=== PATIENT | female | born 2005 | race Caucasian/White ===

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

== ENCOUNTER 2024-01-14 06:03 | Day surgery (SDC) | payer BC, SELFPAY ==
[2023-12-31 10:36] VITALS: BP 114/74; PULSE 99; TEMP 36.5; O2SAT 100; BMI 36.7
[2024-01-14] VITALS (23 sets, daily range): BP systolic 98–146; BP diastolic 48–107; PULSE 90–158; TEMP 36.4–36.6; O2SAT 92–100; BMI 36.8
--- OUTSIDE RECORDS SUMMARY | 2024-01-14 06:06 | XMS_ITS | CCD ---
Author Organization [facility] Care Team Providers Care Lost Charge Card Clerk Name Role Phone Damian Jas Hewitt Primary Care Provider MANA AGUILAR Referring Unavailable JAS SALGADO Primary Care Unavailable MANA AGUILAR Referring Unavailable DAMIAN JAS Hewitt Primary Care Unavailable Schwmabler, Aime Unavailable Gerald Barboza Unavailable Power Ny Attending Unavailable KEVIN STOKES Primary Care Unavailable Power Ny Admitting Unavailable ELIJAH Rodriguez Admitting Unavailable ELIJAH Rodriguez Attending Unavailable KEVIN STOKES Primary Care Unavailable Denver Aime E Primary Care Unavailable ELIJAH Rodriguez Admitting Unavailable ELIJAH Rodriguez Attending Unavailable KATHLEEN LUNDBERG Admitting Unavailable DIVYA, KEVIN A Primary Care Unavailable KATHLEEN LUNDBERG Attending Unavailable Africa Del Cid L Admitting Unavailable Africa Del Cid L Attending Unavailable KEVIN STOKES A Primary Care Unavailable KATHLEEN LUNDBERG Admitting Unavailable KATHLEEN LUNDBERG Attending Unavailable KEVIN STOKES A Primary Care Unavailable KEVIN STOKES A Primary Care Unavailable Spasic PA, Levy Admitting Unavailabl e Spasic PA, Levy Attending Unavailabl e KEVIN STOKES A Primary Care Unavailable Spasic PA, Levy Admitting Unavailabl e Spasic PA, Levy Attending Unavailabl e DO Kevin Stokes Primary Care Provider [phone] DO Braxton Toussaint Attending Provider Braxton Toussaint Attending Unavailable Braxton Toussaint Admitting Unavailable Braniesheroni, Kevin Primary Care Unavailable Schwerer DO, Aime E Primary Care Provider [phone] [facility] [employer] INST[employer], [facility] Primary Care Provider Catarina [employer]ST[employer], [facility] Primary Care Provider CATARINA, ANITA Primary Care Unavailable YESI PIZANO Attending Unavail able CATARINA, ANITA Primary Care Unavailable PRENDES, LATASHA L Referring Unavailable SCHWERER, AIME E Primary Care Unavailable PRENDES, LATASHA L Attending Unavailable JAS SALGADO Primary Care Unavailable PRENDES, LATASHA L Attending Unavailable CATARINA, ANITA Primary Care Unavailable PRENDES, LATASHA L Referring Unavailable CATARINA, ANITA Primary Care Unavailable PRENDES, LATASHA L Referring Unavailable CATARINA, ANITA Primary Care Unavailable PRENDES, LATASHA L Attending Unavailable SCHWERER, AIME E Primary Care Unavailable PRENDES, LATASHA L Admitting Unavailable CATARINA, ANITA L Attending Unavailable ASIF STOKESEW A Referring Unavailable CATARINA, ANITA L Primary Care Unavailable ALVERTO TOUSSAINT Attending Unavailable CATARINA, ANITA L Referring Unavailable CATARINA, ANITA L Primary Care Unavailable CATARINA, ANITA L Attending Unavailable CATARINA, ANITA L Referring Unavailable CATARINA, ANITA L Primary Care Unavailable CATARINA, ANITA L Referring Unavailable CATARINA, ANITA L Primary Care Unavailable ADOLFO JAIN Attending Unavailable ADOLFO JAIN Attending Unavailable ADOLFO JAIN Attending Unavailable Allergies Allergy Classification Reported Allergen(s) Allergy Type Date of Onset Reaction(s) Facility (1 source) No Known Medication Allergies; Translations: [No Known Medication Allergies] Propensity to adverse reactions to drug (disorder) [facility] Repository Medications Current Medications Medication Drug Class(es) Dates Sig (Normalized) Sig (Original) 0.25 MG, 0.5 MG Dose 3 ML semaglutide 0.68 MG/ML Pen Injector [Ozempic] (3 sources) Start: 01-15-2023 inject 0.25 mg by subcutaneous injection every week, then inject 0.5 mg by subcutaneous injection every week Ozempic (0.25 or 0.5 MG/DOSE) 2 MG/3ML as directed Subcutaneous weekly for 30 days 0.25mg x weekly x 4 weeks then 0.5mg weekly Jan, Active cephalexin 500 mg oral capsule (1 source) Cephalosporin Antibacterial Start: 01-30-2023 take 1 capsule by mouth every twelve hours Cephalexin 500 MG 1 capsule Orally every 12 hrs for 10 days Jan, Active hydrOXYzine pamoate 25 mg oral capsule (9 sources) Antihistamine Start: 02-05-2023 take 1 capsule by mouth every twenty-four hours Vistaril 25 MG 1 capsule at bedtime as needed Orally Once a day Jan, Active Comment on above: Take 25 mg by mouth once daily. naproxen 500 mg oral tablet (1 source) Nonsteroidal Anti-inflammatory Drug Start: 12-08-2017 take 1 tablet by mouth twice daily Naproxen (Naprosyn) 500 mg tablet Active 500 MG PO Twice daily December 08, 2017 12:00am omeprazole 40 mg delayed release oral capsule (8 sources) Proton Pump Inhibitor Start: 04-02-2023 take 1 capsule by mouth once daily Omeprazole 40 MG 1 capsule 30 minutes before morning meal Orally Once a day for 30 days Mar, Active Comment on above: Take 40 mg by mouth once daily. ondansetron 4 mg disintegrating oral tablet (10 sources) Serotonin-3 Receptor Antagonist Start: 04-02-2023 take 1 tablet by mouth three times daily as needed for nausea Ondansetron 4 MG 1 tablet on the tongue and allow to dissolve Orally TID PRN nausea for 5 days Mar, Active Start: 12-08-2017 Ondansetron (Z ofran Odt) 4 mg Tablet,Disintegrating Active 4 MG PO 2-3 TIMES PER DAY December 08, 2017 12:00am Start: 12-08-2017 End: 12-13-2017 take 1 tablet by mouth every eight hours Ondansetron Hcl (Zofran) 4 mg tablet Discontinued 4 MG PO Q8H 15 December 08, 2017 12:00am December 13, 2017 12:01am Comment on above: Take 4 mg by mouth e very 8 hours as needed for nausea/vomiting. sertraline 50 mg oral tablet (8 sources) Serotonin Reuptake Inhibitor Start: take 1 tablet by mouth every twenty-four hours Zoloft 50 MG 1 tablet Orally Once a day for 90 days Mar, Active Start: 04-02-2023 take 0.5 tablet by m outh once daily, then take 1 tablet by mouth once daily Zoloft 50 MG as directed Orally Once a day for 30 days 0.5 tablets PO daily x 1 week then 1 full tablet daily. Mar, Active Comment on above: Take 50 mg by mouth once daily. Completed/Discontinued Medications Medication Drug Class(es) Dates Sig (Normalized) Sig (Original) Ethinyl Estradiol / norgestimate (10 sources) Progestin, Estrogen Start: 06-02-2018 End: 08-25-2023 Norgestimate-Ethin yl Estradiol 0.18/0.215/0.25 mg-35 mcg (28) tab Start: 06-02-2018 Norgestimate-E thinyl Estradiol 0.18/0.215/0.25 mg-35 mcg (28) tab levothyroxine sodium 0.15 mg oral tablet (3 sources) l-Thyroxine Start: 09-04-2023 End: 11-03-2023 take 1 tablet by mouth once daily in the morning levothyroxine (SYNTHROID) 150 mcg tablet Take 1 tablet by mouth daily at 6 am. 30 tablet 0 09/04/2023 10/04/2023 Discontinued nitrofurantoin, macrocrystals 25 mg / nitrofurantoin, monohydrate 75 mg oral capsule (1 source) Nitrofuran Antibacterial Start: 09-09-2023 End: 09-14-2023 take 1 capsule by mouth twice daily nitrofurantoin monohydrate and macrocrystal (MACROBID) 100 mg capsule Take 1 capsule by mouth two times a day for 5 days. 10 capsule 0 09/09/2023 09/14/2023 oxyCODONE hydrochloride 5 mg oral tablet (1 source) Opioid Agonist Start: 09-04-2023 End: 09-09-2023 take 1 tablet by mouth every six hours as needed oxyCODONE IR (ROXICODONE) 5 mg immediate release tablet Indications: Post-op pain Take 1 tablet by mouth every 6 hours as needed for up to 5 days. 15 tablet 0 09/04/2023 09/09/2023 Problems Active Problems Problem Classification Problem Date Documented Date Episodic/Chronic Acute and chronic tonsillitis (13 sources) Hypertrophy of tonsils; Translations: [Hypertrophy of tonsils] Onset: 05-13-2017 06-23-2018 Chronic Anxiety disorders (8 sources) Generalized anxiety disorder; Translations: [Generalized anxiety disorder] Onset: 08-25-2023 Chronic Complications of surgical procedures or medical care (2 sources) Postprocedural hypothyroidism; Translations: [Postprocedural hypothyroidism] Onset: 10-28-2023 Chronic Esophageal disorders (12 sources) Gastroesophageal reflux disease; Translations: [Gastro-esophageal reflux disease without esophagitis] Onset: 08-25-2023 Chronic Fever of unknown origin (1 source) Fever Onset: 09-28-2023 Episodic Menstrual disorders (5 sources) Irregular periods; Translations: [Irregular menstruation, unspecified] Chronic Mood disorders (11 sources) Mild major depression; Translations: [Major depressive disorder, single episode, mild] Onset: 08-25-2023 Chronic Mycoses (1 source) Tinea pedis; Translations: [Tinea pedis] Onset: 10-28-2023 Episodic Other endocrine disorders (1 source) Polycystic ovary syndrome; Translations: [Polycystic ovarian syndrome] 08-18-2023 Chronic Other endocrine disorders (1 source) Polycystic ovarian syndrome; Translations: [PCOS (polycystic ovarian syndrome)] Onset: 08-18-2023 Chronic Other female genital disorders (5 sources) Female genital organ symptoms; Translations: [Unspecified condition associated with female genital organs and menstrual cycle] Episodic Other lower respiratory disease (1 source) Cough Onset: 09-28-2023 Episodic Other nervous system disorders (1 source) Other acute postprocedural pain; Translations: [Post-op pain] Onset: 09-03-2023 Episodic Other nutritional; endocrine; and metabolic disorders (15 sources) Obese; Translations: [Obesity, unspecified] Onset: 04-15-2022 Chronic Other nutritional; endocrine; and metabolic disorders (2 sources) Obesity, unspecified; Translations: [Obesity, pediatric, BMI greater than or equal 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] Onset: 04-15-2022 Chronic Other nutritional; endocrine; and metabolic disorders (5 sources) Body mass index 40+ - severely obese; Translations: [Body mass index (BMI) 40.0-44.9, adult] Chronic Other nutritional; endocrine; and metabolic disorders (2 sources) Body mass index (BMI) 40.0-44.9, adult Chronic Other nutritional; endocrine; and metabolic disorders (1 source) Other obesity due to excess calories; Translations: [Other obesity due to excess calories] Onset: 08-25-2023 Chronic Other nutritional; endocrine; and metabolic disorders (1 source) Body mass index (BMI) 38.0-38.9, adult; Translations: [Body mass index (BMI) 38.0-38.9, adult] Onset: 08-25-2023 Chronic Other nutritional; endocrine; and metabolic disorders (1 source) Personal history of other endocrine, nutritional and metabolic disease; Translations: [History of thyroid nodule] Onset: 04-15-2022 Episodic Other nutritional; endocrine; and metabolic disorders (1 source) Abnormal weight gain Episodic Other skin disorders (1 source) Localized swelling, mass and lump, neck Episodic Other upper respiratory disease (1 source) Pain in throat Onset: 09-28-2023 Episodic Other upper respiratory disease (1 source) Nasal congestion Onset: 09-28-2023 Episodic Other upper respiratory infections (1 source) Acute frontal sinusitis, unspecified; Translations: [Acute frontal sinusitis, unspecified] Onset: 09-28-2023 Episodic Residual codes; unclassified (2 sources) High risk heterosexual behavior; Translations: [High risk heterosexual behavior] Onset: 10-28-2023 Episodic Residual codes; unclassified (1 source) Other general symptoms and signs; Translations: [Other general symptoms and signs] Onset: 09-28-2023 Episodic Thyroid disorders (20 sources) Thyroid nodule; Translations: [Nontoxic single thyroid nodule] Onset: 06-23-2018 06-23-2018 Chronic Unclassified (1 source) Annual Exam Onset: 10-28-2023 Unclassified (1 source) Acute candidiasis of vulva and vagina; Translations: [Acute candidiasis of vulva and vagina] Onset: 09-28-2023 Unclassified (1 source) Generalized Body Aches Onset: 09-28-2023 Unclassified (1 source) New Patient Onset: 08-25-2023 Past or Other Problems Problem Classification Problem Date Documented Da te Episodic/Chronic Other nervous system disorders (13 sources) History of otitis media; Translations: [Personal history of other diseases of the nervous system and sense organs] Onset: 05-13-2017 06-23-2018 Episodic Other nutritional; endocrine; and metabolic disorders (17 sources) H/O: thyroid disorder; Translations: [Personal history of other endocrine, nutritional and metabolic disease] Onset: 04-15-2022 Episodic Other nutritional; endocrine; and metabolic disorders (2 sources) Body mass index (BMI) pediatric, greater than or equal 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; Translations: [Obesity, pediatric, BMI greater than or equal 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] Onset: 04-15-2022 Episodic Other screening for suspected conditions (not mental disorders or infectious disease) (18 sources) Thyroid function tests abnormal; Translations: [Other specified abnormal findings of blood chemistry] Onset: 04-15-2022 Episodic Otitis media and related conditions (13 sources) Dysfunction of bilateral eustachian tubes; Translations: [Other specified disorders of Eustachian tube, bilateral] Onset: 05-13-2017 06-23-2018 Episodic Residual codes; unclassified (13 sources) FH: Thyroid disorder; Translations: [Family history of other endocrine, nutritional and metabolic diseases] Onset: 06-23-2018 06-23-2018 Episodic Results Test Name Value Interpretation Reference Range Facility CHLAMYDIA/GC PCR, Uon 2023 CHLAMYDIA/GC PCR, U SPECIMEN SOURCE CLEAN CATCH MIDSTREAM URINE CHLAMYDIA DNA(PCR) Negative (qualifier value) Chlamydia trachomatis not detected by nucleic acid amplification. This does not exclude the possibility of infection because results are dependent on adequate specimen collection. GONORRHOEAE DNA(PCR) Negative (qualifier value) Neisseria gonorrhoeae not detected by nucleic acid amplification. This does not exclude the possibility of infection because results are dependent on adequate specimen collection. Normal [facility] Comment on above: Performed By: #### C #### [facility] ([id number]) [address], [address] [place] [address] COMPREHENSIVE METABOLIC PANE [place] 10-28-2023 Albumin [Mass/Vol] 4.4 g/dL Normal 3.2-5.3 [facility] Comment on above: Performed By: #### [place], 59921-6, TSHR, 3024-7 #### [facility] ([id number]) [address], [address] [place] [address] ALP [Catalytic activity/Vol] 64 U/L Normal 39-130 [facility] Comment on above: Performed By: #### C VINCENT, 71154-9, TSHR, 4-7 #### [facility] ([id number]) [address], [address] [place] [address] ALT [Catalytic activity/Vol] 18 U/L Normal 0-31 [facility] Comment on above: Performed By: #### C VINCENT, 51748-9, TSHR, 3023-7 #### [facility] ([id number]) [address], [address] [place] [address] Anion gap [Moles/Vol] 10 mmol/L Normal 5-15 [facility] Comment on above: Performed By: #### C VINCENT, 88264-2, TSHR, 3023-7 #### [facility] ([id number]) [address], [address] [place] [address] AST [Catalytic activity/Vol] 16 U/L Normal 0-41 [facility] Comment on above: Performed By: #### C VINCENT, 86049-4, TSHR, 7 #### [facility] ([id number]) [address], [address] [place] [address] Bilirubin [Mass/Vol] 0.4 mg/dL Normal 0.3-1.2 [facility] Comment on above: Performed By: #### C VINCENT, 19331-5, TSHR, 7 #### [facility] ([id number]) [address], [address] [place] [address] Calcium [Mass/Vol] 9.8 mg/dL Normal 8.5-10.5 [facility] Comment on above: Performed By: #### C VINCENT, 20149-8, TSHR, 3023-7 #### [facility] ([id number]) [address], [address] [place] [address] Chloride [Moles/Vol] 102 mmol/L Normal 98-109 [facility] Comment on above: Performed By: #### C VINCENT, 45630-7, TSHR, 7 #### [facility] ([id number]) [address], [address] [place] [address] CO2 [Moles/Vol] 25 mmol/L Normal 22-32 [facility] Comment on above: Performed By: #### C VINCENT, 06526-2, TSHR, 7 #### [facility] ([id number]) [address], [address] [place] [address] Creatinine [Mass/Vol] 0.65 mg/dL Normal 0.40-1.00 [facility] Comment on above: Result Comment: METH OD TRACEABLE TO IDMS STANDARD Performed By: #### C VINCENT, 69318-8, TSHR, 7 #### [facility] ([id number]) [address], [address] [place] [address] eGFR (CKD-EPI) NON-RACE DEPENDENT >90 Normal >59 [facility] Comment on above: Result Comment: Reported eGFR is based on the CKD-EPI 2020 equation that does not use a race coefficient. Performed By: #### C VINCENT, 57363-6, TSHR, 7 #### [facility] ([id number]) [address], [address] [place] [address] Glucose [Mass/Vol] 80 mg/dL Normal 65-99 [facility] Comment on above: Performed By: #### C VINCENT, 72598-3, TSHR, 7 #### [facility] ([id number]) [address] [place] [address] Potassium [Moles/Vol] 4.1 mmol/L Normal 3.5-5.0 [facility] Comment on above: Performed By: #### C VINCENT, 77183-9, TSHR, 7 #### [facility] ([id number]) [address], [address] [place] [address] Protein [Mass/Vol] 7.3 g/dL Normal 6.0-8.0 [facility] Comment on above: Performed By: #### C MP, 62320-6, TSHR, 3024-7 #### [facility] ([id number]) [address], [address] [place] [address] Sodium [Moles/Vol] 137 mmol/L Normal 134-146 [facility] Comment on above: Performed By: #### C VINCENT, 16882-1, TSHR, 3024-7 #### [facility] ([id number]) [address] [facility] [address] [place] [address] Urea nitrogen [Mass/Vol] 12 mg/dL Normal 5-23 [facility] Comment on above: Performed By: #### C VINCENT, 51911-1, TSHR, 3024-7 #### [facility] ([id number]) [address], [address] [place] [address] FREE T4on 10-28-2023 Free T4 [Mass/Vol] 0.73 ng/dL Normal 0.61-1.60 [facility] Comment on above: Performed By: #### C VINCENT, 23824-9, TSHR, 3024-7 #### [facility] ([id number]) [address] [place] [address] Lipid 1996 panelon Cholesterol [Mass/Vol] 157 mg/dL Normal 150-200 [facility] Comment on above: Performed By: #### C VINCENT, 19370-0, TSHR, 3024-7 #### [facility] ([id number]) [address] [address] [place] [address] Cholesterol in HDL [Mass/Vol] 56 mg/dL Normal >39 [facility] Comment on above: Result Comment: HDL <40 mg/dL - High Risk HDL > or = 40mg/dL- Desirable HDL >60 mg/dL - Negative Risk Performed By: #### Joseline KAUR, 71831-2, TSHR, 3024-7 #### [facility] ([id number]) [address] [facility] [address] [place] [address] Cholesterol in LDL [Mass/Vol] 85 mg/dL Normal <130 [facility] Comment on above: Result Comment: LDL <100 mg/dL - Desirable LDL >160 mg/dL - High Risk Performed By: #### Joseline KAUR, 87249-6, TSHR, 3024-7 #### [facility] ([id number]) [address] [address] [place] [address] Cholesterol in VLDL [Mass/Vol] 16 mg/dL Normal 0-30 [facility] Comment on above: Performed By: #### Joseline KAUR, 69806-7, TSHR, 3024-7 #### [facility] ([id number]) [address] [address] [place] [address] CHOLESTEROL:HDL 2.8 Normal 1.0-5.0 [facility] Comment on above: Performed By: #### Joseline KAUR, 00804-5, TSHR, 3024-7 #### [facility] ([id number]) [address] [address] [place] [address] Triglyceride [Mass/Vol] 80 mg/dL Normal 27-150 [facility] Comment on above: Performed By: #### Joseline KAUR, 40421-7, TSHR, 3024-7 #### [facility] ([id number]) [address] [place] [address] TRICHOMONAS PCRon 10-28-2023 TRICHOMONAS PCR SPECIMEN SOURCE CLEAN CATCH MIDSTREAM URINE TRICHOMONAS PCR Not detected (qualifier value) Trichomonas vaginalis not detected NOTE Assay methodology is nucleic acid amplification by real-time PCR for detection of Trichomonas vaginalis DNA performed on [employer] Instrument System. Normal [facility] Comment on above: Performed By: #### T RKPCR #### [facility] ([id number]) [address], [address] [place] [address] TSH WITH REFLEXon 10-28-2023 TSH 22.23 uIU/mL High 0.49-4.67 [facility] Comment on above: Performed By: #### C MP, 66621-2, TSHR, 3024-7 #### [facility] ([id number]) [address], [address] [place] [address] CNOVon 09-09-2023 CNOV Office Visit (OTMNCA ) SHEYLA LEA ([id number]) 3 F Date Time Provider Department 09/09/23 4:00 PM LATASHA BOBO OTMNCA During your visit today, we recorded the following information about you: Georgia Lazcano OCCA 09/09/2023 4:08 PM Signed Tobacco Use: Never Was smoking cessation packet given? N/A - Patient is a non-smoker or quit >1 year ago. Was a referral initiated?N/A Patient is a non-smoker Latasha Bobo MD 10/15/2023 12:28 AM Signed [facility] Note CC: Post op of total thyroidectomy performed on 09/03/23 HPI: Patient is a 18 year old female with thyroid nodules with pain and tenderness along the neck. She underwent total thyroidectomy 09/02. She has been recovering relatively well though she does still have some pain along the incision. Voice has been raspy. No dysphagia. Pathology: FINAL DIAGNOSIS A. Pretracheal lymph node, excision: - Fibroadipose tissue with one benign lymph node. B. 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 Current Outpatient Medications Medication Sig Dispense Refill levothyroxine (SYNTHROID) 150 mcg tablet Take 1 tablet by mouth daily at 6 am. 30 tablet 0 omeprazole (PRILOSEC) 40 mg capsule Take 40 mg by mouth once daily. ondansetron (ZOFRAN) 4 mg tablet Take 4 mg by mouth every 8 hours as needed for nausea/vomiting. hydrOXYzine pamoate (VISTARIL) 25 mg capsule Take 25 mg by mouth once daily. sertraline (ZOLOFT) 50 mg tablet Take 50 mg by mouth once daily. nitrofurantoin monohydrate and macrocrystal (MACROBID) 100 mg capsule Take 1 capsule by mouth two times a day for 5 days. 10 capsule 0 oxyCODONE IR (ROXICODONE) 5 mg immediate release tablet Take 1 tablet by mouth every 6 hours as needed for up to 5 days. (Patient not taking: Reported on 09/09/2023) 15 tablet 0 No current facility-administered medications for this visit. EXAM: Constitutional - General Appearance: well developed, well nourished, without obvious deformities Communication: speaks with a normal voice without hoarseness Head AND Face - Overall: no obvious scars, lesions or masses Facial strength: normal and equal bilaterally Oral Cavity and oropharynx: mucosa, hard and soft palates, tongue, tonsil area, posterior pharyngeal wall, lips and gums are without lesions Neck: appears symmetric, and on palpation is without masses or lymphadenopathy. Well-healing midline neck scar with ongoing erythema Neuro: CN III - CN XII grossly intact Procedure: Flexible Laryngoscopy Pre-procedure diagnosis: S/p total thyroidectomy Post-procedure diagnosis: same Indications: Evaluation of the larynx and immediate subglottis - unable to be visualized by mirror examination Anesthesia: Lidocaine and Phenylephrine Procedure: Topical anesthesia and vasoconstriction was applied with spray to both sides of the nose. After waiting an appropriate period of time for anesthesia/vasoconstriction to become effective, a flexible laryngoscope was passed through the left nasal passage. Findings: The nasal cavity and nasopharynx were normal. No masses or lesions were visualized at the base of tongue, vallecula, epiglottis, aryepiglottic folds, pyriform sinuses, and lateral pharyngeal dumont. True vocal cord movement was intact bilaterally. The patient's airway was widely patent with no evidence of obstruction. Patient tolerated the procedure well, and there were no complications. The procedure was performed by me. I was present for the entirety of the endoscopy/procedure and discussed the results with the patient. Latasha Bobo MD ASSESSMENT: Sheyla Lea is a 18 year old female with a history of Hellen's thyroiditis now s/p total thyroidectomy. Final pathology benign. PLAN AND RECOMMENDATIONS: Follow-up in 3 months Discussed scar care. Vocal cords fully mobile on scope Synthroid management per endocrinology Brenda Mendoza for the service of Latasha Bobo MD Otolaryngology Staff Attestation Details as per Dr. Mendoza's note which I have reviewed and edited. I performed a history and physical examination of the patient and discussed the patient's management with the resident. I agree with the documented findings and treatment plan. Latasha Bobo MD Allergies As of Date: 09/09/2023 (No Known Allergies) Date Reviewed: 09/09/2023 Reviewed by: Georgia Lazcano OCCA - Fully Assessed Reason for Visit: Follow Up [171] Cmt: Post op Primary Visit Diagnosis:Hypothyroidism (acquired) [E03.9] Order(s):[] nitrofurantoin monohydrate and macrocrystal (MACROBID) 100 mg capsuleTake 1 capsule by mouth two times a day for 5 days.Disp: 10 capsuleRfl: 0 THYROID STIMULATING HORMONE [SQTSH] Order #: [id number] FUTURE PTH INTACT [SQPTHI] Order #: [id number] FU (more content not included)... Normal [facility] Basic metabolic 2000 panelon 09-04-2023 Anion gap [Moles/Vol] 12 mmol/L Normal 9-18 [facility] Comment on above: Order Comment: Speci men Type: BLOOD SPECIMENOrdering Facility: [facility] Address: [address] [place] [address] [place], [place] [address] Performed By: #### 2 777-1, 80672-4, ####[facility] LABCLIA [id number] [address] [address] [place] Calcium [Mass/Vol] 8.7 mg/dL Normal 8.5-10.2 [facility] Comment on above: Order Comment: Speci men Type: BLOOD SPECIMENOrdering Facility: [facility] Address: [address] [place], [place] [id number] Performed By: #### 2 777-1, , ####[facility] LABCLIA [id number] [address] [address] [place] Chloride [Moles/Vol] 106 mmol/L High 97-105 [facility] Comment on above: Order Comment: Speci men Type: BLOOD SPECIMENOrdering Facility: [facility] Address: [address] [place] [address] Performed By: #### 2 777-1, , ####[facility] LABIA [id number] [place] [id number] [place] CO2 [Moles/Vol] 21 mmol/L Low 22-30 [facility] Comment on above: Order Comment: Speci men Type: BLOOD SPECIMENOrdering Facility: [facility] Address: [address] [place] [address] Performed By: #### 2 777-1, , ####[facility] LABIA [id number] [address] [address] [place] Creatinine [Mass/Vol] 0.59 mg/dL Normal 0.58-0.96 [facility] Comment on above: Order Comment: Speci men Type: BLOOD SPECIMENOrdering Facility: [facility] Address: [address] [place], [place] [address] Performed By: #### 2 777-1, 68046-9, ####[facility] LABCLIA [id number] [place] [address] [place] Creatinine and Glomerular filtration rate.predicted panel (S/P/Bld) 133 mL/min/1.73m??? Normal >=60 [facility] Comment on above: Order Comment: Harriet abernathy Type: BLOOD SPECIMENOrdering Facility: [facility] Address: [address] [place] [address] Result Comment: Akila mated Glomerular Filtration Rate (eGFR) is calculated using the 2020 CKD-EPI creatinine equation. This equation utilizes serum creatinine, sex, and age as parameters. The creatinine assay has traceable calibration to isotope dilution-mass spectrometry. Refer to KDIGO guidelines for clinical interpretation. In patients with unstable renal function, e.g. those with acute kidney injury, the eGFR may not accurately reflect actual GFR. Performed By: #### 2 777-1, 47592-1, ####[facility] LABCLIA [id number] [place] [address] [place] Glucose [Mass/Vol] 85 mg/dL Normal 74-99 [facility] Comment on above: Order Comment: Harriet abernathy Type: BLOOD SPECIMENOrdering Facility: [facility] Address: [address] [place] [address] Result Comment: The [place] [employer] (ADA) provides guidance for cutoff values for fasting glucose and random glucose. The ADA defines fasting as no caloric intake for at least 8 hours. Fasting plasma glucose results between 100 to 125 mg/dL indicate increased risk for diabetes (prediabetes). Fasting plasma glucose results greater than or equal to 126 mg/dL meet the criteria for diagnosis of diabetes. In the absence of unequivocal hyperglycemia, results should be confirmed by repeat testing. In a patient with classic symptoms of hyperglycemia or hyperglycemic crisis, random plasma glucose results greater than or equal to 200 mg/dL meet the criteria for diagnosis of diabetes. Reference: Standards of Medical Care in Diabetes 2016, [place] [employer]. Diabetes Care. 2016.39(Suppl 1). Performed By: #### 2 777-1, 25391-7, ####[facility] LABCLIA [id number] [place] [address] [place] Potassium [Moles/Vol] 3.9 mmol/L Normal 3.7-5.1 [facility] Comment on above: Order Comment: Speci men Type: BLOOD SPECIMENOrdering Facility: [facility] Address: [address] [place] [address] Performed By: #### 2 777-1, 34383-6, ####[facility] LABIA [id number] [place] [address] [place] Sodium [Moles/Vol] 139 mmol/L Normal 136-144 [facility] Comment on above: Order Comment: Speci men Type: BLOOD SPECIMENOrdering Facility: [facility] Address: [address] [place] [address] Performed By: #### 2 777-1, 04727-7, ####[facility] LABIA [id number] [place] [address] [place] Urea nitrogen [Mass/Vol] 6 mg/dL Low 7-21 [facility] Comment on above: Order Comment: Speci men Type: BLOOD SPECIMENOrdering Facility: [facility] Address: [address] [place] [address] Performed By: #### 2 777-1, 88825-8, 07211-2 ####[facility] LABIA [id number] [place] [address] [place] CBC panel Auto (Bld)on 09-03 Erythrocyte distribution width (RBC) [Ratio] 14.4 % Normal 11.5-15.0 [facility] Comment on above: Order Comment: Speci men Type: BLOOD SPECIMENOrdering Facility: [facility] Address: [address] [place] [address] Performed By: #### 5 8410-2 ####[facility] LABIA [id number] [address] [place] Hematocrit (Bld) [Volume fraction] 38.9 % Normal 36.0-46.0 [facility] Comment on above: Order Comment: Speci men Type: BLOOD SPECIMENOrdering Facility: [facility] Address: [address] [place] [address] Performed By: #### 5 8410-2 ####[facility] LABCLIA [id number] [place] [address] [place] Hemoglobin (Bld) [Mass/Vol] 12.4 g/dL Normal 11.5-15.5 [facility] Comment on above: Order Comment: Speci men Type: BLOOD SPECIMENOrdering Facility: [facility] Address: [address] [place] [address] Performed By: #### 5 8410-2 ####[facility] LABCLIA [id number] [place] [address] [place] MCH (RBC) [Entitic mass] 25.6 pg Low 26.0-34.0 [facility] Comment on above: Order Comment: Speci men Type: BLOOD SPECIMENOrdering Facility: [facility] Address: [address] [place] [address] Performed By: #### 5 8410-2 ####[facility] LABIA [id number] [place] [address] [place] MCHC (RBC) [Mass/Vol] 31.9 g/dL Normal 30.5-36.0 [facility] Comment on above: Order Comment: Speci men Type: BLOOD SPECIMENOrdering Facility: [facility] Address: [address] [place] [address] Performed By: #### 5 8410-2 ####[facility] LABCLIA [id number] [place] [address] [place] MCV (RBC) [Entitic vol] 80.2 fL Normal 80.0-100.0 [facility] Comment on above: Order Comment: Speci men Type: BLOOD SPECIMENOrdering Facility: [facility] Address: [address] [place] [address] Performed By: #### 5 8410-2 ####[facility] LABIA [id number] [place] [address] [place] Nucleated RBC (Bld) [#/Vol] 10*3/uL Normal <0.01 [facility] Comment on above: Order Comment: Speci men Type: BLOOD SPECIMENOrdering Facility: [facility] Address: [address] [place] [address] Performed By: #### 5 8410-2 ####[facility] LABIA [id number] [place] [address] [place] Platelet mean volume (Bld) [Entitic vol] 11.2 fL Normal 9.0-12.7 [facility] Comment on above: Order Comment: Speci men Type: BLOOD SPECIMENOrdering Facility: [facility] Address: [address] [place] [address] Performed By: #### 5 8410-2 ####[facility] LABIA [id number] [place] [address] [place] Platelets (Bld) [#/Vol] 241 10*3/uL Normal 150-400 [facility] Comment on above: Order Comment: Speci men Type: BLOOD SPECIMENOrdering Facility: [facility] Address: [address] [place] [address] Performed By: #### 5 8410-2 ####[facility] LABIA [id number] [place] [address] [place] RBC (Bld) [#/Vol] 4.85 10*6/uL Normal 3.90-5.20 [facility] Comment on above: Order Comment: Speci men Type: BLOOD SPECIMENOrdering Facility: [facility] Address: [address] [place] [address] Performed By: #### 5 8410-2 ####[facility] LABCLIA [id number] [address] [address] [place] WBC (Bld) [#/Vol] 6.31 10*3/uL Normal 3.70-11.00 [facility] Comment on above: Order Comment: Speci men Type: BLOOD SPECIMENOrdering Facility: [facility] Address: [address] [place] [address] Performed By: #### 5 8410-2 ####[facility] LABIA [id number] [address] [address] [place] Magnesium SerPl-ncon 09-03 Magnesium [Mass/Vol] 2.1 mg/dL Normal 1.7-2.3 [facility] Comment on above: Order Comment: Speci men Type: BLOOD SPECIMENOrdering Facility: [facility] Address: [address] [place] [address] Performed By: #### 2 777-1, 34317-6, ####[facility] [id number] [place] [id number] [place] Phosphate SerPl-mCncon 09-03 Phosphate [Mass/Vol] 3.3 mg/dL Normal 2.7-4.8 [facility] Comment on above: Order Comment: Speci men Type: BLOOD SPECIMENOrdering Facility: [facility] Address: [address] [place] [address] Performed By: #### 2 777-1, 18681-1, ####[facility] LABIA [id number] [place] [id number] [place] ANES POSTPROC EVALon 024 ANES POSTPROC EVAL HNO ID: [id number] Author: ITZEL ANTONY MD Service: ? Author Type: Physician Type: Anesthesia Postprocedure Evaluation Filed: 09/03/2023 12:57 Note Text: POST ANESTHESIA EVALUATION NOTE : 2005 Procedure Summary Date: 09/03/23 Room / Location: [address] [facility] Anesthesia Start: 721 Anesthesia Stop: 1223 Procedure: THYROIDECTOMY TOTAL (Bilateral: Thyroid) Diagnosis: Thyroiditis (Thyroiditis [E06.9]) Surgeons: Latasha Bobo MD Responsible Provider: Itzel Antony MD Anesthesia Type: general ASA Status: 3 Anesthesia Type: general Airway Type: ETT Last Vitals Vitals Value Taken Time BP 121/75 09/03/23 1245 Temp 36 09/03/23 1257 Pulse 91 09/03/23 1256 Resp 2 09/03/23 1224 SpO2 98 % 09/03/23 1256 Vitals shown include unfiled device data. Post Anesthesia Patient Status Patient Evaluation: PACU. PACU/ICU Patient Condition: stable. Anticipated Disposition: inpatient floor planned admission. Neurological Status: aware and responsive. Pulmonary Status: breathing comfortably on supplemental oxygen Airway Control: returned to baseline unsupported. Cardiovascular Status: stable. Pain Management: clinically adequate Postoperative Hydration: acceptable. Intraoperative Events: no significant anesthesia events Post Operative Nausea/Vomiting Status: no significant post operative nausea or vomiting Recommendation: continue current plan of care. Anesthesia Observations No Documentation SIGNATURE: Itzel Antony MD PATIENT NAME: Sheyla Lea DATE: September 03, 2023 TIME: 12:57 PM CSN: [id number] Normal [facility] ANES PRE-OPon 09-03-2023 ANES PRE-OP HNO ID: [id number] Author: ITZEL ANTONY MD Service: ? Author Type: Physician Type: Anesthesia Preprocedure Evaluation Filed: 09/03/2023 07:25 Note Text: ANESTHESIOLOGY DAY OF SURGERY NOTE : 2005 Procedure Information Anesthesia Start Date/Time: 09/03/23721 Procedure: THYROIDECTOMY TOTAL (Bilateral: Thyroid) Location: [address] [facility] Surgeons: Latasha Bobo MD Estimated body mass index is 38.55 kg/m? as calculated from the following: Height as of 08/25/23: 160 cm (5' 3 ). Weight as of 08/25/23: 98.7 kg (217 lb 9.5 oz). Most recent hematocrit and potassium results: Hematocrit 41.4 08/25/2023 Potassium 4.0 08/25/2023 Relevant Problems GI (+) GERD (gastroesophageal reflux disease) NEURO-PSYCH (+) History of otitis media (+) History of thyroid nodule Other (+) Tonsillar hypertrophy I - PHYSICAL EVALUATION AIRWAY Patient intubated: No. Tracheostomy tube not present Mallampati: I. TM distance: >3 FB. Neck ROM: full ROM without neurological symptoms. Mouth opening: adequate. Short neck: no. Thick neck: no DENTAL Dental findings: teeth intact. II - ANESTHESIA PLAN ASA Score: 3 Anesthetic Plan: general Airway type: ETT NPO Status: adequate Beta Katelyn Monitoring Plan Monitoring plan: standard ASA. Post Procedure Analgesic Plan Postoperative analgesic plan: multimodal analgesia and per surgical service. Informed Consent Anesthetic risks, benefits, alternatives, personnel and consent discussed: yes. Patient / Responsible Alliance Party agrees to proceed: yes Patient / Surrogate agrees to blood products: Yes Potential Anesthesia issues that may suggest increased risk of complications or contraindication to planned procedure: potential difficult IV access. Vitals Value Taken Time BP 95/50 09/03/23 0552 Pulse 80 09/03/23 0552 Resp 18 09/03/23 05 Temp 36.7 ?C (98.1 ?F) 09/03/23 0552 SpO2 98 % 09/03/23 0552 Facility-Administered Medications as of 09/03/2023 Medication Dose Route Frequency - lidocaine (PF) 10 mg/mL (1 %) 1-2 mg injection (XYLOCAINE) 0.1-0.2 mL INTRADERMAL PRN Or - lidocaine 1% 0.25 mL subcutaneous j-tip syringe (XYLOCAINE) 0.25 mL SUBCUTANEOUS PRN - lactated ringers iv infusion 5-30 mL/hr INTRAVENOUS CONTINUOUS - NaCl 0.9% iv flush bag 20 mL INTRAVENOUS PRN - ceFAZolin iv piggyback 2 g in D5W (iso-osmotic) 100 mL (ANCEF) 2 g INTRAVENOUS Pre-Op Once - [COMPLETED] acetaminophen 1,000 mg tab(s) (TYLENOL) 1,000 mg ORAL Pre-Op Once - midazolam (PF) 2 mg injection (VERSED) 2 mg INTRAVENOUS Pre-Op Once Outpatient Medications as of 09/03/2023 Medication Sig - omeprazole (PRILOSEC) 40 mg capsule Take 40 mg by mouth once daily. - hydrOXYzine pamoate (VISTARIL) 25 mg capsule Take 25 mg by mouth once daily. - sertraline (ZOLOFT) 50 mg tablet Take 50 mg by mouth once daily. - ondansetron (ZOFRAN) 4 mg tablet Take 4 mg by mouth every 8 hours as needed for nausea/vomiting. I have interviewed and examined the patient. I have reviewed the medical record and/or the pre-anesthesia evaluation, pertinent labs, and test results. This contains updated information obtained within 48 hours of Surgery/Procedure. SIGNATURE: Itzel Antony MD PATIENT NAME: Sheyla Lea DATE: September 03, 2023 TIME: 7:25 AM CSN: [id number] [facility] BRIEF OP NOTon 09-03-2023 BRIEF OP NOT HNO ID: [id number] Author: JANINE SOLANO MD Service: Otolaryngology Author Type: Resident Type: Brief Op Note Filed: 09/03/2023 12:12 Note Text: BRIEF OP NOTE LOG ID: [id number] Surgery/Procedure Date: 09/03/2023 Incision/Procedure Start Time: 7:53 AM Incision Close/Procedure End Time: 12:06 PM Surgeon(s)/Proceduralist(s) and Logging Shovel Operator(s): Surgeon(s) and Role: * Latasha Bobo MD - Primary * Janine Solano MD - Resident - Assisting Procedure(s): THYROIDECTOMY TOTAL Anesthesia: General Findings: Identification and preservation of bilateral recurrent laryngeal nerves - good stimulation with EMG at end of the case Identification and preservation of bilateral superior parathyroid glands Estimated Blood Loss: 25 mls Specimens: ID Type Source Tests Collected by Time Destination A : Pre tracheal node Tissue Trachea, Biopsy SURGICAL PATHOLOGY Latasha Bobo MD 09/03/2023 8:16 AM B : stitch williamson left superior pole Tissue Thyroid, Total, Thyroidectomy SURGICAL PATHOLOGY Latasha Bobo MD 09/03/2023 11:21 AM Implants: * No implants in log * Complications: None Pre-Op/Pre-Procedure Diagnosis: Pre-Op Diagnosis Codes: * Thyroiditis [E06.9] Post-Op/Post-Procedure Diagnosis: same SIGNATURE: Janien Solano MD PATIENT NAME: Sheyla Lea DATE: September 03, 2023 TIME: 12:12 PM PAGER/CONTACT #: [phone] Normal [facility] Calcium.ionized [Moles/Vol]o n 09-03-2023 Calcium.ionized (Bld) [Mass/Vol] 1.28 mmol/L Normal 1.08-1.30 [facility] Comment on above: Order Comment: Speci men Type: BLOOD SPECIMENOrdering Facility: [facility] Address: [address] [place] [address] Performed By: #### 1 995-0 ####[facility] [id number] [address] [facility] Calcium.ionized adjusted to pH 7.4 (Bld) [Moles/Vol] 1.22 mmol/L Normal 1.08-1.30 [facility] Comment on above: Order Comment: Speci men Type: BLOOD SPECIMENOrdering Facility: [facility] Address: [address] [place] [address] Performed By: #### 1 995-0 ####[facility] [id number] [address] [place] NURSING PROGon 09-03-2023 NURSING PROG HNO ID: [id number] Author: BRENNEN HOPKINS RN Service: Nursing Author Type: Registered Nurse Type: Nursing Progress Note Filed: 09/03/2023 14:25 Note Text: Admission/Transfer Note PATIENT NAME: Sheyla Lea Patient Location: Main - Periop OR/Main - Periop OR Room: Main - Periop OR (E020-08) Patient admitted from PACU via bed in stable condition. Actions taken: Patient oriented to room, call light function, prescribed activities, Patient rights, and Quiet at night. This note was completed by: Brennen Alcala [facility] OPERATIVE NOon 09-03-2023 OPERATIVE NO HNO ID: [id number] Author: LATASHA BOBO MD Service: Otolaryngology Author Type: Physician Type: Operative Report Filed: 09/08/2023 23:04 Note Text: [facility] [place] [phone] or (110) [facility] C O N F I D E N T I A L I N F O R M A T I O N -------- [facility] DOCUMENT OPERATIVE REPORT Otolaryngology Head and Neck Surgery Name: Sheyla Lea [facility] #: [id number] Date: 09/03/2023 Date of : 2005 Pre Operative Diagnoses: Hellen's thyroiditis Post Operative Diagnoses: Same Incision/Procedure Start Time: 7:53 AM Incision Close/Procedure End Time: 12:06 PM Surgeon(s) and Role: * Latasha Bobo MD - Primary * Janine Solano MD - Resident - Assisting Procedure(s): 1) Total thyroidectomy Anesthesia: General Operative Indications: Sheyla Lae is an 18 year old female who presented with a painful and tender thyroid, without nodules on ultrasound, and labs indicative of Hellen's thyroiditis. The decision was to bring the patient to the OR for the above procedure. All risks, benefits, and alternatives to the above procedure were discussed with the patient and informed consent obtained. Operative Findings: 1) The thyroid was removed en bloc 2) Bilateral recurrent laryngeal nerves wree identified and preserved. They stimulated well at the end of the case 3) The left superior and right superior and inferior parathyroids were identified and preserved in situ Procedure Details: The patient was brought to the operating room from the preoperative area. A preoperative huddle was performed and the patient was identified by the name and date of . The procedure to be performed was confirmed with all the personnel involved. The patient was then placed under general anesthesia by the Anesthesia team. She was intubated using a NIMS endotracheal tube. Nerve monitoring was confirmed to be functioning at the beginning of the case and used throughout the case. The incision was marked then injected with lidocaine with epi after application of an alcohol swab. The patient was prepped and draped in the usual sterile fashion. A preoperative time-out was then performed. A 15 blade was used to make an incision at the site of the previously marked crease down to the level of the platysma. The platysma was divided with sharp dissection carried down to the fascia overlying the strap musculature with protection of the anterior jugular veins. Subplatysmal flaps were raised superiorly to just below the hyoid and inferiorly to the clavicle. These were held back with [place] retractors. The midline raphae was was bisected so the strap musculature could be at midline. We began the dissection on the right side. The sternohyoid and sternothyroid musculature was identified and retracted laterally to visualize thyroid lobe. The musculature was carefully dissected off of the thyroid lobe. Dissection was undertaken using a combination of blunt dissection, harmonic scalpel and clips to try and mobilize the thyroid lobe, first superiorly and then inferiorly. The superior then inferior pole vessels were carefully taken down. Bipolar cauterization was used as necessary for meticulous hemostasis. The superior and inferior parathyroid gland was visualized during this dissection and carefully dissected off of the thyroid gland with preservation of the vascular supply. The thyroid lobe was retracted medially. Dissection on the perithyroid sheath was undertaken with ultimate identification of the recurrent laryngeal nerve. With meticulous dissection taking extra care to avoid any injury to the recurrent laryngeal nerve, the thyroid lobe was then then dissected free from surrounding tissue superiorly and inferiorly and ultimately off of the ligament of [place] and trachea. Attention was then turned to the left thyroid lobe. Following along the perithyroid sheath, the sternohyoid and sternothyroid musculature were from the thyroid and retracted laterally to visualize thyroid lobe. Dissection was undertaken using a combination of blunt dissection, harmonic scalpel and clips to try and mobilize the left thyroid lobe, first superiorly and then inferiorly. The superior then inferior pole vessels were carefully taken down. The superior parathyroid gland was visualized during this dissection and carefully dissected off of the thyroid gland with preservation of the vascular supply. The thyroid lobe was retracted medially. Dissection on the perithyroid sheath was undertaken with ultimate identification of the recurrent laryngeal nerve. With meticulous dissection taking extra care to avoid any injury to the recurrent laryngeal nerve, the thyroid lobe was then dissected free from surrounding tissue melton (more content not included)... Normal [facility] PTH-Intact SerPl-Stephenncon 04- Parathyrin.intact [Mass/Vol] 42 pg/mL Normal 15-65 [facility] Comment on above: Order Comment: Speci men Type: BLOOD SPECIMENOrdering Facility: [facility] Address: [address] [place] [address] Performed By: #### 2 731-8 ####[facility] [facility] LABIA [id number] [address] STATES OF [facility] SURGICAL PATHOLOGYon 024 CASE REPORT Normal [facility] Comment on above: Order Comment: Speci men Type: TISSUE SPECIMENOrdering Facility: [facility] Address: [address] [place] [address] Result Comment: Surg [facility] Pathology Report Case: [id number] Authorizing Provider: Latasha Bobo MD Collected: 09/03/2023 08:16 AM Ordering Location: Admitting Received: 09/03/2023 08:19 AM Pathologist: Javier Nick DMD Intraop: Joel Jeronimo MD Specimens: A) - Trachea, Biopsy, Pre tracheal node B) - Thyroid, Total, Thyroidectomy, stitch williamson left superior pole Performed By: #### S ####[facility] LABCLIA [id number] [place] [address] [place] CLINICAL HISTORY [facility] Comment on above: Order Comment: Speci men Type: TISSUE SPECIMENOrdering Facility: [facility] Address: [address] [place] [address] Result Comment: Pre- op diagnosis: Thyroiditis [E06.9] Performed By: #### S ####[facility] LABCLIA [id number] [address] [place] FINAL DIAGNOSIS Normal [facility] Comment on above: Order Comment: Speci men Type: TISSUE SPECIMENOrdering Facility: [facility] Address: [address] [place] [address] Result Comment: A. P retracheal lymph node, excision: - Fibroadipose tissue with one benign lymph node. B. 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 Performed By: #### S ####[facility] LABCLIA [id number] [place] [address] [place] FINAL PERFORMING LAB Normal [facility] Comment on above: Order Comment: Speci men Type: TISSUE SPECIMENOrdering Facility: [facility] Address: [address] [place] [address] Result Comment: Diag nostic interpretation performed at [facility], [address] [place] [address] CLIA# [id number] [employer]proof[employer] Machine Adjuster: Remy Erickson M.D. Performed By: #### S ####[facility] LABCLIA [id number] [address] [place] GROSS DESCRIPTION Normal [facility] Comment on above: Order Comment: Speci men Type: TISSUE SPECIMENOrdering Facility: [facility] Address: [address] [place] [address] Result Comment: Ijeoma samaniego, Biopsy Received fresh for frozen section designated pretracheal node is a pink-buckley lymph node that measures 0.4 x 0.4 x 0.3 cm. The specimen is entirely submitted for intraoperative consultation. WE September 03, 2023 8:26 AM Gross examination performed at [facility], [address] [place] [address] B. Thyroid, Total, Thyroidectomy Labeled: Thyroid, total, thyroidectomy Received: In formalin Specimen type: Total thyroidectomy Oriented: Yes; stitch williamson left superior pole Weight: 25.0 g Size: 5.8 x 5.0 x 2.8 cm Right lobe: 5 x 2.5 x 2 cm Left lobe 4.9 x 2.7 x 2.5 cm Isthmus: 2.5 x 1.4 x 0.9 cm Ink code: Black- external surface of right lobe Blue- external surface of left lobe Island- external surface of isthmus Sectioning: The right and left lobes are serially section from superior to inferior. The isthmus is serially section from right to left. Number of discrete nodules: 0 Background thyroid parenchyma: Buckley-brown to brown in color, with lobulated configuration. Attached skeletal muscle: Not identified Attached lymph nodes: Not identified Attached parathyroid: Not identified Gross photograph: No Cassette code: B1: Right lobe, apparel trimmings sales representative section B2: Left lobe, apparel trimmings sales representative section B3: Isthmus, apparel trimmings sales representative section Gross examination performed at [facility], [address] [place] [address] CLIA# [id number] LETTY 09/06/23 1:33 PM Performed By: #### S ####[facility] LABIA [id number] [place] [address] [place] INTRAOPERATIVE DIAGNOSIS Normal [facility] Comment on above: Order Comment: Speci men Type: TISSUE SPECIMENOrdering Facility: [facility] Address: [address] [place] [address] Result Comment: Ijeoma samaniego, Biopsy FSA 1: Mostly fibroadipose tissue with rare lymphoid aggregate () September 03, 2023 8:35 AM Intraoperative diagnosis performed at [place] [address] Performed By: #### S ####[facility] LABIA [id number] [place] [address] [place] CNCOon 08-27-2023 CNCO Letter Text Normal [facility] B-HCG SerPl-aCncon HCG.beta subunit Qn m[IU]/mL Normal <5.0 [facility] Comment on above: Order Comment: Speci men Type: BLOOD SPECIMENOrdering Facility: [facility] Address: [address] [place] [address] Result Comment: Nega tive Performed By: #### 2 1198-7 ####[facility] LABCLIA [id number] [address] [address] [place] Basic metabolic 2000 panelon 08-25-2023 Anion gap [Moles/Vol] 10 mmol/L Normal 9-18 [facility] Comment on above: Order Comment: Speci men Type: BLOOD SPECIMENOrdering Facility: [facility] Address: [address] [place] [address] Performed By: #### 1 5067-2, 2243-4, DHEAS, 47111-4 ####[facility] LABIA [id number] [place] [address] [place] Calcium [Mass/Vol] 9.8 mg/dL Normal 8.5-10.2 [facility] Comment on above: Order Comment: Speci men Type: BLOOD SPECIMENOrdering Facility: [facility] Address: [address] [place] [address] Performed By: #### 1 5067-2, 2243-4, DHEAS, 90054-7 ####[facility] LABIA [id number] [place] [address] [place] Chloride [Moles/Vol] 106 mmol/L High 97-105 [facility] Comment on above: Order Comment: Speci men Type: BLOOD SPECIMENOrdering Facility: [facility] Address: [address] [place] [address] Performed By: #### 1 5067-2, 2243-4, DHEAS, 79929-5 ####[facility] LABCLIA [id number] [place] [id number] [place] CO2 [Moles/Vol] 24 mmol/L Normal 22-30 [facility] Comment on above: Order Comment: Speci men Type: BLOOD SPECIMENOrdering Facility: [facility] Address: [address] [place] [address] Performed By: #### 1 5067-2, 2243-4, DHEAS, 59979-9 ####[facility] LABIA [id number] [place] [id number] [place] Creatinine [Mass/Vol] 0.67 mg/dL Normal 0.58-0.96 [facility] Comment on above: Order Comment: Harriet abernathy Type: BLOOD SPECIMENOrdering Facility: [facility] Address: [address] [place] [address] Performed By: #### 1 5067-2, 2242-4, DHEACourt, 66213-9 ####[facility] [id number] [place] [address] [place] Creatinine and Glomerular filtration rate.predicted panel (S/P/Bld) 129 mL/min/1.73m??? Normal >=60 [facility] Comment on above: Order Comment: Harriet abernathy Type: BLOOD SPECIMENOrdering Facility: [facility] Address: [address] [place] [address] Result Comment: Akila mated Glomerular Filtration Rate (eGFR) is calculated using the 2020 CKD-EPI creatinine equation. This equation utilizes serum creatinine, sex, and age as parameters. The creatinine assay has traceable calibration to isotope dilution-mass spectrometry. Refer to KDIGO guidelines for clinical interpretation. In patients with unstable renal function, e.g. those with acute kidney injury, the eGFR may not accurately reflect actual GFR. Performed By: #### 1 5067-2, 2242-4, EDIN, 77843-1 ####[facility] LABIA [id number] [place] [id number] [place] Glucose [Mass/Vol] 90 mg/dL Normal 74-99 [facility] Comment on above: Order Comment: Harriet josemanuel Type: BLOOD SPECIMENOrdering Facility: [facility] Address: [address] [place] [address] Result Comment: The [place] Diabetes Association (ADA) provides guidance for cutoff values for fasting glucose and random glucose. The ADA defines fasting as no caloric intake for at least 8 hours. Fasting plasma glucose results between 100 to 125 mg/dL indicate increased risk for diabetes (prediabetes). Fasting plasma glucose results greater than or equal to 126 mg/dL meet the criteria for diagnosis of diabetes. In the absence of unequivocal hyperglycemia, results should be confirmed by repeat testing. In a patient with classic symptoms of hyperglycemia or hyperglycemic crisis, random plasma glucose results greater than or equal to 200 mg/dL meet the criteria for diagnosis of diabetes. Reference: Standards of Medical Care in Diabetes 2016, [place] [employer] Association. Diabetes Care. 2016.39(Suppl 1). Performed By: #### 1 5067-2, 3-4, DHEAS, 79095-9 ####[facility] LABCLIA [id number] [place] [address] [place] Potassium [Moles/Vol] 4.0 mmol/L Normal 3.7-5.1 [facility] Comment on above: Order Comment: Speci men Type: BLOOD SPECIMENOrdering Facility: [facility] Address: [address] [place] [address] Performed By: #### 1 5067-2, 2242-4, DHEAS, 35926-3 ####[facility] LABCLIA [id number] [place] [address] [place] Sodium [Moles/Vol] 140 mmol/L Normal 136-144 [facility] Comment on above: Order Comment: Speci men Type: BLOOD SPECIMENOrdering Facility: [facility] Address: [address] [place] [address] Performed By: #### 1 5067-2, 2242-4, DHEAS, 75802-5 ####[facility] LABCLIA [id number] [place] [address] [place] Urea nitrogen [Mass/Vol] 10 mg/dL Normal 7-21 [facility] Comment on above: Order Comment: Speci men Type: BLOOD SPECIMENOrdering Facility: [facility] Address: [address] [place] [address] Performed By: #### 1 5067-2, 3-4, DHEAS, 21384-4 ####[facility] LABCLIA [id number] [place] [address] [place] CBC panel Auto (Bld)on 08-24 Erythrocyte distribution width (RBC) [Ratio] 14.3 % Normal 11.5-15.0 [facility] Comment on above: Order Comment: Speci men Type: BLOOD SPECIMENOrdering Facility: [facility] Address: [address] [place] [address] Performed By: #### 5 8410-2 ####[facility] [id number] [place] [address] [place] Hematocrit (Bld) [Volume fraction] 41.4 % Normal 36.0-46.0 [facility] Comment on above: Order Comment: Speci men Type: BLOOD SPECIMENOrdering Facility: [facility] Address: [address] [place] [address] Performed By: #### 5 8410-2 ####[facility] [id number] [address] [place] Hemoglobin (Bld) [Mass/Vol] 13.1 g/dL Normal 11.5-15.5 [facility] Comment on above: Order Comment: Speci men Type: BLOOD SPECIMENOrdering Facility: [facility] Address: [address] [place] [address] Performed By: #### 5 8410-2 ####[facility] LABIA [id number] [place] [address] [place] MCH (RBC) [Entitic mass] 25.3 pg Low 26.0-34.0 [facility] Comment on above: Order Comment: Speci men Type: BLOOD SPECIMENOrdering Facility: [facility] Address: [address] [place] [address] Performed By: #### 5 8410-2 ####[facility] [id number] [place] [address] [place] MCHC (RBC) [Mass/Vol] 31.6 g/dL Normal 30.5-36.0 [facility] Comment on above: Order Comment: Speci men Type: BLOOD SPECIMENOrdering Facility: [facility] Address: [address] [place] [address] Performed By: #### 5 8410-2 ####[facility] LABIA [id number] [place] [address] [place] MCV (RBC) [Entitic vol] 80.1 fL Normal 80.0-100.0 [facility] Comment on above: Order Comment: Speci men Type: BLOOD SPECIMENOrdering Facility: [facility] Address: [address] [place] [address] Performed By: #### 5 8410-2 ####[facility] LABIA [id number] [place] [address] [place] Nucleated RBC (Bld) [#/Vol] 10*3/uL Normal <0.01 [facility] Comment on above: Order Comment: Speci men Type: BLOOD SPECIMENOrdering Facility: [facility] Address: [address] [place] [address] Performed By: #### 5 8410-2 ####[facility] LABIA [id number] [place] [address] [place] Platelet mean volume (Bld) [Entitic vol] 11.6 fL Normal 9.0-12.7 [facility] Comment on above: Order Comment: Speci men Type: BLOOD SPECIMENOrdering Facility: [facility] Address: [address] [place] [address] Performed By: #### 5 8410-2 ####[facility] LABIA [id number] [place] [address] [place] Platelets (Bld) [#/Vol] 256 10*3/uL Normal 150-400 [facility] Comment on above: Order Comment: Speci men Type: BLOOD SPECIMENOrdering Facility: [facility] Address: [address] [place] [address] Performed By: #### 5 8410-2 ####[facility] LABIA [id number] [place] [id number] [place] RBC (Bld) [#/Vol] 5.17 10*6/uL Normal 3.90-5.20 [facility] Comment on above: Order Comment: Speci men Type: BLOOD SPECIMENOrdering Facility: [facility] Address: [address] [place] [address] Performed By: #### 5 8410-2 ####[facility] LABIA [id number] [place] [address] [place] WBC (Bld) [#/Vol] 3.93 10*3/uL Normal 3.70-11.00 [facility] Comment on above: Order Comment: Speci men Type: BLOOD SPECIMENOrdering Facility: [facility] Address: [address] [place] [address] Performed By: #### 5 8410-2 ####[facility] LABIA [id number] [place] [address] [place] DHEA-S BLDon 08-25-2023 DHEA-S [Mass/Vol] 365.3 ug/dL 65.1 - 368 .0 ug/dL [facility] DHEA-S [Mass/Vol] 365.3 ug/dL Normal 65.1-368.0 [facility] Comment on above: Order Comment: Speci men Type: BLOOD SPECIMENOrdering Facility: [facility] Address: [address] [place] [address] Result Comment: Refe rence ranges are age and gender specific. For additional information, reference range tables can be found in the laboratory test directory. The normal values are based on the following source: Dehydroepiandrosterone sulfate (DHEA S) [package insert V 17.0 Syrian]. [facility], [place], [place]: December 2012. Performed By: #### 1 5067-2, 2243-4, DHEAS, 73003-8 ####[facility] LABCLIA [id number] [place] [address] [place] ECG COMPLETEon 08-25-2023 ECG COMPLETE Ventricular Rate : 7 0 BPM Atrial Rate : 70 BPM P-R Interval : 136 ms QRS Duration : 70 ms Q-T Interval : 404 ms QTC Calculation(Bazett) : 436 ms Calculated R [place] : 76 degrees Calculated T [place] : 56 degrees NORMAL SINUS RHYTHM NORMAL ECG Confirmed by MIRNA MICHAEL MD ([id number]) on 08/31/2023 8:27:21 PM NAME : SHEYLA LEA PID : [id number] : 2005 Gender : Female Race : ORD : [id number] Procedure Date : Aug 25 2023 08:09:41 Edit Date : Aug 31 2023 20:27:23 Diagnosis: NORMAL SINUS RHYTHM NORMAL ECG Confirmed by MIRNA MICHAEL MD ([id number]) on 08/31/2023 8:27:21 PM Test Reason : Location : 119 : A17 Overread By : MIRNA MICHAEL MD Edited By : MIRNA MICHAEL MD Referred By : LATASHA BOBO Acquired by : DARRIAN CONTRERAS Normal [facility] ESTRADIOL-17B BLDon 08-25-19 E2 [Mass/Vol] 39 pg/mL [facility] Estradiol SerPl-mCncon 08-24 E2 [Mass/Vol] 39 pg/mL Normal [facility] Comment on above: Order Comment: Speci men Type: BLOOD SPECIMENOrdering Facility: [facility] Address: [address] [place] [address] [place] [address] Result Comment: This test is not suitable for patients receiving treatment with the drug Fulvestrant (Faslodex). The drug causes an interference leading to falsely elevated estradiol results. Menstrual cycle Estradiol reference ranges: Follicular : < 234 pg/mL Ovulation : 41 to 398 pg/mL Luteal : < 342 pg/mL Estradiol reference ranges vary by gestational period: First trimester : 154 to 3243 pg/mL Second trimester : 1561 to 59244 pg/mL Third trimester : 8285 to >44677 pg/mL Post-menopausal Estradiol reference range: < 41 pg/mL Reference: 1. Estradiol - E2 (Estradiol III) [package insert V 3.0 Syrian]. [facility], [place], [place], October 2015. Performed By: #### 1 5067-2, 2243-4, DHEAS, 24919-5 ####[facility] LABCLIA [id number] [place] [address] [place] FSH BLDon 08-25-2023 Follitropin Qn 6.2 m[IU]/mL See comment mIU/mL [facility] FSH SerPl-aCncon 08-25-2023 Follitropin Qn 6.2 m[IU]/mL Normal See comment [facility] Comment on above: Order Comment: Speci men Type: BLOOD SPECIMENOrdering Facility: [facility] Address: [address] [place] [address] Result Comment: Refe rence range: Follicular: 3.5-12.5 mIU/mL Ovulation: 4.7-21.5 mIU/mL Luteal: 1.7-7.7 mIU/mL Postmenopausal: 25.8-134.8 mIU/mL Performed By: #### 1 5067-2, 2243-4, DHEAS, 76249-9 ####[facility] LABCLIA [id number] [address] [place] HCG QUANTITATIVEon 4 HCG.beta subunit Qn <5.0 mIU/mL [facility] HISTORY PHYSICALon 4 HISTORY PHYSICAL HNO ID: [id number] Author: JOHN HUMPHREY PA-C Service: ? Author Type: Physician Logging Shovel Operator Type: H&P Filed: 08/26/2023 10:08 Note Text: HISTORY AND PHYSICAL EXAMINATION SERVICE DATE: 08/25/2023 SERVICE TIME: 10:08 AM PRIMARY CARE PHYSICIAN: ANITA ELMORE NP Assessment Patient has the following medical conditions which may affect emmie-operative course: GERD (gastroesophageal reflux disease) Currently controlled with dietary and lifestyle modifications. 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 Payne Activity Status Index: METS: Climb a flight of stairs or walk up a hill (5.50 METs) Do heavy work around the house, such as scrubbing floors, lifting or moving heavy furniture (8.00 METs) DASI Score: 13.5 (Goes to the gym 5 times per week- lifts weights, walks on treadmill. ) Patient denies any chest pain or undue shortness of breath with the above physical activity. Clinical Frailty Scale: 1. Very fit STOP-Bang Score: BMI greater than 35 kg/m2 STOP-Bang Score: 1 ANESTHESIA FINDINGS: Intubation History: No history of difficult intubation Significant Anesthesia Considerations: none Airway History: No history of difficult airway I - PHYSICAL EVALUATION AIRWAY Patient intubated: No. Tracheostomy tube not present Mallampati: III. TM distance: >3 FB. Neck ROM: full ROM without neurological symptoms. Mouth opening: adequate. Short neck: no. Thick neck: no Lip Bite Test: I DENTAL Dental findings: teeth intact. II - ANESTHESIA PLAN Anesthetic plan additional comments: *PACC/TCI - anesthesia choice. Beta Katelyn Monitoring Plan Post Procedure Analgesic Plan Prepared for Surgery: optimally prepared for surgery, pending [see comment]. Labs and EKG CONSULTS: Patient does not require consults for optimization at this time Planned Anesthetic: anesthesia choice The Following Tests/Procedures Have Been Initiated: Labs and EKG per surgical service. REASON FOR VISIT: Sheyla Lea is a 18 year old female who is scheduled for Procedure(s): THYROIDECTOMY TOTAL (Bilateral) at the request of Latasha Harden MD for consultation. My final recommendation will be communicated back to the requesting physician by way of shared medical record or letter. Subjective The patient has the following: ACTIVE PROBLEM LIST Thyroid Nodule Family History of Thyroid Disease Dysfunction of Both Eustachian Tubes History of Otitis Media S/P Tonsillectomy Tonsillar Hypertrophy Abnormal Thyroid Blood Test History of Thyroid Nodule Obesity, Pediatric, Bmi Greater Than Or Equal to 95th Percentile for Age Gerd (Gastroesophageal Reflux Disease) COVID-19 Immunization Status Overdue - Covid-19 Vaccine () Overdue since 01/15/2023 11/11/2020 Imm Admin: COVID-19 original vaccine, age 12+ yr, monovalent (PFIZER-BIONTECH - PURPLE TOP) 10/21/2020 Imm Admin: COVID-19 original vaccine, age 12+ yr, monovalent (PFIZER-BIONTECH - PURPLE TOP) CHIEF COMPLAINT: Pre-op evaluation HPI: Patient is a 18 year old year old female who is scheduled for above case on 09/03/2023. Patient has a painful thyroid and antithyroid antibodies are elevated. Denies any fevers, chills, nausea, vomiting, SOB or chest pain. REVIEW OF SYSTEMS: General: Negative for: weight loss >10% of BW in last 6 months, malaise and fever. Neurological: Negative for: delirium, dementia, headaches, seizures, TIA and strokes. Respiratory: Negative for: asthma, COPD, current cough, dyspnea, home oxygen, pneumonia within 6 weeks, tobacco use and obstructive sleep apnea. Cardiovascular: Negative for: angina, arrhythmia, CAD, chest pain, CHF, DVT/PE, hypertension, recent MS, murmur/valvular heart disease and PVD. GI: Positive for: GERD Negative for: abdominal pain, hepatitis, inflammatory bowel disease, liver disease and ETOH >2 drinks/day. : Negative for: on dialysis, dysuria, hematuria, nephrolithiasis and renal failure. Endocrine: See HPI. Negative for: diabetes mellitus, hyperthyroidism, hypothyroidism and steroid for chronic problem. Hematology: Negative for: anemia, thrombocytopenia and chronic anti-coagulation/platelet meds. Oncology: No history of CA metastasis, chemo within 30 days, or radiotherapy within 90 days. No history of oncological symptoms or problems. Psych: Positive for: depression. Musculoskeletal: Negative for joint pain or swelling, back pain or muscle pain. Skin: Negative for lesions, rash and itching. PAST MEDICAL HISTORY Diagnosis Date GERD (gastroesophageal reflux disease) 08/25/2023 PAST SURGICAL HISTORY Procedure Laterality Date PAST SURGICAL HISTORY OF ear tubes TONSILLECTOMY HX FAMILY HISTORY Problem Relation Age of Onset Obesity Father Hypertension Father Obesity Mother Thyroid Mother Hypertension Maternal Grandfather other (ALS) Maternal Gra (more content not included)... Normal [facility] HYDROXYPROGESTERONE-17on 17-HYDROXYPROGEST ERONE QUANTITATIVE BY HPLC-MS/MS, SERUM OR PLASMA 29.23 ng/dL Normal <=206.00 [facility] Comment on above: Order Comment: Speci men Type: BLOOD SPECIMENOrdering Facility: [facility] Address: [address] [place] [address] Result Comment: INTERPRETIVE INFORMATION for 17-Hydroxyprogesterone in females: Follicular 15 to 70 ng/dL Luteal 35 to 290 ng/dL REFERENCE INTERVAL: 17-Hydroxyprogesterone Qnt, HPLC-MS/MS Access complete set of age- and/or gender-specific reference intervals for this test in the [facility] Test Directory ([employer]). This test was developed and its performance characteristics determined by [employer]. It has not been cleared or approved by the US Food and Drug Administration. This test was performed in a CLIA certified laboratory and is intended for clinical purposes. Performed By: [facility] [address] [place] [address] [employer] Machine Adjuster: Jaden Fonseca MD, PhD CLIA Number: [id number] Performed By: #### H PROG ####[facility] LABORATORIESCLIA [id number] [place] [address] LH SerPl-aCncon 08-25-2023 Lutropin Qn 8.8 m[IU]/mL Normal See comment [facility] Comment on above: Order Comment: Speci men Type: BLOOD SPECIMENOrdering Facility: [facility] Address: [address] [place] [address] Result Comment: Refe rence range: Follicular: 2.4-12.6 mIU/mL Midcycle: 14.0-95.6 mIU/mL Luteal: 1.0-11.4 mIU/mL Post Caspar: 7.7-58.5 mIU/mL Performed By: #### 2 842-3, 86401-4 ####[facility] LABCLIA [id number] [address] OF [facility] LUTEINIZING HORMONEon 2023 Lutropin Qn 8.8 m[IU]/mL See comment mIU/mL [facility] PROLACTIN BLDon 08-25-2023 Prolactin [Mass/Vol] 8.6 ng/mL 4.5 - 26.8 ng/mL [facility] Prolactin SerPl-mCncon 08-24 Prolactin [Mass/Vol] 8.6 ng/mL Normal 4.5-26.8 [facility] Comment on above: Order Comment: Speci men Type: BLOOD SPECIMENOrdering Facility: [facility] Address: [facility] [place] [address] Result Comment: Prol actin test is performed using the [employer] Electrochemiluminescence Immunoassay method. Results obtained with different methods or kits cannot be used interchangeably. Performed By: #### 2 842-3, 82469-3 ####[facility] LABCLIA [id number] [facility] [facility] [place] [address] [place] TESTOSTERONE, FREE AND TOTAL on 08-25-2023 TESTOSTERONE, FREE, S 1.45 ng/dL High <0.13-1.08 [facility] Comment on above: Order Comment: Speci men Type: BLOOD SPECIMENOrdering Facility: [facility] Address: [address] [place], [place] [address] [address] Result Comment: ADDITIONAL INFORMATION This test was developed and its performance characteristics determined by [facility] in a manner consistent with CLIA requirements. This test has not been cleared or approved by the U.S. Food and Drug Administration. Performed By: #### T FTEST ####[facility] LABCLIA [id number] [place] [address] TESTOSTERONE, TOTAL, S 56 ng/dL Normal 8-60 [facility] Comment on above: Order Comment: Speci men Type: BLOOD SPECIMENOrdering Facility: [facility] Address: [facility] [place] [address] Result Comment: ADDITIONAL INFORMATION Testing performed by Liquid Chromatography-Tandem Mass Spectrometry (LC-MS/MS). This test was developed and its performance characteristics determined by [facility] in a manner consistent with CLIA requirements. This test has not been cleared or approved by the U.S. Food and Drug Administration. Test Performed by: [place] [id number] Historiographer: Yan Echols M.D. Ph.D.; CLIA# [id number] Performed By: #### T FTEST ####[facility] LABCLIA [id number] [place] [address] Alexsander 07-13-2023 CNPRosy Telephone (HNQ) SHEYLA LEA ([id number]) 3 F Date Time Provider Department 07/13/23 LATASHA BOBO HNQ During your visit today, we recorded the following information about you: Henrietta Mccormick 07/13/2023 3:13 PM Signed Pt calling for lab results. Please call Latasha Bobo MD 08/02/2023 4:12 PM Signed Spoke with patient her antithyroid antibodies are quite high (TPO). Her TSH is normal at this point. She had a grandmother with Hellen's thyroiditis who had pain in her neck similar to the patient's pain and underwent surgery and her pain resolved. The patient is interested in total thyroidectomy to see if this will help her neck pain. It is chronic and every day. I discussed with her that this is not standard treatment for Hellen's although in some patients with pain related to her thyroiditis it can be helpful. There are risks and it may not be the most straightforward thyroidectomy. She would like to consider it. She will see her sales facilitator which is a new sales facilitator in August and then if still interested in pursuing thyroidectomy will reach out to me. In the meantime we can hold a surgical date. Latasha Bobo MD Allergies As of Date: 07/13/2023 (No Known Allergies) Date Reviewed: 04/23/2023 Reviewed by: Ayesha Maddox, MALINDA - Fully Assessed Reason for Visit: Results [95] Primary Visit Diagnosis:Thyroiditis [E06.9] Order(s):SURGICAL REQUEST - ELECTIVE (12/2019) [5226189] Order #: [id number]: 1 CBC [CBC] Order #: [id number] FUTURE BASIC METABOLIC PNL [SQBMP] Order #: [id number] FUTURE ECG COMPLETE [ECG01] Order #: [id number] FUTURE Prescriptions as of 08/02/2023 - omeprazole (PRILOSEC) 40 mg capsule Take 40 mg by mouth once daily. - ondansetron (ZOFRAN) 4 mg tablet Take 4 mg by mouth every 8 hours as needed for nausea/vomiting. - hydrOXYzine pamoate (VISTARIL) 25 mg capsule Take 25 mg by mouth once daily. - sertraline (ZOLOFT) 50 mg tablet Take 50 mg by mouth once daily. - Norgestimate-Ethinyl Estradiol 0.18/0.215/0.25 mg-35 mcg (28) tab Problem List As Of Date 07/13/2023 Noted Resolved Thyroid nodule [E04.1] 06/23/2018 Family history of thyroid disease [Z83.49] 06/23/2018 Dysfunction of both eustachian tubes [H69.93] 05/13/2017 History of otitis media [Z86.69] 05/13/2017 S/P tonsillectomy [Z90.89] 07/12/2017 Tonsillar hypertrophy [J35.1] 05/13/2017 Abnormal thyroid blood test [R79.89] 04/15/2022 History of thyroid nodule [Z86.39] 04/15/2022 Obesity, pediatric, BMI greater than or equal t*04/15/2022 Encounter Status:Closed by LATASHA BOBO on 08/02/23 Normal [facility] T4 Free SerPl-hedyon 024 Free T4 [Mass/Vol] 1.2 ng/dL Normal 0.9-1.7 [facility] Comment on above: Order Comment: Speci men Type: BLOOD SPECIMENOrdering Facility: [facility] Address: [address] [place] [address] [place] [address] Performed By: #### 3 016-3, 3024-7 ####[facility] LABCLIA [id number] [facility] [place] [address] [place] THYROGLOBULIN ABon 4 Thyroglobulin Ab Qn 91.0 [IU]/mL High <4.0 [facility] Comment on above: Order Comment: Harriet abernathy Type: BLOOD SPECIMENOrdering Facility: [facility] Address: [address] [place] [address] Result Comment: The Thyroglobulin Antibody test was performed using the Red E[employer]ible [employer] DXI paramagnetic particle chemiluminescent immunoassay method. Results obtained with different assay methods or kits cannot be used interchangeably. Performed By: #### T EVARISTO ####[facility] LABCLIA [id number] [place] [address] [place] THYROID PEROXIDASE ANTIBODY BLOODon 07-09-2023 TPO Ab Qn 249.5 [IU]/mL High <5.6 [facility] Comment on above: Order Comment: Harriet abernathy Type: BLOOD SPECIMENOrdering Facility: [facility] Address: [address] [place] [address] Result Comment: Thyr oid Peroxidase Antibody test is used as an aid in diagnosis of autoimmune thyroid disease. Clinical correlation is required. Performed By: #### M ICRO ####[facility] LABCLIA [id number] [place] [address] [place] TSH SerPl-aCncon 07-09-2023 TSH Qn 2.600 m[IU]/L Normal 0.510-4.300 [facility] Comment on above: Order Comment: Harriet abernathy Type: BLOOD SPECIMENOrdering Facility: [facility] Address: [address] [place] [address] Result Comment: If t he patient is , TSH reference range varies by gestational period: First Trimester (weeks 9-12): 0.180-2.990 mIU/L Second Trimester: 0.110-3.980 mIU/L Third Trimester: 0.480-4.710 mIU/L Jose Fisher et al. A Practical Approach for the Verifications and Determination of Site- and Trimester-Specific Reference Intervals for Thyroid Function tests in . Thyroid, 2019:29:3:412-420. Loc E, et al. 2017 Guidelines of the [place] Thyroid Association for the Diagnosis and Management of Thyroid Disease during and the . Thyroid, 2017:27:3:315-389. Reference ranges were not locally established for this patient's age group. The normal values are based on the following source: Jayla W, Tim Elam. Reference Ranges for Adults and Children: Pre-analytical Considerations. [facility] Performed By: #### 3 016-3, 3024-7 ####[facility] LABCLIA [id number] [address] OF [facility] CNOVon 04-23-2023 CNOV Office Visit (OTOLMN ) SHEYLA LEA ([id number]) 3 F Date Time Provider Department 04/23/23 4:30 PM LATASHA BOBO OTOLMN During your visit today, we recorded the following information about you: Ayesha Maddox RN 04/23/2023 4:28 PM Signed Tobacco Use: Never Was smoking cessation packet given? N/A - Patient is a non-smoker or quit >1 year ago. Was a referral initiated?N/A Patient is a non-smoker Latasha Bobo MD 05/17/2023 1:09 AM Signed [facility]ko [facility]NS follow-up CC: thyroid nodules HPI: Sheyla Lea is a 16 year old female presenting with thyroid nodule Follow-up thyroid nodules. She feels like her neck is painful and tender in the thyroid area. She has not had recent thyroid function tests. Current Outpatient Medications Medication Sig Dispense Refill - omeprazole (PRILOSEC) 40 mg capsule Take 40 mg by mouth once daily. - ondansetron (ZOFRAN) 4 mg tablet Take 4 mg by mouth every 8 hours as needed for nausea/vomiting. - hydrOXYzine pamoate (VISTARIL) 25 mg capsule Take 25 mg by mouth once daily. - sertraline (ZOLOFT) 50 mg tablet Take 50 mg by mouth once daily. - Norgestimate-Ethinyl Estradiol 0.18/0.215/0.25 mg-35 mcg (28) tab (Patient not taking: Reported on 04/23/2023) 1 No current facility-administered medications for this visit. ALLERGIES No Known Allergies FAMILY HISTORY Problem Relation Age of Onset - Obesity Mother - Thyroid Mother - Obesity Father - Hypertension Father - Obesity Maternal Grandmother wt was >300lbs prior to bariatric surgery - Thyroid Cancer Maternal Grandmother - Hypertension Maternal Grandfather - other (ALS) Maternal Grandfather - other (hyperthyroid) Paternal Grandmother Social History Tobacco Use - Smoking status: Never Passive exposure: Yes - Smokeless tobacco: Never - Tobacco comments: mom AND dad both smoke in house Substance Use Topics - Alcohol use: No - Drug use: No PHYSICAL EXAM: Vitals - None obtained during today's visit Constitutional - General Appearance: well developed, well nourished, without obvious deformities Communication: speaks with a normal voice without hoarseness Head AND Face - Overall: no obvious scars, lesions or masses Parotid and submandibular glands: no masses or tenderness Facial strength: normal and equal bilaterally Ear, Nose, Mouth AND Throat - Ears: both left and right external auditory canals and TMs are normal, no external deformities Nasal exam: mucosa is pink, septum is midline, visible turbinates are normal on anterior rhinoscopy Mastication: teeth appear intact Oral Cavity and oropharynx: mucosa, hard and soft palates, tongue, tonsil area, posterior pharyngeal wall, lips and gums are without lesions Neck: appears symmetric, and on palpation is without masses or lymphadenopathy Thyroid: slight thyromegaly that is tender throughout. No asymmetry or thyroid nodules on palpation Cranial Nerves: II: Pupillary reflexes normal III, IV, : EOM normal V: 1,2,3: normal sensation VII: Normal strength in all divisions IX, X: Normal voice, palatal elevation and sensation XI: Shoulder strength normal XII: Tongue mobility normal Neck Ultrasound: 05/17/2023 Ultrasound Machine: ModusP Transducer: Linear 11 MHz Regions examined: Thyroid Sagittal and transverse views were obtained. Color and power Doppler were applied when indicated. Left Thyroid Lobe: lobe measures 1.88 X1.53 X 3.71 cm Right Thyroid Lobe: lobe measures 1.85 X 1.60 X 3.76 cm Isthmus - 1.58 X 0.43 cm The thyroid bilaterally is fairly homogeneous without honeycomb appearance, there are no concerning nodules based on my ultrasound today. Procedure performed by Latasha Bobo MD ASSESSMENT: Sheyla Lea is a 16 year old female following up for thyroid nodules. I do not see any concerning thyroid nodules on ultrasound today however she pain and tenderness in the area of the thyroid. Her grandmother who is with her today had hellen's thyroiditis and had pain in her thyroid and therefore had thyroidectomy, patient is concerned about that - we will repeat thyroid function tests PLAN: - TFT's ordered - TSH, free t4, and thyroid antibodies TPO Medical Decision Making: Problems: Low: Stable chronic illness Data: Unique test(s) ordered: 3+ Medical Decision Making Level: 3 - Low Latasha Bobo MD Allergies As of Date: 04/23/2023 (No Known Allergies) Date Reviewed: 04/23/2023 Reviewed by: Ayesha Maddox RN - Fully Assessed Reason for Visit: Follow Up [171] Primary Visit Diagnosis:Thyroid nodule [E04.1] Order(s):US THYROID/PARATHYROID (POC) HNI USE ONLY? [[id number]] Order #: [id number]. #:[id number]: 1 TSH BLD [SQTSH] Order #: [id number] FUTURE T4 FREE/FREE THYROX [SQFT4] Order #: [id number] FUTURE THYROID PEROXIDASE ANTIBODY BLOOD [SQMICRO] Order #: [id number] (more content not included)... Normal [facility] Coding Summaryon 02-05-2023 Coding Summary [facility] 64 NdjqzowiCSm4oYh+PGhlYWQ+PE1 BMTOlJ58ijURtrV4eU1KLQUxJNq hdFSPPHGzXVuNwnzTlKU2ghEFlJ XJu IC8+DI0vZLTyEyyfkORzz2S0aFA 5L66kwz1vSViumTM8IMWuEuXwiv iqj6nwwHr3CJofDlupUdEg RHXziT04GAJ1vS59Rz50tGDdgXT gc7zekHr3SmVrCCAzFAN3cDuvGU tbb8AuFBZkP54ecVFgl0W8 LNNfvBrzoMCnCsVvwRM3rW8fBCz nbzbsb3fptygaTrs8wt63mNXsx3 P9bTU2D1MpyxY4BWOxvYLq ChcdcHHHeE8gomtnb3tqsyhwKqM eSRGcXCv1EKj6UUFnyKlxBfHeMU 72JAA7WQMvjmUeS7DjINFg mPxbGhT7j0G0Fr1BU0EMLgowZ8T NTUFSWTwvdGQ+AK93pt93X7MsXw qcQwa6QZWlVVM4yVJ4sI4n ITJjFAqnh8L9cXC5T8CcgcYkej5 xt0adNAOhMNgsO57lmOVky3F2SY VfoNI3OAWpkAxaDuLipZ66 Oyc+WVBifJygn1BbCpfsk9bze4e bdTh4LjmtCOCklgGqnTzdVGW1q6 QeVx5rDDCjbOB9cHZ3hQ6i MzQtQgA0PGqoT583MqCauEOlHhs dH85uZ0AtsFR+WZLcYqf1TUOoeI hiWU1wI8FjZHUyxkhagXTh hMrhZB4xWBYieqjaHUFlvJ9uLXQ wW2j6WsCnEpY0XJvrF9VsMBKsqm boDs09qV6tKbZgOdP4CEvi B1NrnzN2BAIekBSjGEueNPL5W70 kc2O4HYSrVTTqVUO3gMU5bW0ksS lnbjogbGVmdDsgdmVydGlj AJkaZCnoX096KWFzuAsgCtWjUGi uZyBEYXRlOiAgMDkvMjIvMjAyMz wvdGQ+XIWhPGI4cAswVZQj vRWmGHjbUp7imGvaaHisZL6bZOA ytdegSFCgiS0mYPXltQGuiUcqAE 8uPUMiocxjb062HxCnXNX9 EMRohSZqA9UzrT9pGzCuDVCjCJN cL5SibESgFHgsQ269WWgaIzJ1SS JrdyZnT0EsITSumHtdIsK0 k7H0Tq8Ud6PodwavY8UzkMLfOuE uSyszJLs3I3UdZubyyAF+PC90YW GqHN01FAc5TOP7gJcnJWtl EAZzA2ZutW9uAvTdETZdNKZqDwe +PHRhYmxlIHdpZHRoPScxMDAlJy RlgAzfEA5wSx3nPWAgTTIo kHwdsAAuRnRqy6sfWSUeBNgoRQ2 daBrgH6NkiGD6FGCbw8h6Ly78Q3 9dR3NnpJS+NRYuuTR0dXK3 hN5wThRzYjK7LSboT176DbMgvAC oBhqnx7xwn2fntMw1GgH1SCRhcj QvcGyfTNS4w6EaQd86B95l IHdpZHRoPSIxNSUiIHZhbGlnbj0 kuR8xLq5+SCRiqOH1aXH5eA5kPt QyPrG8HEujQ813AqIcmMMp Wypms0cdf6adpCf7JuIxFBPukoE iuBzkLYO8q8QlZw58T2VkaDebs6 HjVqz8zm34xIUla5X5rEX6 H3FoAAJaffxpgDZvwIhcFF0dOEM zcywnAPIfvH6sPGOqI3s5TeGaAe E4BAakR9QziuI2TIWdjGHa EVOllKAGdT5bwwyvd0chcdwsLlO hISHbLUn2MDl5BRObsIomLhCdFN K9FxT5WLC0jILtmI9ntTds egareT1uMrq+SRD0uICzhMCFWK4 lOjwvdGQ+QVVfJIK3oBfzAQhfDC ZgcJ8kOJBrX4t9BcNeKjB3 GGqhW0QcgkA6GMWurMKnEOZibZI UyF5ndihfn8lqlbhzBpPzQPXnKN a3HAu7NRWomHojRyUbTDU3 GpG5DLL0hVXsiM4lxUscpdnpgO3 wOyc+FunouKmmXYD4XYq8Q3RpJf b7PVXikPeoDH0vbBPgQNbx Yr1raQjwhSbjFN3vMOIearspy90 3MlUub9xhOGLrfSZgPWpyHHV1Z8 8ks6F2DZBgSHLhLPZ3tGW9 rK3ixBiioengyRLcwTlzvvHjoJa pQIbtHCivU506NAJqdXfhOlJgJW b3K6SgTdk8UVMcvPbaSC0q jZPrKWuiCg6veSlnxWyuWT5tBXT olhqhq330XyUve1lyPJFebSBeXS ucJMX2V79ld7K2MAXqVECs YEL3qHU0mE3kxGuewqmgvBDfjKu pcxMuzHwbGDghUMexB362BDGqzP rzZvOjxXm8N6DtSqv6TPCz bRinBC5qoGJyUIfkGq2gfAxdjCw tHN0zBOGqzkbqa809EwRsl0icSK GhuYYqJXevUZL9T11pr4W0 PNQrWIFxRII0kWD2gR9auPkmfrt gbGVmdDsgdmVydGljYWwtYWxpZ2 46IHRvcDsnPlBhdGllbnQg GEvbRPk8K8XtEkclnWM+DZ09MAR jTP04rFOcpFOkc8wagRc2TcRnRN ZeIDV6gDtaWEmco4OgPOJa S37ywNYpo7L5UDAgjNmgaWHkQiC ciUT5fF5yKLvldjnno6dfdqtmVf bvf9jbsi43iX58D86aVJea YEXcRDYnDHQmXHWasCrbrn8srI4 wIi8+YHNwoNL9cOD2oU1hEQBqBu Z3HKfjU763CoTsxXQrVysb f3scw3kxnJi1XaG3WZGxmmQasCo tCMN3h4ZzFq94E17iSEohCKNnTE SzIEVqQNXrlJlhqv5ylQ3p Ii8+CXKocKH5dLU4yH7dVnKpFdR 7XVrcD695HcWofYRnKkmmX12aK7 JvdXA+PTFkXdp2OOAbiHiw NC9tiMIlYHdmZt8mUJV4XfCmGjG wKPtfI0NvMKPjpmqqquyhfHN8CU HgBLPvzC35Uj6xnZowNDBg iPAJlH6fsrfuy9iegqihWrLiWSK oPJr1VWv2NHIdkOjmDoYzVPH1Ie Z5IAI2hQBbuC3utFgtxowa yJ2aA0NqVHJxefnoOl72jW9cCuJ wHnL8VCyxDyo+AU4KMOQQHHHuFV sPBg6JQWoIIQCPBGhHTM8Z ZkmTJC85AD78mJDdz5S7aHC6M4H lNPLykknjyiswjHR9FRJvFOXdpK 68kVJsBAvoFi4uw2M2v925 HPKxZCZplG78Vx9bsVpbHFAucXC JwF9qzsnua6kfhgugWdGdLLJvTA o7JMp9XYBmyZioRvKfKFU5 OfE0CMU9zMYdvB5qfThykpxqzB8 wOyc+MDIvMDkvMjAwNTwvdGQ+PH YoNIS8bTxvKDxoRRHhwW7t QSLvR2q9QgOaMeZ3QIxxA0YmBLJ oefkqSz07vJ0wEvWkAgO5PEojP0 UqhiS4NBBinFPfDUqpSON7 F49te7X4ZFRrPSVmICH7pVY0rM6 hbGlnbjogbGVmdDsgdmVydGljYW lhNDllD022LGEyfLyoVoU0 BZgpLLLxBF60JE78mQGvl7U1wRW 1Z1MdFDYcmhtuwmsdwTJ5YYLkGG LbxM68zTAfUBbfXn2ky0P4 j511AMOyEVKyjK04Qo0zpQdvFZL iqSTUlI5pgstkh4pmtljpXqVjFI WcHUx6RZg3ZSFnvSqwOaZb FPY0ZgS8TEZ4qJQukR4qrOkqpew igF9fPqf+IaKQAVfZYL32BT98gX Gya1L6wTD7J5FlIJRvyosl xhslfSO5ZVFfWCJjeS67gPMhDHa mZl7sn7C0z586VROeTEDzzX84Po 5noEivWDWqjHHJtG0kjnmn w6jnzxmcEjGzVVTjWZj0BXj2MMZ zoIznWdFjREP9ZhT9WQW6pCDouG 6ydLtvhcitzF7tCxn+T1A8 A2GvXjpjkWI+CV88RSKiRW72xPA vvGNun3zleKq5CiTnCQCiWYY9tU zvOHeky8DaXXLhX29akPYq d3I6MKYlaHzjcFCqPhYudDU1xW3 xPHggqfhli2awnpuvAyjmi5newb 54qT93K00vQGaeUAEbBDCr HJRmJQRyjXjvpl5nqB0tDs3+PGN dtRC3uZG8tK8yCqBjRjI0SPgkU8 48BwHqbQXeYhcna1kyq5xz wDz9NkZkWNLlmyKviBysFUG6u2Y uKr34K43yLThfCZNgVNBuDEAfLG EziHsref3yzG2qKq0+PC9j d0nkjh35uW85zAW+ZGVvNFY4iNg rSGhnNXDfrL9vOOarYkS3TYTrUq MvzJ59aDPrHBclTq5xdJre qYmiWJ9lXWPpjgoqy139JnJpb3t oHQSgsQIhNXigBRA1K23ry0I5DY IjGRSeRPC7cHG5tV4hjGpn bjogbGVmdDsgdmVydGljYWwtYWx oZ919NCCfnNmcDhVngYAxU4sdhi EVKE2uApxvuOW+PHRkIHN0 wOzxMVgiFSEtbW8eOGPyF9j8SqI tGaD7QUpfX3VokhO4WXYzdBGhTJ SbjYOQdZ0baewcu0yxtewn EhJoVMOmFGl5YGy3NMXvuCndEwH lNTF3AiK3IYE7xXTgaS6fqWqdxh gccE0zQlg+RklOOjwvdGQ+ IOWcZNK8vBgqHEksAWEmnY3lJPX fW9v1CpFyDqA8XJoeF0HqjuI7NS VsoRAuOINuuPEQaT6oobea f5sjkugaVxZrKDIzFXz7XSi9QHO ghOwsYfYgYHS5XjF7STU8rJZbgF 5xjVdvxksuvF9cXke+TVJO OjwvdGQ+QRGcVDM7qJlzETidACV naZ6yOUIkV9m4DoOeSqV1ZLbwC2 OpfsV0AZUswTQpMQNhfZNL kY1vxmxvq9bixcpkYhGnCWIjCPb 9FQm7ENVcpVtmTcMkJNO0BtU5WB Q7eOPygM3iuJxvlepwnM3s Oyc+YSJ7PTV6ZX27DP30D6IyAvr vdGFibGU+PHRhYmxlIHdpZHRoPS hmFUDyQjStgDekNA6vGs8q ZGV (more content not included)... Normal [facility] ED Clinical Summaryon 2022 ED Clinical Summary [facility] ? Urgent Care [address] [place], [place] [id number] Clinical Summary PERSON INFORMATION Name: SHEYLA LEA Age: 17 Years Sex: FEMALE : 2005 MRN: Acct#: Visit Reason: General medical; HEADACHE, RUNNY NOSE Arrival: 01/27/2023 17:33:58 Discharge: 01/27/2023 19:00:00 LOS: 000 01:27 Check In: 01/27/2023 17:33:58 Checkout: 01/27/2023 19:00:00 Address: [address] [place] [address] PCP: Aime Goff DO PROVIDER INFORMATION Provider Role Assigned Unassigned Zara Fleming [employer]CH[employer]ECT Nurse 01/27/2023 17:38:07 Chetna Rodriguez PA-C ED PA 01/27/2023 17:40:22 VITALS INFORMATION Vital Sign Triage Latest Temperature Tympanic Temperature Temporal Artery Pulse Rate O2 Sat 96 % 96 % Respiratory Rate Blood Pressure / / MEDICAL INFORMATION Medications Given: Allergy Information: No Known Medication Allergies PHYSICIAN DOCUMENTATION DISCHARGE INFORMATION: Discharge Disposition: Home Discharge Location: Home PATIENT EDUCATION INFORMATION Instructions: Viral Respiratory Infection Follow-Up: With: Address: When: Aime Goff DO [address] [place], [place] [id number] DIAGNOSIS: 1:Viral upper respiratory illness Patient Understands: Comment: [facility] ED Note-Nursingon 01-27-2023 ED Note-Nursing covid back at time o f discharge. aware of results [facility] ED Patient Summaryon 023 ED Patient Summary [facility] ? Urgent Care [address] [place], [place] [id number] PATIENT DISCHARGE INSTRUCTIONS Patient Information Name: SHEYLA LEA Age: 17 Years Date of : 2005 Reason For Visit: General medical; HEADACHE, RUNNY NOSE Arrival Time: 01/27/2023 17:33:58 Primary Care Physician: Aime Goff DO Attending Physician: Chetna Rodriguez PA-C Comment: Patient Education With: Address: When: Aime Goff DO [address] [place], [place] [id number] Viral Respiratory Infection A respiratory infection is an illness that affects part of the respiratory system, such as the lungs, nose, or throat. A respiratory infection that is caused by a virus is called a viral respiratory infection. Common types of viral respiratory infections include: ? A cold. ? The flu (influenza). ? A respiratory syncytial virus (RSV) infection. What are the causes? This condition is caused by a virus. The virus may spread through contact with droplets or direct contact with infected people or their mucus or secretions. The virus may spread from person to person (is contagious). What are the signs or symptoms? Symptoms of this condition include: ? A stuffy or runny nose. ? A sore throat or cough. ? Shortness of breath or difficulty breathing. ? Yellow or green mucus (sputum). Other symptoms may include: ? A fever. ? Sweating or chills. ? Fatigue. ? Achy muscles. ? A headache. How is this diagnosed? This condition may be diagnosed based on: ? Your symptoms. ? A physical exam. ? Testing of secretions from the nose or throat. ? Chest X-ray. How is this treated? This condition may be treated with medicines, such as: ? Antiviral medicine. This may shorten the length of time a person has symptoms. ? Expectorants. These make it easier to cough up mucus. ? Decongestant nasal sprays. ? Acetaminophen or NSAIDs, such as ibuprofen, to relieve fever and pain. Antibiotic medicines are not prescribed for viral infections.This is because antibiotics are designed to kill bacteria. They do not kill viruses. Follow these instructions at home: Managing pain and congestion ? Take [id number]-[id number] and prescription medicines only as told by your health care provider. ? If you have a sore throat, gargle with a mixture of salt and water 3?4 times a day or as needed. To make salt water, completely dissolve ??1 tsp (3?6 g) of salt in 1 cup (237 mL) of warm water. ? Use nose drops made from salt water to ease congestion and soften raw skin around your nose. ? Take 2 tsp (10 mL) of honey at bedtime to lessen coughing at night. ? Do not give honey to children who are younger than 1 year. ? Drink enough fluid to keep your urine pale yellow. This helps prevent dehydration and helps loosen up mucus. General instructions ? Rest as much as possible. ? Do not drink alcohol. ? Do not use any products that contain nicotine or tobacco. These products include cigarettes, chewing tobacco, and vaping devices, such as e-cigarettes. If you need help quitting, ask your health care provider. ? Keep all follow-up visits. This is important. How is this prevented? ? Get an annual flu shot. You may get the flu shot in late summer, fall, or winter. Ask your health care provider when you should get your flu shot. ? Avoid spreading your infection to other people. If you are sick: ? Wash your hands with soap and water often, especially after you cough or sneeze. Wash for at least 20 seconds. If soap and water are not available, use alcohol-based hand housing property manager. ? Cover your mouth when you cough. Cover your nose and mouth when you sneeze. ? Do not share cups or eating utensils. ? Clean commonly used objects often. Clean commonly touched surfaces. ? Stay home from work or school as told by your health care provider. ? Avoid contact with people who are sick during cold and flu season. This is generally fall and winter. Contact a health care provider if: ? Your symptoms last for 10 days or longer. ? Your symptoms get worse over time. ? You have severe sinus pain in your face or forehead. ? The glands in your jaw or neck become very swollen. ? You have shortness of breath. Get help right away if you: ? Feel pain or pressure in your chest. ? Have trouble breathing. ? Faint or feel like you will faint. ? Have severe and persistent vomiting. ? Feel confused or disoriented. These symptoms may represent a serious problem that is an emergency. Do not wait to see if the symptoms will go away. Get medical help right away. Call your local emergency services (911 in the [place] Do not drive yourself to the hospital. Summary ? A respiratory infection is an illness that affects part of the respiratory system, suc (more content not included)... [facility] Coding Summaryon 01-20-2023 Coding Summary HTMLBase 64 AqtquwvaQHz1vFa+PGhlYWQ+PE1 ZWHOzV49ztQOddF7kA6VKECtROq owRYEEWFmLYhDlaiUxYF9ecZTdC XJu IC8+LT2zZKUdEtkacXGzt8F2xPD 8N29ctg8nASlzvQI9GWYwNiOkvj vlr3mrsDd5IDfcFobkIjJj AKYcwD39NHI2oZ78Xa92bUSwtIO la8mgvEq0NsLdTUCdZPB4xRkbZZ qlh0IaJFDhT79kdJXdq6R7 WJEqoGzlnDQlRsZgxEU4sG6nYTs brmgwg0jvzjjoDkn4fi67xSDkj7 B8wFJ9V4ZjymX1JPAdoEHq HgqbaGHFmJ0qgafwp0oncfqtUoD qGPWvJWi2YAj7PEMazCcqYaLeEB 37VAC6VDNvafFxY3ElPNCf uNmrRuK2y6H4Sr6QW9SKRfvaB6F NTUFSWTwvdGQ+SC45bq69N8MdIg yrKuo0FGDtQXF0wMQ0xV0j ISKxCXhhl2O5bML9U3WcqxRegi1 gm8omVTBkADdlK56ydIKer5Y9NZ EqoIN7NLBrjUlhYkQutO10 Oyc+EOSyjXsio2LjHbiuu2oks3s ekZs7MaquKHOvtyIodYsgXTO1v1 NbYj1sCXQbuYN5oRR6rR7z VwGaCqY6NTysO907McFigJLmKms aH53hO2XykUY+FKTxUgl0YRFgjH ssLL4iH5UkNBVvanwufYOj tAddUE5xRGVcmiivCKJmeC4rCQQ hH4c4KvUxIjW9IJunM2JwKXFhnb puBs32kF6fSoKvBdS5KKxa L5XqaxW0ERFqyYUcOEqlNXS2Z65 ef2N4IKEhRWHrVNY8nCG2rY4zrA lnbjogbGVmdDsgdmVydGlj WSeuBYjfR546EMIxlIpjWaHsZXo uZyBEYXRlOiAgMDkvMDYvMjAyMz wvdGQ+UMDuQRD1bWaiJMTw qUXnYRxhOe5zoBazlMocOE1jDAQ olgucHWNzhG8uIPZojZUqjUenJI 4rQTLvppcih448FhGiODY3 KRYqmRGwS8QnaZ6lAiRlJZIkQYV yU3KkbAYiXLjiL234LBzcEpI2NR DgneRzR4QrLWNfbCydCxS4 t3H9Ea3Zq4NjndmfO0BuzDQsWjN rHaiyHMx0U4HgNdrqoTY+PC90YW KpAZ04KCo6EWX4eBbkEZnf VGHyL4OsgC5rYsLePZZtCFJkDra +PHRhYmxlIHdpZHRoPScxMDAlJy SwkBdtFY7yKa3jFCQxNOBz wJgcwDFsByJuo4jrRNPkAHoyCV1 ruWbfM7GnnIG5CKKnb7z0Qv53Y5 4oY0CuwZV+GYHdxJT8oSK0 kF6ySrIzKeH8PFahD035VxHpoTU pJwshl9ame4onrRq3MqK1GXZxsg CbzAjhDII9q5ZvXz06O67r IHdpZHRoPSIxNSUiIHZhbGlnbj0 isC3dJs5+RDQpmSO9zOF6hE2oVk CwWqC3ESplJ593ArOwrBEj Arvkj9xhx9kipKv0MuFnCLGvdrD gxGjgCPL3k9BcJj48Z8MufJeaa1 IbWjy8wz02dMSmn8J1kNR6 Y5GbLPYfwkyioFQhjMgrHQ7jYLQ zcylpHQNuwU9rOPKgD6o9NmXmFy V6GMflD6SwbfJ9QADfdMVn IIKksSDArF8lzykli8nnlnmqJcJ eTIOdJGe6BNb5GYVojCfkOmUvJC E9BmK5OXQ6xODznR6qsIfk ivatdR0rKlq+JWO0fNZvnIFGRA3 lOjwvdGQ+PZUlOBE9rUabJUlmLA CeqQ4tPSRjC2g9ViUrLtE1 WIspW3WwgkU1DGMztCZfFSDnbJQ CzL1zwkcdg9amfpuqMcVjPCPpVT e2TCt7UYWxaDhvVhKiEDX6 WwJ3QBC7fNBziX8xjCztvxsvkA1 wOyc+MjuokTcfBAL9TQs2L1DcXe l8DAKnaGylLW0xvQBmLCmo Dw0vnOpuqUruOL9wTNTinpfhn44 5QeWdo2jgZJEbeWUkOOumDHX5G0 0gk1G0UPBiIGJwWAP5kJX8 dD8arEcppibxdFCydMdcvrAwlHc pUAbiOMkyD557VFStnNipKoWgIZ p0P1OpYue3NLAgnJyaOV4j iDMvUXjsPb9qqZhkcEoqVL4xRZH cnkmdb624JzEaa0eoOCHsbEAwNN vjFTO9J31ue2H6SPOzSOGv GCY5lFZ6cZ6yvHsvhidouSKheMc zlpEezCmhBBipHFgaP364FITcbG zvYxCfoMm9J3VqSnf1KFVi vVajLT0uxXVsQHqjTq7jxDyrwUd sPW1kCMStjcofy159FyAdu8ipLT VizRJfPKbcENV8Y78ix3U4 UPByMYHsWPZ3cYJ6dE5syWgagnc gbGVmdDsgdmVydGljYWwtYWxpZ2 46IHRvcDsnPlBhdGllbnQg RSvnHCj5N8IdYulmqRW+NJ68NXJ vYE61qUUfyTIei2tyvBf9AmAcOH XcDFZ8bHbsSRnmt8EuUPQq K17eeCIfu6V8LITmaSbwbYJpQeS vhKP7oV9vEHpbengqi1ofndqqBe rva8dwoe39bV18T29lAIqr YTUqMJGgUWImDMDmyFacpa8pvK7 wIi8+TWRzpQK7xYP9wC5kJXKuRi X2RHayJ958OePmpOTyQliz q7abd2qytUd6MxL9FAHlooRriVd pUEW1u4OeXq22J24wTEgiUIGwVK FkAEIdDHDdaVmttp8xsF7i Ii8+ILZdzZH2cMQ9vM8rGnJaPlM 6ZVsiW674ScEtxAUwTnspZ21bM9 JvdXA+ISCgIar6UVWpnZhp PR1qaMNrHXyeFc5pIGO7JvGuPsW yRZjiN5XwSXUujvcchebrnEO2GR QaHXErsN46Li7dvWltTKUx uHSKtX7zalwta5xuumxoAjMtUCW wQBc1QXf6CUTriZuxDuFyYYK9Ep W9WKZ0fDOnvJ7hhJumfyys aJ4xB4JeGQObpfvfTv82vS1dYrU dTcD9XJzhQpv+PQ1NBBBHBOYzAN aGOm0UCYkLGFGPXCyLFE7W NotXNR56WG12fHBzl6M0oDI7I0F tUWVzdfvikmhfqGQ3TEKvHUAuuS 95jDPbQUphOt0gx4B1v852 TTRrTYEfbT27Lk7whZyaEVAshGR CfP6pazqjq3vvzmpcSaPfZRAlPN y7HRh7YUHopTxsTbWcGWS7 NrR5PEC0sPIjrX4btNkmgapymJ0 wOyc+MDIvMDkvMjAwNTwvdGQ+PH GfEVP0aPbnLEvlMOHpsF7d MDLnK6z0FqUcQaS3FMafH3WiALU keekeIi51mV8cWlFkPaP5HZceE4 ElroY0GLRoiNRxFVerYYZ0 Y92nl9V9RSQgIPFsTJP0wGE7qF2 hbGlnbjogbGVmdDsgdmVydGljYW fsZRhpW346UIIbuMxnXfF0 EYlaSQFqNN42SM43qHPuz0G1yEW 9K9HyHOYkvhseubrdjIK8MUBmTT FcaC76pXYkMKwxSh1hv0K4 m482RRCiFXLytO86Rx8xvKktFBH lzSZDwD2axrvsh0xihrfqTxWeXE UcOBw6XSn5OFBamWxyHuVk LSY4DqK5QUM0vGWgoJ2lnZbffgj joD2kEhq+AwPXGPiILV48ME84jH Ykx7T7qPZ8D4UpVDTcxwss azqcuXQ2WHPgNKKydA58nVYcHJb sDk9hv7L0l217SCXpXXIngB81Nz 2thIzhJLRvuDCPqQ0rzcwv n9mxhtcxTaAlVFQdYBg2MOt5UAP gwBiuCcGsMCP0KgW3HMB0gIXxfF 9rrAlmvvrnfI0vMte+RW1l tubodwM9AE94WR65X2XbIndhhZW ibGU+PHRhYmxlIHdpZHRoPScxMD YaExTtaDkoHC4mAz9kVZZb QYNodPisoEInTdJjg2tdWQFpJTk sXG4hoUnwQ6OowVX8WHZil0l2Ez 02D13sN3HneTP+PGNvbCB3 eDL0oA1vRkZdCcC5RIqfM744ZpP heRIdDkvhf4keu9gvkLb1PtIeHH RopkPzjBexRSZ6n7FvKw38 U00tEQvvYSUkWAOkWRJbTAZanDd lxc1byX3cDw3+ZATqcTZ3yGZ1yU 7mFnYqBvJ5YVmfB538UqOc eRMeGzhgG43iS7OafNB+PHRyPjx 5UCQimDvcVC9teXBaBShtEr7mAJ B4TqTaEqMdBJlpH0KmOQPb xxffrxrjeVM1PDBwMRFufX28Tg3 agSfeQi5eZHZpNCI6XIGigNLyX0 IzdW2wQyXhAAEtYXBwU2Yr zMQpTAtcG622WZulMrC7RKNdjzY sM0SzIXTxiDzaUmK4f0V5Sv2AcU djvLWjJE2sLrKjLOo1X0Em Jaz8WIZdtTweHG0moTThLUscKd4 ifOltgYpfUI7wFHMdvrspc442Ac Fen3hsFLHlnCWjCZyeBJH5 G67yp1N4SJTiNEBbCYH3mPA7zO9 hbGlnbjogbGVmdDsgdmVydGljYW ubAItcX239FENkjLigKsAD Bww2K7ExFky6ZKDplOxhXY1tpAZ jWJooJn0uaAsrtOehZC0zRQGmmm gpd354VqLcj9htDJImlDEs PYoqXAL9F90zx3H3OJSnDZCyWKU 3fTE9dZ2cdHzgkgcraJNllNvtxv SwqNmqYLwgTYodR575ABRu bXjxSf1LCrl8V5GmCwb6TIOtoCg tOX2lvJMkXFigYa4xfAhyuVwiOD 8pPUNeydcjw721PwJvv5cy XAOlvYCgUWtjEMH4A69tt7I3VIH dQKUxNWK8oFQ6yY7udKmnmjawyC VmdDsgdmVydGljYWwtYWxp S828HTBufJluVyJidBLfRyszxDJ +TF71wk53X1ZqWwbeHkv8VEWnIT G3uIT7iM5qVRInRMxnx3K2 [facility] (more content not included)... Normal [facility] C Urineon 01-08-2023 C Urine Urine Culture ordere d as a result of parameters set on specific urine dip and urine microsopic results. Mixed skin, or urogenital mar. Clinically insignificant Normal [facility] Comment on above: Performed By: #### 5 [id number], [id number], [id number], [id number] ####[facility] (DEFAULT)[address] [place] [address] 08852 .Auto Diff 1on 01-06-2023 Auto Nolan % 9 % Normal 12 [facility] Comment on above: Performed By: #### 1 6124427, 1601200, 0591024843, 4511580961, 2976845416, [id number] ####[facility] (DEFAULT)[address] [place] [address] 25321 Baso Abs# 0.1 x10 Normal 0.0-0.2 [facility] Comment on above: Performed By: #### 1 9279072, 4167833, 4992060044, 1906695367, 8280525669, [id number] ####[facility] (DEFAULT)[address] [place] [address] 27445 Basophils/100 WBC (Bld) 1.0 % Normal 0.2-2.0 [facility] Comment on above: Performed By: #### 1 2331862, 6723895, 0075838821, 4467733903, 8873249884, 7102771298 ####[facility] (DEFAULT)[address] [place] [address] 13924 Eos Abs# 0.1 x10 Normal 0.0-0.4 [facility] Comment on above: Performed By: #### 1 0486991, 6189583, 7132963279, 0466514387, 6450332363, 0684144331 ####[facility] (DEFAULT)[address] [place] [address] 33231 Eosinophils/100 WBC (Bld) 2.6 % Normal 0.9-4.0 [facility] Comment on above: Performed By: #### 1 6264548, 9246654, 9113256537, 7594274039, 4169402777, 5165119733 ####[facility] (DEFAULT)[address] [place] [address] Lymph Abs# 2.5 x10 Normal 1.3-2.9 [facility] Comment on above: Performed By: #### 1 1676350, 6619374, 5306620796, 2346840784, 6663412001, 2638370289 ####[facility] (DEFAULT)[address] [place] [address] Lymphocytes/100 WBC (Bld) 44 % Normal 14-48 [facility] Comment on above: Performed By: #### 1 2587656, 3190311, 0757037613, 2307698481, 5728828684, 5845658186 ####[facility] (DEFAULT)[address] [place] [address] Nolan Abs# 0.5 x10 Normal 0.0-0.8 [facility] Comment on above: Performed By: #### 1 8647651, 0788705, 2680880397, 7013508828, 2104841885, 5438447861 ####[facility] (DEFAULT)[address] [place] [address] 59985 Neut Abs# 2.5 x10 Normal 1.5-9.2 [facility] Comment on above: Performed By: #### 1 5354443, 9907913, 1349630193, 1244281116, 3938322153, 5336962099 ####[facility] (DEFAULT)[address] [place] [address] 63686 Neutrophils/100 WBC (Bld) 44 % Normal 44-88 [facility] Comment on above: Performed By: #### 1 7254988, 4301690, 3545322185, 7933579340, 6104694678, 9575979224 ####[facility] (DEFAULT)[address] [place] [address] CBC w/ Auto Diffon 08-23-202 3 Erythrocyte distribution width (RBC) [Ratio] 15.2 % High 11.5-15.0 [facility] Comment on above: Performed By: #### 1 3585640, 5870744, 8025218434, 0195347378, 3759859994, 3081677822 ####[facility] (DEFAULT)[address] [place] [address] Hematocrit (Bld) [Volume fraction] 39.4 % Normal 33.7-40.4 [facility] Comment on above: Performed By: #### 1 6308540, 7891776, 7880096620, 8143889907, 5519617232, 6314711453 ####[facility] (DEFAULT)[address] [place] [address] Hemoglobin (Bld) [Mass/Vol] 13.0 g/dL Normal 11.3-15.9 [facility] Comment on above: Performed By: #### 1 1378220, 7355041, 7250014024, 4952859354, 2698182311, 0772103711 ####[facility] (DEFAULT)[address] [place] [address] Man Diff? Auto Invalid Interpretation Code [facility] Comment on above: Performed By: #### 1 9571904, 7322763, 2482769862, 9095206776, 6610907489, 9271244766 ####[facility] (DEFAULT)[address] [place] [address] 62545 MCH (RBC) [Entitic mass] 26 pg Normal 24-34 [facility] Comment on above: Performed By: #### 1 3215290, 8912960, 4845951061, 7003590919, 3657265429, 6465046255 ####[facility] (DEFAULT)[address] [place] [address] 57333 MCHC (RBC) [Mass/Vol] 33 g/dL Normal 26-37 [facility] Comment on above: Performed By: #### 1 6934521, 8856752, 0920084509, 1618461202, 6092423402, 4297593572 ####[facility] (DEFAULT)[address] [place] [address] 79030 MCV (RBC) [Entitic vol] 78 fL Low 81-100 [facility] Comment on above: Performed By: #### 1 0440897, 3741911, 7502579255, 2807519197, 3936072835, 9620114012 ####[facility] (DEFAULT)[address] [place] [address] Platelet 267 x10 Normal 138-427 [facility] Comment on above: Performed By: #### 1 2426552, 6009178, 7822281759, 9071003347, 1728426004, 9471179430 ####[facility] (DEFAULT)[address] [place] [address] 90521 Platelet mean volume (Bld) [Entitic vol] 9.1 fL Normal 6.3-10.2 [facility] Comment on above: Performed By: #### 1 7534897, 4819101, 3866680991, 0736994697, 9077855039, 9219714681 ####[facility] (DEFAULT)[address] [place] [address] RBC 5.05 x10 Normal 3.70-5.30 [facility] Comment on above: Performed By: #### 1 4290411, 1237088, 9234389807, 9008189731, 2927273975, 2388306156 ####[facility] (DEFAULT)[address] [place] [address] WBC 5.7 x10 Normal 3.5-10.5 [facility] Comment on above: Performed By: #### 1 5617437, 2902688, 8895552190, 0623148340, 6294581748, 8674889768 ####[facility] (DEFAULT)[address] [place] [address] 47442 CMP Standardon 01-06-2023 eGFR Non AA >60 Invalid Interpretation Code [facility] Comment on above: Performed By: #### 1 3695319, 4162022, 1688772553, 5851815578, 3835132564, 3514403491 ####[facility] (DEFAULT)[address] [place] [address] eGFR AA >60 Invalid Interpretation Code [facility] Comment on above: Performed By: #### 1 6933503, 3508906, 2722924363, 4030777499, 5789439204, 0124782861 ####[facility] (DEFAULT)[address] [place] [address] 42996 Albumin [Mass/Vol] 4.5 g/dL Normal 3.5-5.0 [facility] Comment on above: Performed By: #### 1 3046152, 2277624, 6950833884, 2425968774, 3514758929, 0510939188 ####[facility] (DEFAULT)[address] [place] [address] Albumin/Globulin [Mass ratio] 1.3 {ratio} Low 1.4-2.6 [facility] Comment on above: Performed By: #### 1 3518635, 2305731, 4082797357, 3363666460, 5474561889, 1566641650 ####[facility] (DEFAULT)[address] [place] [address] 52971 Alk Phos 66 IU/L Normal 32-91 [facility] Comment on above: Performed By: #### 1 9836784, 2026159, 1431725203, 1575323647, 0732855870, 3592798907 ####[facility] (DEFAULT)[address] [place] [address] 45350 ALT [Catalytic activity/Vol] 21.0 U/L Normal 8.0-29.0 [facility] Comment on above: Performed By: #### 1 4735045, 6062853, 0544257058, 4337208772, 2830794307, 6637619027 ####[facility] (DEFAULT)[address] [place] [address] 71986 Anion gap [Moles/Vol] 9.5 mmol/L Normal 5.0-19.0 [facility] Comment on above: Performed By: #### 1 3301701, 8810422, 1012564135, 4020820224, 7956152384, 4976875263 ####[facility] (DEFAULT)[address] [place] [address] 01750 AST [Catalytic activity/Vol] 20 U/L Normal 14-37 [facility] Comment on above: Performed By: #### 1 7717769, 0865452, 1947529025, 9822325849, 6754244052, 0938812401 ####[facility] (DEFAULT)[address] [place] [address] 70516 Bili Total 0.4 mg/dL Normal 0.0-2.0 [facility] Comment on above: Performed By: #### 1 6562973, 7919119, 5046060966, 6447875014, 6374269377, 3399338424 ####[facility] (DEFAULT)[address] [place] [address] 31269 Calcium [Mass/Vol] 9.0 mg/dL Normal 8.9-10.3 [facility] Comment on above: Performed By: #### 1 4133750, 0291699, 3068717685, 9523085572, 8938497019, 3093680993 ####[facility] (DEFAULT)[address] [place] [address] 02608 Chloride [Moles/Vol] 106 mmol/L Normal 101-111 [facility] Comment on above: Performed By: #### 1 3733557, 5677991, 3826101125, 5807639586, 6109389314, 9534188743 ####[facility] (DEFAULT)[address] [place] [address] 75550 CO2 [Moles/Vol] 23 mmol/L Normal 21-32 [facility] Comment on above: Performed By: #### 1 9034498, 5157503, 1397526904, 9148740283, 0182995638, 5607899927 ####[facility] (DEFAULT)[address] [place] [address] 59789 Creatinine [Mass/Vol] 0.73 mg/dL Normal 0.30-1.00 [facility] Comment on above: Performed By: #### 1 3924799, 5204423, 4601753822, 0429816443, 2843446022, 5511172966 ####[facility] (DEFAULT)[address] [place] [address] 36436 Globulin (S) [Mass/Vol] 3.3 g/dL Normal 1.5-4.3 [facility] Comment on above: Performed By: #### 1 3525571, 1195264, 8182380147, 0407041954, 9239593302, 1775537580 ####[facility] (DEFAULT)[address] [place] [address] 23246 Glucose [Mass/Vol] 95.0 mg/dL Normal 56.0-144.0 [facility] Comment on above: Performed By: #### 1 5141112, 9418122, 1826833904, 9292010378, 8778209512, 6824740623 ####[facility] (DEFAULT)[address] [place] [address] 53178 Osmolality 269 mOsm/L Invalid Interpretation Code [facility] Comment on above: Performed By: #### 1 9052475, 0265062, 5382390636, 5221557545, 5791369155, 0789338602 ####[facility] (DEFAULT)[address] [place] [address] 71875 Potassium [Moles/Vol] 3.5 mmol/L Low 3.6-5.1 [facility] Comment on above: Performed By: #### 1 4870149, 9887473, 0646226508, 6365781619, 3101140224, 0846246842 ####[facility] (DEFAULT)[address] [place] [address] 30802 Protein [Mass/Vol] 7.8 g/dL Normal 6.1-8.0 [facility] Comment on above: Performed By: #### 1 9856200, 7537557, 3973120093, 5471417403, 8633658522, 4390008346 ####[facility] (DEFAULT)[address] [place] [address] 97749 Sodium [Moles/Vol] 135.0 mmol/L Low 136.0-144.0 [facility] Comment on above: Performed By: #### 1 4683676, 7931642, 3848291142, 1259179827, 3320922320, 7212908258 ####[facility] (DEFAULT)[address] [place] [address] 14300 Urea nitrogen [Mass/Vol] 10 mg/dL Normal 8-26 [facility] Comment on above: Performed By: #### 1 6647070, 5143584, 2052247579, 1416770388, 3003131478, 2422423924 ####[facility] (DEFAULT)[address] [place] [address] Urea nitrogen/Creatini ne [Mass ratio] 13.6 mg/mg Normal 4.6-16.2 [facility] Comment on above: Performed By: #### 1 2245517, 8391158, 0380131934, 0964135246, 4021594047, 4959941269 ####[facility] (DEFAULT)[address] [place] [address] 84120 ED Clinical Summaryon 2022 ED Clinical Summary [facility] Emergency Department [address] [place], [place] [id number] ED Clinical Summary PERSON INFORMATION Name: SHEYLA LEA Age: 17 Years Sex: FEMALE : 2005 MRN: Acct#: Visit Reason: Abdominal pain; ABD PAIN Arrival: 01/06/2023 19:25:17 Discharge: 01/06/2023 20:52:00 LOS: 000 01:27 Check In: 01/06/2023 19:25:17 Checkout:01/06/2023 20:52:00 Address: [address] [place] [address] PCP: KEVIN STOKES PROVIDER INFORMATION Provider Role Assigned Unassigned Rock RN, Maritza Cramer ED Nurse 01/06/2023 19:33:46 [place] Del Cid-C ED PA 01/06/2023 19:41:56 VITALS INFORMATION Vital Sign Triage Latest Temperature Tympanic Temperature Temporal Artery Pulse Rate 89 bpm 89 bpm O2 Sat 100 % 100 % Respiratory Rate 16 br/min 16 br/min Blood Pressure /76 mmHg /76 mmHg MEDICAL INFORMATION Medications Given: Allergy Information: No Known Medication Allergies PHYSICIAN DOCUMENTATION DISCHARGE INFORMATION: Discharge Disposition: Home Discharge Location: Home PATIENT EDUCATION INFORMATION Instructions: Constipation, Adult, Efkm-do-Dxhk; Abdominal Pain, Adult, Nbdj-eq-Imbq; Abdominal Bloating Follow-Up: With: Address: When: KEVIN STOKES [address] [place] [address] Within 3 to 5 days DIAGNOSIS: 1:Generalized abdominal pain; 2:Constipation Patient Understands: Yes - Patient/family/caregiver verbalizes understanding of instructions given Comment: Normal [facility] ED Patient Summaryon 023 ED Patient Summary [facility] - Emergency Department [address] [place] [address] PATIENT DISCHARGE INSTRUCTIONS Patient Information Name: SHEYLA LEA Age: 17 Years Date of : 2005 Reason For Visit: Abdominal pain; ABD PAIN Arrival Time: 01/06/2023 19:25:17 Primary Care Physician: KEVIN STOKES Attending Physician: Ean Solorzano MD Comment: Visit Diagnosis: Diagnoses This Visit Abdominal pain ([id number]) Constipation (K59.00) Generalized abdominal pain (R10.84) The Pharmacy at [facility] is open Wednesday through Wednesday from 9A to 6P and Wednesday and Wednesday from 9A to 5P Prescription Information: If you have been given a prescription for narcotics, seek immediate medical attention if you have any difficulty breathing or any sudden status changes such as confusion and sleepiness. If you or anyone you know is experiencing suicidal thoughts, mental health, alcohol and/or drug addiction problems; contact the [facility] 07/12 Crisis Hotline -Text 2HAKK nn 132134. If you received any narcotics, sedation, or any other medication that causes drowsiness for the next 24 hours, unless otherwise directed: ? Do not drive a car. ? Do not operate machinery such as power tools, lawn mowers, drills, sewing machines, or stoves ? Avoid alcoholic beverages and drugs for allergies, nerves, or sleep ? Do not make important personal or business decisions or sign any legal documents With: Address: When: KEVIN STOKES [address] [place] [address] Within 3 to 5 days Medication Information: The exam and treatment you received today in the [facility] Emergency Department were for an urgent problem and are not intended as complete care. It is important for you to follow up with a doctor, nurse practitioner, or physician?s anesthesia assistant for ongoing care. If your symptoms become worse or you do not improve as expected and you are unable to reach your usual health care provider, you should return to the Emergency Department, we are available 24 hours a day. For those patients who have received Radiology results, the interpretation of your X-ray as given to you by our Emergency Department physician is only a preliminary report. The Radiologist will review your films and if there is a change in the diagnosis you will be notified by phone. Please make sure you have provided a working phone number so we can reach you if necessary. In the event that you had a lab culture while you were a patient in the Emergency Department, you will be notified by phone if there is a need to change your antibiotic. Please make sure you have provided a working phone number so we can reach you if necessary. [facility] Emergency Department has provided you with a complete list of medications post discharge. Please inform your [employer]ator [employer]/provider of your visit and for further instruction on these medications. Any specific questions regarding your chronic medications and dosages should be discussed with your primary care physician(s) and/or pharmacist. Visit Information Allergies: Substance Reaction Symptoms Type Comments No Known Medication Allergies Drug Vital Signs: Vitals and Measurements this Visit (last charted value for your 01/06/2023 visit) Vital Signs This Visit Temperature Temporal: 36.3 DegC Peripheral Pulse Rate: 89 bpm Respiratory Rate: 16 br/min Systolic Blood Pressure: 138 mmHg Diastolic Blood Pressure: 76 mmHg SpO2: 100 % Oxygen Therapy: Room air Measurements This Visit Height/Length Dosin.020 cm Height/Length Estimated: 160.020 cm Weight Dosin.180 kg Weight Estimated: 86.180 kg Problems List: Problem Onset Comments No Problems found Patient Education Constipation, Adult Constipation is when a person has trouble pooping (having a bowel movement). When you have this condition, you may poop fewer than 3 times a week. Your poop (stool) may also be dry, hard, or bigger than normal. Follow these instructions at home: Eating and drinking ? Eat foods that have a lot of fiber, such as: ? Fresh fruits and vegetables. ? Whole grains. ? Beans. ? Eat less of foods that are low in fiber and high in fat and sugar, such as: ? Czech fries. ? Hamburgers. ? Cookies. ? Candy. ? Soda. ? Drink enough fluid to keep your pee (urine) pale yellow. General instructions ? Exercise regularly or as told by your doctor. Try to do 150 minutes of exercise each week. ? Go to the restroom when you feel like you need to poop. Do not hold it in. ? Take yahs-zvv-sgazcvt and prescription medicines only as told by your doctor. These include any fiber supplements. ? When you poop: ? Do deep breathing while relaxing your lower belly (abdomen). ? Relax your pelvic floor. The pe (more content not included)... [facility] Extra Greenon 01-06-2023 Tube Collected Yes Invalid Interpretation Code [facility] Comment on above: Performed By: #### 1 [id number], [id number] ####[facility] (DEFAULT)[address] [place] [id number] Test Urine 1on U Preg Negative [facility] Comment on above: Performed By: #### 5 [id number] ####[facility] (DEFAULT)[address] [place] [id number] U Preg Internal Control Pass [facility] Comment on above: Performed By: #### 5 [id number] ####[facility] (DEFAULT)[address] [place] [address] UA Dscyf9al 01-06-2023 UA Bacteria Trace [facility] Comment on above: Order Comment: Urina lysis Microscopic order added on by [employer] Expert Rules system. Performed By: #### 5 [id number], [id number], [id number], [id number] ####[facility] (DEFAULT)[address] [place] [address] UA RBC 3-5 [facility] Comment on above: Order Comment: Urina lysis Microscopic order added on by [employer] Rules system. Performed By: #### 5 [id number], [id number], [id number], [id number] ####[facility] (DEFAULT)[address] [place] [address] UA Squam Epi Few [facility] Comment on above: Order Comment: Urina lysis Microscopic order added on by [employer] Rules system. Performed By: #### 5 [id number], [id number], [id number], [id number] ####[facility] (DEFAULT)[address] [place] [address] UA WBC 15-20 [facility] Comment on above: Order Comment: Urina lysis Microscopic order added on by [employer] Expert Rules system. Performed By: #### 5 [id number], [id number], [id number], [id number] ####[facility] (DEFAULT)[address] [place] [address] UA w Culture if Ind Standard on 01-06-2023 Breakpoint UA [facility] Comment on above: Performed By: #### 5 [id number], [id number], [id number], [id number] ####[facility] (DEFAULT)[address] [place] [address] Color (U) Yellow [facility] Comment on above: Performed By: #### 5 [id number], [id number], [id number], [id number] ####[facility] (DEFAULT)[address] [place] [address] Culture? Indicated Invalid Interpretation Code [facility] Comment on above: Result Comment: Resu lt created by rule GL_MAGR_ADD_UA_CULT Performed By: #### 5 [id number], [id number], [id number], [id number] ####[facility] (DEFAULT)[address] [place] [address] Glucose (U) [Mass/Vol] Negative [facility] Comment on above: Performed By: #### 5 [id number], [id number], [id number], [id number] ####[facility] (DEFAULT)[address] [place] [address]1352 Ketones Ql (U) Negative Normal [facility] Comment on above: Performed By: #### 5 [id number], [id number], [id number], [id number] ####[facility] (DEFAULT)[address] [place] [address] Micro? Indicated Invalid Interpretation Code [facility] Comment on above: Result Comment: Resu lt created by rule GL_MAGR_ADD_UA_MICRO Result created by rule GL_MAGR_ADD_UA_MICRO Performed By: #### 5 [id number], [id number], [id number], [id number] ####[facility] (DEFAULT)[address] [place] [address] UA Bilirubin Negative Normal [facility] Comment on above: Performed By: #### 5 [id number], [id number], [id number], [id number] ####[facility] (DEFAULT)[address] [place] [address] UA Blood Negative Normal NEGATIVE [facility] Comment on above: Performed By: #### 5 [id number], [id number], [id number], [id number] ####[facility] (DEFAULT)[address] [place] [address] 94363 UA Clarity CLEAR Normal CLEAR [facility] Comment on above: Performed By: #### 5 [id number], [id number], [id number], [id number] ####[facility] (DEFAULT)[address] [place] [address] 21968 UA Leuk Est SMALL Abnormal NEGATIVE [facility] Comment on above: Performed By: #### 5 [id number], [id number], [id number], [id number] ####[facility] (DEFAULT)[address] [place] [address] 11518 UA Nitrite Negative Normal NEGATIVE [facility] Comment on above: Performed By: #### 5 [id number], [id number], [id number], [id number] ####[facility] (DEFAULT)[address] [place] [address] 83337 UA pH 7.5 Normal 5-8 [facility] Comment on above: Performed By: #### 5 [id number], [id number], [id number], [id number] ####[facility] (DEFAULT)[address] [place] [address] 12300 UA Protein Negative Normal NEGATIVE [facility] Comment on above: Performed By: #### 5 [id number], [id number], [id number], [id number] ####[facility] (DEFAULT)[address] [place] [address] UA Spec Grav 1.010 Normal 1.001-1.035 [facility] Comment on above: Performed By: #### 5 [id number], [id number], [id number], [id number] ####[facility] (DEFAULT)[address] [place] [address] UA Urobilinogen 0.2 mg/dL Normal 0.2-1.0 [facility] Comment on above: Performed By: #### 5 [id number], [id number], [id number], [id number] ####[facility] (DEFAULT)[address] [place] [address] Urine Source Clean Catch [facility] Comment on above: Performed By: #### 5 [id number], [id number], [id number], [id number] ####[facility] (DEFAULT)[address] [place] [address] 95574 XR Abdomen 2 Viewson 023 XR Abdomen 2 Views Examination: KUB History: Lower abdominal pain Comparison: None Technique: 3 views of the abdomen are submitted Findings: Upright view shows no free air. Bowel gas seen both large small bowel. Bowel gas seen to the level of the distal colon. The bowel gas pattern is nonspecific nonobstructive. There is stool scattered throughout the large bowel. IMPRESSION: NO FREE AIR. NONSPECIFIC BOWEL GAS PATTERN Final Signed (Electronic Signature): Jordi Maciel MD 01/06/23 9:29 pm Technologist: ELFE[employer] [facility] Coding Summaryon 12-21-2022 Coding Summary HTMLBase 64 CsinopkgITg3zIv+PGhlYWQ+PE1 ACNSnC74hlALqjH7iM1WRTGwZRp jxOQCRJCzORbUiieSmNY4kqBWcF XJu IC8+AC0vTATlFkfwcFCrj4R0eJZ 0M81zsg4aVDdbzLE9LZAfIpGxqr zvw4ompXg2VHmzEjnmRpRg BHEwtO79KTT1uB62Yw93xTUngQW vg7rlaSk4DqPyFAShOGP4uIqnZR zem4IfTQSvF56bqDIps4W8 BBXkrXyfgYFzTrMfoFX9vV1iCZx ftelmf7iahefrPln4vk81sCHvx3 F4qSR2M6TvlbH8RPYvaUAg TdtokWURlO1fushrt9urrlkhJrQ vHPQzEOw6ROg0PNIygRdjTtVxSG 78EYM1AOGigrCaU1YeFAZc cIjlJoI1x7S5Jq0TR0JTAuccO1V NTUFSWTwvdGQ+WU57xr33Z4QjHb pxGod9CJTjDBV9xTA0hP3w NEMxDKrnd0F7sWF4I2YixaHzuz8 zx9adPPGqMPmyQ69utITjb2X9UJ HyjZD1WRPbeLgzAcAgyV26 Oyc+FENeiYqki8RyCusdd1lae1r iwId1FeoeEQTupuVvbVrbRCF4i3 OqEt2dKONmzKN7uOQ2vI5a MsBbHqB0LLtaD879GtZbxKOtGgt qW47wP6TroCG+SLWrMjl1OUAhjT yuET2fG8DkBCYvgpawgSIc iHshMP3hZALkkcnaAHLskB6fTHE uK7g4AiCoJyO1OHtfD4IkAVIphv skOw17tO7hTpEoYxH2FYrz W7JxbnL5LKGrlDFrLHzyQKY5U99 hf3T1CRScCBKbXBB4vUU7rA1qlL lnbjogbGVmdDsgdmVydGlj BEytMAbbP058ZUNjxOosQuFqLNe uZyBEYXRlOiAgMDgvMDcvMjAyMz wvdGQ+IOGxUOC8xExxJZDd wRJaLRfeQl1gfLtarSxyAX7cYNC eghmdLGIxcF0yOUFwkFPzhLhrUA 7gMENhtnjry147ZlDkEAW6 REJkfCNyI9CraC3pCiPgMWFnAPW nQ1UxxKIhYVlmZ005FLyzNjK6PU SncxDrF9RnFEPxiHqzUjI2 e9R7Vl0Nm8JyskncW9JlrXMhUdC fAfsgSYp8V9MqUxndcHA+PC90YW TnOL57AAp0HOF5sHgzKSgn AWLfE8VzfB5zElUfOHIjMNDcSwd +PHRhYmxlIHdpZHRoPScxMDAlJy KxzWevAZ5yZh6fNEBpXXWy jIhtwLIgGfMby2xzBIYdSDzwUW2 mbBshP8WhdRO2IIZmw6o1Io34A8 9pI7PrbAS+SJNtxOF8kHV4 aP4yUaIhRkL3IRzzW700KeQabYX wRjuji3iej7bjtWc2WcA3KHForq VccQdcOAH7z6UaAw04S48w IHdpZHRoPSIxNSUiIHZhbGlnbj0 jcE6eXk1+IHJxeDO6wDG4rQ9bGg FlMiY2UMpfL196QmVmnKDj Zldxq6rkz5kvsDt3QgRaJFVxxoF lbNmxENY9w0HkQs93H7PbjUdiq5 AhLuu8nk01mTUrb0V2uFO6 J1SlQTWlgymgiGOfqDjcWE0wJZQ omhrcIHEdgH6cQOTbF5g3FlVoPp S8CDrzM5YucfY5VZRjpSFo JWOtpGCArF8jencwz6lpnshvBiM aTRShVTy7HFb2MQCbbVcjXkRnJA H7BgU5YMW7pCBvjB3wdFtx tskucK7uLyk+UVT0sIWslZARXG2 lOjwvdGQ+URYjONA9oEjiQZrfFK RkbL8wIRBsA8d1XcMoPoL9 HQjgA7OjqvR9UHHpgFUhCQAodEY HoJ2cqbftv3xakxhhWjGhSNAnCA q2QCe4TOYkuVlgNmYuZMR3 UpY2ONO1lBUyqO5noOwnkdrspD1 wOyc+DvnroGutRMY2JPz0N2EmXa c3XKAsbOjyAD9rtOXpIJyp Tn4tfSyfdGgsIR1nPYAojedwt55 2JmCut7jpWDYdaDHmSAzvLAB4R7 0kh4T3OBXbTZBaJMP3cSM4 jO9ijZozhylgnADpwHmqqcNxmUr zCHxtMJjeW394XATkwDlaQiUyMD r7L0QxHxk8CZEsaIgjHY2c dCKmTAjbMd9jcChvqVprZM4uUUU dyeqdj160HpQvm7bqASRdwPWjZQ vwANA6B34fv6X3THJvKKGw CVT7eAT8jF3vdWzpucytfBLhqBu tncVnoXqiYRmyYNdkJ253VADrvW luRqAqzIo7Y5PiJcs5ERJr bItcMJ9pyIUyFLqpKe4gbKpdnPe bVB3aNAIszfyde818ZmKrh8vwHV GeoONgRWvcKIQ4C14xd0P7 TPLiLZHuKWR6gDG5oE6hgKlmqrx gbGVmdDsgdmVydGljYWwtYWxpZ2 46IHRvcDsnPlBhdGllbnQg CYxpPFw6B0VqGcdtkXD+IP43GFG tST50pEFqhSQms3tzeCw6QnWcGI QhYTG8kFfsYVefr0PeCNSa P43oaKAaq8H7ROAobEihnBVxHjW ccHR4iA0dZRazdwahe2sikiwkHo dkb5qbjj97qM23B71uXSpq WSFrOBIjCSFaMITmkTictd4ceO9 wIi8+LSLjpJY5sGL2hH0lAFYmCi J7YGdzJ921DoIdhTKbCjax u8exl8ujtWn5FwZ6YFUumnFhnTu xAOD5b7GvXv50D20lUXdxANUcIX TjCTJoHOSiaRkakc3wqC7w Ii8+VIXtlPR8cJK3kE3dGuPzOdK 1YAamI463FpBtzQDiVrieW41bZ2 JvdXA+DGQuNwr9MHIwjUzf MA8vbYJgSBvaHr3wDOQ5JtKhHqY yGMytS3EuYAItyfqqgzuuySI6VJ DgEXYaoW65Eu8hyKpzSTDn hOHUrM5snliwf8evwaqrRdImJMU jLHp9JXx6HWEgaGcyHzLsVXA6Bm P4LWU6oFZjsG7eiYajoqhg tU1uG6CnPLYbfozaKm42tU7uUdE lFnF0BDexWpl+FN2HQQNFNNOiFB qMKl9CCHhEQHUPWPjNWM6B TmuSJU96VA64vOBeg3V8zJU6W8W cGIPnsujyunosiCT2CVLsUVUrgW 63tDQgEKcqOc6tg3B0q924 YHKuEOPcwG03Sm8lpRjuWKFzeST YkJ5tvdtdf5ugqkwvKkDeZGBuHE v9TSi9BIAhxCouSiBbRUV2 NkK5CFQ7vXMdhS0cyXltsbbgnY9 wOyc+MDIvMDkvMjAwNTwvdGQ+PH NjOBA7uZtbQLatBEGqwC2p YRLsA1b4TbIjQgX2WKjeB7TnBSZ cxyubVb90tH6kGqLfFbK8PTywT1 AwkhP1URFgcVDtVYctOCD9 Q91sz5V6OWZcSLAlUDU9oMO4lG7 hbGlnbjogbGVmdDsgdmVydGljYW qwHRidW563RLJvdJbaDnV6 YWlmHAKxFE59FM83bDEae1J8hTM 6I5BrNRIalbgnlreywIS1DNTeRN HvcD02nHGyLAgqId9oo0T1 x453JGGaCFZcvQ09Av6tfAenPVX dxUPXhJ3agmvdb6lacfycLpSyZD LsGOy0COa2MXPgbWzzBmSo VQL8LdH4VYG0cXQqbL0mrVmuemn pjW4lMuu+HhPODHgVGC12UZ64rU Duh9Q6iYP1A7SiLRVcduyx pnrrcOZ7GGPhLDDsnX04xYOkTGv pIm0gv7F6a632GROjFMJkiM16Kf 1ftNsxFQTgdWNKuS2zspms r4qivknrFlTjJUZoBNj3VVn2DQE rjKbgPpKtDIO0MjC9BCV6kJHcmK 8tbBijljjllP5vEcs+T1A8 B4LbAvpsdMP+WI98XVQfNN62jVK kqULtc8gjdUe4ImUaUUUeMQO1jI dzZAxzz3IdDTBfD56cqBCm k6P6YSGlhRibpFPhLmUhkCM6xH4 iDYqskqwus8ubqzcjLpetb6zwem 38iM69W40qYZrvHKLrRIEm CTTmUAGfbZmjrm5gaW4jGa3+PGN osKC9pCH7qM9bLxYvVgZ9PWiyE2 69LcNmrBLuGcscg0bix3jt bQx8QuBeCCIouhKrkBsfYCU1r3G iTe54W45kEVkfNFFqCJQsQNIsQI EylYuqak7zuT7pBp2+PC9j x8dtsq79hZ73rMM+IDPyQJG0xXz oGGaxTOPheA8dCBliZbL7NMLiVo YtoX34sUUmHPrzAx0fnSqt pJobYU9yUJCbanadf306PtVqq6r hIVUluLJpLLjlKWV6S08xo9L1SU LiRBXqUWR8ePC9yT8bzOke bjogbGVmdDsgdmVydGljYWwtYWx gI073OGPzuZkySgXcdEZjA5gkwe HUNC7aQsxtxQL+PHRkIHN0 tQgtOFwdZSGgdH8wMWXpC5c9PhY pTqH7YXriP5OjuyQ8IQTmpPWfKY HdnNQSrB1jbzbvj8jbgxqd LbQcAVZqILl6SBk2QNHlgCabVaN tKDY5NxG6WFC7wBNspA8yeLpuwt zivE5pXtv+RklOOjwvdGQ+ BZQmAGZ5wFtkLJbpJXLpkU6vUXJ qU9b9HcBuBkT1DLorR8PorxF4TK ZkuLAxAUWlpWOJvR7pejua z2pkvpqjVpGkEZAbIVk6JHu1TWE ntEkuPaYpPIY5OrK5LIG8hMFklR 1rdQxdchtzgW4kWbq+TVJO OjwvdGQ+HETaBYI0dIvgCMohQRO xiS3hJWRdR8l2CqZcCnQ8CQheW4 WvxmU6UOHrhEMzNXIchTEF wK6wbxass1zzapjwDpAsOSQsPEh 4BYd6DGXjbMjdOfCcMNO8TsR0BL Z8uXVpoK3yzDtpobbezL5a Oyc+TVN9MHJ5HK61CA85N1McNmr vdGFibGU+PHRhYmxlIHdpZHRoPS azPCGfNhXluPtaDJ5gDk5g ZGV (more content not included)... [facility] ED Clinical Summaryon 2022 ED Clinical Summary [facility] ? Urgent Care [address] [place] [address] Clinical Summary PERSON INFORMATION Name: SHEYLA LEA Age: 17 Years Sex: FEMALE : 2005 MRN: Acct#: Visit Reason: UC - Ear Pain; RT EAR PAIN Arrival: 12/14/2022 18:12:52 Discharge: 12/14/2022 18:47:00 LOS: 000 00:35 Check In: 12/14/2022 18:12:52 Checkout: 12/14/2022 18:47:00 Address: [address] [place] [address] PCP: KEVIN STOKES PROVIDER INFORMATION Provider Role Assigned Unassigned Chetna Rodriguez PA-C ED PA 12/14/2022 18:15:41 Hadley RN, Flores ED Nurse 12/14/2022 18:23:06 VITALS INFORMATION Vital Sign Triage Latest Temperature Tympanic Temperature Temporal Artery Pulse Rate O2 Sat 98 % 98 % Respiratory Rate Blood Pressure /76 mmHg /76 mmHg MEDICAL INFORMATION Medications Given: Allergy Information: No Known Medication Allergies PHYSICIAN DOCUMENTATION DISCHARGE INFORMATION: Discharge Disposition: Home Discharge Location: Home PATIENT EDUCATION INFORMATION Instructions: Otitis Media With Effusion, Adult; Antibiotic Medicine, Adult Follow-Up: With: Address: When: KEVIN STOKES [address] [place] [address] DIAGNOSIS: 1:Right otitis media with effusion; 2:Left otitis media Patient Understands: Yes - Patient/family/caregiver verbalizes understanding of instructions given Comment: [facility] ED Patient Summaryon 023 ED Patient Summary [facility] ? Urgent Care [address] [place] [address] PATIENT DISCHARGE INSTRUCTIONS Patient Information Name: SHEYLA LEA Age: 17 Years Date of : 2005 Reason For Visit: UC - Ear Pain; RT EAR PAIN Arrival Time: 12/14/2022 18:12:52 Primary Care Physician: KEVIN STOKES Attending Physician: Chetna Rodriguez PA-C Comment: Patient Education With: Address: When: KEVIN STOKES [address] [place] [address] Otitis Media With Effusion, Adult Otitis media with effusion (OME) is inflammation and fluid (effusion) in the middle ear without having an ear infection. The middle ear is the space behind the eardrum. The middle ear is connected to the back of the throat by a narrow tube (eustachian tube). Normally the eustachian tube drains fluid out of the middle ear. A swollen eustachian tube can become blocked and cause fluid to collect in the middle ear. OME often goes away without treatment. Sometimes OME can lead to hearing problems and recurrent acute ear infections (acute otitis media). These conditions may require treatment. What are the causes? OME is caused by a blocked eustachian tube. This can result from: ? Allergies. ? Upper respiratory infections. ? Enlarged adenoids. The adenoids are areas of soft tissue located high in the back of the throat, behind the nose and the roof of the mouth. They are part of the body's natural defense system (immune system). ? Rapid changes in pressure, like when an airplane is descending or during scuba diving. In some cases, the cause of this condition is not known. What are the signs or symptoms? Common symptoms of this condition include: ? A feeling of fullness in your ear. ? Decreased hearing in the affected ear. ? Fluid draining into the ear canal. ? Pain in the ear. In some cases, there are no symptoms. How is this diagnosed? A health care provider can diagnose OME based on signs and symptoms of the condition. Your provider will also do a physical exam to check for fluid behind the eardrum. During the exam, your health care provider will use an instrument called an otoscope to look in your ear. Your health care provider may do other tests, such as: ? A hearing test. ? A tympanogram. This is a test that shows how well the eardrum moves in response to air pressure in the ear canal. It provides a graph for your health care provider to review. ? A pneumatic otoscopy. This is a test to check how your eardrum moves in response to changes in pressure. It is done by squeezing a small amount of air into the ear. How is this treated? Treatment for OME depends on the cause of the condition and the severity of symptoms. The first step is often waiting to see if the fluid drains on its own in a few weeks. Home care treatment may include: ? Ovyn-dhy-phprtsv pain relievers. ? A warm, moist cloth placed over the ear. Severe cases may require a procedure to insert tubes in the ears (tympanostomy tubes) to drain the fluid. Follow these instructions at home: ? Take hrfc-fmr-byyqygj and prescription medicines only as told by your health care provider. ? Keep all follow-up visits. Contact a health care provider if: ? You have pain that gets worse. ? Hearing in your affected ear gets worse. ? You have fluid draining from your ear canal. ? You have dizziness. ? You develop a fever. Get help right away if: ? You develop a severe headache. ? You completely lose hearing in the affected ear. ? You have bleeding from your ear canal. ? You have sudden and severe pain in your ear. These symptoms may represent a serious problem that is an emergency. Do not wait to see if the symptoms will go away. Get medical help right away. Call your local emergency services (911 in the [place] Do not drive yourself to the hospital. Summary ? Otitis media with effusion (OME) is inflammation and fluid (effusion) in the middle ear without having an ear infection. ? A swollen eustachian tube can become blocked and cause fluid to collect in the middle ear. ? Treatment for OME depends on the cause of the condition and the severity of symptoms. ? Many times, treatment is not needed because the fluid drains on its own in a few weeks. ? Sometimes OME can lead to hearing problems and recurrent acute ear infections (acute otitis media), which may require treatment. This information is not intended to replace advice given to you by your health care provider. Make sure you discuss any questions you have with your health care provider. Document Revised: 08/28/2021 Document Reviewed: 08/28/2021 [employer] Patient Education ? 2022 [employer] Antibiotic Medicine, Adult Antibiotic medicines are used to treat infections caused by bacteria, (more content not included)... [facility] 11-13-2022 CNPN Telephone (ENDOMN) SHEYLA LEA ([id number]) 3 F Date Time Provider Department 11/13/22 DAVINA ENRIQUEZ ENDOMN During your visit today, we recorded the following information about you: Allergies As of Date: 11/13/2022 (No Known Allergies) Date Reviewed: 05/28/2022 Reviewed by: Carmela Pleitez Ma - Fully Assessed Reason for Visit: Appointment [186] Cmt: LM that appt was rescheduled Prescriptions as of 11/13/2022 - Norgestimate-Ethinyl Estradiol 0.18/0.215/0.25 mg-35 mcg (28) tab Problem List As Of Date 11/13/2022 Noted Resolved Thyroid nodule [E04.1] 06/23/2018 Family history of thyroid disease [Z83.49] 06/23/2018 Dysfunction of both eustachian tubes [H69.93] 05/13/2017 History of otitis media [Z86.69] 05/13/2017 S/P tonsillectomy [Z90.89] 07/12/2017 Tonsillar hypertrophy [J35.1] 05/13/2017 Abnormal thyroid blood test [R79.89] 04/15/2022 History of thyroid nodule [Z86.39] 04/15/2022 Obesity, pediatric, BMI greater than or equal t*04/15/2022 Encounter Status:Closed by BRAXTON LAMB on 11/13/22 [facility] Coding Summaryon 10-30-2022 Coding Summary HTMLBase 64 BdouzvkqDXp4pIp+PGhlYWQ+PE1 BRZHyU29duVVazG2rT6SQBXbGUx cvKOPYTRuCVeTuiyVzPD2enFPwO XJu IC8+YT9uHLHdZatsvCKie8N1hTN 8M48gpm2sYDlqoIV7XNCoPmCbci hau1gwbOg1EZgtDslfDiEb CSMwfM78TUW0wM10Ag87oAYqeTN kx8hswDe6WiQpSHEpOIR2yEheNQ nzh3CbYYXfN17maFUxm5C3 MGOypVjfdVYzDcJlyUH2zR7mRGr bkyvxh3curijvGwu4bo40hKXoc1 H1bEZ6G6GbfwC5LFBqmLBd NqdutYAWbC7ziyder0zjzibrSvA lBNZnLGh5NLk0EDIgwYzuPfYvFD 70CNN7OHVslbSzL1GmRWIj kAbmYyI6y8R2Yj8EH6BJGqdjS4Y NTUFSWTwvdGQ+NV53mc88H3NiFi nsGes5QNLwQPX0mVD0sA4c NAGbMOoyg8M2rAJ3X5YhpjTuag2 yt3rhXHCvTRreX54ybTAsn3N4XA EehEC9EOKcmAiuRoAoaY58 Oyc+TOIjuAwnp2FeLlpwt3huj4e awDe4MkciWKUrizBccAreUCW1f8 IwNv3uLOOvbEN8nFE4nJ8c OdQaTvH5FUbbE562ZqZadEPuOja aF14gL2UqhIP+FCAyEzt1TVQffM gdZT8uG8KgKXAgapezqHHn wGppRF5eSDDkgmtgPPNkrO0oWVR oZ9u6GoKfAdX0OXkmE4HdXHVlkm piZu75nZ2fAuVxJpM4QSks W4OlbmO0DVNodAWjUKcsRBF0T14 ur6O4SLLgJWIpMGM5cTW1qE1opE lnbjogbGVmdDsgdmVydGlj TBywHSrdV472SFAzeVexByUbYTx uZyBEYXRlOiAgMDYvMTYvMjAyMz wvdGQ+NATqAJW1xGzyNSOz rJTpXZdmOw2htDqmqMxoJV6yRUA plecdHDSddM6xBZVmlAIbrZymJK 7qGCOtbawtv628ZxQsJYQ6 GZPtaBWdK8WogA5vOhWbZGBqSTF xQ6HakEGxSAjgL689LMsiGbC5GQ LtwwHlU4FdAEJqiYzrAuW6 x4J8Jf0Ca6QjqgmdM2OunQBgZoC eWqqtRBy7A4TnGyfuvNY+PC90YW XsNG22RFf8PUC4vRmjMNls MGXqG7NiyZ3gBwEbJKDjZGNwVlj +PHRhYmxlIHdpZHRoPScxMDAlJy YchCrpWL5qYa4tGTQqPXWn uAwykKHxJdVsl4qfYVIcYBjsOM1 tqYcvN6QvnPT1KCAzg2v1Yh52R1 0rQ9QvmKE+IISkcJL3nPG4 oR8nRhLtSgF9FKbdD835LeIceEO hFyqvu9nvs6kfdUx1WrT1RWWqfe WbhEjwYPJ3m4AsTx50W32c IHdpZHRoPSIxNSUiIHZhbGlnbj0 ynR9yDo5+YHVfpSK3aNX7yU9vMr VnDpS7RHhkR882UrPwhSVd Xevkc7him2nstJm8TtZgGACjroM dwEykDAL9y8PaFo38S8SfeObgs0 LjLqy5nr10vHCez9M2cZH7 G3SxQBClbhqoxVQitEnrYA9mSZT weunzAMEogZ3cYMExR4r4YkXiEg X3WIlfF0YkkwI8NIYfkQMo YOGvaAKWuR1jhwqea0rrohzsEoB xNFMkCNu0CZv2YHKbbAzaJiPyNI W7UlM7OVZ5gEPuyF7ffNuj grecuE9zVhp+ZFC4jHHkgMYPHJ4 lOjwvdGQ+PNFpFHS0xUogYRlnCY DndS1dIQDhL6q1NiVqFjB4 EJsiP0RoonN5BSRifDNhTWThkQS AqF4niqwdi8abgbvaKzZvUBBpKX p6MXw2QOOioMgmLsKtAJX4 UfZ7SBO5tLAodT3mvSadzdfddQ9 wOyc+SgkpoWulUEV5CUh6Q8IwCb r7SCXupYtsMW6odNIrZUcu Mp2zqWbctIscYE5eMGSxeklxp19 7OwNpo9klKSTfmSUyBJvsGVI4U7 8dd9J8LEHiEUEjFXE4tXJ9 xP6ykQbifogtwBTjcWfbhyNteCl vNNbdGSocB684RSVzlPsuAeZyYG e6K4TaWrr3COZduSzgOJ3e mLXaRNxvZp5pvBcvdEdxNJ9xSAY ppiyyg421GcSwn5qpWCSamMRkFS xkEDU7K27qy4K7FETcWIWj SBA8cUK9rA8goZjtltfwfQCfjBw kglLbcZnvKWgdCJxzK145GVKxxO xyEwQigNc5Y3ArJqx0VTSt xPtuIL6tuMCrQJqjNm1vrCxzyYy yVT9nCLFkuwbee873PbCnz9fiJO HbsSCjSOuoPMG5O59kf2J3 RPTmUXPyQCY1wTF4pX8vzRgsxqt gbGVmdDsgdmVydGljYWwtYWxpZ2 46IHRvcDsnPlBhdGllbnQg EDkpBTx0N8PnNftnpBY+SX60BII tRS23nBIyaLMvr6sakKq8SgHcLG KyMIB2zLdjPWtav1KeXSRv L53piGPaw8J8NGZzfOiteDQvStW jsTU9mI9vQBgizcdpx9xdqvytLv odm2ihjl05gH82P49qAWfh YLGdOSVjRZTaFQYyaKrsaj3wzJ5 wIi8+GXFrgFD9fRW1yU2eVPMnVj X2RXqqS348NyFjxXEvHkap z6euc3ydaCo5JmX5ICNlbxVcoRw zIPZ4w5JlGg38W11eNIbgAWHxUY VsATFuPBPqyPzydg4ljE0z Ii8+RRTpqNS9aJP7jZ2zElQhYoO 3SJgoB239ByNfnRLzIggeI29lD7 JvdXA+WJRyKqo6OUGgnAzn JF7ncXTyNJpiRz4gMSN9WtNcWtV hINkoD8YaKCYfeibzkbbebIU0BF RuFUSuqO86Kr8ftSehKRMu nPKBnZ9qiamfh7sruphmKhNyOYO mHIn2RSg2UOLknDgeKdMsSUC5Rd K6VGA7bTFyrN2xlHxibdai jF0bS5QkGHEfvfmiWh05qP3uReO fBrX8HProTrd+UZ7DAQDZXVLnXU eZQj3KQIjYREYLLNkNNT3R LtzMVI02SK43wYMgu4T5nVX5H6L fOTHbkauruxniuOD1PFOgUVGqtO 55cXTnNSkoRq7jp4E4i903 VXXwGIMdkT77Gd6rvGenNWGlhBC FeZ6hjhaen4pnnogbNeJoKBRqPN f5NMr4GKOzwXdeKzEoXIL3 KsI9PJH8wCUujA3kkNbqglyxnY2 wOyc+MDIvMDkvMjAwNTwvdGQ+PH ZrLRH0bBqcWNdnQBUchK5y AOTsU7d6ZsTbCoF3CVumW6RjQTD xzsqdBz90dD8uVxHkJwR9AYznO8 AkpqR0GDAjzRErZSvhZPU4 A19uo2K5AQQvSAWqYDM1nTV6dC2 hbGlnbjogbGVmdDsgdmVydGljYW drUXiyV464CVTkwNinUxJ6 HEsdZRZhJO98OF84vIRcw8W0nPT 2S5EaRWLgxxyoytbxnOP0KFEtTC QiyG83cUFeYBmwSn9py0T9 e343UZIzKNSgkU58Bj0nrJaaVBR pqUFWkS5tjhhim1qwabnkUyGpKD RkGHi0RHv0IEZedXmgTqBd TCC9LnY2ODY3dTGjpU1ntAxmqyw naK4cXhz+EhZGIYnZIC71RJ94fB Fbq6W3rBR2I8GqMARhxizp vnjdbFV3APWsFSTnpF32wICeLOp hCn9fd5T3f269VYTgQZQghV53Vv 7ytHurMSCefQEHdD5hlque f5xesinpQbRmKGIvALj6FDf6HTI uvDdjLbHeNVL0SlY7WMD3gEDszS 4elQkvyxaefA0kMic+T1A8 E1EaWdwtwBZ+QB55SUKrDT44pCQ fgCPpk9gquKn4SiRmEPRoBLO5bO rfYWdbv7OhNFXcF27rlBCj u5V6TCDzlMpvbSCpGaQeoTH2nW5 fLXccvmtzs8dsmvmnMwbty8ouwg 33pC13T95tQGruRYOcGEJq VCStHNIsrXirny4osQ7rOa9+PGN hxAE5lAW9fV0rKeJsIgM3XAruW9 04ZkTueZPxVhugz5guw1ai kDo1UyWaYUCctoYeoEnlVEN7l6L wRg45Q59xETteENVxPRQlVLQgJW GwyFcjth6prN3rQe6+PC9j k1qayy91vH85gBU+OTPjENS2vJr gPClhWNBatB1aTJscVlY1XZXeYd NjkV22dRItQNnmFn8jvSgr vDmzOI7yAYDccrzcw142WfWiv9a tRDTjiBBdWScsLIF2Q33ea7C8EB YjPXTyKJE0hCM9mO0kkOgq bjogbGVmdDsgdmVydGljYWwtYWx jM166SNAdjIlkBlXnfTKrL3hmqj RXLC6fBfzodJQ+PHRkIHN0 uFldCZkjAESrqZ4vKCHoX6j7BeH eLyB0UZmqF3IitqK4GJBwnSCxFU ThgNYFdB1unmwzh9dqgxyj ByIhYUNeFSq1VKi5FTWcdHedLqW hNCL0LpX1XPL3zPDwoO0hgNtpej tzwY4sCnd+RklOOjwvdGQ+ NZQyVLX5hRdhEEniWVErtR8qULG rO7r3DyXiAmU3UJsaI1ZkduI8BC AuuUOkDONgzMTElW7txsku l2cbuldnGiIfVQNcJCs7ASt0JXG otBhrEiZhTTR5VsT8MOK1dFYurX 4zbFyqmydzbF3wQar+TVJO OjwvdGQ+BUTtQIR1zYzeZJqnCCH kpF3hBAVsG4k8WeLkZeU3FEgnJ3 YeuoE5HPPgoPFwMSBvfZST dS3oyfcvs1skuzoqFwRkDVKlDYz 5RTy4UFQdaYocRuHnNHM9EeV7KI S2zFXtoD1hmPmfounowC0o Oyc+YSO8GSR9YV88EC51X3FcJtr vdGFibGU+PHRhYmxlIHdpZHRoPS gbYYPxGrFycXiaWN4kVs0f ZGV (more content not included)... Normal [facility] ED Clinical Summaryon 2022 ED Clinical Summary [facility] ? [facility] [address] [id number] Clinical Summary PERSON INFORMATION Name: SHEYLA LEA Age: 17 Years Sex: FEMALE : 2005 MRN: Acct#: Visit Reason: Eye problem; UC - Eye Redness; LT EYE PROBLEM Arrival: 10/27/2022 17:44:34 Discharge: 10/27/2022 18:25:00 LOS: 000 00:41 Check In: 10/27/2022 17:44:34 Checkout: 10/27/2022 18:25:00 Address: [address] [place] [address] PCP: KEVIN STOKES PROVIDER INFORMATION Provider Role Assigned Unassigned [employer] PA 10/27/2022 17:45:56 Ellen Mac [employer] Nurse 10/27/2022 17:46:07 VITALS INFORMATION Vital Sign Triage Latest Temperature Tympanic Temperature Temporal Artery Pulse Rate O2 Sat 99 % 99 % Respiratory Rate Blood Pressure /72 mmHg /72 mmHg MEDICAL INFORMATION Medications Given: Allergy Information: No Known Medication Allergies PHYSICIAN DOCUMENTATION DISCHARGE INFORMATION: Discharge Disposition: Home Discharge Location: Home PATIENT EDUCATION INFORMATION Instructions: Corneal Abrasion Follow-Up: With: Address: When: KEVIN STOKES [address] [place], [place] [id number] Business (1) Within 3 to 5 days Comments: You have been diagnosed with left eye medial aspect corneal abrasion. This is a small scratch on your conjunctiva. Your eye was irrigated, examined under Barry lamp, inspected for foreign bodies. No foreign body was found today. Begin vigamox eyedrops as directed 3 times a day for 7 days, complete all. Do not rub eyes. Please follow up with your accounts receivable specialist or Dr. Mcclendon's office rafael, please call for an appointment today. Wash hands prior to putting in eyedrops. If any significant blurred vision, worse in anyway return for additional medical care. DIAGNOSIS: Injury of conjunctiva and corneal abrasion without foreign body, left eye, initial encounter Patient Understands: Yes - Patient/family/caregiver verbalizes understanding of instructions given Comment: Normal [facility] ED Patient Summaryon 023 ED Patient Summary [facility] ? Urgent Care [address] [place] [address] PATIENT DISCHARGE INSTRUCTIONS Patient Information Name: SHEYLA LEA Age: 17 Years Date of : 2005 Reason For Visit: Eye problem; UC - Eye Redness; LT EYE PROBLEM Arrival Time: 10/27/2022 17:44:34 Primary Care Physician: KEVIN STOKES Attending Physician: Power Ny Comment: Patient Education With: Address: When: KEVIN STOKES [address] [place] [address] [phone] Business (1) Within 3 to 5 days Comments: You have been diagnosed with left eye medial aspect corneal abrasion. This is a small scratch on your conjunctiva. Your eye was irrigated, examined under Barry lamp, inspected for foreign bodies. No foreign body was found today. Begin vigamox eyedrops as directed 3 times a day for 7 days, complete all. Do not rub eyes. Please follow up with your accounts receivable specialist or Dr. Mcclendon's office rafael, please call for an appointment today. Wash hands prior to putting in eyedrops. If any significant blurred vision, worse in anyway return for additional medical care. Corneal Abrasion A corneal abrasion is a scratch or injury to the clear covering over the front of the eye (cornea). Your cornea forms a clear dome that protects your eye and helps to focus your vision. Your cornea is made up of many layers, but the surface layer is one of the most sensitive tissues in your body. A corneal abrasion can be very painful. If a corneal abrasion is not treated, it can become infected and cause an ulcer. This can lead to scarring. A scarred cornea can affect your vision. Sometimes abrasions come back in the same area, even after the original injury has healed. What are the causes? This condition may be caused by: ? A director learning the eye. ? A gritty or irritating substance (foreign body) in the eye. ? Excessive eye rubbing. ? Very dry eyes. ? Certain eye infections. ? Contact lenses that fit poorly or are worn for a long period of time. You can also injure your cornea when putting contact lenses in your eye or taking them out. ? Eye surgery. ? Certain cornea problems may increase the chance of a corneal abrasion. Sometimes, the cause is not known. What are the signs or symptoms? Symptoms of this condition include: ? Eye pain. The pain may get worse when you open and close your eye or when you move your eye. ? A feeling of something stuck in your eye. ? Tearing, redness, and sensitivity to light. ? Having trouble keeping your eye open, or not being able to keep it open. ? Blurred vision. ? Headache. How is this diagnosed? You may work with a health care provider who specializes in diseases and conditions of the eye (aerodynamics teacher). This condition may be diagnosed based on your medical history, symptoms, and an eye exam. Before the eye exam, numbing drops may be put into your eye. You may also have dye put in your eye with a dropper or a small paper strip. The dye makes the abrasion easy to see when your aerodynamics teacher examines your eye with a light. Your aerodynamics teacher may look at your eye through an eye scope (slit lamp). How is this treated? Treatment may vary depending on the cause of your condition, and it may include: ? Washing out your eye. ? Removing any foreign bodies that are in your eye. ? Using antibiotic drops or ointment to treat or prevent an infection. ? Using a dilating drop to decrease inflammation and pain. ? Using steroid drops or ointment to treat redness, irritation, or inflammation. ? Applying a cold, wet cloth (cold compress) or ice pack to ease the pain. ? Taking pain medicine by mouth (orally). In some cases, an eye patch or bandage soft contact lens might also be used. An eye patch should not be used if the corneal abrasion was related to contact lens wear as it can increase the chance of infection in these eyes. Follow these instructions at home: Medicines ? Use eye drops or ointments as told by your health care provider. ? If you were prescribed antibiotic drops or ointment, use them as told by your health care provider. Do not stop using the antibiotic even if you start to feel better. ? Take seql-tum-wncnixx and prescription medicines only as told by your health care provider. ? Ask your health care provider if the medicine prescribed to you: ? Requires you to avoid driving or using heavy machinery. ? Can cause constipation. You may need to take these actions to prevent or treat constipation: ? Drink enough fluid to keep your urine pale yellow. ? Take aume-wcd-vvoeozo or prescription medicines. ? Eat foods that are high in fiber, such as beans, whole grains, and fresh fruits and vegetables. ? Limit foods that are high in fat and processed sugars, such as fried or sweet foods. Eye patch use ? If you have an eye patch, wear i (more content not included)... [facility] Urgent Care Note- Provideron 10-27-2022 Urgent Care Note- Provider Patient: SHEYLA LEA Age: 17 years Sex: FEMALE : 2005 Associated Diagnoses: Injury of conjunctiva and corneal abrasion without foreign body, left eye, initial encounter Author: Power Ny Basic Information Time seen: Date & time 10/27/2022 17:54:00. History source: Patient. Arrival mode: Walking. Additional information: Chief Complaint from Nursing Triage Note : Chief Complaint 10/27/2022 17:56 EDT Chief Complaint Around 1pm today started having left eye irritation and swelling. Swelling has gone down but is having burning and redness to left eye. Pt denies known scratch or foreign body. . Sheyla is a pleasant, 17 y/o patient who states suddenly around 1 PM while she was laying on the couch at her mom's house she had burning and irritation to the left eye medial aspect. She does not recall injury or foreign body. Patient states it hurts every time she blinks. She has had clear tearing. She does not wear contacts. She checked the inside her eye and has not noticed any sort of foreign body. Denies blurred vision, headache, purulence. No h/o corneal abrasion. Review of Systems Constitutional symptoms: No fever, no chills. Eye symptoms: Vision unchanged, pain, discharge, no diplopia, no blurred vision, no blindness. ENMT symptoms: No ear pain, Respiratory symptoms: No shortness of breath, no cough. Neurologic symptoms: No headache, no dizziness. Health Status Allergies: Allergic Reactions (Selected) No Known Medication Allergies. Medications: (Selected) Prescriptions Prescribed Vigamox 0.5% ophthalmic solution: 1 drop(s), OPTH, TID, for 7 day(s), 3 mL, 0 Refill(s) Documented Medications Documented Nexplanon 68 mg subcutaneous implant: 68 mg = 1 EA, SubQ. Past Medical/ Family/ Social History Medical history: No active or resolved past medical history items have been selected or recorded.. Surgical history: Myringotomy ([id number]). History of tonsillectomy ([id number]).. Family history: No family history items have been selected or recorded.. Social history: Social & Psychosocial Habits Alcohol 07/31/2022 Alcohol Use: Never Employment/School 01/19/2022 Status: Student Substance Abuse 07/31/2022 Substance use: Never Tobacco 10/27/2022 Smoking tobacco use: Never tobacco user Electronic Cigarette/Vaping 10/27/2022 Electronic Cigarette Use: Never . Problem list: No qualifying data available . Physical Examination Vital Signs Vital Signs 10/27/2022 17:56 EDT Temperature Oral 37 DegC Peripheral Pulse Rate 107 bpm HI Respiratory Rate 16 br/min Systolic Blood Pressure 110 mmHg Diastolic Blood Pressure 72 mmHg SpO2 99 % Oxygen Therapy Room air BP Method Manual . General: Alert, no acute distress, Not ill-appearing, Skin: Warm, dry, No rash on face or tip of nose. Head: Normocephalic, atraumatic. Neck: Supple, trachea midline. Eye: Pupils are equal, round and reactive to light, extraocular movements are intact, Method of inspection: Viewed with fluorescein, eyelid eversion done, Tetracaine applied, Eyelids: Left, upper and lower, erythema, clear watery drainage, mild, clear tearing, pain with blinking is present. Prefers to keep eye shut, Eyelids everted and there is no visible foreign bodies, no hordeolum. Gentle pressure over bilateral globes does not cause pain or pressure. , no chalazion, no ectropion, no entropion, not edematous, not with foreign body present, Conjunctiva: Left, with conjunctivitis, erythematous, not with subconjunctival hemorrhage, Cornea: Litmus staining with Wood's Lamp Inspection of eye is abnormal. Medial aspect 2 small corneal abrasions overlying conjunctiva, not cloudy, Red reflex: Present. Ears, nose, mouth and throat: Tympanic membrane: no erythema, no dullness, Sinus: no tenderness, Nose: no congestion, Mouth: Normal, Mucous membranes moist, well-hydrated., Mucous membranes moist, well-hydrated., Throat: Gag reflex present, no erythema, not with exudate, no swelling, no uvula shift. Cardiovascular: Regular rate and rhythm, No murmur. Respiratory: Lungs are clear to auscultation, respirations are non-labored, breath sounds are equal, No wheezing, rales, rhonchi, no retractions, nonlabored. Gastrointestinal: Soft, Nontender. Neurological: Alert and oriented to person, place, time, and situation, No focal neurological deficit observed, CN II-XII intact, normal speech observed. Lymphatics: Exam: not anterior cervical, not posterior cervical, not swollen. Psychiatric: Cooperative, appropriate mood & affect. Medical Decision Making 18:16: Tetracaine 2 gtts.. pain resolved. No FB Rationale: Patient presents with sudden onset of burning, clear tearing, pain with blinking. On Barry lamp exam using fluorescein patient is found to have 2 small corneal abrasions left eye and medial aspect overlying the conjunctiva. She was started on Vigamox. Symptoms improved significantly when she given 2 (more content not included)... Normal [facility] Urgent Care [facility] 023 Urgent Care Record [facility] ? Urgent Care [address] [place], [place] [id number] PATIENT DISCHARGE INSTRUCTIONS Patient Information Name: SHEYLA LEA Age: 17 Years Date of : 2005 Reason For Visit: Eye problem; UC - Eye Redness; LT EYE PROBLEM Arrival Time: 10/27/2022 17:44:34 Primary Care Physician: KEVIN STOKES Attending Physician: Power Ny Comment: Visit Diagnosis: Diagnoses This Visit Eye problem ([id number]) Injury of conjunctiva and corneal abrasion without foreign body, left eye, initial encounter (S05.02XA) UC - Eye Redness ([id number]) If you received any narcotics, sedation, or any other medication that causes drowsiness for the next 24 hours, unless otherwise directed: ? Do not drive a car. ? Do not operate machinery such as power tools, lawn mowers, drills, sewing machines, or stoves ? Avoid alcoholic beverages and drugs for allergies, nerves, or sleep ? Do not make important personal or business decisions or sign any legal documents With: Address: When: KEVIN STOKES [address] [place] [address] Business (1) Within 3 to 5 days Comments: You have been diagnosed with left eye medial aspect corneal abrasion. This is a small scratch on your conjunctiva. Your eye was irrigated, examined under Barry lamp, inspected for foreign bodies. No foreign body was found today. Begin vigamox eyedrops as directed 3 times a day for 7 days, complete all. Do not rub eyes. Please follow up with your accounts receivable specialist or Dr. Mcclendon's office rafael, please call for an appointment today. Wash hands prior to putting in eyedrops. If any significant blurred vision, worse in anyway return for additional medical care. Medication Information: The exam and treatment you received today in the [facility] were for an urgent problem and are not intended as complete care. It is important for you to follow up with a doctor, nurse practitioner, or physician?s anesthesia assistant for ongoing care. If your symptoms become worse or you do not improve as expected and you are unable to reach your usual health care provider, you should return to the Emergency Department, we are available 24 hours a day. For those patients who have received Radiology results, the interpretation of your X-ray as given to you by our Urgent Care physician is only a preliminary report. The Radiologist will review your films and if there is a change in the diagnosis you will be notified by phone. Please make sure you have provided a working phone number so we can reach you if necessary. In the event that you had a lab culture while you were a patient in the Urgent Care, you will be notified by phone if there is a need to change your antibiotic. Please make sure you have provided a working phone number so we can reach you if necessary. [facility] has provided you with a complete list of medications post discharge. Please inform your impregnator carbon products/provider of your visit and for further instruction on these medications. Any specific questions regarding your chronic medications and dosages should be discussed with your primary care physician(s) and/or pharmacist. New Medications [id number], [address], [place] [id number], [phone] moxifloxacin ophthalmic (Vigamox 0.5% ophthalmic solution) 1 Drops Ophthalmic 3 times a day for 7 Days. Refills: 0. Additional medications on your home medication list not specifically addressed. Please contact the ordering physician if you have questions about these medications. etonogestrel (Nexplanon 68 mg subcutaneous implant) 1 Each Subcutaneous. Visit Information Allergies: Substance Reaction Symptoms Type Comments No Known Medication Allergies Drug Vital Signs: Vitals and Measurements this Visit (last charted value for your 10/27/2022 visit) Vital Signs This Visit Temperature Oral: 37 DegC Peripheral Pulse Rate: 107 bpm Respiratory Rate: 16 br/min Systolic Blood Pressure: 110 mmHg Diastolic Blood Pressure: 72 mmHg SpO2: 99 % Oxygen Therapy: Room air Blood Pressure Method: Manual Measurements This Visit Height/Length Measured: 160.02 cm Weight Measured: 81.65 kg Body Mass Index: 31.89 kg/m2 BSA Measured: 1.91 m2 Body Mass Index Percentile: 96.12 Height/Length Percentile: 31.28 Weight Percentile: 95.19 Problems List: Problem Onset Comments No Problems found Patient Education Corneal Abrasion A corneal abrasion is a scratch or injury to the clear covering over the front of the eye (cornea). Your cornea forms a clear dome that protects your eye and helps to focus your vision. Your cornea is made up of many layers, but the surface layer is one of the most sensitive tissues in your body. A corneal abrasion can be very painful. If a c (more content not included)... Normal [facility] Coding Summaryon 08-06-2022 Coding Summary HTMLBase 64 AlrexvxbISp7vDz+PGhlYWQ+PE1 WCBAcU56jbOVygI9CN3cJSF8PJL NQFTTDFF9UYL8vyKY1MPtuW6Fsd iAv BjvyvWXoHV99CPm5AFR1cLflOYf maB3gzFAcC5c5FkWcCD53hK74KU xiQAZxXoH3YlSbcuzpoUJq X6duVnCpfSUwXxg+PHRhYmxlIHd lVAHeIWumFZKxNkOscQfaBN2vNc 9yZGVyLWNvbGxhcHNlOiBj k6irGFIfJSsfFR5twTwpH0YqbRM 3LARng7t9Xr21vRS+FVAkEQT8hW kwKCigp838OyXnx2wxILG1 nIJiCGpeOEC6W22yn8B7WYHbKTE nNYM5uNA3zU0jxVqqlhhcH9ShkR AjHaZ1TFJ1dAJplM0miChv rhanyN4wCdq+S38UVT4FWEQJPI1 OKal7P8SuVjhaaGN+BQ24TUBjGA 45hOJsmUVwp1gtgNo4XpPc GIQwMFX2fXmzQEobs0BoSHRaE02 tjQCjk3B1FTRajBccxWSpDtAfqL A5uY3sEIyrdzhpr2ikxmst Qpcej6mpfb27yE64K16xFXsvZKV pEQK8MCLcUVYwcIqhby2mzT9kBr 8+ISlqr6ovq9rgfZl0RiUa JVFbctMqtMzjNCJ3m8RaVn94K0K jnXvxc9QoAqa9vi65jWAdw2C1uO P4IWdhLQEelE7oFKctDxH9 DHTeGjTdsU25lTGaYTyzUb1ruFp lxFteNT7fYKUwnnmxQRYppP2lDE NhxUBdoLsdRN5aPARkdlky s650IkQaOTN9OGUheZTlS0GxnM5 pIfDjJTVzUIXtK4NhvHXjACgbW0 01JPtjTbJ4JEPkgvDtZ8Tw DOOwaMisKbM9o0F7Kp0Jf9Jjfxf hDKB3GMiqEKRdTeJzNtJqCvI0L1 WjAix8CFJhdWwfAP1sC9Uw PWTaigqsfmatpSG9AWYhHIYgbQ1 1ySVzSIycHa3vs2A5w823CTKaJF JolH24Bu3orPmrRAXxbJYD jF8wvlcfq0ijmagiBwHmBHFeTJf 0DBw7ETKenKinBsJgZNG3FoU0IH X3fDIlkN4ueJsugoxmtD2l Oyc+M80auZ3rGYS0GYE8jhgzWEF rpcOkAI35TJ35E4LdGeubmSGcxJ U+ATGwwtQunYfdJQ5nIwEu q0qot9PcXVzxC6YoDFWuHByaWao 0NSPdAZR7wVU6xE6nAPItUZowe1 D9uLD5E4VtgrKuxg1jb0ij KQHmHZndS72guMHgn0J9ZVOdySJ 1HXRhwIpvRnTdsK54Tet+PGNvbG obk9AjDflnd5dgo5woaUw8 DhQdWKXvpeHvwKsiONS1b8SdXl6 9H51iZZtbBPLrFXEeWXAeMGLknR rvpk2luE2bGx0+PGNvbCB3 pTG2bP4zFRVnHuU6IJvgQ514JaB dhXDdWhycx2hsp3crcDt0OtLsTN WjdpGhwIwmSMW6m2JcUp81 H43cPXbuWEPnIJVhCJDxXNEyeQl jwi2fqI8zZp7+AP5ot6hjmk10fB 48dHI+XQWfBRZ4vQwxJPef ANIruT5cSCrgGiA2YGKfLxIjbK2 8oBYiLMquIh9htGjszLyxTD1hNJ Kedrcpl516EqWzz9ceYGYx zZKwDWvjUFG1M00wu1N2NYYdMBD hMFK5uBE5nT5vjWoqptlyzMZmaH vroaKzfJyfJXmwKNfrC750 IHRvcDsnPlBhdGllbnQgTmFtZTo 5R0GiGtl7AFItuDzcII6yyYHxUA vhFz1gqBjbqYiiXM2jPDEi abnxm040LtGim9lsQINzyMSfXMh sTOI8S36ll0C9ASJzZXHhWXF8bJ R3bC6zjDmkfxkxkEVriMsi rkUzwLqkJWzaCVenF285SXKsvZx kXyLwfkLhFKFfcAR8DY82XX07gS Ncb0A7fYN6C7ArPJMcietk tnkgbSL9LARrXTPxvA46Ej1laJv qOa9lLFYjDGA2AQQhdTJeO1AgjK 0tAcHsLLFyEOFrM6LybVRj LRucT279FLthIxK0KOEnbzOuN9Q uSCBycCuhUyT4n3U1Yb4QD2H0UR 53ZW94jTAyl9Y8iJA6E5Qa BEFylcabjdokhMU4FTZdSUDxkC3 0Rc3ukGxwOj9gOFYtTEX1MQWvhO OqE2BhnO2zIvVwHUTwSFBg T0QtsLBfBZmdE661MVgzZqU5UGX jewLrO6KoNEYuzOqjEiN9x7B0Ks 4RYId1IW03TU05yFUjj7T5 mTG1E2AvERLreldklqusgVV6XOF lSEVarK36Xy8vbQafMp8bZUXdXZ S3KYKssGHtB5WnuZ0lAtRn OEOmKWXwH0MhwRAgMUzyL082EBf bOpV9ZVKtnpCrH2HiKFXjiSnwFp Q0u5X5Dj9ZRCLmED70CAE2 sPN1YI76DX37L6SkDkfkdDLzdDE +PHRhYmxlIHdpZHRoPScxMDAlJy RxeXvyTV7qUj9xTHFdKFIe gIrkgRAiPsUpw1qgXJMjQJbwRI0 utOrnM7CiuUF1ZWXvr1g8Jm34G0 9gU4PjtMN+CVUujNM6wTA0 pU5tPzPnQrD9OTpkL060GaPfrET sUidyq9sjv4thdVw3WgA6ADWeck VlwCmiMZI8r9EtXv31S45g IHdpZHRoPSIxNSUiIHZhbGlnbj0 rtY4zHl5+JADpdOV3xKL1dH5lIw QgVuM5KTweS352FsZxlBLk Hyuex3jiw1aylGn0PoHrXJGtsaS adXhfIEK3z6HbOj09D6ZnyTdae2 SnZvv9gk32vOSks1A8rSC4 A8ReMVCpfvolqHQicSxuTQ2aNFK ylrtnHCBpuC3lKLNbM4u7VbCwEz H6EAinL9DpxhA3GQFfjWJy KVbzABY0H61wv9J4OMYaQODiTYH 7iHW4cA4xcEqxtkyxbMMohVwelt SfwWkmKXovMVppI889QHNh uKltDJZjsE8pMLYhrAFaqVawYB4 wACWwrzbrFpaMApSNM1GHHBJYLW 4WQGTTI7ETAZbFMWCQTGOL RTwvdGQ+TLQmFCU1eRlcKUhiFSK bhW3jXONkR7i3YhNvAwL6XVgoB3 BjHBGlfxytYi64kT6lSgKx YiV6LTutN3QsxwO9ZBArzFZkWKm wKSZ6O39qk9E9TPAwAQSjAYR4jS Q9jQ3llRlkbdfxbPPblBdv alUjqKxaQMddZGveB446VREjoJi sUdVoBaM1DaZuMQV2V4CvTes0VY ZavBvrYL6arKKpKZejVp7z aEpriWsuQB8mTUVquvehXFFqqW2 sMWWltUDtlBjtGV4tWYMpljtba7 40QbOtOOX2PQWlhHStM7Dn mF7aVxXuXRSuOWGpF8UfjJGkZBl wY347XWhdBlM1MHZwkbHoG0GfHI ZecWrgUjS6v0O2Yb5bYXFR ZWFyczwvdGQ+DZJpRVR2rCxlYDb aRWYndM9fSOFuL4s3CeNoOqH7XQ rhC5EgYJKdnqutJu79bF9w ZlNnJsO9ZMjvB2IpsqM8DVPxlWV rMJpaTAW4R36zd6C5WOGnGWBcYN T0hEH7eN8ysKojkrohdWTa yDlmczUxkXjvMUsjCZeqJ320YXP vcDsnPkZFTUFMRTwvdGQ+PHRkIH U6iSkiAZmlRIYnmT9cMSZc B9n8RsExUrO0BHtlG2JuWDCcoma rWq22lI8tJsPfQnD9TWwwU7Xgvj Q4TEWhrXPmUAkhVBM3G57i d4P1ZPXpRFHsSKW1vSV2uU9vvBe nbjogbGVmdDsgdmVydGljYWwtYW blA804CVSgsCyrCn0SRL50 AH18E8CwFzkvhZDjaFT+PHRhYmx lIHdpZHRoPScxMDAlJyBzdHlsZT 1tAi9qEXEsVGRhqSwnrSZk OlBal7ihPRUuVEeeFK8mlCvzD7N pqIK7BUMfl8v8Rw36W94wY4NdeJ A+UYCzvXF4qWL8mM9rCcAn JxC7OTiwU451QjFkjKDnXcaxb1w oh1otfOb9PuTnWMZgtyPgrUubJB L0y1RvWe88F31uYUihYJBs QZAnCUCwPDXmuYrrho2niZ3vFg8 +BTHfvPT3nBD1mI8yZnIrItZ9KP qhW518TmTimPWzOmvlM78e O3FrdMZ+MVItQkx9NCLkvQoqYZ8 mrVDiEGdiGh5bMYI2OiBdBfMsGL llX3JoESBvqvlncsubkWO0 MJMyGECfcV79Pd9utNooHy0hPPG aHGU2BSKefMNvG3MckM2aBkFeXR PwMGHnQ2JctRRrVGojX958 LQjkOuT0EITftmNgW4FpUYGubOg eXsV6x7U8Gi2CzVdziNFxKE0nVl XwVLc0K7CrGes4VEBhzMlr IH0pyAIoEKhjXj6gqNkatYawFI3 cRKHearioc435KuUbx8cbBSFbuN LsNFzwYQR5U59yz6I8WQJk KXKgULQ0pGE7cA6fdGsgpvpaaJO esBrwoyUwtCcfQBveZMowT646RP GchVrgNqJKGpu8B9XdOim8 FHWjmMjtDO4zmBTxFOwjSp9fsEh lnCnfUX7dCETpenybs870HjCga7 wqQJFdrBMmLQjeCEF7Q34p v5B6WORdTYJpZZP3zCA8vF7auVq nbjogbGVmdDsgdmVydGljYWwtYW xjB745MQOgmVkhBd3ITtj0 U1SzNgn5ABBhfZrdVP3qsVSqDNu oSb9osDjtlFedEE6jFAEbdwfbb5 22GfYka8jqAVZylFWdLDwx FOH4G90fv0M0OETpGBFgEWV9xIJ 2mI7ixYilixnkcOPfkDnnlpCcaZ luEXbqBCiaF782HBZtuHyv PlBheWVyOjwvdGQ+UY79ik52X2Y bShsjRzx5FNNjATK3eUI1bD8iEL LvEOwif2V0uYZ9S6QakgDl ci1 (more content not included)... [facility] Coding Summary HTMLBase 64 HibulqojTSk6sBb+PGhlYWQ+PE1 COVWbM11ouBDyzI7MF7mAAH7YNY LUYFPBTD4DZO8qgDB2VOfbL4Mrj iAv TqysnOMvGF13QJi7ANL9bPchUTn thZ3hwWNrA8e2DeYsBI53wT50EM fsOFZiBxH4ZeJshzgiuDAd O9mpFyGflQXuLqf+PHRhYmxlIHd kDJDtMXztRCWtIdWtaFukUJ7jGi 9yZGVyLWNvbGxhcHNlOiBj j2jrTCKsWRphHX3cjWecK1SqyEJ 5DQQdc2e1Ns83mVY+PANlIZZ8iK esYNrut006CkHne8bkNTK0 aDOrCJdoIOB3X52di4M5FRUsZVN aKZI3gYW9lS2vsMinkrceS0JkoY XoQeE9WIA7rCZyaR7omCdo csrvsV3eRsb+C14ENR1LJKFQMV9 FSwh0J5PhGnjufXQ+OH97PZRmLA 68eBBebVVag9wyeFr0PcQp ISHrTNU9zMjeYPvij9CsSONxA03 rjODbx1S7TOHeeDhppOKxTrLurS H5tS7rAHgrhylpj6tlchqv Vszww1puem07nZ33C01uSQtrYHB rQHE7PUKyGLSafWefsy4qmD8gBp 8+AOaeg6lkd2nalTr1AeVz MJWpahQqhKmeRPB5x3QbTr16J2S smJwca8XpGrl2tl42pVSrl7O9sV R7GYubHXRsrI8iHDlpHlO7 KOCgZxSrjU84qXKxRUwaUg7kxQt omNlbVB0gXMAcbzoqEMQpeF3hLN CgaSOyoUeoNC7nQNTupcmy q087RcBcJWA0ZVSdoUZfR9WubF9 hEbDsNHWeDINiJ6YlpWJxEOutN3 61HQocInP4TFTtkrVkM1Is PVDfcRnkWbM4n8S6De6Rl2Enerl dRXH1XHbpOWEuJtCaZyHmWmW5Z3 IcKrl5FUMynLhhKV4jA2Rg UBRdhuxamawnmOD0ZAGgSTOyjM5 5sPVsCDlqMs7uz4T6l367BHGwDI KhpX64Qw9hwAxsQNDmlPIM bP9ytpopl0frvfvqFmQgOXXnUSp 9VCq6ZRZhwSqoJfLzUMW8SfP9AB U2vOArsW1fxQjiajatdO1s Oyc+W49xsA0gAHG5DXX6xepeUAU curQuVC82ON77O0XaVsxhsMJgnV U+MXJjvkLxcVxgJD0lFgKf u5eaz2RjRNooK5PfQADjOVsnGdl 9SDEsNGL0wSP3jH4vMEKvQVjvq1 I3vPI4F5GqvoDake3vg4lz LOTiWHnvV61jtZNma7P3EWHvgBE 4GURccBviOvFdaK23Rso+PGNvbG qrm7ThFvgou0kkn7gxdDd0 GvUeNDYsgoNplTlaKGS7k4SqMf4 8T92xFDzaSPMqIGUhCSPbOMIbqT matd2qzW0dYr0+PGNvbCB3 vVQ5zF9bRVNjFsM8XSwdG394QuL bkEAvVcedm9sbf5otgQy9YoYtTX QfpgGlbRseHAT1j8SqEa21 N99nQGnkPLXfDGGuKYImSFRtqOo faf6xqC4bXz7+GY4tj5wwum71bQ 48dHI+YZVtYBS3fHuvCYqp LWPbsG3ePBnoMbR3DKQaDhAjqN3 3fPFvUIvmWp0twEgiqDlnCR4bMB Pxutxzj895EqKmm1ioJWKj uFOnQCwbBUR3W79ly0Q7TLTxJUO bHYS7iSR4oA7keZkvhqnloTQhqH axqrJodWcpLMchPSflK454 IHRvcDsnPlBhdGllbnQgTmFtZTo 0O9KcSxt8CIBmmGdgIS3hoNTbAH yfOx4doEscuAglJU7oBNZw kvpir271AqIqd9jbOZRzrHAqCFs cKDR0E10ni8A1ANIlUFPiCRU3bC N0eA3qaMjuehwkvADhqSpe qgWbqHwvVKbxFMtpJ439AZIzzKw hSaQkfzBqNUUtvFY2YI46NU70iK Pfi1L8tRK3G0QrCHJujucz nqdlxHO8NNWqXMCtdC02Fk1gcEb dSd7aFKAgZKJ0GDXodFXoG9RjaU 3tQtHuSCFpKLPmU1PvpGXp TCogM849ACxuUcJ4MYUkwjSiN9S oAJMhsAwkAcX7i1P0Gr2VL0G4CQ 52GA68bXQiv8H3sBI2E2Ym COJlinjbizucyXI3CCLzZFAzgY2 3Qd8itLjnVq7tOSXsVHW2RBGheE YqT5WnbX7jRyVcRPUkRCJr M5ToxIJtCVdgY307TRbzSwV2NTV xvrIvP4CeTGZnqKghXhE4d5W4Ev 4CTKq4HU48PB95cRLzf1Z2 cIZ5G4LdCBLjonzncwmkiHU7JIH iPMAptO70Po0hbJtwRm6kKXBiBK C6MYTqlSBkR8XihD9jLuKc JFUqMEZdD7FaqCSwLVunK224IKl pPeZ7RZZpfxIsC0ZhWVFyuLjwOw I9m3U3Lh2KCQLtBQ90QTT8 nHQ9SO32LH41E4OaCxfoyRGwwMF +PHRhYmxlIHdpZHRoPScxMDAlJy KdbOflJY3uTj2mZZLyJTJt eWwdcGQtIzUiw0wmSUDyOEfmAA0 ciNwyO3WtgLQ2JZGco1f1Ul65Q8 2zS8KhcWN+YUHavOP2xSN5 bX9lFhNgYoN6ADmbP400QrYukHX hAtmrw8ohw8tyaKp3TeS5QYRxdm NidMuaQLK4f4WcFm72H25i IHdpZHRoPSIxNSUiIHZhbGlnbj0 ttW1rUu5+AFNdpQF5zPF5tU8fBo QsNuC9WSwvL039WaEbaDKn Ddmvx4nji6kjvGf5MyFjXQTnwzM yhKroSHE5z9QvCg47G3WkyMztv0 GoPmk0hi96fFFot6Y9vNX9 E9EeORUgsizoeNRtcPioEL4fIMI jpdgnUOZftV8fOIWmK1g0NxQsNf C8MGbxH4YzdsB0GKTdbULd YBxxCGD5L27gi0K1DYBcCQQxAYG 2sDM6aM6beOpdvwthzGBpzYqbuo EimVnzPUdgEStqA217USGo iCwgTIDmkE8mMXXpdOZjeVutMB6 vFIZzekhkPiyJVkUYH2AYCODXQW 8PUZZLU8RVVXqWPANRGMGX RTwvdGQ+FYQyWTO4qOjpYGvkNRI goD3bVZUsA4o1WxWbFtZ2KBlrD9 PyGMCizsccEb93tY5jXnNv KkW9ZUhtB1AclmL5YHNwaOXnDWm dPHA7J16gq8C4UAAjGJNfGOA6lO Y9rL9maGlovstuaUHmhJev bjKinCbwKMczWQweN916PKZquMq wPiFuGtG3EaThNCR3M4ZxCmh2SR KkxQuiUP3guMBpQNscVx9g oZpvhIwhEZ7yPZVdrohaFWNwlV7 sJXDieZBhwBorRO2fNMPpdrvnf1 48EvWyUBC5NTRykJLlK3Wn xQ9hVtKfPKDyTQDbE8LjxIUxYVr bK129RGkoNfC8DPRdvbUnH9VyRJ HajOboTdQ3r3P7Oe0sBTEX ZWFyczwvdGQ+STJnLVZ4lMcaJZd uQAMkmY4sNQHdA3d7YdXqWkZ0KE emT0LzJLPvwabuJd30qJ8f ImVoZjF5BPulK2SlvpU9ALLosGM pBAxjWJP0P49ek8M3LTVeHNHfKY A0kIE0zE6yvOodjvfyhWWv yLmvbgMoiPhcAQfqCOdzW353VON vcDsnPkZFTUFMRTwvdGQ+PHRkIH F9oUbpIQngRKJorR1zZZSp X5y2GyOtDhF8VJwfY4JoGMBimjo kXw32tE3dNuHyAmW6ZPnpD4Bdtc O8TUExoFZeBPkiXFY3X44r p3J2NSIxTWTgGFA4wDA3wR9atPv nbjogbGVmdDsgdmVydGljYWwtYW xtF321ALTufStmReKlXVWd ZK1uxWbhjIJ+ZD45el49I7GlSvs sNsp4GGWvZQB9iYU1dS7aBNGaVV syv6Z6vVR4Y4GxexStjh9s i3crCXKuBAjqN12imVXyb9M4MRQ inUS9NZRqgLtqDpRcoS28Ksm+PG VbhRvzr1ZqWknlf1csi2gq mTi0CaCiAQBflsXjkYouNPW5q7N xFu26E01jGMshQKOjBZHhTSLqUX QfiDcwlo9cyV1uCl4+PGNv uLM3qDT2gE5oVtBaEtW3YEybS70 9EdSupSYeKqhue2dkw0ageNq9Am YrSVHsgtXpbBswKWD7r1Os Pq60O4HivEeyu2VvWtm4rr37dMF jm4Z0qEX3O0EnQUTaeqhyvNDraQ vzWC7tHOWfnkecFHFflY9n QPOyF8a3AcBtPiH5JCgaW2JguwF 4TZVizXLcZERqkMLFzS3swyqeb5 kdvkjuPaLyTNWyZHw3OOf4 BRBuvHnoZfIjMTE5AyS2AHJ6rPO koQ3vfNztykpndM1vKbj+UGh5c2 uqfIOlRC4ajXQ4MO21QY56 qRXsh6S6aYN6R8SuFVEacaipfvi llCV3IAUrVTKkkK83Rr5meGwtKw 0qLKNsPGA4JQDgpXReK8Fy mZ4qGaBuRUYxXJLqK2YarLWhAOz vS195XCdnOkZ7XIGdvxKlB8JxSG QwcIqsAyV1o0U2Tj6SAR39 XK29OY45aSDsl3U4rYP5C7PxFNG rjlhwswqepHD1MHNnRHZqmV28Wt 3arXoaRq6mBSBpSMT9DSAj oVDxU8HnnH2iWvPdNAXdBTLrZ2Z srOIxDVysY312NFgjQeE5IURhxb ZcU8MfXXHfcLexQlS8d6U2 Ij8VPk91LS97BT09rHZnl6U5nFD 2C4XdZDZwotkqxxzbqKL6GJQlPO AfeG73Iz7lvTtnPc6rCPZx VWJ7IRWxnKBoZ7PakP3gDzKgBCQ vUXZkZ5HbtPGtJTahZ535INcaRq R1RZIgjvTtJ1GnPXNiqWvp HyT2a3S8Tf4KNUdyvwx5D4ArIln vdHI+XL72BIYaHA93oZXleNHag6 icnOa4XiNmXHIwDRF6kOux PSd (more content not included)... [facility] Coding Summary HTMLBase 64 VnzeehugDMw0hQb+PGhlYWQ+PE1 QTHKlC04imLEanS6QX6mUZE5UJY PUNFLZZG7YAG3qlDC1GVkmL5Cxy iAv GicziIAcVU18SYx1DTP0kGhfVAb zzL1aeKIbQ6k0ErOhIE91wR91FK ojBYMxIkS7BwIslrnreQAn G2riOkKlgZReLtz+PHRhYmxlIHd jBLOcWNhwVZWjStNfnXgyBU9wZb 9yZGVyLWNvbGxhcHNlOiBj o9ujDGZoDSlzTP8rkRieA6InlSV 4TMSjz8i3Fu08mQU+ILFbRJX9cI llKZsqn839QsXuz9xgBLW4 iRJmAWozHJK6Q78yv4W3YGFlAYU tIJH4rAI1sX2sqYqlzwxvD5FtvS RaByJ8IVD9lRAfhD9ltZtq dyoqfH6pFjo+O46CWX4XBPQQQT9 ARmd0Y5LuDeqzgTT+MC97OBDwAJ 44tMOjfOGlc8tofGw1HtYi VJUvYDM8jWmyUXadp9WjGQGhB81 axWRfg9A9YNLrcGymrZAuMsZzhR A5xS6eBWausbeuc6elrydr Ysnfy5khuv82uF77L74ePUpsZGR sZZS9UYAzUZPihXrqiv3yfP9tJv 8+AHfce3pjd7npuDb3CkAf MCZkgfOxnKlrTJY6o3ZaMi10X7D pgJwzp9WgTxg0xt80tCQss1S1wT U5IBjkVDUhmR7lRGbdGdG8 QWShDeTelE33kFMcLJwmRk1miYb ewOsgLG1wHFEdhdldLRAfbH6lPF MvtNQseGdtRD2nWSVkfkio i253JeAoAED4IKNpsQGpK2DteZ9 yNuJlMQYfCAFmU2AfeKXoNTawM4 82ORmjSaA6ZLFooqGsU0Bh JBQonEpiZcM4c5K3Op0Jl7Wdevb kWTV4JOvgOSOvJuBqJaCoCgI3B5 AnXcc9UYHfbTtlSU4dM8Qx YHOfvrxjawhwnAC1SNZkYFIkwQ3 3zQYuJAdgRl9ab5E6i416GJFjHH EejS10Ac5skLnxCADzqXZK nB4aidhhs1ehavstTsUkZBPsGZn 7CRm3OAAveAitBrJlEJU2QtY3TU B3zORaoS8yyGskahncpB2j Oyc+G63lxZ0dFLH5WMG1xsvtSHF glhQgVH81KJ81C7AlXyalsECuhK U+QKYqwsOmbTomIJ6pLvQd r0arh4KbKSswR9KvHLMnMKbmEbe 0SBIcHTU9dBP3pT1pLCUtYPukh4 M1oYF1I5QjqvMnby1nc5bi EFIxSGzlW69sxLXxw8Q9RDTpwMZ 3JXLpmMtxEsDxsR91Vhv+PGNvbG vei5SqPqfkb3orx4jbwRs9 YhTuMBZsnqLnxYmxMGA5q5VyPh9 5Y54oBRzmUVIqYXSmYFMqCFGolM vwpt4okZ3pFl3+PGNvbCB3 oSJ6mS4lGSHoEvA3TWigW068DoT biHOpXltiw6pby0ulqXl6XlDbXU DgztUvkEntOIK6h8ZzZf40 W80jSJlfAOFzMFFpFZUxYFTqjFv rwu2esO2pTt4+NC5fy5zrsf31zC 48dHI+EPUdAQF9uZakVMhv QOXcyD5bMPahWxV1WYLxBgUkqL1 3iWZkOTpuHp7mtFygwPrmHU8vKH Rrwzimh738WiMrz2ebXMGc fJQlJRdzLDQ5R06rp9N0DOVzPVF sBDA0gQE1bC9wpAygynxotMZtiL bbsoHqzGxeQOwoRWmsJ080 IHRvcDsnPlBhdGllbnQgTmFtZTo 4H4PzQkp0DZXngGspHJ4grDCqPN sbEn7quXlniYbsBK1zDGYi guxio470RnXjr4teCRZtdTYbCUa qTBA7L10at7A0WEMpSIXeJYX1cS W1xY2rwOeuvlpxeZWcbRst saVieWyaDTjrENexW803CVFodMz oSkLkbiEzSKEfqDN9BA18BD66oG Duj1M2nAN2L8GiHOPmztjg awwliJL7TVCkXTAkjT44Zb8lmKr rTu4vZOJjTUO5RWPltMCoX4EfoH 8oFjXoTVQcIIWlH5YviCUo OCtdF695PVrjYeB3KCQnjmQiT5R aQMAsfJomOiO1x3U4Ib9HL2J7DS 31CT53iBHwf1H4lPW4C7Be ZQOxbjbvlmnduAX4NFPcAXBqdE5 6Mf7mjLuqLj9xNSUzDBF4LZVtnP ZdE1PohQ2jZvSrFPRpZBZb J9FdwRYiYAspI445WYikBzY8FYT ffrGjW1AxOGFctGkmTbA4t8C7Ek 2EFBe6DJ72AX49gLQae5K2 dZO2L4JtPTUsqcqkrtusjFC0AEF yCHOpjA25Tx4cwZpoIw0rHQZeYU R5FJZktSUgL9QxeO0oAhWu LQCjMIEaE9WcfZVpTAuzK634DKa cBeV7FGUuvnWaL2ZpNGHghDvhLl G3f8H6Py7FYNNmET09EQZ8 uSX4RT65ZN23O9YuJdtmfTNwtAB +PHRhYmxlIHdpZHRoPScxMDAlJy AjvVjbDF2iPh3iMMWfNLTn fObxzEMvZbXet5vjQVTpVWpgOW6 qoGhyQ9GxoWB6LTUoi1i1Av85Z4 0gK2NwyCH+FBQleYZ9cME0 zS4uLxSaNnE1JQmlA633BwHjiRH mHzifo7dau9nwgEu5YmF2BHBvmi XliSisXRS7p5EdZe20U37k IHdpZHRoPSIxNSUiIHZhbGlnbj0 ppY4yZk7+TFIgzKE9iMF3hN2xVz KyAjT1BTgiC103PiGhwPRi Ctygx8sih1bkzOx9YiTwFMUsslQ mvRsaSSS6g8CzUk64U7EriTcmz8 MjDde7kp16xXPwd2X3sLP6 M2PhQONbgobugELmkUvtCR9qIHL zfizlBNLngQ6yQMBwO9y7MlGjHv Y9VVnlP7JkvrG6YNBapAEn MIwtRVB5Z97xp6P5UZAfPVGcZKA 7rVE1iK3dpUhcostyoCIicBhfvz KzjTdeTVswJPqhT142QUKo rZkhZUTorP0gEUEufKNugOvqGZ8 mWELinlmoUwzWGhWNK2CPEKMBCQ 2OYXIGW2CQEWwUDUYQSJMF RTwvdGQ+LGCsPUV8mQsmSZniIUO aqD7iTPXpY1h2TqTnUuM6GZhxC3 KjAJJsycxaDd76jO0iCjYe LdB3EVajV8BotqO8ADWzyLKjCVa tDFR7P47mk1T7JHInWKOxATH5nT E9jF1kjDupoeagaXAezPcn ulMzjRhvRTopMFzgJ528ERDobHl dFpMdXlB8WgKwZRA7W1FfAmq6HM TpcLwxBG9dkFWoWXpmLn0g iHeivNmpSL5gDGBmmoxdJIQemE2 lPQDhmBHgnGovFA2mBPCfgvgge0 83OyXqERG6EJJgiRMbJ1Qt qN6uCcNeLXDyVIVjQ2MprZKhMHp pO094QJwxXhC6QQZiazXkC8LdCI GrhCdnRlE8i8K0Nx2eBVVW ZWFyczwvdGQ+HFGkGAY5nPgzCPi gWZWdgR4nBAUsV5k9WhVoHaG6JT yoH4MfIMKupznvDt52lJ0z XaUdWoI7FNzrR0VtbqA5AEOdrJN bGXioJKJ6T07xk0V8SBIdPFOmZH N6dCJ9nD8wxQrgnvnbvXOr lIydeqBluFkmPObkYRlhQ800XFP vcDsnPkZFTUFMRTwvdGQ+PHRkIH P9dXfjQGigXGDwfV0yZJEs S3n8InTgJfY7WRwjM5LtMQHzaaz oCx49hV4cBuBqNqY3IXvaN6Xyic F2ECEguBAnIHadGHH4B04z j5V4VFPiOXMjRYQ5oXM2gG6qwGt nbjogbGVmdDsgdmVydGljYWwtYW jxG429JQBnhFqpBiEfNWTk NO0qpYmopNB+BW91bn92P9AeGta pIdl8TEGbHBG9sYO4rQ8nFSEiGC oap8Z2cXR0B8ZdflBjpz0m h5rnZASwDLzfH76fkPJjx3R7NKN xrHK9OIGhpShgSlYstM99Faz+PG IniGkqu8VaFlvid6zsi5ld qEs8IoBkJBMjooVnqZciDOE6n7W zAa94V12vGOewVJCaOEQwIFMmEV WfkHpfnm8nnH1lIu5+PGNv sCL3jVQ5xS4mSjLoGvM3TFflQ56 0WhMafCAcZubpg2doe8rlfJn0Ve JwCZYbocOcyGnqAIJ5h2Ud Uz64T8TjaZzkd8BhNxu9ro56oIT ix0C9eOM6X9SbOMQnfxdgxUGkjY rlSQ7bFPIkzysuUIAatI2w FBLtK2u5YtHbSyW8UYezA8OvdsK 2ZOEonQHkKQXeiPFAaN9zghdbh9 vcziyqVwKfNGCfXNb0UJj2 TJBjpOwzPlOmAXV8GgL2JXE7fBK esF3hvZowhzbdkR9rNvl+UGh5c2 hrgAPmYI2piHW1WB32DH45 vHDrx7M3xZG4S4XrNBGnxxansll xfZX0UZNaNFTabR41Ey9blDvxAa 0jONOaTJW9AQByoKAzB7To cB7sAdJdPSRsKTTnM2FmdGEmIWf pO019KOquHdE8VTQamdObB4DyBZ WctLsfZjH7b3G3Gv7FKD30 YQ76EQ25qRRxy4G0tTM0P9GkXEK dpajtewxtyVX3ULOzSDOhqR45Pc 5voIjsBt8dFXPlMOL2EBTj eYJpK2KwiP1iOcZjVHYoLURnE9P zrVUoJRlaA441CHdnNkM1FBXwhu SkH0CmWKEtxQmtCkA9w5A8 Ay0KKx24ZX50QP65eUHcu8H9dTS 8E6ZfZFCtrteyomfxsEF1JPPgQI BlbC96Yz3rfUmoVy0bMMMq KEN2YYYmuEUcG7ArfX9jYjEdVVJ iQFEgG7GgnDYtSExjP056GCqsJf X9DLDsdgRfE0JyVBAezRgv MgG2d4E7Pp0ZCTfhtpl8L5QbGha vdHI+PM96NBSbNA65uSRkxJTrf5 szcBq7MaCwMJFiNOL4gRtp PSd (more content not included)... [facility] Consent [facility] 08-03-2022 Consent Forms [id number] [facility] .Auto Diff 1on 07-31-2022 Auto Nolan % 8 % Normal 05-28 [facility] Comment on above: Performed By: #### 1 [id number], [id number], [id number], 8824092, 2962791, 4032625758, [id number] ####[facility] (DEFAULT)[address] [place] [address] 73269 Baso Abs# 0.0 x10 Normal 0.0-0.2 [facility] Comment on above: Performed By: #### 1 4885409, [id number], 4315261333, 6400211, 9210288, 9307716996, [id number] ####[facility] (DEFAULT)[address] [place] [address] 96671 Basophils/100 WBC (Bld) 1.0 % Normal 0.2-2.0 [facility] Comment on above: Performed By: #### 1 5359974, 8416438379, 2589032976, 4268094, 5905757, 3918704664, [id number] ####[facility] (DEFAULT)[address] [place] [address] 77039 Eos Abs# 0.1 x10 Normal 0.0-0.4 [facility] Comment on above: Performed By: #### 1 2650974, 8498514414, 0933747743, 5921326, 1089861, [id number], ####[facility] (DEFAULT)[address] [place] [address] 44294 Eosinophils/100 WBC (Bld) 2.2 % Normal 0.9-4.0 [facility] Comment on above: Performed By: #### 1 7541213, 6652686426, 8085184518, 8471052, 2959962, 4375814159, ####[facility] (DEFAULT)[address] [place] [address] 51741 Lymph Abs# 1.5 x10 Normal 1.3-2.9 [facility] Comment on above: Performed By: #### 1 9149680, 6545801226, 1313177636, 1176118, 8146707, 4363668459, 4353144605 ####[facility] (DEFAULT)[address] [place] [address] 40821 Lymphocytes/100 WBC (Bld) 35 % Normal 14-48 [facility] Comment on above: Performed By: #### 1 7086011, 5017032014, 3393325657, 2256171, 7874172, 0452138615, ####[facility] (DEFAULT)[address] [place] [address] 26617 Nolan Abs# 0.4 x10 Normal 0.0-0.8 [facility] Comment on above: Performed By: #### 1 9916480, 9210126694, 2027595867, 5691124, 9958737, 6842846908, 0698757215 ####[facility] (DEFAULT)[address] [place] [address] Neut Abs# 2.3 x10 Normal 1.5-9.2 [facility] Comment on above: Performed By: #### 1 0694864, 0321885286, 8531425459, 7276857, 1260225, 8363989031, 2857863276 ####[facility] (DEFAULT)[address] [place] [address] Neutrophils/100 WBC (Bld) 54 % Normal 44-88 [facility] Comment on above: Performed By: #### 1 9510097, 8376147276, 4071602906, 0588304, 0842290, 0213239939, 7232269241 ####[facility] (DEFAULT)[address] [place] [address] CBC w/ Auto Diffon Erythrocyte distribution width (RBC) [Ratio] 14.7 % Normal 11.5-15.0 [facility] Comment on above: Performed By: #### 1 6351754, 6162598727, 9332297235, 6696033, 0592901, 3858824749, [id number] ####[facility] (DEFAULT)[address] [place] [address] Hematocrit (Bld) [Volume fraction] 39.8 % Normal 33.7-40.4 [facility] Comment on above: Performed By: #### 1 8614375, 3675717871, 4671296518, 8430816, 2632487, 6574506909, 4709299191 ####[facility] (DEFAULT)[address] [place] [address] Hemoglobin (Bld) [Mass/Vol] 12.9 g/dL Normal 11.3-15.9 [facility] Comment on above: Performed By: #### 1 2033683, 2605546237, 7422321060, 7221862, 9671552, 1870741692, 4572828100 ####[facility] (DEFAULT)[address] [place] [address] Man Diff? Auto Invalid Interpretation Code [facility] Comment on above: Performed By: #### 1 [id number], 9700908524, 0792239537, 5705158, 4554526, 3023569641, ####[facility] (DEFAULT)[address] [place] [address] 65553 MCH (RBC) [Entitic mass] 25 pg Normal 24-34 [facility] Comment on above: Performed By: #### 1 2576272, 2180870586, 5712663389, 4946788, 1752334, 9081558549, ####[facility] (DEFAULT)[address] [place] [address] 76557 MCHC (RBC) [Mass/Vol] 32 g/dL Normal 26-37 [facility] Comment on above: Performed By: #### 1 9661542, 2485406076, 5932246366, 2251224, 9137757, 3186050548, ####[facility] (DEFAULT)[address] [place] [address] 92432 MCV (RBC) [Entitic vol] 77 fL Low 81-100 [facility] Comment on above: Performed By: #### 1 7411394, 5813987113, 5520377822, 3028793, 9314806, 6080972799, ####[facility] (DEFAULT)[address] [place] [address] 31989 Platelet 254 x10 Normal 138-427 [facility] Comment on above: Performed By: #### 1 3636528, 5081348608, 8796360511, 3646963, 0202945, 3965590905, ####[facility] (DEFAULT)[address] [place] [address] 47382 Platelet mean volume (Bld) [Entitic vol] 8.8 fL Normal 6.3-10.2 [facility] Comment on above: Performed By: #### 1 0665143, 8068522329, 6626431568, 8419319, 4064839, 8270474712, 5299082182 ####[facility] (DEFAULT)[address] [place] [address] 30186 RBC 5.14 x10 Normal 3.70-5.30 [facility] Comment on above: Performed By: #### 1 4794304, 4797941597, 9863904686, 6563014, 8641223, 3872457481, 4031473522 ####[facility] (DEFAULT)[address] [place] [address] 45014 WBC 4.4 x10 Normal 3.5-10.5 [facility] Comment on above: Performed By: #### 1 6971391, 1464667544, 7310228441, 8840470, 2092087, 4688651250, 7113869198 ####[facility] (DEFAULT)[address] [place] [address] 08112 CMP Standardon 07-31-2022 eGFR Non AA >60 Invalid Interpretation Code [facility] Comment on above: Performed By: #### 1 4585977, 2716703040, 9071812416, 4585682, 8565788, 5511549010, 8864354335 ####[facility] (DEFAULT)[address] [place] [address] 90893 eGFR AA >60 Invalid Interpretation Code [facility] Comment on above: Performed By: #### 1 1934989, 5702181406, 0957386068, 9031836, 4607213, 7391377691, 2850204446 ####[facility] (DEFAULT)[address] [place] [address] 78836 Albumin [Mass/Vol] 4.5 g/dL Normal 3.5-5.0 [facility] Comment on above: Performed By: #### 1 8720840, 8105726839, 0633633050, 7366895, 8647058, 1083686672, 9437558520 ####[facility] (DEFAULT)[address] [place] [address] 51217 Alk Phos 70 IU/L Normal 32-91 [facility] Comment on above: Performed By: #### 1 8877784, 7347396751, 1325147006, 3967231, 6100667, 5373816844, 3830483972 ####[facility] (DEFAULT)[address] [place] [address] 28646 ALT [Catalytic activity/Vol] 20.0 U/L Normal 8.0-29.0 [facility] Comment on above: Performed By: #### 1 5034287, 9540397349, 0059145937, 3233124, 2425483, 6099490607, ####[facility] (DEFAULT)[address] [place] [address] 16334 AST [Catalytic activity/Vol] 19 U/L Normal 14-37 [facility] Comment on above: Performed By: #### 1 0597805, 3906743500, 6301384168, 0783130, 5044951, 3783043352, ####[facility] (DEFAULT)[address] [place] [address] 83884 Bili Total 0.7 mg/dL Normal 0.0-2.0 [facility] Comment on above: Performed By: #### 1 7837833, 7093082508, 4443285271, 3781321, 7729855, 5328150357, ####[facility] (DEFAULT)[address] [place] [address] 89428 Calcium [Mass/Vol] 9.1 mg/dL Normal 8.9-10.3 [facility] Comment on above: Performed By: #### 1 3202900, 6943306154, 5956365204, 7574367, 0002861, 4158362898, ####[facility] (DEFAULT)[address] [place] [address] 07742 Chloride [Moles/Vol] 105 mmol/L Normal 101-111 [facility] Comment on above: Performed By: #### 1 7174319, 1129671757, 6467999418, 8840779, 0329186, 6687447620, 6007759084 ####[facility] (DEFAULT)[address] [place] [address] 52427 CO2 [Moles/Vol] 23 mmol/L Normal 21-32 [facility] Comment on above: Performed By: #### 1 1918413, 1102256928, 5298273046, 3137748, 9822945, 3419699995, ####[facility] (DEFAULT)[address] [place] [address] 94183 Creatinine [Mass/Vol] 0.64 mg/dL Normal 0.30-1.00 [facility] Comment on above: Performed By: #### 1 7126658, 1699085520, 0164182176, 4491450, 9382115, 0037569660, 1870841693 ####[facility] (DEFAULT)[address] [place] [address] 67855 Glucose [Mass/Vol] 92.0 mg/dL Normal 56.0-144.0 [facility] Comment on above: Performed By: #### 1 2037022, 8513796379, 6027575228, 5919196, 0252964, 7032251628, ####[facility] (DEFAULT)[address] [place] [address] 64401 Potassium [Moles/Vol] 3.5 mmol/L Low 3.6-5.1 [facility] Comment on above: Performed By: #### 1 6465594, 8460057253, 4099281096, 3406670, 9234128, , ####[facility] (DEFAULT)[address] [place] [address] 48743 Protein [Mass/Vol] 8.0 g/dL Normal 6.1-8.0 [facility] Comment on above: Performed By: #### 1 6774697, 9753895395, 5327180553, 3133665, 2653534, 2459071401, ####[facility] (DEFAULT)[address] [place] [address] 45412 Sodium [Moles/Vol] 133.0 mmol/L Low 136.0-144.0 [facility] Comment on above: Performed By: #### 1 1360482, 6151204245, 6395762179, 6485414, 0543919, 5948465087, ####[facility] (DEFAULT)[address] [place] [address] 68567 Urea nitrogen [Mass/Vol] 10 mg/dL Normal 8-26 [facility] Comment on above: Performed By: #### 1 1495093, 4921706927, 9430752399, 7815735, 9762821, 1072886303, ####[facility] (DEFAULT)[address] [place] [address] 93870 Albumin/Globulin [Mass ratio] 1.2 {ratio} Low 1.4-2.6 [facility] Comment on above: Performed By: #### 1 0634057, 9884751624, 6139178295, 7967688, 2468128, 3996915793, ####[facility] (DEFAULT)[address] [place] [address]6577 Anion gap [Moles/Vol] 8.5 mmol/L Normal 5.0-19.0 [facility] Comment on above: Performed By: #### 1 [id number], [id number], [id number], [id number], [id number], [id number], ####[facility] (DEFAULT)[address] [place] [address] Globulin (S) [Mass/Vol] 3.5 g/dL Normal 1.5-4.3 [facility] Comment on above: Performed By: #### 1 [id number], [id number], [id number], [id number], [id number], , ####[facility] (DEFAULT)[address] [place] [address]393 Osmolality 265 mOsm/L Invalid Interpretation Code [facility] Comment on above: Performed By: #### 1 [id number], [id number], [id number], [id number], [id number], [id number], ####[facility] (DEFAULT)[address] [place] [address] 50762 Urea nitrogen/Creatini ne [Mass ratio] 15.6 mg/mg Normal 4.6-16.2 [facility] Comment on above: Performed By: #### 1 [id number], [id number], [id number], [id number], [id number], [id number], ####[facility] (DEFAULT)[address] [place] [address] 62018 CRPon 07-31-2022 CRP 0.6 mg/dL High <=0.5 [facility] Comment on above: Performed By: #### 1 [id number], [id number], [id number], [id number], [id number], [id number], [id number] ####[facility] (DEFAULT)[address] [place] [address] CT Abdomen/Pelvis w/ Contras ton 07-31-2022 CT Abdomen/Pelvis w/ Contrast EXAMINATION: CT Abdomen/Pelvis w/ Contrast, 07/31/2022 12:12 PM EDT HISTORY: RLQ abdominal pain COMPARISON: None TECHNIQUE: CT scan of the abdomen and pelvis was performed with IV contrast. CT dose reduction technique was used, including Automated Exposure Control. FINDINGS: Abdomen: Visualized lower lung cortez appear grossly unremarkable. Views of the liver and spleen fail to demonstrate evidence of focal mass in either organ. Gallbladder, pancreas and adrenal glands appear grossly unremarkable. Stomach appears grossly unremarkable. Bowel loops appear grossly unremarkable. Visualized vascular structures are grossly intact. No evidence of adenopathy in the retroperitoneum. No obvious renal mass or obstructive uropathy. Pelvis: Bladder appears grossly unremarkable. Uterus appears grossly unremarkable. There are follicles in both ovaries. Perirectal fat planes are grossly intact. Bowel loops appear grossly unremarkable. Visualized vascular structures are grossly intact. No evidence of adenopathy. The appendix is visualized and appears unremarkable. Bony structures are grossly intact with slight convexity of the lumbar spine to the left. IMPRESSION: CT abdomen and CT pelvis studies demonstrate the appendix to be unremarkable. No obvious acute process identified. Final Dictated by: Azar Sellers MD Dictated DT/TM: 07/31/22 12:23 Signed (Electronic Signature): Azar Sellers MD 07/31/22 12:29 p Technologist: Natalia JI [facility] Comment on above: Order Comment: IV on ly ED Clinical Summaryon 2022 ED Clinical Summary [facility] - Emergency Department [address] [place] [id number] ED Clinical Summary PERSON INFORMATION Name: SHEYLA LEA Age: 17 Years Sex: FEMALE : 2005 MRN: Acct#: Visit Reason: Abdominal pain; ABD PAIN Arrival: 07/31/2022 11:11:49 Discharge: 07/31/2022 13:07:00 LOS: 000 01:56 Check In: 07/31/2022 11:11:49 Checkout:07/31/2022 13:07:00 Address: [address] [place] [address] PCP: KEVIN STOKES PROVIDER INFORMATION Provider Role Assigned Unassigned KATHLEEN LUNDBERG ED PA 07/31/2022 11:14:51 Gila Solis [employer] Nurse 07/31/2022 11:22:38 VITALS INFORMATION Vital Sign Triage Latest Temperature Tympanic Temperature Temporal Artery Pulse Rate 89 bpm 89 bpm O2 Sat 98 % 98 % Respiratory Rate 16 br/min 16 br/min Blood Pressure /78 mmHg /78 mmHg MEDICAL INFORMATION Medications Given: Medication Dose Route Sodium Chloride 0.9% intravenous solution 1,000 mL 1000 mL Initial Volume 500 mL/hr IV Left Antecubital Fossa iohexol (Omnipaque 350.) 350 mg IV Push Allergy Information: No Known Medication Allergies PHYSICIAN DOCUMENTATION Patient: SHEYLA LEA Age: 17 years Sex: FEMALE : 2005 Associated Diagnoses: Abdominal pain; Elevated blood pressure reading Author: KATHLEEN LUNDBERG Basic Information Time seen: Date & time 07/31/2022 11:15:00. History source: Patient. Arrival mode: Private vehicle, walking. History of Present Illness Patient is an 17-year-old female presenting to emergency department with complaint of lower abdominal pain more so on the right side intermittently over the last week. She states she experiences this mostly at nighttime when she is ready to go to bed, states this does cause her to vomit a few times over the last week. She denies food making a difference with pain and states this has been constant every night sometimes in the morning. She states she is having pain in the right lower quadrant of her abdomen at this time. She denies any fevers, chest pains, shortness of breath, denies any issues with bowels or bladder, states she does have Nexplanon and no chance of . Patient denies taking any other medications or having any other medical issues. Denies anyone else at home being sick. Review of Systems Constitutional symptoms: No fever, Skin symptoms: No rash, Eye symptoms: Vision unchanged. ENMT symptoms: No sore throat, no nasal congestion. Respiratory symptoms: No shortness of breath, no cough. Cardiovascular symptoms: No chest pain, no tachycardia. Gastrointestinal symptoms: Abdominal pain, moderate, right lower quadrant, acute, sharp, achy, cramping, vomiting. Genitourinary symptoms: No dysuria, Musculoskeletal symptoms: No back pain, Neurologic symptoms: No headache, no dizziness. Health Status Allergies: Allergic Reactions (Selected) No Known Medication Allergies. Medications: (Selected) Documented Medications Documented Nexplanon 68 mg subcutaneous implant: 68 mg = 1 EA, SubQ. Past Medical/ Family/ Social History Family history: No family history items have been selected or recorded.. Social history: Social & Psychosocial Habits Alcohol 07/08/2022 Alcohol Use: Never Employment/School 01/19/2022 Status: Student Substance Abuse 07/08/2022 Substance use: Never Tobacco 07/08/2022 Smoking tobacco use: Never tobacco user Electronic Cigarette/Vaping 07/08/2022 Electronic Cigarette Use: Never . Physical Examination CONST: -Well-developed well-nourished. -Acute distress: No -Vitals: reviewed. SKIN: -Gross abnormalities: No EYES: -EOM intact, NATHAN: -Sclera conjunctiva: Unremarkable. ENT: - pharynx pink and moist. NECK: -Supple ([id number]): non-tender. CARD: -Rate and rhythm: Regular -Edema: No -Calf pain: No RESP: -Respiratory effort and chest excursion with respirations: Normal -Breath sounds equal bilaterally: Clear -Wheezes: No -Rales: No BACK: -Signs of pain with movement: No ABD: -Distended: No -Bruits: No -Bowel sounds: Normal. -Deep palpation: Increased discomfort palpation right lower quadrant, positive rebound tenderness, positive Rovsing sign EXT: Gross appearance and use of all four extremities: Unremarkable NEURO: -Patient: alert -Gross CN or Focal Neuro deficits: No -Oriented to: person, place and time. -Appearance and judgment: appropriate. Medical Decision Making 17-year-old female presenting to emergency department with complaint of pain right lower quadrant abdomen over the last week getting worse, mainly at nighttime causing vomiting. Patient is having pain at this time. Patient had pain with palpation of lower abdomen greater in the right lower quadrant. Recommended blood work, urinalysis, CT scan of abdomen pelvis, patient was in agreement. Patient's blood work shows sodium of 133 with potassium of 3.5, CRP is very mildly elevated at 0.6, (more content not included)... Normal [facility] ED Note - Physicianon 2022 ED Note - Physician Patient: SHEYLA LEA Age: 17 years Sex: FEMALE : 2005 Associated Diagnoses: Abdominal pain; Elevated blood pressure reading Author: KATHLEEN LUNDBERG Basic Information Time seen: Date & time 07/31/2022 11:15:00. History source: Patient. Arrival mode: Private vehicle, walking. History of Present Illness Patient is an 17-year-old female presenting to emergency department with complaint of lower abdominal pain more so on the right side intermittently over the last week. She states she experiences this mostly at nighttime when she is ready to go to bed, states this does cause her to vomit a few times over the last week. She denies food making a difference with pain and states this has been constant every night sometimes in the morning. She states she is having pain in the right lower quadrant of her abdomen at this time. She denies any fevers, chest pains, shortness of breath, denies any issues with bowels or bladder, states she does have Nexplanon and no chance of . Patient denies taking any other medications or having any other medical issues. Denies anyone else at home being sick. Review of Systems Constitutional symptoms: No fever, Skin symptoms: No rash, Eye symptoms: Vision unchanged. ENMT symptoms: No sore throat, no nasal congestion. Respiratory symptoms: No shortness of breath, no cough. Cardiovascular symptoms: No chest pain, no tachycardia. Gastrointestinal symptoms: Abdominal pain, moderate, right lower quadrant, acute, sharp, achy, cramping, vomiting. Genitourinary symptoms: No dysuria, Musculoskeletal symptoms: No back pain, Neurologic symptoms: No headache, no dizziness. Health Status Allergies: Allergic Reactions (Selected) No Known Medication Allergies. Medications: (Selected) Documented Medications Documented Nexplanon 68 mg subcutaneous implant: 68 mg = 1 EA, SubQ. Past Medical/ Family/ Social History Family history: No family history items have been selected or recorded.. Social history: Social & Psychosocial Habits Alcohol 07/08/2022 Alcohol Use: Never Employment/School 01/19/2022 Status: Student Substance Abuse 07/08/2022 Substance use: Never Tobacco 07/08/2022 Smoking tobacco use: Never tobacco user Electronic Cigarette/Vaping 07/08/2022 Electronic Cigarette Use: Never . Physical Examination CONST: -Well-developed well-nourished. -Acute distress: No -Vitals: reviewed. SKIN: -Gross abnormalities: No EYES: -EOM intact, NATHAN: -Sclera conjunctiva: Unremarkable. ENT: - pharynx pink and moist. NECK: -Supple ([id number]-rh-[id number]): non-tender. CARD: -Rate and rhythm: Regular -Edema: No -Calf pain: No RESP: -Respiratory effort and chest excursion with respirations: Normal -Breath sounds equal bilaterally: Clear -Wheezes: No -Rales: No BACK: -Signs of pain with movement: No ABD: -Distended: No -Bruits: No -Bowel sounds: Normal. -Deep palpation: Increased discomfort palpation right lower quadrant, positive rebound tenderness, positive Rovsing sign EXT: Gross appearance and use of all four extremities: Unremarkable NEURO: -Patient: alert -Gross CN or Focal Neuro deficits: No -Oriented to: person, place and time. -Appearance and judgment: appropriate. Medical Decision Making 17-year-old female presenting to emergency department with complaint of pain right lower quadrant abdomen over the last week getting worse, mainly at nighttime causing vomiting. Patient is having pain at this time. Patient had pain with palpation of lower abdomen greater in the right lower quadrant. Recommended blood work, urinalysis, CT scan of abdomen pelvis, patient was in agreement. Patient's blood work shows sodium of 133 with potassium of 3.5, CRP is very mildly elevated at 0.6, normal white blood cell count hemoglobin and platelets. Urinalysis shows no acute infection, negative . CT scan of the abdomen pelvis demonstrates the appendix to be unremarkable, no obvious acute process identified in the abdomen pelvis as interpreted by radiologist. Discussed this with the patient. I did offer an ultrasound of the pelvis, she declined indicated she would follow-up closely did not think an ultrasound is necessary at this time. I recommended returning for any worsening issues or having any worsening problems such as increasing pains, tractable vomiting, fevers or any other problems. Patient indicated she understood was in agreement. Patient stable will be discharged Results review: Lab results : Lab Flowsheet 07/31/2022 11:42 EDT Sodium Level 133.0 mmol/L LOW Potassium Level 3.5 mmol/L LOW Chloride Level 105 mmol/L CO2 23 mmol/L Anion Gap 8.5 mmol/L Glucose Level 92.0 mg/dL BUN 10 mg/dL Creatinine Level 0.64 mg/dL BUN/Creat Ratio 15.6 eGFR AA >60 mL/min/1.73m2 NA eGFR Non AA >60 mL/min/1.73m2 NA Calcium Level 9.1 mg/dL Bili Total 0.7 mg/dL Alk Phos 70 IU/L AST/SGOT 19 IU/L ALT/SGPT 20.0 IU/L (more content not included)... Normal [facility] ED Patient Summaryon 023 ED Patient Summary [facility] - Emergency Department [address] [place] [address] PATIENT DISCHARGE INSTRUCTIONS Patient Information Name: SHEYLA LEA Age: 17 Years Date of : 2005 Reason For Visit: Abdominal pain; ABD PAIN Arrival Time: 07/31/2022 11:11:49 Primary Care Physician: KEVIN STOKES Attending Physician: Ean Solorzano MD Comment: Visit Diagnosis: Diagnoses This Visit Abdominal pain ([id number]) Abdominal pain (R10.9) Elevated blood pressure reading (R03.0) The Pharmacy at [facility] is open Wednesday through Wednesday from 9A to 6P and Wednesday and Wednesday from 9A to 5P Prescription Information: If you have been given a prescription for narcotics, seek immediate medical attention if you have any difficulty breathing or any sudden status changes such as confusion and sleepiness. If you or anyone you know is experiencing suicidal thoughts, mental health, alcohol and/or drug addiction problems; contact the [facility] Of [facility] 07/12 Crisis Hotline -Text 3GMWW or 951925. If you received any narcotics, sedation, or any other medication that causes drowsiness for the next 24 hours, unless otherwise directed: ? Do not drive a car. ? Do not operate machinery such as power tools, lawn mowers, drills, sewing machines, or stoves ? Avoid alcoholic beverages and drugs for allergies, nerves, or sleep ? Do not make important personal or business decisions or sign any legal documents With: Address: When: KEVIN STOKES [address] [place], [place] [id number] Business (1) Within 2 to 4 days Comments: Follow-up primary care provider next few days for reevaluation. Continue with bland diet over the next few days. Return for any worsening issues such as crushing chest pains, shortness of breath, increasing abdominal pains or any other problems. You were seen in the emergency department for abdominal pain. Diagnostic workup in the ER did not reveal any specific explanation for your abdominal pain. No acute emergency identified. Contact your family doctor or PCP within the next one to 2 days for reevaluation. Return to ER for any concerns especially worsening pain, fever, vomiting or weakness. Medication Information: The exam and treatment you received today in the [facility] Emergency Department were for an urgent problem and are not intended as complete care. It is important for you to follow up with a doctor, nurse practitioner, or physician?s anesthesia assistant for ongoing care. If your symptoms become worse or you do not improve as expected and you are unable to reach your usual health care provider, you should return to the Emergency Department, we are available 24 hours a day. For those patients who have received Radiology results, the interpretation of your X-ray as given to you by our Emergency Department physician is only a preliminary report. The Radiologist will review your films and if there is a change in the diagnosis you will be notified by phone. Please make sure you have provided a working phone number so we can reach you if necessary. In the event that you had a lab culture while you were a patient in the Emergency Department, you will be notified by phone if there is a need to change your antibiotic. Please make sure you have provided a working phone number so we can reach you if necessary. [facility] Emergency Department has provided you with a complete list of medications post discharge. Please inform your impregnator carbon products/provider of your visit and for further instruction on these medications. Any specific questions regarding your chronic medications and dosages should be discussed with your primary care physician(s) and/or pharmacist. Additional medications on your home medication list not specifically addressed. Please contact the ordering physician if you have questions about these medications. etonogestrel (Nexplanon 68 mg subcutaneous implant) 1 Each Subcutaneous. Visit Information Allergies: Substance Reaction Symptoms Type Comments No Known Medication Allergies Drug Vital Signs: Vitals and Measurements this Visit (last charted value for your 07/31/2022 visit) Vital Signs This Visit Temperature Temporal: 36.6 DegC Peripheral Pulse Rate: 89 bpm Respiratory Rate: 16 br/min Systolic Blood Pressure: 139 mmHg Diastolic Blood Pressure: 78 mmHg SpO2: 98 % Oxygen Therapy: Room air Measurements This Visit Height/Length Dosin.480 cm Height/Length Estimated: 157.480 cm Weight Dosin.110 kg Weight Estimated: 77.110 kg Problems List: Problem Onset Comments No Problems found Patient Education Hypertension, Adult High blood pressure (hypertension) is when the force of blood pumping through the arteries is too strong. The arteries are the blood vessels that carry blood from the heart throughout (more content not included)... Normal [facility] Extra Greenon 07-31-2022 Tube Collected Yes Invalid Interpretation Code [facility] Comment on above: Performed By: #### 1 [id number], [id number], [id number], [id number] ####[facility] (DEFAULT)[address] [place] [address] 149[address] Extra Redon 07-31-2022 Tube Collected Yes Invalid Interpretation Code [facility] Comment on above: Performed By: #### 1 [id number], [id number], [id number], [id number] ####[facility] (DEFAULT)[address] [place] [address] 18549 Lactic Acidon 07-31-2022 Lactic Acid 6.5 mg/dL Normal 4.5-19.8 [facility] Comment on above: Performed By: #### 2 [id number] ####[facility] (DEFAULT)[address] [place] [address] 43146 Test Urine 1on U Preg Negative [facility] Comment on above: Performed By: #### 1 [id number], [id number], [id number] #### [facility] (DEFAULT) [address] [place] [address] 61008 U Preg Internal Control Pass [facility] Comment on above: Performed By: #### 1 [id number], [id number], [id number] #### [facility] (DEFAULT) [address] [place] [address] 93498 UA Exssl0bl 07-31-2022 UA Bacteria None [facility] Comment on above: Order Comment: Urina lysis Microscopic order added on by [employer] Expert Rules system. Performed By: #### 1 [id number], [id number], [id number] #### [facility] (DEFAULT) [address] [place] [address] 56981 UA RBC 0-2 [facility] Comment on above: Order Comment: Urina lysis Microscopic order added on by [employer] Expert Rules system. Performed By: #### 1 [id number], [id number], [id number] #### [facility] (DEFAULT) [address] [place] [address] 69918 UA Squam Epi Rare [facility] Comment on above: Order Comment: Urina lysis Microscopic order added on by [employer] Expert Rules system. Performed By: #### 1 [id number], [id number], [id number] #### [facility] (DEFAULT) [address] [place] [address] 74125 UA WBC None Seen [facility] Comment on above: Order Comment: Urina lysis Microscopic order added on by [employer] Expert Rules system. Performed By: #### 1 [id number], [id number], [id number] #### [facility] (DEFAULT) [address] [place] [address] 87745 UA w Culture if Ind Standard on 07-31-2022 Breakpoint UA [facility] Comment on above: Performed By: #### 1 [id number], [id number], [id number] #### [facility] (DEFAULT) [address] [place] [address] 99401 Color (U) Yellow Normal [facility] Comment on above: Performed By: #### 1 [id number], [id number], [id number] #### [facility] (DEFAULT) [address] [place] [address] 22569 Culture? No Normal [facility] Comment on above: Result Comment: Resu lt created by rule GL_MAGR_ADD_UA_CULT Result created by rule GL_MAGR_ADD_UA_CULT1 Performed By: #### 1 [id number], [id number], [id number] #### [facility] (DEFAULT) [address] [place] [address] 70566 Glucose (U) [Mass/Vol] Negative [facility] Comment on above: Performed By: #### 1 [id number], [id number], [id number] #### [facility] (DEFAULT) [address] [place] [address] 08441 Ketones Ql (U) Negative [facility] Comment on above: Performed By: #### 1 [id number], [id number], [id number] #### [facility] (DEFAULT) [address] [place] [address] 51126 Micro? Indicated Invalid Interpretation Code [facility] Comment on above: Result Comment: Resu lt created by rule GL_MAGR_ADD_UA_MICRO Performed By: #### 1 [id number], [id number], [id number] #### [facility] (DEFAULT) [address] [place] [address] 54107 UA Bilirubin Negative Normal [facility] Comment on above: Performed By: #### 1 [id number], [id number], [id number] #### [facility] (DEFAULT) [address] [place] [address] 92690 UA Blood SMALL Abnormal NEGATIVE [facility] Comment on above: Performed By: #### 1 [id number], [id number], [id number] #### [facility] (DEFAULT) [address] [place] [address] 55211 UA Clarity CLEAR Normal CLEAR [facility] Comment on above: Performed By: #### 1 [id number], [id number], [id number] #### [facility] (DEFAULT) [address] [place] [address] 87216 UA Leuk Est Negative Normal NEGATIVE [facility] Comment on above: Performed By: #### 1 [id number], [id number], [id number] #### [facility] (DEFAULT) [address] [place] [address] 86506 UA Nitrite Negative Normal NEGATIVE [facility] Comment on above: Performed By: #### 1 [id number], [id number], [id number] #### [facility] (DEFAULT) [address] [place] [address] UA pH 7.0 Normal 5-8 [facility] Comment on above: Performed By: #### 1 [id number], [id number], [id number] #### [facility] (DEFAULT) [address] [place] [address] 85604 UA Protein Negative Normal NEGATIVE [facility] Comment on above: Performed By: #### 1 [id number], [id number], [id number] #### [facility] (DEFAULT) [address] [place] [address] UA Spec Grav 1.010 Normal 1.001-1.035 [facility] Comment on above: Performed By: #### 1 [id number], [id number], [id number] #### [facility] (DEFAULT) [address] [place] [address] 83947 UA Urobilinogen 0.2 mg/dL Normal 0.2-1.0 [facility] Comment on above: Performed By: #### 1 [id number], [id number], [id number] #### [facility] (DEFAULT) [address] [place] [address] Urine Source Clean Catch Normal [facility] Comment on above: Performed By: #### 1 [id number], [id number], [id number] #### [facility] (DEFAULT) [address] [place] [address] Coding Summaryon 07-11-2022 Coding Summary HTMLBase 64 OtqusostVAu3uYm+PGhlYWQ+PE1 VLVMuW94epRGtzQ1RT0lSYU2LGK ZGNQMLKG1MWN9oxLL8KQbrU9Uwk iAv CyowoVIsKY08ZXg6GWN2qDxaFZr veB3arWEdK9b3LbDqFS40eH39OX hzAUQoDqQ8YxYfoqgimCHo K2gnJoWaeMVyGsh+PHRhYmxlIHd fJIBqTTssEJNzIkUvyJboIU9lCs 9yZGVyLWNvbGxhcHNlOiBj v9kbPLNzOVwcSS7yxIuqK0RqpJN 6QQMtt1o7Su56kNA+THHiDEF7kA jkQLtko234PzYil5xkAEO3 xEYuGRsnXEG4I84su9O7YPOdCHD tTZF6bVW2zN6caTzoumjpS7BexT XoOtD3ENA5eBWvcR4rdLeg pagafI2mMyz+H72PHE9SAZIFQS7 VRma2V0LsYoihuUV+EG38EWHpIJ 77bAPpzIXck1jxbKn8HyVq NHXnYMT6iFgcZCqbi9ElXAKwI28 hkKRha3K0TNGxdGbqjISuKcUpuH X7tT7eGFxopcvli2hyngwj Xdqkb8xask10qJ08A27qQWltMJA jPCD5XLWzFROzvXvvin3fwF1eJv 8+DVwhl8jpv7zmqMk0TzHq IDVdveRcqVqwZTJ5s7FfGr24P9P rfXnij2TvQpt9vy19rJQkk6U0dD V6QWsbEZOwrB2qOVpyLmD3 NCFtAwTnlI16eGQrRFcdUs5keMz ikAdrNJ6yJLZipzjxIROhjC1bTJ SowBBmwZevMU6pQGVorjtp g650JdCxRYA3ZXQrbBJfE6ElkB2 wArVpWBZnPGXuI6EyxAZzSCldK0 84YOglBbF6FRUgcbNhT5Sk WIDopMriGbD2f6N6Km6Xp7Cpjkm iDKK7LEszFFFmCvU4VoMwVtU6A5 OcLiw8ZBAwlXruKH8yC9Uq REBhwqmzuwjnsAN0XEJcUJDevS2 9dQOkOKhdCr1re8B2j674QZEzPP WhiR26Yu6cgSkkQSOtpNUL cP9wxwxlx4qyhsdvLsKdCTIuDCc 7HWz1MNKccPonHuZpDSP3XkE0RF G4gOPcnO4mbCnjepktjE9p Oyc+O17bqW6gKDB4IFK9feymGMR zrlWcAE37TZ16X7SfIzyhiKFigZ U+MTLyleMopTxkAS5aSgYk w5hjz2AdCBthI0BwLEBxSWpkSfi 9RPTfIIF4vVA9iA7lXIAeHGqvc2 C4uAO7F2RqtySygd3ee5fe YGMyEZacQ54ciDYdt4O8MINxbBH 7QOKwuUjsLaYafP45Sxj+PGNvbG zig2QpXcvef7erv0gjjCw2 ItSsAZEywgYkgQxmMCZ7w4UzSd3 7E73jICexQEZsUEFxDZQnKWQybU ghzs3lbZ0cTw6+PGNvbCB3 jAT7dS9iMBDyWtZ0FFabT715ZxI zeTIiCzuxp1hfy6wifFh5YoLgFU FbeuAnxYmqFBA1a9KgNi67 A52bUHpyUDWbFMOfWLEdKENvaSh dui0plK8fFd2+MA3as9ugnu48dY 48dHI+EULtZHT7pJynLDiy DWDppK4fYCbqKxN8KGPtGnCniO4 5oKPkZPcqUo9eyMarxKytTY4lIN Fqsqrdn326DmOpj8lqIMRt uVGaLOwkSJF9A84sq1N5MHAcKRO lBRM2tHK2wW8wpYrrczzkmWYhyH hdnhAjsFayCEpiDQznZ612 IHRvcDsnPlBhdGllbnQgTmFtZTo 2C5WnSbv6REEfvLpmDT9aaUIsSI utId8xdNisuTncGG7yNRXz vqkvv089BoAzb6asNWZzhFKxBFe oMTK9R60ko8L1JCIkSIOfFGG3pR O9yJ0zkXbncjueeUSuzSay qpRlfOfaJHnrFUogA243TEBxlJg uLfJjzeCuBJWdeQW9YR83YC27qL Bbb9F8oKN6K1RqKOIdfklq oxfpgXT0XPAhCALqmM91Hg6yfLr xDo8iYILdQAW0ZHFehTSmL9WhkN 5wZnDkFQFdOFQaA5MzsZBh SUzkR195DXkaMbW9VUVpsbQnO0K pLWAnpYwkQhZ5q7K1Zy8EY4B6GZ 36DD21kIZhk4G2fTF7C9Bi VXQrfouqimbszUD4ROSuGOXkhD7 4Wv1mtXoaDo9cVRHeMKI7MREpjF IlN2McbW7nDvGpBJLnSOXr Z5RdmDQjXZckJ303CUoeEfZ4FMK vlcAyS4XmXBYttGauNbQ4x8U7Ou 5ZPQl3RI21QJ86xZCeh9W9 gZM7P5CrJJFamjmidlkdiAG7IEJ aPPGmlT94Li1oiOvjFn5iZTKeYH J3OIHkdIOcU6AjuK7yHoBr BVZhUEIgE3AxcJFbZOwdJ857MEx kSvD2HWQuveIcP3ZbULWdhIwyRp O1d9G2Iw0ZSTOyDF18BKN0 dDF2MX17KY87I6IoFzpqpHBovMA +PHRhYmxlIHdpZHRoPScxMDAlJy FcfFdnBU8dWd4yFMQoJFHz qEvhmEZbJoXim2urZNXhDOxsIL4 hgDljN2FzcIQ0VDApi5v0Mu76N8 7uR6SnmGP+VDBmoFQ8uVB0 oD9jFpEsNuB5ORoeO971ChMyfRL rKhmgv2mro7jfhOo2PcP7MDMwhu JihQcbXVN8r6HvLt23V05t IHdpZHRoPSIxNSUiIHZhbGlnbj0 hgA2tSp8+ZUNpkKA7wKU4mB7oGl BpNmK6AXanL144ZxBzzQGc Fqwar2abw9hcmGj8XpSpBAQthyK hwClwYNT9p7GlHh83C2PmcMcyo5 IoCzd3sv07rUZty5I6zHI1 P2GrIQMbntxglOZcaAkrUR8qWYX towlaVONtuB4uTPGxR4q9LlYzAr D1UHimW2ZnsaE5JVKvzBTm XUjaOUM2W87xz2N6KFHaLGQkSXV 7qEA6nP1slDisbndioSVgmHeewv PqxDjsOHqaYYlwP447WASx qOjfSJFuxF5cDBZgkZDqwOpxPX5 pOLPqgsuxKuqFZpICV3RVDDBMKO 1SZQAUP6IKIMnXHDMSAIHT RTwvdGQ+NBGaHQH3xStaJCzsDDX cfB4uTVNhA2l6GwIpPzS7CRznY4 NcZJJchtqeJp54xJ9fYuEj LyX0SGjwI5SnghE3UMEbvQPyQIr xIPS4K42cm6R3RAJbBXEnEDH1nH O8iQ2lfUvjuffeaXPmnYgo epZymUmaXAmhIOhaC662TTKldCk iUgZeVzW2JhCcRJQ1A3MqQgk4JO PlnUsdRA6tkVBlSQnhUm1r hPxzqIqpDI7cOZAzzjanVDEbfX0 gFGJqlXYcfPnkFZ6mWFYboitma6 11KwGrMMI2RIWlqHIhM7Yx nR7fWfCnBIQmJTYpI5MynAAvDTf pF719LOikSuI3LOXjamXtR2VuMS UgsGnsLxG0b3F1Tj5rMJIS ZWFyczwvdGQ+NNLzFHP8sFowHZy iXJPfsI6nLPHbK2u4AqSyFgH0KN tvR3OvZCSaadwgBq61rJ2c SoKgWdZ6REuyP8UsnrL6YFBstHB sBPcjCSB4I31fb0H5KLIdLSPzWJ T8nBK9yR9owUoebnhazBKl iMnpdpHihJkfSPrjBQzyQ728RDA vcDsnPkZFTUFMRTwvdGQ+PHRkIH I0bXkrGYaxRAXvzD7hIJLt L3g2RrLdGqM0WNivT7QzLPQmnqw rKn60zN5oQdSwIyA2ZBalF0Hksh W6VURtvFGbTArdBYH1O54m q4E8UMRoMQPrALD4oOJ4fH5wjKr nbjogbGVmdDsgdmVydGljYWwtYW osI743ERAopFjsZx2ORI60 UB49H5UkBnvsdNIsnAC+PHRhYmx lIHdpZHRoPScxMDAlJyBzdHlsZT 2iZp7bWHTeBKYqeIvrlNSq NfYhk5knCRYuSUugHK6tuExkT6V jfEV9YZAdq8r6Ou01B82sL1IbdR A+VTRutQL6mWA5mI2yFsQl BbB8LIdyQ528PvLazPNbEemeu4i tc7ueeCx7WvAaYJCstgKfnVnrSN Y2w9BqHf91F80zYYuvVKYs CQWbRUYcXUEdjZhqoz6slS3iWe4 +LJUkaCN5eRT2fO4zOdGkPxE7UP kiX100KpXshGTsGlvaT67g Z2EugPW+HQHgTmy0HKQzfGzbZA3 ruLDhQJjiTx1wMCO4RtHiNmZqJE vzM3XdEFIitzywuumdgDB0 RSOpUJQrvE05Yq5thZjzCy6cWBB uLSJ4QBTmmSOgE7KoyP8kOvKuFU DkFQBwA5PqfORiMHkbN100 ETzfPkF1LAPckiTpY7SdTDQweAz gCxX9p8W8Ij5HgFqnbAOkVY8hYc JpYMa4H7EaVfv0DTAdfSel WM1wwTNaQWijQj4mbOlnhXddZF0 uZDJziuicw273PmIyo4rxECIiqX TnUWoaXEW6H44du8H4XBUj OITiYSN3tXU9tA1jqWyjotkipTQ boUyommGinHvcLYsuZTttT437PO MbiFvaWjVHTpk7M8KmByv7 ZSWduWavTM2inUJgJRmySo4xqDs jdUpyJJ8wZLLqynuav013RpBlp8 zyWALsnAWuVJbyPED4M53s u5F8XHChOZShUSK7wEN7hL4ywEt nbjogbGVmdDsgdmVydGljYWwtYW ivX341WCQzkUduUk5RIpd5 B3ZfZbm5NMOeiEwkSQ1dtEOyPMx kGv1wtElckRxbRU1cFNVdacksq4 61SkLts5anAPYmqUBmKLqp WTE0D01cg7V3RCRcUKKoUNB3iYQ 7qN0pnVvvqlrmrCFivJdesjIfbQ npBXmnUWsoV216MMLnjHfl PlBheWVyOjwvdGQ+ZY09xr11B6U iScbiHtk4JIUmXLG7cKC4bI1xWN GaMHaxi9L8wGZ7A4FcfiEp ci1 (more content not included)... [facility] ED Clinical Summaryon 2022 ED Clinical Summary [facility] ? Urgent Care [address] [place] [address] Clinical Summary PERSON INFORMATION Name: SHEYLA LEA Age: 17 Years Sex: FEMALE : 2005 MRN: Acct#: Visit Reason: Ear pain; BI LAT EAR PAIN, FEVER Arrival: 07/08/2022 10:52:39 Discharge: 07/08/2022 11:26:00 LOS: 000 00:34 Check In: 07/08/2022 10:52:39 Checkout: 07/08/2022 11:26:00 Address: [address] [place], [place] [id number] PCP: KEVIN STOKES PROVIDER INFORMATION Provider Role Assigned Unassigned Arvind Doherty PA-C ED PA 07/08/2022 10:58:02 Levy Bee ED PA 07/08/2022 10:58:39 07/08/2022 10:58:42 Zara Fleming [employer] Nurse 07/08/2022 11:09:15 VITALS INFORMATION Vital Sign Triage Latest Temperature Tympanic Temperature Temporal Artery Pulse Rate O2 Sat 99 % 99 % Respiratory Rate Blood Pressure /60 mmHg /60 mmHg MEDICAL INFORMATION Medications Given: Allergy Information: No Known Medication Allergies PHYSICIAN DOCUMENTATION DISCHARGE INFORMATION: Discharge Disposition: Home Discharge Location: Home PATIENT EDUCATION INFORMATION Instructions: Otitis Media, Adult, Qkuo-un-Kraf Follow-Up: With: Address: When: KEVIN STOKES [address] [place] [address] [phone] Business (1) Within 5 to 7 days DIAGNOSIS: Bilateral otitis media Patient Understands: Yes - Patient/family/caregiver verbalizes understanding of instructions given Comment: [facility] ED Patient Summaryon 023 ED Patient Summary [facility] ? Urgent [facility] [address] [place], [place] [id number] PATIENT DISCHARGE INSTRUCTIONS Patient Information Name: SHEYLA LEA Age: 17 Years Date of : 2005 Reason For Visit: Ear pain; BI LAT EAR PAIN, FEVER Arrival Time: 07/08/2022 10:52:39 Primary Care Physician: [facility] Attending Physician: Levy Bee Comment: Patient Education With: Address: When: [facility] [place] [address] Business (1) Within 5 to 7 days Otitis Media, Adult Otitis media is a condition in which the middle ear is red and swollen (inflamed) and full of fluid. The middle ear is the part of the ear that contains bones for hearing as well as air that helps send sounds to the brain. The condition usually goes away on its own. What are the causes? This condition is caused by a blockage in the eustachian tube. This tube connects the middle ear to the back of the nose. It normally allows air into the middle ear. The blockage is caused by fluid or swelling. Problems that can cause blockage include: ? A cold or infection that affects the nose, mouth, or throat. ? Allergies. ? An irritant, such as tobacco smoke. ? Adenoids that have become large. The adenoids are soft tissue located in the back of the throat, behind the nose and the roof of the mouth. ? Growth or swelling in the upper part of the throat, just behind the nose (nasopharynx). ? Damage to the ear caused by a change in pressure. This is called barotrauma. What increases the risk? You are more likely to develop this condition if you: ? Smoke or are exposed to tobacco smoke. ? Have an opening in the roof of your mouth (cleft palate). ? Have acid reflux. ? Have problems in your body's defense system (immune system). What are the signs or symptoms? Symptoms of this condition include: ? Ear pain. ? Fever. ? Problems with hearing. ? Being tired. ? Fluid leaking from the ear. ? Ringing in the ear. How is this treated? This condition can go away on its own within 3?5 days. But if the condition is caused by germs (bacteria) and does not go away on its own, or if it keeps coming back, your doctor may: ? Give you antibiotic medicines. ? Give you medicines for pain. Follow these instructions at home: ? Take ejhm-sjy-rlcauoz and prescription medicines only as told by your doctor. ? If you were prescribed an antibiotic medicine, take it as told by your doctor. Do not stop taking it even if you start to feel better. ? Keep all follow-up visits. Contact a doctor if: ? You have bleeding from your nose. ? There is a lump on your neck. ? You are not feeling better in 5 days. ? You feel worse instead of better. Get help right away if: ? You have pain that is not helped with medicine. ? You have swelling, redness, or pain around your ear. ? You get a stiff neck. ? You cannot move part of your face (paralysis). ? You notice that the bone behind your ear hurts when you touch it. ? You get a very bad headache. Summary ? Otitis media means that the middle ear is red, swollen, and full of fluid. ? This condition usually goes away on its own. ? If the problem does not go away, treatment may be needed. You may be given medicines to treat the infection or to treat your pain. ? If you were prescribed an antibiotic medicine, take it as told by your doctor. Do not stop taking it even if you start to feel better. ? Keep all follow-up visits. This information is not intended to replace advice given to you by your health care provider. Make sure you discuss any questions you have with your health care provider. Document Revised: 08/11/2021 Document Reviewed: 08/11/2021 [employer] Patient Education ? 2021 [employer] Medication Information: The exam and treatment you received today in the [facility] Emergency Department were for an urgent problem and are not intended as complete care. It is important for you to follow up with a doctor, nurse practitioner, or physician?s anesthesia assistant for ongoing care. If your symptoms become worse or you do not improve as expected and you are unable to reach your usual health care provider, you should return to the Emergency Department, we are available 24 hours a day. For those patients who have received Radiology results, the interpretation of your X-ray as given to you by our Emergency Department physician is only a preliminary report. The Radiologist will review your films and if there is a change in the diagnosis you will be notified by phone. Please make sure you have provided a working phone number so we can reach you if necessary. In the event that you had a lab culture while you were a patient in the Emergency Department, you will be notified by phone if there is a need to change your antibiotic. Please make sure you have provided (more content not included)... Normal [facility] Urgent Care Note- Provideron 07-08-2022 Urgent Care Note- Provider Patient: SHEYLA LEA Age: 17 years Sex: FEMALE : 2005 Associated Diagnoses: Bilateral otitis media Author: Arvind Doherty PA-C Basic Information Additional information: Chief Complaint from Nursing Triage Note : Chief Complaint 07/08/2022 11:04 EST Chief Complaint bilateral ear pain 2 days. fever yesterday. no drainage pain 10/24 . History of Present Illness This is an 17 year old here today with concerns of bilateral ear pain worsening x 2 days. No fevers, chills or malaise. No headache, neck pain or stiffness. Both ears hurt, there is nasal congestion but no sore throat. No chest pains or SOB. No cough. No skin rashes or lesions. There are no other associated symptoms. Nothing makes the symptoms better or worse. Symptoms are described as gradual onset, moderate in nature and persisting. She states she has a history of PE tubes and ear infections, but none in the past couple of years. This reminds her of that, however. Health Status Allergies: Allergic Reactions (Selected) No Known Medication Allergies. Medications: (Selected) Documented Medications Documented Nexplanon 68 mg subcutaneous implant: 68 mg = 1 EA, SubQ. Past Medical/ Family/ Social History Medical history: No active or resolved past medical history items have been selected or recorded.. Surgical history: Myringotomy ([id number]). History of tonsillectomy ([id number]).. Family history: No family history items have been selected or recorded.. Social history: Social & Psychosocial Habits Alcohol 07/08/2022 Alcohol Use: Never Employment/School 01/19/2022 Status: Student Substance Abuse 07/08/2022 Substance use: Never Tobacco 07/08/2022 Smoking tobacco use: Never tobacco user Electronic Cigarette/Vaping 07/08/2022 Electronic Cigarette Use: Never . Problem list: No qualifying data available . Physical Examination Vital Signs Vital Signs 07/08/2022 11:04 EST Temperature Tympanic 36.5 DegC LOW Peripheral Pulse Rate 77 bpm Respiratory Rate 16 br/min Systolic Blood Pressure 104 mmHg Diastolic Blood Pressure 60 mmHg SpO2 99 % Oxygen Therapy Room air BP Method Manual . Measurements 07/08/2022 11:04 EST Height 160.02 cm Weight 95.44 kg Body Mass Index Measured 37.27 kg/m2 BSA Measured 2.06 m2 . GENERAL: Awake, alert and oriented to person, place and situation. Well nourished, well developed, non toxic, NAD. EYES: Pupils equal, round and react to light. EOMI. ENMT: Ears: TM's with erythema and effusion bilaterally, bulging, external canals with normal inspection bilaterally. Nose: clear rhinorrhea. Erythematous turbinates. Mouth: oral mucosa is pink and still moist. Throat: normal inspection. NECK: Normal range of motion, no meningismus, trachea is midline. No anterior or posterior lymphadenopathy. CARDIOVASCULAR: Regular rate and rhythm. +S1 +S2. No murmurs or rubs. RESPIRATORY: Clear to auscultation bilaterally without rales, rhonchi or wheeze. SKIN: Normal inspection, no visualized rash. Medical Decision Making Rx Augmentin for bilateral OM. Tylenol/Motrin as needed, OTC sinus pill as needed. Push fluids. School/work note provided. Return with new, or worsening symptoms, or symptoms failing to improve as expected and the patient voiced their understanding. Questions answered. Follow-up with their family doctor as directed, return here sooner as needed. Impression and Plan Diagnosis Bilateral otitis media (NGH59-PH H66.93, Discharge, Medical) Plan Condition: Stable. Disposition: Discharged: Time 07/08/2022 11:20:00, to home. Prescriptions: Launch prescriptions Pharmacy: amoxicillin-clavulanate 875 mg-125 mg oral tablet (Prescribe): 1 tab(s), PO, q12hr, for 10 day(s), 20 tab(s), 0 Refill(s). Patient was given the following educational materials: Otitis Media, Adult, Adan-uv-Zqkx, Otitis Media, Adult, Bqvr-lk-Eohp. Follow up with: KEVIN STOKES Within 5 to 7 days. Counseled: Patient, Regarding diagnosis, Regarding treatment plan, Regarding prescription, Patient indicated understanding of instructions. Orders: Launch Orders Miscellaneous Request: Excuse from Work/School (Order): 07/08/2022 11:21 EST, No work or school today.. [Electronically Signed on: 07/08/2022 11:28 EST] Arvind Doherty PA-C [Verified on: 07/08/2022 11:28 EST] Arvind Doherty PA-C [facility] [place] 023 Urgent Care Record [facility] ? Urgent Care [address] [place] [address] PATIENT DISCHARGE INSTRUCTIONS Patient Information Name: SHEYLA LEA Age: 17 Years Date of : 2005 Reason For Visit: Ear pain; BI LAT EAR PAIN, FEVER Arrival Time: 07/08/2022 10:52:39 Primary Care Physician: KEVIN STOKES Attending Physician: Levy Bee Comment: Visit Diagnosis: Diagnoses This Visit Bilateral otitis media (H66.93) Ear pain ([id number]) If you received any narcotics, sedation, or any other medication that causes drowsiness for the next 24 hours, unless otherwise directed: ? Do not drive a car. ? Do not operate machinery such as power tools, lawn mowers, drills, sewing machines, or stoves ? Avoid alcoholic beverages and drugs for allergies, nerves, or sleep ? Do not make important personal or business decisions or sign any legal documents With: Address: When: KEVIN STOKES [address] [place] [address] Business (1) Within 5 to 7 days Medication Information: The exam and treatment you received today in the [facility] Urgent Care were for an urgent problem and are not intended as complete care. It is important for you to follow up with a doctor, nurse practitioner, or physician?s anesthesia assistant for ongoing care. If your symptoms become worse or you do not improve as expected and you are unable to reach your usual health care provider, you should return to the Emergency Department, we are available 24 hours a day. For those patients who have received Radiology results, the interpretation of your X-ray as given to you by our Urgent Care physician is only a preliminary report. The Radiologist will review your films and if there is a change in the diagnosis you will be notified by phone. Please make sure you have provided a working phone number so we can reach you if necessary. In the event that you had a lab culture while you were a patient in the Urgent Care, you will be notified by phone if there is a need to change your antibiotic. Please make sure you have provided a working phone number so we can reach you if necessary. [facility] has provided you with a complete list of medications post discharge. Please inform your impregnator carbon products/provider of your visit and for further instruction on these medications. Any specific questions regarding your chronic medications and dosages should be discussed with your primary care physician(s) and/or pharmacist. New Medications [id number], [address], [place] [id number], [phone] amoxicillin-clavulanate (amoxicillin-clavulanate 875 mg-125 mg oral tablet) 1 tab(s) Oral Every 12 hours scheduled time for 10 Days. Refills: 0. Additional medications on your home medication list not specifically addressed. Please contact the ordering physician if you have questions about these medications. etonogestrel (Nexplanon 68 mg subcutaneous implant) 1 Each Subcutaneous. Visit Information Allergies: Substance Reaction Symptoms Type Comments No Known Medication Allergies Drug Vital Signs: Vitals and Measurements this Visit (last charted value for your 07/08/2022 visit) Vital Signs This Visit Temperature Tympanic: 36.5 DegC Peripheral Pulse Rate: 77 bpm Respiratory Rate: 16 br/min Systolic Blood Pressure: 104 mmHg Diastolic Blood Pressure: 60 mmHg SpO2: 99 % Oxygen Therapy: Room air Blood Pressure Method: Manual Measurements This Visit Height/Length Measured: 160.02 cm Weight Measured: 95.44 kg Body Mass Index: 37.27 kg/m2 BSA Measured: 2.06 m2 Problems List: Problem Onset Comments No Problems found Patient Education Otitis Media, Adult Otitis media is a condition in which the middle ear is red and swollen (inflamed) and full of fluid. The middle ear is the part of the ear that contains bones for hearing as well as air that helps send sounds to the brain. The condition usually goes away on its own. What are the causes? This condition is caused by a blockage in the eustachian tube. This tube connects the middle ear to the back of the nose. It normally allows air into the middle ear. The blockage is caused by fluid or swelling. Problems that can cause blockage include: ? A cold or infection that affects the nose, mouth, or throat. ? Allergies. ? An irritant, such as tobacco smoke. ? Adenoids that have become large. The adenoids are soft tissue located in the back of the throat, behind the nose and the roof of the mouth. ? Growth or swelling in the upper part of the throat, just behind the nose (nasopharynx). ? Damage to the ear caused by a change in pressure. This is called barotrauma. What increases the risk? You are more likely to develop this condition if you: ? Smoke or are exposed to tobacco smoke. ? Have an opening in the (more content not included)... Normal [facility] US NECK (POC) HNI USE ONLYon 05-28-2022 [facility] US THYROID/PARATHYROIDon US THYROID/PARATHYRO ID * * *Final Report* * * DATE OF EXAM: Apr 19 2022 8:15AM [facility] 1048 - US THYROID/PARATHYROID / PROCEDURE REASON: multiple diagnoses * * * * Physician Interpretation * * * * EXAMINATION: THYROID ULTRASOUND HISTORY: Abnormal thyroid blood tests. History of thyroid nodule. TECHNIQUE: Sonography and Doppler imaging of the thyroid was performed. Images were obtained and stored in a permanent archive. COMPARISON: None. RESULT: RIGHT LOBE: 6 x 1.9 x 1.7 cm; heterogeneous echogenicity, expected vascular flow LEFT LOBE: 5.2 x 2.1 x 1.6 cm; heterogeneous echogenicity, expected vascular flow ISTHMUS: 0.5 cm Nodules: The most suspicious thyroid nodules (up to 4) are detailed below: NODULE 1 Location: Left mid Size: 0.8 x 0.7 x 0.4 cm Characteristics: Composition: Solid or almost completely solid, 2 points Echogenicity: Hypoechoic, 2 points Shape: Ydbhj-yqoj-ujgs, 0 points Margin: Lobulated or irregular, 2 points Echogenic foci (Add points for all that apply): Punctate echogenic foci, 3 points Internal vascularity: absent Interval growth: No prior available for comparison Total points / TI-RADS Category: TI-RADS 5 ACR Recommendation: TI-RADS 5 Nodule, follow up imaging is advised annualy for 5 years. IMPRESSION: THYROID NODULES PRESENT. ACR TI-RADS LEVEL AND RECOMMENDATIONS DETAILED IN BODY OF REPORT. ENLARGED AND MILDLY HETEROGENEOUS THYROID GLAND, WHICH MAY REPRESENT UNDERLYING DIFFUSE THYROID DISEASE. Product Marketing Specialist: NIKO Transcribe Date/Time: Apr 19 2022 8:34A Dictated by : UMU WHITAKER MD This examination was interpreted and the report reviewed and electronically signed by: UMU WHITAKER MD on Apr 19 2022 8:40AM EST [id number] Normal [facility] Cholesterol in LDL Direct as say [Mass/Vol]on 04-15-2022 Cholesterol in LDL [Mass/Vol] 95 mg/dL Normal <110 [facility] Comment on above: Order Comment: Speci men Type: BLOOD SPECIMEN Ordering Facility: [facility] Address: [address] [place] [id number] Result Comment: <110 mg/dL, Acceptable 110-129 mg/dL, Borderline high >129 mg/dL, High Performed By: #### H DL1, 66851-8, 3016-3 #### [facility] CLIA [id number] [facility] [place] [address] [place] Cholesterol in LDL [Mass/Vol] 95 mg/dL <110 mg/dL [facility] HDL CHOLESTEROL BLDon 2021 Cholesterol in HDL [Mass/Vol] 42 mg/dL Low >45 [facility] Comment on above: Order Comment: Harriet abernathy Type: BLOOD SPECIMEN Ordering Facility: [facility] Address: [address] [place] [address] Result Comment: >45 mg/dL, Acceptable 40-45 mg/dL, Borderline <40 mg/dL, Low Reference: 1. Expert Panel on Integrated Guidelines for Cardiovascular Health and Risk Reduction in Children and Adolescents: National Heart, Lung and Blood [place]. Pediatrics. 2011: 128(Suppl 5):Z305-686. Performed By: #### H DL1, 49939-5, 3016-3 #### [facility] CLIA [id number] [facility]. [address] [place] Cholesterol in HDL [Mass/Vol] 42 mg/dL Low >45 mg/dL [facility] HbA1c (Bld)on 04-15-2022 Average glucose Estimated from glycated hemoglobin (d) [Mass/Vol] 94 mg/dL [facility] HbA1c (d) [Mass fraction] 4.9 % 4.3 - 5.6 % [facility] Average glucose Estimated from glycated hemoglobin (d) [Mass/Vol] 94 mg/dL Normal [facility] Comment on above: Order Comment: Harriet abernathy Type: BLOOD SPECIMEN Ordering Facility: [facility] Address: [address] [place] [address] Result Comment: eAG: (Estimated average glucose) is a calculated value from HgbA1c and is apparel trimmings sales representative of the average blood glucose level in the last 2-3 month period. Performed By: #### 5 5454-3 #### [facility] CLIA [id number] [address] [facility] [id number], [place] [id number] [place] [address] OF [facility] HbA1c (Bld) [Mass fraction] 4.9 % Normal 4.3-5.6 [facility] Comment on above: Order Comment: Harriet abernathy Type: BLOOD SPECIMEN Ordering Facility: [facility] Address: [address] [place] [address] Result Comment: Amer ican Diabetes Association guidelines indicate that patients with HgbA1c in the range 5.7-6.4% are at increased risk for development of diabetes, and intervention by lifestyle modification may be beneficial. HgbA1c greater or equal to 6.5% is considered diagnostic of diabetes. Performed By: #### 5 5454-3 #### [facility] CLIA [id number] [address] [place] [address] [place] T4 FREE/FREE THYROXon 2021 Free T4 [Mass/Vol] 1.1 ng/dL 0.8 - 1.5 ng/dL [facility] T4 Free SerPl-mCncon 022 Free T4 [Mass/Vol] 1.1 ng/dL Normal 0.8-1.5 [facility] Comment on above: Order Comment: Harriet abernathy Type: BLOOD SPECIMEN Ordering Facility: [facility] Address: [address] [place] [address] Performed By: #### 3 024-7 #### [facility] CLIA [id number] [facility] [address] [place] TSH BLDon 04-15-2022 TSH Qn 1.950 m[IU]/L 0.510 - 4.300 mIU/L [facility] TSH SerPl-aCncon 04-15-2022 TSH Qn 1.950 m[IU]/L Normal 0.510-4.300 [facility] Comment on above: Order Comment: Harriet abernathy Type: BLOOD SPECIMEN Ordering Facility: [facility] Address: [address] [place] [address] Result Comment: If t he patient is , TSH reference range varies by gestational period: First Trimester (weeks 9-12): 0.180-2.990 mIU/L Second Trimester: 0.110-3.980 mIU/L Third Trimester: 0.480-4.710 mIU/L Jose Fisher et al. A Practical Approach for the Verifications and Determination of Site- and Trimester-Specific Reference Intervals for Thyroid Function tests in . Thyroid, 2019:29:3:412-420. Loc E, et al. 2017 Guidelines of the [place] Thyroid Association for the Diagnosis and Management of Thyroid Disease during and the . Thyroid, 2017:27:3:315-389. Reference ranges were not locally established for this patient's age group. The normal values are based on the following source: Tim Ontiveros V. Reference Ranges for Adults and Children: Pre-analytical Considerations. [facility] Performed By: #### H DL1, 64552-3, 3016-3 #### [facility] CLIA [id number] [address] [facility]. [address] OF [facility] Coding Summaryon 02-24-2022 Coding Summary [employer] 64 SsrifrmzHOh0yWb+PGhlYWQ+PE1 DWCLgD90yzDRwmZ3RT0yCFU8HTC WLJWBVAG8LBZ6ofSI5YBjuG0Fsr iAv ZdlbjDNlXJ64LWg9TBN1oQxvFAx jxG3jaGZxZ2g0VaAgTQ38uF66TQ gnBPWpLmS2AmEwelkdoPCo L0prSrFwmJXdUta+PHRhYmxlIHd fSCYpAXcgSQVmPrWtpIqzJL4kGa 9yZGVyLWNvbGxhcHNlOiBj e3amIWAqLDdgUN2dqRakU3YlzPN 4MLEcp3e7Em00aUO+FYQeWAY0rP qpNRvse540DwXao3veSAA6 dXHhDGbmJGU2M23fl1B8MYZyIXJ mNUF2sIT8qO7giNuswzbkX3KgeX AyWiD8AST6wNFxfQ4dwKss fyhqkC0eTck+C83JKC8AOWKHXB0 HBxd0G2PdGdtiaCQ+RT48FPPyTQ 09mEQqjARsw9rbiIl9SiFu IELhMPC0gLabJMdkt7IkYIMjQ41 ysPHgv0Q4JXSyoLdcfRPuMeIuiG X3jP8qOFaerttxq8nadswk Towhn9zbjp33gD04D91jRAvtLRV dCYJ7IWZhANVrqVsjfl3dtT7mDx 8+VAxml0han5dmgBs0RcRo IEVroxUilWfjFDE4b8HfMq33D5Z fsHult5TrEkc5th23kFQvb5W9kV F5ZFejJKLdrR4uOLqrBgY9 AZDmBhYuzS14eVLqKLjzIj3tzXd zsYmmPE8nUJBvolnrOBIbyP0zIO CggQOevYevCP3cOOJueryl b390GvHjGKJ4SOKyzFMfI2SdfF0 oXgOlOPWbUZRkO4IjlCOrIVpmI6 14VCnhRlV5YNXynjTcV2Jg QACrgGxrXtO0z8F3Kc7Nw6Vdurd mONA0HDsfSWQgTyHnFlDtDhK3M1 LkMqq0YWWsnLlnYV9xL4Cl PIWoourbmrpjsZI6GYQuWAKdhK4 0aAGyIBztYu0yr1N6c757QWVuDB XamX05Gs7jcOuqFTKouMRU uK5vyrwtm3krfleeDyMxPEKnLDc 7UGj3RHMxkZijVuFxNEP1SrK6WA C4fSZpdK2zcXcqzzhgxM9v Oyc+V29gwS7lGMM8EUJ4jsidYWK xdcEvLU16DX13R4GaJvhxhHPqlR U+ILRwreHiaNwhMA8hTsBa b1vck3QsLJckE7RfPYLwVAqyQta 4EHHlMSM2wZT3dF2pNWIrHLqyn3 Y2tLN1E1XdqbMsmp4jv3ip JYQpXYlkX01mlTEib2H4MXOhnID 2FOLnuQxjAeAyiP32Jds+PGNvbG zgw1IdObmqx9wjj3ihzRm0 ApVtVUSsofSniJxiTFG1t2OhAg7 2B94vPPwcYOFnNHDcGPGkMMTheM arhb9ebV0vNo8+PGNvbCB3 uQR6bL3aJCEmTgJ0QCzrQ724IuT gdYXiHycdp2ewy1ullJf7StMhEI TnblRorGolGEI4z5PiDv61 U21xNEqvXTYjACEvXKJhMVArjNv fmo2wvQ1sMc7+GH1yg6zsbv46tS 48dHI+LMBhITJ3xVxvKOsf CZScuM6tVMfxHmZ2YZBtZvDzhT0 2tPBcZGtaPk9qzIkpbArkJQ4mKQ Cghhyfq430BiQvz6teQTHw iEEvSOgpQBJ7N39sl9P6XBNaSFB uBZK4oUW8iV8taZladxfueRRvrQ plluZsfVjoLOtdVNezG637 IHRvcDsnPlBhdGllbnQgTmFtZTo 8Z6UfLoy6BSXlrDeoMX1gwXCxIB xxEf9trYwusShdVA6sATJe loqei841WuRar7pxWRDrlHXzJXw xVUM2V64om1T0LSOsXUNuUSX9uP D5xO1fhHaiihxfqHCfyLyd fbCvyEjaYHnyXIioP429FLKppLm iQvUyvnJrLMOkuQT9NF84NT88bE Agq9E9fUO1R5KzGMEqycoz euwtiXY2BASuHPLodP48Lx0utMj gJt7sFRVsJXP2TYHxgEQlD2BtqN 7nRfUvCEPqNTRgR2JqeUFn JEgyL907TBdiQiM5LVImwwHuE7D gGLAczTwyGoD9u6V7Po1FV9V6AE 98IS41tTNzt2K4iJZ4N1Qy DZIaajruyliwmMP5HAJcKAYxgW3 1Gj8imSvhGa4hVPAjDMT5VKXwjU TmD7PzfG0fEeOlCUBaNCAe Q3MlwJXsGLsyV224MEzmKmB5JVV vtsNwW8UfLUSnyFizCpB8h4N4Aq 0JDLj6NE29EJ36jJJbd3X9 dLZ3G4DaUEGbluexqvgrdQN7LDA lJMIpwO05Lf0gjZspJw0tHJZvUO I5RLPfpVSxU2NjgD3rVcGw SLPmKJBzQ8DtyWIzKYssI915JKx tQkM9SRZoqtKvF4IjGRHrhHmdFt G8s7G8Zw3GESOgMW68MVF9 cYW8MY07HP14Q1DpPezjlMMwdRF +PHRhYmxlIHdpZHRoPScxMDAlJy YlxGyoNQ7rYj0mLTEfDQAp eCnyjKGeAnLss5xsASXaXXnsCL4 ggUcvJ0RfsRN2GWFku7r3Ol42T2 7wD3MuiXH+UBGsyHI0eUF5 fB1yFiArXvY2NUnjX556MgIydDV cRkgac3ghf9cysPr3YqY1FMWvkc WbzDbmDUC2u3OqAx49I80s IHdpZHRoPSIxNSUiIHZhbGlnbj0 euA9zYr8+NWDhsCQ3pAE5zZ7qCu WpNhM2AUlwJ025IaDokTDb Ydina9ufq8orkXz5TmEvYBZggnI thXipHCO5w1XvUs50N9UcvVdmi5 ZcQqq0ni72gTQui9O2rAS5 O3WoCMPtjeyucHPmwNdkLX5qXGD xtbwvDPKraC3lPIJlV9x0RoCoTr V0WZieV7VmqaG6CYHphGVa OLnlNNF0D77ae6H3ZOWeOJCvPGI 8eRF1gP6imEvubceuiCEetFjssg OiiTfbZCufEDftP845WBLr sMabLGOgaW6vMRRutWQvvUgiPA5 rIKXdtqsbAybCNqYUK7JDQSSFGY 4NQYJDO3ZCFMsXLCITNDSR RTwvdGQ+HBPaVGJ2lPhqNMjcEME riA7rHHAlY2y9UiQvCpD4IZwtQ9 QcJGHrbhihLf12lX6zKjDi VqZ8TMxrX0VpopS8LZDwhLZsGMf vTIC1O80xf6Y7GNHfDRLhEAZ1mH G8xK2wcTrpdkjrcDFscSqn gkZxcNpbNLmuIOgdN018YOYeyDs qLiHiKjT1HwQhSNW3B3VtQne7DH FtyIllOW4kaZEpAVltAq8u yYxfuTywAL8nXABfodfxMTImvN4 gIWMckZOagAtiKS6fKWYnnthtx3 15UhSiKPA4JUPbhXFxF6Mr aJ5mYaTmVPKgJCIuA5XmuCIvCWm fO552CVapWjR7HAAfxjSkL3SqVA AyjUogPpY5x7A2Ft4aIfYW ZWFyczwvdGQ+WHTnKYD1lNfnQQj gJNGibS7iMNRtT5r0GkAyKlS5GA nmN2JoIRUoswijNg64yF7k TrEfGuB1VPbnE1OdnnW8MLUudSH bSNkpBRP6F52fb7T8KFKwQQMvTY F9jXI0lJ7euPfkyvvkgIKb hFzwwsEdePgaWAxoUQunA954WAQ vcDsnPkZFTUFMRTwvdGQ+PHRkIH O7lNujZMhgBZGyoP6dEONk N4p0JiXsChF6HQywK0AkFTVgmce jGa87sG1zGzBsMjN4YCklB7Hkip S9TULviQReHIgxECB9M48l m4M5XXMhXMMoQRK4gSI6iZ1nnWy nbjogbGVmdDsgdmVydGljYWwtYW gcA307DOWbxVpnHs0KIO07 XG29I0EkNavwhPDtnYC+PHRhYmx lIHdpZHRoPScxMDAlJyBzdHlsZT 1lCi7iPSGmHEQmwUjcvYCt KdVho4kiHZLpJGybBS1acRwtR6M xgMN6AGRek8o9Xw60N19vG9LgbX A+SCNkcBE1mRF0hR4gXwNk UvA8OThzL319AzGetASrOyuhc7s cp2yzpCj6NyJpRGMdtfEloFtnDE J3e0FhYq52Q80lEDxfTTYg CVYfTNIjAGLfoEjguc7jnP0hKg3 +VIOkqDV7jQS1jT8eYrCpNiQ4XL wsG676XyGzsYQgWbqmP98i F9MzuGO+GVZpSed3FXVxePmaYC1 etFNhLLxaRs3pTZC2CbGfToRcHR yuP2BqHNCujxqdatqkqUT4 LCMhXXEsaL87Df8qmOlqVa4iHHS rUDL1FYDfkVKzQ4YsgD4aGtJlKK QzGJDvK5HrtMLmSWmbU066 KSosGgS0GKKkykYoZ7UmBVDynWk vNbQ3o2R7Fb6UlMujsVZeQG2sPm EsUVo9S0SfWjb1JYNriLtd EA2bjCUwIBouYq7hiHmgwFvtLA1 rDDHdltuid338KrUvw0flGQNicC HqFQkhFJC9B19hy7Q1MTJb FYCgHEJ6wYY7iJ1opZvhyoloeFS ngUbwelSixBljEFuqXKmlC740YO WmmKgdMpZBVcr2A0StRhf3 KUPdzRqrGK2vqFMkJFojCv6oeXp mqZoaZT3vAKJphbmri662OgImq0 gwQCFqsUBiIXtkQZE3M29d s6V5TBJoRKJgKHR0aUA9pJ1oxTm nbjogbGVmdDsgdmVydGljYWwtYW opC011GCXtfGxqDo8YHvx0 P6XjCks2EYNsgDueUI8deYJmVVj aYl9ysXxrxMrzCI9gYRLnzmvvo3 44WjCli5dnNNGxyKXaYYjg KFU4U85ig1A9LYEeGNTkHTH0mVM 3lU8amUdyzzcrhHFlcGdxjeNdrO pfCXbsGIxlB086HUBmuItp PlBheWVyOjwvdGQ+YX51uw93Q6R rVgnaUcn3MYGqUZT2uPZ4gX1yOX CwBHkcb4F8cTO1Q7HnmzJm ci1 (more content not included)... Normal [facility] ED Clinical Summaryon 2021 ED Clinical Summary [facility] ? Urgent Care [address] [place] [address] Clinical Summary PERSON INFORMATION Name: SHEYLA LEA Age: 16 Years Sex: FEMALE : 2005 MRN: Acct#: Visit Reason: UC - Ankle/Foot/Toe Pain or Swelling; UC - Foot/Toe Injury; RT FOOT PAIN Arrival: 02/19/2022 19:02:05 Discharge: 02/19/2022 20:18:00 LOS: 000 01:16 Check In: 02/19/2022 19:02:05 Checkout: 02/19/2022 20:18:00 Address: [address] [place] [address] PCP: KEVIN STOKES PROVIDER INFORMATION Provider Role Assigned Unassigned Ellen Mac [employer] ARCHITECT Nurse 02/19/2022 19:06:02 Levy Bee ED PA 02/19/2022 19:16:21 VITALS INFORMATION Vital Sign Triage Latest Temperature Tympanic Temperature Temporal Artery Pulse Rate O2 Sat 98 % 98 % Respiratory Rate Blood Pressure /66 mmHg /66 mmHg MEDICAL INFORMATION Medications Given: Allergy Information: No Known Medication Allergies PHYSICIAN DOCUMENTATION DISCHARGE INFORMATION: Discharge Disposition: Home Discharge Location: Home PATIENT EDUCATION INFORMATION Instructions: Foot Pain; Ankle Pain Follow-Up: With: Address: When: KEVIN STOKES [address] [place] [address] [phone] Business (1) Comments: Radiologist interpretation of the x-rays negative for fracture or dislocation No weightbearing for the next 2 days, can then slowly begin to introduce weightbearing as tolerated. Wear the Evon wrap while active, remove when sleeping, napping or showering Loosen or remove the evon wrap with any numbness or tingling, or blue discoloration If the pain continues recommended to follow-up with your central melt specialist or can follow-up with our local central melt specialist Dr. Ramírez's office is located at [address] [place] [address] Continue on the acronym R.I.C.E. Rest, Ice Compression, Elevation this will help with pain Can ice for 15-20 minutes every 3 hours Can take 600mg of motrin/ibuprofen every 6-8 hours DIAGNOSIS: Ankle pain; Foot pain Patient Understands: Yes - Patient/family/caregiver verbalizes understanding of instructions given Comment: Normal [facility] ED Patient Summaryon 022 ED Patient Summary [facility] ? Urgent Care [address] [place], [place] [id number] PATIENT DISCHARGE INSTRUCTIONS Patient Information Name: SHEYLA LEA Age: 16 Years Date of : 2005 Reason For Visit: UC - Ankle/Foot/Toe Pain or Swelling; UC - Foot/Toe Injury; RT FOOT PAIN Arrival Time: 02/19/2022 19:02:05 Primary Care Physician: KEVIN STOKES Attending Physician: Levy Bee Comment: Patient Education With: Address: When: KEVIN STOKES [address] [place] [address] [phone] Business (1) Comments: Radiologist interpretation of the x-rays negative for fracture or dislocation No weightbearing for the next 2 days, can then slowly begin to introduce weightbearing as tolerated. Wear the Evon wrap while active, remove when sleeping, napping or showering Loosen or remove the evon wrap with any numbness or tingling, or blue discoloration If the pain continues recommended to follow-up with your central melt specialist or can follow-up with our local central melt specialist Dr. Ramírez's office is located at [address] [place] [address] Continue on the acronym R.I.C.E. Rest, Ice Compression, Elevation this will help with pain Can ice for 15-20 minutes every 3 hours Can take 600mg of motrin/ibuprofen every 6-8 hours Foot Pain Many things can cause foot pain. Some common causes are: ? An injury. ? A sprain. ? Arthritis. ? Blisters. ? Bunions. Follow these instructions at home: Managing pain, stiffness, and swelling If directed, put ice on the painful area: ? Put ice in a plastic bag. ? Place a towel between your skin and the bag. ? Leave the ice on for 20 minutes, 2?3 times a day. Activity ? Do not stand or walk for long periods. ? Return to your normal activities as told by your health care provider. Ask your health care provider what activities are safe for you. ? Do stretches to relieve foot pain and stiffness as told by your health care provider. ? Do not lift anything that is heavier than 10 lb (4.5 kg), or the limit that you are told, until your health care provider says that it is safe. Lifting a lot of weight can put added pressure on your feet. Lifestyle ? Wear comfortable, supportive shoes that fit you well. Do not wear high heels. ? Keep your feet clean and dry. General instructions ? Take [id number]-gpocliz and prescription medicines only as told by your health care provider. ? Rub your foot gently. ? Pay attention to any changes in your symptoms. ? Keep all follow-up visits as told by your health care provider. This is important. Contact a health care provider if: ? Your pain does not get better after a few days of self-care. ? Your pain gets worse. ? You cannot stand on your foot. Get help right away if: ? Your foot is numb or tingling. ? Your foot or toes are swollen. ? Your foot or toes turn white or blue. ? You have warmth and redness along your foot. Summary ? Common causes of foot pain are injury, sprain, arthritis, blisters, or bunions. ? Ice, medicines, and comfortable shoes may help foot pain. ? Contact your health care provider if your pain does not get better after a few days of self-care. This information is not intended to replace advice given to you by your health care provider. Make sure you discuss any questions you have with your health care provider. Document Revised: 08/06/2021 Document Reviewed: 08/06/2021 [employer] Patient Education ? 2021 [employer] Ankle Pain The ankle joint holds your body weight and allows you to move around. Ankle pain can occur on either side or the back of one ankle or both ankles. Ankle pain may be sharp and burning or dull and aching. There may be tenderness, stiffness, redness, or warmth around the ankle. Many things can cause ankle pain, including an injury to the area and overuse of the ankle. Follow these instructions at home: Activity ? Rest your ankle as told by your health care provider. Avoid any activities that cause ankle pain. ? Do not use the injured limb to support your body weight until your health care provider says that you can. Use crutches as told by your health care provider. ? Do exercises as told by your health care provider. ? Ask your health care provider when it is safe to drive if you have a brace on your ankle. If you have a brace: ? Wear the brace as told by your health care provider. Remove it only as told by your health care provider. ? Loosen the brace if your toes tingle, become numb, or turn cold and blue. ? Keep the brace clean. ? If the brace is not waterproof: ? Do not let it get wet. ? Cover it with a watertight covering when you take a bath or shower. If you were given an elastic bandage: ? Remove it when you take a bath or a shower. ? Try not to move your an (more content not included)... [facility] Urgent Care Note- Provideron 02-19-2022 Urgent Care Note- Provider Patient: SHEYLA LEA Age: 16 years Sex: FEMALE : 2005 Associated Diagnoses: Ankle pain; Foot pain Author: Levy Bee Basic Information Time seen: Date & time 02/19/2022 19:06:00. History source: Patient. History limitation: None. History of Present Illness Patient is a 16-year-old female complaint of right foot and ankle pain. States he jumped during [employer] today and landed awkwardly on her foot and ankle. Pain since then. No other complaints or concerns. Patient with no known medication allergies. Review of Systems Constitutional symptoms: Negative except as documented in HPI. Musculoskeletal symptoms: Negative except as documented in HPI. Additional review of systems information: All other systems reviewed and otherwise negative. Health Status Allergies: Allergic Reactions (Selected) No Known Medication Allergies. Medications: (Selected) Documented Medications Documented Nexplanon 68 mg subcutaneous implant: 68 mg = 1 EA, SubQ. Past Medical/ Family/ Social History Medical history: No active or resolved past medical history items have been selected or recorded.. Surgical history: Myringotomy ([id number]). History of tonsillectomy ([id number]).. Family history: No family history items have been selected or recorded.. Social history: Social & Psychosocial Habits Alcohol 01/19/2022 Alcohol Use: Never Employment/School 01/19/2022 Status: Student Substance Abuse 01/19/2022 Substance use: Never Tobacco 02/18/2021 Smoking tobacco use: Never (less than 100 in l 01/19/2022 Smoking tobacco use: Never tobacco user Electronic Cigarette/Vaping 01/19/2022 Electronic Cigarette Use: Never . Problem list: No qualifying data available . Physical Examination Vital Signs Vital Signs 02/19/2022 19:13 EDT Temperature Temporal 37 DegC Peripheral Pulse Rate 80 bpm Respiratory Rate 16 br/min Systolic Blood Pressure 100 mmHg Diastolic Blood Pressure 66 mmHg SpO2 98 % Oxygen Therapy Room air . Measurements 02/19/2022 19:13 EDT Height 160.02 cm Weight 86.18 kg Body Mass Index 33.66 kg/m2 . General: Alert, no acute distress. Skin: Warm, dry. Head: Normocephalic, atraumatic. Eye: Normal conjunctiva. Cardiovascular: Regular rate and rhythm. Respiratory: Lungs are clear to auscultation, respirations are non-labored, breath sounds are equal, Symmetrical chest wall expansion. Musculoskeletal: Normal ROM, normal strength, Tenderness to palpation of the midfoot and left lateral malleolus. Psychiatric: Cooperative, appropriate mood & affect. Medical Decision Making Differential Diagnosis: Ankle sprain, ankle fracture, foot sprain, foot fracture. Radiology results: X-ray (ST) X-Ray: ? XR Ankle Complete Right ? 02/19/22 19:53:48 X-RAY OF THE right ankle HISTORY: fall today COMPARISON: There are no previous studies available for comparison. TECHNIQUE: 3 views of the right ankle. FINDINGS: BONE DENSITY: Normal. JOINTS: No acute abnormality. FRACTURE: No acute fracture. DISLOCATION: None. SOFT TISSUES: No radiopaque foreign body. IMPRESSION: No acute osseous or joint abnormality. ? Signed By: Tavo Bynum MD ? XR Foot Complete Right ? 02/19/22 20:01:06 X-RAY OF THE right foot HISTORY: fall today COMPARISON: There are no previous studies available for comparison. TECHNIQUE: 3 views of the right foot. FINDINGS: BONE DENSITY: Normal. JOINTS: No acute abnormality. FRACTURE: No acute fracture. DISLOCATION: None. SOFT TISSUES: No radiopaque foreign body. IMPRESSION: No acute osseous or joint abnormality. ? Signed By: Tavo Bynum MD . Radiologist interpretation no acute osseous or joint abnormality. Discussed treatment options with patient and mom will proceed with Evon wrap and crutches. School note provided for tomorrow per mom's request. MSPS intact, capillary refill less than 2 seconds, full flexion and full extension intact pre and post Evon wrap. Impression and Plan Diagnosis Ankle pain ([id number] M25.579, Discharge, Medical) Foot pain ([id number] M79.673, Discharge, Medical) Plan Patient was given the following educational materials: Ankle Pain, Foot Pain, Foot Pain, Ankle Pain, Foot Pain, Ankle Pain. Follow up with: KEVIN LANTIGUA Radiologist interpretation of the x-rays negative for fracture or dislocation If the pain continues recommended to follow-up with your central melt specialist or can follow-up with our local central melt specialist Dr. Ramírez's office is located at [address] [place] [address] [address] [phone] There is no obvious fracture or deformity on review the x-ray today. Official radiological interpretation will be available in the next 24-36 hours you will be notified of any discrepancy in the interpretation. No weightbearing for the next 2 days, can then slowly b (more content not included)... Normal [facility] [place] 022 Urgent Care Record [facility] ? Urgent Care [address] [place], [place] [id number] PATIENT DISCHARGE INSTRUCTIONS Patient Information Name: SHEYLA LEA Age: 16 Years Date of : 2005 Reason For Visit: UC - Ankle/Foot/Toe Pain or Swelling; UC - Foot/Toe Injury; RT FOOT PAIN Arrival Time: 02/19/2022 19:02:05 Primary Care Physician: KEVIN STOKES Attending Physician: Levy Bee Comment: Visit Diagnosis: Diagnoses This Visit Ankle pain (M25.579) Foot pain (M79.673) UC - Ankle/Foot/Toe Pain or Swelling ([id number]) UC - Foot/Toe Injury ([id number]) If you received any narcotics, sedation, or any other medication that causes drowsiness for the next 24 hours, unless otherwise directed: ? Do not drive a car. ? Do not operate machinery such as power tools, lawn mowers, drills, sewing machines, or stoves ? Avoid alcoholic beverages and drugs for allergies, nerves, or sleep ? Do not make important personal or business decisions or sign any legal documents With: Address: When: KEVIN STOKES [address] [place] [address] Business (1) Comments: Radiologist interpretation of the x-rays negative for fracture or dislocation No weightbearing for the next 2 days, can then slowly begin to introduce weightbearing as tolerated. Wear the Evon wrap while active, remove when sleeping, napping or showering Loosen or remove the evon wrap with any numbness or tingling, or blue discoloration If the pain continues recommended to follow-up with your central melt specialist or can follow-up with our local central melt specialist Dr. Ramírez's office is located at [address] [place] [address] Continue on the acronym R.I.C.E. Rest, Ice Compression, Elevation this will help with pain Can ice for 15-20 minutes every 3 hours Can take 600mg of motrin/ibuprofen every 6-8 hours Medication Information: The exam and treatment you received today in the [facility] were for an urgent problem and are not intended as complete care. It is important for you to follow up with a doctor, nurse practitioner, or physician?s anesthesia assistant for ongoing care. If your symptoms become worse or you do not improve as expected and you are unable to reach your usual health care provider, you should return to the Emergency Department, we are available 24 hours a day. For those patients who have received Radiology results, the interpretation of your X-ray as given to you by our Urgent Care physician is only a preliminary report. The Radiologist will review your films and if there is a change in the diagnosis you will be notified by phone. Please make sure you have provided a working phone number so we can reach you if necessary. In the event that you had a lab culture while you were a patient in the Urgent Care, you will be notified by phone if there is a need to change your antibiotic. Please make sure you have provided a working phone number so we can reach you if necessary. [facility] has provided you with a complete list of medications post discharge. Please inform your impregnator carbon products/provider of your visit and for further instruction on these medications. Any specific questions regarding your chronic medications and dosages should be discussed with your primary care physician(s) and/or pharmacist. Additional medications on your home medication list not specifically addressed. Please contact the ordering physician if you have questions about these medications. etonogestrel (Nexplanon 68 mg subcutaneous implant) 1 Each Subcutaneous. Visit Information Allergies: Substance Reaction Symptoms Type Comments No Known Medication Allergies Drug Vital Signs: Vitals and Measurements this Visit (last charted value for your 02/19/2022 visit) Vital Signs This Visit Temperature Temporal: 37 DegC Peripheral Pulse Rate: 80 bpm Respiratory Rate: 16 br/min Systolic Blood Pressure: 100 mmHg Diastolic Blood Pressure: 66 mmHg SpO2: 98 % Oxygen Therapy: Room air Measurements This Visit Height/Length Measured: 160.02 cm Weight Measured: 86.18 kg Body Mass Index: 33.66 kg/m2 Problems List: Problem Onset Comments No Problems found Patient Education Foot Pain Many things can cause foot pain. Some common causes are: ? An injury. ? A sprain. ? Arthritis. ? Blisters. ? Bunions. Follow these instructions at home: Managing pain, stiffness, and swelling If directed, put ice on the painful area: ? Put ice in a plastic bag. ? Place a towel between your skin and the bag. ? Leave the ice on for 20 minutes, 2?3 times a day. Activity ? Do not stand or walk for long periods. ? Return to your normal activities as told by your health care provider. Ask your health care provider what activities are safe fo (more content not included)... [facility] XR Ankle Complete Righton XR Ankle Complete Right X-RAY OF THE right ankle HISTORY: fall today COMPARISON: There are no previous studies available for comparison. TECHNIQUE: 3 views of the right ankle. FINDINGS: BONE DENSITY: Normal. JOINTS: No acute abnormality. FRACTURE: No acute fracture. DISLOCATION: None. SOFT TISSUES: No radiopaque foreign body. IMPRESSION: No acute osseous or joint abnormality. Final Dictated by: Tavo Bynum MD Dictated DT/TM: 02/19/22 7:52 Signed (Electronic Signature): Tavo Bynum MD 02/19/22 7:53 pm Technologist: REG[facility] XR Foot Complete Righton XR Foot Complete Right X-RAY OF THE right foot HISTORY: fall today COMPARISON: There are no previous studies available for comparison. TECHNIQUE: 3 views of the right foot. FINDINGS: BONE DENSITY: Normal. JOINTS: No acute abnormality. FRACTURE: No acute fracture. DISLOCATION: None. SOFT TISSUES: No radiopaque foreign body. IMPRESSION: No acute osseous or joint abnormality. Final Dictated by: Tavo Bynum MD Dictated DT/TM: 02/19/22 7:59 Signed (Electronic Signature): Tavo Bynum MD 02/19/22 8:01 pm Technologist: [facility] Vital Signs Date Time Vital Sign Value Performing Clinician Facility 08-25-2023 07:09-0400 Body height 160 cm Pacc 3 Work Phone: [facility] 08-25-2023 07:09-0400 Body temperature 97.59 [degF] Pacc 3 Work Phone: [facility] 08-25-2023 07:09-0400 Body weight 98.7 kg Pacc 3 Work Phone: [facility] 08-25-2023 07:09-0400 Diastolic blood pressure 63 mm[Hg] Pacc 3 Work Phone: [facility] 08-25-2023 07:09-0400 Heart rate 66 /min Pacc 3 Work Phone: [facility] 08-25-2023 07:09-0400 SaO2% (BldA) [Mass fraction] 100 % Pacc 3 Work Phone: [facility] 08-25-2023 07:09-0400 Systolic blood pressure 116 mm[Hg] Pacc 3 Work Phone: [facility] 04-02-2023 07:15-0500 Body height 160.02 cm [facility] Other [facility] Other 04-02-2023 07:15-0500 Body mass index (BMI) [Ratio] 40.07 kg/m2 [facility] Other [facility] Other 04-02-2023 07:15-0500 Body temperature 99.1 [degF] Aime Schwerer Other [facility] Other 04-02-2023 07:15-0500 Body weight 102.6 kg [facility] Other [facility] Other 04-02-2023 07:15-0500 Diastolic blood pressure 78 mm[Hg] Aime Schwerer Other [facility] Other 04-02-2023 07:15-0500 SaO2% (BldA) [Mass fraction] 99 % Aime Schwerer Other [facility] Other 04-02-2023 07:15-0500 Systolic blood pressure 128 mm[Hg] Aime Schwerer Other [facility] Other 01-15-2023 10:45-0400 Body height 158.75 cm Aime Schwerer Other [facility] Other 01-15-2023 10:45-0400 Body mass index (BMI) [Ratio] 40.33 kg/m2 Aime Schwerer Other [facility] Other 01-15-2023 10:45-0400 Body weight 101.65 kg Aime Schwerer Other [facility] Other 01-15-2023 10:45-0400 Diastolic blood pressure 78 mm[Hg] Aime Schwerer Other [facility] Other 01-15-2023 10:45-0400 Respiratory rate 18 /min Aime Schwerer Other [facility] Other 01-15-2023 10:45-0400 SaO2% (BldA) [Mass fraction] 100 % Aime Schwerer Other [facility] Other 01-15-2023 10:45-0400 Systolic blood pressure 138 mm[Hg] Aime Goff Other [facility] [employer] Other 05-28-2022 08:32-0500 Body height 167.6 cm Latasha Bobo MD Work Phone: [facility] 05-28-2022 08:32-0500 Body mass index (BMI) [Percentile] Per age and sex 97.14 % Latasha Bobo MD Work Phone: [facility] 05-28-2022 08:32-0500 Body weight 93.44 kg Latasha Bobo MD Work Phone: [facility] 04-15-2022 14:01-0500 Body height 160 cm Mana Abiodunsuto BOX LIDDER.MAINTENANCE MACHINIST Work Phone: [facility] 04-15-2022 14:01-0500 Body mass index (BMI) [Percentile] Per age and sex 98.09 % Mana Kameronvissuto [employer].MAINTENANCE MACHINIST Work Phone: [facility] 04-15-2022 14:01-0500 Body weight 91.63 kg Mana Bonvissuto BOX LIDDER.MAINTENANCE MACHINIST Work Phone: [facility] 04-15-2022 14:01-0500 Diastolic blood pressure 74 mm[Hg] Mana Bonvissuto BOX LIDDER.MAINTENANCE MACHINIST Work Phone: [facility] 04-15-2022 14:01-0500 Heart rate 77 /min Mana Bonvissuto BOX LIDDER.MAINTENANCE MACHINIST Work Phone: [facility] 04-15-2022 14:01-0500 Systolic blood pressure 124 mm[Hg] Mana Bonvissuto BOX LIDDER.MAINTENANCE MACHINIST Work Phone: [facility] Encounters Encounter Date Encounter Type Care Provider Facility Start: 12-20-2023 End: 12-20-2023 ambulatory ADOLFO CRISTOBAL Not Available Start: 11-24-2023 End: 11-24-2023 ambulatory ADOLFO CRISTOBAL Not Available Start: 10-28-2023 End: 10-28-2023 ambulatory [facility] Start: 10-28-2023 Encounter for genera l adult medical examination without abnormal findings [facility] Start: 10-28-2023 End: 10-28-2023 ambulatory [facility] Start: 10-27-2023 End: 10-27-2023 ambulatory ADOLFO JAIN Not Available Start: 10-04-2023 Refill Yesideclan Zepeda MD Work Phone: Endocrinology Comment on above: Refill Request Start: 09-28-2023 End: 09-28-2023 ambulatory ALVERTO SWAIN [facility] Start: 09-09-2023 End: 09-10-2023 ambulatory LATASHA BOBO Facility:[facility] Start: 09-09-2023 End: 09-10-2023 Patient encounter procedure Latasha Bobo MD Work Phone: Otolarynogology Comment on above: Hypothyroidism (acqu ired) (Primary Dx) Start: 09-03-2023 End: 09-04-2023 ambulatory LATASHA BOBO Facility:[facility] Start: 09-02-2023 Admission to [facility] Latasha Bobo MD Work Phone: Otolaryngology Comment on above: surgery time Start: 09-02-2023 ambulatory Latasha lanza MD Work Phone: [facility] Start: 08-25-2023 End: 08-25-2023 ambulatory [facility] Start: 08-25-2023 Encounter for genera l adult medical examination without abnormal findings [facility] Start: 08-25-2023 End: 08-26-2023 ambulatory LATASHA BOBO Facility:[facility] Start: 08-25-2023 End: 08-26-[address] [facility] Facility:[facility] Start: 08-25-2023 Encounter for other preprocedural examination [facility] Start: 08-25-2023 End: 08-25-2023 Admission to establishment [facility] Work Phone: [facility] Start: 08-25-2023 End: 08-25-2023 ambulatory [facility] Work Phone: Pre Anesthesia Comment on above: Pre-op evaluation (P rimary Dx); Gastroesophageal reflux disease, unspecified whether esophagitis present; Obesity, pediatric, BMI greater than or equal 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 Start: 08-25-2023 End: 08-25-2023 Preprocedural examination done Pac Main 3 Work Phone: [facility] Work Phone: Start: 08-18-2023 End: 08-18-2023 ambulatory Yesi Zepeda MD Work Phone: Endocrinology Comment on above: PCOS (polycystic ova perla syndrome) (Primary Dx); Thyroid nodule Start: 08-18-2023 End: 08-18-2023 Telemedicine consultation with patient Yesi Zepeda MD Work Phone: [facility] Start: 07-13-2023 Telephone encounter Latasha Bobo MD Work Phone: [facility] Comment on above: Results Start: 07-09-2023 End: 07-09-2023 ambulatory LATASHA BOBO Facility:[facility] Start: 05-20-2023 End: 05-20-2023 ambulatory Aime Longr Other [facility] Other Start: 05-20-2023 Encounter by german Goff [facility] Start: 04-23-2023 End: 04-24-2023 ambulatory LATASHA BOBO Facility:[facility] Start: 04-02-2023 End: 04-02-2023 ambulatory Aime Schwerer Other [facility] Start: 04-02-2023 Office outpatient vi sit 25 minutes Aime Schwerer [facility] Family Medicine Nadine Start: 02-22-2023 Telephone encounter Aime Goff [facility] Start: 02-22-2023 End: 02-22-2023 ambulatory DO Kevin Stokes Work Phone: [facility] Start: 02-22-2023 End: 02-22-2023 Patient encounter procedure DO Kevin Stokes Work Phone: [facility]Flu Vaccine Start: 01-30-2023 End: 01-30-2023 ambulatory Gerald Barboza Other [facility] Other Start: 01-30-2023 Telephone encounter Gerald Barboza [facility] Urgent Care [facility] Start: 01-27-2023 End: 01-27-2023 ambulatory Aime Goff Facility:[facility] Start: 01-15-2023 End: 01-15-2023 ambulatory Aime Goff Other [facility] Start: 01-15-2023 Office outpatient ne w 45 minutes Aime Goff [facility] Start: 01-06-2023 End: 01-06-2023 Emergency department patient visit Africa Del Cid Facility:[facility] Start: 12-14-2022 End: 12-14-2022 ambulatory PA Chetna Rodriguez Facility:[facility] Start: 11-13-2022 Telephone encounter Davina Enriquez MD Work Phone: Endocrinology Comment on above: Appointment (LM that appt was rescheduled) Start: 10-27-2022 End: 10-27-2022 ambulatory Power Hernandez PAC Facility:[facility] Start: 07-31-2022 End: 07-31-2022 Emergency department patient visit KATHLEEN NAVA Facility:[facility] Start: 07-31-2022 End: 08-01-2022 ambulatory KATHLEEN NAVA Facility:[facility] Start: 07-08-2022 End: 07-08-[facility]22 [facility] Start: 05-28-2022 End: 05-28-2022 Patient encounter procedure Latasha Bobo MD Work Phone: Otolarynogology Comment on above: Thyroid nodule (Prim rodriguez Dx); Abnormal thyroid blood test; History of thyroid nodule Start: 04-24-2022 Telephone encounter Mana Kameron ángelmarjan BOX L[employer]DER.MAINTENANCE MACHINIST Work Phone: Peds Endocrinology Comment on above: Patient Update Start: 04-21-2022 Telephone encounter Mana Joneslinhto BOX LIDDER.MAINTENANCE MACHINIST Work Phone: Peds Endocrinology Comment on above: Results Start: 04-19-2022 ambulatory MANA JEFF [facility] Start: 04-19-2022 End: 04-19-2022 Subsequent hospital visit by physician [facility] Work Phone: [facility] Radiology Ultrasound Comment on above: Abnormal thyroid blo od test [R79.89] Start: 04-16-2022 Telephone encounter Mana Jonesmarjan BOX LIDDER.MAINTENANCE MACHINIST Work Phone: Peds Endocrinology Comment on above: Results Start: 04-15-2022 End: 04-16-2022 ambulatory MANA KAMERONÁNGELMARJAN Facility:[facility] Start: 04-15-2022 End: 04-15-2022 Patient encounter procedure Mana Lorenzoalvin B[employer] L[employer].MAINTENANCE MACHINIST Work Phone: Pediatrics Comment on above: Abnormal thyroid blo od test (Primary Dx); History of thyroid nodule; Obesity, pediatric, BMI greater than or equal 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 Start: 02-19-2022 End: 02-19-2022 ambulatory [facility] Facility:[facility] Procedures Date Procedure Procedure Detail Performing Clinician Start: 05-28-2022 US NECK (POC) HNI USE ONLY Salinas Tam MD Work Phone: Start: 04-19-2022 Us soft tissue head & neck real time imge docm Mana Aguilar APRN.MAINTENANCE MACHINIST Work Phone: Start: 07-12-2017 History of tonsillectomy S/P tonsill ectomy Mana Jeff ROA Work Phone: Plan of Treatment Date Care Activity Detail Author Start: 11-24-2025 Urine microalbumin profile DTaP,Tdap,Td Vaccine (7 - Td or Tdap) [facility] Start: 10-09-2023 End: 01-08-2024 Thyrotropin [Units/volume] in Serum or Plasma THYROID STIMULATING HORMONE Lab Routine Hypothyroidism (acquired) Expected: 10/09/2023, Expires: 01/08/2024 [facility] Work Phone: Comment on above: Expected: 10/09/2023 , Expires: 01/08/2024 Start: 09-09-2023 End: 12-09-2023 Calcium [Mass/volume] in Serum or Plasma CALCIUM, TOTAL Lab Routine Hypothyroidism (acquired) Expected: 09/09/2023, Expires: 12/09/2023 [facility] Comment on above: Expected: 09/09/2023 , Expires: 12/09/2023 Start: 09-09-2023 End: 12-09-2023 Parathyrin.intact [Mass/volume] in Serum or Plasma PTH INTACT Lab Routine Hypothyroidism (acquired) Expected: 09/09/2023, Expires: 12/09/2023 [facility] Comment on above: Expected: 09/09/2023 , Expires: 12/09/2023 Start: 08-18-2023 End: 11-17-2023 17-Hydroxyprogesterone [Mass/volume] in Serum or Plasma HYDROXYPROGESTERONE-17 Lab Routine PCOS (polycystic ovarian syndrome) Expected: 08/18/2023, Expires: 11/17/2023 [facility] Work Phone: Comment on above: Expected: 08/18/2023 , Expires: 11/17/2023 Start: 08-18-2023 End: 11-17-2023 TESTOSTERONE, FREE AND TOTAL TESTOSTERONE, FREE AND TOTAL Lab Routine PCOS (polycystic ovarian syndrome) Expected: 08/18/2023, Expires: 11/17/2023 [facility] Work Phone: Comment on above: Expected: 08/18/2023 , Expires: 11/17/2023 Start: 08-02-2023 End: 11-01-2023 Basic metabolic 2000 panel - Serum or Plasma BASIC METABOLIC PNL Lab Routine Thyroiditis Expected: 08/02/2023, Expires: 11/01/2023 [facility] Work Phone: Comment on above: Expected: 08/02/2023 , Expires: 11/01/2023 Start: 08-02-2023 End: 11-01-2023 CBC panel - Blood by Automated count CBC Lab Routine Thyroiditis Expected: 08/02/2023, Expires: 11/01/2023 [facility] Work Phone: Comment on above: Expected: 08/02/2023 , Expires: 11/01/2023 Start: 05-17-2023 Behavioral Health Screening Behavioral Health Screening [facility] Start: 05-17-2023 Depression Assessment Depression Ass essment [facility] Start: 01-15-2023 Covid-19 Vaccine (2022- season) Covid-19 Vaccine ( season) [facility] Start: 01-15-2023 Influenza vaccination [facility] Start: 2022 CHLAMYDIA SCREENING (18-24) CHLAMYDIA SCREENING (18-24) [facility] Start: 2022 GC (GONORRHEA) SCREENING (18-24) GC (GONORRHEA) SCREENING (18-24) [facility] Start: 2022 HEPATITIS C SCREENING HEPATITIS C [facility] Start: 2022 Hepatitis C screening Hepatitis C [facility] Start: 2022 HIV SCREENING HIV SCREENING [facility] Start: 2022 HIV screening HIV Screening [facility] Start: 2022 Screening for Chlamy cindy trachomatis Chlamydia Screening (18-) [facility] Start: 05-17-2022 DEPRESSION ASSESSMENT DEPRESSION ASS ESSMENT [facility] Start: 01-15-2022 Influenza vaccination INFLUENZA (#1) [facility] Start: 01-06-2021 COVID-19 VACCINE (3 - Booster for Pfizer series) COVID-19 VACCINE (3 - Booster for Pfizer series) [facility] Start: 2020 Meningococcal B Vaccine: Consider Based On Risk (1 of 2 - Patient Seeks Protection) Meningococcal B Vaccine: Consider Based On Risk (1 of 2 - Patient Seeks Protection) [facility] Start: 2020 MENINGOCOCCAL CONJUG ATE (1 - 2-dose series) MENINGOCOCCAL CONJUGATE (1 - 2-dose series) [facility] Start: 2019 CHLAMYDIA SCREENING (<18) CHLAMYDIA SCREENING (<18) [facility] Start: 2019 GC (GONORRHEA) SCREENING (<18) GC (GONORRHEA) SCREENING (<18) [facility] Start: 2018 PEDS TO ADULT TRANSITION ANNUAL ASSESSMENT PEDS TO ADULT TRANSITION ANNUAL ASSESSMENT [facility] Start: 2016 Adult depression screening assessment DEPRESSION SCREENING [facility] Start: 2016 PEDS TO ADULT TRANSITION INITIAL DISCUSSION PEDS TO ADULT TRANSITION INITIAL DISCUSSION [facility] Start: 2015 HPV VACCINE (1 - 2-d ose series) HPV VACCINE (1 - 2-dose series) [facility] Start: 2014 MENINGOCOCCAL B: Consider based on risk (1 of 2 - Risk Bexsero 2-dose series) MENINGOCOCCAL B: Consider based on risk (1 of 2 - Risk Bexsero 2-dose series) [facility] Start: 2013 HPV VACCINE (1 - 2-d ose series) HPV VACCINE (1 - 2-dose series) [facility] Start: 2011 Urine microalbumin profile DTAP,TDAP,TD (1 - Tdap) [facility] Start: 2005 MMR (1 of 2 - Standa rd series) MMR (1 of 2 - Standard series) [facility] Start: 2005 VARICELLA (1 of 2 - 2-dose childhood series) VARICELLA (1 of 2 - 2-dose childhood series) [facility] Start: 2004 POLIO (1 of 3 - 4-do se series) POLIO (1 of 3 - 4-dose series) [facility] Start: 2004 HEPATITIS B (1 of 3 - 3-dose series) HEPATITIS B (1 of 3 - 3-dose series) [facility] 17-Hydroxyprogestero ne [Mass/volume] in Serum or Plasma HYDROXYPROGESTERONE-17 Lab Routine PCOS (polycystic ovarian syndrome) 08/25/2023 8:23 AM EDT [facility] Work Phone: End: 08-01-2024 ECG COMPLETE ECG COMPLETE ECG Routine Thyroiditis 1 Occurrences starting 08/02/2023 until 08/01/2024 [facility] Work Phone: Comment on above: 1 Occurrences starti ng 08/02/2023 until 08/01/2024 TESTOSTERONE, FREE A ND TOTAL TESTOSTERONE, FREE AND TOTAL Lab Routine PCOS (polycystic ovarian syndrome) 08/25/2023 8:23 AM EDT [facility] Work Phone: End: 05-15-2023 Us soft tissue head & neck real time imge docm US THYROID/PARATHYROID Radiology Routine Abnormal thyroid blood test History of thyroid nodule 1 Occurrences starting 04/15/2022 until 05/15/2023 [facility] Work Phone: Comment on above: 1 Occurrences starti ng 04/15/2022 until 05/15/2023 [facility] N Immunizations Immunization Date Immunization Notes Care Provider Karolina emery 03-14-2020 influenza, injectabl e, quadrivalent, contains preservative Aime Schwerer Other [facility] 03-14-2020 influenza virus vaccine, unspecified formulation [facility] Work Phone: [facility] 11-25-2015 human papilloma viru s vaccine, quadrivalent Aime Schwerer Other [facility] Other 11-25-2015 meningococcal polysaccharide (groups A, C, Y and W-135) diphtheria toxoid conjugate vaccine (MCV4P) Aime Schwerer Other [facility] Other Payers Date Payer Category Payer Self-pay [id number] 2017 Unknown [id number] 2017 Unknown [id number] 2014 Unknown [id number] 2004 Unknown [id number] 2.16.8 [id number] 2004 Unknown [id number] 2.16.8 [id number] 2004 Unknown [id number] 2.16.8 [id number] 2004 Unknown [id number] 2.16.8 [id number] 2004 Unknown [id number] 2.16.8 [id number] 2004 Unknown [id number] 2.16.8 [id number] 2004 Unknown [id number] 2.16.8 40.1.445412.3.579.2.8 2004 Unknown [id number] 2.16.8 40.1.574064.3.579.2.1286 2004 Unknown [id number] 2.16.8 40.1.351953.3.579.2.6 2004 Unknown [id number] 2.16.8 40.1.842135.3.579.2.1286 2004 Unknown [id number] 2.16.8 40.1.585606.3.579.2.1286 2004 Unknown [id number] 2.16.84 [id number] 2004 Unknown [id number] 2.16.84 0.1.840037.3.579.2.1259 2004 Unknown [id number] 2.16.84 [id number] 1978 Unknown [id number] 2.16.84 [id number] Unknown [employer] [id number] Unknown [id number] 2.16.8 [id number] Social History Date Type Detail Facility Start: 04-15-2022 Tobacco smoking status NHIS Never smoked tobacco [facility] History of tobacco use Passive smoker [facility] Start: 04-15-2022 Tobacco use and exposure Smokeless tobacco non-user [facility] Start: 04-15-2022 End: 09-09-2023 Alcohol intake Current non-drinker of alcohol (finding) [facility] Start: 04-15-2022 Tobacco Comment mom & dad both smoke in house [facility] Start: 2004 Sex Assigned At Not on file [facility] Start: 04-05-2022 End: 04-19-2022 Exposure to SARS-CoV-2 (event) Not sure [facility] Start: 04-15-2022 End: 01-07-2023 Sex Assigned At [facility] Start: 2004 Sex Assigned At Female F [facility] Start: 04-15-2022 End: 01-07-2023 History of Social function [facility] National Score (1-100), lower number is lower risk Not on file [facility] Clinical Notes 06-17-2017 to 10-04-2023 Telephone Encounter - Lenin Cavazos - 10/04/2023 1:26 PM EDTTelephone Encounter - Lenin Cavazos - 10/04/2023 1:26 PM Latasha Manuel MD - 09/09/2023 4:43 PM EDTPatient Instructions Note Date & Type Note Facility 10-04-2023 Telephone encounter Note Requester: Patient Patients last Endocrinology visit occurred 08/18/23. Follow-up evaluation has been established Upcoming Endocrinology Appointments - Next 365 Days No appointments to display . Requested Prescriptions Pending Prescriptions Disp Refills levothyroxine (SYNTHROID) 150 mcg tablet 30 tablet 0 Sig: Take 1 tablet by mouth daily at 6 am. If patient is due for an appointment please route to provider for refill consideration and also to the endo scheduling pool. PSS NOTE: Patient needs scheduled appointment No Patient is completely out of medication. [facility] 10-04-2023 Miscellaneous Notes Requester: Patient Patients last Endocrinology visit occurred 08/18/23. Follow-up evaluation has been established Upcoming Endocrinology Appointments - Next 365 Days No appointments to display . Requested Prescriptions Pending Prescriptions Disp Refills levothyroxine (SYNTHROID) 150 mcg tablet 30 tablet 0 Sig: Take 1 tablet by mouth daily at 6 am. If patient is due for an appointment please route to provider for refill consideration and also to the endo scheduling pool. PSS NOTE: Patient needs scheduled appointment No Patient is completely out of medication. documented in this encounter [facility] 09-09-2023 Note HNO ID: [id number] Author: LATASHA BOBO MD Service: ? Author Type: Physician Type: Progress Notes Filed: 10/15/2023 00:28 Note Text: [facility] Note CC: Post op of total thyroidectomy performed on 09/03/23 HPI: Patient is a 18 year old female with thyroid nodules with pain and tenderness along the neck. She underwent total thyroidectomy 09/02. She has been recovering relatively well though she does still have some pain along the incision. Voice has been raspy. No dysphagia. Pathology: FINAL DIAGNOSIS A. Pretracheal lymph node, excision: - Fibroadipose tissue with one benign lymph node. B. 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 Current Outpatient Medications Medication Sig Dispense Refill levothyroxine (SYNTHROID) 150 mcg tablet Take 1 tablet by mouth daily at 6 am. 30 tablet 0 omeprazole (PRILOSEC) 40 mg capsule Take 40 mg by mouth once daily. ondansetron (ZOFRAN) 4 mg tablet Take 4 mg by mouth every 8 hours as needed for nausea/vomiting. hydrOXYzine pamoate (VISTARIL) 25 mg capsule Take 25 mg by mouth once daily. sertraline (ZOLOFT) 50 mg tablet Take 50 mg by mouth once daily. nitrofurantoin monohydrate and macrocrystal (MACROBID) 100 mg capsule Take 1 capsule by mouth two times a day for 5 days. 10 capsule 0 oxyCODONE IR (ROXICODONE) 5 mg immediate release tablet Take 1 tablet by mouth every 6 hours as needed for up to 5 days. (Patient not taking: Reported on 09/09/2023) 15 tablet 0 No current facility-administered medications for this visit. EXAM: Constitutional - General Appearance: well developed, well nourished, without obvious deformities Communication: speaks with a normal voice without hoarseness Head AND Face - Overall: no obvious scars, lesions or masses Facial strength: normal and equal bilaterally Oral Cavity and oropharynx: mucosa, hard and soft palates, tongue, tonsil area, posterior pharyngeal wall, lips and gums are without lesions Neck: appears symmetric, and on palpation is without masses or lymphadenopathy. Well-healing midline neck scar with ongoing erythema Neuro: CN III - CN XII grossly intact Procedure: Flexible Laryngoscopy Pre-procedure diagnosis: S/p total thyroidectomy Post-procedure diagnosis: same Indications: Evaluation of the larynx and immediate subglottis - unable to be visualized by mirror examination Anesthesia: Lidocaine and Phenylephrine Procedure: Topical anesthesia and vasoconstriction was applied with spray to both sides of the nose. After waiting an appropriate period of time for anesthesia/vasoconstriction to become effective, a flexible laryngoscope was passed through the left nasal passage. Findings: The nasal cavity and nasopharynx were normal. No masses or lesions were visualized at the base of tongue, vallecula, epiglottis, aryepiglottic folds, pyriform sinuses, and lateral pharyngeal dumont. True vocal cord movement was intact bilaterally. The patient's airway was widely patent with no evidence of obstruction. Patient tolerated the procedure well, and there were no complications. The procedure was performed by me. I was present for the entirety of the endoscopy/procedure and discussed the results with the patient. Latasha Bobo MD ASSESSMENT: Sheyla Lea is a 18 year old female with a history of Hellen's thyroiditis now s/p total thyroidectomy. Final pathology benign. PLAN AND RECOMMENDATIONS: Follow-up in 3 months Discussed scar care. Vocal cords fully mobile on scope Synthroid management per endocrinology Brenda Mendoza for the service of Latasha Bobo MD Otolaryngology Staff Attestation Details as per Dr. Mendoza's note which I have reviewed and edited. I performed a history and physical examination of the patient and discussed the patient's management with the resident. I agree with the documented findings and treatment plan. Latasha Bobo MD [facility] 09-09-2023 History of Presen t illness Narrative [facility] Note CC: Post op of total thyroidectomy performed on 09/03/23 HPI: Patient is a 18 year old female with thyroid nodules with pain and tenderness along the neck. She underwent total thyroidectomy 09/02. She has been recovering relatively well though she does still have some pain along the incision. Voice has been raspy. No dysphagia. Pathology: FINAL DIAGNOSIS A. Pretracheal lymph node, excision: - Fibroadipose tissue with one benign lymph node. B. 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 Current Outpatient Medications Medication Sig Dispense Refill levothyroxine (SYNTHROID) 150 mcg tablet Take 1 tablet by mouth daily at 6 am. 30 tablet 0 omeprazole (PRILOSEC) 40 mg capsule Take 40 mg by mouth once daily. ondansetron (ZOFRAN) 4 mg tablet Take 4 mg by mouth every 8 hours as needed for nausea/vomiting. hydrOXYzine pamoate (VISTARIL) 25 mg capsule Take 25 mg by mouth once daily. sertraline (ZOLOFT) 50 mg tablet Take 50 mg by mouth once daily. nitrofurantoin monohydrate and macrocrystal (MACROBID) 100 mg capsule Take 1 capsule by mouth two times a day for 5 days. 10 capsule 0 oxyCODONE IR (ROXICODONE) 5 mg immediate release tablet Take 1 tablet by mouth every 6 hours as needed for up to 5 days. (Patient not taking: Reported on 09/09/2023) 15 tablet 0 No current facility-administered medications for this visit. EXAM: Constitutional - General Appearance: well developed, well nourished, without obvious deformities Communication: speaks with a normal voice without hoarseness Head & Face - Overall: no obvious scars, lesions or masses Facial strength: normal and equal bilaterally Oral Cavity and oropharynx: mucosa, hard and soft palates, tongue, tonsil area, posterior pharyngeal wall, lips and gums are without lesions Neck: appears symmetric, and on palpation is without masses or lymphadenopathy. Well-healing midline neck scar with ongoing erythema Neuro: CN III - CN XII grossly intact Procedure: Flexible Laryngoscopy Pre-procedure diagnosis: S/p total thyroidectomy Post-procedure diagnosis: same Indications: Evaluation of the larynx and immediate subglottis - unable to be visualized by mirror examination Anesthesia: Lidocaine and Phenylephrine Procedure: Topical anesthesia and vasoconstriction was applied with spray to both sides of the nose. After waiting an appropriate period of time for anesthesia/vasoconstriction to become effective, a flexible laryngoscope was passed through the left nasal passage. Findings: The nasal cavity and nasopharynx were normal. No masses or lesions were visualized at the base of tongue, vallecula, epiglottis, aryepiglottic folds, pyriform sinuses, and lateral pharyngeal dumont. True vocal cord movement was intact bilaterally. The patient's airway was widely patent with no evidence of obstruction. Patient tolerated the procedure well, and there were no complications. The procedure was performed by me. I was present for the entirety of the endoscopy/procedure and discussed the results with the patient. Latasha Bobo MD ASSESSMENT: Sheyla Lea is a 18 year old female with a history of Hellen's thyroiditis now s/p total thyroidectomy. Final pathology benign. PLAN AND RECOMMENDATIONS: Follow-up in 3 months Discussed scar care. Vocal cords fully mobile on scope Synthroid management per endocrinology Brenda Mendoza for the service of Latasha Bobo MD Otolaryngology Staff Attestation Details as per Dr. Mendoza's note which I have reviewed and edited. I performed a history and physical examination of the patient and discussed the patient's management with the resident. I agree with the documented findings and treatment plan. Latasha Bobo MD documented in this encounter [facility] 09-09-2023 Nurse Note Tobacco Use: Never Was smoking cessation packet given? N/A - Patient is a non-smoker or quit >1 year ago. Was a referral initiated?N/A Patient is a non-smoker [facility] 09-09-2023 Nurse Note Tobacco Use: Never Was smoking cessation packet given? N/A - Patient is a non-smoker or quit >1 year ago. Was a referral initiated?N/A Patient is a non-smoker documented in this encounter [facility] 09-04-2023 Note HNO ID: [id number] Author: PEG RICKETTS MD Service: Otolaryngology Author Type: Resident Type: Progress Notes Filed: 09/04/2023 08:34 Note Text: [facility] OTOL[facility]Y - HEAD AND NECK SURGERY PROGRESS NOTE PAGE [id number] AFTER 1700 AND ON WEEKENDS Patient Name: Sheyla Lea Age: [age] year old Sex: female Date: September 04, 2023 Admission Date: 09/03/2023 Hospital Day: 0 ASSESSMENT/PLAN: Sheyla Lea is a 18 year old female who has been followed for total thyroidectomy - DC drain - DC home Peg Ricketts MD PGY-2 Otolaryngology/Head and Neck Surgery [phone] Service Pager [phone] - please page after 5pm and on weekends SUBJECTIVE: No acute events overnight. Pain well-controlled with current regimen. Breathing well on RA. Tolerating diet. No hoarseness OBJECTIVE: Vitals: 09/03/23 1733 09/03/23 2056 09/04/23 0047 09/04/23 0550 BP: 127/70 109/66 111/70 117/67 Pulse: 69 68 68 84 Resp: 16 16 14 16 Temp: 36.6 ?C (97.8 ?F) 36.8 ?C (98.3 ?F) 36.1 ?C (97 ?F) 36.8 ?C (98.3 ?F) TempSrc: Oral Oral Temporal Oral SpO2: 98% 98% 99% 100% Ins AND Outs: Date 09/03/23699 - 09/04/23 0659 09/04/23699 - 09/05/23 0659 Shift 7286-8762 5239-5673 1542-8041 24 Hour Total 3902-1930 8719-5362 3913-5403 24 Hour Total INTAKE PO 200 200 PO 200 200 IV 1999 423 1122 3545 OR Crystalloid intake (mL) 1000 1000 Volume (mL) (ceFAZolin iv piggyback 2 g in D5W (iso-osmotic) 100 mL (ANCEF)) 100 100 Volume (mL) (lactated ringers iv infusion) 1000 1000 Volume (mL) (NaCl 0.9% iv infusion) 423 1022 1445 Shift Total 1999 623 1122 3745 OUTPUT Urine 650 727 5602 1650 Void (ml) 360 018 7627 1650 Tubes 17.5 10 27.5 Drain/Tube Output (Drain/Tube 09/03/23 1124 [facility] Midline Anterior Neck) 17.5 10 27.5 # of BMs Number of BMs 0 x 0 x Shift Total 300 267.5 1110 1677.5 Weight (kg) Physical Examination: General: No acute distress Neuro: following commands, appropriate Cardiopulm: Well perfused, breathing non-labored, no hoarseness Face: Full and symmetric facial motion, no weakness Neck: soft, incisions c/d/i, no signs of hematoma, seroma, Drain SS holding suction LABS: Blood: Recent Labs 09/04/23 0610 WBC 6.31 HB 12.4 HCT 38.9 PLT 241 MCV 80.2 MCH 25.6* MCHC 31.9 RDWCV 14.4 MPV 11.2 Recent Labs 09/04/23 0610 NA 139 K 3.9 CHLOR 106* CO2 21* BUN 6* CREAT 0.59 GLUC 85 CA 8.7 MG 2.1 P 3.3 No results for input(s): PCGLUCOSE in the last 72 hours. No results for input(s): CK , CKMB , MB , TROPT in the last 72 hours. No results for input(s): PTSEC , INR , APTT in the last 72 hours. No results for input(s): TBILI , CBILI , AST , ALT , ALKPHOS , TPROT , ALB , AMYLASE , LIPASE in the last 72 hours. No results for input(s): PH , PCO2 , PO2 , HCO3 , BE , LACT in the last 72 hours. Medications: Current Facility-Administered Medications Medication Dose Route Frequency benzocaine-menthol 1 Lozenge (CHLORASEPTIC) 1 Lozenge MUCOUS MEMBRANE (TOPICAL MOUTH AND THROAT) q 2 H PRN NaCl 0.9% iv infusion 0-100 mL/hr INTRAVENOUS CONTINUOUS pantoprazole 20 mg oral liquid (PROTONIX) 20 mg ORAL/FEEDING TUBE DAILY polyethylene glycol 3350 17 g packet 17 g ORAL/FEEDING TUBE DAILY PRN ondansetron (PF) 4 mg injection (ZOFRAN) 4 mg INTRAVENOUS q 6 H PRN heparin 5,000 Units injection 5,000 Units SUBCUTANEOUS q 12 H acetaminophen 1,000 mg tab(s) (TYLENOL) 1,000 mg ORAL/FEEDING TUBE q 6 H Followed by [START ON 09/10/2023] acetaminophen 500 mg tab(s) (TYLENOL) 500 mg ORAL/FEEDING TUBE q 6 H oxyCODONE IR 5 mg tab(s) (ROXICODONE) 5 mg ORAL q 6 H PRN ceFAZolin iv piggyback 2 g in D5W (iso-osmotic) 100 mL (ANCEF) 2 g INTRAVENOUS q 8 HR bacitracin 500 unit/gram topical ointment TOPICAL BID [START ON 09/10/2023] white petrolatum 41 % topical ointment (AQUAPHOR) TOPICAL BID sertraline 100 mg tab(s) (ZOLOFT) 100 mg ORAL DAILY levothyroxine 150 mcg (SYNTHROID) 150 mcg ORAL DAILY (6 AM) Active Problems: * No active hospital problems. * Active Problems: * No active hospital problems. * thyroid POA: Yes [facility] 09-03-2023 Note HNO ID: [id number] Author: PATRICIA ARAGON APRN.CARAMEL COLORING OPERATOR Service: ? Author Type: Nurse Weighbridge Operator Type: Anesthesia Procedure Notes Filed: 09/03/2023 07:56 Note Text: ANESTHESIOLOGY PROCEDURE NOTE Airway General Information Procedure Start Time/Medication Administration: 09/03/2023 7:31 AM Procedure End Time: 09/03/2023 7:32 AM Patient location during procedure: OR Timeout Performed Pre-procedure: timeout performed Consent Obtained: Yes Patient identity confirmed: arm band and patient Staffing CARAMEL COLORING OPERATOR: Patricia Aragon APRN.CARAMEL COLORING OPERATOR Indications and Patient Condition Indications for airway management: anesthesia and airway protection Preoxygenated: yes anesthesia circuit Method: asleep Cricoid Pressure: No Manual In-Line Stabilization: No Difficult Mask: No Final Airway Details Final airway type: endotracheal airway Final Endotracheal Airway: NIM tube Cuffed: yes Successful intubation technique: video laryngoscopy Devices used: minicabit Endotracheal tube insertion site: oral ETT size (mm): 7.0 Measured from: lips Measurement (cm): 22 Placement verified by: capnometry Cormack-Lehane Classification: grade I - full view of glottis Number of attempts at approach: 1 Failed airway: no Unrecognized esophageal intubation: no Airway not difficult SIGNATURE: Patricia Aragon APRN.CARAMEL COLORING OPERATOR PATIENT NAME: Sheyla Lea DATE: September 03, 2023 TIME: 7:55 AM CSN: [id number] [facility] 08-25-2023 Miscellaneous Notes Addended by: JOHN HUMPHREY on: 08/25/2023 02:01 PM Modules accepted: Orders documented in this encounter [facility] 08-25-2023 Instructions John Humphrey PA-C - 08/25/2023 7:49 AM EDT PATIENT PREOPERATIVE INSTRUCTIONS No ref. provider found has scheduled you for your procedure at this surgery center: [facility] Scheduling Office: [phone] --[address] [place] [address]. Please read below carefully for your personalized instructions. Dietary Restrictions: - No solid food after midnight. - You may have 12 ounces of clear liquids (water, clear juices such as apple juice or gatorade, carbonated beverages, clear tea, black coffee, jello) until 2 hours before scheduled arrival at facility. Medications: Unless instructed differently below, stay on all of your medications until your surgery. If you start any new medications after today's visit, please contact your surgeon. No outpatient medications have been marked as taking for the 08/25/23 encounter (PAT) with , [facility]. If you start any new medications after today's visit, please contact the surgeon's office. Blood Thinning Medications: - Stop NSAIDS (Ibuprofen, Advil, Aleve, Motrin, Celebrex, Mobic, etc.) 7 days before surgery, as directed by your surgeon. - Stop Aspirin 7 days before surgery, as directed by your surgeon. - Stop Vitamin E, ALL multi-vitamins, herbals and dietary supplements 7 days before surgery. - You may take Tylenol (Acetaminophen) or any of your pain medications that do not contain aspirin or NSAIDS as needed. Important Reminders: - Candy, mints, and tobacco products are NOT permitted the morning of surgery. - Hearing aids, dentures and glasses may be worn the morning of surgery. - NO jewelry, body piercings, makeup, hairpins or contacts are to be worn the day of surgery. If you develop symptoms such as a fever, cold, or flu, or have other changes to your health within TWO DAYS of scheduled surgery or the morning of surgery, please contact the surgery center above. Personal Belongings: -Please have photo ID and insurance cards. -If you do not have a copy of advance directives on file with us, please bring a copy with you on the day of surgery. - Leave ALL valuables and money at home or with family members. For Outpatient Procedures: - YOU MUST HAVE A RESPONSIBLE INSPECTOR HAIRSPRING TRUING TAKE YOU HOME. A ENTRY LEVEL MARKETING ASSISTANT OR COMPUTER SYSTEMS DESIGN ANALYST CANNOT BE MADE A RESPONSIBLE INSPECTOR HAIRSPRING TRUING. - We recommend that a responsible person stays with you overnight to take care of you. - You cannot stay in a hotel alone after outpatient surgery. You will not be permitted to have your surgery, if you do not have someone to take care of you. Arrival Time for Surgery: - To obtain your arrival time for surgery, call your physician's office the day before your surgery. - If your surgery is scheduled for Wednesday, call the Wednesday before. Your surgeon s space scheduler will tell you what time to call the office. - If you have not reached the departmental space scheduler by 5 P.M., call [phone] after 5 P.M. the day before your surgery. Please be aware that emergency situations arise, which may delay or change your surgical time. If this happens, we will notify you as soon as possible and regret any inconvenience. If you already have an Advance Directive, please fax a copy to [phone] or email to for it to be added to your chart. If you do not have an Advance Directive, you can find the appropriate form and more information at [email or web address]. We recommend that you complete the Advance Directive form found on the website and bring it with you the day of your surgery. It can be witnessed and scanned into your chart that day. John Humphrey PA-C documented in this encounter [facility] 08-25-2023 History and physical note HISTORY AND PHYSICAL EXAMINATION SERVICE DATE: 08/25/2023 SERVICE TIME: 7:58 AM PRIMARY CARE PHYSICIAN: ANITA ELMORE NP Assessment Patient has the following medical conditions which may affect emmie-operative course: GERD (gastroesophageal reflux disease) Currently controlled with dietary and lifestyle modifications. Obesity, pediatric, BMI greater than or equal 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 Body mass index is 38.55 kg/m . Payne Activity Status Index: METS: Climb a flight of stairs or walk up a hill (5.50 METs) Do heavy work around the house, such as scrubbing floors, lifting or moving heavy furniture (8.00 METs) DASI Score: 13.5 (Goes to the gym 5 times per week- lifts weights, walks on treadmill. ) Patient denies any chest pain or undue shortness of breath with the above physical activity. Clinical Frailty Scale: 1. Very fit STOP-Bang Score: BMI greater than 35 kg/m^2 STOP-Bang Score: 1 ANESTHESIA FINDINGS: Intubation History: No history of difficult intubation Significant Anesthesia Considerations: none Airway History: No history of difficult airway I - PHYSICAL EVALUATION AIRWAY Patient intubated: No. Tracheostomy tube not present Mallampati: III. TM distance: >3 FB. Neck ROM: full ROM without neurological symptoms. Mouth opening: adequate. Short neck: no. Thick neck: no Lip Bite Test: I DENTAL Dental findings: teeth intact. II - ANESTHESIA PLAN Anesthetic plan additional comments: *PACC/TCI - anesthesia choice. Beta Katelyn Monitoring Plan Post Procedure Analgesic Plan Prepared for Surgery: optimally prepared for surgery, pending [see comment]. Labs and EKG CONSULTS: Patient does not require consults for optimization at this time Planned Anesthetic: anesthesia choice The Following Tests/Procedures Have Been Initiated: Labs and EKG per surgical service. REASON FOR VISIT: Sheyla Lea is a 18 year old female who is scheduled for Procedure(s): THYROIDECTOMY TOTAL (Bilateral) at the request of Latasha Harden MD for consultation. My final recommendation will be communicated back to the requesting physician by way of shared medical record or letter. Subjective The patient has the following: ACTIVE PROBLEM LIST Thyroid Nodule Family History of Thyroid Disease Dysfunction of Both Eustachian Tubes History of Otitis Media S/P Tonsillectomy Tonsillar Hypertrophy Abnormal Thyroid Blood Test History of Thyroid Nodule Obesity, Pediatric, Bmi Greater Than Or Equal to 95th Percentile for Age Gerd (Gastroesophageal Reflux Disease) COVID-19 Immunization Status Overdue - Covid-19 Vaccine ( season) Overdue since 01/15/2023 11/11/2020 Imm Admin: COVID-19 original vaccine, age 12+ yr, monovalent (PFIZER-BIONTECH - PURPLE TOP) 10/21/2020 Imm Admin: COVID-19 original vaccine, age 12+ yr, monovalent (PFIZER-BIONTECH - PURPLE TOP) CHIEF COMPLAINT: Pre-op evaluation HPI: Patient is a 18 year old year old female who is scheduled for above case on 09/03/2023. Patient has a painful thyroid and antithyroid antibodies are elevated. Denies any fevers, chills, nausea, vomiting, SOB or chest pain. REVIEW OF SYSTEMS: General: Negative for: weight loss >10% of BW in last 6 months, malaise and fever. Neurological: Negative for: delirium, dementia, headaches, seizures, TIA and strokes. Respiratory: Negative for: asthma, COPD, current cough, dyspnea, home oxygen, pneumonia within 6 weeks, tobacco use and obstructive sleep apnea. Cardiovascular: Negative for: angina, arrhythmia, CAD, chest pain, CHF, DVT/PE, hypertension, recent MS, murmur/valvular heart disease and PVD. GI: Positive for: GERD Negative for: abdominal pain, hepatitis, inflammatory bowel disease, liver disease and ETOH >2 drinks/day. : Negative for: on dialysis, dysuria, hematuria, nephrolithiasis and renal failure. Endocrine: See HPI. Negative for: diabetes mellitus, hyperthyroidism, hypothyroidism and steroid for chronic problem. Hematology: Negative for: anemia, thrombocytopenia and chronic anti-coagulation/platelet meds. Oncology: No history of CA metastasis, chemo within 30 days, or radiotherapy within 90 days. No history of oncological symptoms or problems. Psych: Positive for: depression. Musculoskeletal: Negative for joint pain or swelling, back pain or muscle pain. Skin: Negative for lesions, rash and itching. PAST MEDICAL HISTORY Diagnosis Date GERD (gastroesophageal reflux disease) 08/25/2023 PAST SURGICAL HISTORY Procedure Laterality Date PAST SURGICAL HISTORY OF ear tubes TONSILLECTOMY HX FAMILY HISTORY Problem Relation Age of Onset Obesity Father Hypertension Father Obesity Mother Thyroid Mother Hypertension Maternal Grandfather other (ALS) Maternal Grandfather Obesity Maternal Grandmother wt was >300lbs prior to bariatric surgery Thyroid Cancer Maternal Grandmother other (hyperthyroid) Paternal Grandmother Anesthesia Problems No Family History Social History Tobacco Use Smoking status: Never Passive exposure: Yes Smokeless tobacco: Never Tobacco comments: mom & dad both smoke in house Substance Use Topics Alcohol use: No Drug use: No Prior to Admission medications as of 08/25/23 0744 Medication Sig Last Dose Taking omeprazole (PRILOSEC) 40 mg capsule Take 40 mg by mouth once daily. Patient not taking: Reported on 08/25/2023 Not Taking ondansetron (ZOFRAN) 4 mg tablet Take 4 mg by mouth every 8 hours as needed for nausea/vomiting. Patient not taking: Reported on 08/25/2023 Not Taking hydrOXYzine pamoate (VISTARIL) 25 mg capsule Take 25 mg by mouth once daily. Patient not taking: Reported on 08/25/2023 Not Taking sertraline (ZOLOFT) 50 mg tablet Take 50 mg by mouth once daily. Patient not taking: Reported on 08/25/2023 Not Taking Norgestimate-Ethinyl Estradiol 0.18/0.215/0.25 mg-35 mcg (28) tab Not Taking No medication comments found. ALLERGIES No Known Allergies Objective PHYSICAL EXAM: General: alert and oriented and obese. Pertinent negatives noted - not distressed. Skin: normal color, no rash or lesions. HEENT: pupils equal round. Pertinent negatives noted - no carotid bruit. Cardiovascular: regular rate and rhythm, normal S1 and S2, no rub, murmurs, or gallop. Respiratory: normal breath sounds, no wheezes or crackles. Abdomen: Non-distended.. Extremities: no deformity, no edema or tenderness, no joint swelling or clubbing. Neurological: normal cognition and motor skills. PAIN ASSESSMENT: VITALS: BP 116/63 Pulse 66 Temp (Src) 97.6 (Temporal) Ht 5' 3 (1.60m) Wt 217 lb 9.5 oz (98.7kg) SpO2 100% LMP 08/02/2023 BMI 38.55 kg/(m^2). Diagnostic tests reviewed for today's visit: Lab Value Units Date High Low HB No results within date range. HCT No results within date range. WBC No results within date range. PLT No results within date range. NA No results within date range. K No results within date range. GLUC No results within date range. BUN No results within date range. CREAT No results within date range. PTSEC No results within date range. INR No results within date range. APTT No results within date range. ALT No results within date range. AST No results within date range. TBILI No results within date range. TSH 2.600 mIU/L 07/09/2023 4.300 0.510 Lab Value Units Date High Low HCGQT No results within date range. UHCG No results within date range. HCG, BODY* No results within date range. Lab Value Units Date High Low ABORHD No results within date range. ABSCREEN No results within date range. Hemoglobin A1C (%) Date Value 04/15/2022 4.9 No results found for this or any previous visit (from the past 8760 hour(s)). No results found for this or any previous visit (from the past 12259 hour(s)). Instructions Given to Patient: Instructions located in the after visit summary. Patient given verbal and written preop instructions and voices comprehension and compliance. SIGNATURE: John Humphrey PA-C PATIENT NAME: Sheyla Lea DATE: August 25, 2023 TIME: 7:58 AM PAGER/CONTACT #: documented in this encounter [facility] 08-18-2023 Note HNO ID: [id number] Author: GRETEL STEVENS MD Service: ? Author Type: Fellow Type: Progress Notes Filed: 08/25/2023 13:30 Note Text: [facility] Consultation requested by self For an opinion regarding prethyroidectomy evaluation PCOS. My final recommendations will be communicated back to the requesting physician by way of shared Medical record or letter to requesting physician via US mail. Reason for visit: Nodules/mass 2018, HPI Sheyla Lea is a 18 year old female who is presenting today August 18, 2023 for a new consultation regarding thyroid nodule who is she is undergoing thyroidectomy September 02. She has a past medical history of a little bit of depression anxiety she used to be on Zoloft but not anymore. Her grandmother had thyroid cancer know which type but she is very anxious to get her thyroid removed because it is causing a lot of her pain is already scheduled and she is ready to do it. . 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 Review of Systems Thyroid Pain: yes, discomfort, sore throat, 2 year ago, jessica See loss, skin is dry, She has menstrual irregularities Hirsutism Acne She does not want to have kids Signs of increased testosterone: Hirsutism: yes, she shaves Deepening of voice: yes, a little bit Acne: yes, worsening Male pattern baldness: no Menstrual irregularities: yes, not really a male pattern hair loss yes Infertility: no Possible RAUL: no Recommendations: - HbA1c, TSH - RAUL testing as per primary - If signs of hyperandrogenism, check DHEA-S, total testosterone at 8 AM. - Check 17-hydroxyprogesterone at 8 AM to rule out nonclassic congenital adrenal hyperplasia - If oligomenorrhea, check TSH, hCG, prolactin, FSH, LH, estradiol - Consider pelvic US by BRONC BUSTER - Weight loss recommendations: Advised about lifestyle changes such as weight loss and exercise. Goal weight loss of 5-10%. Mass Effect: difficulty swallowing Energy: decrease Moods: fair Sleep: Normal sleep pattern Temp. Intolerance: Cold Intolerance Cardiac: CV: No CP or palpitations Gyne: Irregular Menses Resp: No cough or SOB GI: consitpation Weight: increased, 2018 goes to the gym 5 days a week Eyes: No eye protrusion or dryness Diaphoresis: Not significant Skin: No skin dryness M/S: No new joint pain Neuro:No new muscle weakness Social History: Social History Tobacco Use Smoking status: Never Passive exposure: Yes Smokeless tobacco: Never Tobacco comments: mom AND dad both smoke in house Substance Use Topics Alcohol use: No Drug use: No Family Hx: Thyroid disease MGM thyroid cancer, No past medical history on file. FAMILY HISTORY Problem Relation Age of Onset Obesity Mother Thyroid Mother Obesity Father Hypertension Father Obesity Maternal Grandmother wt was >300lbs prior to bariatric surgery Thyroid Cancer Maternal Grandmother Hypertension Maternal Grandfather other (ALS) Maternal Grandfather other (hyperthyroid) Paternal Grandmother No past surgical history on file. X-rays with contrast dyes within last 3 months? no H/o exposure to childhood radiation or EBRT? no Physical Exam Patient looks mildly overweight comfortable breathing normally no anxiety Previous laboratory results: TSH Date Value 07/09/2023 2.600 mIU/L 04/15/2022 1.950 mIU/L 06/23/2018 2.470 uU/mL Free T4 (ng/dL) Date Value 07/09/2023 1.2 04/15/2022 1.1 06/23/2018 1.1 Thyroglobulin Ab (IU/mL) Date Value 06/23/2018 897.0 Latest Reference Range AND Units 06/23/18 13:52 04/15/22 14:37 07/09/23 13:37 Thyroglobulin Ab, Serum <4.0 IU/mL 91.0 (H) Hemoglobin A1C 4.3 - 5.6 % 4.9 Estimated Average Glucose mg/dL 94 Free T4 0.9 - 1.7 ng/dL 1.1 1.1 1.2 TSH 0.510 - 4.300 mIU/L 2.470 1.950 2.600 TSI <150 % Normal 38 THYROID PEROXIDASE ANTIBODY <5.6 IU/mL 195.3 (H) 249.5 (H) Thyroglobulin Ab <14.4 IU/mL 897.0 (H) ( Neck Ultrasound: 05/17/2023 Ultrasound Machine: ModusP Transducer: Linear 11 MHz Regions examined: Thyroid Sagittal and transverse views were obtained. Color and power Doppler were applied when indicated. Left Thyroid Lobe: lobe measures 1.88 X1.53 X 3.71 cm Right Thyroid Lobe: lobe measures 1.85 X 1.60 X 3.76 cm Isthmus - 1.58 X 0.43 cm The thyroid bilaterally is fairly homogeneous without honeycomb appearance, there are no concerning nodules based on my ultrasound today. Procedure performed by Latasha Bobo MD * * *Final Report* * * DATE OF EXAM: Apr 19 2022 8:15AM U [id number] - US THYROID/PARATHYROID / PROCEDURE REASON: multiple diagnoses * * * * Physician Inter (more content not included)... [facility] 08-18-2023 History of Presen t illness Narrative Images from the original note were not included. [facility] Consultation requested by self For an opinion regarding prethyroidectomy evaluation PCOS. My final recommendations will be communicated back to the requesting physician by way of shared Medical record or letter to requesting physician via US mail. Reason for visit: Nodules/mass 2018, HPI Sheyla Lea is a 18 year old female who is presenting today August 18, 2023 for a new consultation regarding thyroid nodule who is she is undergoing thyroidectomy September 02. She has a past medical history of a little bit of depression anxiety she used to be on Zoloft but not anymore. Her grandmother had thyroid cancer know which type but she is very anxious to get her thyroid removed because it is causing a lot of her pain is already scheduled and she is ready to do it. . 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 Review of Systems Thyroid Pain: yes, discomfort, sore throat, 2 year ago, jessica See loss, skin is dry, She has menstrual irregularities Hirsutism Acne She does not want to have kids Signs of increased testosterone: Hirsutism: yes, she shaves Deepening of voice: yes, a little bit Acne: yes, worsening Male pattern baldness: no Menstrual irregularities: yes, not really a male pattern hair loss yes Infertility: no Possible RAUL: no Recommendations: - HbA1c, TSH - RAUL testing as per primary - If signs of hyperandrogenism, check DHEA-S, total testosterone at 8 AM. - Check 17-hydroxyprogesterone at 8 AM to rule out nonclassic congenital adrenal hyperplasia - If oligomenorrhea, check TSH, hCG, prolactin, FSH, LH, estradiol - Consider pelvic US by BRONC BUSTER - Weight loss recommendations: Advised about lifestyle changes such as weight loss and exercise. Goal weight loss of 5-10%. Mass Effect: difficulty swallowing Energy: decrease Moods: fair Sleep: Normal sleep pattern Temp. Intolerance: Cold Intolerance Cardiac: CV: No CP or palpitations Gyne: Irregular Menses Resp: No cough or SOB GI: consitpation Weight: increased, 2018 goes to the gym 5 days a week Eyes: No eye protrusion or dryness Diaphoresis: Not significant Skin: No skin dryness M/S: No new joint pain Neuro:No new muscle weakness Social History: Social History Tobacco Use Smoking status: Never Passive exposure: Yes Smokeless tobacco: Never Tobacco comments: mom & dad both smoke in house Substance Use Topics Alcohol use: No Drug use: No Family Hx: Thyroid disease MGM thyroid cancer, No past medical history on file. FAMILY HISTORY Problem Relation Age of Onset Obesity Mother Thyroid Mother Obesity Father Hypertension Father Obesity Maternal Grandmother wt was >300lbs prior to bariatric surgery Thyroid Cancer Maternal Grandmother Hypertension Maternal Grandfather other (ALS) Maternal Grandfather other (hyperthyroid) Paternal Grandmother No past surgical history on file. X-rays with contrast dyes within last 3 months? no H/o exposure to childhood radiation or EBRT? no Physical Exam Patient looks mildly overweight comfortable breathing normally no anxiety Previous laboratory results: TSH Date Value 07/09/2023 2.600 mIU/L 04/15/2022 1.950 mIU/L 06/23/2018 2.470 uU/mL Free T4 (ng/dL) Date Value 07/09/2023 1.2 04/15/2022 1.1 06/23/2018 1.1 Thyroglobulin Ab (IU/mL) Date Value 06/23/2018 897.0 Latest Reference Range & Units 06/23/18 13:52 04/15/22 14:37 07/09/23 13:37 Thyroglobulin Ab, Serum <4.0 IU/mL 91.0 (H) Hemoglobin A1C 4.3 - 5.6 % 4.9 Estimated Average Glucose mg/dL 94 Free T4 0.9 - 1.7 ng/dL 1.1 1.1 1.2 TSH 0.510 - 4.300 mIU/L 2.470 1.950 2.600 TSI <150 % Normal 38 THYROID PEROXIDASE ANTIBODY <5.6 IU/mL 195.3 (H) 249.5 (H) Thyroglobulin Ab <14.4 IU/mL 897.0 (H) ( Neck Ultrasound: 05/17/2023 Ultrasound Machine: ModusP Transducer: Linear 11 MHz Regions examined: Thyroid Sagittal and transverse views were obtained. Color and power Doppler were applied when indicated. Left Thyroid Lobe: lobe measures 1.88 X1.53 X 3.71 cm Right Thyroid Lobe: lobe measures 1.85 X 1.60 X 3.76 cm Isthmus - 1.58 X 0.43 cm The thyroid bilaterally is fairly homogeneous without honeycomb appearance, there are no concerning nodules based on my ultrasound today. Procedure performed by Latasha Bobo MD * * *Final Report* * * DATE OF EXAM: Apr 19 2022 8:15AM [facility] [id number] - US THYROID/PARATHYROID / PROCEDURE REASON: multiple diagnoses * * * * Physician Interpretation * * * * EXAMINATION: THYROID ULTRASOUND HISTORY: Abnormal thyroid blood tests. History of thyroid nodule. TECHNIQUE: Sonography and Doppler imaging of the thyroid was performed. Images were obtained and stored in a permanent archive. COMPARISON: None. RESULT: RIGHT LOBE: 6 x 1.9 x 1.7 cm; heterogeneous echogenicity, expected vascular flow LEFT LOBE: 5.2 x 2.1 x 1.6 cm; heterogeneous echogenicity, expected vascular flow ISTHMUS: 0.5 cm Nodules: The most suspicious thyroid nodules (up to 4) are detailed below: NODULE 1 Location: Left mid Size: 0.8 x 0.7 x 0.4 cm Characteristics: Composition: Solid or almost completely solid, 2 points Echogenicity: Hypoechoic, 2 points Shape: Lqhtz-ojjk-lxan, 0 points Margin: Lobulated or irregular, 2 points Echogenic foci (Add points for all that apply): Punctate echogenic foci, 3 points Internal vascularity: absent Interval growth: No prior available for comparison Total points / TI-RADS Category: TI-RADS 5 ACR Recommendation: TI-RADS 5 Nodule, follow up imaging is advised annualy for 5 years. IMPRESSION: Sheyla Lea is a 17 year old female following up for thyroid nodules.that she describes with severe pain and tenderness in the area of the thyroid. Her grandmother\ thyroid cance. She is scheduled for thyroidectomy on November 02 we will see her afterwards regarding levothyroxine PCOS Patient has menstrual irregularities she has asked me if she has to shave her hairs, I am also every 2 months or when they come his like to weeks. Will check hormonal panel and get back to her Diagnoses and all orders for this visit: PCOS (polycystic ovarian syndrome) - LUTEINIZING HORMONE; Future - FSH BLD; Future - ESTRADIOL-17B BLD; Future - PROLACTIN BLD; Future - HYDROXYPROGESTERONE-17; Future - TESTOSTERONE, FREE AND TOTAL; Future - DHEA-S BLD; Future - HCG QUANTITATIVE; Future This note was created using [employer] dictation software. You may find errors that were missed during proofreading. They are purely unintentional and if there are any concerns regarding this dictation, please do not hesitate to contact the dictating provider for clarification. Discussed with Attending Staff, Dr. Cerda Addendum to follow. Yesi Pizano MD Clinical Fellow Endocrinology and Metabolism [place] Attending Note I evaluated the patient and personally participated in the mayer components. I agree with Dr. Ruffin's findings and plan with the following revisions and/or additions: 18 y/o F here for evaluation of thyroid disease. She has a grandmother with thyroid cancer. She met with ENT and is planned for thyroidectomy. No suspicious thyroid nodules are seen on US and we discussed that thyroidectomy is not used prophylactically to prevent thyroid cancer in her case. She does feel her thyroid is bothersome, pressure and pain and for this reason she wants to pursue thyroidectomy. We discussed after thyroidectomy, she will require lifelong levothyroxine. Also having some symptoms of hyperandrogenism, will check androgens. Gretel Stevens MD documented in this encounter [facility] 08-02-2023 Miscellaneous Notes Spoke with patient her antithyroid antibodies are quite high (TPO). Her TSH is normal at this point. She had a grandmother with Hellen's thyroiditis who had pain in her neck similar to the patient's pain and underwent surgery and her pain resolved. The patient is interested in total thyroidectomy to see if this will help her neck pain. It is chronic and every day. I discussed with her that this is not standard treatment for Hellen's although in some patients with pain related to her thyroiditis it can be helpful. There are risks and it may not be the most straightforward thyroidectomy. She would like to consider it. She will see her sales facilitator which is a new sales facilitator in August and then if still interested in pursuing thyroidectomy will reach out to me. In the meantime we can hold a surgical date. Latasha Bobo MD Pt calling for lab results. Please call documented in this encounter [facility] 05-20-2023 Evaluation note Encounter Date Diagnosis Assessment Notes May, Moderate major depression (ICD-10 - F32.1) May, Chronic GERD (ICD-10 - K21.9) [facility] Other 12-08-2023 NoteHNO ID: [id number] Author: Latasha Bobo MD Service: ? Author Type: Physician Type: Progress Notes Filed: 05/17/2023 1:09 AM Note Text: [facility] follow-up CC: thyroid nodules HPI: Sheyla Lea is a 16 year old female presenting with thyroid nodule Follow-up thyroid nodules. She feels like her neck is painful and tender in the thyroid area. She has not had recent thyroid function tests. Current Outpatient Medications Medication Sig Dispense Refill - omeprazole (PRILOSEC) 40 mg capsule Take 40 mg by mouth once daily. - ondansetron (ZOFRAN) 4 mg tablet Take 4 mg by mouth every 8 hours as needed for nausea/vomiting. - hydrOXYzine pamoate (VISTARIL) 25 mg capsule Take 25 mg by mouth once daily. - sertraline (ZOLOFT) 50 mg tablet Take 50 mg by mouth once daily. - Norgestimate-Ethinyl Estradiol 0.18/0.215/0.25 mg-35 mcg (28) tab (Patient not taking: Reported on 04/23/2023) 1 No current facility-administered medications for this visit. ALLERGIES No Known Allergies FAMILY HISTORY Problem Relation Age of Onset - Obesity Mother - Thyroid Mother - Obesity Father - Hypertension Father - Obesity Maternal Grandmother wt was >300lbs prior to bariatric surgery - Thyroid Cancer Maternal Grandmother - Hypertension Maternal Grandfather - other (ALS) Maternal Grandfather - other (hyperthyroid) Paternal Grandmother Social History Tobacco Use - Smoking status: Never Passive exposure: Yes - Smokeless tobacco: Never - Tobacco comments: mom AND dad both smoke in house Substance Use Topics - Alcohol use: No - Drug use: No PHYSICAL EXAM: Vitals - None obtained during today's visit Constitutional - General Appearance: well developed, well nourished, without obvious deformities Communication: speaks with a normal voice without hoarseness Head AND Face - Overall: no obvious scars, lesions or masses Parotid and submandibular glands: no masses or tenderness Facial strength: normal and equal bilaterally Ear, Nose, Mouth AND Throat - Ears: both left and right external auditory canals and TMs are normal, no external deformities Nasal exam: mucosa is pink, septum is midline, visible turbinates are normal on anterior rhinoscopy Mastication: teeth appear intact Oral Cavity and oropharynx: mucosa, hard and soft palates, tongue, tonsil area, posterior pharyngeal wall, lips and gums are without lesions Neck: appears symmetric, and on palpation is without masses or lymphadenopathy Thyroid: slight thyromegaly that is tender throughout. No asymmetry or thyroid nodules on palpation Cranial Nerves: II: Pupillary reflexes normal III, IV, : EOM normal V: 1,2,3: normal sensation VII: Normal strength in all divisions IX, X: Normal voice, palatal elevation and sensation XI: Shoulder strength normal XII: Tongue mobility normal Neck Ultrasound: 05/17/2023 Ultrasound Machine: ModusP Transducer: Linear 11 MHz Regions examined: Thyroid Sagittal and transverse views were obtained. Color and power Doppler were applied when indicated. Left Thyroid Lobe: lobe measures 1.88 X1.53 X 3.71 cm Right Thyroid Lobe: lobe measures 1.85 X 1.60 X 3.76 cm Isthmus - 1.58 X 0.43 cm The thyroid bilaterally is fairly homogeneous without honeycomb appearance, there are no concerning nodules based on my ultrasound today. Procedure performed by Latasha Bobo MD ASSESSMENT: Sheyla Lea is a 16 year old female following up for thyroid nodules. I do not see any concerning thyroid nodules on ultrasound today however she pain and tenderness in the area of the thyroid. Her grandmother who is with her today had hellen's thyroiditis and had pain in her thyroid and therefore had thyroidectomy, patient is concerned about that - we will repeat thyroid function tests PLAN: - TFT's ordered - TSH, free t4, and thyroid antibodies TPO Medical Decision Making: Problems: Low: Stable chronic illness Data: Unique test(s) ordered: 3+ Medical Decision Making Level: 3 - Low Latasha Bobo, [facility]11-17-2023 Evaluation note* Encounter Date Diagnosis Assessment Notes Treatment Notes Treatment Clinical Notes Mar, Moderate major depression (ICD-10 - F32.1) will add zoloft-she will continue with conuseing, i did warn of nausea and SI. Mar, BMI 40.0-44.9, adult (ICD-10 - Z68.41) Mar, Generalized anxiety disorder (ICD-10 - F41.1) will continue with vistaril and start zoloft. Mar, Chronic GERD (ICD-10 - K21.9) lots of nausea at night- i do think that is related to GERD, will start omeprazole and follow up in 4 weeks-she voices understanding. Mar, Neck fullness (ICD-10 - R22.1) fullness on right side of neck on my exam, she feels lump on left side of neck. will get US. [facility] Other 09-13-2023 NotePatient Education Materials Follows:Disease Viral Respiratory Infection A respiratory infection is an illness that affects part of the respiratory system, such as the lungs, nose, or throat. A respiratory infection that is caused by a virus is called a viral respiratory infection. Common types of viral respiratory infections include: ? A cold. ? The flu (influenza). ? A respiratory syncytial virus (RSV) infection. What are the causes? This condition is caused by a virus. The virus may spread through contact with droplets or direct contact with infected people or their mucus or secretions. The virus may spread from person to person(is contagious). What are the signs or symptoms? Symptoms of this condition include: ? A stuffy or runny nose. ? A sore throat or cough. ? Shortness of breath or difficulty breathing. ? Yellow or green mucus (sputum). Other symptoms may include: ? A fever. ? Sweating or chills. ? Fatigue. ? Achy muscles. ? A headache. How is this diagnosed? This condition may be diagnosed based on: ? Your symptoms. ? A physical exam. ? Testing of secretions from the nose or throat. ? Chest X-ray. How is this treated? This condition may be treated with medicines, such as: ? Antiviral medicine. This may shorten the length of time a person has symptoms. ? Expectorants. These make it easier to cough up mucus. ? Decongestant nasal sprays. ? Acetaminophen or NSAIDs, such as ibuprofen, to relieve fever and pain. Antibiotic medicines are not prescribed for viral infections.This is because antibiotics are designed to kill bacteria. They do not kill viruses. Follow these instructions at home: Managing pain and congestion ? Take naln-yxs-auathaz and prescription medicines only as told by your health care provider. ? If you have a sore throat, gargle with a mixture of salt and water 3?4 times a day or as needed. To make salt water, completely dissolve ??1 tsp (3?6 g) of salt in 1 cup (237 mL) of warm water. ? Use nose drops made from salt water to ease congestion and soften raw skin around your nose. ? Take 2 tsp (10 mL) of honey at bedtime to lessen coughing at night. ? Do not give honey to children who are younger than 1 year. ? Drink enough fluid to keep your urine pale yellow. This helps prevent dehydration and helps loosen up mucus. General instructions ? Rest as much as possible. ? Do not drink alcohol. ? Do not use any products that contain nicotine or tobacco. These products include cigarettes, chewing tobacco, and vaping devices, such as e-cigarettes. If you need help quitting, ask your health care provider. ? Keep all follow-up visits. This is important. How is this prevented? ? Get an annual flu shot. You may get the flu shot in late summer, fall, or winter. Ask your healthcare provider when you should get your flu shot. ? Avoid spreading your infection to other people. If you are sick: ? Wash your hands with soap and water often, especially after you cough or sneeze. Wash for at least 20 seconds. If soap and water are not available, use alcohol-based hand housing property manager. ? Cover your mouth when you cough. Cover your nose and mouth when you sneeze. ? Do not share cups or eating utensils. ? Clean commonly used objects often. Clean commonly touched surfaces. ? Stay home from work or school as told by your health care provider. ? Avoid contact with people who are sick during cold and flu season. This is generally fall and winter. Contact a health care provider if: ? Your symptoms last for 10 days or longer. ? Your symptoms get worse over time. ? You have severe sinus pain in your face or forehead. ? The glands in your jaw or neck become very swollen. ? You have shortness of breath. Get help right away if you: ? Feel pain or pressure in your chest. ? Have trouble breathing. ? Faint or feel like you will faint. ? Have severe and persistent vomiting. ? Feel confused or disoriented. These symptoms may represent a serious problem that is an emergency. Do not wait to see if the symptoms will go away. Get medical help right away. Call your local emergency services (911 in the [place] Do not drive yourself to the hospital. Summary ? A respiratory infection is an illness that affects part of the respiratory system, such as the lungs, nose, or throat. A respiratory infection that is caused by a virus is called a viral respiratory infection. ? Common types of viral respiratory infections include a cold, influenza, and respiratory syncytialvirus (RSV) infection. ? Symptoms of this condition include a stuffy or runny nose, cough, fatigue, achy muscles, sore throat, and fevers or chills. ? Antibiotic medicines are not prescribed for viral infections. This is because antibiotics are designed to kill bacteria. They are not effective against viruses. This informati (more content not included)...[id number] Evaluation note* Encounter Date Diagnosis Assessment Notes Treatment Notes Treatment Clinical Notes Jan, BMI 40.0-44.9, adult (ICD-10 - Z68.41) she reports she continues to gain weight, strong hx of obesity in family. we will try for ozempic. she agrees. we did discuss weight management did not feel she would have the time right now due to work. 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 Living on her own with her boyfriend. Stressed about money. Looking to buy a house. Feels she has a lot going on. She feels she holds emotions in, does not have a close support system. Needs someone to talk to instaed of holding in emotions. she is agreeable to counseling. denies SI. Jan, Mild major depression (ICD-10 - F32.0) see above Jan, Weight gain (ICD-10 - R63.5) see above [facility] Other 08-23-2023 NoteEducation Materials Gastroenterology Constipation, Adult Constipation is when a person has trouble pooping (having a bowel movement). When you have this condition, you may poop fewer than 3 times a week. Your poop (stool) may also be dry, hard, or bigger than normal. Follow these instructions at home: Eating and drinking ? Eat foods that have a lot of fiber, such as: ? Fresh fruits and vegetables. ? Whole grains. ? Beans. ? Eat less of foods that are low in fiber and high in fat and sugar, such as: ? Czech fries. ? Hamburgers. ? Cookies. ? Candy. ? Soda. ? Drink enough fluid to keep your pee (urine) pale yellow. General instructions ? Exercise regularly or as told by your doctor. Try to do 150 minutes of exercise each week. ? Go to the restroom when you feel like you need to poop. Do not hold it in. ? Take mqke-dyj-ghmesyn and prescription medicines only as told by your doctor. These include any fiber supplements. ? When you poop: ? Do deep breathing while relaxing your lower belly (abdomen). ? Relax your pelvic floor. The pelvic floor is a group of muscles that support the rectum, bladder,and intestines (as well as the uterus in women). ? Watch your condition for any changes. Tell your doctor if you notice any. ? Keep all follow-up visits as told by your doctor. This is important. Contact a doctor if: ? You have pain that gets worse. ? You have a fever. ? You have not pooped for 4 days. ? You vomit. ? You are not hungry. ? You lose weight. ? You are bleeding from the opening of the butt (anus). ? You have thin, pencil-like poop. Get help right away if: ? You have a fever, and your symptoms suddenly get worse. ? You leak poop or have blood in your poop. ? Your belly feels hard or bigger than normal (bloated). ? You have very bad belly pain. ? You feel dizzy or you faint. Summary ? Constipation is when a person poops fewer than 3 times a week, has trouble pooping, or has poop that is dry, hard, or bigger than normal. ? Eat foods that have a lot of fiber. ? Drink enough fluid to keep your pee (urine) pale yellow. ? Take eldq-dln-efwpaer and prescription medicines only as told by your doctor. These include any fiber supplements. This information is not intended to replace advice given to you by your health care provider. Make sure you discuss any questions you have with your health care provider. Document Revised: 03/20/2020 Document Reviewed: 03/20/2020 [employer] Patient Education ? 2022 [employer] Abdominal Pain, Adult Many things can cause belly (abdominal) pain. Most times, belly pain is not dangerous. Many cases of belly pain can be watched and treated at home. Sometimes, though, belly pain is serious. Your doctor will try to find the cause of your belly pain. Follow these instructions at home: Medicines ? Take mpof-qsf-fsnjeol and prescription medicines only as told by your doctor. ? Do not take medicines that help you poop (laxatives) unless told by your doctor. General instructions ? Watch your belly pain for any changes. ? Drink enough fluid to keep your pee (urine) pale yellow. ? Keep all follow-up visits as told by your doctor. This is important. Contact a doctor if: ? Your belly pain changes or gets worse. ? You are not hungry, or you lose weight without trying. ? You are having trouble pooping (constipated) or have watery poop (diarrhea) for more than 2?3 days. ? You have pain when you pee or poop. ? Your belly pain wakes you up at night. ? Your pain gets worse with meals, after eating, or with certain foods. ? You are vomiting and cannot keep anything down. ? You have a fever. ? You have blood in your pee. Get help right away if: ? Your pain does not go away as soon as your doctor says it should. ? You cannot stop vomiting. ? Your pain is only in areas of your belly, such as the right side or the left lower part of the belly. ? You have bloody or black poop, or poop that looks like tar. ? You have very bad pain, cramping, or bloating in your belly. ? You have signs of not having enough fluid or water in your body (dehydration), such as: ? Dark pee, very little pee, or no pee. ? Cracked lips. ? Dry mouth. ? Sunken eyes. ? Sleepiness. ? Weakness. ? You have trouble breathing or chest pain. Summary ? Many cases of belly pain can be watched and treated at home. ? Watch your belly pain for any changes. ? Take otfy-evt-eejhcob and prescription medicines only as told by your doctor. ? Contact a doctor if your belly pain changes or gets worse. ? Get help right away if you have very bad pain, cramping, or bloating in your belly. This information is not intended to replace advice given to you by your health care provider. Make sure you discuss any questions you have with your health care provider. Document Revised: 09/11/2019 Document Reviewed: 09/11/19 (more content not included)...[facility] [id number] NotePatient Education Materials Follows: Antibiotic Medicine, Adult Antibiotic medicines are used to treat infections caused by bacteria, such as strep throat and urinary tract infection (UTI). Antibiotic medicines will not work for colds, the flu (influenza), or other illnesses caused by viruses. These medicines work by killing the bacteria that are making you sick. Antibiotics can also have serious side effects. It is important that you take antibiotic medicines safely and only when needed. When do I need to take antibiotics? You may need antibiotics for: ? UTI. ? Strep throat. ? Bacterial sinusitis. ? Meningitis. This infection affects the spinal cord and brain. ? Serious lung infection. You may start antibiotics while your health care provider waits for your results from any tests forpossible infection. Tests may include a culture of your throat, urine, blood, or mucus. Your healthcare provider may change or stop your antibiotic depending on your test results. When are antibiotics not needed? You do not need antibiotics for most common illnesses. These illnesses may be caused by a virus, not by bacteria. You do not need antibiotics for: ? The common cold. ? Influenza. ? Sore throat. ? Discolored mucus. ? Bronchitis. Antibiotics are not always needed for all infections caused by bacteria. Many of these infections clear up without antibiotic treatment. Do not ask for or take antibiotics when they are not necessary. How long should I take my antibiotic? You must take the entire prescription. Continue to take your antibiotic for as long as told by yourhealth care provider. Do not stop taking it even if you start to feel better. If you stop taking ittoo soon: ? You may start to feel sick again. ? Your infection may become harder to treat. Each course of antibiotics needs a different amount of time to work. Some antibiotic courses last only a few days. Some last about a week to 10 days. In some cases, you may need to take antibiotics for a few weeks to completely treat your infection. What if I miss a dose? Try not to miss any doses of medicine. If you miss a dose, call your health care provider or pharmacist for advice. Sometimes it is okay to take the missed dose as soon as possible. Do not take double or extra doses. What are the risks of taking antibiotics? Antibiotics can cause: ? Allergic reactions. ? Nausea. ? Yeast infections. ? Liver problems. Antibiotics can also cause an infection called Clostridioides difficile (C. difficile or C. diff), which causes severe diarrhea. This infection happens when the antibiotics kill the healthy bacteria in your intestines. This allows C. diff to grow. C. diff needs to be treated right away. Let your health care provider know if: ? You develop diarrhea while taking an antibiotic. ? You develop diarrhea after you stop taking an antibiotic. C. diff infection can start weeks afterstopping the antibiotic. Taking an antibiotic also puts you at risk for getting sick in the future with bacteria that do notrespond to medicine (antibiotic-resistant infection). Antibiotics can cause bacteria to change so that if the antibiotic is taken again, the medicine cannot kill the bacteria. These infections can bemore serious and, in some cases, life-threatening. Do antibiotics affect control? control pills may not work while you are on antibiotics. If you are taking control pills, continue taking them as usual and use a second form of control, such as a condom, to avoid unwanted . Continue using the second form of control until your health care provider says you can stop. What else should I know about taking antibiotics? It is important for you to take antibiotics exactly as told. Make sure to: ? Take the correct amount of medicine at the same time each day. ? Ask your health care provider: ? How long to wait between doses. ? If your antibiotic should be taken with food. ? If there are any foods, drinks, or medicines that you should avoid while taking your antibiotics. ? If there are any side effects you should be aware of. ? Use only the antibiotics prescribed for you by your health care provider. Do not use antibiotics prescribed for someone else. ? Drink a large glass of water when taking your antibiotics. Drink enough fluid to keep your urine pale yellow. ? Ask your pharmacist for a syringe, cup, or spoon that properly measures your antibiotics. ? Throw away any leftover medicine. Follow these instructions at home: ? Take idjk-qac-effnfbs and prescription medicines as told by your health care provider. ? Return to your normal activities as told by your health care provider. Ask your health care provider what activities are safe for you. ? Keep all follow-up visits as told by your health care provider. This is important. Contact a health care provider if: ? (more content not included)...[facility] [id number] NotePatient Education Materials Follows: Corneal Abrasion A corneal abrasion is a scratch or injury to the clear covering over the front of the eye (cornea).Your cornea forms a clear dome that protects your eye and helps to focus your vision. Your cornea is made up of many layers, but the surface layer is one of the most sensitive tissues in your body. Acorneal abrasion can be very painful. If a corneal abrasion is not treated, it can become infected and cause an ulcer. This can lead to scarring. A scarred cornea can affect your vision. Sometimes abrasions come back in the same area, even after the original injury has healed. What are the causes? This condition may be caused by: ? A director learning the eye. ? A gritty or irritating substance (foreign body) in the eye. ? Excessive eye rubbing. ? Very dry eyes. ? Certain eye infections. ? Contact lenses that fit poorly or are worn for a long period of time. You can also injure your cornea when putting contact lenses in your eye or taking them out. ? Eye surgery. ? Certain cornea problems may increase the chance of a corneal abrasion. Sometimes, the cause is not known. What are the signs or symptoms? Symptoms of this condition include: ? Eye pain. The pain may get worse when you open and close your eye or when you move your eye. ? A feeling of something stuck in your eye. ? Tearing, redness, and sensitivity to light. ? Having trouble keeping your eye open, or not being able to keep it open. ? Blurred vision. ? Headache. How is this diagnosed? You may work with a health care provider who specializes in diseases and conditions of the eye (aerodynamics teacher). This condition may be diagnosed based on your medical history, symptoms, and an eye exam. Before the eye exam, numbing drops may be put into your eye. You may also have dye put in your eye with a dropper or a small paper strip. The dye makes the abrasion easy to see when your aerodynamics teacher examines your eye with a light. Your aerodynamics teacher may look at your eye through an eye scope (slit lamp). How is this treated? Treatment may vary depending on the cause of your condition, and it may include: ? Washing out your eye. ? Removing any foreign bodies that are in your eye. ? Using antibiotic drops or ointment to treat or prevent an infection. ? Using a dilating drop to decrease inflammation and pain. ? Using steroid drops or ointment to treat redness, irritation, or inflammation. ? Applying a cold, wet cloth (cold compress) or ice pack to ease the pain. ? Taking pain medicine by mouth (orally). In some cases, an eye patch or bandage soft contact lens might also be used. An eye patch should not be used if the corneal abrasion was related to contact lens wear as it can increase the chance of infection in these eyes. Follow these instructions at home: Medicines ? Use eye drops or ointments as told by your health care provider. ? If you were prescribed antibiotic drops or ointment, use them as told by your health care provider. Do not stop using the antibiotic even if you start to feel better. ? Take pjrn-hhy-tubkavq and prescription medicines only as told by your health care provider. ? Ask your health care provider if the medicine prescribed to you: ? Requires you to avoid driving or using heavy machinery. ? Can cause constipation. You may need to take these actions to prevent or treat constipation: ? Drink enough fluid to keep your urine pale yellow. ? Take xnxk-dxb-rudqbew or prescription medicines. ? Eat foods that are high in fiber, such as beans, whole grains, and fresh fruits and vegetables. ? Limit foods that are high in fat and processed sugars, such as fried or sweet foods. Eye patch use ? If you have an eye patch, wear it as told by your health care provider. ? Do not drive or use machinery while wearing an eye patch. Your ability to senior oracle database developer distances will beimpaired. ? Follow instructions from your health care provider about when to remove the patch. General instructions ? Ask your health care provider whether you can use a cold compress on your eye to relieve pain. ? Do not rub or touch your eye. Do not wash out your eye. ? Do not wear contact lenses until your health care provider says that this is okay. ? Avoid bright light and eye strain. ? Keep all follow-up visits as told by your health care provider. This is important for preventing infection and vision loss. Contact a health care provider if: ? You continue to have eye pain and other symptoms for more than 2 days. ? You have new symptoms, such as worse redness, tearing, or discharge. ? You have discharge that makes your eyelids stick together in the morning. ? Your eye patch becomes so loose that you can blink your eye. ? Symptoms return after the original abrasion has healed. Get help right away if: ? You have severe eye pain that does not get better with medicine. ? You have vision loss (more content not included)...[facility] [id number] NoteEducation Materials Cardiovascular Hypertension, Adult High blood pressure (hypertension) is when the force of blood pumping through the arteries is too strong. The arteries are the blood vessels that carry blood from the heart throughout the body. Hypertension forces the heart to work harder to pump blood and may cause arteries to become narrow or stiff. Untreated or uncontrolled hypertension can cause a heart attack, heart failure, a stroke, kidneydisease, and other problems. A blood pressure reading consists of a higher number over a lower number. Ideally, your blood pressure should be below 120/80. The first ( top ) number is called the systolic pressure. It is a measure of the pressure in your arteries as your heart beats. The second ( bottom ) number is called the diastolic pressure. It is a measure of the pressure in your arteries as the heart relaxes. What are the causes? The exact cause of this condition is not known. There are some conditions that result in or are related to high blood pressure. What increases the risk? Some risk factors for high blood pressure are under your control. The following factors may make you more likely to develop this condition: ? Smoking. ? Having type 2 diabetes mellitus, high cholesterol, or both. ? Not getting enough exercise or physical activity. ? Being overweight. ? Having too much fat, sugar, calories, or salt (sodium) in your diet. ? Drinking too much alcohol. Some risk factors for high blood pressure may be difficult or impossible to change. Some of these factors include: ? Having chronic kidney disease. ? Having a family history of high blood pressure. ? Age. Risk increases with age. ? Race. You may be at higher risk if you are . ? Gender. Men are at higher risk than women before age 45. After age 65, women are at higher risk than men. ? Having obstructive sleep apnea. ? Stress. What are the signs or symptoms? High blood pressure may not cause symptoms. Very high blood pressure (hypertensive crisis) may cause: ? Headache. ? Anxiety. ? Shortness of breath. ? Nosebleed. ? Nausea and vomiting. ? Vision changes. ? Severe chest pain. ? Seizures. How is this diagnosed? This condition is diagnosed by measuring your blood pressure while you are seated, with your arm resting on a flat surface, your legs uncrossed, and your feet flat on the floor. The cuff of the bloodpressure monitor will be placed directly against the skin of your upper arm at the level of your heart. It should be measured at least twice using the same arm. Certain conditions can cause a difference in blood pressure between your right and left arms. Certain factors can cause blood pressure readings to be lower or higher than normal for a short period of time: ? When your blood pressure is higher when you are in a health care provider's office than when you are at home, this is called white coat hypertension. Most people with this condition do not need medicines. ? When your blood pressure is higher at home than when you are in a health care provider's office, this is called masked hypertension. Most people with this condition may need medicines to control blood pressure. If you have a high blood pressure reading during one visit or you have normal blood pressure with other risk factors, you may be asked to: ? Return on a different day to have your blood pressure checked again. ? Monitor your blood pressure at home for 1 week or longer. If you are diagnosed with hypertension, you may have other blood or imaging tests to help your health care provider understand your overall risk for other conditions. How is this treated? This condition is treated by making healthy lifestyle changes, such as eating healthy foods, exercising more, and reducing your alcohol intake. Your health care provider may prescribe medicine if lifestyle changes are not enough to get your blood pressure under control, and if: ? Your systolic blood pressure is above 130. ? Your diastolic blood pressure is above 80. Your personal target blood pressure may vary depending on your medical conditions, your age, and other factors. Follow these instructions at home: Eating and drinking ? Eat a diet that is high in fiber and potassium, and low in sodium, added sugar, and fat. An example eating plan is called the DASH (Dietary Approaches to Stop Hypertension) diet. To eat this way: ? Eat plenty of fresh fruits and vegetables. Try to fill one half of your plate at each meal with fruits and vegetables. ? Eat whole grains, such as whole-wheat pasta, brown rice, or whole-grain bread. Fill about one fourth of your plate with whole grains. ? Eat or drink low-fat dairy products, such as skim milk or low-fat yogurt. ? Avoid fatty cuts of meat, processed or cured meats, and poultry with skin. Fill about one fourth of your plate with lean proteins, such as fish, chicken without skin, beans, e (more content not included)...[facility] [id number] NotePatient Education Materials Follows: Otitis Media, Adult Otitis media is a condition in which the middle ear is red and swollen (inflamed) and full of fluid. The middle ear is the part of the ear that contains bones for hearing as well as air that helps send sounds to the brain. The condition usually goes away on its own. What are the causes? This condition is caused by a blockage in the eustachian tube. This tube connects the middle ear tothe back of the nose. It normally allows air into the middle ear. The blockage is caused by fluid or swelling. Problems that can cause blockage include: ? A cold or infection that affects the nose, mouth, or throat. ? Allergies. ? An irritant, such as tobacco smoke. ? Adenoids that have become large. The adenoids are soft tissue located in the back of the throat, behind the nose and the roof of the mouth. ? Growth or swelling in the upper part of the throat, just behind the nose (nasopharynx). ? Damage to the ear caused by a change in pressure. This is called barotrauma. What increases the risk? You are more likely to develop this condition if you: ? Smoke or are exposed to tobacco smoke. ? Have an opening in the roof of your mouth (cleft palate). ? Have acid reflux. ? Have problems in your body's defense system (immune system). What are the signs or symptoms? Symptoms of this condition include: ? Ear pain. ? Fever. ? Problems with hearing. ? Being tired. ? Fluid leaking from the ear. ? Ringing in the ear. How is this treated? This condition can go away on its own within 3?5 days. But if the condition is caused by germs (bacteria) and does not go away on its own, or if it keeps coming back, your doctor may: ? Give you antibiotic medicines. ? Give you medicines for pain. Follow these instructions at home: ? Take xbln-ypl-lfnfluh and prescription medicines only as told by your doctor. ? If you were prescribed an antibiotic medicine, take it as told by your doctor. Do not stop takingit even if you start to feel better. ? Keep all follow-up visits. Contact a doctor if: ? You have bleeding from your nose. ? There is a lump on your neck. ? You are not feeling better in 5 days. ? You feel worse instead of better. Get help right away if: ? You have pain that is not helped with medicine. ? You have swelling, redness, or pain around your ear. ? You get a stiff neck. ? You cannot move part of your face (paralysis). ? You notice that the bone behind your ear hurts when you touch it. ? You get a very bad headache. Summary ? Otitis media means that the middle ear is red, swollen, and full of fluid. ? This condition usually goes away on its own. ? If the problem does not go away, treatment may be needed. You may be given medicines to treat theinfection or to treat your pain. ? If you were prescribed an antibiotic medicine, take it as told by your doctor. Do not stop takingit even if you start to feel better. ? Keep all follow-up visits. This information is not intended to replace advice given to you by your health care provider. Make sure you discuss any questions you have with your health care provider. Document Revised: 08/11/2021 Document Reviewed: 08/11/2021 [employer] Patient Education ? 2021 [employer].[facility] Health [id number] Nurse Note* Carmela Pleitez Ma - 05/28/2022 8:31 AM EST Tobacco Use: Never Was smoking cessation packet given? N/A - Patient is a non-smoker or quit >1 year ago. Was a referral initiated?N/A Patient is a non-smoker documented in [facility] History of Present illness Narrative* Latasha Bobo MD - 05/28/2022 8:24 AM EST [place] [facility] This consult was requested by Mana Aguilar APR* for an opinion regarding thyroid nodule. My final recommendations will be communicated to the requesting provider by way of shared EMR or lettervia the [place] mail. HPI: Sheyla Lea is a 16 year old female presenting with thyroid nodule Per endocrinology note, she has had positive thyroid antibodies since 06/2018, and endorses symptomssuggesting hypothyroidism, including low energy, constipation, weight gain, but most recent TSH levels within normal limits. Associated symptoms include 70-80 lb gain in 2 years and occasional globus sensation. No changes in voice, no dysphagia, odynophagia, fevers, shortness of breath. Family history is significant for maternal grandmother with papillary thyroid cancer with Hurthle cell, paternal grandmother with Graves Disease. She is accompanied by her maternal grandmother during today's visit. Past Medical History: None Past Surgical History: Tonsils and adenoids Current Outpatient Medications Medication Sig Dispense Refill Norgestimate-Ethinyl Estradiol 0.18/0.215/0.25 mg-35 mcg (28) tab 1 No current facility-administered medications for this visit. ALLERGIES No Known Allergies FAMILY HISTORY Problem Relation Age of Onset Obesity Mother Thyroid Mother Obesity Father Hypertension Father Obesity Maternal Grandmother wt was >300lbs prior to bariatric surgery Thyroid Cancer Maternal Grandmother Hypertension Maternal Grandfather other (ALS) Maternal Grandfather other (hyperthyroid) Paternal Grandmother Social History Tobacco Use Smoking status: Never Passive exposure: Yes Smokeless tobacco: Never Tobacco comments: mom & dad both smoke in house Substance Use Topics Alcohol use: No Drug use: No Review of Systems: Eyes - Denies failing vision, double vision Ears - Denies drainage, hearing loss, dizziness, ringing Nose - Denies nosebleeds, drainage, sinus symptoms, nasal obstruction Throat - endorses sensation in throat Lungs - Endorses cough, shortness of breath Heart - Denies chest pain, palpitations Gastrointestinal - Denies stomach pain, nausea, vomiting , diarrhea, bleeding Genitourinary - Denies burning, bleeding, pain or problems passing urine Neurological - Denies convulsions, seizures, memory loss, headaches Endocrine - See HPI REVIEW OF RADIOLOGICAL FILMS AND RECORDS: 04/19/22 US Thyroid/Parathyroid RIGHT LOBE: 6 x 1.9 x 1.7 cm; heterogeneous echogenicity, expected vascular flow LEFT LOBE: 5.2 x 2.1 x 1.6 cm; heterogeneous echogenicity, expected vascular flow ISTHMUS: 0.5 cm NODULE 1 Location: Left mid Size: 0.8 x 0.7 x 0.4 cm Characteristics: Composition: Solid or almost completely solid, 2 points Echogenicity: Hypoechoic, 2 points Shape: Bniio-lzcx-xzjj, 0 points Margin: Lobulated or irregular, 2 points Echogenic foci (Add points for all that apply): Punctate echogenic foci, 3 points Internal vascularity: absent Interval growth: No prior available for comparison Total points / TI-RADS Category: TI-RADS 5 US from 2018 R thyroid lobe - 5.2 x 1.4 x 1.7 cm L thyroid lobe - 4.6 x 1.6 x 1.7 cm LABS: 04/15/22 T4 - 1.1 04/15/22 TSH - 1.950 06/23/18 thyroglobulin - 897 06/23/18 thyroid peroxidase antibody - 195.3 PHYSICAL EXAM: Vitals - None obtained during today's visit Constitutional - General Appearance: well developed, well nourished, without obvious deformities Communication: speaks with a normal voice without hoarseness Head & Face - Overall: no obvious scars, lesions or masses Parotid and submandibular glands: no masses or tenderness Facial strength: normal and equal bilaterally Ear, Nose, Mouth & Throat - Ears: both left and right external auditory canals and TMs are normal, no external deformities Nasal exam: mucosa is pink, septum is midline, visible turbinates are normal on anterior rhinoscopy Mastication: teeth appear intact Oral Cavity and oropharynx: mucosa, hard and soft palates, tongue, tonsil area, posterior pharyngeal wall, lips and gums are without lesions Neck: appears symmetric, and on palpation is without masses or lymphadenopathy Thyroid: slight thyromegaly. No asymmetry or thyroid nodules on palpation Cranial Nerves: II: Pupillary reflexes normal III, IV, : EOM normal V: 1,2,3: normal sensation VII: Normal strength in all divisions IX, X: Normal voice, palatal elevation and sensation XI: Shoulder strength normal XII: Tongue mobility normal Larynx: using the mirror for indirect laryngoscopy, the epiglottic, false cords, true cords, and pyriform sinuses are without lesions and the true vocal cords move normally ASSESSMENT: Sheyla Lea is a 16 year old female with no significant PMH presenting for concern of left thyroid nodule found on recent US. She does endorse globus sensation but I do not have any concern for compressive symptoms due to her thyroid. I performed an US today, and I do not appreciate any calcifications or concerning blood flow in the nodule. The nodule is also quite small. I do not believe there is any indication for FNA biopsy at this time. Images have been saved. However, I would like her to continue monitoring of the nodules. I discussed with her and her grandmother my recommendation to follow up with imaging in 6 months. This does not need to be done by my office. They are planning totransition her to adult endocrinology in the coming months. PLAN: - Follow up in 6 months with repeat thyroid US. Salinas Tam MD for the service of Latasha Bobo MD Otolaryngology Staff Attestation Details as per Dr. Tam's note which I have reviewed and edited. I performed a history and physical examination of the patient and discussed the patient's management with the resident. I agree with the documented findings and treatment plan. The patient is a 16-year-old female who has a family history of thyroid cancer in her maternal grandmother and Graves' disease in her paternal grandmother she has no personal history of radiation andshe has symptoms which could be suggestive of hypothyroidism including constipation weight gain andlow energy. She sometimes feels something in the area of the thyroid but no true compressive symptoms and no voice changes. Clinical examination shows a well-appearing well-developed female in no acute distress her voice isclear and strong her ear nose and throat examination is benign. Her neck examination reveals slightly enlarged thyroid with out distinctly palpable masses there isno palpable lymphadenopathy Neck Ultrasound: 06/02/2022 Ultrasound Machine: ModusP Transducer: Linear 11 MHz Regions examined: Thyroid and cervical lymph nodes Sagittal and transverse views were obtained. Color and power Doppler were applied when indicated. Left Thyroid Lobe: not enlarged - measurements recorded on images. There Is a thyroid nodule that is hypoechoic without calcifications, no increased vascularity, it is in the mid deep lobe and measures 0.6 X 0.51 X 0.84 cm Right Thyroid Lobe: is not enlarged - measurments recorded on images. There are no significant nodules. Isthmus - there is a lobulated nodule or two adjacent nodules that are hypoechioc without calcifications, measuring 0.93 X 0.29 X 0.65 and by 0.59 (seems to be two nodules adjacent to each other). Left neck: benign node in level 3 ovoid, hypoechoic with normal fatty hilum. 0.78 X 0.47 X 1.60 very benign appearing Right neck: without concerning nodes. Procedure performed by Latasha Bobo MD A/P: This is a 16-year-old female with a family history of thyroid cancer who has hypothyroidism symptoms but euthyroid on most recent blood testing. She is going to set up visit with a new sales facilitator now that she is nearly an adult for further evaluation of her fatigue symptoms. She has 2 thyroid nodules 1 in the isthmus and one in the left thyroid lobe however I do not think they are suspicious enough or of the size that I would recommend fine-needle aspiration biopsy recommended follow-up ultrasound in 6 months. Will see me back at that time. Medical Decision Making: Problems: Moderate: New problem with uncertain prognosis Data: Unique test result(s) reviewed: 1 Risk: Low: Low risk from testing/treatment Medical Decision Making Level: 3 - Low Latasha Bobo MD documented in [facility]12-[facility]22 Miscellaneous Notes* Telephone Encounter - Mana Aguilar APRN.CNP - 04/24/2022 11:27 AM EST Called mother to discuss follow up. Received voicemail with identification as Mana Veun. I left a voicemail stating that patient should follow up with adult ENT Dr. Latasha Bobo. Advised that if patient's mother has not heard from office to schedule by the middle of next week, she should call to set up the appointment. I left the scheduling line number for her to call if needed: [phone]. After discussion with Dr. Chaparro, the plan of care is for Sheyla to follow up with adult ENT first. She should be scheduled with Dr. Latasha Bobo. Consult to adult ENT placed with instructions to schedule with Dr. Latasha Bobo. Will send message to scheduling. No active mychart to send message to patient. documented in this encounter[facility]12-[facility]-2022 Miscellaneous Notes* Telephone Encounter - Mana Aguilar APRN.CNP - 04/21/2022 1:16 PM EST Called and spoke to mother of Sheyla about thyroid ultrasound results. Discussed that the nodules inthyroid have grown, which warrants further work up and evaluation to rule out any malignancy. I discussed with mother that Sheyla should follow up with Dr. Chaparro in the [facility] for further evaluation. Discussed that there is no medication needed currently. I discussed with mother that I will be reaching out to scheduling who should be reaching out to her soon with appointment time. All questions answered. Mother indicated understanding and is agreeable to plan of care. I am sending note to Dr. Chaparro and schedulers to reach out to patient to schedule. Mana Aguilar APRN.CNP documented [facility] Miscellaneous Notes* Telephone Encounter - Mana Aguilar APRN.CNP - 04/16/2022 1:40 PM EST Called patient's mother and discussed lab results and plan of care. Discussed that with normal TFTs, she does not need treatment right now. Advised to follow up every 6 months to have thyroid levels drawn. Advised to get thyroid ultrasound to evaluate thyroid nodule. Discussed normal LDL and low HDL, and continuing to encourage active, healthy lifestyle. All questions answered. Mother verbalized understanding and is agreeable to plan of care. Mana Aguilar APRN.CNP documented in this encounter[facility]11-30-2022 Instructions* Patient Instructions* Mana Aguilar APRN.CNP - 04/15/2022 2:17 PM EST Please get labs Please schedule for ultrasound Follow up with nutrition for dietary guidance documented in this encounter[facility]11[facility]22 History of Present illness Narrative* Mana Aguilar APRN.CNP - 04/15/2022 2:01 PM EST Images from the original note were not included. [facility] Division of Pediatrics CLINIC NOTE Pediatric and Adolescent Endocrinology CC: Sheyla is a 16 year old 9 month old followed for thyroid nodule and positive thyroid antibodies. Here with grandmother. No past medical history on file. No past surgical history on file. FAMILY HISTORY Problem Relation Age of Onset Obesity Mother Thyroid Mother Obesity Father Hypertension Father Obesity Maternal Grandmother wt was >300lbs prior to bariatric surgery Thyroid Cancer Maternal Grandmother Hypertension Maternal Grandfather other (ALS) Maternal Grandfather other (hyperthyroid) Paternal Grandmother HPI: Per previous note: Initial presentation was when she saw account support specialist Dr Pleitez for pelvic pain who noticed thyromegaly so ordered US and TFTs. US showed small nodule ([id number]) with benign features and gland was non enlarged. TSH was initially checked in Apr 2018 and found to be notrmal at 2.25uU/mL; her fT4 was normal at 1.1ng/dL. Seen in June of 2018, found to have positive thyroid antibodies but normal TFTs. Has not been seen since. Since last visit, feels that she has low energy, constipation, feels that hair is falling out, especially in shower. Has had some weight gain. Denies dry skin. Denies restlessness, weight loss, sweating, heart palpitations, neck swelling. Menarche at age 10yr. LMP two weeks ago. No family hx of pcos. OCP - has nexplanon currently. Poly symptoms - none Thyroid Fam Hx: mat GM had thyroid Ca and is now hypothyroid s/p treatment Autoimmune Fam Hx: Pat GM with Graves.There is no other family hx of autoimmune disorders such as DM1, lupus, rheumatoid arthritis, vitiligo, or celiac Exercise - does cheer for exercise. Eats fruits and vegetables. Eats fast food about once or twice a week. Occasional sugary drinks. Current Outpatient Medications Medication Sig Dispense Refill Norgestimate-Ethinyl Estradiol 0.18/0.215/0.25 mg-35 mcg (28) tab 1 No current facility-administered medications for this visit. LABS Component Latest Ref Rng & Units 06/23/2018 Thyroglobulin Ab <14.4 IU/mL 897.0 (H) Microsomal Antibody <5.6 IU/mL 195.3 (H) TSI <150 % Normal 38 TSH 0.510 - 4.300 uU/mL 2.470 Free T4 0.8 - 2.1 ng/dL 1.1 Scanned into [facility] from 06/08/2018: FSH 7, LH 3.3 Testosterone 0.44ng/mL TSH 2.25, fT4 1.1 Imaging REVIEW OF SYSTEMS GENERAL: Fatigue, No weight loss, malaise or fevers HEENT: Negative for frequent or significant headaches, No changes in hearing or vision, no nose bleeds or other nasal problems NECK: Negative for lumps, goiter, pain and significant neck swelling RESPIRATORY: Negative for cough, SOB CARDIOVASCULAR: Negative for chest pain, heart palpitations GI:Constipation, No nausea, vomiting, or diarrhea SKIN: Hair loss, Negative for lesions, rash, and itching PSYCH: Negative for sleep disturbance, mood disorder and recent psychosocial stressors. ENDOCRINE: Negative for cold or heat intolerance, polyuria, polydipsia and goiter NEURO: No history of headaches, syncope, or tremors All other reviewed and negative other than HPI. No pediatric history on file. PHYSICAL EXAMINATION: BP 124/74 Pulse 77 Ht 5' 3 (1.60m) Wt 202 lb (91.6kg) LMP 06/09/2018 BMI 35.79 kg/(m^2). Height: 32 %ile (Z= -0.47) based on CDC (Girls, 2-20 Years) Qeexuqx-dqs-xbz data based on Stature recorded on 04/15/2022. Weight: 98 %ile (Z= 2.01) based on CDC (Girls, 2-20 Years) kbgemq-ecx-swq data using vitals from 04/15/2022. BMI: 90% (Z=2.07) Body surface area is 2.02 meters squared. General appearance: Obese, well appearing, alert, in no acute distress, and well-hydrated, well nourished Skin: Skin color, texture, turgor normal, no suspicious rashes or lesions Head: normal Eyes: Anicteric sclera. Pupils are equally round and reactive to light. Extraocular movements are intact. Neck: Supple, no adenopathy; thyroid symmetric, normal size, no bruits Lungs: clear to auscultation no wheezing or rhonchi Heart: RRR without murmur, gallop, or rubs. No ectopy Breast: Not examined due to obvious sex characteristics. Abdomen: Normal abdominal exam, Abdomen soft, non-tender. Bowel sounds normal. No masses, organomegaly : Not examined due to obvious secondary sex characteristics. Neuro: Negative. DISCUSSION And Plan : Sheyla is 16 yr 9 month old with a hx of positive thyroid antibodies, thyroid nodule and obesity. ASSESSMENT/PLAN: 1. Abnormal thyroid blood test - ICD9: 790.6, ICD10: R79.89 (primary diagnosis) - TSH BLD - T4 FREE/FREE THYROX - US THYROID/PARATHYROID -Discussed with patient and grandmother that no tx needed unless TFTs abnormal. Will require routine screening to evaluate thyroid. Patient and grandmother indicated understanding. 2. History of thyroid nodule - ICD9: V12.29, ICD10: Z86.39 - TSH BLD - T4 FREE/FREE THYROX - US THYROID/PARATHYROID -Reordering ultrasound to assess. If abnormal, will have them follow up with Dr. Chaparro. 3. Obesity, pediatric, BMI greater than or equal 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 - ICD9: 278.00, V85.54,ICD10: E66.9, Z68.54 Weight increasing - CONSULT TO PED NUTRITION - HGB A1C - HDL CHOLESTEROL BLD - LDL CHOLESTEROL DIR -Discussed healthy lifestyle, made plan to walk every day for 30 minutes. Denies poly symptoms. Encouraged computer consultant visit. I spent a total of 40 minutes on the date of the service which included preparing to see the patient, cxkq-fr-uram patient care, completing clinical documentation, obtaining and/or reviewing separately obtained history, performing a medically appropriate examination, counseling and educating the pat ient/family/caregiver, and ordering medications, tests, or procedures. Follow up in 6 months. Mana Aguilar APRN-JOSE LUIS cc: [place] [address] [facility] [address] Parent of Sheyla Lea [address] [place] [id number] documented in this encounterNorwalk [facility] Hospital10-06-2022 NotePatient Education Materials Follows: Foot Pain Many things can cause foot pain. Some common causes are: ? An injury. ? A sprain. ? Arthritis. ? Blisters. ? Bunions. Follow these instructions at home: Managing pain, stiffness, and swelling If directed, put ice on the painful area: ? Put ice in a plastic bag. ? Place a towel between your skin and the bag. ? Leave the ice on for 20 minutes, 2?3 times a day. Activity ? Do not stand or walk for long periods. ? Return to your normal activities as told by your health care provider. Ask your health care provider what activities are safe for you. ? Do stretches to relieve foot pain and stiffness as told by your health care provider. ? Do not lift anything that is heavier than 10 lb (4.5 kg), or the limit that you are told, until your health care provider says that it is safe. Lifting a lot of weight can put added pressure on your feet. Lifestyle ? Wear comfortable, supportive shoes that fit you well. Do not wear high heels. ? Keep your feet clean and dry. General instructions ? Take lnth-tgp-zigcvgl and prescription medicines only as told by your health care provider. ? Rub your foot gently. ? Pay attention to any changes in your symptoms. ? Keep all follow-up visits as told by your health care provider. This is important. Contact a health care provider if: ? Your pain does not get better after a few days of self-care. ? Your pain gets worse. ? You cannot stand on your foot. Get help right away if: ? Your foot is numb or tingling. ? Your foot or toes are swollen. ? Your foot or toes turn white or blue. ? You have warmth and redness along your foot. Summary ? Common causes of foot pain are injury, sprain, arthritis, blisters, or bunions. ? Ice, medicines, and comfortable shoes may help foot pain. ? Contact your health care provider if your pain does not get better after a few days of self-care. This information is not intended to replace advice given to you by your health care provider. Make sure you discuss any questions you have with your health care provider. Document Revised: 08/06/2021 Document Reviewed: 08/06/2021 [employer] Patient Education ? 2021 [employer] Ankle Pain The ankle joint holds your body weight and allows you to move around. Ankle pain can occur on either side or the back of one ankle or both ankles. Ankle pain may be sharp and burning or dull and aching. There may be tenderness, stiffness, redness, or warmth around the ankle. Many things can cause ankle pain, including an injury to the area and overuse of the ankle. Follow these instructions at home: Activity ? Rest your ankle as told by your health care provider. Avoid any activities that cause ankle pain. ? Do not use the injured limb to support your body weight until your health care provider says thatyou can. Use crutches as told by your health care provider. ? Do exercises as told by your health care provider. ? Ask your health care provider when it is safe to drive if you have a brace on your ankle. If you have a brace: ? Wear the brace as told by your health care provider. Remove it only as told by your health care provider. ? Loosen the brace if your toes tingle, become numb, or turn cold and blue. ? Keep the brace clean. ? If the brace is not waterproof: ? Do not let it get wet. ? Cover it with a watertight covering when you take a bath or shower. If you were given an elastic bandage: ? Remove it when you take a bath or a shower. ? Try not to move your ankle very much, but wiggle your toes from time to time. This helps to prevent swelling. ? Adjust the bandage to make it more comfortable if it feels too tight. ? Loosen the bandage if you have numbness or tingling in your foot or if your foot turns cold and blue. Managing pain, stiffness, and swelling ? If directed, put ice on the painful area. ? If you have a removable brace or elastic bandage, remove it as told by your health care provider. ? Put ice in a plastic bag. ? Place a towel between your skin and the bag. ? Leave the ice on for 20 minutes, 2?3 times a day. ? Move your toes often to avoid stiffness and to lessen swelling. ? Raise (elevate) your ankle above the level of your heart while you are sitting or lying down. General instructions ? Record information about your pain. Writing down the following may be helpful for you and your health care provider: ? How often you have ankle pain. ? Where the pain is located. ? What the pain feels like. ? If treatment involves wearing a prescribed shoe or insole, make sure you wear it correctly and for as long as told by your health care provider. ? Take hykj-emw-uqttptl and prescription medicines only as told by your health care provider. ? Keep all follow-up visits as told by your health care provider. This is important. (more content not included)...[id number] History general Narrative - Reported* Type Description Date Medical History Hx of ear infections Medical History ingrown toenail Surgical History tubes in bilateral ears 2011 Surgical History tonsillectomy and adenoidectomy 06/2017 Surgical History tubes in bilateral ears 06/2017 [employer] Other Evaluation note* Diagnosis Abnormal thyroid blood test- Primary Nonspecific abnormal results of thyroid function study History of thyroid nodule Personal history of other endocrine, metabolic, and immunity disorders Obesity, pediatric, BMI greater than or equal 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 documented in this encounter [facility] note* Diagnosis Abnormal thyroid blood test- Primary Nonspecific abnormal results of thyroid function study History of thyroid nodule Personal history of other endocrine, metabolic, and immunity disorders documented in this encounter [facility] note* Diagnosis Thyroid nodule- Primary Nontoxic uninodular goiter Abnormal thyroid blood test Nonspecific abnormal results of thyroid function study History of thyroid nodule Personal history of other endocrine, metabolic, and immunity disorders documented in this encounter [facility] noteNo InformationNort [employer] Other Evaluation noteNo assessment information [facility] Work Phone: Evaluation note* Diagnosis Abnormal thyroid blood test Nonspecific abnormal results of thyroid function study History of thyroid nodule Personal history of other endocrine, metabolic, and immunity disorders documented in this encounter [facility] note* Diagnosis Thyroiditis- Primary Thyroiditis, unspecified documented in this encounter [facility] note* Diagnosis Pre-op evaluation- Primary Preoperative examination, unspecified Gastroesophageal reflux disease, unspecified whether esophagitis present Obesity, pediatric, BMI greater than or equal 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 Thyroiditis Thyroiditis, unspecified documented in this encounter [facility] note* Diagnosis PCOS (polycystic ovarian syndrome)- Primary Polycystic ovaries Thyroid nodule Nontoxic uninodular goiter Thyroiditis Thyroiditis, unspecified [facility] Diagnosis Hypothyroidism (acquired)- Primary Unspecified hypothyroidism documented in this encounter [facility] for referral (narrative)* Diagnostic Procedure Only (Routine) - Authorized Specialty Diagnoses / Procedures Referred By Rodger matute Referred To Contact US IMAGING Diagnoses Abnormal thyroid blood test History of thyroid nodule Procedures US THYROID/PARATHYROID US SOFT TISSUE HEAD & NECK REAL TIME IMGE DOCM Mana Aguilar APRN.CNP [address] [id number] Us Imaging Referral ID Status Reason Start Date Expiration Date Visits Requested Visits Authorized [id number] Authorized Auto-Generat ed Referral 2 05/15/2023 1 1 * Consult, Test, Treat (Routine) - Authorized Specialty Diagnoses / Procedures Referred By Rodger matute Referred To Contact Pediatric Nutrition Diagnoses Obesity, pediatric, BMI greater than or equal 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 Procedures CONSULT TO PED NUTRITION OFFICE/OUTPATIENT [facility] 60-74 MINUTES Mana Aguilar APRN.CNP [address] [phone] Referral ID Status Reason Start Date Expiration Date Visits Requested Visits Authorized [id number] Authorized PCP Requested Referral 2 04/15/2023 1 1 [facility] for referral (narrative)* Reason counseling - john if able, if not [facility] anxiety/depression/stress Diagnosis 1 Mild major depressio n (F32.0) Diagnosis 2 Generalized anxiety disorder (F41.1) Referral Organization [facility] Family Edyta Mccoy Referring Provider First Name Aime Referring Provider Last Name [place] Referring Provider Specialty Family [facility] Referred Organization Unknown Facility Referred Provider Specialty Other Medica l Care Referral Priority Routine [place] Other Reason for referral (narrative)* Diagnostic Procedure Only (Routine) - Closed Specialty Diagnoses / Procedures Referred By Rodger matute Referred To Contact US IMAGING Diagnoses Abnormal thyroid blood test History of thyroid nodule Procedures US THYROID/PARATHYROID US SOFT TISSUE HEAD & NECK REAL TIME IMGE DOCMana Adams APRN.MAINTENANCE MACHINIST [address] [phone] Us Imaging [facility]95 Referral ID Status Reason Start Date Expiration Date V isits Requested Visits Authorized [id number] Closed Auto-Generate d Referral 04/15/2022 05/15/2023 1 1 [facility] for referral (narrative)* Outpatient Procedure (Routine) - Pending Review Specialty Diagnoses / Procedures Referred By Rodger matute Referred To Contact [facility] [place] [facility] Diagnoses Thyroiditis Procedures ECG COMPLETE ECG ROUTINE ECG W/LEAST 12 LDS W/I&R Latasha Bobo MD [address] [place] [address] [id number] [place] [address] Referral ID Status Reason Start Date Expiration Date Visits Requested Visits Authorized [id number] Pending Review Auto-Generat ed Referral 08/02/2023 08/01/2024 1 1 [facility] for visit Narrative* Diagnostic Procedure Only (Routine) - Closed Specialty Diagnoses / Procedures Referred By Rodger matute Referred To Contact US IMAGING Diagnoses Abnormal thyroid blood test History of thyroid nodule Procedures US THYROID/PARATHYROID US SOFT TISSUE HEAD & NECK REAL TIME IMGE DOCMana Adams APRN.MAINTENANCE MACHINIST [address] [phone] Us Imaging [facility] Referral ID Status Reason Start Date Expiration Date V isits Requested Visits Authorized [id number] Closed Auto-Generate d Referral 04/15/2022 05/15/2023 1 1 [facility] Summary Purpose Family History No Family History Records FoundNo Family History Records FoundNo Family History Records FoundNo Family History Records FoundNo Family History Records FoundNo Family History Records FoundNo Family History Records Found Advance Directives No Advanced Directives Records Found Advance Directive Response Recorded Date/ Time Advance Directives No December 08 12:51pm Reason for Referral Specialty Diagnoses / Procedures Referred By Rodger matute Referred To Contact Ent - Otolaryngology Diagnoses Abnormal thyroid blood test History of thyroid nodule Procedures CONSULT TO ENT OFFICE/OUTPATIENT [facility] HIGH MDM 60-74 MINUTES Mana Aguilar APRN.[place] [id number] [phone] Referral ID Status Reason Start Date Expiration Date Visits Requested Visits Authorized [id number] Authorized PCP Requested Referral 04/24/2022 04/24/2023 1 1 Chief Complaint and Reason for Visit Chief Complaint flu vaccine Additional Source Comments Source Comments (unrecognize d section and content) In the event this informatio n is protected by the Federal Confidentiality of Alcohol and Drug Abuse Patient Records regulations: The Federal rules restrict any use of the information to criminally investigate or prosecute any alcohol or drug abuse patient.[facility] Hospital[facility] the event this information is protected by the Federal Confidentiality of Alcohol and Drug Abuse Patient Records regulations: The Federal rules restrict any use of the information to criminally investigate or prosecute any alcohol or drug abuse patient.[facility] HospitalIn the event this information is protected by the Federal Confidentiality of Alcohol and Drug Abuse Patient Records regulations: The Federal rules restrict any use of the information to criminally investigate or prosecute any alcohol or drug abuse patient.[facility] HospitalIn the event this information is protected by the Federal Confidentiality of Alcohol and Drug Abuse Patient Records regulations: The Federal rules restrict any use of the information to criminally investigate or prosecute any alcohol or drug abuse patient.[facility] HospitalIn the event this information is protected by the Federal Confidentiality of Alcohol and Drug Abuse Patient Records regulations: The Federal rules restrict any use of the information to criminally investigate or prosecute any alcohol or drug abuse patient.[facility] HospitalIn the event this information is protected by the Federal Confidentiality of Alcohol and Drug Abuse Patient Records regulations: The Federal rules restrict any use of the information to criminally investigate or prosecute any alcohol or drug abuse patient.[facility] HospitalIn the event this information is protected by the Federal Confidentiality of Alcohol and Drug Abuse Patient Records regulations: The Federal rules restrict any use of the information to criminally investigate or prosecute any alcohol or drug abuse patient.[facility] HospitalIn the event this information is protected by the Federal Confidentiality of Alcohol and Drug Abuse Patient Records regulations: The Federal rules restrict any use of the information to criminally investigate or prosecute any alcohol or drug abuse patient.[facility] HospitalIn the event this information is protected by the Federal Confidentiality of Alcohol and Drug Abuse Patient Records regulations: The Federal rules restrict any use of the information to criminally investigate or prosecute any alcohol or drug abuse patient.[facility] HospitalIn the event this information is protected by the Federal Confidentiality of Alcohol and Drug Abuse Patient Records regulations: The Federal rules restrict any use of the information to criminally investigate or prosecute any alcohol or drug abuse patient.[facility] HospitalIn the event this information is protected by the Federal Confidentiality of Alcohol and Drug Abuse Patient Records regulations: The Federal rules restrict any use of the information to criminally investigate or prosecute any alcohol or drug abuse patient.[facility] HospitalIn the event this information is protected by the Federal Confidentiality of Alcohol and Drug Abuse Patient Records regulations: The Federal rules restrict any use of the information to criminally investigate or prosecute any alcohol or drug abuse patient.[facility] HospitalIn the event this information is protected by the Federal Confidentiality of Alcohol and Drug Abuse Patient Records regulations: The Federal rules restrict any use of the information to criminally investigate or prosecute any alcohol or drug abuse patient.[facility] Reason for Visit (unrecogniz ed section and content) Reason Comments Thyroid Problem Reason Comments Results Reason Comments Patient Update Reason Comments New Patient Nodule in thyroid Specialty Diagnoses / Procedures Referred By Contact Referred To Contact Ent - [facility]ol[facility]ology / [facility] Diagnoses Abnormal thyroid blood test History of thyroid nodule Procedures CONSULT TO ENT OFFICE/OUTPATIENT NEW HIGH MDM 60-74 MINUTES Mana Aguilar APRN.MAINTENANCE MACHINIST [address] [place] [address] [facility] [address] [place] [address] Referral ID Status Reason Start Date Expiration Date V isits Requested Visits Authorized [id number] Closed PCP Requested Referral 04/24/2022 04/24/2023 1 1 Reason Comments Appointment LM that appt was res cheduled Reason Comments Results Reason Comments Pre-Op Visit Reason Comments Thyroid Problem Reason Onset Date Comments Refill Request 10/04/2023 Reason Comments Follow Up Post op Care Teams (unrecognized sec tion and content) Lost Charge Card Clerk Relationship Specialty Start Date End Date Jas Salgado [address] [place] [address] [place] [address] PCP - General Family Medicine 04/20/13 Lost Charge Card Clerk Relationship Specialty Start Date End Date Jas Salgado [address] [place] [address] [place] [address] PCP - General Family Medicine 04/20/13 Lost Charge Card Clerk Relationship Specialty Start Date End Date Jas Salgado [address] [place] [address] [place] [address] PCP - General Family Medicine 04/20/13 Lost Charge Card Clerk Relationship Specialty Start Date End Date Jas Salgado [address] [address] [place] [address] PCP - General Family Medicine 04/20/13 Lost Charge Card Clerk Relationship Specialty Start Date End Date Jas Salgado [address] [address] [place] [address] PCP - General Family Medicine 04/20/13 Lost Charge Card Clerk Relationship Specialty Start Date End Date Jas Salgado [address] [place] [address] [place] [address] PCP - General Family Medicine 04/20/13 Team Status: Active Member Role Status Dates Kevin Stokes , DO Primary Care Provider Active Team Status: Inactive Member Role Status Dates Kevin Stokes , DO Primary Care Provider Active Braxton Toussaint , DO [facility] Attending Provider Active Lost Charge Card Clerk Relationship Specialty Start Date End Date Jas Salgado [address] [place] [id number] PCP - General Family Medicine 04/20/13 Lost Charge Card Clerk Relationship Specialty Start Date End Date Aime Goff DO [address] [place] [address] PCP - General Family Medicine 07/09/23 Lost Charge Card Clerk Relationship Specialty Start Date End Date Anita Elmore NP [address] [place] [address] PCP - General Family Medicine 08/17/23 Lost Charge Card Clerk Relationship Specialty Start Date End Date Anita Elmore NP [address] [place] [address] PCP - General Family Medicine 08/17/23 Lost Charge Card Clerk Relationship Specialty Start Date End Date Anita Elmore NP [address] [place] [address] PCP - General Family Medicine 08/17/23 Lost Charge Card Clerk Relationship Specialty Start Date End Date Anita Elmore NP [address] [place] [address] PCP - General Family Medicine 08/17/23 Lost Charge Card Clerk Relationship Specialty Start Date End Date Anita Elmore NP [address] [place] [address] PCP - General Family Medicine 08/17/23 INFORMATION SOURCE (unrecogn ized section and content) DATE CREATED AUTHOR 04/19/2022 [facility] DATE CREATED AUTHOR AUTHOR'S ORGANIZ ATION 02/07/2023 [facility] DATE CREATED AUTHOR AUTHOR'S ORGANIZ ATION 03/13/2023 [facility] DATE CREATED AUTHOR AUTHOR'S ORGANIZ ATION 10/15/2023 [facility] DATE CREATED AUTHOR AUTHOR'S ORGANIZ ATION 10/30/2023 [facility] DATE CREATED AUTHOR AUTHOR'S ORGANIZ ATION 10/30/2023 [facility] DATE CREATED AUTHOR AUTHOR'S ORGANIZ ATION 12/22/2023 [facility] EPIC Goals (unrecognized section and content) Goals may be documented in a n alternate section FOR RECORDS PERTAINING TO PATIENTS WHO ARE OR HAVE BEEN ENROLLED IN A CHEMICAL DEPENDENCY/SUBSTANCEABUSE PROGRAM, SOME INFORMATION MAY BE OMITTED. This clinical summary was aggregated from multiple sources. Caution should be exercised in using it in the provision of clinical care. This summary normalizes information from multiple sources, and as a consequence, information in this document may materially change the coding, format and clinical context of patient data. In addition, data may be omitted in some cases. CLINICAL DECISIONS SHOULD BE BASED ON THE PRIMARY CLINICAL RECORDS. [employer] provides no warranty or guarantee of the accuracy or completeness of information in this document.
[2024-01-14 06:10] LABS: Basophils Percent Auto 0.8 % (0.2-2.0); Eosinophils Absolute Auto 0.1 10^3/uL (0.0-0.7); Eosinophils Percent Auto 1.7 % (0.9-7.0); Hematocrit 40.6 % (36.0-48.0); Hemoglobin 13.6 g/dL (12.0-16.0); Immature Granulocytes Abs Auto 0.01 10^3/uL (0.00-0.03); Immature Granulocytes Pct Auto 0.2 % (0.0-0.5); Lymphocytes Absolute Auto 1.9 10^3/uL (1.2-3.8); Mean Corpuscular HGB Conc 33.5 g/dL (29.9-35.2); Mean Corpuscular Hemoglobin 27.5 pg (26.7-34.0); Mean Platelet Volume 10.4 fL (9.5-13.5); Monocytes Absolute Auto 0.5 10^3/uL (0.3-0.8); Monocytes Percent Auto 10.4 % (1.7-12.0); Neutrophils Absolute Auto 2.3 10^3/uL (1.4-6.5); Neutrophils Percent Auto 47.9 % (43.0-75.0); Platelet Count 223 10^3/uL (150-450); Red Blood Count 4.95 10^6/uL (4.20-5.40); Red Cell Distribution Width 13.2 % (11.0-15.0); White Blood Count 4.8 10^3/uL (4.0-11.0)
[2024-01-14 06:30] LABS: HCG Quantitative <1 mIU/mL
[2024-01-14] MEDS: LACTATED RINGER'S SOLUTION 1,000 ML 50 ML IV ×2 (06:53→09:31)
--- NOTE | 2024-01-14 08:32 | P.ON_ITS ---
Brief Operative Note Date of procedure: 01/14/24 Pre-op diagnosis general: pelvic pain Post-op diagnosis: same as pre-op Anesthesia: BURTON Surgeon: Gerardo Meredith Track Broom Operator: Junie Dubois Estimated blood loss (mL): 5 Pathology: other (pelvic fluid) Condition: stable Disposition: PACU Urinary Catheter Management Urinary Catheter Management Urethral: Cath placed during this visit: no
[2024-01-14] MEDS: HYDROMORPHONE HCL 0.5 MG/0.5 ML SYRINGE IV ×2 (09:06→09:11)
[2024-01-14] MEDS: HALOPERIDOL LACTATE 5 MG/ML VIAL IV (09:27)
--- NOTE | 2024-01-14 09:51 | PC.NURSE ---
0927- Very very tearful and anxious. Reassurance given. Dr. Reynolds aware. New order received and patient medicated with Haldol as ordered. Patient placed on O2 at 2l/min via nc.
[2024-01-14] MEDS: HYDROCODONE/ACET 5-325 MG TABLET 1 TAB PO (10:20)
--- NOTE | 2024-01-14 11:22 | PC.NURSE ---
(1100) Patient still c/o anxiety but refuses anything for anxiety at present time. Patient encouraged to rest. Patient back to bed. Family member at bedside.
--- NOTE | 2024-01-14 11:42 | PC.NURSE ---
1139- Patient requesting to get her Zoloft that she takes daily while here. Dr. Mason called and new order received.
[2024-01-14] MEDS: SERTRALINE HCL 100 MG TABLET PO (11:46)
--- NOTE | 2024-01-14 11:49 | PC.NURSE ---
1146- Medicated with Zoloft as ordered.
== END 2024-01-14 12:03 | disposition home or self-care (01) ==
PROVIDERS: PCP Nurse Practitioner Family; Visit Provider Obstetrics & Gynecology
PROC: (CPT 840; principal; 2024-01-14 07:30)
DX: R10.2 Pelvic and perineal pain (principal); N94.10 Unspecified dyspareunia; E28.2 Polycystic ovarian syndrome; K21.9 Gastro-esophageal reflux disease without esophagitis; E89.0 Postprocedural hypothyroidism
CPT/HCPCS: 49320; 36415; 84702; 85025; 99999; J1100; J1170; J1630; J1885; J2405; J2704; J3010

== ENCOUNTER 2024-02-02 14:15 | Emergency (ER) | payer BC, SELFPAY ==
[2024-02-02 14:22] VITALS: BP 137/82; PULSE 109; TEMP 36.6; O2SAT 98; BMI 35.6
--- NOTE | 2024-02-02 14:40 | CT_ITS ---
The [address] [address] Patient Name: SACHA HA MRN: [id number] date: 2005 Sex: F Assigned Patient Location: Current Patient Location: Accession/Order Number: [id number] Exam Date: 02/02/2024 14:52 Report Date: 02/02/2024 17:43 At the request of: SANDRITA MANTILLA Procedure: CT soft tissue neck wo con CT NECK WITHOUT CONTRAST, 02/02/2024 HISTORY: Difficulty swallowing. Recent intubation for surgery. COMPARISON: None. TECHNIQUE: Noncontrast axial CT images obtained through the neck. Reconstructions obtained in the sagittal and coronal planes. Dose reduction techniques were achieved by using automated exposure control and/or adjustment of mA and/or kV according to patient size and/or use of iterative reconstruction technique. FINDINGS: The visualized intracranial contents are unremarkable. Paranasal sinuses clear. Middle ear cavities and mastoid air cells are clear. Skull base is intact. Orbital contents normal. Fitting Room Attendant spaces are normal. Parotid glands normal. Submandibular glands normal. The tongue and floor of the mouth are normal. Nasopharynx, oropharynx and retropharyngeal space are unremarkable. Epiglottis normal. Vocal cords are symmetric. There is no laryngeal edema. No laryngeal mass. There are postoperative changes from prior thyroidectomy. The visualized portion of the trachea and esophagus are unremarkable. There is no lymphadenopathy. No masses. Lung apices clear. Osseous structures unremarkable. No degenerative changes in the cervical spine. CT/CT soft tissue neck wo con IMPRESSION: 1. Surgical clips are noted from thyroidectomy. 2. No acute findings in the neck. No neck mass or lymphadenopathy. 3. No abnormality involving the airway to the extent visualized. Electronically authenticated by: EMMA GARCIA Date: 02/02/2024 17:43
--- NOTE | 2024-02-02 14:44 | PC.NURSE ---
this patient states my pills are caught in my throat onset 5 days ago. this patient able to speak full sentences, no visible drooling also this patient drink and eat with any problems. this patient shows no visible signs of distress
--- NOTE | 2024-02-02 14:49 | PC.NURSE ---
this patient informed of plan of care: CT neck, this patient voices no concerns or question at this time
--- NOTE | 2024-02-02 15:00 | PC.NURSE ---
this patient is back from ct dept, and patient updated that now we are waiting on ct results to come back. at this time this patient voices no concerns, or needs and this patient shows no signs of distress
--- NOTE | 2024-02-02 15:02 | ED.GENADUL1 ---
HPI HPI - General Adult General Chief complaint: Neck Pain/Injury Stated complaint: HARD TIME SWALLOWING Time Seen by Provider: 02/02/24 14:20 Source: patient Mode of arrival: walk-in Limitations: no limitations History of Present Illness HPI narrative: Patient presents to ED complaining of feeling like her pills are getting stuck in her throat. She said since Wednesday she has had difficulty swallowing her pills. She said she takes about 10 pills a day and usually takes them and a whole handful. She said recently they feel like they have been getting stuck. She said she then tried to take them 1 at a time but they still feel like they are getting stuck. She is able to eat and drink past it but she said she feels like it is still stuck. She was intubated on January 13 for an exploratory lap surgery. She did not have any throat pain or neck pain or difficulty swallowing after that procedure, I just started this past Wednesday. No fevers, no pain, she just reports there is so feels like there is pills stuck in her throat. Related Data Home Medications ?Medication ?Instructions ?Recorded ?Confirmed clindamycin 1 %-benzoyl peroxide 5 1 applic topical DAILY 12/31/23 01/14/24 % topical gel hydroxyzine HCl 10 mg tablet 10 mg PO Q8H PRN anxiety 12/31/23 01/14/24 levothyroxine 200 mcg tablet 200 mcg PO DAILY 12/31/23 01/14/24 metformin 500 mg tablet 500 mg PO DAILY 12/31/23 01/14/24 minocycline 50 mg capsule 50 mg PO Q12H 12/31/23 01/14/24 omeprazole 40 mg capsule,delayed 40 mg PO DAILY PRN heartburn 12/31/23 01/14/24 release ondansetron 4 mg disintegrating 4 mg translingual Q12H PRN nausea 12/31/23 01/14/24 tablet and vomiting phentermine 37.5 mg tablet 37.5 mg PO DAILY 12/31/23 01/14/24 sertraline 100 mg tablet 100 mg PO DAILY 12/31/23 12/31/23 Previous Rx's ?Medication ?Instructions ?Recorded hydrocodone 5 mg-acetaminophen 325 1 tab PO Q4H PRN pain 4 days #16 01/14/24 mg tablet tabs ibuprofen 800 mg tablet 800 mg PO Q8H PRN pain 14 days #40 01/14/24 tabs Allergies Allergy/AdvReac Type Severity Reaction Status Date / Time No Known Drug Allergies Allergy Verified 01/14/24 06:27 Opioid HPI Opioid Management Most Recent Opioid Data: Last Pain Scale 4 01/14/24 12:03 Review of Systems ROS Status of ROS 10 or more systems reviewed and unremarkable except as noted in history and below PFSH PFSH Medical History (Updated 02/02/24 @ 15:39 by Vicki Willson DO) Depression ?F32.A - Depression, unspecified (ICD-10) Panic attacks ?F41.0 - Panic disorder [episodic paroxysmal anxiety] (ICD-10) Anxiety ?F41.9 - Anxiety disorder, unspecified (ICD-10) Insomnia ?G47.00 - Insomnia, unspecified (ICD-10) COVID-19 ?U07.1 - COVID-19 (ICD-10) Dyspareunia Pelvic pain ?R10.2 - Pelvic and perineal pain (ICD-10) Nausea ?R11.0 - Nausea (ICD-10) GERD (gastroesophageal reflux disease) ?K21.9 - Gastro-esophageal reflux disease without esophagitis (ICD-10) Thyroid nodule ?E04.1 - Nontoxic single thyroid nodule (ICD-10) PCOS (polycystic ovarian syndrome) ?E28.2 - Polycystic ovarian syndrome (ICD-10) Surgical History (Updated 12/31/23 @ 10:24 by Mana Ulloa NP) History of myringotomy ?Z98.890 - Other specified postprocedural states (ICD-10) History of tonsillectomy and adenoidectomy ?Z90.89 - Acquired absence of other organs (ICD-10) History of thyroidectomy (09/03/23) ?E89.0 - Postprocedural hypothyroidism (ICD-10) Family History (Updated 12/31/23 @ 10:24 by Mana Ulloa NP) Other Family history of breast cancer Family history of heart disease Family history of hypertension Family history of seizures Social History (Updated 01/14/24 @ 06:28 by Katie Horton) Within the past year, how often did you have a drink containing alcohol: never Score interpretation: A score less than 3 is consistent with normal alcohol consumption. 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 Respiratory: Lungs CTA, respirations non labored. Extremities: no deformity, no trauma. Neurological: oriented x 4, LOC appropriate for age. Posterior pharynx is not erythematous, no swelling no foreign body seen. No stridor no wheezing Constitutional Vital Signs, click to edit/add: Last Vital Signs Temp 97.8 F 02/02/24 14:22 Pulse 109 H 02/02/24 14:22 Resp 17 02/02/24 14:22 BP 137/82 02/02/24 14:22 Pulse Ox 98 02/02/24 14:22 Course Vital Signs Vital signs: Vital Signs Temperature 97.8 F 02/02/24 14:22 Pulse Rate 109 H 02/02/24 14:22 Respiratory Rate 17 02/02/24 14:22 Blood Pressure 137/82 02/02/24 14:22 Pulse Oximetry 98 02/02/24 14:22 Temperature 97.8 F 02/02/24 14:22 Pulse Rate 109 H 02/02/24 14:22 Respiratory Rate 17 02/02/24 14:22 Blood Pressure 137/82 02/02/24 14:22 Pulse Oximetry 98 02/02/24 14:22 Medical Decision Making MDM Narrative Medical decision making narrative: CarePatient's CT is negative for any obstructive foreign body abscess inflammation or any other concerning finding. Possible irritation from the previously lodged pill that is since dissolved or gone all the way down. Patient instructed to continue eating and drinking as tolerated. Follow-up with family doctor or GI for scope if symptoms do not improve. She is comfortable with care plan for home Differential Diagnosis Differential Diagnosis: Esophageal foreign body, inflammation in the esophagus, GERD, Esophageal st Imaging Data Chest x-ray: Radiologist's impression: ITS Impressions Soft Tissue Neck CT 02/02/24 14:40 IMPRESSION: 1. Surgical clips are noted from thyroidectomy. 2. No acute findings in the neck. No neck mass or lymphadenopathy. 3. No abnormality involving the airway to the extent visualized. Electronically authenticated by: EMMA GARCIA Date: 02/02/2024 15:29 Discharge Plan Discharge Chief Complaint: Neck Pain/Injury Clinical Impression: Foreign body sensation in throat Patient Disposition: Home, Self-Care Time of Disposition Decision: 15:39 Condition: Good Mode of Transportation: Private Vehicle Prescriptions / Home Meds: No Action metformin 500 mg tablet 500 mg PO DAILY phentermine 37.5 mg tablet 37.5 mg PO DAILY minocycline 50 mg capsule 50 mg PO Q12H hydroxyzine HCl 10 mg tablet 10 mg PO Q8H PRN (Reason: anxiety) sertraline 100 mg tablet 100 mg PO DAILY omeprazole 40 mg capsule,delayed release(DR/EC) 40 mg PO DAILY PRN (Reason: heartburn) ondansetron 4 mg tablet,disintegrating 4 mg translingual Q12H PRN (Reason: nausea and vomiting) clindamycin-benzoyl peroxide 1-5 % gel 1 applic TOPICAL DAILY levothyroxine 200 mcg tablet 200 mcg PO DAILY ibuprofen 800 mg tablet 800 mg PO Q8H PRN (Reason: pain) 14 Days Qty: 40 0RF hydrocodone-acetaminophen 5-325 mg tablet 1 tab PO Q4H PRN (Reason: pain) 4 Days Qty: 16 0RF Print Language: Portuguese Instructions: Esophageal Foreign Body (ED) Referrals: MAXWELL ELMORE [Primary Care Provider] - 1 week RAKESH BIANCHI [Physician] - 1 week
[2024-02-02 16:04] VITALS: BP 109/68; PULSE 83; TEMP 36.7; O2SAT 98
== END 2024-02-02 15:57 | disposition home or self-care (01) ==
PROVIDERS: Emergency Provider Emergency Medicine; PCP Nurse Practitioner Family
DX: R09.A2 Foreign body sensation, throat (principal)
CPT/HCPCS: 70490; 99284

== ENCOUNTER 2024-03-14 12:43 | Outpatient (RCR) | payer BC, SELFPAY ==
[2024-03-14 13:22] LABS: HCG Quantitative <1 mIU/mL
[2024-03-15 16:52] LABS: HCG Quantitative <1 mIU/mL
== END 2024-03-16 12:09 | disposition home or self-care (01) ==
LOC: LAB 12:43
PROVIDERS: PCP Nurse Practitioner Family; Visit Provider Obstetrics & Gynecology
DX: N92.6 Irregular menstruation, unspecified (principal)
CPT/HCPCS: 36415; 84702

== ENCOUNTER 2024-03-17 12:12 | Outpatient (RCR) | payer BC, SELFPAY ==
[2024-03-17 12:58] LABS: HCG Quantitative <1 mIU/mL
[2024-03-20 13:29] LABS: HCG Quantitative <1 mIU/mL
== END 2024-05-16 23:59 | disposition home or self-care (01) ==
LOC: LAB 12:12
PROVIDERS: PCP Nurse Practitioner Family; Visit Provider Obstetrics & Gynecology
DX: N92.6 Irregular menstruation, unspecified (principal)
CPT/HCPCS: 36415; 84702

== ENCOUNTER 2024-07-04 07:41 | Outpatient (OUT) | payer BC, SELFPAY ==
[2024-07-04 08:09] LABS: Basophils Absolute Auto 0.1 10^3/uL (0.0-0.1); Eosinophils Absolute Auto 0.2 10^3/uL (0.0-0.7); Eosinophils Percent Auto 2.9 % (0.9-7.0); Hematocrit 41.2 % (36.0-48.0); Hemoglobin 13.8 g/dL (12.0-16.0); Immature Granulocytes Abs Auto 0.01 10^3/uL (0.00-0.03); Immature Granulocytes Pct Auto 0.2 % (0.0-0.5); Lymphocytes Absolute Auto 1.9 10^3/uL (1.2-3.8); Lymphocytes Percent Auto 36.2 % (20.5-60.0); Mean Corpuscular HGB Conc 33.5 g/dL (29.9-35.2); Mean Corpuscular Hemoglobin 27.9 pg (26.7-34.0); Mean Corpuscular Volume 83.4 fL (81.0-99.0); Mean Platelet Volume 10.5 fL (9.5-13.5); Monocytes Absolute Auto 0.4 10^3/uL (0.3-0.8); Monocytes Percent Auto 8.3 % (1.7-12.0); Neutrophils Absolute Auto 2.7 10^3/uL (1.4-6.5); Neutrophils Percent Auto 51.4 % (43.0-75.0); Platelet Count 261 10^3/uL (150-450); Red Blood Count 4.94 10^6/uL (4.20-5.40); Red Cell Distribution Width 12.6 % (11.0-15.0); White Blood Count 5.2 10^3/uL (4.0-11.0)
[2024-07-04 08:25] LABS: Estimated Average Glucose 111 mg/dL; Glycohemoglobin A1C 5.5 % (4.5-6.2)
[2024-07-04 08:41] LABS: Alanine Aminotransferase 22 U/L (14-59); Albumin Globulin Ratio 1.1; Albumin Level 3.8 g/dL (3.4-5.0); Alkaline Phosphatase 69 U/L (46-116); Anion Gap 12.7; Aspartate Amino Transferase 17 U/L (15-37); BUN Creatinine Ratio 12.7; Bilirubin Total 0.5 mg/dL (0.2-1.0); Calcium 9.2 mg/dL (8.5-10.1); Carbon Dioxide 25.3 mmol/L (21.0-32.0); Chloride 105 mmol/L (98-107); Estimated GFR (African America >60 (>=60 mL/min/1.73m^2); Estimated GFR (Non-African Ame >60 (>=60 mL/min/1.73m^2); Free T3 3.75 pg/mL (2.18-3.98); Globulin 3.5 g/dL; Glucose 92 mg/dL (74-106); Sodium 139 mmol/L (136-145); Thyroid Stimulating Hormone 1.491 uIU/mL (0.358-3.740); Total Protein 7.3 g/dL (6.4-8.2)
== END 2024-07-04 07:42 | disposition home or self-care (01) ==
LOC: LAB 07:41
PROVIDERS: PCP Family Medicine; Visit Provider Family Medicine
DX: Z00.00 Encounter for general adult medical examination without abnormal findings (principal); E28.2 Polycystic ovarian syndrome; E03.9 Hypothyroidism, unspecified; Z79.899 Other long term (current) drug therapy
CPT/HCPCS: 36415; 80053; 83036; 84436; 84443; 84481; 85025

== ENCOUNTER 2024-11-13 15:05 | Outpatient (OUT) | payer BC, SELFPAY ==
[2024-11-13 17:48] LABS: Thyroid Stimulating Hormone 12.103 uIU/mL (0.358-3.740)
[2024-11-13 17:55] LABS: HCG Quantitative 481 mIU/mL
== END 2024-11-13 15:06 | disposition home or self-care (01) ==
LOC: LAB 15:08
PROVIDERS: PCP Family Medicine; Visit Provider Obstetrics & Gynecology
DX: Z98.890 Other specified postprocedural states (principal); Z90.89 Acquired absence of other organs; Z32.01 Encounter for pregnancy test, result positive
CPT/HCPCS: 36415; 84443; 84702

== ENCOUNTER 2024-11-15 12:19 | Emergency (ER) | payer BC, SELFPAY ==
--- OUTSIDE RECORDS SUMMARY | 2024-07-05 07:15 | XMS_ITS ---
Author Organization The [facility] in [place] Address [address] [place] [address] Care Team Providers Care Home Care Companion Name Role Phone Blair Dai Primary Care Provider Allergies No Known Allergies REASON FOR VISIT stomach issues- has had troubles with diarrhea and constipation whole life- has had hemorrhoids- has had blood when wiping- stomach cramping/ nausea/ cant sleep, Athletes foot, right worse than left-has had creams, bought new socks- seems to be better then flares- blisters Medications Medication SIG (Take, Route, Frequency, Duration) Notes Start Date End Date Status Famotidine 40 MG 1 tablet Orally Once a day for 30 day(s) 07/05/2024 Active Hyoscyamine Sulfate 0.125 MG 1-2 tabs SL SL every 4 hrs PRN abd pain 07/05/2024 Active Venlafaxine HCl ER 37.5 MG Oral for 90 Days Active Pantoprazole Sodium 20 MG TAKE 1 TABLET (20 MG TOTAL) BY MOUTH IN THE MORNING Oral for 90 Days Active Ondansetron 4 MG Oral for 6 Days Active metFORMIN HCl 500 MG 1 tablet with a cristina l Oral BID for 90 days Active Levothyroxine Sodium 175 MCG 1 tablet in the morning on an empty stomach Oral Once a day for 30 days Active Clindamycin Phos-Benzoyl Perox 1-5 % 1 application External BID for 30 days PRN Active buPROPion HCl ER (SR) 150 MG TAKE 1 TABLET BY MOUTH EVERY DAY Oral for 90 Days Active Fluocinonide 0.05 % 1 application 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 07/05/2024 Active Social History Tobacco Use: Social History Observation Description Date Details (start date - stop date) Never Smoker NA - NA Tobacco Control (Standard) Question Answer Notes Tobacco use: Nonsmoker Problems Problem Type SNOMED Code ICD Code Onset Dates Problem Status W/U Status Risk Notes Problem Irritable bowel (K58.9) Active confirmed Problem Gastroesophageal reflux disease (694609751) GERD without esophagitis (K21.9) Active confirmed Vital Signs Weight 216.0 lbs 07/05/2024 Height 63 in 07/05/2024 Blood pressure systolic 112 mm Hg 07/05/19 25 Blood pressure diastolic 82 mm Hg 025 BMI 38.26 kg/m2 07/05/2024 BMI Percentile 97.98 % 07/05/2024 Encounters Encounter Location Date Provider Diagnosis [facility] [address] [place] [address] 07/05/2024 Blair Hoarya Irritable bowel K58. 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 07/05/2024 Progress Notes * Sheyla LEADOB: 5 (19 yo F)Acc No.[id number]:07/05/2024 Progress Note Patient: Sheyla JO Provider: Kenya Dai ([facility])MD :2005 A ge:19 Y S ex:Female Date:07/05/2024 Address:[address] [place], [place] [id number] Check In:11:17 AM ESTCheck O ut:11:47 AM EST Subjective: * Chief Complaints: * S tomach issues- has had troubles with diarrhea and constipation whole life- has had hemorrhoids- has had blood when wiping- stomach cramping/ nausea/ cant sleepAthletes foot, right worse than left- has had creams, bought new socks- seems to be better then flares- blisters * HPI: D epression Screening: PHQ-2 (2015 Edition) L ittle interest or pleasure in doing things??Not at all F eeling down, depressed, or hopeless? N ot at all T otal Score 0 Hemorrhoeds acting up - diarrhea - acing up - sound lke irritabel bowel had seen GI in the past - not tried levsin in the past. * ROS: E ENT: hearing changes d enies. v isual changes d enies.?non-healing mouth sores d enies. s wollen glands or neck lumps d enies. h oarseness d enies. s ore throat d enies. d ifficulty swallowing d enies. n ose bleeds d enies. n torrey congestion d enies. e ar ache d enies. e ar discharge?denies. r inging in ears d enies. l ight sensitivity d enies. e ye pain d enies. b lurring d enies. e ye irritation d enies. d ouble vision d enies.?vision loss d enies. G eneral/Constitutional: Sweats: D enies. F atigue d enies. S leep problems d enies. A norexia d enies. M alaise d enies. W eight loss d enies.?Fatigue or Weakness d enies. F ever or Chills d enies. C ardiovascular: Shortness of Breath w/lying flat d enies. L ightheadedness/dizziness d enies. C hest tightness/ heavy pressure d enies. S welling of legs, ankles, or feet d enies. W aking up with shortness of breath d enies. C hest pain denies. P alpitations d enies. W eight gain d enies. R espiratory: Chronic or frequent cough d enies. C oughing up blood?denies. D ifficulty breathing d enies. P roductive cough d enies. S noring?denies. S hortness of breath that awakens from sleep (PND) d enies. C hest pain d enies. S putum production d enies. W heezing d enies. M usculoskeletal: Joint pain d enies. J oint Fluid d enies. B ack pain d enies. K nee pain d enies. N rhonda pain d enies. J oint Stiffness d enies. M uscle cramps d enies. W eakness of muscles d enies. A rthritis d enies. M uscle aches d enies. P ain in shoulder(s) d enies. S wollen joints d enies. * Active Problem List K21.9 Acid reflux Modified On:04/07/2024/U Status:confirmed E28.2 PCOS (polycystic ova perla syndrome) Modified On:04/07/2024/U Status:confirmed Z00.00 Well adult Modified On:04/07/2024/U Status:confirmed E03.9 Hypothyroid Modified On:04/07/2024/U Status:confirmed K58.9 Irritable bowel Modified On:07/05/2024/U Status:confirmed K21.9 GERD without esophag itis Modified On:07/05/2024/U Status:confirmed * Medical History: * Surgical History: T hyroidectomy 09/07diagnostic lap 01/07EGD 02/07Tonsillectomy * Hospitalization/Major Diagno stic Procedure: D enies Past Hospitalization * Family History: F ather: alive. M other: alive. B rother(s): alive, seizure disorder. S ister(s): alive. 6 brother(s) , 3 sister(s) - healthy. . * Social History: T obacco Use: T obacco Control (Standard) T obacco use: N onsmoker * Medications: T akingbuPROPion HCl ER (SR) 150 MG Tablet Extended Release 12 Hour TAKE 1 TABLET BY MOUTH EVERY DAY Oral Clindamycin Phos-Benzoyl Perox 1-5 % Gel 1 application External BID , Notes to Pharmacist: PRNLevothyroxine Sodium 175 MCG Tablet 1 tablet in the morning on an empty stomach Oral Once a day metFORMIN HCl 500 MG Tablet 1 tablet with a meal Oral BID Ondansetron 4 MG Tablet Disintegrating Oral Pantoprazole Sodium 20 MG Tablet Delayed Release TAKE 1 TABLET (20 MG TOTAL) BY MOUTH IN THE MORNING Oral Venlafaxine HCl ER 37.5 MG Capsule Extended Release 24 Hour Oral Taking buPROPion HCl ER (SR) 150 MG Tablet Extended Release 12 Hour TAKE 1 TABLET BY MOUTH EVERY DAY Oral Taking Clindamycin Phos-Benzoyl Perox 1-5 % Gel 1 application External BID , Notes to Pharmacist: PRNTaking Levothyroxine Sodium 175 MCG Tablet 1 tablet in the morning on an empty stomach Oral Once a day Taking metFORMIN HCl 500 MG Tablet 1 tablet with a meal Oral BID Taking Ondansetron 4 MG Tablet Disintegrating Oral Taking Pantoprazole Sodium 20 MG Tablet Delayed Release TAKE 1 TABLET (20 MG TOTAL) BY MOUTH IN THE MORNING Oral Taking Venlafaxine HCl ER 37.5 MG Capsule Extended Release 24 Hour Oral DiscontinuedMinocycline HCl 50 MG Capsule 1 capsule Oral BID Phentermine HCl 37.5 MG Tablet TAKE 1 TABLET BY MOUTH EVERY DAY IN THE MORNING.TAKE BEFORE MEALS Oral Medication List reviewed and reconciled with the patientDiscontinued Minocycline HCl 50 MG Capsule 1 capsule Oral BID Discontinued Phentermine HCl 37.5 MG Tablet TAKE 1 TABLET BY MOUTH EVERY DAY IN THE MORNING.TAKE BEFORE MEALS Oral Medication List reviewed and reconciled with the patient * Allergies: N .K.D.A.no[Allergies Verified] Objective: * Vitals: W t:216.0lbs, Ht: 63 in, BP:112/82mm Hg, BMI:38.26Index, Ht-cm: 160.02 cm, Wt-k.98 kg, Wt %: 98.47 %, BMI %: 97.98 %, Ht %: 30.43 %. * Examination: P hysical Exam: GENERAL: w ell developed, well nourished, in no acute distress. HEAD: n ormocephalic/atraumatic. EYES: p upils equal, round and reactive to light, conjunctivae and sclerae normal. EARS: n o deformity or lesion of external ear, canals and TM appear normal bilaterally, TM's intact, not inflamed with normal light reflex, hearing grossly normal to conversational speech. NOSE: n o deformity, discharge, inflammation, or lesions.? MOUTH: m ucous membranes moist, normal oropharynx and posterior pharynx without lesions or exudates, tongue normal, dentition normal. NECK: n rhonda supple, no masses or palpable cervical nodes, trachea midline, thyroid without nodules, masses, tenderness, or enlargement. CHEST: n o chest wall deformity, no chest wall tenderness.? LUNGS: n ormal respiratory effort and clear to auscultation, no wheezes, rales, or rhonchi, good air exchange. CARDIO: r egular rate and rhythm, normal S1 and S2, nor murmur, rub, or gallop. PULSES: n ormal capillary refill. ABDOMEN: s oft, non-distended, non-tender, no masses. MUSCULOSKELETAL: n o deformity or scoliosis noted, normal range of motion, joints normal, no erythema, edema, effusion, or ecchymosis. EXTREMITY: n o clubbing, cyanosis, edema, or deformity with normal ROM in both upper and lower bilateral extremities. NEUROLOGIC: g rossly normal. SKIN: n o rashes, ulcerations, or suspicious lesions. LYMPH NODES: n o cervical adenopathy, nodes normal. MENTAL STATUS: a lert and oriented x3, normal mood and affect. Assessment: * Assessment: 1. I rritable bowel - K58.9 (Primary) 2 . G ERD without esophagitis - K21.9? Plan: * Treatment: * Procedure Codes: * Preventive Medicine: Screenings/Counseling: B UT ACTION PLAN Above Normal BMI Follow-up D ietary management education, guidance, and counseling * * Sign off status: Completed Visit Status: C HK (Check Out) true * Provider: Kenya Dai ([facility])MD Date: 0 07/05/2024 Generated for Printi ng/Favaleria/eTransmitting on: 0 11/15/2024 12:39 PM EDT History and Physical Notes * HPI (History of Present Illness) Category Sub-Category Detail Notes Category Not es Depression Screening PHQ-2 (2015 Edition) Little interest or pleasure in doing things?: Not at all Hemorrhoeds acting up - diarrhea - acing up - sound lke irritabel bowel had seen GI in the past - not tried levsin in the past Feeling down, depressed, or hopeless?: N ot at all Total Score: 0 Examination Category Sub-Category Detail Notes Category Not es Physical Exam GENERAL: well developed, well nourished, in no acute distress HEAD: normocephalic/atraum atic EYES: pupils equal, round and reactive to light, conjunctivae and sclerae normal EARS: no deformity or lesi on of external ear, canals and TM appear normal bilaterally, TM's intact, not inflamed with normal light reflex, hearing grossly normal to conversational speech NOSE: no deformity, discha rge, inflammation, or lesions MOUTH: mucous membranes jeramy st, normal oropharynx and posterior pharynx without lesions or exudates, tongue normal, dentition normal NECK: neck supple, no mass es or palpable cervical nodes, trachea midline, thyroid without nodules, masses, tenderness, or enlargement CHEST: no chest wall deform ity, no chest wall tenderness LUNGS: normal respiratory e ffort and clear to auscultation, no wheezes, rales, or rhonchi, good air exchange CARDIO: regular rate and rhy thm, normal S1 and S2, nor murmur, rub, or gallop PULSES: normal capillary ref ill ABDOMEN: soft, non-distended, non-tender, no masses RECTAL: MUSCULOSKELETAL: no deformity or scol iosis noted, normal range of motion, joints normal, no erythema, edema, effusion, or ecchymosis EXTREMITY: no clubbing, cyanosi s, edema, or deformity with normal ROM in both upper and lower bilateral extremities NEUROLOGIC: grossly normal SKIN: no rashes, ulceratio ns, or suspicious lesions LYMPH NODES: no cervical adenopat hy, nodes normal MENTAL STATUS: alert and oriented x 3, normal mood and affect
--- OUTSIDE RECORDS SUMMARY | 2024-10-10 08:09 | XMS_ITS ---
Author Organization The [facility] in [place] Address [address] [place] [address] Care Team Providers Care Route Cdl Driver Name Role Phone Blair Dai Primary Care Provider REASON FOR VISIT doctors note Encounters Encounter Location Date Provider Diagnosis [facility] [address] [place] [address] 10/10/2024 Blair Dai Plan Of Treatment No Information Progress Notes * JAYLONSheyla DOCKERYDOB: 5 (19 yo F)Acc No.[id number]:10/10/2024 Patient: Sheyla JO :2005 A ge:19 Y S ex:Female Address:[address] [place] [address], [address] * true * Date: Generated for Printi ng/Fasisg/eTransmitting on: 0 11/15/2024 12:39 PM EDT
--- OUTSIDE RECORDS SUMMARY | 2024-11-13 17:12 | XMS_ITS ---
Author Organization The [facility] in [place] Address [address] [place] [address] Care Team Providers Care Product Manager E Commerce Name Role Phone Blair Dai Primary Care Provider REASON FOR VISIT thyroid meds Encounters Encounter Location Date Provider Diagnosis [facility] [address] [place] [address] 11/13/2024 Blair Dai Plan Of Treatment No Information Progress Notes * ROLDANPEGGYSANDRASheyla DOCKERYDOB: 5 (19 yo F)Acc No.[id number]:11/13/2024 Patient: Sheyla JO :2005 A ge:19 Y S ex:Female Address:[address] [place] [address], [address] * true * Date: Generated for Printi ng/Faxing/eTransmitting on: 0 11/15/2024 12:39 PM EDT
[2024-11-15 12:23] VITALS: BP 180/80; PULSE 129; TEMP 36.6; O2SAT 100; BMI 39.0
--- NOTE | 2024-11-15 12:31 | US_ITS ---
The [address] [address] Patient Name: SACHA HA MRN: [id number] date: 2005 Sex: F Assigned Patient Location: ED.MAIN Current Patient Location: ED.MAIN Accession/Order Number: [id number] Exam Date: 11/15/2024 13:29 Report Date: 11/15/2024 13:31 At the request of: CHELSEY LIEBERMAN NP Procedure: US OB transvaginal OB ultrasound. Reason for exam:Left lower quadrant pain and cramping Comparison:None Technique: Transvaginal imaging of the uterus and ovaries were obtained. Findings: A presumed gestational sac is seen within the endometrial canal without pole and yolk sac noted. This measures 3.6 mm by MSD which is too small for dating. No free fluid is seen. Both ovaries appear unremarkable. US/US OB transvaginal Impression: A presumed gestational sac is seen within the endometrial canal without pole and yolk sac noted. No evidence of ectopic is seen such as adnexal mass or complex free fluid. Correlation with beta hCG trend and repeat ultrasound is suggested to confirm viability. Impression dictated by: Nathen Chavez Jr., D.O. 11/15/2024 1:31 PM Dictation Location: [place] [address] Electronically authenticated by: [id number] Y Date: 11/15/2024 13:31
--- NOTE | 2024-11-15 12:33 | ED.GENADUL1 ---
HPI HPI - General Adult General Chief complaint: OB/Uterine Contractions Stated complaint: 6-7 WEEKS CRAMPING Time Seen by Provider: 11/15/24 12:21 Source: patient Mode of arrival: walk-in Limitations: no limitations History of Present Illness HPI narrative: The patient is a 19-year-old female who presents to the emergency department today for evaluation concerns for abdominal cramping. She endorses that she is approximately 6 weeks with LMP 10/04/24 () states since yesterday she has had cramping mostly to the left suprapubic region. She denies any vaginal discharge or spotting/bleeding. No nausea or vomiting. She has any urinary symptoms or back/flank pain. Related Data Home Medications ?Medication ?Instructions ?Recorded ?Confirmed clindamycin 1 %-benzoyl peroxide 5 1 applic topical DAILY 12/31/23 01/14/24 % topical gel hydroxyzine HCl 10 mg tablet 10 mg PO Q8H PRN anxiety 12/31/23 01/14/24 levothyroxine 200 mcg tablet 200 mcg PO DAILY 12/31/23 01/14/24 metformin 500 mg tablet 500 mg PO DAILY 12/31/23 01/14/24 minocycline 50 mg capsule 50 mg PO Q12H 12/31/23 01/14/24 omeprazole 40 mg capsule,delayed 40 mg PO DAILY PRN heartburn 12/31/23 01/14/24 release ondansetron 4 mg disintegrating 4 mg translingual Q12H PRN nausea 12/31/23 01/14/24 tablet and vomiting phentermine 37.5 mg tablet 37.5 mg PO DAILY 12/31/23 01/14/24 sertraline 100 mg tablet 100 mg PO DAILY 12/31/23 12/31/23 Previous Rx's ?Medication ?Instructions ?Recorded hydrocodone 5 mg-acetaminophen 325 1 tab PO Q4H PRN pain 4 days #16 01/14/24 mg tablet tabs ibuprofen 800 mg tablet 800 mg PO Q8H PRN pain 14 days #40 01/14/24 tabs Allergies Allergy/AdvReac Type Severity Reaction Status Date / Time No Known Drug Allergies Allergy Verified 01/14/24 06:27 Opioid HPI Opioid Management Most Recent Opioid Data: Last Pain Scale 0 02/02/24, 14:22 Review of Systems ROS Status of ROS 10 or more systems reviewed and unremarkable except as noted in history and below [facility] Medical History (Updated 11/15/24 @ 14:13 by Anibal King NP) Depression ?F32.A - Depression, unspecified (ICD-10) Panic attacks ?F41.0 - Panic disorder [episodic paroxysmal anxiety] (ICD-10) Anxiety ?F41.9 - Anxiety disorder, unspecified (ICD-10) Insomnia ?G47.00 - Insomnia, unspecified (ICD-10) COVID-19 ?U07.1 - COVID-19 (ICD-10) Dyspareunia Pelvic pain ?R10.2 - Pelvic and perineal pain (ICD-10) Nausea ?R11.0 - Nausea (ICD-10) GERD (gastroesophageal reflux disease) ?K21.9 - Gastro-esophageal reflux disease without esophagitis (ICD-10) Thyroid nodule ?E04.1 - Nontoxic single thyroid nodule (ICD-10) PCOS (polycystic ovarian syndrome) ?E28.2 - Polycystic ovarian syndrome (ICD-10) Surgical History (Updated 12/31/23 @ 10:24 by Mana Ulloa NP) History of myringotomy ?Z98.890 - Other specified postprocedural states (ICD-10) History of tonsillectomy and adenoidectomy ?Z90.89 - Acquired absence of other organs (ICD-10) History of thyroidectomy (09/03/23) ?E89.0 - Postprocedural hypothyroidism (ICD-10) Family History (Updated 12/31/23 @ 10:24 by Mana Ulloa NP) Other Family history of breast cancer Family history of heart disease Family history of hypertension Family history of seizures Social History (Updated 01/14/24 @ 06:28 by Katie Horton) Within the past year, how often did you have a drink containing alcohol: never Score interpretation: A score less than 3 is consistent with normal alcohol consumption. 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 Highest level of school completed/degree received: high school graduate Little interest or pleasure in doing things: not at all Feeling down, depressed, or hopeless: not at all Exam Narrative Exam Narrative: Constituational: Awake/ alert, no apparent distress, well hydrated, +obese HENMT: normocephalic, external ears normal, moist oral mucous membranes and oropharynx normal Eyes: EOMI and conjunctivae normal Neck: ROM intact Chest: inspection of chest normal Respiratory: Normal respiratory effort, clear to auscultation bilaterally Cardio: regular rate and regular rhythm GI: + Discomfort with palpation over L suprapubic region, abdomen is otherwise soft, nontender, normal bowel sounds : Deferred per patient request Back: nontender MSK: ROM intact, +NVI Skin: no rashes or petechiae Neuro: no focal deficits Psych: mental status grossly normal Constitutional Vital Signs, click to edit/add: Last Vital Signs Temp 97.9 F 11/15/24 12:23 Pulse 129 H 11/15/24 12:23 Resp 20 11/15/24 12:23 BP 180/80 H 11/15/24 12:23 Pulse Ox 100 11/15/24 12:23 O2 Del Method Room Air 11/15/24 12:23 Course Vital Signs Vital signs: Vital Signs Temperature 97.9 F 11/15/24 12:23 Pulse Rate 129 H 11/15/24 12:23 Respiratory Rate 11/15/24 12:23 Blood Pressure 180/80 H 11/15/24 12:23 Pulse Oximetry 100 11/15/24 12:23 Oxygen Delivery Method Room Air 11/15/24 12:23 Temperature 97.9 F 11/15/24 12:23 Pulse Rate 129 H 11/15/24 12:23 Respiratory Rate 11/15/24 12:23 Blood Pressure 180/80 H 11/15/24 12:23 Pulse Oximetry 100 11/15/24 12:23 Oxygen Delivery Method Room Air 11/15/24 12:23 Medical Decision Making [facility] Narrative Medical decision making narrative: The patient is a well-appearing 19-year-old female who presented to the emergency department today for evaluation concerns for abdominal cramping in early . Initial examination vital signs overall stable. No abdominal findings on exam. Labs stable and showed no significant leukocytosis, anemia, thrombocytopenia. Electrolytes including renal and hepatic function stable. UTI. Wet prep is negative. Chlamydia and gonorrhea screening is pending. Patient declined any prophylactic STD/STI treatment at this time. HCG Quant 990 and is up trended from 11/13 of 481. OB ultrasound does show gestational sac in endometrial canal. No evidence of ectopic. Discussed this with the patient including recommendations for supportive care for cramping in . Rotations for vaginal rest and close follow-up with her DIVING [facility]ER for reevaluation. Patient given strict return to ER precautions. Is an understanding of this and is agreeable with the plan to be discharged home. Medical Records Medical records reviewed: Yes I reviewed the patient's medical records Lab Data Lab results reviewed: Yes I reviewed the patient's lab results Labs: Lab Results 11/15/24 11/15/24 Range/Units 12:45 13:33 WBC 5.4 (4.0-11.0) 10^3/uL RBC 4.70 (4.20-5.40) 10^6/uL Hgb 13.6 (12.0-16.0) g/dL Hct 39.5 (36.0-48.0) % MCV 84.0 (81.0-99.0) fL MCH 28.9 (26.7-34.0) pg MCHC 34.4 (29.9-35.2) g/dL RDW 13.2 (11.0-15.0) % Plt Count 264 (150-450) 10^3/uL MPV 10.9 (9.5-13.5) fL Neut % (Auto) 56.3 (43.0-75.0) % Lymph % (Auto) 31.6 (20.5-60.0) % [place] % (Auto) 9.3 (1.7-12.0) % Eos % (Auto) 1.9 (0.9-7.0) % Baso % (Auto) 0.7 (0.2-2.0) % Neut # (Auto) 3.0 (1.4-6.5) 10^3/uL Lymph # (Auto) 1.7 (1.2-3.8) 10^3/uL [place] # (Auto) 0.5 (0.3-0.8) 10^3/uL Eos # (Auto) 0.1 (0.0-0.7) 10^3/uL Baso # (Auto) 0.0 (0.0-0.1) 10^3/uL Abs Immat Gran (auto) 0.01 (0.00-0.03) 10^3/uL Imm/Tot Granulo (auto) 0.2 (0.0-0.5) % Sodium 138 (136-145) mmol/L Potassium 3.7 (3.5-5.1) mmol/L Chloride 105 (98-107) mmol/L Carbon Dioxide 24.1 (21.0-32.0) mmol/L Anion Gap 12.6 BUN 10.0 (7.0-18.0) mg/dL Creatinine 0.70 (0.55-1.02) mg/dL Est GFR ( Amer) >60 (>=60 mL/min/1.73m^2) Est GFR (Non-Af Amer) >60 (>=60 mL/min/1.73m^2) BUN/Creatinine Ratio 14.3 Glucose 110 H (74-106) mg/dL Calcium 9.1 (8.5-10.1) mg/dL Total Bilirubin 0.3 (0.2-1.0) mg/dL AST 15 (15-37) U/L ALT 26 (14-59) U/L Alkaline Phosphatase 58 (46-116) U/L Total Protein 7.1 (6.4-8.2) g/dL Albumin 3.8 (3.4-5.0) g/dL Globulin 3.3 g/dL Albumin/Globulin Ratio 1.2 HCG, Quant 990 mIU/mL Urine Color Lt. yellow (YELLOW) Urine Clarity Clear (CLEAR) Urine pH 6.0 (5.0-9.0) Ur Specific [place] <=1.005 A (1.005-1.025) Urine Protein Negative (NEG/TRACE) mg/dL Urine Glucose (UA) Negative (NEGATIVE) mg/dL Urine Ketones Negative (NEGATIVE) mg/dL Urine Occult Blood Negative (NEGATIVE) Urine Nitrite Negative (NEGATIVE) Urine Bilirubin Negative (NEGATIVE) Urine Urobilinogen 0.2 (0.2-1.0) EU/dL Ur Leukocyte Esterase Trace A (NEGATIVE) Urine RBC 0-2 (0-2) #/HPF Urine WBC 2-5 A (NONE SEEN) #/HPF Ur Squamous Epith Cells Few A (NONE/RARE) #/LPF Urine Crystals None seen (None Seen) #/HPF Urine Bacteria Trace A (NONE SEEN) #/HPF Urine Casts None seen (NONE SEEN) #/LPF Urine Mucus None seen (NONE SEEN) Ur Culture Indicated? No Imaging Data OB US < 14wk: Attestation: I have reviewed the pertinent imaging results. Radiologist's impression: ITS Impressions Transvaginal US 11/15/24 12:31 Impression: A presumed gestational sac is seen within the endometrial canal without pole and yolk sac noted. No evidence of ectopic is seen such as adnexal mass or complex free fluid. Correlation with beta hCG trend and repeat ultrasound is suggested to confirm viability. Impression dictated by: Nathen Chavez Jr., D.O. 11/15/2024 1:31 PM [facility]ation [facility] Electron[facility] authenticated by: [id number] Y Date: 11/15/2024 13:31 Discharge Plan Discharge Chief Complaint: OB/Uterine Contractions Clinical Impression: First trimester Patient Disposition: Home, Self-Care Prescriptions / Home Meds: No Action metformin 500 mg tablet 500 mg PO DAILY phentermine 37.5 mg tablet 37.5 mg PO DAILY minocycline 50 mg capsule 50 mg PO Q12H hydroxyzine HCl 10 mg tablet 10 mg PO Q8H PRN (Reason: anxiety) sertraline 100 mg tablet 100 mg PO DAILY omeprazole 40 mg capsule,delayed release(DR/EC) 40 mg PO DAILY PRN (Reason: heartburn) ondansetron 4 mg tablet,disintegrating 4 mg translingual Q12H PRN (Reason: nausea and vomiting) clindamycin-benzoyl peroxide 1-5 % gel 1 applic TOPICAL DAILY levothyroxine 200 mcg tablet 200 mcg PO DAILY ibuprofen 800 mg tablet 800 mg PO Q8H PRN (Reason: pain) 14 Days Qty: 40 0RF hydrocodone-acetaminophen 5-325 mg tablet 1 tab PO Q4H PRN (Reason: pain) 4 Days Qty: 16 0RF Print Language: Turkmen Instructions: (ED) Additional Instructions: Take Tylenol as needed for any pain. Follow-up with your [facility] for reevaluation as discussed. Referrals: Hector Dai MD [Primary Care Provider, Family Practice] - 1 week
--- OUTSIDE RECORDS SUMMARY | 2024-11-15 12:39 | XMS_ITS | Encounter Summary ---
Author Organization [facility] Address [address] [place] [address] Care Team Providers Care Drum Sander Name Role Phone Hector Dai MD Primary Care Provider [phone] Encounter Details Date Type Department Care Team (Late st Contact Info) Description 11/14/2024 Telephone [facility] OB [address] [place] [phone] Gerardo Meredith, DO [address] [place], [place] [id number] Social History Tobacco Use Types Packs/Day Years Used Date Smoking Tobacco: Never Smokeless Tobacco: Never Alcohol Use Standard Drinks/Week Comments Never 0 (1 standard drink = 0.6 oz pur e alcohol) Comments No Sex and Gender Information Value Date Recorded Sex Assigned at Not on file Legal Sex Female 10:12 PM EDT Gender Identity Female 01/05/2023 12:00 PM EDT Sexual Orientation Not on file documented as of this encounter Miscellaneous Notes * Telephone Encounter - Roopa Vitale LPN - 11/14/2024 10:21 AM EDT Patient called the office and she states that she did have labs completed yesterday and that she did speak with her PCP who wanted her to call office and advise us these were back and how to proceed.Patient was advised would let review and return call to her. Patient call was returned and she was advised Dr wants to Increase her Synthroid 50 mcg and that a script would be sent in for her. And to repeat TSH in 4 weeks orders sent to [facility]. documented in this encounter Plan of Treatment Upcoming Encounters Date Type Department Care Team (Late st Contact Info) Description 12/07/2024 2:00 PM EDT Ancillary Procedure [facility] [address] [place] [phone] 12/07/2024 2:30 PM EDT Initial [facility] [address] [place] [phone] Scheduled Orders Name Type Priority Associated Diagnoses Orde r Schedule TSH Lab Routine H/O thyroidectomy Expected: 11/14/2024 (Approximate), Expi res: 11/14/2025 documented as of this encounter Visit Diagnoses Diagnosis H/O thyroidectomy documented in this encounter Care Teams Drum Sander Relationship Specialty Start Date End Date Hector Dai MD PCP - General Family Medicine 04/07/24 documented as of this encounter
--- OUTSIDE RECORDS SUMMARY | 2024-11-15 12:39 | XMS_ITS | Encounter Summary ---
Author Organization [employer] tem Address [id number] [address] [place] [address] Care Team Providers Care Helminthology Teacher Name Role Phone Hector Dai MD Primary Care Provider [phone] Encounter Details Date Type Department Care Team (Late st Contact Info) Description 12/06/2023 [facility]phone [facility] [address] [place] [address] Angel, Barbara, EMPLOYEE RELATIONS SPECIALIST Social History Tobacco Use Types Packs/Day Years Used Date Smoking Tobacco: Never Smokeless Tobacco: Never Alcohol Use Standard Drinks/Week Comments No 0 (1 standard drink = 0.6 oz pur e alcohol) Overall Financial Resource Strain (CARDIA) Answe r Date Recorded How hard is it for you to pa y for the very basics like food, housing, medical care, and heating? Not hard at all 08/25/2023 PHQ-2 Answer Date Recorded Total Score 0 11/23/2023 PRAPARE - Transportation Answer Date Re corded In the past 12 months, has l ack of transportation kept you from medical appointments or from getting medications? No 08/15 In the past 12 months, has l ack of transportation kept you from meetings, work, or from getting things needed for daily living? No 08/25/2023 Housing Instability Answer Date Recorde d Are you worried or concerned that in the next two months you may not have stable housing that you own, rent or stay in as a part of a household? No 08/25/2023 Childcare Answer Date Recorded Childcare Unknown 10/20/2018 Employment Answer Date Recorded Employment Unknown 10/20/2018 Hunger Screening Answer Date Recorded Within the past 12 months we worried whether our food would run out before we got money to buy more. Never True 11/23/2023 Within the past 12 months th e food we bought just didn't last and we didn't have money to get more. Never True 11/23/2023 Purpose - Life Answer Date Recorded Purpose and direction in life Unknown Comments No Sex and Gender Information Value Date Recorded Sex Assigned at Not on file Legal Sex Female 2:44 PM EST Gender Identity Not on file Sexual Orientation Not on file documented as of this encounter Miscellaneous Notes * Telephone Encounter - Barbara Ortiz CMA - 12/06/2023 10:02 AM EDT Pt called upset her dog got out of its cage and ate her levothyroxine she stated she got her thyroid out and needs to take it she wanted to know if you can reorder it or how that works ? * Telephone Encounter - ANDREW Ibrahim - 12/06/2023 10:02 AM EDT [facility] documented in this encounter Plan of Treatment Not on file documented as of this encounter Visit Diagnoses Not on filedocumented in this encounter Additional Health Concerns Assessment Noted Time PHQ-9 Depression Total Score: 0 11/23/19 24 4:08 PM EDT documented as of this encounter Care Teams Helminthology Teacher Relationship Specialty Start Date End Date Hector Dai MD [address] [place] [address] PCP - General Family Medicine 10/12/24 documented as of this encounter
--- OUTSIDE RECORDS SUMMARY | 2024-11-15 12:39 | XMS_ITS | Encounter Summary ---
Author Organization [facility] Address [id number] [address] [place] [address] Care Team Providers Care Hotel Housekeeper Name Role Phone Hector Dai MD Primary Care Provider [phone] Encounter Details Date Type Department Care Team (Late st Contact Info) Description 11/02/2023 Orders Only [facility] Internal Medicine - Family Medicine [address] [place] [address] External, Scanning Provider Social History Tobacco Use Types Packs/Day Years [...] PHQ-2 Answer Date Recorded Total Score 0 10/28/2023 PRAPARE - Transportation Answer Date Re corded [...] got money to buy more. Never True 10/28/2023 Within the past 12 months th e food we bought just didn't last and we didn't have money to get more. Never True 10/28/2023 Purpose - Life Answer Date Recorded Purpose and direction in life Unknown Comments No Sex and Gender Information Value Date Recorded Sex Assigned at Not on file Legal Sex Female 2:44 PM EST Gender Identity Not on file Sexual Orientation Not on file documented as of this encounter Plan of Treatment Not on file documented as of this encounter Procedures Procedure Name Priority Date/Time Associated Diagnosis Comments US PELVIC WITH TRANSVAGINAL Routine 10/29/2023 1:52 PM EDT documented in this encounter Results * Ultrasound pelvic with transvaginal (10/29/2023 1:52 PM EDT) Anatomical Region Laterality Modality Body, Pelvis Ultrasound us Scanning Provider External IMG US ORDERABLES Fin al Result documented in this encounter Visit Diagnoses Not on filedocumented in this encounter Additional Health Concerns Assessment Noted Time PHQ-9 Depression Total Score: 0 10/28/19 24 4:28 PM EDT documented as of this encounter Care Teams Hotel Housekeeper Relationship Specialty Start Date End Date Hector Dai MD [address] [place] [address] PCP - General Family Medicine 10/12/24 documented as of this encounter
--- OUTSIDE RECORDS SUMMARY | 2024-11-15 12:39 | XMS_ITS | Encounter Summary ---
Author Organization [facility] Address [address] [place] [address] Care Team Providers Care Obstetrical Tech Name Role Phone Hector Dai MD Primary Care Provider [phone] Encounter Details Date Type Department Care Team (Late st Contact Info) Description 01/19/2024 Abstract [facility] OB [address] [place] [address] Gerardo Meredith, [address] [place], [id number] Social History Tobacco Use Types Packs/Day Years [...] as of this encounter Plan of Treatment Upcoming Encounters Date Type Department Care Team (Late st Contact Info) Description 12/07/2024 2:00 PM EDT Ancillary Procedure [facility] [place] [facility] [place] [address] 12/07/2024 2:30 PM EDT Initial [facility] OB [facility] [place] [address] documented as of this encounter Visit Diagnoses Not on filedocumented in this encounter Care Teams Obstetrical Tech Relationship Specialty Start Date End Date Hector Dai MD PCP - General Family Medicine 04/07/24 documented as of this encounter
--- OUTSIDE RECORDS SUMMARY | 2024-11-15 12:39 | XMS_ITS | Encounter Summary ---
Author Organization [facility] Address [id number] [address] [place] [address] Care Team Providers Care Electrical Software Engineer Name Role Phone Hcetor Dai MD Primary Care Provider [phone] Encounter Details Date Type Department Care Team (Late st Contact Info) Description 02/03/2024 [facility] Only [facility] - Family Medicine [address] [place] [phone] Ref Prov, [place] [address] Social History Tobacco Use Types Packs/Day Years [...] Procedure Name Priority Date/Time Associated Diagnosis Comments CT NECK SOFT TISSUE WO CONT Routine 02/02/2024 10:18 AM EDT documented in this encounter Results * CT neck soft tissue without contrast (02/02/2024 10:18 AM EDT) Anatomical Region Laterality Modality Neuro, Neck, Neuro Covera N/A Comput ed Tomography us Not In System Ref Prov IMG CT ORDERABLES Final R esult documented in this encounter Visit Diagnoses Not on filedocumented in this encounter Additional Health Concerns Assessment Noted Time PHQ-9 Depression Total Score: 0 11/23/19 24 4:08 PM EDT documented as of this encounter Care Teams Electrical Software Engineer Relationship Specialty Start Date End Date Hector Dai MD [address] [place] [address] PCP - General Family Medicine 10/12/24 documented as of this encounter
--- OUTSIDE RECORDS SUMMARY | 2024-11-15 12:39 | XMS_ITS | Encounter Summary ---
Author Organization [facility] Address [address] [place] [address] Care Team Providers Care Stockholder Name Role Phone Hector Dai MD Primary Care Provider [phone] Encounter Details Date Type Department Care Team (Late st Contact Info) Description 01/14/[address] [facility] [address] [place] [address] Gerardo Meredith, [address] [place], [facility] Social History Tobacco Use Types Packs/Day Years [...] 12/07/2024 2:00 PM EDT Ancillary Procedure [facility] OB [facility] [place] [address] 12/07/2024 2:30 PM EDT Initial [facility] [place] [address] documented as of this encounter Visit Diagnoses Not on filedocumented in this encounter Care Teams Stockholder Relationship Specialty Start Date End Date Hector Dai MD PCP - General Family Medicine 04/07/24 documented as of this encounter
--- OUTSIDE RECORDS SUMMARY | 2024-11-15 12:39 | XMS_ITS | Encounter Summary ---
Author Organization [employer] Address [id number] [address] [place] [address] Care Team Providers Care Probation Manager Name Role Phone Hector Dai MD Primary Care Provider [phone] Reason for Visit * Reason Comments Med Refill Encounter Details Date Type Department Care Team (Late st Contact Info) Description 12/13/2023 Refill [facility] Internal Medicine - Family Medicine [address] [facility] [address] [address] Anita Sherwood, BLOCK OPERATOR-[employer]TER [address] [place] [address] Social History Tobacco Use Types Packs/Day Years [...] documented as of this encounter Care Teams Probation Manager Relationship Specialty Start Date End Date Hector Dai MD [address] [place] [address] PCP - General Family Medicine 10/12/24 documented as of this encounter
--- OUTSIDE RECORDS SUMMARY | 2024-11-15 12:39 | XMS_ITS | Encounter Summary ---
Author Organization [facility] Address [address] [place] [address] Care Team Providers Care Film Inspector Name Role Phone Hector Dai MD Primary Care Provider [phone] Encounter Details Date Type Department Care Team (Late st Contact Info) Description 11/13/2024 Telephone [facility] OB [address] [place] [phone] Gerardo Meredith, DO [address] [place], [place] [phone] Social History Tobacco Use Types Packs/Day Years [...] Telephone Encounter - Roopa Vitale LPN - 11/13/2024 10:42 AM EDT Patient called office and left a voicemail that she did have a positive test on Wednesday and wanting to know if she can have some labs for Thyroid as she had Thyroidectomy last year and has not had labs drawn. Patient advised lab slips would be sent to [facility] for her to have completed. PVU documented in this encounter Plan of Treatment Upcoming Encounters Date Type Department Care Team (Late st Contact Info) Description 12/07/2024 2:00 PM EDT Ancillary Procedure [facility] [address] [place] [address] 12/07/2024 2:30 PM EDT Initial [facility] [address] [place] [address] Scheduled Orders Name Type Priority Associated Diagnoses Orde r Schedule hCG, quantitative, Lab Routine Positive urine test ([facility]) Expected: 11/13/2024 (Approximate), Expires: 11/13/2025 TSH Lab Routine H/O thyroidectomy Expected: 11/13/2024 (Approximate), Expires: 11/13/2025 documented as of this encounter Visit Diagnoses Diagnosis Positive urine test ([facility]) H/O thyroidectomy documented in this encounter Care Teams Film Inspector Relationship Specialty Start Date End Date Hector Dai MD PCP - General Family Medicine 04/07/24 documented as of this encounter
--- OUTSIDE RECORDS SUMMARY | 2024-11-15 12:39 | XMS_ITS | Encounter Summary ---
Author Organization [facility] Address [address] [place] [address] Care Team Providers Care Search Specialist Name Role Phone Hector Dai MD Primary Care Provider [phone] Encounter Details Date Type Department Care Team (Late st Contact Info) Description 11/01/2023 Clinisync Result Encounter [facility] External Department Unsolicited Adolfo Meredith, DO [address] [place], [place] [id number] Social History Tobacco Use Types Packs/Day Years Used Date Smoking Tobacco: Never Smokeless Tobacco: Never Alcohol Use Standard Drinks/Week Comments Never 0 (1 standard drink = 0.6 oz pur e alcohol) Comments Unknown Sex and Gender Information Value Date Recorded Sex Assigned at Not on file Legal Sex Female 10:12 PM EDT Gender Identity Female 01/05/2023 12:00 PM EDT Sexual Orientation Not on file documented as of this encounter Plan of Treatment Upcoming Encounters Date Type Department Care Team (Late st Contact Info) Description 12/07/2024 2:00 PM EDT Ancillary Procedure [facility] [address] [place] [address] 12/07/2024 2:30 PM EDT Initial [facility] [address] [place] [address] documented as of this encounter Procedures Procedure Name Priority Date/Time Associated Diagnosis Comments US PELVIS W/ TRANSVAGINAL 11/01/2023 6:49 AM EDT documented in this encounter Results * US PELVIS W/ TRANSVAGINAL (11/01/2023 6:49 AM EDT) Anatomical Region Laterality Modality Other 11/01/2023 6:49 AM EDT Narrative 11/01/2023 6:52 [place] [address] Ultrasound Report Signed Patient: SACHA LEA MR#: [id number] : 2005 Acct:[id number] Age/Sex: 18 / F ADM Date: 10/29/23 Loc: US Attending Dr: Adolfo Meredith D.O. Ordering Physician: Adolfo Meredith D.O. Date of Service: 10/29/23 Procedure(s): US pelvis w/ transvaginal Accession Number(s): [id number] cc: Adolfo Meredith D.O.; [place] [address] Patient Name: SACHA LEA MRN: [id number] date: 2005 Sex: F Assigned Patient Location: US Current Patient Location: Accession/Order Number: [id number] Exam Date: 10/29/2023 09:03 Report Date: 11/01/2023 06:49 At the request of: ADOLFO MEREDITH Procedure: US pelvis w/ transvaginal EXAMINATION: US pelvis w/ transvaginal HISTORY: Pelvic Pain In Female N92.6 COMPARISON: No relevant comparison available. TECHNIQUE: Transabdominal and/or transvaginal sonographic examination was performed as indicated by examination type. FINDINGS: UTERUS: Normal size and appearance. Uterus size: 7.1 x 3.7 x 2.8 cm ENDOMETRIUM: Normal homogeneous appearance. Endometrial thickness: 9 mm RIGHT OVARY: Contains several follicles. Duplex Doppler demonstrates normal waveform and flow; resistive index 0.7. Ovary size: 3.2 x 2.5 x 2.1 cm LEFT OVARY: Contains several follicles. Duplex Doppler demonstrates normal waveform and flow; resistive index 0.6. Ovary size: 3.3 x 2.9 x 2.3 cm CUL-DE-SAC: Unremarkable. No significant free fluid. BLADDER: Unremarkable. OTHER: None. US/US pelvis w/ transvaginal IMPRESSION: 1. Both ovaries contain multiple follicles. Unremarkable uterus. 2. No overtly suspicious findings to account for patient's symptoms. Electronically authenticated by: GIOVANNI POSADAS Date: 11/01/2023 06:49 Dictated By: Giovanni Posadas M.D. Signed By: 11/01/2352 DD/ TD/TT: Emergency Nurse: Procedure Note Radiology, Radiologist, MD - 11/01/2023 [place] [address] Ultrasound Report Signed Patient: SACHA LEA IMMR#: [id number] : 2005Acct:[id number] Age/Sex: 18 / FADM Date: 10/29/23 Loc: US Attending Dr: Adolfo Meredith D.O. Ordering Physician: Adolfo Meredith D.O. Date of Service: 10/29/23 Procedure(s): US pelvis w/ transvaginal Accession Number(s): [id number] cc: Adolfo Meredith D.O.; MAXWELL ELMORE [place] [id number] Patient Name: SACHA LEA MRN: [id number] date: 2005 Sex: F Assigned Patient Location: US Current Patient Location: Accession/Order Number: [id number] Exam Date: 10/29/2023 09:03 Report Date: 11/01/2023 06:49 At the request of: ADOLFO MEREDITH Procedure: US pelvis w/ transvaginal EXAMINATION: US pelvis w/ transvaginal HISTORY: Pelvic Pain In Female N92.6 COMPARISON: No relevant comparison available. TECHNIQUE: Transabdominal and/or transvaginal sonographic examination was performed as indicated by examination type. FINDINGS: UTERUS: Normal size and appearance. Uterus size: 7.1 x 3.7 x 2.8 cm ENDOMETRIUM: Normal homogeneous appearance. Endometrial thickness: 9 mm RIGHT OVARY: Contains several follicles. Duplex Doppler demonstratesnormal waveform and flow; resistive index 0.7. Ovary size: 3.2 x 2.5 x 2.1 cm LEFT OVARY: Contains several follicles. Duplex Doppler demonstrates normal waveform and flow; resistive index 0.6. Ovary size: 3.3 x 2.9 x 2.3 cm CUL-DE-SAC: Unremarkable. No significant free fluid. BLADDER: Unremarkable. OTHER: None. US/US pelvis w/ transvaginal IMPRESSION: 1. Both ovaries contain multiple follicles. Unremarkable uterus. 2. No overtly suspicious findings to account for patient's symptoms. Electronically authenticated by: GIOVANNI POSADAS Date: 11/01/2023 06:49 Dictated By: Giovanni Posadas M.D. Signed By:11/01/23 0652 DD/ 0649 TD/TT: Emergency Nurse: us [facility] DO [facility] Final Result documented in this encounter Visit Diagnoses Not on filedocumented in this encounter Care Teams Search Specialist Relationship Specialty Start Date End Date Hector Dai MD PCP - General Family Medicine 04/07/24 documented as of this encounter
--- OUTSIDE RECORDS SUMMARY | 2024-11-15 12:39 | XMS_ITS | Encounter Summary ---
Author Organization [facility] Address [address] [place] [address] Care Team Providers Care Presales Engineer Name Role Phone Hector Dai MD Primary Care Provider [phone] Encounter Details Date Type Department Care Team (Late st Contact Info) Description 11/24/2023 Abstract [facility] OB [address] [place] [address] Gerardo Meredith, [address] [place], [facility] Social History Tobacco Use Types Packs/Day [...] 12/07/2024 2:00 PM EDT Ancillary Procedure [facility] OB [facility] [place] [address] 12/07/2024 2:30 PM EDT Initial [facility] OB [facility] [place] [address] documented as of this encounter Visit Diagnoses Not on filedocumented in this encounter Care Teams Presales Engineer Relationship Specialty Start Date End Date Hetcor Dai MD PCP - General Family Medicine 04/07/24 documented as of this encounter
--- OUTSIDE RECORDS SUMMARY | 2024-11-15 12:39 | XMS_ITS | Clinical Summary ---
Author Organization [facility] Address [address] [place] [address] Care Team Providers Care Manager Science Name Role Phone Hector Dai MD Primary Care Provider [phone] Allergies No known active allergies Medications ondansetron ODT (Zofran-ODT) 4 MG disintegrating tablet Take 4 mg by mouth every 12 (twelve) hours if needed for nausea Active minocycline 50 MG capsuleIndications :Acne, unspecified acne type TAKE 1 CAPSULE BY MOUTH IN THE MORNING and ONE CAPSULE BY MOUTH BEFORE bedtime 60 capsule 3 12/13/19 24 Active venlafaxine XR (Effexor XR) 37.5 MG 24 hr capsuleIndications :Anxiety, generalized TAKE 1 CAPSULE BY MOUTH DAILY DO NOT CRUSH OR CHEW. 90 capsule 2 02/17/20 24 Active pantoprazole (ProtoNix) 40 MG EC tablet Take 40 mg by mouth in the morning. Take before meals. Do not crush, chew, or split.. Active metFORMIN (Glucophage) 500 MG tabletIndications: Hormone imbalance,Irregula r periods,Weight gain Take 2 tablets (1,000 mg) by mouth in the morning. Take with meals. 60 tablet 11 03/07/20 24 025 Active buPROPion SR (Wellbutrin SR) 150 MG 12 hr tabletIndications: Mood disorder,Anxious mood Take 1 tablet (150 mg) by mouth Daily Take 1 tablet daily 180 tablet 1 03/08/20 24 025 Active phentermine (Adipex-P) 37.5 MG tabletIndications: Encounter for weight management Take 1 tablet (37.5 mg) by mouth in the morning. Take before meals. 30 tablet 04/10/20 Active Additional Information Patient not taking.Reported on 05/09/2024 levothyroxine (Synthroid, Levoxyl) 175 MCG tabletIndications: Postoperative hypothyroidism Take 1 tablet (175 mcg) by mouth in the morning. Take before meals. 90 tablet 1 05/09/20 Active liothyronine (Cytomel) 5 MCG tabletIndications: Postoperative hypothyroidism Take 1 tablet (5 mcg) by mouth Daily 90 tablet 1 05/09/20 Active levothyroxine (Synthroid) 50 MCG tabletIndications: H/O thyroidectomy Take 1 tablet (50 mcg) by mouth in the morning. Take before meals. 30 tablet 11/15/19 026 Active Encounters Date Type Department Care Team Description 11/14/2024 Telephone [facility] [address] [place] [address] Gerardo Meredith DO 11/13/2024 Clinisync Result Encounter [facility] External Department Unsolicited Gerardo Meredith DO 11/13/2024 Telephone [facility] [address] [place] [address] Gerardo Meredith DO from Last 3 Months Family History Medical History Relation Name Comments Seizure disorder Brother 1 Breast cancer Maternal Grandmother indra whiting Thyroid disease Maternal Grandmother indra whiting Breast cancer Paternal Grandmother Alesha Lea Relation Name Status Comments Brother 1 Alive Brother 2 Alive Brother 3 Alive Brother 4 Alive Brother 5 Alive Brother 6 Alive Father Alive Maternal Grandmother indra whiting Mother Alive Paternal Grandmother Alesha Lea Sister 1 Alive Sister 2 Alive Sister 3 Alive Social History Tobacco Use Types Packs/Day Years Used Date Smoking Tobacco: Never Smokeless Tobacco: Never Tobacco Cessation:Counseling Given: Not Answered Alcohol Use Standard Drinks/Week Comments Never 0 (1 standard drink = 0.6 oz pur e alcohol) Comments No Sex and Gender Information Value Date Recorded Sex Assigned at Not on file Legal Sex Female 10:12 PM EDT Gender Identity Female 01/05/2023 12:00 PM EDT Sexual Orientation Not on file Last Filed Vital Signs Vital Sign Reading Time Taken Comments Blood Pressure 116/70 05/09/2024 9:23 AM EST Pulse 84 05/09/2024 9:23 AM EST Temperature - - Respiratory Rate 18 05/09/2024 9:23 AM EST Oxygen Saturation - - Inhaled Oxygen Concentration - - Weight 96.2 kg (212 lb) 05/09/2024 9:23 AM EST Height 160 cm (5' 3 ) 05/09/2024 9:23 AM EST Body Mass Index 37.55 05/09/2024 9:23 AM EST Plan of Treatment Upcoming Encounters Date Type Department Care Team (Late st Contact Info) Description 12/07/2024 2:00 PM EDT Ancillary Procedure [facility] [address] [place] [address] 12/07/2024 2:30 PM EDT Initial [facility] [address] [facility] [place] [address] Health Maintenance Due Date Last Done Comments Influenza Vaccine (#1) 2025 4, 02/22/2023, 03/14/2020, Additional history exists Procedures Procedure Name Priority Date/Time Associated Diagnosis Comments TBH PREG QUANT HCG Routine 11/13/2024 4: 33 PM EDT ALL THYROID STIM HORMONE Routine 11/13/2024 4:33 PM EDT from Last 3 Months Results * TBH PREG QUANT HCG (11/13/2024 4:33 PM EDT) HCG QUANTITATIVE 481 mIU/mL TBH Comment: 5-50 0.2-1 WEEK 50-500 1-2 WEEKS 100-5,000 2-3 WEEKS 500-10,000 3-4 WEEKS 1,000-50,000 4-5 WEEKS 10,000-100,000 5-6 WEEKS 15,000-200,000 6-8 WEEKS 10,000-100,000 2-3 MONTHS 11/13/2024 4:33 PM EDT 11/13/2024 4:33 PM EDT Narrative [facility] - 11/13/2024 5:55 PM EDT Gerardo Viri DO [facility] Final Result [facility] * (ABNORMAL) ALL THYROID STIM HORMONE (11/13/2024 4:33 PM EDT) THYROID STIMULATING HORMONE 12.103(H) 0.358 - 3.740 uIU/mL TB[facility] 11/13/2024 4:33 PM EDT 11/13/2024 4:33 PM EDT Narrative [facility] - 11/13/2024 5:55 PM EDT Gerardo Viri DO [facility] Final Result [facility] from Last 3 Months Insurance BS BCBS Care Teams Manager Science Relationship Specialty Start Date End Date Hector Dai MD PCP - General Family Medicine 04/07/24
--- OUTSIDE RECORDS SUMMARY | 2024-11-15 12:39 | XMS_ITS | Encounter Summary ---
Author Organization [facility] Address [address] [place] [address] Care Team Providers Care Algebra Tutor Name Role Phone Hector Dai MD Primary Care Provider [phone] Encounter Details Date Type Department Care Team (Late st Contact Info) Description 12/31/2023 Clinisync Result Encounter [facility] External Department Unsolicited Adolfo Meredith, DO [address] [facility] [address] [place], [place] [id number] Social History Tobacco Use Types Packs/Day Years [...] Procedure [facility] [address] [place] [address] 12/07/2024 2:30 PM EDT Initial [facility] [address] [place] [address] documented as of this encounter Procedures Procedure Name Priority Date/Time Associated Diagnosis Comments ECG 12-LEAD 12/31/2023 10:35 AM EDT documented in this encounter Results * ECG 12-LEAD (12/31/2023 10:35 AM EDT) Anatomical Region Laterality Modality Other 12/31/2023 10:3 5 AM EDT Narrative 12/31/2023 6:35 [place] [address] Electrocardiograph Report Signed Patient: SACHA LEA IM MR#: [id number] : 2005 Acct:[id number] Age/Sex: 18 / F ADM Date: 12/31/23 Loc: PST Attending Dr: Adolfo Meredith D.O. Ordering Physician: Adolfo Meredith D.O. 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 Signed By: 12/31/23 1835 DD/ 1035 TD/TT: Senior Designer/Art Director: Procedure Note Radiology, Radiologist, MD - 12/31/2023 [facility] [place] [id number] Electrocardiograph Report Signed Patient: SACHA LEA IMMR#: [id number] : 2005Acct:[id number] Age/Sex: 18 / FADM Date: 12/31/23 Loc: PST Attending Dr: Adolfo Viri D.O. Ordering Physician: Adolfo Meredith D.O. 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 Signed By:12/31/23 1835 DD/ 1035 TD/TT: Senior Designer/Art Director: us Adolfo Meredith DO [facility] Final Result documented in this encounter Visit Diagnoses Not on filedocumented in this encounter Care Teams Algebra Tutor Relationship Specialty Start Date End Date Hector Dai MD PCP - General Family Medicine 04/07/24 documented as of this encounter
--- OUTSIDE RECORDS SUMMARY | 2024-11-15 12:39 | XMS_ITS | Encounter Summary ---
Author Organization [facility] Address [id number] [address] [place] [address] Care Team Providers Care Hog Man Name Role Phone Hector Dai MD Primary Care Provider [phone] Encounter Details Date Type Department Care Team (Late st Contact Info) Description 11/29/2023 Orders Only [facility] Internal Medicine - Family Medicine [address] [place] [address] Susy Lee CMA Postoperative hypothyroidism Social History Tobacco Use Types Packs/Day Years [...] Procedure Name Priority Date/Time Associated Diagnosis Comments TSH Routine 11/26/2023 Postoperative hypothyroidism documented in this encounter Results * TSH (11/26/2023) External Tsh 0.643 SUNQUEST 11/26/2023 Anita Sherwood WHISKEY PROOF READER-HISTORIAN RESEARCH ASSISTANT LAB BLOOD ORDERABLES Fin al Result SUNQUEST documented in this encounter Visit Diagnoses Diagnosis Postoperative hypothyroidism Postsurgical hypothyroidism documented in this encounter Additional Health Concerns Assessment Noted Time PHQ-9 Depression Total Score: 0 11/23/19 24 4:08 PM EDT documented as of this encounter Care Teams Hog Man Relationship Specialty Start Date End Date Hector Dai MD [address] [place] [address] PCP - General Family Medicine 10/12/24 documented as of this encounter
--- OUTSIDE RECORDS SUMMARY | 2024-11-15 12:39 | XMS_ITS | Encounter Summary ---
Author Organization [facility] Address [address] [place] [address] Care Team Providers Care Director Of Sports Performance Name Role Phone ShireenShayla morgantrish Haddad DO Primary Care Provider [phone] Anita Sherwood NP Primary Care Provider [phone] Source Comments In the event this information is protected by the Federal Confidentiality of Alcohol and Drug AbusePatient Records regulations: The Federal rules restrict any use of the information to criminally investigate or prosecute any alcohol or drug abuse patient.[facility] Encounter Details Date Type Department Care Team (Late st Contact Info) Description 08/12/2023 Patient [facility] [place] [address] Martina Bettencourt RPh At your next appointment, choose [facility] Social History Tobacco Use Types Packs/Day Years Used Date Smoking Tobacco: Never Passive Smoke Exposure: Yes Smokeless Tobacco: Never Comments:mom & dad both smok e in house Alcohol Use Standard Drinks/Week Comments No 0 (1 standard drink = 0.6 oz pur e alcohol) Area Deprivation Index Answer Date Ronnie rded National Score (1-100), lower number is lower ri sk 91 01/07/2023 State Score (1-10), lower number is lower risk 9 01/07/2023 Data from: https://www.neighborhoodatlas.medicine.[facility].edu/. Last address used for calculation [address] 01/07/2023 Comments No Sex and Gender Information Value Date Recorded Sex Assigned at Not on file Legal Sex Female 3:42 PM EDT Gender Identity Not on file Sexual Orientation Not on file documented as of this encounter Plan of Treatment Not on file documented as of this encounter Visit Diagnoses Not on filedocumented in this encounter Care Teams Director Of Sports Performance Relationship Specialty Start Date End Date Geeta Goff DO [address] [place] [address] PCP - General Family Medicine 07/09/23 08/16/23 Anita Sherwood NP [address] [place] [address] PCP - General Family Medicine 08/17/23 documented as of this encounter
--- OUTSIDE RECORDS SUMMARY | 2024-11-15 12:39 | XMS_ITS | Encounter Summary ---
Author Organization [facility] Address [address] [place] [address] Care Team Providers Care Whip Sawyer Name Role Phone Hector Dai MD Primary Care Provider [phone] Encounter Details Date Type Department Care Team (Late st Contact Info) Description 01/03/2024 Abstract [facility] OB [address] [place] [address] Gerardo Meredith, [address] [place], [facility] Social History Tobacco Use Types Packs/Day Years [...] 12/07/2024 2:00 PM EDT Ancillary Procedure [facility] OB [facility] [place] [address] 12/07/2024 2:30 PM EDT Initial [facility] [place] [address] documented as of this encounter Visit Diagnoses Not on filedocumented in this encounter Care Teams Whip Sawyer Relationship Specialty Start Date End Date Hector Dai MD PCP - General Family Medicine 04/07/24 documented as of this encounter
--- OUTSIDE RECORDS SUMMARY | 2024-11-15 12:39 | XMS_ITS | Encounter Summary ---
Author Organization [facility] Address [address] [place] [address] Care Team Providers Care Food Safety Manager Name Role Phone Hector Dai MD Primary Care Provider [phone] Encounter Details Date Type Department Care Team (Late st Contact Info) Description 01/14/2024 Abstract [facility] OB [address] [place] [address] Gerardo Meredith, [address] [place], [facility]11 Social History Tobacco Use Types Packs/Day Years [...] 12/07/2024 2:00 PM EDT Ancillary Procedure [facility] OB [facility] [place] [address] 12/07/2024 2:30 PM EDT Initial [facility] OB [facility] [place] [address] documented as of this encounter Visit Diagnoses Not on filedocumented in this encounter Care Teams Food Safety Manager Relationship Specialty Start Date End Date Hector Dai MD PCP - General Family Medicine 04/07/24 documented as of this encounter
--- OUTSIDE RECORDS SUMMARY | 2024-11-15 12:39 | XMS_ITS | Encounter Summary ---
Author Organization [facility] Address [address] [place] [address] Care Team Providers Care Pattern Hand Name Role Phone Hector Dai MD Primary Care Provider [phone] Encounter Details Date Type Department Care Team (Late st Contact Info) Description 11/13/2024 Clinisync Result Encounter [facility] External Department Unsolicited Gerardo Meredith, DO [address] [facility] [address] [place], [place] [id number] Social History Tobacco Use Types Packs/Day Years [...] Procedure [facility] [address] [place] [address] 12/07/2024 2:30 PM EDT Initial [facility] [address] [place] [address] documented as of this encounter Procedures Procedure Name Priority Date/Time Associated Diagnosis Comments TBH PREG QUANT HCG Routine 11/13/2024 4: 33 PM EDT ALL THYROID STIM HORMONE Routine 11/13/2024 4:33 PM EDT documented in this encounter Results * TBH PREG QUANT HCG (11/13/2024 4:33 PM EDT) HCG QUANTITATIVE 481 mIU/mL [facility] Comment: 5-50 0.2-1 WEEK 50-500 1-2 WEEKS 100-5,000 2-3 WEEKS 500-10,000 3-4 WEEKS 1,000-50,000 4-5 WEEKS 10,000-100,000 5-6 WEEKS 15,000-200,000 6-8 WEEKS 10,000-100,000 2-3 MONTHS 11/13/2024 4:33 PM EDT 11/13/2024 4:33 PM EDT Narrative [facility] - 11/13/2024 5:55 PM EDT us Gerardo Viri DO [facility] Final Result [facility] TB * (ABNORMAL) ALL THYROID STIM HORMONE (11/13/2024 4:33 PM EDT) THYROID STIMULATING HORMONE 12.103(H) 0.358 - 3.740 uIU/mL TB[facility] 11/13/2024 4:33 PM EDT 11/13/2024 4:33 PM EDT Narrative [facility] - 11/13/2024 5:55 PM EDT [employer] Viri DO [facility] Final Result [facility] TB documented in this encounter Visit Diagnoses Not on filedocumented in this encounter Care Teams Pattern Hand Relationship Specialty Start Date End Date Hector Dai MD PCP - General Family Medicine 04/07/24 documented as of this encounter
--- OUTSIDE RECORDS SUMMARY | 2024-11-15 12:39 | XMS_ITS | Encounter Summary ---
Author Organization [employer] Address [id number] [address] [place] [address] Care Team Providers Care Replanter Name Role Phone Hector Dai MD Primary Care Provider [phone] Encounter Details Date Type Department Care Team (Late st Contact Info) Description [facility] [address] [place] [address] Angel, Barbara, LAB REP Social History Tobacco Use Types Packs/Day Years [...] Telephone Encounter - Barbara Ortiz CMA - 02/02/2024 1:58 PM EDT Pt called stated she still feels like she still has a pill in her throat since 5am , stated she's ate bread and other things and drank and it still feels like its in there , I did get her an appointment for tomorrow , but if it dont go away she could always go to urgent care or ER * Telephone Encounter - ANDREW Ibrahim - 02/02/2024 1:58 PM EDT Looks like she went to ER - I have CT scan in chart documented in this encounter Plan of Treatment Not on file documented as of this encounter Visit Diagnoses Not on filedocumented in this encounter Additional Health Concerns Assessment Noted Time PHQ-9 Depression Total Score: 0 11/23/19 24 4:08 PM EDT documented as of this encounter Care Teams Replanter Relationship Specialty Start Date End Date Hector Dai MD [address] [place] [address] PCP - General Family Medicine 10/12/24 documented as of this encounter
--- OUTSIDE RECORDS SUMMARY | 2024-11-15 12:39 | XMS_ITS | Patient Health Record ---
Author Organization [facility] in [place] Address [address] [place] [address] Care Team Providers Care Field Automobile Adjuster Name Role Phone Blair Dai Primary Care Provider [phone] Allergies No Known Allergies Results Component Value Reference Range Notes PREG QUANT HCG Reviewed date:11/13/2024 09:12:54 PM Interpretation: Performing Lab: Notes/Report: [facility] , HCG Quantitative 481 100-5,000 2-3 WEEKS 5-50 0.2-1 WEEK 10,000-100,000 2-3 MONTHS 10,000-100,000 5-6 WEEKS 500-10,000 3-4 WEEKS 15,000-200,000 6-8 WEEKS 50-500 1-2 WEEKS 1,000-50,000 4-5 WEEKS Performing Lab: see note ML - [facility] LB TSH Reviewed date:11/13/2024 09:12:54 PM Interpretation: Performing Lab: Notes/Report: [facility] , Thyroid Stimulating Hormone 12.103 0.358-3.740 u IU/mL Performing Lab: see note ML - [facility] LB CBC AUTO DIFF Reviewed date:07/04/2024 08:39:44 PM Interpretation: Performing Lab: Notes/Report: [facility] , White Blood Count 5.2 4.0-11.0 10 3/uL Red Blood Count 4.94 4.20-5.40 10 6/uL Hemoglobin 13.8 12.0-16.0 g/dL Hematocrit 41.2 36.0-48.0 % Mean Corpuscular Volume 83.4 81.0-99.0 fL Mean Corpuscular Hemoglobin 27.9 26.7-34.0 pg Mean Corpuscular HGB Conc 33.5 29.9-35.2 g/dL Red Cell Distribution Width 12.6 11.0-15.0 % Platelet Count 261 150-450 10 3/uL Mean Platelet Volume 10.5 9.5-13.5 fL Neutrophils Percent Auto 51.4 43.0-75.0 % Lymphocytes Percent Auto 36.2 20.5-60.0 % Monocytes Percent Auto 8.3 1.7-12.0 % Eosinophils Percent Auto 2.9 0.9-7.0 % Basophils Percent Auto 1.0 0.2-2.0 % Immature Granulocytes Pct Auto 0.2 0.0-0.5 % Neutrophils Absolute Auto 2.7 1.4-6.5 10 3/uL Lymphocytes Absolute Auto 1.9 1.2-3.8 10 3/uL Monocytes Absolute Auto 0.4 0.3-0.8 10 3/uL Eosinophils Absolute Auto 0.2 0.0-0.7 10 3/uL Basophils Absolute Auto 0.1 0.0-0.1 10 3/uL Immature Granulocytes Abs Auto 0.01 0.00-0.03 10 3/uL Performing Lab: see note ML - [facility] LB PROF 14(COMP METB) Reviewed date:07/04/2024 08:39:44 PM Interpretation: Performing Lab: Notes/Report: [facility] , Sodium 139 136-145 mmol/L Potassium 4.0 3.5-5.1 mmol/L Chloride 105 98-107 mmol/L Carbon Dioxide 25.3 21.0-32.0 mmol/L Anion Gap 12.7 Glucose 92 74-106 mg/dL Blood Urea Nitrogen 10.0 7.0-18.0 mg/dL Creatinine 0.79 0.55-1.02 mg/dL Estimated GFR ( Magda >60 >=60 mL/mi n/1.73m 2 Estimated GFR (Non- Kanchan >60 >=60 mL/mi n/1.73m 2 BUN Creatinine Ratio 12.7 Calcium 9.2 8.5-10.1 mg/dL Bilirubin Total 0.5 0.2-1.0 mg/dL Aspartate Amino Transferase 17 15-37 U/L Alanine Aminotransferase 22 14-59 U/L Alkaline Phosphatase 69 46-116 U/L Total Protein 7.3 6.4-8.2 g/dL Albumin Level 3.8 3.4-5.0 g/dL Globulin 3.5 Albumin Globulin Ratio 1.1 Performing Lab: see note ML - [facility] LB TSH Reviewed date:07/04/2024 08:39:44 PM Interpretation: Performing Lab: Notes/Report: [facility] , Thyroid Stimulating Hormone 1.491 0.358-3.740 u IU/mL Performing Lab: see note ML - [facility] LB T4 Reviewed date:07/04/2024 08:39:44 PM Interpretation: Performing Lab: Notes/Report: [facility] , T4 Thyroxine 9.40 4.80-13.90 ug/dL Performing Lab: see note ML - [facility] GLYCOHEMOGLOBIN A1C Reviewed date:07/04/2024 08:39:44 PM Interpretation: Performing Lab: Notes/Report: [facility] , Glycohemoglobin A1C 5.5 4.5-6.2 % ADA THERAPEUTIC TARGET < 7.0 > 7.0 ADA RECOMMENDED LIMIT 4.0 - 6.0 ACTION SUGGESTED Estimated Average Glucose 111 Performing Lab: see note ML - [facility] FREE T3 Reviewed date:07/04/2024 08:39:44 PM Interpretation: Performing Lab: Notes/Report: [facility] , Free T3 3.75 2.18-3.98 pg/mL Performing Lab: see note ML - [facility] LB Reason For Referral Reason hypothyriod Diagnosis 1 Well adult (Z00.00) Diagnosis 2 Hypothyroid (E03.9) Referral Organization [facility] Referring Provider First Name Blair Referring Provider Last Name Lucianoarya Referring Provider Speciality [facility] anatoliy Referred Provider Loretta Winkler Referred Provider Specialty Endocrinolog y Referral Priority Routine Medications Medication SIG (Take, Route, Frequency, Duration) Notes Start Date End Date Status buPROPion HCl ER (SR) 150 MG TAKE 1 TABLET BY MOUTH EVERY DAY Oral for 90 Days Active Famotidine 40 MG 1 tablet Orally Once [...] l Oral BID for 90 days Active Fluocinonide 0.05 % 1 application Quality Control Clerk ally Twice a day 07/05/2024 Active Levothyroxine Sodium 175 MCG 1 tablet in the morning on an empty stomach Oral Once a day for 30 days Active Clindamycin Phos-Benzoyl Perox 1-5 % 1 application External BID for 30 days PRN Active Social History Tobacco Use: Social History Observation Description Date Details (start date - stop date) Never Smoker NA - NA Tobacco Control (Standard) Question Answer Notes Tobacco use: Nonsmoker AUDIT-C (Standard) Question Answer Notes Did you have a drink containing alcohol in the p ast year? No Points 0 Interpretation Negative Problems Problem Type SNOMED Code ICD Code Onset Dates Problem Status W/U Status Risk Notes Problem Hypothyroid (65219252) Hypothyroid (E03.9) Active confirmed Problem Acid reflux (226060455) Acid reflux (K21.9) Active confirmed Problem Gastroesophageal reflux disease (661500657) GERD without esophagitis (K21.9) Active confirmed Problem Well adult (762810960) Well adult (Z00.00) Active confirmed Problem Polycystic ovary syndrome (disorder) (928046565) PCOS (polycystic ovarian syndrome) (E28.2) Active confirmed Problem Irritable bowel (84275855) Irritable bowel (K58.9) Active confirmed Vital Signs Blood pressure diastolic 82 mm Hg 07/05/2024 BMI Percentile 97.98 % 07/05/2024 Height 63 in 07/05/2024 Blood pressure systolic 112 mm Hg 07/05/2024 Weight 216.0 lbs 07/05/2024 BMI 38.26 kg/m2 07/05/2024 Encounters Encounter Location Date Provider [facility] [address] [place] [address] 04/17/2024 [facility] [address] [place] [address] 05/22/2024 [facility] [address] [place] [address] 06/26/2024 Blair Dai [facility] [address] [place] [address] 10/10/2024 Blair Dai [facility] [address] [place] [address] 04/07/2024 Blair Wolfarya Well adult Z00.00 an d Hypothyroid E03.9 [facility] [address] [place] [address] 07/05/2024 Blair Dai Irritable bowel K58. 9 and GERD without esophagitis K21.9 [facility] [address] [place] [address] 05/22/2024 Blair Dai PCOS (polycystic ovarian syndrome) E28.2 ; Hypothyroid E03.9 ; Well adult Z00.00 and Encounter for long-term (current) use of other medications Z79.[address] [address] 07/04/2024 Blair Dai [address] [address] 11/13/2024 Blair Wolfarya Assessments Encounter Date Diagnosis (ICD Code) Assessment Notes Treatment Notes Treatment Clinical Notes Section Notes 04/07/2024 Well adult (ICD-10 - Z00.00) 04/07/2024 Hypothyroid (ICD-10 - E03.9) 07/05/2024 Irritable bowel (ICD-10 - K58.9) 07/05/2024 GERD without esophagitis (ICD-10 - K21.9) 05/22/2024 PCOS (polycystic ovarian syndrome) (ICD-10 - E28.2) 05/22/2024 Hypothyroid (ICD-10 - E03.9) 05/22/2024 Well adult (ICD-10 - Z00.00) 05/22/2024 Encounter for long-term (current) use of other medications (ICD-10 - Z79.899) Plan Of Treatment Pending Test Test Name Order Date CMP - Comprehensive Metabolic Panel 10/2024 CBC W/AUTO DIFF 05/22/2024 GLYCOHEMOGLOBIN A1C 05/22/2024 THYROID PANEL (T4/TSH/FREE T3) 5 Insurance Providers Payer Name Payer Address Payer Phone Subscriber Number Group Number Insured Name Patient Relationship to Insured Coverage Start Date Coverage End Date [employer] [address] [place] [address] [id number] SAMUELKR[address] Child - Insured has Financial Responsibility [employer] [address] [place] [address] [id number] Sheyla Lea Self - patient is the insured Medical (General) History Medical History History ICD Code PCOS (polycystic ovarian syndrome) E28.2 Acid reflux K21.9 Surgical History Surgery Date(Month/Year) Tonsillectomy EGD 02/07 diagnostic lap 01/07 Thyroidectomy 09/07
--- OUTSIDE RECORDS SUMMARY | 2024-11-15 12:40 | XMS_ITS | Encounter Summary ---
Author Organization [facility] Address [id number] [address] [place] [address] Care Team Providers Care Clinical Informatics Director Name Role Phone Hector Dai MD Primary Care Provider [phone] Encounter Details Date Type Department Care Team (Late st Contact Info) Description 02/21[facility]24 [facility] [address] [place] [address] Asad Sam CMA Social History Tobacco Use Types Packs/Day Years [...] encounter Miscellaneous Notes * Telephone Encounter - Asad Sam CMA - 02/21/2024 10:41 AM EDT ----- Message from Anita Sherwood APRN-JOSE LUIS sent at 02/21/2024 9:10 AM EDT ----- Please call pt as there are med changes - to make sure she got the message below. documented in this encounter Plan of Treatment Not on file documented as of this encounter Visit Diagnoses Not on filedocumented in this encounter Additional Health Concerns Assessment Noted Time PHQ-9 Depression Total Score: 0 11/23/19 24 4:08 PM EDT documented as of this encounter Care Teams Clinical Informatics Director Relationship Specialty Start Date End Date Hector Dai MD [address] [place] [address] PCP - General Family Medicine 10/12/24 documented as of this encounter
--- OUTSIDE RECORDS SUMMARY | 2024-11-15 12:40 | XMS_ITS | Clinical Summary ---
Author Organization [facility] Address [id number] [address] [place] [address] Care Team Providers Care Health And Fitness Professor Name Role Phone Hector Dai MD Primary Care Provider [phone] Allergies No known active allergies Medications venlafaxine XR (EFFEXOR XR) 37.5 mg 24 hr capsule Take 1 capsule (37.5 mg total) by mouth in the morning. 01/25/20 24 025 Active ondansetron ODT (ZOFRAN ODT) 4 mg disintegrating tablet DISSOLVE 1 TABLET (4 MG TOTAL) ON TONGUE EVERY 8 HOURS NEEDED FOR NAUSEA AND VOMITING 20 tablet 1 02/18/20 24 Active pantoprazole (PROTONIX) 20 mg EC tablet TAKE 1 TABLET (20 MG TOTAL) BY MOUTH IN THE MORNING 90 tablet 1 03/02/20 24 Active metFORMIN (GLUCOPHAGE) 500 mg tablet Take 2 tablets (1,000 mg total) by mouth in the morning. 03/07/20 24 025 Active buPROPion SR (WELLBUTRIN SR) 150 mg 12 hr tablet Take 1 tablet (150 mg total) by mouth in the morning. 03/08/20 24 Active levothyroxine (SYNTHROID, LEVOTHROID) 175 MCG tablet TAKE 1 TABLET BY MOUTH IN THE MORNING 90 tablet 1 05/01/20 24 Active clindamycin-benzoy l peroxide (BENZACLIN) gel APPLY TO AFFECTED AREA TOPICALLY IN THE MORNING AND AT BEDTIME 25 g 1 05/02/20 24 Active clobetasoL (TEMOVATE) 0.05 % cream Apply 1 Application topically in the morning and 1 Application before bedtime. 30 g 10/13/19 25 Active CEPHalexin (KEFLEX) 500 mg capsule Take 1 capsule (500 mg total) by mouth in the morning and 1 capsule (500 mg total) before bedtime. Do all this for 10 days. 20 capsule 10/13/19 25 025 Active Problems Problem Noted Date Diagnosed Date Constipation 02/18/2024 Dyspepsia 02/18/2024 Gastroparesis 02/18/2024 Hemorrhoids 02/18/2024 Ingrown toenail 02/18/2024 Irregular bleeding 02/18/2024 Nausea 02/18/2024 Symptom associated with female genital organs Unintended weight loss 02/18/2024 Vomiting 02/18/2024 Pharyngoesophageal dysphagia 02/04/2024 Delayed gastric emptying 02/04/2024 Retained food in stomach 02/04/2024 PCOS (polycystic ovarian syndrome) 12/31/2023 Postoperative hypothyroidism 10/28/2023 Generalized anxiety disorder 08/25/2023 GERD (gastroesophageal reflux disease) Overview (08/25/2023): Last Assessment & Plan: Currently controlled with dietary and lifestyle modifications. Moderate major depression 08/25/2023 Abnormal thyroid blood test 04/15/2022 Thyroid nodule 06/23/2018 Thrush 07/12/2017 S/P tonsillectomy 07/12/2017 Epistaxis 07/12/2017 Tonsillar hypertrophy 05/13/2017 History of otitis media 05/13/2017 Dysfunction of both eustachian tubes 05/13/2017 Nasal obstruction 05/13/2017 Encounters Date Type Department Care Team Description 10/12/2024 12:27 PM EDT - 10/12/2024 1:35 PM EDT Emergency [facility] - Emergency [address] [place] [id number] Allergic contact dermatitis, unspecified trigger (Primary Dx) Discharge Disposition: Home 10/12/2024 Travel from Last 3 Months Immunizations Immunization Administration Dates Next Due Covid-19, Mrna, Lnp-s, Pf,teresa-sucrose,30 Mcg/0.3ml Seasonal 03/31/2024 DTaP 06/20/2007, 7,06/23/2005,12/30 DTaP / IPV 09/09/2009 HPV Quadrivalent 11/25/2015 HPV9 12/26/2021 Hep A, 2 Dose 12/26/2021 Hep B / HIB 06/23/2005,2004 Hep B, Adolescent or Pediatric 2004 Hib (PRP-T) 09/13/2006 IPV 09/13/2006,06/23/2005,2004 Influenza (IM) Preservative Free 02/18/2024 Influenza, Im Trivalent Preservative 06/23/2005 Influenza, Injectable, Quadrivalent 03/14/2020 Influenza, Injectable, quadr ivalent (PF) 02/22/2023 MMR 09/09/2009 MMRV 09/13/2006 Meningococcal Conjugate 12/26/2021 Meningococcal MCV4P 11/25/2015 PPD Test 12/26/2021,12/19/2021 Pneumococcal Conjugate 09/13/2006,06/23/2005, Tdap 11/25/2015 Varicella 09/09/2009 Family History Medical History Relation Name Comments No Known Problems Father No Known Problems Mother Relation Name Status Comments Father Alive Mother Alive Social History Tobacco Use Types Packs/Day Years Used Date Smoking Tobacco: Never Smokeless Tobacco: Never Tobacco Cessation:Counseling Given: Not Answered Alcohol Use Standard Drinks/Week Comments No 0 (1 standard drink = 0.6 oz pur e alcohol) Overall Financial Resource Strain (CARDIA) Answe r Date Recorded How hard is it for you to pa y for the very basics like food, housing, medical care, and heating? Not hard at all 08/25/2023 PHQ-2 Answer Date Recorded Total Score 0 03/31/2024 PRAPARE - Transportation Answer Date Re corded [...] got money to buy more. Never True 10/12/2024 Within the past 12 months th e food we bought just didn't last and we didn't have money to get more. Never True 10/12/2024 Purpose - Life Answer Date Recorded Purpose and direction in life Unknown Comments No Sex and Gender Information Value Date Recorded Sex Assigned at Not on file Legal Sex Female 2:44 PM EST Gender Identity Not on file Sexual Orientation Not on file Last Filed Vital Signs Vital Sign Reading Time Taken Comments Blood Pressure 129/98 10/12/2024 12:32 PM EDT Pulse 103 10/12/2024 12:32 PM EDT Temperature 36.9 C (98.4 F) 10/12/2024 12:32 PM EDT Respiratory Rate 20 10/12/2024 12:32 PM EDT Oxygen Saturation 100% 10/12/2024 12:32 PM EDT Inhaled Oxygen Concentration - - Weight 99.8 kg (220 lb) 10/12/2024 12:32 PM EDT Height 160 cm (5' 3 ) 10/12/2024 12:32 PM EDT Body Mass Index 38.97 10/12/2024 12:32 PM EDT Plan of Treatment Health Maintenance Due Date Last Done Comments Adult BMI Follow Up Plan 2022 Chlamydia Screening 10/27/2024 10/28/2023 Influenza Vaccine 01/15/2025 02/18/2024, , 03/14/2020, Additional history exists Depression Screening 03/31/2025 03/31/2024 Adult BMI Screening 10/12/2025 10/12/2024 Tobacco Screening 10/12/2025 10/12/2024 DTaP,Tdap and Td Vaccines (7 - Td or Tdap) 11/24/2025 11/25/2015, 09/09/2009, 06/20/2007, Additional history exists COVID-19 Vaccine Completed 03/31/2024, , 10/21/2020 Medical Devices Not on file Insurance ANTHEM ANTHEM ANTHEM Care Teams Health And Fitness Professor Relationship Specialty Start Date End Date Hector Dai MD [address] [place] [address] PCP - General Family Medicine 10/12/24
--- OUTSIDE RECORDS SUMMARY | 2024-11-15 12:40 | XMS_ITS | Encounter Summary ---
Author Organization [facility] Address [facility] [place] [address] Care Team Providers Care Radiology Tech Name Role Phone Anita Sherwood SUMA Primary Care Provider [phone] Source Comments In the event this information is protected by the Federal Confidentiality of Alcohol and Drug AbusePatient Records regulations: The Federal rules restrict any use of the information to criminally investigate or prosecute any alcohol or drug abuse patient.[facility] Encounter Details Date Type Department Care Team (Late st Contact Info) Description 09/10/2023 Patient Msg Head and Neck [place] [address] [place] [id number] Provider, Rito CHRIS Social History Tobacco Use Types Packs/Day Years [...] is lower risk 9 01/07/2023 Data from: https://www.neighborhoodatlas.[facility]/. Last address used for calculation [address] 01/07/2023 Comments No Sex and Gender Information Value Date Recorded Sex Assigned at Not on file Legal Sex Female 3:42 PM EDT Gender Identity Not on file Sexual Orientation Not on file documented as of this encounter Functional Status * Are you deaf or do you have serious difficulty hearing? Answer Date of Assessment Author No 09/04/2023 9:00 AM EDT Audelia Avila RN * Are you blind or do you have serious difficulty seeing, even when wearing glasses? Answer Date of Assessment Author No 09/04/2023 9:00 AM EDT Audelia Avila RN * Do you have serious difficulty walking or climbing stairs? Answer Date of Assessment Author No 09/04/2023 9:00 AM SHARAT Audelia Avila RN * Do you have difficulty dressing or bathing? Answer Date of Assessment Author No 09/04/2023 9:00 AM EDT Audelia Avila RN * Because of a physical, mental, or emotional condition, do you have difficulty doing errands alone such as visiting a doctor's office or shopping? Answer Date of Assessment Author No 09/04/2023 9:00 AM Audelia Valdivia RN documented as of this encounter Mental Status * Because of a physical, mental, or emotional condition, do you have serious difficulty concentrating, remembering, or making decisions? Answer Entry Date Author No 09/04/2023 9:00 AM Audelia Valdivia RN documented in this encounter Plan of Treatment Not on file documented as of this encounter Visit Diagnoses Not on filedocumented in this encounter Care Teams Radiology Tech Relationship Specialty Start Date End Date Anita Sherwood NP [address] [place] [address] PCP - General Family Medicine 08/17/23 documented as of this encounter
--- OUTSIDE RECORDS SUMMARY | 2024-11-15 12:40 | XMS_ITS | Encounter Summary ---
Author Organization [facility] Address [id number] [address] [place] [address] Care Team Providers Care Talent Acquisition Partner Name Role Phone Hector Dai MD Primary Care Provider [phone] Encounter Details Date Type Department Care Team (Late st Contact Info) Description 03/21/2024 [facility] - Family [facility] [address] [place] [address] Angel, Barbara, DESIZING MACHINE BACK TENDER Social History Tobacco Use Types Packs/Day Years [...] Telephone Encounter - Barbara Ortiz CMA - 03/21/2024 11:00 AM EST Pt called wanted to know if you can send orders to [facility] or can we draw her thyroid here ? Bc she hasneeds a refill of her levothryroxine * Telephone Encounter - ANDREW Ibrahim - 03/21/2024 11:00 AM EST She can have them drawn here for her appt on the * Telephone Encounter - Barbara Ortiz CMA - 03/21/2024 11:00 AM EST Called pt read note she said ok thank you documented in this encounter Plan of Treatment Not on file documented as of this encounter Visit Diagnoses Not on filedocumented in this encounter Additional Health Concerns Assessment Noted Time PHQ-9 Depression Total Score: 0 11/23/19 24 4:08 PM EDT documented as of this encounter Care Teams Talent Acquisition Partner Relationship Specialty Start Date End Date Hector Dai MD [address] [place] [address] PCP - General Family Medicine 10/12/24 documented as of this encounter
--- OUTSIDE RECORDS SUMMARY | 2024-11-15 12:40 | XMS_ITS | Clinical Summary ---
Author Organization [facility] Address [address] [place] [address] Care Team Providers Care Sap Crm Developer Name Role Phone Anita Sherwood NP Primary Care Provider Allergies No known active allergies Medications omeprazole (PRILOSEC) 40 mg capsule Take 40 mg by mouth once daily. Active ondansetron (ZOFRAN) 4 mg tablet Take 4 mg by mouth every 8 hours as needed for nausea/vomi ting. Active hydrOXYzine pamoate (VISTARIL) 25 mg capsule Take 25 mg by mouth once daily. Active sertraline (ZOLOFT) 50 mg tablet Take 50 mg by mouth once daily. Active levothyroxine (SYNTHROID) 150 mcg tablet Take 1 tablet by mouth daily at 6 am. 30 tablet 10/04/2023 Active Active Problems Problem Noted Date Diagnosed Date Hypothyroidism (acquired) 10/15/2023 GERD (gastroesophageal reflux disease) Assessment & Plan (08/25/2023 7:58 AM EDT): Currently controlled with dietary and lifestyle modifications. 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 Thyroid nodule 06/23/2018 Family history of thyroid disease 06/23/2018 S/P tonsillectomy 07/12/2017 Dysfunction of both eustachian tubes 05/13/2017 History of otitis media 05/13/2017 Tonsillar hypertrophy 05/13/2017 Family History Medical History Relation Comments Hypertension Father Obesity Father ALS Maternal Grandfather Hypertension Maternal Grandfather Obesity Maternal Grandmother wt was >300 lbs prior to bariatric surgery Thyroid Cancer Maternal Grandmother Obesity Mother Thyroid Mother hyperthyroid Paternal Grandmother Anesthesia Problems No Family History Relation Status Comments Father Maternal Grandfather Maternal Grandmother Mother Paternal Grandmother Social History Tobacco Use Types Packs/Day Years Used Date Smoking Tobacco: Never Passive Smoke Exposure: Yes Smokeless Tobacco: Never Tobacco Cessation:Counseling Given: Not Answered Comments:mom & dad both smoke in house Alcohol Use Standard Drinks/Week Comments No 0 (1 standard drink = 0.6 oz pur e alcohol) Area Deprivation Index Answer Date Ronnie rded National Score (1-100), lower number is lower ri sk 93 05/12/2024 State Score (1-10), lower number is lower risk 9 05/12/2024 Data from: https://www.neighborhoodatlas.medicine.[facility].edu/. Last address used for calculation [address] 05/12/2024 Comments No Sex and Gender Information Value Date Recorded Sex Assigned at Not on file Legal Sex Female 3:42 PM EDT Gender Identity Not on file Sexual Orientation Not on file Last Filed Vital Signs Vital Sign Reading Time Taken Comments Blood Pressure 117/67 09/04/2023 5:50 AM EDT Pulse 84 09/04/2023 5:50 AM EDT Temperature 36.8 C (98.3 F) 09/04/2023 5:50 AM EDT Respiratory Rate 16 09/04/2023 5:50 AM EDT Oxygen Saturation 100% 09/04/2023 5:50 AM EDT Inhaled Oxygen Concentration - - Weight 98.7 kg (217 lb 9.5 oz) 08/25/2023 7:09 A M EDT Height 160 cm (5' 3 ) 08/25/2023 7:09 AM EDT Body Mass Index 38.55 08/25/2023 7:09 AM EDT Plan of Treatment Health Maintenance Due Date Last Done Comments Peds To Adult Transition Ini tial Discussion 2016 Peds To Adult Transition Telma ual Assessment 2018 Meningococcal B Vaccine (1 o f 2 - Standard) 2020 Annual PCP Team Chronic Dise ase Visit 2022 Anxiety Screening 2022 Chlamydia Screening (18-24) 2022 Depression Screening 2022 GC (Gonorrhea) Screening (18-24) 2022 HIV Screening 2022 Hepatitis C Screening 2022 Covid-19 Vaccine (3 - 2023-2 5 season) 2024 11/11/2020, 10/21/2020 Influenza Vaccine (Season Ended) 2025 02/22/2023, 03/14/2020, 06/23/2005 DTaP,Tdap,Td Vaccine (7 - Td or Tdap) 11/24/2025 11/25/2015, 09/09/2009, 06/20/2007, Additional history exists Hepatitis B Vaccine Completed 06/23/2005, 2004, 2004 HPV Vaccine Completed 12/26/2021, 11/25/2015 Insurance BLUE CARD PPO OOS BLUE ACCESS PPO BLUE CARD PPO OOS BLUE ACCESS PPO Care Teams Sap Crm Developer Relationship Specialty Start Date End Date Anita Sherwood NP [address] [place] [address] PCP - General Family Medicine 08/17/23
--- OUTSIDE RECORDS SUMMARY | 2024-11-15 12:40 | XMS_ITS | Encounter Summary ---
Author Organization [employer] Address [id number] [address] [place] [address] Care Team Providers Care Personal Health Coach Name Role Phone Hector Dai MD Primary Care Provider [phone] Encounter Details Date Type Department Care Team (Late st Contact Info) Description 03/03/2024 Orders Only [facility] Internal Medicine - Family Medicine [address] [place] [phone] Anita Sherwood, DEBURRING TECHNICIAN-FLOOR TRADER [address] [place] [address] Social History Tobacco Use Types Packs/Day Years [...] documented as of this encounter Care Teams Personal Health Coach Relationship Specialty Start Date End Date Hector Dai MD [address] [place] [address] PCP - General Family Medicine 10/12/24 documented as of this encounter
--- OUTSIDE RECORDS SUMMARY | 2024-11-15 12:40 | XMS_ITS | Encounter Summary ---
Author Organization [facility] Address [address] [place] [address] Care Team Providers Care Head Counselor Name Role Phone Anita Sherwood SUMA Primary Care Provider Source Comments In the event this information is protected by the Federal Confidentiality of Alcohol and Drug AbusePatient Records regulations: The Federal rules restrict any use of the information to criminally investigate or prosecute any alcohol or drug abuse patient.[facility] Encounter Details Date Type Department Care Team (Late st Contact Info) Description 08/31/2023 Patient Msg Endocrinology [address] [place] [address] Yesi Pizano MD [address] [place] [address] Results Social History Tobacco Use Types Packs/Day Years [...] is lower risk 9 01/07/2023 Data from: https://www.neighborhoodatlas.medicine.[facility].edu/. Last address used for calculation [address] 01/07/2023 Comments No Sex and Gender Information Value Date Recorded Sex Assigned at Not on file Legal Sex Female 3:42 PM EDT Gender Identity Not on file Sexual Orientation Not on file documented as of this encounter Plan of Treatment Not on file documented as of this encounter Visit Diagnoses Not on filedocumented in this encounter Care Teams Head Counselor Relationship Specialty Start Date End Date Anita Sherwood NP [address] [place] [address] PCP - General Family Medicine 08/17/23 documented as of this encounter
--- OUTSIDE RECORDS SUMMARY | 2024-11-15 12:40 | XMS_ITS | Encounter Summary ---
Author Organization [employer] Address [id number] [address] [place] [address] Care Team Providers Care Travertine Installer Name Role Phone Hector Dai MD Primary Care Provider [phone] Encounter Details Date Type Department Care Team (Late st Contact Info) Description 02/04/2024 [facility] [address] [place] [address] Susy Lee CMA Social History Tobacco Use Types Packs/Day [...] encounter Miscellaneous Notes * Telephone Encounter - Susy Lee CMA - 02/04/2024 9:23 AM EDT This patient is scheduled today at 2:30pm for her EGD for Dysphagia * Telephone Encounter - Rene Pittman DO - 02/04/2024 9:23 AM EDT Message noted. documented in this encounter Plan of Treatment Not on file documented as of this encounter Visit Diagnoses Not on filedocumented in this encounter Additional Health Concerns Assessment Noted Time PHQ-9 Depression Total Score: 0 11/23/19 24 4:08 PM EDT documented as of this encounter Care Teams Travertine Installer Relationship Specialty Start Date End Date Hector Dai MD [address] [place] [address] PCP - General Family Medicine 10/12/24 documented as of this encounter
--- OUTSIDE RECORDS SUMMARY | 2024-11-15 12:40 | XMS_ITS | Encounter Summary ---
Author Organization [facility] Address [address] [place] [address] Care Team Providers Care Waste Reclaimer Name Role Phone Anita Sherwood SUMA Primary Care Provider Source Comments In the event this information is protected by the Federal Confidentiality of Alcohol and Drug AbusePatient Records regulations: The Federal rules restrict any use of the information to criminally investigate or prosecute any alcohol or drug abuse patient.[facility] Encounter Details Date Type Department Care Team (Late st Contact Info) Description 09/01/2023 Patient Msg Endocrinology [address] [place] [address] Yesi Pizano MD [address] [place] [address] Testosterone Social History Tobacco Use Types Packs/Day Years [...] is lower risk 9 01/07/2023 Data from: https://www.neighborhoodatlas.medicine.[facility].edu/. Last address used for calculation [address] [...] on filedocumented in this encounter Care Teams Waste Reclaimer Relationship Specialty Start Date End Date Anita Sherwood NP [address] [place] [address] PCP - General Family Medicine 08/17/23 documented as of this encounter
--- OUTSIDE RECORDS SUMMARY | 2024-11-15 12:40 | XMS_ITS | Encounter Summary ---
Author Organization [facility] Address [facility] [place] [address] Care Team Providers Care Substation Wireman Name Role Phone Anita Sherwood SUMA Primary Care Provider [phone] Source Comments In the event this information is protected by the Federal Confidentiality of Alcohol and Drug AbusePatient Records regulations: The Federal rules restrict any use of the information to criminally investigate or prosecute any alcohol or drug abuse patient.[facility] Encounter Details Date Type Department Care Team (Late st Contact Info) Description 09/10/2023 Patient Msg [facility] [place] [address] [place] [address] Provider, Rito CHRIS Social History Tobacco Use [...] is lower risk 9 01/07/2023 Data from: https://www.neighborhoodatlas.[facility]/. Last address used for calculation [...] on filedocumented in this encounter Care Teams Substation Wireman Relationship Specialty Start Date End Date Anita Sherwood NP [address] [place] [address] PCP - General Family Medicine 08/17/23 documented as of this encounter
[2024-11-15 12:51] LABS: Glucose Urine UA NEGATIVE (NEGATIVE)
[2024-11-15 12:58] LABS: Cast Seen? NONE SEEN #/LPF (NONE SEEN); Crystals Seen? None Seen #/HPF (None Seen); Urine Culture Indicated NO
[2024-11-15 13:40] LABS: Hematocrit 39.5 % (36.0-48.0); Hemoglobin 13.6 g/dL (12.0-16.0); Immature Granulocytes Abs Auto 0.01 10^3/uL (0.00-0.03); Immature Granulocytes Pct Auto 0.2 % (0.0-0.5); Lymphocytes Absolute Auto 1.7 10^3/uL (1.2-3.8); Mean Corpuscular HGB Conc 34.4 g/dL (29.9-35.2); Mean Corpuscular Hemoglobin 28.9 pg (26.7-34.0); Mean Corpuscular Volume 84.0 fL (81.0-99.0); Platelet Count 264 10^3/uL (150-450); Red Blood Count 4.70 10^6/uL (4.20-5.40); White Blood Count 5.4 10^3/uL (4.0-11.0)
[2024-11-15 14:03] LABS: Alanine Aminotransferase 26 U/L (14-59); Albumin Globulin Ratio 1.2; Albumin Level 3.8 g/dL (3.4-5.0); Alkaline Phosphatase 58 U/L (46-116); Anion Gap 12.6; Aspartate Amino Transferase 15 U/L (15-37); Blood Urea Nitrogen 10.0 mg/dL (7.0-18.0); Calcium 9.1 mg/dL (8.5-10.1); Carbon Dioxide 24.1 mmol/L (21.0-32.0); Chloride 105 mmol/L (98-107); Estimated GFR (African America >60 (>=60 mL/min/1.73m^2); Estimated GFR (Non-African Ame >60 (>=60 mL/min/1.73m^2); Globulin 3.3 g/dL; Glucose 110 mg/dL (74-106); Potassium 3.7 mmol/L (3.5-5.1); Sodium 138 mmol/L (136-145); Total Protein 7.1 g/dL (6.4-8.2)
[2024-11-15 14:25] VITALS: BP 107/70; PULSE 88; TEMP 36.4; O2SAT 99
[2024-11-17 06:11] LABS: Neisseria gonorrhoeae, NAA Negative (Negative)
== END 2024-11-15 14:27 | disposition home or self-care (01) ==
PROVIDERS: Nurse Practitioner; Emergency Provider Emergency Medicine; PCP Family Medicine
DX: O26.891 Other specified pregnancy related conditions, first trimester (principal); R10.9 Unspecified abdominal pain; Z3A.01 Less than 8 weeks gestation of pregnancy
CPT/HCPCS: 36415; 76817; 80053; 81001; 84702; 85025; 87210; 87491; 87591; 99285

== ENCOUNTER 2024-11-18 10:22 | Outpatient (RCR) | payer BC, SELFPAY | END 2024-12-14 17:04 | disposition home or self-care (01) | LOC: LAB 10:22 | PROVIDERS: PCP Family Medicine; Visit Provider Obstetrics & Gynecology | DX: Z51.81 Encounter for therapeutic drug level monitoring (principal); Z32.01 Encounter for pregnancy test, result positive | CPT/HCPCS: 36415; 84702 ==

== ENCOUNTER 2024-12-16 10:26 | Outpatient (OUT) | payer BC, OTHER, SELFPAY ==
--- OUTSIDE RECORDS SUMMARY | 2024-11-13 17:12 | XMS_ITS ---
Author Organization The [facility] in [place] Address [address] [place] [address] Care Team Providers Care Data Center Architect Name Role Phone Blair Dai Primary Care Provider REASON FOR VISIT thyroid meds Encounters Encounter Location Date Provider Diagnosis [facility] [address] [place] [address] 11/13/2024 Blair Dai Plan Of Treatment No Information Progress Notes * ROLDANSheyla DOWELLDOB: 5 (19 yo F)Acc No.[id number]:11/13/2024 Patient: Sheyla JO :2005 A ge:19 Y S ex:Female Address:[address] [place] [address], [address] * true * Date: Generated for Sudhakari ng/Fasisg/eTransmitting on: 0 12/16/2024 10:31 AM EDT
--- OUTSIDE RECORDS SUMMARY | 2024-11-15 15:10 | XMS_ITS ---
Author Organization The [facility] [place] Address [address] [place] [address] Care Team Providers Care Ore Washer Name Role Phone LucianoBlair koenig Primary Care Provider [phone] Results Component Value Reference Range Notes PREG QUANT HCG Reviewed date:11/18/2024 07:53:13 PM Interpretation: Performing Lab: Notes/Report: [facility] , HCG Quantitative 4630 5-50 0.2-1 WEEK 50-500 1-2 WEEKS 100-5,000 2-3 WEEKS 500-10,000 3-4 WEEKS 1,000-50,000 4-5 WEEKS 10,000-100,000 5-6 WEEKS 15,000-200,000 6-8 WEEKS 10,000-100,000 2-3 MONTHS Performing Lab: see note ML - [facility] REASON FOR VISIT check on ER Encounters Encounter Location Date Provider Diagnosis [facility] [address] [place] [address] 11/15/2024 Blair Dai Positive test Z32.01 Assessments Encounter Date Diagnosis (ICD Code) Assessment Notes Treatment Notes Treatment Clinical Notes Section Notes 11/15/2024 Positive test (ICD-10 - Z32.01) Plan Of Treatment No Information Progress Notes * VENU SheylaDOB: 5 (19 yo F)Acc No.[id number]:11/15/2024 Patient: Tosin HUNG Sheyla :2005 A ge:19 Y S ex:Female Address:[address] [place] [address], [place] [address] Subjective: * Chief Complaints: * c heck on ER * Medical History: * Surgical History: * Hospitalization/Major Diagno stic Procedure: * Medications: Objective: * Vitals: * Physical Examination: Assessment: * Assessment: 1. P ositive test - Z32.01 (Primary) Plan: * Treatment: * Procedure Codes: * true * Date: Generated for Joshua wang/Jolene/Nuhasmitting on: 0 12/16/2024 10:31 AM EDT
--- OUTSIDE RECORDS SUMMARY | 2024-11-20 03:18 | XMS_ITS ---
Author Organization The [facility] [place] Address [address] [place] [address] Care Team Providers Care Rn Field Case Manager Name Role Phone Blair Dai Primary Care Provider REASON FOR VISIT work excuse Encounters Encounter Location Date Provider Diagnosis [facility] [address] [place] [address] 11/20/2024 Blair Dai Plan Of Treatment No Information Progress Notes * ROLDANPEGGYSANDRASheyal DOCKERYDOB: 5 (19 yo F)Acc No.[id number]:11/20/2024 Patient: Sheyla JO :2005 A ge:19 Y S ex:Female Address:[address] [place] [address], [address] * true * Date: Generated for Printi ng/Fasisg/eTransmitting on: 0 12/16/2024 10:31 AM EDT
--- OUTSIDE RECORDS SUMMARY | 2024-12-07 14:30 | XMS_ITS | Encounter Summary ---
Author Organization [facility] Address [address] [place] [address] Care Team Providers Care Sludge Filtration Attendant Name Role Phone Hector Dai MD Primary Care Provider [phone] Reason for Visit * Reason Comments Amenorrhea Encounter Details Date Type Department Care Team (Late st Contact Info) Description 12/07/2024 2:30 PM EDT Initial [facility] [address] [place] [address] [place] [address] [place]: [id number] Social History Tobacco Use Types [...] dipstick manually resulted , unspecified gestational age ([facility]) - Type and screen; Future - ABO/Rh; Future - CBC and differential - Hemoglobin A1c - RPR - Rubella antibody, IgG - Hepatitis B surface antigen - Hepatitis C antibody - HIV-1 and HIV-2 antibodies - Rapid drug screen, urine; Future Encounter for supervision of normal first in first trimester ([facility]) - Rapid drug screen, urine; Future [...] or undercooked meat, and stay away from [facility]. Patient has also been advised to [...] Routine [facility] [address] [place] [phone] Gerardo Meredith DO [address] [place] [address] Scheduled Orders Name Type Priority Associated Diagnoses Orde r Schedule Type and screen Lab Routine Missed menses , unspecified gestational age ([facility]) Expected: 12/07/2024 (Approximate), Expires: 12/07/2025 ABO/Rh Lab Routine Missed menses , unspecified gestational age ([facility]) Expected: 12/07/2024 (Approximate), Expires: 12/07/2025 CBC and differential Lab Routine Missed menses , unspecified gestational age ([facility]) Ordered: 12/07/2024 Hemoglobin A1c Lab Routine Missed menses , unspecified gestational age ([facility]) Ordered: 12/07/2024 RPR Lab Routine Missed menses , unspecified gestational age ([facility]) Ordered: 12/07/2024 Rubella antibody, IgG Lab Routine Missed menses , unspecified gestational age ([facility]) Ordered: 12/07/2024 Hepatitis B surface antigen Lab Routine Missed menses , unspecified gestational age ([facility]) Ordered: 12/07/2024 Hepatitis C antibody Lab Routine Missed menses , unspecified gestational age ([facility]) Ordered: 12/07/2024 HIV-1 and HIV-2 antibodies Lab Routine Missed menses , unspecified gestational age ([facility]) Ordered: 12/07/2024 Urine culture Microbiology Routine Missed menses Ordered: 12/07/2024 Rapid drug screen, urine Lab Routine , unspecified gestational age ([facility]) Encounter for supervision of normal first in first trimester ([facility]) Expected: 12/07/2024 (Approximate), Expires: 12/07/2025 documented [...] Diagnosis Missed menses , unspecified gestational age ([facility]) Encounter for supervision of normal first in first trimester ([facility]) documented in this encounter Care Teams Sludge Filtration Attendant Relationship Specialty Start Date End Date Hector Dai MD [address] [place] [address] PCP - General Family Medicine 04/07/24 documented as of this encounter
--- OUTSIDE RECORDS SUMMARY | 2024-12-16 10:31 | XMS_ITS | Encounter Summary ---
Author Organization [facility] Address [id number] [address] [place] [address] Care Team Providers Care Insulator Technician Name Role Phone Hector Dai MD Primary Care Provider [phone] Encounter Details Date Type Department Care Team (Late st Contact Info) Description 11/29/2023 Orders Only [facility] Internal Medicine - Family Medicine [address] [place] [address] Susy Lee CMA Postoperative hypothyroidism [...] External Tsh 0.643 SUNQUEST 11/26/2023 Anita Sherwood AIR CARRIER MAINTENANCE INSPECTOR-SOLDER SPRAYER LAB BLOOD ORDERABLES Fin al Result SUNQUEST documented in this encounter Visit Diagnoses Diagnosis Postoperative hypothyroidism Postsurgical hypothyroidism documented in this encounter Additional Health Concerns Assessment Noted Time PHQ-9 Depression Total Score: 0 11/23/19 24 4:08 PM EDT documented as of this encounter Care Teams Insulator Technician Relationship Specialty Start Date End Date Hector Dai MD [address] [place] [address] PCP - General Family Medicine 10/12/24 documented as of this encounter
--- OUTSIDE RECORDS SUMMARY | 2024-12-16 10:31 | XMS_ITS | Encounter Summary ---
Author Organization [employer] [facility] Address [id number] [address] [place] [address] Care Team Providers Care Safety Net Maker Name Role Phone Hector Dai MD Primary Care Provider [phone] Encounter Details Date Type Department Care Team (Late st Contact Info) Description 12/06/2023 [facility]phone [facility] - Family Medicine [address] [place] [address] Angel, Barbara, MARBLE INSTALLER SUPERVISOR Social History Tobacco Use Types Packs/Day Years [...] documented as of this encounter Care Teams Safety Net Maker Relationship Specialty Start Date End Date Hector Dai MD [address] [place] [address] PCP - General Family Medicine 10/12/24 documented as of this encounter
--- OUTSIDE RECORDS SUMMARY | 2024-12-16 10:31 | XMS_ITS | Encounter Summary ---
Author Organization [facility] Address [address] [place] [address] Care Team Providers Care Watch Manufacturing Supervisor Name Role Phone Hector Dai MD Primary Care Provider [phone] Encounter Details Date Type Department Care Team (Late st Contact Info) Description 01/14/2024 Abstract [facility] [place] [phone] Gerardo Meredith DO [address], [place] [address] Social History Tobacco Use Types Packs/Day Years [...] Info) Description 01/02/2025 11:10 AM EDT Routine EUGEN[facility] MAY[facility] [place] [phone] Gerardo Meredith, DO [address] [place], [place] [address] documented as of this encounter Visit Diagnoses Not on filedocumented in this encounter Care Teams Watch Manufacturing Supervisor Relationship Specialty Start Date End Date Hector Dai MD [address] [place] [address] PCP - General Family Medicine 04/07/24 documented as of this encounter
--- OUTSIDE RECORDS SUMMARY | 2024-12-16 10:31 | XMS_ITS | Encounter Summary ---
Author Organization [facility] Address [address] [place] [address] Care Team Providers Care Physical Science Professor Name Role Phone Hector Dai MD Primary Care Provider [phone] Encounter Details Date Type Department Care Team (Late st Contact Info) Description 01/19/2024 Abstract [facility] [place] [phone] Gerardo Meredith DO [address], [place] [address] Social History Tobacco Use Types Packs/Day Years [...] 01/02/2025 11:10 AM EDT Routine EUGENIA MAY[facility] [place] [phone] Gerardo Meredith, DO [address], [place] [phone] documented as of this encounter Visit Diagnoses Not on filedocumented in this encounter Care Teams Physical Science Professor Relationship Specialty Start Date End Date Hector Dai MD [address] [place] [address] PCP - General Family Medicine 04/07/24 documented as of this encounter
--- OUTSIDE RECORDS SUMMARY | 2024-12-16 10:31 | XMS_ITS | Encounter Summary ---
Author Organization [facility] Address [id number] [address] [place] [address] Care Team Providers Care Wheel Alignment Technician Name Role Phone Hector Dai MD Primary Care Provider [phone] Encounter Details Date Type Department Care Team (Late st Contact Info) Description 11/02/2023 Orders Only [facility] Internal Medicine - Family Medicine [address] [place] [address] External, Scanning Provider Social History [...] documented as of this encounter Care Teams Wheel Alignment Technician Relationship Specialty Start Date End Date Hector Dai MD [address] [place] [address] PCP - General Family Medicine 10/12/24 documented as of this encounter
--- OUTSIDE RECORDS SUMMARY | 2024-12-16 10:31 | XMS_ITS | Encounter Summary ---
Author Organization [facility] Address [address] [place] [address] Care Team Providers Care Marine Surveyor Name Role Phone Hector Dai MD Primary Care Provider [phone] Encounter Details Date Type Department Care Team (Late st Contact Info) Description 12/31/2023 Clinisync Result Encounter [facility] External Department Unsolicited Adolfo Meredith DO [address] [place] [address] Social History Tobacco Use Types Packs/Day Years [...] 01/02/2025 11:10 AM EDT Routine [facility] [address] [place] [phone] Adolfo Meredith DO [address] [place] [address] documented as of this encounter Procedures Procedure Name Priority Date/Time Associated Diagnosis Comments ECG 12-LEAD 12/31/2023 10:35 AM EDT documented in this encounter Results * ECG 12-LEAD (12/31/2023 10:35 AM EDT) Anatomical Region Laterality Modality Other 12/31/2023 10:3 5 AM EDT Narrative 12/31/2023 6:35 [place] [address] Electrocardiograph Report Signed Patient: SACHA LEA IM MR#: [id number] : 2005 Acct:[id number] Age/Sex: 18 / F ADM Date: 12/31/23 Loc: PST Attending Dr: Adolfo Meredith D.O. Ordering Physician: Adolfo Meredith D.O. 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 Signed By: 12/31/23 1835 DD/ 1035 TD/TT: Hardware Engineering Manager: Procedure Note Radiology, Radiologist, MD - 12/31/2023 [facility] [place] [id number] Electrocardiograph Report Signed Patient: SACHA LEA IMMR#: [id number] : 2005Acct:[id number] Age/Sex: 18 / FADM Date: 12/31/23 Loc: PST Attending Dr: Adolfo Meredith D.O. Ordering Physician: Adolfo Meredith D.O. 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 Signed By:12/31/23 1835 DD/ 1035 TD/TT: Hardware Engineering Manager: us Adolfo Meredith DO [facility] Final Result documented in this encounter Visit Diagnoses Not on filedocumented in this encounter Care Teams Marine Surveyor Relationship Specialty Start Date End Date Hector Dai MD [address] [place] [address] PCP - General Family Medicine 04/07/24 documented as of this encounter
--- OUTSIDE RECORDS SUMMARY | 2024-12-16 10:31 | XMS_ITS | Encounter Summary ---
Author Organization [facility] Address [address] [place] [address] Care Team Providers Care Town Marshal Name Role Phone Hector Dai MD Primary Care Provider [phone] Encounter Details Date Type Department Care Team (Late st Contact Info) Description 01/03/2024 Abstract [facility] [place] [phone] Gerardo Meredith DO [address], [place] [address] Social History Tobacco Use Types Packs/Day Years [...] 01/02/2025 11:10 AM EDT Routine EUGENIA MAY[facility] [place] [address] Gerardo Meredith, DO [address], [place] [id number] documented as of this encounter Visit Diagnoses Not on filedocumented in this encounter Care Teams Town Marshal Relationship Specialty Start Date End Date Hector Dai MD [address] [place] [address] PCP - General Family Medicine 04/07/24 documented as of this encounter
--- OUTSIDE RECORDS SUMMARY | 2024-12-16 10:31 | XMS_ITS | Encounter Summary ---
Author Organization [facility] Address [address] [place] [address] Care Team Providers Care Credit Intern Name Role Phone Hector Dai MD Primary Care Provider [phone] Encounter Details Date Type Department Care Team (Late st Contact Info) Description 11/01/2023 Clinisync Result Encounter [facility] External Department Unsolicited Adolfo Meredith DO [address] [place] [address] Social History Tobacco Use Types Packs/Day Years [...] 01/02/2025 11:10 AM EDT Routine [facility] [address] [place] [phone] Adolfo Meredith DO [address] [place] [address] documented as of this encounter Procedures Procedure Name Priority Date/Time Associated Diagnosis Comments US PELVIS W/ TRANSVAGINAL 11/01/2023 6:49 AM EDT documented in this encounter Results * US PELVIS W/ TRANSVAGINAL (11/01/2023 6:49 AM EDT) Anatomical Region Laterality Modality Other 11/01/2023 6:49 AM EDT Narrative 11/01/2023 6:52 [place] [address] Ultrasound Report Signed Patient: SHEYLA LEA MR#: [id number] : 2005 Acct:[id number] Age/Sex: 18 / F ADM Date: 10/29/23 Loc: US Attending Dr: Adolfo Meredith D.O. Ordering Physician: Adolfo Meredith D.O. Date of Service: 10/29/23 Procedure(s): US pelvis w/ transvaginal Accession Number(s): [id number] cc: Adolfo Meredith D.O.; MAXWELL ELMORE [place] [id number] Patient Name: SHEYLA LEA MRN: [id number] date: 2005 Sex: F Assigned Patient Location: Current Patient Location: Accession/Order Number: [id number] Exam Date: 10/29/2023 09:03 Report Date: 11/01/2023 [...] Posadas M.D. Signed By: 11/01/2352 DD/ TD/TT: Bed Laster: Procedure Note Radiology, Radiologist, MD - 11/01/2023 [place] [address] Ultrasound Report Signed Patient: SHEYLA LEA IMMR#: [id number] : 2005Acct:[id number] Age/Sex: 18 / FADM Date: 10/29/23 Loc: US Attending Dr: Adolfo Meredith D.O. Ordering Physician: Adolfo Meredith D.O. Date of Service: 10/29/23 Procedure(s): US pelvis w/ transvaginal Accession Number(s): [id number] cc: Adolfo Meredith D.O.; MAXWELL ELMORE [place] [id number] Patient Name: SHEYLA LEA MRN: [id number] date: 2005 Sex: F Assigned Patient Location: US Current Patient Location: Accession/Order Number: [id number] Exam Date: 10/29/2023 09:03 Report Date: 11/01/2023 [...] M.D. Signed By:11/01/23 0652 DD/ 0649 TD/TT: Bed Laster: us [facility] Final Result documented in this encounter Visit Diagnoses Not on filedocumented in this encounter Care Teams Credit Intern Relationship Specialty Start Date End Date Hector Dai MD [address] [place] [address] PCP - General Family Medicine 04/07/24 documented as of this encounter
--- OUTSIDE RECORDS SUMMARY | 2024-12-16 10:31 | XMS_ITS | Patient Health Record ---
Author Organization [facility] in [place] Address [address] [place] [address] Care Team Providers Care Extrusion Die Coordinator Name Role Phone Blair Dai Primary Care Provider Allergies No Known Allergies Results Component Value Reference Range Notes PREG QUANT HCG Reviewed date:11/18/2024 07:53:13 PM Interpretation: Performing Lab: Notes/Report: [facility] , HCG Quantitative 4630 10,000-100,000 5-6 WEEKS 100-5,000 2-3 WEEKS 500-10,000 3-4 WEEKS 5-50 0.2-1 WEEK 15,000-200,000 6-8 WEEKS 1,000-50,000 4-5 WEEKS 10,000-100,000 2-3 MONTHS 50-500 1-2 WEEKS Performing Lab: see note ML - [facility] LB CBC AUTO DIFF Reviewed date:11/15/2024 07:10:23 PM Interpretation: Performing Lab: Notes/Report: [facility] , White Blood Count 5.4 4.0-11.0 10 3/uL Red Blood Count 4.70 4.20-5.40 10 6/uL Hemoglobin 13.6 12.0-16.0 g/dL Hematocrit 39.5 36.0-48.0 % Mean Corpuscular Volume 84.0 81.0-99.0 fL Mean Corpuscular Hemoglobin 28.9 26.7-34.0 pg Mean Corpuscular HGB Conc 34.4 29.9-35.2 g/dL Red Cell Distribution Width 13.2 11.0-15.0 % Platelet Count 264 150-450 10 3/uL Mean Platelet Volume 10.9 9.5-13.5 fL Neutrophils Percent Auto 56.3 43.0-75.0 % Lymphocytes Percent Auto 31.6 20.5-60.0 % Monocytes Percent Auto 9.3 1.7-12.0 % Eosinophils Percent Auto 1.9 0.9-7.0 % Basophils Percent Auto 0.7 0.2-2.0 % Immature Granulocytes Pct Auto 0.2 0.0-0.5 % Neutrophils Absolute Auto 3.0 1.4-6.5 10 3/uL Lymphocytes Absolute Auto 1.7 1.2-3.8 10 3/uL Monocytes Absolute Auto 0.5 0.3-0.8 10 3/uL Eosinophils Absolute Auto 0.1 0.0-0.7 10 3/uL Basophils Absolute Auto 0.0 0.0-0.1 10 3/uL Immature Granulocytes Abs Auto 0.01 0.00-0.03 10 3/uL Performing Lab: see note ML - [facility] LB PREG QUANT HCG Reviewed date:11/15/2024 07:10:23 PM Interpretation: Performing Lab: Notes/Report: [facility] , HCG Quantitative 990 500-10,000 3-4 WEEKS 50-500 1-2 WEEKS 1,000-50,000 4-5 WEEKS 10,000-100,000 5-6 WEEKS 5-50 0.2-1 WEEK 15,000-200,000 6-8 WEEKS 10,000-100,000 2-3 MONTHS 100-5,000 2-3 WEEKS Performing Lab: see note ML - [facility] LB PROF 14(COMP METB) Reviewed date:11/15/2024 07:10:23 PM Interpretation: Performing Lab: Notes/Report: [facility] , Sodium 138 136-145 mmol/L Potassium 3.7 3.5-5.1 mmol/L Chloride 105 98-107 mmol/L Carbon Dioxide 24.1 21.0-32.0 mmol/L Anion Gap 12.6 Glucose 110 74-106 mg/dL Blood Urea Nitrogen 10.0 7.0-18.0 mg/dL Creatinine 0.70 0.55-1.02 mg/dL Estimated GFR ( Magda >60 >=60 mL/min/1.73m 2 Estimated GFR (Non- Kanchan >60 >=60 mL/min/1.73m 2 BUN Creatinine Ratio 14.3 Calcium 9.1 8.5-10.1 mg/dL Bilirubin Total 0.3 0.2-1.0 mg/dL Aspartate Amino Transferase 15 15-37 U/L Alanine Aminotransferase 26 14-59 U/L Alkaline Phosphatase 58 46-116 U/L Total Protein 7.1 6.4-8.2 g/dL Albumin Level 3.8 3.4-5.0 g/dL Globulin 3.3 Albumin Globulin Ratio 1.2 Performing Lab: see note ML - [facility] LB UA (CLEAN or CATCH) PROFESSIONAL NURSING TUTOR or M ICRO IF IND. Reviewed date:11/15/2024 07:10:23 PM Interpretation: Performing Lab: Notes/Report: [facility] , Color Urine LT. YELLOW YELLOW Clarity Urine CLEAR CLEAR Specific [place] Urine <=1.005 1.005-1.025 pH Urine 6.0 5.0-9.0 Protein Urine NEGATIVE NEG/TRACE mg/dL Glucose Urine UA NEGATIVE NEGATIVE mg/dL Bilirubin Urine NEGATIVE NEGATIVE Ketones Urine NEGATIVE NEGATIVE mg/dL Blood Urine NEGATIVE NEGATIVE Nitrite Urine NEGATIVE NEGATIVE Urobilinogen Urine 0.2 0.2-1.0 EU/dL Leukocyte Esterase Urine TRACE NEGATIVE Urine Microscopic Indicated YES Performing Lab: see note - [facility] LB URINE MICROSCOPIC ONLY Reviewed date:11/15/2024 07:10:23 PM Interpretation: Performing Lab: Notes/Report: [facility] , WBC Urine 2-5 NONE SEEN #/HPF RBC Urine 0-2 0-2 #/HPF Bacteria Urine TRACE NONE SEEN #/HPF Mucus Urine NONE SEEN NONE SEEN Squamous Epithelial Cell Urine FEW NONE/RARE #/LPF Crystals Seen? None Seen None Seen #/HPF Cast Seen? NONE SEEN NONE SEEN #/LPF Urine Culture Indicated NO Performing Lab: see note - [facility] LB WET PREP Reviewed date:11/15/2024 07:10:23 PM Interpretation: Performing Lab: Notes/Report: [facility] , Wet Prep Tric BV Catrina See Below For Report WP.BACT Bacteria^Bacteria Wet Prep Tric BV [place]rina Wet Prep Tric BV Catrina MO Moderate^Moderate WP.BACT Bacteria^Bacteria Wet Prep Tric BV [place] Wet Prep Tric BV [place]rina WP.CLUE Clue Ce lls^Clue Cells WP.BACT Bacteria^Bacteria Wet Prep Tric BV [place] Wet Prep Tric BV Catrina N None Seen^None Seen WP.BACT Bacteria^Bacteria Wet Prep Tric BV [place] Wet Prep Tric BV Catrina WP.ALLIE Fungal Elements^Fungal Elements WP.BACT Bacteria^Bacteria Wet Prep Tric BV [place] Wet Prep Tric BV Catrina N None Seen^None Seen WP.BACT Bacteria^Bacteria Wet Prep Tric BV [place] Wet Prep Tric BV Catrina WP.RBC RBC^RBC WP.BACT Bacteria^Bacteria Wet Prep Tric BV [place] Wet Prep Tric BV Catrina R Rare^Rare WP.BACT Bacteria^Bacteria Wet Prep Tric BV [place] Wet Prep Tric BV Catrina WP.TRICH Trichomonas^Trichomonas WP.BACT Bacteria^Bacteria Wet Prep Tric BV [place]rina Wet Prep Tric BV Catrina N None Seen^None Seen WP.BACT Bacteria^Bacteria Wet Prep Tric BV [place]rina Wet Prep Tric BV Catrina WP.WBC WBC^WBC WP.BACT Bacteria^Bacteria Wet Prep Tric BV [place]rina Wet Prep Tric BV Catrina F Few^Few WP.BACT Bacteria^Bacteria Wet Prep Tric BV Catrina Performing Lab: see note ML - [facility] US OB transvaginal Reviewed date:11/15/2024 07:10:23 PM Interpretation: Performing Lab: Notes/Report: Source Facility: [place] [address] Ultrasound Report Signed Patient: SHEYLA LEA MR#: [id number] : 2005 Acct:[id number] Age/Sex: 19 / F ADM Date: 11/15/24 Loc: ER Attending Dr: Ordering Physician: Chelsey King Date of Service: 11/15/24 Procedure(s): OB transvaginal Accession Number(s): [id number] cc: Chelsey King; Hector Dai M.D. [place] [address] Patient Name: SHEYLA LEA MRN: [id number] date: 2005 Sex: F Assigned Patient Location: ED.MAIN Current Patient Location: ED.MAIN Accession/Order Number: [id number] Exam Date: 11/15/2024 13:29 Report Date: 11/15/2024 13:31 At the request of: CHELSEY KING NP Procedure: US OB transvaginal OB ultrasound. Reason for exam:Left lower quadrant pain and cramping Comparison:None Technique: Transvaginal imaging of the uterus and ovaries were obtained. Findings: A presumed gestational sac is seen within the endometrial canal without pole and yolk sac noted. This measures 3.6 mm by MSD which is too small for dating. No free fluid is seen. Both ovaries appear unremarkable. US/US OB transvaginal Impression: A presumed gestational sac is seen within the endometrial canal without pole and yolk sac noted. No evidence of ectopic is seen such as adnexal mass or complex free fluid. Correlation with beta hCG trend and repeat ultrasound is suggested to confirm viability. Impression dictated by: Nathen Chavez Jr., D.O. 11/15/2024 1:31 PM Dictation Location: [place] [address] Electronically authenticated by: [id number] Y Date: 11/15/2024 13:31 Dictated By: Nathen Chavez M.D. Signed By: 11/15/24 1334 DD/ 1331 TD/TT: [employer] Associate: [place] [address] Ultrasound Report Signed Patient: JULIEN LEA MR#: [id number] : 2005 Acct:[id number] Age/Sex: 19 / F ADM Date: 11/15/24 Loc: ER Attending Dr: Ordering Physician: Chelsey King Date of Service: 11/15/24 Procedure(s): US OB transvaginal Accession Number(s): [id number] cc: Chelsey King; Hector Dai M.D. [address] [address] Patient Name: SHEYLA LEA MRN: [id number] date: 2005 Sex: F Assigned Patient Location: ED.MAIN Current Patient Location: ED.MAIN Accession/Order Numb er: [id number] Exam Date: 11/15/2024 13:29 Report Date: 11/15/2024 13:31 At the request of: CHELSEY KING NP Procedure: US OB transvaginal OB ultrasound. Reason for exam:Left lower quadrant pain and cramping Comparison:None Technique: Transvagi nal imaging of the uterus and ovaries were obtained. Findings: A presumed gestation al sac is seen within the endometrial canal without pole and yolk sac noted. This measures 3.6 mm by MSD which is too small for dating. No free flui d is seen. Both ovaries appear unremarkable. US/US OB transvaginal Impression: A presumed gestation al sac is seen within the endometrial canal without pole and yolk sac noted. No evidence of ectopic is seen such as adnexal mass or comp clarice free fluid. Correlation with beta hCG trend and repeat ultrasound is suggested to confirm viability. Impression dictated by: Nathen Chavez Jr., D.O. 11/15/2024 1:31 PM Dictation Location: [place] [address] Electronically authenticated by: [id number] Y Date: 11/15/2024 13:31 Dictated By: Nathen Chavez M.D. Signed By: 11/15/24 1334 DD/ 1331 TD/TT: Stockroom Associate: TSH Reviewed date:11/13/2024 09:12:54 PM Interpretation: Performing Lab: Notes/Report: [facility] , Thyroid Stimulating Hormone 12.103 0.358-3.740 uIU/mL Performing Lab: see note ML - [facility] LB PREG QUANT HCG Reviewed date:11/13/2024 09:12:54 PM Interpretation: Performing Lab: Notes/Report: [facility] , HCG Quantitative 481 5-50 0.2-1 WEEK 100-5,000 2-3 WEEKS 10,000-100,000 2-3 MONTHS 10,000-100,000 5-6 WEEKS 500-10,000 3-4 WEEKS 15,000-200,000 6-8 WEEKS 50-500 1-2 WEEKS 1,000-50,000 4-5 WEEKS Performing Lab: see note ML - [facility] LB TSH Reviewed date:07/04/2024 08:39:44 PM Interpretation: Performing Lab: Notes/Report: [facility] , Thyroid Stimulating Hormone 1.491 0.358-3.740 uIU/mL Performing Lab: see note ML - [facility] LB T4 Reviewed date:07/04/2024 08:39:44 PM Interpretation: Performing Lab: Notes/Report: [facility] , T4 Thyroxine 9.40 4.80-13.90 ug/dL Performing Lab: see note - [facility] LB GLYCOHEMOGLOBIN A1C Reviewed date:07/04/2024 08:39:44 PM Interpretation: Performing Lab: Notes/Report: [facility] , Glycohemoglobin A1C 5.5 4.5-6.2 % ADA THERAPEUTIC TARGET < 7.0 > 7.0 ADA RECOMMENDED LIMIT 4.0 - 6.0 ACTION SUGGESTED Estimated Average Glucose 111 Performing Lab: see note - [facility] FREE T3 Reviewed date:07/04/2024 08:39:44 PM Interpretation: Performing Lab: Notes/Report: [facility] , Free T3 3.75 2.18-3.98 pg/mL Performing Lab: see note - [facility] Chlamydia/GC Amplification Reviewed date:11/17/2024 04:29:05 PM Interpretation: Performing Lab: Notes/Report: vaginal [facility] , Chlamydia trachomatis, SWAPNA Negative Negative Neisseria gonorrhoeae, SWAPNA Negative Negative [address] Chente Garcia, MILY [id number] Performed at: =[facility] Last Marker: Margret Patel MD, Phone: [phone] Performing Lab: see note - [facility] LB PROF 14(COMP METB) Reviewed date:07/04/2024 08:39:44 PM Interpretation: Performing Lab: Notes/Report: [facility] , Sodium 139 136-145 mmol/L Potassium 4.0 3.5-5.1 mmol/L Chloride 105 98-107 mmol/L Carbon Dioxide 25.3 21.0-32.0 mmol/L Anion Gap 12.7 Glucose 92 74-106 mg/dL Blood Urea Nitrogen 10.0 7.0-18.0 mg/dL Creatinine 0.79 0.55-1.02 mg/dL Estimated GFR ( Magda >60 >=60 mL/min/1.73m 2 Estimated GFR (Non- Kanchan >60 >=60 mL/min/1.73m 2 BUN Creatinine Ratio 12.7 Calcium 9.2 8.5-10.1 mg/dL Bilirubin Total 0.5 0.2-1.0 mg/dL Aspartate Amino Transferase 17 15-37 U/L Alanine Aminotransferase 22 14-59 U/L Alkaline Phosphatase 69 46-116 U/L Total Protein 7.3 6.4-8.2 g/dL Albumin Level 3.8 3.4-5.0 g/dL Globulin 3.5 Albumin Globulin Ratio 1.1 Performing Lab: see note ML - [facility] LB CBC AUTO DIFF Reviewed date:07/04/2024 08:39:44 PM Interpretation: Performing Lab: Notes/Report: [facility] , White Blood Count 5.2 4.0-11.0 [...] 0.00-0.03 10 3/uL Performing Lab: see note - [facility] LB Reason For Referral Reason hypothyriod Diagnosis 1 Well adult (Z00.00) Diagnosis 2 Hypothyroid (E03.9) Referral Organization [facility] Medicine Referring Provider First Name Blair Referring Provider Last Name Suhas Referring Provider Speciality [facility] anatoliy Referred Provider Loretta Winkler Referred [...] days Active Fluocinonide 0.05 % 1 application Logging Worker ally Twice a day 07/05/2024 Active Levothyroxine [...] Status W/U Status Risk Notes Problem Hypothyroid (18402972) Hypothyroid (E03.9) Active confirmed Problem Acid reflux (861922829) Acid reflux (K21.9) Active confirmed Problem Gastroesophageal reflux disease (983731469) GERD without esophagitis (K21.9) Active confirmed Problem Well adult (904582305) Well adult (Z00.00) Active confirmed Problem Polycystic ovary syndrome (disorder) (342996326) PCOS (polycystic ovarian syndrome) (E28.2) Active confirmed Problem Irritable bowel (84247710) Irritable bowel (K58.9) Active confirmed Vital Signs Blood pressure diastolic 82 mm Hg 07/05/2024 BMI Percentile 97.98 % 07/05/2024 Height 63 in 07/05/2024 Blood pressure systolic 112 mm Hg 07/05/2024 Weight 216.0 lbs 07/05/2024 BMI 38.26 kg/m2 07/05/2024 Encounters Encounter Location Date Provider Diagnosis [address] [address] 04/17/2024 [facility] [address] [place] [address] 05/22/[address] [address] 06/26/[address] [address] 10/10/[address] [address] 11/20/2024 [facility] [address] [place] [address] 04/07/2024 Blair Dai Well adult Z00.00 an d Hypothyroid E03.[address] [address] 07/05/2024 Blair Dai Irritable bowel K58. 9 and GERD without esophagitis K21.[address] [address] 05/22/2024 Blair Dai PCOS (polycystic ovarian syndrome) E28.2 ; Hypothyroid E03.9 ; Well adult Z00.00 and Encounter for long-term (current) use of other medications Z79.[address] [address] 07/04/2024 Blair [facility] [address] [place] [address] 11/13/[address] [address] 11/15/2024 Blair Dai Positive t est Z32.01 Assessments Encounter Date Diagnosis (ICD Code) Assessment Notes Treatment Notes Treatment Clinical Notes Section Notes 04/07/2024 Well adult (ICD-10 - Z00.00) 04/07/2024 Hypothyroid (ICD-10 - E03.9) 07/05/2024 Irritable bowel (ICD-10 - K58.9) 07/05/2024 GERD without esophagitis (ICD-10 - K21.9) 05/22/2024 PCOS (polycystic ovarian syndrome) (ICD-10 - E28.2) 05/22/2024 Hypothyroid (ICD-10 - E03.9) 11/15/2024 Positive test (ICD-10 - Z32.01) 05/22/2024 Well adult (ICD-10 - Z00.00) 05/22/2024 [...] Coverage End Date [employer] [address] [place] [address] [id number] SAMUEL Child - Insured has Financial Responsibility [employer] [address] [place] [address] [id number] Sheyla Lea Self - patient is the insured Medical (General) History Medical History History ICD Code PCOS (polycystic ovarian syndrome) E28.2 Acid reflux K21.9 Surgical History Surgery Date(Month/Year) Tonsillectomy EGD 02/07 diagnostic lap 01/07 Thyroidectomy 09/07
--- OUTSIDE RECORDS SUMMARY | 2024-12-16 10:31 | XMS_ITS | Encounter Summary ---
Author Organization [employer] tem Address [id number] [address] [place] [address] Care Team Providers Care Boilers Inspector Name Role Phone Hector Dai MD Primary Care Provider [phone] Encounter Details Date Type Department Care Team (Late st Contact Info) Description [facility] [address] [place] [address] Angel, Barbara, FERMENTER [place] Social History Tobacco Use Types Packs/Day Years [...] documented as of this encounter Care Teams Boilers Inspector Relationship Specialty Start Date End Date Hector Dai MD [address] [place] [address] PCP - General Family Medicine 10/12/24 documented as of this encounter
--- OUTSIDE RECORDS SUMMARY | 2024-12-16 10:31 | XMS_ITS | Encounter Summary ---
Author Organization [employer] Address [id number] [address] [place] [address] Care Team Providers Care Wire Saw Operator Name Role Phone Hector Dai MD Primary Care Provider [phone] Reason for Visit * Reason Comments Med Refill Encounter Details Date Type Department Care Team (Late st Contact Info) Description 12/13/2023 Refill [facility] Internal Medicine - Family Medicine [address] [facility] [place] [place] [address] Anita Sherwood, COOLER MAN-MACHINIST HELPER [address] [place] [address] Social History Tobacco Use Types Packs/Day Years [...] documented as of this encounter Care Teams Wire Saw Operator Relationship Specialty Start Date End Date Hector Dai MD [address] [place] [address] PCP - General Family Medicine 10/12/24 documented as of this encounter
--- OUTSIDE RECORDS SUMMARY | 2024-12-16 10:31 | XMS_ITS | Encounter Summary ---
Author Organization [facility] Address [address] [place] [address] Care Team Providers Care Head Of Human Resources Name Role Phone Hector Dai MD Primary Care Provider [phone] Encounter Details Date Type Department Care Team (Late st Contact Info) Description 11/24/2023 Abstract [facility] [address] Gerardo Meredith DO [address], [place] [address] Social History Tobacco Use Types Packs/Day Years [...] 01/02/2025 11:10 AM EDT Routine [facility] [address] Gerardo Meredith, DO [address], [place] [phone] documented as of this encounter Visit Diagnoses Not on filedocumented in this encounter Care Teams Head Of Human Resources Relationship Specialty Start Date End Date Hector Dai MD [address] [place] [address] PCP - General Family Medicine 04/07/24 documented as of this encounter
--- OUTSIDE RECORDS SUMMARY | 2024-12-16 10:31 | XMS_ITS | Encounter Summary ---
Author Organization [facility] Address [address] [place] [address] Care Team Providers Care Scuba Diver Name Role Phone Hector Dai MD Primary Care Provider [phone] Encounter Details Date Type Department Care Team (Late st Contact Info) Description 01/14/2024 Abstract [facility] [place] [phone] Gerardo Meredith DO [address], [place] [address] Social History Tobacco Use Types Packs/Day Years [...] 01/02/2025 11:10 AM EDT Routine [facility] [place] [address] Gerardo Meredith, DO [address], [place] [id number] documented as of this encounter Visit Diagnoses Not on filedocumented in this encounter Care Teams Scuba Diver Relationship Specialty Start Date End Date Hector Dai MD [address] [place] [address] PCP - General Family Medicine 04/07/24 documented as of this encounter
--- OUTSIDE RECORDS SUMMARY | 2024-12-16 10:31 | XMS_ITS | Encounter Summary ---
Author Organization [facility] Address [address] [place] [address] Care Team Providers Care Journeyman Electrician Pv Installer Name Role Phone ShireenShayla morgantrish Haddad DO Primary Care Provider [phone] Anita Sherwood NP Primary Care Provider [phone] Source Comments In the event this information is protected by the Federal Confidentiality of Alcohol and Drug AbusePatient Records regulations: The Federal rules restrict any use of the information to criminally investigate or prosecute any alcohol or drug abuse patient.[facility] Encounter Details Date Type Department Care Team (Late st Contact Info) Description 08/12/2023 Patient [facility] [place] [address] Martina Bettencourt RPh At your next appointment, choose [facility] Social History Tobacco Use Types Packs/Day [...] is lower risk 9 01/07/2023 Data from: https://www.neighborhoodatlas.medicine.[facility].edu/. Last address used for calculation [address] [...] on filedocumented in this encounter Care Teams Journeyman Electrician Pv Installer Relationship Specialty Start Date End Date Geeta Goff DO [address] [place] [address] PCP - General Family Medicine 07/09/23 08/16/23 Anita Sherwood NP [address] [place] [address] PCP - General Family Medicine 08/17/23 documented as of this encounter
--- OUTSIDE RECORDS SUMMARY | 2024-12-16 10:32 | XMS_ITS | Encounter Summary ---
Author Organization [facility] Address [address] [place] [address] Care Team Providers Care Phlebotomist Medical Lab Assistant Name Role Phone Anita Sherwood SUMA Primary Care Provider [phone] Source Comments In the event this information is protected by the Federal Confidentiality of Alcohol and Drug AbusePatient Records regulations: The Federal rules restrict any use of the information to criminally investigate or prosecute any alcohol or drug abuse patient.[facility] Encounter Details Date Type Department Care Team (Late st Contact Info) Description 08/31/2023 Patient Msg Endocrinology [address] [place] [address] Yesi Pizano MD Results Social History Tobacco Use Types Packs/Day [...] risk 9 01/07/2023 Data from: https://www.neighborhoodatlas.medicine.[facility].edu/. Last address used for calculation [...] on filedocumented in this encounter Care Teams Phlebotomist Medical Lab Assistant Relationship Specialty Start Date End Date Anita Sherwood NP [address] [place] [address] PCP - General Family Medicine 08/17/23 documented as of this encounter
--- OUTSIDE RECORDS SUMMARY | 2024-12-16 10:32 | XMS_ITS | Clinical Summary ---
Author Organization [employer] tem Address [facility] [address] [place] [address] Care Team Providers Care Marketing Representative Name Role Phone Hector Dai MD Primary Care Provider [phone] Allergies No known active allergies Medications venlafaxine [...] before bedtime. 30 g 10/13/19 25 Active Active Problems Problem Noted Date Diagnosed [...] anxiety disorder 08/25/2023 GERD (gastroesophageal reflux disease) 4 Overview (08/25/2023): Last Assessment & Plan: Currently [...] EDT - 10/12/2024 1:35 PM EDT Emergency [facility] - Emergency [address] [place] [address] Allergic contact dermatitis, unspecified trigger (Primary Dx) [...] file Insurance ANTHEM ANTHEM ANTHEM Care Teams Marketing Representative Relationship Specialty Start Date End Date Hector Dai MD [address] [place] [address] PCP - General Family Medicine 10/12/24
--- OUTSIDE RECORDS SUMMARY | 2024-12-16 10:32 | XMS_ITS | Encounter Summary ---
Author Organization [facility] Address [address] [facility] [place] [address] Care Team Providers Care Cook Helper Vegetable Name Role Phone Hector Dai MD Primary Care Provider [phone] Encounter Details Date Type Department Care Team (Latest Contact Info) Description 12/06/2024 Travel Social History Tobacco Use Types Packs/Day Years [...] AM EDT Routine [facility] [address] [place] [address] Gerardo Meredith DO [address] [facility] [place] [address] documented as of this encounter Visit Diagnoses Not on filedocumented in this encounter Care Teams Cook Helper Vegetable Relationship Specialty Start Date End Date Hector Dai MD [address] [facility] [address] PCP - General Family Medicine 04/07/24 documented as of this encounter
--- OUTSIDE RECORDS SUMMARY | 2024-12-16 10:32 | XMS_ITS | Clinical Summary ---
Author Organization [facility] Address [address] [place] [address] Care Team Providers Care Single Stroke Preformer Name Role Phone Anita Sherwood NP Primary [...] is lower risk 9 05/12/2024 Data from: https://www.neighborhoodatlas.medicine.[facility].edu/. Last address used for calculation [address] 05/12/2024 Comments No Sex and Gender [...] HIV Screening 2022 Hepatitis C Screening 2022 Influenza Vaccine (#1) 2025 , 03/14/2020, 06/23/2005 DTaP,Tdap,Td Vaccine (7 - Td or Tdap) 11/24/2025 11/25/2015, 09/09/2009, 06/20/2007, Additional history exists Hepatitis B Vaccine Completed 06/23/2005, 2004, 2004 HPV Vaccine Completed 12/26/2021, 11/25/2015 Insurance BLUE CARD PPO OOS Member Subscriber Plan / Payer (Ef fective 2017-Present) Name:SACHA LEA I Relation to Subscriber:Child Name:MIRNA SAMUEL Date of :1975 (Home) Address: [address] [place] [address] Payer ID:[id number] (NAIC) Type:PPO Address: [facility] [id number] [place] [id number] BLUE ACCESS PPO BLUE CARD PPO OOS BLUE ACCESS PPO Care Teams Single Stroke Preformer Relationship Specialty Start Date End Date Anita Sherwood NP [address] [place] [address] PCP - General Family Medicine 08/17/23
--- OUTSIDE RECORDS SUMMARY | 2024-12-16 10:32 | XMS_ITS | Encounter Summary ---
Author Organization [facility] Address [facility] [place] [address] Care Team Providers Care Consumer Marketing Analyst Name Role Phone Anita Sherwood SUMA Primary Care Provider [phone] Source Comments In the event this information is protected by the Federal Confidentiality of Alcohol and Drug AbusePatient Records regulations: The Federal rules restrict any use of the information to criminally investigate or prosecute any alcohol or drug abuse patient.[facility] Encounter Details Date Type Department Care Team (Late st Contact Info) Description 09/10/2023 Patient Msg Head and Neck [place] [address] [place] [address] Provider, Rito CHRIS Social History Tobacco Use [...] is lower risk 9 01/07/2023 Data from: https://www.neighborhoodatlas.[facility]/. Last address used for calculation [address] [...] on filedocumented in this encounter Care Teams Consumer Marketing Analyst Relationship Specialty Start Date End Date Anita Sherwood NP [address] [place] [address] PCP - General Family Medicine 08/17/23 documented as of this encounter
--- OUTSIDE RECORDS SUMMARY | 2024-12-16 10:32 | XMS_ITS | Encounter Summary ---
Author Organization [facility] Address [facility] [place] [address] Care Team Providers Care Veneer Patcher Name Role Phone Anita Sherwood SUMA Primary Care Provider [phone] Source Comments In the event this information is protected by the Federal Confidentiality of Alcohol and Drug AbusePatient Records regulations: The Federal rules restrict any use of the information to criminally investigate or prosecute any alcohol or drug abuse patient.[facility] Encounter Details Date Type Department Care Team (Late st Contact Info) Description 09/10/2023 Patient Msg Head and Neck [place] [address] [place] [address] Provider, Rito CHRIS Social History Tobacco Use [...] is lower risk 9 01/07/2023 Data from: https://www.neighborhoodatlas.[facility]/. Last address used for calculation [address] [...] on filedocumented in this encounter Care Teams Veneer Patcher Relationship Specialty Start Date End Date Anita Sherwood NP [address] [place] [address] PCP - General Family Medicine 08/17/23 documented as of this encounter
--- OUTSIDE RECORDS SUMMARY | 2024-12-16 10:32 | XMS_ITS | Encounter Summary ---
Author Organization [facility] Address [address] [place] [address] Care Team Providers Care Body Straightener Name Role Phone Anita Sherwood SUMA Primary Care Provider Source Comments In the event this information is protected by the Federal Confidentiality of Alcohol and Drug AbusePatient Records regulations: The Federal rules restrict any use of the information to criminally investigate or prosecute any alcohol or drug abuse patient.[facility] Encounter Details Date Type Department Care Team (Late st Contact Info) Description 09/01/2023 Patient Msg Endocrinology [address] [place] [address] Yesi Pizano MD Testosterone Social History Tobacco Use Types Packs/Day [...] is lower risk 9 01/07/2023 Data from: https://www.neighborhoodatlas.medicine.[facility].edu/. Last address used for calculation [address] [...] on filedocumented in this encounter Care Teams Body Straightener Relationship Specialty Start Date End Date Anita Sherwood NP [address] [place] [address] PCP - General Family Medicine 08/17/23 documented as of this encounter
--- OUTSIDE RECORDS SUMMARY | 2024-12-16 10:32 | XMS_ITS | Encounter Summary ---
Author Organization [facility] [employer] Address [id number] [place] [address] Care Team Providers Care Video Producer Name Role Phone Hector Dai MD Primary Care Provider [phone] Encounter Details Date Type Department Care Team (Late st Contact Info) Description 03/03/2024 Orders Only [facility] Internal Medicine - Family Medicine [address] [place] [id number] Anita Sherwood, TREASURER-MEAL ROOM HAND [address] [place] [address] Social History Tobacco Use Types Packs/Day Years [...] documented as of this encounter Care Teams Video Producer Relationship Specialty Start Date End Date Hector Dai MD [address] [place] [address] PCP - General Family Medicine 10/12/24 documented as of this encounter
--- OUTSIDE RECORDS SUMMARY | 2024-12-16 10:32 | XMS_ITS | Clinical Summary ---
Author Organization [facility] Address [address] [place] [address] Care Team Providers Care Cnc Mechanic Name Role Phone Hector Dai MD Primary Care Provider [phone] Allergies No known active allergies Medications pantoprazole (ProtoNix) 40 MG EC tablet Take 40 mg by mouth in the morning. Take before meals. Do not crush, chew, or split.. Active buPROPion SR (Wellbutrin SR) 150 MG 12 hr tabletIndications :Mood disorder,Anxious mood Take 1 tablet (150 mg) by mouth Daily Take 1 tablet daily 180 tablet 1 03/08/20 24 025 Active levothyroxine (Synthroid, Levoxyl) 175 MCG tabletIndications :Postoperative hypothyroidism Take 1 tablet (175 mcg) by mouth in the morning. Take before meals. 90 tablet 1 05/09/20 24 Active levothyroxine (Synthroid) 50 MCG tabletIndications :H/O thyroidectomy Take 1 tablet (50 mcg) by mouth in the morning. Take before meals. 30 tablet 11/15/19 25 026 Active promethazine (Phenergan) 12.5 MG tabletIndications :Nausea Take 1 tablet (12.5 mg) by mouth every 4 (four) hours 180 tablet 11/25/19 25 025 Active busPIRone (Buspar) 5 MG tablet Take by mouth in the morning and before bedtime. Unsure of dose . Active liothyronine (Cytomel) 5 MCG tabletIndications :Postoperative hypothyroidism TAKE 1 TABLET BY MOUTH DAILY. 90 tablet 1 12/15/19 25 Active ondansetron ODT (Zofran-ODT) 4 MG disintegrating tablet Take 4 mg by mouth every 12 (twelve) hours if needed for nausea 025 Discontinued minocycline 50 MG capsuleIndication s:Acne, unspecified acne type TAKE 1 CAPSULE BY MOUTH IN THE MORNING and ONE CAPSULE BY MOUTH BEFORE bedtime 60 capsule 3 12/13/19 24 025 Discontinued(Ot her) venlafaxine XR (Effexor XR) 37.5 MG 24 hr capsuleIndication s:Anxiety, generalized TAKE 1 CAPSULE BY MOUTH DAILY DO NOT CRUSH OR CHEW. 90 capsule 2 02/17/20 24 025 Discontinued(Ot her) metFORMIN (Glucophage) 500 MG tabletIndications :Hormone imbalance,Irregul ar periods,Weight gain Take 2 tablets (1,000 mg) by mouth in the morning. Take with meals. 60 tablet 11 03/07/20 24 025 Discontinued(Ot her) phentermine (Adipex-P) 37.5 MG tabletIndications :Encounter for weight management Take 1 tablet (37.5 mg) by mouth in the morning. Take before meals. 30 tablet 04/10/20 24 025 Discontinued(Ot her) liothyronine (Cytomel) 5 MCG tabletIndications :Postoperative hypothyroidism Take 1 tablet (5 mcg) by mouth Daily 90 tablet 1 05/09/20 24 025 Discontinued(Ot her) Encounters Date Type Department Care Team Description 12/14/2024 Refill [facility] [address] [place] [address] Loretta Winkler MD Postoperative hypothyroidism 12/07/2024 2:30 PM EDT Initial [facility] [address] [place] [address] [place]: 7w5d 12/06/2024 Travel 11/30/2024 2:30 PM EDT Ancillary Procedure [facility] [address] [place] [address] with abdominal cramping of lower quadrant, antepartum ([facility]) 11/24/2024 Telephone [facility] [address] [place] [phone] Karolyn Fulton MA 11/24/2024 Travel 11/22/2024 1:30 PM EDT Office Visit [facility] [address] [place] [address] Nichelle Sanchez PA Nausea (Primary Dx); Cramping affecting , antepartum ([facility]); Missed menses; with abdominal cramping of lower quadrant, antepartum ([facility]) 11/22/2024 Bamboo flowsheet [facility] [address] [place] [address] Nichelle Sanchez PA 11/18/2024 Clinisync Result Encounter [facility] External Department Unsolicited Gerardo Meredith, 11/16/2024 Travel 11/15/2024 Telephone [facility] [address] [place] [address] Gerardo Meredith, 11/14/2024 Telephone [facility] [address] [place] [address] Gerardo Meredith, 11/13/2024 Clinisync Result Encounter [facility] Unsolicited Gerardo Meredith, 11/13/2024 Telephone [facility] [address] [place] [address] Gerardo Meredith DO from Last 3 Months Family History Medical History Relation Name Comments Seizure disorder Brother 1 Breast cancer Maternal Grandmother indra whiting Thyroid disease Maternal Grandmother indra whiting Breast cancer Paternal Grandmother Alesha Hofacker Relation Name Status Comments Brother 1 Alive Brother 2 Alive Brother 3 Alive Brother 4 Alive Brother 5 Alive Brother 6 Alive Father Alive Maternal Grandmother indra whiting Mother Alive Paternal Grandmother Alesha Hofacker Sister 1 Alive Sister 2 Alive Sister [...] Sign Reading Time Taken Comments Blood Pressure 128/80 11/22/2024 1:45 PM EDT Pulse 84 05/09/2024 9:23 AM EST Temperature - - Respiratory Rate 18 05/09/2024 9:23 AM EST Oxygen Saturation - - Inhaled Oxygen Concentration - - Weight 106 kg (232 lb 12.8 oz) 12/07/2024 3:22 P M EDT Height 160 cm (5' 3 ) 05/09/2024 9:23 AM EST Body Mass Index 41.24 05/09/2024 9:23 AM EST Plan of Treatment Upcoming Encounters Date Type Department Care Team (Late st Contact Info) Description 01/02/2025 11:10 AM EDT Routine [facility] [address] [place] [address] Gerardo Meredith, [address] [facility] [place], [place] [id number] Health Maintenance Due Date Last Done Comments Influenza Vaccine (#1) 2025 4, 02/22/2023, 03/14/2020, Additional history exists Goals Goal Patient Goal Type Associated Problems Recent Progress Patient-Stated? Author Reminders Care Plan OB Reminders No Open Scheduling, Background Procedures Procedure Name Priority Date/Time Associated Diagnosis Comments POCT URINALYSIS DIPSTICK Routine 12/07/2024 3:26 PM EDT Missed menses POCT , URINE Routine 12/07/2024 3:26 PM EDT Missed menses US OB TRANSVAGINAL Routine 11/30/2024 3: 17 PM EDT with abdominal cramping of lower quadrant, antepartum ([facility]) POCT URINALYSIS DIPSTICK Routine 11/22/2024 1:52 PM EDT Cramping affecting , antepartum ([facility]) POCT , URINE Routine 11/22/2024 1:52 PM EDT Cramping affecting , antepartum ([facility]) [facility] PREG QUANT HCG Routine 11/18/2024 10 :28 AM EDT [facility] PREG QUANT HCG Routine 11/13/2024 4: 33 PM EDT ALL THYROID STIM HORMONE Routine 11/13/2024 4:33 PM EDT from Last 3 Months Results * (ABNORMAL) POCT , urine manually resulted (12/07/2024 3:26 PM EDT) Only the most recent of2 resultswithin the time period is included. Preg Test, Ur Positive Negative Urine 12/07/2024 3:26 PM EDT Gerardo Meredith DO POINT OF CARE TEST ENTER/EDIT OR DERABLES Final Result * POCT urinalysis dipstick manually resulted (12/07/2024 3:26 PM EDT) Only the most recent of2 resultswithin the time period is included. Color, UA Yellow Clarity, UA Clear Glucose, UA Negative Negative - 2000(110) ++++ mg/dL Bilirubin, UA Negative Negative - 4(70) +++ mg/dL Ketones, UA Negative Negative - 160(16) ++++ mg/dL Spec Grav, UA 1.025 1 - 1.03 Blood, UA Negative Negative - 50 Joshua/mcL pH, UA 6.5 5 - 9 Protein, UA Negative Negative - 1999(20) ++++ mg/dL Urobilinogen, UA 1.0 0.2 - 12 mg/dL Leukocytes, UA Negative Negative - 500+++ Diego/mcL Nitrite, UA Negative Negative - Positive Urine 12/07/2024 3:26 PM EDT us Gerardo Viri DO POINT OF CARE TEST ENTER/EDIT OR DERABLES Final Result * US OB transvaginal (11/30/2024 3:17 PM EDT) Anatomical Region Laterality Modality Body Ultrasound 12/05/2024 9:47 AM EDT Impressions 12/05/2024 10:03 AM EDT Findings consistent with a live intrauterine gestation, current sonographic age of 6 weeks and 5 days resulting in an estimated date of delivery of July 21, 2025. TRANSCRIBED BY: ELECTRONICALLY SIGNED BY: Nathen Brown MD Narrative 12/05/2024 10:03 AM EDT FINDINGS: A single intrauterine gestational sac is present. No subchorionic hemorrhage. A single pole is present. Normal heart rate at 144 beats per minute. Yolk sac also is seen. Current sonographic age is 6 weeks and 5 days based on the crown-rump length measurement of 8 mm Based on this age, current estimated date of delivery is July 21, 2025. No pelvic fluid or adnexal mass present. Cervical length is 3.8cm. Procedure Note Nathen Brown MD - 12/05/2024 FINDINGS: A single intrauterine gestational sac is present. No subchorionichemorrhage. A single pole is present. Normal heart rate at144 beats per minute. Yolk sac also is seen. Current sonographic age is6 weeks and 5 days based on the crown-rump length measurement of 8 mmBased on this age, current estimated date of delivery is July 21, 2025.No pelvic fluid or adnexal mass present. Cervical length is 3.8cm. IMPRESSION: Findings consistent with a live intrauterine gestation, currentsonographic age of 6 weeks and 5 days resulting in an estimated date ofdelivery of July 21, 2025. TRANSCRIBED BY: ELECTRONICALLY SIGNED BY: Nathen Brown MD us Marcia Naranjo FILM TOUCH UP INSPECTOR IMG OB US PROCEDURES Final Re sult * [facility] PREG QUANT HCG (11/18/2024 10:28 AM EDT) Only the most recent of2 resultswithin the time period is included. HCG QUANTITATIVE 4,630 mIU/mL [facility] Comment: 5-50 0.2-1 WEEK 50-500 1-2 WEEKS 100-5,000 2-3 WEEKS 500-10,000 3-4 WEEKS 1,000-50,000 4-5 WEEKS 10,000-100,000 5-6 WEEKS 15,000-200,000 6-8 WEEKS 10,000-100,000 2-3 MONTHS 11/18/2024 10:2 8 AM EDT 11/18/2024 10:28 AM EDT Narrative [facility] - 11/18/2024 11:15 AM EDT us Gerardo Viri DO CLINIS[facility] Final Result [facility] * (ABNORMAL) ALL THYROID STIM HORMONE (11/13/2024 4:33 PM EDT) THYROID STIMULATING HORMONE 12.103(H) 0.358 - 3.740 uIU/mL [facility] 11/13/2024 4:33 PM EDT 11/13/2024 4:33 PM EDT Narrative [facility] - 11/13/2024 5:55 PM EDT Gerardo Viri DO CL[facility] Final Result CLIN[facility]NC [facility] from Last 3 Months Additional Health Concerns Active Problems Noted Date Diagnosed Date OB Reminders 12/11/2024 Insurance [place]ICAID [place] Care Teams Cnc Mechanic Relationship Specialty Start Date End Date Hector Dai MD [address] [place] [address] PCP - General Family Medicine 04/07/24
--- OUTSIDE RECORDS SUMMARY | 2024-12-16 10:32 | XMS_ITS | Encounter Summary ---
Author Organization [employer] Address [facility] [id number] [address] [place] [address] Care Team Providers Care Communications Programmer Name Role Phone Hector Dai MD Primary Care Provider [phone] Encounter Details Date Type Department Care Team (Late st Contact Info) Description [facility] [address] [place] [address] Angel, Barbara, MIGRATORY WORKER Social History Tobacco Use Types Packs/Day Years [...] know if you can send orders to [facility] or can we draw her thyroid here [...] documented as of this encounter Care Teams Communications Programmer Relationship Specialty Start Date End Date Hector Dai MD [address] [place] [address] PCP - General Family Medicine 10/12/24 documented as of this encounter
--- OUTSIDE RECORDS SUMMARY | 2024-12-16 10:32 | XMS_ITS | Encounter Summary ---
Author Organization [employer] Address [facility] [id number] [address] [place] [address] Care Team Providers Care Stadium Attendant Name Role Phone Hector Dai MD Primary Care Provider [phone] Encounter Details Date Type Department Care Team (Late st Contact Info) Description 02/21[facility] [address] [place] [address] Asad Sam CMA Social History [...] documented as of this encounter Care Teams Stadium Attendant Relationship Specialty Start Date End Date Hector Dai MD [address] [place] [address] PCP - General Family Medicine 10/12/24 documented as of this encounter
--- OUTSIDE RECORDS SUMMARY | 2024-12-16 10:32 | XMS_ITS | Encounter Summary ---
Author Organization [facility] Address [address] [place] [address] Care Team Providers Care Senior Electrical Engineer Name Role Phone Hector Dai MD Primary Care Provider [phone] Reason for Visit * Reason Comments Med Refill Encounter Details Date Type Department Care Team (Late st Contact Info) Description 12/14/2024 Refill [facility] [address] [place] [address] Loretta Winkler MD [address] [place] [address] Postoperative hypothyroidism Social History Tobacco Use Types [...] encounter Miscellaneous Notes * Telephone Encounter - Karrie Brandon LPN - 12/14/2024 8:24 AM EDT MEDICATION SENT TO PHARMACY. documented in this encounter Plan of Treatment Upcoming Encounters Date Type Department Care Team (Late st Contact Info) Description 01/02/2025 11:10 AM EDT Routine [facility] [address] [place] [address] Gerardo Meredith DO [address] [facility] [place] [address] documented as of this encounter Goals Goal Patient Goal Type Associated Problems Recent Progress Patient-Stated? Author Reminders Care Plan OB Reminders No Open Scheduling, Background documented as of this encounter Visit Diagnoses Diagnosis Postoperative hypothyroidism Postsurgical hypothyroidism documented in this encounter Additional Health Concerns Active Problems Noted Date Diagnosed Date OB Reminders 12/11/2024 documented as of this encounter Care Teams Senior Electrical Engineer Relationship Specialty Start Date End Date Hector Dai MD [address] [facility] [place] [place] [address] PCP - General Family Medicine 04/07/24 documented as of this encounter
--- OUTSIDE RECORDS SUMMARY | 2024-12-16 10:32 | XMS_ITS | Encounter Summary ---
Author Organization [employer] Address [id number] [address] [place] [address] Care Team Providers Care Weather Strip Mechanic Name Role Phone Hector Dai MD Primary Care Provider [phone] Encounter Details Date Type Department Care Team (Late st Contact Info) Description 02/04/[facility] [address] [place] [address] Susy Lee CMA Social History [...] documented as of this encounter Care Teams Weather Strip Mechanic Relationship Specialty Start Date End Date Hector Dai MD [address] [place] [address] PCP - General Family Medicine 10/12/24 documented as of this encounter
--- OUTSIDE RECORDS SUMMARY | 2024-12-16 10:33 | XMS_ITS | CCD ---
Author Organization [facility] Care Team Providers Care Moisture Machine Tender Name Role Phone Damian Jas Hewitt Primary Care Provider MANA AGUILAR Referring Unavailable JAS SALGADO Primary Care Unavailable MANA AGUILAR Referring Unavailable DAMIAN JAS Hewitt Primary Care Unavailable Aime Goff Unavailable Gerald Barboza Unavailable Angelique PACPower Attending Unavailable KEVIN STOKES Primary Care Unavailable Power Ny Admitting Unavailable ELIJAH Rodriguez Admitting Unavailable ELIJAH Rodriguez Attending Unavailable KEVIN STOKES Primary Care Unavailable Aime Goff E Primary Care Unavailable ELIJAH Rodriguez Admitting Unavailable ELIJAH Rodriguez Attending Unavailable KATHLEEN LUNDBERG Admitting Unavailable DIVYA, KEVIN A Primary Care Unavailable KATHLEEN LUNDBERG Attending Unavailable Africa Del Cid Admitting Unavailable Africa Del Cid Attending Unavailable KEVIN STOEKS A Primary Care Unavailable KATHLEEN LUNDBERG Admitting Unavailable KATHLEEN LUNDBERG Attending Unavailable KEVIN STOKES A Primary Care Unavailable KEVIN STOKES A Primary Care Unavailable Spasic PA, Levy Admitting Unavailabl e Spasic PA, Levy Attending Unavailabl e KEVIN STOKES A Primary Care Unavailable Spasic PA, Levy Admitting Unavailabl e Spasic PA, Levy Attending Unavailabl e DO Kevin Stokes Primary Care Provider [phone] DO Braxton Toussaint Attending Provider [phone] Schwerer DO, Aime E Primary Care Provider Catarina BILINGUAL CASE MANAGER, [facility] Primary Care Provider [phone] Catarina BILINGUAL CASE MANAGER, [facility] Primary Care Provider CATARINA, ANITA Primary Care [...] Care Unavailable PRENDES, LATASHA L Admitting Unavailable Viri, Gerardo Admitting Unavailable Viri, Gerardo Attending Unavailable Catarina, Anita Primary Care Unavailable Ly Brooke L Admitting Unavailable Ly, Brooke L Attending Unavailable Unavailable Primary Care Provider Unavailabl e CATARINA, ANITA L Attending Unavailable KEVIN STOKES Referring Unavailable CATARINA, ANITA L Primary Care Unavailable LIMA TOUSSAINT Attending Unavailable CATARINA, ANITA L Referring Unavailable CATARINA, ANITA L Primary Care Unavailable CATARINA, ANITA L Attending Unavailable CATARINA, ANITA L Referring Unavailable CATARINA, ANITA L Primary Care Unavailable ALPHONSO GARCIA Attending Unavailable CATARINA, ANITA L Referring Unavailable [...] Unavailable CATARINA, ANITA L Primary Care Unavailable Regino Santoro MD Primary Care Provider [phone] Catarina CANDY DECORATOR-ORGANISATION AND METHODS ANALYST, Anita L Primary Care Provider NIKI HOLLIS Admitting Unavailable NIKI HOLLIS Attending Unavailable ANITA ELMORE Primary Care Unavailable NIKI HOLLIS Attending Unavailable NIKI HOLLIS Referring Unavailable ANITA ELMORE Primary Care Unavailable REGINO SANTORO Primary Care Unavailable Regino Santoro MD Primary Care Provider [phone] Regino Santoro MD Primary Care Provider [phone] NICHELLE SANCHEZ Attending Unavailable GERARDO MEREDITH Attending Unavailable GERARDO MEREDITH Attending Unavailable NICHELLE SANCHEZ Attending Unavailable GERARDO MEREDITH Attending Unavailable GERARDO MEREDITH Attending Unavailable LORETTA WINKLER Attending Unavailable REGINO SANTORO Referring Unavailable Allergies Allergy Classification Reported Allergen(s) Allergy Type Date of Onset Reaction(s) Facility (1 source) No Known Medication Allergies; Translations: [No Known Medication Allergies] Propensity to adverse reactions to drug (disorder) [facility] Repository Medications Current Medications Medication Drug Class(es) [...] 4 weeks then 0.5mg weekly Jan, Active amoxicillin 875 mg / clavulanate 125 mg oral tablet (1 source) Penicillin-class Antibacterial Start: 09-28-2023 End: 10-05-2023 take 1 tablet by mouth once in the morning amoxicillin-pot clavulanate (AUGMENTIN) 875-125 mg per tablet Indications: Acute non-recurrent frontal sinusitis Take 1 tablet by mouth in the morning and 1 tablet before bedtime. Do all this for 7 days. 14 tablet 09/28/2023 10/05/2023 Active benzoyl peroxide 0.05 mg/mg / clindamycin 0.01 mg/mg topical gel (20 sources) Lincosamide Antibacterial Start: 12-29-2023 End: 02-18-2024 clindamycin-benzoy l peroxide (BENZACLIN) gel APPLY TO AFFECTED AREA TOPICALLY IN THE MORNING AND AT BEDTIME 25 g 1 02/18/2024 Active Start: 08-25-2023 End: 12-27-2023 clindamycin-benzoyl peroxide (BENZACLIN) gel Apply 1 Application topically in the morning and 1 Application before bedtime. 25 g 1 11/25/2023 12/27/2023 Discontinued (Reorder) 12 hr buPROPion hydrochloride 150 mg extended release oral tablet (19 sources) Aminoketone Start: 03-08-2024 End: 03-08-2025 take 1 tablet by mouth once daily, then take 1 tablet by mouth once daily buPROPion SR (Wellbutrin SR) 150 MG 12 hr tablet Indications: Mood disorder , Anxious mood Take 1 tablet (150 mg) by mouth Daily Take 1 tablet daily 180 tablet 1 03/08/2024 03/08/2025 Active Start: 03-08-2024 take 1 tablet by hieu th every twelve hours in the morning buPROPion SR (WELLBUTRIN SR) 150 mg 12 hr tablet Take 1 tablet (150 mg total) by mouth in the morning. 03/08/2024 Active busPIRone hydrochloride 5 mg oral tablet (1 source) take 1 tablet by mouth at bedtime busPIRone (Buspar) 5 MG tablet Take by mouth in the morning and before bedtime. Unsure of dose . Active cephalexin 500 mg oral capsule (1 source) Cephalosporin Antibacterial Start: 01-31-20 take 1 capsule by mouth every twelve hours Cephalexin 500 MG 1 capsule Orally every 12 hrs for 10 days Jan, Active clindamycin 20 mg/ml vaginal cream (1 source) Lincosamide Antibacterial Start: 03-13-20 End: 03-16-20 clindamycin (CLEOCIN) 2 % vaginal cream Insert 1 applicator into the vagina nightly for 3 days. 40 g 03/13/2024 03/16/2024 Active ethinyl estradiol 0.035 mg / norgestimate 0.25 mg oral tablet (20 sources) Progestin, Estrogen Start: 11-24-19 End: 01-25-20 take 1 tablet by mouth once daily norgestimate-ethinyl estradiol (Sprintec 28) 0.25-35 MG-MCG tablet Indications: Encounter for repeat prescription of oral contraceptives Take 1 tablet by mouth Daily 28 tablet 12 01/25/2024 01/24/2025 Active Start: 11-24-2023 End: 02-18-2024 take 1 tablet by mouth once in the morning norgestimate-ethinyl estradioL (ORTHO TRI-CYCLEN,TRINESSA) 0.18/0.215/0.25 mg-35 mcg (28) per tablet Take 1 tablet by mouth in the morning. 11/24/2023 02/18/2024 Discontinued (Therapy completed) Start: 11-24-2023 End: 01-24-2025 take 1 tablet by mouth once in the morning norgestimate-ethinyl estradioL (ORTHO TRI-CYCLEN,TRINESSA) 0.18/0.215/0.25 mg-35 mcg (28) per tablet Take 1 tablet by mouth in the morning. 11/24/2023 01/24/2025 Active Start: 06-02-2018 End: 08-25-2023 Norgestimate-Ethinyl Estradi ol 0.18/0.215/0.25 mg-35 mcg (28) tab Start: 06-02-2018 Norgestimate-E thinyl Estradiol 0.18/0.215/0.25 mg-35 mcg (28) tab levothyroxine sodium 0.05 mg oral tablet (20 sources) l-Thyroxine Start: 11-14-2024 End: 11-14-2025 take 1 tablet by mouth once before mealtime levothyroxine (Synthroid) 50 MCG tablet Indications: H/O thyroidectomy Take 1 tablet (50 mcg) by mouth in the morning. Take before meals. 30 tablet 11 11/14/2024 11/14/2025 Active Start: 05-09-2024 take 1 tablet by hieu th before mealtime levothyroxine (Synthroid, Levoxyl) 175 MCG tablet Indications: Postoperative hypothyroidism Take 1 tablet (175 mcg) by mouth in the morning. Take before meals. 90 tablet 1 05/09/2024 Active Start: 05-01-2024 take 1 tablet by hieu th in the morning levothyroxine (SYNTHROID, LEVOTHROID) 175 MCG tablet TAKE 1 TABLET BY MOUTH IN THE MORNING 90 tablet 1 05/01/2024 Active Start: 04-03-2024 End: 05-01-2024 take 1 tablet by mouth before mealtime levothyroxine (Synthroid, Levoxyl) 175 MCG tablet Take 175 mcg by mouth in the morning. Take before meals. 04/03/2024 Active Start: 02-21-2024 End: 04-03-2024 take 1 tablet by mouth in the morning levothyroxine (SYNTHROID, LEVOTHROID) 150 MCG tablet TAKE 1 TABLET (150 MCG) BY MOUTH IN THE MORNING 30 tablet 03/20/2024 04/03/2024 Discontinued (Therapy completed) Start: 10-29-2023 End: 02-21-2024 take 1 tablet by mouth in the morning levothyroxine (SYNTHROID) 200 MCG tablet Take 1 tablet (200 mcg total) by mouth in the morning. 90 tablet 1 12/07/2023 Active Start: 10-04-2023 End: 04-10-2024 levothyroxine (Synthroid, Le voxyl) 150 MCG tablet Take 200 mcg by mouth in the morning. Take before meals. 10/04/2023 04/10/2024 Discontinued Start: 09-04-2023 End: 11-03-2023 levothyroxine (SYNTHROID, LEVOTHROID) 150 MCG tablet Take 1 tablet (150 mcg total) by mouth. 09/04/2023 10/29/2023 Discontinued (Therapy completed) naproxen 500 mg oral tablet (1 source) Nonsteroidal Anti-inflammatory Drug Start: 12-08-2017 take 1 tablet by mouth twice daily Naproxen (Naprosyn) 500 mg tablet Active 500 MG PO Twice daily December 08, 2017 12:00am ondansetron 4 mg disintegrating oral tablet (20 sources) Serotonin-3 Receptor Antagonist Start: 12-29-2023 End: 02-18-2024 ondansetron ODT (ZOFRAN ODT) 4 mg disintegrating tablet DISSOLVE 1 TABLET (4 MG TOTAL) ON TONGUE EVERY 8 HOURS NEEDED FOR NAUSEA AND VOMITING 20 tablet 1 02/18/2024 Active Start: 08-25-2023 End: 12-27-2023 take 1 tablet by mouth every eight hours as needed for nausea and vomiting ondansetron ODT (ZOFRAN ODT) 4 mg disintegrating tablet Dissolve 1 tablet (4 mg total) on tongue every 8 (eight) hours as needed for nausea or vomiting. 20 tablet 1 11/25/2023 12/27/2023 Discontinued (Reorder) Start: 04-02-2023 take 1 tablet by hieu th three times daily as needed for nausea [...] tablet Discontinued 4 MG PO Q8H 15 5 December 08, 2017 12:00am December 13, 2017 12:01am End: 11-22-2024 ondansetron ODT (Zofran-ODT) 4 MG disintegrating tablet Take 4 mg by mouth every 12 (twelve) hours if needed for nausea 11/22/2024 Discontinued Comment on above: Take 4 mg by mouth e very 8 hours as needed for nausea/vomiting. pantoprazole 20 mg delayed release oral tablet (20 sources) Proton Pump Inhibitor Start: 02-03-20 End: 03-02-20 24 take 1 tablet by mouth in the morning pantoprazole (PROTONIX) 20 mg EC tablet TAKE 1 TABLET (20 MG TOTAL) BY MOUTH IN THE MORNING 90 tablet 1 03/02/2024 Active take 1 tablet by mouth before me altime pantoprazole (ProtoNix) 40 MG EC tablet Take 40 mg by mouth in the morning. Take before meals. Do not crush, chew, or split.. Active predniSONE 20 mg oral tablet (1 source) Start: 09-28-2023 End: 10-05-2023 take 1 tablet by mouth in the morning predniSONE (DELTASONE) 20 mg tablet Indications: Acute non-recurrent frontal sinusitis Take 1 tablet (20 mg total) by mouth in the morning for 7 days. 7 tablet 09/28/2023 10/05/2023 Active promethazine hydrochloride 12.5 mg oral tablet (1 source) Phenothiazine Start: 11-24-2024 End: 02-22-2025 take 1 tablet by mouth every four hours for nausea and nausea promethazine (Phenergan) 12.5 MG tablet Indications: Nausea Take 1 tablet (12.5 mg) by mouth every 4 (four) hours 180 tablet 1 11/24/2024 02/22/2025 Active sertraline 100 mg oral tablet (20 sources) Serotonin Reuptake Inhibitor Start: 08-25-2023 End: 03-07-2024 take 1 tablet by mouth in the morning sertraline (ZOLOFT) 100 mg tablet Take 1 tablet (100 mg total) by mouth in the morning. 90 tablet 1 11/25/2023 Active Start: 04-02-2023 End: 08-25-2023 take 1 tablet by mouth every twenty-four [...] Drug Class(es) Dates Sig (Normalized) Sig (Original) betamethasone 0.5 mg/ml / clotrimazole 10 mg/ml topical cream (3 sources) Azole Antifungal, Corticosteroid Start: 10-28-2023 End: 11-23-2023 clotrimazole-betame thasone (LOTRISONE) cream Apply 1 Application topically in the morning and 1 Application before bedtime. Apply to affected area 2 times daily. 45 g 1 10/28/2023 11/23/2023 Discontinued (Therapy completed) cyclobenzaprine (1 source) Muscle Relaxant End: 08-25-2023 take 25 mg by mouth once daily as needed for sleep cyclobenzaprine HCl (FLEXERIL ORAL) Take 25 mg by mouth nightly as needed (sleep). 08/25/2023 Discontinued (Contact Move - Error) fluconazole 150 mg oral tablet (1 source) Azole Antifungal Start: 09-28-2023 End: 09-28-2023 take 1 tablet by mouth once fluconazole (DIFLUCAN) 150 mg tablet Indications: Yeast vaginitis Take 1 tablet (150 mg total) by mouth once for 1 dose. 1 tablet 09/28/2023 09/28/2023 hydrocortisone acetate 10 mg/ml / pramoxine hydrochloride 10 mg/ml rectal foam (7 sources) Corticosteroid Start: 02-18-2024 End: 03-31-2024 hydrocortisone-pram oxine (PROCTOFOAM-HS) rectal foam Insert 1 applicator into the rectum in the morning and 1 applicator before bedtime. 10 g 02/18/2024 03/31/2024 Discontinued (Patient Stopped On Own) hydrOXYzine hydrochloride 10 mg oral tablet (20 sources) Antihistamine Start: 08-25-2023 End: 03-07-2024 take 1 tablet by mouth once daily as needed hydrOXYzine (ATARAX) 10 mg tablet TAKE 1 TABLET BY MOUTH NIGHTLY NEEDED FOR ITCHING. 30 tablet 01/28/2024 02/04/2024 Discontinued (Stop Taking at Discharge) Start: 02-05-2023 take 1 capsule by [facility] every twenty-four hours Vistaril 25 MG 1 capsule at bedtime as needed Orally Once a day Jan, Active Comment on above: Take 25 mg by mouth once daily. levothyroxine (SYNTHROID, LEVOTHROID) 25 mcg/mL suspension (3 sources) Start: End: take 8 mL by mouth in the morning levothyroxine (SYNTHROID, LEVOTHROID) 25 mcg/mL suspension Take 8 mL (200 mcg total) by mouth in the morning for 30 days. 240 mL 02/04/2024 02/18/2024 Discontinued (Therapy completed) Start: 02-04-2024 End: 03-05-2024 take 8 mL by mouth in the morning levothyroxine (SYNTHROID, LEVOTHROID) 25 mcg/mL suspension Take 8 mL (200 mcg total) by mouth in the morning for 30 days. 240 mL 02/04/2024 03/05/2024 Active liothyronine sodium 0.005 mg oral tablet (6 sources) l-Triiodothyronine Start: 05-09-2024 End: 12-07-2024 take 1 tablet by mouth once daily liothyronine (Cytomel) 5 MCG tablet Indications: Postoperative hypothyroidism Take 1 tablet (5 mcg) by mouth Daily 90 tablet 1 05/09/2024 12/07/2024 Discontinued (Other) medroxyPROGESTERone acetate 10 mg oral tablet (13 sources) Progestin Start: 10-27-2023 End: 10-26-2024 take 1 tablet by mouth in the morning medroxyPROGESTERone (PROVERA) 10 mg tablet Take 1 tablet (10 mg total) by mouth in the morning. 10/27/2023 02/03/2024 Discontinued (Therapy completed) metFORMIN hydrochloride 500 mg oral tablet (20 sources) Biguanide Start: 03-07-2024 End: 03-07-2025 take 2 tablets by mouth at mealtime metFORMIN (Glucophage) 500 MG tablet Indications: Hormone imbalance , Irregular periods , Weight gain Take 2 tablets (1,000 mg) by mouth in the morning. Take with meals. 60 tablet 11 03/07/2024 12/07/2024 Discontinued (Other) Start: 10-27-2023 End: 12-26-2024 take 1 tablet by mouth at mealtime metFORMIN (Glucophage) 500 MG tablet Indications: Hormone imbalance , Irregular periods , Weight gain Take 1 tablet (500 mg) by mouth in the morning. Take with meals. 30 tablet 11 12/27/2023 03/07/2024 Discontinued minocycline 50 mg oral capsule (20 sources) Tetracycline-class Drug Start: 12-13-2023 End: 12-07-2024 take 1 capsule by mouth in the morning minocycline 50 MG capsule Indications: Acne, unspecified acne type TAKE 1 CAPSULE BY MOUTH IN THE MORNING and ONE CAPSULE BY MOUTH BEFORE bedtime 60 capsule 3 12/13/2023 12/07/2024 Discontinued (Other) Start: 10-27-2023 End: 12-26-2023 take 1 tablet by mouth in the morning, then take 1 tablet by mouth at bedtime minocycline (DYNACIN) 50 MG tablet Take 1 tablet (50 mg total) by mouth in the morning and 1 tablet (50 mg total) before bedtime. 10/27/2023 12/26/2023 Active mupirocin 0.02 mg/mg topical ointment (1 source) RNA Synthetase Inhibitor Antibacterial Start: 07-12-2017 End: 08-25-2023 mupirocin (BACTROBAN) 2 % ointment Indications: Epistaxis Apply intranasally bilat BID 15 g 07/12/2017 08/25/2023 Discontinued (Therapy completed) nitrofurantoin, macrocrystals 25 mg / nitrofurantoin, monohydrate 75 mg oral capsule (1 source) Nitrofuran Antibacterial Start: 09-09-2023 End: 09-14-2023 take 1 capsule by mouth twice daily nitrofurantoin monohydrate and macrocrystal (MACROBID) 100 mg capsule Take 1 capsule by mouth two times a day for 5 days. 10 capsule 0 09/09/2023 09/14/2023 nystatin [id number] unt/ml oral suspension (1 source) Polyene Antifungal Start: 07-12-2017 End: 08-25-2023 take 5 mL by mouth four times daily nystatin (MYCOSTATIN) 100,000 unit/mL suspension Indications: Thrush Take 5 mL (500,000 Units total) by mouth 4 (four) times a day. 200 mL 07/12/2017 08/25/2023 Discontinued (Therapy completed) omeprazole 40 mg delayed release oral capsule (20 sources) Proton Pump Inhibitor Start: 01-26-2024 End: 02-03-2024 take 1 capsule by mouth once daily as needed for gastroesophageal reflux disease omeprazole (PriLOSEC) 40 mg capsule TAKE 1 CAPSULE BY MOUTH EVERY DAY NEEDED FOR HEARTBURN 90 capsule 1 01/26/2024 02/03/2024 Discontinued (Therapy completed) Start: 04-02-2023 End: 03-07-2024 take 1 capsule by mouth once daily as needed for gastroesophageal reflux disease omeprazole (PriLOSEC) 40 mg capsule Take 1 capsule (40 mg total) by mouth daily as needed (heartburn). 30 capsule 1 12/29/2023 01/26/2024 Discontinued Comment on above: Take 40 mg by mouth once daily. oxyCODONE hydrochloride 5 mg oral tablet (1 source) Opioid Agonist Start: End: take 1 tablet by mouth every six hours as needed oxyCODONE IR (ROXICODONE) 5 mg immediate release tablet Indications: Post-op pain Take 1 tablet by mouth every 6 hours as needed for up to 5 days. 15 tablet 0 09/04/2023 09/09/2023 phentermine hydrochloride 37.5 mg oral tablet (20 sources) Sympathomimetic Amine Anorectic Start: End: take 1 tablet by mouth before mealtime phentermine (Adipex-P) 37.5 MG tablet Indications: Encounter for weight management Take 1 tablet (37.5 mg) by mouth in the morning. Take before meals. 30 tablet 04/10/2024 12/07/2024 Discontinued (Other) terbinafine hydrochloride 10 mg/ml topical cream (12 sources) Allylamine Antifungal Start: End: terbinafine (LamISIL AT) 1 % cream Apply 1 Application topically in the morning and 1 Application before bedtime. 30 g 1 11/23/2023 02/04/2024 Discontinued (Stop Taking at Discharge) 24 hr venlafaxine 37.5 mg extended release oral capsule (20 sources) Serotonin and Norepinephrine Reuptake Inhibitor Start: End: take 1 capsule by mouth once daily venlafaxine XR (Effexor XR) 37.5 MG 24 hr capsule Indications: Anxiety, generalized TAKE 1 CAPSULE BY MOUTH DAILY DO NOT CRUSH OR CHEW. 90 capsule 2 02/17/2024 12/07/2024 Discontinued (Other) Start: 01-25-2024 End: 01-24-2025 take 1 capsule by mouth every twenty-four hours in the morning venlafaxine XR (EFFEXOR XR) 37.5 mg 24 hr capsule Take 1 capsule (37.5 mg total) by mouth in the morning. 01/25/2024 01/24/2025 Active Problems Active Problems Problem Classification Problem Date Documented Da te Episodic/Chronic Acute and chronic tonsillitis (20 sources) Hypertrophy of tonsils; Translations: [Hypertrophy of tonsils] Onset: 7 06-23-2018 Chronic Allergic reactions (2 sources) Allergic contact dermatitis; Translations: [Allergic contact dermatitis, unspecified cause] Onset: 5 02-08-2024 Episodic Anxiety disorders (20 sources) Generalized anxiety disorder; Translations: [Generalized anxiety disorder] Onset: Chronic Complications of surgical procedures or medical care (20 sources) Postprocedural hypothyroidism; Translations: [Postoperative hypothyroidism] Onset: 4 10-29-2023 Chronic Contraceptive and procreative management (4 sources) Patient encounter status; Translations: [Persons encountering health services in other specified circumstances] 04-10-2024 Episodic Esophageal disorders (20 sources) Gastroesophageal reflux disease; Translations: [Gastro-esophageal reflux disease without esophagitis] Onset: 4 Chronic Menstrual disorders (20 sources) Irregular periods; Translations: [Irregular menstruation, unspecified] Onset: 4 03-07-2024 Chronic Mood disorders (20 sources) Mild major depression; Translations: [Major depressive disorder, single episode, mild] Onset: 4 Chronic Nausea and vomiting (20 sources) Nausea; Translations: [Nausea] Onset: 4 02-18-2024 Episodic Other complications of (2 sources) Uterine contractions problem; Translations: [Other specified related conditions, unspecified trimester] 11-22-2024 Episodic Other disorders of stomach and duodenum (1 source) Gastroparesis; Translations: [Gastroparesis] Onset: 4 Episodic Other endocrine disorders (14 sources) Polycystic ovary syndrome; Translations: [Polycystic ovarian syndrome] Onset: 4 08-18-2023 Chronic Other endocrine disorders (1 source) Polycystic ovarian syndrome; Translations: [PCOS (polycystic ovarian syndrome)] Onset: 4 Chronic Other endocrine disorders (2 sources) Disorder of endocrine system; Translations: [Endocrine disorder, unspecified] 03-07-2024 Episodic Other gastrointestinal disorders (1 source) Chronic idiopathic constipation; Translations: [Chronic idiopathic constipation] 02-08-2024 Chronic Other gastrointestinal disorders (1 source) Other dysphagia; Translations: [Other dysphagia] Onset: 4 Episodic Other nervous system disorders (1 source) Other acute postprocedural pain; Translations: [Post-op pain] Onset: 4 Episodic Other nutritional; endocrine; and metabolic disorders (15 sources) Obese; Translations: [Obesity, unspecified] Onset: 2 Chronic Other nutritional; endocrine; and metabolic disorders (2 sources) Obesity, unspecified; Translations: [Obesity, pediatric, BMI greater than or equal 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] Onset: 2 Chronic Other nutritional; endocrine; and metabolic disorders (5 sources) Body mass index 40+ - severely obese; Translations: [Body mass index (BMI) 40.0-44.9, adult] Chronic Other nutritional; endocrine; and metabolic disorders (2 sources) Body mass index (BMI) 40.0-44.9, adult Chronic Other nutritional; endocrine; and metabolic disorders (1 source) Other obesity due to excess calories; Translations: [Other obesity due to excess calories] Onset: 4 Chronic Other nutritional; endocrine; and metabolic disorders (1 source) Body mass index (BMI) 38.0-38.9, adult; Translations: [Body mass index (BMI) 38.0-38.9, adult] Onset: 4 Chronic Other nutritional; endocrine; and metabolic disorders (1 source) Obesity caused by energy imbalance; Translations: [Other obesity due to excess calories] 08-25-2023 Chronic Other nutritional; endocrine; and metabolic disorders (1 source) Personal history of other endocrine, nutritional and metabolic disease; Translations: [History of thyroid nodule] Onset: 2 Episodic Other nutritional; endocrine; and metabolic disorders (1 source) Abnormal weight gain Episodic Other nutritional; endocrine; and metabolic disorders (4 sources) Weight increased; Translations: [Abnormal weight gain] 03-07-2024 Episodic Other and delivery including normal (2 sources) ; Translations: [Encounter for supervision of normal , unspecified, unspecified trimester] 12-07-2024 Episodic Other skin disorders (1 source) Localized swelling, mass and lump, neck Episodic Thyroid disorders (20 sources) Thyroid nodule; Translations: [Nontoxic single thyroid nodule] Onset: 9 06-23-2018 Chronic Unclassified (1 source) athletes foot spread to hands. skin cracking Onset: 4 Unclassified (1 source) Annual Exam Onset: 4 Unclassified (1 source) Acute candidiasis of vulva and vagina; Translations: [Acute candidiasis of vulva and vagina] Onset: 4 Unclassified (1 source) Generalized Body Aches Onset: 4 Unclassified (1 source) New Patient Onset: 4 Unclassified (1 source) Insect Bite Onset: 5 Past or Other Problems Problem Classification Problem Date Documented Date Episodic/Chronic Abdominal pain (10 sources) Indigestion; Translations: [Epigastric pain] Onset: 4 02-18-2024 Episodic Fever of unknown origin (1 source) Fever Onset: Episodic Headache; including migraine (1 source) Acute headache; Translations: [Acute nonintractable headache, unspecified headache type] 04-04-2024 Episodic Hemorrhoids (12 sources) Unspecified hemorrhoids; Translations: [Hemorrhoids] Onset: 4 02-18-2024 Episodic Immunizations and screening for infectious disease (3 sources) Encounter for immunization; Translations: [Influenza vaccination given] Onset: 4 02-18-2024 Episodic Mood disorders (20 sources) Mood disorders Onset: 4 Resolved: 4 09-28-2023 Mycoses (20 sources) Tinea pedis; Translations: [Candidiasis of vagina] Onset: 8 09-28-2023 Episodic Other aftercare (2 sources) Postoperative visit; Translations: [Encounter for other specified surgical aftercare] 01-25-2024 Episodic Other disorders of stomach and duodenum (2 sources) Functional dyspepsia; Translations: [Functional dyspepsia] Onset: 4 Episodic Other disorders of stomach and duodenum (13 sources) Delayed gastric emptying; Translations: [Functional dyspepsia] Onset: 4 02-04-2024 Episodic Other disorders of stomach and duodenum (12 sources) Disorder of function of stomach; Translations: [Other diseases of stomach and duodenum] Onset: 4 02-04-2024 Episodic Other disorders of stomach and duodenum (10 sources) Gastroparesis syndrome; Translations: [Gastroparesis] Onset: 4 02-18-2024 Episodic Other disorders of stomach and duodenum (1 source) Other diseases of stomach and duodenum; Translations: [Other diseases of stomach and duodenum] Onset: 4 Episodic Other female genital disorders (15 sources) Female genital organ symptoms; Translations: [Unspecified condition associated with female genital organs and menstrual cycle] Onset: 4 02-18-2024 Episodic Other gastrointestinal disorders (13 sources) Dysphagia; Translations: [Dysphagia, pharyngoesophageal phase] Onset: 4 02-04-2024 Episodic Other gastrointestinal disorders (10 sources) Constipation; Translations: [Constipation, unspecified] Onset: 4 02-18-2024 Episodic Other gastrointestinal disorders (2 sources) Esophageal dysphagia; Translations: [Other dysphagia] 02-03-2024 Episodic Other gastrointestinal disorders (1 source) Dysphagia, pharyngoesophageal phase; Translations: [Dysphagia, pharyngoesophageal phase] Onset: 4 Episodic Other lower respiratory disease (1 source) Cough Onset: 4 Episodic Other nervous system disorders (20 sources) History of otitis media; Translations: [Personal history of other diseases of the nervous system and sense organs] Onset: 7 06-23-2018 Episodic Other nutritional; endocrine; and metabolic disorders (17 sources) H/O: thyroid disorder; Translations: [Personal history of other endocrine, nutritional and metabolic disease] Onset: 2 Episodic Other nutritional; endocrine; and metabolic disorders (2 sources) Body mass index (BMI) pediatric, greater than or equal 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; Translations: [Obesity, pediatric, BMI greater than or equal 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] Onset: 2 Episodic Other nutritional; endocrine; and metabolic disorders (10 sources) Unintentional weight loss; Translations: [Abnormal weight loss] Onset: 4 02-18-2024 Episodic Other screening for suspected conditions (not mental disorders or infectious disease) (20 sources) Thyroid function tests abnormal; Translations: [Other specified abnormal findings of blood chemistry] Onset: 2 Episodic Other skin disorders (1 source) Cystic acne; Translations: [Acne vulgaris] 08-25-2023 Episodic Other skin disorders (10 sources) Ingrowing toenail; Translations: [Ingrowing nail] Onset: 4 02-18-2024 Episodic Other upper respiratory disease (1 source) Pain in throat Onset: 4 Episodic Other upper respiratory disease (1 source) Nasal congestion Onset: 4 Episodic Other upper respiratory disease (20 sources) Nasal obstruction; Translations: [Other specified disorders of nose and nasal sinuses] Onset: 7 05-13-2017 Episodic Other upper respiratory disease (20 sources) Bleeding from nose; Translations: [Epistaxis] Onset: 8 07-12-2017 Episodic Other upper respiratory infections (2 sources) Acute frontal sinusitis, unspecified; Translations: [Acute frontal sinusitis] Onset: 4 09-28-2023 Episodic Otitis media and related conditions (20 sources) Dysfunction of bilateral eustachian tubes; Translations: [Other specified disorders of Eustachian tube, bilateral] Onset: 7 06-23-2018 Episodic Residual codes; unclassified (13 sources) FH: Thyroid disorder; Translations: [Family history of other endocrine, nutritional and metabolic diseases] Onset: 9 06-23-2018 Episodic Residual codes; unclassified (2 sources) High risk heterosexual behavior; Translations: [High risk heterosexual behavior] Onset: 4 Episodic Residual codes; unclassified (1 source) Other general symptoms and signs; Translations: [Other general symptoms and signs] Onset: 4 Episodic Residual codes; unclassified (2 sources) History of laparoscopy; Translations: [Other specified postprocedural states] 01-25-2024 Episodic Residual codes; unclassified (1 source) Viral syndrome; Translations: [Other general symptoms and signs] 09-28-2023 Episodic Residual codes; unclassified (1 source) High risk heterosexual behavior; Translations: [High risk heterosexual behavior] 10-28-2023 Episodic Results Test Name Value Interpretation Reference Range Facility HCG ( test) Ql (U)o n 12-07-2024 Interpretation and review of laboratory results Abnormal [facility] Preg Test, Ur Positive Negative [facility] Urinalysis macro (dipstick) panel (U)on 12-07-2024 Bilirubin, UA Negative Negative - 4(70) +++ mg/dL [facility] Blood, UA Negative Negative - 50 Joshua/mcL [facility] Clarity, UA Clear [facility] Color, UA Yellow [facility] Glucose, UA Negative Negative - 2000(110) ++++ mg/dL [facility] Interpretation and review of laboratory results Normal [facility] Ketones, UA Negative Negative - 160(16) ++++ mg/dL [facility] Leukocytes, UA Negative Negative - 500+++ Diego/mcL [facility] Nitrite, UA Negative Negative - Positive [facility] pH, UA 6.5 5 - 9 [facility] Protein, UA Negative Negative - 1999(20) ++++ mg/dL [facility] Spec Grav, UA 1.025 1 - 1.03 [facility] Urobilinogen, UA 1.0 0.2 - 12 mg/dL [facility] OB TRANSVAGINALon 11-30- 025 US OB TRANSVAGINAL FINDINGS: A single intrauterine gestational sac is [...] BY: ELECTRONICALLY SIGNED BY: Nathen Brown MD Normal Not Available Comment on above: Order Comment: US OB TRANSVAGINAL Patient's last menstrual period was 10/02/2024. HCG ( test) Ql (U)o n 11-22-2024 Interpretation and review of laboratory results Abnormal [facility] Preg Test, Ur Positive Negative [facility] Urinalysis macro (dipstick) panel (U)on 11-22-2024 Bilirubin, UA Negative Negative - 4(70) +++ mg/dL [facility] Blood, UA Negative Negative - 50 Joshua/mcL [facility] Clarity, UA Clear [facility] Color, UA Yellow [facility] Glucose, UA Negative Negative - 1999(110) ++++ mg/dL [facility] Interpretation and review of laboratory results Normal [facility] Ketones, UA Negative Negative - 160(16) ++++ mg/dL [facility] Leukocytes, UA Negative Negative - 500+++ Diego/mcL [facility] Nitrite, UA Negative Negative - Positive [facility] pH, UA 6 5 - 9 [facility] Protein, UA Negative Negative - 1999(20) ++++ mg/dL [facility] Spec Grav, UA 1.01 1 - 1.03 [facility] Urobilinogen, UA 1.0 0.2 - 12 mg/dL [facility] PREG QUANT HCGon 025 HCG QUANTITATIVE 4630 mIU/mL [facility] Comment on above: 5-50 0.2-1 WEEK 50-500 1-2 WEEKS 100-5,000 2-3 WEEKS 500-10,000 3-4 WEEKS 1,000-50,000 4-5 WEEKS 10,000-100,000 5-6 WEEKS 15,000-200,000 6-8 WEEKS 10,000-100,000 2-3 MONTHS [facility] ALL THYROID STIM HORMONEon 0 11-13-2024 Interpretation and review of laboratory results Abnormal [facility] TSH Qn 12.103 m[IU]/L High [facility] No Panel Informationon 11-13 [facility] HCGon 025 HCG QUANTITATIVE 481 mIU/mL [facility] Comment on above: 5-50 0.2-1 WEEK 50-500 1-2 WEEKS 100-5,000 2-3 WEEKS 500-10,000 3-4 WEEKS 1,000-50,000 4-5 WEEKS 10,000-100,000 5-6 WEEKS 15,000-200,000 6-8 WEEKS 10,000-100,000 2-3 MONTHS FREE T4on 03-31-2024 Free T4 [Mass/Vol] 0.93 ng/dL Normal 0.61-1.60 [facility] Comment on above: Performed By: #### 3 024-7 #### [facility] ([id number]) [address], [address] [place] [address] TSHon 03-31-2024 TSH Qn 11.47 m[IU]/L High [facility] TSH Qnon 03-31-2024 Interpretation and review of laboratory results Abnormal [facility] TSH 11.47 uIU/mL High 0.49-4.67 [facility] Comment on above: Performed By: #### 3 016-3 #### [facility] ([id number]) [address], [address] [place] [address] [facility] PREG QUANT HCGon 024 HCG QUANTITATIVE <1 mIU/mL [facility] Comment on above: 5-50 0.2-1 WEEK 50-500 1-2 WEEKS 100-5,000 2-3 WEEKS 500-10,000 3-4 WEEKS 1,000-50,000 4-5 WEEKS 10,000-100,000 5-6 WEEKS 15,000-200,000 6-8 WEEKS 10,000-100,000 2-3 MONTHS [facility] PREG QUANT HCGon 024 HCG QUANTITATIVE <1 mIU/mL [facility] Comment on above: 5-50 0.2-1 WEEK 50-500 1-2 WEEKS 100-5,000 2-3 WEEKS 500-10,000 3-4 WEEKS 1,000-50,000 4-5 WEEKS 10,000-100,000 5-6 WEEKS 15,000-200,000 6-8 WEEKS 10,000-100,000 2-3 MONTHS [facility] PREG QUANT HCGon 024 HCG QUANTITATIVE <1 mIU/mL [facility] Comment on above: 5-50 0.2-1 WEEK 50-500 1-2 WEEKS 100-5,000 2-3 WEEKS 500-10,000 3-4 WEEKS 1,000-50,000 4-5 WEEKS 10,000-100,000 5-6 WEEKS 15,000-200,000 6-8 WEEKS 10,000-100,000 2-3 MONTHS [facility] PREG QUANT HCGon 024 HCG QUANTITATIVE <1 mIU/mL [facility] Comment on above: 5-50 0.2-1 WEEK 50-500 1-2 WEEKS 100-5,000 2-3 WEEKS 500-10,000 3-4 WEEKS 1,000-50,000 4-5 WEEKS 10,000-100,000 5-6 WEEKS 15,000-200,000 6-8 WEEKS 10,000-100,000 2-3 MONTHS [facility] HCG,Urineon 03-03-2024 Beta HCG ( test) Ql (U) Negative Normal [facility] Comment on above: Result Comment: PERF ORMED BY: [place] [address] PATHOLOGIST [employer] MAIK BARNES M.D. Performed By: #### U HCG #### [address] NM gastric emptying studyon 03-03-2024 NM gastric emptying study [facility] [place] [address] [place] [address] Nuclear Medicine Report Signed Patient: Sheyla Lea I MR#: [id number] : 2005 Acct:[id number] Age/Sex: 18 / F ADM Date: 03/03/24 Loc: [place] Room: Type: [facility] Attending Dr: Brooke Conde DO Copies to: DO Salinas Giron II, MD Ordering Provider: Brooke Conde DO Date of Service: 03/03/24 NM/NM gastric emptying study: K31.84 - Gastroparesis NM gastric emptying study 03/03/2024 6:41 AM SIGNS AND SYMPTOMS: Gastroparesis PROTOCOL: Scintigraphic images of the abdomen were obtained after oral radiotracer administration. Images were obtained for 240 minutes. COMPARISON: None. RADIOPHARMACEUTICAL: 1.0 mCi of oral technetium 99m sulfur colloid mixed with egg FINDINGS: Radiotracer material is noted within the gastric lumen. There is no evidence of gastroesophageal reflux. There is emptying into the small bowel throughout the study. At 30 minutes of 95% of radiotracer material is retained within the gastric lumen. At 60 minutes 82% of radiotracer material is retained within the gastric lumen. At 120 minutes 36% of radiotracer material is retained within the gastric lumen. At 180 minutes 16% of radiotracer material is retained within the gastric lumen. At 240 minutes 5% of radiotracer material is retained within the gastric lumen. NM/NM gastric emptying study IMPRESSION: Normal gastric emptying study. Impression dictated by: Salinas Adams M.D.03/03/2024 1:04 PM Dictation Location: [place] [address] Transcribed By: [facility] 03/03/24 1304 Dictated By: Salinas Adams II, MD 03/03/24 1302 Signed By: 03/03/24 1304 Normal [facility] FREE T4on 02-18-2024 Free T4 [Mass/Vol] 1.48 ng/dL Normal 0.61-1.60 [facility] Comment on above: Performed By: #### 3 016-3, 3024-7 #### [facility] ([id number]) [address] [place] [address], [address] [place] [address] Free T4 [Mass/Vol]on 024 [facility] T4, freeon 02-18-2024 Free T4 [Mass/Vol] 1.48 ng/dL 0.61 - 1.60 ng/dL [facility] TSHon 02-18-2024 TSH Qn 0.01 m[IU]/L Low [facility] TSH Qnon 02-18-2024 Interpretation and review of laboratory results Abnormal [facility] TSH 0.01 uIU/mL Low 0.49-4.67 [facility] Comment on above: Performed By: #### 3 016-3, 3024-7 #### [facility] ([id number]) [address] [place] [address], [address] [place] [address] HCG ( test) Ql (U)o n 02-04-2024 Beta HCG ( test) Ql (U) Negative Normal NEG [facility] Comment on above: Performed By: #### 2 106-3 #### [facility] ([id number]) [address] [place] [address], [place] [address] Surgical Pathologyon 024 Surgical Pathology Normal [facility] Comment on above: Result Comment: [facility] [address] [place] [id number] Surgical Pathology Consultation Patient Name:SHEYLA LEA I.:2005 (Age: 18)Gender:FTaken:4Reported:9/24/2024Physician(s):Niki Hollis MD ([phone])Copy To: Rec. #:[id number]: #[id number] Final Pathologic Diagnosis 1. Duodenum, biopsy: Duodenal mucosa with no significant diagnostic abnormality. No evidence of celiac disease. 2. Stomach, antrum, biopsy: Gastric mucosa with mild reactive changes. No histological evidence of H. pylori infection on routine stain. 3. Distal esophagus, biopsy: Mildly reactive junctional mucosa without intestinal metaplasia. Report Electronically Signed Out rg/4Rkhai Cates MD Interpretation performed at [facility], [address] [place] [address], License number: [id number]. Clinical History Dysphagia. Gross Description 1. Received in formalin labeled, HOFACKER, duodenum are 8 pale-buckley delicate soft tissue fragments, 0.1-0.4 cm in greatest dimension. The specimens are submitted in single cassette. (1, ns, [id number], m8) TB 2. Received in formalin labeled, HOFACKER, antrum are 4 pale-buckley delicate soft tissue fragments, 0.1-0.3 cm in greatest dimension. The specimens are filtered and submitted a single cassette. (1, ns, [id number], m8) TB 3. Received in formalin labeled, HOFACKER, distal esophagus are 3 buckley delicate soft tissue fragments, 0.2-0.5 cm in greatest dimension. The specimens are filtered and submitted (1, ns, [id number], m8) TB tgb/4AO Specimen(s) Received 1: Duodenum biopsy 2: Antrum biopsy 3: Distal esophageal biopsy Fee Codes(s): 1; 86751 2; 67548 3; 00058 ALL CBC WITH AUTO DIFFon BASOPHILS ABSOLUTE AUTO 0.0 [facility] Basophils/100 WBC (Bld) 0.8 % 0.2 - 2.0 % [facility] Eosinophils/100 WBC (Bld) 1.7 % 0.9 - 7.0 % [facility] Erythrocyte distribution width (RBC) [Ratio] 13.2 % 11.0 - 15.0 % [facility] Hematocrit (Bld) [Volume fraction] 40.6 % 36.0 - 48.0 % [facility] Hemoglobin (Bld) [Mass/Vol] 13.6 g/dL 12.0 - 16.0 g/dL [facility] IMMATURE GRANULOCYTES ABS AUTO 0.01 [facility] Immature granulocytes/100 WBC (Bld) 0.2 % 0.0 - 0.5 % [facility] LYMPHOCYTES ABSOLUTE AUTO 1.9 [facility] Lymphocytes/100 WBC (Bld) 39.0 % 20.5 - 60.0 % [facility] MCH (RBC) [Entitic mass] 27.5 pg 26.7 - 34.0 pg [facility] MCHC (RBC) [Mass/Vol] 33.5 g/dL 29.9 - 35.2 g/dL [facility] MCV (RBC) [Entitic vol] 82.0 fL 81.0 - 99.0 fL [facility] MONOCYTES ABSOLUTE AUTO 0.5 [facility] Monocytes/100 WBC (Bld) 10.4 % 1.7 - 12.0 % [facility] NEUTROPHILS ABSOLUTE AUTO 2.3 [facility] Neutrophils/100 WBC (Bld) 47.9 % 43.0 - 75.0 % [facility] Platelet mean volume (Bld) [Entitic vol] 10.4 fL 9.5 - 13.5 fL [facility] TBH EO # 0.1 [facility]H PLT 223 [facility] RBC 4.95 [facility] WBC 4.8 [facility] Jose 01-14-2024 L Specimen: Re ceived: 01/18/24 Status: [facility] Rechristina Num: [id number] Spec Type: Cytology Subm Dr: Gerardo Meredith Tissues: A ASCITES (PELVIC FLUID) Procedures: HE/2, Gross/Micro L4, Cyto Prepstain, PAPSTN Age/ Patient Sex Location Account Attending Physician Sheyla Lea I 18/F LABELL [id number] Gerardo Meredith SPEC NUM: RECD: 01/18/24 STATUS: JORDYNJulius REChristina NUM: [id number] JAREK: 01/14/[address]: Gerardo Meredith ENTERED: 01/18/[address]: Anoop,Lab SPEC TYPE: Cytology DEPT: [facility] ENTERED BY: [id number] RECV BY: [id number] ORDERED: HE/2, Gross/Micro L4, Cyto Prepstain, PAPSTN ORDERED: HE/2, Gross/Micro L4, Cyto Prepstain, PAPSTN Pathological Diagnosis Pelvic fluid cytology: Negative for malignant cells. Gross Description Received fresh is 10 ml yellow clear unfixed fluid for cytology said to have been obtained as pelvic fluid. ThinPrep and cell block preparations are prepared for microscopic examination. (NM/de) CPT Codes 53789 Specimen: [id number] Received: 01/18/24 Status: VERO He Num: [id number] Spec Type: Cytology Subm Dr: Gerardo Meredith Tissues: A ASCITES (PELVIC FLUID) Procedures: HE/2, Gross/Micro L4, Cyto Prepstain, PAPSTN Patient: LucianocorrineSheyla I [id number] (Continued) Signed (signature on file) Cleo Beckford MD 01/19/24 1433 Normal [facility] Chlamydia/GC by PCR urineon 10-29-2023 Chlamydia sp DNA SWAPNA+probe Ql (Unsp spec) Negative Negative^Neg ative [facility] Comment on above: Chlamydia trachomatis not detected by nucleic acid amplification. This does not exclude the possibility of infection because results are dependent on adequate specimen collection. N. gonorrhoeae DNA SWAPNA+probe Ql (Unsp spec) Negative Negative^Neg ative [facility] Comment on above: Neisseria gonorrhoeae not detected by nucleic acid amplification. This does not exclude the possibility of infection because results are dependent on adequate specimen collection. Specimen source Nom (Unsp spec) CLEAN CATCH MIDSTREAM URINE [facility] Comprehensive metabolic pane jose 10-29-2023 Albumin [Mass/Vol] 4.4 g/dL 3.2 - 5.3 g/dL [facility] ALP [Catalytic activity/Vol] 64 U/L 39 - 130 U/L [facility] ALT No additional P-5'-P [Catalytic activity/Vol] 18 U/L 0 - 31 U/L [facility] Anion gap [Moles/Vol] 10 mmol/L 5 - 15 mmol/L [facility] AST [Catalytic activity/Vol] 16 U/L 0 - 41 U/L [facility] Bilirubin [Mass/Vol] 0.4 mg/dL 0.3 - 1.2 mg/dL [facility] Calcium [Mass/Vol] 9.8 mg/dL 8.5 - 10.5 mg/dL [facility] Chloride [Moles/Vol] 102 mmol/L 98 - 109 mmol/L [facility] CO2 [Moles/Vol] 25 mmol/L 22 - 32 mmol/L [facility] Creatinine [Mass/Vol] 0.65 mg/dL 0.40 - 1.00 mg/dL [facility] Comment on above: METHOD TRACEABLE TO [facility] STANDARD eGFR (CKD-EPI)non-race dependent - PINF [facility] Comment on above: Reported eGFR is based on the CKD-EPI 2020 equation that does not use a race coefficient. Glucose [Mass/Vol] 80 mg/dL 65 - 99 mg/dL [facility] Potassium [Moles/Vol] 4.1 mmol/L 3.5 - 5.0 mmol/L [facility] Protein [Mass/Vol] 7.3 g/dL 6.0 - 8.0 g/dL [facility] Sodium [Moles/Vol] 137 mmol/L 134 - 146 mmol/L [facility] Urea nitrogen [Mass/Vol] 12 mg/dL 5 - 23 mg/dL [facility] Free T4 [Mass/Vol]on [facility] Lipid 1996 panelon 4 Cholesterol [Mass/Vol] 157 mg/dL 150 - 200 mg/dL [facility] Cholesterol in HDL [Mass/Vol] 56 mg/dL 39 - PINF mg/dL [facility] Comment on above: HDL <40 mg/dL - High Risk HDL > or = 40mg/dL- Desirable HDL >60 mg/dL - Negative Risk Cholesterol in LDL [Mass/Vol] 85 mg/dL NINF - 130 mg/dL [facility] Comment on above: LDL <100 mg/dL - Desirable LDL >160 mg/dL - High Risk Cholesterol in VLDL [Mass/Vol] 16 mg/dL 0 - 30 mg/dL [facility] Cholesterol.total /Cholesterol in HDL [Mass ratio] 2.8 {ratio} 1.0 - 5.0 [facility] Triglyceride [Mass/Vol] 80 mg/dL 27 - 150 mg/dL [facility] No Panel Informationon 10-28 [facility] T4, freeon 10-29-2023 Free T4 [Mass/Vol] 0.73 ng/dL 0.61 - 1.60 ng/dL [facility] TSH with Reflexon 10-29-2023 Interpretation and review of laboratory results Abnormal [facility] TSH Qn 22.23 m[IU]/L High [facility] Trichomonas by PCRon 024 Specimen source Nom (Body fld) CLEAN CATCH MIDSTREAM URINE [facility] T. vaginalis rRNA Probe Ql (Genital specimen) Not detected Not Detected^Not Detected [facility] Comment on above: Trichomonas vaginali s not detected NOTE Assay methodology is nucleic acid amplification by real-time PCR for detection of Trichomonas vaginalis DNA performed on [employer] System. [facility] CHLAMYDIA/GC PCR, Uon 2023 CHLAMYDIA/GC PCR, U [...] are dependent on adequate specimen collection. Normal [facility] Comment on above: Performed By: #### C #### [facility] ([id number]) [address], [address] [place] [address] COMPREHENSIVE METABOLIC PANE [facility] 10-28-2023 Albumin [Mass/Vol] 4.4 g/dL Normal 3.2-5.3 [facility] Comment on above: Performed By: #### [place], 12099-3, TSHR, 3024-7 #### [facility] ([id number]) [address], [address] [place] [address] ALP [Catalytic activity/Vol] 64 U/L Normal 39-130 [facility] Comment on above: Performed By: #### C VINCENT, 90929-0, TSHR, 7 #### [facility] ([id number]) [address], [address] [place] [address] ALT [Catalytic activity/Vol] 18 U/L Normal 0-31 [facility] Comment on above: Performed By: #### C VINCENT, 67768-2, TSHR, 3023-7 #### [facility] ([id number]) [address], [address] [place] [address] Anion gap [Moles/Vol] 10 mmol/L Normal 5-15 [facility] Comment on above: Performed By: #### C VINCENT, 21379-5, TSHR, 7 #### [facility] ([id number]) [address], [address] [place] [address] AST [Catalytic activity/Vol] 16 U/L Normal 0-41 [facility] Comment on above: Performed By: #### C VINCENT, 14039-5, TSHR, 7 #### [facility] ([id number]) [address], [address] [place] [address] Bilirubin [Mass/Vol] 0.4 mg/dL Normal 0.3-1.2 [facility] Comment on above: Performed By: #### C VINCENT, 33779-2, TSHR, 7 #### [facility] ([id number]) [address], [address] [place] [address] Calcium [Mass/Vol] 9.8 mg/dL Normal 8.5-10.5 [facility] Comment on above: Performed By: #### C VINCENT, 37797-6, TSHR, 7 #### [facility] ([id number]) [address], [address] [place] [address] Chloride [Moles/Vol] 102 mmol/L Normal 98-109 [facility] Comment on above: Performed By: #### C VINCENT, 48881-6, TSHR, 7 #### [facility] ([id number]) [address] [address] CO2 [Moles/Vol] 25 mmol/L Normal 22-32 [facility] [facility] Comment on above: Performed By: #### C VINCENT, 02513-4, TSHR, 7 #### [facility] ([id number]) [address] [address] Creatinine [Mass/Vol] 0.65 mg/dL Normal 0.40-1.00 [facility] Comment on above: Result Comment: METH OD TRACEABLE TO IDMS STANDARD Performed By: #### C VINCENT, 60030-4, TSHR, 7 #### [facility] ([id number]) [address] [address] eGFR (CKD-EPI) NON-RACE DEPENDENT >90 Normal >59 [facility] Comment on above: Result Comment: Reported eGFR is based on the CKD-EPI 2020 equation that does not use a race coefficient. Performed By: #### C VINCENT, 48222-1, TSHR, 7 #### [facility] ([id number]) [address] [address] Glucose [Mass/Vol] 80 mg/dL Normal 65-99 [facility] Comment on above: Performed By: #### C VINCENT, 07895-1, TSHR, 7 #### [facility] ([id number]) [address] [address] Potassium [Moles/Vol] 4.1 mmol/L Normal 3.5-5.0 [facility] Comment on above: Performed By: #### C VINCENT, 85883-2, TSHR, 7 #### [facility] ([id number]) [address] [place] [address] Protein [Mass/Vol] 7.3 g/dL Normal 6.0-8.0 [facility] Comment on above: Performed By: #### C VINCENT, 73891-9, TSHR, 3023-7 #### [facility] ([id number]) [address], [facility] [address] [place] [address] Sodium [Moles/Vol] 137 mmol/L Normal 134-146 [facility] Comment on above: Performed By: #### C VINCENT, 34235-7, TSHR, 3023-7 #### [facility] ([id number]) [address] [address] [place] [address] Urea nitrogen [Mass/Vol] 12 mg/dL Normal 5-23 [facility] Comment on above: Performed By: #### C VINCENT, 17731-5, TSHR, 3023-7 #### [facility] ([id number]) [address] [address] FREE T4on 10-28-2023 Free T4 [Mass/Vol] 0.73 ng/dL Normal 0.61-1.60 [facility] Comment on above: Performed By: #### C VINCENT, 78721-6, TSHR, 3023-7 #### [facility] ([id number]) [address] [address] Lipid 1996 panelon Cholesterol [Mass/Vol] 157 mg/dL Normal 150-200 [facility] Comment on above: Performed By: #### C VINCENT, 36922-3, TSHR, 3024-7 #### [facility] ([id number]) [address] [address] Cholesterol in HDL [Mass/Vol] 56 mg/dL Normal >39 [facility] Comment on above: Result Comment: HDL <40 mg/dL - High Risk HDL > or = 40mg/dL- Desirable HDL >60 mg/dL - Negative Risk Performed By: #### C VINCENT, 46658-9, TSHR, 3024-7 #### [facility] ([id number]) [address], [address] [place] [address] Cholesterol in LDL [Mass/Vol] 85 mg/dL Normal <130 [facility] Comment on above: Result Comment: LDL <100 mg/dL - Desirable LDL >160 mg/dL - High Risk Performed By: #### Joseline KAUR, 93870-7, TSHR, 3024-7 #### [facility] ([id number]) [address], [address] [place] [address] Cholesterol in VLDL [Mass/Vol] 16 mg/dL Normal 0-30 [facility] Comment on above: Performed By: #### Joseline KAUR, 77592-9, TSHR, 3024-7 #### [facility] ([id number]) [address], [address] [place] [address] CHOLESTEROL:HDL 2.8 Normal 1.0-5.0 [facility] Comment on above: Performed By: #### Joseline KAUR, 24211-4, TSHR, 3024-7 #### [facility] ([id number]) [address], [address] [place] [address] Triglyceride [Mass/Vol] 80 mg/dL Normal 27-150 [facility] Comment on above: Performed By: #### Joseline KAUR, 29390-9, TSHR, 3024-7 #### [facility] ([id number]) [address], [address] [place] [address] TRICHOMONAS PCRon 10-28-2023 TRICHOMONAS PCR SPECIMEN SOURCE CLEAN CATCH MIDSTREAM URINE TRICHOMONAS PCR Not detected (qualifier value) Trichomonas vaginalis not detected NOTE Assay methodology is nucleic acid amplification by real-time PCR for detection of Trichomonas vaginalis DNA performed on [employer] Gene[employer]pert Instrument System. Normal [facility] Comment on above: Performed By: #### T RKPCR #### [facility] ([id number]) [address], [address] [place] [address] TSH WITH REFLEXon 10-28-2023 TSH 22.23 uIU/mL High 0.49-4.67 [facility] Comment on above: Performed By: #### C MP, 56785-5, TSHR, 3024-7 #### [facility] ([id number]) [address], [address] [place] [address] POCT Influenza A/Influenza B /SARS-COV-2 Veritoron 09-28-2023 External Poct Influenza A Antigen Negative [facility] External Poct Influenza B Antigen Negative [facility] SARS-CoV-2 (COVID-19) Ag IA.rapid Ql (Resp) Negative [facility] CNOVon 09-09-2023 CNOV Office Visit (OTMNCA ) SHEYLA LEA ([id number]) 3 F Date Time Provider Department 09/09/23 [...] Latasha Bobo MD 10/15/2023 12:28 AM Signed [facility] Note CC: Post op of [...] 0 THYROID STIMULATING HORMONE [SQTSH] Order #: [id number] FUTURE PTH INTACT [SQPTHI] Order #: [id number] FU (more content not included)... Normal [facility] Basic metabolic 2000 panelon 09-04-2023 Anion gap [Moles/Vol] 12 mmol/L Normal 9-18 [facility] Comment on above: Order Comment: Speci men Type: BLOOD SPECIMENOrdering Facility: [facility] Address: [address] [place] [address] Performed By: #### 2 777-1, 20219-6, ####[facility] [id number] [place] [address] [place] Calcium [Mass/Vol] 8.7 mg/dL Normal 8.5-10.2 [facility] Comment on above: Order Comment: Speci men Type: BLOOD SPECIMENOrdering Facility: [facility] Address: [address] [place] [address] Performed By: #### 2 777-1, 34373-1, ####[facility] [id number] [place] [address] [place] Chloride [Moles/Vol] 106 mmol/L High 97-105 [facility] Comment on above: Order Comment: Speci men Type: BLOOD SPECIMENOrdering Facility: [facility] Address: [address] [place] [address] Performed By: #### 2 777-1, , ####[facility] [id number] [place] [address] [place] CO2 [Moles/Vol] 21 mmol/L Low 22-30 [facility] Comment on above: Order Comment: Speci men Type: BLOOD SPECIMENOrdering Facility: [facility] Address: [address] [place] [address] Performed By: #### 2 777-1, 58204-8, ####[facility]IA [id number] [address] [address] [place] Creatinine [Mass/Vol] 0.59 mg/dL Normal 0.58-0.96 [facility] Comment on above: Order Comment: Harriet abernathy Type: BLOOD SPECIMENOrdering Facility: [facility] Address: [address] [place] [address] Performed By: #### 2 777-1, 00750-4, ####[facility]IA [id number] [place] [address] [place] Creatinine and Glomerular filtration rate.predicted panel (S/P/Bld) 133 mL/min/1.73m??? Normal >=60 [facility] Comment on above: Order Comment: Harriet abernathy Type: BLOOD SPECIMENOrdering Facility: [facility] Address: [address] [place] [address] Result Comment: Akila mated Glomerular Filtration Rate [...] actual GFR. Performed By: #### 2 777-1, 01497-0, ####[facility]IA [id number] [place] [address] [place] Glucose [Mass/Vol] 85 mg/dL Normal 74-99 [facility] Comment on above: Order Comment: Harriet abernathy Type: BLOOD SPECIMENOrdering Facility: [facility] Address: [address] [place] [address] Result Comment: The [place] [employer] Association (ADA) provides guidance for cutoff [...] Standards of Medical Care in Diabetes 2016, [place] [employer]. Diabetes Care. 2016.39(Suppl 1). Performed By: #### 2 777-1, 81136-3, ####[facility] [id number] [address] [address] [place] Potassium [Moles/Vol] 3.9 mmol/L Normal 3.7-5.1 [facility] Comment on above: Order Comment: Speci men Type: BLOOD SPECIMENOrdering Facility: [facility] Address: [address] [place] [address] Performed By: #### 2 777-1, , ####[facility] LABCLIA [id number] [place] [address] [place] Sodium [Moles/Vol] 139 mmol/L Normal 136-144 [facility] Comment on above: Order Comment: Speci men Type: BLOOD SPECIMENOrdering Facility: [facility] Address: [address] [place] [address] Performed By: #### 2 777-1, , ####[facility] [id number] [address] [address] [place] Urea nitrogen [Mass/Vol] 6 mg/dL Low 7-21 [facility] Comment on above: Order Comment: Speci men Type: BLOOD SPECIMENOrdering Facility: [facility] Address: [address] [place] [address] Performed By: #### 2 777-1, 23825-3, ####[facility] [id number] [address] [address] [place] CBC panel Auto (Bld)on 09-03 Erythrocyte distribution width (RBC) [Ratio] 14.4 % Normal 11.5-15.0 [facility] Comment on above: Order Comment: Speci men Type: BLOOD SPECIMENOrdering Facility: [facility] Address: [address] [place] [address] Performed By: #### 5 8410-2 ####[facility] LABCLIA [id number] [place] [address] [place] Hematocrit (Bld) [Volume fraction] 38.9 % Normal 36.0-46.0 [facility] Comment on above: Order Comment: Speci men Type: BLOOD SPECIMENOrdering Facility: [facility] Address: [address] [place] [address] Performed By: #### 5 8410-2 ####[facility] LAB[facility]IA [id number] [place] [address] [place] Hemoglobin (Bld) [Mass/Vol] 12.4 g/dL Normal 11.5-15.5 [facility] Comment on above: Order Comment: Speci men Type: BLOOD SPECIMENOrdering Facility: [facility] Address: [address] [place] [address] Performed By: #### 5 8410-2 ####[facility]CLIA [id number] [place] [address] [place] MCH (RBC) [Entitic mass] 25.6 pg Low 26.0-34.0 [facility] Comment on above: Order Comment: Speci men Type: BLOOD SPECIMENOrdering Facility: [facility] Address: [address] [place] [address] Performed By: #### 5 8410-2 ####[facility]IA [id number] [place] [address] [place] MCHC (RBC) [Mass/Vol] 31.9 g/dL Normal 30.5-36.0 [facility] Comment on above: Order Comment: Speci men Type: BLOOD SPECIMENOrdering Facility: [facility] Address: [address] [place] [address] Performed By: #### 5 8410-2 ####[facility]CLIA [id number] [place] [address] [place] MCV (RBC) [Entitic vol] 80.2 fL Normal 80.0-100.0 [facility] Comment on above: Order Comment: Speci men Type: BLOOD SPECIMENOrdering Facility: [facility] Address: [address] [place] [address] Performed By: #### 5 8410-2 ####[facility] [id number] [place] [address] [place] Nucleated RBC (Bld) [#/Vol] 10*3/uL Normal <0.01 [facility] Comment on above: Order Comment: Speci men Type: BLOOD SPECIMENOrdering Facility: [facility] Address: [address] [place] [address] Performed By: #### 5 8410-2 ####[facility] [id number] [place] [address] [place] Platelet mean volume (Bld) [Entitic vol] 11.2 fL Normal 9.0-12.7 [facility] Comment on above: Order Comment: Speci men Type: BLOOD SPECIMENOrdering Facility: [facility] Address: [address] [place] [address] Performed By: #### 5 8410-2 ####[facility]IA [id number] [place] [address] [place] Platelets (Bld) [#/Vol] 241 10*3/uL Normal 150-400 [facility] Comment on above: Order Comment: Speci men Type: BLOOD SPECIMENOrdering Facility: [facility] Address: [address] [place] [address] Performed By: #### 5 8410-2 ####[facility]IA [id number] [place] [address] [place] RBC (Bld) [#/Vol] 4.85 10*6/uL Normal 3.90-5.20 [facility] Comment on above: Order Comment: Speci men Type: BLOOD SPECIMENOrdering Facility: [facility] Address: [address] [place] [address] Performed By: #### 5 8410-2 ####[facility]IA [id number] [place] [address] [place] WBC (Bld) [#/Vol] 6.31 10*3/uL Normal 3.70-11.00 [facility] Comment on above: Order Comment: Speci men Type: BLOOD SPECIMENOrdering Facility: [facility] Address: [address] [place] [address] Performed By: #### 5 8410-2 ####[facility]IA [id number] [place] [address] [place] Magnesium SerPl-mCncon 09-03 Magnesium [Mass/Vol] 2.1 mg/dL Normal 1.7-2.3 [facility] Comment on above: Order Comment: Speci men Type: BLOOD SPECIMENOrdering Facility: [facility] Address: [address] [place] [address] Performed By: #### 2 777-1, 04016-6, ####[facility]IA [id number] [place] [address] [place] Phosphate SerPl-mCncon 09-03 Phosphate [Mass/Vol] 3.3 mg/dL Normal 2.7-4.8 [facility] Comment on above: Order Comment: Speci men Type: BLOOD SPECIMENOrdering Facility: [facility] Address: [address] [place] [address] Performed By: #### 2 777-1, 50397-4, ####[facility] LABCLIA [id number] [place] [address] [place] ANES POSTPROC EVALon 024 ANES POSTPROC EVAL HNO ID: [id number] Author: ITZEL ANTONY MD Service: ? Author Type: Physician Type: Anesthesia Postprocedure Evaluation Filed: 09/03/2023 12:57 Note Text: POST ANESTHESIA EVALUATION NOTE : 2005 Procedure Summary Date: 09/03/23 Room / Location: [address] [facility] Anesthesia Start: 721 Anesthesia [...] September 03, 2023 TIME: 12:57 PM CSN: [id number] Normal [facility] ANES PRE-OPon 09-03-2023 ANES PRE-OP HNO ID: [id number] Author: ITZEL ANTONY MD Service: ? Author Type: Physician Type: Anesthesia Preprocedure Evaluation Filed: 09/03/2023 07:25 Note Text: ANESTHESIOLOGY DAY OF SURGERY NOTE : 2005 Procedure Information Anesthesia Start Date/Time: 09/03/23 0722 Procedure: THYROIDECTOMY TOTAL (Bilateral: Thyroid) Location: [address] [facility] Surgeons: Latasha Bobo MD Estimated body mass [...] and consent discussed: yes. Patient / Responsible [employer] Party agrees to proceed: yes Patient / Surrogate agrees to blood products: Yes Potential Anesthesia issues that may suggest increased risk of complications or contraindication to planned procedure: potential difficult IV access. Vitals Value Taken Time BP 95/50 09/03/23 0552 Pulse 80 09/03/23 0552 Resp 18 09/03/23 0552 Temp 36.7 ?C (98.1 ?F) 09/03/23 0552 [...] September 03, 2023 TIME: 7:25 AM CSN: [id number] Normal [facility] BRIEF OP NOTon 09-03-2023 BRIEF OP NOT HNO ID: [id number] Author: JANINE SOLANO MD Service: Otolaryngology Author Type: Resident Type: Brief Op Note Filed: 09/03/2023 12:12 Note Text: BRIEF OP NOTE LOG ID: [id number] Surgery/Procedure Date: 09/03/2023 Incision/Procedure Start Time: 7:53 AM Incision Close/Procedure End Time: 12:06 PM Surgeon(s)/Proceduralist(s) and Sane Rn(s): Surgeon(s) and Role: * Latasha oBbo MD - Primary * Janine Solano MD [...] * Thyroiditis [E06.9] Post-Op/Post-Procedure Diagnosis: same SIGNATURE: Janine Solano MD PATIENT NAME: Sheyla Lea DATE: September 03, 2023 TIME: 12:12 PM PAGER/CONTACT #: [phone] Normal [facility] Calcium.ionized [Moles/Vol]o n 09-03-2023 Calcium.ionized (Bld) [Mass/Vol] 1.28 mmol/L Normal 1.08-1.30 [facility] Comment on above: Order Comment: Speci men Type: BLOOD SPECIMENOrdering Facility: [facility] Address: [address] [place] [address] Performed By: #### 1 995-0 ####[facility] [id number] [address] [place] Calcium.ionized adjusted to pH 7.4 (Bld) [Moles/Vol] 1.22 mmol/L Normal 1.08-1.30 [facility] Comment on above: Order Comment: Speci men Type: BLOOD SPECIMENOrdering Facility: [facility] Address: [address] [place] [address] Performed By: #### 1 995-0 ####[facility] [id number] [place] [address] [place] NURSING PROGon 09-03-2023 NURSING PROG HNO ID: [id number] Author: BRENNEN HOPKINS, MALINDA Service: Nursing Author Type: Registered Nurse Type: Nursing Progress Note Filed: 09/03/2023 14:25 Note Text: Admission/Transfer Note PATIENT NAME: Sheyla Lae Patient Location: Main - Periop OR/Main - Periop OR Room: Main - Periop OR (E020-08) Patient admitted from PACU via bed in stable condition. Actions taken: Patient oriented to room, call light function, prescribed activities, Patient rights, and Quiet at night. This note was completed by: Brennen Alcala [facility] OPERATIVE NOon 09-03-2023 OPERATIVE NO HNO ID: [id number] Author: LATASHA BOBO MD Service: Otolaryngology Author Type: Physician Type: Operative Report Filed: 09/08/2023 23:04 Note Text: [facility] [place] [id number] or ([phone]) [facility] C O N F I D E N T I A L I N F O R M A T I O N -------- [facility] DOCUMENT OPERATIVE REPORT Otolaryngology Head and Neck Surgery Name: Sheyla Lea [facility] #: [id number] Date: 09/03/2023 Date of : 2005 Pre Operative Diagnoses: Hellen's thyroiditis Post Operative Diagnoses: Same Incision/Procedure Start Time: 7:53 AM Incision Close/Procedure End Time: 12:06 PM Surgeon(s) and Role: * Latasha Bobo MD - Primary * Janine Solano MD - Resident - Assisting Procedure(s): 1) Total thyroidectomy Anesthesia: General Operative Indications: Sheyla Lea is an 18 year old female who [...] the clavicle. These were held back with [place] retractors. The midline raphae was was bisected [...] tissue melton (more content not included)... Normal [facility] PTH-Intact SerPl-ncon - Parathyrin.intact [Mass/Vol] 42 pg/mL Normal 15-65 [facility] Comment on above: Order Comment: Speci men Type: BLOOD SPECIMENOrdering Facility: [facility] Address: [address] [place] [address] Performed By: #### 2 731-8 ####[facility] [id number] [address] [place] SURGICAL PATHOLOGYon 024 CASE REPORT Normal [facility] Comment on above: Order Comment: Speci men Type: TISSUE SPECIMENOrdering Facility: [facility] Address: [address] [place] [address] Result Comment: Surg [facility] Pathology Report Case: [id number] Authorizing Provider: Latasha Bobo MD Collected: 09/03/2023 08:16 AM Ordering Location: Admitting Received: 09/03/2023 08:19 AM Pathologist: Javier Nick DMD Intraop: Joel Jeronimo MD Specimens: A) - Trachea, Biopsy, Pre tracheal node B) - Thyroid, Total, Thyroidectomy, stitch williamson left superior pole Performed By: #### S ####[facility] LABIA [id number] [place] [address] [place] CLINICAL HISTORY Normal [facility] Comment on above: Order Comment: Speci men Type: TISSUE SPECIMENOrdering Facility: [facility] Address: [address] [place] [address] Result Comment: Pre- op diagnosis: Thyroiditis [E06.9] Performed By: #### S ####[facility] LABCLIA [id number] [address] OF [facility] FINAL DIAGNOSIS Normal [facility] Comment on above: Order Comment: Speci men Type: TISSUE SPECIMENOrdering Facility: [facility] Address: [address] [place] [address] Result Comment: A. P retracheal lymph node, excision: - Fibroadipose tissue with one benign lymph node. B. 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 Performed By: #### S ####[facility] LAB[facility]IA [id number] [address] OF [facility] FINAL PERFORMING LAB Normal [facility] Comment on above: Order Comment: Speci men Type: TISSUE SPECIMENOrdering Facility: [facility] Address: [address] [place] [address] Result Comment: Diag nostic interpretation performed at [facility], [address] [place] [address] CLIA# [id number] Emergency Department Coordinator: Remy Erickson M.D. Performed By: #### S ####[facility] LABIA [id number] [address] [place] GROSS DESCRIPTION Normal [facility] Comment on above: Order Comment: Speci men Type: TISSUE SPECIMENOrdering Facility: [facility] Address: [address] [place] [address] Result Comment: Ijeoma samaniego, Biopsy Received fresh for frozen section designated pretracheal node is a pink-buckley lymph node that measures 0.4 x 0.4 x 0.3 cm. The specimen is entirely submitted for intraoperative consultation. WE September 03, 2023 8:26 AM Gross examination performed at [facility], [address] [place] [address] B. Thyroid, Total, Thyroidectomy Labeled: Thyroid, total, [...] lobe Blue- external surface of left lobe Glacier- external surface of isthmus Sectioning: The right [...] photograph: No Cassette code: B1: Right lobe, warehouse representative section B2: Left lobe, warehouse representative section B3: Isthmus, warehouse representative section Gross examination performed at [facility], [address] [place] [address] CLIA# [id number] 09/06/23 1:33 PM Performed By: #### S ####[facility] [id number] [place] [address] [place] INTRAOPERATIVE DIAGNOSIS Normal [facility] Comment on above: Order Comment: Speci men Type: TISSUE SPECIMENOrdering Facility: [facility] Address: [address] [place] [address] Result Comment: Ijeoma samaniego, Biopsy FSA 1: Mostly fibroadipose tissue with rare lymphoid aggregate () September 03, 2023 8:35 AM Intraoperative diagnosis performed at [facility], [address] [place] [address] Performed By: #### S ####[facility] LABIA [id number] [place] [address] [place] CNCOon 08-27-2023 CNCO Letter Text Normal [facility] B-HCG SerPl-aCncon HCG.beta subunit Qn m[IU]/mL Normal <5.0 [facility] Comment on above: Order Comment: Speci men Type: BLOOD SPECIMENOrdering Facility: [facility] Address: [address] [place] [address] Result Comment: Sav alicia Performed By: #### 2 1198-7 ####[facility] LABCLIA [id number] [place] [address] [place] Basic metabolic 2000 panelon 08-25-2023 Anion gap [Moles/Vol] 10 mmol/L Normal 9-18 [facility] Comment on above: Order Comment: Speci men Type: BLOOD SPECIMENOrdering Facility: [facility] Address: [address] [place] [address] Performed By: #### 1 5067-2, 3-4, DHEAS, 39071-2 ####[facility] LABCLIA [id number] [place] [address] [place] Calcium [Mass/Vol] 9.8 mg/dL Normal 8.5-10.2 [facility] Comment on above: Order Comment: Speci men Type: BLOOD SPECIMENOrdering Facility: [facility] Address: [address] [place] [address] Performed By: #### 1 5067-2, 3-4, DHEAS, 74025-8 ####[facility] LABCLIA [id number] [place] [address] [place] Chloride [Moles/Vol] 106 mmol/L High 97-105 [facility] Comment on above: Order Comment: Speci men Type: BLOOD SPECIMENOrdering Facility: [facility] Address: [address] [place] [address] Performed By: #### 1 5067-2, 2243-4, DHEAS, 97872-0 ####[facility] LABCLIA [id number] [place] [id number] [place] CO2 [Moles/Vol] 24 mmol/L Normal 22-30 [facility] Comment on above: Order Comment: Speci men Type: BLOOD SPECIMENOrdering Facility: [facility] Address: [address] [place] [address] Performed By: #### 1 5067-2, 3-4, DHEAS, 68096-6 ####[facility] LABCLIA [id number] [place] [address] [place] Creatinine [Mass/Vol] 0.67 mg/dL Normal 0.58-0.96 [facility] Comment on above: Order Comment: Speci men Type: BLOOD SPECIMENOrdering Facility: [facility] Address: [address] [place] [address] Performed By: #### 1 5067-2, 2242-4, DHEAS, 30800-2 ####[facility] LABIA [id number] [place] [address] [place] Creatinine and Glomerular filtration rate.predicted panel (S/P/Bld) 129 mL/min/1.73m??? Normal >=60 [facility] Comment on above: Order Comment: Speci men Type: BLOOD SPECIMENOrdering Facility: [facility] Address: [address] [place] [address] Result Comment: Akila mated Glomerular Filtration Rate [...] GFR. Performed By: #### 1 5067-2, 2242-4, DHEAS, 78006-9 ####[facility] LABIA [id number] [place] [address] [place] Glucose [Mass/Vol] 90 mg/dL Normal 74-99 [facility] Comment on above: Order Comment: Speci men Type: BLOOD SPECIMENOrdering Facility: [facility] Address: [address] [place] [address] Result Comment: The [place] Diabetes Association (ADA) provides guidance for cutoff [...] Standards of Medical Care in Diabetes 2016, [place] Diabetes Association. Diabetes Care. 2016.39(Suppl 1). Performed By: #### 1 5067-2, 2242-4, DHEAS, 27763-4 ####[facility] LABCLIA [id number] [place] [address] [place] Potassium [Moles/Vol] 4.0 mmol/L Normal 3.7-5.1 [facility] Comment on above: Order Comment: Speci men Type: BLOOD SPECIMENOrdering Facility: [facility] Address: [address] [place] [address] Performed By: #### 1 5067-2, 2242-08, DHEAS, 19494-0 ####[facility] LABIA [id number] [place] [address] [place] Sodium [Moles/Vol] 140 mmol/L Normal 136-144 [facility] Comment on above: Order Comment: Speci men Type: BLOOD SPECIMENOrdering Facility: [facility] Address: [address] [place] [address] Performed By: #### 1 5067-2, 2242-4, DHEAS, 48351-5 ####[facility] LABCLIA [id number] [place] [address] [place] Urea nitrogen [Mass/Vol] 10 mg/dL Normal 7-21 [facility] Comment on above: Order Comment: Speci men Type: BLOOD SPECIMENOrdering Facility: [facility] Address: [address] [place] [address] Performed By: #### 1 5067-2, 2243-4, DHEAS, 67422-9 ####[facility] LABCLIA [id number] [place] [address] [place] CBC panel Auto (Bld)on 08-24 Erythrocyte distribution width (RBC) [Ratio] 14.3 % Normal 11.5-15.0 [facility] Comment on above: Order Comment: Speci men Type: BLOOD SPECIMENOrdering Facility: [facility] Address: [address] [place] [address] Performed By: #### 5 8410-2 ####[facility] LABIA [id number] [place] [address] [place] Hematocrit (Bld) [Volume fraction] 41.4 % Normal 36.0-46.0 [facility] Comment on above: Order Comment: Speci men Type: BLOOD SPECIMENOrdering Facility: [facility] Address: [address] [place] [address] Performed By: #### 5 8410-2 ####[facility] LABIA [id number] [place] [address] [place] Hemoglobin (Bld) [Mass/Vol] 13.1 g/dL Normal 11.5-15.5 [facility] Comment on above: Order Comment: Speci men Type: BLOOD SPECIMENOrdering Facility: [facility] Address: [address] [place] [address] Performed By: #### 5 8410-2 ####[facility] LABIA [id number] [place] [address] [place] MCH (RBC) [Entitic mass] 25.3 pg Low 26.0-34.0 [facility] Comment on above: Order Comment: Speci men Type: BLOOD SPECIMENOrdering Facility: [facility] Address: [address] [place] [address] Performed By: #### 5 8410-2 ####[facility] LABCLIA [id number] [place] [address] [place] MCHC (RBC) [Mass/Vol] 31.6 g/dL Normal 30.5-36.0 [facility] Comment on above: Order Comment: Speci men Type: BLOOD SPECIMENOrdering Facility: [facility] Address: [address] [place] [address] Performed By: #### 5 8410-2 ####[facility] LABIA [id number] [place] [address] [place] MCV (RBC) [Entitic vol] 80.1 fL Normal 80.0-100.0 [facility] Comment on above: Order Comment: Speci men Type: BLOOD SPECIMENOrdering Facility: [facility] Address: [address] [place] [address] Performed By: #### 5 8410-2 ####[facility] [id number] [place] [address] [place] Nucleated RBC (Bld) [#/Vol] 10*3/uL Normal <0.01 [facility] Comment on above: Order Comment: Speci men Type: BLOOD SPECIMENOrdering Facility: [facility] Address: [address] [place] [address] Performed By: #### 5 8410-2 ####[facility] LABIA [id number] [place] [address] [place] Platelet mean volume (Bld) [Entitic vol] 11.6 fL Normal 9.0-12.7 [facility] Comment on above: Order Comment: Speci men Type: BLOOD SPECIMENOrdering Facility: [facility] Address: [address] [place] [address] Performed By: #### 5 8410-2 ####[facility] LABIA [id number] [place] [address] [place] Platelets (Bld) [#/Vol] 256 10*3/uL Normal 150-400 [facility] Comment on above: Order Comment: Speci men Type: BLOOD SPECIMENOrdering Facility: [facility] Address: [address] [place] [address] Performed By: #### 5 8410-2 ####[facility] LABIA [id number] [place] [address] [place] RBC (Bld) [#/Vol] 5.17 10*6/uL Normal 3.90-5.20 [facility] Comment on above: Order Comment: Speci men Type: BLOOD SPECIMENOrdering Facility: [facility] Address: [address] [place] [address] Performed By: #### 5 8410-2 ####[facility] LABIA [id number] [place] [address] [place] WBC (Bld) [#/Vol] 3.93 10*3/uL Normal 3.70-11.00 [facility] Comment on above: Order Comment: Speci men Type: BLOOD SPECIMENOrdering Facility: [facility] Address: [address] [place] [address] Performed By: #### 5 8410-2 ####[facility] LABIA [id number] [place] [address] [place] DHEA-S Bill 08-25-2023 DHEA-S [Mass/Vol] 365.3 ug/dL 65.1 - 368 .0 ug/dL [facility] DHEA-S [Mass/Vol] 365.3 ug/dL Normal 65.1-368.0 [facility] Comment on above: Order Comment: Speci men Type: BLOOD SPECIMENOrdering Facility: [facility] Address: [address] [place] [address] Result Comment: Refe rence ranges are age and gender specific. For additional information, reference range tables can be found in the laboratory test directory. The normal values are based on the following source: Dehydroepiandrosterone sulfate (DHEA S) [package insert V 17.0 [place] Citizen]. [facility], [place], [place]: December 2012. Performed By: #### 1 5067-2, 2243-4, DHEAS, 01612-2 ####[facility] LABCLIA [id number] [facility] [id number] [place] [address] [place] ECG COMPLETEon 08-25-2023 ECG COMPLETE Ventricular Rate : 7 0 BPM Atrial Rate : 70 BPM P-R Interval : 136 ms QRS Duration : 70 ms Q-T Interval : 404 ms QTC Calculation(Bazett) : 436 ms Calculated R Weott : 76 degrees Calculated T Weott : 56 degrees NORMAL SINUS RHYTHM NORMAL ECG Confirmed by MIRNA MICHAEL MD ([id number]) on 08/31/2023 8:27:21 PM NAME : SHEYLA LEA PID : [id number] : 2005 Gender : Female Race : ORD : [id number] Procedure Date : Aug 25 2023 08:09:41 Edit Date : Aug 31 2023 20:27:23 Diagnosis: NORMAL SINUS RHYTHM NORMAL ECG Confirmed by MIRNA MICHAEL MD ([id number]) on 08/31/2023 8:27:21 PM Test Reason : Location : 119 : A17 Overread By : MIRNA MICHAEL MD Edited By : MIRNA MICHAEL MD Referred By : LATASHA BOBO Acquired by : DARRIAN CONTRERAS Normal [facility] ESTRADIOL-17B BLDon 08-25-19 E2 [Mass/Vol] 39 pg/mL [facility] Estradiol SerPl-mCncon 08-24 E2 [Mass/Vol] 39 pg/mL Normal [facility] Comment on above: Order Comment: Speci men Type: BLOOD SPECIMENOrdering Facility: [facility] Address: [address] [place] [address] Result Comment: This test is not suitable [...] 3243 pg/mL Second trimester : 1561 to 21882 pg/mL Third trimester : 8285 to >85775 pg/mL Post-menopausal Estradiol reference range: < 41 pg/mL Reference: 1. Estradiol - E2 (Estradiol III) [package insert V 3.0 [place] Citizen]. [facility], [place], [place], October 2015. Performed By: #### 1 5067-2, 2243-4, DHEAS, 42978-0 ####[facility] LABCLIA [id number] [address] [place] FSH BLDon 08-25-2023 Follitropin Qn 6.2 m[IU]/mL See comment mIU/mL [facility] FSH SerPl-aCncon 08-25-2023 Follitropin Qn 6.2 m[IU]/mL Normal See comment [facility] Comment on above: Order Comment: Speci men Type: BLOOD SPECIMENOrdering Facility: [facility] Address: [address] [place] [address] Result Comment: Refe rence range: Follicular: 3.5-12.5 mIU/mL Ovulation: 4.7-21.5 mIU/mL Luteal: 1.7-7.7 mIU/mL Postmenopausal: 25.8-134.8 mIU/mL Performed By: #### 1 5067-2, 2243-4, DHEAS, 32302-4 ####[facility] LABCLIA [id number] [address] [place] HCG QUANTITATIVEon HCG.beta subunit Qn <5.0 mIU/mL [facility] HISTORY PHYSICALon HISTORY PHYSICAL HNO ID: [id number] Author: JOHN HMUPHREY PA-C Service: ? Author Type: Physician Sane Rn Type: H&P Filed: 08/26/2023 10:08 Note Text: [...] CAD, chest pain, CHF, DVT/PE, hypertension, recent [place], murmur/valvular heart disease and PVD. GI: Positive [...] Maternal Gra (more content not included)... Normal [facility] HYDROXYPROGESTERONE-17on 17-HYDROXYPROGEST ERONE QUANTITATIVE BY HPLC-MS/MS, SERUM OR PLASMA 29.23 ng/dL Normal <=206.00 [facility] Comment on above: Order Comment: Speci men Type: BLOOD SPECIMENOrdering Facility: [facility] Address: [address] [place] [address] Result Comment: INTERPRETIVE INFORMATION for 17-Hydroxyprogesterone in females: Follicular 15 to 70 ng/dL Luteal 35 to 290 ng/dL REFERENCE INTERVAL: 17-Hydroxyprogesterone Qnt, HPLC-MS/MS Access complete set of age- and/or gender-specific reference intervals for this test in the [facility] Test Directory (CaseReader). This test was developed and its performance characteristics determined by [employer]. It has not been cleared or approved by the US Food and Drug Administration. This test was performed in a CLIA certified laboratory and is intended for clinical purposes. Performed By: [facility] [address] [place] [address] Emergency Department Coordinator: Jaden Fonseca MD, PhD CLIA Number: [id number] Performed By: #### H PROG ####[facility] LABORATORIESCLIA [id number] [place] [address] LH SerPl-aCncon 08-25-2023 Lutropin Qn 8.8 m[IU]/mL Normal See comment [facility] Comment on above: Order Comment: Speci men Type: BLOOD SPECIMENOrdering Facility: [facility] Address: [address] [place] [address] Result Comment: Refe rence range: Follicular: 2.4-12.6 mIU/mL Midcycle: 14.0-95.6 mIU/mL Luteal: 1.0-11.4 mIU/mL [place]: 7.7-58.5 mIU/mL Performed By: #### 2 842-3, 25719-4 ####[facility] LABCLIA [id number] [facility] [id number] [place] [address] [place] LUTEINIZING HORMONEon 2023 Lutropin Qn 8.8 m[IU]/mL See comment mIU/mL [facility] PROLACTIN BLDon 08-25-2023 Prolactin [Mass/Vol] 8.6 ng/mL 4.5 - 26.8 ng/mL [facility] Prolactin SerPl-mCncon 08-24 Prolactin [Mass/Vol] 8.6 ng/mL Normal 4.5-26.8 [facility] Comment on above: Order Comment: Speci men Type: BLOOD SPECIMENOrdering Facility: [facility] Address: [address] [address] Result Comment: Prol actin test is performed using the [facility] Electrochemiluminescence Immunoassay method. Results obtained with different methods or kits cannot be used interchangeably. Performed By: #### 2 842-3, 16135-3 ####[facility] LABCLIA [id number] [facility] [id number] OF [facility] TESTOSTERONE, FREE AND TOTAL on 08-25-2023 TESTOSTERONE, FREE, S 1.45 ng/dL High <0.13-1.08 [facility] Comment on above: Order Comment: Speci men Type: BLOOD SPECIMENOrdering Facility: [facility] Address: [address] [place] [address] Result Comment: ADDITIONAL INFORMATION This test was developed and its performance characteristics determined by [facility] in a manner consistent with CLIA requirements. This test has not been cleared or approved by the U.S. Food and Drug Administration. Performed By: #### T FTEST ####[facility] LABCLIA [id number] [place] [address] TESTOSTERONE, TOTAL, S 56 ng/dL Normal 8-60 [facility] Comment on above: Order Comment: Speci men Type: BLOOD SPECIMENOrdering Facility: [facility] Address: [address] [place] [address] Result Comment: ADDITIONAL INFORMATION Testing performed by Liquid Chromatography-Tandem Mass Spectrometry (LC-MS/MS). This test was developed and its performance characteristics determined by [facility] in a manner consistent with CLIA requirements. This test has not been cleared or approved by the U.S. Food and Drug Administration. Test Performed by: [facility] [address] [place] [address] Shape Hand: Yan Echols M.D. Ph.D.; CLIA# [id number] Performed By: #### T FTEST ####[facility] REFER[facility] LABCLIA [id number] [place] [address] Alexsander 07-13-2023 CNPN Telephone (HNQ) JAYLONSHEYLA DOCKERY ([id number]) 3 F Date Time Provider Department 07/13/23 LATASHA BOBO HNQ During your visit today, we recorded the following information about you: MccormickHenrietta 07/13/2023 3:13 PM Signed Pt calling for [...] to consider it. She will see her sr account executive which is a new sr account executive in August and then if still interested in pursuing thyroidectomy will reach out to me. In the meantime we can hold a surgical date. Latasha Bobo MD Allergies As of Date: 07/13/2023 (No Known Allergies) Date Reviewed: 04/23/2023 Reviewed by: Ayesha Maddox RN - Fully Assessed Reason for Visit: Results [95] Primary Visit Diagnosis:Thyroiditis [E06.9] Order(s):SURGICAL REQUEST - ELECTIVE (12/2019) [0620684] Order #: [id number]: 1 CBC [SQCBC] Order #: [id number] FUTURE BASIC METABOLIC PNL [SQBMP] Order #: [id number] FUTURE ECG COMPLETE [ECG01] Order #: [id number] FUTURE Prescriptions as of 08/02/2023 - omeprazole [...] Status:Closed by LATASHA BOBO on 08/02/23 Normal [facility] T4 Free SerPl-Se[place]our 024 Free T4 [Mass/Vol] 1.2 ng/dL Normal 0.9-1.7 [facility] Comment on above: Order Comment: Speci men Type: BLOOD SPECIMENOrdering Facility: [facility] Address: [address] [place] [address] [place] [address] Performed By: #### 3 016-3, 3024-7 ####[facility] LABCLIA [id number] [place] [address] [place] THYROGLOBULIN ABon Thyroglobulin Ab Qn 91.0 [IU]/mL High <4.0 [facility] Comment on above: Order Comment: Specsiomara abernathy Type: BLOOD SPECIMENOrdering Facility: [facility] Address: [address] [place] [address] Result Comment: The Thyroglobulin Antibody test was performed using the [employer] DXI paramagnetic particle chemiluminescent immunoassay method. Results obtained with different assay methods or kits cannot be used interchangeably. Performed By: #### T EVARISTO ####[facility] LABCLIA [id number] [address] [place] THYROID PEROXIDASE ANTIBODY BLOODon 07-09-2023 TPO Ab Qn 249.5 [IU]/mL High <5.6 [facility] Comment on above: Order Comment: Harriet abernathy Type: BLOOD SPECIMENOrdering Facility: [facility] Address: [address] [place] [address] Result Comment: Thyr oid Peroxidase Antibody test is used as an aid in diagnosis of autoimmune thyroid disease. Clinical correlation is required. Performed By: #### M ICRO ####[facility] LABCLIA [id number] [place] [address] [place] TSH SerPl-aCncon 07-09-2023 TSH Qn 2.600 m[IU]/L Normal 0.510-4.300 [facility] Comment on above: Order Comment: Harriet abernathy Type: BLOOD SPECIMENOrdering Facility: [facility] Address: [address] [place] [address] Result Comment: If t he patient is , TSH reference range varies by gestational period: First Trimester (weeks 9-12): 0.180-2.990 mIU/L Second Trimester: 0.110-3.980 mIU/L Third Trimester: 0.480-4.710 mIU/L Jose Fisher et al. A Practical Approach for the Verifications and Determination of Site- and Trimester-Specific Reference Intervals for Thyroid Function tests in . Thyroid, 2019:29:3:412-420. Loc E, et al. 2017 Guidelines of the [place] Thyroid Association for the Diagnosis and Management of Thyroid Disease during and the . Thyroid, 2017:27:3:315-389. Reference ranges were not locally established for this patient's age group. The normal values are based on the following source: Jayla W, Tim V. Reference Ranges for Adults and Children: Pre-analytical Considerations. [facility] Performed By: #### 3 016-3, 3024-7 ####[facility] LABCLIA [id number] [address] OF [facility] CNOVon 04-23-2023 CNOV Office Visit (OTOLMN ) SHEYLA LEA ([id number]) 3 F Date Time Provider Department 04/23/23 [...] mobility normal Neck Ultrasound: 05/17/2023 Ultrasound Machine: [employer] Transducer: Linear 11 MHz Regions examined: Thyroid [...] [E04.1] Order(s):US THYROID/PARATHYROID (POC) HNI USE ONLY? [3226484] Order #: [id number]. #:[id number]: 1 TSH BLD [SQTSH] Order #: [id number] FUTURE T4 FREE/FREE THYROX [SQFT4] Order #: [id number] FUTURE THYROID PEROXIDASE ANTIBODY BLOOD [SQMICRO] Order #: [id number] (more content not included)... Normal [facility] Coding Summaryon 02-05-2023 Coding Summary HTMLBase 64 DhgsjjufSYt9eVc+PGhlYWQ+PE1 NNDJvA78wfRVfhJ0uR6OKOGnBWc mrLAUHEJjFJbGbzzUhVF0fbOWeI XJu IC8+KW9uDWLiUbinnFJgd8H4vDY 1Q96fyk3pPJfmpCR3IKMqZmJnyn zok9uztIp1OIuoCehvKaLg JFBvsH55XFB7aI96Ga73pOUfnCF kn9fmxSn8EhWxENEjSDV6jMnaFK qsw6LtXTAkG34muUCei6S6 LZXcqAnofCAuNvNecZU7hV0uBPh pqcuqb1cgogwuYfl7qn53sQYpw7 S5jYD5M2RstcE7HTSfaVCt IrtlaYUQrP3ttjutv1schwnlFkE nRBQjXRv9JYj9RZOgbQchNqPiRW 89NLX4FZTistHbH4IzTUVj gTuqKgA6o1H3Lg6ZT8YLBczoF9N NTUFSWTwvdGQ+ZH03rs52X7OeRc sfExd1FKBvPEN1xFF9wM0q WNVlKDzqq4S5xJS7B2JehvWogc4 gu5piDPNxCNqvN52ssRBaw6M2FC MufVG0MDYtcKzmCjEylC22 Oyc+IVOrcBbyn0AsYexiu4mck4h dnRu7DearZFIpxuIivMifMVJ8l6 RzWd5vYWJesAF8hIF7xU4b AwNjTvF8CYdwH586NnUmiIRgUzy cR90cT2MpxKC+TDLyNwh7SWMubA yzGL6vK3DsUOCqxjjgxDFa kXrpFK8uVYStyrwcNAPxuF8tSRI gK5t5FhQeTiT1AAglZ9GrKQHyju ayZj74wL1cKgKlLsB1OMlr M2KvbiR3QOOamFZxMPtwHXZ7G42 ip6H6KBZoTYHgCFT6oBZ9bL4pcJ lnbjogbGVmdDsgdmVydGlj NYimNZpfL342ICLoaZwcYbHpKFl uZyBEYXRlOiAgMDkvMjIvMjAyMz wvdGQ+ZMPsHWC2kCekNNUz aHYdYXdsYb9hzViscRoxPU5oQYB cfgfjOVYnlS2xOWYydPQocTdkQD 3oUYGtondwp557DwLwOIA1 FKGwzDZeA6AvxL7lBgXqFUZfQZF pL1LlzWTpJTccY321SOiwKoD5PU NhlnHiD9FiCWJlqJzoDyW4 r7V1Xy5Te2UjvwxsQ6ZwdSFxDzM nDovmLMg0O1ZeEkkfaUA+PC90YW GjFX50IEt0MHB3oPzwHFoa PLTkZ9OqlB5sJgJjZBHuJCSfRla +PHRhYmxlIHdpZHRoPScxMDAlJy IfsJodSC0yUd5dSBFfORXa oZmpdYWtYcIhv2gfINEbAXexII5 kiPdqF0AeaHY3LWBah4u9Kd74B2 3mI5ChfWL+ZUCojMD1gZR8 sO8hQaVnSmE2CJgnY863JiYlfSA dWiugy3snn1rwmNu9FnN2MONyks PvwRgsOCA8s5FyYr24L57y IHdpZHRoPSIxNSUiIHZhbGlnbj0 ycC1tXu9+ZLAiaYY8yEB2hP1rEk DkVdY4GSojW932IoTffGIq Iwnsv5vhx7mayZn5CtJkFYCndkG iqQjsBNO8q2FdEa04C1NgxErvp6 XtEml2nr30dTIjg7D7qID5 I0ViRGEmdnycdWZkqNngRZ2uHLX bilevXQOvdO7oXCAnQ2d5UhOsRq S8ATqxY9LqteY6ZLIikIUa SITovIDRmL7gkwxhz7ttxuqwWuX nCMIqFRz0HHg7HSTznXhiHnHoMS P8VhR9UZC6iAMmrN7cdBtq rbsogZ3kVcc+HYF0ePEtqUKMIF4 lOjwvdGQ+TZClROB5dHarWJsgJF AigX4jZOGsB2k1CyMiQwK0 VRzsY2AppyQ2MKYlzTFhKWCutBX TcQ5twmnuu1ppcfglNoSuKUHrPS s3MZs7PXHmrOivIsBkFMW6 LiZ9XWX8qOVpmY5hcYrmynhfaK0 wOyc+DqazdCfuXYD2NTb2D8DzOp j3VLOlmCelGR7ljLHsGQax Ql9xjDvpnSdpCN6bYYLnniwtz28 5DwVum3hgPWFalGBkLQwyORU8G2 0xb7I6XDDjBRIhIBY7bUM6 fA1wgXolzkstwMOwvPmlthMqaEm cXYgzSBouC431MCAzqPzoWgIuAE t4H2SsFmj2NEUesQgfRS0h tCFqEQzpWn7sjYcipZatGF4aTIL tcfatr536WkVyk6ysFWIacUTqWG psRVQ4X74rz3C3FKIgVZIx VOC6tZS8gL2jbZhmvwdhnZJahRt ysbCikMglURwhMJwvW834QQYjfX duCgOkzJy0U0OiNlc8BDCy fLgwZJ9ifDJoZVnfNc5exFcdjEq nIJ1uOURpcoowg933RxLst6rjEP HhkOGtLMqeUND2I90uh0E1 LMPeYSXgKTG2aJO2yA6kdQzhlru gbGVmdDsgdmVydGljYWwtYWxpZ2 46IHRvcDsnPlBhdGllbnQg PLeoCMo4N0ZjNvuraYN+QF03ALS cSY26gZFzuERfj2pzmEk0XeZjJS ZpNNT1zJbgYTuzj4XcTWEm X93ggICsv4H0ERLnjKgnnJUdVxZ izZG4qL9mTBmhxzrsg4hffhztEl qaa9vatk46hG94A92oYXby UAUwQYGzRQQsOSUouOulvl3bgF9 wIi8+OEJodKW2kJM5kS2xKLPpDd X1GQqkC619WfUkwBVrMdgx p0mva5hzzFq0ZfL2SUDepyXjuNq nXMM3z7JrKn50I84hSAfeQCUvGK TdFGPbVSYchTfnvn7loR1r Ii8+LONeeDQ9jHC9rZ5lLyQoVcI 5RKqmM088QpQxoERzEnbzA53gS5 JvdXA+AXErSjv7IKBhdEcm FJ4vbTMwQUyfUj7iWBS2NnQyVhY jNUbtO8KkQSLxekopapdedTA9LO ZtUXTtcD27Eb7zcGutACEu sRJHdH0rkfslj5zgxjihFfYfWQQ nMEp8IHx4XSAizMecMaBkPEA3Ss L8SQA6mQJgrO8ggFwykgkw vW6pF5JfUSOraaudHm33gM8tQhQ eLlT0VExqOgs+AN1OUCOEXCErLV tMEv1POHnLKZBQRTkYQL2R HvxLJY68KR88nMSer7S5kWO9B0B dRDSgwekvjyijeVF0VDBgQUHnpB 81oQMiYHzvVd3xp9M8v071 FXJuLKWkhM61Ey3anWipDSZamBE UyG7wejrjg6ovhojrEpAyKQShJE h1AUu1YSNaiVpjOfJoDPM3 SoX2YJU1iPWqaH8ghUwdoyfzcM6 wOyc+MDIvMDkvMjAwNTwvdGQ+PH MqIJS2jUhgLVirQBKvsH2s BKLgI3g7MfJuVqQ0ODzxB8ErRWK uegruIl60zC7rAdKtCoL4NSzbI5 RiyvR5OPTfmNRkQIpqLJZ7 V57vm8E2NLRcJGZuSOC7nPR5hL5 hbGlnbjogbGVmdDsgdmVydGljYW gpUIycT491ODRygSpeHeK9 ZIkzPGBjBA01OK98dAQci3D1hWY 9D5SbEXDaibdkctmrwQP1VKMkNC CpbY69wLKkVVwvKb7rk9V7 u465SFBnGTKcqD71Dm4jyIxjBOC wbQCVuY8tznsjy7mwhdyrHwSnZD DlALm8LRl9PFQxzGhpYnNn JRQ5JtA1YNT3iMIcpY4anMwjxqn amB4wFuw+SqHRPZlRJR49SS56kP Rqr8Q0tZN4X7WoTIXhzjsy jxpsjAU2CUEeSNOiwA79jWOyLBc rYm4yz6W3y191BURaCSOwoG58Ox 3lyYxxJPCmjIQFhV3tpvsf s7ectapyChZiVGJeLVx3DMk1YOL kyLxjIsRxLDC8RzZ4GFS5fLPvdJ 7nzRnsqxbrbS5pWfz+T1A8 D9QtHevcuAS+WX30FSKlEC50bOE pqWAqz3encNc8VyWfOWQoLWX4dF lxWNosp8DsBWXvR72kmEGj l5T5DTGgtQpzoWKpHkOksKT6aN7 hGVkzzsnjb1jeuryjGmlat8chbk 76fB80P43eZFowRCKrHPMp NJWuVWKsxOykjm3iaD3mAv5+PGN bwIX8xXZ0zR8jUfVnGvH5JKxwZ5 46FcImuWQxHatxv9bau1cm aHm3SzDwGSJrbwUnqFtmBPM5a8E hXg18Z22zDBexZAOmNKDjUPFhOU UskWswau5dgM3nQb8+PC9j l3fvin59bF46uSV+MUVeUXZ1fJv xFBlrBYAytP8fOFoaVfW7XGWiKc BrrG17iZGsYHinYl3loXwf eRanDU1kFKMwhhcgl485ImVzl1d xPDIoqIEjWOzpGBN0V77im0A0SY OvPKTsHQZ4gOE5kY6joQke bjogbGVmdDsgdmVydGljYWwtYWx gT829XAQurKsgKhWclKSkQ2shre CGKN8bDnzuzUB+PHRkIHN0 rBthODfeYQVpuD0rAKRfY0l2AnD sQxJ4MHtcX1EoqvP7FJVjkFIlEC HqsPKPoS0xuscst0mfrljn ZoKjOUFkBLx5HDj8ZTYkqUbiYiO cQID8NtC8QRY4hFGgrX5evIcclq ssyS6nJav+RklOOjwvdGQ+ PSBvHEH6qAzpIIgvRAPxgL4jFJV vV3w0FaUhVnP8KHctC4QmesL4TH OlzAFrTAEpeSZMuM8dspwl v1dcbbruKcEnATExTBs9TZk1LXL sgZbyUmNlDIJ7EaQ7HQR5mGRhtU 3kyGojboexaV3iLay+TVJO OjwvdGQ+QWBmVBT5jBvuCJyjJSL ngP9cYCGmX7v3JwIhXmR2JGwvS3 UlltS2JYBdfVGzKVSoxMWK jL9czbbfk2rqzhohWgZdQKWoVPr 8NCn3ZWRojCarZgVaRCY8WfT3QT G7uZUlzF1kmWbhneoqmX5m Oyc+ZLB1XIX8PO91DE16W1JjByy vdGFibGU+PHRhYmxlIHdpZHRoPS roLSLcTuNrzOgxYF9ePf6i ZGV (more content not included)... Normal [facility] ED Clinical Summaryon 2022 ED Clinical Summary [facility] ? Urgent Care [address] [place] [address] Clinical Summary PERSON INFORMATION Name: SHEYLA LEA Age: 17 Years Sex: FEMALE : 2005 MRN: Acct#: Visit Reason: General medical; HEADACHE, RUNNY NOSE Arrival: 01/27/2023 17:33:58 Discharge: 01/27/2023 19:00:00 LOS: 000 01:27 Check In: 01/27/2023 17:33:58 Checkout: 01/27/2023 19:00:00 Address: [address] [place], [place] [id number] PCP: Aime Goff DO PROVIDER INFORMATION Provider Role Assigned Unassigned Zara Fleming [employer]IVE [employer]ER Nurse 01/27/2023 17:38:07 Chetna Rodriguez PA-C ED [...] Follow-Up: With: Address: When: Aime Goff DO [address] [place], [place] [id number] DIAGNOSIS: 1:Viral upper respiratory illness Patient Understands: Comment: [facility] ED Note-Nursingon 01-27-2023 ED Note-Nursing covid back at time o f discharge. aware of results [facility] ED Patient Summaryon 023 ED Patient Summary [facility] ? Urgent Care [address] [place] [address] PATIENT DISCHARGE INSTRUCTIONS Patient Information Name: SHEYLA LEA Age: 17 Years Date of : 2005 Reason For Visit: General medical; HEADACHE, RUNNY NOSE Arrival Time: 01/27/2023 17:33:58 Primary Care Physician: Aime Goff DO Attending Physician: Chetna Rodriguez PA-C Comment: Patient Education With: Address: When: Aime Goff DO [address] [place] [address] Viral Respiratory Infection A respiratory infection is [...] home: Managing pain and congestion ? Take bbni-egw-chguayp and prescription medicines only as told by [...] water are not available, use alcohol-based hand installation coordinator. ? Cover your mouth when you cough. [...] respiratory system, suc (more content not included)... [facility] Coding Summaryon 01-20-2023 Coding Summary HTMLBase 64 PwcxvqkjUWu7nSj+PGhlYWQ+PE1 RAZExE10bxTJfaZ8nU1ADJBwVWl cyJRQCXMoIYkTsasCsAX1crVHgZ XJu IC8+YY0mBEIsEzqfoJWah1F0bIW 3N64suq7uIEonsHI0OBAmIpWlmd gte1ngtVm7WVdxXmqeIkOg HTUwzY19FRC6xE56Uk60uCCaeSM va2kyvTz1KyOoAYGnEPZ1nAlyEI yfy4XgAVYuG58idTMeq0S7 WVZqnYtyvTCjKaPddUI7fU7vZFp uqtqwg9vqbohdFug3xv58pZRfm6 X6qFF2S8JktmI8ANSttVRy VkcplSRQsN0khlovx2ztrkkxYtU eJUHyNOb6YWz4YCOooNwaVqVmES 72LUW2YOFssoGaR2KhHUQt fWviQbK1m8J6Xh6PP3OBRadqG6V NTUFSWTwvdGQ+OI92zz78H4BlZa tuFpo5WMHvGSL1lZO6sQ5s FNWgMVwrl0Q5uDJ6T8WtamGbqe4 bm2tjTHToBIjuD29yvQXtx5Q0GN ZmvWE0NSFswClwPnDwvZ61 Oyc+QOWejSgup1VaDualx0vrx5x xiUe4MaowLHZhiwLkaSlxBJO5y0 LnTt8bMQZbaBD4tDC5cV8b PwXbSwS1XQroO374VqOqhATkOqh fU59eY1HxcEF+ZZEqJvi0JNSxzC aaQY0gF9LxULRyxkawcNJm mBkoXM4kAXZrfxjwKKAhaM7vPVD jC6e3LuAnTwN4ZUmlW7WuZUVhvi erOl62qU8dWgOtMrK4KMec M5TrciW9VUNgdAPoDZtbQXI8X50 vr0G4AYFaJQEpKSF0kDH6vG5wpD lnbjogbGVmdDsgdmVydGlj AFanCClyK333WEQlsHskCsLrCJo uZyBEYXRlOiAgMDkvMDYvMjAyMz wvdGQ+PEItXMG4pMdfDSCg lWBiBAxeTe8foFejaJqlJN1fPLI ttacdGZXjtR6uDORidONpvQyvHB 0sIKFtzzuhn462BlDnWUL6 UBQpoATiU3ZcaD5pRgQmOUCbZMV tB9UviUTfXBnyI893KYhmWuQ3FI VcofHzR2WeXGEkaBbgIxO1 v9X2Kp8Kd6CtrdjfU3PykASwYaU yGdjzJPr6Q8UzSsbsdRU+PC90YW EeDU92VEq8ZDQ9wDdlMXjw MHGiH5JelM2sKqKfXGViNFCjDnr +PHRhYmxlIHdpZHRoPScxMDAlJy DloPstVR9uQe3hDZOaWCAf qJueeYJbPrOtn9crELKfFNjyPI4 oaRbsL1CzgQW3IRMyq5r0Ox82I4 5eC1IxdVM+BFCwdKV9zAX0 yL0yWgPlXjD2QBfvY906ClVnuTA yWwsvj7poa9vnmQh4ZiL8QCGyph LccLjvMGE3x3HjKa72E90i IHdpZHRoPSIxNSUiIHZhbGlnbj0 oaZ3eUl5+LEPvoUU5fMM3aF9zMa XaDmH1JWqsM302VbBlrYUt Zyisk3cak2fbwNc7XaLzRJPrrnI lzSocERP2u7LpKr08C1BpuEqqo0 ReIho3ex12yAPgo0D0cSS7 E3YtPQMgnynvtHQisTzvIE8zFJQ cssldHCPyzT2yVTZoO7k8YbJuCl K2SJpeF5BpgcY4COCfsNNl NCTsgQSGhF6fflpwu1svogtaNpR gVPOtCRx4BXq1ZIMbcCpcOiAuZM T0AzV9ZGR9mZCmeL6nlLhr delolV4qNcm+TFJ1xMCyaHQPFU1 lOjwvdGQ+TARcWAT2gZvmSTqnXP TdoP3fFXPvF4o1VsZyNlT9 PTbfM7OcjdY6FMFykCCrMXKlhIL WiH7nvcuyz6gxkqyhMtQfAOAdTM g3PTk7HVGnvSecBcOpLHM9 WrZ2LVJ1wBQbbT3zbKazfdzzbG3 wOyc+LxzubUnlDFR3ESq6H3KeUv d8SNWglUylBI8qgTDsJFlb Ln9euDlfwOpuFM2mYUXfswqng37 6LsCrm5beQNEbmGUgPMypENC7W4 2bs0N8SKVpZQVvUWS4eTC2 vM1uuGckgvskjNCobDnsgvRqeZm rEShbJAtbU946ZWFcgJzuRaEaHX s7C1PfQna2RBLatHfaIT1b lRJvHVuxQe5ftXwbmYzgEE5vLBI kvrada637TiUtf7umCQFlbZOiLD ieYYL3E74cr1K4IBAcWPQd EAT4cCU8fG7zpTbsjouwvGSpgGv iraPheQahZDjwJTltQ988HTHurJ wwNcQymZr4L2HlLwy4TFKr oWnnHS8kxLZlYAhyOq3fcNxldCd mKO3uIWCfoptwh113VfEpd3xtTO AiiOUqPKqzLLK2A05ij7E8 EDSsTBQaFSR7gBQ9kG5aeCiqbqz gbGVmdDsgdmVydGljYWwtYWxpZ2 46IHRvcDsnPlBhdGllbnQg JMlkPDj1C6QdGmtlhFA+YY25SCV dNG75pYTxuRIrc0sxhEv6IjEyHJ XeDUR0yNeyMFwjx7EkSANg Y56ahKBqm3F0XZUbuEbzwQPyEmO mcUQ2tM2hIQymelbyb8igdhtfQs unz5tfbq03tL92M13fOQen RHRjTMCgKDHlORWdwWvyzo3qwF3 wIi8+YDHkzYH9iGF0nI3gMEJpIq S3TDkwG293TnJmyUQpMuqb x8ium3nlmOi2RdT9XPKhqdRieEk hSWZ2l3EuGg96S92kYMhbORWnNI LsMXKtWTVahMneyk0qbR5p Ii8+YKZbgHI5xAO2gE9uBuGtRoL 9IUnsL436JfNkcBDeCvemE31lL8 JvdXA+ZXYhJiy5BHTqnDag KJ7etTDdRFstOk9dGAA9AbFhJrR jOVmbV2QlRLUzkcugoizwwOX9MX BkITVtdT48Vn2tuOjtCQOg aUCBzD1lrunyq2jgrqlqGlXqSZP rXBo2CQb1PWOttDjkIrIfADZ9Lp R8GVT3bCIhvC2jzEayxlux bG4jO0ZvMJOughtoTd52fQ1rYbI nOaM3YZzwAzy+HV4HSCXXUTQbRG oLYz0GQNiDDBDRLUqESN0K BiyLHE60NW52sVWmp9W3pIH5X7L xOTQqqxwnfwveaNY9PAGoISDonR 83vWCjODejCc3dl7S5b816 JJUmUYZulY84Vt8cyNzgHMKdmFT CvL5uqffpw9gwervoBbKqVPZzUT a1FNg7QNIifFisByTtCYZ2 GpH4ZZL0hBThsS6qtYnkzvzsaO0 wOyc+MDIvMDkvMjAwNTwvdGQ+PH GgBHC3hVnuLToeMOVzsA3f IUOvU7t7EiCdQzG9QLtaW2JyRYY huiweUc34uP5qYjNwRmA7PBtrJ2 TqtgR3HPQhoDGcUAuhJZC1 P21aa5V4FBNzQCNmHZB6rFO7zM5 hbGlnbjogbGVmdDsgdmVydGljYW xdCDyoL590TBJeyRzjLcK8 UWuhAMIdOW13VE92hOExy4C9wLE 6X0BvNEQvpljcqwkaqIB3UYKqPW XzxN14tTFsOHepYy5ub9V2 s319OJIaXBSutB19Kk2oaIdxEAB hpMISfD6uxtcxj0tjgjfsIcDtIK YbYIw5HHu9RMMgxKmmVaLs HLO3PqS4VNM5nJAoaJ2tfFigxwk qjH0sMmv+OkMSJUrYNP75AL33iV Gwk7Q8dNU3G3UhTXStktgi reqjpGQ6QJBxFFMnqX84hCIzRMu cJg3yz8C9n945PYOxQNPaqA48Lm 5ruHbiCRCdcINCxN8srrap d3lqptgaFsXxWXKaZZv9KTf5KAH xbKeeKcTdGVU8GvL3TMF2oBWqiL 1hlRlvozlurM1yRpr+RW1l kyiizjN1QE80PX75Y0PhCshjvOG ibGU+PHRhYmxlIHdpZHRoPScxMD UsBgLheKwlKS6rSa1tNMOf RPYmnNpcrAXhHtEhx0djEJOuTIg tCY6ozWtvJ2ThtOM1RGLub5q2Pl 01K26iS9PscPI+PGNvbCB3 aMI2eG3qTpZfZeE9KCpkR714UhI mdDJqYiqyz6eay1jrzWe5EvRhRF LehhPdsYncYHD2m5RaRi65 Z26iYFnpBTNdBXSyNOAeHCNzmDb rps2fkD5sDx8+FQXpdCB4sXH9fR 0eAeUfEfO7XSjtY251FoDz fCNrOzuyA29xB3HipRU+PHRyPjx 9SBVzzGhuBF3hdYVaWPmrNk5kPN G3GdTpPhQeNMxkE6JgIDZo wbtuchrntWR0LBTpDTNzkV40Xh7 izQwkOg4hCNAgJWI6LGXdoFGuX8 AinV4mBjQhRCPsKYMnT0Us rIKjVOhaF754SKhpMnN4PASgyqF pD1WhGDOloYrrJrU5h2S3Sc3ZeY knoWBnOD2nFtPiVZq6K5Rr Qii5OEMrbNcoIA0bhSRnYOnrMb1 pyOebyTxuBM2mOEBhuwtra210Xl Vey2qjWNYckLDkNSfxDCQ8 Y86iq5B3FEWnRFZqOYC6nPF3kL8 hbGlnbjogbGVmdDsgdmVydGljYW zlIRutZ830TELjqSnbIbOV Ksh0A1EtWdk2JYNsbZijPF9rmFJ bHAtqFs7ydMnvxLurUJ6cVLZita eha030EsKhv3cvDXNwoQTc LOlxJLP8N10yv4K2KMTyPTJuLGQ 7zJA3gN9skIosqmfmjNSxlFpdeo MxhMnsJShaDDoqS542MEUw oOpgMw9RYvh9C4MhLce6NLCvtHs ePM0hjMJuSCcyAr2htZgjeBucBQ 8tAHRsaidsr533ZgZkx1ib OAXxtEWyOUmoNSR6B26gx3B9OML oYPNmDBF0gFK9iV8ggBvpvbwhtY VmdDsgdmVydGljYWwtYWxp J908PUVkcSdwEvAofYHfHexxiEO +OB87xo46W9CjUznaOpt1BXMbVK H8nAX6mR2jODIaBMsbk5M2 [facility] (more content not included)... Normal [facility] C Urineon 01-08-2023 C Urine Urine Culture ordere d as a result of parameters set on specific urine dip and urine microsopic results. Mixed skin, or urogenital mar. Clinically insignificant Normal [facility] Comment on above: Performed By: #### 5 [id number], [id number], [id number], [id number] ####[facility] (DEFAULT)[address] [place] [address] .Auto Diff 1on 01-06-2023 Auto [place] % 9 % Normal 12 [facility] Comment on above: Performed By: #### 1 [id number], 9990839, [id number], [id number], [id number], [id number] ####[facility] (DEFAULT)[address] [place] [address] Baso Abs# 0.1 x10 Normal 0.0-0.2 [facility] Comment on above: Performed By: #### 1 6552392, 7621158, 2365623761, 1416340330, 8581833415, [id number] ####[facility] (DEFAULT)[address] [place] [address]186 Basophils/100 WBC (Bld) 1.0 % Normal 0.2-2.0 [facility] Comment on above: Performed By: #### 1 9412902, 4894373, 0138465619, 6943546441, [id number], [id number] ####[facility] (DEFAULT)[address] [place] [address] 32894 Eos Abs# 0.1 x10 Normal 0.0-0.4 [facility] Comment on above: Performed By: #### 1 7685697, 6148787, 2535447786, 3080448341, 9566576562, [id number] ####[facility] (DEFAULT)[address] [place] [address] 70756 Eosinophils/100 WBC (Bld) 2.6 % Normal 0.9-4.0 [facility] Comment on above: Performed By: #### 1 9827355, 1698995, 6712936345, 7906419527, 2967903529, [id number] ####[facility] (DEFAULT)[address] [place] [address] 20465 Lymph Abs# 2.5 x10 Normal 1.3-2.9 [facility] Comment on above: Performed By: #### 1 6661624, 2495767, 2954286956, 9439777841, 8424121537, [id number] ####[facility] (DEFAULT)[address] [place] [address] 84349 Lymphocytes/100 WBC (Bld) 44 % Normal 14-48 [facility] Comment on above: Performed By: #### 1 6845019, 7645057, 4580908659, 0829142180, 2048882884, [id number] ####[facility] (DEFAULT)[address] [place] [address]49 [place] Abs# 0.5 x10 Normal 0.0-0.8 [facility] Comment on above: Performed By: #### 1 7438623, 5165187, 3183550513, 4726009875, 8446072404, [id number] ####[facility] (DEFAULT)[address] [place] [address] 20808 Neut Abs# 2.5 x10 Normal 1.5-9.2 [facility] Comment on above: Performed By: #### 1 3595993, 1511388, 5162000233, 1979618603, 4656932235, [id number] ####[facility] (DEFAULT)[address] [place] [address] 99725 Neutrophils/100 WBC (Bld) 44 % Normal 44-88 [facility] Comment on above: Performed By: #### 1 8101622, 0523339, 4852370660, 3649099179, 7494423185, 6337507770 ####[facility] (DEFAULT)[address] [place], [place] [address] CBC w/ Auto Diffon 3 Erythrocyte distribution width (RBC) [Ratio] 15.2 % High 11.5-15.0 [facility] Comment on above: Performed By: #### 1 5017293, 0249421, 7862981099, 3608580647, 8137215517, 0732608612 ####[facility] (DEFAULT)[address] [place] [address] 49285 Hematocrit (Bld) [Volume fraction] 39.4 % Normal 33.7-40.4 [facility] Comment on above: Performed By: #### 1 3269344, 0982892, 3956595755, 1000940198, 3516871072, 8972062413 ####[facility] (DEFAULT)[address] [place] [address] Hemoglobin (Bld) [Mass/Vol] 13.0 g/dL Normal 11.3-15.9 [facility] Comment on above: Performed By: #### 1 2491819, 5784664, 3660837268, 0061308583, 9740148742, 8274993968 ####[facility] (DEFAULT)[address] [place] [address] 49173 Man Diff? Auto Invalid Interpretation Code [facility] Comment on above: Performed By: #### 1 6493995, 4266998, 2433849955, 5112058778, 1091109822, 5475621665 ####[facility] (DEFAULT)[address] [place] [address] 42530 MCH (RBC) [Entitic mass] 26 pg Normal 24-34 [facility] Comment on above: Performed By: #### 1 7575401, 3500269, 9592502126, 4069844777, 6742804057, 7303262942 ####[facility] (DEFAULT)[address] [place] [address] 15011 MCHC (RBC) [Mass/Vol] 33 g/dL Normal 26-37 [facility] Comment on above: Performed By: #### 1 5273671, 9819165, 1589977463, 6914366487, 1137768490, 1058729115 ####[facility] (DEFAULT)[address] [place] [address] 48505 MCV (RBC) [Entitic vol] 78 fL Low 81-100 [facility] Comment on above: Performed By: #### 1 2257638, 5451677, 1531409654, 5885149734, 1220574698, 6761138025 ####[facility] (DEFAULT)[address] [place] [address] 05262 Platelet 267 x10 Normal 138-427 [facility] Comment on above: Performed By: #### 1 3784338, 1923753, 4598279463, 3384654884, 3672895419, 3711722267 ####[facility] (DEFAULT)[address] [place] [address] 79248 Platelet mean volume (Bld) [Entitic vol] 9.1 fL Normal 6.3-10.2 [facility] Comment on above: Performed By: #### 1 5756347, 6222614, 0240121121, 8468649032, 9501258979, 0864151005 ####[facility] (DEFAULT)[address] [place] [address] 08682 RBC 5.05 x10 Normal 3.70-5.30 [facility] Comment on above: Performed By: #### 1 2261172, 5573910, 4776289334, 5859426947, 5890326930, 0212387782 ####[facility] (DEFAULT)[address] [place] [address] 04671 WBC 5.7 x10 Normal 3.5-10.5 [facility] Comment on above: Performed By: #### 1 2214205, 1249266, 2551841303, 0461984419, 9763466153, 0782879083 ####[facility] (DEFAULT)[address] [place] [address] 80167 CMP Standardon 01-06-2023 eGFR Non AA >60 Invalid Interpretation Code [facility] Comment on above: Performed By: #### 1 6378524, 5754805, 4661260274, 8262088125, 3452470553, 9979803490 ####[facility] (DEFAULT)[address] [place] [address] 20719 eGFR AA >60 Invalid Interpretation Code [facility] Comment on above: Performed By: #### 1 2303105, 2649435, 8485968747, 1263086696, 7172207037, 2575074149 ####[facility] (DEFAULT)[address] [place] [address] 18479 Albumin [Mass/Vol] 4.5 g/dL Normal 3.5-5.0 [facility] Comment on above: Performed By: #### 1 3384333, 2826842, 9072915953, 2275092010, 9765748765, 6684764442 ####[facility] (DEFAULT)[address] [place] [address] 73891 Albumin/Globulin [Mass ratio] 1.3 {ratio} Low 1.4-2.6 [facility] Comment on above: Performed By: #### 1 7314770, 9844642, 0153009934, 8396126385, 4997638410, 1893968594 ####[facility] (DEFAULT)[address] [place] [address] 35593 Alk Phos 66 IU/L Normal 32-91 [facility] Comment on above: Performed By: #### 1 0856023, 2552030, 5035006887, 2396119193, 2941902720, 7074232041 ####[facility] (DEFAULT)[address] [place] [address] 16426 ALT [Catalytic activity/Vol] 21.0 U/L Normal 8.0-29.0 [facility] Comment on above: Performed By: #### 1 7500170, 3911741, 1718442738, 9727335101, 5456525418, 9571884318 ####[facility] (DEFAULT)[address] [place] [address] 98130 Anion gap [Moles/Vol] 9.5 mmol/L Normal 5.0-19.0 [facility] Comment on above: Performed By: #### 1 2405244, 7281782, 9382726894, 0915167458, 5423736305, 4200378069 ####[facility] (DEFAULT)[address] [place] [address] 08767 AST [Catalytic activity/Vol] 20 U/L Normal 14-37 [facility] Comment on above: Performed By: #### 1 8831660, 4765126, 9778307611, 2447766424, 0812464764, 3398299234 ####[facility] (DEFAULT)[address] [place] [address] 80649 Bili Total 0.4 mg/dL Normal 0.0-2.0 [facility] Comment on above: Performed By: #### 1 8959873, 7534087, [id number], [id number], [id number], [id number] ####[facility] (DEFAULT)[address] [place] [address] 97889 Calcium [Mass/Vol] 9.0 mg/dL Normal 8.9-10.3 [facility] Comment on above: Performed By: #### 1 [id number], 6275716, [id number], [id number], [id number], [id number] ####[facility] (DEFAULT)[address] [place] [address] 14140 Chloride [Moles/Vol] 106 mmol/L Normal 101-111 [facility] Comment on above: Performed By: #### 1 [id number], 3596480, [id number], [id number], [id number], [id number] ####[facility] (DEFAULT)[address] [place] [address] 44013 CO2 [Moles/Vol] 23 mmol/L Normal 21-32 [facility] Comment on above: Performed By: #### 1 [id number], 0996067, [id number], [id number], [id number], [id number] ####[facility] (DEFAULT)[address] [place] [address] 38667 Creatinine [Mass/Vol] 0.73 mg/dL Normal 0.30-1.00 [facility] Comment on above: Performed By: #### 1 [id number], 5510922, [id number], [id number], [id number], [id number] ####[facility] (DEFAULT)[address] [place] [address] 85602 Globulin (S) [Mass/Vol] 3.3 g/dL Normal 1.5-4.3 [facility] Comment on above: Performed By: #### 1 [id number], 0067506, [id number], [id number], [id number], [id number] ####[facility] (DEFAULT)[address] [place] [address] 87848 Glucose [Mass/Vol] 95.0 mg/dL Normal 56.0-144.0 [facility] Comment on above: Performed By: #### 1 [id number], 2416094, [id number], [id number], [id number], [id number] ####[facility] (DEFAULT)[address] [place] [address] 02916 Osmolality 269 mOsm/L Invalid Interpretation Code [facility] Comment on above: Performed By: #### 1 [id number], 6976645, [id number], [id number], [id number], [id number] ####[facility] (DEFAULT)[address] [place] [address] 92802 Potassium [Moles/Vol] 3.5 mmol/L Low 3.6-5.1 [facility] Comment on above: Performed By: #### 1 [id number], 1999972, [id number], [id number], [id number], [id number] ####[facility] (DEFAULT)[address] [place] [address] 95591 Protein [Mass/Vol] 7.8 g/dL Normal 6.1-8.0 [facility] Comment on above: Performed By: #### 1 [id number], 9509751, [id number], 5706566856, [id number], [id number] ####[facility] (DEFAULT)[address] [place] [address] 77618 Sodium [Moles/Vol] 135.0 mmol/L Low 136.0-144.0 [facility] Comment on above: Performed By: #### 1 8690767, 0763944, 6939210829, [id number], [id number], [id number] ####[facility] (DEFAULT)[address] [place] [address] 49319 Urea nitrogen [Mass/Vol] 10 mg/dL Normal 01-09 [facility] Comment on above: Performed By: #### 1 4048934, 5182301, [id number], 3578092260, 7990976926, [id number] ####[facility] (DEFAULT)[address] [place] [address] 24313 Urea nitrogen/Creatini ne [Mass ratio] 13.6 mg/mg Normal 4.6-16.2 [facility] Comment on above: Performed By: #### 1 5452971, 4427037, [id number], [id number], [id number], [id number] ####[facility] (DEFAULT)[address] [place] [address] 31161 ED Clinical Summaryon 2022 ED Clinical Summary [facility] - Emergency Department [address] [place], [place] [id number] ED Clinical Summary PERSON INFORMATION Name: SHEYLA LEA Age: 17 Years Sex: FEMALE : 2005 MRN: Acct#: Visit Reason: Abdominal pain; ABD PAIN Arrival: 01/06/2023 19:25:17 Discharge: 01/06/2023 20:52:00 LOS: 000 01:27 Check In: 01/06/2023 19:25:17 Checkout:01/06/2023 20:52:00 Address: [address] [place] [address] PCP: KEVIN STOKES PROVIDER INFORMATION Provider Role Assigned Unassigned Rock PETTY, Maritza Cramer ED Nurse 01/06/2023 19:33:46 [place] [...] Home PATIENT EDUCATION INFORMATION Instructions: Constipation, Adult, Zudf-[id number]-Khvm; Abdominal Pain, Adult, Vryi-iq-Vfht; Abdominal Bloating Follow-Up: With: Address: When: KEVIN STOKES [address] [place], [place] [id number] Within 3 to 5 days DIAGNOSIS: 1:Generalized abdominal pain; 2:Constipation Patient Understands: Yes - Patient/family/caregiver verbalizes understanding of instructions given Comment: Normal [facility] ED Patient Summaryon 023 ED Patient Summary [facility] - Emergency Department [address] [place] [id number] PATIENT DISCHARGE INSTRUCTIONS Patient Information Name: SHEYLA LEA Age: 17 Years Date of : 2005 Reason For Visit: Abdominal pain; ABD PAIN Arrival Time: 01/06/2023 19:25:17 Primary Care Physician: KEVIN STOKES Attending Physician: Ean Solorzano MD Comment: Visit Diagnosis: Diagnoses This Visit Abdominal pain ([id number]) Constipation (K59.00) Generalized abdominal pain (R10.84) The Pharmacy at [facility] is open Wednesday through Wednesday from 9A [...] alcohol and/or drug addiction problems; contact the [facility] 07/12 Crisis Hotline -Text 9MCCL ia [phone]. If you received any narcotics, sedation, or [...] legal documents With: Address: When: KEVIN STOKES [address] [place] [id number] Within 3 to 5 days Medication Information: The exam and treatment you received today in the [facility] Emergency Department were for an urgent problem and are not intended as complete care. It is important for you to follow up with a doctor, nurse practitioner, or physician?s assistant professor of art for ongoing care. If your symptoms become [...] so we can reach you if necessary. [facility] Emergency Department has provided you with a complete list of medications post discharge. Please inform your kiln tester/provider of your visit and for further instruction [...] in fat and sugar, such as: ? Italian fries. ? Hamburgers. ? Cookies. ? Candy. ? Soda. ? Drink enough fluid to keep your pee (urine) pale yellow. General instructions ? Exercise regularly or as told by your doctor. Try to do 150 minutes of exercise each week. ? Go to the restroom when you feel like you need to poop. Do not hold it in. ? Take dwww-qao-syuhtom and prescription medicines only as told by your doctor. These include any fiber supplements. ? When you poop: ? Do deep breathing while relaxing your lower belly (abdomen). ? Relax your pelvic floor. The pe (more content not included)... Normal [facility] Extra Greenon 01-06-2023 Tube Collected Yes Invalid Interpretation Code [facility] Comment on above: Performed By: #### 1 [id number], [id number], [id number], [id number], [id number], [id number] ####[facility] (DEFAULT)[address] [place] [address] 39481 Test Urine U Preg Negative [facility] Comment on above: Performed By: #### 5 [id number], [id number], [id number], [id number] ####[facility] (DEFAULT)[address] [place] [address] 46810 U Preg Internal Control Pass [facility] Comment on above: Performed By: #### 5 [id number], [id number], [id number], [id number] ####[facility] (DEFAULT)[address] [place] [address] 96173 UA Ahrsc8jq 01-06-2023 UA Bacteria Trace [facility] Comment on above: Order Comment: Urina lysis Microscopic order added on by Discern Expert Rules system. Performed By: #### 5 [id number], [id number], [id number], [id number] ####[facility] (DEFAULT)[address] [place] [address] UA RBC 3-5 [facility] Comment on above: Order Comment: Urina lysis Microscopic order added on by [employer] Expert Rules system. Performed By: #### 5 [id number], [id number], [id number], [id number] ####[facility] (DEFAULT)[address] [place] [address] UA Squam Epi Few [facility] Comment on above: Order Comment: Urina lysis Microscopic order added on by Dis[employer] Expert Rules system. Performed By: #### 5 [id number], [id number], [id number], [id number] ####[facility] (DEFAULT)[address] [place] [address] UA WBC 15-20 [facility] Comment on above: Order Comment: Urina lysis Microscopic order added on by [employer] Expert Rules system. Performed By: #### 5 [id number], [id number], [id number], [id number] ####[facility] (DEFAULT)[address] [place] [address] UA w Culture if Ind Standard on 01-06-2023 Breakpoint UA [facility] Comment on above: Performed By: #### 5 [id number], [id number], [id number], [id number] ####[facility] (DEFAULT)[address] [place] [address] Color (U) Yellow [facility] Comment on above: Performed By: #### 5 [id number], [id number], [id number], [id number] ####[facility] (DEFAULT)[address] [place] [address] Culture? Indicated Invalid Interpretation Code [facility] Comment on above: Result Comment: Resu lt created by rule GL_MAGR_ADD_UA_CULT Performed By: #### 5 [id number], [id number], [id number], [id number] ####[facility] (DEFAULT)[address] [place] [address] 44833 Glucose (U) [Mass/Vol] Negative Normal [facility] Comment on above: Performed By: #### 5 [id number], [id number], [id number], [id number] ####[facility] (DEFAULT)[address] [place] [address] 81443 Ketones Ql (U) Negative Normal [facility] Comment on above: Performed By: #### 5 [id number], [id number], [id number], [id number] ####[facility] (DEFAULT)[address] [place] [address] Micro? Indicated Invalid Interpretation Code [facility] Comment on above: Result Comment: Resu lt created by rule GL_MAGR_ADD_UA_MICRO Result created by rule GL_MAGR_ADD_UA_MICRO Performed By: #### 5 [id number], [id number], [id number], [id number] ####[facility] (DEFAULT)[address] [place] [address] 10131 UA Bilirubin Negative Normal [facility] Comment on above: Performed By: #### 5 [id number], [id number], [id number], [id number] ####[facility] (DEFAULT)[address] [place] [address] 76444 UA Blood Negative Normal NEGATIVE [facility] Comment on above: Performed By: #### 5 [id number], [id number], [id number], [id number] ####[facility] (DEFAULT)[address] [place] [address] 36565 UA Clarity CLEAR Normal CLEAR [facility] Comment on above: Performed By: #### 5 [id number], [id number], [id number], [id number] ####[facility] (DEFAULT)[address] [place] [address] 57680 UA Leuk Est SMALL Abnormal NEGATIVE [facility] Comment on above: Performed By: #### 5 [id number], [id number], [id number], [id number] ####[facility] (DEFAULT)[address] [place] [address] 92039 UA Nitrite Negative Normal NEGATIVE [facility] Comment on above: Performed By: #### 5 [id number], [id number], [id number], [id number] ####[facility] (DEFAULT)[address] [place] [address] UA pH 7.5 Normal 5-8 [facility] Comment on above: Performed By: #### 5 [id number], [id number], [id number], [id number] ####[facility] (DEFAULT)[address] [place] [address] UA Protein Negative Normal NEGATIVE [facility] Comment on above: Performed By: #### 5 [id number], [id number], [id number], [id number] ####[facility] (DEFAULT)[address] [place] [address] UA Spec Grav 1.010 Normal 1.001-1.035 [facility] Comment on above: Performed By: #### 5 [id number], [id number], [id number], [id number] ####[facility] (DEFAULT)[address] [place] [address] UA Urobilinogen 0.2 mg/dL Normal 0.2-1.0 [facility] Comment on above: Performed By: #### 5 [id number], [id number], [id number], [id number] ####[facility] (DEFAULT)[address] [place] [address] Urine Source Clean Catch Normal [facility] Comment on above: Performed By: #### 5 [id number], [id number], [id number], [id number] ####[facility] (DEFAULT)[address] [place] [address] 13725 XR Abdomen 2 Viewson 023 XR Abdomen [...] Jordi Maciel MD 01/06/23 9:29 pm Technologist: [facility] Coding Summaryon 12-21-2022 Coding Summary HTMLBase 64 PfwmeewgNGu0wBo+PGhlYWQ+PE1 WARQxK98sbACvtS7yY9UWVSmWYc kcLKVUGDkJVtVpwkFrJV4ujVXiC XJu IC8+DL7uHZKuJkhbzUUtw8M8dCZ 6X43sxc8vAQbomPH2TFXdPwSsec cuo0lbeBs0HKsdFcoeRaTo IYFiwW06SAV8mH20Sk94rEVcwOM rb1ohbLn3RxWrHQMvLZB3lEtrBN hbm7TyABCyS21kdUOwb5A8 GNOmcVvtnRNoGsNeiEX3cE7sOIg garnbi4saekzdTcc2oh91nBDwa5 H0xWL2W1OkgsF8VTSmvIFg ShdrbWSXfU1aquyzn8zmfoudObH vGDVrMCn0JGz2UCGzcRqxMfKaFQ 53YKR0YKRypxZpV3SmWJHg zBkzQtP2y3D1Mn7JJ6NRCsvfX2G NTUFSWTwvdGQ+EY25ch89S6PyCn yyDyl1SGRlGBS1wMF3xT8a GEMaRInsd1Q9nHN4O4XvecSxaz2 dl8ivJMHdOBsfT95mzPHlz2J5GI BbhMT3PGUwzAagHzXhbQ51 Oyc+RZYcdWvay2TkXieal4kau0s nrMo6MtmzUDNfhfFftHpeBCV1x3 ZjIw7yNRQvwLR7vPA3aS6s DnKxCyU5AAskU716JlSyuYPhXwe yF39oP3RhuEO+COYtCbi5XQYpkI dtWG2bG1ZxQHKthqkqyIEf nQrrVI5vVRXvhnqfFFCidC6lVJO hX7t3XvBlGuJ7ORsqX3HnHKPihv upGv54rQ7nByCuVyQ1RJkt Z2AhkuN1CEPqwJNgIHrsZMC0K22 qe1K4NQUfXEIiRBM0kFV5vS9bmC lnbjogbGVmdDsgdmVydGlj KRjpIVmzQ259CFQslUyqKqZsRNm uZyBEYXRlOiAgMDgvMDcvMjAyMz wvdGQ+ARLiJIV2sBeiNGRm cONoYHmdQj9etCsiiRknRZ5gFIL nczhpREFxtH2pLYMtsVCwiHwtRA 7zVUOnepgqi611PdReQRP2 INIraVShR7RoiQ2zNhWvVVYtYIU hV8RdfAXwBQgsV396MAhnVmE5LW ApzyBdI0KqKKUknElnAqH6 m7U3Uf4Aj9PsxnnaC6ExsNCpFaS aPcykYRh6F3JgZmhomUS+PC90YW YvQE37CIq3ZPB5sPbuDYyz BWOlX5ZiwC3tFxHnLMRxKFBeLre +PHRhYmxlIHdpZHRoPScxMDAlJy TnzGgdEF4fEn9iQFOcHDQl yCohzWJvLlIug7aaRLRiOHozZK1 ryNsmQ6DhdQY6HAEtd7n0Ff75A7 2bW8BceRL+EWNdjLB5wXG5 oO5gRiXeEoS5COjtK945WcOhrMY tNoxcr0gdx6welLg2YwA1UHRsxp CbtNwyRSW9x9ZaUv48H23f IHdpZHRoPSIxNSUiIHZhbGlnbj0 ziS9cBm6+BCPxkSG6lUE0lE9rVh UmZuH8NLzzR930UoGeqPSo Mhxvx2rvm5pjlUy7HbXcYGAxfmU lgHwlDGY5o2EqKr40Y5DuaPsfy3 OwDli7zn75dWCez9A7yIF4 O9YaNZCtzgccnXIzdCrnCE1tDFJ pfyfbIQWuzK3vVRUuH6u7VsCoFw F2NKdzP9QssgH4SMJklFEz UGQzqGNAgW8vmrjmu1thxqfuIfE bHQBtZNu3ZZg0OQPufFpzYbGhHO X1HyP3ZBK0iHJheZ4feYad uhgnnD2yKla+IIY8vRQpyJKNPT6 lOjwvdGQ+AAPrWRH8aIchJDrgDJ HjuS9bSNIkE9f6WsTxMeB0 UNnxF1UgdzD1VZUywTXiHNUnfGE JlT7jhxmls0zqollgGmZvSVQoIR q4FBp1GJYrfKpeWrCbXWD3 NbS8YNJ2rOQyaR2faRlhqxwqlR6 wOyc+FyzgoNjpTPK0PJf7K5XdFi f0DYKmuEviLY3tzGSyPGoq Gz7rhAolsToqFC7eBSFiogpjc56 3BaLrw5fgRGEhmYIpTVlgGDK9C4 4wp3G3AKUfUSShMZW7hZB2 bM9taGikgvnytOUkkDgfhiChoZz xDDzaKYypE247AGLxoNilTiKiJE p2D1OlGbx2MPIweUikRP0f kJKvBMcaXv4ewOrknUbmTO0zQFT doxwfs604JlYqz3wrWAPhlGCrQS eaCVH5V81sm0G2IICjMAUs OSH1rMJ2iX5ddFpqhjfdyDYevRu tifOacWvnQZseNNukH649SRNpuG imFwLewFq6R7RwTxu4KNGx vRabOB7peUUdKSdkWu3hiYairEp wGF6sAIQslfahf144ZpNmr5ptCA XucLYaNZwxCEU9Q25nn8J8 LPAaZTTbHMZ9vOB7oN5oaSqwtsf gbGVmdDsgdmVydGljYWwtYWxpZ2 46IHRvcDsnPlBhdGllbnQg YZqgNSh0R1DmOjeioTT+DU65RJT pHA32qTEyuYUiq6kseGp9MaUvDN GuYJQ0oQkeOShbc7QyPSWv W10tiABjx0N9PCKfbFrdrRAqRlD nrQF1nE5cUAlnixbgz0uycgobUa sra8fytq34oO11E75lDGgc YMSoQTVnNLLfYQXqwWkqxb0vgX2 wIi8+FTMspVQ6iQA2gG8xIMZcIb B4DLyqK386VuJfwNPcSkeg n1klj6hyvEi0KlK1YGBgsqXfbXd vIUT7b1GvQh40Y00kBHpzUYJiOX WuVETpMEXnrUsjej0itP9e Ii8+PKUssVN9qRS2rZ2bZpQzAhJ 8EJivY098UbEwmWWjGtnzG06cG9 JvdXA+KIPxGha4NKFfqMaw ZY5wdAPqGAzgCq4bRXA5CaZjLqV yIHhzI3GlAAAovhazdkpqeFA1AG NlIFGneY15Ia7ecPpfFKQw cUTVpF4xbdhxn0wxqnohWbBqNXM xRKx7KBx3FGVbuKyqAwAzIYQ7Yg Z9LMM8aJEzwI8jqPkkilbu iZ1tW4JmYEUmgewrYo48sI9wKgM jNxH5WGyuTng+WJ8JACQCRVNfCO tROa6QOKpWXJSPZGlOZP8T PwbTWX00AO53zCVmi1Z7kTX3R9I kYYVlnnsrbrmqjND4PPMtXQZrsQ 38nZOlTTvvDn9kz0Y5w779 KWZhQUEogO08Tk8trTioKYPrpOC XaO3vrgisa6sstpnxQmCfDBLxWK l5UQn5MVVhrOxmOeKuQEY9 GsF0AQJ0iVNbbE4egOnvfbuvdY8 wOyc+MDIvMDkvMjAwNTwvdGQ+PH WuCMQ2lZpbUEpqMIRumZ2w GFOfX2f2JqMrKvM7AFqeT9HaNJE cdeutYc96mB6pIzLfIpK7NZlpS8 JsmrI2AAWijSInAMzyIJU2 N20lu3H0ETNcNPByCRE6lYL1wY8 hbGlnbjogbGVmdDsgdmVydGljYW dcKMfaS105AMFajHafTcX8 GSkcERQlVL82CU10wLAiz4X7eJE 9L9LeFMTdbacbbcnchLZ2NHQvZI PglR43kXOsRDflLl8td4L3 t744KGKdAMZouK25Ng0flBtdXNP jdEGQlL8xqewcy0dwdibeCpZvMK UcFRm3GRx2KXLenApyHlXu FJE2QzX0MEZ6qYSpnY1tkOqakic biQ4kVel+LzEGMFyODT61QI97sZ Hww6V3aYA4X6TtSYTfwlkk cngssOH4AWSeAVVnuL62qOYfULo lSx9yx3K0b776FOMoUCKjlG36Dv 9eiKpxFQGzfUJIrM9kjpwa j7iagqftHoTuYCVoOCf5BQy0ZMO utPfeTqDcICR6LjX5UID1yCXtnA 3uuZcuddcdmJ0uZwq+T1A8 S8EqFcnodTV+OI57SWSrCK59qCF vdJSlf0qjyWh9IpMdCMPuETT6kM gyCHzwo1YwRLIvT59rmNNb e6X6FGMftHixmLHvBmTjeXS0kB7 cLBmebjmvs6iyyjfjXlwxp8obuc 69aL62I59hNSgtVLScULKq JQSlFTWftEemtj1axI0eFb6+PGN izLX2tAP0iO4yRuIfUvC8NWrfS4 17TxHliUUlKlyex8tbf9mh xRu4LnPhXUPuzaJpiEgxNEU1l4E sHn73U79cNKfwHJGsBQOkOPIrFK SurIehko5tmS8wNd5+PC9j s8nxys76hS26lHF+XSMzGTP1gAb kLHabGQUjsW8tFNfmXoS6ITOxWp JloW93cSAwDKcdUy6tpSdu iHkhYF5tGLQprrvnm544IiUol7q eTLFlqPDfFUlbIGZ4K76pa0Y6YM OxJKRyCXR4zOW0gL6yoAwt bjogbGVmdDsgdmVydGljYWwtYWx vB125YRJkwXptLwOlyWSsZ4dydz XYIR0nOcoswLA+PHRkIHN0 iUbcYUinAPAesW5bQFPfU3b3DvO kOrR1RNisJ5AfmhL4RMJkoBXiHT KjiXJYzI3vgrqul1vnivqc GcZvGRWsASy2ZJs2LMHpaGeeFoF wZBX7WrL2TCD6tATfrI0btZtaqj yzsY9pHqi+RklOOjwvdGQ+ BAWrPEA7bBjtPTovNEPaeO8xOEV cF6n5TmXbEfI0QEebF2EffhC7KC ZovEDvCAQdbJNDmZ7qvwjs r9ngmcnaVyZwAWKuKLk4KLk1KJI dxGscFxFeJKS7BuR5VUI6gPIfjV 9ubUsizcfveB1pYda+TVJO OjwvdGQ+BCOpJGI9rTxwFAgsRCU prY0wAMVnU2e3LoPkPsJ8SReaS6 LmygR7HFPviOAnIJGnzAKN rD5llkmrs7kfdpruTxVzRCHlSLp 2ZGm5WWFaxPpcGqUwOOP7XwC7VK Y9lJWitI5hfUkwlqhxtB0f Oyc+TIJ3WDW1XI56AR22X9ZjJdn vdGFibGU+PHRhYmxlIHdpZHRoPS efBLOuWdHhkJdoSM2yEv2u ZGV (more content not included)... [facility] ED Clinical Summaryon 2022 ED Clinical Summary [facility] ? Urgent Care [address] [place], [place] [id number] Clinical Summary PERSON INFORMATION Name: SHEYLA LEA Age: 17 Years Sex: FEMALE : 2005 MRN: Acct#: Visit Reason: UC - Ear Pain; RT EAR PAIN Arrival: 12/14/2022 18:12:52 Discharge: 12/14/2022 18:47:00 LOS: 000 00:35 Check In: 12/14/2022 18:12:52 Checkout: 12/14/2022 18:47:00 Address: [address] [place], [place] [address] PCP: KEVIN STOKES PROVIDER INFORMATION Provider Role [...] Adult Follow-Up: With: Address: When: KEVIN STOKES [address] [place] [address] DIAGNOSIS: 1:Right otitis media with effusion; 2:Left otitis media Patient Understands: Yes - Patient/family/caregiver verbalizes understanding of instructions given Comment: [facility] ED Patient Summaryon 023 ED Patient Summary [facility] ? Urgent Care [address] [place], [place] [id number] PATIENT DISCHARGE INSTRUCTIONS Patient Information Name: SHEYLA LEA Age: 17 Years Date of : 2005 Reason For Visit: UC - Ear Pain; RT EAR PAIN Arrival Time: 12/14/2022 18:12:52 Primary Care Physician: KEVIN STOKES Attending Physician: Chetna Rodriguez PA-C Comment: Patient Education With: Address: When: KEVIN STOKES [facility] [place] [address] Otitis Media With Effusion, Adult Otitis media [...] weeks. Home care treatment may include: ? Olgp-hoy-pkghpif pain relievers. ? A warm, moist cloth placed over the ear. Severe cases may require a procedure to insert tubes in the ears (tympanostomy tubes) to drain the fluid. Follow these instructions at home: ? Take ddls-esv-avflwoc and prescription medicines only as told by [...] provider. Document Revised: 08/28/2021 Document Reviewed: 08/28/2021 [employer] Patient Education ? 2022 [employer]. Antibiotic Medicine, Adult Antibiotic medicines are used to treat infections caused by bacteria, (more content not included)... [facility] 11-13-2022 CNPN Telephone (ENDOMN) SHEYLA LEA ([id number]) 3 F Date Time Provider Department 11/13/22 DAVINA ENRIQUEZMN During your visit today, we recorded the [...] Encounter Status:Closed by BRAXTON LAMB on 11/13/22 [facility] Coding Summaryon 10-30-2022 Coding Summary HTMLBase 64 TtmntycnTGn5nNo+PGhlYWQ+PE1 BQFWpZ75feOAdfL5dG1CFUJhNLc ryIZAWUXxCSxSytlMtOX9ssKBvY XJu IC8+GR1xKXRfGkxvcUPmv2C0mTY 3K74xnh2zYZlzbZS5JKDwWwCwrf unp9klpPr2MDqxYieiSeLu SACcqD48NDD8zZ95Mv37zMPqsAP fr4codFw4AzZmKVCeTQF9iWcxBF qaf4XlTQBvS23erUIec5F2 EYCfnPejiKJfXjNsqWN3rZ5xCNz tfrpee1mylxdmSff1mx16dHIof0 T1lUD5A3DfvjY6KUZjyNDn DzxbwPANsD8sdssku9ddtohwJlJ oGUFoQUw7SNf9BODupEfnJeHtUP 07VGB5EFUjfjHsU8MeCSAn rBirIiH1j8V0Yb4LK9WENtyhO3L NTUFSWTwvdGQ+HS01ze64Z2MoFz jfRri9GCRzVWN2aSE9dF3f VZGkDRmpb1W1zQD2Z0JkaiUgrl9 yt8rwZIYqWGxkX12avIGnj7G1TM ZlcSI4IXOxtKwmInFyfW16 Oyc+RXNhqQijv1OaGcmlr0gif1m lyWl3VovlOVTrmlMfeRmiACC6y9 PtLn1jBGIlmHL1bNH8bQ1d SgApJdW6HQxlD350FhQqzPAnJyt nE94gA2GqaRT+FNFpTcz0EBErhT idPW0fR8XlDETiwozexAKn fBtiXN2fJLCytbtbKWHmpY2fAKV vB9g8XfWwEiM9LUqfR5UjLDJxuv pbAn27jT9zXpBcGqH4TQpm P7RtdoR5TEVxeOIyEMakOOJ0J80 ka7F3DVGhCXAcYXR7mUK3jE6naQ lnbjogbGVmdDsgdmVydGlj GTmjCLimJ429CFHpnOpwDgPjEZs uZyBEYXRlOiAgMDYvMTYvMjAyMz wvdGQ+CKYtTGV6qSejFZZs mOJcDWvyTp4vaKatyHqoOV6eDHD rlqevLLImtA7aTDWtgTIfsQcoWN 0lPEVsjlkub103SfRtTQZ0 JMRzfTHnC7JzlU4aMkDqZJEoDBU sQ8HtcCHbHOgaL613RMmtEgF1RC MbimQeE7MzFEHanXnfHyJ0 a1I1Tb8Vr1XlpxqoQ8RfeERuMrZ tRbmeHLo4U2OaXmtdyBX+PC90YW UbDH03YJv1QJW6hHslJJva ODNdU5SpbV8gYlHxPRXyPSOwOky +PHRhYmxlIHdpZHRoPScxMDAlJy IkkApgTT4xCr0xZQGcMAHm qQxrsWWmWlWbm8taKARuZVcpFT0 ccYirR7BjwGC8GNHga7n3Jt30Q5 4dX4JemCQ+MRKkrYC1jRT1 dT4qAgVeVjX9TBxbD945ItKtzCS fJycgx5dqs4gcuYa7LfW1WKBien SbpCkiKGU1a9CgDt92Y53f IHdpZHRoPSIxNSUiIHZhbGlnbj0 ntF1lFt7+NCWqxUI7fOZ0fY0zVj RdUqA2YHowP946LgIvyWWm Ncsub2fat6kvqBq7OdDlQDOytkU swCtrOAC4h2XsPs59I7UnwIbfg5 EwJrq5yv02jREae2B2fAV7 P0JbSSOvbpphvQUjvSlsMR6gPLC niamcTHBwtU3fFEJwY0g3WwQaZv C6NPxdJ6BwbfB9FIRuuGSq WVZikXTHjK7lnatwv5wsaobmCwF vXGQdQBh8SAf1AASnyTzbCjCpPR H3BsM7ZDQ0pNWefU7edEvf ugzunJ2pQwg+FQV3bMHpkKIEZG9 lOjwvdGQ+KRBiQQF5gAheWZtsZL NslK3hCWApV1x2VuXpVzY6 TMviI2GipyT1ZFAqxTAgLRIowTW MoZ5ekrzbg9zloszsVtHiZUUrMU n8ZAt8ISEdsDsiKyZsEUP7 CkK7LIN7bJUmnO0fkXrggiikvT0 wOyc+UaonaDsnRMK1WCb9M3ZrPw k3ISMlbGcaRL9jhGTvWCud Ys1ebZvdcFcbZK9fZJFynhwzu87 7UwRbw1azJPTxhPAsDAqmLMR8B5 5ot2S5LNOwQKQdEUP8sOI7 aR3yzVpwzmmqcNAfgXbrptBseTn hKDyxPLxcU249CQWuhKrhNvNhNL c7B4QuKld6YAAwuLtgRS3l sEPjAKiqBm7jdWutoPeoJR4jZYU wdkysj995SsXwf8hjGLEwcQNtIQ gzIPY1X30jl2H1FJLpEUQs WXH0iKL3gJ1xzDohsmacaDSaaNz albUyoXjyZVesOZryE753AEFehB kfHzZwtHo7J1FpDkp6OVBe hCyuHU5vvRIcKVeiQe4drTvdiOi rKW7yGGAfkuylx373ZbJcp3suYZ KuiEMmLDmpQIZ5D18hh5X5 KPQwTUHjVPE4vOD4bG8puIetqsv gbGVmdDsgdmVydGljYWwtYWxpZ2 46IHRvcDsnPlBhdGllbnQg OYvnCMv5X1UwYairxXA+AS17TKL uZT09iGAwyYXeq4diiTh8GfKbZZ AbTBP5bVrwJUxsx6KfLREi W99ecMNgx0O5QGJgdBrpnNLnDwG jnKN3sI9dDGwxfqodp8fhqhdvGh mbr4yqax38bR03P48qWZvy ARVxTBEiQGIqDTTmpKegoe9oiZ8 wIi8+MDFoxBH0dDW7wB2rRAWuXw G6HCkpQ587ScTcqWHdDazs a4isu4onwNh3DmE5ZSUfutCjdHx wYEN2n1DbGb03X34cHPtjXHUzVP YyIBUgZXErhRnjjn1apL6h Ii8+WJBeiJK3eGV2oV1xNjHtSmV 2ZZyiU518UbKwrGBcMlegH83uW0 JvdXA+ARPaNtv3IURweJnb BU3cwFIhMBavCg2jUSV8GpKmAmG tZVocH5TaDZApmdyveqjdoUV1NK VqQKHuiG98Sc5gnSkgHLUg nCOZoJ9mwwnlp4xqesltSuNmKSC cCKa3KTx2MIOmpGuqTqClGXH3Lj B7JZD6iFAbkR9ovWhglrkb yG2lJ9IrRKVeenywKi51kP1yEaJ uUtF7OMutWdf+HT5ZEPKFEWMiAT sFSx9QSQlAUWLKLNmKHF3M WvoOCL43WH61oFLxf5X3eIV6Y1W hRKUggttxoemgmVK5WVApFLHvqR 15jRFxDYgvOe6zx4I8d738 XHLfFAHyoF64Tu1juWpoMRAyyCN EjH1mzfxvf4ryvqgiOaNpUBQwXQ s6PGt5BXLbqMufVnOiWFZ8 FgN7IJZ1dGIdoX4onJlrflzdmO5 wOyc+MDIvMDkvMjAwNTwvdGQ+PH AqDON9qVsqQKcdIPYoiO2d WEJxD7f6NaWxSrO2FZunK5DbFDN uabobEx70xA0yMaBxFaU2ARnaU1 AbbdW7UXXgmUCoLFnuXCB7 C32cj9W1RBXnQUXyLUF7gLH8hK1 hbGlnbjogbGVmdDsgdmVydGljYW glLIbbD353SCRozRjxTkM2 KZkzEMLsLQ85VD81jDHkx4Z9qJU 5J7QlVQCacvhgwadknTQ6UDUgVR XliR49uDDkLUonMl6bb9E9 c185NLZbERAlaI08Jw8upMglXQF ogKKUeZ8ftkbgk7yzrbvzYbYgKQ GeOLi5WJj2DNEapUqaFaIm RFT7TiZ5OMS5tSPupP3ozWltmgs krP9hYod+FdDTMWiGMX84SA08eC Cgr1E7hDD6C7ZeBHDuegve zohfiJH6ONEyZWPyjY71rNQgOHp cBv5ps9L5r673MNBxFLXtpE46Db 8waCswJAIhxUXXmI2nayka j8ltnzfhMhBxFVGnZOs9CPr1RDI ulBhsUyZdKEF0IqE8UGF2dEDugQ 6rtRymlqpgfS3dSjw+T1A8 W4GlLojqyCQ+RN62NIOdIJ24aSG orXKwl3fshMt0JhMeZLZuEQX1oR eeLRcmm1JcARUnC67yqDTd x0P8YFZmcGfvpEGpMbWkeTK9wU3 mLAhsigzhy1rbdcukIlmbn4mlrr 32pF85J79kTEedYUKoPJBu RXTbKMAbePsfbo9tsL6tUu6+PGN uxMM1tJY0vO6iQrTxYhD3EMawQ3 78TlLspRSoGlgkw6bll1yt uGu6QrPrLNBbutNzyCgdIYG4n8N mXb90C94fTLrjKHJqAJGdFXZyGC QmdYtsmn6aqX7hUj9+PC9j k6mkfe83kR06aYN+OHOzQLE1oNb wVJpsMYJllY2mGLevMdR6JLIbZp KwhR67ySZxRKtmJn6wmPpl pYreYS3zFMWwyvfzq952AdFue1u xKNIqiRNgXHctYQH2M18fi8S1KO LtQUHaANC4iDI1sU8nqEyy bjogbGVmdDsgdmVydGljYWwtYWx jQ496XCQfyRwiIgRonUIoB6ikeu DAPC5jJvbenMY+PHRkIHN0 hKsaHLkoXCIzbX8sDNFiS6k7KvT bPlT0TWgcP5MwoqN3LUYkaNFiTZ DhoKHUrG9hohiki3fcixnm AxWmSRZpIJt1OFs6LDOdrRlrWeZ sIVT0FtL7XUW0pNImwP5ppAcpyb jibM9uXyg+RklOOjwvdGQ+ UFOuQNL5oUfeNJbyFKMqmT3kRSW gB9a9MiUwSlF4TAlsX7GtvvZ1FP CxjCZpSOGfcBJQbG0axhey g3mhxdwsXvTaFROmRQn8FGf5WOE etUvxFhPoRTU8BlS6OTY2dULltP 7peUkxkewzqK6oQvi+TVJO OjwvdGQ+TRXzKJH0tDfhRIewHUO ncI1hYXOiA5s3YxWsUoK6GGmrM8 QaohS2LEXdgDCpOGWusSKN rW6wvanyz8atxfkwAvYyVZOlKXg 9LTf8MGMjsAxjLiBnPPB8SnN4TA C7hTWxyZ6jdHetnbwgjP2q Oyc+MHT2UPC6IW89RM96M9LoHpz vdGFibGU+PHRhYmxlIHdpZHRoPS ndMXTiMcVlxXkdHT1zSe0v ZGV (more content not included)... Normal [facility] ED Clinical Summaryon 2022 ED Clinical Summary [facility] ? Urgent Care [address] [place] [id number] Clinical Summary PERSON INFORMATION Name: SHEYLA LEA Age: 17 Years Sex: FEMALE : 2005 MRN: Acct#: Visit Reason: Eye problem; UC - Eye Redness; LT EYE PROBLEM Arrival: 10/27/2022 17:44:34 Discharge: 10/27/2022 18:25:00 LOS: 000 00:41 Check In: 10/27/2022 17:44:34 Checkout: 10/27/2022 18:25:00 Address: [address] [place] [address] PCP: KEVIN STOKES PROVIDER INFORMATION Provider Role Assigned Unassigned Power Ny ED PA 10/27/2022 17:45:56 Ellen Mac [employer]ER Nurse 10/27/2022 17:46:07 VITALS INFORMATION Vital Sign Triage Latest Temperature Tympanic Temperature Temporal Artery Pulse Rate O2 Sat 99 % 99 % Respiratory Rate Blood Pressure /72 mmHg /72 mmHg MEDICAL INFORMATION Medications Given: Allergy Information: No Known Medication Allergies PHYSICIAN DOCUMENTATION DISCHARGE INFORMATION: Discharge Disposition: Home Discharge Location: Home PATIENT EDUCATION INFORMATION Instructions: Corneal Abrasion Follow-Up: With: Address: When: KEVIN STOKES [address] [phone] Business (1) Within 3 to 5 days [...] rub eyes. Please follow up with your seeing eye dog trainer or Dr. Mcclendon's office rafael, please call for an appointment today. Wash hands prior to putting in eyedrops. If any significant blurred vision, worse in anyway return for additional medical care. DIAGNOSIS: Injury of conjunctiva and corneal abrasion without foreign body, left eye, initial encounter Patient Understands: Yes - Patient/family/caregiver verbalizes understanding of instructions given Comment: Normal [facility] ED Patient Summaryon 023 ED Patient Summary [facility] ? Urgent Care [address] [place] [address] [id number] PATIENT DISCHARGE INSTRUCTIONS Patient Information Name: SHEYLA LEA Age: 17 Years Date of : 2005 [facility]: [id number] Reason For Visit: Eye problem; UC - Eye Redness; LT EYE PROBLEM Arrival Time: 10/27/2022 17:44:34 Primary Care Physician: KEVIN STOKES Attending Physician: Power Ny Comment: Patient Education With: Address: When: KEVIN STOKES [address] [place] [address] [phone] Business (1) Within 3 to 5 days [...] rub eyes. Please follow up with your seeing eye dog trainer or Dr. Mcclendon's office rafael, please call [...] condition may be caused by: ? A associate engineer the eye. ? A gritty or irritating [...] in diseases and conditions of the eye (rehabilitation medicine physician). This condition may be diagnosed based on your medical history, symptoms, and an eye exam. Before the eye exam, numbing drops may be put into your eye. You may also have dye put in your eye with a dropper or a small paper strip. The dye makes the abrasion easy to see when your rehabilitation medicine physician examines your eye with a light. Your rehabilitation medicine physician may look at your eye through an [...] you start to feel better. ? Take pcdf-ena-evkuuec and prescription medicines only as told by your health care provider. ? Ask your health care provider if the medicine prescribed to you: ? Requires you to avoid driving or using heavy machinery. ? Can cause constipation. You may need to take these actions to prevent or treat constipation: ? Drink enough fluid to keep your urine pale yellow. ? Take [id number] or prescription medicines. ? Eat foods that are high in fiber, such as beans, whole grains, and fresh fruits and vegetables. ? Limit foods that are high in fat and processed sugars, such as fried or sweet foods. Eye patch use ? If you have an eye patch, wear i (more content not included)... [facility] Urgent Care Note- Provideron 10-27-2022 Urgent Care [...] been selected or recorded.. Surgical history: Myringotomy ([id number]). History of tonsillectomy ([id number]).. Family history: No family history items have [...] given 2 (more content not included)... Normal [facility] Urgent Care [place] 023 Urgent Care Record [facility] ? Urgent Care [address] [place], [place] [id number] PATIENT DISCHARGE INSTRUCTIONS Patient Information Name: SHEYLA LEA Age: 17 Years Date of : 2005 [facility]: [id number] Reason For Visit: Eye problem; UC - Eye Redness; LT EYE PROBLEM Arrival Time: 10/27/2022 17:44:34 Primary Care Physician: KEVIN STOKES Attending Physician: Power Ny Comment: Visit Diagnosis: Diagnoses This Visit Eye problem ([id number]) Injury of conjunctiva and corneal abrasion without foreign body, left eye, initial encounter (S05.02XA) UC - Eye Redness ([id number]) If you received any narcotics, sedation, or [...] legal documents With: Address: When: KEVIN STOKES [address] [place] [address] [phone] Business (1) Within 3 to 5 days [...] rub eyes. Please follow up with your seeing eye dog trainer or Dr. Mcclendon's office rafael, please call for an appointment today. Wash hands prior to putting in eyedrops. If any significant blurred vision, worse in anyway return for additional medical care. Medication Information: The exam and treatment you received today in the [facility] were for an urgent problem and are not intended as complete care. It is important for you to follow up with a doctor, nurse practitioner, or physician?s assistant professor of art for ongoing care. If your symptoms become [...] so we can reach you if necessary. [facility] has provided you with a complete list of medications post discharge. Please inform your kiln tester/provider of your visit and for further instruction on these medications. Any specific questions regarding your chronic medications and dosages should be discussed with your primary care physician(s) and/or pharmacist. [facility], [address], [place] [id number], [phone] moxifloxacin ophthalmic (Vigamox 0.5% ophthalmic solution) 1 [...] a c (more content not included)... Normal [facility] Coding Summaryon 08-06-2022 Coding Summary HTMLBase 64 SezhkgrmQHt0sPg+PGhlYWQ+PE1 YMJHqV69deQRebK1CQ9sFIO5ZXR VRZIICJT0UCC4rzZV9PAkiR2Tru iAv QevpcZSzHL78WLs0LVS4yDpvLHe wkU1yzVVhZ4w6UvDyAV68bG53QM vnAWDcWwI3DrEgbmjdmAWi Q4mlRpIsvCLkCxd+PHRhYmxlIHd uVMThOMtoLODqEwTkwAhsLJ6mCn 9yZGVyLWNvbGxhcHNlOiBj h4dtGZHySWzfVT0feYdrZ6BngKS 8HTYhq9v1Mg56uMG+JGIeZPE6hC ugSRoam381YpQdc3ugBPW0 hZEfYKgpFAF2M54vr9V4YSWcZHC yJYQ4sBA8rZ8pdHewkibsR5GidX BbJtT9SNC9vEVunN8lqKmx qikgqT8cHfo+L26TAD4QICKVIJ3 ONef0W5PtJofbqMH+AB71RVAxIQ 63uGBzpHXkd3kfxKw5FyBv FLVzNBC7mZysRIjzp5ZoYEReS28 tkWZgx7E9MZVgqUwlwGQnGpVqmT W3pK7jREvhlyncr5eznsoo Yvhkw4mtzr11wP71V89rHSaaYDN tAKK8QSXmBKRqkMasjv7sdD5wJi 8+CBggx0dly2qhnYc7CzDn UEVfaiKfdGqyCAN4r6EyNx98O1J ntMpod9ZiVug1cx40dZQgj6J7kP U2VOonLVLnaZ1uPMlfNsU8 KPRcKoEenT28sCJnTJbxXn0zdOt puXmfZG1bVDUxbgdxSDBxhS4yQD CszMAkhIgqRA6mPCFymgem z314KpVjBLR9IYBjwYPqO6ArcC0 eItIdXBGyQOZmQ3UokUJyAQssM8 60PRotUxI0GTUentQfB1Em CASdhQymEoN9w9X6Xy3Bw4Jllbl lPDU5IBurUZTeUtYrGnZsNoB1L5 GiWvv0DRNabAzcRW4rV7Vg PHVexxovjpvagWF7LVQmTDHtkP8 3nIOoSAtyVq4fz3Y6p722AFViYX TyfT16Af6ydTgoDEVbuORE iO6jgjshw9munapiNoJgGUEaGJv 1TVw2UHLwqZpoLlKqSZQ6PiJ9LZ I6sYIdtT2tfAhllyyxnJ2o Oyc+O33fvD7aDWK7WRO8dmkhTEB cxaXlIN18TO32E3QqQgmdySUvuZ U+NKTlibKmsCxaJT3dTgBy k9msa6ZeKDkgS8ZmKGNoYUbyOoy 9ZHKiOWU2pDW3nZ3gWXJaQEuvx3 O8xWM0F8MpqaQxdz2ni7kd FJDdCGcmL92snBVnl1L7NIVbrUE 3RTYehOcrQmMayL02Hgj+PGNvbG bey4TcSdzdm2iuj9yfhXo4 PhEgOBFwrvVqmRxqXVV8s1HiRq5 6R70fUIefTMWgQFSoCRFgUYOrhV ikjv5idQ3iJx2+PGNvbCB3 tRM1bB0fXWReBrB1YGfvV131AnZ bmZNuCjywn6mvy6zcaSs1KjFoRN SjgxVxrVkeTJB4l3WkRt68 B68kNFkmZQKmVAPsLCLkQGPyuCk dmt5feN7aQn1+UL1eq2pqbx25oX 48dHI+FPQdTFG5yZuhAHau KGBckA8mNSqfZfK2TABiUrRnvQ4 7nPElXYajZb5enMgdhVbiXP3oRF Gjrwoxq095VqWfl1kePGGo qIPuKCavHBB3X18vs7B3ZUSzLNY wLQD1nGR4lR6kpNujkfhznEMzvW lghmEkjPmvHIsiVYllA106 IHRvcDsnPlBhdGllbnQgTmFtZTo 1I2MkYtg4TRYwrEwzKI1qaSBsLK ypRh7fuFtxzRruDM4xTCEe xdqvu924GrByy4hdHLPtnYSrIGy xGUU8E72px3E7DGXyGNAuHRW5kQ J9sB5rfKpbxbxpqCOlxGuc gsXngHcdPNhqQEukF809YIUksSk lUjYtvxYeQZVjtUQ0LT23MQ59cI Rch1J4lLV6A1EqYQNgwvzp fuhgaLV9NOXyWGKbyY36Qt1akAx bId7fTIZaICT4BEXszODnU4MctD 5rMbFkQCWjZUAoK0WkqUBp FGbqG874VUnyNpA7JPXpkaRdG5F aAWYzcMkbHvQ5b4L1Kj4GZ4A0AX 25AW46tHHpi8J0pAB6H3Zy NYVelqdpolfrpUH8PPDfSMHzfZ8 9Qj6yiNkgEq0yHABzNZI9STTrpN FvZ6GqwP1yMtVvAKOkLSRp Y7PpvXKsFAjrA358XKjsYuU1EJR bitXrF8ShVYCqkObePqY8c1J4Tx 6MGEq7KB69JC93uCFpr8P8 xRW2T2AcDYRlzqdtptubcTG8RGT eZRUhvO85Cl5bbZgyIa4wEZOyLJ P2KTPewAVhD6NjyE1hTqEr NUNcFXFfH5OouBGgZPcmR416QWk xYiD3UALzifSpD1AyVYVqeTaqHy R3y5U6Hn6EQILcQR30VYN7 kPN8ZE15RV97E1OsTpccjXDtqMS +PHRhYmxlIHdpZHRoPScxMDAlJy OrvYaxNM8xDx7aHXDrEBCk jVwseUClMzFeu0hdIRUnOMzkIA3 sgAtcP1WejWQ2EWTkr7w9Rx89Z3 5rB0XgkHP+EFXulLY6lCW8 zE7kGrXvDbD5XLlkO856LwEnpDG eCqgbs3hww0wkhGd1EhX6PRUtda QhpGymOCK1y2OePg97D69u IHdpZHRoPSIxNSUiIHZhbGlnbj0 akZ0lRz6+DSVttCI4lVT4dG6oZj GuIcO5ZYmzW508QaXnfQRh Ynmbr8kke7egfMp5LiZiDBCxdzW yuEbbNWS2x7CmRm98J5OqbNdao9 ZvMcq3tu90kOSyq4P2dDJ4 P6KyRHIixezywVJzgAjmST0uHIO xwahtZNApkX4lUJMqG4e7GzLcCk M1TImeS0RuwcG0TUSulMDr RSlzPJQ6Q92wp0N2FJPtNRMfURK 8jDK5xC8gcRxnczncfJPmqSacss KgrTckDBfnVCueS262ZSZm oDxlZXKdbV1vFTBjxWIwbFsfTT9 uPIHrlhxuEogLZcYNC2XHAIZEOD 0FKUCMZ6IVBXsIBZYYYDJY RTwvdGQ+SBQhUVW6uXmfVZgmJYF ewU6qLTZbF5h1GsYmTgF4MIqbD8 TsGTSasdgsLz19zH0vCnZm VbP6IXaaB0NbpcD8LPCiyMOvCNh fRAD4W83at5J1WDMwZNHgQTN3lL K7xP6qlVkndhkoqRTgrEiy qpLvdSprAWlwJOxlW261TTHnmFc zWhBdEsM5TaEmZWJ4T6HmEkr8TV PqmRbkUI4ggNYrSRhvNl9v nHsxyJfcKX7zSQXgzfogEKYbsM4 qLCVlmFVgsIcuRN4rFUDgcomwk9 76ZlRsGWW5VCFunVFzX0Ro zA7ePpSoOHVgEBQfE7RamNOcICs sE082QSlsCnR1PYIfiyYhG5VlMI ElsRuzBdB2y9B7Of3kKDUT ZWFyczwvdGQ+SRFnUYJ6bZqeHXc oYOXzdZ3sNDTnN3u1CsPpSfR7UP rlV1ThBCStcvyaUj56kS1y FeGgCaY8DShhS1LwspD9CJVwyZC lTCdyPVG1F69zr9V3ZPFjHLOzDV F4qQF7cW0sfBxgkenqfJEv qTdhnaMnuCgdTNqnPTgoG354PXX vcDsnPkZFTUFMRTwvdGQ+PHRkIH I4wYpoMFxoIWDyeU3nYJMc P9n5WmDtQjX5ZMzvZ6QaSXJyita iMb33iW0tRaBjFsT6CJwaU4Yupz F9AVArvKRbWYebSXH3M08d z0W5JJTeASVlVTZ6dWH9lX2cvNd nbjogbGVmdDsgdmVydGljYWwtYW llF063YBLqlVrzWk1ZSZ03 SS23Y9GyDmautSCfiQB+PHRhYmx lIHdpZHRoPScxMDAlJyBzdHlsZT 7mCr0vVPRnJIFigUhvwFBn PnNsq6iiJVIeCFuzXJ8oaJhiP2U etDU4FATyl7g0Lk28Z50rV4JhvL A+NQJkcGB1xJS1bM0lTaKm TbL7IXegW625OeMdqFYrDupbb5o kw8xqzQm6YwSqPJXbzuCudBaiDK A0p9ZtKd57R52sNHhtBJYv GBQzGAFbCGTdqXasfy6npV4fHc1 +MEAyiSQ7zKB1gK6aHsViKpZ0CT mtQ195MkWpsKFkDabwD22j B7YqdTS+NRRgPsd9XCWnkAfyAG8 oxSUnZOxzMw8yTCY1VdKqKrDwDN yzO6XvNLPxfcugtcpyiTA7 MLQuDDXhgT82Di9nlYctXg8vVJJ oNIM5AQTenDNxT7NtuV5hTpAbIT VbQIHnG8XwjOMrDXhsC789 PAfaYbH0ZQNdwfNsE5QrPVBdjFq bFaI4f9Z2Na9XaAzcoELgOC0sDl DfICy3A9CfKeh0LQAfaJqu OA3ugCAvZArdRq5mjUvljYekKX7 bXKMuqjeoi832WfAsm9xtGRBsiZ PjPCeySLT3A53pe1Y3ROCf VANfWEF0jOF7nJ4qnNesxtskjCT qmIkfqdFokGjxPLbePFdpM803PB NtwOfgVlOPWsh9E9DhCxl1 YRZyeMzrDO9hpUTjDQcqMm6jtLx ksJlqYQ2cQDOzmxafn115NoBfv9 hiZARneJFcUOhoRRZ5O21e z1T3TAEmMRHpJYJ7oTR5fJ1ijQh nbjogbGVmdDsgdmVydGljYWwtYW lxT635OOOygJhdWv6CTqr2 H4VeZzr3VCQziFleQP0qiGUzILx gFx0shKnctAugUZ9oMVYdphsnl3 74QaRgk9vpSDTloHCcWVhk MRO3B53il6E4IWZxAFEmPPR5eFU 5uP1blUkinxnmuELwsJgbocZegZ zeXUxbSJiaR203XONwvAjp PlBheWVyOjwvdGQ+FB96fa96Y9A iVfjqPus8WXDuOFT3kOS9vQ1hUZ GbWCmbx2V7sEZ2A8GektRi ci1 (more content not included)... [facility] Coding Summary HTMLBase 64 VtmqmiotYQc4bVe+PGhlYWQ+PE1 DTGEfL57yhXUemD1ZN8nDZQ3ZFB EUREPORZ1IFD1cjLX4PGbfA8Ery iAv ZbwptWCyQF61KVl8VNL5pYfvTIb caN8taNJmE7j3InSmUU59sM02XV itEEElPmO9CaXyzgortOSx B0pwSpUawJCgRis+PHRhYmxlIHd sLALbBJurSFSaMxFfoYymEK5pOf 9yZGVyLWNvbGxhcHNlOiBj f0smSFEzLAogFJ7qrWfsA2RlfCF 6FDGbr0c7Sk35eRH+WKPfAQY6mO ugPCuwo772TrLuo5dyQJG5 tVQdUQbjGDZ6F95gy0H9QQRdIXQ pJKK5lKT6vK3atMmgnmtbS6JhnD VyYoX8PWX3mKSmbG5klNqs gkjkzD2rNey+L52VLM4EWUCMNM9 GJgi7T8NrZpxuyHP+DK40TKShSB 71sJVylNBir8ejyTv4NkTa FFIiTLW3dWylLZizk4UjROTtS35 seIPtq3B8ZTAbgMbllNScJpRunS S6zQ3iJHitlhyek3hcmpix Ddfcr1fntp25lV35O13uNZlhBFF wJLH9EDSyYWVykFduin3pqT9vFq 8+FXifh2duv2itsDn5PjXk ZDYmfyLtlWpiVCY9m0AxQh22L4C biXepv5QhXfy6mg83tNBbf9W1uJ X9CUtiKDEmcM8qBVmjVyH3 ZDBpWtAllP97aCDtUDcwVc0hpKp nnNsyTY7hIROwhzcsXEKbqB8vCG TzyQNjsRibPW6lOCTugdru d841JcPaPGH1ICMlaTTkL3HvkT3 nWfXpJTVcARXmU8IvoWPaUAssQ4 83TZghJeM4EAVmzgErD1Ep DQWzbSnuFrU8k7R6Hj7Pf5Ixiex aDOU4CTlkKAPyDtTsOwTkOoY7V9 IeCbd4XETryEpsGJ2wH5Nf HFHltotfrwfqlWZ1AGAlIYMdhP6 2dCOhYJxbRn0en9E3p276INKpMR MctS27Lm3emPanQDNpbKSU pL7wmihrx2gtwisgYaOzFMVcIBf 7BWl8CRCmkZtlFuKfVXV8DeF0WO O7aBYdgA4cpIodsvwckT1g Oyc+S12dfA5zQGZ4AET5akrbUQK ihjUbPM24SP85X8DgGdfbfJQnrI U+PHHjlkIhxXysGV3iBpPd c1dzb4UdBTscN8CpZLNqLTawFwv 2ITLwUGH2bDK4gB2rHGKqYOnpt7 Q8dHF1S5IelhMelq3cl7vi GEGkHVngN41hwUHpd8S2VQPrmVF 0PUNykPgpEdQrfK83Umt+PGNvbG qrm9WvQfgzx7ouc8vntTd0 LcXaFVDyesCnsVssXWO6x3EnJe6 5H63yDVdqKHFkETPsTFCmOXNexJ tgmp4ggO0iYv4+PGNvbCB3 cCR8tD8oRUMwBoK9EJalI055EwZ nkWIaGsfhs3can3gkiTn7GhWjHY AvpdQedFbqTXA7g6RyWd61 N00sAPmrUEPhIUDkZWEcEAFwvDh tuj3ccL4gAq5+KS7ax8dere57oT 48dHI+NRCgIMY5aIlwSKfs YQBaeW7mQKarPfL5RSTcXqIftR1 3uSVcPTgeNo6ukYclyArwOB2uRR Ezhufpx646SnSyi9zlGIJf pXTnBMyuAZA1X81yx1W0MEEkCCU kFWR2qEY1yN4wgLzqxwibcUNnrQ aeqdOcjExhLZovDUifY630 IHRvcDsnPlBhdGllbnQgTmFtZTo 7U3NpCsw9ZWFjiOqfTW9dgCKpMO awMd0lgKumxFiqAP4vWKMc fqlea380CqNpc1jyFXObuSDyIPa wDBO7E36qu9L9GKPaYRQiKUV2fL T7nN4czGnqbqmbnZPjiXyx gbQzsEnyXGunRQfpD372IAEauLv yIzAnsvInHBHauGB8HK49CW26yK Kvt1Z4rGS7I3JyJXVggkia gxfegSP9ROGaLFKbeF09Un4fdLk dMn8eHWRiSWD5FVAurYMvV1MhqO 0jXkOeVSMiMAEfS6JijRQi PYjpT049FUdxVsL2MBLcbuRlR4E gEHYahVogJwQ7x3X8Dm6BY3T6ET 76XY39hMDxm7X7uKA5C5Yq IMQxyrqmpvwrcLM3BAAyFVGctB4 8Qx3flDrcLz7aFVXsKLR2RYTirM RpS0CsrP4zQeJvWBBjOSTz T5PqjHFzBAhgU135RKaaAiC6GAN kjwNnU2FjFLMqbKtgSsN9l2W5Ot 0FQJj2MO54ZM98eSGgd8A9 dTA4I0HwAXTaupipcrrxnZR0CMA gECUrkD86Ay2jvFlkFr9pXSGuBI L9JBLeuOKkP8JulJ7hQvOt BIJjGNJhU9OfjCCeLNlbG193WDa lCxO9LXHkpxGgR1ZrKDOkfMamJf K3p1J1Qb8LHJDhLK76WOK1 qXU7PZ37PY10P2PlMlwzeZLneRT +PHRhYmxlIHdpZHRoPScxMDAlJy AvlInqZE8lNf3mEKVuHAUl kHxikSRsIlBlz8yjZCJoRKocPA5 alHhhZ5TydLJ0FTDbs3q1Mu44I8 5xQ9TrtMB+KWZzmGI0dOU8 mF2dVmMdGuL1ZCppO515UdPckHB rZnejp4aye8lkcYh9GiM4XJFzhv XjkRocYQB5a1FrSi76T68a IHdpZHRoPSIxNSUiIHZhbGlnbj0 wiT2iWy6+PQVgiAB4cFR2nF1yWy XbQtR5TNocX347ViCoxRQg Xwwzj4maq3pkcFi1VqSxYLYdugW qfFwzUZZ1k3VcFy11W3EnzFaym7 PcSbz8wj87gMXzh2K0iAS1 G7UgJBEaxkxecIWhaWjsIL8wEYQ guczpNCSfvQ3hEIVoI2u5UnCqGq A9YEzgO3XzitR3PIPlvBCk YIftPTY9R14ae0U7JOArCWMoJLC 9qAQ1kZ1ldJrjpgpqeGBlnBisrh OohPwpUMbwGFjkX537SJOk mMcgJUIlqO9hNSHfxKXeyObcMM6 kNEPtsgubSrnMSfJVD8QNMVEMYI 4YSFNDL5PXQAdVYELIEAJA RTwvdGQ+ZUEuLKI5vXjpZUsvZDI mnS9dYEWjI6e0TlAgKwP1LBgqD5 ZlOOJzhromFv77sI4wPtIq UkE9ZIekU5BdghF3IRNfwVGnYAw bDAI8D14ac5H4GBJoADTnHWA3qL F8vA7kvMkvetpeuHLtpCnb cfXjzRtbBCykJJrzR244WVLknQp iKbAkDkT0XiEwPJV9A5DzFzo6XM CfyAjrQI2ejRHhQFbxAk7v nRsqkGyyKT7jEZHqytbbVMJobK5 lADOryPQxvEmkKY7aWOAvvdijq2 90TsEmTHN7GPVwyXYoX7Ef lD7tNwOfAVWvWULdJ8RrbYGnCGb vP709MUpjDfS6AOPsbzRoV2UnGT PqvQulCaC4y3R3Ni4pOQCT ZWFyczwvdGQ+XETjQKT8aRuxSIa mKQDbnE9kLONaC1e9XjChFdO5KK xrJ3UcHYIackkdEf60cK7t SdFfRiD1PZaqO8TgumC3AXCryWT aFFkhMCH3T79nu0A0FGLxFWViJL U4dZY6iB3hjMfzmbngjDRb yXvivhGygJplIQmuGJhbZ219PLM vcDsnPkZFTUFMRTwvdGQ+PHRkIH C7wHfgBQvsMBGxrV3bZLZu O1w4EhZqRuF8CRrlU3KzFFLavue jTr46nP4sBfWzHlC8ZNupG4Oowb E2SXQduPZcWZyiUYI3G65e p5Q4LMVpUSEmDPC4hBF7zW6zxBl nbjogbGVmdDsgdmVydGljYWwtYW vsE588MUVeyUanTiGhSQAk CB9bmGjigYX+QI02zd66B6EmIez kAae6ZLYtMVF0uIY3zM7zIMOiFI vkw0Q8xRE4P2IvczZfak8p c6bzRIMxMMsjT13hpQKdn5N3CJZ wlOS3PIRwnSqoCdZwwE13Zem+PG EhlRxev9MaFotrj5jwv0am mSr3IvEbVOXrryNkzTuxWMA6g2P xEu33Z65xACogUEAhRTGlNSKkXH CzfLcvzo3wtF6cNv2+PGNv jOM3vWR8mE5kIzEzYdQ7JUosO03 9GxIzcUMwUrwaq3ivg7srmSk8Gn FkKPGmnsIwmQfoNEY2j6Tg Mr97F3SjiFihp5IdNzz2ts20aAC gm2H9oQV9U3UbICZmvcuhdBTfwT tfVI0xNORcciicQATsaR3y AVTkN1h5RaUqThJ0OFnfB7UdlqM 1MFLmsXNaTSMnmTFXaC3kzaylw6 knbeskJbJlSWJjQWw3EHt7 MOAnhXvtNiUkPMP3MoX4PDQ9fQY wsA1bxIqcjsnvcZ2pPfd+UGh5c2 ybsKYvTW4evJX2BE35QU38 iXJbk8K9mFK1R4AgBWTowmxtjrp jpJE6RTHqEOYqzI81Fa0dwLjgPd 0hCVAlUTF6XXXhsONdQ3Wo hJ1dTmPdROQxFBAvV5IicKJdNGa vN976ZWkpLwK6BRFzpdSgP2XvMR VpxYddZiQ9x8E8Oc8DOJ09 SZ40KT25zVWqf7A4xOS7H2BmAXY ltbwpjaehzRS2IFUvHDZsqO27Mt 6zlOitMy3dTLOiLAM3GAWr lIXyO7LunA6fKoUtTJBsKKLiW8T wcVKjGUyeO781KScsBnS2HZSpji HfL8AcXHYscEgtIrK0k4X1 No1JEb84VF78LT55fYVnp8B6eQP 6D0GzTDTtulczobopfAG3WNUaAX ItlA66Le7pgTdmXm6dKHUy QEM1OEXozBSxT9HgnY9xIiNhTKQ zPQMcP9LirMGfFEsfN687WJleEp W0QKTrejWtJ3RwYLPyuWmo ZoG1h3X9Ny4WXRkltzd0N2ChZwu vdHI+VI96MAVxIF07sGKgcIYlq2 yhhGa6KfRtZUCtYYJ7gHmf PSd (more content not included)... [facility] Coding Summary HTMLBase 64 GxvrhmcuMQv6dBn+PGhlYWQ+PE1 PGOVzC74byAEpkL2UY2rUFO5EJR WYXPVGJW2BXH5pbJX5WCyxU1Fda iAv AoflcDAeAF74HGn0TVC8cPbiEXa uhR3lzXTyD9h4IzVaLF06iY82XT lzWGCfYqC2ZoNkomjbcQBw S7znPhWfkIWyTic+PHRhYmxlIHd iBUZqSObkROOzLjHjnIelOU0lJr 9yZGVyLWNvbGxhcHNlOiBj g2arBMBxCNfkGT0rpEyqW5RpgOG 3NLZsw1b1Ca63mOJ+PQBpYBO9wA mwBZppb373FcLuy0avXYN9 zRYuYIpbCRI7Q27jd0P8AZVaCPT uSPQ2hAM8wM9fwEczqyuuO8ElmM WsNyW5QRX8hBKrfT2ejCga ilahcJ4dLkv+T34CUS8QGFIVSI1 XJso9N5ItMfmooMQ+CP76AWDuAV 00zFIejHGfm9bsqFl1DxHe BQLlDJL6bCamHEtyn1SoNTTsM11 guXFpy4Y0DFJxdNdtcGGyGcQmbO G2rJ2bMUnzzckdn4bfuzjf Qmqqq0mzyj94gV94W36uONllGGE vMQH7SFKcLGPsnPoagq1yvW1yLy 8+TFwms0lox9ikgVp3TfWv JZJhubEnbObkPGD6f2WhVy82E8A ztTrch6AjOom5hp65xOCst0J4uJ O9ABvtSZHkxN1vLJooRxK5 PJWlZkHryS19kGIrWDkbWd1jrFh itJluGK4dSUJxppznDCFcoR6xWP NsaJDxyCgbIB6cHMQpxdlz b439NjBpJYM0VSWzmBFoU9LcyE2 mFlCkEJRuOWUeR0CrbRBvJOdiF6 25MGxhVzP4EJZloiSkN5Nk JWKhhTknTpY5y8U8Hq8Ua4Ufijt lHOM0ZRsvTUVoSbNeAqVcTkM9R5 CpIha0LHVtaWyzND3xV3Ya ZGJplnczgcmtmHD1QARzYULvmB6 5yIWnGGaqNv3rb0C2q274MPZoUP DwgA12Is6jkRjeJYJezMYR yO1rroadi8hbhduqLjUhGMXzHQi 6RZm4QICijVupUeIaGWO0CzO5IK V6wYMypZ0gaPkibjaubY8t Oyc+H63xqH6bRXE5TLI3znyrISM pxsMeRQ69BE13E1GtDeuhvNDgqO U+OCHcfoUvzFjhDG0kQsIy o2wis1HiLWdbE6JrDINnIFbeYoj 2APRyHEB9wSF3uO7iUCRfLKoat4 Z2pDP1M6BawuPhhl6ud4gc MBCdJCnfI37ejUOuq6Y2HQUqqYP 2UNCssWrrGlQvlY22Gww+PGNvbG brp7GlBwwtf7mgl8lkiQg4 SmLrEMHproZdgBbkDEY4w5JlVc7 6R02tKIokTUVdUPVlMQPrQFVwvI gfzc0xvV4gJt1+PGNvbCB3 qSM5pV3qUQPyUdZ8OPrnO780EiI ghBZdVsrlc9kfq3pxnRt4OuDuEK QelwAjlGxuZMM4i1UrXk46 J95bEYrbYKFuHXHjVPFcXDHdfMf rqt8atZ4fLx9+TY7br6hpwd44tT 48dHI+ZDBhWMK3rPpvJPsy JJWevG1rFKguAeY1JJMwAmFheI3 0rSGqUAezRf3ihVicyGdhEP5qEN Holmayc600EhKmx7zxPHFx cGHjSQztQAG1G33mv6M9FZDhTSI qIIO4vSF1mR7vyVnpwqevsVApfY unsgUtnPfdOKwvTXypK251 IHRvcDsnPlBhdGllbnQgTmFtZTo 3I6GoIcm2HGDxeQhzUL9srHTuFQ zvKy4moWauiBqiUI6vEPSf elkoh172UsGaw0ocXDHenPYgJHn iRNJ8D18ul4N2VGBiXLOwKPB3jO O1vI9bbDlxydtueIXzgFcx idOspSyqERnxGFicU698OXCciMs eOwLoyvLsFXSocVG9LE05NU63uV Mnb0Q9wBV2H6PjXPCofciz mkiaaWW3GBGkSFFbpP12Ap8dgMj mMh1dQLDqBHV6FAXfmLNoI1XqcC 3wPcImDHRmHRWpE9AmlUHt ECavS709FWgvWiJ6RIBlguByX2T kXGJhbHkwSsL8q4F8Xc8PK6T0PP 03QO87aVZpr2J2aQP6F6Rz EHZdjphecjnaaWC2XHUjKTBdiC9 3Aw3ebEhfBn3aHYMmRDZ4GPWmoD VfR3LewN7vLmIjKZEwMSVt P9YxkAClWDtyV480QFqiXjU8SRR mflCcZ7PfSMZtoLsdWsT1f4F0In 8EPTa4LF21MH45dHAym2G4 eHQ2B1NlPJDaodsupdvecOH1CXK uJCZkmM48Lb2bnNowPj9cVEFjJS R2HACnvWUmG1IhwZ0bWkPi CFZpEDAlZ2BhjYSiTCywO520ILa aOlU1YVMtqwVkT9EqLQVmpFhoEo Z2b7G0Dy2ZAHEpFJ24TYP7 mNR5ZL94OH99C0GqOkrayLYnaAW +PHRhYmxlIHdpZHRoPScxMDAlJy GebYgkKB2tXf3tWUClQERf lEednNZjRvVnx9tgEXNqUKpmLH4 xnTxfI6RsqNN8JFUki3u8Qx46Q9 8iW5GgjKO+AEYnmRS7mEV2 mL8cHgJzNyO8PInbK744SyNlqVM qQvxsj5nxz7ekfOt4ThZ2XUUgzm RrmFjwILO1w6YeMh14A00a IHdpZHRoPSIxNSUiIHZhbGlnbj0 bvV6oVt6+GHDfaEU8xYX5qR1cLp PaEiG1GEdmL783KgLvjTAy Wylzf8lkr9rziRf5MmVqKSWjjxM cpObtVFN4n6BuYx22G0YcoIgpm5 BnOgj8uo08vOGqn1J9hMH1 J5AiSNCdivrhzIEoaFzyJN8xDHR uimuxOXDueI2kYAXhD7o0JmUfVz B0YMvjU0WgmyZ1MJJppFFs GJxePET8H12pd2Z0ROPjRARvUQB 6yKN1yX1tiJdufcnpeDDivNnhbc QzxLwnGTvcTIlyF228WIHz xIufQTYbvT2mMKYijOVcaSusUY2 oQJOheyxkKhvVWlHKB4LXUGAXZY 6NWZTRW1KDROcEZOFSCHXA RTwvdGQ+OJRoHZK6aMsvBCfeRKY esA0oMHXcH9p7GrHjKbK7PXvkS4 SjERJewxufHc83nS3tYxNf LyX0KZpoJ4MflzJ0YOJkpBQwPSg dQDR6E49bi2U6OMFfQSAiPUV7pV P7uR7diUfcxbcoxPChhEzn tvGsdImjLOwpZNxtQ559MVAiyHg lYmBtLiI3AeVjVIH3G1BzYdr1UO AynQudZV8hhAJlSBbzIh6k lOzlqZlgDV0eZMTsjemnBTIzzI6 aKHTcfHYxcBznVK9qFQSpsoluw6 05TgLpOZU8NDJqsZMiT2Hm eY6fJuMvHFWeGAMjK0JoyOVoTHf vT762COshVyV8DZNctcRjU5RdVQ GcfTizLeM4w5H8Yc0dBVWZ ZWFyczwvdGQ+ZKQzFON3fGnjKHx uTQClsH8dEFVmU4b1EiDvNyM8VZ dzZ1InIYDqqefpHx29vV8i ZfOaOyU3LVsmC9GelkL5ECEpgIT kYOhdFVG4B83hc9Z5AARbTMElPR B0vSP2bR1erTksuzbcrDSb wGwmcsMvkAwiQHlhCEnwH124GKP vcDsnPkZFTUFMRTwvdGQ+PHRkIH N9tAkjXWefMCRuiA3rDVZq K1r8LnFfBlO2DPejC4JiNYJbjdt xSl78lD9aLoMcSdV1TUtuA3Kyjd W9RGEqcWFfBHcfVWX4X66t d6C8PGEoKUVaXHM6yHI4aU6lzPq nbjogbGVmdDsgdmVydGljYWwtYW igU806SLFhbAwfRoDyITIu AU8ocEisnDO+XB46ir42K9AfOdt tFcd8JOLjWYK6wIW8yJ8tYXWqWU gfr0C5pMG2F8KlccBvjv1r o7dqTBZgXQjsU26toEZfo5N2ELZ reQO9KYRuyErbUvAgdO84Nmu+PG VlqAsjk0QsPnthy6edv4mt cHl9ZoNcRGLbexOibRylGRX8b1R aZc83U14lABjuHEFnKTTuJZCdXE HnxLgedq6vtY6fOj3+PGNv zCU9zQC9cL9kOwRwArA0HGmkS27 8ZxJjxYEeCpkaq5kdb8epnGl3Lv XuYEUynmJpoCgiQLQ5r0Bh Rq34Q3KtpAoot5JrQtl8da93hOC gj2O0jTP1U4RaYLVabprxqZCccO knEP4pVUQoxnjyLBOzhL9q LQZoN4x2DsQlDsW5VKuiM4SyghL 5DUAngDKjSKEhiWAYbX1wktpfr5 bqscdfDjNdVNHrNJh5JNi3 JCPfgVhnBcNtKED5WdF6WWU0lUU vhV4vtTokwkrwyB9uPba+UGh5c2 mrfOTfQC8xcJM2NG56LY75 gUJjm0Z3wVR1W9JqUXAnpotsfok huXT4LVQdNKXknG91Oo9zpBywEf 2oLSUyVJA4EORoeNZmD3Kb iX4iQqCqABSfFZXyD6SdlVXuAGx xP513EMhbXyW9BSVfbiUkQ3CqFC WwmRhmXtP2z0Z3Nk5VMM16 HQ33OU40mJUvn3B3yDD4V7EtSLH xruouvpakmFF2NXNlKCHjuJ54Nj 2vcUjdRe9pBTKrXYJ9IPSy kJHaQ2MytY0iQcQtPAGqBJIzD0V bsFWtHCpxW794EZqtSaN6SZWlic ToV4KeTCYufNcyWdU8l4R7 Qj4UUk56OS37GS26gQAjr6L9eQU 8G4AaBBOiprxgbmrunUY1IKStBC SedQ05Hb8ypRxjFm0gIJJp WMZ2USXxoGFaD7JduA2cNoVqNWG qYOZoS9BitIVjDPckJ881GMjvKg U4RFDqdbQfN1NaUBBpvNug UfP9h0O2Kx3UBWatdfi4O7OqCbt vdHI+LY89EZGpNP51zORwuNIdx9 daqGc4OwEkLCTgZAX6yPrv PSd (more content not included)... [facility] Consent Formson 08-03-2022 Consent Forms [id number]#[id number] [facility] .Auto Diff 1on 07-31-2022 Auto [place] % 8 % Normal 05-28 [facility] Comment on above: Performed By: #### 1 [id number], [id number], [id number], 3423487, 0507549, [id number], [id number] ####[facility] (DEFAULT)[address] [place] [address] Baso Abs# 0.0 x10 Normal 0.0-0.2 [facility] Comment on above: Performed By: #### 1 [id number], 8862391087, 7861081157, 0213740, 4604473, [id number], ####[facility] (DEFAULT)[address] [place] [address] 8[address]18 Basophils/100 WBC (Bld) 1.0 % Normal 0.2-2.0 [facility] Comment on above: Performed By: #### 1 3755205, 8235695298, 7785247018, 7319200, 7124253, [id number], ####[facility] (DEFAULT)[address] [place] [address] 82168 Eos Abs# 0.1 x10 Normal 0.0-0.4 [facility] Comment on above: Performed By: #### 1 8770478, 2217524022, 5756886589, 5385236, 5628591, 5350683102, ####[facility] (DEFAULT)[address] [place] [address] 51147 Eosinophils/100 WBC (Bld) 2.2 % Normal 0.9-4.0 [facility] Comment on above: Performed By: #### 1 2107968, 7587805542, 9542761280, 6063033, 1835285, 9730355789, ####[facility] (DEFAULT)[address] [place] [address]77 Lymph Abs# 1.5 x10 Normal 1.3-2.9 [facility] Comment on above: Performed By: #### 1 3468155, 4048511854, 7266643176, 2169943, 4113064, 1362192497, ####[facility] (DEFAULT)[address] [place] [address] 49769 Lymphocytes/100 WBC (Bld) 35 % Normal 14-48 [facility] Comment on above: Performed By: #### 1 3808996, 1316478865, 4283744797, 2789847, 8330752, [id number], ####[facility] (DEFAULT)[address] [place] [address] [place] Abs# 0.4 x10 Normal 0.0-0.8 [facility] Comment on above: Performed By: #### 1 7282935, 3271307798, 9139516981, 2543521, 8922546, 2744542080, 5090964528 ####[facility] (DEFAULT)[address] [place] [address] Neut Abs# 2.3 x10 Normal 1.5-9.2 [facility] Comment on above: Performed By: #### 1 8618827, 6526483275, 3397758947, 9652173, 5606825, 6176908227, 7711255379 ####[facility] (DEFAULT)[address] [place] [address] Neutrophils/100 WBC (Bld) 54 % Normal 44-88 [facility] Comment on above: Performed By: #### 1 8054493, 5708431175, 6416696821, 8943074, 0276872, , [id number] ####[facility] (DEFAULT)[address] [place] [address] CBC w/ Auto Diffon 3 Erythrocyte distribution width (RBC) [Ratio] 14.7 % Normal 11.5-15.0 [facility] Comment on above: Performed By: #### 1 6839314, 4001621987, 9170883130, 4581365, 5967332, 8516551928, 6297821681 ####[facility] (DEFAULT)[address] [place] [address] Hematocrit (Bld) [Volume fraction] 39.8 % Normal 33.7-40.4 [facility] Comment on above: Performed By: #### 1 0585401, 3949143711, 7124224221, 0187381, 6102833, 5968304300, 0596113246 ####[facility] (DEFAULT)[address] [place] [address] Hemoglobin (Bld) [Mass/Vol] 12.9 g/dL Normal 11.3-15.9 [facility] Comment on above: Performed By: #### 1 2442611, 7936142201, 6172889616, 6033709, 2022520, 2354237465, ####[facility] (DEFAULT)[address] [place] [address] Man Diff? Auto Invalid Interpretation Code [facility] Comment on above: Performed By: #### 1 1493045, 8010382199, 6077734709, 7340255, 5488285, 1877544847, ####[facility] (DEFAULT)[address] [place] [address] 26615 MCH (RBC) [Entitic mass] 25 pg Normal 24-34 [facility] Comment on above: Performed By: #### 1 1893705, 3766523603, 2704234431, 7786668, 8445086, 3465368574, ####[facility] (DEFAULT)[address] [place] [address] 77430 MCHC (RBC) [Mass/Vol] 32 g/dL Normal 26-37 [facility] Comment on above: Performed By: #### 1 3831816, 6734501079, 6885997176, 4671429, 7315307, 3534130473, ####[facility] (DEFAULT)[address] [place] [address] 78423 MCV (RBC) [Entitic vol] 77 fL Low 81-100 [facility] Comment on above: Performed By: #### 1 4281864, 6648825592, 4935137401, 5717582, 0323824, 6965469402, ####[facility] (DEFAULT)[address] [place] [address] 49526 Platelet 254 x10 Normal 138-427 [facility] Comment on above: Performed By: #### 1 3692589, 7799454135, 9783650698, 5626261, 3456857, 2999761458, 4919661564 ####[facility] (DEFAULT)[address] [place] [address] 70488 Platelet mean volume (Bld) [Entitic vol] 8.8 fL Normal 6.3-10.2 [facility] Comment on above: Performed By: #### 1 7913559, 5678270679, 4520234276, 0867737, 7902632, 6741069026, 8995491673 ####[facility] (DEFAULT)[address] [place] [address] RBC 5.14 x10 Normal 3.70-5.30 [facility] Comment on above: Performed By: #### 1 8571184, 2119051262, 3728489443, 2085344, 5689943, 8066112059, 5917030722 ####[facility] (DEFAULT)[address] [place] [address] WBC 4.4 x10 Normal 3.5-10.5 [facility] Comment on above: Performed By: #### 1 2444630, 3158645273, 9530049734, 0821862, 0159310, 3167896072, 3002748287 ####[facility] (DEFAULT)[address] [place] [address] CMP Standardon 07-31-2022 eGFR Non AA >60 Invalid Interpretation Code [facility] Comment on above: Performed By: #### 1 4904480, 0229463684, 1485075534, 0353642, 3945095, 8189767889, 9483304397 ####[facility] (DEFAULT)[address] [place] [address] eGFR AA >60 Invalid Interpretation Code [facility] Comment on above: Performed By: #### 1 8404423, 2366720795, 9453473285, 6343531, 6323096, 6722785525, 8376435213 ####[facility] (DEFAULT)[address] [place] [address] 83365 Albumin [Mass/Vol] 4.5 g/dL Normal 3.5-5.0 [facility] Comment on above: Performed By: #### 1 2374347, 8372895024, 1452481248, 1184437, 4171061, 9935046609, 6234389108 ####[facility] (DEFAULT)[address] [place] [address] Alk Phos 70 IU/L Normal 32-91 [facility] Comment on above: Performed By: #### 1 6074433, 8376111998, 9609624511, 5412865, 3990025, 8564459385, ####[facility] (DEFAULT)[address] [place] [address] 21964 ALT [Catalytic activity/Vol] 20.0 U/L Normal 8.0-29.0 [facility] Comment on above: Performed By: #### 1 3716001, 8164901359, 4036723323, 7119940, 8994418, 1574763326, ####[facility] (DEFAULT)[address] [place] [address] 81889 AST [Catalytic activity/Vol] 19 U/L Normal 14-37 [facility] Comment on above: Performed By: #### 1 2915646, 2596724824, 6029381721, 0029045, 8665034, 0728302735, ####[facility] (DEFAULT)[address] [place] [address] 58858 Bili Total 0.7 mg/dL Normal 0.0-2.0 [facility] Comment on above: Performed By: #### 1 4661126, 3622959326, 2971046061, 8511204, 9813246, 2647499003, ####[facility] (DEFAULT)[address] [place] [address] 26287 Calcium [Mass/Vol] 9.1 mg/dL Normal 8.9-10.3 [facility] Comment on above: Performed By: #### 1 8923416, 0303075587, 2044947483, 1323974, 1699856, 6353389705, ####[facility] (DEFAULT)[address] [place] [address] 99653 Chloride [Moles/Vol] 105 mmol/L Normal 101-111 [facility] Comment on above: Performed By: #### 1 6148922, 9503988883, 3849990503, 4827762, 2151642, 1555290685, 3272648657 ####[facility] (DEFAULT)[address] [place] [address] CO2 [Moles/Vol] 23 mmol/L Normal 21-32 [facility] Comment on above: Performed By: #### 1 [id number], [id number], [id number], 5433652, 7376393, [id number], ####[facility] (DEFAULT)[address] [place] [address]78 Creatinine [Mass/Vol] 0.64 mg/dL Normal 0.30-1.00 [facility] Comment on above: Performed By: #### 1 [id number], [id number], [id number], 1654370, 7912229, [id number], ####[facility] (DEFAULT)[address] [place] [address] 25340 Glucose [Mass/Vol] 92.0 mg/dL Normal 56.0-144.0 [facility] Comment on above: Performed By: #### 1 [id number], [id number], [id number], 9185617, 4910661, , ####[facility] (DEFAULT)[address] [place] [address] 98528 Potassium [Moles/Vol] 3.5 mmol/L Low 3.6-5.1 [facility] Comment on above: Performed By: #### 1 [id number], [id number], [id number], 7324049, 0484448, [id number], ####[facility] (DEFAULT)[address] [place] [address] 15550 Protein [Mass/Vol] 8.0 g/dL Normal 6.1-8.0 [facility] Comment on above: Performed By: #### 1 [id number], [id number], [id number], 9393207, 0258391, [id number], ####[facility] (DEFAULT)[address] [place] [address] 33732 Sodium [Moles/Vol] 133.0 mmol/L Low 136.0-144.0 [facility] Comment on above: Performed By: #### 1 [id number], [id number], [id number], 8464586, 1151294, , ####[facility] (DEFAULT)[address] [place] [address] 20044 Urea nitrogen [Mass/Vol] 10 mg/dL Normal 8-26 [facility] Comment on above: Performed By: #### 1 [id number], [id number], [id number], 8272574, 4140190, [id number], ####[facility] (DEFAULT)[address] [place] [address] 73337 Albumin/Globulin [Mass ratio] 1.2 {ratio} Low 1.4-2.6 [facility] Comment on above: Performed By: #### 1 [id number], [id number], [id number], 4818026, 4948008, , ####[facility] (DEFAULT)[address] [place] [address] 04429 Anion gap [Moles/Vol] 8.5 mmol/L Normal 5.0-19.0 [facility] Comment on above: Performed By: #### 1 [id number], [id number], 8224966151, 5781583, 4405825, [id number], ####[facility] (DEFAULT)[address] [place] [address] 53082 Globulin (S) [Mass/Vol] 3.5 g/dL Normal 1.5-4.3 [facility] Comment on above: Performed By: #### 1 3842631, [id number], [id number], 1808941, 7623449, , ####[facility] (DEFAULT)[address] [place] [address] 92537 Osmolality 265 mOsm/L Invalid Interpretation Code [facility] Comment on above: Performed By: #### 1 [id number], [id number], [id number], 8674241, 6243718, [id number], ####[facility] (DEFAULT)[address] [place] [address] 55166 Urea nitrogen/Creatini ne [Mass ratio] 15.6 mg/mg Normal 4.6-16.2 [facility] Comment on above: Performed By: #### 1 [id number], [id number], 8747648891, 4850767, 9050551, 9909474541, [id number] ####[facility] (DEFAULT)[address] [place] [address] CRPon 07-31-2022 CRP 0.6 mg/dL High <=0.5 [facility] Comment on above: Performed By: #### 1 3702392, [id number], 4956914333, 9150314, 7704641, 1277163589, [id number] ####[facility] (DEFAULT)[address] [place] [address] CT Abdomen/Pelvis w/ Contras ton 07-31-2022 CT [...] MD 07/31/22 12:29 p Technologist: Natalia JI [facility] Comment on above: Order Comment: IV on ly ED Clinical Summaryon 2022 ED Clinical Summary [facility] Emergency Department [address] [id number] ED Clinical Summary PERSON INFORMATION Name: SHEYLA LEA Age: 17 Years Sex: FEMALE : 2005 MRN: Acct#: Visit Reason: Abdominal pain; ABD PAIN Arrival: 07/31/2022 11:11:49 Discharge: 07/31/2022 13:07:00 LOS: 000 01:56 Check In: 07/31/2022 11:11:49 Checkout:07/31/2022 13:07:00 Address: [address] [place] [address] PCP: KEVIN STOKES PROVIDER INFORMATION Provider Role Assigned Unassigned KATHLEEN LUNDBERG ED PA 07/31/2022 11:14:51 Gila Solis [employer] Nurse 07/31/2022 11:22:38 VITALS INFORMATION Vital Sign [...] - pharynx pink and moist. NECK: -Supple (nvxo-or-jpxwm): non-tender. CARD: -Rate and rhythm: Regular -Edema: [...] at 0.6, (more content not included)... Normal [facility] ED Note - Physicianon 2022 ED Note [...] - pharynx pink and moist. NECK: -Supple (ivpt-rj-zyvee): non-tender. CARD: -Rate and rhythm: Regular -Edema: [...] 20.0 IU/L (more content not included)... Normal [facility] ED Patient Summaryon 023 ED Patient Summary [facility] - Emergency Department [address] [place] [address] PATIENT DISCHARGE INSTRUCTIONS Patient Information Name: SHEYLA LEA Age: 17 Years Date of : 2005 Reason For Visit: Abdominal pain; ABD PAIN Arrival Time: 07/31/2022 11:11:49 Primary Care Physician: KEVIN STOKES Attending Physician: Ean Solorzano MD Comment: Visit Diagnosis: Diagnoses This Visit Abdominal pain ([id number]) Abdominal pain (R10.9) Elevated blood pressure reading (R03.0) The Pharmacy at [facility] is open Wednesday through Wednesday from 9A [...] alcohol and/or drug addiction problems; contact the [facility] 07/12 Crisis Hotline -Text 3CFXG to [phone]. If you received any narcotics, sedation, or [...] legal documents With: Address: When: KEVIN STOKES [address] [place], [place] [address] Business (1) Within 2 to 4 days [...] and treatment you received today in the [facility] Emergency Department were for an urgent problem and are not intended as complete care. It is important for you to follow up with a doctor, nurse practitioner, or physician?s assistant professor of art for ongoing care. If your symptoms become [...] so we can reach you if necessary. [facility] Emergency Department has provided you with a complete list of medications post discharge. Please inform your kiln tester/provider of your visit and for further instruction [...] heart throughout (more content not included)... Normal [facility] Extra [facility] 07-31-2022 Tube Collected Yes Invalid Interpretation Code [facility] Comment on above: Performed By: #### 1 [id number], [id number], 3552372960, 2114898, 9215645, [id number], [id number] ####[facility] (DEFAULT)[address] [place] [address]472 Extra [facility] 07-31-2022 Tube Collected Yes Invalid Interpretation Code [facility] Comment on above: Performed By: #### 1 [id number], [id number], [id number], 7523450, 6917577, [id number], [id number] ####[facility] (DEFAULT)[address] [place] [address] 77241 Lactic Acidon 07-31-2022 Lactic Acid 6.5 mg/dL Normal 4.5-19.8 [facility] Comment on above: Performed By: #### 2 [id number] ####[facility] (DEFAULT)[address] [place] [address] 32627 Test Urine 1on U Preg Negative [facility] Comment on above: Performed By: #### 1 [id number], [id number], [id number] #### [facility] (DEFAULT) [address] [place] [address] 74808 U Preg Internal Control Pass [facility] Comment on above: Performed By: #### 1 [id number], 99071273, [id number] #### [facility] (DEFAULT) [address] [place] [address] 23912 UA Zstna3dh 07-31-2022 UA Bacteria None [facility] Comment on above: Order Comment: Urina lysis Microscopic order added on by [employer] Expert Rules system. Performed By: #### 1 [id number], [id number], [id number] #### [facility] (DEFAULT) [address] [place] [address] 11853 UA RBC 0-2 [facility] Comment on above: Order Comment: Urina lysis Microscopic order added on by [employer] Expert Rules system. Performed By: #### 1 [id number], [id number], [id number] #### [facility] (DEFAULT) [address] [place] [address] 56520 UA Squam Epi Rare [facility] Comment on above: Order Comment: Urina lysis Microscopic order added on by [employer] system. Performed By: #### 1 [id number], [id number], [id number] #### [facility] (DEFAULT) [address] [place] [address] 47891 UA WBC None Seen [facility] Comment on above: Order Comment: Urina lysis Microscopic order added on by [employer] Rules system. Performed By: #### 1 [id number], [id number], [id number] #### [facility] (DEFAULT) [address] [place] [address] 65855 UA w Culture if Ind Standard on 07-31-2022 Breakpoint UA [facility] Comment on above: Performed By: #### 1 [id number], [id number], [id number] #### [facility] (DEFAULT) [address] [place] [address] Color (U) Yellow Normal [facility] Comment on above: Performed By: #### 1 [id number], 54969634, [id number] #### [facility] (DEFAULT) [address] [place] [address] Culture? No Normal [facility] Comment on above: Result Comment: Resu lt created by rule GL_MAGR_ADD_UA_CULT Result created by rule GL_MAGR_ADD_UA_CULT1 Performed By: #### 1 [id number], [id number], [id number] #### [facility] (DEFAULT) [address] [place] [address] 04672 Glucose (U) [Mass/Vol] Negative [facility] Comment on above: Performed By: #### 1 [id number], [id number], [id number] #### [facility] (DEFAULT) [address] [place] [address] 62974 Ketones Ql (U) Negative [facility] Comment on above: Performed By: #### 1 [id number], 40352581, [id number] #### [facility] (DEFAULT) [address] [place] [address] 82047 Micro? Indicated Invalid Interpretation Code [facility] Comment on above: Result Comment: Resu lt created by rule GL_MAGR_ADD_UA_MICRO Performed By: #### 1 [id number], [id number], [id number] #### [facility] (DEFAULT) [address] [place] [address] 35750 UA Bilirubin Negative [facility] Comment on above: Performed By: #### 1 [id number], [id number], [id number] #### [facility] (DEFAULT) [address] [place] [address] 88805 UA Blood SMALL Abnormal NEGATIVE [facility] Comment on above: Performed By: #### 1 [id number], [id number], [id number] #### [facility] (DEFAULT) [address] [place] [address] 78691 UA Clarity CLEAR Normal CLEAR [facility] Comment on above: Performed By: #### 1 [id number], 34458014, [id number] #### [facility] (DEFAULT) [address] [place] [address] 46014 UA Leuk Est Negative Normal NEGATIVE [facility] Comment on above: Performed By: #### 1 [id number], 88706106, [id number] #### [facility] (DEFAULT) [address] [place] [address] 37813 UA Nitrite Negative Normal NEGATIVE [facility] Comment on above: Performed By: #### 1 [id number], [id number], [id number] #### [facility] (DEFAULT) [address] [place] [address] 46649 UA pH 7.0 Normal 5-8 [facility] Comment on above: Performed By: #### 1 [id number], 97767184, [id number] #### [facility] (DEFAULT) [address] [place] [address] 18398 UA Protein Negative Normal NEGATIVE [facility] Comment on above: Performed By: #### 1 [id number], [id number], [id number] #### [facility] (DEFAULT) [address] [place] [address] 08214 UA Spec Grav 1.010 Normal 1.001-1.035 [facility] Comment on above: Performed By: #### 1 [id number], [id number], [id number] #### [facility] (DEFAULT) [address] [place] [address] 22007 UA Urobilinogen 0.2 mg/dL Normal 0.2-1.0 [facility] Comment on above: Performed By: #### 1 [id number], 03878995, [id number] #### [facility] (DEFAULT) [address] [place] [address] Urine Source Clean Catch Normal [facility] Comment on above: Performed By: #### 1 [id number], [id number], [id number] #### [facility] (DEFAULT) [address] [place] [address] 12365 Coding Summaryon 07-11-2022 Coding Summary [employer]Base 64 PmwovabeGWx3vOx+PGhlYWQ+PE1 JEVKcJ22hjZDlpC0YQ2uODO0YRN HYQZBKME2CQN6aeLG4SRgyR5Zoo iAv GreksCRtJS48NDg1RSK1yRspEFs frW2nbHJaX9j9EvJgVN38jL54BZ grWLMyCgD2HiFlgprfjWTi B1vxStCqmSYrMkt+PHRhYmxlIHd nNKVeYIteROXcZePhzHaeZS7wPz 9yZGVyLWNvbGxhcHNlOiBj m0eiZYNcCQzcHJ6huHjwX3UdsWL 6FCQfj0k6Qu44bDY+JCLuVDD9lF ebAGhpx980GsInp6nlLTK9 cKTxWOinZFQ2O04rl4W1JALrAHP aCOQ3zYE7eZ5boLhbyurkR2ZkxU XdRzK8FTC5qSWczL2xiZfp lqmuhY9dZsf+G78NLE6QXXJQQW9 ACsg6Z8EcCqfryNF+HB77AFZjRA 26fZRvzULrz7qvnSd4NbFb VHHtZUI2hRwqWIjhr4KqCXUeE87 pkHZir1T8JJTzqVmymDOgVfLjnK R8aL4xOResjstzz4gkaibi Vmgdo0ehpg10oG29Z43vIBazRQW xFRL9DXAvKWJykHmpky7ntT8qQn 8+JEryj4wti0mmrCs3SoDw UNDvmmPwoHvwQYY1n1YrJo18B6A xbNfip1YqZzf4ct31fCQok4B4uF I0NFpfDZLukC0qJXvbMaU0 VOYcMaBuxC21lKJfPSyhOr3uqAl hdMsmCA4pGBKqioddNHCsyL5yDA RumGYmbVurPW9aFOVcfcla i334OdSfZNU6CVQupTEeU8ZyeC4 lMwFoPFCuVPRkK4JglUOsBYivU8 02QXdcSpI4RXFtpkMdK3Yy SMMdmKgyVdE4m1W5Sp4Ww0Vyhux gSAD7QGspJZTlWdP9OqJuFfV4T9 GgQyd8ZAVrqIucWI0mT0Rt KAIgshisyqbjbCB7OTXaSREylM3 7iWOyHGyqXa2km2M1g542DYBaGX TecM34Oo3haWcjPBUfkHYX jW0estxpb0lejbzeZfXkHLWfZKk 0PPk5ZUHjbBidTgMdLST6OuH4IY L0cSZlmJ3ggTrptayayU7k Oyc+M90vyC0xOML2LIZ0bgztATP dsnJeEZ26ES40X3JuYzygzDUaxV U+IOTefcZccTgmPQ2oTuNu t7hrr6IjEXjwR7RmBLDiQTcmMvt 9NBDyZRY4mXF5kT4mKXCqXZcfq3 K8hQR8N6IkarZhrz2wo5kj LAWeQIncT93xkJDdt2N5HZZhvSQ 3GHNjvNnsRiSxiS28Arz+PGNvbG dzf2ZmKhwnm3rcw4pkpCr2 SgDtMRMkjnPidNctPMV9f2VfGm7 3I44lCRttOPLjXVYtNHBvWEJnbS ekzg1yrB5wUc8+PGNvbCB3 sGG3wD5fQLIoTfL3BYqvO216HbN ckTOnFqkcv1bgk3tfbJt2EoPwWS IfzeRjdCxhHSN7i1YzTa09 X63gRXwyFQLkABByFVXpHPTdmSd rre7mgA3hEr1+XI4lu3tlkn32pT 48dHI+SHIuJET7uDyzKOkw ACShbC7rMKqqYqL7PUTmMsEbsZ9 5nHPkTMuvXv4nlOiouEbiEN8nGP Fcmckkg667RvDkv1avFJNb wRFrWLxuTTP5I27rx6O3XPVxDVY wSNY7uEM4xA9tsXprtwgseJNcyW wpatWfwBdpZUrhJWtqV411 IHRvcDsnPlBhdGllbnQgTmFtZTo 0V8NmSmi2PSAnuFfkLU8vjQOsGF xdZi4fmHrgrBecYC6yMWRr boqoh578OtDml9riHHOmjDIrWJi fMNF1S35sw4F1IPJnMKJhBMC2gY H7zO0zvOkbcgxpaTJmoUly yjSgyBioIMnzUPvrR059RGKxoNw cCfRmdwLnQRHkqEL3HS98EI38vX Zxf6V8xJI1O1AlOWYmxycb kjdaiWO1KDOnSHPuqH13Lq7jyWi qKt9zCNJgXYI8IROmwBNeT8UtfV 3kPoPiPDBtWRNpD5ZsnWRs ZBuzS808YMndXaK7LNHfnmVgJ1K hXZFlrMfgIqA0h0K9Eu9PK6B2ON 44PY37fVQcy6R7lRE9K2Sl GWDfzhqdzjpuzXT9YYJaSXNeeL9 3Sv0ztFvuLa8kYVMlKTM5PARvxC HwJ4ToxK9mDkTtBSVdZPHr S2FpmYZmALugW283EVyhXiX7UXX ahfPbV9UlOZRrfFypEkE7k8Q7Hj 8KZTw5AQ39PD08mZCzs2C4 dRR6X4XvSIRleqoubumnlJO1TDT aGGIjvU38Hg9poHwuYw8zAHGaRK I7YQNnhVGyU5RkdQ8vDaNl SRWwIFAxV7TbhAToFQabQ857ZJd fLpD8YBDmztYwE9OeNQWwnSmmKj V3b4T5Vj1OFJVpGY67HVQ8 qET4LS19SY24E8MtXghrjHSzmHJ +PHRhYmxlIHdpZHRoPScxMDAlJy OjlYhyAI0eWc1sDFOjGRZn qLetdJTxPrOth5vcSDMuMOpcME4 zkLxhE0QcwMN4NHSus0s4Bg89B3 9vK8CkaXA+MHHyyOW4aIL5 lD9yNiNzTcB0VJqbQ190RsAjhSK vMbizd4nch3dcrXw9SqC7POQfpd PmhQexILX3c4WaOu42P40t IHdpZHRoPSIxNSUiIHZhbGlnbj0 vtH1tVf7+LWZjaOQ4wCQ8yD1qFm YqSvZ7UYdeB342DgGemUBf Kmobw4ngf9jpsTa3RxLzQIIkxxE olJinHOU2e9BzKf99B8LoeFmgv9 AtXqr8sf34xFKbe2W5nGB2 C5YmYKIeglwltILcsPrwOW7iVTD abrtiEKStqZ0bQNWsS1e7AcWbIr L9AHlkV2LcshK5VRRxmOQs BVtoMYL8U23hw6D1QFUbZLWtLWH 7dKW7zU0knQfnsvigtSJrwUrpue JcxGxmGUwlLQhoY413GEMi hLsiTLPeeA2cSQEldVEklUqmCL7 qBGMksllnKbvLIzSVZ2HEHZJPTD 1SMAZGP2SUBNhYXFWFOSFW RTwvdGQ+OTOcTBQ7vVwbVRbgUEC fpG8cEYDvL0i4JkRhXcE4ENlwM6 KwEGServoqFi43zH0jJaIu UkB6MDxhY8VwikD4BNRisPRmFTz xGHT5E65eh9K9HDHoYQDzHXA9oP G5bT4aeKvsrqplgKPhkUci fyKheUweKIifWFelS724UGMyiKc jNfEwGdC4SnOhBZY1P1CkEoo6QT GbfTwzMU0fnGVcERjgRo4z sNhhxLlrXD7jXIXprwrvXVCxmU4 iWLOhkUZzsVkzIO3xTCWlofchk0 58UfGzVDK6MMAnzPWxK5Su xM3hNwFiREMcAEYjA0SjaEIbXUa kD623VLtmTvX8GRIeyqMdD6TjDP GjuKglUbZ5t7M6Dd9kMMMP ZWFyczwvdGQ+HXRvNOR5aPaxYNx xLQZukI0oPSGlQ3f6CwGhDxB6PA zdE5ElFPQzccihMp87wY5d XhSpYpS9QTknV5HpagR1VENfeQF aFYlbPDC7Z77cu5R2YXVqYVUiWR H1vVQ2cW0wuHuyyamuoGMj dQdlhuFduBnyFRxzRZwxY957BSQ vcDsnPkZFTUFMRTwvdGQ+PHRkIH C9dEzhUGrdLLOsiR4hTWNa E9z9XpZbAuI2BRdbI2OiDOLxssm gAu34lR3rUtFlEdO2UZfgV9Epcp S2BUQlxFRuYDmjVAY2Z76r k1C1VXFxCPWsQMM3kYZ3wC9itMy nbjogbGVmdDsgdmVydGljYWwtYW hlE838PSHzsNfsTo7DFK73 SV66M7VyIhcqiKVooGT+PHRhYmx lIHdpZHRoPScxMDAlJyBzdHlsZT 9bMi0hDFTnFBYsaAskpSVe JaKpd2dwRDJcUEmcSU2hnCrxO4R jdDC1YSIsm5j0Dr36Y23tN3DouW A+FMBcaIP7xPA9kH3iPyFc OgC5PApdZ571VbEzlRZdQzjyb7h cc2vlbWe1IvYeKVCknmDxzHraPB R6u9YqQw90N01uQXhpKCUh DYOgFOMlBKOeuKmqzl7fzB4eNa7 +DKSiwRI1lRI1tG4fAjAbIhI1YH oyT580HuRwgFAxMburD80j P1WvxIN+JQFzQxc8RHTqsWkcCA7 bqSFtSMosSw9eRAR8GyFnYtAwAI zeU1WnGVYfhlidavgggCC3 AIGuMUCrbJ52Ky7lxTayHh6cZAA jNQB2AVPcuPAjG4ErtR7nQhSjQC SpVVMcP5GfjYSoNIwdM923 EAmwZtQ0OKWnbmMkN1RpQDZzaCf lGvF1f5I5Ac3JoOnxiEJdON4fOg FyQDl4X9JdMij4LIYgdKms HS8drVUiIJurUg1ttWbyiKpaKP3 dBZXarkkig762FmWgg9jjBKPlqC PbISkgJOL3P33rd7Q5HEHr ZDOsSSR3yJW6vV4hvWitenlwoEQ xaIqtmbNrzJhfHLgwJRjfF456JV GupGbaNnGPXiu2Z0ZzUxv8 CCSjnKsaFB7hhUOnCBhjFc8lpRl zyNfuJH2wVULiwmimt115NfHmt7 tlUTLzaVGoTXdzYQR0B68r f2O4USEdOEJuILM4zOT9dJ9kdTq nbjogbGVmdDsgdmVydGljYWwtYW goE373FUKwqUehYi5XImp0 X8ZtLuf6ABKrcLhwWA1ezKYoPYd qIx5xyBgtmFdeWD2wNAVsidkgm7 37AsFih4arNKKvkMFaJCtu PLW8I89mb5T2SPJcDFUtLWH0yMZ 7yF1odOcyizukkVKlfNmnwnKrzU miWTsbKQryD464VMVxbVnj PlBheWVyOjwvdGQ+PM72sk67B6M tVsuaMqv7PNPpQBZ5iSK5yH8cXR SfCLudf4I2aUZ9I1QbesAn ci1 (more content not included)... Normal [facility] ED Clinical Summaryon 2022 ED Clinical Summary [facility] ? Urgent Care [address] [place] [address] Clinical Summary PERSON INFORMATION Name: SHEYLA LEA Age: 17 Years Sex: FEMALE : 2005 MRN: Acct#: Visit Reason: Ear pain; BI LAT EAR PAIN, FEVER Arrival: 07/08/2022 10:52:39 Discharge: 07/08/2022 11:26:00 LOS: 000 00:34 Check In: 07/08/2022 10:52:39 Checkout: 07/08/2022 11:26:00 Address: [address] [place], [place] [address] PCP: KEVIN STOKES PROVIDER INFORMATION Provider Role Assigned Unassigned Arvind Doherty PA-C ED PA 07/08/2022 10:58:02 Levy Bee ED PA 07/08/2022 10:58:39 07/08/2022 10:58:42 Zara Fleming [employer] Nurse 07/08/2022 11:09:15 VITALS INFORMATION Vital Sign Triage Latest Temperature Tympanic Temperature Temporal Artery Pulse Rate O2 Sat 99 % 99 % Respiratory Rate Blood Pressure /60 mmHg /60 mmHg MEDICAL INFORMATION Medications Given: Allergy Information: No Known Medication Allergies PHYSICIAN DOCUMENTATION DISCHARGE INFORMATION: Discharge Disposition: Home Discharge Location: Home PATIENT EDUCATION INFORMATION Instructions: Otitis Media, Adult, [id number] Follow-Up: With: Address: When: KEVIN STOKES [address] [place] [address] Business (1) Within 5 to 7 days DIAGNOSIS: Bilateral otitis media Patient Understands: Yes - Patient/family/caregiver verbalizes understanding of instructions given Comment: Normal [facility] ED Patient Summaryon 023 ED Patient Summary [facility] ? Urgent Care [address] [place], [place] [id number] PATIENT DISCHARGE INSTRUCTIONS Patient Information Name: SHEYLA LEA Age: 17 Years Date of : 2005 Reason For Visit: Ear pain; BI LAT EAR PAIN, FEVER Arrival Time: 07/08/2022 10:52:39 Primary Care Physician: KEVIN STOKES Attending Physician: Levy Bee Comment: Patient Education With: Address: When: KEVIN STOKES [address] [place] [address] Business (1) Within 5 to 7 days [...] Follow these instructions at home: ? Take hjpj-oln-fdkyuke and prescription medicines only as told by [...] provider. Document Revised: 08/11/2021 Document Reviewed: 08/11/2021 Elsevier Patient Education ? 2021 [employer] Medication Information: The exam and treatment you received today in the [facility] Emergency Department were for an urgent problem and are not intended as complete care. It is important for you to follow up with a doctor, nurse practitioner, or physician?s assistant professor of art for ongoing care. If your symptoms become [...] have provided (more content not included)... Normal [facility] Urgent Care Note- Provideron 07-08-2022 Urgent Care Note- Provider Patient: SHEYLA LEA Age: 17 years Sex: FEMALE : 2005 Associated Diagnoses: Bilateral otitis media Author: Arvind Doherty PA-C Basic Information Additional information: Chief Complaint from Nursing Triage Note : Chief Complaint 07/08/2022 11:04 EST Chief Complaint bilateral ear pain 2 days. fever yesterday. no drainage pain 10 . History of Present Illness This is [...] been selected or recorded.. Surgical history: Myringotomy ([id number]). History of tonsillectomy ([id number]).. Family history: No family history items have [...] Impression and Plan Diagnosis Bilateral otitis media ([id number] H66.93, Discharge, Medical) Plan Condition: Stable. Disposition: Discharged: Time 07/08/2022 11:20:00, to home. Prescriptions: Launch prescriptions Pharmacy: amoxicillin-clavulanate 875 mg-125 mg oral tablet (Prescribe): 1 tab(s), PO, q12hr, for 10 day(s), 20 tab(s), 0 Refill(s). Patient was given the following educational materials: Otitis Media, Adult, [id number]-cp-[id number], Otitis Media, Adult, Wlbs-hv-Fzdr. Follow up with: KEVIN STOKES Within 5 to 7 days. Counseled: Patient, Regarding diagnosis, Regarding treatment plan, Regarding prescription, Patient indicated understanding of instructions. Orders: Launch Orders Miscellaneous Request: Excuse from Work/School (Order): 07/08/2022 11:21 EST, No work or school today.. [Electronically Signed on: 07/08/2022 11:28 EST] Arvind Doherty PA-C [Verified on: 07/08/2022 11:28 EST] Arvind Doherty PA-C [facility] [address] Urgent Care Record [facility] ? Urgent Care [address] [place] [address] PATIENT DISCHARGE INSTRUCTIONS Patient Information Name: SHEYLA LEA Age: 17 Years Date of : 2005 Reason For Visit: Ear pain; BI LAT EAR PAIN, FEVER Arrival Time: 07/08/2022 10:52:39 Primary Care Physician: KEVIN STOKES Attending Physician: Levy Bee Comment: Visit Diagnosis: Diagnoses This Visit Bilateral otitis media (H66.93) Ear pain ([id number]) If you received any narcotics, sedation, or [...] legal documents With: Address: When: KEVIN STOKES [facility] [place] [address] Business (1) Within 5 to 7 days Medication Information: The exam and treatment you received today in the [facility] Urgent Care were for an urgent problem and are not intended as complete care. It is important for you to follow up with a doctor, nurse practitioner, or physician?s assistant professor of art for ongoing care. If your symptoms become [...] so we can reach you if necessary. [facility] has provided you with a complete list of medications post discharge. Please inform your kiln tester/provider of your visit and for further instruction on these medications. Any specific questions regarding your chronic medications and dosages should be discussed with your primary care physician(s) and/or pharmacist. New Medications [id number], [address], [place] [id number], [phone] amoxicillin-clavulanate (amoxicillin-clavulanate 875 mg-125 mg oral tablet) [...] in the (more content not included)... Normal [facility] US NECK (POC) HNI USE ONLYon 05-28-2022 [facility] THYROID/PARATHYROIDon THYROID/PARATHYRO ID * * *Final Report* * * DATE OF EXAM: Apr 19 2022 8:15AM [facility] 1048 - US THYROID/PARATHYROID / PROCEDURE REASON: [...] 2 points Echogenicity: Hypoechoic, 2 points Shape: [id number]-glko-gmri, 0 points Margin: Lobulated or irregular, 2 [...] WHICH MAY REPRESENT UNDERLYING DIFFUSE THYROID DISEASE. Carpet Layer: NIKO Transcribe Date/Time: Apr 19 2022 8:34A Dictated by : UMU WHITAKER MD This examination was interpreted and the report reviewed and electronically signed by: UMU WHITAKER MD on Apr 19 2022 8:40AM EST [id number] Normal [facility] Cholesterol in LDL Direct as say [Mass/Vol]on 04-15-2022 Cholesterol in LDL [Mass/Vol] 95 mg/dL Normal <110 [facility] Comment on above: Order Comment: Speci men Type: BLOOD SPECIMEN Ordering Facility: [facility] Address: [address] [place] [id number] Result Comment: <110 mg/dL, Acceptable 110-129 mg/dL, Borderline high >129 mg/dL, High Performed By: #### H DL1, 79261-5, 6-3 #### [facility] CLIA [id number] [place] [address] [place] Cholesterol in LDL [Mass/Vol] 95 mg/dL <110 mg/dL [facility] HDL CHOLESTEROL BLDon 2021 Cholesterol in HDL [Mass/Vol] 42 mg/dL Low >45 [facility] Comment on above: Order Comment: Harriet abernathy Type: BLOOD SPECIMEN Ordering Facility: [facility] Address: [address] [address] Result Comment: >45 mg/dL, Acceptable 40-45 mg/dL, Borderline <40 mg/dL, Low Reference: 1. Expert Panel on Integrated Guidelines for Cardiovascular Health and Risk Reduction in Children and Adolescents: National Heart, Lung and Blood [place]. Pediatrics. 2011: 128(Suppl 5):B486-886. Performed By: #### H DL1, 26438-3, 3015-3 #### [facility] CLIA [id number] [place] [address] [place] Cholesterol in HDL [Mass/Vol] 42 mg/dL Low >45 mg/dL [facility] HbA1c (Bld)on 04-15-2022 Average glucose Estimated from glycated hemoglobin (Bld) [Mass/Vol] 94 mg/dL [facility] HbA1c (Bld) [Mass fraction] 4.9 % 4.3 - 5.6 % [facility] Average glucose Estimated from glycated hemoglobin (Bld) [Mass/Vol] 94 mg/dL Normal [facility] Comment on above: Order Comment: Harriet abernathy Type: BLOOD SPECIMEN Ordering Facility: [facility] Address: [address] [address] Result Comment: eAG: (Estimated average glucose) is a calculated value from HgbA1c and is warehouse representative of the average blood glucose level in the last 2-3 month period. Performed By: #### 5 5454-3 #### [facility] CLIA [id number] [address] [facility] DES[id number] [place] HbA1c (Bld) [Mass fraction] 4.9 % Normal 4.3-5.6 [facility] Comment on above: Order Comment: Harriet abernathy Type: BLOOD SPECIMEN Ordering Facility: [facility] Address: [address] [address] Result Comment: Amer ican Diabetes Association guidelines indicate that patients with HgbA1c in the range 5.7-6.4% are at increased risk for development of diabetes, and intervention by lifestyle modification may be beneficial. HgbA1c greater or equal to 6.5% is considered diagnostic of diabetes. Performed By: #### 5 5454-3 #### [facility] CLIA [id number] [address] [place] [address] [place] T4 FREE/FREE THYROXon 2021 Free T4 [Mass/Vol] 1.1 ng/dL 0.8 - 1.5 ng/dL [facility] T4 Free SerPl-mCncon 022 Free T4 [Mass/Vol] 1.1 ng/dL Normal 0.8-1.5 [facility] Comment on above: Order Comment: Harriet abernathy Type: BLOOD SPECIMEN Ordering Facility: [facility] Address: [address] [address] Performed By: #### 3 024-7 #### [facility] CLIA [id number] [address] [place] [address] [place] TSH BLDon 04-15-2022 TSH Qn 1.950 m[IU]/L 0.510 - 4.300 mIU/L [facility] TSH SerPl-aCncon 04-15-2022 TSH Qn 1.950 m[IU]/L Normal 0.510-4.300 [facility] Comment on above: Order Comment: Harriet abernathy Type: BLOOD SPECIMEN Ordering Facility: [facility] Address: [address] [address] Result Comment: If t he patient is , TSH reference range varies by gestational period: First Trimester (weeks 9-12): 0.180-2.990 mIU/L Second Trimester: 0.110-3.980 mIU/L Third Trimester: 0.480-4.710 mIU/L Jose Fisher et al. A Practical Approach for the Verifications and Determination of Site- and Trimester-Specific Reference Intervals for Thyroid Function tests in . Thyroid, 2019:29:3:412-420. Loc Haddad, et al. 2017 Guidelines of the [place] Thyroid Association for the Diagnosis and Management of Thyroid Disease during and the . Thyroid, 2017:27:3:315-389. Reference ranges were not locally established for this patient's age group. The normal values are based on the following source: Jayla W, Tim Elam. Reference Ranges for Adults and Children: Pre-analytical Considerations. [facility] Performed By: #### H DL1, 56583-1, 3016-3 #### [facility] CLIA [id number] [place], [place] [id number] [place] [address] [place] Coding Summaryon 02-24-2022 Coding Summary HTMLBase 64 QfvyvslxAWr4tHr+PGhlYWQ+PE1 RGIMyC52ijZRniV2JU7wHLZ4CLQ BATILYAT8BWJ9zpKR3REfrM4Vvt iAv YcomuDQqXT62SCt5QME7dXfpKKi ntU9whHAaO5k8MdHeZT39iZ27MP teHSFuBjL5PbTwhkdlvAYy F7jrHoQmfIQrBzm+PHRhYmxlIHd jEAOhDYldTASsSjRugJvkRG5fXo 9yZGVyLWNvbGxhcHNlOiBj v6qcTVFyVOsfMW8yrMrbV9KnlTE 3LLUze2y0Ce81gJR+BPGzBJG3fI pcXBvud541JqVsr3dtKKT5 xIUeAEjdKGN3J26qm7K5NHShBMC nQBA7pFF8gA0dzDimemkuZ2LxtF SxHqA6YQG7mFXdkZ2xdLuz zgyepN1bHra+R34CFR5LJBWYPI7 RNsh0F8XaEwsttRX+SW37LMLiBD 51aDXsmJXlc2xixWb9WuRw MNVeQBE8mLsaOZzsf2BgSBYyO73 ivURsn4M3MEZibGaqdBUrOlHvyX S9fU3qOMoivmvva7lefxmt Xuykt8xjum78wG67G49nETtlRNL nVIL7ROXiMHLuoYvjms8dbO9cMb 8+IAyjb4eeb5lgpKi2AkGp PUImuvPnwYkcDZO5l3SjLm94Q1P ofVpux3WgTew8cn73lQKae1N1mL K4JLppMCNphF6mHEdvDnU1 THPiIlIipU87vIGiKWabTt4biFd tsUuyVT5kSAMyzveqSYOleY9uYD SorQIuzDvnYJ2mVZAibqdc s410KiDiVBY6ZJIrlMEaN9FyaL8 pLoGqMJUnOUImX9WfeMEeCSqpE3 09VOvtKzZ7IPYkkmQzT4Fu HNHhhJfbAtV9d1H8Bt0Im8Ocgji xMBZ3LJksRVDkYuSoOpIwFeZ9M1 QdLku5GPGzvMdsPO4mI2Sa MNYtkajfgnbnbKF1WWHhPHAxxT6 5oPTyQHsqLg1cw7R9j727XJKqSA TvyK63Em5ykTmqMDMlmUXY nQ9vmgooj6tqyjvcXxDqZDKyMNg 6FJh9MWVynTcwTnTjHGP4HvJ8BQ H9gLPvtG0kzDyzvxzmgV5k Oyc+D01gcF6rBNX9AGV8oelqAOI tpfDtIW57WS42N1HaMmdbhDBukS U+QOObpfYqqSaaDY8nSeGd f9zjn1CxAZaaS6DvAPKwCVvrTnf 4WGGwDXY7pYC6lO3zUFXsFOybt4 P5gHA8S0DplcKbdb2qb4yb FNHfYQdzV67lrYMcf4G0WTSfhIY 7KLCkuNseDoRebM95Fxe+PGNvbG egy1LtTbbzg6sng0vgjZe2 ZyTgGOVafsEdeJhxGRI2u9BlJr0 0X66nQMfcNTGeRKUeATMaULQoxR cvhu1rpV2uOb9+PGNvbCB3 vOZ5vT5lDAOdTeY3BNnfW901KrL bxKAhMmcaq8uvi4irfEa8XfRoAM XfmnWuaEdlGAG8z8MlWv63 K11jFUgmIVYiRHUzSPDvYPLexHu alp1xdT4mCe5+SB1cc6ufpv39gN 48dHI+SUGmYYR6cPtfZTgf MHAwgQ4qNDzkJoY5LVYbJyLfhI5 2oDSuOPwlWf2dqVdnvYoaDX3eFS Ocpcupq374ZaYix9ymEKRr lBDnOTzzJFH7D22gw3A9PCLfFDB kMFH5xCF4dX3smMqgafwhbYWgtS dvasUdoApnVFbsIOgzA242 IHRvcDsnPlBhdGllbnQgTmFtZTo 7J5OtWpr5WRWsiSmrFW4csZYrVP qxDk4qsJpfzKizKM8dDZCc sfkor644UuIgf0ndYNVkfAAbEDw uQUC4R28gr8Y5KQUrJABnMJC0uB U7qJ6tfZuyvahoxRWydOll agMomHiiWNbgMIsbL775XIBjsFx lFdByhzPmQDRfhYB3GY88TP82dG Fml1X6zAS2Y2ZeUHRvuetm cccujFV8HKZdWJXutH05Qn7fuCe jFe7eARQxBNM4CIAxtQOdW6KxcM 6sNmImCCYhQNOnK5HesMKb DRoyN024OIbxShL9ZUOicrOyJ9J dRUZofUgrWjE7p2N7Tg6QB5P9CK 38WW07lRZow2S5zZY8F0Mj LBNjvwxfleymqEF4NWOlXDIlmG4 4Kd4zbKdsBi5mAPNeVAB6TMLxxW MdJ4FyaG6zZqOlBLNoTJDg K8BdgHVfATjeW159NSqnKkX8AVM nctOeG3OzTBUtbQftAsC8b6S3Cx 3NOMy1PJ38SH98bSMar2W8 jQL8H3UhOVCnzmupzrxcjZG4LGZ tLHMnoR71Ul9eqCdfXh2kSFQuVC E5ZVYobVPvT7TmtF6nZbUz WAIgCPQrM4LxxLVuWDuoK971DVj dQdG3WYHvyyBaI2KoOEXnbGitAr Y4y4J3Ao8QULReAQ79TBN0 tHA9BF21TG17N1QuVeiscXBbmFG +PHRhYmxlIHdpZHRoPScxMDAlJy OevEcnZZ9dLo3jPZEwIVIv bBxpnEUiBxYtw1bwCDXkOSqsVG0 hpWomX7SvuJA0TGMuk5u9Fi52W1 4dJ8UitMX+PSOmwQJ2aQJ4 vD4pYlWvGeT1RMybB049DfNnzDW bUlyfk0oug9dzuLb3OoV4VNMrre VijCzgGRV8n2WjQf29N31g IHdpZHRoPSIxNSUiIHZhbGlnbj0 abI3oKn0+TWBctLF6oOQ8pG0iUf ZlSaZ2NKqmQ730WzMmdLQq Feqlw1ybv3fkbTl8EwIzUVQnlcD jqLaaWMN0e2MkQl94Y0DmjDznt6 JjDml0bz85gQLdu5O5fCE7 H1UwXSLyvjlnqOGfuNlpTD1aGJQ dffgaLBPdyA3iASWhL1o1RnXwYn I6GLkcU4UxerV3LNNcyERe QMsdCCB2X75yz1K1XRVwQTEnJLE 1vVG2iU9qzSmdvtbkfLSjkWhsoj TumJvnHRukWZgmB437KYIr sEuhSEXlyR7jUVMafJWnsQngPA0 iTCRcdrevScdPVgWBN1HXLSWIXA 2YDIWNU5HDRVuOASHIONME RTwvdGQ+FBRpPGN7bCacSOcdXXN trK9vAIRsN0t8KsLhGjK3FKxsZ7 KmHOLxtdimXy50pW3xGmTo XzS4BJywC1MmglI4RHAxdWZqZWo gFTN1H41jt0V5QRHqNMRqVFV9jN I4yN8kmEyxvgvbqAWyyOoa yiXfcIigVOagSUirM620HXBuuQt tOdRlEmX0EaGmWRV9B8KeGjq2JX BwdHwkAT7wfEQuEChhDw8e sSrkvEvdVZ0iCOCalcuwQBChnX8 vUXUlwPTeyRheIW8hLQHuvuuhu2 78MbDiVFJ1ZFGubSPhM2Gu tE3eIwTmSRZyBLGsV9WhqLAoRWb wU053DGsqKyM4MSAhfqFhH8ZuWU MiuWmvDzY0t7N6Pz9hKdYJ ZWFyczwvdGQ+KSHsBNZ8rAeeHDm tCTOxhP6gTDAuS0r6KsGoJkZ5EA pvD0KgNSIglzorWw38xP6u IlWjPxE9XZnkA3XzjlM0ATWvoXE nYCkrBWN3K94oh6C6XJGeYPDwFY E5hKS5bX5pnTmudacbyBHm iClrwfVneMfmTJhzFEckW000OFV vcDsnPkZFTUFMRTwvdGQ+PHRkIH H4eDgbIGyeVHEawN9fYJDv C9a9PqEqCdP3EOugJ2OvHRGyewz wIj71sV9aUtLfXnQ6TMynW4Qnsm S5ZCOxpKThAGqvCXN5M71f y2B6PVOyBJXnFLN4xPB2cT8wvOf nbjogbGVmdDsgdmVydGljYWwtYW xvJ704WYRhvSeoHl6BJB59 HV51N0NaKzmjbKGoxYE+PHRhYmx lIHdpZHRoPScxMDAlJyBzdHlsZT 8lHd7oNCAvIEZciQcncTGg ZlDig5msFUKwGRbfHU3bgGxpQ5M qxWO4NIFbr2k1Re43K43aQ9FtjY A+CSSiiEK4uWM2pX6lLzIq VrD0QHdzP544KiHftKVlAdlvx9u nk9jwvPi1ZcGkAAXlmgNbuKyoPN B9x4CvKn09H88mTQmeMZVy PPLgGNHzSPTddJnffr8qnC2fKg8 +BBFlbYB2gHX7rH0oPiRlBoP0AX hpS345MqStvFWmFoosZ00d E8XsoJZ+QWFgHxd6OFDjhAmaIB9 ktPOpOYkkGn9jINK5RpGvRcFuHJ pmQ0GnJDNdnvwtphatxBM4 GZKfSONkrB85Fo4xcCjrYn6oWNZ sRRW9JUGssDXnG3CdiD0yAxFtPT SwQUNpR7ZnzFReRDsdP899 OZqpXvA2GAUkigWgU6QzJACxcFh tLrP1b9X6Re9NpLmnsTBkRX4xLm EfMLo6B7VsPvd9BPAltSnb XN1efKXyVQsfSz5raBdahYvhAZ5 sCERilizfc352BfShc2sxUFAtsY ZfCHqhDWY5P44tb3T1EGFa ZDPnUCZ9oTE1fB6yaTtpqigqiWH enQyhsjJlzUxuBIsmQChbK097OJ VblTobZpPOJlr1W4QoYiz6 UUNdaNbaDJ6tnNHzYGwdQh2jlZn ngZexMY5lSZJaxoreg222YlFqu0 fxDUBeeZLfEEcjNXK1B43s g1A9ELHyNANcYRH7kCM8aL7lsYq nbjogbGVmdDsgdmVydGljYWwtYW iaV670QKMxcKecFd9OCrg4 R9VuHso3QIAofDseRY8dtTZqMDg cLx1nkSzvePypAY3zPYPnzkryk3 93FiIxb0jgVZUkwULsTLgi RPB3K61gf6B3SYOyNVWcHKV0rUG 3iK8saZjaowssjZOxbXyyaoDpkW tnEFlbXAdfE720PIZmlEoc PlBheWVyOjwvdGQ+EK06fj80C2P oJcdoPui9IKGrWDF4hNN4cU9oEY FnNHlgn3Z1tSP0M4ZimkMs ci1 (more content not included)... Normal [facility] ED Clinical Summaryon 2021 ED Clinical Summary [facility] ? Urgent Care [address] [place] [address] Clinical Summary PERSON INFORMATION Name: SHEYLA LEA Age: 16 Years Sex: FEMALE : 2005 MRN: Acct#: Visit Reason: UC - Ankle/Foot/Toe Pain or Swelling; UC - Foot/Toe Injury; RT FOOT PAIN Arrival: 02/19/2022 19:02:05 Discharge: 02/19/2022 20:18:00 LOS: 000 01:16 Check In: 02/19/2022 19:02:05 Checkout: 02/19/2022 20:18:00 Address: [address] [place], [place] [id number] PCP: KEVIN STOKES PROVIDER INFORMATION Provider Role Assigned Unassigned Ellen Mac OLIVE PACKER Nurse 02/19/2022 19:06:02 Levy Bee ED PA [...] Pain Follow-Up: With: Address: When: KEVIN STOKES [address] [place], [place] [id number] Business (1) Comments: Radiologist interpretation of the [...] pain continues recommended to follow-up with your orthopedic nurse or can follow-up with our local orthopedic nurse Dr. Ramírez's office is located at [address] [place] [address] Continue on the acronym R.I.C.E. Rest, Ice Compression, Elevation this will help with pain Can ice for 15-20 minutes every 3 hours Can take 600mg of motrin/ibuprofen every 6-8 hours DIAGNOSIS: Ankle pain; Foot pain Patient Understands: Yes - Patient/family/caregiver verbalizes understanding of instructions given Comment: Normal [facility] ED Patient Summaryon 022 ED Patient Summary [facility] ? Urgent Care [address] [place] [id number] PATIENT DISCHARGE INSTRUCTIONS Patient Information Name: SHEYLA LEA Age: 16 Years Date of : 2005 Reason For Visit: UC - Ankle/Foot/Toe Pain or Swelling; UC - Foot/Toe Injury; RT FOOT PAIN Arrival Time: 02/19/2022 19:02:05 Primary Care Physician: KEVIN STOKES Attending Physician: Levy Bee Comment: Patient Education With: Address: When: KEVIN NILAYSiomara [address] [place] [address] [facility] (1) Comments: Radiologist interpretation of the x-rays negative for fracture or dislocation No weightbearing for the next 2 days, can then slowly begin to introduce weightbearing as tolerated. Wear the Evon wrap while active, remove when sleeping, napping or showering Loosen or remove the evon wrap with any numbness or tingling, or blue discoloration If the pain continues recommended to follow-up with your orthopedic nurse or can follow-up with our local orthopedic nurse Dr. Ramírez's office is located at [address] [place] [address] Continue on the acronym R.I.C.E. Rest, Ice [...] clean and dry. General instructions ? Take ynhz-xqa-mdumyye and prescription medicines only as told by [...] provider. Document Revised: 08/06/2021 Document Reviewed: 08/06/2021 [employer] Patient Education ? 2021 [employer] Ankle Pain The ankle joint holds [...] your an (more content not included)... Normal [facility] Urgent Care Note- Provideron 02-19-2022 Urgent Care Note- Provider Patient: SHEYLA LEA Age: 16 years Sex: FEMALE : 2005 Associated Diagnoses: Ankle pain; Foot pain Author: Levy Bee Basic Information Time seen: Date & time 02/19/2022 19:06:00. History source: Patient. History limitation: None. History of Present Illness Patient is a 16-year-old female complaint of right foot and ankle pain. States he jumped during sikh today and landed awkwardly on her foot [...] been selected or recorded.. Surgical history: Myringotomy ([id number]). History of tonsillectomy ([id number]).. Family history: No family history items have [...] wrap. Impression and Plan Diagnosis Ankle pain ([id number] M25.579, Discharge, Medical) Foot pain (QXG79-AN M79.673, Discharge, Medical) Plan Patient was given the following educational materials: Ankle Pain, Foot Pain, Foot Pain, Ankle Pain, Foot Pain, Ankle Pain. Follow up with: KEVIN STOKES, KEVIN STOKES Radiologist interpretation of the x-rays negative for fracture or dislocation If the pain continues recommended to follow-up with your orthopedic nurse or can follow-up with our local orthopedic nurse Dr. Ramírez's office is located at [address] [place] [address] There is no obvious fracture or deformity on review the x-ray today. Official radiological interpretation will be available in the next 24-36 hours you will be notified of any discrepancy in the interpretation. No weightbearing for the next 2 days, can then slowly b (more content not included)... Normal [facility]gent Care [place] 022 Urgent Care Record [facility] ? Urgent Care [address] [place], [place] [id number] PATIENT DISCHARGE INSTRUCTIONS Patient Information Name: SHEYLA LEA Age: 16 Years Date of : 2005 Reason For Visit: UC - Ankle/Foot/Toe Pain or Swelling; UC - Foot/Toe Injury; RT FOOT PAIN Arrival Time: 02/19/2022 19:02:05 Primary Care Physician: KEVIN STOKES Attending Physician: Levy Bee Comment: Visit Diagnosis: Diagnoses This Visit Ankle pain (M25.579) Foot pain (M79.673) UC - Ankle/Foot/Toe Pain or Swelling ([id number]) UC - Foot/Toe Injury ([id number]) If you received any narcotics, sedation, or [...] documents With: Address: When: KEVIN STOKES [address] [id number] Business (1) Comments: Radiologist interpretation of the [...] pain continues recommended to follow-up with your orthopedic nurse or can follow-up with our local orthopedic nurse Dr. Ramírez's office is located at [address] [place] [address] Continue on the acronym R.I.C.E. Rest, Ice Compression, Elevation this will help with pain Can ice for 15-20 minutes every 3 hours Can take 600mg of motrin/ibuprofen every 6-8 hours Medication Information: The exam and treatment you received today in the [facility] were for an urgent problem and are not intended as complete care. It is important for you to follow up with a doctor, nurse practitioner, or physician?s assistant professor of art for ongoing care. If your symptoms become [...] so we can reach you if necessary. [facility] has provided you with a complete list of medications post discharge. Please inform your kiln tester/provider of your visit and for further instruction [...] are safe fo (more content not included)... [facility] XR Ankle Complete Righton XR Ankle Complete [...] DT/TM: 02/19/22 7:52 Signed (Electronic Signature): Tavo yBnum MD 02/19/22 7:53 pm Technologist: REGAN [facility] XR Foot Complete Righton XR Foot Complete [...] Tavo Bynum MD 02/19/22 8:01 pm Technologist: [facility] Vital Signs Date Time Vital Sign Value Performing Clinician Facility 12-07-2024 15:22-0400 Body mass index (BMI) [Ratio] 41.24 kg/m2 [facility] 12-07-2024 15:040 Body weight 105.6 kg [facility] 11-22-2024 13:45-0400 Body mass index (BMI) [Ratio] 40.23 kg/m2 Nichelle NAVA Work Phone: [facility] 11-22-2024 13:45-0400 Body weight 103.02 kg Nichelle NAVA Work Phone: [facility] 11-22-2024 13:45-0400 Diastolic blood pressure 80 mm[Hg] Nichelle Sanchez PA Work Phone: [facility] 11-22-2024 13:45-0400 Systolic blood pressure 128 mm[Hg] Nichelle Sanchez PA Work Phone: [facility] 04-10-2024 09:35-0500 Body mass index (BMI) [Ratio] 36.99 kg/m2 Gerardo Viri DO Work Phone: [facility] 04-10-2024 09:35-0500 Body weight 94.71 kg Gerardo Viri DO Work Phone: [facility] 04-10-2024 09:35-0500 Diastolic blood pressure 74 mm[Hg] Gerardo Viri DO Work Phone: [facility] 04-10-2024 09:35-0500 Systolic blood pressure 120 mm[Hg] Gerardo Viri DO Work Phone: [facility] 03-31-2024 08:44-0500 Body height 160 cm Anita Elmore APRN-ORGANISATION AND METHODS ANALYST Work Phone: [facility] 03-31-2024 08:44-0500 Body mass index (BMI) [Ratio] 36.6 kg/m2 Anita Elmore CANDY DECORATOR-ORGANISATION AND METHODS ANALYST Work Phone: [facility] 03-31-2024 08:44-0500 Body temperature 97.59 [degF] Anita Elmore CANDY DECORATOR-ORGANISATION AND METHODS ANALYST Work Phone: [facility] 03-31-2024 08:44-0500 Body weight 93.71 kg Anita Elmore CANDY DECORATOR-ORGANISATION AND METHODS ANALYST Work Phone: [facility] 03-31-2024 08:44-0500 Diastolic blood pressure 70 mm[Hg] Anita Elmore CANDY DECORATOR-ORGANISATION AND METHODS ANALYST Work Phone: [facility] 03-31-2024 08:44-0500 Heart rate 90 /min Anita Elmore APRN-ORGANISATION AND METHODS ANALYST Work Phone: [facility] 03-31-2024 08:44-0500 Respiratory rate 18 /min Anita Elmore APRN-ORGANISATION AND METHODS ANALYST Work Phone: [facility] 03-31-2024 08:44-0500 SaO2% (BldA) [Mass fraction] 100 % Anita Elmore APRN-ORGANISATION AND METHODS ANALYST Work Phone: [facility] 03-31-2024 08:44-0500 Systolic blood pressure 116 mm[Hg] Anita Elmore CANDY DECORATOR-ORGANISATION AND METHODS ANALYST Work Phone: [facility] 03-07-2024 14:44-0400 Body height 160 cm Gerardo Viri DO Work Phone: [facility] 03-07-2024 14:44-0400 Body mass index (BMI) [Ratio] 36.67 kg/m2 Gerardo Viri DO Work Phone: [facility] 03-07-2024 14:44-0400 Body weight 93.89 kg Gerardo Viri [place] Work Phone: [facility] 03-07-2024 14:44-0400 Diastolic blood pressure 82 mm[Hg] Gerardo Viri DO Work Phone: [facility] 03-07-2024 14:44-0400 Systolic blood pressure 138 mm[Hg] Gerardo Viri DO Work Phone: [facility] 02-18-2024 11:58-0400 Body height 160 cm Anitalarry Elmore CANDY DECORATOR-ORGANISATION AND METHODS ANALYST Work Phone: [facility] 02-18-2024 11:58-0400 Body mass index (BMI) [Ratio] 35.78 kg/m2 Anita Catarina CANDY DECORATOR-ORGANISATION AND METHODS ANALYST Work Phone: [facility] 02-18-2024 11:58-0400 Body temperature 98.1 [degF] Anita Catarina CANDY DECORATOR-ORGANISATION AND METHODS ANALYST Work Phone: [facility] 02-18-2024 11:58-0400 Body weight 91.63 kg Anita Catarina CANDY DECORATOR-ORGANISATION AND METHODS ANALYST Work Phone: [facility] 02-18-2024 11:58-0400 Diastolic blood pressure 60 mm[Hg] Anita Catarina CANDY DECORATOR-ORGANISATION AND METHODS ANALYST Work Phone: [facility] 02-18-2024 11:58-0400 Heart rate 79 /min Anita Catarina CANDY DECORATOR-ORGANISATION AND METHODS ANALYST Work Phone: [facility] 02-18-2024 11:58-0400 Respiratory rate 18 /min Anita Catarina CANDY DECORATOR-ORGANISATION AND METHODS ANALYST Work Phone: [facility] 02-18-2024 11:58-0400 SaO2% (BldA) [Mass fraction] 99 % Anita Catarina CANDY DECORATOR-ORGANISATION AND METHODS ANALYST Work Phone: [facility] 02-18-2024 11:58-0400 Systolic blood pressure 100 mm[Hg] Anita Catarina CANDY DECORATOR-ORGANISATION AND METHODS ANALYST Work Phone: [facility] 02-03-2024 13:24-0400 Body height 160 cm Anita Elmore CANDY DECORATOR-ORGANISATION AND METHODS ANALYST Work Phone: [facility] 02-03-2024 13:24-0400 Body mass index (BMI) [Ratio] 35.76 kg/m2 Anita Elmore CANDY DECORATOR-ORGANISATION AND METHODS ANALYST Work Phone: [facility] 02-03-2024 13:24-0400 Body temperature 98.8 [degF] Anita Elmore CANDY DECORATOR-ORGANISATION AND METHODS ANALYST Work Phone: [facility] 02-03-2024 13:24-0400 Body weight 91.58 kg Anita Elmore CANDY DECORATOR-ORGANISATION AND METHODS ANALYST Work Phone: [facility] 02-03-2024 13:24-0400 Diastolic blood pressure 70 mm[Hg] Anita Elmore CANDY DECORATOR-ORGANISATION AND METHODS ANALYST Work Phone: [facility] 02-03-2024 13:24-0400 Heart rate 85 /min Anita Elmore CANDY DECORATOR-ORGANISATION AND METHODS ANALYST Work Phone: [facility] 02-03-2024 13:24-0400 Respiratory rate 18 /min Anita Elmore CANDY DECORATOR-ORGANISATION AND METHODS ANALYST Work Phone: [facility] 02-03-2024 13:24-0400 SaO2% (BldA) [Mass fraction] 99 % Anita Elmore CANDY DECORATOR-ORGANISATION AND METHODS ANALYST Work Phone: [facility] 02-03-2024 13:24-0400 Systolic blood pressure 100 mm[Hg] Anita Elmore CANDY DECORATOR-ORGANISATION AND METHODS ANALYST Work Phone: [facility] 01-25-2024 14:23-0400 Body mass index (BMI) [Ratio] 36.14 kg/m2 Gerardo Viri DO Work Phone: [facility] 01-25-2024 14:23-0400 Body weight 92.53 kg Gerardo Viri DO Work Phone: [facility] 01-25-2024 14:23-0400 Diastolic blood pressure 78 mm[Hg] Gerardo Viri DO Work Phone: [facility] 01-25-2024 14:23-0400 Systolic blood pressure 126 mm[Hg] Gerardo Viri DO Work Phone: [facility] 11-23-2023 16:09-0400 Body height 160 cm Alphonso Furlong DO Work Phone: [facility] 11-23-2023 16:09-0400 Body mass index (BMI) [Ratio] 38.85 kg/m2 Alphonso Furlong DO Work Phone: [facility] 11-23-2023 16:090400 Body temperature 98.2 [degF] Alphonso Furlong DO Work Phone: [facility] 11-23-2023 16:09-0400 Body weight 99.47 kg Alphonso Furlong DO Work Phone: [facility] 11-23-2023 16:09-0400 Diastolic blood pressure 60 mm[Hg] Alphonso Furlong DO Work Phone: [facility] 11-23-2023 16:09-0400 Heart rate 82 /min Alphonso Furlong DO Work Phone: [facility] 11-23-2023 16:09-0400 Respiratory rate 20 /min Alphonso Furlong DO Work Phone: [facility] 11-23-2023 16:09-0400 SaO2% (BldA) [Mass fraction] 98 % Alphonso Furlong DO Work Phone: [facility] 11-23-2023 16:09-0400 Systolic blood pressure 114 mm[Hg] Alphonso Furlong DO Work Phone: [facility] 10-28-2023 16:31-0400 Body height 160 cm Anita Elmore APRN-ORGANISATION AND METHODS ANALYST Work Phone: [facility] 10-28-2023 16:31-0400 Body mass index (BMI) [Ratio] 39.13 kg/m2 Anita Elmore APRN-ORGANISATION AND METHODS ANALYST Work Phone: [facility] 10-28-2023 16:31-0400 Body temperature 98.71 [degF] Anita Elmore APRN-ORGANISATION AND METHODS ANALYST Work Phone: [facility] 10-28-2023 16:31-0400 Body weight 100.2 kg Anita Elmore APRN-ORGANISATION AND METHODS ANALYST Work Phone: [facility] 10-28-2023 16:31-0400 Diastolic blood pressure 60 mm[Hg] Anita Elmore APRN-ORGANISATION AND METHODS ANALYST Work Phone: [facility] 10-28-2023 16:31-0400 Heart rate 71 /min Anita Elmore APRN-ORGANISATION AND METHODS ANALYST Work Phone: [facility] 10-28-2023 16:31-0400 Respiratory rate 18 /min Anita Elmore APRN-ORGANISATION AND METHODS ANALYST Work Phone: [facility] 10-28-2023 16:31-0400 SaO2% (BldA) [Mass fraction] 98 % Anita Elmore APRN-ORGANISATION AND METHODS ANALYST Work Phone: [facility] 10-28-2023 16:31-0400 Systolic blood pressure 94 mm[Hg] Anita Elmore APRN-ORGANISATION AND METHODS ANALYST Work Phone: [facility] 09-28-2023 11:36-0400 Body height 160 cm Lima Toussaint CANDY DECORATOR-LIFT TEAM TECHNICIAN Work Phone: [facility] 09-28-2023 11:36-0400 Body mass index (BMI) [Ratio] 38.12 kg/m2 Lima Toussaint CANDY DECORATOR-LIFT TEAM TECHNICIAN Work Phone: [facility] 09-28-2023 11:36-0400 Body temperature 98.6 [degF] Lima Toussaint APRN-LIFT TEAM TECHNICIAN Work Phone: [facility] 09-28-2023 11:36-0400 Body weight 97.61 kg Lima Toussaint APRN-LIFT TEAM TECHNICIAN Work Phone: [facility] 09-28-2023 11:36-0400 Diastolic blood pressure 60 mm[Hg] Lima Toussaint APRN-LIFT TEAM TECHNICIAN Work Phone: [facility] 09-28-2023 11:36-0400 Heart rate 86 /min Lima Toussaint APRN-LIFT TEAM TECHNICIAN Work Phone: [facility] 09-28-2023 11:36-0400 SaO2% (BldA) [Mass fraction] 98 % Lima Toussaint APRN-LIFT TEAM TECHNICIAN Work Phone: [facility] 09-28-2023 11:36-0400 Systolic blood pressure 110 mm[Hg] Lima Toussaint APRN-LIFT TEAM TECHNICIAN Work Phone: [facility] 08-25-2023 13:04-0400 Body height 160 cm Anita Catarina CANDY DECORATOR-ORGANISATION AND METHODS ANALYST Work Phone: [facility] 08-25-2023 13:04-0400 Body mass index (BMI) [Ratio] 38.48 kg/m2 Anita Elmore CANDY DECORATOR-ORGANISATION AND METHODS ANALYST Work Phone: [facility] 08-25-2023 13:04-0400 Body temperature 98.29 [degF] Anitalarry Elmore CANDY DECORATOR-ORGANISATION AND METHODS ANALYST Work Phone: [facility] 08-25-2023 13:04-0400 Body weight 98.52 kg Anita Catarina CANDY DECORATOR-ORGANISATION AND METHODS ANALYST Work Phone: [facility] 08-25-2023 13:04-0400 Diastolic blood pressure 62 mm[Hg] Anita Catarina CANDY DECORATOR-ORGANISATION AND METHODS ANALYST Work Phone: [facility] 08-25-2023 13:04-0400 Heart rate 92 /min Anita Catarina CANDY DECORATOR-ORGANISATION AND METHODS ANALYST Work Phone: [facility] 08-25-2023 13:04-0400 SaO2% (BldA) [Mass fraction] 97 % Anita Elmore CANDY DECORATOR-ORGANISATION AND METHODS ANALYST Work Phone: [facility] 08-25-2023 13:04-0400 Systolic blood pressure 110 mm[Hg] Anita Elmore CANDY DECORATOR-ORGANISATION AND METHODS ANALYST Work Phone: [facility] 08-25-2023 07:09-0400 Body height 160 cm Pacc 3 Work Phone: [facility] 08-25-2023 07:09-0400 Body temperature 97.59 [degF] Pacc 3 Work Phone: [facility] 08-25-2023 07:09-0400 Body weight 98.7 kg Pacc 3 Work Phone: [facility] 08-25-2023 07:09-0400 Diastolic blood pressure 63 mm[Hg] Pacc 3 Work Phone: [facility] 08-25-2023 07:09-0400 Heart rate 66 /min Pacc 3 Work Phone: [facility] 08-25-2023 07:09-0400 SaO2% (BldA) [Mass fraction] 100 % Pacc 3 Work Phone: [facility] 08-25-2023 07:09-0400 Systolic blood pressure 116 mm[Hg] Pacc 3 Work Phone: [facility] 04-02-2023 07:15-0500 Body height 160.02 cm Aime Goff Other [employer] Other 04-02-2023 07:15-0500 Body mass index (BMI) [Ratio] 40.07 kg/m2 [email or web address] Other [employer] Other 04-02-2023 07:15-0500 Body temperature 99.1 [degF] AimeBigBadtori Other [employer] Other 04-02-2023 07:15-0500 Body weight 102.6 kg Aime Schwerer Other [employer] Other 04-02-2023 07:15-0500 Diastolic blood pressure 78 mm[Hg] Aime Schwerer Other [employer] Other 04-02-2023 07:15-0500 SaO2% (BldA) [Mass fraction] 99 % Aime Schwerer Other [employer] Other 04-02-2023 07:15-0500 Systolic blood pressure 128 mm[Hg] Aime Schwerer Other [employer] Other 01-15-2023 10:45-0400 Body height 158.75 cm Aime Schwerer Other [employer] Other 01-15-2023 10:45-0400 Body mass index (BMI) [Ratio] 40.33 kg/m2 Aime Schwerer Other [employer] Other 01-15-2023 10:45-0400 Body weight 101.65 kg Aime Schwerer Other [employer] Other 01-15-2023 10:45-0400 Diastolic blood pressure 78 mm[Hg] Aime Schwerer Other [employer] Other 01-15-2023 10:45-0400 Respiratory rate 18 /min Aime Schwerer Other [employer] Other 01-15-2023 10:45-0400 SaO2% (BldA) [Mass fraction] 100 % Aime Goff Other [facility] Other 01-15-2023 10:45-0400 Systolic blood pressure 138 mm[Hg] Aime Goff Other [facility] Other 05-28-2022 08:32-0500 Body height 167.6 cm Latasha Bobo MD Work Phone: [facility] 05-28-2022 08:32-0500 Body mass index (BMI) [Percentile] Per age and sex 97.14 % Latasha Bobo MD Work Phone: [facility] 05-28-2022 08:32-0500 Body weight 93.44 kg Latasha Bobo MD Work Phone: [facility] 04-15-2022 14:01-0500 Body height 160 cm Mana Aguilar APRN.ORGANISATION AND METHODS ANALYST Work Phone: [facility] 04-15-2022 14:01-0500 Body mass index (BMI) [Percentile] Per age and sex 98.09 % Mana Aguilar APRN.ORGANISATION AND METHODS ANALYST Work Phone: [facility] 04-15-2022 14:01-0500 Body weight 91.63 kg Mana Abiodunsuto CANDY DECORATOR.ORGANISATION AND METHODS ANALYST Work Phone: [facility] 04-15-2022 14:01-0500 Diastolic blood pressure 74 mm[Hg] Mana Bjvissuto CANDY DECORATOR.ORGANISATION AND METHODS ANALYST Work Phone: [facility] 04-15-2022 14:01-0500 Heart rate 77 /min Mana Abiodunsuto [place].ORGANISATION AND METHODS ANALYST Work Phone: [facility] 04-15-2022 14:01-0500 Systolic blood pressure 124 mm[Hg] Mana Bonvissuto CANDY DECORATOR.ORGANISATION AND METHODS ANALYST Work Phone: [facility] Encounters Encounter Date Encounter Type Care Provider Facility Start: 12-07-2024 End: 12-07-2024 Office outpatient visit 5 minutes Viri Nurse [facility] Comment on above: GA: [id number] Start: 12-07-2024 End: 12-07-2024 ambulatory NICHELLE SANCHEZ Not Available Start: 11-30-2024 End: 11-30-2024 ambulatory NICHELLE SANCHEZ Not Available Start: 11-22-2024 End: 11-22-2024 Bamboo flowsheet Nichelle Sanchez PA Work Phone: [facility] Start: 11-22-2024 End: 11-22-2024 Bamboo flowsheet Nichelle NAVA Work Phone: [facility] Start: 11-22-2024 End: 11-22-2024 ambulatory NICHELLE SANCHEZ Not Available Start: 11-22-2024 End: 11-22-2024 Office outpatient visit 15 minutes Nichelle NAVA Work Phone: [facility] Comment on above: Nausea (Primary Dx); Cramping affecting , antepartum (HHS-HCC); Missed menses Start: 11-18-2024 End: 11-18-2024 Clinisync Result Encounter Gerardo Viri DO Work Phone: [facility] Unsolicited Start: 11-18-2024 End: 11-18-2024 Clinisync Result Encounter Gerardo Viri DO Work Phone: [facility] Unsolicited Start: 11-13-2024 End: 11-13-2024 Clinisync Result Encounter Gerardo Viri DO Work Phone: [facility] Unsolicited Start: 11-13-2024 End: 11-13-2024 Clinisync Result Encounter Gerardo Viri DO Work Phone: [facility] Unsolicited Start: 10-12-2024 End: 10-12-2024 Emergency department patient visit REGINO [facility] Start: 05-09-2024 End: 05-09-2024 Bamboo flowsheet Loretta Winkler MD Work Phone: [facility] Start: 05-09-2024 End: 05-09-2024 Bamboo flowsheet Loretta Winkler MD Work Phone: [facility] Start: 05-09-2024 End: 05-09-2024 ambulatory LORETTA WINKLER Not Available Start: 04-26-2024 End: 05-01-2024 Refill Anita Natalia Elmore CANDY DECORATOR-ORGANISATION AND METHODS ANALYST Work Phone: [facility] Start: 04-10-2024 End: 04-10-2024 Bamboo flowsheet Gerardo Viri DO Work Phone: [facility] Start: 04-10-2024 End: 04-10-2024 Bamboo flowsheet Gerardo Viri DO Work Phone: [facility] Start: 04-10-2024 End: 04-10-2024 ambulatory GERARDO VIRI Not Available Start: 04-10-2024 End: 04-10-2024 Office outpatient visit 15 minutes Gerardo Viri DO Work Phone: [facility] Comment on above: Encounter for weight management Start: 04-03-2024 End: 04-03-2024 Orders Only Anita L Catarina CANDY DECORATOR-ORGANISATION AND METHODS ANALYST Work Phone: [facility] Comment on above: Postoperative hypoth yroidism (Primary Dx) Start: 03-31-2024 End: 03-31-2024 ambulatory [facility] Start: 03-31-2024 End: 03-31-2024 Office outpatient visit 15 minutes Anita L Catarina CANDY DECORATOR-ORGANISATION AND METHODS ANALYST Work Phone: [facility] Comment on above: Postoperative hypoth yroidism (Primary Dx); Acute nonintractable headache, unspecified headache type; Gastroesophageal reflux disease, unspecified whether esophagitis present; Immunization due Start: 03-31-2024 End: 03-31-2024 ambulatory [facility] Start: 03-20-2024 End: 03-20-2024 Clinisync Result Encounter Gerardo Viri DO Work Phone: [facility] Unsolicited Start: 03-20-2024 End: 03-20-2024 Clinisync Result Encounter Gerardo Viri DO Work Phone: [facility] Unsolicited Start: 03-18-2024 End: 03-20-2024 Refill Anitalarry Elmoer CANDY DECORATOR-ORGANISATION AND METHODS ANALYST Work Phone: [facility] Start: 03-17-2024 End: 03-17-2024 Clinisync Result Encounter Gerardo Viri DO Work Phone: [facility] Unsolicited Start: 03-17-2024 End: 03-17-2024 Clinisync Result Encounter Gerardo Viri DO Work Phone: [facility] Unsolicited Start: 03-15-2024 End: 03-15-2024 Clinisync Result Encounter Gerardo Viri DO Work Phone: [facility] Unsolicited Start: 03-15-2024 End: 03-15-2024 Clinisync Result Encounter Gerardo Viri DO Work Phone: [facility] Unsolicited Start: 03-14-2024 End: 03-14-2024 Clinisync Result Encounter Gerardo Viri DO Work Phone: [facility] Unsolicited Start: 03-14-2024 End: 03-14-2024 Clinisync Result Encounter Gerardo Viri DO Work Phone: [facility] Unsolicited Start: 03-13-2024 End: 03-13-2024 Orders Only Anita Natalia Elmore CANDY DECORATOR-ORGANISATION AND METHODS ANALYST Work Phone: [facility] Start: 03-07-2024 End: 03-07-2024 Bamboo flowsheet Gerardo Viri DO Work Phone: [facility] Start: 03-07-2024 End: 03-07-2024 Bamboo flowsheet Gerardo Burto DO Work Phone: [facility] Start: 03-07-2024 End: 03-07-2024 Office outpatient visit 15 minutes Gerardo Burto DO Work Phone: [facility] Comment on above: Mood disorder (CMS/H CC); Anxious mood; Hormone imbalance; Irregular periods; Weight gain Start: 03-07-2024 End: 03-07-2024 ambulatory GERARDO BURTO Not Available Start: 03-03-2024 End: 03-03-2024 ambulatory [facility] Facility:[facility] Start: 03-01-2024 End: 03-02-2024 Refill Anita L Catarina CANDY DECORATOR-ORGANISATION AND METHODS ANALYST Work Phone: [facility] Start: 02-23-2024 End: 02-23-2024 Telephone encounter Asad Sam CMA [facility] Start: 02-21-2024 End: 02-21-2024 Orders Only Anita L Catarina CANDY DECORATOR-ORGANISATION AND METHODS ANALYST Work Phone: [facility] Comment on above: Postoperative hypoth yroidism (Primary Dx) Start: 02-18-2024 End: 02-18-2024 [facility] Start: 02-18-2024 End: 02-18-2024 Office outpatient visit 15 minutes Anita L Catarina CANDY DECORATOR-ORGANISATION AND METHODS ANALYST Work Phone: [facility] Comment on above: Gastroesophageal ref lux disease, unspecified whether esophagitis present (Primary Dx); Postoperative hypothyroidism; Acute hemorrhoid; Delayed gastric emptying; Influenza vaccination administered at current visit Start: 02-18-2024 End: 02-18-2024 ambulatory [facility] Start: 02-17-2024 End: 02-18-2024 Refill Anita L Catarina CANDY DECORATOR-ORGANISATION AND METHODS ANALYST Work Phone: [facility] Start: 02-10-2024 End: 02-10-2024 Orders Only Anita Natalia Elmore CANDY DECORATOR-ORGANISATION AND METHODS ANALYST Work Phone: [facility] Comment on above: Esophageal dysphagia (Primary Dx); Gastroesophageal reflux disease without esophagitis Start: 02-04-2024 End: 02-04-2024 Orders Only Anitalarry Elmore CANDY DECORATOR-ORGANISATION AND METHODS ANALYST Work Phone: [facility] Start: 02-04-2024 End: 02-05-2024 Evaluation and management of inpatient [facility] Start: 02-03-2024 End: 02-03-2024 ambulatory NICHELLE SANCHEZ Not Available Start: 02-03-2024 End: 02-03-2024 Online digital e/m svc est pt <7 d 5-10 minutes Nichelle NAVA Work Phone: [facility] Comment on above: Weight gain (Primary Dx) Start: 02-03-2024 End: 02-03-2024 Bamboo flowsheet Nichelle NAVA Work Phone: [facility] Start: 02-03-2024 End: 02-03-2024 Bamboo flowsheet Nichelle NAVA Work Phone: [facility] Start: 02-03-2024 End: 02-03-2024 Office outpatient visit 25 minutes Anita Elmore CANDY DECORATOR-ORGANISATION AND METHODS ANALYST Work Phone: [facility] Comment on above: Gastroesophageal ref lux disease, unspecified whether esophagitis present (Primary Dx); Esophageal dysphagia; Allergic contact dermatitis, unspecified trigger; Chronic idiopathic constipation Start: 02-03-2024 End: 02-03-2024 ambulatory [facility] Start: 01-28-2024 End: 01-28-2024 Refill Anitalarry Elmore CANDY DECORATOR-ORGANISATION AND METHODS ANALYST Work Phone: [facility] Start: 01-26-2024 End: 01-26-2024 Telephone encounter Roxana Han CMA [facility] Start: 01-25-2024 End: 01-25-2024 Postop follow up visit related to original px Gerardo Viri DO Work Phone: [facility] Comment on above: Anxiety, generalized (CMS/HCC) (Primary Dx); Postoperative visit; S/P laparoscopy; Encounter for repeat prescription of oral contraceptives Start: 01-25-2024 End: 01-25-2024 ambulatory GERARDO VIRI Not Available Start: 01-25-2024 End: 01-25-2024 Bamboo flowsheet Gerardo Viri DO Work Phone: [facility] Start: 01-25-2024 End: 01-25-2024 Bamboo flowsheet Gerardo Viri DO Work Phone: [facility] Start: 01-23-2024 End: 01-26-2024 Refill Anita L Catarina CANDY DECORATOR-ORGANISATION AND METHODS ANALYST Work Phone: [facility] Start: 01-14-2024 End: 01-14-2024 Clinisync Result Encounter Gerardo Viri DO Work Phone: [facility] Unsolicited Start: 01-14-2024 End: 01-14-2024 Clinisync Result Encounter Gerardo Viri DO Work Phone: [facility] Unsolicited Start: 01-14-2024 End: 01-14-2024 ambulatory Gerardo Viri Facility:[facility] Start: 12-27-2023 End: 12-29-2023 Refill Anita L Catarina CANDY DECORATOR-ORGANISATION AND METHODS ANALYST Work Phone: [facility] Start: 12-20-2023 End: 12-20-2023 ambulatory GERARDO VIRI Not Available Start: 12-07-2023 End: 12-07-2023 Orders Only Anita L Catarina CANDY DECORATOR-ORGANISATION AND METHODS ANALYST Work Phone: [facility] Start: 12-06-2023 End: 12-06-2023 Orders Only Anita L Catarina CANDY DECORATOR-ORGANISATION AND METHODS ANALYST Work Phone: [facility] Start: 11-25-2023 End: 11-25-2023 Refill Anita Elmore CANDY DECORATOR-ORGANISATION AND METHODS ANALYST Work Phone: [facility] Start: 11-23-2023 End: 11-23-2023 Office outpatient visit 15 minutes Alphonso Pylefelipe Work Phone: [facility] Comment on above: Tinea pedis of both feet (Primary Dx) Start: 11-23-2023 End: 11-23-2023 ambulatory [facility] Start: 10-29-2023 End: 10-29-2023 Orders Only Anita Elmore CANDY DECORATOR-ORGANISATION AND METHODS ANALYST Work Phone: [facility] Comment on above: Postoperative hypoth yroidism (Primary Dx) Start: 10-28-2023 End: 10-28-2023 ambulatory [facility] Start: 10-28-2023 Encounter for crystal l adult medical examination without abnormal findings [facility] Start: 10-28-2023 End: 10-28-2023 Patient encounter status Anita Elmore CANDY DECORATOR-ORGANISATION AND METHODS ANALYST Work Phone: [facility] Work Phone: Start: 10-28-2023 End: 10-28-2023 Periodic preventive med est patient 18-39 yrs Anita Elmore CANDY DECORATOR-ORGANISATION AND METHODS ANALYST Work Phone: [facility] Comment on above: Wellness examination (Primary Dx); Tinea pedis of right foot; Postoperative hypothyroidism; Generalized anxiety disorder; High risk heterosexual behavior Start: 10-28-2023 End: 10-28-2023 ambulatory [facility] Start: 10-04-2023 Refill Yesi Zepeda MD Work Phone: Endocrinology Comment on above: Refill Request Start: 09-28-2023 End: 09-28-2023 Office outpatient visit 15 minutes Lima Toussaint CANDY DECORATOR-LIFT TEAM TECHNICIAN Work Phone: [facility] Comment on above: Flu-like symptoms (P rimary Dx); Acute non-recurrent frontal sinusitis; Yeast vaginitis Start: 09-28-2023 End: 09-28-2023 ambulatory LIMA TOUSSAINT [facility] Start: 09-09-2023 End: 09-10-2023 ambulatory LATASHA BOBO Facility:[facility] Start: 09-09-2023 End: 09-10-2023 Patient encounter procedure Latasha Bobo MD Work Phone: Otolarynogology Comment on above: Hypothyroidism (acqu ired) (Primary Dx) Start: 09-03-2023 End: 09-04-2023 ambulatory LATASHA BOBO Facility:[facility] Start: 09-02-2023 Admission to [facility] Latasha Bobo MD Work Phone: Otolaryngology Comment on above: surgery time Start: 09-02-2023 ambulatory Latasha lanza MD Work Phone: [facility] Start: 08-25-2023 End: 08-25-2023 Office outpatient new 45 minutes Anita Elmore CANDY DECORATOR-ORGANISATION AND METHODS ANALYST Work Phone: [facility] Comment on above: Encounter for medica l examination to establish care (Primary Dx); Class 2 obesity due to excess calories without serious comorbidity with body mass index (BMI) of 38.0 to 38.9 in adult; Generalized anxiety disorder; Moderate major depression (CMS-HCC); Gastroesophageal reflux disease, unspecified whether esophagitis present; Cystic acne; Thyroid nodule Start: 08-25-2023 End: 08-25-2023 Patient encounter status Anita Elmore CANDY DECORATOR-ORGANISATION AND METHODS ANALYST Work Phone: [facility] [employer] Work Phone: Start: 08-25-2023 End: 08-25-2023 ambulatory [facility] Natalia CATARINA [facility] Start: 08-25-2023 Encounter for genera l adult medical examination without abnormal findings ANITA L [facility] Start: 08-25-2023 End: 08-26-2023 ambulatory LATASHA BOBO Facility:[facility] Start: 08-25-2023 End: 08-26-2023 ambulatory ANITA CATARINA Facility:[facility] Start: 08-25-2023 Encounter for other [facility]procedural examination [facility] Start: 08-25-2023 End: 08-25-2023 [facility] P[facility] Main 3 Work Phone: [facility] Start: 08-25-2023 End: 08-25-2023 ambulatory Pacc Main 3 Work Phone: Pre Anesthesia Comment on above: Pre-op evaluation (P rimary Dx); Gastroesophageal reflux disease, unspecified whether esophagitis present; Obesity, pediatric, BMI greater than or equal 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 Start: 08-25-2023 End: 08-25-2023 Preprocedural examination done Pac Main 3 Work Phone: [facility] Work Phone: Start: 08-18-2023 End: 08-18-2023 ambulatory Yesi Zepeda MD Work Phone: Endocrinology Comment on above: PCOS (polycystic ova perla syndrome) (Primary Dx); Thyroid nodule Start: 08-18-2023 End: 08-18-2023 Telemedicine consultation with patient Yesi Zepeda MD Work Phone: [facility] Start: 07-13-2023 Telephone encounter Latasha Bobo MD Work Phone: [facility] [place] Comment on above: Results Start: 07-09-2023 End: 07-09-2023 ambulatory LATASHA BOBO Facility:[facility] Start: 05-20-2023 End: 05-20-2023 ambulatory Aime Goff Other [employer] Other Start: 05-20-2023 Encounter by german Goff [facility] Start: 04-23-2023 End: 04-24-2023 ambulatory LATASHA BOBO Facility:[facility] Start: 04-02-2023 End: 04-02-2023 ambulatory Aime Longr Other [employer] Other Start: 04-02-2023 Office outpatient vi sit 25 minutes Aime Shireenerer [facility] Start: 02-22-2023 Telephone encounter Aimedaphne Iyererer [facility] Start: 02-22-2023 End: 02-22-2023 ambulatory DO Kevin Stokes Work Phone: [employer] Other Start: 02-22-2023 End: 02-22-2023 Patient encounter procedure DO Kevin Stokes Work Phone: [facility] Start: 01-30-2023 End: 01-30-2023 ambulatory Gerald Barboza Other [employer] Other Start: 01-30-2023 Telephone encounter Gerald Barboza [facility] Start: 01-27-2023 End: 01-27-2023 ambulatory Aime Goff Facility:[facility] Start: 01-15-2023 End: 01-15-2023 ambulatory Aime Goff Other [employer] Other Start: 01-15-2023 Office outpatient ne w 45 minutes Aimedaphne Iyererer [facility] Start: 01-06-2023 End: 01-06-2023 Emergency department patient visit Africa Del Cid Facility:[facility] Start: 12-14-2022 End: 12-14-2022 ambulatory PA Chetna Rodriguez Facility:[facility] Start: 11-13-2022 Telephone encounter Davina Enriquez MD Work Phone: Endocrinology Comment on above: Appointment (LM that appt was rescheduled) Start: 10-27-2022 End: 10-27-2022 ambulatory Power MOYA Facility:[facility] Start: 07-31-2022 End: 07-31-2022 Emergency department patient visit KATHLEEN NAVA Facility:[facility] Start: 07-31-2022 End: 08-01-2022 ambulatory KATHLEEN NAVA Facility:[facility] Start: 07-08-2022 End: 07-08-2022 ambulatory KEVIN STOKES Facility:[facility] Start: 05-28-2022 End: 05-28-2022 Patient encounter procedure Latasha Bobo MD Work Phone: Otolarynogology Comment on above: Thyroid nodule (Prim rodriguez Dx); Abnormal thyroid blood test; History of thyroid nodule Start: 04-24-2022 Telephone encounter Mana Rincon APRN.ORGANISATION AND METHODS ANALYST Work Phone: Peds Endocrinology Comment on above: Patient Update Start: 04-21-2022 Telephone encounter Mana Rincon APRN.ORGANISATION AND METHODS ANALYST Work Phone: Peds Endocrinology Comment on above: Results Start: 04-19-2022 ambulatory MANA AGUILAR Facil ity:[facility] Start: 04-19-2022 End: 04-19-2022 Subsequent hospital visit by physician Linda [facility] Work Phone: [facility] Radiology Ultrasound Comment on above: Abnormal thyroid blo od test [R79.89] Start: 04-16-2022 Telephone encounter Mana Rincon APRN.ORGANISATION AND METHODS ANALYST Work Phone: Peds Endocrinology Comment on above: Results Start: 04-15-2022 End: 04-16-2022 ambulatory MANA AGUILAR Facility:[facility] Start: 04-15-2022 End: 04-15-2022 Patient encounter procedure Mana Aguilar APRN.ORGANISATION AND METHODS ANALYST Work Phone: Pediatrics Comment on above: Abnormal thyroid blo od test (Primary Dx); History of thyroid nodule; Obesity, pediatric, BMI greater than or equal 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 Start: 02-19-2022 End: 02-19-2022 ambulatory KEVIN STOKES Facility:[facility] Procedures Date Procedure Procedure Detail Performing Clinician Start: 12-07-2024 Urnls dip stick/tabl et rgnt non-auto w/o micrscp Gerardo Viri DO Work Phone: Start: 11-22-2024 Urnls dip stick/tabl et rgnt non-auto w/o micrscp Nichelle NAVA Work Phone: Start: 11-18-2024 [facility] PREG QUANT HCG Core y Viri DO Work Phone: Start: 11-13-2024 ALL THYROID STIM HORMONE Gerardo Viri DO Work Phone: Start: 11-13-2024 [facility] PREG QUANT HCG Core y Viri DO Work Phone: Start: 03-31-2024 Adult depression scr eening assessment Anita Elmore CANDY DECORATOR-ORGANISATION AND METHODS ANALYST Work Phone: Start: 03-20-2024 [facility] PREG QUANT HCG Core y Viri DO Work Phone: Start: 03-17-2024 [facility] PREG QUANT HCG Core y Viri DO Work Phone: Start: 03-15-2024 [facility] PREG QUANT HCG Core y Viri DO Work Phone: Start: 03-14-2024 [facility] PREG QUANT HCG Core y Viri DO Work Phone: Start: 01-14-2024 ALL CBC WITH AUTO DIFF Gerardo Viri DO Work Phone: Start: 11-23-2023 Adult depression scr eening assessment Alphonso Garcia DO Work Phone: Start: 10-28-2023 Adult depression scr eening assessment Anita Elmore CANDY DECORATOR-ORGANISATION AND METHODS ANALYST Work Phone: Start: 09-28-2023 POCT INFLUENZA A/INF LUENZA B/SARS-COV-2 VERITOR Lima Toussaint CANDY DECORATOR-LIFT TEAM TECHNICIAN Work Phone: Start: 09-28-2023 Adult depression scr eening assessment Lima Toussaint CANDY DECORATOR-LIFT TEAM TECHNICIAN Work Phone: Start: 08-25-2023 Adult depression scr eening assessment Anita Elmore CANDY DECORATOR-ORGANISATION AND METHODS ANALYST Work Phone: Start: 05-28-2022 US NECK (POC) HNI USE ONLY Salinas Tam MD Work Phone: Start: 04-19-2022 Us soft tissue head & neck real time imge docm Mana Aguilar CANDY DECORATOR.ORGANISATION AND METHODS ANALYST Work Phone: Start: 07-12-2017 History of tonsillectomy S/P tonsill ectomy Mana Aguilar CANDY DECORATOR.ORGANISATION AND METHODS ANALYST Work Phone: Plan of Treatment Date Care Activity Detail Author Start: 11-24-2025 DTaP,Tdap and Td Vaccines (7 - Td or Tdap) DTaP,Tdap and Td Vaccines (7 - Td or Tdap) [facility] Start: 11-24-2025 Urine microalbumin profile DTaP,Tdap,Td Vaccine (7 - T d or Tdap) [facility] Start: 03-31-2025 Adult BMI Screening Adult BMI Screening [facility] Start: 03-31-2025 Depression Screening Depression Screening [facility] Start: 02-17-2025 Adult BMI Screening Adult BMI Screening [facility] Start: 02-17-2025 Tobacco Screening Tobacco Screening [facility] Start: 02-03-2025 Adult BMI Screening Adult BMI Screening [facility] Start: 02-03-2025 Tobacco Screening Tobacco Screening [facility] Start: 02-02-2025 Adult BMI Screening Adult BMI Screening [facility] Start: 02-02-2025 Tobacco Screening Tobacco Screening [facility] Start: 01-15-2025 Influenza vaccination Influenza Vaccine (#1) [facility] Start: 01-02-2025 End: 01-02-2025 Patient encounter procedure 01/02/2025 11:10 AM EDT Routine [facility] [address] [place] [address] Gerardo Meredith, DO [address] [place] [address] [facility] Start: 12-07-2024 End: 12-07-2024 ambulatory 12/07/2024 2:30 PM EDT Initial [facility] [address] [place] [id number] [facility] Start: 12-07-2024 End: 12-07-2025 ABO/Rh ABO/Rh Lab Routine Missed menses , unspecified gestational age ([facility]) Expected: 12/07/2024 (Approximate), Expires: 12/07/2025 [facility] Comment on above: Expected: 12/07/2024 (Approximate), Expi res: 12/07/2025 Start: 12-07-2024 End: 12-07-2025 Blood type and Indirect antibody screen panel - Blood Type and screen Lab Routine Missed menses , unspecified gestational age [facility] Expected: 12/07/2024 (Approximate), Expires: 12/07/2025 [facility] Work Phone: Comment on above: Expected: 12/07/2024 (Approximate), Expi res: 12/07/2025 Start: 12-07-2024 End: 12-07-2025 Drugs of abuse panel - Urine by Screen method Rapid drug screen, urine Lab Routine , unspecified gestational age ([facility]) Encounter for supervision of normal first in first trimester ([facility]) Expected: 12/07/2024 (Approximate), Expires: 12/07/2025 [facility] Comment on above: Expected: 12/07/2024 (Approximate), Expi res: 12/07/2025 Start: 12-07-2024 End: 12-07-2024 Professional / ancillary services management 12/07/2024 2:00 PM EDT Ancillary Procedure [facility] [address] [place] [id number] [facility] Start: 11-30-2024 End: 11-30-2024 Professional / ancillary services management 11/30/2024 2:30 PM EDT Ancillary Procedure [facility] [address] [place] [address] [facility] Start: 11-22-2024 Adult BMI Screening Adult BMI Screening [facility] Start: 11-22-2024 Depression Screening Depression Screening [facility] Start: 11-22-2024 Tobacco Screening Tobacco Screening [facility] Start: 11-22-2024 End: 02-22-2025 US Pelvis transvaginal US OB transvaginal Imaging Routine Missed menses Expected: 11/22/2024, Expires: 02/22/2025 [facility] Work Phone: Comment on above: Expected: 11/22/2024, Expires: Start: 11-22-2024 End: 11-22-2024 Patient encounter procedure 11/22/2024 1:30 PM EDT Off ice Visit [facility] [address] [place] [address] Nichelle Sanchez PA [address] [place] [address] [facility] Start: 11-02-2024 End: 11-02-2024 Patient encounter procedure 11/02/2024 3:40 PM EDT Off ice Visit [facility] [address] [place] [address] Anita Elmore, CANDY DECORATOR-ORGANISATION AND METHODS ANALYST [address] [place] [address] [facility] Start: 10-27-2024 Adult BMI Screening Adult BMI Screening [facility] Start: 10-27-2024 Depression Screening Depression Screening [facility] Start: 10-27-2024 Screening for Chlamydia trachomatis Chlamydia Screening [facility] Start: 10-27-2024 Tobacco Screening Tobacco Screening [facility] Start: 09-27-2024 Adult BMI Screening Adult BMI Screening [facility] Start: 09-27-2024 Depression Screening Depression Screening [facility] Start: 09-27-2024 Tobacco Screening Tobacco Screening [facility] Start: 08-24-2024 Adult BMI Screening Adult BMI Screening [facility] Start: 08-24-2024 Depression Screening Depression Screening [facility] Start: 06-01-2024 End: 06-01-2024 Patient encounter procedure 06/01/2024 8:40 AM EST Off ice Visit [facility] [address] [place] [address] Anita Elmore, CANDY DECORATOR-ORGANISATION AND METHODS ANALYST [address] [place] [address] [facility] Start: 05-09-2024 End: 05-09-2024 Patient encounter procedure 05/09/2024 9:20 AM EST Off ice Visit [facility] [address] [place] [address] Loretta Winkler MD [address] [place] [address] [facility] Comment on above: Arrived Start: 05-08-2024 End: 05-08-2024 Patient encounter procedure 05/08/2024 8:30 AM EST Off ice Visit [facility] [address] [id number] Nichelle Sanchez PA [address] [place] [address] [facility] OB Start: 05-03-2024 End: 04-03-2025 Thyrotropin [Units/volume] in Serum or Plasma TSH Lab Routine Postoperative hypothyroidism Expected: 05/03/2024 (Approximate), Expires: 04/03/2025 [facility] Work Phone: Comment on above: Expected: 05/03/2024 (Approximate), Expi res: 04/03/2025 Start: 05-03-2024 End: 04-03-2025 Thyroxine (T4) free [Mass/volume] in Serum or Plasma T4, free Lab Routine Postoperative hypothyroidism Expected: 05/03/2024 (Approximate), Expires: 04/03/2025 [facility] Comment on above: Expected: 05/03/2024 (Approximate), Expi res: 04/03/2025 Start: 04-10-2024 End: 04-10-2024 Patient encounter procedure 04/10/2024 9:10 AM EST Off ice Visit [facility] [address] [place] [address] Gerardo Meredith DO [address] [place] [address] [facility] Start: 03-31-2024 End: 03-31-2024 Patient encounter procedure 03/31/2024 8:40 AM EST [facility] [address] [place] [address] Anita Elmore, CANDY DECORATOR-ORGANISATION AND METHODS ANALYST [address] [place] [address] [facility] Start: 03-23-2024 End: 02-20-2025 Thyrotropin [Units/volume] in Serum or Plasma TSH Lab Routine Postoperative hypothyroidism Expected: 03/23/2024 (Approximate), Expires: 02/20/2025 [employer] Work Phone: Comment on above: Expected: 03/23/2024 (Approximate), Expi res: 02/20/2025 Start: 03-23-2024 End: 02-20-2025 Thyroxine (T4) free [Mass/volume] in Serum or Plasma T4, free Lab Routine Postoperative hypothyroidism Expected: 03/23/2024 (Approximate), Expires: 02/20/2025 [facility] Comment on above: Expected: 03/23/2024 (Approximate), Expi res: 02/20/2025 Start: 03-07-2024 End: 03-07-2024 Patient encounter procedure [facility] Comment on above: Arrived Start: 02-18-2024 End: 02-18-2024 Patient encounter procedure 02/18/2024 11:45 AM EDT Office Visit [facility] [address] [place] [address] Anita Elmore, CANDY DECORATOR-ORGANISATION AND METHODS ANALYST [address] [place] [address] [facility] Start: 02-15-2024 End: 02-15-2024 Patient encounter procedure 02/15/2024 2:30 PM EDT Off ice Visit [facility] General Surgery [address] [place] [phone] Aramis Trejo MD [address] [place] [phone] [facility] General Surgery Start: 02-04-2024 End: 02-04-2024 Esophagogastroduodenoscopy transoral diagnostic ESOPHAGOGASTRODUODENOSCOPY DIAGNOSTIC dysphagia 02/04/2024 2:30 PM EDT [facility] Start: 01-25-2024 End: 01-25-2024 Patient encounter procedure [facility] Comment on above: Arrived Start: 01-16-2024 COVID-19 Vaccine ( season) COVID-19 Vaccine ( season) [facility] Start: 01-16-2024 COVID-19 Vaccine ( season) COVID-19 Vaccine ( season) [facility] Start: 01-16-2024 Influenza vaccination [facility] Start: 01-14-2024 End: 01-14-2024 Patient encounter procedure 01/14/2024 7:30 AM EDT Procedure Visit [facility] Gerardo Meredith, [address] [place] [address] [facility] Start: 10-29-2023 End: 11-28-2023 Thyrotropin [Units/volume] in Serum or Plasma TSH Lab Routine Postoperative hypothyroidism Expected: 10/29/2023 (Approximate), Expires: 11/28/2023 [facility] Work Phone: Comment on above: Expected: 10/29/2023 (Approximate), Expi res: 11/28/2023 Start: 10-28-2023 End: 10-28-2023 Patient encounter procedure 10/28/2023 4:20 PM EDT Off ice Visit [facility] [address] [place] [address] Anita Elmore, CANDY DECORATOR-ORGANISATION AND METHODS ANALYST [address] [place] [address] [facility] Start: 10-09-2023 End: 01-08-2024 Thyrotropin [Units/volume] in Serum or Plasma THYROID STIMULATING HORMONE Lab Routine Hypothyroidism (acquired) Expected: 10/09/2023, Expires: 01/08/2024 [facility] Work Phone: Comment on above: Expected: 10/09/2023, Expires: Start: 09-09-2023 End: 12-09-2023 Calcium [Mass/volume] in Serum or Plasma CALCIUM, TOTAL Lab Routine Hypothyroidism (acquired) Expected: 09/09/2023, Expires: 12/09/2023 [facility] Comment on above: Expected: 09/09/2023, Expires: Start: 09-09-2023 End: 12-09-2023 Parathyrin.intact [Mass/volume] in Serum or Plasma PTH INTACT Lab Routine Hypothyroidism (acquired) Expected: 09/09/2023, Expires: 12/09/2023 [facility] Comment on above: Expected: 09/09/2023, Expires: Start: 08-18-2023 End: 11-17-2023 17-Hydroxyprogesterone [Mass/volume] in Serum or Plasma HYDROXYPROGESTERONE-17 Lab Routine PCOS (polycystic ovarian syndrome) Expected: 08/18/2023, Expires: 11/17/2023 [facility] Work Phone: Comment on above: Expected: 08/18/2023, Expires: Start: 08-18-2023 End: 11-17-2023 TESTOSTERONE, FREE AND TOTAL TESTOSTERONE, FREE AND TO CLINT Lab Routine PCOS (polycystic ovarian syndrome) Expected: 08/18/2023, Expires: 11/17/2023 [facility] Work Phone: Comment on above: Expected: 08/18/2023, Expires: Start: 08-02-2023 End: 11-01-2023 Basic metabolic 2000 panel - Serum or Plasma BASIC METABOLIC PNL Lab Routine Thyroiditis Expected: 08/02/2023, Expires: 11/01/2023 [facility] Work Phone: Comment on above: Expected: 08/02/2023, Expires: 4 Start: 08-02-2023 End: 11-01-2023 CBC panel - Blood by Automated count CBC Lab Routine Thyroiditis Expected: 08/02/2023, Expires: 11/01/2023 [facility] Work Phone: Comment on above: Expected: 08/02/2023, Expires: Start: 05-17-2023 Behavioral Health Screening Behavioral Health Screening [facility] Start: 05-17-2023 Depression Assessment Depression Assessment [facility] Start: 01-15-2023 Covid-19 Vaccine ( season) Covid-19 Vaccine ( season) [facility] Start: 01-15-2023 Influenza vaccination [facility] Start: 2022 Adult BMI Follow Up Plan Adult BMI Follow Up Plan [facility] Start: 2022 CHLAMYDIA SCREENING (18-24) CHLAMYDIA SCREENING (18-24) [facility] Start: 2022 GC (GONORRHEA) SCREENING (18-24) GC (GONORRHEA) SCREENING (18-24) [facility] Start: 2022 HEPATITIS C SCREENING HEPATITIS C SCREENING [facility] Start: 2022 Hepatitis C screening Hepatitis C Screening [facility] Start: 2022 HIV SCREENING HIV SCREENING [facility] Start: 2022 HIV screening HIV Screening [facility] Start: 2022 Screening for Chlamydia trachomatis Chlamydia Screening (18-24) [facility] Start: 05-17-2022 DEPRESSION ASSESSMENT DEPRESSION ASSESSMENT [facility] Start: 01-15-2022 Influenza vaccination INFLUENZA (#1) [facility] Start: 01-06-2021 COVID-19 VACCINE (3 - Booster for Pfizer series) COVID-19 VACCINE (3 - Booster for Pfizer series) [facility] Start: 2020 Meningococcal B Vaccine: Consider Based On Risk (1 of 2 - Patient Seeks Protection) Meningococcal B Vaccine: Consider Based On Risk (1 of 2 - Patient Seeks Protection) [facility] Start: 2020 MENINGOCOCCAL CONJUGATE (1 - 2-dose series) MENINGOCOCCAL CONJUGATE (1 - 2-dose series) [facility] Start: 2019 CHLAMYDIA SCREENING (<18) CHLAMYDIA SCREENING (<18) [facility] Start: 2019 GC (GONORRHEA) SCREENING (<18) GC (GONORRHEA) SCREENING (<18) [facility] Start: 2018 PEDS TO ADULT TRANSITION ANNUAL ASSESSMENT PEDS TO ADULT TRANSITION ANNUAL ASSESSMENT [facility] Start: 2016 Adult depression screening assessment DEPRESSION SCREENING [facility] Start: 2016 PEDS TO ADULT TRANSITION INITIAL DISCUSSION PEDS TO ADULT TRANSITION INITIAL DISCUSSION [facility] Start: 2016 Tobacco Screening Tobacco Screening [facility] Start: 2015 HPV VACCINE (1 - 2-dose series) HPV VACCINE (1 - 2-dose series) [facility] Start: 2014 MENINGOCOCCAL B: Consider based on risk (1 of 2 - Risk Bexsero 2-dose series) MENINGOCOCCAL B: Consider based on risk (1 of 2 - Risk Bexsero 2-dose series) [facility] Start: 2013 HPV VACCINE (1 - 2-dose series) HPV VACCINE (1 - 2-dose series) [facility] Start: 2011 Urine microalbumin profile DTAP,TDAP,TD (1 - Tdap) [facility] Start: 2005 MMR (1 of 2 - Standard series) MMR (1 of 2 - Standard series) [facility] Start: 2005 VARICELLA (1 of 2 - 2-dose childhood series) VARICELLA (1 of 2 - 2-dose childhood series) [facility] Start: 2004 POLIO (1 of 3 - 4-dose series) POLIO (1 of 3 - 4-dose series) [facility] Start: 2004 HEPATITIS B (1 of 3 - 3-dose series) HEPATITIS B (1 of 3 - 3-dose series) [facility] 17-Hydroxyprogestero ne [Mass/volume] in Serum or Plasma HYDROXYPROGESTERONE-17 Lab Routine PCOS (polycystic ovarian syndrome) 08/25/2023 8:23 AM EDT [facility] Work Phone: Bacteria identified in Urine by Culture Urine culture Microbiology Routine Missed menses Ordered: 12/07/2024 [facility] Comment on above: Ordered: 12/07/2024 CBC W Auto Different ial panel - Blood CBC and differential Lab Routine Missed menses , unspecified gestational age ([facility]) Ordered: 12/07/2024 [facility] [employer] Comment on above: Ordered: 12/07/2024 End: 08-01-2024 ECG COMPLETE ECG COMPLETE ECG Routine Thyroiditis 1 Occurrences starting 08/02/2023 until 08/01/2024 [facility] Work Phone: Comment on above: 1 Occurrences starting 08/02/2023 until 08/01/2024 Hemoglobin A1c/Hemoglobin.total in Blood Hemoglobin A1c Lab Routine Missed menses , unspecified gestational age ([facility]) Ordered: 12/07/2024 [facility] [employer] Comment on above: Ordered: 12/07/2024 Hepatitis B virus melton rface Ag [Presence] in Serum or Plasma by Immunoassay Hepatitis B surface antigen Lab Routine Missed menses , unspecified gestational age ([facility]) Ordered: 12/07/2024 [facility] Comment on above: Ordered: 12/07/2024 Hepatitis C virus Ab [Presence] in Serum or Plasma by Immunoassay Hepatitis C antibody Lab Routine Missed menses , unspecified gestational age ([facility]) Ordered: 12/07/2024 [facility] Comment on above: Ordered: 12/07/2024 HIV-1/HIV-2 antigen/ antibody combination immunoassay HIV-1 and HIV-2 antibodies Lab Routine Missed menses , unspecified gestational age ([facility]) Ordered: 12/07/2024 [facility] Comment on above: Ordered: 12/07/2024 Reagin Ab [Presence] in Serum by RPR RPR Lab Routine Missed menses , unspecified gestational age ([facility]) Ordered: 12/07/2024 [facility] Comment on above: Ordered: 12/07/2024 Rubella antibody, IgG Rubella an tibody, IgG Lab Routine Missed menses , unspecified gestational age ([facility]) Ordered: 12/07/2024 [facility] Comment on above: Ordered: 12/07/2024 TESTOSTERONE, FREE AND TOTAL CAMRON TOSTERONE, FREE AND TOTAL Lab Routine PCOS (polycystic ovarian syndrome) 08/25/2023 8:23 AM EDT [facility] Work Phone: End: 11-28-2023 Thyroxine (T4) free [Mass/volume] in Serum or Plasma T4, free Lab Routine Postoperative hypothyroidism 1 Occurrences starting 10/29/2023 until 11/28/2023 [facility] Comment on above: 1 Occurrences starting 10/29/2023 until 11/28/2023 End: 03-31-2025 Thyroxine (T4) free [Mass/volume] in Serum or Plasma T4, free Lab Routine Postoperative hypothyroidism 1 Occurrences starting 03/31/2024 until 03/31/2025 [facility] Work [facility]: Comment on above: 1 Occurrences starting 03/31/2024 until 03/31/2025 End: 05-15-2023 Us soft tissue head & neck real time imge docm US THYROID/PARATHYROID Radiology Routine Abnormal thyroid blood test History of thyroid nodule 1 Occurrences starting 04/15/2022 until 05/15/2023 [facility] Work Phone: Comment on above: 1 Occurrences starting 04/15/2022 until 05/15/2023 [facility] N Immunizations Immunization Date Immunization Notes Care Provider [facility] 03-31-2024 Covid-19, Mrna, Lnp- s, Pf,teresa-sucrose,30 Mcg/0.3ml Fall23 Anita Elmore [facility] Work Phone: [facility] 03-31-2024 Immunization, In Clinic,; Translations: [Drug or medicament (substance)] Anita Catarina [facility] Work Phone: [facility] 02-18-2024 influenza, seasonal, injectable, preservative free [facility] Work Phone: [facility] 02-18-2024 Immunization, In Clinic,; Translations: [Drug or medicament (substance)] [facility] Work Phone: [facility] 02-18-2024 influenza virus vacc ine, unspecified formulation Gerardo Viri Work Phone: [facility] 02-22-2023 influenza, injectabl e, quadrivalent, preservative free [facility] Work Phone: [facility] 02-22-2023 influenza virus vacc ine, unspecified formulation Anita Catarina [facility] Work Phone: [facility] 12-26-2021 hepatitis A vaccine, pediatric/adolescent dosage, 2 dose schedule [facility] Work Phone: [facility] 12-26-2021 Human Papillomavirus 9-valent vaccine [facility] Work Phone: [facility] 12-26-2021 meningococcal oligosaccharide (groups A, C, Y and W-135) diphtheria toxoid conjugate vaccine (MCV4O) [facility] Work Phone: [facility] 12-26-2021 tuberculin skin test ; purified protein derivative solution, intradermal [facility] Work Phone: [facility] 12-19-2021 tuberculin skin test ; purified protein derivative solution, intradermal Anita Elmore [facility] Work Phone: [facility] 03-14-2020 influenza, injectabl e, quadrivalent, contains preservative Aime Schwerer Other [employer] Other 03-14-2020 influenza virus vacc ine, unspecified formulation [facility] Work Phone: [facility] 11-25-2015 tetanus toxoid, redu racheal diphtheria toxoid, and acellular pertussis vaccine, adsorbed Anita Elmore [facility] Work Phone: [facility] 11-25-2015 human papilloma viru s vaccine, quadrivalent Aime Schwerer Other [employer] Other 11-25-2015 meningococcal polysaccharide (groups A, C, Y and W-135) diphtheria toxoid conjugate vaccine (MCV4P) Aime Schwerer Other [employer] Other 09-09-2009 Diphtheria, tetanus toxoids and acellular pertussis vaccine, and poliovirus vaccine, inactivated Anita Elmore [facility] Work Phone: [facility] 09-09-2009 measles, mumps and rubella virus vaccine Anita Elmore [facility] Work Phone: [facility] 09-09-2009 varicella virus vaccine Liliana na Catarina [employer] Work Phone: [facility] 06-20-2007 diphtheria, tetanus toxoids and acellular pertussis vaccine Anita Elmore [facility] Work Phone: [facility] 09-13-2006 diphtheria, tetanus toxoids and acellular pertussis vaccine Anita Elmore [facility] Work Phone: [facility] 09-13-2006 haemophilus influenz ae type b vaccine, PRP-T conjugate Anita Elmore [facility] Work Phone: [facility] 09-13-2006 measles, mumps, rube lla, and varicella virus vaccine Anita Elmore [facility] Work Phone: [facility] 09-13-2006 pneumococcal conjuga te vaccine, 7 valent Anita Elmore [facility] Work Phone: [facility] 09-13-2006 poliovirus vaccine, inactivated Anita Elmore [facility] Work Phone: [facility] 06-23-2005 diphtheria, tetanus toxoids and acellular pertussis vaccine Anita Elmore [facility] Work Phone: [facility] 06-23-2005 haemophilus influenz ae type b conjugate and Hepatitis B vaccine Anitalarry Elmore [facility] Work Phone: [facility] 06-23-2005 influenza, seasonal, injectable Anita Elmore [facility] Work Phone: [facility] 06-23-2005 pneumococcal conjuga te vaccine, 7 valent Anita Elmore [facility] Work Phone: [facility] 06-23-2005 poliovirus vaccine, inactivated Anita Elmore [facility] Work Phone: [facility] 2004 diphtheria, tetanus toxoids and acellular pertussis vaccine Anita Elmore [facility] Work Phone: [facility] 2004 haemophilus influenz ae type b conjugate and Hepatitis B vaccine [facility] 2004 pneumococcal conjuga te vaccine, 7 valent Anita Elmore [facility] Work Phone: [facility] 2004 poliovirus vaccine, inactivated Anita Elmore [facility] Work Phone: [facility] 2004 hepatitis B vaccine, pediatric or pediatric/adolescent dosage Anita Elmore [employer] Work Phone: [facility] Payers Date Payer Category Payer Medicaid [id number] 2024 Medicaid [id number] 2024 Self-pay [id number] 2017 Blue Cross Blue Shield 1.2.8 [id number] 2017 Blue Cross Blue Shie ld Managed Care - Other ANTHEM [id number] 2017 Unknown [id number] 2014 Blue Cross Blue Shie ld Managed Care - PPO ANTHEM Member Subscriber Plan / Payer (Effective 2014-Present) Name: Sheyla Lea I Relation to Subscriber: Child Name: NATASHA SAMUELA Date of : 1979 Address: [address] [place] [address] Payer ID: [id number] (NAIC) Type: Not on file Address: [address] [place] [id number] 2014 Unknown [id number] [id number]. [id number] 2014 Unknown [id number] 2004 Unknown [id number] 2.16.840.1.993110.3.579.2. 2004 Unknown [id number] 2.16.840.1.587362.3.579.2. 2004 Unknown [id number] 2.16.840.1.595621.3.579.2. 2004 Unknown [id number] 2.16.840.1.080291.3.579.2. 2004 Unknown [id number] 2.16.840.1.695168.3.579.2. 2004 Unknown [id number] 2.16.840.1.320338.3.579.2. 2004 Unknown [id number] 2.16.840.1.738773.3.579.2. 2004 Unknown [id number] 2.16.840.1.150395.3.579.2. 1285 2004 Unknown [id number] 2.16.840.1.433625.3.579.2. 1285 2004 Unknown [id number] 2.16.840.1.140850.3.579.2. 1285 2004 Unknown [id number] 2.16.840.1.650801.3.579.2. 1285 2004 Unknown [id number] 2.16.840.1.388892.3.579.2. 1285 2004 Unknown [id number] 2.16.840.1.818179.3.579.2. 1285 2004 Unknown [id number] 2.16.840.1.406326.3.579.2. 1285 2004 Unknown [id number] 2.16.840.1.322356.3.579.2. 1285 2004 Unknown [id number] 2.16.840.1.448232.3.579.2. 1285 2004 Unknown [id number] 2.16.840.1.720001.3.579.2. 1285 2004 Unknown [id number] 2.16.840.1.715260.3.579.2. 1285 2004 Unknown [id number] 2.16.840.1.569019.3.579.2. 1285 2004 Unknown [id number] 2.16840.1.347546.3.579.2. 1285 2004 Unknown [id number] 2.16840.1.223255.3.579.2. 1285 2004 Unknown [id number] 2.16840.1.974368.3.579.2. 1258 2004 Unknown [id number] 2.16.840.1.691596.3.579.2. 1258 2004 Unknown [id number] 2.16.840.1.588934.3.579.2. 1258 2004 Unknown [id number] 2.16840.1.849235.3.579.2. 1258 2004 Unknown [id number] 2.16.840.1.630838.3.579.2. 1258 2004 Unknown [id number] 2.16.840.1.208556.3.579.2. 1258 2004 Unknown [id number] 2.16.840.1.217929.3.579.2. 1258 2004 Unknown [id number] 2.16.840.1.744374.3.579.2. 1259 2004 Unknown [id number] 2.16.840.1.585899.3.579.2. 1259 2004 Unknown [id number] 2.16.840.1.966904.3.579.2. 1259 1978 Unknown [id number] 2.16.840.1.076095.3.579.2. 718 Unknown [employer] [id number] Unknown [id number] 2.16.840.1.000598.3.579.2. 531 Unknown [id number] 2.16.840.1.614429.3.579.2. 531 Social History Date Type Detail Facility Start: 04-15-2022 End: 01-09-2023 Tobacco smoking status SDIS Never smoked tobacco [facility] History of tobacco use Passive smoker [facility] Start: 04-15-2022 End: 01-09-2023 Tobacco use and exposure Smokeless tobacco non-user [facility] Start: 04-15-2022 End: 02-18-2024 Alcohol intake Current non-drinker of alcohol (finding) [facility] Start: 04-15-2022 Tobacco Comment mom & dad both smoke in house [facility] Start: 2004 Sex Assigned At Not on file [facility] Start: 04-05-2022 End: 04-19-2022 Exposure to SARS-CoV-2 (event) Not sure [facility] Start: 04-15-2022 End: 01-25-2024 Sex Assigned At [facility] Start: 2004 Sex Assigned At Female [facility] Start: 04-15-2022 End: 01-25-2024 History of Social function [facility] National Score (1-100), lower number is lower risk Not on file [facility] Start: 01-25-2024 End: 12-07-2024 Alcoholic beverage intake Lifetime non-drinker (finding) [facility] Start: 01-05-2023 Gender identity Identifies as female gender (finding) [facility] Start: 04-29-2017 Sex Female (finding) [facility] Start: 10-28-2024 NOMS Shanet jeannettere Clinical Notes 06-17-2017 to 12-07-2024 Tabitha Krystal, ASSOCIATE OF SCIENCE IN NURSING - 12/07/2024 2:30 PM ELIJAH Nix - 11/22/2024 1:30 PM MEAGANBella Marco A, ASSOCIATE OF SCIENCE IN NURSING - 04/10/2024 9:10 AM ANDREW Ying - 03/31/2024 8:40 AM ESTPatient Instructions Note Date & Type Note Facility 12-07-2024 History of Presen t illness Narrative Reason for Appointment: Patient ID: Sheyla Lea [...] disorder) Brother Breast cancer Maternal Grandmother indra samuel Thyroid disease Maternal Grandmother indra samuel Breast cancer Paternal Grandmother Alesha Lea Social History Tobacco Use Smoking status: Never Smokeless tobacco: Never Substance Use Topics Alcohol use: Never Drug use: Never Past Surgical History: Procedure Laterality Date ADENOIDECTOMY LAPAROSCOPY DIAGNOSTIC / BIOPSY / ASPIRATION / LYSIS 01/14/2024 OTHER SURGICAL HISTORY 12/28/2019 nexplanon insertion THYROIDECTOMY 09/03/2023 TONSILLECTOMY No Known Allergies Vitals: Estimated body mass index is 41.24 kg/m as calculated from the following: Height as [...] dipstick manually resulted , unspecified gestational age (HHS-HCC) - Type and screen; Future - ABO/Rh; Future - CBC and differential - Hemoglobin A1c - RPR - Rubella antibody, IgG - Hepatitis B surface antigen - Hepatitis C antibody - HIV-1 and HIV-2 antibodies - Rapid drug screen, urine; Future Encounter for supervision of normal first in first trimester (HHS-HCC) - Rapid drug screen, urine; Future Nurse Note: OB Intake: Patient presents today for first OB visit. Patients history has been reviewed in great detail including any potential risks. Patient signed consent forms and patient desires testing in both trimesters. Patient currently has no complaints and has been advised to drink 6-8 glasses of water a day, eat no raw or undercooked meat, and stay away from [facility]. Patient has also been advised to not change litter boxes and eat 6 small meals a day. Patient has been consulted regarding the do's and don'ts of . Patient was given labs and all questions [...] Tabitha Rice LPN documented in this encounter [facility] 11-22-2024 History of Presen t illness Narrative Reason for Appointment: Patient ID: Sheyla Lea is a 19 y.o. female who presents for ER Follow-up (Cramping in Early ) Patient presents today for Acute Visit. MEDICATIONS Current Outpatient Medications Medication Instructions buPROPion SR (WELLBUTRIN SR) 150 mg, Oral, Daily, Take 1 tablet daily levothyroxine (SYNTHROID) 50 mcg, Oral, Daily before breakfast levothyroxine (SYNTHROID, LEVOXYL) 175 mcg, Oral, Daily before breakfast liothyronine (CYTOMEL) 5 mcg, Oral, Daily metFORMIN (GLUCOPHAGE) 1,000 mg, Oral, Daily with breakfast minocycline 50 MG capsule TAKE 1 CAPSULE BY MOUTH IN THE MORNING and ONE CAPSULE BY MOUTH BEFORE bedtime pantoprazole (PROTONIX) 40 mg, Daily before breakfast phentermine (ADIPEX-P) 37.5 mg, Oral, Daily before breakfast venlafaxine XR (Effexor XR) 37.5 MG 24 hr capsule TAKE 1 CAPSULE BY MOUTH DAILY DO NOT CRUSH OR CHEW. ALLERGIES No Known Allergies PROBLEMS Active Ambulatory Problems Diagnosis Date Noted No [...] Thyroid nodule Tonsillar hypertrophy Unintended weight loss HISTORY PAST MEDICAL HISTORY SOCIAL HISTORY Past Medical History: Diagnosis Date Abnormal thyroid [...] Thyroid nodule Tonsillar hypertrophy Unintended weight loss Social History Tobacco Use Smoking status: Never Smokeless tobacco: Never Substance Use Topics Alcohol use: Never Drug use: Never FAMILY HISTORY Family History Problem Relation Name Age of Onset Other (Seizure disorder) Brother Breast cancer Maternal Grandmother indra samuel Thyroid disease Maternal Grandmother indra samuel Breast cancer Paternal Grandmother Alesha Lea SURGICAL HISTORY Past Surgical History: Procedure Laterality Date ADENOIDECTOMY LAPAROSCOPY DIAGNOSTIC / BIOPSY / ASPIRATION / LYSIS 01/14/2024 OTHER SURGICAL HISTORY 12/28/2019 nexplanon insertion THYROIDECTOMY 09/03/2023 TONSILLECTOMY REVIEW OF SYSTEMS Review of Systems: Review of Systems Constitutional: Negative. HENT: Negative. Eyes: Negative. Respiratory: Negative. Cardiovascular: Negative. Gastrointestinal: Negative. Genitourinary: Negative. Musculoskeletal: Negative. Skin: Negative. Neurological: Negative. All other systems reviewed and are negative. Hematological: Negative. Endocrine: Negative. Allergic/Immunologic: Negative. OBJECTIVE Objective: Physical Exam Constitutional: Appearance: Normal appearance. She is well-developed and normal weight. HENT: Head: Normocephalic. Cardiovascular: Rate and Rhythm: Normal rate and regular rhythm. Pulses: Normal pulses. Pulmonary: Effort: Pulmonary effort is normal. Breath sounds: Normal breath sounds. Abdominal: General: Bowel sounds are normal. There is no distension. Palpations: Abdomen is soft. Tenderness: There is no abdominal tenderness. There is no guarding or rebound. Musculoskeletal: General: No swelling. Normal range of motion. Right lower leg: No edema. Left lower leg: No edema. Neurological: General: No focal deficit present. Mental Status: She is alert and oriented to person, place, and time. Skin: General: Skin is warm and dry. Psychiatric: Mood and Affect: Mood normal. Behavior: Behavior normal. Thought Content: Thought content normal. Judgment: Judgment normal. Vitals and nursing note reviewed. Exam conducted with a offset plate maker present. Vitals: Estimated body mass index is 40.23 kg/m as calculated from the following: Height as of 05/09/24: 5' 3 . Weight as of this encounter: 227 lb 1.9 oz. BP: 128/80 Patient's last menstrual period was 10/02/2024. ASSESSMENT & PLAN ICD-10-CM 1. Nausea R11.0 2. Cramping affecting , antepartum ([facility]) O26.899 POCT , urine manually resulted R10.9 POCT urinalysis dipstick manually resulted 3. Missed menses N92.6 US OB transvaginal Presents after having abdominal cramping and being evaluated in the Emergency Department. With continued increase in HCG level. Shown increase from [address] Santoro at 4000. She is scheduled for OB intake and dating ultrasound. She reports daily nausea and no vomiting and will send in Zofran. Patient feeling better and cramping has stopped. Documented by Marcia Naranjo NP on behalf of: ELIJAH Martinez documented in this encounter [facility] 04-10-2024 History of Presen t illness Narrative Reason for Appointment: Patient ID: Sheyla Lea is a 18 y.o. female who presents for encounter for weight loss Patient presents today for Weight Management Consult. MEDICATIONS Current Outpatient Medications Medication Instructions buPROPion SR (WELLBUTRIN SR) 150 mg, Oral, Daily, Take 1 tablet daily levothyroxine (SYNTHROID, LEVOXYL) 175 mcg, Daily before breakfast metFORMIN (GLUCOPHAGE) 1,000 mg, Oral, Daily with breakfast minocycline 50 MG capsule TAKE 1 CAPSULE BY MOUTH IN THE MORNING and ONE CAPSULE BY MOUTH BEFORE bedtime ondansetron ODT (ZOFRAN-ODT) 4 mg, Every 12 hours PRN pantoprazole (PROTONIX) 40 mg, Daily before breakfast venlafaxine XR (Effexor XR) 37.5 MG 24 hr capsule TAKE 1 CAPSULE BY MOUTH DAILY DO NOT CRUSH OR CHEW. ALLERGIES No Known Allergies PROBLEMS Active Ambulatory Problems Diagnosis Date Noted No Active Ambulatory Problems Resolved Ambulatory Problems Diagnosis Date Noted No Resolved Ambulatory Problems Past Medical History: Diagnosis Date Hypothyroidism (acquired) (CMS/HCC) Irregular menses 2019 HISTORY PAST MEDICAL HISTORY SOCIAL HISTORY Past Medical History: Diagnosis Date Hypothyroidism (acquired) (CMS/HCC) Irregular menses 2019 Social History Tobacco Use Smoking status: Never Smokeless tobacco: Never Substance Use Topics Alcohol use: Never Drug use: Never FAMILY HISTORY Family History Problem Relation Name Age of Onset Breast cancer Maternal Grandmother indra samuel Thyroid disease Maternal Grandmother indra samuel Breast cancer Paternal Grandmother Alesha Lea SURGICAL HISTORY Past Surgical History: Procedure Laterality Date ADENOIDECTOMY LAPAROSCOPY DIAGNOSTIC / BIOPSY / ASPIRATION / LYSIS 01/14/2024 OTHER SURGICAL HISTORY 12/28/2019 nexplanon insertion THYROIDECTOMY 09/03/2023 TONSILLECTOMY REVIEW OF SYSTEMS Review of Systems: Review of Systems Constitutional: Negative. HENT: Negative. Eyes: Negative. Respiratory: Negative. Cardiovascular: Negative. Gastrointestinal: Negative. Genitourinary: Negative. Musculoskeletal: Negative. Skin: Negative. Neurological: Negative. All other systems reviewed and are negative. Hematological: Negative. Endocrine: Negative. Allergic/Immunologic: Negative. OBJECTIVE Objective: Physical Exam Constitutional: Appearance: Normal appearance. She is well-developed. Cardiovascular: Rate and Rhythm: Normal rate and regular rhythm. Pulmonary: Effort: Pulmonary effort is normal. Breath sounds: Normal breath sounds. Abdominal: General: Bowel sounds are normal. There is no distension. Palpations: Abdomen is soft. Tenderness: There is no abdominal tenderness. There is no guarding or rebound. Musculoskeletal: General: No swelling. Normal range of motion. Right lower leg: No edema. Left lower leg: No edema. Neurological: Mental Status: She is alert and oriented to person, place, and time. Skin: General: Skin is warm and dry. Psychiatric: Mood and Affect: Mood normal. Behavior: Behavior normal. Vitals and nursing note reviewed. Exam conducted with a offset plate maker present. Vitals: Estimated body mass index is 36.99 kg/m as calculated from the following: Height as of 03/07/24: 5' 3 . Weight as of this encounter: 208 lb 12.8 oz. BP: 120/74 Patient's last menstrual period was 03/15/2024. ASSESSMENT & PLAN ICD-10-CM 1. Encounter for weight management Z76.89 Pt doing well and presents to discuss weight loss management. Pt was taking Adipex and metformin. Discussed diet and exercise regimen. Pt states she needs to stay focused. Pt to return in 4 weeks for 3rd script. Documented by Bella Strickland LPN on behalf of: Gerardo Meredith DO documented in this encounter [facility] 03-31-2024 History of Presen t illness Narrative [address] [facility] [id number] Patient: Sheyla Lea Date of : 2005 Encounter Date: 03/31/2024 History of Present Illness: The patient is a 18 y.o. female, an established patient, and is here for Chief Complaint Patient presents with discussion medications . HPI Patient is here to discuss her headaches which are daily. She has light sensitivity, some nausea but no vomiting, blurry vision at times. She recently had an visit with her eye doctor for change in prescription glasses. Her headaches are relatively new for the last several months. She has tried Tylenol and Excedrin which minimally helped. She has been seeing her OBGYN who recently put her on Effexor and Wellbutrin and metformin. Towards the end of the conversation she noted she is considering a possible soon. Patient has been struggling with GERD and dyspepsia symptoms. She had an EGD in January that showed retained food in the stomach, mild antral gastritis and a hiatal hernia. She was sent to GI in [place] who ordered a gastric emptying study which was normal. She does not wish to follow-up with this provider, but her symptoms are still not well controlled despite being on 40 mg of Protonix daily. She has stopped metformin in the last few weeks and Adipex and this is not improved her symptoms greatly. She tries to follow an anti-reflux diet such as cutting down on caffeine but she still finds herself taking Tums. Patient is also here to have her thyroid function tests rechecked which have been labile the past several months. Problem List Items Addressed This Visit Digestive GERD (gastroesophageal reflux disease) Endocrine Postoperative hypothyroidism - Primary Relevant Orders TSH (Completed) T4, free Other Visit Diagnoses Acute nonintractable headache, unspecified headache type Immunization due Relevant Orders COVID-19, mRNA, LNP-S, PF, teresa-sucrose, 30 mcg/0.3 mL (Completed) Past Medical, Family, and Social History Update: The following portions of the patient's history were reviewed and updated as appropriate: allergies, current medications, past family history, past medical history, past social history, past surgical history and problem list. Past Medical History: Diagnosis Date Allergic seasonal Anxiety Depression Hypothyroidism PCOS (polycystic ovarian syndrome) Visual impairment Past Surgical History: Procedure Laterality Date ESOPHAGOGASTRODUODENOSCOPY DIAGNOSTIC N/A 02/04/2024 Performed by Niki Hollis DO at [facility] EUSTACHIAN TUBE DILATION Bilateral 06/28/2017 Performed by Abdullahi Cavazos MD at [facility] MYRINGOTOMY W/ TUBES 2010 PELVIC LAPAROSCOPY 01/28/2024 THYROIDECTOMY 09/03/2023 TONSILLECTOMY ADENOIDECTOMY Bilateral 06/28/2017 Performed by Abdullahi Cavazos MD at [facility] Current Outpatient Medications Medication Sig Dispense Refill buPROPion SR (WELLBUTRIN SR) 150 mg 12 hr tablet Take 1 tablet (150 mg total) by mouth in the morning. clindamycin-benzoyl peroxide (BENZACLIN) gel APPLY TO AFFECTED AREA TOPICALLY IN THE MORNING AND AT BEDTIME 25 g 1 metFORMIN (GLUCOPHAGE) 500 mg tablet Take 2 tablets (1,000 mg total) by mouth in the morning. ondansetron ODT (ZOFRAN ODT) 4 mg disintegrating tablet DISSOLVE 1 TABLET (4 MG TOTAL) ON TONGUE EVERY 8 HOURS NEEDED FOR NAUSEA AND VOMITING 20 tablet 1 pantoprazole (PROTONIX) 20 mg EC tablet TAKE 1 TABLET (20 MG TOTAL) BY MOUTH IN THE MORNING 90 tablet 1 venlafaxine XR (EFFEXOR XR) 37.5 mg 24 hr capsule Take 1 capsule (37.5 mg total) by mouth in the morning. levothyroxine (SYNTHROID, LEVOTHROID) 175 MCG tablet Take 1 tablet (175 mcg total) by mouth in the morning. 30 tablet 1 No current facility-administered medications for this visit. (All medications reviewed and updated by provider since last office visit or hospitalization) Allergies: Patient has no known allergies. Tobacco History: Social History Tobacco Use Smoking Status Never Smokeless Tobacco Never (If patient a smoker, smoking cessation counseling offered) Social History: Social History Substance and Sexual Activity Alcohol Use No Review of Systems: Review of Systems Constitutional: Negative for chills, fever and unexpected weight change. HENT: Negative for ear pain and sore throat. Eyes: Negative for pain and visual disturbance. Respiratory: Negative for cough and shortness of breath. Cardiovascular: Negative for chest pain and palpitations. Gastrointestinal: Positive for abdominal pain and nausea. Negative for vomiting. Genitourinary: Negative for dysuria and hematuria. Musculoskeletal: Negative for arthralgias and back pain. Skin: Negative for color change. Neurological: Positive for headaches. Negative for seizures and syncope. Psychiatric/Behavioral: Positive for dysphoric mood. Negative for agitation, decreased concentration and sleep disturbance. The patient is nervous/anxious. All other systems reviewed and are negative. Physical Exam: BP 116/70 (BP Site: Left Arm, BP Postition: Sitting, BP CUFF SIZE: L (13-17 inches)) Pulse 90 Temp 36.4 C (97.6 F) (Oral) Resp 18 Ht 160 cm (5' 3 ) Wt 93.7 kg (206 lb 9.6 oz) SpO2 100% BMI 36.60 kg/m Physical Exam Vitals reviewed. Constitutional: Appearance: Normal appearance. She is obese. HENT: Head: Normocephalic and atraumatic. Mouth/Throat: Mouth: Mucous membranes are moist. Eyes: Pupils: Pupils are equal, round, and reactive to light. Cardiovascular: Rate and Rhythm: Normal rate and regular rhythm. Heart sounds: Normal heart sounds. Pulmonary: Effort: Pulmonary effort is normal. Breath sounds: Normal breath sounds. Abdominal: General: Bowel sounds are normal. Palpations: Abdomen is soft. Tenderness: There is no abdominal tenderness. Musculoskeletal: Right lower leg: No edema. Left lower leg: No edema. Skin: General: Skin is warm. Capillary Refill: Capillary refill takes less than 2 seconds. Neurological: General: No focal deficit present. Mental Status: She is alert and oriented to person, place, and time. Gait: Gait normal. Psychiatric: Mood and Affect: Mood normal. Behavior: Behavior normal. Assessment and Plan: Sheyla was seen today for discussion medications. Diagnoses and all orders for this visit: Postoperative hypothyroidism - TSH; Future - T4, free; Future Acute nonintractable headache, unspecified headache type Gastroesophageal reflux disease, unspecified whether esophagitis present Immunization due - COVID-19, mRNA, LNP-S, PF, teresa-sucrose, 30 mcg/0.3 mL Follow-up: RE-check TFTs. Pt needs to have euthyroid state before . Tension BAUGH vs. Migraine. NSAIDs not working well. Pt given sample of CGRP-I Nurtec - side effects and MOA discussed. Pt can try for abortive means. If this works well but pt needs to take often we can consider prophylactic therapy with CGRP-I. Pt pain 06/26 currently so declines toradol injection today. Discussed risks of PPI for long - term use. Unfortunately, patient can not stop as symptoms are not well controlled. She was offered a 2nd opinion for GI consult but declined at this time. She was advised to speak to her OBGYN regarding her current medications and if they would be safe for a possible . She has an upcoming appointment with her OBGYN. If thyroid function tests are abnormal adjust Synthroid and recheck in 1 month. ANDREW EARL APRN-CNP [id number]/04/[id number] documented in this encounter [facility] 03-07-2024 History of Presen t illness Narrative Reason for Appointment: Patient ID: Sheyla Lea is a 18 y.o. female who presents for Medication Visit Patient presents today for Medication Follow Up appointment. MEDICATIONS Current Outpatient Medications Medication Instructions levothyroxine (SYNTHROID, LEVOXYL) 200 mcg, Oral, Daily before breakfast metFORMIN (GLUCOPHAGE) 500 mg, Oral, Daily with breakfast minocycline 50 MG capsule TAKE 1 CAPSULE BY MOUTH IN THE MORNING and ONE CAPSULE BY MOUTH BEFORE bedtime norgestimate-ethinyl estradiol (Sprintec 28) 0.25-35 MG-MCG tablet 1 tablet, Oral, Daily norgestimate-ethinyl estradiol (Sprintec 28) 0.25-35 MG-MCG tablet 1 tablet, Oral, Daily ondansetron ODT (ZOFRAN-ODT) 4 mg, Oral, Every 12 hours PRN pantoprazole (PROTONIX) 40 mg, Oral, Daily before breakfast, Do not crush, chew, or split. venlafaxine XR (Effexor XR) 37.5 MG 24 hr capsule TAKE 1 CAPSULE BY MOUTH DAILY DO NOT CRUSH OR CHEW. ALLERGIES No Known Allergies PROBLEMS Active Ambulatory Problems Diagnosis Date Noted No Active Ambulatory Problems Resolved Ambulatory Problems Diagnosis Date Noted No Resolved Ambulatory Problems Past Medical History: Diagnosis Date Hypothyroidism (acquired) (CMS/HCC) Irregular menses 2019 HISTORY PAST MEDICAL HISTORY SOCIAL HISTORY Past Medical History: Diagnosis Date Hypothyroidism (acquired) (CMS/HCC) Irregular menses 2019 Social History Tobacco Use Smoking status: Never Smokeless tobacco: Never Substance Use Topics Alcohol use: Never Drug use: Never FAMILY HISTORY Family History Problem Relation Name Age of Onset Breast cancer Maternal Grandmother indra galvaner Thyroid disease Maternal Grandmother indra galvaner Breast cancer Paternal Grandmother Alesha Lea SURGICAL HISTORY Past Surgical History: Procedure Laterality Date ADENOIDECTOMY LAPAROSCOPY DIAGNOSTIC / BIOPSY / ASPIRATION / LYSIS 01/14/2024 OTHER SURGICAL HISTORY 12/28/2019 nexplanon insertion THYROIDECTOMY 09/03/2023 TONSILLECTOMY REVIEW OF SYSTEMS Review of Systems: Review of Systems Constitutional: Negative. HENT: Negative. Eyes: Negative. Respiratory: Negative. Cardiovascular: Negative. Gastrointestinal: Negative. Genitourinary: Negative. Musculoskeletal: Negative. Skin: Negative. Neurological: Negative. All other systems reviewed and are negative. Hematological: Negative. Endocrine: Negative. Allergic/Immunologic: Negative. OBJECTIVE Objective: Physical Exam Constitutional: Appearance: Normal appearance. She is well-developed. Cardiovascular: Rate and Rhythm: Normal rate and regular rhythm. Pulmonary: Effort: Pulmonary effort is normal. Breath sounds: Normal breath sounds. Abdominal: General: Bowel sounds are normal. There is no distension. Palpations: Abdomen is soft. Tenderness: There is no abdominal tenderness. There is no guarding or rebound. Musculoskeletal: General: No swelling. Normal range of motion. Right lower leg: No edema. Left lower leg: No edema. Neurological: Mental Status: She is alert and oriented to person, place, and time. Skin: General: Skin is warm and dry. Psychiatric: Mood and Affect: Mood normal. Behavior: Behavior normal. Vitals and nursing note reviewed. Exam conducted with a offset plate maker present. Vitals: Estimated body mass index is 36.67 kg/m as calculated from the following: Height as of this encounter: 5' 3 . Weight as of this encounter: 207 lb. BP: 138/82 Patient's last menstrual period was 01/26/2024. ASSESSMENT & PLAN ICD-10-CM 1. Mood disorder (CMS/HCC) F39 2. Anxious mood F41.9 Pt feels anxious even with being on effexor for the last two months. Discussed adding wellbutrin vs increasing effexor. Pt to add wellbutrin to see if helps with mood. Discussed Adipex and wanting to conceive. Pt currently on control to regulate periods. Pt to stop OCP. Pt to return in 4 weeks for scheduled adipex. Documented by Bella Strickland LPN on behalf of: Gerardo Meredith DO documented in this encounter [facility] 02-23-2024 Miscellaneous Notes I called pt and read result note. Pt verbally states she understands. documented in this encounter [facility] 02-23-2024 Telephone encounter Note I called pt and read result note. Pt verbally states she understands. [facility] 02-18-2024 History of Presen t illness Narrative [address] [place] [address] Patient: Sheyla Lea Date of : 2005 Encounter Date: 02/18/2024 History of Present Illness: The patient is a 18 y.o. female, an established patient, and is here for Chief Complaint Patient presents with post op . HPI Patient is here to follow-up on her EGD results through Dr. Hollis. Patient saw GI in [place] 1 week ago and a gastric emptying study was ordered. No progress note in the system was able to be reviewed today. Patient continues to have GERD symptoms such as burning in her chest when she is up and moving. She feels laying down and holding still helps with her GERD symptoms. She is still taking her PPI daily. She has been on the Protonix about 2 weeks. She is following her anti-reflux precautions strictly. Patient has also developed a external hemorrhoid and is using tucks pads and Sitz baths which does help. Patient is having more migraines lately to her right jew area when she moves her head and sometimes she will become dizzy. She has stopped the metformin, minocycline, Adipex for the last 2 weeks. Problem List Items Addressed This Visit Digestive GERD (gastroesophageal reflux disease) - Primary Delayed gastric emptying Endocrine Postoperative hypothyroidism Relevant Orders TSH T4, free Other Visit Diagnoses Acute hemorrhoid Influenza vaccination administered at current visit Relevant Orders FLU VACCINE TS 2023-(6MOS UP)(PF) 45 MCG(15MCG X3)/0.5 ML IM SYRINGE (Completed) Past Medical, Family, and Social History Update: The following portions of the patient's history were reviewed and updated as appropriate: allergies, current medications, past family history, past medical history, past social history, past surgical history and problem list. Past Medical History: Diagnosis Date Allergic seasonal Anxiety Depression Hypothyroidism PCOS (polycystic ovarian syndrome) Visual impairment Past Surgical History: Procedure Laterality Date ESOPHAGOGASTRODUODENOSCOPY DIAGNOSTIC N/A 02/04/2024 Performed by Niki Hollis DO at [facility] EUSTACHIAN TUBE DILATION Bilateral 06/28/2017 Performed by Abdullahi Cavazos MD at [facility] MYRINGOTOMY W/ TUBES 2010 PELVIC LAPAROSCOPY 01/28/2024 THYROIDECTOMY 09/03/2023 TONSILLECTOMY ADENOIDECTOMY Bilateral 06/28/2017 Performed by Abdullahi Cavazos MD at [facility] Current Outpatient Medications Medication Sig Dispense Refill levothyroxine (SYNTHROID) 200 MCG tablet Take 1 tablet (200 mcg total) by mouth in the morning. 90 tablet 1 pantoprazole (PROTONIX) 20 mg EC tablet Take 1 tablet (20 mg total) by mouth in the morning. 30 tablet 1 venlafaxine XR (EFFEXOR XR) 37.5 mg 24 hr capsule Take 1 capsule (37.5 mg total) by mouth in the morning. clindamycin-benzoyl peroxide (BENZACLIN) gel APPLY TO AFFECTED AREA TOPICALLY IN THE MORNING AND AT BEDTIME 25 g 1 hydrocortisone-pramoxine (PROCTOFOAM-HS) rectal foam Insert 1 applicator into the rectum in the morning and 1 applicator before bedtime. 10 g 0 Immunization, In Clinic, Inject into the appropriate muscle once for 1 dose. Sign this order to satisfy the OSBOP Positive ID requirements for immunization orders. ondansetron ODT (ZOFRAN ODT) 4 mg disintegrating tablet DISSOLVE 1 TABLET (4 MG TOTAL) ON TONGUE EVERY 8 HOURS NEEDED FOR NAUSEA AND VOMITING 20 tablet 1 phentermine (ADIPEX-P) 37.5 mg tablet TAKE 1 TABLET BY MOUTH IN THE MORNING BEFORE A MEAL (Patient not taking: Reported on 02/18/2024) No current facility-administered medications for this visit. (All medications reviewed and updated by provider since last office visit or hospitalization) Allergies: Patient has no known allergies. Tobacco History: Social History Tobacco Use Smoking Status Never Smokeless Tobacco Never (If patient a smoker, smoking cessation counseling offered) Social History: Social History Substance and Sexual Activity Alcohol Use No Review of Systems: Review of Systems Constitutional: Negative for chills, fever and unexpected weight change. HENT: Negative for ear pain and sore throat. Eyes: Negative for pain and visual disturbance. Respiratory: Negative for cough and shortness of breath. Cardiovascular: Negative for chest pain and palpitations. Gastrointestinal: Positive for abdominal pain, constipation and nausea. Negative for vomiting. Genitourinary: Negative for dysuria and hematuria. Musculoskeletal: Negative for arthralgias and back pain. Skin: Positive for rash. Negative for color change. Neurological: Positive for dizziness and headaches. Negative for seizures and syncope. Psychiatric/Behavioral: Positive for dysphoric mood. Negative for agitation, decreased concentration and sleep disturbance. The patient is nervous/anxious. All other systems reviewed and are negative. Physical Exam: BP 100/60 (BP Site: Left Arm, BP Postition: Sitting) Pulse 79 Temp 36.7 C (98.1 F) (Oral) Resp 18 Ht 160 cm (5' 3 ) Wt 91.6 kg (202 lb) LMP 12/16/2023 SpO2 99% BMI 35.78 kg/m Physical Exam Vitals reviewed. Constitutional: Appearance: Normal appearance. She is obese. HENT: Head: Normocephalic and atraumatic. Right Ear: Tympanic membrane, ear canal and external ear normal. Left Ear: Tympanic membrane, ear canal and external ear normal. Nose: Nose normal. Mouth/Throat: Mouth: Mucous membranes are dry. Eyes: Pupils: Pupils are equal, round, and reactive to light. Cardiovascular: Rate and Rhythm: Normal rate and regular rhythm. Heart sounds: Normal heart sounds. Pulmonary: Effort: Pulmonary effort is normal. Breath sounds: Normal breath sounds. Abdominal: General: Bowel sounds are normal. Palpations: Abdomen is soft. Tenderness: There is no abdominal tenderness. Musculoskeletal: Cervical back: No tenderness. Right lower leg: No edema. Left lower leg: No edema. Lymphadenopathy: Cervical: No cervical adenopathy. Skin: General: Skin is warm. Capillary Refill: Capillary refill takes less than 2 seconds. Findings: Papular rash: AJY elbows pink papular rash. Neurological: General: No focal deficit present. Mental Status: She is alert and oriented to person, place, and time. Psychiatric: Mood and Affect: Mood normal. Behavior: Behavior normal. Assessment and Plan: Sheyla was seen today for post op. Diagnoses and all orders for this visit: Gastroesophageal reflux disease, unspecified whether esophagitis present Postoperative hypothyroidism - TSH; Future - T4, free; Future Acute hemorrhoid Delayed gastric emptying Influenza vaccination administered at current visit - FLU VACCINE TS 2023-(6MOS UP)(PF) 45 MCG(15MCG X3)/0.5 ML IM SYRINGE Other orders - hydrocortisone-pramoxine (PROCTOFOAM-HS) rectal foam; Insert 1 applicator into the rectum in the morning and 1 applicator before bedtime. Follow-up: Pt was advised to stop wither the zoloft or effexor as she could be getting HAs from being on both. She will stop the zoloft. Re-check TFTs as cause of symptoms as well. Take PPI for 6 wks and follow strict anti-reflux precautions and continue to try to lose weight. Recommended to stay off adipex for now. Recommended 6 small meals per day instead of 3 larger ones. No snacking in between. More recommendations by her GI although she would like to see another provider. She will let me know who she wants to see after her gastric emptying study is complete. F/u in 1 mo. ANDREW EARL APRN-CNP 02/21/24 1427 documented in this encounter [facility] 02-03-2024 History of Presen t illness Narrative Reason for Appointment: Patient ID: Sheyla Lea is a 18 y.o. female who presents for No chief complaint on file. Patient presents today via telephone call for a telehealth appointment. Patients Phone #: [phone] (mobile) Current Medications: has a current medication list which includes the following prescription(s): hydroxyzine hcl, levothyroxine, metformin, minocycline, norgestimate-ethinyl estradiol, norgestimate-ethinyl estradiol, omeprazole, ondansetron odt, phentermine, sertraline, and venlafaxine xr. Medical History: Active Ambulatory Problems Diagnosis Date Noted No Active Ambulatory Problems Resolved Ambulatory Problems Diagnosis Date Noted No Resolved Ambulatory Problems Past Medical History: Diagnosis Date Hypothyroidism (acquired) (CMS/HCC) Family History Problem Relation Name Age of Onset Breast cancer Maternal Grandmother Social History Tobacco Use Smoking status: Never Smokeless tobacco: Never Substance Use Topics Alcohol use: Never Drug use: Not on file Past Surgical History: Procedure Laterality Date ADENOIDECTOMY LAPAROSCOPY DIAGNOSTIC / BIOPSY / ASPIRATION / LYSIS 01/14/2024 OTHER SURGICAL HISTORY 12/28/2019 nexplanon insertion THYROIDECTOMY 09/03/2023 TONSILLECTOMY No Known Allergies Vitals: Estimated body mass index is 36.14 kg/m as calculated from the following: Height as of 11/24/23: 5' 3 . Weight as of 01/25/24: 204 lb. BP: Patient's last menstrual period was 12/16/2023. Assessment/Plan No diagnosis found. Today's telehealth visit consisted of spending 5 minutes talking to patient on the phone. Patient called to discuss weight loss progression. She is having health issues at this time and is in need of egd due to dysphagia. We are going to stop adipex at this time. Patient will call when she is doing better Documented by ELIJAH Martinez on behalf of: ELIJAH Martinez documented in this encounter [facility] 02-03-2024 History of Presen t illness Narrative [address] [facility] [address] Patient: Sheyla Lea Date of : 2005 Encounter Date: 02/03/2024 History of Present Illness: The patient is a 18 y.o. female, an established patient, and is here for Chief Complaint Patient presents with swallowing issues . HPI Since Wednesday, patient feels like her pills are getting stuck . Each day the feeling worsens with more tightness in her throat and now food is getting stuck. She has not eaten anything solid for the last 24 hours. She has had some nausea and vomiting. She was intubated in December for an exploratory lap surgery by Dr. Bonilla for endometriosis and a ruptured ovarian cyst but experienced no throat issues immediately after surgery. She also had a thyroidectomy September 03, 2023 for multiple cysts. She also is being treated by her OBGYN with Adipex and metformin to help with weight loss and PCOS. Her OBGYN is currently weaning her off of her Zoloft for the last 2 weeks and had started Effexor to help with her moods. Patient does have history of GERD which has been becoming worse despite treatment with PPI for last 90 days. Pt also struggles with chronic constipation. She has #1 on Stool scale and strains to have BM q 3-5 days. She tries Miralax q am without significant improvement. Pt has rash to elbows that started a few days ago, itches at times. Problem List Items Addressed This Visit Digestive GERD (gastroesophageal reflux disease) - Primary Other Visit Diagnoses Esophageal dysphagia Allergic contact dermatitis, unspecified trigger Relevant Medications venlafaxine XR (EFFEXOR XR) 37.5 mg 24 hr capsule Chronic idiopathic constipation Past Medical, Family, and Social History Update: The following portions of the patient's history were reviewed and updated as appropriate: allergies, current medications, past family history, past medical history, past social history, past surgical history and problem list. Past Medical History: Diagnosis Date Allergic seasonal Anxiety Depression Hypothyroidism PCOS (polycystic ovarian syndrome) Visual impairment Past Surgical History: Procedure Laterality Date ESOPHAGOGASTRODUODENOSCOPY DIAGNOSTIC N/A 02/04/2024 Performed by Niki Hollis DO at [facility] EUSTACHIAN TUBE DILATION Bilateral 06/28/2017 Performed by Abdullahi Cavazos MD at [facility] MYRINGOTOMY W/ TUBES 2010 PELVIC LAPAROSCOPY 01/28/2024 THYROIDECTOMY 09/03/2023 TONSILLECTOMY ADENOIDECTOMY Bilateral 06/28/2017 Performed by Abdullahi Cavazos MD at [facility] Current Outpatient Medications Medication Sig Dispense Refill clindamycin-benzoyl peroxide (BENZACLIN) gel Apply 1 Application topically in the morning and 1 Application before bedtime. 25 g 1 levothyroxine (SYNTHROID) 200 MCG tablet Take 1 tablet (200 mcg total) by mouth in the morning. 90 tablet 1 metFORMIN (GLUCOPHAGE) 500 mg tablet Take 1 tablet (500 mg total) by mouth in the morning. norgestimate-ethinyl estradioL (ORTHO TRI-CYCLEN,TRINESSA) 0.18/0.215/0.25 mg-35 mcg (28) per tablet Take 1 tablet by mouth in the morning. ondansetron ODT (ZOFRAN ODT) 4 mg disintegrating tablet Dissolve 1 tablet (4 mg total) on tongue every 8 (eight) hours as needed for nausea or vomiting. 20 tablet 1 sertraline (ZOLOFT) 100 mg tablet Take 1 tablet (100 mg total) by mouth in the morning. 90 tablet 1 venlafaxine XR (EFFEXOR XR) 37.5 mg 24 hr capsule Take 1 capsule (37.5 mg total) by mouth in the morning. levothyroxine (SYNTHROID, LEVOTHROID) 25 mcg/mL suspension Take 8 mL (200 mcg total) by mouth in the morning for 30 days. 240 mL 0 minocycline (MINOCIN,DYNACIN) 50 mg capsule TAKE 1 CAPSULE BY MOUTH TWICE A DAY (IN THE MORNING AND BEFORE BEDTIME) pantoprazole (PROTONIX) 20 mg EC tablet Take 1 tablet (20 mg total) by mouth in the morning. 30 tablet 1 phentermine (ADIPEX-P) 37.5 mg tablet TAKE 1 TABLET BY MOUTH IN THE MORNING BEFORE A MEAL No current facility-administered medications for this visit. (All medications reviewed and updated by provider since last office visit or hospitalization) Allergies: Patient has no known allergies. Tobacco History: Social History Tobacco Use Smoking Status Never Smokeless Tobacco Never (If patient a smoker, smoking cessation counseling offered) Social History: Social History Substance and Sexual Activity Alcohol Use No Review of Systems: Review of Systems Constitutional: Positive for unexpected weight change (lost 18 lbs since last appt from adipex). Negative for chills and fever. HENT: Negative for ear pain and sore throat. Eyes: Negative for pain and visual disturbance. Respiratory: Negative for cough and shortness of breath. Cardiovascular: Negative for chest pain and palpitations. Gastrointestinal: Positive for abdominal pain, constipation, nausea and vomiting. Genitourinary: Negative for dysuria and hematuria. Musculoskeletal: Negative for arthralgias and back pain. Skin: Positive for rash. Negative for color change. Neurological: Negative for seizures and syncope. Psychiatric/Behavioral: Positive for dysphoric mood. Negative for agitation, decreased concentration and sleep disturbance. The patient is nervous/anxious. All other systems reviewed and are negative. Physical Exam: BP 100/70 (BP Site: Left Arm, BP Postition: Sitting) Pulse 85 Temp 37.1 C (98.8 F) (Oral) Resp 18 Ht 160 cm (5' 3 ) Wt 91.6 kg (201 lb 14.4 oz) SpO2 99% BMI 35.76 kg/m Physical Exam Vitals reviewed. Constitutional: Appearance: Normal appearance. She is obese. HENT: Head: Normocephalic and atraumatic. Right Ear: Tympanic membrane, ear canal and external ear normal. Left Ear: Tympanic membrane, ear canal and external ear normal. Nose: Nose normal. Mouth/Throat: Mouth: Mucous membranes are dry. Eyes: Pupils: Pupils are equal, round, and reactive to light. Cardiovascular: Rate and Rhythm: Normal rate and regular rhythm. Heart sounds: Normal heart sounds. Pulmonary: Effort: Pulmonary effort is normal. Breath sounds: Normal breath sounds. Abdominal: General: Bowel sounds are normal. Palpations: Abdomen is soft. Tenderness: There is no abdominal tenderness. Musculoskeletal: Cervical back: No tenderness. Right lower leg: No edema. Left lower leg: No edema. Lymphadenopathy: Cervical: No cervical adenopathy. Skin: General: Skin is warm. Capillary Refill: Capillary refill takes less than 2 seconds. Findings: Rash present. Rash is papular (JAY elbows pink papular rash). Neurological: General: No focal deficit present. Mental Status: She is alert and oriented to person, place, and time. Psychiatric: Mood and Affect: Mood normal. Behavior: Behavior normal. Assessment and Plan: Sheyla was seen today for swallowing issues. Diagnoses and all orders for this visit: Gastroesophageal reflux disease, unspecified whether esophagitis present Esophageal dysphagia Allergic contact dermatitis, unspecified trigger Chronic idiopathic constipation Other orders - pantoprazole (PROTONIX) 20 mg EC tablet; Take 1 tablet (20 mg total) by mouth in the morning. Follow-up: Will set pt up with EGD with Dr. Hollis and change PPI to protonix. She should follow anti-reflux precautions. Her levothyroxine was changed to liquid so she may swallow. She should maintain hydration. She should go to ER if she has intractable vomiting. She may try OTC hydrocortisone for new rash to elbows. Discussed Rx treatment for constipation briefly. Will hold off until dysphagia is addressed. F/u for other discussed problems after EGD. New problem with uncertain prognosis, Rx drug treatment and review of outside provider notes. ANDREW EARL APRN-CNP 02/08/24 1639 documented in this encounter [facility] 01-26-2024 Miscellaneous Notes Patient was called and encouraged to not gerd medication and to take but as needed and to call and set wellness up. Patient scheduled next year for wellness and 03/31/24 for med visit. documented in this encounter [facility] 01-26-2024 Telephone encounter Note Patient was called and encouraged to not gerd medication and to take but as needed and to call and set wellness up. [facility] 01-26-2024 Telephone encounter Note Patient scheduled next year for wellness and 03/31/24 for med visit. [facility] 01-25-2024 History of Presen t illness Narrative Reason for Appointment: Patient ID: Sheyla Lea is a 18 y.o. female who presents for Post-op Visit (Pt present today for post op visit. S/p dx lap 01/14/2024) Patient presents today for 1 Week Post Op Follow Up appointment. MEDICATIONS Current Outpatient Medications Medication Instructions hydrOXYzine HCl (ATARAX) 10 mg, Oral, Nightly PRN levothyroxine (SYNTHROID, LEVOXYL) 200 mcg, Oral, Daily before breakfast metFORMIN (GLUCOPHAGE) 500 mg, Oral, Daily with breakfast minocycline 50 MG capsule TAKE 1 CAPSULE BY MOUTH IN THE MORNING and ONE CAPSULE BY MOUTH BEFORE bedtime norgestimate-ethinyl estradiol (Sprintec 28) 0.25-35 MG-MCG tablet 1 tablet, Oral, Daily omeprazole (PRILOSEC) 40 mg, Oral, Daily ondansetron ODT (ZOFRAN-ODT) 4 mg, Oral, Every 12 hours PRN phentermine (ADIPEX-P) 37.5 mg, Oral, Daily before breakfast sertraline (ZOLOFT) 100 mg, Oral, Every morning ALLERGIES No Known Allergies PROBLEMS Active Ambulatory Problems Diagnosis Date Noted No Active Ambulatory Problems Resolved Ambulatory Problems Diagnosis Date Noted No Resolved Ambulatory Problems Past Medical History: Diagnosis Date Hypothyroidism (acquired) ([facility]) HISTORY PAST MEDICAL HISTORY SOCIAL HISTORY Past Medical History: Diagnosis Date Hypothyroidism (acquired) ([facility]) Social History Tobacco Use Smoking status: Never Smokeless tobacco: Never Substance Use Topics Alcohol use: Never Drug use: Not on file FAMILY HISTORY Family History Problem Relation Name Age of Onset Breast cancer Maternal Grandmother SURGICAL HISTORY Past Surgical History: Procedure Laterality Date ADENOIDECTOMY LAPAROSCOPY DIAGNOSTIC / BIOPSY / ASPIRATION / LYSIS 01/14/2024 OTHER SURGICAL HISTORY 12/28/2019 nexplanon insertion THYROIDECTOMY 09/03/2023 TONSILLECTOMY REVIEW OF SYSTEMS Review of Systems: Review of Systems Constitutional: Negative. HENT: Negative. Eyes: Negative. Respiratory: Negative. Cardiovascular: Negative. Gastrointestinal: Negative. Genitourinary: Negative. Musculoskeletal: Negative. Skin: Negative. Neurological: Negative. All other systems reviewed and are negative. Hematological: Negative. Endocrine: Negative. Allergic/Immunologic: Negative. OBJECTIVE Objective: Physical Exam Constitutional: Appearance: Normal appearance. She is normal weight. HENT: Head: Normocephalic. Cardiovascular: Rate and Rhythm: Normal rate. Pulses: Normal pulses. Pulmonary: Effort: Pulmonary effort is normal. Breath sounds: Normal breath sounds. Abdominal: Palpations: Abdomen is soft. Comments: Abdominal incisions healing well Musculoskeletal: General: Normal range of motion. Neurological: General: No focal deficit present. Mental Status: She is alert and oriented to person, place, and time. Skin: General: Skin is warm and dry. Psychiatric: Mood and Affect: Mood normal. Behavior: Behavior normal. Thought Content: Thought content normal. Judgment: Judgment normal. Vitals and nursing note reviewed. Vitals: Estimated body mass index is 36.14 kg/m as calculated from the following: Height as of 24: 5' 3 . Weight as of this encounter: 204 lb. BP: 126/78 Patient's last menstrual period was 12/16/2023. ASSESSMENT & PLAN ICD-10-CM 1. Postoperative visit Z48.89 2. S/P laparoscopy Z98.890 Patient presents post DX laproscopy. Incisions healing well. Pt states she does not feel her zoloft is working. Pt is going to wean off zoloft and start taking ellexor. Jpt to follow up in 2 weeks via telehealth for adipex refill, pt will be able to have 90 dya supply. Documented by ELIJAH Martinez on behalf of: Gerardo Meredith DO documented in this encounter [facility] 01-23-2024 Miscellaneous Notes I will give her a 90 day supply if that is cheaper but I do not want pt to continuously take this medication for long period. If she is still struggling w GERD when taking this PRN please set her up to see me - wellness if due if fine documented in this encounter [facility] 01-23-2024 Telephone encounter Note I will give her a 90 day supply if that is cheaper but I do not want pt to continuously take this medication for long period. If she is still struggling w GERD when taking this PRN please set her up to see me - wellness if due if fine [facility] 11-25-2023 Miscellaneous Notes Please remind pt, she cannot take hydroxyzine if she is Notified via [employer] msg documented in this encounter [facility] 11-25-2023 Telephone encounter Note Please remind pt, she cannot take hydroxyzine if she is [facility] 11-25-2023 Telephone encounter Note Notified via [employer] [facility] 11-25-2023 Miscellaneous Notes Please remind pt, she cannot take hydroxyzine if she is documented in this encounter [facility] 11-25-2023 Telephone encounter Note Please remind pt, she cannot take hydroxyzine if she is [facility] 11-23-2023 History of Presen t illness Narrative Subjective Patient ID: Sheyla Lea is a 18 y.o. female. Sheyla presents for rash on both feet that is spreading to her hands. It is red with scale. It itches. She tried the lotrisone cream but it didn't help. She has no new symptoms. The following portions of the patient's history were reviewed and updated as appropriate: allergies, current medications, past family history, past medical history, past social history, past surgical history, problem list, and medication reconciliation was completed including current medication and post discharge medication. Review of Systems Objective Physical Exam Vitals reviewed. Constitutional: General: She is not in acute distress. Appearance: She is obese. HENT: Head: Normocephalic. Nose: No congestion. Eyes: Pupils: Pupils are equal, round, and reactive to light. Neck: Thyroid: No thyroid mass, thyromegaly or thyroid tenderness. Pulmonary: Effort: Pulmonary effort is normal. Musculoskeletal: Right lower leg: No edema. Left lower leg: No edema. Skin: General: Skin is warm. Findings: Rash present. Comments: Red, scaly rash on both feet around toes and in web spaces; defined border; Light red rash on hands with slight scale, defined border on palms Neurological: General: No focal deficit present. Mental Status: She is alert and oriented to person, place, and time. Psychiatric: Mood and Affect: Mood normal. Behavior: Behavior normal. Thought Content: Thought content normal. Judgment: Judgment normal. Assessment/Plan Sheyla was seen today for athletes foot spread to hands. skin cracking. Diagnoses and all orders for this visit: Tinea pedis of both feet Will d/c lotrisone and try lamisil cream. Try to keep feet dry. Other orders - terbinafine (LamISIL AT) 1 % cream; Apply 1 Application topically in the morning and 1 Application before bedtime. - omeprazole (PriLOSEC) 40 mg capsule; Take 1 capsule (40 mg total) by mouth daily as needed (heartburn). documented in this encounter [facility] [employer] 10-28-2023 History of Presen t illness Narrative [address] [facility] [id number] Patient: Sheyla Lea Date of : 2005 Encounter Date: 10/28/2023 History of Present Illness: The patient is a 18 y.o. female, an established patient, and is here for Chief Complaint Patient presents with Annual Exam . HPI Patient is here for her wellness exam. She had her thyroid removed in August and she has been following up with the surgeon. She would prefer not to follow-up with ENT after the initial follow-up after surgery for which she had a video visit. She saw her OBGYN Dr. Bonilla and he started her on metformin for weight loss and control pills to help regulate her menses. She sees her diagrammer again in 1 month and also has a transvaginal ultrasound scheduled for lower pelvic pain. She has a history of ovarian cysts. Her diagrammer thinks her lack of periods and irregular periods maybe due to PCOS. She has not yet had her thyroid function tests rechecked after surgery. She has been having itching dry rash on her right lateral foot that is bothering her. The rash has been there for several weeks and she has tried some various creams to no avail. Recently her boyfriend's father unexpectedly while she was at home with him alone. She has some increased anxiety and stress from this experience. Problem List Items Addressed This Visit Endocrine Postoperative hypothyroidism Relevant Medications levothyroxine (SYNTHROID, LEVOTHROID) 150 MCG tablet Other Relevant Orders TSH with Reflex T4, free Other Generalized anxiety disorder Other Visit Diagnoses Wellness examination - Primary Relevant Orders Comprehensive metabolic panel Lipid profile Tinea pedis of right foot Past Medical, Family, and Social History Update: The following portions of the patient's history were reviewed and updated as appropriate: allergies, current medications, past family history, past medical history, past social history, past surgical history and problem list. Past Medical History: Diagnosis Date Allergic seasonal Anxiety Depression Hypothyroidism PCOS (polycystic ovarian syndrome) Visual impairment Past Surgical History: Procedure Laterality Date EUSTACHIAN TUBE DILATION Bilateral 06/28/2017 Performed by Abdullahi Cavazos MD at [facility] MYRINGOTOMY W/ TUBES 2010 THYROIDECTOMY 09/03/2023 TONSILLECTOMY ADENOIDECTOMY Bilateral 06/28/2017 Performed by Abdullahi Caavzos MD at [facility] Current Outpatient Medications Medication Sig Dispense Refill clindamycin-benzoyl peroxide (BENZACLIN) gel Apply 1 Application topically in the morning and 1 Application before bedtime. 25 g 1 hydrOXYzine (ATARAX) 10 mg tablet Take 1 tablet (10 mg total) by mouth nightly as needed for itching. 30 tablet 0 levothyroxine (SYNTHROID, LEVOTHROID) 150 MCG tablet Take 1 tablet (150 mcg total) by mouth. medroxyPROGESTERone (PROVERA) 10 mg tablet Take 1 tablet (10 mg total) by mouth in the morning. metFORMIN (GLUCOPHAGE) 500 mg tablet Take 1 tablet (500 mg total) by mouth in the morning. minocycline (DYNACIN) 50 MG tablet Take 1 tablet (50 mg total) by mouth in the morning and 1 tablet (50 mg total) before bedtime. omeprazole (PriLOSEC) 40 mg capsule Take 1 capsule (40 mg total) by mouth in the morning. 60 capsule 1 ondansetron ODT (ZOFRAN ODT) 4 mg disintegrating tablet Dissolve 1 tablet (4 mg total) on tongue every 8 (eight) hours as needed for nausea or vomiting. 20 tablet 1 sertraline (ZOLOFT) 100 mg tablet Take 1 tablet (100 mg total) by mouth in the morning. 90 tablet 1 clotrimazole-betamethasone (LOTRISONE) cream Apply 1 Application topically in the morning and 1 Application before bedtime. Apply to affected area 2 times daily. 45 g 1 No current facility-administered medications for this visit. (All medications reviewed and updated by provider since last office visit or hospitalization) Allergies: Patient has no known allergies. Tobacco History: Social History Tobacco Use Smoking Status Never Smokeless Tobacco Never (If patient a smoker, smoking cessation counseling offered) Social History: Social History Substance and Sexual Activity Alcohol Use No Review of Systems: Review of Systems Constitutional: Positive for unexpected weight change (5 lbs since last appt). Negative for chills and fever. HENT: Negative for ear pain and sore throat. Eyes: Negative for pain and visual disturbance. Respiratory: Negative for cough and shortness of breath. Cardiovascular: Negative for chest pain and palpitations. Gastrointestinal: Negative for abdominal pain and vomiting. Genitourinary: Negative for dysuria and hematuria. Musculoskeletal: Negative for arthralgias and back pain. Skin: Positive for rash. Negative for color change. Neurological: Negative for seizures and syncope. Psychiatric/Behavioral: Positive for dysphoric mood. Negative for agitation, decreased concentration and sleep disturbance. The patient is nervous/anxious. All other systems reviewed and are negative. Physical Exam: BP 94/60 (BP Site: Left Arm, BP Postition: Sitting) Pulse 71 Temp 37.1 C (98.7 F) (Oral) Resp 18 Ht 160 cm (5' 3 ) Wt 100.2 kg (220 lb 14.4 oz) SpO2 98% BMI 39.13 kg/m Physical Exam Vitals reviewed. Constitutional: Appearance: Normal appearance. She is obese. HENT: Head: Normocephalic and atraumatic. Right Ear: Tympanic membrane, ear canal and external ear normal. Left Ear: Tympanic membrane, ear canal and external ear normal. Nose: Congestion present. Mouth/Throat: Mouth: Mucous membranes are moist. Eyes: Pupils: Pupils are equal, round, and reactive to light. Neck: Thyroid: No thyroid mass, thyromegaly or thyroid tenderness. Cardiovascular: Rate and Rhythm: Normal rate and regular rhythm. Heart sounds: Normal heart sounds. Pulmonary: Effort: Pulmonary effort is normal. Breath sounds: Normal breath sounds. Abdominal: General: Bowel sounds are normal. Palpations: Abdomen is soft. There is no mass. Tenderness: There is no abdominal tenderness. There is no guarding or rebound. Hernia: No hernia is present. Musculoskeletal: Right lower leg: No edema. Left lower leg: No edema. Lymphadenopathy: Cervical: No cervical adenopathy. Skin: General: Skin is warm. Capillary Refill: Capillary refill takes less than 2 seconds. Neurological: General: No focal deficit present. Mental Status: She is alert and oriented to person, place, and time. Gait: Gait normal. Psychiatric: Mood and Affect: Mood normal. Behavior: Behavior normal. Assessment and Plan: Sheyla was seen today for annual exam. Diagnoses and all orders for this visit: Wellness examination - Comprehensive metabolic panel; Future - Lipid profile; Future Tinea pedis of right foot Postoperative hypothyroidism - TSH with Reflex; Future - T4, free; Future Generalized anxiety disorder Other orders - clotrimazole-betamethasone (LOTRISONE) cream; Apply 1 Application topically in the morning and 1 Application before bedtime. Apply to affected area 2 times daily. Follow-up: Wellness labs as above and health maintenance and immunizations were discussed and recommendations were made. She declines STI screening today as she has in a monogamous relationship. Her OBGYN is handling her contraception care. Self-breast exams were recommended. She may start Lotrisone cream as above for her athlete's foot. She should keep the foot very dry and protect from son. She was cautioned that steroid cream can thin the skin as well. Recheck thyroid function tests as above. She was encouraged to seek counseling as she already has an established counselor. If counseling is not helping in the next few weeks she should return to the office and we will consider medication therapy for her anxiety/PTSD symptoms. ANDREW EARL APRN-CNP 11/02/23 1602 documented in this encounter [employer] 10-04-2023 Telephone encounter Note Requester: Patient Patients [...] No Patient is completely out of medication. [facility] 10-04-2023 Miscellaneous Notes Requester: Patient Patients [...] out of medication. documented in this encounter [facility] 09-28-2023 History of Presen t illness Narrative Subjective Patient ID: Sheyla Lea is a 18 y.o. female. She is just recovering from a thyroidectomy on 09/02 Onset of these symptoms 2 days ago Low grade fever Cough, congestion, sore throat and body aches Poor appetite Went to work this am felt so ill she left almost immediately The following portions of the patient's history were reviewed and updated as appropriate: allergies, current medications, past family history, past medical history, past social history, past surgical history, problem list, and medication reconciliation was completed including current medication and post discharge medication. Review of Systems Constitutional: Positive for activity change, fatigue and fever. HENT: Positive for congestion, postnasal drip, rhinorrhea, sinus pressure, sinus pain, sore throat and trouble swallowing. Eyes: Negative. Respiratory: Positive for cough. Negative for shortness of breath and wheezing. Cardiovascular: Negative. Gastrointestinal: Negative. Endocrine: Negative. Genitourinary: Negative. Musculoskeletal: Negative. Allergic/Immunologic: Negative. Neurological: Negative. Hematological: Negative. Psychiatric/Behavioral: Negative. Objective Physical Exam Vitals and nursing note reviewed. Constitutional: Appearance: She is ill-appearing. HENT: Head: Normocephalic. Right Ear: Tympanic membrane, ear canal and external ear normal. Left Ear: Tympanic membrane, ear canal and external ear normal. Nose: Congestion and rhinorrhea present. Comments: Nasal turbinates erythematous and swollen Eyes: Conjunctiva/sclera: Conjunctivae normal. Neck: Comments: Healed incision base of neck Cardiovascular: Rate and Rhythm: Normal rate and regular rhythm. Heart sounds: Normal heart sounds. No murmur heard. Pulmonary: Effort: Pulmonary effort is normal. Breath sounds: Normal breath sounds. Comments: Frequent harsh cough Musculoskeletal: Cervical back: Tenderness present. Lymphadenopathy: Cervical: Cervical adenopathy present. Skin: General: Skin is warm and dry. Capillary Refill: Capillary refill takes less than 2 seconds. Neurological: Mental Status: She is alert and oriented to person, place, and time. Psychiatric: Thought Content: Thought content normal. Judgment: Judgment normal. Assessment/Plan Sheyla was seen today for sore throat, nasal congestion, generalized body aches, fever and cough. Diagnoses and all orders for this visit: Flu-like symptoms - POCT Influenza A/Influenza B/SARS-COV-2 Veritor Acute non-recurrent frontal sinusitis - amoxicillin-pot clavulanate (AUGMENTIN) 875-125 mg per tablet; Take 1 tablet by mouth in the morning and 1 tablet before bedtime. Do all this for 7 days. - predniSONE (DELTASONE) 20 mg tablet; Take 1 tablet (20 mg total) by mouth in the morning for 7 days. Yeast vaginitis - fluconazole (DIFLUCAN) 150 mg tablet; Take 1 tablet (150 mg total) by mouth once for 1 dose. She is negative for influenza and covid With recent surgery will cover her for a bacterial infection Treat her with augmentin and prednisone She does get yeast infections easily so will cover with diflucan following antibiotic Rest, fluids May return to work 09/28 or 09/29 depending on how she is feeling Lima Toussaint APRN-LIFT TEAM TECHNICIAN 09/28/23 1300 documented in this encounter [facility] [employer] [facility] 09-09-2023 Note HNO ID: [id number] Author: LATASHA BOBO MD Service: ? Author [...] findings and treatment plan. Latasha Bobo MD [facility] 09-09-2023 History of Presen t illness Narrative [facility] Note CC: Post op of [...] Latasha Bobo MD documented in this encounter [facility] 09-09-2023 Nurse Note Tobacco Use: Never Was smoking cessation packet given? N/A - Patient is a non-smoker or quit >1 year ago. Was a referral initiated?N/A Patient is a non-smoker [facility] 09-09-2023 Nurse Note Tobacco Use: Never Was smoking cessation packet given? N/A - Patient is a non-smoker or quit >1 year ago. Was a referral initiated?N/A Patient is a non-smoker documented in this encounter [facility] 09-04-2023 Note HNO ID: [id number] Author: PEG RICKETTS MD Service: Otolaryngology Author Type: Resident Type: Progress Notes Filed: 09/04/2023 08:34 Note Text: [facility] OT[facility] - HEAD AND NECK SURGERY PROGRESS NOTE PAGE [id number] AFTER 1700 AND ON WEEKENDS Patient Name: Sheyla Lea Age: [age] year old Sex: female Date: September 04, 2023 Admission Date: 09/03/2023 Hospital Day: 0 ASSESSMENT/PLAN: Sheyla Lea is a 18 year old female who has been followed for total thyroidectomy - DC drain - DC home Peg Ricketts MD PGY-2 Otolaryngology/Head and Neck Surgery [phone] Service Pager [phone] - please page after 5pm and on [...] 100% Ins AND Outs: Date 09/03/23699 - 09/04/2365809/04/23699 - 09/05/23 0659 Shift 9044-1759 8735-2153 7531-7851 24 Hour Total 8485-6949 2231-6778 2146-9951 24 Hour Total INTAKE PO 200 200 PO 200 200 IV 1999 423 1122 3545 OR Crystalloid intake (mL) 1000 1000 Volume (mL) (ceFAZolin iv piggyback 2 g in D5W (iso-osmotic) 100 mL (ANCEF)) 100 100 Volume (mL) (lactated ringers iv infusion) 1000 1000 Volume (mL) (NaCl 0.9% iv infusion) 423 1022 1445 Shift Total 1999 623 1122 3745 OUTPUT Urine 800 486 0493 1650 Void (ml) 766 544 3854 1650 Tubes 17.5 10 27.5 Drain/Tube Output (Drain/Tube 09/03/23 1124 [facility] Midline Anterior Neck) 17.5 10 27.5 # [...] active hospital problems. * thyroid POA: Yes [facility] 09-03-2023 Note HNO ID: [id number] Author: PATRICIA ARAGON APRN.[place] Service: ? Author Type: Nurse Carrier Operator Type: Anesthesia Procedure Notes Filed: 09/03/2023 07:56 Note Text: ANESTHESIOLOGY PROCEDURE NOTE Airway General Information Procedure Start Time/Medication Administration: 09/03/2023 7:31 AM Procedure End Time: 09/03/2023 7:32 AM Patient location during procedure: OR Timeout Performed Pre-procedure: timeout performed Consent Obtained: Yes Patient identity confirmed: arm band and patient Staffing CHEMISTRY INTERN: Patricia Aragon APRN.CHEMISTRY INTERN Indications and Patient Condition Indications for airway management: anesthesia and airway protection Preoxygenated: yes anesthesia circuit Method: asleep Cricoid Pressure: No Manual In-Line Stabilization: No Difficult Mask: No Final Airway Details Final airway type: endotracheal airway Final Endotracheal Airway: NIM tube Cuffed: yes Successful intubation technique: video laryngoscopy Devices used: Benesight Endotracheal tube insertion site: oral ETT size (mm): 7.0 Measured from: lips Measurement (cm): 22 Placement verified by: capnometry Cormack-Lehane Classification: grade I - full view of glottis Number of attempts at approach: 1 Failed airway: no Unrecognized esophageal intubation: no Airway not difficult SIGNATURE: Patricia Aragon APRN.CHEMISTRY INTERN PATIENT NAME: Sheyla Lea DATE: September 03, 2023 TIME: 7:55 AM CSN: [id number] [facility] 08-25-2023 Miscellaneous Notes Addended by: JOHN HUMPHREY on: 08/25/2023 02:01 PM Modules accepted: Orders documented in this encounter [facility] 08-25-2023 History of Presen t illness Narrative [address] [facility] [address] Patient: Sheyla Lea Date of : 2005 Encounter Date: 08/25/2023 History of Present Illness: The patient is a 18 y.o. female, an established patient, and is here for Chief Complaint Patient presents with New Patient . HPI Patient is here to establish care from [facility] where she saw Shanna hewitt nurse practitioner. She recently moved to [place] and this is a closer drive for her. 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 In the last several months her PCP started Zoloft for anxiety and depression and patient feels her symptoms are 50-75% improved. During breakthrough episodes of anxiety and to help her sleep she takes 25 mg of hydroxyzine at night which helps with her panic symptoms. She has no adverse side effects to either these medications. Patient's last menstrual period was June 21 and states she is not . Her periods are irregular sometimes has to per month or skips months. She was last sexually active vaginally 1 month ago and has had 1 male partner in the last 1 year. She has unprotected sex. Patient is not on any control method at this time. She has tried Nexplanon and had it in for 3 years then use Depo for 1 shot but decided she did not want anything. Patient is trying to lose weight and is going to the gym 5 times per week with her boyfriend and she is tracking her calories and using portion control to lose weight. She has upcoming total thyroidectomy surgery scheduled for September 02 with [facility] ENT for nodules, chronic pharyngitis and family history of grandma having thyroid cancer. Patient has concerns for some acne to her face and has used a lot of washes and creams with no improvement. She has never seen dermatology for this and feels like her acne is worse now that she is off control. Patient would like to know what kinds of washes or face creams she could use. Patient also has had GERD for about the last 6 months and for the last 3 months she has been taking 40 mg of Prilosec daily with some Zofran for breakthrough nausea symptoms. Her mother has history of hiatal hernia and esophageal dilatation surgery. Patient has never had an EGD in the past. Symptoms have improved on the PPI but she still has to use the Zofran once every other week or so. Problem List Items Addressed This Visit Digestive GERD (gastroesophageal reflux disease) Endocrine Thyroid nodule Other Generalized anxiety disorder Relevant Medications sertraline (ZOLOFT) 100 mg tablet Moderate major depression (CMS-HCC) Relevant Medications sertraline (ZOLOFT) 100 mg tablet Other Visit Diagnoses Encounter for medical examination to establish care - Primary Class 2 obesity due to excess calories without serious comorbidity with body mass index (BMI) of 38.0 to 38.9 in adult Cystic acne Relevant Medications sertraline (ZOLOFT) 100 mg tablet Past Medical, Family, and Social History Update: The following portions of the patient's history were reviewed and updated as appropriate: allergies, current medications, past family history, past medical history, past social history, past surgical history and problem list. Past Medical History: Diagnosis Date Allergic seasonal Past Surgical History: Procedure Laterality Date EUSTACHIAN TUBE DILATION Bilateral 06/28/2017 Performed by Abdullahi Cavazos MD at [facility] MYRINGOTOMY W/ TUBES 2011 TONSILLECTOMY ADENOIDECTOMY Bilateral 06/28/2017 Performed by Abdullahi Cavazos MD at [facility] Current Outpatient Medications Medication Sig Dispense Refill clindamycin-benzoyl peroxide (BENZACLIN) gel Apply 1 Application topically in the morning and 1 Application before bedtime. 25 g 1 hydrOXYzine (ATARAX) 10 mg tablet Take 1 tablet (10 mg total) by mouth nightly as needed for itching. 30 tablet 0 omeprazole (PriLOSEC) 40 mg capsule Take 1 capsule (40 mg total) by mouth in the morning. 60 capsule 1 ondansetron ODT (ZOFRAN ODT) 4 mg disintegrating tablet Dissolve 1 tablet (4 mg total) on tongue every 8 (eight) hours as needed for nausea or vomiting. 20 tablet 1 sertraline (ZOLOFT) 100 mg tablet Take 1 tablet (100 mg total) by mouth in the morning. 90 tablet 1 No current facility-administered medications for this visit. (All medications reviewed and updated by provider since last office visit or hospitalization) Allergies: Patient has no known allergies. Tobacco History: Social History Tobacco Use Smoking Status Never Smokeless Tobacco Never (If patient a smoker, smoking cessation counseling offered) Social History: Social History Substance and Sexual Activity Alcohol Use No Review of Systems: Review of Systems Constitutional: Negative for activity change, appetite change, fatigue and unexpected weight change. HENT: Negative. Respiratory: Negative. Cardiovascular: Negative. Gastrointestinal: Positive for abdominal pain, constipation and nausea. Negative for diarrhea and vomiting. Reflux/dyspepsia Genitourinary: Negative. Musculoskeletal: Negative. Neurological: Negative. Psychiatric/Behavioral: Negative. Physical Exam: BP 110/62 (BP Site: Left Arm, BP Postition: Sitting) Pulse 92 Temp 36.8 C (98.3 F) (Tympanic) Ht 160 cm (5' 3 ) Wt 98.5 kg (217 lb 3.2 oz) SpO2 97% BMI 38.48 kg/m Physical Exam Vitals reviewed. Constitutional: Appearance: Normal appearance. She is obese. HENT: Head: Normocephalic and atraumatic. Right Ear: Tympanic membrane, ear canal and external ear normal. Left Ear: Tympanic membrane, ear canal and external ear normal. Nose: Congestion present. Mouth/Throat: Mouth: Mucous membranes are moist. Eyes: Pupils: Pupils are equal, round, and reactive to light. Neck: Thyroid: No thyroid mass, thyromegaly or thyroid tenderness. Cardiovascular: Rate and Rhythm: Normal rate and regular rhythm. Heart sounds: Normal heart sounds. Pulmonary: Effort: Pulmonary effort is normal. Breath sounds: Normal breath sounds. Abdominal: General: Bowel sounds are normal. Palpations: Abdomen is soft. There is no mass. Tenderness: There is no abdominal tenderness. There is no guarding or rebound. Hernia: No hernia is present. Musculoskeletal: Right lower leg: No edema. Left lower leg: No edema. Lymphadenopathy: Cervical: No cervical adenopathy. Skin: General: Skin is warm. Capillary Refill: Capillary refill takes less than 2 seconds. Neurological: General: No focal deficit present. Mental Status: She is alert and oriented to person, place, and time. Gait: Gait normal. Psychiatric: Mood and Affect: Mood normal. Behavior: Behavior normal. Assessment and Plan: Sheyla was seen today for new patient. Diagnoses and all orders for this visit: Encounter for medical examination to establish care Class 2 obesity due to excess calories without serious comorbidity with body mass index (BMI) of 38.0 to 38.9 in adult Generalized anxiety disorder Moderate major depression (CMS-HCC) Gastroesophageal reflux disease, unspecified whether esophagitis present Cystic acne Thyroid nodule Other orders - clindamycin-benzoyl peroxide (BENZACLIN) gel; Apply 1 Application topically in the morning and 1 Application before bedtime. - hydrOXYzine (ATARAX) 10 mg tablet; Take 1 tablet (10 mg total) by mouth nightly as needed for itching. - sertraline (ZOLOFT) 100 mg tablet; Take 1 tablet (100 mg total) by mouth in the morning. - omeprazole (PriLOSEC) 40 mg capsule; Take 1 capsule (40 mg total) by mouth in the morning. - ondansetron ODT (ZOFRAN ODT) 4 mg disintegrating tablet; Dissolve 1 tablet (4 mg total) on tongue every 8 (eight) hours as needed for nausea or vomiting. Follow-up: Patient is working on weight loss through exercise and portion control and counting calories. It was also recommended that she could start weight watchers and that we offer medically monitored weight loss here. This would have to be after her thyroidectomy. Goal body mass index of less than 25%. Increase Zoloft to 100 mg. She is tolerating the medicine without side effects and may benefit from the higher dose with goal of 75% improvement in her depression/ anxiety symptoms. She is involved in counseling every 2 weeks through telehealth. Continue her PPI until after surgery in 10 days and then start to wean off to every other day for 1 week then every 3rd day for a week then as needed. If her reflux symptoms continue she should notify me at follow-up visit and we will consider EGD. She should follow anti-reflux precautions. Patient's cystic acne may improve after thyroidectomy. She may start salicylic acid wash then clindamycin/ benzoyl peroxide gel then apply CeraVe a.m. moisturizer with SPF. We will recheck this at patient's follow-up appointment. ANITA ELMORE APRN-ANDREW Pacheco 08/25/23 1410 documented in this encounter [employer] 08-25-2023 Instructions John Humphrey PA-C - 08/25/2023 7:49 AM EDT PATIENT PREOPERATIVE INSTRUCTIONS No ref. provider found has scheduled you for your procedure at this surgery center: [facility] Scheduling Office: [phone] --[address] [place] [address]. Please read below carefully for your personalized [...] taking for the 08/25/23 encounter (PAT) with [address] [place] [address]. If you start any new medications after [...] Procedures: - YOU MUST HAVE A RESPONSIBLE DIRECTOR CUSTOMER TAKE YOU HOME. A MANAGER SEMICONDUCTOR OR ENGINE BUILDUP MECHANIC CANNOT BE MADE A RESPONSIBLE DIRECTOR CUSTOMER. - We recommend that a responsible person [...] call the Wednesday before. Your surgeon s sealing and canceling machine operator will tell you what time to call the office. - If you have not reached the departmental sealing and canceling machine operator by 5 P.M., call [phone] after 5 P.M. the day before your surgery. Please be aware that emergency situations arise, which may delay or change your surgical time. If this happens, we will notify you as soon as possible and regret any inconvenience. If you already have an Advance Directive, please fax a copy to [phone] or email to for it to be [...] John Humphrey PA-C documented in this encounter [facility] 08-25-2023 History and physical note HISTORY [...] COVID-19 original vaccine, age 12+ yr, monovalent ([employer] - PURPLE TOP) 10/21/2020 Imm Admin: COVID-19 original vaccine, age 12+ yr, monovalent ([employer] - PURPLE TOP) CHIEF COMPLAINT: Pre-op evaluation [...] CAD, chest pain, CHF, DVT/PE, hypertension, recent [place], murmur/valvular heart disease and PVD. GI: Positive [...] or any previous visit (from the past 93817 hour(s)). Instructions Given to Patient: Instructions located in the after visit summary. Patient given verbal and written preop instructions and voices comprehension and compliance. SIGNATURE: John Humphrey PA-C PATIENT NAME: Sheyla Lea DATE: August 25, 2023 TIME: 7:58 AM PAGER/CONTACT #: documented in this encounter [facility] 08-18-2023 Note HNO ID: [id number] Author: GRETEL STEVENS MD Service: ? Author [...] LH, estradiol - Consider pelvic US by PLATEN GRINDER - Weight loss recommendations: Advised about lifestyle [...] (H) ( Neck Ultrasound: 05/17/2023 Ultrasound Machine: [employer] Transducer: Linear 11 MHz Regions examined: Thyroid [...] DATE OF EXAM: Apr 19 2022 8:15AM [facility] 1048 - US THYROID/PARATHYROID / PROCEDURE REASON: multiple diagnoses * * * * Physician Inter (more content not included)... [facility] 08-18-2023 History of Presen t illness Narrative [...] LH, estradiol - Consider pelvic US by PLATEN GRINDER - Weight loss recommendations: Advised about lifestyle [...] (H) ( Neck Ultrasound: 05/17/2023 Ultrasound Machine: [employer] Transducer: Linear 11 MHz Regions examined: Thyroid [...] DATE OF EXAM: Apr 19 2022 8:15AM [facility] 1048 - US THYROID/PARATHYROID / PROCEDURE REASON: [...] 2 points Echogenicity: Hypoechoic, 2 points Shape: Ksyig-recq-jydl, 0 points Margin: Lobulated or irregular, 2 [...] QUANTITATIVE; Future This note was created using [employer] dictation software. You may find errors that were missed during proofreading. They are purely unintentional and if there are any concerns regarding this dictation, please do not hesitate to contact the dictating provider for clarification. Discussed with Attending Staff, Dr. Cerda Addendum to follow. Yesi Pizano MD Clinical Fellow Endocrinology and Metabolism [place] Attending Note I evaluated the patient and [...] Gretel Stevens MD documented in this encounter [facility] 08-02-2023 Miscellaneous Notes Spoke with patient [...] to consider it. She will see her sr account executive which is a new sr account executive in August and then if still interested in pursuing thyroidectomy will reach out to me. In the meantime we can hold a surgical date. Latasha Bobo MD Pt calling for lab results. Please call documented in this encounter [facility] 05-20-2023 Evaluation note Encounter Date Diagnosis Assessment Notes May, Moderate major depression (ICD-10 - F32.1) May, Chronic GERD (ICD-10 - K21.9) [employer] Other 12-08-2023 NoteHNO ID: [id number] Author: Latasha Bobo MD Service: ? Author Type: Physician Type: Progress Notes Filed: 05/17/2023 1:09 AM Note Text: [facility]NS follow-up CC: thyroid nodules HPI: [...] mobility normal Neck Ultrasound: 05/17/2023 Ultrasound Machine: [employer] Transducer: Linear 11 MHz Regions examined: Thyroid [...] Making Level: 3 - Low Latasha Bobo [facility]11-17-2023 Evaluation note* Encounter Date Diagnosis Assessment Notes [...] left side of neck. will get US. [employer] Other 09-13-2023 NotePatient Education Materials Follows:Disease Viral [...] home: Managing pain and congestion ? Take bfbb-rgg-qfwtkgm and prescription medicines only as told by [...] water are not available, use alcohol-based hand installation coordinator. ? Cover your mouth when you cough. [...] against viruses. 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 Living on her [...] Weight gain (ICD-10 - R63.5) see above [employer] Other 08-23-2023 NoteEducation Materials Gastroenterology Constipation, Adult [...] in fat and sugar, such as: ? Italian fries. ? Hamburgers. ? Cookies. ? Candy. ? Soda. ? Drink enough fluid to keep your pee (urine) pale yellow. General instructions ? Exercise regularly or as told by your doctor. Try to do 150 minutes of exercise each week. ? Go to the restroom when you feel like you need to poop. Do not hold it in. ? Take zqti-fzp-rwcmxan and prescription medicines only as told by [...] your pee (urine) pale yellow. ? Take qqtp-rdg-rtztzmp and prescription medicines only as told by your doctor. These include any fiber supplements. This information is not intended to replace advice given to you by your health care provider. Make sure you discuss any questions you have with your health care provider. Document Revised: 03/20/2020 Document Reviewed: 03/20/2020 ElseSIPphone Patient Education ? 2022 [employer] Abdominal Pain, Adult Many things can cause belly (abdominal) pain. Most times, belly pain is not dangerous. Many cases of belly pain can be watched and treated at home. Sometimes, though, belly pain is serious. Your doctor will try to find the cause of your belly pain. Follow these instructions at home: Medicines ? Take rvsd-sjt-fsqgijc and prescription medicines only as told by [...] belly pain for any changes. ? Take ivtc-ygs-sxiabvy and prescription medicines only as told by [...] 09/11/2019 Document Reviewed: 09/11/19 (more content not included)...[facility] CenterPhydapcc10-08-1442 NotePatient Education Materials Follows: Antibiotic Medicine, Adult [...] Follow these instructions at home: ? Take nuxg-qpa-sqybpru and prescription medicines as told by your health care provider. ? Return to your normal activities as told by your health care provider. Ask your health care provider what activities are safe for you. ? Keep all follow-up visits as told by your health care provider. This is important. Contact a health care provider if: ? (more content not included)...[facility] [id number] NotePatient Education Materials Follows: Corneal Abrasion A [...] condition may be caused by: ? A associate engineer the eye. ? A gritty or irritating [...] in diseases and conditions of the eye (rehabilitation medicine physician). This condition may be diagnosed based on your medical history, symptoms, and an eye exam. Before the eye exam, numbing drops may be put into your eye. You may also have dye put in your eye with a dropper or a small paper strip. The dye makes the abrasion easy to see when your rehabilitation medicine physician examines your eye with a light. Your rehabilitation medicine physician may look at your eye through an [...] you start to feel better. ? Take hubt-fbm-oiohvtm and prescription medicines only as told by your health care provider. ? Ask your health care provider if the medicine prescribed to you: ? Requires you to avoid driving or using heavy machinery. ? Can cause constipation. You may need to take these actions to prevent or treat constipation: ? Drink enough fluid to keep your urine pale yellow. ? Take riof-qnp-vaqmbwi or prescription medicines. ? Eat foods that [...] wearing an eye patch. Your ability to interactive media marketing strategist distances will beimpaired. ? Follow instructions from [...] You have vision loss (more content not included)...[facility] [id number] NoteEducation Materials Cardiovascular Hypertension, Adult High blood [...] without skin, beans, e (more content not included)...[facility] CenterBkfimpoj04-12-6067 NotePatient Education Materials Follows: Otitis Media, Adult [...] Follow these instructions at home: ? Take tdnn-bos-uywducg and prescription medicines only as told by [...] provider. Document Revised: 08/11/2021 Document Reviewed: 08/11/2021 Elsevier Patient Education ? 2021 [employer].[facility] [id number] Nurse Note* Carmela Pleitez Ma - 05/28/2022 8:31 AM EST Tobacco Use: Never Was smoking cessation packet given? N/A - Patient is a non-smoker or quit >1 year ago. Was a referral initiated?N/A Patient is a non-smoker [facility] History of Present illness Narrative* Latasha Bobo MD - 05/28/2022 8:24 AM EST [facility] Consult This consult was requested by Mana Aguilar, SANGEETHA* for an opinion regarding thyroid nodule. My [...] 2 points Echogenicity: Hypoechoic, 2 points Shape: Zetry-ntrb-qlvw, 0 points Margin: Lobulated or irregular, 2 [...] in 6 months with repeat thyroid US. Salinsa Tam MD for the service of Latasha [...] palpable lymphadenopathy Neck Ultrasound: 06/02/2022 Ultrasound Machine: [employer] Transducer: Linear 11 MHz Regions examined: Thyroid [...] to set up visit with a new sr account executive now that she is nearly an adult [...] Low Latasha Bobo MD [facility] Miscellaneous Notes* Telephone Encounter - Mana Aguilar APRN.CNP - 04/24/2022 11:27 AM EST Called mother to discuss follow up. Received voicemail with identification as Mana Lea. I left a voicemail stating that patient should follow up with adult ENT Dr. Latasha Bobo. Advised that if patient's mother has not heard from office to schedule by the middle of next week, she should call to set up the appointment. I left the scheduling line number for her to call if needed: [phone]. After discussion with Dr. Chaparro, the plan of care is for Sheyla to follow up with adult ENT first. She should be scheduled with Dr. Latasha Bobo. Consult to adult ENT placed with instructions to schedule with Dr. Latasha Bobo. Will send message to scheduling. No active mychart to send message to patient. [facility] Miscellaneous Notes* Telephone Encounter - Mana Aguilar APRN.CNP - 04/21/2022 1:16 PM EST Called and spoke to mother of Sheyla about thyroid ultrasound results. Discussed that the nodules inthyroid have grown, which warrants further work up and evaluation to rule out any malignancy. I discussed with mother that Sheyla should follow up with Dr. Chaparro in the [facility] for further evaluation. Discussed that there is [...] schedule. Mana Aguilar APRN.CNP [facility] Miscellaneous Notes* Telephone Encounter - Mana [...] care. Mana Aguilar APRN.CNP [facility] Instructions* Patient Instructions* Mana Aguilar APRN.CNP - 04/15/2022 2:17 PM EST Please get labs Please schedule for ultrasound Follow up with nutrition for dietary guidance [facility] History of Present illness Narrative* Mana Aguilar APRN.CNP - 04/15/2022 2:01 PM EST Images from the original note were not included. [facility] Division of Pediatrics CLINIC NOTE [...] note: Initial presentation was when she saw stem roller Dr Pleitez for pelvic pain who noticed thyromegaly so ordered US and TFTs. US showed small nodule (8m5p4gw) with benign features and gland was non [...] 0.8 - 2.1 ng/dL 1.1 Scanned into [employer] from 06/08/2018: FSH 7, LH 3.3 Testosterone [...] -0.47) based on CDC (Girls, 2-20 Years) Wajlnpa-zgq-iof data based on Stature recorded on 04/15/2022. Weight: 98 %ile (Z= 2.01) based on [facility] (Girls, 2-20 Years) mdabti-tiw-ejm data using vitals from 04/15/2022. BMI: 90% [...] for 30 minutes. Denies poly symptoms. Encouraged software application tester visit. I spent a total of 40 minutes on the date of the service which included preparing to see the patient, tjra-yc-mxkx patient care, completing clinical documentation, obtaining and/or reviewing separately obtained history, performing a medically appropriate examination, counseling and educating the pat ient/family/caregiver, and ordering medications, tests, or procedures. Follow up in 6 months. Mana Aguilar APRN-JOSE LUIS cc: [place] [id number] [address] [facility] [address] Parent of Sheyla Lea [address] [place] [phone] documented [facility] NotePatient Education Materials Follows: Foot Pain [...] clean and dry. General instructions ? Take nkqm-gbh-favvtln and prescription medicines only as told by [...] provider. Document Revised: 08/06/2021 Document Reviewed: 08/06/2021 ElseSIPphone Patient Education ? 2021 [employer] Ankle Pain The ankle joint holds [...] by your health care provider. ? Take bywu-jez-kwqrvxe and prescription medicines only as told by your health care provider. ? Keep all follow-up visits as told by your health care provider. This is important. (more content not included)...[facility] [id number] History general Narrative - Reported* Type Description Date Medical History Hx of ear infections Medical History ingrown toenail Surgical History tubes in bilateral ears 2011 Surgical History tonsillectomy and adenoidectomy 06/2017 Surgical History tubes in bilateral ears 06/2017 [employer] Other Evaluation note* Diagnosis Abnormal thyroid blood test- Primary Nonspecific abnormal results of thyroid function study History of thyroid nodule Personal history of other endocrine, metabolic, and immunity disorders Obesity, pediatric, BMI greater than or equal 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 [facility] Diagnosis Abnormal thyroid blood test- Primary Nonspecific abnormal results of thyroid function study History of thyroid nodule Personal history of other endocrine, metabolic, and immunity disorders documented in this encounter [facility] note* Diagnosis Thyroid nodule- Primary Nontoxic uninodular goiter Abnormal thyroid blood test Nonspecific abnormal results of thyroid function study History of thyroid nodule Personal history of other endocrine, metabolic, and immunity disorders [facility] noteNo InformationNort [employer] Other Evaluation noteNo assessment information [facility] Work Phone: Evaluation note* Diagnosis Abnormal thyroid blood test Nonspecific abnormal results of thyroid function study History of thyroid nodule Personal history of other endocrine, metabolic, and immunity disorders documented in this encounter [facility] note* Diagnosis Thyroiditis- Primary Thyroiditis, unspecified documented in this encounter [facility] note* Diagnosis Pre-op evaluation- Primary Preoperative examination, unspecified Gastroesophageal reflux disease, unspecified whether esophagitis present Obesity, pediatric, BMI greater than or equal 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 Thyroiditis Thyroiditis, unspecified documented in this encounter [facility] note* Diagnosis PCOS (polycystic ovarian syndrome)- Primary Polycystic ovaries Thyroid nodule Nontoxic uninodular goiter Thyroiditis Thyroiditis, unspecified documented in this encounter [facility] note* Diagnosis Hypothyroidism (acquired)- Primary Unspecified hypothyroidism [facility]* Diagnosis Mood disorder (CMS/HCC) Unspecified episodic mood disorder Anxious mood Anxiety state, unspecified Hormone imbalance Irregular periods Weight gain Other symptoms concerning nutrition, metabolism, and development [facility] Encounter for weight management [facility]* Diagnosis Anxiety, generalized (CMS/HCC)- Primary Postoperative visit S/P laparoscopy Other postprocedural status Encounter for repeat prescription of oral contraceptives [facility] Diagnosis Weight gain- Primary Other symptoms concerning nutrition, metabolism, and development documented in [facility] encounter [facility]* Diagnosis Flu-like symptoms- Primary Acute non-recurrent frontal sinusitis Yeast vaginitis [facility] Postoperative hypothyroidism- Primary Postsurgical hypothyroidism [facility] Diagnosis Wellness examination- Primary Tinea pedis of right foot Postoperative hypothyroidism Postsurgical hypothyroidism Generalized anxiety disorder High risk heterosexual behavior [facility] Diagnosis Tinea pedis of both feet- Primary [facility] Diagnosis Encounter for medical examination to establish care- Primary Class 2 obesity due to excess calories without serious comorbidity with body mass index (BMI) of 38.0 to 38.9 in adult Generalized anxiety disorder Moderate major depression ([facility]) Major depressive disorder, single episode, moderate Gastroesophageal reflux disease, unspecified whether esophagitis present Cystic acne Other acne Thyroid nodule Nontoxic uninodular goiter [facility] Diagnosis Postoperative hypothyroidism- Primary Postsurgical hypothyroidism [facility] Diagnosis Gastroesophageal reflux disease, unspecified whether esophagitis present- Primary Postoperative hypothyroidism Postsurgical hypothyroidism Acute hemorrhoid Delayed gastric emptying Dyspepsia and other specified disorders of function of stomach Influenza vaccination administered at current visit [facility] Diagnosis Gastroesophageal reflux disease, unspecified whether esophagitis present- Primary Esophageal dysphagia Dysphagia, pharyngoesophageal phase Allergic contact dermatitis, unspecified trigger Chronic idiopathic constipation Unspecified constipation [facility] Diagnosis Esophageal dysphagia- Primary Dysphagia, pharyngoesophageal phase Gastroesophageal reflux disease without esophagitis Esophageal reflux [facility] Diagnosis Postoperative hypothyroidism- Primary Postsurgical hypothyroidism [facility] Diagnosis Postoperative hypothyroidism- Primary Postsurgical hypothyroidism Acute nonintractable headache, unspecified headache type Gastroesophageal reflux disease, unspecified whether esophagitis present Immunization due [facility] Diagnosis Nausea- Primary Nausea alone Cramping affecting , antepartum ([facility]) Missed menses documented in this encounter [facility] HealthcareEvaluation [facility]* Diagnosis Missed menses , unspecified gestational age ([facility]) Encounter for supervision of normal first in first trimester ([facility]) documented in this encounter [facility] HealthcareInstructionsNot on filedocumented in this encounterProMedi[facility] SystemInstructionsNot on filedocumented in this encounterProMediHock[facility] SystemInstructionsNot on filedocumented in this [facility] System InstructionsNot on filedocumented in this [facility] HospitalEmployee Benef[facility] Solutions System InstructionsNot on filedocumented in this [facility] HospitalEmployee [facility] System InstructionsNot on filedocumented in this [facility] System Instructions* Attachments The following attachments cannot be sent through Care Everywhere. * Acid Reflux and GERD in Adults Discharge Instructions ([place] Citizen) documented in this encounterProPremier Health Upper Valley Medical CenterEmployee Benefit Solutions SystemInstructionsNot on file documented in this encounterProPremier Health Upper Valley Medical CenteriDreamBooks Health SystemInstructionsNot on file documented in this encounterProPremier Health Upper Valley Medical CenteriDreamBooks Health SystemInstructionsNot on file documented in this encounterProPremier Health [facility] Medical CenterEmployee Benefit Solutions SystemInstructionsNot on file documented in this encounterTr[facility] Frogdice SystemInstructions* Attachments The following attachments cannot be sent through Care Everywhere. * Acid Reflux and GERD in Adults Discharge Instructions ([place] Citizen) documented in this encounterMercy Health Anderson HospitalEmployee Benefit Solutions SystemInstructionsNot on file documented in this encounterProPremier Health Upper Valley Medical CenterEmployee Benefit Solutions SystemInstructionsNot on file documented in this encounterProPremier Health [facility] Medical CenterEmployee Benefit Solutions SystemInstructionsNot on file documented in this encounterMercy Health Anderson HospitalEmployee Benefit Solutions SystemInstructionsNot on file documented in this encounterTrinity [facility] Frogdice SystemReason for referral (narrative)* Diagnostic Procedure Only (Routine) - Authorized Specialty Diagnoses / Procedures Referred By Rodger matute Referred To Contact [facility] IMAG[facility] Diagnoses Abnormal thyroid blood test History of thyroid nodule Procedures US THYROID/PARATHYROID US SOFT TISSUE HEAD & NECK REAL TIME IMGE DOCM Mana Aguilar APRN.CNP [address] [place] [address] [facility] Referral ID Status Reason Start Date Expiration Date Visits Requested Visits Authorized [id number] Authorized Auto-Generat ed Referral 2 05/15/2023 1 1 * Consult, Test, Treat (Routine) - Authorized Specialty Diagnoses / Procedures Referred By Rodger matute Referred To Contact Pediatric Nutrition Diagnoses Obesity, pediatric, BMI greater than or equal 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 Procedures CONSULT TO PED NUTRITION OFFICE/OUTPATIENT NEW HIGH [facility] 60-74 MINUTES Mana Aguilar APRN.CNP [address] [phone] Referral ID Status Reason Start Date Expiration Date Visits Requested Visits Authorized [id number] Authorized PCP Requested Referral 2 04/15/2023 1 1 [facility] for referral (narrative)* Reason counseling - john if able, if not [facility] anxiety/depression/stress Diagnosis 1 Mild major depressio n (F32.0) Diagnosis 2 Generalized anxiety disorder (F41.1) Referral Organization [facility] Referring Provider First Name Aime Referring Provider Last Name [place] Referring Provider Specialty Family [facility] Referred Organization Unknown Facility Referred Provider Specialty Other Medica l Care Referral Priority Routine [facility] Other Reason for referral (narrative)* Diagnostic Procedure Only (Routine) - Closed Specialty Diagnoses / Procedures Referred By Rodger matute Referred To Contact US IMAGING Diagnoses Abnormal thyroid blood test History of thyroid nodule Procedures US THYROID/PARATHYROID US SOFT TISSUE HEAD & NECK REAL TIME IMGE DOC Mana Aguilar APRN.CNP [address] [phone] [facility] [place] [address] Referral ID Status Reason Start Date Expiration Date V isits Requested Visits Authorized [id number] Closed Auto-Generate d Referral 04/15/2022 05/15/2023 1 1 [facility] for referral (narrative)* Outpatient Procedure (Routine) - Pending Review Specialty Diagnoses / Procedures Referred By Contnick t Referred To Contact [facility] Diagnoses Thyroiditis Procedures ECG COMPLETE ECG ROUTINE ECG W/LEAST 12 LDS W/I&R Latasha Bobo MD [address] [place] [address] [facility] [place] [address] [place] [address] Referral ID Status Reason Start Date Expiration Date Visits Requested Visits Authorized [id number] Pending Review Auto-Generat ed Referral 08/02/2023 08/01/[address] [facility] for referral (narrative)* Consultation (Routine) - Pending Review Specialty Diagnoses / Procedures Referred By Contac t Referred To Contact Gastroenterology Diagnoses Esophageal dysphagia Gastroesophageal reflux disease without esophagitis Anita Elmore APRN-ORGANISATION AND METHODS ANALYST [address] [place] [address] Meliton Dow MD [address] [address] Referral ID Status Reason Start Date Expiration Date Visits Requested Visits Authorized [id number] Pending Review Specialty Services Required 02/10/2024 02/09/2025 1 1 [facility] for visit Narrative* Diagnostic Procedure Only (Routine) - Closed Specialty Diagnoses / Procedures [facility]erred By [facility] Referred To Contact US IMAGING Diagnoses Abnormal thyroid blood test History of thyroid nodule Procedures US THYROID/PARATHYROID US SOFT TISSUE HEAD & NECK REAL TIME IMGE DOCM Mana Aguilar APRN.ORGANISATION AND METHODS ANALYST [address] [place] [address] [place] [address] Referral ID Status Reason Start Date Expiration Date V isits Requested Visits Authorized [id number] Closed Auto-Generate d Referral 04/15/2022 05/15/2023 1 1 [facility] Summary Purpose Family History No Family [...] Specialty Diagnoses / Procedures Referred By Rodger t Referred To Contact Ent - Otolaryngology Diagnoses Abnormal thyroid blood test History of thyroid nodule Procedures CONSULT TO ENT OFFICE/OUTPATIENT [facility] MDM 60-74 MINUTES Mana Aguilar APRN.ORGANISATION AND METHODS ANALYST [address] [place] [address] Referral ID Status Reason Start Date Expiration Date Visits Requested Visits Authorized [id number] Authorized PCP Requested Referral 04/24/2022 04/24/2023 1 [...] or prosecute any alcohol or drug abuse patient.[facility] HospitalIn the event this information is protected by the Federal Confidentiality of Alcohol and Drug Abuse Patient Records regulations: The Federal rules restrict any use of the information to criminally investigate or prosecute any alcohol or drug abuse patient.[facility] HospitalIn the event this information is protected by the Federal Confidentiality of Alcohol and Drug Abuse Patient Records regulations: The Federal rules restrict any use of the information to criminally investigate or prosecute any alcohol or drug abuse patient.[facility] HospitalIn the event this information is protected by the Federal Confidentiality of Alcohol and Drug Abuse Patient Records regulations: The Federal rules restrict any use of the information to criminally investigate or prosecute any alcohol or drug abuse patient.[facility] HospitalIn the event this information is protected by the Federal Confidentiality of Alcohol and Drug Abuse Patient Records regulations: The Federal rules restrict any use of the information to criminally investigate or prosecute any alcohol or drug abuse patient.[facility] HospitalIn the event this information is protected by the Federal Confidentiality of Alcohol and Drug Abuse Patient Records regulations: The Federal rules restrict any use of the information to criminally investigate or prosecute any alcohol or drug abuse patient.[facility] HospitalIn the event this information is protected by the Federal Confidentiality of Alcohol and Drug Abuse Patient Records regulations: The Federal rules restrict any use of the information to criminally investigate or prosecute any alcohol or drug abuse patient.[facility] HospitalIn the event this information is protected by the Federal Confidentiality of Alcohol and Drug Abuse Patient Records regulations: The Federal rules restrict any use of the information to criminally investigate or prosecute any alcohol or drug abuse patient.[facility] HospitalIn the event this information is protected by the Federal Confidentiality of Alcohol and Drug Abuse Patient Records regulations: The Federal rules restrict any use of the information to criminally investigate or prosecute any alcohol or drug abuse patient.[facility] HospitalIn the event this information is protected by the Federal Confidentiality of Alcohol and Drug Abuse Patient Records regulations: The Federal rules restrict any use of the information to criminally investigate or prosecute any alcohol or drug abuse patient.[facility] HospitalIn the event this information is protected by the Federal Confidentiality of Alcohol and Drug Abuse Patient Records regulations: The Federal rules restrict any use of the information to criminally investigate or prosecute any alcohol or drug abuse patient.[facility] HospitalIn the event this information is protected by the Federal Confidentiality of Alcohol and Drug Abuse Patient Records regulations: The Federal rules restrict any use of the information to criminally investigate or prosecute any alcohol or drug abuse patient.[facility] HospitalIn the event this information is protected by the Federal Confidentiality of Alcohol and Drug Abuse Patient Records regulations: The Federal rules restrict any use of the information to criminally investigate or prosecute any alcohol or drug abuse patient.[facility] Reason for Visit (unrecogniz ed section [...] OFFICE/OUTPATIENT NEW HIGH MDM 60-74 MINUTES Mana Aguilar, CANDY DECORATOR.ORGANISATION AND METHODS ANALYST [address] [place] [address] [facility] [address] [place] [address] Referral ID Status Reason Start Date Expiration Date V isits Requested Visits Authorized [id number] Closed PCP Requested Referral 04/24/2022 04/24/2023 1 1 Reason Comments Appointment LM that appt was res cheduled Reason Comments Results Reason Comments Pre-Op Visit Reason Comments Thyroid Problem Reason Onset Date Comments Refill Request 10/04/2023 Reason Comments Follow Up Post op Reason Comments Medication Visit Reason Comments encounter for weight loss Reason Comments Post-op Visit Pt present today for post op visit. S/p dx lap 01/14/2024 Reason Comments Sore Throat Nasal Congestion Generalized Body Aches Fever Cough Reason Comments Annual Exam Reason Comments athletes foot spread to hands. skin crac christina Reason Onset Date Comments Med Refill 11/25/2023 Reason Onset Date Comments Med Refill 12/27/2023 Reason Comments New Patient Reason Comments Med Refill Reason Comments post op Reason Comments Med Change Request Reason Comments swallowing issues Reason Comments discussion medications Reason Comments ER Follow-up Cramping in Early pr egnancy Reason Comments Amenorrhea Care Teams (unrecognized sec tion and content) Moisture Machine Tender Relationship Specialty Start Date End Date Jas Salgado [address] [place] [address] [place] [address] PCP - General Family Medicine 04/20/13 Moisture Machine Tender Relationship Specialty Start Date End Date Jas Salgado [address] [address] [place] [address] PCP - General Family Medicine 04/20/13 Moisture Machine Tender Relationship Specialty Start Date End Date Jas Salgado [address] [place] [address] PCP - General Family Medicine 04/20/13 Moisture Machine Tender Relationship Specialty Start Date End Date Jas Salgado [address] [place] [address] PCP - General Family Medicine 04/20/13 Moisture Machine Tender Relationship Specialty Start Date End Date Jas Salgado [address] [address] [place] [address] PCP - General Family Medicine 04/20/13 Moisture Machine Tender Relationship Specialty Start Date End Date Jas Salgado [address] [address] [place] [address] PCP - General Family Medicine 04/20/13 Team Status: Active Member Role Status Dates Kevin Stokes , DO Primary Care Provider Active Team Status: Inactive Member Role Status Dates Kevin Stokes , DO Primary Care Provider Active Braxton Toussaint DO [facility] Attending Provider Active Moisture Machine Tender Relationship Specialty Start Date End Date Jas Salgado [address] [place], [place] [id number] PCP - General Family Medicine 04/20/13 Moisture Machine Tender Relationship Specialty Start Date End Date Aime Goff DO [address] [place] [address] PCP - General Family Medicine 07/09/23 Moisture Machine Tender Relationship Specialty Start Date End Date Anita Elmore NP [address] [place] [address] PCP - General Family Medicine 08/17/23 Moisture Machine Tender Relationship Specialty Start Date End Date Anita Elmore NP [address] [place] [address] PCP - General Family Medicine 08/17/23 Moisture Machine Tender Relationship Specialty Start Date End Date Anita Elmore NP [address] [place] [address] PCP - General Family Medicine 08/17/23 Moisture Machine Tender Relationship Specialty Start Date End Date Anita Elmore NP [address] [place] [address] PCP - General Family Medicine 08/17/23 Moisture Machine Tender Relationship Specialty Start Date End Date Anita Elmore NP [address] [place] [address] PCP - General Family Medicine 08/17/23 Moisture Machine Tender Relationship Specialty Start Date End Date Regino Santoro MD [address] [facility] [place] [address] PCP - General Family Medicine 04/07/24 Moisture Machine Tender Relationship Specialty Start Date End Date Anita Elmore CANDY DECORATOR-ORGANISATION AND METHODS ANALYST [address] [place] [address] PCP - General Internal Medicine 08/25/23 Moisture Machine Tender Relationship Specialty Start Date End Date Anita Elmore CANDY DECORATOR-ORGANISATION AND METHODS ANALYST [address] [place] [address] PCP - General Internal Medicine 08/25/23 Moisture Machine Tender Relationship Specialty Start Date End Date Anita Elmore CANDY DECORATOR-ORGANISATION AND METHODS ANALYST [address] [place] [address] PCP - General Internal Medicine 08/25/23 Moisture Machine Tender Relationship Specialty Start Date End Date Anita Elmore CANDY DECORATOR-ORGANISATION AND METHODS ANALYST [address] [place] [address] PCP - General Internal Medicine 08/25/23 Moisture Machine Tender Relationship Specialty Start Date End Date Anita Elmore CANDY DECORATOR-ORGANISATION AND METHODS ANALYST [address] [place] [address] PCP - General Internal Medicine 08/25/23 Moisture Machine Tender Relationship Specialty Start Date End Date Anita Elmore CANDY DECORATOR-ORGANISATION AND METHODS ANALYST [address] [place] [address] PCP - General Internal Medicine 08/25/23 Moisture Machine Tender Relationship Specialty Start Date End Date Anita Elmore APRNBELCHERT[facility] [address] [place] [address] PCP - General Internal Medicine 08/25/23 Moisture Machine Tender Relationship Specialty Start Date End Date Anita Elmore C[facility]Y DECORATORBELCHERT[facility] [address] [place] [address] PCP - General Internal Medicine 08/25/23 Moisture Machine Tender Relationship Specialty Start Date End Date Anita Elmore [facility]ATORBEL[facility] [address] [place] [address] PCP - General Internal Medicine 08/25/23 Moisture Machine Tender Relationship Specialty Start Date End Date Anita Elmore [facility]ATORBELCH[facility] [address] [place] [address] PCP - General Internal Medicine 08/25/23 Moisture Machine Tender Relationship Specialty Start Date End Date Anita Elmore APRNBELCH[facility] [address] [place] [address] PCP - General Internal Medicine 08/25/23 Moisture Machine Tender Relationship Specialty Start Date End Date Anita Elmore CANDY DECORATORORGANISATION AND METHODS ANALYST [address] [place] [address] PCP - General Internal Medicine 08/25/23 Moisture Machine Tender Relationship Specialty Start Date End Date Anita Elmore CANDY DECORATORORGANISATION AND METHODS ANALYST [address] [place] [address] PCP - General Internal Medicine 08/25/23 Moisture Machine Tender Relationship Specialty Start Date End Date Anita Elmore, CANDY DECORATOR-ORGANISATION AND METHODS ANALYST [address] [place] [address] PCP - General Internal Medicine 08/25/23 Moisture Machine Tender Relationship Specialty Start Date End Date Anita Elmore Natalia, CANDY DECORATOR-ORGANISATION AND METHODS ANALYST [address] [place] [address] PCP - General Internal Medicine 08/25/23 Moisture Machine Tender Relationship Specialty Start Date End Date Anita Elmore Natalia CANDY DECORATOR-ORGANISATION AND METHODS ANALYST [address] [place] [address] PCP - General Internal Medicine 08/25/23 Moisture Machine Tender Relationship Specialty Start Date End Date CatarinaDalia gardnerlarry Fisher, CANDY DECORATOR-ORGANISATION AND METHODS ANALYST [address] [place] [address] PCP - General Internal Medicine 08/25/23 Moisture Machine Tender Relationship Specialty Start Date End Date Regino Santoro MD PCP - General Family Medicine 04/07/24 Moisture Machine Tender Relationship Specialty Start Date End Date Regino Santoro MD [address] [place] [address] PCP - General Family Medicine 04/07/24 Moisture Machine Tender Relationship Specialty Start Date End Date Regino Santoro MD [address] [place] [address] PCP - General Family Medicine 04/07/24 Moisture Machine Tender Relationship Specialty Start Date End Date Regino Santoro MD [address] [place] [address] PCP - General Family Medicine 04/07/24 INFORMATION SOURCE (unrecogn ized section and content) DATE CREATED AUTHOR 04/19/2022 [facility] DATE CREATED AUTHOR AUTHOR'S ORGANIZ ATION 02/07/2023 [facility] DATE CREATED AUTHOR AUTHOR'S ORGANIZ ATION 10/15/2023 [facility] DATE CREATED AUTHOR AUTHOR'S ORGANIZ ATION 03/07/2024 [facility] DATE CREATED AUTHOR AUTHOR'S ORGANIZ ATION 04/02/2024 [facility] DATE CREATED AUTHOR AUTHOR'S ORGANIZ ATION 04/03/2024 [facility] DATE CREATED AUTHOR AUTHOR'S ORGANIZ ATION 10/15/2024 [facility] DATE CREATED AUTHOR AUTHOR'S ORGANIZ ATION 12/09/2024 [facility] EPIC Goals (unrecognized section and [...] BE BASED ON THE PRIMARY CLINICAL RECORDS. [employer] provides no warranty or guarantee of the accuracy or completeness of information in this document.
[2024-12-16 10:58] LABS: Hematocrit 39.7 % (36.0-48.0); Hemoglobin 13.4 g/dL (12.0-16.0); Immature Granulocytes Abs Auto 0.01 10^3/uL (0.00-0.03); Immature Granulocytes Pct Auto 0.2 % (0.0-0.5); Lymphocytes Absolute Auto 1.5 10^3/uL (1.2-3.8); Mean Corpuscular HGB Conc 33.8 g/dL (29.9-35.2); Mean Corpuscular Hemoglobin 28.6 pg (26.7-34.0); Mean Corpuscular Volume 84.8 fL (81.0-99.0); Platelet Count 238 10^3/uL (150-450); Red Blood Count 4.68 10^6/uL (4.20-5.40); White Blood Count 6.3 10^3/uL (4.0-11.0)
[2024-12-16 11:11] LABS: Cannabinoid Screen Urine NEGATIVE (NEGATIVE); Methamphetamines Screen Urine NEGATIVE (NEGATIVE); Tricyclic Antidepressant Urine NEGATIVE (NEGATIVE)
[2024-12-16 11:27] LABS: Thyroid Stimulating Hormone 50.067 uIU/mL (0.358-3.740)
[2024-12-17 08:08] LABS: Rubella Antibodies, IgG 4.26 index (Immune >0.99)
[2024-12-17 11:09] LABS: Rapid Plasma Reagin, Quant Non Reactive titer (NonRea<1:1)
== END 2024-12-16 10:27 | disposition home or self-care (01) ==
LOC: LAB 10:29
PROVIDERS: PCP Family Medicine; Visit Provider Obstetrics & Gynecology
DX: Z34.01 Encounter for supervision of normal first pregnancy, first trimester (principal); N92.6 Irregular menstruation, unspecified; Z98.890 Other specified postprocedural states; Z90.89 Acquired absence of other organs
CPT/HCPCS: 36415; 80307; 83036; 84443; 85025; 86592; 86762; 86803; 86850; 86900; 86901; 87086; 87340; 87389

== ENCOUNTER 2024-12-18 11:25 | Emergency (ER) | payer BC, OTHER, SELFPAY ==
--- OUTSIDE RECORDS SUMMARY | 2024-11-13 17:12 | XMS_ITS ---
Author Organization The [facility] in [place] Address [address] [place] [address] Care Team Providers Care End Finder Twisting Department Name Role Phone Blair Dai Primary Care Provider [phone] REASON FOR VISIT thyroid meds Encounters Encounter Location Date Provider Diagnosis [facility] [address] [place] [address] 11/13/2024 Blair Dai Plan Of Treatment No Information Progress Notes * ROLDANPEGGYSANDRASheyla DOCKERYDOB: 5 (19 yo F)Acc No.[id number]:11/13/2024 Patient: Sheyla JO :2005 A ge:19 Y S ex:Female Address:[address] [place] [address], [address] * true * Date: Generated for Printi ng/Fasisg/eTransmitting on: 0 12/18/2024 11:39 AM EDT
--- OUTSIDE RECORDS SUMMARY | 2024-11-15 15:10 | XMS_ITS ---
Author Organization The [facility] [place] Address [address] [place] [address] Care Team Providers Care Division Plant Engineer Name Role Phone LucianoBlair koenig Primary Care Provider [phone] Results Component Value Reference Range Notes PREG QUANT HCG Reviewed date:11/18/2024 07:53:13 PM Interpretation: Performing Lab: Notes/Report: [facility] , HCG Quantitative 4630 5-50 0.2-1 WEEK 50-500 1-2 WEEKS 100-5,000 2-3 WEEKS 500-10,000 3-4 WEEKS 1,000-50,000 4-5 WEEKS 10,000-100,000 5-6 WEEKS 15,000-200,000 6-8 WEEKS 10,000-100,000 2-3 MONTHS Performing Lab: see note ML - [facility] REASON FOR VISIT check on ER Encounters Encounter Location Date Provider Diagnosis [facility] [address] [place] [address] 11/15/2024 Blair Dai Positive test Z32.01 Assessments Encounter Date Diagnosis (ICD Code) Assessment Notes Treatment Notes Treatment Clinical Notes Section Notes 11/15/2024 Positive test (ICD-10 - Z32.01) Plan Of Treatment No Information Progress Notes * VENU SheylaDOB: 5 (19 yo F)Acc No.[id number]:11/15/2024 Patient: Tosin HUNG Sheyla :2005 A ge:19 Y S ex:Female Address:[address] [place] [address], [place] [address] Subjective: * Chief Complaints: * c heck on ER * Medical History: * Surgical History: * Hospitalization/Major Diagno stic Procedure: * Medications: Objective: * Vitals: * Physical Examination: Assessment: * Assessment: 1. P ositive test - Z32.01 (Primary) Plan: * Treatment: * Procedure Codes: * true * Date: Generated for Joshua wang/Jolene/Nuhasmitting on: 0 12/18/2024 11:38 AM EDT
--- OUTSIDE RECORDS SUMMARY | 2024-11-20 03:18 | XMS_ITS ---
Author Organization The [facility] [place] Address [address] [place] [address] Care Team Providers Care Concrete Mixing Truck Driver Name Role Phone Blair Dai Primary Care Provider REASON FOR VISIT work excuse Encounters Encounter Location Date Provider Diagnosis [facility] [address] [place] [address] 11/20/2024 Blair Dai Plan Of Treatment No Information Progress Notes * JAYLONSheyla DOCKERYDOB: 5 (19 yo F)Acc No.[id number]:11/20/2024 Patient: Sheyla JO :2005 A ge:19 Y S ex:Female Address:[address] [place] [address], [address] * true * Date: Generated for Printi ng/Fasisg/eTransmitting on: 0 12/18/2024 11:38 AM EDT
--- OUTSIDE RECORDS SUMMARY | 2024-12-07 14:30 | XMS_ITS | Encounter Summary ---
Author Organization [facility] Address [address] [place] [address] Care Team Providers Care Equal Opportunity Counselor Name Role Phone Hector Dai MD Primary Care Provider [phone] Reason for Visit * Reason Comments Amenorrhea Encounter Details Date Type Department Care Team (Late st Contact Info) Description 12/07/2024 2:30 PM EDT Initial [facility] [address] [place] [address] [place] [id number] GA: 7w5d Social History Tobacco Use Types Packs/Day Years Used Date Smoking Tobacco: Never Smokeless Tobacco: Never Alcohol Use Standard Drinks/Week Comments Never 0 (1 standard drink = 0.6 oz pur e alcohol) Estimated Date of Delivery Comme nts Yes 07/21/2025 Based on Ultraso und Sex and Gender Information Value Date Recorded Sex Assigned at Not on file Legal Sex Female 10:12 PM EDT Gender Identity Female 01/05/2023 12:00 PM EDT Sexual Orientation Not on file documented as of this encounter Last Filed Vital Signs Vital Sign Reading Time Taken Comments Blood Pressure - - Pulse - - Temperature - - Respiratory Rate - - Oxygen Saturation - - Inhaled Oxygen Concentration - - Weight 106 kg (232 lb 12.8 oz) 12/07/2024 3:22 P M EDT Height - - Body Mass Index 41.24 05/09/2024 9:23 AM EST documented in this encounter Progress Notes * Tabitha Rice LPN - 12/07/2024 2:30 PM EDT Reason for Appointment: Patient ID: Sheyla Lea is a 19 y.o. female who presents for Amenorrhea Patient presents today for a Nurse OB Intake appointment. Patient is 7w5d with a Estimated Date of Delivery: 07/21/25 OB History Para Term AB Living 1 0 0 0 0 0 SAB IAB Ectopic Multiple Live Births 0 0 0 0 0 # Outcome Date GA Lbr Humberto/2nd Weight Sex Type Anes PTL Lv 1 Current Current Medications: has a current medication list which includes the following prescription(s): buspirone, bupropion sr, levothyroxine, levothyroxine, pantoprazole, and promethazine. Medical History: Active Ambulatory Problems Diagnosis Date Noted No Active Ambulatory Problems Resolved Ambulatory Problems Diagnosis Date Noted No Resolved Ambulatory Problems Past Medical History: Diagnosis Date Abnormal thyroid blood test Constipation Delayed gastric emptying Dysfunction of both eustachian tubes Dysmenorrhea Dyspepsia Dysphagia Enlarged thyroid Epistaxis Gastroparesis Generalized anxiety disorder GERD (gastroesophageal reflux disease) Hemorrhoids Hiatal hernia Ingrown toenail Irregular bleeding Irregular menses 2019 Menorrhagia with irregular cycle Mild major depression Nasal obstruction Otitis media PCOS (polycystic ovarian syndrome) Postoperative hypothyroidism Retained food in stomach Thrush Thyroid nodule Tonsillar hypertrophy Unintended weight loss Family History Problem Relation Name Age of Onset Other (Seizure disorder) Brother Breast cancer Maternal Grandmother indra whiting Thyroid disease Maternal Grandmother indra whiting Breast cancer Paternal Grandmother Alesha Lea Social History Tobacco Use Smoking status: Never Smokeless tobacco: Never Substance Use Topics Alcohol use: Never Drug use: Never Past Surgical History: Procedure Laterality Date ADENOIDECTOMY LAPAROSCOPY DIAGNOSTIC / BIOPSY / ASPIRATION / LYSIS 01/14/2024 OTHER SURGICAL HISTORY 12/28/2019 nexplanon insertion THYROIDECTOMY 09/03/2023 TONSILLECTOMY No Known Allergies Vitals: Estimated body mass index is 41.24 kg/m?? as calculated from the following: Height as of 05/09/24: 5' 3 . Weight as of this encounter: 232 lb 12.8 oz. BP: Patient's last menstrual period was 10/02/2024. Assessment/Plan Diagnoses and all orders for this visit: Missed menses - Type and screen; Future - ABO/Rh; Future - CBC and differential - Hemoglobin A1c - RPR - Rubella antibody, IgG - Hepatitis B surface antigen - Hepatitis C antibody - HIV-1 and HIV-2 antibodies - Urine culture - POCT , urine manually resulted - POCT urinalysis dipstick manually resulted , unspecified gestational age ([facility]) - Type and screen; Future - ABO/Rh; Future - CBC and differential - Hemoglobin A1c - RPR - Rubella antibody, IgG - Hepatitis B surface antigen - Hepatitis C antibody - HIV-1 and HIV-2 antibodies - Rapid drug screen, urine; Future Encounter for supervision of normal first in first trimester ([facility]) - Rapid drug screen, urine; Future Nurse Note: OB Intake: Patient presents today for first OB visit. Patients history has been reviewed in great detail including any potential risks. Patient signed consent forms and patient desires testing in both trimesters. Patient currently has no complaints and has been advised to drink 6-8 glasses of water a day, eatno raw or undercooked meat, and stay away from [facility]. Patient has also been advised to not change litter boxes and eat 6 small meals a day. Patient has been consulted regarding the do's and don'ts ofpregnancy. Patient was given labs and all questions and concerns were answered. Follow Up: Patient is to return in 4 weeks for routine OB appointment. Follow Up: Patient is to have labs drawn at directed and return to office for initial OB appointment with provider. Patient may call office as needed with any concerns or questions. Nurse Visit Completed by: Tabitha Rice LPN documented in this encounter Plan of Treatment Upcoming Encounters Date Type Department Care Team (Late st Contact Info) Description 01/02/2025 11:10 AM EDT Routine [facility] [address] [place] [id number] Gerardo Meredith DO [address] [place] [address] Scheduled Orders Name Type Priority Associated Diagnoses Orde r Schedule Type and screen Lab Routine Missed menses , unspecified gestational age ([facility]) Expected: 12/07/2024 (Approximate), Expires: 12/07/2025 ABO/Rh Lab Routine Missed menses , unspecified gestational age ([facility]) Expected: 12/07/2024 (Approximate), Expires: 12/07/2025 CBC and differential Lab Routine Missed menses , unspecified gestational age ([facility]) Ordered: 12/07/2024 Hemoglobin A1c Lab Routine Missed menses , unspecified gestational age ([facility]) Ordered: 12/07/2024 RPR Lab Routine Missed menses , unspecified gestational age ([facility]) Ordered: 12/07/2024 Rubella antibody, IgG Lab Routine Missed menses , unspecified gestational age ([facility]) Ordered: 12/07/2024 Hepatitis B surface antigen Lab Routine Missed menses , unspecified gestational age ([facility]) Ordered: 12/07/2024 Hepatitis C antibody Lab Routine Missed menses , unspecified gestational age ([facility]) Ordered: 12/07/2024 HIV-1 and HIV-2 antibodies Lab Routine Missed menses , unspecified gestational age ([facility]) Ordered: 12/07/2024 Urine culture Microbiology Routine Missed menses Ordered: 12/07/2024 Rapid drug screen, urine Lab Routine , unspecified gestational age ([facility]) Encounter for supervision of normal first in first trimester ([facility]) Expected: 12/07/2024 (Approximate), Expires: 12/07/2025 documented as of this encounter Procedures Procedure Name Priority Date/Time Associated Diagnosis Comments POCT , URINE Routine 12/07/2024 3:26 PM EDT Missed menses POCT URINALYSIS DIPSTICK Routine 12/07/2024 3:26 PM EDT Missed menses documented in this encounter Results * POCT urinalysis dipstick manually resulted (12/07/2024 3:26 PM EDT) Color, UA Yellow Clarity, UA Clear Glucose, UA Negative Negative - 2000(110) ++++ mg/dL Bilirubin, UA Negative Negative - 4(70) +++ mg/dL Ketones, UA Negative Negative - 160(16) ++++ mg/dL Spec Grav, UA 1.025 1 - 1.03 Blood, UA Negative Negative - 50 Joshua/mcL pH, UA 6.5 5 - 9 Protein, UA Negative Negative - 2000(20) ++++ mg/dL Urobilinogen, UA 1.0 0.2 - 12 mg/dL Leukocytes, UA Negative Negative - 500+++ Diego/mcL Nitrite, UA Negative Negative - Positive Urine 12/07/2024 3:26 PM EDT Gerardo Viri DO POINT OF CARE TEST ENTER/EDIT OR DERABLES Final Result * (ABNORMAL) POCT , urine manually resulted (12/07/2024 3:26 PM EDT) Preg Test, Ur Positive Negative Urine 12/07/2024 3:26 PM EDT Gerardo Viri DO POINT OF CARE TEST ENTER/EDIT OR DERABLES Final Result documented in this encounter Visit Diagnoses Diagnosis Missed menses , unspecified gestational age ([facility]) Encounter for supervision of normal first in first trimester ([facility]) documented in this encounter Care Teams Equal Opportunity Counselor Relationship Specialty Start Date End Date Hector Dai MD [address] [place] [address] PCP - General Family Medicine 04/07/24 documented as of this encounter
[2024-12-18 11:28] VITALS: BP 138/80; PULSE 94; TEMP 36.8; O2SAT 99; BMI 39.9
--- OUTSIDE RECORDS SUMMARY | 2024-12-18 11:40 | XMS_ITS | Encounter Summary ---
Author Organization [facility] Address [id number] [address] [place] [address] Care Team Providers Care Try Out Person Name Role Phone Hector Dai MD Primary Care Provider [phone] Encounter Details Date Type Department Care Team (Late st Contact Info) Description [facility] [address] [place] [address] Angel, Barbara, NURSE RECEPTIONIST Social History Tobacco Use Types Packs/Day Years [...] documented as of this encounter Care Teams Try Out Person Relationship Specialty Start Date End Date Hector Dai MD [address] [place] [address] PCP - General Family Medicine 10/12/24 documented as of this encounter
--- OUTSIDE RECORDS SUMMARY | 2024-12-18 11:40 | XMS_ITS | Encounter Summary ---
Author Organization [facility] Address [address] [place] [address] Care Team Providers Care Knobber Name Role Phone Hector Dai MD Primary Care Provider [phone] Encounter Details Date Type Department Care Team (Late st Contact Info) Description 11/01/2023 Clinisync Result Encounter [facility] External Department Unsolicited Adolfo Meredith DO [address] [place] [address] Social History Tobacco Use Types Packs/Day Years [...] AM EDT Routine [facility] OBALICE [address] [place] [phone] Adolfo Meredith DO [address] [place] [address] documented as of this encounter Procedures Procedure Name Priority Date/Time Associated Diagnosis Comments US PELVIS W/ TRANSVAGINAL 11/01/2023 6:49 AM EDT documented in this encounter Results * US PELVIS W/ TRANSVAGINAL (11/01/2023 6:49 AM EDT) Anatomical Region Laterality Modality Other 11/01/2023 6:49 AM EDT Narrative 11/01/2023 6:[place] [address] Ultrasound Report Signed Patient: SHEYLA LEA MR#: [id number] : 2005 Acct:[id number] Age/Sex: 18 / F ADM Date: 10/29/23 Loc: US Attending Dr: Adolfo Meredith D.O. Ordering Physician: Adolfo Meredith D.O. Date of Service: 10/29/23 Procedure(s): US pelvis w/ transvaginal Accession Number(s): [id number] cc: Adolfo Meredith D.O.; MAXWELL [place] [id number] Patient Name: SHEYLA LEA MRN: [id number] date: 2005 Sex: F Assigned Patient Location: Current Patient Location: Accession/Order Number: [id number] Exam Date: 10/29/2023 09:03 Report Date: 11/01/2023 [...] Posadas M.D. Signed By: 11/01/2352 DD/ TD/TT: Fire Management Specialist: Procedure Note Radiology, Radiologist, MD - 11/01/2023 [place] [address] Ultrasound Report Signed Patient: SHEYLA LEA IMMR#: [id number] : 2005Acct:[id number] Age/Sex: 18 / FADM Date: 10/29/23 Loc: US Attending Dr: Adolfo Meredith D.O. Ordering Physician: Adolfo Meredith D.O. Date of Service: 10/29/23 Procedure(s): US pelvis w/ transvaginal Accession Number(s): [id number] cc: Adolfo Meredith D.O.; MAXWELL [place] [id number] Patient Name: SHEYLA LEA MRN: [id number] date: 2005 Sex: F Assigned Patient Location: US Current Patient Location: Accession/Order Number: [id number] Exam Date: 10/29/2023 09:03 Report Date: 11/01/2023 [...] M.D. Signed By:11/01/23 0652 DD/ 0649 TD/TT: Fire Management Specialist: [facility] Final Result documented in this encounter Visit Diagnoses Not on filedocumented in this encounter Care Teams Knobber Relationship Specialty Start Date End Date Hector Dai MD [address] [place] [address] PCP - General Family Medicine 04/07/24 documented as of this encounter
--- OUTSIDE RECORDS SUMMARY | 2024-12-18 11:40 | XMS_ITS | Encounter Summary ---
Author Organization [facility] Address [address] [place] [address] Care Team Providers Care High School Mathematics Teacher Name Role Phone Hector Dai MD Primary Care Provider [phone] Encounter Details Date Type Department Care Team (Late st Contact Info) Description 01/03/2024 Abstract EUGENIA MAYA [facility] [place] [phone] Gerardo Meredith DO [address] [place], [place] [address] Social History Tobacco Use Types Packs/Day Years [...] 01/02/2025 11:10 AM EDT Routine EUGENIA MAYA [facility] [place] [phone] Gerardo Meredith, DO [address] [place], [place] [phone] documented as of this encounter Visit Diagnoses Not on filedocumented in this encounter Care Teams High [employer] Mathematics Teacher Relationship Specialty Start Date End Date Hector Dai MD [address] [place] [address] PCP - General Family Medicine 04/07/24 documented as of this encounter
--- OUTSIDE RECORDS SUMMARY | 2024-12-18 11:40 | XMS_ITS | Encounter Summary ---
Author Organization [facility] Address [address] [place] [address] Care Team Providers Care Grocery Stock Clerk Name Role Phone Hector Dai MD Primary Care Provider [phone] Encounter Details Date Type Department Care Team (Late st Contact Info) Description 12/16/2024 Clinisync Result Encounter [facility] External Department Unsolicited Gerardo Meredith, DO [address] [place] [address] Social History Tobacco Use Types Packs/Day Years [...] AM EDT Routine [facility] OBGYN [address] [place] [phone] Gerardo Meredith DO [address] [place] [address] documented as of this encounter Goals Goal Patient Goal Type Associated Problems Recent Progress Patient-Stated? Author Reminders Care Plan OB Reminders No Open Scheduling, Background documented as of this encounter Procedures Procedure Name Priority Date/Time Associated Diagnosis Comments BOX TEST Routine 12/16/2024 10:46 AM EDT HBSAG SCREEN Routine 12/16/2024 10:46 AM EDT RAPID PLASMA REAGIN, QUANT Routine 12/16/2024 10:46 AM EDT HIV AB/P24 AG WITH REFLEX Routine 12/16/2024 10:46 AM EDT HCV ANTIBODY RFX TO QUANT PCR Routine 12/16/2024 10:46 AM EDT MLR HEMOGLOBIN A1C Routine 12/16/2024 10 :46 AM EDT ALL TYPE AND SCREEN Routine 12/16/2024 1 0:46 AM EDT ALL THYROID STIM HORMONE Routine 12/16/2024 10:46 AM EDT ALL RUBELLA IGG AB Routine 12/16/2024 10 :46 AM EDT ALL CBC WITH AUTO DIFF Routine 12/16/2024 10:46 AM EDT [facility] DRUG SCREEN RAPID (URINE) Routine 12/16/2024 10:35 AM EDT documented in this encounter Results * HBSAG SCREEN (12/16/2024 10:46 AM EDT) HBSAG SCREEN Negative Negative [facility] Comment: Performed at: - Lab[address] [id number] Film Color Tester: Sukhjinder Wong PhD, Phone: [phone] 12/16/2024 10:4 6 AM EDT 12/16/2024 10:51 AM EDT Narrative [facility] - 12/17/2024 11:09 AM EDT us Gerardo Viri DO LAB BLOOD ORDERABLES Final Resul t Performing Organization Address [facility]/ZIP Co de Phone Number [facility] * RAPID PLASMA REAGIN, QUANT (12/16/2024 10:46 AM EDT) RAPID PLASMA REAGIN, QUANT Non Reactive NonRea<1: 1 titer [facility] Comment: Please Note: This test does not meet current guidelines for screening and diagnosis of syphilis. This test is intended for following treatment response in patients being treated for syphilis infection. To screen for syphilis infection, a reflex cascade that includes both RPR and a treponema-specific assay should be utilized, such as Treponema pallidum (Syphilis) Screening [place] (944679) or Rapid Plasma Reagin (RPR) Test With Reflex to Quantitative RPR and Confirmatory Treponema pallidum Antibodies (927840). Performed at: [employer] [facility] [id number] Film Color Tester: Sukhjinder Wong PhD, Phone: [phone] 12/16/2024 10:4 6 AM EDT 12/16/2024 10:51 AM EDT Narrative [facility] - 12/17/2024 11:09 AM EDT us Gerardo Viri DO LAB BLOOD ORDERABLES Final Resul t Performing Organization Address [facility] Co de Phone Number [facility] * HIV AB/P24 AG WITH REFLEX (12/16/2024 10:46 AM EDT) HIV AB/P24 AG SCREEN Non Reactive Non Reactive [facility] Comment: HIV-1/HIV-2 antibodies and HIV-1 p24 antigen were NOT detected. There is no laboratory evidence of HIV infection. HIV Negative Performed at: [employer] [id number] Film Color Tester: Sukhjinder Wong PhD, Phone: [phone] 12/16/2024 10:4 6 AM EDT 12/16/2024 10:51 AM EDT Narrative [facility] [place] [facility] 12/17/2024 9:08 AM EDT [facility] LAB BLOOD ORDERABLES Final Resul t Performing Organization Address [facility] Co de Phone Number [facility] * HCV ANTIBODY RFX TO QUANT PCR (12/16/2024 10:46 AM EDT) Pathologist [facility] HCV AB Non Reactive Non Reactive [facility] INTERPRETATION: Comment . [facility] Comment: Not infected with HCV unless early or acute infection is suspected (which may be delayed in an immunocompromised individual), or other evidence exists to indicate HCV infection. 12/16/2024 10:4 6 AM EDT 12/16/2024 10:51 AM EDT Narrative [facility] - 12/17/2024 8:08 AM EDT [facility] LAB BLOOD ORDERABLES Final Resul t Performing Organization Address [facility] de Phone Number [facility] * ALL RUBELLA IGG AB (12/16/2024 10:46 AM EDT) Pathologist [facility] RUBELLA ANTIBODIES, IGG 4.26 Immune >0.99 index TB Comment: Non-immune <0.90 Equivocal 0.90 - 0.99 Immune >0.99 Performed at: [address] [id number] Film Color Tester: Sukhjinder Wong PhD, Phone: [phone] 12/16/2024 10:4 6 AM EDT 12/16/2024 10:51 AM EDT Narrative [facility] - 12/17/2024 8:08 AM EDT [facility] Final Result Performing Organization Address [facility] de Phone Number [facility] * ALL TYPE AND SCREEN (12/16/2024 10:46 AM EDT) Pathologist [facility] BLOOD TYPE A Positive [facility] ANTIBODY SCREEN NEGATIVE [facility] 12/16/2024 10:4 6 AM EDT 12/16/2024 10:51 AM EDT Narrative [facility] - 12/16/2024 12:20 PM EDT [facility] , Gerardo Viri DO [facility] Final Result Performing Organization Address City/[facility]/ZIP Co de Phone Number [facility] * (ABNORMAL) ALL THYROID STIM HORMONE (12/16/2024 10:46 AM EDT) THYROID STIMULATING HORMONE 50.067(H) 0.358 - 3.740 uIU/mL [facility] 12/16/2024 10:4 6 AM EDT 12/16/2024 10:51 AM EDT Narrative [facility] - 12/16/2024 11:38 AM EDT Gerardo Burto DO [facility] Final Result Performing Organization Address [facility]/ZIP Co de Phone Number [facility] * MLR HEMOGLOBIN A1C (12/16/2024 10:46 AM EDT) GLYCOHEMOGLOBIN A1C 4.9 4.5 - 6.2 % TB Comment: ADA RECOMMENDED LIMIT 4.0 - 6.0 ADA THERAPEUTIC TARGET < 7.0 ACTION SUGGESTED > 7.0 ESTIMATED AVERAGE GLUCOSE 94 mg/dL [facility] 12/16/2024 10:4 6 AM EDT 12/16/2024 10:51 AM EDT Narrative [facility] - 12/16/2024 11:19 AM EDT Gerardoarya Burto DO [facility] Final Result [facility] * ALL CBC WITH AUTO DIFF (12/16/2024 10:46 AM EDT) [facility] WBC 6.3 4.0 - 11.0 10 3/uL [facility] TB[facility] RBC 4.68 4.20 - 5.40 10 6/uL [facility] HGB 13.4 12.0 - 16.0 g/dL [facility] TBH HCT 39.7 36.0 - 48.0 % [facility] MCV 84.8 81.0 - 99.0 fL [facility]H TBH MCH 28.6 26.7 - 34.0 pg TBH TBH MCHC 33.8 29.9 - 35.2 g/dL [facility] RDW 13.3 11.0 - 15.0 % [facility] TBH PLT 238 150 - 450 10 3/uL [facility] TBH MPV 11.2 9.5 - 13.5 fL [facility] NEUTROPHILS PERCENT AUTO 69.1 43.0 - 75.0 % [facility] LYMPHOCYTES PERCENT AUTO 23.6 20.5 - 60.0 % [facility] MONOCYTES PERCENT AUTO 4.9 1.7 - 12.0 % [facility]H EO % 1.4 0.9 - 7.0 % [facility] BASOPHILS PERCENT AUTO 0.8 0.2 - 2.0 % [facility] IMMATURE GRANULOCYTES PCT AUTO 0.2 0.0 - 0.5 % [facility] NEUTROPHILS ABSOLUTE AUTO 4.4 1.4 - 6.5 10 3/uL [facility] LYMPHOCYTES ABSOLUTE AUTO 1.5 1.2 - 3.8 10 3/uL [facility] MONOCYTES ABSOLUTE AUTO 0.3 0.3 - 0.8 10 3/uL [facility] TBH EO # 0.1 0.0 - 0.7 10 3/uL [facility] BASOPHILS ABSOLUTE AUTO 0.1 0.0 - 0.1 10 3/uL [facility] IMMATURE GRANULOCYTES ABS AUTO 0.01 0.00 - 0.03 10 3/uL [facility] 12/16/2024 10:4 6 AM EDT 12/16/2024 10:51 AM EDT Narrative [facility] - 12/16/2024 11:05 AM EDT us Gerardo Viri DO [facility] Final Result [facility] * BOX TEST (12/16/2024 10:46 AM EDT) BOX TEST SENT OUT [facility] 01/03/2025 TB 12/16/2024 10:4 6 AM EDT 12/16/2024 10:51 AM EDT Narrative [facility] - 12/16/2024 10:53 AM EDT us Gerardo Viri DO LAB BLOOD ORDERABLES Final Resul t Performing Organization Address [facility] Co de Phone Number [facility] TB * [facility] DRUG SCREEN RAPID (URINE) (12/16/2024 10:35 AM EDT) CANNABINOID SCREEN URINE NEGATIVE NEGATIVE [facility] PHENCYCLIDINE SCREEN URINE NEGATIVE NEGATIVE [facility] COCAINE SCREEN URINE NEGATIVE NEGATIVE TBH METHAMPHETAMINES SCREEN URINE NEGATIVE NEGATIVE TBH OPIATE SCREEN URINE NEGATIVE NEGATIVE TBH AMPHETAMINE SCREEN URINE NEGATIVE NEGATIVE TBH BENZODIAZEPINES SCREEN URINE NEGATIVE NEGATIVE TBH TRICYCLIC ANTIDEPRESSANT URINE NEGATIVE NEGATIVE TBH METHADONE SCREEN URINE NEGATIVE NEGATIVE TBH BARBITURATES SCREEN URINE NEGATIVE NEGATIVE TBH OXYCODONE SCREEN URINE NEGATIVE NEGATIVE TBH BUPRENORPHINE SCREEN URINE NEGATIVE NEGATIVE [facility] Comment: DRUG CLASS TEST SYSTEM CUT-OFF CONCENTRATIONS ARE FOLLOWS: AMP (Amphetamine): 500 ng/mL BAR (Barbiturates): 200 ng/mL BZO (Benzodiazepines): 150 ng/mL BUP (Buprenorphine): 10 ng/mL LILIA (Cocaine): 150 ng/mL mAMP (Methamphetamine): 500 ng/mL MTD (Methadone): 200 ng/mL OPI (Opiates): 100 ng/mL OXY (Oxycodone): 100 ng/mL PCP (Phencyclidine): 25 ng/mL THC (Cannabinoids): 50 ng/mL TCA (Trycyclic Antidepressants): 300 ng/mL 12/16/2024 10:3 5 AM EDT 12/16/2024 10:51 AM EDT Narrative [facility] - 12/16/2024 11:11 AM EDT us Gerardo Viri DO [facility] Final Result Performing Organization Address City/[facility]/ZIP Co de Phone Number [facility] documented in this encounter Visit Diagnoses Not on filedocumented in this encounter Additional Health Concerns Active Problems Noted Date Diagnosed Date OB Reminders 12/11/2024 documented as of this encounter Care Teams Grocery Stock Clerk Relationship Specialty Start Date End Date Hector Dai MD [address] [place] [address] PCP - General Family Medicine 04/07/24 documented as of this encounter
--- OUTSIDE RECORDS SUMMARY | 2024-12-18 11:40 | XMS_ITS | Encounter Summary ---
Author Organization [facility] [facility] [employer] Address [id number] [address] [place] [address] Care Team Providers Care Senior Data Architect Name Role Phone Hector Dai MD Primary Care Provider [phone] Reason for Visit * Reason Comments Med Refill Encounter Details Date Type Department Care Team (Late st Contact Info) Description 12/13/2023 Refill [facility] - Family Medicine [address] [facility] [address] [address] Anita Sherwood, REGISTERED VETERINARY TECHNICIAN-BERRY PICKER [address] [place] [address] Social History Tobacco Use Types Packs/Day Years [...] as of this encounter Care Teams Senior Data Architect Relationship Specialty Start Date End Date Hector Dai MD [address] [place] [address] PCP - General Family Medicine 10/12/24 documented as of this encounter
--- OUTSIDE RECORDS SUMMARY | 2024-12-18 11:40 | XMS_ITS | Encounter Summary ---
Author Organization [facility] Address [address] [place] [address] Care Team Providers Care Programmer Developer Name Role Phone ShireenShayla morgantrish Haddad DO Primary Care Provider [phone] Anita Sherwood NP Primary Care Provider [phone] Source Comments In the event this information is protected by the Federal Confidentiality of Alcohol and Drug AbusePatient Records regulations: The Federal rules restrict any use of the information to criminally investigate or prosecute any alcohol or drug abuse patient.[facility] Encounter Details Date Type Department Care Team (Late st Contact Info) Description 08/12/2023 Patient [facility] [place] [address] Martina Bettencourt RPh At your next appointment, choose [facility] Social History Tobacco Use Types Packs/Day [...] lower risk 9 01/07/2023 Data from: https://www.neighborhoodatlas.medicine.[facility].edu/. Last address used for calculation [address] [...] on filedocumented in this encounter Care Teams Programmer Developer Relationship Specialty Start Date End Date Geeta Goff DO [address] [place] [address] PCP - General Family Medicine 07/09/23 08/16/23 Anita Sherwood NP [address] [place] [address] PCP - General Family Medicine 08/17/23 documented as of this encounter
--- OUTSIDE RECORDS SUMMARY | 2024-12-18 11:40 | XMS_ITS | Clinical Summary ---
Author Organization [facility] Address [address] [place] [address] Care Team Providers Care Wire Bound Box Machine Operator Name Role Phone Hector Dai MD Primary Care Provider [phone] Allergies No known active allergies Medications pantoprazole [...] Encounters Date Type Department Care Team Description 12/16/2024 Clinisync Result Encounter [facility] External Department Unsolicited Gerardo Meredith DO 12/14/2024 Refill [facility] [place] [facility] [address] [place] [address] Loretta Winkler MD Postoperative hypothyroidism 12/07/2024 2:30 PM EDT [place] [address] [place]: 7w5d 12/06/2024 Travel 11/30/2024 2:30 PM EDT Ancillary Procedure [facility] [place] [phone] with abdominal cramping of lower quadrant, antepartum ([facility]) 11/24/2024 Telephone [facility] [address] [place] [phone] Donaldo Karolyn, CHRISTIE 11/24/2024 Travel 11/22/2024 1:30 PM EDT Office Visit [facility] [address] [place] [phone] Nichelle Sanchez PA Nausea (Primary Dx); Cramping affecting , antepartum ([facility]); Missed menses; with abdominal cramping of lower quadrant, antepartum ([facility]) 11/22/2024 Bamboo flowsheet [facility] [address] [place] [address] Nichelle Sanchez PA 11/18/2024 Clinisync Result Encounter [facility] External Department Unsolicited Gerardo Meredith, 11/16/2024 Travel 11/15/2024 Telephone [facility] [address] [place] [phone] Gerardo Meredith, 11/14/2024 Telephone [facility] [address] [place] [address] Gerardo Meredith, 11/13/2024 Clinisync Result Encounter [facility] External Department Unsolicited Gearrdo Meredith, 11/13/2024 Telephone [facility] [address] [place] [address] Gerardo Meredith DO from [...] AM EDT Routine [facility] [address] [address] Gerardo Meredith DO [address] [place] [address] Health Maintenance Due Date Last Done Comments Influenza Vaccine (#1) 2025 4, 02/22/2023, 03/14/2020, Additional history exists Goals Goal Patient Goal Type Associated Problems Recent Progress Patient-Stated? Author Reminders Care Plan OB Reminders No Open Scheduling, Background Procedures Procedure Name Priority Date/Time Associated Diagnosis Comments HBSAG SCREEN Routine 12/16/2024 10:46 AM EDT RAPID PLASMA REAGIN, QUANT Routine 12/16/2024 10:46 AM EDT HIV AB/P24 AG WITH REFLEX Routine 12/16/2024 10:46 AM EDT HCV ANTIBODY RFX TO QUANT PCR Routine 12/16/2024 10:46 AM EDT ALL RUBELLA IGG AB Routine 12/16/2024 10 :46 AM EDT ALL TYPE AND SCREEN Routine 12/16/2024 1 0:46 AM EDT ALL THYROID STIM HORMONE Routine 12/16/2024 10:46 AM EDT MLR HEMOGLOBIN A1C Routine 12/16/2024 10 :46 AM EDT ALL CBC WITH AUTO DIFF Routine 12/16/2024 10:46 AM EDT BOX TEST Routine 12/16/2024 10:46 AM EDT [facility] DRUG SCREEN RAPID (URINE) Routine 12/16/2024 10:35 AM EDT POCT URINALYSIS DIPSTICK Routine 12/07/2024 3:26 PM [...] EDT from Last 3 Months Results * BOX TEST (12/16/2024 10:46 AM EDT) BOX TEST SENT OUT [facility] [address] [facility] [address] 01/03/2025 [facility] 12/16/2024 10:4 6 AM EDT 12/16/2024 10:51 AM EDT Narrative CLINISYFL - 12/16/2024 10:53 AM EDT Gerardo Viri DO LAB BLOOD ORDERABLES Final Resul t Performing Organization Address City/[facility]/ZIP Co de Phone Number [facility] * HBSAG SCREEN (12/16/2024 10:46 AM EDT) Pathologist [facility] HBSAG SCREEN Negative Negative [facility] Comment: Performed at: [address] [id number] [employer]: Sukhjinder Wong PhD, Phone: [phone] 12/16/2024 10:4 6 AM EDT 12/16/2024 10:51 AM EDT Narrative CLINISYNC - 12/17/2024 11:09 AM EDT us Gerardo Viri DO LAB BLOOD ORDERABLES Final Resul t [facility] * RAPID PLASMA REAGIN, QUANT (12/16/2024 10:46 AM EDT) Pathologist [facility] RAPID PLASMA REAGIN, QUANT Non Reactive NonRea<1: 1 titer [facility] Comment: Please Note: This test does not meet current guidelines for screening and diagnosis of syphilis. This test is intended for following treatment response in patients being treated for syphilis infection. To screen for syphilis infection, a reflex cascade that includes both RPR and a treponema-specific assay should be utilized, such as Treponema pallidum (Syphilis) Screening Floyd (009337) or Rapid Plasma Reagin (RPR) Test With Reflex to Quantitative RPR and Confirmatory Treponema pallidum Antibodies (212704). Performed at: [address] [id number] [employer]: Sukhijnder Wong PhD, Phone: [phone] 12/16/2024 10:4 6 AM EDT 12/16/2024 10:51 AM EDT Narrative CLINISYNC - 12/17/2024 11:09 AM EDT [facility] LAB BLOOD ORDERABLES Final Resul t Performing Organization Address [facility] Co de Phone Number [facility] * HIV AB/P24 AG WITH REFLEX (12/16/2024 10:46 AM EDT) Pathologist [facility] HIV AB/P24 AG SCREEN Non Reactive Non Reactive [facility] Comment: HIV-1/HIV-2 antibodies and HIV-1 p24 antigen were NOT detected. There is no laboratory evidence of HIV infection. HIV Negative Performed at: [address] [id number] [employer]: Sukhjinder Wong PhD, Phone: [phone] 12/16/2024 10:4 6 AM EDT 12/16/2024 10:51 AM EDT Narrative CLINISYNC - 12/17/2024 9:08 AM EDT onkeao DO LAB BLOOD ORDERABLES Final Resul t Performing Organization Address [facility] Co de Phone Number [facility] * HCV ANTIBODY RFX TO QUANT PCR (12/16/2024 10:46 AM EDT) HCV AB Non Reactive Non Reactive TB INTERPRETATION: Comment . TB Comment: Not infected with HCV unless early or acute infection is suspected (which may be delayed in an immunocompromised individual), or other evidence exists to indicate HCV infection. 12/16/2024 10:4 6 AM EDT 12/16/2024 10:51 AM EDT Narrative CLINISYNC - 12/17/2024 8:08 AM EDT Gerardo Viri DO LAB BLOOD ORDERABLES Final Resul t [facility] * MLR HEMOGLOBIN A1C (12/16/2024 10:46 AM EDT) GLYCOHEMOGLOBIN A1C 4.9 4.5 - 6.2 % [facility] Comment: ADA RECOMMENDED LIMIT 4.0 - 6.0 ADA THERAPEUTIC TARGET < 7.0 ACTION SUGGESTED > 7.0 ESTIMATED AVERAGE GLUCOSE 94 mg/dL TB 12/16/2024 10:4 6 AM EDT 12/16/2024 10:51 AM EDT Narrative CLINISYNC - 12/16/2024 11:19 AM EDT [employer] DO CLINISYNC Final Result Performing Organization Address [facility] Co de Phone Number [facility] * ALL TYPE AND SCREEN (12/16/2024 10:46 AM EDT) Pathologist [facility] BLOOD TYPE A Positive [facility] ANTIBODY SCREEN NEGATIVE [facility] 12/16/2024 10:4 6 AM EDT 12/16/2024 10:51 AM EDT Narrative CLINISYNC - 12/16/2024 12:20 PM EDT [facility] , onkeao DO CLINISYNC Final Result Performing Organization Address City/[facility] Co de Phone Number [facility] * (ABNORMAL) ALL THYROID STIM HORMONE (12/16/2024 10:46 AM EDT) Only the most recent of2 resultswithin the time period is included. THYROID STIMULATING HORMONE 50.067(H) 0.358 - 3.740 uIU/mL TB 12/16/2024 10:4 6 AM EDT 12/16/2024 10:51 AM EDT Narrative CLINISYNC - 12/16/2024 11:38 AM EDT Gerardo Viri DO CLINISYNC Final Result Performing Organization Address City/[facility]/ZIP Co de Phone Number [facility] * ALL RUBELLA IGG AB (12/16/2024 10:46 AM EDT) [facility] RUBELLA ANTIBODIES, IGG 4.26 Immune >0.99 index [facility] Comment: Non-immune <0.90 Equivocal 0.90 - 0.99 Immune >0.99 Performed at: [facility] [address] [id number] [employer]: Sukhjinder Wong PhD, Phone: [phone] 12/16/2024 10:4 6 AM EDT 12/16/2024 10:51 AM EDT Narrative CLINISYNC - 12/17/2024 8:08 AM EDT Gerardo Viri DO CLINISYNC Final Result Performing Organization Address [facility] Co de Phone Number [facility] * ALL CBC WITH AUTO DIFF (12/16/2024 10:46 AM EDT) [facility] TB WBC 6.3 4.0 - 11.0 10 3/uL TBH TB RBC 4.68 4.20 - 5.40 10 6/uL TBH TBH HGB 13.4 12.0 - 16.0 g/dL TB TB HCT 39.7 36.0 - 48.0 % TBH TBH MCV 84.8 81.0 - 99.0 fL TBH TBH MCH 28.6 26.7 - 34.0 pg TBH TBH MCHC 33.8 29.9 - 35.2 g/dL TB TB RDW 13.3 11.0 - 15.0 % TBH [...] Narrative CLINISYNC - 12/16/2024 11:05 AM EDT Gerardo Meredith DO CLINISYNC Final Result [facility] * TB DRUG SCREEN RAPID (URINE) (12/16/2024 10:35 AM EDT) Pathologist [facility] CANNABINOID SCREEN URINE NEGATIVE NEGATIVE TBH PHENCYCLIDINE [...] us Gerardo Viri DO CLINISYNC Final Result [facility] * (ABNORMAL) POCT , urine manually resulted (12/07/2024 3:26 PM EDT) Only the most recent of2 resultswithin the time period is included. Preg Test, Ur Positive Negative Urine 12/07/2024 3:26 PM EDT us Gerardo Viri DO POINT OF CARE TEST ENTER/EDIT OR DERABLES Final Result * POCT urinalysis dipstick manually resulted (12/07/2024 3:26 PM EDT) Only the most recent of2 resultswithin the time period is included. Color, UA Yellow Clarity, UA Clear Glucose, UA Negative Negative - 1999(110) ++++ mg/dL Bilirubin, UA Negative Negative - [...] BY: Nathen Brown MD us Marcia Naranjo INSPECTOR AND ADJUSTER [employer] IM[facility] OB US PROCEDURES Final Re sult [...] Narrative CLINISYNC - 11/18/2024 11:15 AM EDT Gerardo Meredith DO CLINISYNC Final Result [facility] from Last 3 Months Additional Health Concerns Active Problems Noted Date Diagnosed Date OB Reminders 12/11/2024 Insurance BS [place]ID [place] Care Teams Wire Bound Box Machine Operator Relationship Specialty Start Date End Date Hector Dai MD [address] [place] [phone] PCP - General Family Medicine 04/07/24
--- OUTSIDE RECORDS SUMMARY | 2024-12-18 11:40 | XMS_ITS | Encounter Summary ---
Author Organization [facility] [employer] Address [id number] [place] [address] Care Team Providers Care Frame Runner Name Role Phone Hector Dai MD Primary Care Provider [phone] Encounter Details Date Type Department Care Team (Late st Contact Info) Description 11/02/2023 Orders Only [facility] Internal Medicine - Family Medicine [address] [place] [address] External, Scanning Provider Social History [...] documented as of this encounter Care Teams Frame Runner Relationship Specialty Start Date End Date Hector Dai MD [address] [place] [address] PCP - General Family Medicine 10/12/24 documented as of this encounter
--- OUTSIDE RECORDS SUMMARY | 2024-12-18 11:40 | XMS_ITS | Patient Health Record ---
Author Organization [facility] in [place] Address [address] [place] [address] Care Team Providers Care Medical Auditor Name Role Phone Blair Dai Primary Care Provider Allergies No Known Allergies Results Component Value Reference Range Notes PREG QUANT HCG Reviewed date:11/18/2024 07:53:13 PM Interpretation: Performing Lab: Notes/Report: [facility] Quantitative 4630 5-50 0.2-1 WEEK 50-500 1-2 WEEKS 100-5,000 2-3 WEEKS 500-10,000 3-4 WEEKS 1,000-50,000 4-5 WEEKS 10,000-100,000 5-6 WEEKS 15,000-200,000 6-8 WEEKS 10,000-100,000 2-3 MONTHS Performing Lab: see note ML - [facility] GLYCOHEMOGLOBIN A1C Reviewed date:07/04/2024 08:39:44 PM Interpretation: Performing Lab: Notes/Report: [facility] , Glycohemoglobin A1C 5.5 4.5-6.2 % ADA RECOMMENDED LIMIT 4.0 - 6.0 ADA THERAPEUTIC TARGET < 7.0 ACTION SUGGESTED > 7.0 Estimated Average Glucose 111 Performing Lab: see note - [facility] LB PREG QUANT HCG Reviewed date:11/13/2024 09:12:54 PM Interpretation: Performing Lab: Notes/Report: [facility] HCG Quantitative 481 5-50 0.2-1 WEEK 50-500 1-2 WEEKS 100-5,000 2-3 WEEKS 500-10,000 3-4 WEEKS 1,000-50,000 4-5 WEEKS 10,000-100,000 5-6 WEEKS 15,000-200,000 6-8 WEEKS 10,000-100,000 2-3 MONTHS Performing Lab: see note ML - [facility] LB TSH Reviewed date:11/13/2024 09:12:54 PM Interpretation: Performing Lab: Notes/Report: [facility] , Thyroid Stimulating Hormone 12.103 0.358-3.740 uIU/mL Performing Lab: see note ML - [facility] LB CBC AUTO DIFF Reviewed date:11/15/2024 07:10:23 PM Interpretation: Performing Lab: Notes/Report: [facility] , White Blood Count 5.4 4.0-11.0 10 [...] Performing Lab: see note ML - [facility] LB PREG QUANT HCG Reviewed date:11/15/2024 07:10:23 PM Interpretation: Performing Lab: Notes/Report: [facility] , HCG Quantitative 990 5-50 0.2-1 WEEK 50-500 1-2 WEEKS 100-5,000 2-3 WEEKS 500-10,000 3-4 WEEKS 1,000-50,000 4-5 WEEKS 10,000-100,000 5-6 WEEKS 15,000-200,000 6-8 WEEKS 10,000-100,000 2-3 MONTHS Performing Lab: see note ML - [facility] LB PROF 14(COMP METB) Reviewed date:11/15/2024 07:10:23 PM Interpretation: Performing Lab: Notes/Report: [facility] , Sodium 138 136-145 mmol/L Potassium 3.7 [...] 1.2 Performing Lab: see note ML - [facility] LB UA (CLEAN or CATCH) RECORDING STUDIO SET UP WORKER or M ICRO IF IND. Reviewed date:11/15/2024 07:10:23 PM Interpretation: Performing Lab: Notes/Report: [facility] , Color Urine LT. YELLOW YELLOW Clarity Urine CLEAR CLEAR Specific [place] Urine <=1.005 1.005-1.025 pH Urine 6.0 5.0-9.0 Protein Urine NEGATIVE NEG/TRACE mg/dL Glucose Urine UA NEGATIVE NEGATIVE mg/dL Bilirubin Urine NEGATIVE NEGATIVE Ketones Urine NEGATIVE NEGATIVE mg/dL Blood Urine NEGATIVE NEGATIVE Nitrite Urine NEGATIVE NEGATIVE Urobilinogen Urine 0.2 0.2-1.0 EU/dL Leukocyte Esterase Urine TRACE NEGATIVE Urine Microscopic Indicated YES Performing Lab: see note - [facility] LB URINE MICROSCOPIC ONLY Reviewed date:11/15/2024 07:10:23 PM Interpretation: Performing Lab: Notes/Report: [facility] , WBC Urine 2-5 NONE SEEN #/HPF RBC Urine 0-2 0-2 #/HPF Bacteria Urine TRACE NONE SEEN #/HPF Mucus Urine NONE SEEN NONE SEEN Squamous Epithelial Cell Urine FEW NONE/RARE #/LPF Crystals Seen? None Seen None Seen #/HPF Cast Seen? NONE SEEN NONE SEEN #/LPF Urine Culture Indicated NO Performing Lab: see note - [facility] LB WET PREP Reviewed date:11/15/2024 07:10:23 PM Interpretation: Performing Lab: Notes/Report: [facility] , Wet Prep Tric BV Catrina See Below For Report Wet Prep Tric BV Catrina WP.BACT Bacteria^Bacteria Wet Prep Tric BV [place]rina MO Moderate^Moderate Wet Prep Tric BV [place] WP.BACT Bacteria^Bacteria Wet Prep Tric BV [place] WP.CLUE Clue Cells^Clue Cells Wet Prep Tric BV Catrina WP.BACT Bacteria^Bacteria Wet Prep Tric BV Catrina N None Seen^None Seen Wet Prep Tric BV [place]rina WP.BACT Bacteria^Bacteria Wet Prep Tric BV [place]rina WP.ALLIE Fungal Elements^Fungal Elements Wet Prep Tric BV Catrina WP.BACT Bacteria^Bacteria Wet Prep Tric BV Catrina N None Seen^None Seen Wet Prep Tric BV Catrina WP.BACT Bacteria^Bacteria Wet Prep Tric BV [place]rina WP.RBC RBC^RBC Wet Prep Tric BV Catrina WP.BACT Bacteria^Bacteria Wet Prep Tric BV [place]rina R Rare^Rare Wet Prep Tric BV Catrina WP.BACT Bacteria^Bacteria Wet Prep Tric BV Catrina WP.TRICH Trichomonas^Trichomona s Wet Prep Tric BV Catrina WP.BACT Bacteria^Bacteria Wet Prep Tric BV Catrina N None Seen^None Seen Wet Prep Tric BV Catrina WP.BACT Bacteria^Bacteria Wet Prep Tric BV Catrina WP.WBC WBC^WBC Wet Prep Tric BV Catrina WP.BACT Bacteria^Bacteria Wet Prep Tric BV Catrina F Few^Few Wet Prep Tric BV Catrina WP.BACT Bacteria^Bacteria Performing Lab: see note ML - [facility] LB Chlamydia/GC Amplification Reviewed date:11/17/2024 04:29:05 PM Interpretation: Performing Lab: Notes/Report: vaginal [facility] , Chlamydia trachomatis, SWAPNA Negative Negative Neisseria gonorrhoeae, SWAPNA Negative Negative Performed at: =G - [facility] [address] [id number] Hot Mill Tin Roller: Margret Patel MD, Phone: [phone] Performing Lab: see note LC - [facility] LB US OB transvaginal Reviewed date:11/15/2024 07:10:23 PM Interpretation: Performing Lab: Notes/Report: Source Facility: [place] [address] Ultrasound Report Signed Patient: SHEYLA LEA MR#: [id number] : 2005 Acct:[id number] Age/Sex: 19 / F ADM Date: 11/15/24 Loc: ER Attending Dr: Ordering Physician: Chelsey King Date of Service: 11/15/24 Procedure(s): US OB transvaginal Accession Number(s): [id number] cc: Chelsey King; Hector Dai M.D. [place] [address] Patient Name: SHEYLA LEA MRN: [id number] date: 2005 Sex: F Assigned Patient Location: ED.MAIN Current Patient Location: ED.MAIN Accession/Order Number: [id number] Exam Date: 11/15/2024 13:29 Report Date: 11/15/2024 13:31 At the request of: CHELSEY KING ONYX CHIP TERRAZZO WORKER Procedure: US OB transvaginal OB ultrasound. Reason [...] Jr., D.O. 11/15/2024 1:31 PM Dictation Location: [place] [address] Electronically authenticated by: [id number] Y Date: 11/15/2024 13:31 Dictated By: Nathen Chavez M.D. Signed By: 11/15/24 1334 DD/ 1331 TD/TT: Glass Melt Operator: [place] [address] Ultrasound Report Signed Patient: SHEYLA LEA MR#: [id number] : 2005 Acct:[id number] Age/Sex: 19 / F ADM Date: 11/15/24 Loc: ER Attending Dr: Ordering Physician: Chelsey King Date of Service: 11/15/24 Procedure(s): US OB transvaginal Accession Number(s): [id number] cc: Chelsey King; Hector Dai M.D. [place] [id number] Patient Name: SHEYLA LEA MRN: [id number] date: 2005 Sex: F Assigned Patient Location: ED.MAIN Current Patient Location: ED.MAIN Accession/Order Number: [id number] Exam Date: 11/15/2024 13:29 Report Date: 11/15/2024 13:31 At the request of: CHELSEY KING ONYX CHIP TERRAZZO WORKER Procedure: US OB transvaginal OB ultrasound. Reason [...] Jr., D.O. 11/15/2024 1:31 PM Dictation Location: [place] [address] Electronically authenticated by: [id number] Y Date: 11/15/2024 13:31 Dictated By: Nathen Chavez M.D. Signed By: 11/15/24 1334 DD/ 1331 TD/TT: Glass Melt Operator: CBC AUTO DIFF Reviewed date:12/17/2024 07:59:11 PM Interpretation: Performing Lab: Notes/Report: [facility] , White Blood Count 6.3 4.0-11.0 10 3/uL Red Blood Count 4.68 4.20-5.40 10 6/uL Hemoglobin 13.4 12.0-16.0 g/dL Hematocrit 39.7 36.0-48.0 % Mean Corpuscular Volume 84.8 81.0-99.0 fL Mean Corpuscular Hemoglobin 28.6 26.7-34.0 pg Mean Corpuscular HGB Conc 33.8 29.9-35.2 g/dL Red Cell Distribution Width 13.3 11.0-15.0 % Platelet Count 238 150-450 10 3/uL Mean Platelet Volume 11.2 9.5-13.5 fL Neutrophils Percent Auto 69.1 43.0-75.0 % Lymphocytes Percent Auto 23.6 20.5-60.0 % Monocytes Percent Auto 4.9 1.7-12.0 % Eosinophils Percent Auto 1.4 0.9-7.0 % Basophils Percent Auto 0.8 0.2-2.0 % Immature Granulocytes Pct Auto 0.2 0.0-0.5 % Neutrophils Absolute Auto 4.4 1.4-6.5 10 3/uL Lymphocytes Absolute Auto 1.5 1.2-3.8 10 3/uL Monocytes Absolute Auto 0.3 0.3-0.8 10 3/uL Eosinophils Absolute Auto 0.1 0.0-0.7 10 3/uL Basophils Absolute Auto 0.1 0.0-0.1 10 3/uL Immature Granulocytes Abs Auto 0.01 0.00-0.03 10 3/uL Performing Lab: see note ML - [facility] LB DRUG SCREEN RAPID (URINE) Reviewed date:12/17/2024 07:59:11 PM Interpretation: Performing Lab: Notes/Report: [facility] , Cannabinoid Screen Urine NEGATIVE NEGATIVE Phencyclidine Screen Urine NEGATIVE NEGATIVE Cocaine Screen Urine NEGATIVE NEGATIVE Methamphetamines Screen Urine NEGATIVE NEGATIVE Opiate Screen Urine NEGATIVE NEGATIVE Amphetamine Screen Urine NEGATIVE NEGATIVE Benzodiazepines Screen Urine NEGATIVE NEGATIVE Tricyclic Antidepressant Urine NEGATIVE NEGATIVE Methadone Screen Urine NEGATIVE NEGATIVE Barbiturates Screen Urine NEGATIVE NEGATIVE Oxycodone Screen Urine NEGATIVE NEGATIVE Buprenorphine Screen Urine NEGATIVE NEGATIVE DRUG CLASS TEST SYSTEM CUT-OFF CONCENTRATIONS ARE FOLLOWS: AMP (Amphetamine): 500 ng/mL BAR (Barbiturates): 200 ng/mL BZO (Benzodiazepines): 150 ng/mL BUP (Buprenorphine): 10 ng/mL LILIA (Cocaine): 150 ng/mL mAMP (Methamphetamine): 500 ng/mL MTD (Methadone): 200 ng/mL OPI (Opiates): 100 ng/mL OXY (Oxycodone): 100 ng/mL PCP (Phencyclidine): 25 ng/mL THC (Cannabinoids): 50 ng/mL TCA (Trycyclic Antidepressants): 300 ng/mL Performing Lab: see note ML - [facility] LB GLYCOHEMOGLOBIN A1C Reviewed date:12/17/2024 07:59:11 PM Interpretation: Performing Lab: Notes/Report: [facility] , Glycohemoglobin A1C 4.9 4.5-6.2 % ADA RECOMMENDED LIMIT 4.0 - 6.0 ADA THERAPEUTIC TARGET < 7.0 ACTION SUGGESTED > 7.0 Estimated Average Glucose 94 Performing Lab: see note ML - [facility] LB RUBELLA AB IGG Reviewed date:12/17/2024 07:59:11 PM Interpretation: Performing Lab: Notes/Report: [facility] , Rubella Antibodies, IgG 4.26 Immune > 0.99 index Non-immune <0.90 Equivocal 0.90 - 0.99 Immune >0.99 Performed at: [facility] [address] [id number] [employer] Tin Roller: Sukhjinder Wong PhD, Phone: [phone] Performing Lab: see note - [facility] LB TSH Reviewed date:12/17/2024 07:59:11 PM Interpretation: Performing Lab: Notes/Report: [facility] , Thyroid Stimulating Hormone 50.067 0.358-3.740 uIU/mL Performing Lab: see note ML - [facility] LB Type and Screen Reviewed date:12/17/2024 07:59:11 PM Interpretation: Performing Lab: Notes/Report: [facility] , Blood Type A Positive Antibody Screen NEGATIVE HIV Ab/p24 Ag with Reflex Reviewed date:12/17/2024 07:59:11 PM Interpretation: Performing Lab: Notes/Report: [facility] , HIV Ab/p24 Ag Screen Non Reactive Non Reactive HIV-1/HIV-2 antibodies and HIV-1 p24 antigen were NOT detected. There is no laboratory evidence of HIV infection. HIV Negative Performed at: [address] [id number] [employer]ler: Sukhjinder Wong PhD, Phone: [phone] Performing Lab: see note [facility] LB Rapid Plasma Reagin, Quant Reviewed date:12/17/2024 07:59:11 PM Interpretation: Performing Lab: Notes/Report: [facility] , Rapid Plasma Reagin, Quant Non Reactive NonRea<1:1 titer Please Note: This test does not meet current guidelines for screening and diagnosis of syphilis. This test is intended for following treatment response in patients being treated for syphilis infection. To screen for syphilis infection, a reflex cascade that includes both RPR and a treponema-specific assay should be utilized, such as Treponema pallidum (Syphilis) Screening [place] (184461) or Rapid Plasma Reagin (RPR) Test With Reflex to Quantitative RPR and Confirmatory Treponema pallidum Antibodies (405680). Performed at: [address] [id number] [employer] Roller: Sukhjinder Wong PhD, Phone: [phone] Performing Lab: see note [facility] LB HCV Antibody RFX to Quant PC R Reviewed date:12/17/2024 07:59:11 PM Interpretation: Performing Lab: Notes/Report: [facility] , HCV Ab Non Reactive Non Reactive Interpretation: Comment . Not infected with HCV unless early or acute infection is suspected (which may be delayed in an immunocompromised individual), or other evidence exists to indicate HCV infection. Performing Lab: see note [facility] HBsAg Screen Reviewed date:12/17/2024 07:59:11 PM Interpretation: Performing Lab: Notes/Report: [facility] , HBsAg Screen Negative Negative Performed at: [address] [id number] [employer] [place] [employer] Roller: Sukhjinder Wong PhD, Phone: [phone] Performing Lab: see note [facility] LB Urine Culture, Routine Reviewed date:12/18/2024 08:34:56 AM Interpretation: Performing Lab: Notes/Report: [facility] , Urine Culture, Routine See Below For Report Urine Culture, Routine Urine Culture, Routine Mixed urogenital mar Urine Culture, Routine Urine Culture, Routine 50,000-100,000 co lony forming units per mL Urine Culture, Routine Urine Culture, Routine Performed at: [facility] Urine Culture, Routine Urine Culture, Routine [address] [place] [id number] Urine Culture, Routine Urine Culture, Routine [employer]ler: Dread Wong PhD, Phone: [phone] Urine Culture, Routine Performing Lab: see note [facility] LB SEE REPORT - Rubber Goods Tester Id information not found for OBX-specific remote operations producer legend Clayton Box Reviewed date:12/17/2024 07:59:11 PM Interpretation: Performing Lab: Notes/Report: [facility] , BOX Test Sent Out UNITY BOX Test Reference Lab UNITY BOX Test Date Sent 01/03/2025 Performing Lab: see note ML - [facility] LB TSH Reviewed date:07/04/2024 08:39:44 PM Interpretation: Performing Lab: Notes/Report: [facility] , Thyroid Stimulating Hormone 1.491 0.358-3.740 uIU/mL Performing Lab: see note ML - [facility] LB T4 Reviewed date:07/04/2024 08:39:44 PM Interpretation: Performing Lab: Notes/Report: [facility] , T4 Thyroxine 9.40 4.80-13.90 ug/dL Performing Lab: see note - [facility] LB PROF 14(COMP METB) Reviewed date:07/04/2024 08:39:44 PM Interpretation: Performing Lab: Notes/Report: [facility] , Sodium 139 136-145 mmol/L Potassium 4.0 [...] 1.1 Performing Lab: see note ML - [facility] LB FREE T3 Reviewed date:07/04/2024 08:39:44 PM Interpretation: Performing Lab: Notes/Report: [facility] , Free T3 3.75 2.18-3.98 pg/mL Performing Lab: see note ML - [facility] LB CBC AUTO DIFF Reviewed date:07/04/2024 08:39:44 PM Interpretation: Performing Lab: Notes/Report: [facility] , White Blood Count 5.2 4.0-11.0 10 [...] 3/uL Performing Lab: see note ML - [facility] LB Reason For Referral Reason hypothyriod Diagnosis 1 Well adult (Z00.00) Diagnosis 2 Hypothyroid (E03.9) Referral Organization [facility] Referring Provider First Name Blair Referring Provider Last Name Suhas Referring Provider Speciality Family [facility] anatoliy Referred Provider Loretta Winkler Referred [...] days Active Fluocinonide 0.05 % 1 application Database Programmer Analyst ally Twice a day 07/05/2024 Active Levothyroxine [...] Status W/U Status Risk Notes Problem Hypothyroid (58602214) Hypothyroid (E03.9) Active confirmed Problem Acid reflux (401999247) Acid reflux (K21.9) Active confirmed Problem Gastroesophageal reflux disease (836904339) GERD without esophagitis (K21.9) Active confirmed Problem Well adult (681955367) Well adult (Z00.00) Active confirmed Problem Polycystic ovary syndrome (disorder) (484256448) PCOS (polycystic ovarian syndrome) (E28.2) Active confirmed Problem Irritable bowel (61904103) Irritable bowel (K58.9) Active confirmed Vital Signs Blood pressure diastolic 82 mm Hg 07/05/2024 BMI Percentile 97.98 % 07/05/2024 Height 63 in 07/05/2024 Blood pressure systolic 112 mm Hg 07/05/2024 Weight 216.0 lbs 07/05/2024 BMI 38.26 kg/m2 07/05/2024 Encounters Encounter Location Date Provider Diagnosis [address] [address] 05/22/2024 Blair Dai PCOS (polycystic ovarian syndrome) E28.2 ; Hypothyroid E03.9 ; Well adult Z00.00 and Encounter for long-term (current) use of other medications Z79.[address] [place] [address] [place] [address] 07/04/2024 Blair Dai [place] [address] [place] [address] 11/13/2024 Blair Dai [place] [address] [place] [address] 11/15/2024 Blair Dai Positive t est Z32.01 [place] [address] [place] [address] 04/17/[address] [facility] [address] [facility] [place] [address] 05/22/[address] [facility] [address] [facility] [place] [address] 06/26/[address] [facility] [address] [facility] [place] [address] 10/10/[address] [facility] [address] [facility] [place] [address] 11/20/[address] [facility] [address] [facility] [place] [address] 04/07/2024 Blair Dai Well adult Z00.00 an d Hypothyroid E03.9 [facility] [address] [facility] [place] [address] 07/05/2024 Blair Dai Irritable bowel K58. 9 [...] GLYCOHEMOGLOBIN A1C 05/22/2024 THYROID PANEL (T4/TSH/FREE T3) Insurance Providers Payer Name Payer Address Payer Phone Subscriber Number Group Number Insured Name Patient Relationship to Insured Coverage Start Date Coverage End Date [employer] [address] [place] [address] [id number] Bruce Child - Insured has Financial Responsibility [employer] [address] [place] [address] [id number] Sheyla Lea Self - patient is the insured Medical (General) History Medical History History ICD Code PCOS (polycystic ovarian syndrome) E28.2 Acid reflux K21.9 Surgical History Surgery Date(Month/Year) Tonsillectomy EGD 02/07 diagnostic lap 01/07 Thyroidectomy 09/07
--- OUTSIDE RECORDS SUMMARY | 2024-12-18 11:40 | XMS_ITS | Encounter Summary ---
Author Organization [facility] Address [address] [place] [address] Care Team Providers Care Mailing Machine Helper Name Role Phone Hector Dai MD Primary Care Provider [phone] Encounter Details Date Type Department Care Team (Late st Contact Info) Description 01/14/2024 Abstract EUGENIA MAYA [facility] [place] [id number] Gerardo Meredith DO [address], [place] [address] Social History Tobacco Use Types Packs/Day Years [...] 01/02/2025 11:10 AM EDT Routine EUGENIA MAYA [facility] [place] [phone] Gerardo Meredith, DO [address], [place] [id number] documented as of this encounter Visit Diagnoses Not on filedocumented in this encounter Care Teams Mailing Machine Helper Relationship Specialty Start Date End Date Hector Dai MD [address] [place] [address] PCP - General Family Medicine 04/07/24 documented as of this encounter
--- OUTSIDE RECORDS SUMMARY | 2024-12-18 11:40 | XMS_ITS | Encounter Summary ---
Author Organization [facility] Address [id number] [address] [place] [address] Care Team Providers Care Punch Press Operator Helper Name Role Phone Hector Dai MD Primary Care Provider [phone] Encounter Details Date Type Department Care Team (Late st Contact Info) Description 11/29/2023 Orders Only [facility] Internal Medicine - Family Medicine [address] [place] [address] Susy Lee CMA Postoperative hypothyroidism [...] External Tsh 0.643 SUNQUEST 11/26/2023 Anita Sherwood RODENT CONTROL WORKER-MOPHEAD TRIMMER AND WRAPPER LAB BLOOD ORDERABLES Fin al Result SUNQUEST documented in this encounter Visit Diagnoses Diagnosis Postoperative hypothyroidism Postsurgical hypothyroidism documented in this encounter Additional Health Concerns Assessment Noted Time PHQ-9 Depression Total Score: 0 11/23/19 24 4:08 PM EDT documented as of this encounter Care Teams Punch Press Operator Helper Relationship Specialty Start Date End Date Hector Dai MD [address] [place] [address] PCP - General Family Medicine 10/12/24 documented as of this encounter
--- OUTSIDE RECORDS SUMMARY | 2024-12-18 11:40 | XMS_ITS | Encounter Summary ---
Author Organization [facility] Address [address] [place] [address] Care Team Providers Care Kiln Packer Name Role Phone Hector Dai MD Primary Care Provider [phone] Encounter Details Date Type Department Care Team (Late st Contact Info) Description 01/14/2024 Abstract EUGENIA MAYA [facility] [place] [phone] Gerardo Meredith DO [address], [place] [address] Social History Tobacco Use Types Packs/Day Years [...] 01/02/2025 11:10 AM EDT Routine EUGENIA MAYA [facility] [place] [phone] Gerardo Meredith, DO [address], [place] [phone] documented as of this encounter Visit Diagnoses Not on filedocumented in this encounter Care Teams Kiln Packer Relationship Specialty Start Date End Date Hector Dai MD [address] [place] [address] PCP - General Family Medicine 04/07/24 documented as of this encounter
--- OUTSIDE RECORDS SUMMARY | 2024-12-18 11:40 | XMS_ITS | Encounter Summary ---
Author Organization [employer] Address [id number] [address] [place] [address] Care Team Providers Care Peripheral Edp Equipment Operator Name Role Phone Hector Dai MD Primary Care Provider [phone] Encounter Details Date Type Department Care Team (Late st Contact Info) Description 12/06[facility]2023 [facility] [address] [place] [address] Angel, Barbara, ENERGY CONSERVATION DIRECTOR Social History Tobacco Use Types Packs/Day Years [...] documented as of this encounter Care Teams Peripheral Edp Equipment Operator Relationship Specialty Start Date End Date Hector Dai MD [address] [place] [address] PCP - General Family Medicine 10/12/24 documented as of this encounter
--- OUTSIDE RECORDS SUMMARY | 2024-12-18 11:40 | XMS_ITS | Encounter Summary ---
Author Organization [facility] Address [address] [place] [address] Care Team Providers Care Curriculum Writer Name Role Phone Hector Dai MD Primary Care Provider [phone] Encounter Details Date Type Department Care Team (Late st Contact Info) Description 12/31/2023 Clinisync Result Encounter [facility] External Department Unsolicited Adolfo Meredith DO [address] [place] [address] Social History Tobacco Use Types Packs/Day Years [...] AM EDT Routine [facility] Anoop MAYA [address] [place] [phone] Adolfo Meredith DO [address] [place] [address] documented as of this encounter Procedures Procedure Name Priority Date/Time Associated Diagnosis Comments ECG 12-LEAD 12/31/2023 10:35 AM EDT documented in this encounter Results * ECG 12-LEAD (12/31/2023 10:35 AM EDT) Anatomical Region Laterality Modality Other 12/31/2023 10:3 5 AM EDT Narrative 12/31/2023 6:35 [place] [address] Electrocardiograph Report Signed Patient: SACHA LEA IM MR#: [id number] : 2005 Acct:[id number] Age/Sex: 18 / F ADM Date: 12/31/23 Loc: PST Attending Dr: Adolfo Meredith D.O. Ordering Physician: Adolfo Meredith D.O. Date of Service: 12/31/23 Procedure(s): ECG 12 lead Accession Number(s): [id number] cc: The [facility] Test Date: 2023-12-31 Pat Name: SACHA LEA Department: Room: - Gender: Female Corporate Development Associate: : 2005 Requested By: ADOLFO MEREDITH Order Number: [id number] Reading MD: JUSTEN JONES Measurements Intervals [place] Rate: 78 P: 21 PA: 135 QRS: 66 QRSD: 83 T: 45 QT: 333 QTc: 380 Interpretive Statements SINUS RHYTHM No previous ECG available for comparison Electronically Signed On 12-31-2023 18:35:33 EDT by JUSTEN JONES Dictated By: Justen Jones D.O. Signed By: 12/31/23 1835 DD/ 1035 TD/TT: Community Dietitian: Procedure Note Radiology, Radiologist, MD - 12/31/2023 The [place] [id number] Electrocardiograph Report Signed Patient: SACHA LEA IMMR#: [id number] : 2005Acct:[id number] Age/Sex: 18 / FADM Date: 12/31/23 Loc: PST Attending Dr: Adolfo Meredith D.O. Ordering Physician: Adolfo Meredith D.O. Date of Service: 12/31/23 Procedure(s): ECG 12 lead Accession Number(s): [id number] cc: The [facility] Test Date: 2023-12-31 Pat Name: SACHA LEA Department: Room: - Gender: Female Corporate Development Associate: : 2005 Requested By: ADOLFO MEREDITH Order Number: [id number] Reading MD: JUSTEN JONES Measurements Intervals [place] Rate: 78 P: 21 PA: 135 QRS: 66 QRSD: 83 T: 45 QT: 333 QTc: 380 Interpretive Statements SINUS RHYTHM No previous ECG available for comparison Electronically Signed On 12-31-2023 18:35:33 EDT by JUSTEN JONES Dictated By: Justen Jones D.O. Signed By:12/31/23 1835 DD/ 1035 TD/TT: Community Dietitian: us Adolfo Meredith DO [facility] Final Result documented in this encounter Visit Diagnoses Not on filedocumented in this encounter Care Teams Curriculum Writer Relationship Specialty Start Date End Date Hector Dai MD [address] [place] [address] PCP - General Family Medicine 04/07/24 documented as of this encounter
--- OUTSIDE RECORDS SUMMARY | 2024-12-18 11:40 | XMS_ITS | Encounter Summary ---
[facility][id number] [address] [place] [address] Care Team Providers Care Lens Assorter Name Role Phone Hector Dai MD Primary Care Provider [phone] Encounter Details Date Type Department Care Team (Late st Contact Info) Description 02/03/2024 [facility] - [facility] Medicine [address] [place] [address] Ref Prov, [place] [address] Social History Tobacco Use Types Packs/Day Years [...] documented as of this encounter Care Teams Lens Assorter Relationship Specialty Start Date End Date Hector Dai MD [address] [place] [address] PCP - General Family Medicine 10/12/24 documented as of this encounter
--- OUTSIDE RECORDS SUMMARY | 2024-12-18 11:40 | XMS_ITS | Encounter Summary ---
Author Organization [facility] Address [address] [place] [address] Care Team Providers Care Medical Office Technology Instructor Name Role Phone Hector Dai MD Primary Care Provider [phone] Encounter Details Date Type Department Care Team (Late st Contact Info) Description 01/19/2024 Abstract EUGENIA MAYA [facility] [place] [phone] Gerardo Meredith DO [address] [place], [place] [address] Social History Tobacco Use Types Packs/Day Years [...] 01/02/2025 11:10 AM EDT Routine EUGENIA MAYA [facility] [place] [phone] Gerardo Meredith, DO [address] [place], [place] [address] documented as of this encounter Visit Diagnoses Not on filedocumented in this encounter Care Teams Medical Office Technology Instructor Relationship Specialty Start Date End Date Hector Dai MD [address] [place] [address] PCP - General Family Medicine 04/07/24 documented as of this encounter
--- OUTSIDE RECORDS SUMMARY | 2024-12-18 11:40 | XMS_ITS | Encounter Summary ---
Author Organization [facility] Address [address] [place] [address] Care Team Providers Care Project Management Intern Name Role Phone Hector Dai MD Primary Care Provider [phone] Encounter Details Date Type Department Care Team (Late st Contact Info) Description 11/24/2023 Abstract EUGENIA MAYA [facility] [place] [phone] Gerardo Meredith DO [address] [place], [place] [address] Social History Tobacco Use Types Packs/Day Years [...] EUGENIA MAYA [facility] [place] [address] Gerardo Meredith, DO [address] [place], [place] [id number] documented as of this encounter Visit Diagnoses Not on filedocumented in this encounter Care Teams Project Management Intern Relationship Specialty Start Date End Date Hector Dai MD [address] [place] [address] PCP - General Family Medicine 04/07/24 documented as of this encounter
--- OUTSIDE RECORDS SUMMARY | 2024-12-18 11:41 | XMS_ITS | Encounter Summary ---
Author Organization [facility] Address [facility] [place] [address] Care Team Providers Care Transfer Station Operator Name Role Phone Anita Sherwood SUMA Primary Care Provider [phone] Source Comments In the event this information is protected by the Federal Confidentiality of Alcohol and Drug AbusePatient Records regulations: The Federal rules restrict any use of the information to criminally investigate or prosecute any alcohol or drug abuse patient.[facility] Encounter Details Date Type Department Care Team (Late st Contact Info) Description 09/10/2023 Patient Msg Head and Neck [place] [address] [place] [address] Provider, Rito CHRIS Social History Tobacco Use [...] is lower risk 9 01/07/2023 Data from: https://www.neighborhoodatlas.[facility]/. Last address used for calculation [address] [...] on filedocumented in this encounter Care Teams Transfer Station Operator Relationship Specialty Start Date End Date Anita Sherwood NP [address] [place] [address] PCP - General Family Medicine 08/17/23 documented as of this encounter
--- OUTSIDE RECORDS SUMMARY | 2024-12-18 11:41 | XMS_ITS | Encounter Summary ---
Author Organization [facility] Address [address] [place] [address] Care Team Providers Care Special Agent Group Insurance Name Role Phone Anita Sherwood SUMA Primary Care Provider [phone] Source Comments In the event this information is protected by the Federal Confidentiality of Alcohol and Drug AbusePatient Records regulations: The Federal rules restrict any use of the information to criminally investigate or prosecute any alcohol or drug abuse patient.[facility] Encounter Details Date Type Department Care Team (Late st Contact Info) Description 08/31/2023 Patient Msg Endocrinology [address] [place] [address] Ysei Pizano MD Results Social History Tobacco Use [...] is lower risk 9 01/07/2023 Data from: https://www.neighborhoodatlas.medicine.[facility].edu/. Last address used for calculation [...] on filedocumented in this encounter Care Teams Special Agent Group Insurance Relationship Specialty Start Date End Date Anita Sherwood NP [address] [place] [address] PCP - General Family Medicine 08/17/23 documented as of this encounter
--- OUTSIDE RECORDS SUMMARY | 2024-12-18 11:41 | XMS_ITS | Encounter Summary ---
Author Organization [facility] Address [facility][id number] [address] [place] [address] Care Team Providers Care Cardiac Technician Name Role Phone Hector Dai MD Primary Care Provider [phone] Encounter Details Date Type Department Care Team (Late st Contact Info) Description 02/21/2024 [facility]phone [facility] - Family Medicine [address] [place] [address] Asad Sam CMA Social History [...] documented as of this encounter Care Teams Cardiac Technician Relationship Specialty Start Date End Date Hector Dai MD [address] [place] [address] PCP - General Family Medicine 10/12/24 documented as of this encounter
--- OUTSIDE RECORDS SUMMARY | 2024-12-18 11:41 | XMS_ITS | Encounter Summary ---
Author Organization [facility] Address [facility][id number] [address] [place] [address] Care Team Providers Care Disaster Response Director Name Role Phone Hector Dai MD Primary Care Provider [phone] Encounter Details Date Type Department Care Team (Late st Contact Info) Description 03/21/2024 [facility]phone [facility] - Family Medicine [address] [place] [address] Angel, Barbara, BOND WRITER Social History Tobacco Use Types Packs/Day Years [...] know if you can send orders to [facility] or can we draw her thyroid [...] documented as of this encounter Care Teams Disaster Response Director Relationship Specialty Start Date End Date Hector Dai MD [address] [place] [address] PCP - General Family Medicine 10/12/24 documented as of this encounter
--- OUTSIDE RECORDS SUMMARY | 2024-12-18 11:41 | XMS_ITS | Encounter Summary ---
Author Organization [facility] [employer] [facility] Address [id number] [address] [place] [address] Care Team Providers Care Line Ordering Clinician Name Role Phone Hector Dai MD Primary Care Provider [phone] Encounter Details Date Type Department Care Team (Late st Contact Info) Description 03/03/2024 Orders Only [facility] Internal Medicine - Family Medicine [address] [place] [address] Anita Sherwood, PHARMACY SALES REPRESENTATIVE-SUBSTANCE ABUSE SPECIALIST [address] [place] [address] Social History Tobacco Use Types Packs/Day Years [...] documented as of this encounter Care Teams Line Ordering Clinician Relationship Specialty Start Date End Date Hector Dai MD [address] [place] [address] PCP - General Family Medicine 10/12/24 documented as of this encounter
--- OUTSIDE RECORDS SUMMARY | 2024-12-18 11:41 | XMS_ITS | Clinical Summary ---
Author Organization [facility] Address [id number] [address] [place] [address] Care Team Providers Care Venetian Blind Assembler Name Role Phone Hector Dai MD Primary Care Provider [phone] Allergies No known active allergies Medications venlafaxine [...] EDT - 10/12/2024 1:35 PM EDT Emergency [facility] - Emergency [address] [place] [address] Allergic contact dermatitis, unspecified trigger [...] file Insurance ANTHEM ANTHEM ANTHEM Care Teams Venetian Blind Assembler Relationship Specialty Start Date End Date Hector Dai MD [address] [place] [address] PCP - General Family Medicine 10/12/24
--- OUTSIDE RECORDS SUMMARY | 2024-12-18 11:41 | XMS_ITS | Clinical Summary ---
Author Organization [facility] Address [address] [place] [address] Care Team Providers Care Canteen Attendant Name Role Phone Anita Sherwood NP Primary Care Provider [phone] Allergies No known active allergies Medications omeprazole [...] is lower risk 9 05/12/2024 Data from: https://www.neighborhoodatlas.medicine.[facility].edu/. Last address used for calculation [address] 05/12/2024 Comments No Sex and Gender [...] Name:MIRNA SAMUEL Date of :1976 (Home) Address: [address] [place] [address] Payer ID:[id number] (NAIC) Type:PPO Address: [facility] [id number] [place] [id number] BLUE ACCESS PPO BLUE CARD PPO OOS BLUE ACCESS PPO Care Teams Canteen Attendant Relationship Specialty Start Date End Date Anita Sherwood NP [address] [place] [address] PCP - General Family Medicine 08/17/23
--- OUTSIDE RECORDS SUMMARY | 2024-12-18 11:41 | XMS_ITS | Encounter Summary ---
Author Organization [facility] Address [facility] [place] [address] Care Team Providers Care Bridal Consultant Name Role Phone Anita Sherwood SUMA Primary Care Provider [phone] Source Comments In the event this information is protected by the Federal Confidentiality of Alcohol and Drug AbusePatient Records regulations: The Federal rules restrict any use of the information to criminally investigate or prosecute any alcohol or drug abuse patient.[facility] Encounter Details Date Type Department Care Team (Late st Contact Info) Description 09/10/2023 Patient Msg Head and Neck [place] [address] [place] [address] Provider, Rito CHRIS Social History Tobacco Use [...] is lower risk 9 01/07/2023 Data from: https://www.neighborhoodatlas.[facility]/. Last address used for calculation [address] [...] on filedocumented in this encounter Care Teams Bridal Consultant Relationship Specialty Start Date End Date Anita Sherwood NP [address] [place] [address] PCP - General Family Medicine 08/17/23 documented as of this encounter
--- OUTSIDE RECORDS SUMMARY | 2024-12-18 11:41 | XMS_ITS | Encounter Summary ---
Author Organization [facility] Address [address] [place] [address] Care Team Providers Care Cyber Systems Operations Specialist Name Role Phone Anita Sherwood SUMA Primary Care Provider [phone] Source Comments In the event this information is protected by the Federal Confidentiality of Alcohol and Drug AbusePatient Records regulations: The Federal rules restrict any use of the information to criminally investigate or prosecute any alcohol or drug abuse patient.[facility] Encounter Details Date Type Department Care Team (Late st Contact Info) Description 09/01/2023 Patient Msg Endocrinology [address] [place] [address] Yesi Pizano MD Testosterone Social [...] is lower risk 9 01/07/2023 Data from: https://www.neighborhoodatlas.medicine.[facility].edu/. Last address used for calculation [address] [...] on filedocumented in this encounter Care Teams Cyber Systems Operations Specialist Relationship Specialty Start Date End Date Anita Sherwood NP [address] [place] [address] PCP - General Family Medicine 08/17/23 documented as of this encounter
--- OUTSIDE RECORDS SUMMARY | 2024-12-18 11:41 | XMS_ITS | Encounter Summary ---
Author Organization [facility] Address [address] [facility] [place] [address] Care Team Providers Care Fan Blade Truer Name Role Phone Hector Dai MD Primary Care Provider [phone] Encounter Details Date Type Department Care Team [...] AM EDT Routine [facility]BG[facility] [address] [facility] [place] [address] Gerardo Meredith DO [address] [facility] [place] [address] documented as of this encounter Visit Diagnoses Not on filedocumented in this encounter Care Teams Fan Blade Truer Relationship Specialty Start Date End Date Hector Dai MD [address] [place] [address] PCP - General Family Medicine 04/07/24 documented as of this encounter
--- OUTSIDE RECORDS SUMMARY | 2024-12-18 11:41 | XMS_ITS | Encounter Summary ---
Author Organization [facility] Address [address] [place] [address] Care Team Providers Care Security Professional Name Role Phone Hector Dai MD Primary Care Provider [phone] Reason for Visit * Reason Comments Med Refill Encounter Details Date Type Department Care Team (Late st Contact Info) Description 12/14/2024 Refill [facility] [address] [place] [address] Loretta Winkler MD [address] [place] [address] Postoperative hypothyroidism Social History Tobacco Use Types [...] AM EDT Routine [facility] [address] [address] Gerardo Meredith DO [address] [facility] [place] [address] documented as of this encounter Goals Goal Patient Goal Type Associated Problems Recent Progress Patient-Stated? Author Reminders Care Plan OB Reminders No Open Scheduling, Background documented as of this encounter Visit Diagnoses Diagnosis Postoperative hypothyroidism Postsurgical hypothyroidism documented in this encounter Additional Health Concerns Active Problems Noted Date Diagnosed Date OB Reminders 12/11/2024 documented as of this encounter Care Teams Security Professional Relationship Specialty Start Date End Date Hector Dai MD [address] [facility] [place] [address] PCP - General Family Medicine 04/07/24 documented as of this encounter
--- OUTSIDE RECORDS SUMMARY | 2024-12-18 11:41 | XMS_ITS | Encounter Summary ---
Author Organization [facility] Address [facility]-[id number] [address] [place] [address] Care Team Providers Care Pomologist Name Role Phone Hector Dai MD Primary Care Provider [phone] Encounter Details Date Type Department Care Team (Late st Contact Info) Description 02/04/2024 [facility]phone [facility] [address] [place] [address] Susy Lee CMA Social History [...] documented as of this encounter Care Teams Pomologist Relationship Specialty Start Date End Date Hector Dai MD [address] [place] [address] PCP - General Family Medicine 10/12/24 documented as of this encounter
--- NOTE | 2024-12-18 11:44 | ED.NAVMDI1 ---
HPI - Nausea/Vomiting/Diarrhea General Chief complaint: Nausea/Vomiting/Diarrhea Stated complaint: VOMITING 9 WEEKS PREG Time Seen by Provider: 12/18/24 11:32 Source: patient Mode of arrival: walk-in History of Present Illness HPI Narrative: Patient present to the emergency department with a complaint of nausea and vomiting. She is approximately 10 weeks . She is G1, P0. She has had the vomiting intermittently throughout her . She states she has not kept anything down for about 2 days at this point. She does have a history of hypothyroid. She states her levels have been off lately. She states she had a lab draw on Wednesday but has not heard from her physician. She is currently on Synthroid 175 and 50 mcg. She is also on Cytomel. She states she has felt body aches and chills. She has been afebrile. She has not had any blurry vision or headaches. No chest pain or palpitations. No shortness of breath. No abdominal pain no vaginal discharge or bleeding. She has been seeing Dr. Meredith for care. He apparently is also managing her thyroid issue. She is not taking anything at home for her nausea and vomiting. MD elicited complaint: Reports nausea and vomiting Onset (ago): day(s) Description of vomiting: Reports food contents and bilious; Denies blood-streaked, bloody, coffee grounds, foul-smelling or feculent Associated nausea: Yes Associated abdominal pain: No Location of pain: Reports none Related Data Home Medications ?Medication ?Instructions ?Recorded ?Confirmed levothyroxine 200 mcg tablet 200 mcg PO DAILY 12/31/23 12/18/24 omeprazole 40 mg capsule,delayed 40 mg PO DAILY PRN heartburn 12/31/23 12/18/24 release bupropion HCl 150 mg tablet,12 hr 150 mg PO DAILY 12/18/24 12/18/24 sustained-release liothyronine 5 mcg tablet 5 mcg PO DAILY 12/18/24 12/18/24 Previous Rx's ?Medication ?Instructions ?Recorded nitrofurantoin 100 mg PO BID 7 days #14 caps 12/18/24 monohydrate/macrocrystals 100 mg capsule (Macrobid) Allergies Allergy/AdvReac Type Severity Reaction Status Date / Time No Known Drug Allergies Allergy Verified 01/14/24 06:27 [facility] Medical History (Updated 12/18/24 @ 14:32 by ELIJAH NIEVES) Depression ?F32.A - Depression, unspecified (ICD-10) Panic attacks ?F41.0 - Panic disorder [episodic paroxysmal anxiety] (ICD-10) Anxiety ?F41.9 - Anxiety disorder, unspecified (ICD-10) Insomnia ?G47.00 - Insomnia, unspecified (ICD-10) COVID-19 ?U07.1 - COVID-19 (ICD-10) Dyspareunia Pelvic pain ?R10.2 - Pelvic and perineal pain (ICD-10) Nausea ?R11.0 - Nausea (ICD-10) GERD (gastroesophageal reflux disease) ?K21.9 - Gastro-esophageal reflux disease without esophagitis (ICD-10) Thyroid nodule ?E04.1 - Nontoxic single thyroid nodule (ICD-10) PCOS (polycystic ovarian syndrome) ?E28.2 - Polycystic ovarian syndrome (ICD-10) Surgical History (Updated 12/31/23 @ 10:24 by Mana Ulloa NP) History of myringotomy ?Z98.890 - Other specified postprocedural states (ICD-10) History of tonsillectomy and adenoidectomy ?Z90.89 - Acquired absence of other organs (ICD-10) History of thyroidectomy (09/03/23) ?E89.0 - Postprocedural hypothyroidism (ICD-10) Family History (Updated 12/31/23 @ 10:24 by Mana Ulloa NP) Other Family history of breast cancer Family history of heart disease Family history of hypertension Family history of seizures Social History (Updated 01/14/24 @ 06:28 by Katie Horton) Within the past year, how often did you have a drink containing alcohol: never Score interpretation: A score less than 3 is consistent with normal alcohol consumption. 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 Highest level of school completed/degree received: high school graduate Little interest or pleasure in doing things: not at all Feeling down, depressed, or hopeless: not at all Exam Constitutional Vital Signs, click to edit/add: Last Vital Signs Temp 98.2 F 12/18/24 11:28 Pulse 76 12/18/24 14:16 Resp 16 12/18/24 14:16 BP 111/61 12/18/24 14:16 Pulse Ox 100 12/18/24 14:16 O2 Del Method Room Air 12/18/24 11:28 Documenting provider has reviewed patient's vital signs: yes Common normals: no apparent distress and oriented x3 Nutritional appearance: overweight Orientation/consciousness: Yes awake, Yes oriented to person, Yes oriented to place and Yes oriented to time HENMT Common normals: normocephalic, TMs normal bilaterally, external nose normal, moist oral mucous membranes and oropharynx normal Respiratory Common normals: normal respiratory effort and clear to auscultation bilaterally Cardio Common normals: regular rate, regular rhythm and no murmurs GI Common normals: Normal to inspection, nondistended, normoactive bowel sounds present, soft to palpation and non-tender Extremity Common normals: normal to inspection, full ROM and normal capillary refill Course Reevaluation(s) Reevaluation #1: Patient was reevaluated she is resting in her bed she states after the medication she initially felt a little worse however after she is laid down for a bit she does feel much better. I offered her other antiemetics however she declined at this time. Time: 12:45 Time: 13:55 Reevaluation #3: Reevaluated patient she is tolerating p.o. Feeling much better over. Attempting PO Time: 14:37 Additional Reevaluation(s): I discussed urinalysis with her I will place her on Macrobid her urine will be sent for culture. She did contact her char conveyor tender cellar and he is aware of the TSH findings. He is referring her to high risk physician. She has already had her levothyroxine adjusted at this time. She states she feels much better after the medications given. She states she does have Phenergan that her char conveyor tender cellar wrote her and she is also being evaluated for Zofran pump tomorrow with her char conveyor tender cellar. She was encouraged to return with any worsening or concerning symptoms Vital Signs Vital signs: Vital Signs Temperature 98.2 F 12/18/24 11:28 Pulse Rate 94 H 12/18/24 11:28 Respiratory Rate 18 12/18/24 11:28 Blood Pressure 138/80 12/18/24 11:28 Pulse Oximetry 99 12/18/24 11:28 Oxygen Delivery Method Room Air 12/18/24 11:28 Temperature 98.2 F 12/18/24 11:28 Pulse Rate 76 12/18/24 14:16 Respiratory Rate 16 12/18/24 14:16 Blood Pressure 111/61 12/18/24 14:16 Pulse Oximetry 100 12/18/24 14:16 Oxygen Delivery Method Room Air 12/18/24 11:28 MDM - Nausea/Vomiting/Diarrhea MDM Narrative Medical decision making narrative: Patient present to the emergency department with a complaint of nausea and vomiting. She is approximately 10 weeks . She is G1, P0. She has had the vomiting intermittently throughout her . She states she has not kept anything down for about 2 days at this point. She does have a history of hypothyroid. She states her levels have been off lately. She states she had a lab draw on Wednesday but has not heard from her physician. She is currently on Synthroid 175 and 50 mcg. She is also on Cytomel. She states she has felt body aches and chills. She has been afebrile. She has not had any blurry vision or headaches. No chest pain or palpitations. No shortness of breath. No abdominal pain no vaginal discharge or bleeding. She has been seeing Dr. Meredith for care. He apparently is also managing her thyroid issue. She is not taking anything at home for her nausea and vomiting. is alert and oriented resting comfortably in her room. She is tachycardic heart otherwise has no abnormal rhythms on auscultation. Lungs are clear. Abdomen is soft nontender. Patient is alert and oriented interactive appropriately. She has no other positive exam findings. PO tolerated here in the ED. I discussed urinalysis with her I will place her on Macrobid her urine will be sent for culture. She did contact her char conveyor tender cellar and he is aware of the TSH findings. He is referring her to high risk physician. She has already had her levothyroxine adjusted at this time. She states she feels much better after the medications given. She states she does have Phenergan that her char conveyor tender cellar wrote her and she is also being evaluated for Zofran pump tomorrow with her char conveyor tender cellar. She was encouraged to return with any worsening or concerning symptoms Differential Diagnosis Differential diagnosis: Likely gastroenteritis, dehydration and other ( induced nausea/vomiting.) Medical Records Attestation: I reviewed the patient's medical records. Lab Data Attestation: I reviewed the patient's lab results. Labs: Lab Results 12/18/24 12/18/24 Range/Units 11:55 11:58 WBC 4.8 (4.0-11.0) 10^3/uL RBC 4.71 (4.20-5.40) 10^6/uL Hgb 13.7 (12.0-16.0) g/dL Hct 39.8 (36.0-48.0) % MCV 84.5 (81.0-99.0) fL MCH 29.1 (26.7-34.0) pg MCHC 34.4 (29.9-35.2) g/dL RDW 13.2 (11.0-15.0) % Plt Count 226 (150-450) 10^3/uL MPV 11.1 (9.5-13.5) fL Neut % (Auto) 59.3 (43.0-75.0) % Lymph % (Auto) 30.6 (20.5-60.0) % Kendall % (Auto) 6.0 (1.7-12.0) % Eos % (Auto) 2.9 (0.9-7.0) % Baso % (Auto) 0.8 (0.2-2.0) % Neut # (Auto) 2.9 (1.4-6.5) 10^3/uL Lymph # (Auto) 1.5 (1.2-3.8) 10^3/uL Kendall # (Auto) 0.3 (0.3-0.8) 10^3/uL Eos # (Auto) 0.1 (0.0-0.7) 10^3/uL Baso # (Auto) 0.0 (0.0-0.1) 10^3/uL Abs Immat Gran (auto) 0.02 (0.00-0.03) 10^3/uL Imm/Tot Granulo (auto) 0.4 (0.0-0.5) % Sodium 135 L (136-145) mmol/L Potassium 3.5 (3.5-5.1) mmol/L Chloride 101 (98-107) mmol/L Carbon Dioxide 24.3 (21.0-32.0) mmol/L Anion Gap 13.2 BUN 5.0 L (7.0-18.0) mg/dL Creatinine 0.53 L (0.55-1.02) mg/dL Est GFR ( Amer) >60 (>=60 mL/min/1.73m^2) Est GFR (Non-Af Amer) >60 (>=60 mL/min/1.73m^2) BUN/Creatinine Ratio 9.4 Glucose 85 (74-106) mg/dL Calcium 9.1 (8.5-10.1) mg/dL Magnesium 1.8 (1.8-2.4) mg/dL Total Bilirubin 0.5 (0.2-1.0) mg/dL AST 15 (15-37) U/L ALT 23 (14-59) U/L Alkaline Phosphatase 49 (46-116) U/L Total Protein 7.2 (6.4-8.2) g/dL Albumin 3.7 (3.4-5.0) g/dL Globulin 3.5 g/dL Albumin/Globulin Ratio 1.1 Free T4 0.81 (0.76-1.46) ng/dL TSH & Free T4 Interp 66.281 H (0.358-3.740) uIU/mL Urine Color Lt. yellow (YELLOW) Urine Clarity Clear (CLEAR) Urine pH 7.0 (5.0-9.0) Ur Specific Esopus <=1.005 A (1.005-1.025) Urine Protein Negative (NEG/TRACE) mg/dL Urine Glucose (UA) Negative (NEGATIVE) mg/dL Urine Ketones Negative (NEGATIVE) mg/dL Urine Occult Blood Negative (NEGATIVE) Urine Nitrite Negative (NEGATIVE) Urine Bilirubin Negative (NEGATIVE) Urine Urobilinogen 0.2 (0.2-1.0) EU/dL Ur Leukocyte Esterase Small A (NEGATIVE) Urine RBC 0-2 (0-2) #/HPF Urine WBC 2-5 A (NONE SEEN) #/HPF Ur Squamous Epith Cells Few A (NONE/RARE) #/LPF Urine Crystals None seen (None Seen) #/HPF Urine Bacteria Small A (NONE SEEN) #/HPF Urine Casts None seen (NONE SEEN) #/LPF Urine Mucus None seen (NONE SEEN) Ur Culture Indicated? Yes-[facility] [place] Discharge Plan Discharge Chief Complaint: Nausea/Vomiting/Diarrhea Clinical Impression: Hyperemesis gravidarum, Abnormal urinalysis Hypothyroid Qualifiers: Hypothyroidism type: unspecified Qualified Code(s): E03.9 - Hypothyroidism, unspecified Patient Disposition: Home, Self-Care Time of Disposition Decision: 14:32 Condition: Good Mode of Transportation: Private Vehicle Prescriptions / Home Meds: New nitrofurantoin monohyd/m-cryst [Macrobid] 100 mg capsule 100 mg PO BID 7 Days Qty: 14 0RF Rx Instructions: must administer with a meal/food No Action liothyronine 5 mcg tablet 5 mcg PO DAILY bupropion HCl 150 mg tablet sustained-release 12 hr 150 mg PO DAILY omeprazole 40 mg capsule,delayed release(DR/EC) 40 mg PO DAILY PRN (Reason: heartburn) levothyroxine 200 mcg tablet 200 mcg PO DAILY Print Language: Mohawk Instructions: Hyperemesis Gravidarum (ED), Hypothyroidism (ED), Urinary Tract Infection in (ED) Additional Instructions: Follow-up with char conveyor tender cellar regarding the TSH results as you have already done. Increase fluids throughout the day. Recommend electrolyte replacement. Phenergan as needed as written by your char conveyor tender cellar. Follow-up tomorrow as discussed. Referrals: Gerardo Meredith DO [Physician, VEHICLE REFINISHER] - As soon as possible Referral Note: tomorrow as scheduled Hector Dai MD [Primary Care Provider, Family Practice] - 1 week Discharge Date/Time: 12/18/24 14:47
[2024-12-18] MEDS: DIPHENHYDRAMINE HCL 50 MG/ML VIAL 25 MG IVP (12:06)
[2024-12-18] MEDS: METOCLOPRAMIDE HCL 10 MG/2 ML VIAL IVP (12:06)
[2024-12-18] MEDS: 0.9 % SODIUM CHLORIDE 1,000 ML 999 ML IV (12:07)
[2024-12-18 12:16] LABS: Glucose Urine UA NEGATIVE (NEGATIVE)
[2024-12-18 12:17] LABS: Hematocrit 39.8 % (36.0-48.0); Hemoglobin 13.7 g/dL (12.0-16.0); Immature Granulocytes Abs Auto 0.02 10^3/uL (0.00-0.03); Immature Granulocytes Pct Auto 0.4 % (0.0-0.5); Lymphocytes Absolute Auto 1.5 10^3/uL (1.2-3.8); Mean Corpuscular HGB Conc 34.4 g/dL (29.9-35.2); Mean Corpuscular Hemoglobin 29.1 pg (26.7-34.0); Mean Corpuscular Volume 84.5 fL (81.0-99.0); Platelet Count 226 10^3/uL (150-450); Red Blood Count 4.71 10^6/uL (4.20-5.40); White Blood Count 4.8 10^3/uL (4.0-11.0)
[2024-12-18 12:23] LABS: Cast Seen? NONE SEEN #/LPF (NONE SEEN); Crystals Seen? None Seen #/HPF (None Seen); Urine Culture Indicated YES-FRMC
[2024-12-18 12:30] LABS: Alanine Aminotransferase 23 U/L (14-59); Albumin Globulin Ratio 1.1; Albumin Level 3.7 g/dL (3.4-5.0); Alkaline Phosphatase 49 U/L (46-116); Anion Gap 13.2; Aspartate Amino Transferase 15 U/L (15-37); Blood Urea Nitrogen 5.0 mg/dL (7.0-18.0); Calcium 9.1 mg/dL (8.5-10.1); Carbon Dioxide 24.3 mmol/L (21.0-32.0); Chloride 101 mmol/L (98-107); Estimated GFR (African America >60 (>=60 mL/min/1.73m^2); Estimated GFR (Non-African Ame >60 (>=60 mL/min/1.73m^2); Globulin 3.5 g/dL; Glucose 85 mg/dL (74-106); Potassium 3.5 mmol/L (3.5-5.1); Sodium 135 mmol/L (136-145); Total Protein 7.2 g/dL (6.4-8.2)
[2024-12-18 12:41] LABS: Magnesium 1.8 mg/dL (1.8-2.4)
[2024-12-18 12:42] LABS: TSH W/ REFLEX FT4 66.281 uIU/mL (0.358-3.740)
[2024-12-18 12:50] VITALS: BP 116/87
[2024-12-18 14:16] VITALS: BP 111/61; PULSE 76; O2SAT 100
== END 2024-12-18 14:47 | disposition home or self-care (01) ==
PROVIDERS: Physician Assistant; Emergency Provider Emergency Medicine; PCP Family Medicine
DX: O21.0 Mild hyperemesis gravidarum (principal); O99.281 Endocrine, nutritional and metabolic diseases complicating pregnancy, first trimester; E03.9 Hypothyroidism, unspecified; Z3A.10 10 weeks gestation of pregnancy; R82.90 Unspecified abnormal findings in urine; Z79.890 Hormone replacement therapy
CPT/HCPCS: 36415; 80053; 81001; 83735; 84439; 84443; 85025; 87086; 96361; 96374; 96375; 99285; J1200; J2765

== ENCOUNTER 2024-12-27 10:02 | Outpatient (OUT) | payer BC, OTHER, SELFPAY ==
--- OUTSIDE RECORDS SUMMARY | 2024-12-19 13:00 | XMS_ITS | Encounter Summary ---
Author Organization [facility] Address [address] [place] [address] Care Team Providers Care Player Services Representative Name Role Phone Hector Dai MD Primary Care Provider [phone] Reason for Visit * Reason Comments Routine Visit Results Encounter Details Date Type Department Care Team (Late st Contact Info) Description 12/19/2024 1:00 PM EDT Routine [facility] [address] [place] [phone] Gerardo Meredith DO [address] [place], [place] [id number] First trimester ([facility]); 9 weeks gestation of ([facility]); Encounter to discuss test results; headache, antepartum ([facility]); Nausea Social History Tobacco Use Types Packs/Day Years [...] Sign Reading Time Taken Comments Blood Pressure 118/78 12/19/2024 1:18 PM EDT Pulse - - Temperature - - Respiratory Rate - - Oxygen Saturation - - Inhaled Oxygen Concentration - - Weight 105 kg (232 lb 1.9 oz) 12/19/2024 1:18 PM EDT Height - - Body Mass Index 41.12 05/09/2024 9:23 AM EST documented in this encounter Progress Notes * Bella Strickland, VALERIA - 12/19/2024 1:00 PM EDT Reason for Appointment: Patient ID: Sheyla Lea is a 19 y.o. female who presents for Routine Visit and Results Patient presents today for Return OB appointment. MEDICATIONS Current Outpatient Medications Medication Instructions buPROPion SR (WELLBUTRIN SR) 150 mg, Oral, Daily, Take 1 tablet daily busPIRone (Buspar) 5 MG tablet Oral, 2 times daily, Unsure of dose levothyroxine (SYNTHROID) 50 mcg, Oral, Daily before breakfast levothyroxine (SYNTHROID, LEVOXYL) 175 mcg, Oral, Daily before breakfast liothyronine (CYTOMEL) 5 mcg, Oral, Daily pantoprazole (PROTONIX) 40 mg, Daily before breakfast promethazine (PHENERGAN) 12.5 mg, Oral, Every 4 hours ALLERGIES No Known Allergies PROBLEMS Active Ambulatory [...] whiting Breast cancer Paternal Grandmother Alesha Lea SURGICAL HISTORY Past Surgical History: Procedure Laterality Date ADENOIDECTOMY LAPAROSCOPY DIAGNOSTIC / BIOPSY / ASPIRATION / LYSIS 01/14/2024 OTHER SURGICAL HISTORY 12/28/2019 nexplanon insertion THYROIDECTOMY 09/03/2023 TONSILLECTOMY REVIEW OF SYSTEMS Review of Systems: Review of Systems Constitutional: Negative. HENT: Negative. Eyes: Negative. Respiratory: Negative. Cardiovascular: Negative. Gastrointestinal: Positive for nausea and vomiting. Genitourinary: Negative. Musculoskeletal: Negative. Skin: Negative. Neurological: [...] nursing note reviewed. Exam conducted with a production control scheduler present. Vitals: Estimated body mass index is 41.12 kg/m?? as calculated from the following: Height as of 24: 5' 3 . Weight as of this encounter: 232 lb 1.9 oz. BP: 118/78 Patient's last menstrual period was 10/02/2024. ASSESSMENT & PLAN ICD-10-CM 1. First trimester ([facility]) Z34.91 POCT urinalysis dipstick manually resulted 2. 9 weeks gestation of ([facility]) Z3A.09 POCT urinalysis dipstick manually resulted 3. Encounter to discuss test results Z71.2 Pt is 9 weeks 3 days and was seen in ER for nausea and vomiting. Rx for antivert and mag oxide faxed to pharmacy. Pt being referred to [facility] for thyroid disease in and referred to [facility] for zofran pump. Pt to return in 4 weeks for scheduled OB appt. Documented by eBlla Strickland LPN on behalf of: Gerardo Meredith DO documented in this encounter Plan of Treatment Upcoming Encounters Date Type Department Care Team (Late st Contact Info) Description 01/02/2025 11:10 AM EDT Routine [facility] [address] [place] [phone] Gerardo Meredith DO [address] [place] [address] documented as of this encounter Goals Goal Patient Goal Type Associated Problems Recent Progress Patient-Stated? Author Reminders Care Plan OB Reminders No Open Scheduling, Background documented as of this encounter Procedures Procedure Name Priority Date/Time Associated Diagnosis Comments POCT URINALYSIS DIPSTICK Routine 12/19/2024 1:29 PM EDT First trimester ([facility]) 9 weeks gestation of ([facility]) documented in this encounter Results * (ABNORMAL) POCT urinalysis dipstick manually resulted (12/19/2024 1:29 PM EDT) Color, UA Yellow Clarity, UA Clear Glucose, UA Negative Negative - 2000(110) ++++ mg/dL Bilirubin, UA Negative Negative - 4(70) +++ mg/dL Ketones, UA Negative Negative - 160(16) ++++ mg/dL Spec Grav, UA 1.015 1 - 1.03 Blood, UA Negative Negative - 50 Joshua/mcL pH, UA 5.5 5 - 9 Protein, UA Negative Negative - 1999(20) ++++ mg/dL Urobilinogen, UA 1.0 0.2 - 12 mg/dL Leukocytes, UA Positive Negative - 500+++ Diego/mcL Nitrite, UA Negative Negative - Positive Urine 12/19/2024 1:29 PM EDT Gerardo Meredith DO POINT OF CARE TEST ENTER/EDIT OR DERABLES Final Result documented in this encounter Visit Diagnoses Diagnosis First trimester ([facility]) state, incidental 9 weeks gestation of ([facility]) Encounter to discuss test results Other specified counseling headache, antepartum ([facility]) Nausea Nausea alone documented in this encounter Additional Health Concerns Active Problems Noted Date Diagnosed Date OB Reminders 12/11/2024 documented as of this encounter Care Teams Player Services Representative Relationship Specialty Start Date End Date Hector Dai MD [address] [place] [phone] PCP - General Family Medicine 04/07/24 documented as of this encounter
--- OUTSIDE RECORDS SUMMARY | 2024-12-27 10:08 | XMS_ITS | Encounter Summary ---
Author Organization [facility] Address [address] [place] [address] Care Team Providers Care Chart Reader Name Role Phone Hector Dai MD Primary Care Provider [phone] Encounter Details Date Type Department Care Team (Late st Contact Info) Description 12/25/2024 Abstract [facility] [address] [place] [phone] Gerardo Meredith DO [address] [place], [place] [address] Social History Tobacco Use Types Packs/Day Years [...] Info) Description 01/02/2025 11:10 AM EDT Routine [facility] [address] [place] [address] Gerardo Meredith DO [address] [place], [facility] documented as of this encounter Goals Goal Patient Goal Type Associated Problems Recent Progress Patient-Stated? Author Reminders Care Plan OB Reminders No Open Scheduling, Background documented as of this encounter Visit Diagnoses Not on filedocumented in this encounter Additional Health Concerns Active Problems Noted Date Diagnosed Date OB Reminders 12/11/2024 documented as of this encounter Care Teams Chart Reader Relationship Specialty Start Date End Date Hector Dai MD [address] [place] [address] PCP - General Family Medicine 04/07/24 documented as of this encounter
--- OUTSIDE RECORDS SUMMARY | 2024-12-27 10:08 | XMS_ITS | Encounter Summary ---
Author Organization [facility] Address [address] [facility] [place] [address] Care Team Providers Care Chemistry Quality Control Analyst Name Role Phone Hector Dai MD Primary Care Provider [phone] Encounter Details Date Type Department Care Team (Latest Contact Info) Description 12/18/2024 Travel Social History Tobacco Use Types Packs/Day [...] AM EDT Routine [facility] [address] [place] [phone] Gerardo Meredith DO [address] [place], [place] [id number] documented as of this encounter Goals Goal Patient Goal Type Associated Problems Recent Progress Patient-Stated? Author Reminders Care Plan OB Reminders No Open Scheduling, Background documented as of this encounter Visit Diagnoses Not on filedocumented in this encounter Additional Health Concerns Active Problems Noted Date Diagnosed Date OB Reminders 12/11/2024 documented as of this encounter Care Teams Chemistry Quality Control Analyst Relationship Specialty Start Date End Date Hector Dai MD [address] [place] [address] PCP - General Family Medicine 04/07/24 documented as of this encounter
--- OUTSIDE RECORDS SUMMARY | 2024-12-27 10:08 | XMS_ITS | Encounter Summary ---
Author Organization [facility] Address [address] [place] [address] Care Team Providers Care Capacitor Pack Press Operator Name Role Phone Hector Dai MD Primary Care Provider [phone] Encounter Details Date Type Department Care Team (Late st Contact Info) Description 11/24/2023 Abstract [facility] [place] [phone] Gerardo Meredith DO [address], [place] [address] Social History Tobacco Use Types Packs/Day Years [...] 01/02/2025 11:10 AM EDT Routine [facility] [place] [phone] Gerardo Meredith, DO [address] [place], [place] [id number] documented as of this encounter Visit Diagnoses Not on filedocumented in this encounter Care Teams Capacitor Pack Press Operator Relationship Specialty Start Date End Date Hector Dai MD [address] [place] [phone] PCP - General Family Medicine 04/07/24 documented as of this encounter
--- OUTSIDE RECORDS SUMMARY | 2024-12-27 10:08 | XMS_ITS | Encounter Summary ---
Author Organization [facility] Address [address] [place] [address] Care Team Providers Care Buffing And Sueding Machine Operator Name Role Phone Anita Sherwood SUMA Primary Care Provider Source Comments In the event this information is protected by the Federal Confidentiality of Alcohol and Drug AbusePatient Records regulations: The Federal rules restrict any use of the information to criminally investigate or prosecute any alcohol or drug abuse patient.[facility] Encounter Details Date Type Department Care Team (Late st Contact Info) Description 09/01/2023 Patient Msg Endocrinology [address] [place] [address] Yesi Pizano MD Testosterone Social [...] is lower risk 9 01/07/2023 Data from: https://www.neighborhoodatlas.medicine.[facility].edu/. Last address used for [...] on filedocumented in this encounter Care Teams Buffing And Sueding Machine Operator Relationship Specialty Start Date End Date Anita Sherwood NP [address] [place] [address] PCP - General Family Medicine 08/17/23 documented as of this encounter
--- OUTSIDE RECORDS SUMMARY | 2024-12-27 10:08 | XMS_ITS ---
Author Organization [facility] Source Produ ction (ClinicalSummary Clone) Address Unknown Care Team Providers Care Supervisor Taping Name Role Phone Unavailable Primary Care Physician Unavailab le Results * [UNITY] ANEUPLOIDY NIPT Performed by: [employer] Value Range Date Fraction 5.0% 12/25/2024 04 :40 am UTC Rh(D) NIPT RhD DETECTED 12/25/2024 04:4 0 am UTC Sex Chromosome Aneuploidy NOT DETECTED 04:40 am UTC Monosomy X LOW RISK <1 in 10,000 2024 04:40 am UTC Trisomy 13 LOW RISK <1 in 10,000 2024 04:40 am UTC Trisomy 18 LOW RISK <1 in 10,000 2024 04:40 am UTC Trisomy 21 LOW RISK <1 in 10,000 2024 04:40 am UTC Sex MALE 12/25/2024 04:4 0 am UTC Gestation JACKSON 12/26/19 25 04:40 am UTC For detailed report, see PDF See PDF 12/25/2024 04:40 am UTC 12/25/2024 04:4 0 am UTC Social History Observation Value Start Date End Date
--- OUTSIDE RECORDS SUMMARY | 2024-12-27 10:08 | XMS_ITS | Encounter Summary ---
Author Organization [facility] Address [address] [place] [address] Care Team Providers Care Hand Spray Operator Name Role Phone Hector Dai MD Primary Care Provider [phone] Encounter Details Date Type Department Care Team (Late st Contact Info) Description 12/26/2024 Telephone [facility]A [address] [place] [address] Tabitha Rice LPN [address] [place] [address] Social History Tobacco Use Types Packs/Day Years [...] encounter Miscellaneous Notes * Telephone Encounter - Tabitha Rice LPN - 12/26/2024 9:47 AM EDT Pt called concerned because MFM was suppose to manage her thyroid medication due to pt being and not having a thyroid but they have yet to call her and schedule her. After talking to Dr. Meredith, I told her that we would manage medication until M seen her. Dr. Meredith would like to increase dose to 275MCG due to latest lab level being at 50.067. PVU Medication sent in. Lab order faxed to [facility] documented in this encounter Plan of Treatment Upcoming Encounters Date Type Department Care Team (Late st Contact Info) Description 01/02/2025 11:10 AM EDT Routine [facility] [address] [facility] [place] [address] Gerardo Meredith DO [address] [facility] [place] [address] Scheduled Orders Name Type Priority Associated Diagnoses Orde r Schedule TSH Lab Routine H/O thyroidectomy Thyroid disease Expected: 12/26/2024 (Approximate), Expires: 12/26/2025 documented as of this encounter Goals Goal Patient Goal Type Associated Problems Recent Progress Patient-Stated? Author Reminders Care Plan OB Reminders No Open Scheduling, Background documented as of this encounter Visit Diagnoses Diagnosis H/O thyroidectomy Thyroid disease Unspecified disorder of thyroid documented in this encounter Additional Health Concerns Active Problems Noted Date Diagnosed Date OB Reminders 12/11/2024 documented as of this encounter Care Teams Hand Spray Operator Relationship Specialty Start Date End Date Hector Dai MD [address] [facility] [place] [address] PCP - General Family Medicine 04/07/24 documented as of this encounter
--- OUTSIDE RECORDS SUMMARY | 2024-12-27 10:08 | XMS_ITS | Clinical Summary ---
Author Organization [facility] Address [id number] [address] [place] [address] Care Team Providers Care Youth Counselor Name Role Phone Hector Dai MD Primary Care Provider [phone] Allergies No known active allergies Medications venlafaxine [...] EDT - 10/12/2024 1:35 PM EDT Emergency [facility] - Emergency [address] [place] [address] Allergic contact dermatitis, unspecified trigger [...] 10/12/2024 12:32 PM EDT Plan of Treatment Upcoming Encounters Date Type Department Care Team (Late st Contact Info) Description 12/29/2024 10:00 AM EDT Office Visit Maternal- Medicine at [facility] [address] [place] [address] Andrews Harrison MD [address], [address] [place] [address] Javier Jacobs MD [address], [address] [place] [address] Health Maintenance Due Date Last Done Comments [...] file Insurance ANTHEM ANTHEM ANTHEM Care Teams Youth Counselor Relationship Specialty Start Date End Date Hector Dai MD [address] [place] [address] PCP - General Family Medicine 10/12/24
--- OUTSIDE RECORDS SUMMARY | 2024-12-27 10:08 | XMS_ITS | Encounter Summary ---
Author Organization [facility] Address [address] [place] [address] Care Team Providers Care Historical Archeologist Name Role Phone Hector Dai MD Primary Care Provider [phone] Encounter Details Date Type Department Care Team (Late st Contact Info) Description 12/18/2024 Abstract EUGENIA MAYA [address] [place] [phone] Gerardo Meredith DO [address] [place], [place] [address] Social History Tobacco Use Types Packs/Day Years [...] EDT Routine [facility] [address] [place] [address] Gerardo Meredith DO [address] [place] [address] documented as of this encounter Goals Goal Patient Goal Type Associated Problems Recent Progress Patient-Stated? Author Reminders Care Plan OB Reminders No Open Scheduling, Background documented as of this encounter Visit Diagnoses Not on filedocumented in this encounter Additional Health Concerns Active Problems Noted Date Diagnosed Date OB Reminders 12/11/2024 documented as of this encounter Care Teams Historical Archeologist Relationship Specialty Start Date End Date Hector Dai MD [address] [place] [address] PCP - General Family Medicine 04/07/24 documented as of this encounter
--- OUTSIDE RECORDS SUMMARY | 2024-12-27 10:08 | XMS_ITS | Encounter Summary ---
Author Organization [facility] Address [id number] [address] [place] [address] Care Team Providers Care Dynamite Reclaimer Name Role Phone Hector Dai MD Primary Care Provider [phone] Encounter Details Date Type Department Care Team (Late st Contact Info) Description 11/29/2023 Orders Only [facility] - Family Medicine [address] [place] [address] Susy Lee CMA Postoperative hypothyroidism [...] AM EDT Office Visit Maternal- Medicine at [facility] [address] [place] [address] Andrews Harrison MD [address], [address] [place] [address] Javier Jacobs MD [address], [address] [place] [address] documented as of this encounter Procedures Procedure Name Priority Date/Time Associated Diagnosis Comments TSH Routine 11/26/2023 Postoperative hypothyroidism documented in this encounter Results * TSH (11/26/2023) External Tsh 0.643 SUNQUEST 11/26/2023 Anita Sherwood PARTITION MAKING MACHINE OPERATOR-COMPUTATIONAL CHEMIST LAB BLOOD ORDERABLES Fin al Result SUNQUEST documented in this encounter Visit Diagnoses Diagnosis Postoperative hypothyroidism Postsurgical hypothyroidism documented in this encounter Additional Health Concerns Assessment Noted Time PHQ-9 Depression Total Score: 0 11/23/19 24 4:08 PM EDT documented as of this encounter Care Teams Dynamite Reclaimer Relationship Specialty Start Date End Date Hector Dai MD [address] [place] [address] PCP - General Family Medicine 10/12/24 documented as of this encounter
--- OUTSIDE RECORDS SUMMARY | 2024-12-27 10:08 | XMS_ITS | Encounter Summary ---
Author Organization [facility] Address [address] [place] [address] Care Team Providers Care Respiratory Scientist Name Role Phone Hector Dai MD Primary Care Provider [phone] Encounter Details Date Type Department Care Team (Late st Contact Info) Description 12/16/2024 Clinisync Result Encounter [facility] External Department Unsolicited Gerardo Meredith, DO [address] [place] [address] Social History Tobacco Use Types Packs/Day Years [...] AM EDT Routine [facility] [address] [place] [phone] Gerardo Meredith DO [address] [place] [address] documented as of this encounter Goals Goal [...] Negative Negative [facility] Comment: Performed at: - Lab[address] [id number] Supervisor Pipe Finishing: Sukhjinder Wong PhD, Phone: [phone] 12/16/2024 10:4 6 AM EDT 12/16/2024 10:51 AM EDT Narrative [facility] - 12/17/2024 11:09 AM EDT us Gerardo Viri DO LAB BLOOD ORDERABLES Final Resul t Performing Organization Address [facility]/ZIP Co de Phone Number [facility] * RAPID PLASMA REAGIN, QUANT (12/16/2024 10:46 AM EDT) RAPID PLASMA REAGIN, QUANT Non Reactive NonRea<1: 1 titer [facility] Comment: Please Note: This test does not meet current guidelines for screening and diagnosis of syphilis. This test is intended for following treatment response in patients being treated for syphilis infection. To screen for syphilis infection, a reflex cascade that includes both RPR and a treponema-specific assay should be utilized, such as Treponema pallidum (Syphilis) Screening [place] (661781) or Rapid Plasma Reagin (RPR) Test With Reflex to Quantitative RPR and Confirmatory Treponema pallidum Antibodies (627250). Performed at: [facility] [id number] Supervisor Pipe Finishing: Sukhjinder Wong PhD, Phone: [phone] 12/16/2024 10:4 6 AM EDT 12/16/2024 10:51 AM EDT Narrative [facility] - 12/17/2024 11:09 AM EDT us Gerardo Viri DO LAB BLOOD ORDERABLES Final Resul t Performing Organization Address [facility] Co de Phone Number [facility] * HIV AB/P24 AG WITH REFLEX (12/16/2024 10:46 AM EDT) HIV AB/P24 AG SCREEN Non Reactive Non Reactive [facility] Comment: HIV-1/HIV-2 antibodies and HIV-1 p24 antigen were NOT detected. There is no laboratory evidence of HIV infection. HIV Negative Performed at: [facility] [id number] Supervisor Pipe Finishing: Sukhjinder Wong PhD, Phone: [phone] 12/16/2024 10:4 6 AM EDT 12/16/2024 10:51 AM EDT Narrative [facility] - 12/17/2024 9:08 AM EDT [facility]LOOD ORDERABLES Final Resul t Performing Organization Address [facility] Co de Phone Number [facility] * HCV ANTIBODY RFX TO QUANT PCR (12/16/2024 10:46 AM EDT) Pathologist [facility] HCV AB Non Reactive Non Reactive [facility] INTERPRETATION: Comment . [facility] Comment: Not infected with HCV unless early or acute infection is suspected (which may be delayed in an immunocompromised individual), or other evidence exists to indicate HCV infection. 12/16/2024 10:4 6 AM EDT 12/16/2024 10:51 AM EDT Narrative [facility] - 12/17/2024 8:08 AM EDT [facility] LAB BLOOD ORDERABLES Final Resul t Performing Organization Address [facility] de Phone Number [facility] * ALL RUBELLA IGG AB (12/16/2024 10:46 AM EDT) Pathologist [facility] RUBELLA ANTIBODIES, IGG 4.26 Immune >0.99 index TB Comment: Non-immune <0.90 Equivocal 0.90 - 0.99 Immune >0.99 Performed at: [address] [id number] Supervisor Pipe Finishing: Sukhjinder Wong PhD, Phone: [phone] 12/16/2024 10:4 6 AM EDT 12/16/2024 10:51 AM EDT Narrative [facility] - 12/17/2024 8:08 AM EDT [facility] DO [facility] Final Result Performing Organization Address [facility] de Phone Number [facility] * ALL TYPE AND SCREEN (12/16/2024 10:46 AM EDT) Pathologist [facility] BLOOD TYPE A Positive [facility] ANTIBODY SCREEN NEGATIVE [facility] 12/16/2024 10:4 6 AM EDT 12/16/2024 10:51 AM EDT Narrative [facility] - 12/16/2024 12:20 PM EDT [facility] , Gerardo Viri DO [facility] Final Result Performing Organization Address City/[facility]/ZIP Co de Phone Number [facility] * (ABNORMAL) ALL THYROID STIM HORMONE (12/16/2024 10:46 AM EDT) THYROID STIMULATING HORMONE 50.067(H) 0.358 - 3.740 uIU/mL [facility] 12/16/2024 10:4 6 AM EDT 12/16/2024 10:51 AM EDT Narrative [facility] - 12/16/2024 11:38 AM EDT Gerardo Burto DO [facility] Final Result Performing Organization Address [facility]/ZIP Co de Phone Number [facility] * MLR HEMOGLOBIN A1C (12/16/2024 10:46 AM EDT) GLYCOHEMOGLOBIN A1C 4.9 4.5 - 6.2 % TB Comment: ADA RECOMMENDED LIMIT 4.0 - 6.0 ADA THERAPEUTIC TARGET < 7.0 ACTION SUGGESTED > 7.0 ESTIMATED AVERAGE GLUCOSE 94 mg/dL [facility] 12/16/2024 10:4 6 AM EDT 12/16/2024 10:51 AM EDT Narrative [facility] - 12/16/2024 11:19 AM EDT Gerardoarya Burto DO [facility] Final Result [facility] * ALL CBC WITH AUTO DIFF (12/16/2024 [...] us Gerardo Viri DO [facility] Final Result [facility] * BOX TEST (12/16/2024 10:46 AM EDT) BOX TEST SENT OUT [facility] BOX1 [facility] BOX2 01/03/2025 TB 12/16/2024 10:4 6 AM EDT 12/16/2024 10:51 AM EDT Narrative [facility] - 12/16/2024 10:53 AM EDT us Gerardo Viri DO LAB BLOOD ORDERABLES Final Resul t Performing Organization Address [facility] Co de Phone Number [facility] TB * [...] DO [facility] Final Result Performing Organization Address City/[facility]/ZIP Co de Phone Number [facility] documented in this encounter Visit Diagnoses Not on filedocumented in this encounter Additional Health Concerns Active Problems Noted Date Diagnosed Date OB Reminders 12/11/2024 documented as of this encounter Care Teams Respiratory Scientist Relationship Specialty Start Date End Date Hector Dai MD [address] [place] [address] PCP - General Family Medicine 04/07/24 documented as of this encounter
--- OUTSIDE RECORDS SUMMARY | 2024-12-27 10:08 | XMS_ITS | Encounter Summary ---
Author Organization [facility] Address [address] [place] [address] Care Team Providers Care Wire Frame Dipper Name Role Phone Hector Dai MD Primary Care Provider [phone] Encounter Details Date Type Department Care Team (Late st Contact Info) Description 01/14/2024 Abstract EUGENIA MAYA [facility] [place] [address] Gerardo Meredith DO [address], [place] [address] Social History Tobacco Use Types Packs/Day Years [...] 01/02/2025 11:10 AM EDT Routine EUGENIA MAYA [facility] [place] [address] Gerardo Meredith, DO [address] [place], [place] [phone] documented as of this encounter Visit Diagnoses Not on filedocumented in this encounter Care Teams Wire Frame Dipper Relationship Specialty Start Date End Date Hector Dai MD [address] [place] [address] PCP - General Family Medicine 04/07/24 documented as of this encounter
--- OUTSIDE RECORDS SUMMARY | 2024-12-27 10:08 | XMS_ITS | Encounter Summary ---
Author Organization [facility] Address [address] [place] [address] Care Team Providers Care Activities Concierge Name Role Phone Anita Sherwood SUMA Primary Care Provider Source Comments In the event this information is protected by the Federal Confidentiality of Alcohol and Drug AbusePatient Records regulations: The Federal rules restrict any use of the information to criminally investigate or prosecute any alcohol or drug abuse patient.[facility] Encounter Details Date Type Department Care Team (Late st Contact Info) Description 08/31/2023 Patient Msg Endocrinology [address] [place] [address] Yesi Pizano MD Results Social [...] is lower risk 9 01/07/2023 Data from: https://www.neighborhoodatlas.medicine.[facility].edu/. Last address used for calculation [address] [...] on filedocumented in this encounter Care Teams Activities Concierge Relationship Specialty Start Date End Date Anita Sherwood NP [address] [place] [address] PCP - General Family Medicine 08/17/23 documented as of this encounter
--- OUTSIDE RECORDS SUMMARY | 2024-12-27 10:08 | XMS_ITS | Encounter Summary ---
Author Organization [facility] Address [address] [place] [address] Care Team Providers Care Child Therapist Name Role Phone Hector Dai MD Primary Care Provider [phone] Encounter Details Date Type Department Care Team (Late st Contact Info) Description 01/19/[address] [facility] [place] [address] Gerardo Meredith DO [address], [place] [address] Social History Tobacco Use Types Packs/Day Years [...] 01/02/2025 11:10 AM EDT Routine EUGENIA MAYA [facility] [place] [address] Gerardo Meredith, DO [address] [place], [place] [phone] documented as of this encounter Visit Diagnoses Not on filedocumented in this encounter Care Teams Child Therapist Relationship Specialty Start Date End Date Hector Dai MD [address] [place] [address] PCP - General Family Medicine 04/07/24 documented as of this encounter
--- OUTSIDE RECORDS SUMMARY | 2024-12-27 10:08 | XMS_ITS | Encounter Summary ---
Author Organization [employer] [facility] Address [id number] [address] [place] [address] Care Team Providers Care Dialysis Rn Name Role Phone Hector Dai MD Primary Care Provider [phone] Encounter Details Date Type Department Care Team (Late st Contact Info) Description 12/06/2023 [facility]phone [email or web address] [address] [place] [address] Angel, Barbara, SUPERVISOR [employer] Social History Tobacco Use Types Packs/Day Years [...] AM EDT Office Visit Maternal- Medicine at [facility] [address] [place] [address] Andrews Harrison MD [address], [address] [place] [address] Javier Jacobs MD [address], [address] [place] [address] documented as of this encounter Visit Diagnoses Not on filedocumented in this encounter Additional Health Concerns Assessment Noted Time PHQ-9 Depression Total Score: 0 11/23/19 24 4:08 PM EDT documented as of this encounter Care Teams Dialysis Rn Relationship Specialty Start Date End Date Hector Dai MD [address] [place] [address] PCP - General Family Medicine 10/12/24 documented as of this encounter
--- OUTSIDE RECORDS SUMMARY | 2024-12-27 10:08 | XMS_ITS | Encounter Summary ---
Author Organization [facility] Address [address] [place] [address] Care Team Providers Care Road Design Draftsperson Name Role Phone ShireenShayla morgantrish Haddad DO Primary Care Provider [phone] Anita Sherwood NP Primary Care Provider [phone] Source Comments In the event this information is protected by the Federal Confidentiality of Alcohol and Drug AbusePatient Records regulations: The Federal rules restrict any use of the information to criminally investigate or prosecute any alcohol or drug abuse patient.[facility] Encounter Details Date Type Department Care Team (Late st Contact Info) Description 08/12/2023 Patient [facility] HB[facility] [place] [address] Martina Bettencourt RPh At your next appointment, choose [facility] Social History Tobacco Use [...] lower risk 9 01/07/2023 Data from: https://www.neighborhoodatlas.medicine.[facility].edu/. Last address used for calculation [address] [...] on filedocumented in this encounter Care Teams Road Design Draftsperson Relationship Specialty Start Date End Date Geeta Goff DO [address] [place] [address] PCP - General Family Medicine 07/09/23 08/16/23 Anita Sherwood NP [address] [place] [address] PCP - General Family Medicine 08/17/23 documented as of this encounter
--- OUTSIDE RECORDS SUMMARY | 2024-12-27 10:08 | XMS_ITS | Encounter Summary ---
Author Organization [facility] Address [address] [place] [address] Care Team Providers Care Computer Networking Instructor Name Role Phone Hector Dai MD Primary Care Provider [phone] Encounter Details Date Type Department Care Team (Late st Contact Info) Description 12/21/2024 Abstract EUGENIA MAYA [address] [facility] [place] [address] Mara Bain MA Social History Tobacco Use Types Packs/Day Years [...] 01/02/2025 11:10 AM EDT Routine EUGENIA MAYA [address] [place] [address] Gerardo Meredith DO [address] [place] [address] documented as of this encounter Goals Goal Patient Goal Type Associated Problems Recent Progress Patient-Stated? Author Reminders Care Plan OB Reminders No Open Scheduling, Background documented as of this encounter Visit Diagnoses Not on filedocumented in this encounter Additional Health Concerns Active Problems Noted Date Diagnosed Date OB Reminders 12/11/2024 documented as of this encounter Care Teams Computer Networking Instructor Relationship Specialty Start Date End Date Hector Dai MD [address] [place] [address] PCP - General Family Medicine 04/07/24 documented as of this encounter
--- OUTSIDE RECORDS SUMMARY | 2024-12-27 10:08 | XMS_ITS | Encounter Summary ---
Author Organization [employer] Address [id number] [address] [place] [address] Care Team Providers Care Tacking Machine Operator Name Role Phone Hector Dai MD Primary Care Provider [phone] Reason for Visit * Reason Comments Med Refill Encounter Details Date Type Department Care Team (Late st Contact Info) Description 12/13/2023 Refill [facility] - Family Medicine [address] [facility] [place] [address] Anita Sherwood, ECOLOGICAL TECHNICAL OFFICER-PREPARER SAMPLES AND REPAIRS [address] [place] [address] Social History Tobacco Use Types Packs/Day Years [...] Upcoming Encounters Date Type Department Care Team ([facility] Contact Info) Description 12/29/2024 10:00 AM EDT Office Visit Maternal- Medicine at [facility] [address] [place] [address] Andrews Harrison MD [address], [address] [place] [address] Javier Jacobs MD [address], [address] [place] [address] documented as of this encounter Visit Diagnoses Not on filedocumented in this encounter Additional Health Concerns Assessment Noted Time PHQ-9 Depression Total Score: 0 11/23/19 24 4:08 PM EDT documented as of this encounter Care Teams Tacking Machine Operator Relationship Specialty Start Date End Date Hector Dai MD [address] [facility], [place] [address] PCP - General Family Medicine 10/12/24 documented as of this encounter
--- OUTSIDE RECORDS SUMMARY | 2024-12-27 10:08 | XMS_ITS | Encounter Summary ---
Author Organization [facility] Address [facility] [place] [address] Care Team Providers Care Hvac Engineer Name Role Phone Anita Sherwood SUMA Primary Care Provider [phone] Source Comments In the event this information is protected by the Federal Confidentiality of Alcohol and Drug AbusePatient Records regulations: The Federal rules restrict any use of the information to criminally investigate or prosecute any alcohol or drug abuse patient.[facility] Encounter Details Date Type Department Care Team (Late st Contact Info) Description 09/10/2023 Patient Msg [facility] [place] [address] [place] [address] Provider, Rito CHRIS Social History Tobacco Use [...] is lower risk 9 01/07/2023 Data from: https://www.neighborhoodatlas.[facility]/. Last address used for calculation [address] [...] on filedocumented in this encounter Care Teams Hvac Engineer Relationship Specialty Start Date End Date Anita Sherwood NP [address] [place] [address] PCP - General Family Medicine 08/17/23 documented as of this encounter
--- OUTSIDE RECORDS SUMMARY | 2024-12-27 10:08 | XMS_ITS | Encounter Summary ---
Author Organization [facility] Address [address] [place] [address] Care Team Providers Care Website Optimization Strategist Name Role Phone Hector Dai MD Primary Care Provider [phone] Encounter Details Date Type Department Care Team (Late st Contact Info) Description 01/03/2024 Abstract EUGENIA [place]A [facility] [place] [phone] Gerardo Meredith DO [address], [place] [address] Social History Tobacco Use Types Packs/Day Years [...] 01/02/2025 11:10 AM EDT Routine EUGENIA MAYA [facility] [place] [address] Gerardo Meredith, DO [address], [place] [phone] documented as of this encounter Visit Diagnoses Not on filedocumented in this encounter Care Teams Website Optimization Strategist Relationship Specialty Start Date End Date Hector Dai MD [address] [place] [address] PCP - General Family Medicine 04/07/24 documented as of this encounter
--- OUTSIDE RECORDS SUMMARY | 2024-12-27 10:08 | XMS_ITS | Clinical Summary ---
Author Organization [facility] Address [address] [place] [address] Care Team Providers Care Leakage Tester Name Role Phone Hector Dai MD Primary Care Provider [phone] Allergies No known active allergies Medications pantoprazole [...] 025 Active levothyroxine (Synthroid, Levoxyl) 175 MCG tabletIndications: Postoperative hypothyroidism Take 1 tablet (175 mcg) by mouth in the morning. Take before meals. 90 tablet 1 05/09/20 24 Active levothyroxine (Synthroid) 50 MCG tabletIndications: H/O thyroidectomy Take 1 tablet (50 mcg) by mouth in the morning. Take before meals. 30 tablet 11/15/19 25 026 Active promethazine (Phenergan) 12.5 MG tabletIndications: Nausea Take 1 tablet (12.5 mg) by mouth every 4 (four) hours 180 tablet 11/25/19 25 025 Active busPIRone (Buspar) 5 MG tablet Take by mouth in the morning and before bedtime. Unsure of dose . Active liothyronine (Cytomel) 5 MCG tabletIndications: Postoperative hypothyroidism TAKE 1 TABLET BY MOUTH DAILY. 90 tablet 1 12/15/19 25 Active meclizine (Antivert) 25 MG tabletIndications: headache, antepartum ([facility]HS-HCC),Nausea Take 1 tablet (25 mg) by mouth 3 (three) times a day as needed for dizziness for up to 10 days 30 tablet 12/20/19 25 025 Active magnesium oxide (Mag-Ox) 400 MG tabletIndications: headache, antepartum (HHS-HCC) Take 1 tablet (400 mg) by mouth Daily 30 tablet 6 12/20/19 026 Active levothyroxine (Synthroid) 200 MCG tabletIndications: H/O thyroidectomy,Thyr oid disease Take 1 tablet (200 mcg) by mouth in the morning. Take before meals. 30 tablet 12/27/19 026 Active levothyroxine (Synthroid) 75 MCG tabletIndications: H/O thyroidectomy,Thyr oid disease Take 1 tablet (75 mcg) by mouth in the morning. Take before meals. 30 tablet 12/27/19 026 Active minocycline 50 MG capsuleIndications :Acne, unspecified acne type TAKE 1 CAPSULE BY MOUTH IN THE MORNING and ONE CAPSULE BY MOUTH BEFORE bedtime 60 capsule 3 12/13/19 24 025 Discontin ued(Other ) venlafaxine XR (Effexor XR) 37.5 MG 24 hr capsuleIndications :Anxiety, generalized TAKE 1 CAPSULE BY MOUTH DAILY DO NOT CRUSH OR CHEW. 90 capsule 2 02/17/20 24 025 Discontin ued(Other ) metFORMIN (Glucophage) 500 MG tabletIndications: Hormone imbalance,Irregula r periods,Weight gain Take 2 tablets (1,000 mg) by mouth in the morning. Take with meals. 60 tablet 11 03/07/20 24 025 Discontin ued(Other ) phentermine (Adipex-P) 37.5 MG tabletIndications: Encounter for weight management Take 1 tablet (37.5 mg) by mouth in the morning. Take before meals. 30 tablet 04/10/20 24 025 Discontin ued(Other ) liothyronine (Cytomel) 5 MCG tabletIndications: Postoperative hypothyroidism Take 1 tablet (5 mcg) by mouth Daily 90 tablet 1 05/09/20 24 025 Discontin ued(Other ) Encounters Date Type Department Care Team Description 12/26/2024 [place] [address] LeonardTabitha lunaVALERIA 12/26/2024 Abstract [facility] [place] [address] Gerardo Meredith, 12/25/2024 Abstract [facility] OBALICE [address] [facility] [place] [phone] Gerardo Meredith, DO 12/21/2024 Abstract [facility]A [address] [facility] [place] [address] Mara Bain MA 12/19/2024 1:00 PM ED[place] [phone] Gerardo Meredith, First trimester ([facility]); 9 weeks gestation of ([facility]); Encounter to discuss test results; headache, antepartum ([facility]); Nausea 12/19/2024 [place] [address] Gerardo Meredith, 12/18/2024 Abstract [facility] [place] [address] Gerardo Meredith, 12/18/2024 Travel 12/18/2024 [place] [address] Mara Bain MA 12/16/2024 Clinisync Result Encounter NOMS External Department Unsolicited Gerardo Meredith, 12/14/2024 Refill [facility] [place] [facility] [address] [place] [address] Loretta Winkler MD Postoperative hypothyroidism 12/07/2024 2:30 PM ED[place] [address] [place]: [id number] 12/06/2024 Travel 11/30/2024 2:30 PM EDT Ancillary Procedure [facility] ROWLEYGYN [address] [facility] [place] [address] with abdominal cramping of lower quadrant, antepartum ([facility]) 11/24/2024 [place] [address] Karolyn Fulton MA 11/24/2024 Travel 11/22/2024 1:30 PM [place] [address] Nichelle Sanchez PA Nausea (Primary Dx); Cramping affecting , antepartum ([facility]); Missed menses; with abdominal cramping of lower quadrant, antepartum ([facility]) 11/22/2024 Bamboo flowsheet [facility] STONEN [address] [facility] [place] [address] Nichelle Sanchez PA 11/18/2024 Clinisync Result Encounter NOMS External Department Unsolicited Gerardo Meredith, DO 11/16/2024 Travel 11/15/2024 Telephone [facility] MAYA [address] [place] [address] Gerardo Meredith, DO 11/14/2024 Telephone [facility]A [address] [facility] [place] [address] Gerardo Meredith, DO 11/13/2024 Clinisync Result Encounter NOMS External Department Unsolicited Gerardo Meredith DO 11/13/2024 Telephone [facility] MAYA [address] [place] [address] Gerardo Meredith DO from Last 3 [...] Pressure 118/78 12/19/2024 1:18 PM EDT Pulse 84 05/09/2024 9:23 AM EST Temperature - - Respiratory Rate 18 05/09/2024 9:23 AM EST Oxygen Saturation - - Inhaled Oxygen Concentration - - Weight 105 kg (232 lb 1.9 oz) 12/19/2024 1:18 PM EDT Height 160 cm (5' 3 ) 05/09/2024 9:23 AM EST Body Mass Index 41.12 05/09/2024 9:23 AM EST Plan of Treatment Upcoming Encounters Date Type Department Care Team (Late st Contact Info) Description 01/02/2025 11:10 AM EDT Routine [facility] An[facility] MAYA [address] [place] [address] Gerardo Meredith DO [address] [place], [place] [address] Health Maintenance Due Date Last Done Comments Influenza Vaccine (#1) 2025 4, 02/22/2023, 03/14/2020, Additional history exists Goals Goal Patient Goal Type Associated Problems Recent Progress Patient-Stated? Author Reminders Care Plan OB Reminders No Open Scheduling, Background Procedures Procedure Name Priority Date/Time Associated Diagnosis Comments POCT URINALYSIS DIPSTICK Routine 12/19/2024 1:29 PM EDT First trimester ([facility]) 9 weeks gestation of ([facility]) HBSAG SCREEN Routine 12/16/2024 10:46 AM EDT [...] Last 3 Months Results * (ABNORMAL) POCT urinalysis dipstick manually resulted (12/19/2024 1:29 PM EDT) Only the most recent of3 resultswithin the time period is included. Color, [...] - Positive Urine 12/19/2024 1:29 PM EDT us Gerardo Viri DO POINT OF CARE TEST ENTER/EDIT OR DERABLES Final Result * BOX TEST (12/16/2024 10:46 AM EDT) [facility] BOX TEST SENT OUT [facility] BOX1 [facility] BOX2 01/03/2025 [facility] 12/16/2024 10:4 6 AM EDT 12/16/2024 10:51 AM EDT Narrative [facility] - 12/16/2024 10:53 AM EDT Gerardo Viri DO LAB BLOOD ORDERABLES Final Resul t Performing Organization Address City/[facility] Co de Phone Number [facility] * HBSAG SCREEN (12/16/2024 10:46 AM EDT) [facility] HBSAG SCREEN Negative Negative [facility] Comment: Performed at: [address] [id number] Testboard Operator: Sukhjinder Wong PhD, Phone: [phone] 12/16/2024 10:4 6 AM EDT 12/16/2024 10:51 AM EDT Narrative [facility] - 12/17/2024 11:09 AM EDT Gerardo Viri DO LAB BLOOD ORDERABLES Final Resul t Performing Organization Address City/[facility] Co de Phone Number [facility] * RAPID PLASMA REAGIN, QUANT (12/16/2024 10:46 AM EDT) [facility] RAPID PLASMA REAGIN, QUANT Non Reactive NonRea<1: 1 titer [facility] Comment: Please Note: This test does not meet current guidelines for screening and diagnosis of syphilis. This test is intended for following treatment response in patients being treated for syphilis infection. To screen for syphilis infection, a reflex cascade that includes both RPR and a treponema-specific assay should be utilized, such as Treponema pallidum (Syphilis) Screening [place] (981476) or Rapid Plasma Reagin (RPR) Test With Reflex to Quantitative RPR and Confirmatory Treponema pallidum Antibodies (180675). Performed at: [address] [id number] Testboard Operator: Sukhjinder Wong PhD, Phone: [phone] 12/16/2024 10:4 6 AM EDT 12/16/2024 10:51 AM EDT Narrative [facility] - 12/17/2024 11:09 AM EDT Gerardo Viri DO LAB BLOOD ORDERABLES Final Resul t Performing Organization Address [facility] Co de Phone Number [facility] * HIV AB/P24 AG WITH REFLEX (12/16/2024 10:46 AM EDT) Pathologist [facility] HIV AB/P24 AG SCREEN Non Reactive Non Reactive [facility] Comment: HIV-1/HIV-2 antibodies and HIV-1 p24 antigen were NOT detected. There is no laboratory evidence of HIV infection. HIV Negative Performed at: [address] [id number] Testboard Operator: Sukhjinder Wong PhD, Phone: [phone] 12/16/2024 10:4 6 AM EDT 12/16/2024 10:51 AM EDT Narrative [facility] - 12/17/2024 9:08 AM EDT Liquavistao DO LAB BLOOD ORDERABLES Final Resul t Performing Organization Address [facility]/[place] de Phone Number [facility] * HCV ANTIBODY RFX TO QUANT [...] ORDERABLES Final Resul t Performing Organization Address City/[facility]/ZIP Co de Phone Number [facility] * MLR HEMOGLOBIN A1C (12/16/2024 10:46 AM EDT) GLYCOHEMOGLOBIN A1C 4.9 4.5 - 6.2 % [facility] Comment: ADA RECOMMENDED LIMIT 4.0 - 6.0 ADA THERAPEUTIC TARGET < 7.0 ACTION SUGGESTED > 7.0 ESTIMATED AVERAGE GLUCOSE 94 mg/dL [facility] 12/16/2024 10:4 6 AM EDT 12/16/2024 10:51 AM EDT Narrative [facility] - 12/16/2024 11:19 AM EDT Gerardo Viri DO CL[facility]NC Final Result Performing Organization Address [facility] Co de Phone Number [facility] * ALL TYPE AND SCREEN (12/16/2024 10:46 AM EDT) Pathologist [facility] BLOOD TYPE A Positive [facility] ANTIBODY SCREEN NEGATIVE [facility] 12/16/2024 10:4 6 AM EDT 12/16/2024 10:51 AM EDT Narrative CL[facility] - 12/16/2024 12:20 PM EDT [facility] , Gerardo Vrii DO CLINISYNC Final Result Performing Organization Address [facility] Co de Phone Number [facility] * (ABNORMAL) ALL THYROID STIM HORMONE (12/16/2024 10:46 AM EDT) Only the most recent of2 resultswithin the time period is included. THYROID STIMULATING HORMONE 50.067(H) 0.358 - 3.740 uIU/mL [facility] 12/16/2024 10:4 6 AM EDT 12/16/2024 10:51 AM EDT Narrative [facility] - 12/16/2024 11:38 AM EDT Gerardo Viri DO CLINISYNC Final Result [facility] * ALL RUBELLA IGG AB (12/16/2024 10:46 AM EDT) [facility] RUBELLA ANTIBODIES, IGG 4.26 Immune >0.99 index [facility] Comment: Non-immune <0.90 Equivocal 0.90 - 0.99 Immune >0.99 Performed at: - [address] [id number] Testboard Operator: Sukhjinder Wong PhD, Phone: [phone] 12/16/2024 10:4 6 AM EDT 12/16/2024 10:51 AM EDT Narrative CLINISYNC - 12/17/2024 8:08 AM EDT us Gerardo Viri DO CLIN[facility]NC Final Result Performing Organization Address City/[facility]/ZIP Co de Phone Number [facility] * ALL CBC WITH AUTO DIFF (12/16/2024 10:46 AM EDT) [facility] WBC 6.3 4.0 - 11.0 10 3/uL [facility] TB RBC 4.68 4.20 - 5.40 10 6/uL [facility] TB HGB 13.4 12.0 - 16.0 g/dL TB TB HCT 39.7 36.0 - 48.0 % TB TB MCV 84.8 81.0 - 99.0 fL TB TB MCH 28.6 26.7 - 34.0 pg TB TB MCHC 33.8 29.9 - 35.2 g/dL TB TB RDW 13.3 11.0 - 15.0 % TB TB PLT 238 150 - 450 10 3/uL TB TB MPV 11.2 9.5 - 13.5 fL TB NEUTROPHILS PERCENT AUTO 69.1 43.0 - 75.0 % TB LYMPHOCYTES PERCENT AUTO 23.6 20.5 - 60.0 % TB MONOCYTES PERCENT AUTO 4.9 1.7 - 12.0 % TB [facility]H EO % 1.4 0.9 - 7.0 % TB BASOPHILS PERCENT AUTO 0.8 0.2 - 2.0 [...] DO CL[facility] Final Result Performing Organization Address City/State/[facility] Co de Phone Number [facility] * TB DRUG SCREEN RAPID (URINE) [...] Gerardo Viri DO [facility] Final Result [facility] * (ABNORMAL) POCT , urine manually resulted [...] BY: Nathen Brown MD us Marcia Naranjo EMERGENCY PHYSICIAN IMG OB US PROCEDURES Final Re sult [...] - 11/18/2024 11:15 AM EDT us Gerardo Meredith DO [facility] Final Result [facility] TB from Last 3 Months Additional Health Concerns Active Problems Noted Date Diagnosed Date OB Reminders 12/11/2024 Insurance [facility] Member Subscriber Plan / Payer (Ef fective 2017-Present) Name:Sheyla [place] Relation to Subscriber:Child Name:KRIS WHITING Date of :1978 Address: [address] [place] [address] Payer ID:Not on file Type:Not on file Address: [address] [place] [phone] [facility] Member Subscriber Plan / Payer ( fective 2017-Present) Name:Sheyla Le[place] Relation to Subscriber:Child Name:MIRNA WHITING Date of :1975 Address: [address] [place] [id number] Payer ID:Not on file Type:Not on file Address: [place] [phone] [place]ICA[place] Care Teams Leakage Tester Relationship Specialty Start Date End Date Hector Dai MD [address] [place] [phone] PCP - General Family Medicine 04/07/24
--- OUTSIDE RECORDS SUMMARY | 2024-12-27 10:08 | XMS_ITS | Encounter Summary ---
Author Organization [facility] Address [address] [place] [address] Care Team Providers Care Office Coordinator Name Role Phone Hector Dai MD Primary Care Provider [phone] Encounter Details Date Type Department Care Team (Late st Contact Info) Description 11/01/2023 Clinisync Result Encounter NOMS External Department Unsolicited Adolfo Meredith DO [address] [place] [address] Social History Tobacco Use Types Packs/Day Years [...] AM EDT Routine [facility] OBALICE [address] [place] [phone] Adolfo Meredith DO [address] [place] [address] documented as of this encounter Procedures Procedure Name Priority Date/Time Associated Diagnosis Comments US PELVIS W/ TRANSVAGINAL 11/01/2023 6:49 AM EDT documented in this encounter Results * US PELVIS W/ TRANSVAGINAL (11/01/2023 6:49 AM EDT) Anatomical Region Laterality Modality Other 11/01/2023 6:49 AM EDT Narrative 11/01/2023 6:52 [place] [address] Ultrasound Report Signed Patient: SHEYLA LEA MR#: [id number] : 2005 Acct:[id number] Age/Sex: 18 / F ADM Date: 10/29/23 Loc: US Attending Dr: Adolfo Meredith D.O. Ordering Physician: Adolfo Meredith D.O. Date of Service: 10/29/23 Procedure(s): US pelvis w/ transvaginal Accession Number(s): [id number] cc: Adolfo Meredith D.O.; MAXWELL [place] [id number] Patient Name: SHEYLA LEA MRN: [id number] date: 2005 Sex: F Assigned Patient Location: Current Patient Location: Accession/Order Number: [id number] Exam Date: 10/29/2023 09:03 Report Date: 11/01/2023 [...] Posadas M.D. Signed By: 11/01/2352 DD/ TD/TT: Gallery Manager: Procedure Note Radiology, Radiologist, MD - 11/01/2023 [place] [address] Ultrasound Report Signed Patient: SHEYLA LEA IMMR#: [id number] : 2005Acct:[id number] Age/Sex: 18 / FADM Date: 10/29/23 Loc: US Attending Dr: Adolfo Meredith D.O. Ordering Physician: Adolfo Meredith D.O. Date of Service: 10/29/23 Procedure(s): US pelvis w/ transvaginal Accession Number(s): [id number] cc: Adolfo Meredith D.O.; MAXWELL ELMORE [place] [phone] Patient Name: SHEYLA LEA MRN: [id number] date: 2005 Sex: F Assigned Patient Location: US Current Patient Location: Accession/Order Number: [id number] Exam Date: 10/29/2023 09:03 Report Date: 11/01/2023 [...] M.D. Signed By:11/01/23 0652 DD/ 0649 TD/TT: Gallery Manager: us [facility] DO [facility] IMAGING Final Result documented in this encounter Visit Diagnoses Not on filedocumented in this encounter Care Teams Office Coordinator Relationship Specialty Start Date End Date Hector Dai MD [address] [place] [address] PCP - General Family Medicine 04/07/24 documented as of this encounter
--- OUTSIDE RECORDS SUMMARY | 2024-12-27 10:08 | XMS_ITS | Encounter Summary ---
Author Organization [facility] Address [address] [place] [address] Care Team Providers Care Tread Tuber Machine Operator Name Role Phone Hector Dai MD Primary Care Provider [phone] Encounter Details Date Type Department Care Team (Late st Contact Info) Description 12/26/2024 Abstract EUGENIA MAYA [address] [place] [address] Gerardo Meredith DO [address], [place] [address] Social History Tobacco Use Types Packs/Day Years [...] EDT Routine [facility] [address] [place] [address] Gerardo Meredith DO [address] [place] [address] documented as of this encounter Goals Goal Patient Goal Type Associated Problems Recent Progress Patient-Stated? Author Reminders Care Plan OB Reminders No Open Scheduling, Background documented as of this encounter Visit Diagnoses Not on filedocumented in this encounter Additional Health Concerns Active Problems Noted Date Diagnosed Date OB Reminders 12/11/2024 documented as of this encounter Care Teams Tread Tuber Machine Operator Relationship Specialty Start Date End Date Hector Dai MD [address] [place] [address] PCP - General Family Medicine 04/07/24 documented as of this encounter
--- OUTSIDE RECORDS SUMMARY | 2024-12-27 10:08 | XMS_ITS | Encounter Summary ---
Author Organization [facility] Address [id number] [address] [place] [address] Care Team Providers Care Engraver Ornamental Design Name Role Phone Hector Dai MD Primary Care Provider [phone] Encounter Details Date Type Department Care Team (Late st Contact Info) Description 11/02/2023 Orders Only [facility] Internal Medicine - Family Medicine [address] [place] [address] External, Scanning Provider Social History [...] Upcoming Encounters Date Type Department Care Team ([facility] st Contact Info) Description 12/29/2024 10:00 AM EDT Office Visit Maternal- Medicine at [facility] [address] [place] [address] Andrews Harrison MD [address], [address] [place] [address] Javier Jacobs MD [address], [address] [place] [address] documented as of this encounter Procedures Procedure [...] documented as of this encounter Care Teams Engraver Ornamental Design Relationship Specialty Start Date End Date Hector Dai MD [address] [facility] [place] [address] PCP - General Family Medicine 10/12/24 documented as of this encounter
--- OUTSIDE RECORDS SUMMARY | 2024-12-27 10:08 | XMS_ITS | Encounter Summary ---
Author Organization [facility] Address [address] [place] [address] Care Team Providers Care Press Setup Operator Name Role Phone Hector Dai MD Primary Care Provider [phone] Encounter Details Date Type Department Care Team (Late st Contact Info) Description 12/19/2024 Bamboo flowsheet [facility] MAYA [address] [place] [address] Gerardo Meredith DO [address] [place], [facility] Social History Tobacco Use Types Packs/Day [...] AM EDT Routine [facility] MAYA [address] [place] [address] Gerrado Meredith DO [address] [place], [facility]11 documented as of this encounter Goals Goal Patient Goal Type Associated Problems Recent Progress Patient-Stated? Author Reminders Care Plan OB Reminders No Open Scheduling, Background documented as of this encounter Visit Diagnoses Not on filedocumented in this encounter Additional Health Concerns Active Problems Noted Date Diagnosed Date OB Reminders 12/11/2024 documented as of this encounter Care Teams Press Setup Operator Relationship Specialty Start Date End Date Hector Dai MD [address] [place] [address] PCP - General Family Medicine 04/07/24 documented as of this encounter
--- OUTSIDE RECORDS SUMMARY | 2024-12-27 10:08 | XMS_ITS | Encounter Summary ---
Author Organization [facility] Address [id number] [address] [place] [address] Care Team Providers Care Brake Lining Curer Name Role Phone Hector Dai MD Primary Care Provider [phone] Encounter Details Date Type Department Care Team (Late st Contact Info) Description 02/03/2024 [facility] - [facility] Medicine [address] [place] [phone] Ref Prov, [place] [address] Social History Tobacco Use Types Packs/Day Years [...] AM EDT Office Visit Maternal- Medicine at [facility] [address] [place] [address] Andrews Harrison MD [address], [address] [place] [address] Javier Jacobs MD [address], [address] [place] [address] documented as of this encounter Procedures Procedure [...] documented as of this encounter Care Teams Brake Lining Curer Relationship Specialty Start Date End Date Hector Dai MD [address] [facility], [place] [address] PCP - General Family Medicine 10/12/24 documented as of this encounter
--- OUTSIDE RECORDS SUMMARY | 2024-12-27 10:08 | XMS_ITS | Encounter Summary ---
Author Organization [facility] Address [address] [place] [address] Care Team Providers Care Handle And Vent Machine Operator Name Role Phone Hector Dai MD Primary Care Provider [phone] Encounter Details Date Type Department Care Team (Late st Contact Info) Description 12/31/2023 Clinisync Result Encounter [facility] External Department Unsolicited Adolfo Meredith DO [address] [place] [address] Social History Tobacco Use Types Packs/Day Years [...] AM EDT Routine [facility] Anoop MAYA [address] [place] [address] Adolfo Meredith DO [address] [place] [address] documented as of this encounter Procedures Procedure Name Priority Date/Time Associated Diagnosis Comments ECG 12-LEAD 12/31/2023 10:35 AM EDT documented in this encounter Results * ECG 12-LEAD (12/31/2023 10:35 AM EDT) Anatomical Region Laterality Modality Other 12/31/2023 10:3 5 AM EDT Narrative 12/31/2023 6:35 [place] [address] Electrocardiograph Report Signed Patient: SACHA LEA IM MR#: [id number] : 2005 Acct:[id number] Age/Sex: 18 / F ADM Date: 12/31/23 Loc: PST Attending Dr: Adolfo Meredith D.O. Ordering Physician: Adolfo Meredith D.O. Date of Service: 12/31/23 Procedure(s): ECG 12 lead Accession Number(s): [id number] cc: [facility] Test Date: 2023-12-31 Pat Name: SACHA LEA Department: Room: - Gender: Female Quality Assurance: : 2005 Requested By: ADOLFO MEREDITH Order Number: [id number] Reading MD: JUSTEN JONES Measurements Intervals Souris Rate: 78 P: 21 GA: 135 QRS: 66 QRSD: 83 T: 45 QT: 333 QTc: 380 Interpretive Statements SINUS RHYTHM No previous ECG available for comparison Electronically Signed On 12-31-2023 18:35:33 EDT by JUSTEN JONES Dictated By: Justen Jones D.O. Signed By: 12/31/23 1835 DD/ 1035 TD/TT: Marketing Sales Representative: Procedure Note Radiology, Radiologist, MD - 12/31/2023 The [place] [id number] Electrocardiograph Report Signed Patient: SACHA LEA IMMR#: [id number] : 2005Acct:[id number] Age/Sex: 18 / FADM Date: 12/31/23 Loc: PST Attending Dr: Adolfo Meredith D.O. Ordering Physician: Adolfo Meredith D.O. Date of Service: 12/31/23 Procedure(s): ECG 12 lead Accession Number(s): [id number] cc: [facility] Test Date: 2023-12-31 Pat Name: SACHA LEA Department: Room: - Gender: Female Quality Assurance: : 2005 Requested By: ADOLFO MEREDITH Order Number: [id number] Reading MD: JUSTEN JONES Measurements Intervals Souris Rate: 78 P: 21 GA: 135 QRS: 66 QRSD: 83 T: 45 QT: 333 QTc: 380 Interpretive Statements SINUS RHYTHM No previous ECG available for comparison Electronically Signed On 12-31-2023 18:35:33 EDT by JUSTEN JONES Dictated By: Justen Jones D.O. Signed By:12/31/23 1835 DD/ 1035 TD/TT: Marketing Sales Representative: us Adolfo Meredith DO [facility] Final Result documented in this encounter Visit Diagnoses Not on filedocumented in this encounter Care Teams Handle And Vent Machine Operator Relationship Specialty Start Date End Date Hector Dai MD [address] [place] [address] PCP - General Family Medicine 04/07/24 documented as of this encounter
--- OUTSIDE RECORDS SUMMARY | 2024-12-27 10:08 | XMS_ITS | Encounter Summary ---
Author Organization [facility] Address [address] [place] [address] Care Team Providers Care Carbon Brusher Assembler Name Role Phone Hector Dai MD Primary Care Provider [phone] Encounter Details Date Type Department Care Team (Late st Contact Info) Description 01/14/2024 Abstract EUEGNIA MAYA [facility] [place] [address] Gerardo Meredith DO [address] [place], [place] [address] Social History Tobacco Use Types Packs/Day Years [...] 01/02/2025 11:10 AM EDT Routine EUGENIA MAYA [facility] [place] [address] Gerardo Meredith, DO [address] [place], [place] [id number] documented as of this encounter Visit Diagnoses Not on filedocumented in this encounter Care Teams Carbon Brusher Assembler Relationship Specialty Start Date End Date Hector Dai MD [address] [place] [address] PCP - General Family Medicine 04/07/24 documented as of this encounter
--- OUTSIDE RECORDS SUMMARY | 2024-12-27 10:08 | XMS_ITS | Encounter Summary ---
Author Organization [facility] Address [address] [place] [address] Care Team Providers Care Financial Services Technician Name Role Phone Hector Dai MD Primary Care Provider [phone] Encounter Details Date Type Department Care Team (Late st Contact Info) Description 12/18/2024 Telephone [facility] [address] [place] [address] [place] [address] Mara Bain MA Social History Tobacco Use [...] Miscellaneous Notes * Telephone Encounter - Tabitha Rice, METAL OFF BEARER - 12/25/2024 11:15 AM EDT Hi, my name is Sheyla Lea. Date of O2/O9/O5 I was just calling I was supposed to be returning to work on , but I was just calling to see if there is any way I could get a return to work note for tomorrow. I did get the Zofran pump and I am Feeling a lot better. And then he also wanted me to he sent a referral for maternal medicine and told me to call if I have not heard anything from them and I still have not someone. Could please give me a call back my phone number [phone], thank you. Called pt back and told her that we could most definitely get her a return to work note and that I would resend referral to MFM. PVU * Telephone Encounter - Bella Strickland LPN - 12/19/2024 2:03 PM EDT Please refer to M for thyroid disease during . Please also refer to optum for zofran pump * Telephone Encounter - Mara Bain MA - 12/18/2024 11:44 AM EDT Pt called regarding elevated TSH level. Advised pt that we would discuss results when he was back in office tomorrow. Also advised pt we would send referral for MFM, PVU. Pt did note that she's been having pretty intense nausea and vomiting. Pt states she has tried Zofran, promethazine and various home remedies with no success. Pt currently at ER due to [place]. States she takes her meds daily but unsu re if she's really keeping any of them down. documented in this encounter Plan of Treatment Upcoming Encounters Date Type Department Care Team (Late st Contact Info) Description 01/02/2025 11:10 AM EDT Routine [facility] [address] [place] [address] Gerardo Meredith DO [address] [place], [place] [address] documented as of this encounter Goals Goal Patient Goal Type Associated Problems Recent Progress Patient-Stated? Author Reminders Care Plan OB Reminders No Open Scheduling, Background documented as of this encounter Visit Diagnoses Not on filedocumented in this encounter Additional Health Concerns Active Problems Noted Date Diagnosed Date OB Reminders 12/11/2024 documented as of this encounter Care Teams Financial Services Technician Relationship Specialty Start Date End Date Hector Dai MD [address] [place] [address] PCP - General Family Medicine 04/07/24 documented as of this encounter
--- OUTSIDE RECORDS SUMMARY | 2024-12-27 10:08 | XMS_ITS | Encounter Summary ---
Author Organization [employer] tem Address [facility]-[id number] [address] [place] [address] Care Team Providers Care Paying Teller Name Role Phone Hector Dai MD Primary Care Provider [phone] Encounter Details Date Type Department Care Team (Late st Contact Info) Description 02/02/2024 [facility]phone [facility] - Family Medicine [address] [place] [address] Angel, Barbara, CRIPPLE CUTTER Social History Tobacco Use Types Packs/Day Years [...] AM EDT Office Visit Maternal- Medicine at [facility] [address] [place] [address] Andrews Harrison MD [address], [address] [place] [address] Javier Jacobs MD [address], [address] [place] [address] documented as of this encounter Visit Diagnoses Not on filedocumented in this encounter Additional Health Concerns Assessment Noted Time PHQ-9 Depression Total Score: 0 11/23/19 24 4:08 PM EDT documented as of this encounter Care Teams Paying Teller Relationship Specialty Start Date End Date Hector Dai MD [address] [place] [address] PCP - General Family Medicine 10/12/24 documented as of this encounter
--- OUTSIDE RECORDS SUMMARY | 2024-12-27 10:08 | XMS_ITS | Encounter Summary ---
Author Organization [facility] Address [facility] [place] [address] Care Team Providers Care Diver Pumper Name Role Phone Anita Sherwood SUMA Primary Care Provider [phone] Source Comments In the event this information is protected by the Federal Confidentiality of Alcohol and Drug AbusePatient Records regulations: The Federal rules restrict any use of the information to criminally investigate or prosecute any alcohol or drug abuse patient.[facility] Encounter Details Date Type Department Care Team (Late st Contact Info) Description 09/10/2023 Patient Msg Head and Neck [place] [address] [place] [address] Provider, Rito CHRIS Social History Tobacco Use [...] is lower risk 9 01/07/2023 Data from: https://www.neighborhoodatlas.[facility]/. Last address used for calculation [address] [...] on filedocumented in this encounter Care Teams Diver Pumper Relationship Specialty Start Date End Date Anita Sherwood NP [address] [place] [address] PCP - General Family Medicine 08/17/23 documented as of this encounter
--- OUTSIDE RECORDS SUMMARY | 2024-12-27 10:09 | XMS_ITS | Encounter Summary ---
Author Organization [facility] Address [address] [place] [address] Care Team Providers Care Supervisor Brake Repair Name Role Phone Hector Dai MD Primary Care Provider [phone] Reason for Visit * Reason Comments Med Refill Encounter Details Date Type Department Care Team (Late st Contact Info) Description 12/14/2024 Refill [facility] [address] [place] [address] Loretta Winkler MD [address] [place] [address] Postoperative hypothyroidism Social History Tobacco Use Types [...] AM EDT Routine [facility] [address] [facility] [address] Gerardo Meredith DO [address] [facility] [place] [address] documented as of this encounter Goals Goal Patient Goal Type Associated Problems Recent Progress Patient-Stated? Author Reminders Care Plan OB Reminders No Open Scheduling, Background documented as of this encounter Visit Diagnoses Diagnosis Postoperative hypothyroidism Postsurgical hypothyroidism documented in this encounter Additional Health Concerns Active Problems Noted Date Diagnosed Date OB Reminders 12/11/2024 documented as of this encounter Care Teams Supervisor Brake Repair Relationship Specialty Start Date End Date Hector Dai MD [address] [facility] [address] PCP - General Family Medicine 04/07/24 documented as of this encounter
--- OUTSIDE RECORDS SUMMARY | 2024-12-27 10:09 | XMS_ITS | Encounter Summary ---
Author Organization [facility] [employer] [facility] Address [facility]-[id number] [address] [place] [address] Care Team Providers Care Top Spotter Name Role Phone Hector Dai MD Primary Care Provider [phone] Encounter Details Date Type Department Care Team (Late st Contact Info) Description 03/03/2024 Orders Only [facility] Internal Medicine - Family Medicine [address] [place] [address] Anita Sherwood, SALES SUPPORT SPECIALIST-SCREENING TECHNICIAN [address] [place] [address] Social History Tobacco Use Types Packs/Day Years [...] Upcoming Encounters Date Type Department Care Team ([facility] Contact Info) Description 12/29/2024 10:00 AM EDT Office Visit Maternal- Medicine at [facility] [address] [place] [address] Andrews Hrarison MD [address], [address] [place] [address] Javier Jacobs MD [address], [address] [place] [address] documented as of this encounter Visit Diagnoses Not on filedocumented in this encounter Additional Health Concerns Assessment Noted Time PHQ-9 Depression Total Score: 0 11/23/19 24 4:08 PM EDT documented as of this encounter Care Teams Top Spotter Relationship Specialty Start Date End Date Hector Dai MD [address] [facility], [place] [address] PCP - General Family Medicine 10/12/24 documented as of this encounter
--- OUTSIDE RECORDS SUMMARY | 2024-12-27 10:09 | XMS_ITS | Encounter Summary ---
Author Organization [employer] tem Address [facility]-[id number] [address] [place] [address] Care Team Providers Care Proposition Player Name Role Phone Hector Dai MD Primary Care Provider [phone] Encounter Details Date Type Department Care Team (Late st Contact Info) Description 03/21/2024 [facility]phone [facility] Internal [facility] - Family Medicine [address] [place] [address] Angel, Barbara, CORK MIXER Social History Tobacco Use Types Packs/Day Years [...] know if you can send orders to [facility] or can we draw her thyroid [...] AM EDT Office Visit Maternal- Medicine at [facility] [address] [place] [address] Andrews Harrison MD [address], [address] [place] [address] Javier Jacobs MD [address], [address] [place] [address] documented as of this encounter Visit Diagnoses Not on filedocumented in this encounter Additional Health Concerns Assessment Noted Time PHQ-9 Depression Total Score: 0 11/23/19 24 4:08 PM EDT documented as of this encounter Care Teams Proposition Player Relationship Specialty Start Date End Date Hector Dai MD [address] [place] [address] PCP - General Family Medicine 10/12/24 documented as of this encounter
--- OUTSIDE RECORDS SUMMARY | 2024-12-27 10:09 | XMS_ITS | Encounter Summary ---
Author Organization [employer] Address [facility]-[id number] [address] [place] [address] Care Team Providers Care Lumber Stacker Name Role Phone Hector Dai MD Primary Care Provider [phone] Encounter Details Date Type Department Care Team (Late st Contact Info) Description 02/21/2024 Telephone [facility] - Family Medicine [address] [place] [address] Asad Sam CMA Social History [...] AM EDT Office Visit Maternal- Medicine at [facility] [address] [place] [address] Andrews Harrison MD [address] [place] [address] Javier Jacobs MD [address], [address] [place] [address] documented as of this encounter Visit Diagnoses Not on filedocumented in this encounter Additional Health Concerns Assessment Noted Time PHQ-9 Depression Total Score: 0 11/23/19 24 4:08 PM EDT documented as of this encounter Care Teams Lumber Stacker Relationship Specialty Start Date End Date Hector Dai MD [address] [facility], [place] [address] PCP - General Family Medicine 10/12/24 documented as of this encounter
--- OUTSIDE RECORDS SUMMARY | 2024-12-27 10:09 | XMS_ITS | Encounter Summary ---
Author Organization [employer] tem Address [facility] [id number] [address] [place] [address] Care Team Providers Care Jewelry Casting Model Maker Name Role Phone Hector Dai MD Primary Care Provider [phone] Encounter Details Date Type Department Care Team (Late st Contact Info) Description 02/04/2024 Telephone [facility] Internal [facility] - Family Medicine [address] [place] [address] Susy Lee CMA Social History [...] AM EDT Office Visit Maternal- Medicine at [facility] [address] [place] [address] Andrews Harrison MD [address], [address] [place] [address] Javier Jacobs MD [address], [address] [place] [address] documented as of this encounter Visit Diagnoses Not on filedocumented in this encounter Additional Health Concerns Assessment Noted Time PHQ-9 Depression Total Score: 0 11/23/19 24 4:08 PM EDT documented as of this encounter Care Teams Jewelry Casting Model Maker Relationship Specialty Start Date End Date Hector Dai MD [address] [place] [address] PCP - General Family Medicine 10/12/24 documented as of this encounter
--- OUTSIDE RECORDS SUMMARY | 2024-12-27 10:09 | XMS_ITS | Clinical Summary ---
Author Organization [facility] Address [address] [place] [address] Care Team Providers Care Tip Out Worker Name Role Phone Anita Sherwood NP Primary [...] is lower risk 9 05/12/2024 Data from: https://www.neighborhoodatlas.medicine.[facility].edu/. Last address used for calculation [address] 05/12/2024 Comments No Sex and [...] Name:MIRNA SAMUEL Date of :1976 (Home) Address: [address] [place] [address] Payer ID:[id number] (NAIC) Type:PPO Address: [facility] [id number] [place] [id number] BLUE ACCESS PPO BLUE CARD PPO OOS BLUE ACCESS PPO Care Teams Tip Out Worker Relationship Specialty Start Date End Date Anita Sherwood NP [address] [place] [address] PCP - General Family Medicine 08/17/23
--- OUTSIDE RECORDS SUMMARY | 2024-12-27 10:29 | XMS_ITS | CCD ---
Author Organization [facility] Care Team Providers Care Blade Changer Name Role Phone Damian Jas Hewitt Primary Care Provider [phone] MANA AGUILAR Referring Unavailable JAS SALGADO Primary [...] Unavailable Africa Del Cid Attending Unavailable KEVIN STOKES A Primary Care Unavailable KATHLEEN LUNDBERG Admitting Unavailable KATHLEEN LUNDBERG Attending Unavailable KEVIN SOTKES A Primary Care Unavailable KEVIN STOKES A Primary Care Unavailable Spasic PA, Levy Admitting Unavailabl e Spasic PA, Levy Attending Unavailabl e KEVIN STOKES A Primary Care Unavailable Spasic PA, Levy Admitting Unavailabl e Spasic PA, Levy Attending Unavailabl DO Kevin Price Primary Care Provider DO Braxton Toussaint Attending Provider [phone] Schwerer DO, Aime E Primary Care Provider [phone] Catarina WET INSPECTOR OPTICAL GLASS, [facility] Primary Care Provider Catarina WET INSPECTOR [employer]ICAL GLASS, [facility] Primary Care Provider CATARINA, ANITA Primary Care [...] Care Unavailable PRENDES, LATASHA L Admitting Unavailable Unavailable Primary Care Provider Unavailabl e [...] Unavailable Regino Santoro MD Primary Care Provider [phone] Catarina FACTORY CLERK-BLANKMAKER, Anita L Primary Care Provider NIKI HOLLIS Admitting Unavailable NIKI HOLLIS Attending Unavailable CATARINA, ANITA L Primary Care Unavailable YUHAS, NIKI L Attending Unavailable NIKI HOLLIS Referring Unavailable ANITA ELMORE Primary Care Unavailable REGINO SANTORO Primary Care Unavailable Regino Santoro MD Primary Care Provider [phone] Regino Santoro MD Primary Care Provider [phone] Viri, Gerardo Admitting Unavailable Viri, Gerardo Attending Unavailable NON STAFF Admitting Unavailable NON STAFF Attending Unavailable Amaya Brooke L Attending Unavailable Anita Elmore Primary Care Unavailable Ly Brooke L Admitting Unavailable LILIANA, NICHELLE Attending Unavailable VIRI, GERARDO Attending Unavailable VIRI, GERARDO Attending Unavailable LILIANA, NICHELLE Attending Unavailable VIRI, GERARDO Attending Unavailable VIRI, GERARDO Attending Unavailable LORETTA WINKLER Attending Unavailable REGINO SANTORO Referring Unavailable Allergies Allergy Classification Reported Allergen(s) Allergy Type Date of Onset Reaction(s) Facility (1 source) No Known Medication Allergies; Translations: [No Known Medication Allergies] Propensity to adverse reactions to drug (disorder) [facility] Repository Medications Current Medications Medication [...] hydrochloride 150 mg extended release oral tablet (20 sources) Aminoketone Start: 03-08-2024 End: 03-08-2025 take [...] Active busPIRone hydrochloride 5 mg oral tablet (5 sources) take 1 tablet by mouth at bedtime [...] (20 sources) Progestin, Estrogen Start: 11-24-19 End: 09-10-20 25 take 1 tablet by mouth once daily [...] by mouth. 09/04/2023 10/29/2023 Discontinued (Therapy completed) liothyronine sodium 0.005 mg oral tablet (10 sources) l-Triiodothyronine Start: 12-14-2024 take 1 tablet by mouth once daily liothyronine (Cytomel) 5 MCG tablet Indications: Postoperative hypothyroidism TAKE 1 TABLET BY MOUTH DAILY. 90 tablet 1 12/14/2024 Active Start: 05-09-2024 End: 12-07-2024 take 1 tablet by mouth once daily liothyronine (Cytomel) 5 MCG tablet Indications: Postoperative hypothyroidism Take 1 tablet (5 mcg) by mouth Daily 90 tablet 1 05/09/2024 12/07/2024 Discontinued (Other) magnesium oxide 400 mg oral tablet (2 sources) Start: 12-19-2024 End: 12-19-2025 take 1 tablet by mouth once daily magnesium oxide (Mag-Ox) 400 MG tablet Indications: headache, antepartum (HHS-HCC) Take 1 tablet (400 mg) by mouth Daily 30 tablet 6 12/19/2024 12/19/2025 Active meclizine hydrochloride 25 mg oral tablet (2 sources) Antiemetic Start: 12-19-2024 End: 12-29-2024 take 1 tablet by mouth three times daily as needed for dizziness meclizine (Antivert) 25 MG tablet Indications: headache, antepartum (HHS-HCC) , Nausea Take 1 tablet (25 mg) by mouth 3 (three) times a day as needed for dizziness for up to 10 days 30 tablet 12/19/2024 12/29/2024 Active naproxen 500 mg oral tablet (1 source) [...] Proton Pump Inhibitor Start: 02-03-20 End: 03-02-20 take 1 tablet by mouth in the [...] Active promethazine hydrochloride 12.5 mg oral tablet (5 sources) Phenothiazine Start: 11-24-2024 End: 02-22-2025 take 1 [...] Discharge) Start: 02-05-2023 take 1 capsule by [facility] every twenty-four hours Vistaril 25 MG 1 [...] 30 days. 240 mL 02/04/2024 03/05/2024 Active medroxyPROGESTERone acetate 10 mg oral tablet (13 [...] days. 10 capsule 0 09/09/2023 09/14/2023 nystatin [id number] unt/ml oral suspension (1 source) Polyene Antifungal [...] anxiety disorder; Translations: [Generalized anxiety disorder] Onset: 4 Chronic Complications of surgical procedures or medical care (20 sources) Postprocedural hypothyroidism; Translations: [Postoperative hypothyroidism] Onset: 4 10-29-2023 Chronic Contraceptive and procreative management (6 sources) Patient encounter status; Translations: [Persons encountering [...] related conditions, unspecified trimester] 11-22-2024 Episodic Other complications of (2 sources) Headache; Translations: [Other specified related conditions, unspecified trimester] 12-19-2024 Episodic Other endocrine disorders (14 sources) Polycystic [...] 03-07-2024 Episodic Other and delivery including normal (4 sources) ; Translations: [Encounter for supervision of normal , unspecified, unspecified trimester] 12-07-2024 Episodic Other skin disorders (1 source) Localized swelling, mass and lump, neck Episodic Residual codes; unclassified (2 sources) Gestation period, 9 weeks; Translations: [9 weeks gestation of ] 12-19-2024 Episodic Thyroid disorders (20 sources) Thyroid nodule; [...] Unclassified (1 source) Insect Bite Onset: 5 Unclassified (4 sources) OB Reminders Onset: 5 12-11-2024 Past or Other Problems Problem Classification Problem Date Documented Date Episodic/Chronic Abdominal pain (10 sources) Indigestion; Translations: [Epigastric pain] Onset: 4 02-18-2024 Episodic Fever of unknown origin (1 source) Fever Onset: 4 Episodic Headache; including migraine (1 source) Acute [...] stomach and duodenum] Onset: 4 Episodic Other disorders of stomach and duodenum (1 source) Gastroparesis; Translations: [Gastroparesis] Onset: Episodic Other female genital disorders (15 sources) [...] lower respiratory disease (1 source) Cough Onset: Episodic Other nervous system disorders (20 sources) [...] Test Name Value Interpretation Reference Range Facility Urinalysis macro (dipstick) panel (U)on 12-19-2024 Bilirubin, UA Negative Negative - 4(70) +++ mg/dL [facility] Blood, UA Negative Negative - 50 Joshua/mcL [facility] Clarity, UA Clear [facility] Color, UA Yellow [facility] Glucose, UA Negative Negative - 1999(110) ++++ mg/dL [facility] Interpretation and review of laboratory results Abnormal [facility] Ketones, UA Negative Negative - 160(16) ++++ mg/dL [facility] Leukocytes, UA Positive Negative - 500+++ Diego/mcL [facility] Nitrite, UA Negative Negative - Positive [facility] pH, UA 5.5 5 - 9 [facility] Protein, UA Negative Negative - 2000(20) ++++ mg/dL [facility] Spec Grav, UA 1.015 1 - 1.03 [facility] Urobilinogen, UA 1.0 0.2 - 12 mg/dL [facility] Urine Cultureon 12-18-2024 Bacteria identified Cx Nom (U) 50,000 colonies/ml mixed bacterial skin contaminants 2 Days PERFORMED BY: [place] [address] PATHOLOGIST MARINE CHRONOMETER ASSEMBLER BRIA LOUIS M.D. Normal [facility] Comment on above: Performed By: #### C UU #### [address] BOX TESTon 12-16-2024 BOX TEST SENT OUT [facility] [address] [facility] [address] 01/03/2025 [facility] HCG ( test) Ql (U)o n 12-07-2024 Interpretation and review of laboratory results Abnormal [facility] Preg Test, Ur Positive Negative [facility] Urinalysis macro (dipstick) panel (U)on 12-07-2024 Bilirubin, UA Negative Negative - 4(70) +++ mg/dL [facility] Blood, UA Negative Negative - 50 Joshua/mcL [facility] Clarity, UA Clear [facility] Color, UA Yellow [facility] Glucose, UA Negative Negative - 2000(110) ++++ mg/dL [facility] Interpretation and review of laboratory results Normal [facility] Ketones, UA Negative Negative - 160(16) ++++ mg/dL [facility] Leukocytes, UA Negative Negative - 500+++ Diego/mcL [facility] Nitrite, UA Negative Negative - Positive [facility] pH, UA 6.5 5 - 9 [facility] Protein, UA Negative Negative - 2000(20) ++++ mg/dL [facility] Spec Grav, UA 1.025 1 - 1.03 [facility] Urobilinogen, UA 1.0 0.2 - 12 mg/dL [facility] US OB TRANSVAGINALon 025 US OB TRANSVAGINAL FINDINGS: A single [...] Interpretation and review of laboratory results Abnormal [facility] Preg Test, Ur Positive Negative [facility] Urinalysis macro (dipstick) panel (U)on 11-22-2024 Bilirubin, UA Negative Negative - 4(70) +++ mg/dL [facility] Blood, UA Negative Negative - 50 Joshua/mcL [facility] Clarity, UA Clear [facility] Color, UA Yellow [facility] Glucose, UA Negative Negative - 2000(110) ++++ mg/dL [facility] Interpretation and review of laboratory results Normal [facility] Ketones, UA Negative Negative - 160(16) ++++ mg/dL [facility] Leukocytes, UA Negative Negative - 500+++ Diego/mcL [facility] Nitrite, UA Negative Negative - Positive [facility] pH, UA 6 5 - 9 [facility] Protein, UA Negative Negative - 1999(20) ++++ mg/dL [facility] Spec Grav, UA 1.01 1 - 1.03 [facility] Urobilinogen, UA 1.0 0.2 - 12 mg/dL [facility] TB PREG QUANT HCGon 025 HCG QUANTITATIVE 4630 mIU/mL [facility] Comment on above: 5-50 0.2-1 WEEK 50-500 1-2 WEEKS 100-5,000 2-3 WEEKS 500-10,000 3-4 WEEKS 1,000-50,000 4-5 WEEKS 10,000-100,000 5-6 WEEKS 15,000-200,000 6-8 WEEKS 10,000-100,000 2-[facility] STIM HORMONEon 0 11-13-2024 Interpretation and review of laboratory results Abnormal [facility] TSH Qn 12.103 m[IU]/L High [facility] No [facility] 11-[facility]on 025 HCG QUANTITATIVE 481 mIU/mL [facility] Comment on above: 5-50 0.2-1 WEEK 50-500 1-2 WEEKS 100-5,000 2-3 WEEKS 500-10,000 3-4 WEEKS 1,000-50,000 4-5 WEEKS 10,000-100,000 5-6 WEEKS 15,000-200,000 6-8 WEEKS 10,000-100,000 2-3 MONTHS FREE T4on 03-31-2024 Free T4 [Mass/Vol] 0.93 ng/dL Normal 0.61-1.60 [facility] Comment on above: Performed By: #### 3 024-7 #### [facility] ([id number]) [address] [place] [address] TSHon 03-31-2024 TSH Qn 11.47 m[IU]/L High [facility] TSH Qnon 03-31-2024 Interpretation and review of laboratory results Abnormal [facility] TSH 11.47 uIU/mL High 0.49-4.67 [facility] Comment on above: Performed By: #### 3 016-3 #### [facility] ([id number]) [address] [place] [address] TB PREG QUANT HCGon 024 HCG QUANTITATIVE <1 mIU/mL [facility] Comment on above: 5-50 0.2-1 WEEK 50-500 1-2 WEEKS 100-5,000 2-3 WEEKS 500-10,000 3-4 WEEKS 1,000-50,000 4-5 WEEKS 10,000-100,000 5-6 WEEKS 15,000-200,000 6-8 WEEKS 10,000-100,000 2-3 [facility] 024 HCG QUANTITATIVE <1 mIU/mL [facility] Comment on above: 5-50 0.2-1 WEEK 50-500 1-2 WEEKS 100-5,000 2-3 WEEKS 500-10,000 3-4 WEEKS 1,000-50,000 4-5 WEEKS 10,000-100,000 5-6 WEEKS 15,000-200,000 6-8 WEEKS 10,000-100,000 2-3 [facility] QUANT HCGon 024 HCG QUANTITATIVE <1 mIU/mL [facility] Comment on above: 5-50 0.2-1 WEEK 50-500 1-2 WEEKS 100-5,000 2-3 WEEKS 500-10,000 3-4 WEEKS 1,000-50,000 4-5 WEEKS 10,000-100,000 5-6 WEEKS 15,000-200,000 6-8 WEEKS 10,000-100,000 2-[facility] PREG QUANT HCGon 024 HCG QUANTITATIVE <1 mIU/mL [facility] Comment on above: 5-50 0.2-1 WEEK 50-500 1-2 WEEKS 100-5,000 2-3 WEEKS 500-10,000 3-4 WEEKS 1,000-50,000 4-5 WEEKS 10,000-100,000 5-6 WEEKS 15,000-200,000 6-8 WEEKS 10,000-100,000 2-[facility] HCG,Urineon 03-03-2024 Beta HCG ( test) Ql (U) Negative Normal [facility] Comment on above: Result Comment: PERF ORMED BY: [place] [address] PATHOLOGIST MARINE CHRONOMETER ASSEMBLER MAIK BARNES M.D. Performed By: #### U HCG #### [address] gastric emptying studyon 03-03-2024 MS gastric emptying study [facility] [place] [address] Nuclear Medicine Report Signed Patient: Sheyla Lea I MR#: [id number] : 2005 Acct:[id number] Age/Sex: 18 / F ADM Date: 03/03/24 Loc: MS Room: Type: [facility] Attending Dr: Brooke Conde DO Copies to: [...] Salinas Adams M.D.03/03/2024 1:04 PM Dictation Location: [place] [address] Transcribed By: [facility] 03/03/24 1304 Dictated By: Salinas Adams II, MD 03/03/24 1302 Signed By: 03/03/24 1304 Normal [facility] FREE T4on 02-18-2024 Free T4 [Mass/Vol] 1.48 ng/dL Normal 0.61-1.60 [facility] Comment on above: Performed By: #### 3 016-3, 3024-7 #### [facility] ([id number]) [address] [place] [address] Free T4 [Mass/Vol]on 024 [facility] T4, freeon 02-18-2024 Free T4 [Mass/Vol] 1.48 ng/dL 0.61 - 1.60 ng/dL [facility] TSHon 02-18-2024 TSH Qn 0.01 m[IU]/L Low [facility] TSH Qnon 02-18-2024 Interpretation and review of laboratory results Abnormal [facility] TSH 0.01 uIU/mL Low 0.49-4.67 [facility] Comment on above: Performed By: #### 3 016-3, 3024-7 #### [facility] ([id number]) [address] [place] [address] HCG ( test) Ql (U)o n 02-04-2024 Beta HCG ( test) Ql (U) Negative Normal [facility]G [facility] Comment on above: Performed By: #### 2 106-3 #### [facility] ([id number]) [address] [facility] [facility] [facility] [place] [address] Surgical Pathologyon 024 Surgical Pathology Normal [facility] Comment on above: Result Comment: [facility] [employer] [facility] [address] [place] [address] Surgical Pathology Consultation Patient Name:SHEYLA LEA I.:2005 (Age: 18)Gender:FTaken:4Reported:02/08/2024hysician(s):Niki Hollis MD ([phone])Copy To: Rec. #:[id number]: #[id number] Final Pathologic Diagnosis 1. Duodenum, biopsy: Duodenal mucosa with no significant diagnostic abnormality. No evidence of celiac disease. 2. Stomach, antrum, biopsy: Gastric mucosa with mild reactive changes. No histological evidence of H. pylori infection on routine stain. 3. Distal esophagus, biopsy: Mildly reactive junctional mucosa without intestinal metaplasia. Report Electronically Signed Out /4Rkhai Cates MD Interpretation performed at [facility], [address] [place] [address], License number: [id number]. Clinical History Dysphagia. Gross Description 1. Received in formalin labeled, HOFACKER, duodenum are 8 pale-buckley delicate soft tissue fragments, 0.1-0.4 cm in greatest dimension. The specimens are submitted in single cassette. (1, ns, [id number], m8) TB 2. Received in formalin labeled, HOFACKER, antrum are 4 pale-buckley delicate soft tissue fragments, 0.1-0.3 cm in greatest dimension. The specimens are filtered and submitted a single cassette. (1, ns, [id number], m8) TB 3. Received in formalin labeled, HOFACKER, distal esophagus are 3 buckley delicate soft tissue fragments, 0.2-0.5 cm in greatest dimension. The specimens are filtered and submitted (1, ns, [id number], m8) TB tgb/02/07/2024O Specimen(s) Received 1: Duodenum biopsy 2: Antrum biopsy 3: Distal esophageal biopsy Fee Codes(s): 1; 74902 2; 98007 3; 81068 ALL CBC WITH AUTO DIFFon BASOPHILS ABSOLUTE AUTO 0.0 [facility] Basophils/100 WBC (Bld) 0.8 % 0.2 - 2.0 % [facility] Eosinophils/100 WBC (Bld) 1.7 % 0.9 - 7.0 % [facility] Erythrocyte distribution width (RBC) [Ratio] 13.2 % 11.0 - 15.0 % [facility] Hematocrit (Bld) [Volume fraction] 40.6 % 36.0 - 48.0 % [facility] Hemoglobin (Bld) [Mass/Vol] 13.6 g/dL 12.0 - 16.0 g/dL [facility] IMMATURE GRANULOCYTES ABS AUTO 0.01 [facility] Immature granulocytes/100 WBC (Bld) 0.2 % 0.0 - 0.5 % [facility] LYMPHOCYTES ABSOLUTE AUTO 1.9 [facility] Lymphocytes/100 WBC (Bld) 39.0 % 20.5 - 60.0 % [facility] MCH (RBC) [Entitic mass] 27.5 pg 26.7 - 34.0 pg [facility] MCHC (RBC) [Mass/Vol] 33.5 g/dL 29.9 - 35.2 g/dL [facility] MCV (RBC) [Entitic vol] 82.0 fL 81.0 - 99.0 fL [facility] MONOCYTES ABSOLUTE AUTO 0.5 [facility] Monocytes/100 WBC (Bld) 10.4 % 1.7 - 12.0 % [facility] NEUTROPHILS ABSOLUTE AUTO 2.3 [facility] Neutrophils/100 WBC (Bld) 47.9 % 43.0 - 75.0 % [facility] Platelet mean volume (Bld) [Entitic vol] 10.4 fL 9.5 - 13.5 fL [facility] TBH EO # 0.1 [facility] TBH PLT 223 [facility] 4.95 [facility] WBC 4.8 [facility] Jose 01-14-2024 L Specimen: Re ceived: 01/18/24 Status: VERO Dodson Num: [id number] Spec Type: Cytology Subm Dr: Gerardo Meredith Tissues: A ASCITES (PELVIC FLUID) Procedures: HE/2, Gross/Micro L4, Cyto Prepstain, PAPSTN Age/ Patient Sex Location Account Attending Physician Sheyla Lea I 18/F LABELL [id number] Gerardo Meredith SPEC NUM: RECD: 01/18/24 STATUS: VERO DODSON NUM: [id number] JAREK: 01/14/[address]: Gerardo Meredith ENTERED: 01/18/[address]: Anoop,Lab SPEC TYPE: Cytology DEPT: [facility] ENTERED BY: [id number] RECV BY: [id number] ORDERED: HE/2, Gross/Micro L4, Cyto Prepstain, PAPSTN ORDERED: HE/2, Gross/Micro L4, Cyto Prepstain, PAPSTN Pathological Diagnosis Pelvic fluid cytology: Negative for malignant cells. Gross Description Received fresh is 10 ml yellow clear unfixed fluid for cytology said to have been obtained as pelvic fluid. ThinPrep and cell block preparations are prepared for microscopic examination. (TX/ky) CPT Codes 16076 Specimen: Received: 01/18/24-1218 Status: VERO Dodson Num: [id number] Spec Type: Cytology Subm Dr: Gerardo Meredith Tissues: A ASCITES (PELVIC FLUID) Procedures: HE/2, Gross/Micro L4, Cyto Prepstain, PAPSTN Patient: Sheyla Lea I [id number] (Continued) Signed (signature on file) Cleo Beckford MD 01/19/24 1433 Normal [facility] Chlamydia/GC by PCR urineon 10-29-2023 Chlamydia sp DNA SWAPNA+probe Ql (Unsp spec) Negative Negative^Neg ative [facility] Comment on above: Chlamydia trachomatis not detected by nucleic acid amplification. This does not exclude the possibility of infection because results are dependent on adequate specimen collection. N. gonorrhoeae DNA SWAPNA+probe Ql (Unsp spec) Negative Negative^Neg ative [facility] Comment on above: Neisseria gonorrhoeae not detected by nucleic acid amplification. This does not exclude the possibility of infection because results are dependent on adequate specimen collection. Specimen source Nom (Unsp spec) CLEAN CATCH MIDSTREAM URINE [facility] Comprehensive metabolic pane jose 10-29-2023 Albumin [Mass/Vol] 4.4 g/dL 3.2 - 5.3 g/dL [facility] ALP [Catalytic activity/Vol] 64 U/L 39 - 130 U/L [facility] ALT No additional P-5'-P [Catalytic activity/Vol] 18 U/L 0 - 31 U/L [facility] Anion gap [Moles/Vol] 10 mmol/L 5 - 15 mmol/L [facility] AST [Catalytic activity/Vol] 16 U/L 0 - 41 U/L [facility] Bilirubin [Mass/Vol] 0.4 mg/dL 0.3 - 1.2 mg/dL [facility] Calcium [Mass/Vol] 9.8 mg/dL 8.5 - 10.5 mg/dL [facility] Chloride [Moles/Vol] 102 mmol/L 98 - 109 mmol/L [facility] CO2 [Moles/Vol] 25 mmol/L 22 - 32 mmol/L [facility] Creatinine [Mass/Vol] 0.65 mg/dL 0.40 - 1.00 mg/dL [facility] Comment on above: METHOD TRACEABLE TO [facility] STANDARD eGFR (CKD-EPI)non-race dependent - PINF [facility] Comment on above: Reported eGFR is based on the CKD-EPI 2020 equation that does not use a race coefficient. Glucose [Mass/Vol] 80 mg/dL 65 - 99 mg/dL [facility] Potassium [Moles/Vol] 4.1 mmol/L 3.5 - 5.0 mmol/L [facility] Protein [Mass/Vol] 7.3 g/dL 6.0 - 8.0 g/dL [facility] Sodium [Moles/Vol] 137 mmol/L 134 - 146 mmol/L [facility] Urea nitrogen [Mass/Vol] 12 mg/dL 5 - 23 mg/dL [facility] Free T4 [Mass/Vol]on 024 [facility] Lipid 1996 panelon 4 Cholesterol [Mass/Vol] 157 mg/dL 150 - 200 mg/dL [facility] Cholesterol in HDL [Mass/Vol] 56 mg/dL 39 - PINF mg/dL [facility] Comment on above: HDL <40 mg/dL - High Risk HDL > or = 40mg/dL- Desirable HDL >60 mg/dL - Negative Risk Cholesterol in LDL [Mass/Vol] 85 mg/dL NINF - 130 mg/dL [facility] Comment on above: LDL <100 mg/dL - Desirable LDL >160 mg/dL - High Risk Cholesterol in VLDL [Mass/Vol] 16 mg/dL 0 - 30 mg/dL [facility] Cholesterol.total /Cholesterol in HDL [Mass ratio] 2.8 {ratio} 1.0 - 5.0 [facility] Triglyceride [Mass/Vol] 80 mg/dL 27 - 150 mg/dL [facility] No Panel Informationon 10-28 [facility] T4, freeon 10-29-2023 Free T4 [Mass/Vol] 0.73 ng/dL 0.61 - 1.60 ng/dL [facility] TSH with Reflexon 10-29-2023 Interpretation and review of laboratory results Abnormal [facility] TSH Qn 22.23 m[IU]/L High [facility] Trichomonas by PCRon 024 Specimen source Nom (Body fld) CLEAN CATCH MIDSTREAM URINE [facility] T. vaginalis rRNA Probe Ql (Genital specimen) Not detected Not Detected^Not Detected [facility] Comment on above: Trichomonas vaginali s not detected NOTE Assay methodology is nucleic acid amplification by real-time PCR for detection of Trichomonas vaginalis DNA performed on [email or web address] Instrument System. [facility] CHLAMYDIA/GC PCR, Uon 2023 CHLAMYDIA/GC PCR, U [...] are dependent on adequate specimen collection. Normal [facility] Comment on above: Performed By: #### C #### [facility] ([id number]) [address] [place] [address] COMPREHENSIVE METABOLIC PANE [facility] [place] 10-28-2023 Albumin [Mass/Vol] 4.4 g/dL Normal 3.2-5.3 [facility] Comment on above: Performed By: #### [place], [address]-4, TSHR, 3023-7 #### [facility] ([id number]) [address] [place] [address] ALP [Catalytic activity/Vol] 64 U/L Normal 39-130 [facility] [facility] Comment on above: Performed By: #### [place], 06617-1, TSHR, 3023-7 #### [facility] ([id number]) [address] [place] [address] ALT [Catalytic activity/Vol] 18 U/L Normal 0-31 [facility] Comment on above: Performed By: #### C MP, 00134-4, TSHR, 3023-7 #### [facility] ([id number]) [address], [address] [place] [address] Anion gap [Moles/Vol] 10 mmol/L Normal 5-15 [facility] Comment on above: Performed By: #### C MP, 12988-3, TSHR, 3023-7 #### [facility] ([id number]) [address] [place] [address] AST [Catalytic activity/Vol] 16 U/L Normal 0-41 [facility] Comment on above: Performed By: #### C MP, 64560-3, TSHR, 4-7 #### [facility] ([id number]) [address] [place] [address] Bilirubin [Mass/Vol] 0.4 mg/dL Normal 0.3-1.2 [facility] Comment on above: Performed By: #### C VINCENT, 81384-0, TSHR, 7 #### [facility] ([id number]) [address], [address] [place] [address] Calcium [Mass/Vol] 9.8 mg/dL Normal 8.5-10.5 [facility] Comment on above: Performed By: #### C VINCENT, 32250-6, TSHR, 3023-7 #### [facility] ([id number]) [address], [facility] [address] [place] [address] Chloride [Moles/Vol] 102 mmol/L Normal 98-109 [facility] Comment on above: Performed By: #### C VINCENT, 37276-5, TSHR, 7 #### [facility] ([id number]) [address] [place] [address] CO2 [Moles/Vol] 25 mmol/L Normal 22-32 [facility] Comment on above: Performed By: #### Joseline KAUR, 60285-5, TSHR, 7 #### [facility] ([id number]) [address], [facility] [address] [place] [address] Creatinine [Mass/Vol] 0.65 mg/dL Normal 0.40-1.00 [facility] Comment on above: Result Comment: METH OD TRACEABLE TO IDMS STANDARD Performed By: #### C VINCENT, 22685-9, TSHR, 7 #### [facility] ([id number]) [address] [address] [place] [address] eGFR (CKD-EPI) NON-RACE DEPENDENT >90 Normal >59 [facility] Comment on above: Result Comment: Reported eGFR is based on the CKD-EPI 2020 equation that does not use a race coefficient. Performed By: #### Joseline KAUR, 01536-0, TSHR, 3023-7 #### [facility] ([id number]) [address] [place] [address] Glucose [Mass/Vol] 80 mg/dL Normal 65-99 [facility] Comment on above: Performed By: #### C VINCENT, 22168-2, TSHR, 3024-7 #### [facility] ([id number]) [address] [place] [address] Potassium [Moles/Vol] 4.1 mmol/L Normal 3.5-5.0 [facility] Comment on above: Performed By: #### C VINCENT, 63547-7, TSHR, 3024-7 #### [facility] ([id number]) [address] [place] [address] Protein [Mass/Vol] 7.3 g/dL Normal 6.0-8.0 [facility] Comment on above: Performed By: #### C VINCENT, 57480-4, TSHR, 3024-7 #### [facility] ([id number]) [address] [place] [address] Sodium [Moles/Vol] 137 mmol/L Normal 134-146 [facility] Comment on above: Performed By: #### C VINCENT, 13928-3, TSHR, 3024-7 #### [facility] ([id number]) [address] [place] [address] Urea nitrogen [Mass/Vol] 12 mg/dL Normal 5-23 [facility] Comment on above: Performed By: #### C VINCENT, 65938-8, TSHR, 3024-7 #### [facility] ([id number]) [address] [place] [address] FREE T4on 10-28-2023 Free T4 [Mass/Vol] 0.73 ng/dL Normal 0.61-1.60 [facility] Comment on above: Performed By: #### C VINCENT, 67393-3, TSHR, 3024-7 #### [facility] ([id number]) [address] [place] [address] Lipid 1996 panelon 4 Cholesterol [Mass/Vol] 157 mg/dL Normal 150-200 [facility] Comment on above: Performed By: #### Joseline KAUR, 21995-6, TSHR, 3024-7 #### [facility] ([id number]) [address] [place] [address] Cholesterol in HDL [Mass/Vol] 56 mg/dL Normal >39 [facility] Comment on above: Result Comment: HDL <40 mg/dL - High Risk HDL > or = 40mg/dL- Desirable HDL >60 mg/dL - Negative Risk Performed By: #### Joseline KAUR, 64818-2, TSHR, 3024-7 #### [facility] ([id number]) [address] [place] [address] Cholesterol in LDL [Mass/Vol] 85 mg/dL Normal <130 [facility] Comment on above: Result Comment: LDL <100 mg/dL - Desirable LDL >160 mg/dL - High Risk Performed By: #### Joseline KAUR, 47592-1, TSHR, 3024-7 #### [facility] ([id number]) [address] [place] [address] Cholesterol in VLDL [Mass/Vol] 16 mg/dL Normal 0-30 [facility] Comment on above: Performed By: #### Joseline KAUR, 54299-9, TSHR, 3024-7 #### [facility] ([id number]) [address] [facility], [address] [address] CHOLESTEROL:HDL 2.8 Normal 1.0-5.0 [facility] Comment on above: Performed By: #### C VINCENT, 16734-9, TSHR, 3024-7 #### [facility] ([id number]) [address] [address] Triglyceride [Mass/Vol] 80 mg/dL Normal 27-150 [facility] Comment on above: Performed By: #### C VINCENT, 76654-9, TSHR, 3024-7 #### [facility] ([id number]) [address] [place] [address] TRICHOMONAS PCRon 10-28-2023 TRICHOMONAS PCR SPECIMEN SOURCE CLEAN CATCH MIDSTREAM URINE TRICHOMONAS PCR Not detected (qualifier value) Trichomonas vaginalis not detected NOTE Assay methodology is nucleic acid amplification by real-time PCR for detection of Trichomonas vaginalis DNA performed on [employer] GeneXpert Instrument System. Normal [facility] Comment on above: Performed By: #### T RKPCR #### [facility] ([id number]) [address] [place] [address] TSH WITH REFLEXon 10-28-2023 TSH 22.23 uIU/mL High 0.49-4.67 [facility] Comment on above: Performed By: #### Joseline KAUR, 17454-3, TSHR, 3024-7 #### [facility] ([id number]) [address] [address] POCT Influenza A/Influenza B /SARS-COV-2 Veritoron 09-28-2023 External Poct Influenza A Antigen Negative [facility] External Poct Influenza B Antigen Negative [facility] SARS-CoV-2 (COVID-19) Ag IA.rapid Ql (Resp) Negative [facility] CNOVon 09-09-2023 CNOV Office Visit (OTMNCA ) SHEYLA LEA ([id number]) 3 F Date Time Provider Department 09/09/23 [...] 0 THYROID STIMULATING HORMONE [SQTSH] Order #: [id number] FUTURE PTH INTACT [SQPTHI] Order #: [id number] FU (more content not included)... Normal [facility] Basic metabolic 2000 panelon 09-04-2023 Anion gap [Moles/Vol] 12 mmol/L Normal 9-18 [facility] Comment on above: Order Comment: Speci men Type: BLOOD SPECIMENOrdering Facility: [facility] Address: [address] [place] [address] Performed By: #### 2 777-1, 82522-7, ####[facility] [id number] [place] [address] [place] Calcium [Mass/Vol] 8.7 mg/dL Normal 8.5-10.2 [facility] Comment on above: Order Comment: Speci men Type: BLOOD SPECIMENOrdering Facility: [facility] Address: [address] [place] [address] Performed By: #### 2 777-1, 80828-0, ####[facility] [id number] [place] [address] [place] Chloride [Moles/Vol] 106 mmol/L High 97-105 [facility] Comment on above: Order Comment: Speci men Type: BLOOD SPECIMENOrdering Facility: [facility] Address: [address] [place] [address] Performed By: #### 2 777-1, , ####[facility] [id number] [place] [address] [place] CO2 [Moles/Vol] 21 mmol/L Low 22-30 [facility] Comment on above: Order Comment: Speci men Type: BLOOD SPECIMENOrdering Facility: [facility] Address: [address] [place] [address] Performed By: #### 2 777-1, , ####[facility] [id number] [place] [address] [place] Creatinine [Mass/Vol] 0.59 mg/dL Normal 0.58-0.96 [facility] Comment on above: Order Comment: Speci men Type: BLOOD SPECIMENOrdering Facility: [facility] Address: [address] [place] [address] Performed By: #### 2 777-1, , ####[facility] [id number] [place] [address] [place] Creatinine and Glomerular filtration rate.predicted panel (S/P/Bld) 133 mL/min/1.73m??? Normal >=60 [facility] Comment on above: Order Comment: Speci men Type: BLOOD SPECIMENOrdering Facility: [facility] Address: [address] [place] [address] Result Comment: Akila mated Glomerular Filtration Rate [...] actual GFR. Performed By: #### 2 777-1, 96254-6, ####[facility] [id number] [place] [id number] [place] Glucose [Mass/Vol] 85 mg/dL Normal 74-99 [facility] Comment on above: Order Comment: Speci men Type: BLOOD SPECIMENOrdering Facility: [facility] Address: [address] [place] [address] Result Comment: The [place] [employer] Association (ADA) provides guidance for cutoff [...] Standards of Medical Care in Diabetes 2016, [place] [employer]. Diabetes Care. 2016.39(Suppl 1). Performed By: #### 2 777-1, 32599-0, ####[facility] [id number] [place] [address] [place] Potassium [Moles/Vol] 3.9 mmol/L Normal 3.7-5.1 [facility] Comment on above: Order Comment: Speci men Type: BLOOD SPECIMENOrdering Facility: [facility] Address: [address] [place] [address] Performed By: #### 2 777-1, 75358-2, ####[facility] [id number] [place] [address] [place] Sodium [Moles/Vol] 139 mmol/L Normal 136-144 [facility] Comment on above: Order Comment: Speci men Type: BLOOD SPECIMENOrdering Facility: [facility] Address: [address] [place] [address] Performed By: #### 2 777-1, 03471-0, ####[facility] [id number] [place] [address] [place] Urea nitrogen [Mass/Vol] 6 mg/dL Low 7-21 [facility] Comment on above: Order Comment: Speci men Type: BLOOD SPECIMENOrdering Facility: [facility] Address: [address] [place] [address] Performed By: #### 2 777-1, 05831-9, 74094-5 ####[facility] [id number] [place] [address] [place] CBC panel Auto (Bld)on 09-03 Erythrocyte distribution width (RBC) [Ratio] 14.4 % Normal 11.5-15.0 [facility] Comment on above: Order Comment: Speci men Type: BLOOD SPECIMENOrdering Facility: [facility] Address: [address] [place] [address] Performed By: #### 5 8410-2 ####[facility] [id number] [place] [address] [place] Hematocrit (Bld) [Volume fraction] 38.9 % Normal 36.0-46.0 [facility] Comment on above: Order Comment: Speci men Type: BLOOD SPECIMENOrdering Facility: [facility] Address: [address] [place] [address] Performed By: #### 5 8410-2 ####[facility] [id number] [place] [address] [place] Hemoglobin (Bld) [Mass/Vol] 12.4 g/dL Normal 11.5-15.5 [facility] Comment on above: Order Comment: Speci men Type: BLOOD SPECIMENOrdering Facility: [facility] Address: [address] [place] [address] Performed By: #### 5 8410-2 ####[facility] [id number] [place] [address] [place] MCH (RBC) [Entitic mass] 25.6 pg Low 26.0-34.0 [facility] Comment on above: Order Comment: Speci men Type: BLOOD SPECIMENOrdering Facility: [facility] Address: [address] [place] [address] Performed By: #### 5 8410-2 ####[facility] [id number] [place] [address] [place] MCHC (RBC) [Mass/Vol] 31.9 g/dL Normal 30.5-36.0 [facility] Comment on above: Order Comment: Speci men Type: BLOOD SPECIMENOrdering Facility: [facility] Address: [address] [place] [address] Performed By: #### 5 8410-2 ####[facility] [id number] [place] [address] [place] MCV (RBC) [Entitic vol] 80.2 fL Normal 80.0-100.0 [facility] Comment on above: Order Comment: Speci men Type: BLOOD SPECIMENOrdering Facility: [facility] Address: [address] [place] [address] Performed By: #### 5 8410-2 ####[facility] [id number] [place] [address] [place] Nucleated RBC (Bld) [#/Vol] 10*3/uL Normal <0.01 [facility] Comment on above: Order Comment: Speci men Type: BLOOD SPECIMENOrdering Facility: [facility] Address: [address] [place] [address] Performed By: #### 5 8410-2 ####[facility] [id number] [place] [address] [place] Platelet mean volume (Bld) [Entitic vol] 11.2 fL Normal 9.0-12.7 [facility] Comment on above: Order Comment: Speci men Type: BLOOD SPECIMENOrdering Facility: [facility] Address: [address] [place] [address] Performed By: #### 5 8410-2 ####[facility] [id number] [place] [address] [place] Platelets (Bld) [#/Vol] 241 10*3/uL Normal 150-400 [facility] Comment on above: Order Comment: Speci men Type: BLOOD SPECIMENOrdering Facility: [facility] Address: [address] [place] [address] Performed By: #### 5 8410-2 ####[facility] [id number] [place] [address] [place] RBC (Bld) [#/Vol] 4.85 10*6/uL Normal 3.90-5.20 [facility] Comment on above: Order Comment: Speci men Type: BLOOD SPECIMENOrdering Facility: [facility] Address: [address] [place] [address] Performed By: #### 5 8410-2 ####[facility] [id number] [place] [address] [place] WBC (Bld) [#/Vol] 6.31 10*3/uL Normal 3.70-11.00 [facility] Comment on above: Order Comment: Speci men Type: BLOOD SPECIMENOrdering Facility: [facility] Address: [address] [place] [address] Performed By: #### 5 8410-2 ####[facility] [id number] [place] [address] [place] Magnesium SerPl-mCncon 09-03 Magnesium [Mass/Vol] 2.1 mg/dL Normal 1.7-2.3 [facility] Comment on above: Order Comment: Speci men Type: BLOOD SPECIMENOrdering Facility: [facility] Address: [address] [place] [address] Performed By: #### 2 777-1, 06624-4, ####[facility] [id number] [place] [id number] [place] Phosphate SerPl-mCncon 09-03 Phosphate [Mass/Vol] 3.3 mg/dL Normal 2.7-4.8 [facility] Comment on above: Order Comment: Speci men Type: BLOOD SPECIMENOrdering Facility: [facility] Address: [address] [place] [address] Performed By: #### 2 777-1, 33470-9, ####[facility] [id number] [place] [address] [place] ANES POSTPROC EVALon 024 ANES POSTPROC EVAL HNO ID: [id number] Author: ITZEL ANTONY MD Service: ? Author Type: Physician Type: Anesthesia Postprocedure Evaluation Filed: 09/03/2023 12:57 Note Text: POST ANESTHESIA EVALUATION NOTE : 2005 Procedure Summary Date: 09/03/23 Room / Location: [address] Anesthesia Start: 721 Anesthesia Stop: 1222 Procedure: THYROIDECTOMY TOTAL (Bilateral: Thyroid) Diagnosis: Thyroiditis [...] September 03, 2023 TIME: 12:57 PM CSN: [id number] Normal [facility] ANES PRE-OPon 09-03-2023 ANES PRE-OP HNO ID: [id number] Author: ITZEL ANTONY MD Service: ? Author Type: Physician Type: Anesthesia Preprocedure Evaluation Filed: 09/03/2023 07:25 Note Text: ANESTHESIOLOGY DAY OF SURGERY NOTE : 2004 Procedure Information Anesthesia Start Date/Time: 09/03/23721 Procedure: THYROIDECTOMY TOTAL (Bilateral: Thyroid) Location: [facility] Surgeons: Latasha Bobo MD Estimated [...] and consent discussed: yes. Patient / Responsible Republican agrees to proceed: yes Patient / Surrogate agrees to blood products: Yes Potential Anesthesia issues that may suggest increased risk of complications or contraindication to planned procedure: potential difficult IV access. Vitals Value Taken Time BP 95/50 09/03/23 0552 Pulse 80 09/03/2352 Resp 18 09/03/2352 Temp 36.7 ?C (98.1 ?F) 09/03/2352 SpO2 98 % 09/03/2352 Facility-Administered Medications as of 09/03/2023 Medication Dose [...] September 03, 2023 TIME: 7:25 AM CSN: [id number] [facility] BRIEF OP NOTon 09-03-2023 BRIEF OP NOT HNO ID: [id number] Author: JANINE SOLANO MD Service: Otolaryngology Author Type: Resident Type: Brief Op Note Filed: 09/03/2023 12:12 Note Text: BRIEF OP NOTE LOG ID: [id number] Surgery/Procedure Date: 09/03/2023 Incision/Procedure Start Time: 7:53 AM Incision Close/Procedure End Time: 12:06 PM Surgeon(s)/Proceduralist(s) and Medical Receptionist Medical Assistant(s): Surgeon(s) and Role: * Latasha Bobo MD [...] 03, 2023 TIME: 12:12 PM PAGER/CONTACT #: [phone] Normal [facility] Calcium.ionized [Moles/Vol]o n 09-03-2023 Calcium.ionized (Bld) [Mass/Vol] 1.28 mmol/L Normal 1.08-1.30 [facility] Comment on above: Order Comment: Speci men Type: BLOOD SPECIMENOrdering Facility: [facility] Address: [address] [place] [address] Performed By: #### 1 995-0 ####[facility] [id number] [place] [address] [place] Calcium.ionized adjusted to pH 7.4 (Bld) [Moles/Vol] 1.22 mmol/L Normal 1.08-1.30 [facility] Comment on above: Order Comment: Speci men Type: BLOOD SPECIMENOrdering Facility: [facility] Address: [address] [place] [address] Performed By: #### 1 995-0 ####[facility] [id number] [facility] [id number] [place], [place] [address] [place] NURSING PROGon 09-03-2023 NURSING PROG HNO ID: [id number] Author: BRENNEN AVILA RN Service: Nursing Author Type: Registered Nurse [...] night. This note was completed by: Brennen Avila [facility] OPERATIVE NOon 09-03-2023 OPERATIVE NO HNO ID: [id number] Author: LATASHA BOBO MD Service: Otolaryngology Author Type: Physician Type: Operative Report Filed: 09/08/2023 23:04 Note Text: [place] [address] or (611) [facility] C O N F I D E N T I A L I N F O R M A T I O N -------- STANDARD [facility] DOCUMENT OPERATIVE REPORT Otolaryngology Head and Neck Surgery Name: Sheyla Lea [facility] #: [id number] Date: 09/03/2023 Date of : 2005 Pre [...] the clavicle. These were held back with [place] retractors. The midline raphae was was bisected [...] tissue melton (more content not included)... Normal [facility] Par[facility]yrin.intact [Mass/Vol] 42 pg/mL Normal 15-65 [facility] Comment on above: Order Comment: Speci men Type: BLOOD SPECIMENOrdering Facility: [facility] Address: [address] [place] [address] Performed By: #### 2 731-8 ####[facility] [id number] [place] [address] [place] SURGICAL PATHOLOGYon 024 CASE REPORT Normal [facility] Comment on above: Order Comment: Speci men Type: TISSUE SPECIMENOrdering Facility: [facility] Address: [address] [place] [address] Result Comment: Surg ical Pathology Report Case: [id number] Authorizing Provider: Latasha Bobo MD Collected: 09/03/2023 08:16 AM Ordering Location: Admitting Received: 09/03/2023 08:19 AM Pathologist: Javier Nick DMD Intraop: Joel Jeronimo MD Specimens: A) - Trachea, Biopsy, Pre tracheal node B) - Thyroid, Total, Thyroidectomy, stitch williamson left superior pole Performed By: #### S ####[facility] [id number] [address] STATES OF [facility] CLINICAL HISTORY Normal [facility] Comment on above: Order Comment: Speci men Type: TISSUE SPECIMENOrdering Facility: [facility] Address: [address] [place] [address] Result Comment: Pre- op diagnosis: Thyroiditis [E06.9] Performed By: #### S ####[facility] [id number] [address] FINAL DIAGNOSIS Normal [facility] Comment on above: Order Comment: Speci men Type: TISSUE SPECIMENOrdering Facility: [facility] Address: [address] [place] [address] Result Comment: A. P retracheal lymph node, excision: - Fibroadipose tissue with one benign lymph node. B. 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 Performed By: #### S ####[facility] [id number] [address] FINAL PERFORMING LAB Normal [facility] Comment on above: Order Comment: Speci men Type: TISSUE SPECIMENOrdering Facility: [facility] Address: [address] [place] [address] Result Comment: Diag nostic interpretation performed at [facility], [address] [place] [address] CLIA# [id number] Manager Financial Reporting: Remy Erickson M.D. Performed By: #### S ####[facility] [id number] [place] [address] [place] GROSS DESCRIPTION Normal [facility] Comment on above: Order Comment: Speci men Type: TISSUE SPECIMENOrdering Facility: [facility] Address: [address] [place] [address] Result Comment: Ijeoma samaniego, Biopsy Received fresh for frozen section designated pretracheal node is a pink-buckley lymph node that measures 0.4 x 0.4 x 0.3 cm. The specimen is entirely submitted for intraoperative consultation. WE September 03, 2023 8:26 AM Gross examination performed at [facility], [address] [place] [address] B. Thyroid, Total, Thyroidectomy Labeled: Thyroid, total, [...] lobe Blue- external surface of left lobe Mcqueeney- external surface of isthmus Sectioning: The right [...] photograph: No Cassette code: B1: Right lobe, account retention representative section B2: Left lobe, account retention representative section B3: Isthmus, account retention representative section Gross examination performed [address] [id number] [place] 09/06/23 1:33 PM Performed By: #### S ####[facility] [id number] [address] [place] INTRAOPERATIVE DIAGNOSIS Normal [facility] Comment on above: Order Comment: Speci men Type: TISSUE SPECIMENOrdering Facility: [facility] Address: [address] [place] [address] Result Comment: Ijeoma samaniego, Biopsy FSA 1: Mostly fibroadipose tissue with rare lymphoid aggregate () September 03, 2023 8:35 AM Intraoperative diagnosis performed at [facility], [address] [place] [address] Performed By: #### S ####[facility] [id number] [place] [address] [place] CNCOon 08-27-2023 CNCO Letter Text Normal [facility] B-HCG SerPl-aCncon HCG.beta subunit Qn m[IU]/mL Normal <5.0 [facility] Comment on above: Order Comment: Speci men Type: BLOOD SPECIMENOrdering Facility: [facility] Address: [address] [place] [address] Result Comment: Nega tive Performed By: #### 2 1198-7 ####[facility] [id number] [place] [address] [place] Basic metabolic 2000 panelon 08-25-2023 Anion gap [Moles/Vol] 10 mmol/L Normal 9-18 [facility] Comment on above: Order Comment: Speci men Type: BLOOD SPECIMENOrdering Facility: [facility] Address: [address] [place] [address] Performed By: #### 1 5067-2, 2243-4, DHEAS, 42696-6 ####[facility] LABIA [id number] [place] [address] [place] Calcium [Mass/Vol] 9.8 mg/dL Normal 8.5-10.2 [facility] Comment on above: Order Comment: Speci men Type: BLOOD SPECIMENOrdering Facility: [facility] Address: [address] [place] [address] Performed By: #### 1 5067-2, 2243-4, DHEAS, 93623-5 ####[facility] LABIA [id number] [place] [address] [place] Chloride [Moles/Vol] 106 mmol/L High 97-105 [facility] Comment on above: Order Comment: Speci men Type: BLOOD SPECIMENOrdering Facility: [facility] Address: [address] [place] [address] Performed By: #### 1 5067-2, 2243-4, DHEAS, 02379-1 ####[facility] LABIA [id number] [place] [address] [place] CO2 [Moles/Vol] 24 mmol/L Normal 22-30 [facility] Comment on above: Order Comment: Speci men Type: BLOOD SPECIMENOrdering Facility: [facility] Address: [address] [place] [address] Performed By: #### 1 5067-2, 2243-4, DHEAS, 78937-5 ####[facility] LABIA [id number] [place] [address] [place] Creatinine [Mass/Vol] 0.67 mg/dL Normal 0.58-0.96 [facility] Comment on above: Order Comment: Speci men Type: BLOOD SPECIMENOrdering Facility: [facility] Address: [address] [place] [address] Performed By: #### 1 5067-2, 2243-4, DHEAS, 18565-2 ####[facility] LABIA [id number] [place] [address] [place] Creatinine and Glomerular filtration rate.predicted panel (S/P/Bld) 129 mL/min/1.73m??? Normal >=60 [facility] Comment on above: Order Comment: Speci men Type: BLOOD SPECIMENOrdering Facility: [facility] Address: [address] [place] [address] Result Comment: Akila mated Glomerular Filtration Rate [...] reflect actual GFR. Performed By: #### 1 7-2, 2242-4, DHEAS, 63605-7 ####[facility] LABIA [id number] [place] [address] [place] Glucose [Mass/Vol] 90 mg/dL Normal 74-99 [facility] Comment on above: Order Comment: Specsiomara men Type: BLOOD SPECIMENOrdering Facility: [facility] Address: [address] [place] [address] Result Comment: The [place] Diabetes Association (ADA) provides guidance for cutoff [...] Standards of Medical Care in Diabetes 2016, [place] Diabetes Association. Diabetes Care. 2016.39(Suppl 1). Performed By: #### 1 7-2, 2242-4, DHEAS, 26228-6 ####[facility] LABIA [id number] [address] [address] [place] Potassium [Moles/Vol] 4.0 mmol/L Normal 3.7-5.1 [facility] Comment on above: Order Comment: Harriet abernathy Type: BLOOD SPECIMENOrdering Facility: [facility] Address: [address] [place] [address] Performed By: #### 1 7-2, 2242-4, DHEAS, 13209-2 ####[facility] LABCLIA [id number] [address] [address] [place] Sodium [Moles/Vol] 140 mmol/L Normal 136-144 [facility] Comment on above: Order Comment: Speci men Type: BLOOD SPECIMENOrdering Facility: [facility] Address: [address] [place] [address] Performed By: #### 1 5067-2, 2243-4, DHEAS, 69489-0 ####[facility] LABIA [id number] [place] [address] [place] Urea nitrogen [Mass/Vol] 10 mg/dL Normal 7-21 [facility] Comment on above: Order Comment: Speci men Type: BLOOD SPECIMENOrdering Facility: [facility] Address: [address] [place] [address] Performed By: #### 1 5067-2, 3-4, DHEAS, 39371-3 ####[facility] LABIA [id number] [place] [address] [place] CBC panel Auto (Bld)on 08-24 Erythrocyte distribution width (RBC) [Ratio] 14.3 % Normal 11.5-15.0 [facility] Comment on above: Order Comment: Speci men Type: BLOOD SPECIMENOrdering Facility: [facility] Address: [address] [place] [address] Performed By: #### 5 8410-2 ####[facility] LABIA [id number] [place] [address] [place] Hematocrit (Bld) [Volume fraction] 41.4 % Normal 36.0-46.0 [facility] Comment on above: Order Comment: Speci men Type: BLOOD SPECIMENOrdering Facility: [facility] Address: [address] [place] [address] Performed By: #### 5 8410-2 ####[facility] LABCLIA [id number] [place] [address] [place] Hemoglobin (Bld) [Mass/Vol] 13.1 g/dL Normal 11.5-15.5 [facility] Comment on above: Order Comment: Speci men Type: BLOOD SPECIMENOrdering Facility: [facility] Address: [address] [place] [address] Performed By: #### 5 8410-2 ####[facility] LABIA [id number] [place] [address] [place] MCH (RBC) [Entitic mass] 25.3 pg Low 26.0-34.0 [facility] Comment on above: Order Comment: Speci men Type: BLOOD SPECIMENOrdering Facility: [facility] Address: [address] [place] [address] Performed By: #### 5 8410-2 ####[facility] LABIA [id number] [place] [address] [place] MCHC (RBC) [Mass/Vol] 31.6 g/dL Normal 30.5-36.0 [facility] Comment on above: Order Comment: Speci men Type: BLOOD SPECIMENOrdering Facility: [facility] Address: [address] [place] [address] Performed By: #### 5 8410-2 ####[facility] LABIA [id number] [place] [address] [place] MCV (RBC) [Entitic vol] 80.1 fL Normal 80.0-100.0 [facility] Comment on above: Order Comment: Speci men Type: BLOOD SPECIMENOrdering Facility: [facility] Address: [address] [place] [address] Performed By: #### 5 8410-2 ####[facility] LABCLIA [id number] [place] [address] [place] Nucleated RBC (Bld) [#/Vol] 10*3/uL Normal <0.01 [facility] Comment on above: Order Comment: Speci men Type: BLOOD SPECIMENOrdering Facility: [facility] Address: [address] [place] [address] Performed By: #### 5 8410-2 ####[facility] LABIA [id number] [place] [address] [place] Platelet mean volume (Bld) [Entitic vol] 11.6 fL Normal 9.0-12.7 [facility] Comment on above: Order Comment: Speci men Type: BLOOD SPECIMENOrdering Facility: [facility] Address: [address] [place] [address] Performed By: #### 5 8410-2 ####[facility] LABIA [id number] [place] [address] [place] Platelets (Bld) [#/Vol] 256 10*3/uL Normal 150-400 [facility] Comment on above: Order Comment: Speci men Type: BLOOD SPECIMENOrdering Facility: [facility] Address: [address] [place] [address] Performed By: #### 5 8410-2 ####[facility] LABIA [id number] [place] [address] [place] RBC (Bld) [#/Vol] 5.17 10*6/uL Normal 3.90-5.20 [facility] Comment on above: Order Comment: Speci men Type: BLOOD SPECIMENOrdering Facility: [facility] Address: [address] [place] [address] Performed By: #### 5 8410-2 ####[facility] LABIA [id number] [place] [address] [place] WBC (Bld) [#/Vol] 3.93 10*3/uL Normal 3.70-11.00 [facility] Comment on above: Order Comment: Speci men Type: BLOOD SPECIMENOrdering Facility: [facility] Address: [address] [place] [address] Performed By: #### 5 8410-2 ####[facility] [id number] [place] [id number] [place] DHEA-S BLDon 08-25-2023 DHEA-S [Mass/Vol] 365.3 ug/dL 65.1 - 368 .0 ug/dL [facility] DHEA-S [Mass/Vol] 365.3 ug/dL Normal 65.1-368.0 [facility] Comment on above: Order Comment: Speci men Type: BLOOD SPECIMENOrdering Facility: [facility] Address: [address] [place] [address] Result Comment: Refe rence ranges are age and gender specific. For additional information, reference range tables can be found in the laboratory test directory. The normal values are based on the following source: Dehydroepiandrosterone sulfate (DHEA S) [package insert V 17.0 [place]]. [facility], [place], [place]: December 2012. Performed By: #### 1 5067-2, 2243-4, DHEAS, 47922-3 ####[facility] LABIA [id number] [address] [address] [place] ECG COMPLETEon 08-25-2023 ECG COMPLETE Ventricular Rate : 7 0 BPM Atrial Rate : 70 BPM P-R Interval : 136 ms QRS Duration : 70 ms Q-T Interval : 404 ms QTC Calculation(Bazett) : 436 ms Calculated R Sutherlin : 76 degrees Calculated T Sutherlin : 56 degrees NORMAL SINUS RHYTHM NORMAL ECG Confirmed by MIRNA MICHAEL MD ([id number]) on 08/31/2023 8:27:21 PM NAME : SHEYLA LEA PID : [id number] : 2005 Gender : Female Race : ORD : [id number] Procedure Date : Aug 25 2023 08:09:41 Edit Date : Aug 31 2023 20:27:23 Diagnosis: NORMAL SINUS RHYTHM NORMAL ECG Confirmed by MIRNA MICHAEL MD ([id number]) on 08/31/2023 8:27:21 PM Test Reason : Location : 119 : A17 Overread By : MIRNA MICHAEL MD Edited By : MIRNA MICHAEL MD Referred By : LATASHA BOBO Acquired by : DARRIAN CONTRERAS Normal [facility] ESTRADIOL-17B BLDon 08-25-19 24 E2 [Mass/Vol] 39 pg/mL [facility] Estradiol SerPl-mCncon 08-24 E2 [Mass/Vol] 39 pg/mL Normal [facility] Comment on above: Order Comment: Speci men Type: BLOOD SPECIMENOrdering Facility: [facility] Address: [address] [place] [address] Result Comment: This test is not suitable [...] 3243 pg/mL Second trimester : 1561 to 62684 pg/mL Third trimester : 8285 to >34832 pg/mL Post-menopausal Estradiol reference range: < 41 pg/mL Reference: 1. Estradiol - E2 (Estradiol III) [package insert V 3.0 [place]]. [facility], [place], [place], October 2015. Performed By: #### 1 5067-2, 2243-4, DHEAS, 96352-2 ####[facility] LABCLIA [id number] [place] [address] [place] FSH BLDon 08-25-2023 Follitropin Qn 6.2 m[IU]/mL See comment mIU/mL [facility] FSH SerPl-aCncon 08-25-2023 Follitropin Qn 6.2 m[IU]/mL Normal See comment [facility] Comment on above: Order Comment: Speci men Type: BLOOD SPECIMENOrdering Facility: [facility] Address: [address] [place] [address] Result Comment: Refe rence range: Follicular: 3.5-12.5 mIU/mL Ovulation: 4.7-21.5 mIU/mL Luteal: 1.7-7.7 mIU/mL Postmenopausal: 25.8-134.8 mIU/mL Performed By: #### 1 5067-2, 2243-4, DHEAS, 50373-3 ####[facility] LABCLIA [id number] [place] [address] [place] HCG QUANTITATIVEon 4 HCG.beta subunit Qn <5.0 mIU/mL [facility] HISTORY PHYSICALon 4 HISTORY PHYSICAL HNO ID: [id number] Author: JOHN HUMPHREY PA-C Service: ? Author Type: Physician Medical Receptionist Medical Assistant Type: H&P Filed: 08/26/2023 10:08 Note Text: [...] COVID-19 Immunization Status Overdue - Covid-19 Vaccine (2022- season) Overdue since 01/15/2023 11/11/2020 Imm Admin: [...] CAD, chest pain, CHF, DVT/PE, hypertension, recent MA, murmur/valvular heart disease and PVD. GI: Positive [...] Maternal Gra (more content not included)... Normal [facility] HYDROXYPROGESTERONE-17on 17-HYDROXYPROGEST ERONE QUANTITATIVE BY HPLC-MS/MS, SERUM OR PLASMA 29.23 ng/dL Normal <=206.00 [facility] Comment on above: Order Comment: Harriet abernathy Type: BLOOD SPECIMENOrdering Facility: [facility] Address: [address] [place] [address] Result Comment: INTERPRETIVE INFORMATION for 17-Hydroxyprogesterone in females: Follicular 15 to 70 ng/dL Luteal 35 to 290 ng/dL REFERENCE INTERVAL: 17-Hydroxyprogesterone Qnt, HPLC-MS/MS Access complete set of age- and/or gender-specific reference intervals for this test in the [facility] Test Directory ([employer]). This test was developed and its performance characteristics determined by [facility]. It has not been cleared or approved by the US Food and Drug Administration. This test was performed in a CLIA certified laboratory and is intended for clinical purposes. Performed By: [facility] [address] [place] [address] Manager Financial Reporting: Jaden Fonseca MD, PhD CLIA Number: [id number] Performed By: #### H PROG ####[facility] [id number] [place] [address] LH SerPl-aCncon 08-25-2023 Lutropin Qn 8.8 m[IU]/mL Normal See comment [facility] Comment on above: Order Comment: Harriet abernathy Type: BLOOD SPECIMENOrdering Facility: [facility] Address: [address] [place] [address] Result Comment: Refe rence range: Follicular: 2.4-12.6 mIU/mL Midcycle: 14.0-95.6 mIU/mL Luteal: 1.0-11.4 mIU/mL [facility] [employer]: 7.7-58.5 mIU/mL Performed By: #### 2 842-3, 21148-0 ####[facility]IA [id number] [address] [place] LUTEINIZING HORMONEon 2023 Lutropin Qn 8.8 m[IU]/mL See comment mIU/mL [facility] PROLACTIN BLDon 08-25-2023 Prolactin [Mass/Vol] 8.6 ng/mL 4.5 - 26.8 ng/mL [facility] Prolactin SerPl-mCncon 08-24 Prolactin [Mass/Vol] 8.6 ng/mL Normal 4.5-26.8 [facility] Comment on above: Order Comment: Speci men Type: BLOOD SPECIMENOrdering Facility: [facility] Address: [address] [place] [address] Result Comment: Prol actin test is performed using the [facility] Electrochemiluminescence Immunoassay method. Results obtained with different methods or kits cannot be used interchangeably. Performed By: #### 2 842-3, 71187-1 ####[facility] LABIA [id number] [place] [address] [place] TESTOSTERONE, FREE AND TOTAL on 08-25-2023 TESTOSTERONE, FREE, S 1.45 ng/dL High <0.13-1.08 [facility] Comment on above: Order Comment: Speci men Type: BLOOD SPECIMENOrdering Facility: [facility] Address: [address] [place] [address] Result Comment: ADDITIONAL INFORMATION This test was developed and its performance characteristics determined by [facility] in a manner consistent with CLIA requirements. This test has not been cleared or approved by the U.S. Food and Drug Administration. Performed By: #### T FTEST ####[facility] LABCLIA [id number] [place] [address] TESTOSTERONE, TOTAL, S 56 ng/dL Normal 8-60 [facility] Comment on above: Order Comment: Speci men Type: BLOOD SPECIMENOrdering Facility: [facility] Address: [address] [place] [id number] Result Comment: ADDITIONAL INFORMATION Testing performed by Liquid Chromatography-Tandem Mass Spectrometry (LC-MS/MS). This test was developed and its performance characteristics determined by [facility] in a manner consistent with CLIA requirements. This test has not been cleared or approved by the U.S. Food and Drug Administration. Test Performed by: [facility] [place] [address] Prototype Special Build: Yan Echols M.D. Ph.D.; CLIA# [id number] Performed By: #### T FTEST ####[facility] LABCLIA [id number] [place] [address] Alexsander 07-13-2023 CNPN Telephone (HNQ) SHEYLA LEA ([id number]) 3 F Date Time Provider Department 07/13/23 [...] to consider it. She will see her panel laminator which is a new panel laminator in August and then if still interested in pursuing thyroidectomy will reach out to me. In the meantime we can hold a surgical date. Latasha Bobo MD Allergies As of Date: 07/13/2023 (No Known Allergies) Date Reviewed: 04/23/2023 Reviewed by: Ayesha Maddox RN - Fully Assessed Reason for Visit: Results [95] Primary Visit Diagnosis:Thyroiditis [E06.9] Order(s):SURGICAL REQUEST - ELECTIVE (12/2019) [3831924] Order #: [id number]: 1 CBC [SQCBC] Order #: [id number] FUTURE BASIC METABOLIC PNL [SQBMP] Order #: [id number] FUTURE ECG COMPLETE [ECG01] Order #: [id number] FUTURE Prescriptions as of 08/02/2023 - omeprazole [...] Status:Closed by LATASHA BOBO on 08/02/23 Normal [facility] T4 Free SerPl-mCncon 024 Free T4 [Mass/Vol] 1.2 ng/dL Normal 0.9-1.7 [facility] Comment on above: Order Comment: Harriet abernathy Type: BLOOD SPECIMENOrdering Facility: [facility] Address: [address] [place] [address] Performed By: #### 3 016-3, 3024-7 ####[facility] LABCLIA [id number] [place] [address] [place] THYROGLOBULIN ABon Thyroglobulin Ab Qn 91.0 [IU]/mL High <4.0 [facility] Comment on above: Order Comment: Harriet abernathy Type: BLOOD SPECIMENOrdering Facility: [facility] Address: [address] [place] [address] Result Comment: The Thyroglobulin Antibody test was performed using the [employer] DXI paramagnetic particle chemiluminescent immunoassay method. Results obtained with different assay methods or kits cannot be used interchangeably. Performed By: #### T EVARISTO ####[facility] LABCLIA [id number] [place] [address] [place] THYROID PEROXIDASE ANTIBODY BLOODon 07-09-2023 TPO Ab Qn 249.5 [IU]/mL High <5.6 [facility] Comment on above: Order Comment: Harriet abernathy Type: BLOOD SPECIMENOrdering Facility: [facility] Address: [address] [place] [address] Result Comment: Thyr oid Peroxidase Antibody test is used as an aid in diagnosis of autoimmune thyroid disease. Clinical correlation is required. Performed By: #### M ICRO ####[facility] LABCLIA [id number] [place] [address] [place] TSH SerPl-aCncon 07-09-2023 TSH Qn 2.600 m[IU]/L Normal 0.510-4.300 [facility] Comment on above: Order Comment: Speci men Type: BLOOD SPECIMENOrdering Facility: [facility] Address: [address] [place] [address] Result Comment: If t he patient is , TSH reference range varies by gestational period: First Trimester (weeks 9-12): 0.180-2.990 mIU/L Second Trimester: 0.110-3.980 mIU/L Third Trimester: 0.480-4.710 mIU/L Jose Fisher et al. A Practical Approach for the Verifications and Determination of Site- and Trimester-Specific Reference Intervals for Thyroid Function tests in . Thyroid, 2019:29:3:412-420. Loc Haddad, et al. 2017 Guidelines of the [place] Thyroid Association for the Diagnosis and Management of Thyroid Disease during and the . Thyroid, 2017:27:3:315-389. Reference ranges were not locally established for this patient's age group. The normal values are based on the following source: Jayla W, Tim V. Reference Ranges for Adults and Children: Pre-analytical Considerations. [employer] Performed By: #### 3 016-3, 3024-7 ####[facility] LABIA [id number] [place] [id number] [place] CNOVon 04-23-2023 CNOV Office Visit (OTOLMN ) SHEYLA LEA ([id number]) 3 F Date Time Provider Department 04/23/23 [...] mobility normal Neck Ultrasound: 05/17/2023 Ultrasound Machine: Simple-Fill Transducer: Linear 11 MHz Regions examined: Thyroid [...] [E04.1] Order(s):US THYROID/PARATHYROID (POC) HNI USE ONLY? [[id number]] Order #: [id number]. #:[id number]: 1 TSH BLD [SQTSH] Order #: [id number] FUTURE T4 FREE/FREE THYROX [SQFT4] Order #: [id number] FUTURE THYROID PEROXIDASE ANTIBODY BLOOD [SQMICRO] Order #: [id number] (more content not included)... Normal [facility] Coding Summaryon 02-05-2023 Coding Summary HTMLBase 64 KwyhsbfsBJp0eJx+PGhlYWQ+PE1 PRUOnX16muEPmaM2tB0KQKRqDXj mvJOMBXOuBKiGvavWgXW9avVFwE XJu IC8+FV8dTYNiZopocSDqj6F6cQW 5N17shp2kZOxwqWS1PDKbFmSgft ovt5hocGx7FAriLhxiWaYs DUBlvY61DNS1bR30Nj92xUZjiGU ep0qdjKo9TbYqKDYqMTT2hYapWJ obd2LaLXVoD99msODqq0D4 SSOmxPpvkWTjXtBwiPO7iF7xQRh qppygs6ilvwrcHzg8ts60zUCeh4 Z7vYB6Z4KzbhJ5NNTyaHRv NfgytEIVnE5hlneha3sbowiiTbG rIGYqAKm4VPw9BOYnwNxdRhOrVQ 13SOS5DWPequZdV0HkPEId uDynXsN5a2U6On3FM5KADqbqL0C NTUFSWTwvdGQ+FP74cj14O0BsNz ipCjq2QYFsBTO4iRQ4fG1n QUShWOgdv9N9lBV1Y2UupbLtnh4 pw6dhKZJiMOvnX07cpPZsf7A4EJ MrpOH7NXJlnIurMyHnwI03 Oyc+QKTkcVwmn8FyJczah9tqh4k nxYx4PszdTFRpkeRurNfgCNK6z9 JaPo2gZDVmwJD7eAA8aV7z FoMbCfE6XAcrW569MzUybSNrPgy oD00gB7RnjBY+DHObVvl4SCBttK jySM2aN9OiLCBhqcvgqBBe tRlpCZ9qDFAytixsZVPqfS2uFNP mH2f5EwXuErR9IIwlY1TfMQGexv wlJr63hA0cZdWlHsT4BVvh N5JrvdI2RYLedJGtBPkvZIZ0F76 kf2O9LBObTTRpWPT1aMR7dJ7qnE lnbjogbGVmdDsgdmVydGlj RHjeSZsoH015ZHVtkQqyAxQwUIv uZyBEYXRlOiAgMDkvMjIvMjAyMz wvdGQ+TWWhVTF9sHbhEOLu vSXeOFrkDv2enBzzcOsvEZ6sDOF zkxzhBOJepB9cOQBrnYHkeJmxKD 9xZBBvqlslv281KbMpZJP3 DZMmcBXvH0HmfA5cJvGbZWZsVBN uS7TonGSqAWmrJ126MEuuQeU1JB JedwGoG6CmWKFvcBkhCcK4 y7Q4Cw8Iy3WjripuS5AduBBdDjS hNudsLVz4O7RrQvrgpWP+PC90YW IsZY07YEd9ZLX0rGxxGFzy PPDeG6BpaC2wWzCdPOEeKQSrSlb +PHRhYmxlIHdpZHRoPScxMDAlJy OxaXbhYE2qLi7lJRMlQOKv nPylnFHoFkPej9mwIJKeCNphRQ6 ikRqzF3OecIJ5MQOrk8e7Rf76A7 9jQ5TvhMY+XGYjeKE2vRL3 jA2tKvBtAkA3KEjuV859AeIvuAQ eAgogy0and6sxvNp9OcB9ZANhgz EfgXszUER0m4ZkPx94X88i IHdpZHRoPSIxNSUiIHZhbGlnbj0 ieK8tVw3+WXPdtWQ2wGV5vL0dNr DeJvK8INbpS728UcWtiEAz Lckrf7nut5lrsLg2ZzFnJVAqnrD pfYopBHY9l3DaCz43Y1BwyUtzw1 ZeZmr5fj71gCEma4L7hYM8 H6XzIXVcdxmxcBPzdHnrUK3yOYM beidhVNAoqS4cGPYrB3z5BeAyGz B3GIemR7YrdmQ7UWAmhJVc COMujWCJfM9fwznww8sxtggiNjF fLYUtBWq1MMi7KGWogBfeIbRdCU T0LoK4FFW4jQVqwY6lfFpa rquaiV5fKdp+MGO3iVPtlHRJWH3 lOjwvdGQ+HFCgCEK4uRheSJpeDM XpeE6yRQDaF4i2ObAtDlC8 MHzlR4PnvfF2OKRbuQLrIILjcPQ MfF5abambt5pvpfwwLtIcXVOpAG e9HRj7JFDrcPixWuUaICI6 VyN9ZDS6yEYnhY5gkDdeawnxcB8 wOyc+FnngiDwgCSN8OGw9K6ZgOt v7WQNwpOhhGD5mbWFqEYbi If1orQrzaKcuEI1pXGFiuzbzb47 4BvBpp1obROTapRSeHDjnICA3F0 7sg6T1DZKgWTTlKUG1mTS0 oO8lwZxkdgkoxMUwiUcjmoDfyMj xSAqrUUjbP584RUKvkKglLzGcXW k9A4YdFnz0EIJpiNylIQ8q xEUzKJerPj6idUqcsQklEG2rFSQ ylngjc762OdOlz7wtCWKgnGOvFS wiZUY7O24hf2C7KVHtUSPr UZP6jCV2gG8ieAhjkzuqsDIwvXh fyaSvlEdxVTkzNGxsO167VKBdeW llEpVuxYe6F8OaQcc1BQUl eNtyMF7sbCIeJJbuBf0duJpteWm uXK1vFRBflryqc882XnRxp4rzIX KtkKQkMWloQQP1J29qx4D3 XZMoEOJxZBF2bBU1nN6rgBzawkg gbGVmdDsgdmVydGljYWwtYWxpZ2 46IHRvcDsnPlBhdGllbnQg OPjxWUj7M7LjUlqxdCD+MU33FKS eJA85rWZwhBTxx3kbwYh1TvAfJB CaUDY7eSmbCIses4PvCOZp H27iwGCiz3B0OOIbrZrrwVFuDvC fxSZ9tP1qHAdoyeazv8uszerhNn tjf3zkwl71wV82S48jGAqc CYNmMDMtVANkGBMpkYnrgy3ymZ8 wIi8+MOMfaNN8oFS8wA4jCJMzEz C0UMjzR644UmIpuDOqCqga k0swo0cfrUy0ZeU6XCSpsxYovNn iRBA0f9LvKh93T86ePTzlZUUrEJ GuZRDzWPMgrOtcdf7sbP9q Ii8+BYMyiNQ3cGW1iU9aBvZfCeA 0QApsI687KjBpjJRkNndfM51dX9 JvdXA+NUKsXkg0UAFdcTau RD2wzUWsQZcmMn2bZRO9EtKiPxC zGYsuE8MqYZMqmlrfuubzdUH6UN TdMKFymM01Xa2ktWxfXHNo iZXScK6foadbl9xiydooQeWeTNO qKNr8RTd9YAXavIkwMrGqIAV6Fe V5OQH2dSYluQ6bqZhqxvqy kM1oK0EeBGHieekpFt17oY6tPuC nXjR3XLekAas+AV1TJLDQBMJqKS nPFc2IJOlEQZAPXZmQMU7J NqoCVT99QA67gGWva7V5tHD6R6M hEXGhawvygtpesJT9KAWiAEYuqN 62rVCsUUviOp8ce5V2b148 HVOsMJKndP70Uj6kgHlrIASlbFX NfR8fomkhi5xafdzaGqTlDEZkMB d6USx7DQQvaSmtOrEnCEA5 MmY1SDP7nIHjvU0huQfyrvossS7 wOyc+MDIvMDkvMjAwNTwvdGQ+PH DqESF3jAmtCPfhAPKvqB1y ROEmT2v1GzCtEdG5CAzfO2ZeWVK blfgkJy39iV5pSzOmXuQ7HVlfH9 KetcT4ULTwwIUfULzwVLI6 J62gd2X5EYZrCLDuXXS4vRP6cW6 hbGlnbjogbGVmdDsgdmVydGljYW oqJNveG191HRJzzEixLhQ8 OEzxFTHdPI81BA18gGQzr9H3rFE 5N6RdFRExipwbuxeebGM5WQKsQO WhmN71nGOeAVpgBc6is3C7 w148RYZmBFRybP69At8emMcoEZU drJNKfK5wlcwuu8mchpgwAjUsRZ WeOGx6TCq6XYFafOllMcXs KPB7CwN5ASS1lKAlqR5xlUylroz peF9iQat+JuVHNMiRFN92TI86vU Icu9P4wSY4O9GoQGCfckkd xbtigYS1FOViPAGzlK41uWBbLCv wCl8cn1K9z316UEVeLPQdzI56Yi 3qzMmtMFNbwHXYuW7tyrxw b7gkuhaxRhPhNKSxAXy7FBh7RVP idIrzFgGnQDK4JbA3ZZF7oLHbxC 0mvZhxvywivC5nSyn+T1A8 S3PwGxmzuBO+CH23HPUmWZ28iBD wpCSyt9xjtCp9AtPnTCYaKFA6dG nyDMlej5SeFYKhW19gcLUs g8N5ENBauVobfKMkDtShiQM5bV6 cKEldeuxlm0htzxrxVruqm2kmrv 58vI52B28wZDsbFNQnRYTn FYLoBFHtdGcdro6moD7nNb6+PGN sgKM1bDI7vV8tWiRiIaK4UZkdO3 38HySzrOQgLqgrl0vpc7bx cAz3GwUhQWRwbmPyhFjkLRP1t9Z lZe43Z73dXIixSVSwYEHoCAHdGP RumMgtjn3gkE2jTr5+PC9j v9eqjc51qK19hHP+VKEdPLR4pWt kMFgoJHPtfH1pNMvrGjP9OVMwDi XrxT02sDHgQMyfYs3jjTxu fBzxTP6fOLEwwxmsu740RlOqo5q aBRPbqOCwCHpeYSF9K08xm2G0JB MyJVLrVRU2vEF2rP5jgPku bjogbGVmdDsgdmVydGljYWwtYWx qB292MTBlsWgtJpVtdEQaW6xoqx DFKW9jZklksOK+PHRkIHN0 tJyhOOheLGHgkE7iGPYcR8f9BhV iQiZ4BZokE3HbqgE4SWRqpCUyKS JzyDKGjY0pvjept7rerpmg IcMxKNQfJKs3TYo1QYHngBklAbY nQID2BdV0QGZ9tBAirF0sxToewr srcN2eEdp+RklOOjwvdGQ+ PJPjKUU8jVjnUVqzORAkhJ2eANN mX5w8PiCmLgI1WLnsB2FlihF2ZE NroJMpKDCvjIYTrR1nryia p2nhhzkoHdQaQHSnSJi6VIu7XHJ mlBoqZkImRKA0ZsB0WEW4dBGymX 0cdAavgyplzP4xIgl+TVJO OjwvdGQ+TRTiWCR5aBujDPufDAG ubW4qOVKgT8r2UyAvSiP6OAqgZ7 DqjcN0NPKnjKXzGNNloYPY aP8hemusi4qvlyanGxJfZBBmJEx 6PWm1JEGxdVimWoAnZYH9QtX0HT F0dPCjhJ4ldIqkwidcsG4b Oyc+QJV5WPT6JB71QG03T7ZdWto vdGFibGU+PHRhYmxlIHdpZHRoPS feJTJqNxCjuHleHV4pFd2l ZGV (more content not included)... Normal [facility] ED Clinical Summaryon 2022 ED Clinical Summary [facility] ? Urgent Care [address] [place] [address] Clinical Summary PERSON INFORMATION Name: SHEYLA LEA Age: 17 Years Sex: FEMALE : 2005 MRN: Acct#: Visit Reason: General medical; HEADACHE, RUNNY NOSE Arrival: 01/27/2023 17:33:58 Discharge: 01/27/2023 19:00:00 LOS: 000 01:27 Check In: 01/27/2023 17:33:58 Checkout: 01/27/2023 19:00:00 Address: [address] [place] [address] PCP: Aime Goff DO PROVIDER INFORMATION Provider Role Assigned Unassigned Zara Fleming [employer]NAGER Nurse 01/27/2023 17:38:07 Chetna Rodriguez PA-C ED [...] Follow-Up: With: Address: When: Aime Goff DO [address] [place] [address] DIAGNOSIS: 1:Viral upper respiratory illness Patient Understands: Comment: [facility] ED Note-Nursingon 01-27-2023 ED Note-Nursing covid back at time o f discharge. aware of results [facility] ED Patient Summaryon 023 ED Patient Summary [facility] ? Urgent Care [address] [place] [address] PATIENT DISCHARGE INSTRUCTIONS Patient Information Name: SHEYLA LEA Age: 17 Years Date of : 2005 Reason For Visit: General medical; HEADACHE, RUNNY NOSE Arrival Time: 01/27/2023 17:33:58 Primary Care Physician: Aime Goff DO Attending Physician: Chetna Rodriguez PA-C Comment: Patient Education With: Address: When: Aime Goff DO [address] [place] [address] Viral Respiratory Infection A respiratory infection [...] home: Managing pain and congestion ? Take wjss-cnl-sbgnybc and prescription medicines only as told by [...] water are not available, use alcohol-based hand supervisor final. ? Cover your mouth when you cough. [...] respiratory system, suc (more content not included)... Normal [facility] Coding Summaryon 01-20-2023 Coding Summary HTMLBase 64 KpivlikfNYx3fFx+PGhlYWQ+PE1 BZRZpC50wuTRacO3lY4LPCKlBZa apELNHRJpSBeWdqoNfUZ9pgLZrL XJu IC8+HB8lDWWjGofzeUKij2G4pTH 3J20nto4aXQgqcWC8KSQrQcKgws tmi7gerTj9EOihGqflAfYt ZTZgvW90ADP3pH58Dq64zQJcgQM qp0kdtIn3AeGhWDApJVA0xYzjQU mmr9ZrDMKsN70fdAPhx2T2 LRBnlUlsbNQzEqCuzJS9uW7vXWt wspkak0hsseccKgm6mv53uUYbo5 S3zTN6O8OewaC2XOAmvSWn VfvhiHLMqM2tfedcc9gbgqywTuA bWGJkXJx4RGo4KVOeoWuxMrFpYY 20IRO8LSWafhIfU6WzSBPk jJycTzW5t6U3Wz8SX6WBTzofP9I NTUFSWTwvdGQ+SL78dr86M8XhBv geOht5XNVjPOS0gNL2cH7t TWBxCYubr4H8kFH9B4JpuzBwbk8 kt3cuKEPnIMrdV33eiCVis6J5FH TryIZ4JWDgiAxqWwZifJ60 Oyc+ZSHkhXksa5RaKbuqq5hsg1y fwDb5OqvwEJWsvjSqkUacJHN0e8 SxJa4nBZHczZK8uNT1aZ5k GsOcHmF6UMlpK983XmGmeUYhFnh pW71dN1GzyRG+HJNtWin0MYVtdU ckSR8mM6YqUZYdqsqhxQVk zXxgGI9sHPHujdinNKPckK7dMDS oG2m1PlQdWuX4MSntE3WoMRDxas poAf14bW4zZeCuMgG1WBjd W4GvclQ4SMIdvKJcUGwnAXY3B54 vx5F8WFJpCDIlFKY1oCV5gR0gwP lnbjogbGVmdDsgdmVydGlj HIhsKQtkD523DQRryChuAnBsDAl uZyBEYXRlOiAgMDkvMDYvMjAyMz wvdGQ+BKYyWJW4aCohAEKu bWJpSPheMm1zmDlywEpeYB5nLUU lsauaOZGquE2bJVOrwEFjaSnjVP 7uEXXvqumzp072CvIoKHE4 ZGRcbHHqP4MnsX7zFhGiENArSLE wP6MoaFSaRSvqA951OZgaXwY9TL OmheEyM0HeFNGnaWvvJvD9 k9I8Fd5Pg3NyihyvZ8HafEQgOzQ yWypdKYm9K2AbNskpuFO+PC90YW BdGS99CGc6MTG7sMiuGMrr MJUeF1EjbO5yXoLlDDFjMQPtMqr +PHRhYmxlIHdpZHRoPScxMDAlJy EucEjjQJ5nZm9lQQMyXKSy mUtjpDHiYnFyy5asAAKeKGnyOT3 fuZpvF9OyxFI6GEFhz2s0Ug82W6 0fD2NofLG+GPQrsRK1cPA0 zS9kQgQpMrA2ZKjgJ330ZdCmcAL jRuwdc6prj9ektXc8XkN2ZRYqke ZvrMliVGA6i3VhZj25Y99i IHdpZHRoPSIxNSUiIHZhbGlnbj0 ijN2kZn1+DJFooNG4oKB2oI6lKo KoNjS6SVyvL269IpVbhEAv Bzenf4fym4dbdVg3MjQiVAOsbdS axOkhRPI4p2BnQd10R8XuiLmoo4 SmYak8lc11dNHxm7K9uZJ5 S4KgVZAfcftigKFdeEboSM4zOGT edaxqHSAsgU2qVHXzO6z7YnHqAf J9RGouV4GpnxQ7QJXadZMw DJDgvXUNdO4fbqtac2yvstchGxG oGTDgCEi4TXm4GWWqmOqcMsAhZC V4AdC9UTT7pCVohB3bfXmf xkouuC6lZya+LLE4oNWdrYNBQI1 lOjwvdGQ+YPGfMNK2gCneFBgmPV MtzU7oWAXxD8y7SzMhRbM5 YDlaJ6LwrjC2AQJtbWJmSWPpeIE HgO0lmcfdl4wzutshHmZuOEFwWH a9VKe5PIUypLebYiExALK6 MaZ7DEM2bSPhdC4meHhidqtitY5 wOyc+GaogbMzfZBX8SWe4G0WqKl g4ZNFgaWssIX9ioVRvWLdb Eq6mkPkyqEjtAH0sUIBzbvail73 6VuCrn0msSOCdpQPtQAvvAUY5J7 7in5W6HEXoGPNuHME9qPT2 yT9mtWnrbciwySMriFayhgPqcHq pVWaoOOwoY171AEJvqCrcRdBfLI b9O8FuXti4TUDhdHrbWJ0l vYDuGNeeBi4laVavmBdbNR4dMDU mgkxid890DiTbd4qoDMQvyITgYN uoXAI9W31lw2S3GDStPINb UNQ2lHP7tG1xuQwvyhrfyPMynAo sllDwfIpxTNzbVUifL983VIMnbC qdTeZkwRw0Z3GuFfm3FIJy dMilUT4xhOOjMTjjMc0ntXswwRn iRB2vTIKalwbck892QvXuy9dcML MzxTVzGNutKBF8C89wd4G0 CIUuSJPgZAY1kYT0tZ6wbKyxrnx gbGVmdDsgdmVydGljYWwtYWxpZ2 46IHRvcDsnPlBhdGllbnQg BGquSUz6H4MtZzgemDC+MH42CTN eGY23bQAexTSpf0fplFs9IzHwUH AwKIG5nBplOVejv7RaTKTd D11jbOHaz9C5TTKlrAjvqCEdMvP ryVC6kH8vGOvzauhfs8rwvoyaHj nrz7wbqj92gU70P69qOSgn UHDuZMQsUJLgUQJhjQgnra5plI6 wIi8+BYDciTW0cDM8jT1kXLGqUk G7IMokA519JxRtoVSqNyyy w9spo6vpsHp8UzU3OHJxnuWpyMe gIAL2e0LgGv15H95hMHpbVZFhEL PzZDWcIOAdbIqbra1yhA4i Ii8+QFEtfJH0mEQ5rX9kZcIaShZ 3CYcvP893XxCcvVOsXrsyB09fE7 JvdXA+TDFeEgp0DUZlhHge TE9ubZYlBGivKz1oKEB0UgYsJnB cVNfrT3HvKGByfhrljoqwbVG9AZ CdJOKqwE05Vd9crIwaPUQg yVHJkX3cxserb6ibixohYvRmMEZ bRVf5BWn4OFWjkPvqZxAaMJW3Ad H9VYO8xBHxcZ3zqVojgkpf eT2hP1GiRSOuhsznAb16eH9jLrJ zPeC6KWosCcb+VQ0HPMUCBOMuRT zWAn6DBYjCPKGFYTxWGZ4B XtiFDY30CU92lDAxi4Z4hMC5F9S kJEEbkcfgcccewZA4BHZnOCAgzW 06cMMbIXtyFg1is2Y5d012 HJNgHYEtcB76Mc3jmDeuFWKnzSE YpY6erfvgw0hjgfhrMiQmZHWrQI m9BFb1KSTlvDnnGgKhJJX9 XiX0IKS9jKRzyR9apAdzqxdbrW7 wOyc+MDIvMDkvMjAwNTwvdGQ+PH CnOVA9ePeeMLitUBMzfT2j PZUfD5w5PjLcUhU4ACgnN2QaIOY cpzkvZm94aA8cQqDwKmC1FSflA3 ImqrQ9GSZjkGEyELrfHFV8 D07wz7F4ZZJsBKFpJFN8iZL5uZ1 hbGlnbjogbGVmdDsgdmVydGljYW zePIqtB011QTNfrMrxNwR4 GUecFQPeOU44VR33zDUue7T0sWK 9H8KxQRBckwxcgnndqEM0XQUuJT VmlX45kQYiAYuvFe7gy9T8 r263BLKxGEAkbG47Xl9hqQaiQLJ cmPFGxL9vpxmds1vlrjdnQbToWC XzOEy9KRj9NUYokGzuMrGz IMN9OkC1TAT9kBFfsF0nxFuvgso mqR9qUvu+LoKUZQnVCS43SU42uD Aom4S9rAK3G4GfSKQbmzde japyvMZ2XSImWRMmoN42eQRbVGh lUh8cg6D6h870YPTnYRXqgN29Fo 2vmIbbOOBwfSFCjX9tetoe d7xjairoWaArRSKoTSf6GRe0MND xwJuaQtTvDUW8JaJ9XJH9aPPwkB 1lfUoblbzrlW0cHji+RW1l hsywxfL5XQ59DZ26M4ElLthjrMA ibGU+PHRhYmxlIHdpZHRoPScxMD OxLnFulDfqRF6hPy4oWOMl VXAxfUnjlZQsGmWnj6zeUSWvNEg vOS4aoPhwV1XdiBJ7TRHvo7c3Qo 59N21qE0EayHJ+PGNvbCB3 qHC1nY8pLzUzZtF0IZnfK496RoX ctUEgZygca7wdr8fbpPw8HyUoWF XypjXkyFryEQP5n5JxPq74 I45wLHkfVKEnIZXwEPVmTNYqqPd aiv5yyL6aSx6+JXDgsIO6jRG3lT 5aNlNhAzJ2MKdrW992CgWe oELcHpanJ43vU6OpfZJ+PHRyPjx 3DMLnmKodDS0yoHJzTYyeRb7yIT R2KrAjZhEhCPclC8FeHJZo hwnzxclfmYM3NWZdIOFilG39Yp2 vtIxcXl2tENIbVNR8PVOyvXEeU7 ShzV2rNcTgLFXzQBEtT2Wq wZMgUQmvU846ZDanFiC5VCOoxcD bR2LvEPAqhYxvWrH1s9J6Il2PiR ribIVaFC7uKcMxLCp2K8Mr Qyf9KWLauEmxMP2fgXPmUQraXk8 nnFvnxTbxOX2eNRAtdglbh955Jp Dzj9pxMQOceTYzDVjjKFC2 L48se8U7PDByWTSpBQD5aZH8vB2 hbGlnbjogbGVmdDsgdmVydGljYW nlDCflK108EYPeaMgoAfDH Pli2V8CbHlj2BKEpyCazST4hlLN mKZslXg8wfZqnnFelJR8hMBCxyu sgy276JmBge5gnYNEfbKNh JSpxOFM8I58jy6P1RXLvDTGuWHM 5oCC4wB4fpVbtajdkiMQdyHeevk EmnJsnOPjtZHgaL415RGZb zVelMf7BXdf5C3UuAty9PHUuiIz qLU6bqDYzUPfiEn3xeShrbQizTU 9kHEXchhshg847VkVlp0wa OSPhsNWrSYhkLKU3B56gu1R8TGE yVMLcQJH2cCZ2cI3pyWdecshfeQ VmdDsgdmVydGljYWwtYWxp R239CBTahVjuPgZruSDxWiigvPF +FJ93sj96B8KsArfqHxx8CAMrES N7jQZ5vR7yRSQuPZvcf2J0 bGU (more content not included)... Normal [facility] C Urineon 01-08-2023 C Urine Urine Culture ordere d as a result of parameters set on specific urine dip and urine microsopic results. Mixed skin, or urogenital mar. Clinically insignificant Normal [facility] Comment on above: Performed By: #### 5 [id number], [id number], [id number], [id number] ####[facility] (DEFAULT)[address] [place] [address] .Auto Diff 101-06-2023 Auto Owsley % 9 % Normal 05-28 [facility] Comment on above: Performed By: #### 1 1682334, 0273971, 5679893943, 1170688004, 7883820768, [id number] ####[facility] (DEFAULT)[address] [place] [address] Baso Abs# 0.1 x10 Normal 0.0-0.2 [facility] Comment on above: Performed By: #### 1 6898656, 2608458, 4689867847, 4649126101, 3908580156, [id number] ####[facility] (DEFAULT)[address] [place] [address]85 Basophils/100 WBC (Bld) 1.0 % Normal 0.2-2.0 [facility] Comment on above: Performed By: #### 1 4945477, 7483835, 7977815708, 3032509100, 3284250930, 5063176562 ####[facility] (DEFAULT)[address] [place] [address] Eos Abs# 0.1 x10 Normal 0.0-0.4 [facility] Comment on above: Performed By: #### 1 8441355, 1555603, 8887713274, 5045917491, 8437532632, 4933903841 ####[facility] (DEFAULT)[address] [place] [address]398 Eosinophils/100 WBC (Bld) 2.6 % Normal 0.9-4.0 [facility] Comment on above: Performed By: #### 1 1415969, 9348439, 9814030651, 0542960079, 3160022694, 2786702737 ####[facility] (DEFAULT)[address] [place] [address] 60717 Lymph Abs# 2.5 x10 Normal 1.3-2.9 [facility] Comment on above: Performed By: #### 1 1855390, 8180585, 9283311867, 9512377092, 0629227588, 6638184780 ####[facility] (DEFAULT)[address] [place] [address] 87753 Lymphocytes/100 WBC (Bld) 44 % Normal 14-48 [facility] Comment on above: Performed By: #### 1 0390407, 8073123, 5385375408, 3470009586, 1745521718, 2666015796 ####[facility] (DEFAULT)[address] [place] [address] Owsley Abs# 0.5 x10 Normal 0.0-0.8 [facility] Comment on above: Performed By: #### 1 3750104, 1673216, 8401716763, 4316216621, 7809138916, 6853736037 ####[facility] (DEFAULT)[address] [place] [address] Neut Abs# 2.5 x10 Normal 1.5-9.2 [facility] Comment on above: Performed By: #### 1 4126780, 9098089, 2844761745, 7211645542, 7766131208, 9889131514 ####[facility] (DEFAULT)[address] [place] [address] Neutrophils/100 WBC (Bld) 44 % Normal 44-88 [facility] Comment on above: Performed By: #### 1 3952368, 0461963, 3373156601, 7012136496, 6304243738, 7748509819 ####[facility] (DEFAULT)[address] [place] [address] CBC w/ Auto Diffon 3 Erythrocyte distribution width (RBC) [Ratio] 15.2 % High 11.5-15.0 [facility] Comment on above: Performed By: #### 1 6146990, 6607071, 8477413696, 7323491345, 9985197258, 9192976584 ####[facility] (DEFAULT)[address] [place] [address] Hematocrit (Bld) [Volume fraction] 39.4 % Normal 33.7-40.4 [facility] Comment on above: Performed By: #### 1 9813940, 0532941, 1619187694, 5666182514, 5902843118, 3415665078 ####[facility] (DEFAULT)[address] [place] [address] Hemoglobin (Bld) [Mass/Vol] 13.0 g/dL Normal 11.3-15.9 [facility] Comment on above: Performed By: #### 1 8366503, 9909721, 4924032821, 0724391013, 2526208439, 7786956124 ####[facility] (DEFAULT)[address] [place] [address] 87107 Man Diff? Auto Invalid Interpretation Code [facility] Comment on above: Performed By: #### 1 0342647, 4798535, 2690082135, 2555470540, 4236348542, 5440982964 ####[facility] (DEFAULT)[address] [place] [address] 38001 MCH (RBC) [Entitic mass] 26 pg Normal 24-34 [facility] Comment on above: Performed By: #### 1 0871969, 6020536, 2853031063, 8446298942, 1285692911, 8678904068 ####[facility] (DEFAULT)[address] [place] [address] 82831 MCHC (RBC) [Mass/Vol] 33 g/dL Normal 26-37 [facility] Comment on above: Performed By: #### 1 2986575, 5614655, 2423227775, 1370137022, 2217000143, 4871895775 ####[facility] (DEFAULT)[address] [place] [address] 44323 MCV (RBC) [Entitic vol] 78 fL Low 81-100 [facility] Comment on above: Performed By: #### 1 7756807, 4714499, 0464759639, 3979731694, 8877549770, 6775634704 ####[facility] (DEFAULT)[address] [place] [address] 69068 Platelet 267 x10 Normal 138-427 [facility] Comment on above: Performed By: #### 1 7086272, 3570664, 9122829678, 6246354735, 3490377402, 6135438723 ####[facility] (DEFAULT)[address] [place] [address] 65437 Platelet mean volume (Bld) [Entitic vol] 9.1 fL Normal 6.3-10.2 [facility] Comment on above: Performed By: #### 1 4684327, 8662414, 8807323846, 7293416276, 3323346561, 2086102402 ####[facility] (DEFAULT)[address] [place] [address] 28260 RBC 5.05 x10 Normal 3.70-5.30 [facility] Comment on above: Performed By: #### 1 9745507, 6973724, 5081540958, 1063416116, 1869507105, 9171509267 ####[facility] (DEFAULT)[address] [place] [address] WBC 5.7 x10 Normal 3.5-10.5 [facility] Comment on above: Performed By: #### 1 0912778, 3338665, 9990998859, 1190055063, 1543509224, 0951102850 ####[facility] (DEFAULT)[address] [place] [address] CMP Standardon 01-06-2023 eGFR Non AA >60 Invalid Interpretation Code [facility] Comment on above: Performed By: #### 1 1426970, 8754588, 3653203659, 3973273937, 1405700518, 8729014207 ####[facility] (DEFAULT)[address] [place] [address] eGFR AA >60 Invalid Interpretation Code [facility] Comment on above: Performed By: #### 1 4686963, 6255099, 0849410536, 5138756987, 6306794076, 5064486623 ####[facility] (DEFAULT)[address] [place] [address] 63587 Albumin [Mass/Vol] 4.5 g/dL Normal 3.5-5.0 [facility] Comment on above: Performed By: #### 1 2804843, 2775446, 4627005634, 4614286184, 5767075585, 2536566791 ####[facility] (DEFAULT)[address] [place] [address] 27314 Albumin/Globulin [Mass ratio] 1.3 {ratio} Low 1.4-2.6 [facility] Comment on above: Performed By: #### 1 9738701, 2853016, 0625565170, 9136201155, 3457805387, 3333478057 ####[facility] (DEFAULT)[address] [place] [address] 98902 Alk Phos 66 IU/L Normal 32-91 [facility] Comment on above: Performed By: #### 1 6659360, 4118187, 0550134689, 2878717365, 7497443599, 0476979726 ####[facility] (DEFAULT)[address] [place] [address] 08794 ALT [Catalytic activity/Vol] 21.0 U/L Normal 8.0-29.0 [facility] Comment on above: Performed By: #### 1 9746560, 1518702, 1622219086, 0236484134, 1087364185, 7419929632 ####[facility] (DEFAULT)[address] [place] [address] 90887 Anion gap [Moles/Vol] 9.5 mmol/L Normal 5.0-19.0 [facility] Comment on above: Performed By: #### 1 9531655, 8798759, 2425821817, 3671821979, 4202869060, 4096675124 ####[facility] (DEFAULT)[address] [place] [address] 10405 AST [Catalytic activity/Vol] 20 U/L Normal 14-37 [facility] Comment on above: Performed By: #### 1 9166158, 6237523, 6448168076, 8749457089, 8362884152, 7898841727 ####[facility] (DEFAULT)[address] [place] [address] 52085 Bili Total 0.4 mg/dL Normal 0.0-2.0 [facility] Comment on above: Performed By: #### 1 6814131, 5049419, 8106722527, 5722474527, 6567302992, 9309231418 ####[facility] (DEFAULT)[address] [place] [address] 26145 Calcium [Mass/Vol] 9.0 mg/dL Normal 8.9-10.3 [facility] Comment on above: Performed By: #### 1 5824396, 8201362, 1912263810, 6359819871, 4568521009, 3759672482 ####[facility] (DEFAULT)[address] [place] [address] 78664 Chloride [Moles/Vol] 106 mmol/L Normal 101-111 [facility] Comment on above: Performed By: #### 1 9681397, 1958707, 1683567226, 4142542334, 1780036116, 1306239638 ####[facility] (DEFAULT)[address] [place] [address] 78180 CO2 [Moles/Vol] 23 mmol/L Normal 21-32 [facility] Comment on above: Performed By: #### 1 8602008, 6960819, 8634215972, 8824068307, 2311570616, 1804373571 ####[facility] (DEFAULT)[address] [place] [address] 43365 Creatinine [Mass/Vol] 0.73 mg/dL Normal 0.30-1.00 [facility] Comment on above: Performed By: #### 1 7980547, 0783324, 8103429687, 2303373567, 7179512164, 7038867972 ####[facility] (DEFAULT)[address] [place] [address] 45030 Globulin (S) [Mass/Vol] 3.3 g/dL Normal 1.5-4.3 [facility] Comment on above: Performed By: #### 1 6500321, 0795279, 7189296235, 8715151817, 0569332994, 2853045862 ####[facility] (DEFAULT)[address] [place] [address] 67633 Glucose [Mass/Vol] 95.0 mg/dL Normal 56.0-144.0 [facility] Comment on above: Performed By: #### 1 1039684, 9761545, 8154042516, 3601471192, 9758884537, 2606379451 ####[facility] (DEFAULT)[address] [place] [address] 15741 Osmolality 269 mOsm/L Invalid Interpretation Code [facility] Comment on above: Performed By: #### 1 4600377, 3373017, 5181031828, 2813477756, 2363348639, 9528227692 ####[facility] (DEFAULT)[address] [place] [address] 48794 Potassium [Moles/Vol] 3.5 mmol/L Low 3.6-5.1 [facility] Comment on above: Performed By: #### 1 [id number], [id number], [id number], [id number], [id number], [id number] ####[facility] (DEFAULT)[address] [place] [address] 82279 Protein [Mass/Vol] 7.8 g/dL Normal 6.1-8.0 [facility] Comment on above: Performed By: #### 1 [id number], 2244776, [id number], [id number], [id number], [id number] ####[facility] (DEFAULT)[address] [place] [address] 55727 Sodium [Moles/Vol] 135.0 mmol/L Low 136.0-144.0 [facility] Comment on above: Performed By: #### 1 [id number], 3448704, [id number], [id number], [id number], [id number] ####[facility] (DEFAULT)[address] [place] [address] 92865 Urea nitrogen [Mass/Vol] 10 mg/dL Normal 8-26 [facility] Comment on above: Performed By: #### 1 8502993, 9245934, [id number], [id number], [id number], [id number] ####[facility] (DEFAULT)[address] [place] [address] 76656 Urea nitrogen/Creatini ne [Mass ratio] 13.6 mg/mg Normal 4.6-16.2 [facility] Comment on above: Performed By: #### 1 [id number], 2167150, [id number], [id number], [id number], [id number] ####[facility] (DEFAULT)[address] [place] [address] 15993 ED Clinical Summaryon 2022 ED Clinical Summary [facility] - Emergency Department [address] [place] [address] ED Clinical Summary PERSON INFORMATION Name: SHEYLA LEA Age: 17 Years Sex: FEMALE : 2005 MRN: Acct#: Visit Reason: Abdominal pain; ABD PAIN Arrival: 01/06/2023 19:25:17 Discharge: 01/06/2023 20:52:00 LOS: 000 01:27 Check In: 01/06/2023 19:25:17 Checkout:01/06/2023 20:52:00 Address: [address] [place] [address] PCP: KEVIN STOKES PROVIDER INFORMATION Provider Role [...] Home PATIENT EDUCATION INFORMATION Instructions: Constipation, Adult, Valu-vd-Hpdg; Abdominal Pain, Adult, Nzis-cu-Uaav; Abdominal Bloating Follow-Up: With: Address: When: KEVIN STOKES [address] [place] [address] Within 3 to 5 days DIAGNOSIS: 1:Generalized abdominal pain; 2:Constipation Patient Understands: Yes - Patient/family/caregiver verbalizes understanding of instructions given Comment: Normal [facility] ED Patient Summaryon 023 ED Patient Summary [facility] - Emergency Department [address] [place] [address] PATIENT DISCHARGE INSTRUCTIONS Patient Information Name: SHEYLA LEA Age: 17 Years Date of : 2005 Reason For Visit: Abdominal pain; ABD PAIN Arrival Time: 01/06/2023 19:25:17 Primary Care Physician: KEVIN STOKES Attending Physician: Ean Solorzano MD Comment: Visit Diagnosis: Diagnoses This Visit Abdominal pain ([id number]) Constipation (K59.00) Generalized abdominal pain (R10.84) The Pharmacy at [facility] is open Wednesday through Wednesday from [...] alcohol and/or drug addiction problems; contact the [facility] 07/12 Crisis Hotline -Text 3PESK to 844760. If you received any narcotics, sedation, or [...] legal documents With: Address: When: KEVIN STOKES [address] [place], [place] [id number] Within 3 to 5 days Medication Information: The exam and treatment you received today in the [facility] Emergency Department were for an urgent problem and are not intended as complete care. It is important for you to follow up with a doctor, nurse practitioner, or physician?s oncology physician assistant for ongoing care. If your symptoms [...] so we can reach you if necessary. [facility] Emergency Department has provided you with a complete list of medications post discharge. Please inform your home theater experience expert/provider of your visit and for further instruction [...] in fat and sugar, such as: ? [place] fries. ? Hamburgers. ? Cookies. ? Candy. ? Soda. ? Drink enough fluid to keep your pee (urine) pale yellow. General instructions ? Exercise regularly or as told by your doctor. Try to do 150 minutes of exercise each week. ? Go to the restroom when you feel like you need to poop. Do not hold it in. ? Take avvl-gwl-yzjegeo and prescription medicines only as told by your doctor. These include any fiber supplements. ? When you poop: ? Do deep breathing while relaxing your lower belly (abdomen). ? Relax your pelvic floor. The pe (more content not included)... Normal [facility] 01-06-2023 Tube Collected Yes Invalid Interpretation Code [facility] Comment on above: Performed By: #### 1 [id number], [id number], [id number], [id number], [id number], [id number] ####[facility] (DEFAULT)[address] [place] [address] 26750 Test Urine 1on U Preg Negative [facility] Comment on above: Performed By: #### 5 [id number], [id number], [id number], [id number] ####[facility] (DEFAULT)[address] [place] [address] 32876 U Preg Internal Control Pass [facility] Comment on above: Performed By: #### 5 [id number], [id number], [id number], [id number] ####[facility] (DEFAULT)[address] [place] [address] 57455 UA Mxved9yt 01-06-2023 UA Bacteria Trace [facility] Comment on above: Order Comment: Urina lysis Microscopic order added on by [employer] Expert Rules system. Performed By: #### 5 [id number], [id number], [id number], [id number] ####[facility] (DEFAULT)[address] [place] [address] 57531 UA RBC 3-5 [facility] Comment on above: Order Comment: Urina lysis Microscopic order added on by [employer] Expert Rules system. Performed By: #### 5 [id number], [id number], [id number], [id number] ####[facility] (DEFAULT)[address] [place] [address] 73409 UA Squam Epi Few [facility] Comment on above: Order Comment: Urina lysis Microscopic order added on by [employer] Rules system. Performed By: #### 5 [id number], [id number], [id number], [id number] ####[facility] (DEFAULT)[address] [place] [address] 19719 UA WBC 15-20 [facility] Comment on above: Order Comment: Urina lysis Microscopic order added on by [employer] Expert Rules system. Performed By: #### 5 [id number], [id number], [id number], [id number] ####[facility] (DEFAULT)[address] [place] [address] 29887 UA w Culture if Ind Standard on 01-06-2023 Breakpoint UA Normal [facility] Comment on above: Performed By: #### 5 [id number], [id number], [id number], [id number] ####[facility] (DEFAULT)[address] [place] [address] Color (U) Yellow Normal [facility] Comment on above: Performed By: #### 5 [id number], [id number], [id number], [id number] ####[facility] (DEFAULT)[address] [place] [address] Culture? Indicated Invalid Interpretation Code [facility] Comment on above: Result Comment: Resu lt created by rule GL_MAGR_ADD_UA_CULT Performed By: #### 5 [id number], [id number], [id number] ####[facility] (DEFAULT)[address] [place] [address] Glucose (U) [Mass/Vol] Negative [facility] Comment on above: Performed By: #### 5 [id number], [id number], [id number], [id number] ####[facility] (DEFAULT)[address] [place] [address] Ketones Ql (U) Negative [facility] Comment on above: Performed By: #### 5 [id number], [id number], [id number], [id number] ####[facility] (DEFAULT)[address] [place] [address] Micro? Indicated Invalid Interpretation Code [facility] Comment on above: Result Comment: Resu lt created by rule GL_MAGR_ADD_UA_MICRO Result created by rule GL_MAGR_ADD_UA_MICRO Performed By: #### 5 [id number], [id number], [id number], [id number] ####[facility] (DEFAULT)[address] [place] [address] UA Bilirubin Negative [facility] Comment on above: Performed By: #### 5 [id number], [id number], [id number], [id number] ####[facility] (DEFAULT)[address] [place] [address] UA Blood Negative Normal NEGATIVE [facility] Comment on above: Performed By: #### 5 [id number], [id number], [id number], [id number] ####[facility] (DEFAULT)[address] [place] [address] UA Clarity CLEAR Normal CLEAR [facility] Comment on above: Performed By: #### 5 [id number], [id number], [id number], [id number] ####[facility] (DEFAULT)[address] [place] [address] UA Leuk Est SMALL Abnormal NEGATIVE [facility] Comment on above: Performed By: #### 5 [id number], [id number], [id number], [id number] ####[facility] (DEFAULT)[address] [place] [address] UA Nitrite Negative Normal NEGATIVE [facility] Comment on above: Performed By: #### 5 [id number], [id number], [id number], [id number] ####[facility] (DEFAULT)[address] [place] [address] 48774 UA pH 7.5 Normal 5-8 [facility] Comment on above: Performed By: #### 5 [id number], [id number], [id number], [id number] ####[facility] (DEFAULT)[address] [place] [address]108 UA Protein Negative Normal NEGATIVE [facility] Comment on above: Performed By: #### 5 [id number], [id number], [id number], [id number] ####[facility] (DEFAULT)[address] [place] [address]238 UA Spec Grav 1.010 Normal 1.001-1.035 [facility] Comment on above: Performed By: #### 5 [id number], [id number], [id number], [id number] ####[facility] (DEFAULT)[address] [place] [address] 16104 UA Urobilinogen 0.2 mg/dL Normal 0.2-1.0 [facility] Comment on above: Performed By: #### 5 [id number], [id number], [id number], [id number] ####[facility] (DEFAULT)[address] [place] [address] Urine Source Clean Catch [facility] Comment on above: Performed By: #### 5 [id number], [id number], [id number], [id number] ####[facility] (DEFAULT)[address] [place] [address] XR Abdomen 2 Viewson 023 XR Abdomen [...] Maciel MD 01/06/23 9:29 pm Technologist: ELFEGO [facility] Coding Summaryon 12-21-2022 Coding Summary HTMLBase 64 MdbhxlcnVFa5yQw+PGhlYWQ+PE1 CCWQdH88jdRUkhE0pR2BVMZfJUp wfDKHUXDuWCwSjufGzDO8pnCUqJ XJu IC8+KQ3zUJQoEgvstKPex4O3yPK 1H02uqx9nALpsxUJ5GJKyUrQekm ppi8sipQy8LAcfCaisLvRx JIMweB07WLQ2nE87Jb73uDLlmTW ss1bxpAt4KmRzOXCwULO2rErdGN xhd1EhKXGvJ20qqOQtr0H4 OEKxuZfqzTQmWyLilZY2bP1oHLv nwiqye1nccvpjJqt7ow22fJVyi6 S4gIT0G8YzdvI5FYPljOQf KyjusTDEsG4bihqyo4orgdzjPlE kEMOyCPy7EHy3RFVbkWjhGyQbSO 75XNZ1TRHlzfZyP5AfFRJc nXfhPtS6h2M3Rd2OX1YIMfcdZ1P NTUFSWTwvdGQ+MD31zo12U9MkXi cnOyt4TKAqZBD6zRP7eC7y FOSyIFdnh7K1mXU7N4RfuoOwfr3 cq7zxQOSvTUekE92btFMjn0P5WN IeeKF4TBZauXvaUfJvkE77 Oyc+QERdqDoin1HqSaawg5oxk3n awWn8DeecRBRxuoNjcOsnNYU7c8 MfPm1aMDXenLC3oGG5yC4m ZrVcAhB8JFfrX684FyUfkTWcAwk cP25hN7OdbLJ+WNKfEgq8RIHlaH zxJH3qJ7AgOBVrkyzutSLv cZgeWN8aQHFefemvHAOgyZ6fNOG tI0z8CeUeEiW3CZuiU5CsJZZymi onLi02gQ0lWnGcMnM3QPtg H3OezsK5NQPfiZDtATiqGGB8N16 rf6B0VSAdWNZnDWL5xJX2qV5bmZ lnbjogbGVmdDsgdmVydGlj FLarTMtdC638SCRndXvrHyLsWLr uZyBEYXRlOiAgMDgvMDcvMjAyMz wvdGQ+OGBaOSY0bAatAJYg bPEfHQdtBc6rtCippXppLM9uXFU ekatcTPBcgR4gFVKstISmdNwmRB 0bYEEbmdpip300AyMuBZC0 ZXGdfGInR4LxbC8fQkMdCUQfGSJ gT5WrkYPvWDwhM352FOfhDxP2DV PufmSvM5OySWHpwYcvUzO6 a2I8Bi0Sc6KhgktwZ3WebKTqRqI hTxxgGZp4G8NeGwyfqFS+PC90YW FrWB95DDt2UMH6mFasPJng BYEuC0DnaH0hNsJcEHRzONNcTqr +PHRhYmxlIHdpZHRoPScxMDAlJy LvyNfxGO0pEy2dGHAhKGCd bCyhiKAvBwWwt9euCXMlOOjjED4 jdTcyL6ApbYK2WPXgb7t1Jn57S8 7dV6QupWT+VAHofGD4oTL3 dE7wLnHyEbG2NFiiS303KdWzkXW iWowvq8eeb7qnnXa1KfP2BJBflq XrxYrqBLD9r2BaPa82P93b IHdpZHRoPSIxNSUiIHZhbGlnbj0 reF4eXg3+HGTmdZA3sHH9sL8jWq CzYcA5JXhpM169NqDuxAGw Mpmjq2lnd1urnEe9FsJpOPXhnwR ukArhYFC8d5LmUm48H0LhnUupz6 GnHix5pg18nSWjp0L1zRH2 H4XwEXTyjiguwCAfsCihVD1cZEL stgxvYCGehU5kEWSvT9z6PhSdKb G3BAccG8MhdtD7MWGczSTj IRRxpVTNoT5kgzbps3ckdgacNvD nWRJoSHt3PCy2LQGjoUezUlKzRI H2AtR7CEO5cFRrvS4deYze vzmioF0kVnv+GYH4dUBjbXXVFZ9 lOjwvdGQ+DPHdLEC3mKaeZPmdMS DkfC0mDUBwO0o2HgOlImB7 QNtdF8SoqvL2PHZghUIqCNMvxRS IcI7xgsuwa2bwhqmeTcVvMHWdVQ k7MEz4FISlmIchMsSxUER7 TyX6AVJ5oJEtpK2ovLjqnfwojB3 wOyc+HinnqOolFVD1CEu4O4QtZl j3DOKrnOgiMV5aeCVjVTmz Pe9jzLwbxKphVQ8yCCIsuxcbp62 2KvSgp6ylPQTdkQKrIJnbRPV6J1 6sw7H9VNIlEEIeLPC3mNF5 zP8yfCfjzynxzCQpzEixpgBcoAn nNHwsMFieO725WILweGrtYwUeEP q9C8QsFqc9EYPwnCbdFJ0u nSWaYAncZu1olLetkKykWG2oRZE qwluyq164UxSmz1tcTQVbmPTmAT ckZCE1W18la6H3CWOlYJRt BAC3dZC0eY5gvPandlccsUTdnXg vosLtuWhnAKglVLjiL454TYLhpA eaPbSfuCb0T7AlXoz2JTXs eAtaXC3gdQLjYUrdKh4ysCbfxMe pBP4iMWTxpiucf923YfPzg6ffVT JybEUlORnoMOC4W22qv9Z9 DKPlEIXvBHT8dQJ8bH6ffWzlcqr gbGVmdDsgdmVydGljYWwtYWxpZ2 46IHRvcDsnPlBhdGllbnQg CPglGKj6B2XqZoahtMP+QD47JMJ pXK95iFCmaIRdp5znfBz5NdXtMB BmWNO5rQgoZVank1MgRFKa C47ycHYzo6E1LLPdjNjrmPKtWbT rjQS8dG0rPWlipykuf6pmjrzgLg zsi9lvjx19jE66E23xIMwi LRTkIPFfALFaAEZbsMktke7huK1 wIi8+HPBfqUT2aIU0lB5cCLEbNj D2BKdzU568FxCrwTGpFlqp f4cvj2lluAj8ApG0FAChsqIujJd wCNW0j7OtYb02K82eOVyjHKIkUC NgGOXjSJRzkSgzxp9mcO8t Ii8+YCOuuUB2vZA5tX8hBrXkBeX 0NYthN254WuJqtUWoFipqN62eU0 JvdXA+XHYfZdi4WDFpyNaq AM9lrGMcSGrpPx2yOVX9QvSbNtD cEKefQ9TlACOkfmpoiyrceIC7JV WmSURaaC10Cp6vnQxhFEVl oGQLsH1ncgcnz7lzrnhlDgIbLRT oUCe5JTx5GZTtqGbaQfUwSVT0Jn L2FFT1iTTieO2eiHrntepn tK9cC1AiYIElfderXh19fI4yWdK iSuN8RBfuVsw+KA9FRZGQZOQmPJ oUPg3WGQfACVKTLLuNTQ5M UeoUFX26MW60zTPuc0P8nSQ0U0J aKCGlfjwqyjeglCD9QGEeGIQybE 32cRYiXLmkIf9io7H1h048 WQYlELNqxV19Gw3ksVhzCMQqeHZ YfR6wbaeyh7sbldfhJfGyTDYqBA g4ROm4SXNzuGqdVhFjONO6 DqD2ATJ2pSMdwZ2exMhuhihwjW1 wOyc+MDIvMDkvMjAwNTwvdGQ+PH JwNOJ8uPulKLwnWRXsaO8d OJWzU3s3SrHlGrL3QBqfN0NgKWY cnsmgPt50gQ0uGvYbZhW1TYgcQ3 GudzE2FYEdxAWkWOrcQVQ1 M31aj8S0SCGdAGVqZZR4tZH6wJ6 hbGlnbjogbGVmdDsgdmVydGljYW nzZKbsR576NZFlyXveLtP9 RMheMUBzCJ91ZC60zKJjv5J5oHM 1D1TaQVBrhfquhqdjhTW9BUCeKF OvvG16gAXgJZzjPk5pw4R1 t847QHIrMPNavE60Bq3jdYxoXBA nvAAHtX4oetgku6ugpvaaOvQcRM HoKIk5OKz7OQPyrWygUwZx NGS9KgT2ENC5sGTtmJ0ciLsdgpr naB8yOjz+XpUGXIbWGS86ML50cW Dsh1N8hEM5M1KwSQNtbcyp ekoclBU1LUWeGVQqfH59uNVePLl lFt3hz5S9o155GUBsSHTukV44Kb 6zlTgtIYUvuWGIzA3ipjrb q5tpvbvdUeBvQKBkYDh5SLh9HEL qgNqePuWeQRJ9EdN7NDL6bBBaiH 9ijTkausajtQ4lUqy+T1A8 Z5YgPhgxtHZ+VO13NZNbVX56hKF lnLRwy8lvyOx5PaDtHUNcHYM2iX wsACfgs2VoBJCdD67cgZDh r0R5OMHdbJwddGVaEpXhpJF2wL4 vQAaruphht5joweejLqmtb8vuwy 08sA73M06nNPevQKZpKYTu NCUtVUCnyKlhwf2yxT4fKy3+PGN ljIT7lCH6cF0aLuMcMtR0VUrmW8 00RfWzwQXoSewiy4zhs6ro rAa1GcEvNDEnuaHaxCxsEUN1z4S rFp17Y09gACnsOKDkJOKrXLScAD KihJpsqr1fvD1hYr9+PC9j h5hhzm90uT33zQI+ELHkFPR8wXk bSZucKPLzcO2vBOmhGaO2QCBvUy ZzbT26nRIzQMtxEg5fyKxq zHhaCI3jNNItktkae425TaKdy0q oWVDteTRhYVpeIAD7E31to6E2WZ FmAIGbRAR2jJG7wW7nuAem bjogbGVmdDsgdmVydGljYWwtYWx vA282QKKwpOdwDpUnqYUrH2uudd WBMF9cZzgeaNI+PHRkIHN0 aDpkSFegKFCsdQ3jTMHkU9b7AlN uIpC3IQorX2KxutG3MDDmcKUaOF JzqFIYrU3ihjojg9qagsyh TeJaJPDqVGy5DWn1BSRqcRgfIfT iVGB5FcY4DDQ6cBRziI1fnNfzwm wktD5wKja+RklOOjwvdGQ+ AHNbWWJ9oBmqNDmfPVBteP3qBKC kO6t4AeNiPuD6ZYseT9FpkcC3KS XoqQAeSQPmiSZJaH4cyord f0moulyyEhLiREUvBCr9TDx5NJY lkIhlXpWmQRY9QaF1DCR7wCIzcN 5nsDybjuctiK3uImv+TVJO OjwvdGQ+WBMsMEE0aDjfXKzsAUV kdA5gTVEwA5m3SyTmHwQ1IHmyT0 MupoS1GLGssWLnXFQrnGMM fL9hgvrdv8cthiexOaTjXFIrOBc 5SCd4RLVlmSdvGkWjNEW0FqU1MZ G6wVIioJ3gnAvfmfrmzE8a Oyc+VFL7ALV6IZ72FN58Y6HmTep vdGFibGU+PHRhYmxlIHdpZHRoPS szFHFaGyCzkRqfBI5fYh6n ZGV (more content not included)... Normal [facility] ED Clinical Summaryon 2022 ED Clinical Summary [facility] ? Urgent Care [address] [place] [address] Clinical Summary PERSON INFORMATION Name: SHEYLA LEA Age: 17 Years Sex: FEMALE : 2005 MRN: Acct#: Visit Reason: UC - Ear Pain; RT EAR PAIN Arrival: 12/14/2022 18:12:52 Discharge: 12/14/2022 18:47:00 LOS: 000 00:35 Check In: 12/14/2022 18:12:52 Checkout: 12/14/2022 18:47:00 Address: [address] [place] [address] PCP: KEVIN STOKES PROVIDER INFORMATION Provider Role [...] Adult Follow-Up: With: Address: When: KEVIN STOKES [address] [place], [place] [id number] DIAGNOSIS: 1:Right otitis media with effusion; 2:Left otitis media Patient Understands: Yes - Patient/family/caregiver verbalizes understanding of instructions given Comment: Normal [facility] ED Patient Summaryon 023 ED Patient Summary [facility] ? Urgent Care [address] [place] [address] [id number] PATIENT DISCHARGE INSTRUCTIONS Patient Information Name: SHEYLA LEA Age: 17 Years Date of : 2005 Reason For Visit: UC - Ear Pain; RT EAR PAIN Arrival Time: 12/14/2022 18:12:52 Primary Care Physician: KEVIN STOKES Attending Physician: Chetna Rodriguez PA-C Comment: Patient Education With: Address: When: KEVIN STOKES [address] [place] [id number] Otitis Media With Effusion, Adult Otitis media [...] weeks. Home care treatment may include: ? Bcbh-fyk-yxjvtbg pain relievers. ? A warm, moist cloth placed over the ear. Severe cases may require a procedure to insert tubes in the ears (tympanostomy tubes) to drain the fluid. Follow these instructions at home: ? Take gbpr-xhy-quyvsde and prescription medicines only as told by [...] provider. Document Revised: 08/28/2021 Document Reviewed: 08/28/2021 [employer] Patient Education ? 2022 Graph Story. Antibiotic Medicine, Adult Antibiotic medicines are used to treat infections caused by bacteria, (more content not included)... [facility] 11-13-2022 [facility] Telephone (ENDOMN) SHEYLA LEA ([id number]) 3 F Date Time Provider Department 11/13/22 DAVINA ENRIQUEZ During your visit today, we recorded the [...] Encounter Status:Closed by BRAXTON LAMB on 11/13/22 [facility] Coding Summaryon 10-30-2022 Coding Summary HTMLBase 64 QjzkywikAXa8lGn+PGhlYWQ+PE1 FDLHmX30eqOBmmF1aF9UQGFsSOe yhKDWLYVtDQbOhuxQuEJ7ovAZsF XJu IC8+QB5bNVQxHklkwBNop2Q1hRK 4R16pbz6sQUacrBG9YXPsMrQbui unh5ukbAz4MWeqViwvYiPn TLDmsN32VRB0iP27Av47cZLixHR mn9pmwYn7YtZgRWMvWBH9vVajHY may2UyYZYjX54lfAKmg8B1 XROdyKnnfJLdBdLwgQK1vF2iIBk ysfwjo4hykuatKiq7by19lPRcn5 C4jOP7E6JebkX0OBZmmNFa ByirsWBIkT0yrywni9tovabyRpO bJNNsQQs8YHe0NCCwbTdjExVvKO 03JME2GXAmmsGvH3AaRMMd qChjPzZ2y5B1Cy6ED4LKCpylO5F NTUFSWTwvdGQ+CC92wj04H7ReGn grQvo3CEJaBSZ0tDO6lR8t FSJpCCcmj0W2nNN8M0PyvlVzrj0 mc4xfHGJsCNgpO62rePGjx6J8AQ MdzKU2HMIyzYdoBrNbnH78 Oyc+MQOngFclz5BaZaecr5emm2k ukFy9PlarERGnoiNvvTkdQHO1w8 IdJo3sIXBonWW1qMP2lJ4l OrNqHtD1MMceW949KhXamEDcJte fT63wT2NykKN+MVSpFwc0VBEqlD reLL6hE1SoUITablwhvAHz oIwhHB6oUAOzcrohUSNftO4jPFH dW6w8YnWnArY8JLctP7WtZEWgkd fsFk32zQ6fVsMeGcO5FLzp H9AttjB9JGIobRCkXYgcXEV1G51 jo6P7PQKtBXDeESA4tIT0iX1lvI lnbjogbGVmdDsgdmVydGlj HLkvZJfgV554SHOxqFqrOrShZLf uZyBEYXRlOiAgMDYvMTYvMjAyMz wvdGQ+OYToYHC7oOtyMZUz bAHoBItcXe1icKafsAelSG2cMHQ fewudEJJeeW8vZFOmzSUdhMpoEU 4mHDDwknium281TrUyPPK4 ZIIcaTKvE7UdlL6rGhHaQRVcZBG kR7OqfFXgDZicV543OKsnTvI2MZ FdjvJaR8HvXJNxpLqvZtH4 q4Y6Mb5Fm7UmrholC7KcwNSdHzN bVvnkLXa7Q5NuDohuvRU+PC90YW LsJX41ZIw5HID2iZueOIjt FDHkP2ZvnF5cQqLzGGNiLXYeAmn +PHRhYmxlIHdpZHRoPScxMDAlJy LebBsmPR7yWd4sQCAkJMYd gWgphDEcKaJhx7qdNSRlDOylIY4 jaYqoZ5MliQO0YFImv8a1Jf37P0 1vP8OkrZS+KNXjrUS6hIU5 aG7oUlBmRhP2RMssG096JtNdlKL kHdckm7uge5dsmLu1CvZ4VWBrkh UngShaHIM6j6OnSq43N64w IHdpZHRoPSIxNSUiIHZhbGlnbj0 gwP2iBq5+ZVVezNK7hVO4qG4eFc SdTuM6MLkgZ312TbLzfKLz Hjriv8fxz2kzzZl2QiXwFXWvbpO mwGorKEJ5l1PyRn35N6KlxBzxk1 ChChw4ae56iTAlx9R3eUT3 K7FjIRWkebimfEGoyFnlTG4uPAC jsjziVAJszS9xMSBbN2n6CjZbYc A0IRhlW1ViibK6EGCkeVPg RYMloIHMuP0wmzzmm1zeoyvjKkL xKOZbZZx2QPt2UTFkvHobDbBeLU K9NmH3JQB3xGXieV5isJrr dpgdrV3lNrk+QOP7lEFvrSFAER7 lOjwvdGQ+DKGqOJA9zAkuLThfNC RdfH1mKLReX0h1AxZfKjN1 JEkwQ3PdmdK7YDQqbAVkDBExcPX QhK5qjkbrv9jsbohmBeHsKJUuRH n5BRx8KCWnlIckKbJoIWR5 HsX9NDR3xQJzkU1vpTisvmxszP4 wOyc+MzrvkHfeIZN9XFd7F3VvOz a8KUZzmXfjOP4xuIFtXZsd Je5obEumsIibII3nBVLdkopsi65 3GuUcj8ndEQGpuXEuFEtcKOV3E0 4zl4L5IFLqXBHfDKM4fCF6 jF1qiJcbbcnajHKpiJunrgZugWr aJLldNXemA391RCOdpDpdXrBmDH w3C5HnIwi7TAUijCftDA2c fLLhOXrkXy6mvHechUljRD7dNTY xuhopd999TbBqb6kkQPUriWUkAF pcTDY2G22xz5U4EVQcEYFn WIC2xEB7lC7tePastglcaAWaaFd zvdZqbSahDDofBGrlF915XGPtjB plYqVbsNl6E5AjRvd5UMLe zMufVF7hzHFbXQopBj7bzVatpXg wTY9rZKCegysop076TvNpm5khXV UysSBbKWjhDFE5P89ys2T2 IXLfNKLhOBP2lSG5wB7mlTddudf gbGVmdDsgdmVydGljYWwtYWxpZ2 46IHRvcDsnPlBhdGllbnQg FQjbCIo1R6XqZrmeeLB+BJ09WYB uUR73eQKwpSNda0pxmKp1VaCdJM VhSIC2tJkeBDain8PfDESd Q07fcJVil2P1FAHrkYgauUImByC hkJK5kK4nTJqbneezp0gggyeiWo toe9eeww09xH84E79jNOha BTEuZXPmUGYsGJLvnZmpxw6lfF4 wIi8+ROIvpUU2gPL5oI4pBLZdHg P7MJjrC028YqXhsJXnGbgc r2ioj9gtkQb9TwH2MYAwaiPwgCy wGAN0b9DgAt42J21hQKzeAGFuTV OuIZDvNGEytUehik2fpY9b Ii8+UYQazTA8gMM4kY2nJaLgLmV 3GAmrH380NcXnsILwDoaaK06lU3 JvdXA+XSFkCjc9WCQfqSyx JE0ugHNdBGnhMk4kWLI7TnEnRuX yDLklL6PmUSAzcxuaqjvsgII8YR NyPHNysF95Cb0bnLatIRFk vPBWeT9vokrki1ctytdrMmLyHMA vNEp1CSr0JCIzqOaoOyOtOEH3Hy K5SBR5hQOhvQ5lzIfexfyk tC9oE6EePUQdhjgdXd34tA9jXcC gOnG0IYyaFko+VY8KIODKASDrHE kMZw9YOHhGVXCOORcPJY7J XtqQLL15WC96lQEhs8R7pLC9C3T fOSZlhoxoygyjaZT5WQXrKAMhqX 44dGLpFRmcOy2yz9O2g099 IOBuXVXmbX56Xn6xaWmvPJJbrWR YrD8imllku8fbrxgfZvMoDHCyCG x6TTo2HDXewViwUgQvJYD3 JkR7XRY7pEBmkH0mvZinedrsnS4 wOyc+MDIvMDkvMjAwNTwvdGQ+PH TiLTV5sGcfMGxzGRHadJ7a RLKcH3j8WbIyZcY2IDapG2IfBLR xwpkdDt65fS3aDnSaHyK6CNunB9 IyxoQ1GZMznJOaSAxwORI1 N99jq4W9AAAbBRAiIYS2cPZ9lH7 hbGlnbjogbGVmdDsgdmVydGljYW hhGBspB054AGFmgBmlFzZ7 KLpbXYGtUL50KT19bMApn5E0sGY 5S5WuVSZexbqupeibiNU6HNIaHU KzjT37iLNlMSxwWr5zr6U3 h848PMWhLICbfZ59Ja0vcDteNOW ieKGElS7ebtikh0jtlycxQnAaYO UhOPw8KJf5BGLcdDaeMxUl CZV1ThT3OTB7sTMeuT8feCmvmsn ohK3aLhi+HfDXVCdYNB17PZ37sF Xxq8K4uUV5U8BtONSxrikp xzmysYF4SMKiJOWykK35xLWtLHo lNi4nu7D6h506DIDjMYZsqQ93Rb 3uvIebJWMfbTXVfZ8pcjyn p9xtwixjXmOjVCMuMUk2KXn3AVZ kbFooWnTtVJP8XeN2RVO5jBYneF 6pnUyutgmiwO0pPum+T1A8 B1BgDspznXW+CZ26SWFiPT62oEF dpPDiw0etrYl4QyZsDGXhOYK3bZ ohFPpik7CmZPUsY32quENv g4N2XROtxWjwwEAiIlTdcJM3xV7 iNCcpxwspq0nssayxQxxlo5mnnp 32xQ12T81cWFlgGRInZGSw UOKbEPGfiFejfr1esU4sIz6+PGN mjQO9rBJ5lY7nXwPqGvM9AJrvM2 84GrWkdNLuFqilf3dsn5ap lIw9FmLaYBRlpaTkoQztZBW6q6A bMh31Y89hOItxERKvKNJvJLHqID DwoOmtwh9ioL9kSx5+PC9j x9gzri25oJ84fXE+SCArQTJ5wGc oSEjsHSTbdC5uIKzzHxY9BXSiDe OukK19fSKvYWcfTh6quRkz hBmnIF1cSOUjlunxe951FjGvp5j oGFUtnMDqYDliLQU5Z25tp0D7WO OyTEXdYOJ5jGG8kK4vaObq bjogbGVmdDsgdmVydGljYWwtYWx qF406OTCtaDprPgTezIGhW1yovj MYCY4aWlgcmJS+PHRkIHN0 tObjEIrnZZCwyR3cOQLqI7l7YrA jHzR5OExuM2BrewO9EUXugGDmJE VoeEHJjQ3uehxks0gbyqea EpVvDUYxFUq3AKp4VUFtaYxnOuC wEVB4IrK9IKY6rRKfwD6bpIdhqb aofQ8tSzk+RklOOjwvdGQ+ RGYnDQJ0kRvoLVpvHRZzeK9rVRV sB2v5ZkEeDzP6MCcjN8NfvnL8VJ NbbUOjIDCffVKXaT5joqzo a7bzkpaoXnQdEUQgJXe0LNl7SET rnPfiDfJjPSC6LjQ1CWA7bIPbgO 6wwEntdvbyfA6mAlw+TVJO OjwvdGQ+JXMsLWH9fYyeEIwbKRY xqB1bKBZqZ2j6ZzNrCaI7NGneG2 BkcgX8IEVilBBpQTCznKZJ iI4ntyfvw6jhpopkXqJkGZGzRTo 9QRe4ESAuhYijRpVsNXY5VlC6QB Z5zILkqN4awDqakgisbY3v Oyc+JZP8GUU1ST88VS89Z6XhIwp vdGFibGU+PHRhYmxlIHdpZHRoPS mhQEIvOkWztIinPB1cNe1i ZGV (more content not included)... Normal [facility] ED Clinical Summaryon 2022 ED Clinical Summary [facility] ? Urgent Care [address] [place] [id number] Clinical Summary PERSON INFORMATION Name: SHEYLA LEA Age: 17 Years Sex: FEMALE : 2005 MRN: Acct#: Visit Reason: Eye problem; UC - Eye Redness; LT EYE PROBLEM Arrival: 10/27/2022 17:44:34 Discharge: 10/27/2022 18:25:00 LOS: 000 00:41 Check In: 10/27/2022 17:44:34 Checkout: 10/27/2022 18:25:00 Address: [address] [place] [id number] PCP: KEVIN STOKES PROVIDER INFORMATION Provider Role Assigned Unassigned Power Ny ED PA 10/27/2022 17:45:56 Ellen Mac C[employer]AL [employer]PPLY MANAGER Nurse 10/27/2022 17:46:07 VITALS INFORMATION Vital Sign Triage Latest Temperature Tympanic Temperature Temporal Artery Pulse Rate O2 Sat 99 % 99 % Respiratory Rate Blood Pressure /72 mmHg /72 mmHg MEDICAL INFORMATION Medications Given: Allergy Information: No Known Medication Allergies PHYSICIAN DOCUMENTATION DISCHARGE INFORMATION: Discharge Disposition: Home Discharge Location: Home PATIENT EDUCATION INFORMATION Instructions: Corneal Abrasion Follow-Up: With: Address: When: KEVIN NIL[address] [place], [place] [id number] Business (1) Within 3 to 5 days [...] rub eyes. Please follow up with your internal medicine specialist or Dr. Mcclendon's office rafael, please call for an appointment today. Wash hands prior to putting in eyedrops. If any significant blurred vision, worse in anyway return for additional medical care. DIAGNOSIS: Injury of conjunctiva and corneal abrasion without foreign body, left eye, initial encounter Patient Understands: Yes - Patient/family/caregiver verbalizes understanding of instructions given Comment: Normal [facility] ED Patient Summaryon 023 ED Patient Summary [facility] ? Urgent Care [address] [place] [address] PATIENT DISCHARGE INSTRUCTIONS Patient Information Name: SHEYLA LEA Age: 17 Years Date of : 2005 Reason For Visit: Eye problem; UC - Eye Redness; LT EYE PROBLEM Arrival Time: 10/27/2022 17:44:34 Primary Care Physician: KEVIN STOKES Attending Physician: Power Ny Comment: Patient Education With: Address: When: KEVIN STOKES [facility] [id number] Business (1) Within 3 to 5 days [...] rub eyes. Please follow up with your internal medicine specialist or Dr. Mcclendon's office rafael, please [...] condition may be caused by: ? A inspector process the eye. ? A gritty or irritating [...] in diseases and conditions of the eye (blood bank credit clerk). This condition may be diagnosed based on your medical history, symptoms, and an eye exam. Before the eye exam, numbing drops may be put into your eye. You may also have dye put in your eye with a dropper or a small paper strip. The dye makes the abrasion easy to see when your blood bank credit clerk examines your eye with a light. Your blood bank credit clerk may look at your eye through an [...] you start to feel better. ? Take live-ugw-vjowqkx and prescription medicines only as told by your health care provider. ? Ask your health care provider if the medicine prescribed to you: ? Requires you to avoid driving or using heavy machinery. ? Can cause constipation. You may need to take these actions to prevent or treat constipation: ? Drink enough fluid to keep your urine pale yellow. ? Take gpor-enx-rdwygfk or prescription medicines. ? Eat foods that are high in fiber, such as beans, whole grains, and fresh fruits and vegetables. ? Limit foods that are high in fat and processed sugars, such as fried or sweet foods. Eye patch use ? If you have an eye patch, wear i (more content not included)... Normal [facility] Urgent Care Note- Provideron 06-13-2023 Urgent Care Note- Provider Patient: SHEYLA LEA [...] been selected or recorded.. Surgical history: Myringotomy ([id number]). History of tonsillectomy ([id number]).. Family history: No family history items have [...] given 2 (more content not included)... Normal [facility]gent Care [place] 023 Urgent Care Record [facility] ? Urgent Care [address] [id number] PATIENT DISCHARGE INSTRUCTIONS Patient Information Name: SHEYLA LEA Age: 17 Years Date of : 2005 Reason For Visit: Eye problem; UC - Eye Redness; LT EYE PROBLEM Arrival Time: 10/27/2022 17:44:34 Primary Care Physician: KEVIN STOKES Attending Physician: Power Ny Comment: Visit Diagnosis: Diagnoses This Visit Eye problem ([id number]) Injury of conjunctiva and corneal abrasion without foreign body, left eye, initial encounter (S05.02XA) UC - Eye Redness ([id number]) If you received any narcotics, sedation, or [...] documents With: Address: When: KEVIN STOKES [address] [place] [address] Business (1) Within 3 to 5 days [...] rub eyes. Please follow up with your internal medicine specialist or Dr. Mcclendon's office rafael, please call for an appointment today. Wash hands prior to putting in eyedrops. If any significant blurred vision, worse in anyway return for additional medical care. Medication Information: The exam and treatment you received today in the [facility] were for an urgent problem and are not intended as complete care. It is important for you to follow up with a doctor, nurse practitioner, or physician?s oncology physician assistant for ongoing care. If your symptoms [...] so we can reach you if necessary. [facility] has provided you with a complete list of medications post discharge. Please inform your home theater experience expert/provider of your visit and for further instruction on these medications. Any specific questions regarding your chronic medications and dosages should be discussed with your primary care physician(s) and/or pharmacist. New Medications [id number], [address], [place] [id number], [phone] moxifloxacin ophthalmic (Vigamox 0.5% ophthalmic solution) 1 [...] If a c (more content not included)... [facility] Coding Summaryon 08-06-2022 Coding Summary HTMLBase 64 MnfpdtsyJEx1wCl+PGhlYWQ+PE1 WDQDwG42rjVWnbJ3LT6wVZG9WFT QSPVNSWQ2EJO7adFA6GBvtP3Yqh iAv TcqulSVaMV55FAy7DJR2sWyjKCl crK4fsHJeI5y1NrAjNI63qQ16KS xpINPqKkF6NhAcsnaftDVf U8auWwKdwMIaZaq+PHRhYmxlIHd bMPXnJChdHWWuEqRowCbkEX5rCb 9yZGVyLWNvbGxhcHNlOiBj x4awLRJaDSzcNS2rgKztV3PtuMH 6LSKrb2n5An11wEY+JBSlZZU2jN arBRwub363ScOvo6qfTDT9 lFXyLYriSWJ2J84dy6C3ZDQfNMA pLGZ0eYU7lQ6dwBzrbjatX3MmnT JmCjJ4OIX6nQYhmJ6zkUhr gvvlvE0cFcr+K64RBC5JTBIMVT7 UWqw7G6ZjMlupmJT+ZM40RFXxWP 82mKTgjASvx9mrtNf2UqAq DTWoNRH5dGkjKAtol1YtVDKrL74 qzXRru1N1NHEkoAbuyTVeOfZngO T0xD8lCEpyfpjli0amibcs Qjdqq5cwdl25xI97Q47aAQcmWYV aFLV3DISwETPqhEwkdk4cfM5rIz 8+CNmog6kvr6yvjHi5KzDt JHSvblSslXhjHKH2c6DcFu16L5D mjCzax0GkCwt8fy12vXBpf5Y8dN J2FJywTLZlaY1cCFmdNiO0 OTOaMmYjhO73qJSzJKquZi2wjAz efWzkTK2xSUUlmfhdOVJluG6pCM UgeBKqkAdsRK5sOCSnvvqb t799DkAaMAH5LWWcpAAdR4LnsI0 fNiTjCFXdUZYyD1HnvTBdRUgyA9 89PHzfGzM9GGNownMeM2Xo OFXqxBjrNbR1g9F0Je3Kh7Crjvq sCHK0PYduLEVsKtQgUsYlRiM1V8 NkHii8KCOcaPybZC3hY2Xk WUUahsyxdsppfRJ4CMOzTHCkrT6 6xEZbVVavGw5ei8A7b801PTVaXP PwpN11Zb8wcPvuQAMoqLFC hE4uycdec0kmfpvjKkGyJTGmLBc 9KTr9TGLhhMbxVxRfAME1AdM1JM D8bJVhiT6taErcsmctaT2s Oyc+N76qxU5pYZO0QUJ2uaksYPR linOrPI00YC56Z0XaXzkhqUAncN U+CQCbjcAfzHegGF3iLsAl i5btd2PzDJxjA9EfSLNaHAkwBwy 5CJIdNFR9dGD1bB4kTNXtZFdka7 S6cFW9M7PvhkFesz1uk2sb ZSCoJHofW38yaCOrl8M9MEDgzUQ 2VWYtwMlmWjHzcL17Ozd+PGNvbG lgr0YdAktak9wpo2nreHt7 SzGjTGArazBuuHxsORO0o4RcBd0 4H47dPQuaWVJkDMHvHTWkDXXkfC yjcr7nbP3dSv6+PGNvbCB3 wWJ9wI8nZSXnWjQ9ENrbE483AwV ojLWtWhgln3yah1yodGk0ZdCdXN ZxakCiyGbnZEP0x8QgOu57 S51rZJxrRZGkAEHjDNYqCKGncOm qrn8geN6vAj1+CX6hx5wdgq91gC 48dHI+SAGgFSD3gEpjIAgt ZBSakE8eSQgtHrE2DBXqTgZkdE1 7xAXkGWraWn5coRjjpRsuVW9qCM Mzyjzqa129AaXxg2efHWXf eJCyYSwkUZC9T80av9C9XYXoJNC mWSC9rLF2oZ6qnSaizlknoDSivM kjwlPnqLnaFBlgYBqjA416 IHRvcDsnPlBhdGllbnQgTmFtZTo 5O9OfVhq4MDWzmZpjPV9tpXMxAT jnGw8ulSyvwDssXH0kJZUo bqedg259KbRvl0qmITXtcLZlXUj lEFE4B41aj5M0PQKyFHLfBNX8zF I9qH5iiAqcfvjyxWOsuAlf pnUzvLvwUVwpNZtcS177AUMpfTc lMbVayxRvSGLdiAL2QA40GQ92xG Qdk2B2gGD9Y8MkUWLqspob zyjnyXS9TTOwPPJwvB38Pf6okPk rBq5sGUTyEPJ1SSGifPTwX6GolY 9vZdLjIZKyHKYrW8QfvYNa HUmdG168DMcfIrL5UFInayLrL3W bCLKgbDshPoI3h2O8Kn6MX4W5ZE 47QK58nZQgt6W5lLZ7O3Ui DZCpfkewjogkmAW1IBXzUPZbdH3 6Xo1wcOuuEx9gFZWfQZT2PEKatZ IsO2QjlX4oPhEyLAOxAWXj T5RncBXeVCfyI620FCdrBpL5YTW tvgGkR8HuLFIoeGibMwY2t9U1Au 6YFFj2QL22ZV63qNSaa7K5 sVO0N7FsSHZqmfqivptybKC2XXN rRRFdaQ82Cb2usQlmPf9gEIIyDB F9MOXxrTTiF4PxkK4yJgEg KCNnMMOgV2IsiBBpCFngH349OXb wMzA8ZQZmttKqT8EnHUBczMnoCi O9j3L4Rv4XZXGwKB52YHZ9 mHQ1SL11XC44N9StIybqnEAluJX +PHRhYmxlIHdpZHRoPScxMDAlJy WolBrpGH4nWm9sGVWfXTQp fRrlmEOnWaXgt0juSCNuODwxUC0 lbBodA6LcrOC2GJWlv5u7Ck34D4 8sG7AwaYF+NHQopUK2yLP5 xW3nLmMpTsU1AIovH487QgWtmFD kWslcq2hxl7bdtJo5YmI2HJBdqb ZxqWptBWH1f1TrOu18U83d IHdpZHRoPSIxNSUiIHZhbGlnbj0 utQ5aOx9+YFVigXU1mMI1yK1dLx GbFdO2CEdtB110OaSyyKUt Bwgnz8xlj5tqyAw7GhTcTRLqjrM trEubJBZ5e9CaLg59I0BwwXnrz0 PuArm2pr81hAOxh2Z1aJF9 A1PeELTddxnryDApqLpnKI2wNBA iakzsGXThyK7iDAHjW6h4NgPqYj X4FOtoH2JfqqO3THTekEKm HFphALH9V60wz5N5JKAvTYJlZBG 6bLJ5kV8uqTlxgtmjrREahVtkde RszZlzRAicZXgrI012NMHn mUibSDVfxF4lUBOqaDEwpGgvTD5 pCJAsgaqiXusMTnOJZ0VQCLEHLB 7ZIQACG3QHNRhZQMDQHEIK RTwvdGQ+VEQqWPQ7uRqmRVcfTYU ttC3zCQGeC2o7CbRcIgX4ZInfX2 LqRQGgjeiaWl73sO9aRrUb OmB3YDpqD9FvjqP9HTOmrTMwEUv wLZD8U08am6S8BBOzICPjNDR3uW O0vM5cfKdwckqcvVRhbFix pkQtjLnsWFnaERznZ406VBDlgHz oHiLjZsM9CwHmUZE8U5IcDtw8PV YbdXvoND8ddSVgMRbgZf2m xHbbqCfkDL4cQTBgqpngRYZojW8 kSCVfaDEsbCvuYO0tEGZxhdhrk6 65OtJbCZS2ERZssLBzY2Ok sE1pRwYpHPSsGPReP7ZrwOOhPWs nY587TYrhKtY9MHCopeRkQ2RhBQ JuaXzcNcI4j2D5Ac0mPGNU ZWFyczwvdGQ+LWPwNEO1iYxnNJh oNPDtgD9aAABmE3n5LhEgIwS7DD mhG8QpBIPylpbaUr77sZ8v VdBtGlP1ORlsN0ViheL4ENVdeHA uZTqrDRF0F03un8F7YZMpINEvGG C7fBX5jL2knZxqglranMFz qKshcjLukCtjISdpMRchF763BJF vcDsnPkZFTUFMRTwvdGQ+PHRkIH T7bNokVEhkVJBoyA7nQASg J7u1VbWeWeQ7ZRxuG5IfOECkjev aCv97xN9gUfHbYmN6KGlhL5Uxmb C0FQFrsVKqFJdxEQG2Z53s i7K0PXEuCXMuXHY8iOU0aC4taOq nbjogbGVmdDsgdmVydGljYWwtYW tsS683JIFtjMbkVr1ZYM44 XW06B1PmQdtemXPpkSR+PHRhYmx lIHdpZHRoPScxMDAlJyBzdHlsZT 7yCb8qZJYsFMKxoMtrwCBp JeNph4vbTUGlZTzjOE9nzNrvW2D dkVD2ZUKwa2y6Ia78I91pV4ExsZ A+XPNybPO9zWX1cE9oEdSm ApY5MIbiG128SmZnuHUmZtfdj5q fn0kxaGd0SmOsMCGzzqKueAeoOV O1d2ElIl34A33fDDtpNCYs PMApWGKhDGLglVfhuz3uaR5lOv1 +NXFziDH8wZB7cK1qJaCqBwZ8PP xdZ065KqOdzKUvMjskU40u G2MpkSX+RNWpVyo6VFLejFsyZW5 gaSNoERlyTt7vQQK5JvKyQqKoKF wjI8DyDIYarghfifmroZE8 QBMqNJZyeD50Wt5hfZiyWb5yFWL kQVF3JHUyyUYxV6UzaD5nZtWfQO PcVEOfD4ZhpCAmDSiuB696 KZfsDlE1AEWopcGtS9SbETJlnKt qUkB6x2I0Mo3IgSvexNZnIV3fXw SwJQn0C2DzNpq5FMStoOvg JM5wzZWgRJfbPa7nnPephNpsKY6 oBEGjxxzia443DfKwa6ftNESwaV OsMFoxRYS8J67mr2K0QWRb FSUuTSI5vKW7fZ5aoRacvrzefLJ cuSpxahDdoTaaRLvhSSygT697JJ SzcXqnMfHQJai4C1FsCti5 PGYkiOlpPK9kbWGqMAchYo9woAd wsJwoGQ7tSOAyqkbzh850MtCeq7 cpKZArhPYtTCbfCLU0N87d h0V0YENrUXAaWAA8iFP4vF6zwSj nbjogbGVmdDsgdmVydGljYWwtYW wjY008GFWlpRqcGv1YXnw0 Z8FuAdf2CIChsIlyON4gbUCfSLv jEi5xoWmgbPfuAS7uYTWokoegy4 57KbOsw3ckAWIakTUvYYmt EIL7D88wf0H8ISClIKSbZJF4uHT 6bP6taVeoyrjeoSVvbIlxwzMyaN toYZkeZUvwY702FETqeXju PlBheWVyOjwvdGQ+NU80wn03Q6M tIiueUtr2DXDtFQA7gMK1lJ3eWV KsQIvbs1E0iLT0P4WwxmSe ci1 (more content not included)... [facility] Coding Summary HTMLBase 64 NblffszdNRh8wYj+PGhlYWQ+PE1 MPTQqZ21ndGTaiL3HD1mTZV4PNP ZVZOVOIC9JQN6fwZE7UAyoU5Ybw iAv KqjvhAOcZP44NFu2ARW5tSxmLBj gkA3dqXGpV9c0BbFvTD54lI05EE psORHeWsB6DlMopoprgSPy S3zpQzNgkKTzUno+PHRhYmxlIHd nENOlEFqyVWBaPrQduPddZM1pSn 9yZGVyLWNvbGxhcHNlOiBj k7vvTKAdWEqrXB4etUavC9CytKK 8TWFke9s0Il80qJI+NAPlJLG5yT axIHatt045LyZet3eoUQQ0 bHHoEGfkRGX6H44nr0S2NDOoPIR jLDQ7kOG6lO6vvUqisdekF3TlfK FyBxR9YGO7lTVfwN1cfNlw yogzoP6bQyz+A97QIR4NEPYTYH1 BEes4Q8PdJnkjqUR+CU14FJTeKR 50dGTsrQUen6tpzKe0UkCx EOSnPFN4gIksORgiq9BsKDDbD34 srHVjj9W0ZVHxsCfmeDApNgWmeP L0mS7wYGwhbblxl5knvcat Gnbju4arrm63bY96Y04eXOxjEVB hODA8DWToJHVvvElpmb9byM7eZj 8+DZfzx8fac5fxxSq6YrOi INFwmrGymGzjRSP6d2NjYo62G1Q ibRkch5MgKnx1nb15wBRpv6J0gZ T7CWucMXWuoC6uEHmwEsR7 ZRDhBaVwfK76lKNwIMuzBf4shTa wcVmzYP9nAOLkoganTYYtzK7fWU ArsTUuzJoyDQ1bNCHkatve y685ZtWoPSG2GHWasNMsG9QphV0 mSdStSOCySVGiM8CbfYRpZVaxO4 66AIhqHtT7QLZsbjDpY8Xo MCShrVjpUmI6n1O7Cs0Um4Dqdht wDZB3RSccWBPxVtHsLtSxVuU4V2 ReHpa6IEHjaUtsBK1nI4Ze BNTlbcahdxwyzSF0HWDkNOKvaQ7 1jJVeHCboXe3mu5Z3t771CHKlSP WrnT82Jy5hdOzpVBYigVDN lO0tejxec1jgqhdrEgQhWKGuRAr 3IBu1SRGtrIuvWwZpKAZ4MuW0QZ U0nDEhdH8pyQxlrkafxE6g Oyc+Q02ytC0lPRF2ERJ5cdveOHI ixzPrOW68WI63W0SgLtgzaGLcuY U+UTCvtmIztZpkQU5pXdIi v7isq1GxJTosD2HaJSSjAIchXgc 1CNPtGYH9gUX2dS5sSCVrBIoet8 H0cFJ2G2AcdwDawr0pe0hs NFCoNNdwN14woMDjp1P6FMUpuWK 9ZJYuyXdhSoHpgA14Ucj+PGNvbG azh0AyJrpbi8zyt8rayAa0 FtMoRWAxqtZmxZzgYWP1p0OkMj0 0I53iMRrrYKIjFPFcPXFxXEVbzE nlzp8dnS7mWf4+PGNvbCB3 iHI5gF3aZVZjFoB5MIpfF418UcO rvASnSbxzj4urq9yacMt0QoUtBZ QnvjVkjMphMRM1k6PnFw95 E42uFGonTWViHOOaAFLtGDTvzGv iea5zzQ1iKp8+QI9np2wiwr88nW 48dHI+ZOIcMEF0tLjhXFqi MZHoxJ3yGEpiPgZ0FULrUeGvdZ4 2dJDoSFnqSa2uoOabmMhnAK3dEP Tdxyueg690PnJih8ulTWZc xARwQUzgQLO4K02zy9H2EHXaUMO bUCV3aBF5jU2enYzbcfgioYPqdA yqtpSlsPbrDHaeXWdkY205 IHRvcDsnPlBhdGllbnQgTmFtZTo 5Q2VfZsx9QGLnsHgtBD1qhDVoLS vvTj1hiUqccEgtVA3vATMe ntpla255JsGoc4flHWQvcPHeQZg ySIF9H97iv2R5YRVjPWUaOZG0iF H0nO6mcVpvxsydfRJymUow pfDuvEgmPTwaJOscH812KYLrlSw jUrYuojDgZWXqwIJ2WK65TE33jZ Uvc9B1yVY6K9ZyKCPtctju zypzbOJ4ZNIaZEUtcE33Qy4fuDd eDb6oIJFiSKN8ZNQguOQeP3HfkN 8jAmYaQUPuUNQnE1LadWNv SIrhS672EHgtRpR4VTVsqqQqE5G rYHHjjRgrXeQ5n9X6Zm4IK5H1AS 75TC65iIBva1C5gEG9F0La XUWdgzmpvovsaOX9UDGmUOAmbX3 3Sl1vzDrvEo8jLMClZHU0JDHnfB EgW4UsxO7fJgXfAXTpALFh Y2IprFGhSTlrU285NRusBuX3GER iebEtI2ZbGSKnfHtxMuD2x1Q6Tl 1SZFc9PT60NL52cVAdf4M5 zNH1K5IvXMCriddgrdeqxAR8XGV tRDZqtQ39Hy1bnZtfNl7qHCDuMY B9PTAxaBYaJ3FxvD5pCkQd WHOdZAIkA1WlyRSsQGcbY696PTt lHkL1VRSmajGbW0UpHWAplSjoLn C8s9I7Ev5UZKOgSR24FJI7 tZT8ZV12OW78Y2IzPppblJGakAQ +PHRhYmxlIHdpZHRoPScxMDAlJy IbpXolSP4yRg1oLDWcSZNf dOmckNThFpYoy4ifFIYdJOefVC1 xzAxbG9WeyHQ1MLHpy6z7Lm92A9 0jY2YiaYM+UKFcsDN8vUZ7 qI6aVkJsHkA9ARqvD164HnInvNZ eYmtxy4pyy1dhoMv6DaC6KEEewf TqhXhtKHA3u9RwCy86G04h IHdpZHRoPSIxNSUiIHZhbGlnbj0 bbV0zJt8+WXGgpZX5hNI6dH5oLz ZdJgX2OFylR798JqBkfZYu Oxpgt7iyk3gdbQu5YkAbVUCjwgJ luHrzPVN0t5RuIj27W5FxmYcxi5 WrPfw4fi03fIDsy3S3tEP2 L5ZcJNPiyynojMLtpPviYW0vLVR nndogBZSkvP4cRMRmC3t5KeLwLd K9WEcxK0CyrcS2HXXmqJIb EZrcKZB6W69jh0F0DAJsNEZvOUF 8jVF6rS2cbImrxixtiQCokWvvma IzdWmkXAebSYcfQ813DHXt tDvbKPXueA7zXBZyoQHlgMphPE2 hTAMzbwxiYikIEeRVZ3TCISRCLZ 5SAGION8WSYEkLJNPYAZVO RTwvdGQ+MPJmDDX0pAtsAWoyVZO fhL9bLRKiE2u2InPrQsJ7KOylD6 JjJVNzfaizKp54bH6eEzOr KvT2QKobI8QecqC2ROPiwTNmEPc cTUR9Q51uz5F5DFJqOSOrXCH6hA U4wK4ieXashgjgqYYnrKzo ncWydVefYZvgWGqgG038YIRvxEn wHoKsLlO3UtArLHN1P7YbSas0WW QsmOeeUR7swGYwUZewRi7k pSxxaQihBR4dBCCutffsJZZhdG2 rUKCeeYKqzIshVP0eHVDetqbyb8 52HwKdCGX5IYYhuFPxX1Yp yQ3mLuJwKBAjNGRgY6FogDRbREq eT473TVsiJuO9WUNrtkNkH4GbRP IryWluCnL3y1C7Xf5bPBYL ZWFyczwvdGQ+IUAmWAC6dGrsXPt jBRJwwW6kEYPdR0f9MeXfJmC1SH tyE1JpPRJttppmEl71qA9o VrSjWnT2TKwmL5OnxeI4SVUqnQT sAKhvCRL3K93vc7V0QFBlBMCcHE X3hTR5zY3whUyvthycuAZy eCexsbXxcFopJYztBNptP937CUR vcDsnPkZFTUFMRTwvdGQ+PHRkIH M7tVdlZPjnORDnsO9aMIVv S0z9SzGjPlN0XBoaZ9HhRWZbmqr jVh51cP2qXjShZgL7DUpuB5Dpui A6ZVAwvUOgJBcsWTY1V54m w6B3HJKqXSFkQSA0pCA3oI2wyWh nbjogbGVmdDsgdmVydGljYWwtYW iwW470VWOybNklPsSqLCRi NF9exNuvxHJ+PT40jw38X6GsSaz gOfj8QUFvHCY5iTC8yJ3fXKAjYQ hdv2I6rOY5W3AtpuFfeh4f w9ijLSHbRDuhK33qcBNbr0T0MGQ dsDC7PYKehIxmPzMooK74Zed+PG SniEzmc0IzLzzrq7vxc2lm hXv9PeHbFGSdhyWoxGomFCD7h3C eCn37I08fLUmvYWVjPVPrOMStXX CquFbzal1vyF1nDe1+PGNv fCJ7hPL1iQ7uGoMjSzU5ABqoL05 1HsYwtJDpKrfgu6rzf5fscOj7Tf LhZPYsbvWmgBquGQG9v9Sz Yy12E1ZssDoak3KsXvx1mo97cYM hh8W4uLT0T2HiKTHuakmevBMxzZ yxMB7yTNRfvbvrZOWxbR0c HAXyI4w6GvKqJdA5MOfgW7XxzeH 6TRXlfPHuZELrjLRQbD8klpiop9 nhbeobMrTkJUQkNXm9YEd0 YVMgoNbwRlHlSBL1YaW7SET4yTD qbP2jpCvadcdepP8oFnh+UGh5c2 vvrRYkEK1zqWX9OV32JS01 lSSqy1N6vQF9A8TvPYFydnwwdec qfEP0HHVhZSPxoU51Uv4ceGvyDk 2nQJHwVYU2GNGulZBpK2Xe wB7gVbYqKGNlZZQpO3HjgVOaJNh lV661PQgaDwK3HCAtsxEgR2AtDG FobGgqFwA6r2Y9Ph5YBI39 UY52KC65mJPmf5Y2rHV0E0RqHEY aknccayjgxQT2IXAbJLHpfV96On 8ipChjFo0xTBOkLPI0JTAz wGSjA1McsB4cQaCrDPDeAAYhK9T biHSlVOvgA248NNekSfD6AVJufb RgZ8JvOQOxtRzrDdU6y8M4 Gi2FWs59PR66IP37yYFwi1J7uSW 4I2NjBGZglbqrnphncBZ8HQNoWC OcsP12Ir4akLasFo5iUNEu HBH2LGBktNMmF1YcjY4wQgOzZDR lBMMaO6YxkUMfHImiJ315MNxkTx W4WXNlszUmR6EcSOFzbUzi WdP4v5Z6Za5RWOweeib6J0QbLuq vdHI+ZA15VDFgXN18yXZksPTrx5 gjnIm2PxVpQZInFGK8lGco PSd (more content not included)... [facility] Coding Summary HTMLBase 64 KhmanzhsQUl2rXw+PGhlYWQ+PE1 NYQNwK34moZJckX6MM6sPOR5CSM VRXHXWIT6YRT2qgTJ1LZxdG0Ibz iAv BhqwzLJaMH14LLp1JQE2tZmnEPs jpR3bfPEeF1q7PeNtVE27cQ10DG mcIYCeBcW7UvEhfsqfxOQx Y1wtSfGobNVhDzi+PHRhYmxlIHd lUJTpIHhaXBGcWsGebQaxNJ2wQm 9yZGVyLWNvbGxhcHNlOiBj w8ehSTNkTXnyAK1rlEccH2HnqOJ 5OTUov8k5Sn45oIO+WVFqDTA2eJ cbWUuum936SoOgg2ngRMZ1 bQNsGZciJGW6U57qs2Z5LSGdGDL iQOV5eRJ6uA1lcUnzfgfhN9NveL YlDhU8XVN2fBHxgM3qsWnz qrrppI5iUfl+M06VDL7YCRSIYC9 TMvb4C5SfUcelzXR+QK20KDHbSH 46aIYxhEGyc5nbfBr3InRq YZYiUZE4tRbxKMolg9CjYHEsT91 izQAnz9L1OXVbbUoqyPFaWfGyoO P0gO0kIEjfzfmgn8ayywjx Qxqgp9ffew80sL40J67sIBanIFQ aSDU9PYImMMJudVwmxi7bgD0xMt 8+VLnpd9mbc3sxlEz7KxEe LVSgycCfyZxjRRB4p3DeAr80Q2T oxAboz4IsYvp2em68aRHwy0M5bL I5UTmuLMCplI5mZZzeFcX3 WKAmLcAwpZ78jJWuOWpoAx8yqWt frWiwJQ3nWGVrjqvmHFZwzY1jOV IhyVHvdBqgCH4jKGXbefre w780AkSvPHY4GXZvsTVpK5HrwP7 mJzGjIHBkKWLaH6VhwUEzHGllH8 92RHadUeK9XHUeysDjZ1Xt YOUpiLucAvZ8f4X2Jq2Vy8Ffopu hKPV7RCcwZRAfDtXyEsYfDwL4F6 GwVxc5OMCwrIrtID5zX7Yz CUIdfxsdnbeqcQZ7UEDvGQGfeY6 7xEZuZCacVt3lc9C6s265YPVrVL XqkI18Zo3hfBxaNCLgnFBK iB9mjzuvp6belrzqKoCgLYDqUQo 5MUr2JICbqUhdSwKuODU8FbS1DK T8fKJsdL4pwEjeppxpqR8w Oyc+T42ilA1jZBN9RIY6tqirAFW ugpBcFG99IQ19W8TnCvkfxPBiyV U+AORyqtPeqZblLG0iRiLt e2bgs5HfXOezR0LdBYDnKGikUpy 4FGPgYOB8xRW8yN8uTPThEVqqo2 Q1sNZ0D3LbcjQzcm5cx5gv BQBtWIkiK39tuQOxa5X3BKRkkWV 5RYTvxPdgVoBtjU36Enw+PGNvbG ilm0YrSqcdi7cfh4sagXy4 JePvCKJnumEsrLeaPJG9s8KhCo7 0M44tCNveIZQmURIdPVXsAAVoxM hgis6phL3lVo8+PGNvbCB3 qPO4eC2uACUmGaQ2NTjvB912IyC bbKTbQoept4llz6dayZo7IxIsLP LsgaKtsKeeQNG4q6UfCj89 H44aKKifGENnQTRfDVItIRKzwEk ayx8ezB1hPu8+BF8bg5yygo01xU 48dHI+PUEgNGN0yTwnGBrf QUFbaG4tQWlwJaG0AXOwNkIkhZ1 7vCBgZGaxXa8ddOfbpBosNV3mWJ Kqwmgxm995QmFlm7rrESHr oAUaUEaaXAE7E59na0M8HYWxGQJ kFEX9cFD6qE1ogZelptadpRBvqG sndfFvzErkIVsrCUhgR193 IHRvcDsnPlBhdGllbnQgTmFtZTo 7S5ZoNba5AKIckDgjIC9jnFWxLC lqUy6wpQvtaHbtLA2gDVWs qdsai724PpTxm5cmNLWliWWmJPm xQPM4H52hs1Q5UTGzUPSvRSJ8pR I5gB0whGozbznooNCfxYkc bwMnaDviVSplTFfdY420LVCteBz jTqOdyrMiXSVdoSE5QP65LP74pJ Vff9T0aEW0E4KcDYBekynn fqujnTF0XZRaWLSqzP22Ng6ztSy hOa9wLMSfQOX2WGEsaABbO1DnrB 7eYiPeTRWtLLVnI9MdkXUu GQryM263FQtrToE0BGNubhJgJ0P dQFSxvYkmVsN6o4D0Pb6LZ6E8JB 55GI37gFFmq7B1xYV8B3Ak QNAlnwxpwbqikWG4SBRbGFVdpL4 3Eg4bnBjwWj7mFHCvWON2MTAbhJ GxE8GmoF5sOdBpITOjIVZt R5RjdMIkDRjtA331SUrjXrS7OLN chrUdY5InXPNwgEgpOsW7w4N0Op 0TGBi3OM51TJ39rHXyk0A6 yGQ9Y1KaEXDnfzrpsxiacIJ0IQF xRXIkpE60Fk3jfFokDu1kXZObWQ J1LPPbmFHzD4VnbF8bEeGq FHSuCBXlN2MykGVqQBdyO341OGs kKkE7YBLigrZiA2PmIZDebTbrCv K0f6K0Uf6CZPXgEE93ESZ9 yBU7ZV44WU23C4AdHrufgJWntZC +PHRhYmxlIHdpZHRoPScxMDAlJy IjpMhvIB0dXj6sCYRkJPIs kKndrESlXlRrc0qrBYTmPFdhJT1 fvPcgR5AozGK8TWQlk9c1Vn09Z4 0jT1FfrTA+RBFwnHQ9hHZ3 yZ9bXoShIyH7EEnvP196RoXwwNX lVhzxg7klu3gzhBr6XuS7SMVqsr OikBoiMDN5j7GmEr81N02m IHdpZHRoPSIxNSUiIHZhbGlnbj0 liG4cNf8+BVIhlGV3aSP9dH3pPn DcZdC7MSktB398GpQdgNKo Bqink4aqq8pxuAt5KgEaFEAjwlU rnJukQSN9l8KjEz60O3CbmRtax0 SkAdo3yw99oRKhj2N7qRZ8 N5LbFIXuskbzxSQwsAjkEE7oKKG hckciTTIvcH7rJXRwJ0p0AyFsMc V8RBlrV4XxefE6EHSoiDKh IGriLVF9M71qc8L6CDHpYUSpNDQ 0nTN7tZ1orFpfqhfhiETabGwntn KziYahJAwfEYsoD374UAXx pXwsIQDciD1xKZYarJJfuZfsJY8 fUZAlsnuhWmbOSwAHQ0GOQXMLSW 5LCXHDH7LVHZsPIXHWGFUW RTwvdGQ+GRXgATE0eAfmRXmoVHZ ptP5iDSGkO9a8MpJoEiU6AUepQ2 JzKCIakjvqYm92fE4hFaIk XjK0TAtwX9UtpwM0FMFoiQHaQHj tZVR3Q20bj8R5MPIlHDVaWVO5aF K4xB7edZjpyxiudQNzpYwk olTzeFzbNFgvLIbtH324BWShgHd mYqYyDiS5MdMxGJQ0N9FtCme9WR TkmBegZG5oxHXxTOpkYg7a kTjmgVdwNY7fCJXibpacJYXxpB0 dDHZhpAHtuMcuRP3cHMYgaywpm0 20NoUnRRV6JKDdgOElF5Zc mH4vMyCvQADyRBXtG6SioLQpRVr bA869IKrjSdP9WHGcauZyF8NhGK BcbAfeCmP1e1I4Yd4bLLUQ ZWFyczwvdGQ+EQIfJSL3iLeuSWv iODPakQ6kLQVpA2n4JyEkBhW4GM hmI8BwBBMvmklhFd76zJ2k MqMgXbE2JUrhQ2FrbvA5UHKwxQL mGWbaLYE4G54lp2E6RVHsEBFrFX T0hEA4zN7gqQtkvtajjPAl gZeobiOfhNhyHXfuZZppE891JRC vcDsnPkZFTUFMRTwvdGQ+PHRkIH H8hDguMYprKJXbrY7wADWj T6y8VyThSkI9PKbgH1QcNEZnykc eHk01aW5yNyMuHiY4BEoeV0Tdfd Y0HYNqcMHyYJckDWT3C57v e6M6QPEwCGTxOVJ5gRB3iV9xgHp nbjogbGVmdDsgdmVydGljYWwtYW pmP252TJEejTflLrXkOGSd JG8huFoykYT+MV82oo76R3LjFtj tNlv2URZhLWS5qET8eE1yETLeCH ats0E9dWC8K9YhvtJxyl4w a3fjEYXgVEmgW60mgSCgn1G6WYM omWR3ZUYsdKtpWyHauR77Msg+PG OvyXkkz7RmTwsxl6voz6wx nZj3EgXsBYFbdoRyoHgwFVO4t1H nEx84Z13mQJfxWILaBRNmZYEaMI QykPqrsi9cjA1lIi5+PGNv bOQ6kUO5tW3lJaRiDaQ7XAikH38 8ZyWidNWqKmret0weh4xioGq5Mu JvUVSmwrRxjVflAOB6z6Cg Vm08Z3LenBnri5ZnZuv1ua66fDD cq9M1uIR3L6JpQFZqdihesMTwoY bnCP2zZDDvqvkxVFLvpN1p AITcL1i8GsMwJnG8QBysH0NslxV 8CZIumWApYEWqbDEDpD0vjnhky3 qbmikuRmHrUVYrGBw3MFj1 XHTeuDljBuMbTNW6HtN7UPR1dQG dgI5csTjtyxrqiT3rLpa+UGh5c2 hbpBLnSI4goRJ1IF61CH12 yMCzt2E5fQP7P3DzLQFlxbtvwuu iwIG0DRTdMLTtoY74Nu4ieIxqCx 1wEYJoUZG3KBQttVKpF3Nk vE9bYwCaSLMuQUMpZ4ThuWGiNXt aJ108MOvrEiL5QRMhgzLfU1EbUC DbcTstCqU2t1Y3Db5VRE26 PO29FT81eZPft4C6zMV6T1JnNQI mmykybckifUT1ZXMjBKPudW91Yb 1mmWbeOo9sXFTrQKE3FYTu jBJpG0JjgE5yKcFhYKHoYKTeC7Y eiZSvZAgvC349KQqkSfU8RGLisw TmW0ElYIDggYcnSkT0r1C0 Cd5JUe49OQ27BD77eTFcl7X6rOH 9I1NxUZNhzwpjrrzpeUM8DZVrQM KskR86Gl3hhRwpGp7nGACy EAI6GRIlwIXtM1TjiI9gRhTtCRH mWYIkQ1ZjoGBpXFykU450TGfnXa F2MFKerhYpW1McIANprPiq AkL0w9J3Eo3WUEgcear0F2UmXeu vdHI+XO47SKUpNG15eUDztCDrq9 jkfEl2AaElMJNzFTP7nGby PSd (more content not included)... Normal [facility] Consent Formson 08-03-2022 Consent Forms [id number]#[id number] [facility] .Auto Diff 1on 07-31-2022 Auto [place] % 8 % Normal -12 [facility] Comment on above: Performed By: #### 1 [id number], [id number], 7419420972, 0482783, 0207833, 8030423185, 5713840484 ####[facility] (DEFAULT)[address] [place] [address] 48406 Baso Abs# 0.0 x10 Normal 0.0-0.2 [facility] Comment on above: Performed By: #### 1 7733646, 6917577195, 6807235330, 8720903, 3703019, 8040753444, 8152386522 ####[facility] (DEFAULT)[address] [place] [address] 15100 Basophils/100 WBC (Bld) 1.0 % Normal 0.2-2.0 [facility] Comment on above: Performed By: #### 1 8029302, 7840183029, 1606838320, 2617297, 2960799, 4349373539, 1807263398 ####[facility] (DEFAULT)[address] [place] [address] 32471 Eos Abs# 0.1 x10 Normal 0.0-0.4 [facility] Comment on above: Performed By: #### 1 8462083, 5571504034, 8324372094, 4982835, 2630452, 7792122554, 9420910662 ####[facility] (DEFAULT)[address] [place] [address] 44379 Eosinophils/100 WBC (Bld) 2.2 % Normal 0.9-4.0 [facility] Comment on above: Performed By: #### 1 6736933, 6357378638, 5219084968, 8245098, 8814828, 9255438818, 1068086479 ####[facility] (DEFAULT)[address] [place] [address] 07525 Lymph Abs# 1.5 x10 Normal 1.3-2.9 [facility] Comment on above: Performed By: #### 1 2041058, 3442806367, 2987062398, 7366388, 3012549, 6941918650, 0752568309 ####[facility] (DEFAULT)[address] [place] [address] 06738 Lymphocytes/100 WBC (Bld) 35 % Normal 14-48 [facility] Comment on above: Performed By: #### 1 3694863, 3093065295, 2794674970, 0044871, 0373318, 7000948494, 5343437346 ####[facility] (DEFAULT)[address] [place] [address] 73299 Owsley Abs# 0.4 x10 Normal 0.0-0.8 [facility] Comment on above: Performed By: #### 1 1497026, 5996915057, 3947411432, 1035973, 3905585, 7714222767, 4152649191 ####[facility] (DEFAULT)[address] [place] [address] 19445 Neut Abs# 2.3 x10 Normal 1.5-9.2 [facility] Comment on above: Performed By: #### 1 0534915, 7926645890, 4456751849, 3103538, 1821245, 0348476241, 0525699677 ####[facility] (DEFAULT)[address] [place] [address] 13170 Neutrophils/100 WBC (Bld) 54 % Normal 44-88 [facility] Comment on above: Performed By: #### 1 5199226, 5790885976, 7075547057, 9110918, 3943682, 0524528164, 6013986772 ####[facility] (DEFAULT)[address] [place] [address] 15022 CBC w/ Auto Diffon 3 Erythrocyte distribution width (RBC) [Ratio] 14.7 % Normal 11.5-15.0 [facility] Comment on above: Performed By: #### 1 0746396, 3903446756, 2661034669, 9758523, 8634173, 6473904561, ####[facility] (DEFAULT)[address] [place] [address] Hematocrit (Bld) [Volume fraction] 39.8 % Normal 33.7-40.4 [facility] Comment on above: Performed By: #### 1 5890239, 0120163021, 0388404668, 9932591, 8123621, 8132935955, ####[facility] (DEFAULT)[address] [place] [address] Hemoglobin (Bld) [Mass/Vol] 12.9 g/dL Normal 11.3-15.9 [facility] Comment on above: Performed By: #### 1 3396820, 7744768318, 7644002227, 0056379, 6283069, 9342914048, ####[facility] (DEFAULT)[address] [place] [address] Man Diff? Auto Invalid Interpretation Code [facility] Comment on above: Performed By: #### 1 7704451, 3994465342, 9943605936, 8284745, 5282978, 9498044458, ####[facility] (DEFAULT)[address] [place] [address] 49768 MCH (RBC) [Entitic mass] 25 pg Normal 24-34 [facility] Comment on above: Performed By: #### 1 8833821, 6298736428, 6755102380, 5958790, 9488269, 5831880723, ####[facility] (DEFAULT)[address] [place] [address] 97752 MCHC (RBC) [Mass/Vol] 32 g/dL Normal 26-37 [facility] Comment on above: Performed By: #### 1 3187364, 7291970769, 2127592950, 0059990, 8140812, 3123524870, 1837718114 ####[facility] (DEFAULT)[address] [place] [address] 76903 MCV (RBC) [Entitic vol] 77 fL Low 81-100 [facility] Comment on above: Performed By: #### 1 5853899, 4808163128, 1630233008, 5929039, 3099410, 4764716143, 5795152871 ####[facility] (DEFAULT)[address] [place] [address] 63137 Platelet 254 x10 Normal 138-427 [facility] Comment on above: Performed By: #### 1 2404490, 0760467290, 9844342211, 1852058, 1614023, 9297559004, 8390501795 ####[facility] (DEFAULT)[address] [place] [address] 63202 Platelet mean volume (Bld) [Entitic vol] 8.8 fL Normal 6.3-10.2 [facility] Comment on above: Performed By: #### 1 0107322, 2544324341, 0162913979, 1220740, 5369900, 8790083589, 7618972410 ####[facility] (DEFAULT)[address] [place] [address] 61365 RBC 5.14 x10 Normal 3.70-5.30 [facility] Comment on above: Performed By: #### 1 4924571, 4830379571, 3268017913, 2677549, 3562912, 4381873933, 7563777923 ####[facility] (DEFAULT)[address] [place] [address] 59136 WBC 4.4 x10 Normal 3.5-10.5 [facility] Comment on above: Performed By: #### 1 3212268, 4849345913, 6338882693, 9577005, 9579154, 4642457887, 8351126142 ####[facility] (DEFAULT)[address] [place] [address] 79001 CMP Standardon 07-31-2022 eGFR Non AA >60 Invalid Interpretation Code [facility] Comment on above: Performed By: #### 1 9877608, 6537030701, 1775957617, 7288981, 4349261, 7920734749, 0937784713 ####[facility] (DEFAULT)[address] [place] [address] 94946 eGFR AA >60 Invalid Interpretation Code [facility] Comment on above: Performed By: #### 1 6445444, 0007915726, 3992566948, 2540689, 2956161, 8843395611, 4453019625 ####[facility] (DEFAULT)[address] [place] [address] 52178 Albumin [Mass/Vol] 4.5 g/dL Normal 3.5-5.0 [facility] Comment on above: Performed By: #### 1 2368253, 4951145950, 5803642770, 6997870, 7388294, 5147327617, ####[facility] (DEFAULT)[address] [place] [address] 70012 Alk Phos 70 IU/L Normal 32-91 [facility] Comment on above: Performed By: #### 1 9507111, 5780764880, 0089203988, 1838463, 5455337, 0972577953, ####[facility] (DEFAULT)[address] [place] [address] 31844 ALT [Catalytic activity/Vol] 20.0 U/L Normal 8.0-29.0 [facility] Comment on above: Performed By: #### 1 7430407, 6681564684, 8066596017, 8529894, 0368705, 3623000732, 1334591637 ####[facility] (DEFAULT)[address] [place] [address] 43077 AST [Catalytic activity/Vol] 19 U/L Normal 14-37 [facility] Comment on above: Performed By: #### 1 2551045, 8856056936, 6882649720, 3261590, 1270971, 1881653979, 7089459661 ####[facility] (DEFAULT)[address] [place] [address] 94136 Bili Total 0.7 mg/dL Normal 0.0-2.0 [facility] Comment on above: Performed By: #### 1 9529378, 5252121366, 0478459405, 8696144, 6814045, 8875757533, 3920450605 ####[facility] (DEFAULT)[address] [place] [address] 12507 Calcium [Mass/Vol] 9.1 mg/dL Normal 8.9-10.3 [facility] Comment on above: Performed By: #### 1 5342350, 9988196594, 3399175657, 4591560, 6065866, 3537861137, 4548855346 ####[facility] (DEFAULT)[address] [place] [address] 81460 Chloride [Moles/Vol] 105 mmol/L Normal 101-111 [facility] Comment on above: Performed By: #### 1 0820773, 1762606425, 1020043927, 6538857, 3159424, 3827304305, ####[facility] (DEFAULT)[address] [place] [address] 96446 CO2 [Moles/Vol] 23 mmol/L Normal 21-32 [facility] Comment on above: Performed By: #### 1 5132634, 2871925992, 0050821243, 5022412, 6277458, , ####[facility] (DEFAULT)[address] [place] [address] 29465 Creatinine [Mass/Vol] 0.64 mg/dL Normal 0.30-1.00 [facility] Comment on above: Performed By: #### 1 8652041, 7209138567, 1345110431, 4997499, 5131563, 5066623176, 0558227355 ####[facility] (DEFAULT)[address] [place] [address] 34674 Glucose [Mass/Vol] 92.0 mg/dL Normal 56.0-144.0 [facility] Comment on above: Performed By: #### 1 5690371, 3947478737, 6091268110, 9337706, 3704419, 0449049058, 9797577353 ####[facility] (DEFAULT)[address] [place] [address] 29185 Potassium [Moles/Vol] 3.5 mmol/L Low 3.6-5.1 [facility] Comment on above: Performed By: #### 1 9938815, 0593252620, 3928060678, 0459903, 3937481, 4178843104, ####[facility] (DEFAULT)[address] [place] [address] 63871 Protein [Mass/Vol] 8.0 g/dL Normal 6.1-8.0 [facility] Comment on above: Performed By: #### 1 5703128, 7369927209, 3003079983, 9261916, 4978096, 9601864289, ####[facility] (DEFAULT)[address] [place] [address] 27268 Sodium [Moles/Vol] 133.0 mmol/L Low 136.0-144.0 [facility] Comment on above: Performed By: #### 1 0210180, 2039379462, 3549174852, 8695743, 4066954, 7898556708, ####[facility] (DEFAULT)[address] [place] [address] 83503 Urea nitrogen [Mass/Vol] 10 mg/dL Normal 8-26 [facility] Comment on above: Performed By: #### 1 6714639, 6184377541, 2953864603, 0699685, 5449141, 0283341934, ####[facility] (DEFAULT)[address] [place] [address] 27607 Albumin/Globulin [Mass ratio] 1.2 {ratio} Low 1.4-2.6 [facility] Comment on above: Performed By: #### 1 0902390, 5709212513, 3099741532, 3470896, 6350243, 3018550841, ####[facility] (DEFAULT)[address] [place] [address] 31384 Anion gap [Moles/Vol] 8.5 mmol/L Normal 5.0-19.0 [facility] Comment on above: Performed By: #### 1 2244788, 3676856373, 5274847815, 5674524, 8072926, 6607843062, ####[facility] (DEFAULT)[address] [place] [address] 24321 Globulin (S) [Mass/Vol] 3.5 g/dL Normal 1.5-4.3 [facility] Comment on above: Performed By: #### 1 2126142, 5819083437, 2714419808, 0149002, 7028025, 0077869922, 8870892622 ####[facility] (DEFAULT)[address] [place] [address] 18168 Osmolality 265 mOsm/L Invalid Interpretation Code [facility] Comment on above: Performed By: #### 1 [id number], [id number], [id number], [id number], [id number], [id number], [id number] ####[facility] (DEFAULT)[address] [place] [address] 72618 Urea nitrogen/Creatini ne [Mass ratio] 15.6 mg/mg Normal 4.6-16.2 [facility] Comment on above: Performed By: #### 1 [id number], [id number], [id number], [id number], [id number], [id number], [id number] ####[facility] (DEFAULT)[address] [place] [address] 52894 CRPon 07-31-2022 CRP 0.6 mg/dL High <=0.5 [facility] Comment on above: Performed By: #### 1 [id number], [id number], [id number], [id number], [id number], [id number], [id number] ####[facility] (DEFAULT)[address] [place] [address] Abdomen/Pelvis w/ Contras ton 07-31-2022 CT [...] MD 07/31/22 12:29 p Technologist: Natalia JI [facility] Comment on above: Order Comment: IV on ly ED Clinical Summaryon 2022 ED Clinical Summary [facility] - Emergency Department [address] [place] [address] ED Clinical Summary PERSON INFORMATION Name: SHEYLA LEA Age: 17 Years Sex: FEMALE : 2005 MRN: Acct#: Visit Reason: Abdominal pain; ABD PAIN Arrival: 07/31/2022 11:11:49 Discharge: 07/31/2022 13:07:00 LOS: 000 01:56 Check In: 07/31/2022 11:11:49 Checkout:07/31/2022 13:07:00 Address: [address] [place] [address] PCP: KEVIN STOKES PROVIDER INFORMATION Provider Role Assigned Unassigned KATHLEEN LUNDBERG ED PA 07/31/2022 11:14:51 Gila Solis CENTRAL SUPPLY MANAGER Nurse 07/31/2022 11:22:38 VITALS INFORMATION Vital Sign [...] - pharynx pink and moist. NECK: -Supple (ksqr-yj-pavti): non-tender. CARD: -Rate and rhythm: Regular -Edema: [...] at 0.6, (more content not included)... Normal [facility] ED Note - Physicianon 2022 [...] - pharynx pink and moist. NECK: -Supple (ktkx-ij-rdbuq): non-tender. CARD: -Rate and rhythm: Regular -Edema: [...] 20.0 IU/L (more content not included)... Normal [facility] ED Patient Summaryon 023 ED Patient Summary [facility] Emergency Department [address] [place] [address] PATIENT DISCHARGE INSTRUCTIONS Patient Information Name: SHEYLA LEA Age: 17 Years Date of : 2005 Reason For Visit: Abdominal pain; ABD PAIN Arrival Time: 07/31/2022 11:11:49 Primary Care Physician: KEVIN STOKES Attending Physician: Ean Solorzano MD Comment: Visit Diagnosis: Diagnoses This Visit Abdominal pain ([id number]) Abdominal pain (R10.9) Elevated blood pressure reading (R03.0) The Pharmacy at [facility] is open Wednesday through Wednesday from [...] alcohol and/or drug addiction problems; contact the [facility] 07/12 Crisis Hotline -Text 9AGMP oe [phone]. If you received any narcotics, sedation, or [...] legal documents With: Address: When: KEVIN STOKES [address] [place] [address] [phone] Business (1) Within 2 to 4 days [...] and treatment you received today in the [facility] Emergency Department were for an urgent problem and are not intended as complete care. It is important for you to follow up with a doctor, nurse practitioner, or physician?s oncology physician assistant for ongoing care. If your symptoms [...] so we can reach you if necessary. [facility] Emergency Department has provided you with a complete list of medications post discharge. Please inform your home theater experience expert/provider of your visit and for further instruction [...] heart throughout (more content not included)... Normal [facility] Extra Greenon 07-31-2022 Tube Collected Yes Invalid Interpretation Code [facility] Comment on above: Performed By: #### 1 [id number], [id number], [id number], [id number], [id number], [id number], [id number] ####[facility] (DEFAULT)[address] [place] [address] 58056 Extra Redon 07-31-2022 Tube Collected Yes Invalid Interpretation Code [facility] Comment on above: Performed By: #### 1 [id number], [id number], [id number], [id number], [id number], [id number], [id number] ####[facility] (DEFAULT)[address] [place] [address] 61096 Lactic Acidon 07-31-2022 Lactic Acid 6.5 mg/dL Normal 4.5-19.8 [facility] Comment on above: Performed By: #### 2 [id number] ####[facility] (DEFAULT)[address] [place] [address] 36156 Test Urine 1on U Preg Negative [facility] Comment on above: Performed By: #### 1 [id number], [id number], [id number] #### [facility] (DEFAULT) [address] [place] [address] 74077 U Preg Internal Control Pass [facility] Comment on above: Performed By: #### 1 [id number], [id number], [id number] #### [facility] (DEFAULT) [address] [place] [address] 87366 UA Qblkp3zo 07-31-2022 UA Bacteria None [facility] Comment on above: Order Comment: Urina lysis Microscopic order added on by [employer] Expert Rules system. Performed By: #### 1 [id number], [id number], [id number] #### [facility] (DEFAULT) [address] [place] [address] 10135 UA RBC 0-2 [facility] Comment on above: Order Comment: Urina lysis Microscopic order added on by [employer] Expert Rules system. Performed By: #### 1 [id number], [id number], [id number] #### [facility] (DEFAULT) [address] [place] [address] 98497 UA Squam Epi Rare [facility] Comment on above: Order Comment: Urina lysis Microscopic order added on by [employer] Expert Rules system. Performed By: #### 1 [id number], [id number], [id number] #### [facility] (DEFAULT) [address] [place] [address] 22473 UA WBC None Seen [facility] Comment on above: Order Comment: Urina lysis Microscopic order added on by [employer] Expert Rules system. Performed By: #### 1 [id number], [id number], [id number] #### [facility] (DEFAULT) [address] [place] [address] UA w Culture if Ind Standard on 07-31-2022 Breakpoint UA [facility] Comment on above: Performed By: #### 1 [id number], [id number], [id number] #### [facility] (DEFAULT) [address] [place] [address] Color (U) Yellow [facility] Comment on above: Performed By: #### 1 [id number], [id number], [id number] #### [facility] (DEFAULT) [address] [place] [address] Culture? No [facility] Comment on above: Result Comment: Resu lt created by rule GL_MAGR_ADD_UA_CULT Result created by rule GL_MAGR_ADD_UA_CULT1 Performed By: #### 1 [id number], [id number], [id number] #### [facility] (DEFAULT) [address] [place] [address] 30782 Glucose (U) [Mass/Vol] Negative [facility] Comment on above: Performed By: #### 1 [id number], [id number], [id number] #### [facility] (DEFAULT) [address] [place] [address] 10796 Ketones Ql (U) Negative Normal [facility] Comment on above: Performed By: #### 1 [id number], [id number], [id number] #### [facility] (DEFAULT) [address] [place] [address] 07130 Micro? Indicated Invalid Interpretation Code [facility] Comment on above: Result Comment: Resu lt created by rule GL_MAGR_ADD_UA_MICRO Performed By: #### 1 [id number], [id number], [id number] #### [facility] (DEFAULT) [address] [place] [address] 93121 UA Bilirubin Negative Normal [facility] Comment on above: Performed By: #### 1 [id number], [id number], [id number] #### [facility] (DEFAULT) [address] [place] [address] 13928 UA Blood SMALL Abnormal NEGATIVE [facility] Comment on above: Performed By: #### 1 [id number], [id number], [id number] #### [facility] (DEFAULT) [address] [place] [address] 60375 UA Clarity CLEAR Normal CLEAR [facility] Comment on above: Performed By: #### 1 [id number], [id number], [id number] #### [facility] (DEFAULT) [address] [place] [address] 72634 UA Leuk Est Negative Normal NEGATIVE [facility] Comment on above: Performed By: #### 1 [id number], [id number], [id number] #### [facility] (DEFAULT) [address] [place] [address] 00409 UA Nitrite Negative Normal NEGATIVE [facility] Comment on above: Performed By: #### 1 [id number], [id number], [id number] #### [facility] (DEFAULT) [address] [place] [address] 67541 UA pH 7.0 Normal 5-8 [facility] Comment on above: Performed By: #### 1 [id number], [id number], [id number] #### [facility] (DEFAULT) [address] [place] [address] 06965 UA Protein Negative Normal NEGATIVE [facility] Comment on above: Performed By: #### 1 [id number], [id number], [id number] #### [facility] (DEFAULT) [address] [place] [address] UA Spec Grav 1.010 Normal 1.001-1.035 [facility] Comment on above: Performed By: #### 1 [id number], [id number], [id number] #### [facility] (DEFAULT) [address] [place] [address] 45144 UA Urobilinogen 0.2 mg/dL Normal 0.2-1.0 [facility] Comment on above: Performed By: #### 1 [id number], [id number], [id number] #### [facility] (DEFAULT) [address] [place] [address] 47313 Urine Source Clean Catch Normal [facility] Comment on above: Performed By: #### 1 [id number], [id number], [id number] #### [facility] (DEFAULT) [address] [place] [address] Coding Summaryon 07-11-2022 Coding Summary [employer]Base 64 IglpbjavUGv3dRi+PGhlYWQ+PE1 BZFPmG16vaNEgfX1GH4mEID7DWN VJOKVHEM7SDI8ydWW1SBqqB4Ghg iAv OqaccMCcJF90WLk2XZU2rKqqPSm trR6viDKjF9b6GxCtFW22sH55IB viTFLkJkK6OoYnjutzrEIq X5zgCyXwqVSbWwj+PHRhYmxlIHd hPMJpNGntGRSsGaQwvLozVH2kAr 9yZGVyLWNvbGxhcHNlOiBj l1ywWDAwBTobFY0tmZerV9VdpRH 6JBAsc9x4Ji93mNU+ORWrSPC6qG ygNGpmb018TbJkv5zvMLZ7 nTGrEZcuGQL6U91nt7R3VVEoZSS sJMM9vPE5cK1rlNujjpxkQ1VffP PxBgQ4DWX4wTDgcY6liJla eoegvH9dCew+S48ICG7IRZJHIR9 FOfo8R8QdZdqfeFF+VO65VVToMI 73wFAhcSQus3ipgCu7EeEt SIDkHSL2tRlcTLmqk8YjARFhV57 kxKBeg4T0NPFwkKflcWCgJyBaeP A8xK2lWVipspsiu9ospdpl Gmpgz3coek35bC14J00vGUfhSVW nEUC2PDYpZJHbqQwdko7psR5nMh 8+DDife3zrc8edhHb5VqFg EVBopyGlsSrxXRF3k2ZwRc87H3P kpFrko0FsJmf7sl50kSAqr4L6dQ E4TKbdFDSvuK8eUXfoZaW6 IKUwMsPrzD98yBPeXIauTh3zjYn noBstXL2aJKUlxajsYHNinH4vZR EowUKpsWlwNN0oQQXidbhf k510HbPjLIG3OUJaoHVfS3SwdL1 nIqHaLOJuERImG1FoqNExWYdqA6 84WOmmKjU8IVXzfrBmX7Ol LLYlyAlzSdO1r1L2Ep9Rf7Pdepp mHAT2ZUnqEWCmVwT7NpXcMoF2Q9 NoVib5VOLhaOeeHT6vG9Mf FUIoewyrhcuozJJ1VKEgVPNfmQ2 8tDBbVUnwSs9ma7N8h739WHSsKN QbwP77Ya1jnEceUKHhnVQP nZ0dqchgf8ofpecsBtJySXYgEEk 9DGf9TEFguKegKwPhSOU9WsX5TQ E9fINocZ2zuJzvljaocC1v Oyc+K62giR6kFNA3PRF8quovYUG edjKpCD81XA61G2QfQufnqIKzkZ U+IFGzmtTvcHppRW8zAiAa g0aey7FeTJuhR5ScSHYeCEgeHff 1MITeGPB0sPZ2aU3zMXRhAFjbe6 V2yLT4N0XbuaIkdi9ry1ua WSUwZExcV07clQYrk9A7LZQcpQD 4ZTKexVugWyNbvU46Mgi+PGNvbG ycj5RoTfbnk9kiv1gpoYk8 HaQsRLBofbNidEqsVXJ9x8GhDr8 8C26pBIxeTUVaXUHiOZZcPSZviZ ahpv3lwN1eOu3+PGNvbCB3 fNB6tE0vWINmWpX2BFlcV833ZfY jqKElMxckx4edm6achTs9ZxHyLG ZgmoKbrZttEXA4c0CtCd51 Q82xCZlzJFLfDHLsHLRmZLFgoLs lti9amF3zPi0+QT9wf4cpmw63bW 48dHI+GTAzNFK9oRriEIpf JDGcdM9kQQzgPnZ0WMXfOoOffQ7 3ySFkBUcuZx7zeWoqpSqvDX1uQY Srsdfaa450YmCrx9uiHGZt kTQoTUmpYJO9C52fo1T2HOVrQDB uPYZ5fCU6fA7rbMaiccijsNAljU wmafYfyKquYDxwJDczE139 IHRvcDsnPlBhdGllbnQgTmFtZTo 6X2ZaVjt3WJSntVltUN4zyPUjJM fnFe2nlVueaGikRA7gKDPq fllim070CfOav5njCQAvmXTsBFs iBIB8O27mf9Y3FOQiTHRaXPI3wZ Y5yR7qhAbyxqichGPzpGju vjQrmZpkEMnlARolY700QXDvvRt nZvJideCcGSKzqOE2TS90XP20eQ Grl7K8pBB8Z4FeGSTuvgsc yjhrdZQ3CTGoSHHthQ93Ti9mjYt oPv3iDPFbZDG2GWXqpBPxZ8PvsE 1tAbHsPKXjKBWvC1BslTNs DOxtW053FRkcBvJ4HFBqxtWpZ1X dRVFlnTncGhW9k5E4Wu8QN6H4EA 51XQ12sOGly3L8wKE2G1Dm DSSnejssymqwbDW4ZXJjZHQczF5 6Ne3wfRgcIk3pJGUtRET4WNWzsX VcR2OjhE8lRoCpNVQaWUPl J2ZvkKObVKcfC477BWzsPaS8PWX lftSuG8MaUGYdqQsqQxM1z9V2Yt 6XKYm3QR39AN82cQFuw9S8 sFZ0D9FyNZDiuampqginqUX9NXH mFWXwmI59Pa8kfTnsUg6qAVSkKL J3CHAdeYCwQ8EflV1cVuYq TOAhSSRwV0ZhkCHjRUquN139EWk jAaI1MJCvhmTvM5SiSULwnZdkZp C1l8Q1Hj5ABMTnJH20FJQ8 xHF4AA15QC12J0LyYijzdTPpvPT +PHRhYmxlIHdpZHRoPScxMDAlJy XdrVbeCD2jJo2eSNLgOACh oFdknPTcYiDzb8veZVRtWBlgZP8 wrTxvM6BdrOT0UCIlm2t5Hl48G8 5kI0BmaQT+WQRzyPO1pYM6 oO5iUeIuIzL6DObcP537DiEahMU jGazxd1jvu1jnjEa4JfT1FUWbop LzhCxfULE3i9CiFc16G82z IHdpZHRoPSIxNSUiIHZhbGlnbj0 paU0zHi4+KTRxiCJ6fMZ8yI9uVj EuOwU6HKutI732FdMlqOSn Ztlsr5zoy1kcpYv9YtMyHEHnopO gzRwpZHW3t2GoGj25I3UedVkga0 CqTfk6ny05iDDya5J1bEU1 U9ZoINMcxxowjNQlsVypKK1gIDN hrrfdHCEyyL3vHOQqV7p3FmFjFq F7MZdoI9JbzmQ5FKAqvVGb BLitTYQ1B43ff7K1BBPpWHUkNBX 7wPA4gH0lqVtbsjxdpEKpvEuhbu FtuGdmOWtlFXhxZ013TQEl xJpfJUQckM1mMRGfiEZbnIwnWF2 sMDXlznexGdoGOkVHR9WECPPXCP 8AJBOZK0DCHRdZUIRKRTPK RTwvdGQ+QYBzEPD7pAyhARslXUO gnX6tPNVrA5v8XrIeRfP5LKiqC3 CwEDPfgmnbHz76sO7sWqRx IkC3NMgzG2FikkS4MLJhkMZsPCp lVID8O73cz9B1VDKgAHFdRLL6gO V1oU6meUjpjtgffIDatLln oeIguRykSDdoTYjaI714WDVgySj aPrQuFkL7IuSiABW1G8MlGtw7XF AmtWevXG4jlBStNWgmKx2g xCwjcQyeGH4gNNEbqfimIFTxwY8 mWIBydTYmmIofAM2wHFSyxzczk1 01FaHfSRI6TEXnsSMcJ8Ou mW5uTeAmUKRhWZDlA3AsxQCuZMm vN646ZIguRoD5AHZybeDfW1GhKX EuzLglNaT3k5P8Kg7vIGOD ZWFyczwvdGQ+DNGeUKP3dKnbJEs nZQZzcI9oPJZpF3d8IbUyUlK1PI ciQ1ZkUURnkmhfSj12fJ3l LyZkStV6VXsnB2MsrlY8EKOaoOW eHIttPQA1N77cl1U3ZQEyRIKbBE N7zCL9uQ1dcKdwwlavsUFp hUjdkqKqsDcaSUvyFYbmA800WDE vcDsnPkZFTUFMRTwvdGQ+PHRkIH M8dLzlAPmtGHFgiH2iWEEv Z0y4FaIjAfE0QJyrQ3KcUWVohfy kWb21dO0sSnYkQgA2DCmpR6Uwax W2GDLybHItJPiwHYO9W70k n0E5IDGkZRBhHSY1kYA9kE5dmWx nbjogbGVmdDsgdmVydGljYWwtYW mjT116VVRtoDesSx6KSV96 LN60N4RtNuqcoOTvmQQ+PHRhYmx lIHdpZHRoPScxMDAlJyBzdHlsZT 3zAo5mWUMoKLNmuTmxpCEw JoKet5scAWIzYEjlZR4moIgzI0S qzWN8RNEwn5u2Qa27S56uT0PmrK A+TVRutLZ6cPT5jM8vJwAt PyZ9UKasJ292UuVheDPxCoooq1l jv5iiwOe8SrCaRPEkcxAztKpkCG R3u7MmOh66Z43xRUidJAJo GETwFITkZYPthMyqae0xqB3bAa0 +OSAysZR4yFZ0lH6qYcVoCsN8QN slZ712EyXkfLTmOwceF79d A6EedXC+TLAcQja8NWPemPwdBD5 bmMSgUOzuBp4yXKO3NrRcXcNcDE fiT5LvAFRjhjhpduhkfWH7 UCWhYRDrtE46Dr5zxCfhRo7gHZT kVMO4PGUizNIiZ6XcmX0wZxCcAF JfVTSzJ6JtcOFaDVobQ528 JRdnXrR8DJOmroYqR0UrCRAepAx zUfD1l4Q4Hd1ZeDvtyAMiKH0uTu SwEQf7O2VnHdw1YFZatMyh VO1vwMCjCXouPk8gpLcsyPduLS1 fBHJwnpump798YrMzk9koWQQjiP FpHPoqJTA2K74xo3D1NMAm DKWwURT5uPE6fG6axUlrgpmxrCU fvOvhvtQztDicWHjtRHtiP458DO LkxNjsWgXHIpn3M4VsRow0 FBBsiZpbOE4coLIrJCldEd8zeQh kzRbaNK3wIIKomjhmi479QuJsj1 nhADBnyFMuPUsoPQI9Y90d w9O3ZHOjGCHyGFR7uCP1dB5okCu nbjogbGVmdDsgdmVydGljYWwtYW qnL250KVGzmTdeBu5CKcc1 C3UeWnp8FUKqjIhiBG9kvTTqMTp cZo9hqUhblJfdLH1yUNXelecea0 03AgUta8ooPQDziOYwJYex PMM7O58wk6Z2KYVjLGVfARK8jGI 4zJ8ndNcquzcbwMCqoMjtaiAgvZ voEWxkJWygN668KHFyxWvf PlBheWVyOjwvdGQ+ZK82tt23E0C eHqxyOvq7QQFkSQF6fTE0vC5jRU ZfKIupz8D3bZE4K1GhfcTy ci1 (more content not included)... Normal [facility] ED Clinical Summaryon 2022 ED Clinical Summary [facility] ? Urgent Care [address] [place], [place] [id number] Clinical Summary PERSON INFORMATION Name: SHEYLA LEA Age: 17 Years Sex: FEMALE : 2005 MRN: Acct#: Visit Reason: Ear pain; BI LAT EAR PAIN, FEVER Arrival: 07/08/2022 10:52:39 Discharge: 07/08/2022 11:26:00 LOS: 000 00:34 Check In: 07/08/2022 10:52:39 Checkout: 07/08/2022 11:26:00 Address: [address] [place], [place] [address] PCP: KEVIN STOKES PROVIDER INFORMATION Provider Role Assigned Unassigned Arvind Doherty PA-C ED PA 07/08/2022 10:58:02 Levy Bee ED PA 07/08/2022 10:58:39 07/08/2022 10:58:42 Zara Fleming CENTRAL SUPPLY MANAGER Nurse 07/08/2022 11:09:15 VITALS INFORMATION Vital Sign Triage Latest Temperature Tympanic Temperature Temporal Artery Pulse Rate O2 Sat 99 % 99 % Respiratory Rate Blood Pressure /60 mmHg /60 mmHg MEDICAL INFORMATION Medications Given: Allergy Information: No Known Medication Allergies PHYSICIAN DOCUMENTATION DISCHARGE INFORMATION: Discharge Disposition: Home Discharge Location: Home PATIENT EDUCATION INFORMATION Instructions: Otitis Media, Adult, Mrlc-pj-Yapr Follow-Up: With: Address: When: KEVIN DIVYA [address] [place] [address] Business (1) Within 5 to 7 days DIAGNOSIS: Bilateral otitis media Patient Understands: Yes - Patient/family/caregiver verbalizes understanding of instructions given Comment: Normal [facility] ED Patient Summaryon 023 ED Patient Summary [facility] ? Urgent Care [address] [place], [place] [id number] PATIENT DISCHARGE INSTRUCTIONS Patient Information Name: SHEYLA LEA Age: 17 Years Date of : 2005 Reason For Visit: Ear pain; BI LAT EAR PAIN, FEVER Arrival Time: 07/08/2022 10:52:39 Primary Care Physician: KEVIN STOKES Attending Physician: Levy Bee Comment: Patient Education With: Address: When: KEVIN DIVYA [address] [place] [phone] Business (1) Within 5 to 7 days [...] Follow these instructions at home: ? Take olaj-uxn-kruairr and prescription medicines only as told by [...] provider. Document Revised: 08/11/2021 Document Reviewed: 08/11/2021 [employer] Patient Education ? 2021 [employer] Medication Information: The exam and treatment you received today in the [facility] Emergency Department were for an urgent problem and are not intended as complete care. It is important for you to follow up with a doctor, nurse practitioner, or physician?s oncology physician assistant for ongoing care. If your symptoms [...] have provided (more content not included)... Normal [facility] Urgent Care Note- Provideron 07-08-2022 [...] been selected or recorded.. Surgical history: Myringotomy ([id number]). History of tonsillectomy ([id number]).. Family history: No family history items have [...] Impression and Plan Diagnosis Bilateral otitis media (FEV35-IH H66.93, Discharge, Medical) Plan Condition: Stable. Disposition: Discharged: Time 07/08/2022 11:20:00, to home. Prescriptions: Launch prescriptions Pharmacy: amoxicillin-clavulanate 875 mg-125 mg oral tablet (Prescribe): 1 tab(s), PO, q12hr, for 10 day(s), 20 tab(s), 0 Refill(s). Patient was given the following educational materials: Otitis Media, Adult, Xymk-fw-Yocz, Otitis Media, Adult, Mwzj-ud-Phzr. Follow up with: KEVIN STOKES Within 5 to 7 days. Counseled: Patient, Regarding diagnosis, Regarding treatment plan, Regarding prescription, Patient indicated understanding of instructions. Orders: Launch Orders Miscellaneous Request: Excuse from Work/School (Order): 07/08/2022 11:21 EST, No work or school today.. [Electronically Signed on: 07/08/2022 11:28 EST] Arvind Doherty PA-C [Verified on: 07/08/2022 11:28 EST] Arvind Doherty PA-C Normal [facility] Care Recordon 023 Urgent Care Record [facility] ? Urgent Care [address] [place], [place] [id number] PATIENT DISCHARGE INSTRUCTIONS Patient Information Name: SHEYLA LEA Age: 17 Years Date of : 2005 Reason For Visit: Ear pain; BI LAT EAR PAIN, FEVER Arrival Time: 07/08/2022 10:52:39 Primary Care Physician: KEVIN STOKES Attending Physician: Levy Bee Comment: Visit Diagnosis: Diagnoses This Visit Bilateral otitis media (H66.93) Ear pain ([id number]) If you received any narcotics, sedation, or [...] legal documents With: Address: When: KEVIN STOKES [address] [place] [phone] Business (1) Within 5 to 7 days Medication Information: The exam and treatment you received today in the [facility] Urgent Care were for an urgent problem and are not intended as complete care. It is important for you to follow up with a doctor, nurse practitioner, or physician?s oncology physician assistant for ongoing care. If your symptoms [...] so we can reach you if necessary. [facility] has provided you with a complete list of medications post discharge. Please inform your home theater experience expert/provider of your visit and for further instruction on these medications. Any specific questions regarding your chronic medications and dosages should be discussed with your primary care physician(s) and/or pharmacist. New Medications [id number], [address], [place] [id number], [phone] amoxicillin-clavulanate (amoxicillin-clavulanate 875 mg-125 mg oral tablet) [...] in the (more content not included)... Normal [facility] US NECK (POC) HNI USE ONLYon 05-28-2022 [facility] US THYROID/PARATHYROIDon US THYROID/PARATHYRO ID * [...] 2 points Echogenicity: Hypoechoic, 2 points Shape: Apqej-[id number], 0 points Margin: Lobulated or irregular, 2 [...] WHICH MAY REPRESENT UNDERLYING DIFFUSE THYROID DISEASE. Area Attendant: NIKO Transcribe Date/Time: Apr 19 2022 8:34A Dictated by : UMU WHITAKER MD This examination was interpreted and the report reviewed and electronically signed by: UMU WHITAKER MD on Apr 19 2022 8:40AM EST [id number] Normal [facility] Cholesterol in LDL Direct as say [Mass/Vol]on 04-15-2022 Cholesterol in LDL [Mass/Vol] 95 mg/dL Normal <110 [facility] Comment on above: Order Comment: Harriet abernathy Type: BLOOD SPECIMEN Ordering Facility: [facility] Address: [address] [place] [address] Result Comment: <110 mg/dL, Acceptable 110-129 mg/dL, Borderline high >129 mg/dL, High Performed By: #### H DL1, 00569-3, 3016-3 #### [facility] CLIA [id number] [place] [address] [place] Cholesterol in LDL [Mass/Vol] 95 mg/dL <110 mg/dL [facility] HDL CHOLESTEROL BLDon 2021 Cholesterol in HDL [Mass/Vol] 42 mg/dL Low >45 [facility] Comment on above: Order Comment: Harriet abernathy Type: BLOOD SPECIMEN Ordering Facility: [facility] Address: [address] [place] [address] Result Comment: >45 mg/dL, Acceptable 40-45 mg/dL, Borderline <40 mg/dL, Low Reference: 1. Expert Panel on Integrated Guidelines for Cardiovascular Health and Risk Reduction in Children and Adolescents: National Heart, Lung and Blood [place]. Pediatrics. 2011: 128(Suppl 5):E545-912. Performed By: #### H DL1, 91403-9, 3016-3 #### [facility] CLIA [id number] [place] [address] [place] Cholesterol in HDL [Mass/Vol] 42 mg/dL Low >45 mg/dL [facility] HbA1c (Bld)on 04-15-2022 Average glucose Estimated from glycated hemoglobin (Bld) [Mass/Vol] 94 mg/dL [facility] HbA1c (Bld) [Mass fraction] 4.9 % 4.3 - 5.6 % [facility] Average glucose Estimated from glycated hemoglobin (Bld) [Mass/Vol] 94 mg/dL Normal [facility] Comment on above: Order Comment: Harriet abernathy Type: BLOOD SPECIMEN Ordering Facility: [facility] Address: [address] [place] [address] Result Comment: eAG: (Estimated average glucose) is a calculated value from HgbA1c and is account retention representative of the average blood glucose level in the last 2-3 month period. Performed By: #### 5 5454-3 #### [facility] CLIA [id number] [facility] [place] [facility] HbA1c (Bld) [Mass fraction] 4.9 % Normal 4.3-5.6 [facility] Comment on above: Order Comment: Harriet abernathy Type: BLOOD SPECIMEN Ordering Facility: [facility] Address: [address] [place] [address] Result Comment: [place] [place] Diabetes Association guidelines indicate that patients with HgbA1c in the range 5.7-6.4% are at increased risk for development of diabetes, and intervention by lifestyle modification may be beneficial. HgbA1c greater or equal to 6.5% is considered diagnostic of diabetes. Performed By: #### 5 5454-3 #### [facility] CLIA [id number] [address] [place] [address] [place] T4 FREE/FREE THYROXon 2021 Free T4 [Mass/Vol] 1.1 ng/dL 0.8 - 1.5 ng/dL [facility] T4 Free SerPl-mCncon 022 Free T4 [Mass/Vol] 1.1 ng/dL Normal 0.8-1.5 [facility] Comment on above: Order Comment: Harriet abernathy Type: BLOOD SPECIMEN Ordering Facility: [facility] Address: [address] [place] [address] Performed By: #### 3 024-7 #### [facility] CLIA [id number] [address] [place], [place] [address], [place] [address] [place] TSH BLDon 04-15-2022 TSH Qn 1.950 m[IU]/L 0.510 - 4.300 mIU/L [facility] TSH SerPl-aCncon 04-15-2022 TSH Qn 1.950 m[IU]/L Normal 0.510-4.300 [facility] Comment on above: Order Comment: Speci men Type: BLOOD SPECIMEN Ordering Facility: [facility] Address: [address] [place] [address] Result Comment: If t he patient is , TSH reference range varies by gestational period: First Trimester (weeks 9-12): 0.180-2.990 mIU/L Second Trimester: 0.110-3.980 mIU/L Third Trimester: 0.480-4.710 mIU/L Jose Fisher et al. A Practical Approach for the Verifications and Determination of Site- and Trimester-Specific Reference Intervals for Thyroid Function tests in . Thyroid, 2019:29:3:412-420. Loc Haddad, et al. 2017 Guidelines of the [place] [employer] for the Diagnosis and Management of Thyroid Disease during and the . Thyroid, 2017:27:3:315-389. Reference ranges were not locally established for this patient's age group. The normal values are based on the following source: Jayla W, Tim Elma. Reference Ranges for Adults and Children: Pre-analytical Considerations. [employer] [facility] Performed By: #### H DL1, 93673-4, 3016-3 #### [facility] CLIA [id number] [facility] [place] [id number] [place] Coding Summaryon 02-24-2022 Coding Summary HTMLBase 64 VaijgqvkPNz1vJt+PGhlYWQ+PE1 VNCBhA50mkBZllW9GY6qXXA4VMV QXGKKCIM9SXV8ywKC0GNxzI8Gsn iAv AccldMClOP45GXm0CGK1lHphJWh rhA8ktBYiI3y6FpChBQ43aO25NJ reYZTcJiV2HqPfwarnxDVs Y4dhQfMerULgWde+PHRhYmxlIHd fFNShIIwjSVIeWsArnHftIN2jFa 9yZGVyLWNvbGxhcHNlOiBj x4nrWNJbUVhtGY7yqRenP9UovJT 4ZVGoa8w5Sw81iTE+FZHiOMI5sH zhLVkgp418CmGzj7otRUX7 cYLkVRfeOYM3Y07ta1B0FUVfSTQ iBXZ9bMN7fX1uyCatexjdO9VmaP DjFkE5BSL9hCLqbV0yeFiy yzmvuY4gKml+D67GBJ8PWYNNAS2 SSkj1Z4MwNvbbmJV+YO00JXLvJF 39rPRujFAsn7ejqTv5CyMu FPYsVWE3tBytSDaha8MeIWGeS69 fuLHzk4O7XVHrnFcytGCvRyEgcO K4lU8dMIadxnlgb6eyfxjx Hfkga8lipx48gG30W57iSGruCZI rGCR5LXJnBRVioSzrgk7pnZ6lPb 8+GFeih2wil9bqaKr7RxQv MUDscbWukWuuEYM4h0XjLl42M9N ldKqbn5EcJqg8qq08xPRbg5D4dO N7DUjhHVLbeL2lTZwoIjK1 MZWxSbMcbN27bUJuBVprLg9qvBa smAxxRI0kZWQdrtzlMBBhuQ0nWI AdpUCppAmoKZ0bAPDabiir d452CfAjPDY3KECscKKdW9ElaG0 cPzRzNFPjSSMfP6TidYIgGMrvI0 83FXbsHsQ8YVZxdpTjL9Pl QWHpmTwpSbS2x1G1Mh6Wl7Oabux oDKK1PZwzRRGkTfRoUdTmEhS5P4 FmFra3XFTcnCswSW8bB5Gz NIZpxjkhujompTT7XLUhONHxhN8 8jGJmFZgtIt0td1A5s014XAOgER DqxI62Tu5afIjvVZRjoYUG aB6wkdkok3jgvxoaKmIvJHEaBTj 0CZd0FKKvuWhbGkVzEVJ1RwK0YI U4sQGmqO6rpSbqqdvohS0h Oyc+K25ffA9rYJP1MLG8hlxfHEO ugsVbDB10SE36E3CbVcevsGJswR U+WIAyhpJjvIyqRV6lEuLi y0goh9OiUEboH9AzDXImMLreBmw 3DMYfXTJ1wNI1xW9wFUEbYZura6 N5bTH4E0XgbgHoqc5ow8mv YOJwSHlqB04wpYFnz3U5IBGocAV 4FPWzxJcuHvYspI24Pfs+PGNvbG hmg9MqYnodx0mev7xsxFf0 PhCxESLvwpTedMjnQNZ6x9CxOu1 5T13gMQxbGADhIQIxLUPcUPAcwY qhyu1leQ6cVg7+PGNvbCB3 uWL4dO0oYBJyExG0ANudZ774ZwN pwOJsRjpqk7nmo1bknGj7FbPeQR LfjbWjxYgqWDZ9p0FjOw77 C89kBVogAXAsRZGwBECdURAcfLp lka7gkA7eXf4+RR9ky5rjyk54rE 48dHI+IFNcHZC2rJbcBUbl SULmgV9uGKqgJtS4ZCGjHkJctT1 8tCYkXWzaRg9vfCcumKceJC6aYI Jbynemh350IzNhl6xoCENh nUGqBXtxBWB7P06mo7N9JJHxQWE iVKC0sOP8qU7ebArgvmjytZZztN aqhiThgEtnPYtmYCosP931 IHRvcDsnPlBhdGllbnQgTmFtZTo 1U5PeYfo8DVOokEklND4ylJLbLG muAf7cbEzjrPdqFD8uUDCa iiaxm816PvUvk2spSGGtcSLyTYx gIKV0O37vo4G7CPNhNBJaSKX9jP R2fK0jyNlaokvpeYDcdVka amVkcOabSOaqRUsiV778KBKwrPr xDsLhrpOjVZUijIJ0LL30FN55xE Gjn6R6iMZ5O4OoORMkxurs dtqanWI5LFOmHOXmoA02By2vlOe pNa4nVSLbLZR8TESznTLaC7ZssG 1zDlAmVRDtJWYvH1WujRGc WOzwJ337RYcsGrO9YOFoahUjF2U bMMLnkZhoMoM6y7I2Si7NG0G5UR 08AB11cUPaz9H8sRM7L9Nb EDGhkhtgnrnabBY0EZQaQZLonE8 6Wc7znVpwHi5bIZNdMCE1LOQklB TjS8JjjG3aUdVmNFMnQKUu C8SywYQnEDyyY519VBhjVzC9QFH xbsBbI9XyANCfxCzzBlX9m4O4Jx 4YXMw8EX38UE71uFXzx8D4 mFN7P4NaAMGjjyvnnyotdFA2NQA hJEBckM31Je6voFfgYi6tRCXeQJ L7LBVqjFQrJ6FghH6cUzIg VIRyXUTeR8GwdFHaNEbrQ483UIr mZzD7MUQhtoXxD1GfCPOrqXwgUn B2j4B0Ms9DUAQqGV40FXY9 pTZ2MJ67RL70U8RyPkgfiDBhtOA +PHRhYmxlIHdpZHRoPScxMDAlJy NhvWgeHC1rBw5zKAYnROGe uBnrzENkEkNps5ryXGPdJCznDN8 dhIlwZ8JdgIP4MSPqj7s7Fl41G4 7bI2WbvHG+DXRhqKQ2eDP9 pT6vJjAzFqR7NMrbE409CgUrgDX aQctqg4wgc5rpqCn3OqU6QCFhxc PooLmjNQD7a6KbWz21T41m IHdpZHRoPSIxNSUiIHZhbGlnbj0 uaP0nWk5+WYRllEG1xXC7oU8dJr KbQaC5XNuoM228RaPpqETk Qwzuj5sti3dfxNy8QjEaAITtikW tdXngOUL6w1NtTf11P3SjaAatn5 OhGek6yk38wCXcb2F1jTP1 E2KtVHBdkjxidXCwhRzdVN3yJAT zcntxZRYutU1gZDInC5x3VvUdZt D3HBlcT2BytoC2YEEueKWt ORtyIKY0R74gf2G7BZJjWMPgSIN 4tCO8pN4hsNuawjpxcCYwrYlyrr IqkCgtPLkkBSzcG484NUXx dIxxKCPucD6wQQGizUGgwXhrYJ2 xSFBxnbjkRooXLtVIX7RJPMTYAN 7NPMCEV3IRPVbBTPTSXOZO RTwvdGQ+OMWgLWH9aQuoNBetKSK rzJ2uEUSnK7d7IcAxFlX4BCocJ2 JeYNOskncjJl19zD2tSnLm BiO5CXcvB5YsxeP7WUKsuTYcVSu qXYD4S79lu4P7LKHhLWZdFEX8gI Q0xC4lrEhrpjznjDNguHec jhLdeIxtWDzwQRedQ746AYVfyRf gGsQjZiV9GaZtHHB0X2FiZwx2MX JulNspFR6kcOAsFPszNx4d iWomsBrnOQ0mXGOovpjeNTRzhW1 qVUCdvPLigAdiJY8iSEYnnnjut0 45BuIyWIV9VCEenVIqT2Gn zS0dDqHcYYNbMSBsP9QrsJLqXUm aW565YMimMnY9FYEzbeLgY4GiYA AtsPzhUmN3f8W5Kl5cDmVB ZWFyczwvdGQ+RLYkQNH8yJaoLOx aSFOkpE7dOMFaG7q7LpKaWwJ4YS fhS3WcKBGlhlgxRp18wO6f LpIiMxU5OKvkV1FlrvL6CKLijJT fRBrjFWW8J87zc8E2ETPdBDUaPT Y6eIW2tO5neQitcbgvhOVb vWxjmvAqtIujKDaiFGuuW383LPC vcDsnPkZFTUFMRTwvdGQ+PHRkIH S9yRexGCwxWVRcfJ0nUTXb A4x5PpNgNlA9BLoaC7DlZRWjkoz pJt19oV4pBsNnZnQ7KQmdJ3Pkuq F6JZXnmAGzRUxuMLE0U06m w0E9HASkCRTuNBL8jHE3rU9xiEd nbjogbGVmdDsgdmVydGljYWwtYW uzG120ZRDfnHhuYm5AEA24 CO38W9AcZkiipHKwqMQ+PHRhYmx lIHdpZHRoPScxMDAlJyBzdHlsZT 6nJy4sICMjMRGbnUvdrHBp EiPnd0egVMAmJNpqNS4vdDjxU9O pdRV7YKZoa2z6Cb75B77rS5TvdK A+DKWmxSO0cBI7aN8gVkTg GyN1VSgpH028ZqZzcUIjZwfiy7p ha2plpLl3OoRnPAFvtmBfkJmuSO M0e8GxLj46L31zLZoaSDIb CHJlVFLuCZDfvBhhwt2guP4zIz6 +YWCjxKV5aUE7rF2gCuNlRvV0GJ fjK860GhMfnMFaFovtL95x M6AgnEF+BGDeKfh4VMUbxGdaLJ7 saPDtIKcwZw3vDZP5SiXkWxYgCV tbH9XaPQMsseceiqjijWA0 SPVcFAKusW44Eh6wgZyhXw0vOEU aNJR5FHKalUMcQ8TtlZ2bWxRrEH HeQXMhU0ObvMDuFCijY243 LDipMmP7FPPducWfH1RgULHjlTk sOyO2v1G9Jn7JjXearSMcHH6wDp ZiKDo2J9EhUxh2JRVxaFxe GO0uwBVxFFkrHe2bkBfrtAwuFM3 yDEItwrmtl953KaAlb4abYRYzaV RgWAvaNRP9M50yp0C0WUCr ASIfEFM9wFM9xF1wuUrnrjlntBG ogShvblEenKdzWArdEQqkM468JR GdbHvxIbJJJgb7T8TvIib9 KJIczUpaCY1ugHPtWJlvTt0xyXb ucCqdYU7pSZZxwhxtx248XhCzd8 buRYXeuUHzHMkjXEV6Y42z x6S4RIPnLTGvYGZ0dLX0fE1nyPm nbjogbGVmdDsgdmVydGljYWwtYW unU489FNTeyNuvNp4LQrs9 D8AfTgy5OVGenTkgCD5czTZrMIo vUn2gaYolxXsbME4vCCWafocgr1 49LzZtg7iaSLZmeMFnUVdf FXC7T17bv5K9FOXsSMVhWBD7oNE 4uB7dwJredcxsmIAasMrdhpOefM uzUFwhFVrsH249JNDmpUwy PlBheWVyOjwvdGQ+OM67ew74J3G kOtnpPrx7TIPrMDV7dKX7xZ6eVD ZcAWyns5Y1aYH3J4LlmoXt ci1 (more content not included)... Normal [facility] ED Clinical Summaryon 2021 ED Clinical Summary [facility] ? Urgent Care [address] [place] [id number] Clinical Summary PERSON INFORMATION Name: SHEYLA LEA Age: 16 Years Sex: FEMALE : 2005 MRN: Acct#: Visit Reason: UC - Ankle/Foot/Toe Pain or Swelling; UC - Foot/Toe Injury; RT FOOT PAIN Arrival: 02/19/2022 19:02:05 Discharge: 02/19/2022 20:18:00 LOS: 000 01:16 Check In: 02/19/2022 19:02:05 Checkout: 02/19/2022 20:18:00 Address: [address] [place] [address] PCP: KEVIN STOKES PROVIDER INFORMATION Provider Role Assigned Unassigned Ellen Mac [employer]AL [employer]PPLY MANAGER Nurse 02/19/2022 19:06:02 Estela NAVA, Levy ED PA 02/19/2022 19:16:21 VITALS INFORMATION Vital [...] Pain Follow-Up: With: Address: When: KEVIN STOKES [address] [place], [place] [id number] [facility] (1) Comments: Radiologist interpretation of the x-rays negative for fracture or dislocation No weightbearing for the next 2 days, can then slowly begin to introduce weightbearing as tolerated. Wear the Evon wrap while active, remove when sleeping, napping or showering Loosen or remove the evon wrap with any numbness or tingling, or blue discoloration If the pain continues recommended to follow-up with your clinical operations specialist or can follow-up with our local clinical operations specialist Dr. Ramírez's office is located at [address] [place] [address] Continue on the acronym R.I.C.E. Rest, Ice Compression, Elevation this will help with pain Can ice for 15-20 minutes every 3 hours Can take 600mg of motrin/ibuprofen every 6-8 hours DIAGNOSIS: Ankle pain; Foot pain Patient Understands: Yes - Patient/family/caregiver verbalizes understanding of instructions given Comment: Normal [facility] ED Patient Summaryon 022 ED Patient Summary [facility] ? Urgent Care [address] [place], [place] [id number] PATIENT DISCHARGE INSTRUCTIONS Patient Information Name: SHEYLA LEA Age: 16 Years Date of : 2005 Reason For Visit: UC - Ankle/Foot/Toe Pain or Swelling; UC - Foot/Toe Injury; RT FOOT PAIN Arrival Time: 02/19/2022 19:02:05 Primary Care Physician: KEVIN STOKES Attending Physician: Levy Bee Comment: Patient Education With: Address: When: KEVIN STOKES [address] [place] [address] Business (1) Comments: Radiologist interpretation of [...] pain continues recommended to follow-up with your clinical operations specialist or can follow-up with our local clinical operations specialist Dr. Ramírez's office is located at [address] [place] [address] Continue on the acronym R.I.C.E. Rest, Ice [...] clean and dry. General instructions ? Take auxx-mif-fsmvyao and prescription medicines only as told by [...] provider. Document Revised: 08/06/2021 Document Reviewed: 08/06/2021 [employer] Patient Education ? 2021 [employer] Ankle Pain The ankle joint holds [...] move your an (more content not included)... [facility] Urgent Care Note- Provideron 02-19-2022 Urgent Care Note- Provider Patient: SHEYLA LEA Age: 16 years Sex: FEMALE : 2005 Associated Diagnoses: Ankle pain; Foot pain Author: Levy Bee Basic Information Time seen: Date & time 02/19/2022 19:06:00. History source: Patient. History limitation: None. History of Present Illness Patient is a 16-year-old female complaint of right foot and ankle pain. States he jumped during mormonism today and landed awkwardly on her foot [...] been selected or recorded.. Surgical history: Myringotomy ([id number]). History of tonsillectomy ([id number]).. Family history: No family history items have [...] wrap. Impression and Plan Diagnosis Ankle pain (GVM65-KH M25.579, Discharge, Medical) Foot pain (ZYW93-OE M79.673, Discharge, Medical) Plan Patient was given the following educational materials: Ankle Pain, Foot Pain, Foot Pain, Ankle Pain, Foot Pain, Ankle Pain. Follow up with: KEVIN LANTIGUA Radiologist interpretation of the x-rays negative for fracture or dislocation If the pain continues recommended to follow-up with your clinical operations specialist or can follow-up with our local clinical operations specialist Dr. Ramírez's office is located at [address] [place] [address] There is no obvious fracture or deformity on review the x-ray today. Official radiological interpretation will be available in the next 24-36 hours you will be notified of any discrepancy in the interpretation. No weightbearing for the next 2 days, can then slowly b (more content not included)... Normal [facility] [place] 022 Urgent Care Record [facility] ? Urgent Care [address] [place] [address] PATIENT DISCHARGE INSTRUCTIONS Patient Information Name: SHEYLA LEA Age: 16 Years Date of : 2005 Reason For Visit: UC - Ankle/Foot/Toe Pain or Swelling; UC - Foot/Toe Injury; RT FOOT PAIN Arrival Time: 02/19/2022 19:02:05 Primary Care Physician: KEVIN STOKES Attending Physician: Levy Bee Comment: Visit Diagnosis: Diagnoses This Visit Ankle pain (M25.579) Foot pain (M79.673) UC - Ankle/Foot/Toe Pain or Swelling ([id number]) UC - Foot/Toe Injury ([id number]) If you received any narcotics, sedation, or [...] any legal documents With: Address: When: KEVIN DIVYA [address] [place], [place] [id number] Business (1) Comments: Radiologist interpretation of the [...] pain continues recommended to follow-up with your clinical operations specialist or can follow-up with our local clinical operations specialist Dr. Ramírez's office is located at [address] [place] [address] Continue on the acronym R.I.C.E. Rest, Ice Compression, Elevation this will help with pain Can ice for 15-20 minutes every 3 hours Can take 600mg of motrin/ibuprofen every 6-8 hours Medication Information: The exam and treatment you received today in the [facility] were for an urgent problem and are not intended as complete care. It is important for you to follow up with a doctor, nurse practitioner, or physician?s oncology physician assistant for ongoing care. If your symptoms [...] so we can reach you if necessary. [facility] has provided you with a complete list of medications post discharge. Please inform your home theater experience expert/provider of your visit and for further instruction [...] are safe fo (more content not included)... Normal [facility] XR Ankle Complete Righton XR [...] Tavo Bynum MD 02/19/22 7:53 pm Technologist: [facility] XR Foot Complete Righton XR Foot [...] Tavo Bynum MD 02/19/22 8:01 pm Technologist: [facility] Vital Signs Date Time Vital Sign Value Performing Clinician Facility 12-19-2024 13:18-0400 Body mass index (BMI) [Ratio] 41.12 kg/m2 GerardoKeyword Rockstar DO Work Phone: [facility] 12-19-2024 13:18-0400 Body weight 105.29 kg Gerardo Viri DO Work Phone: [facility] 12-19-2024 13:18-0400 Diastolic blood pressure 78 mm[Hg] Gerardo Viri DO Work Phone: [facility] 12-19-2024 13:18-0400 Systolic blood pressure 118 mm[Hg] Gerardo Viri DO Work Phone: [facility] 12-07-2024 15:22-0400 Body mass index (BMI) [Ratio] 41.24 kg/m2 Viri Ob [facility] 12-07-2024 15:22-0400 Body weight 105.6 kg Viri Ob [facility] 11-22-2024 13:45-0400 Body mass index (BMI) [Ratio] 40.23 kg/m2 Nichelle Sanchez PA Work Phone: [facility] 11-22-2024 13:45-0400 Body weight 103.02 kg Nichelle Sanchez PA Work Phone: [facility] 11-22-2024 13:45-0400 Diastolic blood pressure 80 mm[Hg] Nichelle Sanchez PA Work Phone: [facility] 11-22-2024 13:45-0400 Systolic blood pressure 128 mm[Hg] Nichelle Sanchez PA Work Phone: [facility] 04-10-2024 09:35-0500 Body mass index (BMI) [Ratio] 36.99 kg/m2 Gerardo Viri DO Work Phone: [facility] 04-10-2024 09:35-0500 Body weight 94.71 kg Gerardo Viri DO Work Phone: [facility] 04-10-2024 09:35-0500 Diastolic blood pressure 74 mm[Hg] Gerardo Viri DO Work Phone: [facility] 04-10-2024 09:35-0500 Systolic blood pressure 120 mm[Hg] Gerardo Viri DO Work Phone: [facility] 03-31-2024 08:44-0500 Body height 160 cm Anita Elmore FACTORY CLERK-BLANKMAKER Work Phone: [facility] 03-31-2024 08:44-0500 Body mass index (BMI) [Ratio] 36.6 kg/m2 Anita Elmore FACTORY CLERK-BLANKMAKER Work Phone: [facility] 03-31-2024 08:44-0500 Body temperature 97.59 [degF] Anita Elmore FACTORY CLERK-BLANKMAKER Work Phone: [facility] 03-31-2024 08:44-0500 Body weight 93.71 kg Anitalarry Elmore FACTORY CLERK-BLANKMAKER Work Phone: [facility] [employer] [facility] 03-31-2024 08:44-0500 Diastolic blood pressure 70 mm[Hg] Anitalarry Elmore FACTORY CLERK-BLANKMAKER Work Phone: [facility] 03-31-2024 08:44-0500 Heart rate 90 /min Anitalarry Elmore FACTORY CLERK-BLANKMAKER Work Phone: [facility] 03-31-2024 08:44-0500 Respiratory rate 18 /min Anitalarry Elmore FACTORY CLERK-BLANKMAKER Work Phone: [facility] 03-31-2024 08:44-0500 SaO2% (BldA) [Mass fraction] 100 % Anita Elmore FACTORY CLERK-BLANKMAKER Work Phone: [facility] 03-31-2024 08:44-0500 Systolic blood pressure 116 mm[Hg] Anita Elmore FACTORY CLERK-BLANKMAKER Work Phone: [facility] 03-07-2024 14:44-0400 Body height 160 cm Gerardo Viri DO Work Phone: [facility] 03-07-2024 14:44-0400 Body mass index (BMI) [Ratio] 36.67 kg/m2 Gerardo Viri DO Work Phone: [facility] 03-07-2024 14:44-0400 Body weight 93.89 kg Gerardo Viri DO Work Phone: [facility] 03-07-2024 14:44-0400 Diastolic blood pressure 82 mm[Hg] Gerardo Viri DO Work Phone: [facility] 03-07-2024 14:44-0400 Systolic blood pressure 138 mm[Hg] Gerardo Viri DO Work Phone: [facility] 02-18-2024 11:58-0400 Body height 160 cm Anitalarry Elmore FACTORY CLERK-BLANKMAKER Work Phone: [facility] 02-18-2024 11:58-0400 Body mass index (BMI) [Ratio] 35.78 kg/m2 Anita Elmore FACTORY CLERK-BLANKMAKER Work Phone: [facility] 02-18-2024 11:58-0400 Body temperature 98.1 [degF] Anita Elmore FACTORY CLERK-BLANKMAKER Work Phone: [facility] 02-18-2024 11:58-0400 Body weight 91.63 kg Anita Elmore FACTORY CLERK-BLANKMAKER Work Phone: [facility] 02-18-2024 11:58-0400 Diastolic blood pressure 60 mm[Hg] Anita Elmore FACTORY CLERK-BLANKMAKER Work Phone: [facility] 02-18-2024 11:58-0400 Heart rate 79 /min Anita Elmore FACTORY CLERK-BLANKMAKER Work Phone: [facility] 02-18-2024 11:58-0400 Respiratory rate 18 /min Anita Elmore FACTORY CLERK-BLANKMAKER Work Phone: [facility] 02-18-2024 11:58-0400 SaO2% (BldA) [Mass fraction] 99 % Anita Elmore FACTORY CLERK-BLANKMAKER Work Phone: [facility] 02-18-2024 11:58-0400 Systolic blood pressure 100 mm[Hg] Anita Elmore FACTORY CLERK-BLANKMAKER Work Phone: [facility] 02-03-2024 13:24-0400 Body height 160 cm Anita Elmore FACTORY CLERK-BLANKMAKER Work Phone: [facility] 02-03-2024 13:24-0400 Body mass index (BMI) [Ratio] 35.76 kg/m2 Anita Elmore FACTORY CLERK-BLANKMAKER Work Phone: [facility] 02-03-2024 13:24-0400 Body temperature 98.8 [degF] Anita Elmore FACTORY CLERK-BLANKMAKER Work Phone: [facility] 02-03-2024 13:24-0400 Body weight 91.58 kg Anita Elmore FACTORY CLERK-BLANKMAKER Work Phone: [facility] [employer] [facility] 02-03-2024 13:24-0400 Diastolic blood pressure 70 mm[Hg] Anita Elmore FACTORY CLERK-BLANKMAKER Work Phone: [facility] [employer] [facility] 02-03-2024 13:24-0400 Heart rate 85 /min Anitalarry Elmore FACTORY CLERK-BLANKMAKER Work Phone: [facility] 02-03-2024 13:24-0400 Respiratory rate 18 /min Anita Elmore FACTORY CLERK-BLANKMAKER Work Phone: [facility] 02-03-2024 13:24-0400 SaO2% (BldA) [Mass fraction] 99 % Anitalarry Elmore APRN-BLANKMAKER Work Phone: [facility] 02-03-2024 13:24-0400 Systolic blood pressure 100 mm[Hg] Anita Elmore APRN-BLANKMAKER Work Phone: [facility] 01-25-2024 14:23-0400 Body mass index (BMI) [Ratio] 36.14 kg/m2 Gerardo Viri DO Work Phone: [facility] 01-25-2024 14:23-0400 Body weight 92.53 kg Gerardo Viri DO Work Phone: [facility] 01-25-2024 14:23-0400 Diastolic blood pressure 78 mm[Hg] Gerardo Viri DO Work Phone: [facility] 01-25-2024 14:23-0400 Systolic blood pressure 126 mm[Hg] Gerardo Viri DO Work Phone: [facility] 11-23-2023 16:09-0400 Body height 160 cm Alphonso Furlong DO Work Phone: [facility] 11-23-2023 16:09-0400 Body mass index (BMI) [Ratio] 38.85 kg/m2 Alphonso Furlong DO Work Phone: [facility] [employer] [facility] 11-23-2023 16:09-0400 Body temperature 98.2 [degF] Alphonso Furlong DO Work Phone: [facility] 11-23-2023 16:09-0400 Body weight 99.47 kg Alphonso Furlong DO Work Phone: [facility] 11-23-2023 16:09-0400 Diastolic blood pressure 60 mm[Hg] Alphonso Furlong DO Work Phone: [facility] 11-23-2023 16:09-0400 Heart rate 82 /min Alphonso Furlong DO Work Phone: [facility] 11-23-2023 16:09-0400 Respiratory rate 20 /min Alphonso Furlong DO Work Phone: [facility] 11-23-2023 16:09-0400 SaO2% (BldA) [Mass fraction] 98 % Alphonso Furlong DO Work Phone: [facility] 11-23-2023 16:09-0400 Systolic blood pressure 114 mm[Hg] Alphonso Furlong DO Work Phone: [facility] 10-28-2023 16:31-0400 Body height 160 cm Anita Elmore FACTORY CLERK-BLANKMAKER Work Phone: [facility] 10-28-2023 16:31-0400 Body mass index (BMI) [Ratio] 39.13 kg/m2 Anitalarry Elmore FACTORY CLERK-BLANKMAKER Work Phone: [facility] 10-28-2023 16:31-0400 Body temperature 98.71 [degF] Anita Elmore FACTORY CLERK-BLANKMAKER Work Phone: [facility] 10-28-2023 16:31-0400 Body weight 100.2 kg Anitalarry Elmore FACTORY CLERK-BLANKMAKER Work Phone: [facility] 10-28-2023 16:31-0400 Diastolic blood pressure 60 mm[Hg] Anita Elmore FACTORY CLERK-BLANKMAKER Work Phone: [facility] 10-28-2023 16:31-0400 Heart rate 71 /min Anita Elmore FACTORY CLERK-BLANKMAKER Work Phone: [facility] 10-28-2023 16:31-0400 Respiratory rate 18 /min Anita Elmore FACTORY CLERK-BLANKMAKER Work Phone: [facility] 10-28-2023 16:31-0400 SaO2% (BldA) [Mass fraction] 98 % Anita Elmore FACTORY CLERK-BLANKMAKER Work Phone: [facility] 10-28-2023 16:31-0400 Systolic blood pressure 94 mm[Hg] Anita Elmore FACTORY CLERK-BLANKMAKER Work Phone: [facility] 09-28-2023 11:36-0400 Body height 160 cm Lima Toussaint FACTORY CLERK-ENERGY CONSERVATION DIRECTOR Work Phone: [facility] 09-28-2023 11:36-0400 Body mass index (BMI) [Ratio] 38.12 kg/m2 Lima Toussaint FACTORY CLERK-ENERGY CONSERVATION DIRECTOR Work Phone: [facility] 09-28-2023 11:36-0400 Body temperature 98.6 [degF] Lima Toussaint FACTORY CLERK-ENERGY CONSERVATION DIRECTOR Work Phone: [facility] 09-28-2023 11:36-0400 Body weight 97.61 kg Lima Toussaint FACTORY CLERK-ENERGY CONSERVATION DIRECTOR Work Phone: [facility] 09-28-2023 11:36-0400 Diastolic blood pressure 60 mm[Hg] Lima Toussaint FACTORY CLERK-ENERGY CONSERVATION DIRECTOR Work Phone: [facility] 09-28-2023 11:36-0400 Heart rate 86 /min Lima Toussaint APRN-ENERGY CONSERVATION DIRECTOR Work Phone: [facility] 09-28-2023 11:36-0400 SaO2% (BldA) [Mass fraction] 98 % Lima Toussaint FACTORY CLERK-ENERGY CONSERVATION DIRECTOR Work Phone: [facility] 09-28-2023 11:36-0400 Systolic blood pressure 110 mm[Hg] Lima Toussaint FACTORY CLERK-ENERGY CONSERVATION DIRECTOR Work Phone: [facility] 08-25-2023 13:04-0400 Body height 160 cm Anita Elmore FACTORY CLERK-BLANKMAKER Work Phone: [facility] 08-25-2023 13:04-0400 Body mass index (BMI) [Ratio] 38.48 kg/m2 Anitalarry Elmore FACTORY CLERK-BLANKMAKER Work Phone: [facility] 08-25-2023 13:04-0400 Body temperature 98.29 [degF] Anita Elmore FACTORY CLERK-BLANKMAKER Work Phone: [facility] 08-25-2023 13:04-0400 Body weight 98.52 kg Anita Elmore FACTORY CLERK-BLANKMAKER Work Phone: [facility] [employer] [facility] 08-25-2023 13:04-0400 Diastolic blood pressure 62 mm[Hg] Anita Elmore FACTORY CLERK-BLANKMAKER Work Phone: [facility] 08-25-2023 13:04-0400 Heart rate 92 /min Anita Elmore FACTORY CLERK-BLANKMAKER Work Phone: [facility] 08-25-2023 13:04-0400 SaO2% (BldA) [Mass fraction] 97 % Anitalarry Elmore FACTORY CLERK-BLANKMAKER Work Phone: [facility] [employer] [facility] 08-25-2023 13:04-0400 Systolic blood pressure 110 mm[Hg] Anita Elmore FACTORY CLERK-BLANKMAKER Work Phone: [facility] 08-25-2023 07:09-0400 Body height 160 cm Pac 3 Work Phone: [facility] 08-25-2023 07:09-0400 Body temperature 97.59 [degF] Pacc 3 Work Phone: [facility] 08-25-2023 07:09-0400 Body weight 98.7 kg Pac 3 Work Phone: [facility] 08-25-2023 07:09-0400 Diastolic blood pressure 63 mm[Hg] Pac 3 Work Phone: [facility] 08-25-2023 07:09-0400 Heart rate 66 /min Pac 3 Work Phone: [facility] 08-25-2023 07:09-0400 SaO2% (BldA) [Mass fraction] 100 % Pac 3 Work Phone: [facility] 08-25-2023 07:09-0400 Systolic blood pressure 116 mm[Hg] [facility] 3 Work Phone: [facility] 04-02-2023 07:15-0500 Body height 160.02 cm Aime Schwerer Other [employer] Other 04-02-2023 07:15-0500 Body mass index (BMI) [Ratio] 40.07 kg/m2 Aime Schwerer Other [employer] Other 04-02-2023 07:15-0500 Body temperature 99.1 [degF] Aime Schwerer Other [facility] [employer] Other 04-02-2023 07:15-0500 Body weight 102.6 kg Aime Schwerer Other [facility] [employer] Other 04-02-2023 07:15-0500 Diastolic blood pressure 78 mm[Hg] Aime Schwerer Other [facility] [employer] Other 04-02-2023 07:15-0500 SaO2% (BldA) [Mass fraction] 99 % Aime Schwerer Other [facility] [employer] Other 04-02-2023 07:15-0500 Systolic blood pressure 128 mm[Hg] Aime Schwerer Other [facility] Other 01-15-2023 10:45-0400 Body height 158.75 cm Aime Schwerer Other [facility] [employer] Other 01-15-2023 10:45-0400 Body mass index (BMI) [Ratio] 40.33 kg/m2 Aime Schwerer Other [facility] Other 01-15-2023 10:45-0400 Body weight 101.65 kg Aiem Schwerer Other [facility] Other 01-15-2023 10:45-0400 Diastolic blood pressure 78 mm[Hg] Aime Schwerer Other [facility] Other 01-15-2023 10:45-0400 Respiratory rate 18 /min Aime Schwerer Other [facility] Other 01-15-2023 10:45-0400 SaO2% (BldA) [Mass fraction] 100 % Aime Schwerer Other [facility] [employer] Other 01-15-2023 10:45-0400 Systolic blood pressure 138 mm[Hg] Aime Schwerer Other [facility] [employer] Other 05-28-2022 08:32-0500 Body height 167.6 cm Latasha Bobo MD Work Phone: [facility] 05-28-2022 08:32-0500 Body mass index (BMI) [Percentile] Per age and sex 97.14 % Latasha Bobo MD Work Phone: [facility] 05-28-2022 08:32-0500 Body weight 93.44 kg Latasha Bobo MD Work Phone: [facility] 04-15-2022 14:01-0500 Body height 160 cm Mana Bjvissuto FACTORY CLERK.BLANKMAKER Work Phone: [facility] 04-15-2022 14:01-0500 Body mass index (BMI) [Percentile] Per age and sex 98.09 % Mana Bjvissuto FACTORY CLERK.BLANKMAKER Work Phone: [facility] 04-15-2022 14:01-0500 Body weight 91.63 kg Mana Bonángelsuto FACTORY CLERK.BLANKMAKER Work Phone: [facility] 04-15-2022 14:01-0500 Diastolic blood pressure 74 mm[Hg] Mana Bonvissuto FACTORY CLERK.BLANKMAKER Work Phone: [facility] 04-15-2022 14:01-0500 Heart rate 77 /min Mana Bjvissuto FACTORY CLERK.BLANKMAKER Work Phone: [facility] 04-15-2022 14:01-0500 Systolic blood pressure 124 mm[Hg] Mana Bonvissuto FACTORY CLERK.[facility] Work Phone: [facility] Encounters Encounter Date Encounter Type Care Provider Facility Start: 12-19-2024 End: 12-19-2024 Bamboo flowsheet Gerardo Viri DO Work Phone: [facility] Start: 12-19-2024 End: 12-19-2024 Bamboo flowsheet Gerardo Viri DO Work Phone: [facility] Start: 12-19-2024 End: 12-19-2024 flow sheet Gerardo Viri DO Work Phone: [facility] Comment on above: First trimester preg carlos ([facility]); 9 weeks gestation of ([facility]); Encounter to discuss test results; headache, antepartum ([facility]); Nausea Start: 12-19-2024 End: 12-19-2024 ambulatory GERARDO VIRI Not Available Start: 12-18-2024 End: 12-18-2024 ambulatory NON STAFF Facility:[facility] Start: 12-16-2024 End: 12-16-2024 Clinisync Result Encounter Gerardo Viri DO Work Phone: [facility] Unsolicited Start: 12-16-2024 End: 12-16-2024 Clinisync Result Encounter Gerardo Viri DO Work Phone: [facility] Unsolicited Start: 12-07-2024 End: 12-07-2024 Office outpatient visit 5 minutes Viri Nurse [facility] Comment on above: GA: 7w5d Start: 12-07-2024 End: 12-07-2024 ambulatory NICHELLE SANCHEZ Not Available Start: 11-30-2024 End: 11-30-2024 ambulatory NICHELLE LILIANA Not Available Start: 11-22-2024 End: 11-22-2024 Bamboo flowsheet Nichelle NAVA Work Phone: [facility] Start: 11-22-2024 End: 11-22-2024 Bamboo flowsheet Nichelle NAVA Work Phone: [facility] Start: 11-22-2024 End: 11-22-2024 ambulatory NICHELLE SANCHEZ Not Available Start: 11-22-2024 End: 11-22-2024 Office outpatient visit 15 minutes Nichelle NAVA Work Phone: [facility] Comment on above: Nausea (Primary Dx); Cramping affecting , antepartum ([facility]); Missed menses Start: 11-18-2024 End: 11-18-2024 Clinisync Result Encounter Gerardo Viri DO Work Phone: [facility] Unsolicited Start: 11-18-2024 End: 07-05-2025 Clinisync Result Encounter Gerardo Viri DO Work Phone: [facility] Unsolicited Start: 11-13-2024 End: 11-13-2024 Clinisync Result Encounter Gerardo Viri DO Work Phone: [facility] Unsolicited Start: 11-13-2024 End: 11-13-2024 Clinisync Result Encounter Gerardo Viri DO Work Phone: [facility] Unsolicited Start: 10-12-2024 End: 10-12-2024 Emergency department patient visit REGINO Cramer [facility] Start: 05-09-2024 End: 05-09-2024 Bamboo flowsheet Loretta Winkler MD Work Phone: [facility] Start: 05-09-2024 End: 05-09-2024 Bamboo flowsheet Loretta Winkler MD Work Phone: [facility] Start: 05-09-2024 End: 05-09-2024 ambulatory LORETTA WINKLER Not Available Start: 04-26-2024 End: 05-01-2024 Refill Anita Elmore FACTORY CLERK-BLANKMAKER Work Phone: [facility] Internal Medicine - Family Medicine Start: [...] Start: 04-03-2024 End: 04-03-2024 Orders Only Anita Elmore FACTORY CLERK-BLANKMAKER Work Phone: [facility] Internal [facility] - Family Medicine Comment on above: Postoperative hypoth yroidism (Primary Dx) Start: 03-31-2024 End: 03-31-2024 ambulatory [facility] Start: 03-31-2024 End: 03-31-2024 Office outpatient visit 15 minutes Anita Elmore FACTORY CLERK-BLANKMAKER Work Phone: [facility] Internal Medicine - Family Medicine Comment on above: Postoperative hypoth yroidism (Primary Dx); Acute nonintractable headache, unspecified headache type; Gastroesophageal reflux disease, unspecified whether esophagitis present; Immunization due Start: 03-31-2024 End: 03-31-2024 ambulatory [facility] Start: 03-20-2024 End: 03-20-2024 Clinisync Result Encounter Gerardo Viri DO Work Phone: [facility] Unsolicited Start: 03-20-2024 End: 03-20-2024 Clinisync Result Encounter Gerardo Viri DO Work Phone: [facility] Unsolicited Start: 03-18-2024 End: 03-20-2024 Refill Anita Elmore FACTORY CLERK-BLANKMAKER Work Phone: [facility] Internal Medicine - Family Medicine Start: 03-17-2024 End: 03-17-2024 Clinisync Result Encounter [...] 03-13-2024 End: 03-13-2024 Orders Only Anita Natalia Catarina FACTORY CLERK-BLANKMAKER [facility] Start: 03-07-2024 End: 03-07-2024 Bamboo flowsheet Gerardo Viri DO Work Phone: [facility] Start: 03-07-2024 End: 03-07-2024 Bamboo flowsheet Gerardo Viri DO Work Phone: [facility] Start: 03-07-2024 End: 03-07-2024 Office outpatient visit 15 minutes Gerardo Viri DO Work Phone: [facility] Comment on above: Mood disorder (CMS/H CC); Anxious mood; Hormone imbalance; Irregular periods; Weight gain Start: 03-07-2024 End: 03-07-2024 ambulatory GERARDO VIRI Not Available Start: 03-03-2024 End: 03-03-2024 ambulatory Brooke Natalia Conde Facility:[facility] Start: 03-01-2024 End: 03-02-2024 Refill Anita Fisher Rauch FACTORY CLERK-BLANKMAKER [facility] Start: 02-23-2024 End: 02-23-2024 [facility] Start: 02-21-2024 End: 02-21-2024 Orders Only Anita Elmore FACTORY CLERK-BLANKMAKER [facility] Comment on above: Postoperative hypoth yroidism (Primary Dx) Start: 02-18-2024 End: 02-18-2024 [facility] Start: 02-18-2024 End: 02-18-2024 Office outpatient visit 15 minutes Anita Elmore FACTORY CLERK-BLANKMAKER Work Phone: [facility] Internal [facility] - Family Medicine Comment on above: Gastroesophageal ref lux disease, unspecified whether esophagitis present (Primary Dx); Postoperative hypothyroidism; Acute hemorrhoid; Delayed gastric emptying; Influenza vaccination administered at current visit Start: 02-18-2024 End: 02-18-2024 ambulatory [facility] Start: 02-17-2024 End: 02-18-2024 Refill Anita Elmore FACTORY CLERK-BLANKMAKER Work Phone: [facility] Internal [facility] - Family Medicine Start: 02-10-2024 End: 02-10-2024 Orders Only Anita Elmore FACTORY CLERK-BLANKMAKER Work Phone: [facility] Internal [facility] - Family Medicine Comment on above: Esophageal dysphagia (Primary Dx); Gastroesophageal reflux disease without esophagitis Start: 02-04-2024 End: 02-04-2024 Orders Only Anita Elmore FACTORY CLERK-BLANKMAKER Work Phone: [facility] Internal [facility] - Family Medicine Start: 02-04-2024 End: 02-05-2024 Evaluation and management of inpatient [facility] Start: 02-03-2024 End: 02-03-2024 ambulatory NICHELLE SANCHEZ [...] Office outpatient visit 25 minutes Anita Elmore FACTORY CLERK-BLANKMAKER Work Phone: [facility] Internal Medicine Family Medicine Comment on above: Gastroesophageal ref lux disease, unspecified whether esophagitis present (Primary Dx); Esophageal dysphagia; Allergic contact dermatitis, unspecified trigger; Chronic idiopathic constipation Start: 02-03-2024 End: 02-03-2024 ambulatory ANITA ELMORE [facility] Start: 01-28-2024 End: 01-28-2024 Refill Anita Elmore FACTORY CLERK-BLANKMAKER Work Phone: [facility] Internal [facility] - Family Medicine Start: 01-26-2024 End: 01-26-2024 Telephone encounter Roxana Han [facility] Internal Medicine Family [facility] Start: 01-25-2024 End: 01-25-2024 Postop follow up visit related to original px Gerardo Viri DO Work Phone: [facility] Comment on above: Anxiety, generalized (CMS/HCC) (Primary Dx); Postoperative visit; S/P laparoscopy; Encounter for repeat prescription of oral contraceptives Start: 01-25-2024 End: 01-25-2024 ambulatory GERARDO VIRI Not Available Start: 01-25-2024 End: 01-25-2024 Bamboo flowsheet Gerardo Viri DO Work Phone: [facility] Start: 01-25-2024 End: 01-25-2024 Bamboo flowsheet Gerardo Viri DO Work Phone: [facility] Start: 01-23-2024 End: 01-26-2024 Refill Anita Elmore FACTORY CLERK-BLANKMAKER Work Phone: [facility] Internal Medicine - Family [facility] Start: 01-14-2024 End: 01-14-2024 Clinisync Result Encounter Gerardo Viri DO Work Phone: [facility] Unsolicited Start: 01-14-2024 End: 01-14-2024 Clinisync Result Encounter Gerardo Viri DO Work Phone: [facility] Unsolicited Start: 01-14-2024 End: 01-14-2024 ambulatory Gerardo Burto Facility:[facility] Start: 12-27-2023 End: 12-29-2023 Refill Anitalarry Elmore FACTORY CLERK-BLANKMAKER Work Phone: [facility] Start: 12-07-2023 End: 12-07-2023 Orders Only Anita L Catarina FACTORY CLERK-BLANKMAKER Work Phone: [facility] Start: 12-06-2023 End: 12-06-2023 Orders Only Anita L Catarina FACTORY CLERK-BLANKMAKER Work Phone: [facility] Start: 11-25-2023 End: 11-25-2023 Refill Anitalarry Elmore FACTORY CLERK-BLANKMAKER Work Phone: [facility] Start: 11-23-2023 End: 11-23-2023 Office outpatient visit 15 minutes De Peyster Shanel [facility] Work Phone: [facility] Comment on above: Tinea pedis of both feet (Primary Dx) Start: 11-23-2023 End: 11-23-2023 ambulatory [facility] Start: 10-29-2023 End: 10-29-2023 Orders Only Anita Fisher Catarina FACTORY CLERK-BLANKMAKER Work Phone: [facility] Comment on above: Postoperative hypoth yroidism (Primary Dx) Start: 10-28-2023 End: 10-28-2023 ambulatory ANITA Fisher [facility] Start: 10-28-2023 Encounter for genera l adult medical examination without abnormal findings [facility] Start: 10-28-2023 End: 10-28-2023 Patient encounter status Anitalarry Elmore FACTORY CLERK-BLANKMAKER Work Phone: [facility] [employer] Work Phone: Start: 10-28-2023 End: 10-28-2023 Periodic preventive med est patient 18-39 yrs Anita Elmore FACTORY CLERK-BLANKMAKER Work Phone: [facility] Comment on above: Wellness examination (Primary Dx); Tinea pedis of right foot; Postoperative hypothyroidism; Generalized anxiety disorder; High risk heterosexual behavior Start: 10-28-2023 End: 10-28-2023 ambulatory [facility] Start: 10-04-2023 Refill Yesi Zepeda MD Work Phone: Endocrinology Comment on above: Refill Request Start: 09-28-2023 End: 09-28-2023 Office outpatient visit 15 minutes Lima Toussaint FACTORY CLERK-ENERGY CONSERVATION DIRECTOR Work Phone: [facility] Comment on above: Flu-like symptoms (P rimary Dx); Acute non-recurrent frontal sinusitis; Yeast vaginitis Start: 09-28-2023 End: 09-28-2023 ambulatory [facility] Start: 09-09-2023 End: 09-10-2023 ambulatory LATASHA BOBO Facility:[facility] Start: 09-09-2023 End: 09-10-2023 Patient encounter procedure Latasha Bobo MD Work Phone: Otolarynogology Comment on above: Hypothyroidism (acqu ired) (Primary Dx) Start: 09-03-2023 End: 09-04-2023 ambulatory LATASHA BOBO Facility:[facility] Start: 09-02-2023 Admission to same da y surgery center Latasha Bobo MD Work Phone: Otolaryngology Comment on above: surgery time Start: 09-02-2023 ambulatory Latasha lanza MD Work Phone: [facility] Start: 08-25-2023 End: 08-25-2023 Office outpatient new 45 minutes Anita Elmore FACTORY CLERK-BLANKMAKER Work Phone: [facility] Comment on above: Encounter for medica l examination to establish care (Primary Dx); Class 2 obesity due to excess calories without serious comorbidity with body mass index (BMI) of 38.0 to 38.9 in adult; Generalized anxiety disorder; Moderate major depression ([facility]); Gastroesophageal reflux disease, unspecified whether esophagitis present; Cystic acne; Thyroid nodule Start: 08-25-2023 End: 08-25-2023 Patient encounter status Anita Elmore FACTORY CLERK-BLANKMAKER Work Phone: [facility] Work Phone: Start: 08-25-2023 End: 08-25-2023 ambulatory [facility] Start: 08-25-2023 Encounter for genera l adult medical examination without abnormal findings [facility] Start: 08-25-2023 End: 08-26-2023 ambulatory LATASHA Fisher NATHANROBERT Facility:[facility] Start: 08-25-2023 End: 08-26-2023 ambulatory [facility] Facility:[facility] Start: 08-25-2023 Encounter for other preprocedural examination ANITA [facility] Start: 08-25-2023 End: 08-25-2023 Admission to establishment Pacc Main 3 Work Phone: [facility] Start: 08-25-2023 End: 08-25-2023 ambulatory Pacc Main 3 Work Phone: Pre Anesthesia Comment on above: Pre-op evaluation (P rimary Dx); Gastroesophageal reflux disease, unspecified whether esophagitis present; Obesity, pediatric, BMI greater than or equal 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 Start: 08-25-2023 End: 08-25-2023 Preprocedural examination done Pacc Main 3 Work Phone: [facility] Work Phone: Start: 08-18-2023 End: 08-18-2023 ambulatory Yesi Zepeda MD Work Phone: Endocrinology Comment on above: PCOS (polycystic ova perla syndrome) (Primary Dx); Thyroid nodule Start: 08-18-2023 End: 08-18-2023 Telemedicine consultation with patient Yesi Zepeda MD Work Phone: [facility] Start: 07-13-2023 Telephone encounter Latasha Bobo MD Work Phone: [facility] [place] Comment on above: Results Start: 07-09-2023 End: 07-09-2023 ambulatory LATASHA BOBO Facility:[facility] Start: 05-20-2023 End: 05-20-2023 ambulatory Aime Schwerer Other [employer] Other Start: 05-20-2023 Encounter by compute r link Aime Schwerer [facility] Start: 04-23-2023 End: 04-24-2023 ambulatory LATASHA BOBO Facility:[facility] Start: 04-02-2023 End: 04-02-2023 ambulatory Aime Schwerer Other [employer] Other Start: 04-02-2023 Office outpatient vi sit 25 minutes Aime Schwerer [facility] Start: 02-22-2023 Telephone encounter Aime Schwerer [facility] Start: 02-22-2023 End: 02-22-2023 ambulatory DO Kevin Divya Work Phone: [employer] Other Start: 02-22-2023 End: 02-22-2023 Patient encounter procedure DO Kevin Stokes Work Phone: [facility] Vacc[facility] Start: 01-30-2023 End: 01-30-2023 ambulatory Gerald Barboza Other [employer] Other Start: 01-30-2023 Telephone encounter Gerald Barboza [facility] Start: 01-27-2023 End: 01-27-2023 ambulatory Aime E Schwerer Facility:[facility] Start: 01-15-2023 End: 01-15-2023 ambulatory Aime Schwerer Other [facility] [employer] Other Start: 01-15-2023 Office outpatient ne w 45 minutes Aime [facility] Start: 01-06-2023 End: 01-06-2023 Emergency department patient visit Africa Del Cid Facility:[facility] Start: 12-14-2022 End: 12-14-2022 ambulatory PA hCetna Rodriguez Facility:[facility] Start: 11-13-2022 Telephone encounter Davina Enriquez MD Work Phone: Endocrinology Comment on above: Appointment (LM that appt was rescheduled) Start: 10-27-2022 End: 10-27-2022 ambulatory Power MOYA Facility:[facility] Start: 07-31-2022 End: 07-31-2022 Emergency department patient visit KATHLEEN NAVA Facility:[facility] Start: 07-31-2022 End: 08-01-2022 ambulatory KATHLEEN NAVA Facility:[facility] Start: 07-08-2022 End: 07-08-2022 ambulatory KEVIN STOKES Facility:[facility] Start: 05-28-2022 End: 05-28-2022 Patient encounter procedure Latasha Bobo MD Work Phone: Otolarynogology Comment on above: Thyroid nodule (Prim rodriguez Dx); Abnormal thyroid blood test; History of thyroid nodule Start: 04-24-2022 Telephone encounter Mana Rincon APRN.BLANKMAKER Work Phone: Peds Endocrinology Comment on above: Patient Update Start: 04-21-2022 Telephone encounter Mana Rincon FACTORY CLERK.BLANKMAKER Work Phone: Peds Endocrinology Comment on above: Results Start: 04-19-2022 ambulatory MANA AGUILAR Facil ity:[facility] Start: 04-19-2022 End: 04-19-2022 [facility]: [facility] Radiology Ultrasound Comment on above: Abnormal thyroid blo od test [R79.89] Start: 04-16-2022 Telephone encounter Mana Rincon APRN.BLANKMAKER Work Phone: Peds Endocrinology Comment on above: Results Start: 04-15-2022 End: 04-16-2022 ambulatory [facility] JEFF [facility] Start: 04-15-2022 End: 04-15-2022 Patient encounter procedure Mana Jeff HAYNES.BLANKMAKER Work Phone: Pediatrics Comment on above: Abnormal thyroid blo od test (Primary Dx); History of thyroid nodule; Obesity, pediatric, BMI greater than or equal 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 Start: 02-19-2022 End: 02-19-2022 ambulatory KEVIN STOKES Facility:[facility] Procedures Date Procedure Procedure Detail Performing Clinician Start: 12-19-2024 Urnls dip stick/tabl et rgnt non-auto w/o micrscp Gerardo Viri DO Work Phone: Start: 12-16-2024 BOX TEST Gerardo Fazi o DO Work Phone: Start: 12-07-2024 Urnls dip stick/tabl et rgnt [...] Adult depression scr eening assessment Anita Elmore FACTORY CLERK-BLANKMAKER Work Phone: Start: 03-20-2024 [facility] PREG QUANT [...] Adult depression scr eening assessment Anita Elmore FACTORY CLERK-BLANKMAKER Work Phone: Start: 09-28-2023 POCT INFLUENZA A/INF LUENZA B/SARS-COV-2 VERITOR Lima Toussaint FACTORY CLERK-ENERGY CONSERVATION DIRECTOR Work Phone: Start: 09-28-2023 Adult depression scr eening assessment Lima Toussaint FACTORY CLERK-ENERGY CONSERVATION DIRECTOR Work Phone: Start: 08-25-2023 Adult depression scr eening assessment Anita Elmore FACTORY CLERK-BLANKMAKER Work Phone: Start: 05-28-2022 US NECK (POC) HNI USE ONLY Salinas Tam MD Work Phone: Start: 04-19-2022 Us soft tissue head & neck real time imge docm Mana Aguilar APRN.BLANKMAKER Work Phone: Start: 07-12-2017 History of tonsillectomy S/P tonsill ectomy Mana Aguilar APRN.BLANKMAKER Work Phone: Plan of Treatment Date Care Activity Detail Author Start: 11-24-2025 DTaP,Tdap and Td Vaccines (7 - Td or Tdap) DTaP,Tdap and Td Vaccines (7 - Td or Tdap) [facility] [employer] [facility] Start: 11-24-2025 Urine microalbumin profile DTaP,Tdap,Td Vaccine (7 - T d or Tdap) [facility] Start: 03-31-2025 Adult BMI Screening Adult BMI Screening [facility] Start: 03-31-2025 Depression Screening Depression Screening [facility] Start: 02-17-2025 Adult BMI Screening Adult BMI Screening [facility] Start: 02-17-2025 Tobacco Screening Tobacco Screening [facility] Start: 02-03-2025 Adult BMI Screening Adult BMI Screening [facility] Start: 02-03-2025 Tobacco Screening Tobacco Screening [facility] Start: 02-02-2025 Adult BMI Screening Adult BMI Screening [facility] Start: 02-02-2025 Tobacco Screening Tobacco Screening [facility] Start: 01-15-2025 Influenza vaccination Influenza Vaccine (#1) [facility] Start: 01-02-2025 End: 01-02-2025 Patient encounter procedure [facility] Start: 12-19-2024 End: 12-19-2024 Patient encounter procedure 12/19/2024 1:00 PM EDT Routine [facility] [address] [id number] Gerardo Meredith, [address] [place] [address] Arrived [facility] Comment on above: Arrived Start: 12-07-2024 End: 12-07-2024 ambulatory 12/07/2024 2:30 PM EDT Initial [facility] [address] [place] [id number] [facility] Start: 12-07-2024 End: 12-07-2025 ABO/Rh ABO/Rh Lab Routine Missed menses , unspecified gestational age ([facility]) Expected: 12/07/2024 (Approximate), Expires: 12/07/2025 [facility] Comment on above: Expected: 12/07/2024 (Approximate), Expi res: 12/07/2025 Start: 12-07-2024 End: 12-07-2025 Blood type and Indirect antibody screen panel - Blood Type and screen Lab Routine Missed menses , unspecified gestational age ([facility]) Expected: 12/07/2024 (Approximate), Expires: 12/07/2025 [facility] Work Phone: Comment on above: Expected: 12/07/2024 (Approximate), Expi res: 12/07/2025 Start: 12-07-2024 End: 12-07-2025 Drugs of abuse panel - Urine by Screen method Rapid drug screen, urine Lab Routine , unspecified gestational age ([facility]) Encounter for supervision of normal first in first trimester ([facility]) Expected: 12/07/2024 (Approximate), Expires: 12/07/2025 [facility] Comment on above: Expected: 12/07/2024 (Approximate), Expi res: 12/07/2025 Start: 12-07-2024 End: 12-07-2024 Professional / ancillary services management 12/07/2024 2:00 PM EDT Ancillary Procedure [facility] [address] [place] [address] [facility] Start: 11-30-2024 End: 11-30-2024 Professional / ancillary services management 11/30/2024 2:30 PM EDT Ancillary Procedure [facility] [address] [place] [address] [facility] Start: 11-22-2024 Adult BMI Screening Adult BMI Screening [facility] Start: 11-22-2024 Depression Screening Depression Screening [facility] Start: 11-22-2024 Tobacco Screening Tobacco Screening [facility] Start: 11-22-2024 End: 02-22-2025 US Pelvis transvaginal US OB transvaginal Imaging Routine Missed menses Expected: 11/22/2024, Expires: 02/22/2025 [facility] Work Phone: Comment on above: Expected: 11/22/2024, Expires: Start: 11-22-2024 End: 11-22-2024 Patient encounter procedure 11/22/2024 1:30 PM EDT Off ice Visit [facility] [address] [place] [address] Nichelle Sanchez PA [address] [place] [address] [facility] Start: 11-02-2024 End: 11-02-2024 Patient encounter procedure 11/02/2024 3:40 PM EDT Off ice Visit [facility] [address] [place] [address] Anita Elmore, FACTORY CLERK-BLANKMAKER [address] [place] [address] [facility] Start: 10-27-2024 Adult BMI Screening Adult BMI Screening [facility] Start: 10-27-2024 Depression Screening Depression Screening [facility] Start: 10-27-2024 Screening for Chlamydia trachomatis Chlamydia Screening [facility] Start: 10-27-2024 Tobacco Screening Tobacco Screening [facility] Start: 09-27-2024 Adult BMI Screening Adult BMI Screening [facility] Start: 09-27-2024 Depression Screening Depression Screening [facility] Start: 09-27-2024 Tobacco Screening Tobacco Screening [facility] Start: 08-24-2024 Adult BMI Screening Adult BMI Screening [facility] Start: 08-24-2024 Depression Screening Depression Screening [facility] Start: 06-01-2024 End: 06-01-2024 Patient encounter procedure 06/01/2024 8:40 AM EST Off ice Visit [facility] [address] [place] [address] Anita Elmore, FACTORY CLERK-BLANKMAKER [address] [place] [address] [facility] Start: 05-09-2024 End: 05-09-2024 Patient encounter procedure 05/09/2024 9:20 AM EST Off ice Visit [facility] [address] [place] [phone] Loretta Winkler MD [address], [address] [place] [address] Arrived [facility] Comment on above: Arrived Start: 05-08-2024 End: 05-08-2024 Patient encounter procedure 05/08/2024 8:30 AM EST Off ice Visit [facility] [address] [place] [address] Nichelle Sanchez PA [address] [facility] [address] [place], [place] [id number] [facility] Start: 05-03-2024 End: 04-03-2025 Thyrotropin [Units/volume] in Serum or Plasma TSH Lab Routine Postoperative hypothyroidism Expected: 05/03/2024 (Approximate), Expires: 04/03/2025 [employer] Work Phone: Comment on above: Expected: 05/03/2024 (Approximate), Expi res: 04/03/2025 Start: 05-03-2024 End: 04-03-2025 Thyroxine (T4) free [Mass/volume] in Serum or Plasma T4, free Lab Routine Postoperative hypothyroidism Expected: 05/03/2024 (Approximate), Expires: 04/03/2025 [facility] Comment on above: Expected: 05/03/2024 (Approximate), Expi res: 04/03/2025 Start: 04-10-2024 End: 04-10-2024 Patient encounter procedure 04/10/2024 9:10 AM EST Off ice Visit [facility] [address] [place] [address] [place] [address] Gerarod Meredith DO [address] [facility] [address] [place], [place] [id number] [facility] Start: 03-31-2024 End: 03-31-2024 Patient encounter procedure 03/31/2024 8:40 AM EST Off ice Visit [facility] [address] [place] [address] Anita Elmore, FACTORY CLERK-BLANKMAKER [address] [place] [address] [facility] Start: 03-23-2024 End: 02-20-2025 Thyrotropin [Units/volume] in Serum or Plasma TSH Lab Routine Postoperative hypothyroidism Expected: 03/23/2024 (Approximate), Expires: 02/20/2025 [employer] Work Phone: Comment on above: Expected: 03/23/2024 (Approximate), Expi res: 02/20/2025 Start: 03-23-2024 End: 02-20-2025 Thyroxine (T4) free [Mass/volume] in Serum or Plasma T4, free Lab Routine Postoperative hypothyroidism Expected: 03/23/2024 (Approximate), Expires: 02/20/2025 [facility] [employer] Comment on above: Expected: 03/23/2024 (Approximate), Expi res: 02/20/2025 Start: 03-07-2024 End: 03-07-2024 Patient encounter procedure [facility] Comment on above: Arrived Start: 02-18-2024 End: 02-18-2024 Patient encounter procedure 02/18/2024 11:45 AM EDT [facility] [address] [place] [address] Anita Elmore, FACTORY CLERK-BLANKMAKER [address] [place] [address] [facility] Start: 02-15-2024 End: 02-15-2024 Patient encounter procedure 02/15/2024 2:30 PM EDT Off ice Visit [facility] [address] [place] [phone] Aramis Trejo MD [address] [place] [phone] [facility] Start: 02-04-2024 End: 02-04-2024 Esophagogastroduodenoscopy transoral diagnostic ESOPHAGOGASTRODUODENOSCOPY DIAGNOSTIC dysphagia 02/04/2024 2:30 PM EDT [facility] Start: 01-25-2024 End: 01-25-2024 Patient encounter procedure [facility] Comment on above: Arrived Start: 01-16-2024 COVID-19 Vaccine ( season) COVID-19 Vaccine ( season) [facility] Start: 01-16-2024 COVID-19 Vaccine ( season) COVID-[address] () [facility] Start: 01-16-2024 Influenza vaccination [facility] Start: 01-14-2024 End: 01-14-2024 Patient encounter procedure 01/14/2024 7:30 AM EDT Procedure Visit [facility] Gerardo Meredith, [address] [place] [address] [facility] Start: 10-29-2023 End: 11-28-2023 Thyrotropin [Units/volume] in Serum or Plasma TSH Lab Routine Postoperative hypothyroidism Expected: 10/29/2023 (Approximate), Expires: 11/28/2023 [facility] Work Phone: Comment on above: Expected: 10/29/2023 (Approximate), Expi res: 11/28/2023 Start: 10-28-2023 End: 10-28-2023 Patient encounter procedure 10/28/2023 4:20 PM EDT [facility] [address] [place] [address] Anita Elmore, FACTORY CLERK-BLANKMAKER [address] [place] [address] [facility] Start: 10-09-2023 End: 01-08-2024 Thyrotropin [Units/volume] in Serum or Plasma THYROID STIMULATING HORMONE Lab Routine Hypothyroidism (acquired) Expected: 10/09/2023, Expires: 01/08/2024 [facility] Work Phone: Comment on above: Expected: 10/09/2023, Expires: Start: 09-09-2023 End: 12-09-2023 Calcium [Mass/volume] in Serum or Plasma CALCIUM, TOTAL Lab Routine Hypothyroidism (acquired) Expected: 09/09/2023, Expires: 12/09/2023 [facility] Comment on above: Expected: 09/09/2023, Expires: Start: 09-09-2023 End: 12-09-2023 Parathyrin.intact [Mass/volume] in Serum or Plasma PTH INTACT Lab Routine Hypothyroidism (acquired) Expected: 09/09/2023, Expires: 12/09/2023 [facility] Comment on above: Expected: 09/09/2023, Expires: Start: 08-18-2023 End: 11-17-2023 17-Hydroxyprogesterone [Mass/volume] in Serum or Plasma HYDROXYPROGESTERONE-17 Lab Routine PCOS (polycystic ovarian syndrome) Expected: 08/18/2023, Expires: 11/17/2023 [facility] Work Phone: Comment on above: Expected: 08/18/2023, Expires: Start: 08-18-2023 End: 11-17-2023 TESTOSTERONE, FREE AND TOTAL TESTOSTERONE, FREE AND TO CLINT Lab Routine PCOS (polycystic ovarian syndrome) Expected: 08/18/2023, Expires: 11/17/2023 [facility] Work Phone: Comment on above: Expected: 08/18/2023, Expires: Start: 08-02-2023 End: 11-01-2023 Basic metabolic 2000 panel - Serum or Plasma BASIC METABOLIC PNL Lab Routine Thyroiditis Expected: 08/02/2023, Expires: 11/01/2023 [facility] Work Phone: Comment on above: Expected: 08/02/2023, Expires: 4 Start: 08-02-2023 End: 11-01-2023 CBC panel - Blood by Automated count CBC Lab Routine Thyroiditis Expected: 08/02/2023, Expires: 11/01/2023 [facility] Work Phone: Comment on above: Expected: 08/02/2023, Expires: 4 Start: 05-17-2023 Behavioral Health Screening Behavioral Health Screening [facility] Start: 05-17-2023 Depression Assessment Depression Assessment [facility] Start: 01-15-2023 Covid-19 Vaccine ( season) Covid-19 Vacc[address] () [facility] Start: 01-15-[address] [facility] Start: 2022 Adult BMI Follow Up Plan Adult BMI Follow Up Plan [facility] Start: 2022 CHLAMYDIA SCREENING (18-24) CHLAMYDIA SCREENING (18-24) [facility] Start: 2022 GC (GONORRHEA) SCREENING (18-24) GC (GONORRHEA) SCREENING (18-24) [facility] Start: 2022 HEPATITIS C SCREENING HEPATITIS C SCREENING [facility] Start: 2022 Hepatitis C screening Hepatitis C Screening [facility] Start: 2022 HIV SCREENING HIV SCREENING [facility] Start: 2022 HIV screening HIV Screening [facility] Start: 2022 Screening for Chlamydia trachomatis Chlamydia Screening (18-24) [facility] Start: 05-17-2022 DEPRESSION ASSESSMENT DEPRESSION ASSESSMENT [facility] Start: 01-15-2022 Influenza vaccination INFLUENZA (#1) [facility] Start: 01-06-2021 COVID-19 VACCINE (3 - Booster for Pfizer series) COVID-19 VACCINE (3 - Booster for Pfizer series) [facility] Start: 2020 Meningococcal B Vaccine: Consider Based On Risk (1 of 2 - Patient Seeks Protection) Meningococcal B Vaccine: Consider Based On Risk (1 of 2 - Patient Seeks Protection) [facility] Start: 2020 MENINGOCOCCAL CONJUGATE (1 - 2-dose series) MENINGOCOCCAL CONJUGATE (1 - 2-dose series) [facility] Start: 2019 CHLAMYDIA SCREENING (<18) CHLAMYDIA SCREENING (<18) [facility] Start: 2019 GC (GONORRHEA) SCREENING (<18) GC (GONORRHEA) SCREENING (<18) [facility] Start: 2018 PEDS TO ADULT TRANSITION ANNUAL ASSESSMENT PEDS TO ADULT TRANSITION ANNUAL ASSESSMENT [facility] Start: 2016 Adult depression screening assessment DEPRESSION SCREENING [facility] Start: 2016 PEDS TO ADULT TRANSITION INITIAL DISCUSSION PEDS TO ADULT TRANSITION INITIAL DISCUSSION [facility] Start: 2016 Tobacco Screening Tobacco Screening [facility] Start: 2015 HPV VACCINE (1 - 2-dose series) HPV VACCINE (1 - 2-dose series) [facility] Start: 2014 MENINGOCOCCAL B: Consider based on risk (1 of 2 - Risk Bexsero 2-dose series) MENINGOCOCCAL B: Consider based on risk (1 of 2 - Risk Bexsero 2-dose series) [facility] Start: 2013 HPV VACCINE (1 - 2-dose series) HPV VACCINE (1 - 2-dose series) [facility] Start: 2011 Urine microalbumin profile DTAP,TDAP,TD (1 - Tdap) [facility] Start: 2005 MMR (1 of 2 - Standard series) MMR (1 of 2 - Standard series) [facility] Start: 2005 VARICELLA (1 of 2 - 2-dose childhood series) VARICELLA (1 of 2 - 2-dose childhood series) [facility] Start: 2004 POLIO (1 of 3 - 4-dose series) POLIO (1 of 3 - 4-dose series) [facility] Start: 2004 HEPATITIS B (1 of 3 - 3-dose series) HEPATITIS B (1 of 3 - 3-dose series) [facility] 17-Hydroxyprogestero ne [Mass/volume] in Serum or Plasma HYDROXYPROGESTERONE-17 Lab Routine PCOS (polycystic ovarian syndrome) 08/25/2023 8:23 AM EDT [facility] Work Phone: Bacteria identified in Urine by Culture Urine culture Microbiology Routine Missed menses Ordered: 12/07/2024 [facility] Comment on above: Ordered: 12/07/2024 CBC W Auto Different ial panel - Blood CBC and differential Lab Routine Missed menses , unspecified gestational age ([facility]) Ordered: 12/07/2024 [facility] Comment on above: Ordered: 12/07/2024 End: 08-01-2024 ECG COMPLETE ECG COMPLETE ECG Routine Thyroiditis 1 Occurrences starting 08/02/2023 until 08/01/2024 [facility] Work Phone: Comment on above: 1 Occurrences starting 08/02/2023 until 08/01/2024 Hemoglobin A1c/Hemoglobin.total in Blood Hemoglobin A1c Lab Routine Missed menses , unspecified gestational age ([facility]) Ordered: 12/07/2024 [facility] Comment on above: Ordered: 12/07/2024 Hepatitis B virus melton rface Ag [Presence] in Serum or Plasma by Immunoassay Hepatitis B surface antigen Lab Routine Missed menses , unspecified gestational age ([facility]) Ordered: 12/07/2024 [facility] Comment on above: Ordered: 12/07/2024 Hepatitis C virus Ab [Presence] in Serum or Plasma by Immunoassay Hepatitis C antibody Lab Routine Missed menses , unspecified gestational age ([facility]) Ordered: 12/07/2024 [facility] Comment on above: Ordered: 12/07/2024 HIV-1/HIV-2 antigen/ antibody combination immunoassay HIV-1 and HIV-2 antibodies Lab Routine Missed menses , unspecified gestational age ([facility]) Ordered: 12/07/2024 [facility] Comment on above: Ordered: 12/07/2024 Reagin Ab [Presence] in Serum by RPR RPR Lab Routine Missed menses , unspecified gestational age ([facility]) Ordered: 12/07/2024 [facility] Comment on above: Ordered: 12/07/2024 Rubella antibody, IgG Rubella an tibody, IgG Lab Routine Missed menses , unspecified gestational age ([facility]) Ordered: 12/07/2024 [facility] Comment on above: Ordered: 12/07/2024 TESTOSTERONE, FREE AND TOTAL CAMRON TOSTERONE, FREE AND TOTAL Lab Routine PCOS (polycystic ovarian syndrome) 08/25/2023 8:23 AM EDT [facility] Work Phone: End: 11-28-2023 Thyroxine (T4) free [Mass/volume] in Serum or Plasma T4, free Lab Routine Postoperative hypothyroidism 1 Occurrences starting 10/29/2023 until 11/28/2023 [facility] Comment on above: 1 Occurrences starting 10/29/2023 until 11/28/2023 End: 03-31-2025 Thyroxine (T4) free [Mass/volume] in Serum or Plasma T4, free Lab Routine Postoperative hypothyroidism 1 Occurrences starting 03/31/2024 until 03/31/2025 [facility] Work [facility]: Comment on above: 1 Occurrences starting 03/31/2024 until 03/31/2025 End: 05-15-2023 Us soft tissue head & neck real time imge docm US THYROID/PARATHYROID Radiology Routine Abnormal thyroid blood test History of thyroid nodule 1 Occurrences starting 04/15/2022 until 05/15/2023 [facility] Work Phone: Comment on above: 1 Occurrences starting 04/15/2022 until 05/15/2023 [facility] Immunizations Immunization Date Immunization Notes Care Provider [facility] 03-31-2024 Covid-19, Mrna, Lnp- s, Pf,teresa-sucrose,30 Mcg/0.3ml Anita Elmore FACTORY CLERK-BLANKMAKER Work Phone: [facility] 03-31-2024 Immunization, In Clinic,; Translations: [Drug or medicament (substance)] Anita Catarina FACTORY CLERK-BLANKMAKER Work Phone: [facility] 02-18-2024 influenza, seasonal, injectable, preservative free Anita Catarina FACTORY CLERK-BLANKMAKER Work Phone: [facility] 02-18-2024 Immunization, In Clinic,; Translations: [Drug or medicament (substance)] Anita Elmore FACTORY CLERK-BLANKMAKER Work Phone: [facility] 02-18-2024 influenza virus vacc ine, unspecified formulation Gerardo Meredith DO Work Phone: [facility] 02-22-2023 influenza, injectabl e, quadrivalent, preservative free [facility] Work Phone: [facility] 02-22-2023 influenza virus vacc ine, unspecified formulation [facility] Work Phone: [facility] 12-26-2021 hepatitis A vaccine, pediatric/adolescent dosage, 2 dose schedule [facility] Work Phone: [facility] 12-26-2021 Human Papillomavirus 9-valent vaccine [facility] Work Phone: [facility] 12-26-2021 meningococcal oligosaccharide (groups A, C, Y and W-135) diphtheria toxoid conjugate vaccine (MCV4O) [facility] Work Phone: [facility] 12-26-2021 tuberculin skin test ; purified protein derivative solution, intradermal [facility] Work Phone: [facility] 12-19-2021 tuberculin skin test ; purified protein derivative solution, intradermal [facility] Work Phone: [facility] 03-14-2020 influenza, injectabl e, quadrivalent, contains preservative Aime Schwerer Other [employer] Other 03-14-2020 influenza virus vacc ine, unspecified formulation [facility] Work Phone: [facility] 11-25-2015 tetanus toxoid, redu racheal diphtheria toxoid, and acellular pertussis vaccine, adsorbed [facility] Work Phone: [facility] 11-25-2015 human papilloma viru s vaccine, quadrivalent Aime Schwerer Other [employer] Other 11-25-2015 meningococcal polysaccharide (groups A, C, Y and W-135) diphtheria toxoid conjugate vaccine (MCV4P) Aime Goff Other [facility] [employer] Other 09-09-2009 Diphtheria, tetanus toxoids and acellular pertussis vaccine, and poliovirus vaccine, inactivated Anita [facility] Work Phone: [facility] 09-09-2009 measles, mumps and rubella virus vaccine [facility] Work Phone: [facility] 09-09-2009 varicella virus vaccine Liliana kauffman [facility] Work Phone: [facility] 06-20-2007 diphtheria, tetanus toxoids and acellular pertussis vaccine Anita [facility] Work Phone: [facility] 09-13-2006 diphtheria, tetanus toxoids and acellular pertussis vaccine [facility] Work Phone: [facility] 09-13-2006 haemophilus influenz ae type b vaccine, PRP-T conjugate [facility] Work Phone: [facility] 09-13-2006 measles, mumps, rube lla, and varicella virus vaccine Anita [facility] Work Phone: [facility] 09-13-2006 pneumococcal conjuga te vaccine, 7 valent Anita [facility] Work Phone: [facility] 09-13-2006 poliovirus vaccine, inactivated [facility] Work Phone: [facility] 06-23-2005 diphtheria, tetanus toxoids and acellular pertussis vaccine Anita [facility] Work Phone: [facility] 06-23-2005 haemophilus influenz ae type b conjugate and Hepatitis B vaccine [facility] Work Phone: [facility] 06-23-2005 influenza, seasonal, injectable Anita Elmore FACTORY CLERK-[facility] Work Phone: [facility] 06-23-2005 pneumococcal conjuga te vaccine, 7 valent Anita Elmore FACTORY CLERK-[facility] Work Phone: [facility] 06-23-2005 poliovirus vaccine, inactivated Anita Elmore FACTORY CLERK-[facility] Work Phone: [facility] 2004 diphtheria, tetanus toxoids and acellular pertussis vaccine Anitalarry Elmore FACTORY CLERK-[facility] Work Phone: [facility] 2004 haemophilus influenz ae type b conjugate and Hepatitis B vaccine Anita Catarina FACTORY CLERK-[facility] Work Phone: [facility] 2004 pneumococcal conjuga te vaccine, 7 valent Anita Elmore FACTORY CLERK-[facility] Work Phone: [facility] 2004 poliovirus vaccine, inactivated Anitalarry Elmore FACTORY CLERK-[facility] Work Phone: [facility] 2004 hepatitis B vaccine, pediatric or pediatric/adolescent dosage Anita Catarina FACTORY CLERK-[facility] Work Phone: [facility] Payers Date Payer Category Payer Medicaid [id number] 2024 Medicaid [id number] 2024 Self-pay [id number] 2017 Blue Cross Blue Shield [id number] [id number] 2017 Blue Cross Blue Shie ld Managed Care - Other ANTHEM Member Subscriber Plan / Payer (Effective 2017-Present) Name: Sheyla Lea I Relation to Subscriber: Child Name: MIRNA SAMUEL Date of : 1976 Address: [address] [place] [address] Payer ID: [id number] (NAIC) Type: Not on file Address: [address] [place] [id number] 2017 Unknown [id number] 2014 Blue Cross Blue Shie ld Managed Care - PPO ANTHEM [id number] 2014 Unknown [id number]. [id number] 2014 Unknown [id number] 2004 Unknown [id number] 2.16.840.1.149759.3.579.2. 2004 Unknown [id number] 2.16.840.1.170091.3.579.2. 2004 Unknown [id number] 2.16.840.1.502993.3.579.2. 2004 Unknown [id number] 2.16.840.1.553328.3.579.2. 2004 Unknown [id number] 2.16.840.1.491614.3.579.2. 2004 Unknown [id number] 2.16.840.1.308942.3.579.2. 2004 Unknown [id number] 2.16.840.1.619200.3.579.2. 2004 Unknown [id number] 2.16.840.1.851174.3.579.2. 1285 2004 Unknown [id number] 2.16.840.1.950936.3.579.2. 1285 2004 Unknown [id number] 2.16840.1.833891.3.579.2. 1285 2004 Unknown [id number] 2.16840.1.071367.3.579.2. 1285 2004 Unknown [id number] 2.840.1.256744.3.579.2. 1285 2004 Unknown [id number] 2.16840.1.741745.3.579.2. 1285 2004 Unknown [id number] 2.16840.1.400737.3.579.2. 1285 2004 Unknown [id number] 2.16840.1.671100.3.579.2. 1285 2004 Unknown [id number] 2.16840.1.906114.3.579.2. 1285 2004 Unknown [id number] 2.16840.1.197835.3.579.2. 1285 2004 Unknown [id number] 2.16840.1.606235.3.579.2. 1285 2004 Unknown [id number] 2.16840.1.368539.3.579.2. 1285 2004 Unknown [id number] 2.16840.1.165792.3.579.2. 1285 2004 Unknown [id number] 2.16.840.1.525588.3.579.2. 1286 2004 Unknown [id number] 2.16.840.1.777212.3.579.2. 1259 2004 Unknown [id number] 2.16.840.1.541688.3.579.2. 1259 2004 Unknown [id number] 2.16.840.1.150232.3.579.2. 1259 2004 Unknown [id number] 2.16.840.1.832370.3.579.2. 1259 2004 Unknown [id number] 2.16.840.1.979347.3.579.2. 9 2004 Unknown [id number] 2.16.840.1.259310.3.579.2. 9 2004 Unknown [id number] 2.16.840.1.267805.3.579.2. 1258 2004 Unknown [id number] 2.16.840.1.711590.3.579.2. 9 2004 Unknown [id number] 2.16.840.1.478516.3.579.2. 9 2004 Unknown [id number] 2.16.840.1.477640.3.579.2. 1259 1978 Unknown [id number] 2.16.840.1.038146.3.579.2. 718 Unknown [employer] [id number] Unknown [id number] 2.16.840.1.898733.3.579.2. 531 Unknown [id number] 2.16.840.1.485712.3.579.2. 531 Unknown [id number] 2.16.840.1.633207.3.579.2. 531 Social History Date Type Detail Facility Start: 04-15-2022 End: 01-09-2023 Tobacco smoking status NHIS Never smoked tobacco [facility] History of tobacco use Passive smoker [facility] Start: 04-15-2022 End: 01-09-2023 Tobacco use and exposure Smokeless tobacco non-user [facility] Start: 04-15-2022 End: 02-18-2024 Alcohol intake Current non-drinker of alcohol (finding) [facility] Start: 04-15-2022 Tobacco Comment mom & dad both smoke in house [facility] Start: 2005 Sex Assigned At Not on file [facility] Start: 04-05-2022 End: 04-19-2022 Exposure to SARS-CoV-2 (event) Not sure [facility] Start: 04-15-2022 End: 01-25-2024 [facility] Start: 2005 Sex Assigned At Female F [facility] Start: 04-15-2022 End: 01-25-2024 History of [address] [facility] National Score (1-100), lower number is lower risk Not on file [facility] Start: 01-25-2024 End: 12-07-2024 Alcoholic beverage intake Lifetime non-drinker (finding) [facility] Start: 01-05-2023 Gender identity Identifies as female gender (finding) [facility] Start: 04-29-2017 Sex Female (finding) [facility] Start: 10-28-2024 [facility] Goals Date Patient Goal Desired Activity /State Personal health goal Clinical Notes 06-17-2017 to 12-19-2024 Bella Strickland LPN - 12/19/2024 1:00 PM Wendy Rice LPN - 12/07/2024 2:30 PM ELIJAH Nix - 11/22/2024 1:30 PM Vane Strickland LPN - 04/10/2024 9:10 AM ESTPatient Instructions Note Date & Type Note Facility 12-19-2024 History of Presen t illness Narrative Reason [...] indra samuel Breast cancer Paternal Grandmother Alesha Pardorakesh SURGICAL HISTORY Past Surgical History: Procedure Laterality [...] nursing note reviewed. Exam conducted with a tire fabric impregnating range tender present. Vitals: Estimated body mass index is 41.12 kg/m as calculated from the following: Height as of 05/09/24: 5' 3 . Weight as of this encounter: 232 lb 1.9 oz. BP: 118/78 Patient's last menstrual period was 10/02/2024. ASSESSMENT & PLAN ICD-10-CM 1. First trimester ([facility]) Z34.91 POCT urinalysis dipstick manually resulted 2. 9 weeks gestation of ([facility]) Z3A.09 POCT urinalysis dipstick manually resulted 3. Encounter to discuss test results Z71.2 Pt is 9 weeks 3 days and was seen in ER for nausea and vomiting. Rx for antivert and mag oxide faxed to pharmacy. Pt being referred to [facility] for thyroid disease in and referred to [facility] for zofran pump. Pt to return in 4 weeks for scheduled OB appt. Documented by Bella Strickland LPN on behalf of: Gerardo Meredith DO documented in this encounter [facility] 12-07-2024 History of Presen t illness Narrative [...] dipstick manually resulted , unspecified gestational age ([facility]) - Type and screen; Future - ABO/Rh; Future - CBC and differential - Hemoglobin A1c - RPR - Rubella antibody, IgG - Hepatitis B surface antigen - Hepatitis C antibody - HIV-1 and HIV-2 antibodies - Rapid drug screen, urine; Future Encounter for supervision of normal first in first trimester ([facility]) - Rapid drug screen, urine; Future Nurse [...] or undercooked meat, and stay away from [facility]. Patient has also been advised to [...] Tabitha Rice LPN documented in this encounter [facility] 11-22-2024 History of Presen t illness Narrative [...] indra samuel Breast cancer Paternal Grandmother Alesha Pardorakesh SURGICAL HISTORY Past Surgical History: Procedure Laterality [...] nursing note reviewed. Exam conducted with a tire fabric impregnating range tender present. Vitals: Estimated body mass index is 40.23 kg/m as calculated from the following: Height as of 24: 5' 3 . Weight as of this encounter: 227 lb 1.9 oz. BP: 128/80 Patient's last menstrual period was 10/02/2024. ASSESSMENT & PLAN ICD-10-CM 1. Nausea R11.0 2. Cramping affecting , antepartum ([facility]) O26.899 POCT , urine manually resulted [...] of: ELIJAH Martinez documented in this encounter [facility] 04-10-2024 History of Presen t illness Narrative [...] nursing note reviewed. Exam conducted with a tire fabric impregnating range tender present. Vitals: Estimated body mass index is [...] Gerardo Meredith DO documented in this encounter [facility] 03-31-2024 History of Presen t illness Narrative [address] [place] [address] Patient: Sheyla Lea Date of : 2005 [...] hernia. She was sent to GI in [place] who ordered a gastric emptying study which [...] 02/04/2024 Performed by Niki Hollis DO at [facility] EUSTACHIAN TUBE DILATION Bilateral 06/28/2017 Performed by Abdullahi Cavazos MD at [facility] MYRINGOTOMY W/ TUBES 2010 PELVIC LAPAROSCOPY 01/28/2024 THYROIDECTOMY 09/03/2023 TONSILLECTOMY ADENOIDECTOMY Bilateral 06/28/2017 Performed by Abdullahi Cavazos MD at [facility] Current Outpatient Medications Medication Sig Dispense [...] EARL APRN-CNP 04/04/242143 [facility] History of Presen t illness Narrative [...] nursing note reviewed. Exam conducted with a tire fabric impregnating range tender present. Vitals: Estimated body mass index is [...] Gerardo Meredith DO documented in this encounter [facility] 02-23-2024 Miscellaneous Notes I called pt and read result note. Pt verbally states she understands. documented in this encounter [facility] 02-23-2024 Telephone encounter Note I called pt and read result note. Pt verbally states she understands. [facility] 02-18-2024 History of Presen t illness Narrative [address] [place] [address] Patient: Sheyla Lea Date of : 2005 Encounter Date: 02/18/2024 History of Present Illness: The patient is a 18 y.o. female, an established patient, and is here for Chief Complaint Patient presents with post op . HPI Patient is here to follow-up on her EGD results through Dr. Hollis. Patient saw GI in [place] 1 week ago and a gastric emptying [...] having more migraines lately to her right jain area when she moves her head and [...] 02/04/2024 Performed by Niki Hollis DO at [facility] TUBE DILATION Bilateral 06/28/2017 Performed by Abdullahi Cavazos MD at [facility] MYRINGOTOMY W/ TUBES 2010 PELVIC LAPAROSCOPY 01/28/2024 THYROIDECTOMY 09/03/2023 TONSILLECTOMY ADENOIDECTOMY Bilateral 06/28/2017 Performed by Abdullahi Cavazos MD at [facility] Current Outpatient Medications Medication Sig Dispense Refill [...] less than 2 seconds. Findings: Papular rash: JAY elbows pink papular rash. Neurological: General: No [...] APRN-CNP 02/21/24 1427 documented in this encounter [facility] 02-03-2024 History of Presen t illness Narrative Reason for Appointment: Patient ID: Sheyla Lea is a 18 y.o. female who presents for No chief complaint on file. Patient presents today via telephone call for a telehealth appointment. Patients Phone #: [phone] (mobile) Current Medications: has a current medication list which includes the following prescription(s): hydroxyzine hcl, levothyroxine, metformin, minocycline, norgestimate-ethinyl estradiol, norgestimate-ethinyl estradiol, omeprazole, ondansetron odt, phentermine, sertraline, and venlafaxine xr. Medical History: Active Ambulatory Problems Diagnosis Date Noted No Active Ambulatory Problems Resolved Ambulatory Problems Diagnosis Date Noted No Resolved Ambulatory Problems Past Medical History: Diagnosis Date Hypothyroidism (acquired) ([facility]) Family History Problem Relation Name Age of [...] of: ELIJAH Martinez documented in this encounter [facility] 02-03-2024 History of Presen t illness Narrative [address] [place] [address] Patient: Sheyla Lea Date of : 2005 [...] 02/04/2024 Performed by Niki Hollis DO at [facility] EUSTACHIAN TUBE DILATION Bilateral 06/28/2017 Performed by Abdullahi Cavazos MD at [facility] MYRINGOTOMY W/ TUBES 2010 PELVIC LAPAROSCOPY 01/28/2024 THYROIDECTOMY 09/03/2023 TONSILLECTOMY ADENOIDECTOMY Bilateral 06/28/2017 Performed by Abdullahi Cavazos MD at [facility] Current Outpatient Medications Medication Sig Dispense Refill [...] APRN-CNP 02/08/24 1639 documented in this encounter [facility] 01-26-2024 Miscellaneous Notes Patient was called and encouraged to not gerd medication and to take but as needed and to call and set wellness up. Patient scheduled next year for wellness and 03/31/24 for med visit. documented in this encounter [facility] 01-26-2024 Telephone encounter Note Patient was called and encouraged to not gerd medication and to take but as needed and to call and set wellness up. [facility] 01-26-2024 Telephone encounter Note Patient scheduled next year for wellness and 03/31/[address] [facility] 01-25-2024 History of Presen t illness Narrative [...] Past Medical History: Diagnosis Date Hypothyroidism (acquired) ([facility]) HISTORY PAST MEDICAL HISTORY SOCIAL HISTORY Past Medical History: Diagnosis Date Hypothyroidism (acquired) ([facility]) Social History Tobacco Use Smoking status: [...] 11/24/23: 5' 3 . Weight as of this [...] Gerardo Meredith DO documented in this encounter [facility] 01-23-2024 Miscellaneous Notes I will give her a 90 day supply if that is cheaper but I do not want pt to continuously take this medication for long period. If she is still struggling w GERD when taking this PRN please set her up to see me - wellness if due if fine documented in this encounter [facility] 01-23-2024 Telephone encounter Note I will give her a 90 day supply if that is cheaper but I do not want pt to continuously take this medication for long period. If she is still struggling w GERD when taking this PRN please set her up to see me - wellness if due if fine [facility] 11-25-2023 Miscellaneous Notes Please remind pt, she cannot take hydroxyzine if she is Notified via [employer] documented in this encounter [facility] 11-25-2023 Telephone encounter Note Please remind pt, she cannot take hydroxyzine if she is [facility] 11-25-2023 Telephone encounter Note Notified via [employer] [facility] 11-25-2023 Miscellaneous Notes Please remind pt, she cannot take hydroxyzine if she is documented in this encounter [facility] 11-25-2023 Telephone encounter Note Please remind pt, she cannot take hydroxyzine if she is [facility] 11-23-2023 History of Presen t illness Narrative [...] as needed (heartburn). documented in this encounter [facility] 10-28-2023 History of Presen t illness Narrative [address] [place] [address] Patient: Sheyla Lea Date of : 2005 [...] help regulate her menses. She sees her dairy farmworker again in 1 month and also has a transvaginal ultrasound scheduled for lower pelvic pain. She has a history of ovarian cysts. Her dairy farmworker thinks her lack of periods and irregular [...] 06/28/2017 Performed by Abdullahi Cavazos MD at [facility] MYRINGOTOMY W/ TUBES 2010 THYROIDECTOMY 09/03/2023 TONSILLECTOMY ADENOIDECTOMY Bilateral 06/28/2017 Performed by Abdullahi Cavazos MD at [facility] Current Outpatient Medications Medication Sig Dispense Refill [...] APRN-CNP 11/02/23 1602 documented in this encounter [facility] 10-04-2023 Telephone encounter Note Requester: Patient Patients [...] No Patient is completely out of medication. [facility] 10-04-2023 Miscellaneous Notes Requester: Patient Patients [...] out of medication. documented in this encounter [facility] 09-28-2023 History of Presen t illness [...] 09/29 depending on how she is feeling RANJIT Bartholomew 09/28/23 1300 [facility] Note HNO ID: [id number] Author: LATASHA BOBO MD Service: ? Author Type: Physician Type: Progress Notes Filed: 10/15/2023 00:28 Note Text: [facility] Note CC: Post op of [...] findings and treatment plan. Latasha Bobo MD [facility] 09-09-2023 History of Presen t illness Narrative [facility] Note CC: Post op [...] Latasha Bobo MD documented in this encounter [facility] 09-09-2023 Nurse Note Tobacco Use: Never Was smoking cessation packet given? N/A - Patient is a non-smoker or quit >1 year ago. Was a referral initiated?N/A Patient is a non-smoker [facility] 09-09-2023 Nurse Note Tobacco Use: Never Was smoking cessation packet given? N/A - Patient is a non-smoker or quit >1 year ago. Was a referral initiated?N/A Patient is a non-smoker documented in this encounter [facility] 09-04-2023 Note HNO ID: [id number] Author: PEG RICKETTS MD Service: Otolaryngology Author Type: Resident Type: Progress Notes Filed: 09/04/2023 08:34 Note Text: [facility] OT[facility] - HEAD AND NECK SURGERY PROGRESS NOTE PAGE [phone] AFTER 1700 AND ON WEEKENDS Patient Name: Sheyla Lea Age: [age] year old Sex: female Date: September 04, 2023 Admission Date: 09/03/2023 Hospital Day: 0 ASSESSMENT/PLAN: Sheyla Lea is a 18 year old female who has been followed for total thyroidectomy - DC drain - DC home Peg Ricketts MD PGY-2 Otolaryngology/Head and Neck Surgery [phone] Service Pager [phone] - please page after 5pm and on weekends SUBJECTIVE: No acute events overnight. Pain well-controlled with current regimen. Breathing well on RA. Tolerating diet. No hoarseness OBJECTIVE: Vitals: 04/19/24 1733 09/03/23 2056 09/04/23 0047 09/04/23 0550 BP: 127/70 109/66 111/70 117/67 Pulse: 69 68 68 84 Resp: 16 16 14 16 Temp: 36.6 ?C (97.8 ?F) 36.8 ?C (98.3 ?F) 36.1 ?C (97 ?F) 36.8 ?C (98.3 ?F) TempSrc: Oral Oral Temporal Oral SpO2: 98% 98% 99% 100% Ins AND Outs: Date 09/03/23 07 - 09/04/23 0659 09/04/23 07 - 09/05/23 0659 Shift 4496-4545 9816-6327 0888-9288 24 Hour Total 3974-7231 8924-1571 0187-4893 24 Hour Total INTAKE PO 200 200 PO 200 200 IV 2000 423 1122 3545 OR Crystalloid intake (mL) 1000 1000 Volume (mL) (ceFAZolin iv piggyback 2 g in D5W (iso-osmotic) 100 mL (ANCEF)) 100 100 Volume (mL) (lactated ringers iv infusion) 1000 1000 Volume (mL) (NaCl 0.9% iv infusion) 423 1022 1445 Shift Total 2000 623 1122 3745 OUTPUT Urine 495 089 2580 1650 Void (ml) 789 360 4153 1650 Tubes 17.5 10 27.5 Drain/Tube Output (Drain/Tube 09/03/23 1124 [facility] Midline Anterior Neck) 17.5 10 27.5 [...] active hospital problems. * thyroid POA: Yes [facility] 09-03-2023 Note HNO ID: [id number] Author: PATRICIA ARAGON APRN.INSOLE TACKER Service: ? Author Type: Nurse Sap [employer] Security Type: Anesthesia Procedure Notes Filed: 09/03/2023 07:56 Note Text: ANESTHESIOLOGY PROCEDURE NOTE Airway General Information Procedure Start Time/Medication Administration: 09/03/2023 7:31 AM Procedure End Time: 09/03/2023 7:32 AM Patient location during procedure: OR Timeout Performed Pre-procedure: timeout performed Consent Obtained: Yes Patient identity confirmed: arm band and patient Staffing INSOLE TACKER: Patricia Aragon APRN.INSOLE TACKER Indications and Patient Condition Indications for airway management: anesthesia and airway protection Preoxygenated: yes anesthesia circuit Method: asleep Cricoid Pressure: No Manual In-Line Stabilization: No Difficult Mask: No Final Airway Details Final airway type: endotracheal airway Final Endotracheal Airway: NIM tube Cuffed: yes Successful intubation technique: video laryngoscopy Devices used: [employer] Endotracheal tube insertion site: oral ETT size (mm): 7.0 Measured from: lips Measurement (cm): 22 Placement verified by: capnometry Cormack-Lehane Classification: grade I - full view of glottis Number of attempts at approach: 1 Failed airway: no Unrecognized esophageal intubation: no Airway not difficult SIGNATURE: Patricia Aragon APRN.CRNA PATIENT NAME: Sheyla Lea DATE: September 03, 2023 TIME: 7:55 AM CSN: [id number] [facility] 08-25-2023 Miscellaneous Notes Addended by: JOHN HUMPHREY on: 08/25/2023 02:01 PM Modules accepted: Orders documented in this encounter [facility] 08-25-2023 History of Presen t illness Narr[place] [address] Patient: Sheyla Lea Date of : 2005 Encounter Date: 08/25/2023 History of Present Illness: The patient is a 18 y.o. female, an established patient, and is here for Chief Complaint Patient presents with New Patient . HPI Patient is here to establish care from [facility] where she saw Shanna a nurse practitioner. She recently moved to [place] and this is a closer drive for her. 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 In the last several months her [...] thyroidectomy surgery scheduled for September 02 with [facility] for nodules, chronic pharyngitis and family [...] 06/28/2017 Performed by Abdullahi Cavazos MD at [facility] MYRINGOTOMY W/ TUBES 2010 TONSILLECTOMY ADENOIDECTOMY Bilateral 06/28/2017 Performed by Abdullahi Cavazos MD at [facility] Current Outpatient Medications Medication Sig Dispense Refill [...] will recheck this at patient's follow-up appointment. ANDREW EARL APRN-CNP 08/25/23 1410 documented in this encounter [facility] 08-25-2023 Instructions John Humphrey PA-C - 08/25/2023 7:49 AM EDT PATIENT PREOPERATIVE INSTRUCTIONS No ref. provider found has scheduled you for your procedure at this surgery center: [facility] [place] Scheduling Office: [phone] --[phone] [place] [address]. Please read below carefully for your personalized [...] for the 08/25/23 encounter (PAT) with , [facility]. If you start any new medications [...] Procedures: - YOU MUST HAVE A RESPONSIBLE MEDICAL CODING AUDITOR TAKE YOU HOME. A SMOKE JUMPER OR LOCAL TELEPHONE OPERATOR CANNOT BE MADE A RESPONSIBLE MEDICAL CODING AUDITOR. - We recommend that a responsible person [...] call the Wednesday before. Your surgeon s patient scheduler will tell you what time to call the office. - If you have not reached the departmental patient scheduler by 5 P.M., call [phone] after 5 P.M. the day before your surgery. Please be aware that emergency situations arise, which may delay or change your surgical time. If this happens, we will notify you as soon as possible and regret any inconvenience. If you already have an Advance Directive, please fax a copy to [phone] or email to for it to be [...] John Humphrey PA-C documented in this encounter [facility] 08-25-2023 History and physical note HISTORY [...] COVID-19 Immunization Status Overdue - Covid-19 Vaccine (2022- season) Overdue since 01/15/2023 11/11/2020 Imm Admin: [...] CAD, chest pain, CHF, DVT/PE, hypertension, recent MA, murmur/valvular heart disease and PVD. GI: Positive [...] or any previous visit (from the past 09499 hour(s)). Instructions Given to Patient: Instructions located in the after visit summary. Patient given verbal and written preop instructions and voices comprehension and compliance. SIGNATURE: John Humphrey PA-C PATIENT NAME: Sheyla Lea DATE: August 25, 2023 TIME: 7:58 AM PAGER/CONTACT #: documented in this encounter [facility] 08-18-2023 Note HNO ID: [id number] Author: GRETEL STEVENS MD Service: ? Author [...] LH, estradiol - Consider pelvic US by SEARCH MARKETING COORDINATOR - Weight loss recommendations: Advised about lifestyle [...] (H) ( Neck Ultrasound: 05/17/2023 Ultrasound Machine: Simple-Fill Transducer: Linear 11 MHz Regions examined: Thyroid [...] DATE OF EXAM: Apr 19 2022 8:15AM [facility] 1048 - US THYROID/PARATHYROID / PROCEDURE REASON: multiple diagnoses * * * * Physician Inter (more content not included)... [facility] 08-18-2023 History of Presen t illness Narrative [...] LH, estradiol - Consider pelvic US by SEARCH MARKETING COORDINATOR - Weight loss recommendations: Advised about lifestyle [...] Thyroglobulin Ab (IU/mL) Date Value 06/23/2018 897.0 [facility] Reference Range & Units 06/23/18 13:52 04/15/22 [...] (H) ( Neck Ultrasound: 05/17/2023 Ultrasound Machine: Simple-Fill Transducer: Linear 11 MHz Regions examined: Thyroid [...] DATE OF EXAM: Apr 19 2022 8:15AM [facility] - US THYROID/PARATHYROID / PROCEDURE [...] 2 points Echogenicity: Hypoechoic, 2 points Shape: Bprcl-zgwr-ioom, 0 points Margin: Lobulated or irregular, 2 [...] QUANTITATIVE; Future This note was created using [employer] dictation software. You may find errors that were missed during proofreading. They are purely unintentional and if there are any concerns regarding this dictation, please do not hesitate to contact the dictating provider for clarification. Discussed with Attending Staff, Dr. Cerda Addendum to follow. Yesi Pizano MD Clinical Fellow Endocrinology and Metabolism [place] Attending Note I evaluated the patient and [...] Gretel Stevens MD documented in this encounter [facility] 08-02-2023 Miscellaneous Notes Spoke with patient [...] to consider it. She will see her panel laminator which is a new panel laminator in August and then if still interested in pursuing thyroidectomy will reach out to me. In the meantime we can hold a surgical date. Latasha Bobo MD Pt calling for lab results. Please call documented in this encounter [facility] 05-20-2023 Evaluation note Encounter Date Diagnosis Assessment Notes May, Moderate major depression (ICD-10 - F32.1) May, Chronic GERD (ICD-10 - K21.9) [facility] Other 12-08-2023 NoteHNO ID: [id number] Author: Latasha Bobo MD Service: ? Author Type: Physician Type: Progress Notes Filed: 05/17/2023 1:09 AM Note Text: [facility] follow-up CC: thyroid nodules HPI: Sheyla [...] mobility normal Neck Ultrasound: 05/17/2023 Ultrasound Machine: Simple-Fill Transducer: Linear 11 MHz Regions examined: Thyroid [...] Medical Decision Making Level: 3 - [facility]* Encounter Date Diagnosis Assessment Notes [...] left side of neck. will get US. [facility] Other 09-13-2023 NotePatient Education Materials Follows:Disease Viral [...] home: Managing pain and congestion ? Take ahzk-hfa-vsmimgl and prescription medicines only as told by [...] water are not available, use alcohol-based hand supervisor final. ? Cover your mouth when you cough. [...] against viruses. 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 Living on her own [...] Weight gain (ICD-10 - R63.5) see above [facility] Other 08-23-2023 NoteEducation Materials Gastroenterology Constipation, Adult [...] in fat and sugar, such as: ? [place] fries. ? Hamburgers. ? Cookies. ? Candy. ? Soda. ? Drink enough fluid to keep your pee (urine) pale yellow. General instructions ? Exercise regularly or as told by your doctor. Try to do 150 minutes of exercise each week. ? Go to the restroom when you feel like you need to poop. Do not hold it in. ? Take mneb-trf-esjjqnd and prescription medicines only as told by [...] your pee (urine) pale yellow. ? Take nzkj-fdh-pijynta and prescription medicines only as told by your doctor. These include any fiber supplements. This information is not intended to replace advice given to you by your health care provider. Make sure you discuss any questions you have with your health care provider. Document Revised: 03/20/2020 Document Reviewed: 03/20/2020 [employer] Patient Education ? 2022 [employer] Abdominal Pain, Adult Many things can cause belly (abdominal) pain. Most times, belly pain is not dangerous. Many cases of belly pain can be watched and treated at home. Sometimes, though, belly pain is serious. Your doctor will try to find the cause of your belly pain. Follow these instructions at home: Medicines ? Take sllo-mxy-myjzkiz and prescription medicines only as told by [...] belly pain for any changes. ? Take mpxg-des-btacygk and prescription medicines only as told by [...] 09/11/2019 Document Reviewed: 09/11/19 (more content not included)...[facility] [id number] NotePatient Education Materials Follows: Antibiotic Medicine, Adult [...] Follow these instructions at home: ? Take dzor-mok-axmukfl and prescription medicines as told by your health care provider. ? Return to your normal activities as told by your health care provider. Ask your health care provider what activities are safe for you. ? Keep all follow-up visits as told by your health care provider. This is important. Contact a health care provider if: ? (more content not included)...[facility] [id number] NotePatient Education Materials Follows: Corneal Abrasion A [...] condition may be caused by: ? A inspector process the eye. ? A gritty or irritating [...] in diseases and conditions of the eye (blood bank credit clerk). This condition may be diagnosed based on your medical history, symptoms, and an eye exam. Before the eye exam, numbing drops may be put into your eye. You may also have dye put in your eye with a dropper or a small paper strip. The dye makes the abrasion easy to see when your blood bank credit clerk examines your eye with a light. Your blood bank credit clerk may look at your eye through an [...] you start to feel better. ? Take hqgg-pyb-nywapxt and prescription medicines only as told by your health care provider. ? Ask your health care provider if the medicine prescribed to you: ? Requires you to avoid driving or using heavy machinery. ? Can cause constipation. You may need to take these actions to prevent or treat constipation: ? Drink enough fluid to keep your urine pale yellow. ? Take wyvf-vbu-lefohxe or prescription medicines. ? Eat foods that [...] wearing an eye patch. Your ability to computer numerical control operator distances will beimpaired. ? Follow instructions from [...] You have vision loss (more content not included)...[facility] [id number] NoteEducation Materials Cardiovascular Hypertension, Adult High blood [...] without skin, beans, e (more content not included)...[facility] [id number] NotePatient Education Materials Follows: Otitis Media, Adult [...] Follow these instructions at home: ? Take emtw-akw-dslnhbj and prescription medicines only as told by [...] provider. Document Revised: 08/11/2021 Document Reviewed: 08/11/2021 [employer] Patient Education ? 2021 [employer].[facility] [id number] Nurse Note* Carmela Pleitez Ma - 05/28/2022 8:31 AM EST Tobacco Use: Never Was smoking cessation packet given? N/A - Patient is a non-smoker or quit >1 year ago. Was a referral initiated?N/A Patient is a non-smoker documented [facility] History of Present illness Narrative* Latasha Bobo MD - 05/28/2022 8:24 AM EST [facility] This consult was requested by [...] 2 points Echogenicity: Hypoechoic, 2 points Shape: Oqvmy-pbtr-wqeh, 0 points Margin: Lobulated or irregular, 2 [...] palpable lymphadenopathy Neck Ultrasound: 06/02/2022 Ultrasound Machine: Simple-Fill Transducer: Linear 11 MHz Regions examined: Thyroid [...] to set up visit with a new panel laminator now that she is nearly an adult [...] Low Latasha Bobo MD documented in this encounterSt[facility]12-[facility] Miscellaneous Notes* Telephone Encounter - Mana Aguilar APRN.CNP - 04/24/2022 11:27 AM EST Called mother to discuss follow up. Received voicemail with identification as Maan eVnu. I left a voicemail stating that patient should follow up with adult ENT Dr. Latasha Bobo. Advised that if patient's mother has not heard from office to schedule by the middle of next week, she should call to set up the appointment. I left the scheduling line number for her to call if needed: [phone]. After discussion with Dr. Chaparro, the plan of care is for Sheyla to follow up with adult ENT first. She should be scheduled with Dr. Latasha Bobo. Consult to adult ENT placed with instructions to schedule with Dr. Latasha Bobo. Will send message to scheduling. No active mychart to send message to patient. documented in this encounterSt. [facility]12-06-2022 Miscellaneous Notes* Telephone Encounter - Mana Aguilar APRN.CNP - 04/21/2022 1:16 PM EST Called and spoke to mother of Sheyla about thyroid ultrasound results. Discussed that the nodules inthyroid have grown, which warrants further work up and evaluation to rule out any malignancy. I discussed with mother that Sheyla should follow up with Dr. Chaparro in the [facility] for further evaluation. Discussed that there [...] schedule. Mana Aguilar APRN.CNP documented in this encounterSt. [facility]12-01-2022 Miscellaneous Notes* Telephone Encounter - Mana [...] care. Mana Aguilar APRN.CNP documented in this [facility]11-30-[facility] Instructions* Patient Instructions* Mana Aguilar APRN.CNP - 04/15/2022 2:17 PM EST Please get labs Please schedule for ultrasound Follow up with nutrition for dietary guidance documented in this encounterSt. [facility] Hospital11-30-2022 History of Present illness Narrative* Mana Aguilar APRN.CNP - 04/15/2022 2:01 PM EST Images from the original note were not included. [facility] Division of Pediatrics CLINIC NOTE [...] note: Initial presentation was when she saw gear changer Dr Pleitez for pelvic pain who noticed thyromegaly so ordered US and TFTs. US showed small nodule ([id number]) with benign features and gland was non [...] 0.8 - 2.1 ng/dL 1.1 Scanned [facility] from 06/08/2018: FSH 7, LH 3.3 [...] -0.47) based on CDC (Girls, 2-20 Years) Cwrrbcq-jzy-pxk data based on Stature recorded on 04/15/2022. Weight: 98 %ile (Z= 2.01) based on CDC (Girls, 2-20 Years) tduicw-pou-fsf data using vitals from 04/15/2022. BMI: 90% [...] for 30 minutes. Denies poly symptoms. Encouraged recharger visit. I spent a total of 40 minutes on the date of the service which included preparing to see the patient, xrii-zo-yvnz patient care, completing clinical documentation, obtaining and/or reviewing separately obtained history, performing a medically appropriate examination, counseling and educating the pat ient/family/caregiver, and ordering medications, tests, or procedures. Follow up in 6 months. Mana Aguilar, [place]-BLANKMAKER cc: [place] [address] [facility] [address] Parent of Sheyla Lea [address] [place] [id number] documented in this encounterSt. [facility] Hospital10-06-2022 NotePatient Education Materials Follows: Foot Pain [...] clean and dry. General instructions ? Take tees-lie-lpxvhpp and prescription medicines only as told by [...] provider. Document Revised: 08/06/2021 Document Reviewed: 08/06/2021 [employer] Patient Education ? 2021 [employer] Ankle Pain The ankle joint holds [...] by your health care provider. ? Take wkpw-xpc-jrraubd and prescription medicines only as told by your health care provider. ? Keep all follow-up visits as told by your health care provider. This is important. (more content not included)...[facility] [id number] History general Narrative - Reported* Type Description Date Medical History Hx of ear infections Medical History ingrown toenail Surgical History tubes in bilateral ears 2011 Surgical History tonsillectomy and adenoidectomy 06/2017 Surgical History tubes in bilateral ears 06/2017 [employer] Other Evaluation note* Diagnosis Abnormal thyroid blood test- Primary Nonspecific abnormal results of thyroid function study History of thyroid nodule Personal history of other endocrine, metabolic, and immunity disorders Obesity, pediatric, BMI greater than or equal 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 documented in this encounter [facility] note* Diagnosis Abnormal thyroid blood test- Primary Nonspecific abnormal results of thyroid function study History of thyroid nodule Personal history of other endocrine, metabolic, and immunity disorders documented in this encounter [facility] note* Diagnosis Thyroid nodule- Primary Nontoxic uninodular goiter Abnormal thyroid blood test Nonspecific abnormal results of thyroid function study History of thyroid nodule Personal history of other endocrine, metabolic, and immunity disorders documented in this encounter [facility] noteNo InformationNort [employer] Other Evaluation noteNo assessment information available [facility] Work Phone: Evaluation note* Diagnosis Abnormal thyroid blood test Nonspecific abnormal results of thyroid function study History of thyroid nodule Personal history of other endocrine, metabolic, and immunity disorders 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 Thyroiditis Thyroiditis, unspecified [facility]* Diagnosis PCOS (polycystic ovarian syndrome)- Primary Polycystic ovaries Thyroid nodule Nontoxic uninodular goiter Thyroiditis Thyroiditis, unspecified documented [facility]* Diagnosis Hypothyroidism (acquired)- Primary Unspecified hypothyroidism [facility]* Diagnosis Mood disorder ([facility]) Unspecified episodic mood disorder Anxious mood Anxiety state, unspecified Hormone imbalance Irregular periods Weight gain Other symptoms concerning nutrition, metabolism, and development [facility]* Diagnosis Encounter for weight management [facility]* Diagnosis Anxiety, generalized ([facility])- Primary Postoperative visit S/P laparoscopy Other postprocedural status Encounter for repeat prescription of oral contraceptives [facility]* Diagnosis Weight gain- Primary Other symptoms concerning nutrition, metabolism, and development [facility]* Diagnosis Flu-like symptoms- Primary Acute non-recurrent frontal sinusitis Yeast vaginitis [facility]* Diagnosis Postoperative hypothyroidism- Primary Postsurgical hypothyroidism [facility]* Diagnosis Wellness examination- Primary Tinea pedis of right foot Postoperative hypothyroidism Postsurgical hypothyroidism Generalized anxiety disorder High risk heterosexual behavior [facility]* Diagnosis Tinea pedis of both feet- Primary [facility]* Diagnosis Encounter for medical examination to establish care- Primary Class 2 obesity due to excess calories without serious comorbidity with body mass index (BMI) of 38.0 to 38.9 in adult Generalized anxiety disorder Moderate major depression ([facility]) Major depressive disorder, single episode, moderate Gastroesophageal reflux disease, unspecified whether esophagitis present Cystic acne Other acne Thyroid nodule Nontoxic uninodular goiter [facility]* Diagnosis Postoperative hypothyroidism- Primary Postsurgical hypothyroidism [facility]* Diagnosis Gastroesophageal reflux disease, unspecified whether esophagitis present- Primary Postoperative hypothyroidism Postsurgical hypothyroidism Acute hemorrhoid Delayed gastric emptying Dyspepsia and other specified disorders of function of stomach Influenza vaccination administered at current visit documented [facility]* Diagnosis Gastroesophageal reflux disease, unspecified whether esophagitis present- Primary Esophageal dysphagia Dysphagia, pharyngoesophageal phase Allergic contact dermatitis, unspecified trigger Chronic idiopathic constipation Unspecified constipation documented [facility] this [facility]* Diagnosis Esophageal dysphagia- Primary Dysphagia, pharyngoesophageal phase Gastroesophageal reflux disease without esophagitis Esophageal reflux documented [facility]* Diagnosis Postoperative hypothyroidism- Primary Postsurgical hypothyroidism documented [facility]* Diagnosis Postoperative hypothyroidism- Primary Postsurgical hypothyroidism Acute nonintractable headache, unspecified headache type Gastroesophageal reflux disease, unspecified whether esophagitis present Immunization due [facility]* Diagnosis Nausea- Primary Nausea alone Cramping affecting , antepartum ([facility]) Missed menses [facility]* Diagnosis Missed menses , unspecified gestational age ([facility]) Encounter for supervision of normal first in first trimester ([facility]) documented [facility]* Diagnosis First trimester ([facility]) state, incidental 9 weeks gestation of ([facility]) Encounter to discuss test results Other specified counseling headache, antepartum ([facility]) Nausea Nausea alone documented in this encounter [facility] HealthcareInstructionsNot on filedocumented in this encounterProCrossbridge [facility] GridBridge SystemInstructionsNot on filedocumented in this encounterProCrossbridge Behavioral Health GridBridge SystemInstructionsNot on filedocumented in this encounterSt. Mary's Medical CenterStarbuckLabs2 [facility] InstructionsNot on filedocumented in this encounterR[facility] InstructionsNot on filedocumented in this encounterR[facility] InstructionsNot on filedocumented in this encounterRiverview [facility] Instructions* Attachments The following attachments cannot be sent through Care Everywhere. * Acid Reflux and GERD in Adults Discharge Instructions ([place]) documented in this encounterR[facility] SystemInstructionsNot on file documented in this encounterRiverview Health [facility] SystemInstructionsNot on file documented in this encounterProJoint [facility] SystemInstructionsNot on file documented in this encounterProJoint [facility] SystemInstructionsNot on file documented in this encounterProJoint Township [facility] SystemInstructions* Attachments The following attachments cannot be sent through Care Everywhere. * Acid Reflux and GERD in Adults Discharge Instructions ([place]) documented in this encounterProJoint Township [facility] SystemInstructionsNot on file documented in this encounterProJoint [facility] SystemInstructionsNot on file documented in this encounterProJoint [facility] SystemInstructionsNot on file documented in this encounterProJoint [facility] SystemInstructionsNot on file documented in this encounterProJoint Township [facility] SystemReason for referral (narrative)* Diagnostic Procedure Only (Routine) - Authorized Specialty Diagnoses / Procedures Referred By Rodger matute Referred To Contact US IMAGING Diagnoses Abnormal thyroid blood test History of thyroid nodule Procedures US THYROID/PARATHYROID US SOFT TISSUE HEAD & NECK REAL TIME IMGE DOCM Mana Aguilar APRN.CNP [address] [id number] [facility] Imaging Referral ID Status Reason Start Date Expiration Date Visits Requested Visits Authorized [id number] Authorized Auto-Generat ed Referral 2 05/15/2023 1 1 * Consult, Test, Treat (Routine) - Authorized Specialty Diagnoses / Procedures Referred By Rodger matute Referred To Contact Pediatric Nutrition Diagnoses Obesity, pediatric, BMI greater than or equal 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 Procedures CONSULT TO PED NUTRITION OFFICE/OUTPATIENT [facility] 60-74 MINUTES Mana Aguilar APRN.CNP [address] [place] [address] Referral ID Status Reason Start Date Expiration Date Visits Requested Visits Authorized [id number] Authorized PCP Requested Referral 2 04/15/[address] [facility] (narrative)* Reason counseling - john if able, if not [facility] anxiety/depression/stress Diagnosis 1 Mild major depressio n (F32.0) Diagnosis 2 Generalized anxiety disorder (F41.1) Referral Organization [facility] Edyta Mccoy Referring Provider First Name Aime Referring Provider Last Name Shireeneddie Referring Provider Specialty Family [facility] Referred Organization Unknown Facility Referred Provider Specialty Other Medica l Care Referral Priority Routine [facility] [employer] Other Reason for referral (narrative)* Diagnostic Procedure Only (Routine) - Closed Specialty Diagnoses / Procedures Referred By Rodger matute Referred To Contact US IMAGING Diagnoses Abnormal thyroid blood test History of thyroid nodule Procedures US THYROID/PARATHYROID US SOFT TISSUE HEAD & NECK REAL TIME IMGE DOCM Mana Aguilar APRN.CNP [address] [place] [address] Us [facility] [address] [address] Referral ID Status Reason Start Date Expiration Date V isits Requested Visits Authorized [id number] Closed Auto-Generate d Referral 04/15/2022 05/15/2023 1 1 [facility] for referral (narrative)* Outpatient Procedure (Routine) - Pending Review Specialty Diagnoses / Procedures Referred By Rodger matute Referred To Contact [facility] Diagnoses Thyroiditis Procedures ECG COMPLETE ECG ROUTINE ECG W/LEAST 12 LDS W/I&R Laatsha Bobo MD [address] [id number] [facility] [place] [address] [place] [address] Referral ID Status Reason Start Date Expiration Date Visits Requested Visits Authorized [id number] Pending Review Auto-Generat ed Referral 08/02/2023 08/01/2024 1 1 [facility] for referral (narrative)* Consultation (Routine) - Pending Review Specialty Diagnoses / Procedures Referred By Rodger t Referred To Contact Gastroenterology Diagnoses Esophageal dysphagia Gastroesophageal reflux disease without esophagitis Anita Elmore APRN-BLANKMAKER [address] [place] [address] Meliton Dow MD [address] [id number] Referral ID Status Reason Start Date Expiration Date Visits Requested Visits Authorized [id number] Pending Review Specialty Services Required 02/10/2024 02/09/2025 1 1 [facility] for visit Narrative* Diagnostic Procedure Only (Routine) - Closed Specialty Diagnoses / Procedures Referred By Rodger matute Referred To Contact US IMAGING Diagnoses Abnormal thyroid blood test History of thyroid nodule Procedures US THYROID/PARATHYROID US SOFT TISSUE HEAD & NECK REAL TIME IMGE DOCM Mana Aguilar APRN.BLANKMAKER [address] [place] [address] Us Imaging [place] [address] Referral ID Status Reason Start Date Expiration Date V isits Requested Visits Authorized [id number] Closed Auto-Generate d Referral 04/15/2022 05/15/[address] [facility] Summary Purpose Family History No Family [...] thyroid nodule Procedures CONSULT TO ENT OFFICE/OUTPATIENT [facility] 60-74 MINUTES Mana Aguilar APRN.BLANKMAKER [address] [place] [address] Referral ID Status Reason Start Date Expiration Date Visits Requested Visits Authorized [id number] Authorized PCP Requested Referral 04/24/2022 04/24/2023 1 [...] prosecute any alcohol or drug abuse patient.[facility] HospitalIn the event this information is protected by the Federal Confidentiality of Alcohol and Drug Abuse Patient Records regulations: The Federal rules restrict any use of the information to criminally investigate or prosecute any alcohol or drug abuse patient.[facility] HospitalIn the event this information is protected by the Federal Confidentiality of Alcohol and Drug Abuse Patient Records regulations: The Federal rules restrict any use of the information to criminally investigate or prosecute any alcohol or drug abuse patient.[facility] HospitalIn the event this information is protected by the Federal Confidentiality of Alcohol and Drug Abuse Patient Records regulations: The Federal rules restrict any use of the information to criminally investigate or prosecute any alcohol or drug abuse patient.[facility] HospitalIn the event this information is protected by the Federal Confidentiality of Alcohol and Drug Abuse Patient Records regulations: The Federal rules restrict any use of the information to criminally investigate or prosecute any alcohol or drug abuse patient.[facility] HospitalIn the event this information is protected by the Federal Confidentiality of Alcohol and Drug Abuse Patient Records regulations: The Federal rules restrict any use of the information to criminally investigate or prosecute any alcohol or drug abuse patient.[facility] HospitalIn the event this information is protected by the Federal Confidentiality of Alcohol and Drug Abuse Patient Records regulations: The Federal rules restrict any use of the information to criminally investigate or prosecute any alcohol or drug abuse patient.[facility] HospitalIn the event this information is protected by the Federal Confidentiality of Alcohol and Drug Abuse Patient Records regulations: The Federal rules restrict any use of the information to criminally investigate or prosecute any alcohol or drug abuse patient.[facility] HospitalIn the event this information is protected by the Federal Confidentiality of Alcohol and Drug Abuse Patient Records regulations: The Federal rules restrict any use of the information to criminally investigate or prosecute any alcohol or drug abuse patient.[facility] HospitalIn the event this information is protected by the Federal Confidentiality of Alcohol and Drug Abuse Patient Records regulations: The Federal rules restrict any use of the information to criminally investigate or prosecute any alcohol or drug abuse patient.[facility] HospitalIn the event this information is protected by the Federal Confidentiality of Alcohol and Drug Abuse Patient Records regulations: The Federal rules restrict any use of the information to criminally investigate or prosecute any alcohol or drug abuse patient.[facility] HospitalIn the event this information is protected by the Federal Confidentiality of Alcohol and Drug Abuse Patient Records regulations: The Federal rules restrict any use of the information to criminally investigate or prosecute any alcohol or drug abuse patient.[facility] HospitalIn the event this information is protected by the Federal Confidentiality of Alcohol and Drug Abuse Patient Records regulations: The Federal rules restrict any use of the information to criminally investigate or prosecute any alcohol or drug abuse patient.[facility] Reason for Visit (unrecogniz ed section [...] NEW HIGH MDM 60-74 MINUTES Mana Aguilar, [place].BLANKMAKER [address] [place] [address] [facility] [address] [place] [address] Referral ID Status Reason Start Date Expiration Date V isits Requested Visits Authorized [id number] Closed PCP Requested Referral 04/24/2022 04/24/2023 1 [...] in Early pr egnancy Reason Comments Amenorrhea Reason Comments Routine Visit Results Care Teams (unrecognized sec tion and content) Blade Changer Relationship Specialty Start Date End Date Jas Salgado [address] [place] [address] [place] [address] PCP - General Family Medicine 04/20/13 Blade Changer Relationship Specialty Start Date End Date Jas Salgado [address] [address] [place] [address] PCP - General Family Medicine 04/20/13 Blade Changer Relationship Specialty Start Date End Date Jas Salgado [address] [address] [place] [address] PCP - General Family Medicine 04/20/13 Blade Changer Relationship Specialty Start Date End Date Jas Salgado [address] [place] [address] PCP - General Family Medicine 04/20/13 Blade Changer Relationship Specialty Start Date End Date Jas Salgado [address] [place] [address] PCP - General Family Medicine 04/20/13 Blade Changer Relationship Specialty Start Date End Date Jas Salgado [address] [place] [address] PCP - General Family Medicine 04/20/13 Team Status: Active Member Role Status Dates Kevin Stokes , DO Primary Care Provider Active Team Status: Inactive Member Role Status Dates Kevin Stokes , DO Primary Care Provider Active Braxton Toussaint , DO [facility] Attending Provider Active Blade Changer Relationship Specialty Start Date End Date Jas Salgado [address] [place] [address] PCP - General Family Medicine 04/20/13 Blade Changer Relationship Specialty Start Date End Date Aime Goff DO [address] [facility] [place] [address] PCP - General Family Medicine 07/09/23 Blade Changer Relationship Specialty Start Date End Date Anita Elmore NP [address] [place] [address] PCP - General Family Medicine 08/17/23 Blade Changer Relationship Specialty Start Date End Date Anita Elmore NP [address] [place] [address] PCP - General Family Medicine 08/17/23 Blade Changer Relationship Specialty Start Date End Date Anita Elmore NP [address] [place] [address] PCP - General Family Medicine 08/17/23 Blade Changer Relationship Specialty Start Date End Date Anita Elmore NP [address] [place] [address] PCP - General Family Medicine 08/17/23 Blade Changer Relationship Specialty Start Date End Date Anita Elmore NP [address] [place] [address] PCP - General Family Medicine 08/17/23 Blade Changer Relationship Specialty Start Date End Date Regino Santoro MD [address] [facility] [place] [address] PCP - General Family Medicine 04/07/24 Blade Changer Relationship Specialty Start Date End Date Anita Elmore APRN-BLANKMAKER [address] [place] [address] PCP - General Internal Medicine 08/25/23 Blade Changer Relationship Specialty Start Date End Date Anita Elmore FACTORY CLERK-BLANKMAKER [address] [place] [address] PCP - General Internal Medicine 08/25/23 Blade Changer Relationship Specialty Start Date End Date Anita Elmore FACTORY CLERK-BLANKMAKER [address] [place] [address] PCP - General Internal Medicine 08/25/23 Blade Changer Relationship Specialty Start Date End Date Anita Elmore FACTORY CLERK-BLANKMAKER [address] [place] [address] PCP - General Internal Medicine 08/25/23 Blade Changer Relationship Specialty Start Date End Date Anita Elmore APRN-BLANKMAKER [address] [place] [address] PCP - General Internal Medicine 08/25/23 Blade Changer Relationship Specialty Start Date End Date Anita Elmore APRNBLANKMAKER [address] [place] [address] PCP - General Internal Medicine 08/25/23 Blade Changer Relationship Specialty Start Date End Date Anita Elmore FACTORY CLERKBLANKMAKER [address] [place] [address] PCP - General Internal Medicine 08/25/23 Blade Changer Relationship Specialty Start Date End Date Anita Elmore FACTORY CLERK-BLANKMAKER [address] [place] [address] PCP - General Internal Medicine 08/25/23 Blade Changer Relationship Specialty Start Date End Date Anita Elmore FACTORY CLERKBLANKMAKER [address] [place] [address] PCP - General Internal Medicine 08/25/23 Blade Changer Relationship Specialty Start Date End Date Anita Elmore FACTORY CLERK-BLANKMAKER [address] [place] [address] PCP - General Internal Medicine 08/25/23 Blade Changer Relationship Specialty Start Date End Date Anita Elmore FACTORY CLERKBLANKMAKER [address] [place] [address] PCP - General Internal Medicine 08/25/23 Blade Changer Relationship Specialty Start Date End Date Anita Elmore FACTORY CLERKBLANKMAKER [address] [place] [address] PCP - General Internal Medicine 08/25/23 Blade Changer Relationship Specialty Start Date End Date Anita Elmore FACTORY CLERKBLANKMAKER [address] [place] [address] PCP - General Internal Medicine 08/25/23 Blade Changer Relationship Specialty Start Date End Date CatarinaDaliaAnita Natalia FACTORY CLERKBLANKMAKER [address] [place] [address] PCP - General Internal Medicine 08/25/23 Blade Changer Relationship Specialty Start Date End Date CatarinaDaliaAnita Natalia FACTORY CLERK-BLANKMAKER [address] [place] [address] PCP - General Internal Medicine 08/25/23 Blade Changer Relationship Specialty Start Date End Date Anita Elmore, FACTORY CLERK-BLANKMAKER [address] [place] [address] PCP - General Internal Medicine 08/25/23 Blade Changer Relationship Specialty Start Date End Date Anita Elmore, FACTORY CLERK-BLANKMAKER [address] [place] [address] PCP - General Internal Medicine 08/25/23 Blade Changer Relationship Specialty Start Date End Date Regino Santoro MD PCP - General Family Medicine 04/07/24 Blade Changer Relationship Specialty Start Date End Date Regino Santoro MD [address] [place] [address] PCP - General Family Medicine 04/07/24 Blade Changer Relationship Specialty Start Date End Date Regino Santoro MD [address] [place] [address] PCP - General Family Medicine 04/07/24 Blade Changer Relationship Specialty Start Date End Date Regino Santoro MD [address] [place] [facility] [address] PCP - General Family Medicine 04/07/24 Blade Changer Relationship Specialty Start Date End Date Regino Santoro MD [address] [place] [address] PCP - General Family Medicine 04/07/24 Blade Changer Relationship Specialty Start Date End Date Regino Santoro MD [address] [place] [address] PCP - General Family Medicine 04/07/24 INFORMATION SOURCE (unrecogn ized section and content) DATE CREATED AUTHOR 04/19/2022 [facility] DATE CREATED AUTHOR AUTHOR'S ORGANIZ ATION 02/07/2023 [facility] DATE CREATED AUTHOR AUTHOR'S ORGANIZ ATION 10/15/2023 [facility] DATE CREATED AUTHOR AUTHOR'S ORGANIZ ATION 04/02/2024 [facility] DATE CREATED AUTHOR AUTHOR'S ORGANIZ ATION 04/03/2024 [facility] DATE CREATED AUTHOR AUTHOR'S ORGANIZ ATION 10/15/2024 [facility] DATE CREATED AUTHOR AUTHOR'S ORGANIZ ATION 12/21/2024 [facility] DATE CREATED AUTHOR AUTHOR'S ORGANIZ ATION 12/22/2024 [facility] EPIC Goals (unrecognized section and [...] BE BASED ON THE PRIMARY CLINICAL RECORDS. [facility]. provides no warranty or guarantee of the accuracy or completeness of information in this document.
[2024-12-27 11:03] LABS: Free T3 1.93 pg/mL (2.18-3.98); Thyroid Stimulating Hormone 42.135 uIU/mL (0.358-3.740)
== END 2024-12-27 10:03 | disposition home or self-care (01) ==
PROVIDERS: PCP Family Medicine; Visit Provider Family Medicine
DX: E03.9 Hypothyroidism, unspecified (principal)
CPT/HCPCS: 36415; 84436; 84443; 84481

== ENCOUNTER 2025-02-28 15:07 | Outpatient (OUT) | payer BC, OTHER, SELFPAY ==
--- OUTSIDE RECORDS SUMMARY | 2025-02-28 14:00 | XMS_ITS | Encounter Summary ---
Author Organization [facility] Address [address] [place] [address] Care Team Providers Care Animal Trapper Name Role Phone Hector Dai MD Primary Care Provider [phone] Reason for Visit * Reason Comments Routine Visit Encounter Details Date Type Department Care Team (Late st Contact Info) Description 02/28/2025 2:00 PM EDT Routine [facility] [address] [place] [address] Gerardo Meredith DO [address] [place] [place] [id number] Second trimester ([facility] 19 weeks gestation of ([facility]); Thyroid disease Social History Tobacco Use Types Packs/Day Years [...] Sign Reading Time Taken Comments Blood Pressure 126/72 02/28/2025 2:28 PM EDT Pulse - - Temperature - - Respiratory Rate - - Oxygen Saturation - - Inhaled Oxygen Concentration - - Weight 110 kg (241 lb 8 oz) 02/28/2025 2:28 PM E DT Height - - Body Mass Index 42.78 05/09/2024 9:23 AM EST documented in this encounter Progress Notes * Bella VALERIA Strickland - 02/28/2025 2:00 PM EDT Reason for Appointment: Patient ID: Sheyla Lea is a 19 y.o. female who presents for Routine Visit Patient presents today for Return OB appointment. MEDICATIONS Current Outpatient Medications Medication Instructions buPROPion SR (WELLBUTRIN SR) 150 mg, Oral, Daily, Take 1 tablet daily busPIRone (Buspar) 5 MG tablet 2 times daily calcium carbonate (TUMS) 500 mg, Oral, Daily levothyroxine (SYNTHROID, LEVOXYL) 175 mcg, Oral, Daily before breakfast levothyroxine (SYNTHROID, LEVOXYL) 50 mcg, Daily before breakfast liothyronine (CYTOMEL) 5 mcg, Oral, Daily magnesium oxide (MAG-OX) 400 mg, Oral, Daily metoclopramide (REGLAN) 10 mg, Oral, 3 times daily before meals, Take 1 tablet by mouth 30 minutes prior to meals 3 times daily as needed for nausea. pantoprazole (PROTONIX) 40 mg, Daily before breakfast ALLERGIES Allergies[1] PROBLEMS Active Ambulatory Problems Diagnosis Date Noted No Active Ambulatory Problems Resolved Ambulatory Problems Diagnosis Date Noted No Resolved Ambulatory Problems Past Medical History: Diagnosis Date Abnormal thyroid blood test Constipation Delayed gastric emptying Dysfunction of both eustachian tubes Dysmenorrhea Dyspepsia Dysphagia Enlarged thyroid Epistaxis Gastroparesis Generalized anxiety disorder GERD (gastroesophageal reflux disease) Hemorrhoids Hiatal hernia Ingrown toenail Irregular bleeding Irregular menses 2020 Menorrhagia with irregular cycle Mild major depression Nasal obstruction Otitis media PCOS (polycystic ovarian syndrome) Postoperative hypothyroidism Retained food in stomach Thrush Thyroid nodule Tonsillar hypertrophy Unintended weight loss HISTORY PAST MEDICAL HISTORY SOCIAL HISTORY Medical History[2] Social History Tobacco Use Smoking status: Never Smokeless tobacco: Never Substance Use Topics Alcohol use: Never Drug use: Never FAMILY HISTORY Family History[3] SURGICAL HISTORY Surgical History[4] REVIEW OF SYSTEMS Review of Systems: Review [...] note reviewed. Exam conducted with a production clerks supervisor present. Vitals: Estimated body mass index is 42.78 kg/m?? as calculated from the following: Height as of 05/09/24: 5' 3 . Weight as of this encounter: 241 lb 8 oz. BP: 126/72 Patient's last menstrual period was 10/02/2024. ASSESSMENT & PLAN ICD-10-CM 1. Second trimester ([facility]) Z34.92 POCT urinalysis dipstick manually resulted 2. 19 weeks gestation of ([facility]) Z3A.19 3. Thyroid disease E07.9 Patient presents today for a routine obstetrics appointment. Patient is currently 19w4d with a Estimated Date of Delivery: 07/21/25. Pt advised to have tsh drawn every 4 weeks during . Pt to have anatomy scan at [facility] on 03/13. Pt to start baby aspirin daily Documented by Bella Strickland LPN on behalf of: Gerardo Meredith DO [1] No Known Allergies [2] Past Medical History: Diagnosis Date Abnormal thyroid blood test Constipation Delayed gastric emptying Dysfunction of both eustachian tubes Dysmenorrhea Dyspepsia Dysphagia Enlarged thyroid Epistaxis Gastroparesis Generalized anxiety disorder GERD (gastroesophageal reflux disease) Hemorrhoids Hiatal hernia Ingrown toenail Irregular bleeding Irregular menses 2020 Menorrhagia with irregular cycle Mild major depression Nasal obstruction Otitis media PCOS (polycystic ovarian syndrome) Postoperative hypothyroidism Retained food in stomach Thrush Thyroid nodule Tonsillar hypertrophy Unintended weight loss [3] Family History Problem Relation Name Age of Onset Other (Seizure disorder) Brother Breast cancer Maternal Grandmother indra whiting Thyroid disease Maternal Grandmother indra whiting Breast cancer Paternal Grandmother Alesha Lea [4] Past Surgical History: Procedure Laterality Date ADENOIDECTOMY LAPAROSCOPY DIAGNOSTIC / BIOPSY / ASPIRATION / LYSIS 01/14/2024 OTHER SURGICAL HISTORY 12/28/2019 nexplanon insertion THYROIDECTOMY 09/03/2023 TONSILLECTOMY documented in this encounter Plan of Treatment Upcoming Encounters Date Type Department Care Team (Late st Contact Info) Description 03/28/2025 10:50 AM EST Routine [facility] [address] [place] [address] Gerardo Meredith DO [address] [place], [place] [id number] documented as of this encounter Goals Goal Patient Goal Type Associated Problems Recent Progress Patient-Stated? Author Reminders Care Plan OB Reminders No Open Scheduling, Background documented as of this encounter Procedures Procedure Name Priority Date/Time Associated Diagnosis Comments POCT URINALYSIS DIPSTICK Routine 02/28/2025 2:34 PM EDT Second trimester ([facility]) documented in this encounter Results * (ABNORMAL) POCT urinalysis dipstick manually resulted (02/28/2025 2:34 PM EDT) Color, UA Yellow Clarity, UA Clear Glucose, UA Negative Negative - 2000(110) ++++ mg/dL Bilirubin, UA Negative Negative - 4(70) +++ mg/dL Ketones, UA Negative Negative - 160(16) ++++ mg/dL Spec Grav, UA 1.020 1 - 1.03 Blood, UA Negative Negative - 50 Joshua/mcL pH, UA 6.0 5 - 9 Protein, UA Negative Negative - 1999(20) ++++ mg/dL Urobilinogen, UA 0.2 0.2 - 12 mg/dL Leukocytes, UA Trace Negative - 500+++ Diego/mcL Nitrite, UA Negative Negative - Positive Urine 02/28/2025 2:34 PM EDT Gerardo Meredith DO POINT OF CARE TEST ENTER/EDIT OR DERABLES Final Result documented in this encounter Visit Diagnoses Diagnosis Second trimester ([facility] state, incidental 19 weeks gestation of ([facility]) Thyroid disease Unspecified disorder of thyroid documented in this encounter Additional Health Concerns Active Problems Noted Date Diagnosed Date OB Reminders 12/11/2024 documented as of this encounter Care Teams Animal Trapper Relationship Specialty Start Date End Date Hector Dai MD [address] [place] [address] PCP - General Family Medicine 04/07/24 documented as of this encounter
--- OUTSIDE RECORDS SUMMARY | 2025-02-28 15:17 | XMS_ITS | CCD ---
Author Organization [facility] Care Team Providers Care Crm Marketing Analyst Name Role Phone Damian Jas Hewitt Primary Care Provider [phone] MANA AGUILAR Referring Unavailable JAS SALGADO Primary [...] Care Provider DO Braxton Toussaint Attending Provider Schwerer DO, Aime E Primary Care Provider Catarina PROFESSOR OF FINE ART, [facility] Primary Care Provider Catarina PROFESSOR OF FINE ART, [facility] Primary Care Provider CATARINA, ANITA Primary [...] Unavailable Regino Santoro MD Primary Care Provider Catarina GROCERY STOCK CLERK-PATIENT INTAKE REPRESENTATIVE, Anita L Primary Care Provider NIKI HOLLIS Admitting Unavailable NIKI HOLLIS Attending Unavailable CATARINA, ANITA L Primary Care Unavailable NIKI HOLLIS Attending Unavailable NIKI HOLLIS Referring Unavailable CATARINA, ANITA L Primary Care Unavailable REGINO SANTORO Primary Care Unavailable Regino Santoro MD Primary Care Provider Regino Santoro MD Primary Care Provider [phone] Gerardo Meredith Admitting Unavailable Gerardo Meredith Attending Unavailable NON STAFF Admitting Unavailable NON STAFF Attending Unavailable Brooke Conde Attending Unavailable Catarina, Ainta Primary Care Unavailable Brooke Conde Admitting Unavailable Regino Santoro MD Primary Care Provider [phone] CATARINA, ANITA L Referring Unavailable CATARINA, ANITA L Primary Care Unavailable CATARINA, ANITA L Referring Unavailable CATARINA, ANITA L Primary Care Unavailable CATARINA, ANITA L Referring Unavailable CATARINA, ANITA L Primary Care Unavailable YUVAL LOYA Attending Unavailable GERARDO MEREDITH R Referring Unavailable REGINO SANTORO Primary Care Unavailable LILIANA, NICHELLE Attending Unavailable VIRI, GERARDO Attending Unavailable VIRI, GERARDO Attending Unavailable LILIANA, NICHELLE Attending Unavailable NICHELLE SANCHEZ Attending Unavailable VIRI, GERARDO Attending Unavailable VIRI, GERARDO Attending Unavailable LORETTA WINKLER Attending Unavailable REGINO SANTORO Referring Unavailable Allergies Allergy Classification Reported Allergen(s) Allergy Type Date of Onset Reaction(s) Facility (1 source) No Known Medication Allergies; Translations: [No Known Medication Allergies] Propensity to adverse reactions to drug (disorder) [facility] Repository Medications Current Medications Medication Drug Class(es) [...] topical gel (20 sources) Lincosamide Antibacterial Start: 05-02-2024 clindamycin-benzoy l peroxide (BENZACLIN) gel APPLY TO AFFECTED AREA TOPICALLY IN THE MORNING AND AT BEDTIME 25 g 1 05/02/2024 Active Start: 12-29-2023 End: 02-18-2024 clindamycin-benzoyl peroxide (BENZACLIN) gel APPLY TO AFFECTED AREA TOPICALLY IN THE MORNING AND AT BEDTIME 25 g 1 02/18/2024 Active Start: 08-25-2023 End: 12-27-2023 clindamycin-benzoyl peroxide (BENZACLIN) gel Apply 1 Application topically in the morning and 1 Application before bedtime. 25 g 1 11/25/2023 12/27/2023 Discontinued (Reorder) bisacodyl 10 mg rectal suppository (3 sources) Stimulant Laxative Start: 01-02-2025 End: 01-12-2025 bisacodyl (Dulcolax) 10 MG suppository Indications: Constipation, unspecified constipation type Insert 1 suppository (10 mg) into the rectum Daily for 10 days 10 suppository 01/02/2025 01/12/2025 Active 12 hr buPROPion hydrochloride 150 mg extended [...] Active busPIRone hydrochloride 5 mg oral tablet (12 sources) take 1 tablet by mouth at bedtime busPIRone (Buspar) 5 MG tablet Take by mouth in the morning and before bedtime. Unsure of dose . Active calcium carbonate 500 mg chewable tablet (3 sources) Start: End: calcium carbonate (Tums) 500 MG chewable tablet Indications: Heartburn during in second trimester ([facility]) Chew 1 tablet (500 mg) Daily 30 tablet 01/25/2025 01/25/2026 Active cephalexin 500 mg oral capsule (1 source) Cephalosporin Antibacterial Start: take 1 capsule by mouth every twelve hours Cephalexin 500 MG 1 capsule Orally every 12 hrs for 10 days Jan, Active clindamycin 20 mg/ml vaginal cream (1 source) Lincosamide Antibacterial Start: End: clindamycin (CLEOCIN) 2 % vaginal cream Insert 1 applicator into the vagina nightly for 3 days. 40 g 03/13/2024 03/16/2024 Active clobetasol propionate 0.5 mg/ml topical cream (3 sources) Corticosteroid Start: clobetasoL (TEMOVATE) 0.05 % cream Apply 1 Application topically in the morning and 1 Application before bedtime. 30 g 10/12/2024 Active ethinyl estradiol 0.035 mg / norgestimate 0.25 mg oral tablet (20 sources) Progestin, Estrogen Start: End: take 1 tablet by mouth once daily [...] mg oral tablet (20 sources) l-Thyroxine Start: 01-25-2025 take 1 tablet by mouth before mealtime levothyroxine (Synthroid, Levoxyl) 50 MCG tablet Take 50 mcg by mouth in the morning. Take before meals. 01/25/2025 Active Start: 12-26-2024 End: 12-26-2025 take 1 tablet by mouth once before mealtime levothyroxine (Synthroid) 200 MCG tablet Indications: H/O thyroidectomy , Thyroid disease Take 1 tablet (200 mcg) by mouth in the morning. Take before meals. 30 tablet 12/26/2024 01/02/2025 Discontinued Start: 12-26-2024 End: 12-26-2025 take 1 tablet by mouth once before mealtime levothyroxine (Synthroid) 75 MCG tablet Indications: H/O thyroidectomy , Thyroid disease Take 1 tablet (75 mcg) by mouth in the morning. Take before meals. 30 tablet 12/26/2024 01/02/2025 Discontinued Start: 11-14-2024 End: 11-14-2025 take 1 tablet by mouth once before mealtime levothyroxine (Synthroid) 50 MCG tablet Indications: H/O thyroidectomy Take 1 tablet (50 mcg) by mouth in the morning. Take before meals. 30 tablet 11/14/2024 01/02/2025 Discontinued Start: 05-09-2024 take 1 tablet by hieu th before mealtime levothyroxine (Synthroid, Levoxyl) 175 MCG tablet Indications: Postoperative hypothyroidism Take 1 tablet (175 mcg) by mouth in the morning. Take before meals. 90 tablet 1 05/09/2024 Active Start: 04-03-2024 End: 05-01-2024 take 1 tablet by mouth in the morning levothyroxine (SYNTHROID, LEVOTHROID) 175 MCG tablet TAKE 1 TABLET BY MOUTH IN THE MORNING 90 tablet 1 05/01/2024 Active Start: 02-21-2024 End: 04-03-2024 take 1 [...] completed) liothyronine sodium 0.005 mg oral tablet (20 sources) l-Triiodothyronine Start: 12-14-2024 take 1 tablet [...] (Other) magnesium oxide 400 mg oral tablet (12 sources) Start: 12-19-2024 End: 12-19-2025 take 1 tablet by mouth once daily magnesium oxide (Mag-Ox) 400 MG tablet Indications: headache, antepartum ([facility]HS-HCC) Take 1 tablet (400 mg) by mouth Daily 30 tablet 6 12/19/2024 12/19/2025 Active meclizine hydrochloride 25 mg oral tablet (4 sources) Antiemetic Start: 12-19-2024 End: 01-02-2025 take 1 tablet by mouth three times daily as needed for dizziness meclizine (Antivert) 25 MG tablet Indications: headache, antepartum (HHS-HCC) , Nausea Take 1 tablet (25 mg) by mouth 3 (three) times a day as needed for dizziness for up to 10 days 30 tablet 12/19/2024 01/02/2025 Discontinued metFORMIN hydrochloride 500 mg oral tablet (20 sources) Biguanide Start: 03-07-2024 End: 03-07-2025 take 2 tablets by mouth in the morning metFORMIN (GLUCOPHAGE) 500 mg tablet Take 2 tablets (1,000 mg total) by mouth in the morning. 03/07/2024 03/07/2025 Active Start: 10-27-2023 End: 12-26-2024 take 1 tablet by mouth at mealtime metFORMIN (Glucophage) 500 MG tablet Indications: Hormone imbalance , Irregular periods , Weight gain Take 1 tablet (500 mg) by mouth in the morning. Take with meals. 30 tablet 11 12/27/2023 03/07/2024 Discontinued metoclopramide 10 mg oral tablet (3 sources) Dopamine-2 Receptor Antagonist Start: 01-25-2025 End: 02-24-2025 metoclopramide (Reglan) 10 MG tablet Indications: Heartburn during in second trimester (HHS-HCC) Take 1 tablet (10 mg) by mouth in the morning and 1 tablet (10 mg) at noon and 1 tablet (10 mg) in the evening. Take before meals. Take 1 tablet by mouth 30 minutes prior to meals 3 times daily as needed for nausea. 90 tablet 01/25/2025 02/24/2025 Active naproxen 500 mg oral tablet (1 [...] Active promethazine hydrochloride 12.5 mg oral tablet (11 sources) Phenothiazine Start: 11-24-2024 End: 02-22-2025 take 1 tablet by mouth every four hours for nausea and nausea promethazine (Phenergan) 12.5 MG tablet Indications: Nausea Take 1 tablet (12.5 mg) by mouth every 4 (four) hours 180 tablet 1 11/24/2024 01/02/2025 Discontinued take 1 tablet by hieu th every six hours as needed for nausea and vomiting promethazine (PHENERGAN) 12.5 mg tablet Take 1 tablet (12.5 mg total) by mouth every 6 (six) hours as needed for nausea or vomiting. Active sertraline 100 mg oral tablet (20 [...] Take 50 mg by mouth once daily. 24 hr venlafaxine 37.5 mg extended release oral capsule (20 sources) Serotonin and Norepinephrine Reuptake Inhibitor Start: 01-25-20 24 End: 01-25-20 25 take 1 capsule by mouth every twenty-four hours in the morning venlafaxine XR (EFFEXOR XR) 37.5 mg 24 hr capsule Take 1 capsule (37.5 mg total) by mouth in the morning. 01/25/2024 01/24/2025 Active Start: 01-25-2024 End: 01-24-2025 take 1 capsule by mouth once daily venlafaxine XR (Effexor XR) 37.5 MG 24 hr capsule Indications: Anxiety, generalized TAKE 1 CAPSULE BY MOUTH DAILY DO NOT CRUSH OR CHEW. 90 capsule 2 02/17/2024 12/07/2024 Discontinued (Other) Completed/Discontinued Medications Medication Drug Class(es) Dates Sig [...] Discharge) Start: 02-05-2023 take 1 capsule by [facility] every twenty-four hours Vistaril 25 MG 1 [...] the morning. 10/27/2023 02/03/2024 Discontinued (Therapy completed) minocycline 50 mg oral capsule (20 sources) Tetracycline- class Drug Start: 12-13-2023 End: 12-07-2024 take 1 [...] days. 10 capsule 0 09/09/2023 09/14/2023 nystatin [id number] unt/ml oral suspension (1 source) Polyene Antifungal [...] 11/23/2023 02/04/2024 Discontinued (Stop Taking at Discharge) Problems Active Problems Problem Classification Problem Date [...] reflux disease without esophagitis] Onset: 4 Chronic Immunizations and screening for infectious disease (5 sources) Encounter for immunization; Translations: [Influenza vaccination given] Onset: 4 02-18-2024 Episodic Menstrual disorders (20 sources) Irregular periods; Translations: [Irregular menstruation, unspecified] Onset: 4 03-07-2024 Chronic Mood disorders (20 sources) Mild major depression; Translations: [Major depressive disorder, single episode, mild] Onset: 4 Chronic Other complications of (2 sources) Uterine contractions problem; Translations: [Other specified related conditions, unspecified trimester] 11-22-2024 Episodic Other complications of (2 sources) Headache; Translations: [Other specified related conditions, unspecified trimester] 12-19-2024 Episodic Other complications of (4 sources) Thyroid disease in mother complicating , childbirth AND/OR puerperium; Translations: [Endocrine, nutritional and metabolic diseases complicating , unspecified trimester] 12-29-2024 Episodic Other complications of (1 source) Endocrine, nutritional and metabolic diseases complicating , unspecified trimester; Translations: [Endocrine, nutritional and metabolic diseases complicating , unspecified trimester] Onset: 5 Episodic Other endocrine disorders (17 sources) Polycystic ovary syndrome; Translations: [Polycystic ovarian syndrome] Onset: 4 08-18-2023 Chronic Other endocrine disorders (1 source) Polycystic ovarian syndrome; Translations: [PCOS (polycystic ovarian syndrome)] Onset: Chronic Other endocrine disorders (2 sources) Disorder of endocrine system; Translations: [Endocrine disorder, unspecified] 03-07-2024 Episodic Other female genital disorders (2 sources) Vaginal discharge; Translations: [Other specified noninflammatory disorders of vagina] 01-02-2025 Episodic Other gastrointestinal disorders (1 source) Chronic idiopathic constipation; Translations: [Chronic idiopathic constipation] 02-08-2024 Chronic Other gastrointestinal disorders (1 source) Other dysphagia; Translations: [Other dysphagia] Onset: 4 Episodic Other gastrointestinal disorders (15 sources) Constipation; Translations: [Constipation, unspecified] Onset: 4 02-18-2024 Episodic Other nervous system disorders (1 source) [...] 03-07-2024 Episodic Other and delivery including normal (8 sources) ; Translations: [Encounter for supervision of normal , unspecified, unspecified trimester] 12-07-2024 Episodic Other screening for suspected conditions (not mental disorders or infectious disease) (20 sources) Thyroid function tests abnormal; Translations: [Other specified abnormal findings of blood chemistry] Onset: 2 Episodic Other skin disorders (1 source) Localized swelling, mass and lump, neck Episodic Residual codes; unclassified (2 sources) Gestation period, 9 weeks; Translations: [9 weeks gestation of ] 12-19-2024 Episodic Residual codes; unclassified (2 sources) Gestation period, 11 weeks; Translations: [11 weeks gestation of ] 01-02-2025 Episodic Residual codes; unclassified (2 sources) Gestation period, 15 weeks; Translations: [15 weeks gestation of ] 01-31-2025 Episodic Thyroid disorders (20 sources) Thyroid nodule; Translations: [Nontoxic single thyroid nodule] Onset: 9 06-23-2018 Chronic Thyroid disorders (3 sources) Disorder of thyroid, unspecified; Translations: [Disorder of thyroid gland] Onset: 5 01-02-2025 Episodic Unclassified (1 source) athletes foot spread to hands. skin cracking Onset: 4 Unclassified (1 source) Annual Exam Onset: 4 Unclassified (1 source) Acute candidiasis of vulva and vagina; Translations: [Acute candidiasis of vulva and vagina] Onset: 4 Unclassified (1 source) Generalized Body Aches Onset: 4 Unclassified (1 source) New Patient Onset: 4 Unclassified (1 source) Insect Bite Onset: 5 Unclassified (11 sources) OB Reminders Onset: 5 12-11-2024 Unclassified (2 sources) PM MYCHART PREG BODY CHANGES Onset: 5 12-29-2024 Unclassified (1 source) Hx Thyroidectomy Onset: 5 Past or Other Problems Problem Classification Problem Date Documented Date Episodic/Chronic Abdominal pain (13 sources) Indigestion; Translations: [Epigastric pain] Onset: 4 02-18-2024 Episodic Fever of unknown origin (1 source) Fever Onset: 4 Episodic Headache; including migraine (1 source) Acute headache; Translations: [Acute nonintractable headache, unspecified headache type] 04-04-2024 Episodic Hemorrhoids (15 sources) Unspecified hemorrhoids; Translations: [Hemorrhoids] Onset: 4 02-18-2024 Episodic Mood disorders (20 sources) Mood disorders Onset: 4 Resolved: 4 09-28-2023 Mycoses (20 sources) Tinea pedis; Translations: [Candidiasis of vagina] Onset: 8 09-28-2023 Episodic Nausea and vomiting (20 sources) Nausea; Translations: [Nausea] Onset: 4 02-18-2024 Episodic Other aftercare (2 sources) Postoperative visit; Translations: [Encounter for other specified surgical aftercare] 01-25-2024 Episodic Other disorders of stomach and duodenum (2 sources) Functional dyspepsia; Translations: [Functional dyspepsia] Onset: Episodic Other disorders of stomach and duodenum (16 sources) Delayed gastric emptying; Translations: [Functional dyspepsia] Onset: 4 02-04-2024 Episodic Other disorders of stomach and duodenum (15 sources) Disorder of function of stomach; Translations: [Other diseases of stomach and duodenum] Onset: 4 02-04-2024 Episodic Other disorders of stomach and duodenum (13 sources) Gastroparesis syndrome; Translations: [Gastroparesis] Onset: 4 02-18-2024 Episodic Other disorders of stomach and duodenum (1 source) Other diseases of stomach and duodenum; Translations: [Other diseases of stomach and duodenum] Onset: Episodic Other disorders of stomach and duodenum (1 source) Gastroparesis; Translations: [Gastroparesis] Onset: Episodic Other female genital disorders (18 sources) Female genital organ symptoms; Translations: [Unspecified condition associated with female genital organs and menstrual cycle] Onset: 4 02-18-2024 Episodic Other gastrointestinal disorders (16 sources) Dysphagia; Translations: [Dysphagia, pharyngoesophageal phase] Onset: 4 02-04-2024 Episodic Other gastrointestinal disorders (2 sources) Esophageal dysphagia; Translations: [Other dysphagia] 02-03-2024 Episodic Other gastrointestinal disorders (1 source) Dysphagia, pharyngoesophageal phase; Translations: [Dysphagia, pharyngoesophageal phase] Onset: Episodic Other lower respiratory disease (1 source) [...] Episodic Other nutritional; endocrine; and metabolic disorders (13 sources) Unintentional weight loss; Translations: [Abnormal weight loss] Onset: 4 02-18-2024 Episodic Other skin disorders (1 source) Cystic acne; Translations: [Acne vulgaris] 08-25-2023 Episodic Other skin disorders (13 sources) Ingrowing toenail; Translations: [Ingrowing nail] Onset: [...] Onset: 9 06-23-2018 Episodic Residual codes; unclassified (1 source) High [...] Range Facility Urinalysis macro (dipstick) panel (U)on 01-31-2025 Bilirubin, UA Negative Negative - 4(70) +++ mg/dL [facility] Blood, UA Negative Negative - 50 Joshua/mcL [facility] Clarity, UA Clear [facility] Color, UA Yellow [facility] Glucose, UA Negative Negative - 2000(110) ++++ mg/dL [facility] Interpretation and review of laboratory results Normal [facility] Ketones, UA Negative Negative - 160(16) ++++ mg/dL [facility] Leukocytes, UA Negative Negative - 500+++ Diego/mcL [facility] Nitrite, UA Negative Negative - Positive [facility] pH, UA 7.5 5 - 9 [facility] Protein, UA Negative Negative - 1999(20) ++++ mg/dL [facility] Spec Grav, UA 1.01 1 - 1.03 [facility] Urobilinogen, UA 1.0 0.2 - 12 mg/dL [facility] RECURRENT VAGINITIS (HTRX)on 01-03-2025 ATOPOBIUM VAGINAE 28.556 Abnormal [facility] ATOPOBIUM VAGINAE Detected Abnormal [facility] BVAB 2,3 (BACTERIAL VAGINOSIS ASSOCIATED BACTERIA 2, 3); MOBILUNCUS SPP 24.03 Abnormal [facility] BVAB 2,3 (BACTERIAL VAGINOSIS ASSOCIATED BACTERIA 2, 3); MOBILUNCUS SPP Detected Abnormal [facility] GENESIS ALBICANS, PARAPSILOSIS, TROPICALIS 0 [facility] GENESIS ALBICANS, PARAPSILOSIS, TROPICALIS Not detected [facility] GENESIS GLABRATA 0 [facility] GENESIS GLABRATA Not detected [facility] GENESIS KRUSEI 0 [facility] GENESIS KRUSEI Not detected [facility] CHLAMYDIA TRACHOMATIS 0 [facility] CHLAMYDIA TRACHOMATIS Not detected [facility] GARDNERELLA VAGINALIS 0 [facility] GARDNERELLA VAGINALIS Not detected [facility] Interpretation and review of laboratory results Abnormal [facility] MEGASPHAERA (TYPES 1, 2) 0 [facility] MEGASPHAERA (TYPES 1, 2) Not detected [facility] MYCOPLASMA GENITALIUM 0 [facility] MYCOPLASMA GENITALIUM Not detected [facility] NEISSERIA GONORRHOEAE 0 [facility] NEISSERIA GONORRHOEAE Not detected [facility] TRICHOMONAS VAGINALIS 0 [facility] TRICHOMONAS VAGINALIS Not detected [facility] Urinalysis macro (dipstick) panel (U)on 01-02-2025 Bilirubin, UA Negative Negative - 4(70) +++ mg/dL [facility] Blood, UA Negative Negative - 50 Joshua/mcL [facility] Clarity, UA Clear [facility] Color, UA Yellow [facility] Glucose, UA Negative Negative - 1999(110) ++++ mg/dL [facility] Interpretation and review of laboratory results Normal [facility] Ketones, UA Negative Negative - 160(16) ++++ mg/dL [facility] Leukocytes, UA Negative Negative - 500+++ Diego/mcL [facility] Nitrite, UA Negative Negative - Positive [facility] pH, UA 7.5 5 - 9 [facility] Protein, UA Negative Negative - 1999(20) ++++ mg/dL [facility] Spec Grav, UA 1.01 1 - 1.03 [facility] Urobilinogen, UA 1.0 0.2 - 12 mg/dL [facility] TSHon 12-27-2024 Thyroid Stimulating (3Rd Generation) Hormone/ Tsh 42.135 [facility] Urinal[facility] macro (dipstick) panel (U)on 12-19-2024 Bilirubin, UA Negative Negative - 4(70) +++ mg/dL [facility] Blood, UA Negative Negative - 50 Joshua/mcL [facility] Clarity, UA Clear [facility] Color, UA Yellow [facility] Glucose, UA Negative Negative - 1999(110) ++++ mg/dL [facility] Interpretation and review of laboratory results Abnormal [facility] Ketones, UA Negative Negative - 160(16) ++++ mg/dL [facility] Leukocytes, UA Positive Negative - 500+++ Diego/mcL [facility] Nitrite, UA Negative Negative - Positive [facility] pH, UA 5.5 5 - 9 [facility] Protein, UA Negative Negative - 1999(20) ++++ mg/dL [facility] Spec Grav, UA 1.015 1 - 1.03 [facility] Urobilinogen, UA 1.0 0.2 - 12 mg/dL [facility] T4, freeon 12-18-2024 T4 Free Free T4 0.81 [facility] Urine Cultureon 12-18-2024 Bacteria identified Cx Nom (U) 50,000 colonies/ml mixed bacterial skin contaminants 2 Days PERFORMED BY: [facility] [address] [place] [address] PATHOLOGIST SOCIAL INSURANCE ADMINISTRATOR BRIA LOUIS M.D. Normal [facility] Comment on above: Performed By: #### C UU #### [facility] [address] BOX TESTon 12-16-2024 BOX TEST SENT OUT [facility] [address] [facility] [address] 01/03/2025 [facility] CBC without diffOrdered By: Ting Forte on 12-16-2024 Hematocrit (Bld) [Volume fraction] 39.7 % [facility] Hemoglobin (Bld) [Mass/Vol] 13.4 g/dL [facility] Rbc Mcv (Fl) By Automated Count 84.8 [facility] Drug Screen, Urineon 025 Amphetamine/Metham phetamine Negative [facility] Barbiturates Negative [facility] Benzodiazepines Negative [facility] Cocaine Metabolite Negative [facility] Ecstasy Negative [facility] Methadone Negative [facility] Opiates Negative [facility] Oxycodone Negative [facility] Phencyclidine Negative [facility] Thc Marijuana, Urine Negative [facility] HBV surface Ag IA Qlon 12-16 Hepatitis B Surface Antigen Negative [facility] HIV 1+2 Ab+HIV1 p24 Ag IA Ql on 12-16-2024 HIV 1&2 AB/AG Non-Reactive [facility] Hemoglobin A1con 12-16-2024 HbA1c (Bld) [Mass fraction] 4.9 % 4.0 - 6.0 % [facility] No Panel Informationon 12-16 [facility] Rubella IGG immune statuson 12-16-2024 Rubella immune IgG 4.26 [facility] TSHon 12-16-2024 Thyroid Stimulating (3Rd Generation) Hormone/ Tsh 50.067 [facility] Type and screenon 12-16-2024 Abo/Rh(D) Positive [facility] HCG ( test) Ql (U)o n 12-07-2024 Interpretation and review of laboratory results Abnormal [facility] Preg Test, Ur Positive Negative [facility] Urinalysis macro (dipstick) panel (U)on 12-07-2024 Bilirubin, UA Negative Negative - 4(70) +++ mg/dL [facility] Blood, UA Negative Negative - 50 Joshua/mcL [facility] Clarity, UA Clear [facility] Color, UA Yellow [facility] Glucose, UA Negative Negative - 2000(110) ++++ mg/dL [facility] Interpretation and review of laboratory results Normal [facility] Ketones, UA Negative Negative - 160(16) ++++ mg/dL [facility] Leukocytes, UA Negative Negative - 500+++ Diego/mcL [facility] Nitrite, UA Negative Negative - Positive [facility] pH, UA 6.5 5 - 9 [facility] Protein, UA Negative Negative - 2000(20) ++++ mg/dL [facility] Spec Grav, UA 1.025 1 - 1.03 [facility] Urobilinogen, UA 1.0 0.2 - 12 mg/dL [facility] US OB TRANSVAGINALon 025 US OB TRANSVAGINAL [...] Interpretation and review of laboratory results Abnormal [facility] Preg Test, Ur Positive Negative [facility] Urinalysis macro (dipstick) panel (U)on 11-22-2024 Bilirubin, UA Negative Negative - 4(70) +++ mg/dL [facility] Blood, UA Negative Negative - 50 Joshua/mcL [facility] Clarity, UA Clear [facility] Color, UA Yellow [facility] Glucose, UA Negative Negative - 1999(110) ++++ mg/dL [facility] Interpretation and review of laboratory results Normal [facility] Ketones, UA Negative Negative - 160(16) ++++ mg/dL [facility] Leukocytes, UA Negative Negative - 500+++ Diego/mcL [facility] Nitrite, UA Negative Negative - Positive [facility] pH, UA 6 5 - 9 [facility] Protein, UA Negative Negative - 1999(20) ++++ mg/dL [facility] Spec Grav, UA 1.01 1 - 1.03 [facility] Urobilinogen, UA 1.0 0.2 - 12 mg/dL [facility] PREG QUANT HCGon 025 HCG QUANTITATIVE 4630 mIU/mL [facility] Comment on above: 5-50 0.2-1 WEEK 50-500 1-2 WEEKS 100-5,000 2-3 WEEKS 500-10,000 3-4 WEEKS 1,000-50,000 4-5 WEEKS 10,000-100,000 5-6 WEEKS 15,000-200,000 6-8 WEEKS 10,000-100,000 2[facility] STIM HORMONEon 0 11-13-2024 Interpretation and review of laboratory results Abnormal [facility] TSH Qn 12.103 m[IU]/L High [facility] No Panel Informationon 11-13 [facility] PREG QUANT HCGon 11-13- 025 HCG QUANTITATIVE 481 mIU/mL [facility] Comment on above: 5-50 0.2-1 WEEK 50-500 1-2 WEEKS 100-5,000 2-3 WEEKS 500-10,000 3-4 WEEKS 1,000-50,000 4-5 WEEKS 10,000-100,000 5-6 WEEKS 15,000-200,000 6-8 WEEKS 10,000-100,000 2-3 MONTHS FREE T4on 03-31-2024 Free T4 [Mass/Vol] 0.93 ng/dL Normal 0.61-1.60 [facility] Comment on above: Performed By: #### 3 024-7 #### [facility] ([id number]) [address] [place] [address] TSHon 03-31-2024 TSH Qn 11.47 m[IU]/L High [facility] TSH Qnon 03-31-2024 Interpretation and review of laboratory results Abnormal [facility] TSH 11.47 uIU/mL High 0.49-4.67 [facility] Comment on above: Performed By: #### 3 016-3 #### [facility] ([id number]) [address] [place] [address] TB PREG QUANT HCGon 024 HCG QUANTITATIVE <1 mIU/mL [facility] Comment on above: 5-50 0.2-1 WEEK 50-500 1-2 WEEKS 100-5,000 2-3 WEEKS 500-10,000 3-4 WEEKS 1,000-50,000 4-5 WEEKS 10,000-100,000 5-6 WEEKS 15,000-200,000 6-8 WEEKS 10,000-100,000 2-3 MONTHS [facility] PREG QUANT HCGon 024 HCG QUANTITATIVE <1 mIU/mL [facility] Comment on above: 5-50 0.2-1 WEEK 50-500 1-2 WEEKS 100-5,000 2-3 WEEKS 500-10,000 3-4 WEEKS 1,000-50,000 4-5 WEEKS 10,000-100,000 5-6 WEEKS 15,000-200,000 6-8 WEEKS 10,000-100,000 2-3 MONTHS [facility] PREG QUANT HCGon 024 HCG QUANTITATIVE <1 mIU/mL [facility] Comment on above: 5-50 0.2-1 WEEK 50-500 1-2 WEEKS 100-5,000 2-3 WEEKS 500-10,000 3-4 WEEKS 1,000-50,000 4-5 WEEKS 10,000-100,000 5-6 WEEKS 15,000-200,000 6-8 WEEKS 10,000-100,000 2-3 [facility] PREG QUANT HCGon 024 HCG QUANTITATIVE <1 mIU/mL [facility] Comment on above: 5-50 0.2-1 WEEK 50-500 1-2 WEEKS 100-5,000 2-3 WEEKS 500-10,000 3-4 WEEKS 1,000-50,000 4-5 WEEKS 10,000-100,000 5-6 WEEKS 15,000-200,000 6-8 WEEKS 10,000-100,000 2-3 MONTHS [facility] HCG,Urineon 03-03-2024 Beta HCG ( test) Ql (U) Negative Normal [facility] Comment on above: Result Comment: PERF ORMED BY: [place] [address] PATHOLOGIST SOCIAL INSURANCE ADMINISTRATOR MAIK BARNES M.D. Performed By: #### U HCG #### [address] gastric emptying studyon 03-03-2024 [place] gastric emptying study [facility] [place] [address] Nuclear Medicine Report Signed Patient: Sheyla Lea I MR#: [id number] : 2005 Acct:[id number] Age/Sex: 18 / F ADM Date: 03/03/24 Loc: OK Room: Type: [facility] Attending Dr: Brooke Conde DO Copies [...] Salinas Adams M.D.03/03/2024 1:04 PM Dictation Location: [place] [address] Transcribed By: [facility] 03/03/24 1304 Dictated By: Salinas Adams II, MD 03/03/24 1302 Signed By: 03/03/24 1304 Normal [facility] FREE T4on 02-18-2024 Free T4 [Mass/Vol] 1.48 ng/dL Normal 0.61-1.60 [facility] Comment on above: Performed By: #### 3 016-3, 3024-7 #### [facility] ([id number]) [address] [place] [address] Free T4 [Mass/Vol]on 024 [facility] T4, freeon 02-18-2024 Free T4 [Mass/Vol] 1.48 ng/dL 0.61 - 1. 60 ng/dL [facility] TSHon 02-18-2024 TSH Qn 0.01 m[IU]/L Low [facility] TSH Qnon 02-18-2024 Interpretation and review of laboratory results Abnormal [facility] TSH 0.01 uIU/mL Low 0.49-4.67 [facility] Comment on above: Performed By: #### 3 016-3, 3024-7 #### [facility] ([id number]) [address] [place] [address] HCG ( test) Ql (U)o n 02-04-2024 Beta HCG ( test) Ql (U) Negative Normal NEG [facility] Comment on above: Performed By: #### 2 106-3 #### [facility] ([id number]) [address] [place] [address] Surgical Pathologyon 024 Surgical Pathology Normal [facility] Comment on above: Result Comment: [facility] [address] [place] [address] Surgical Pathology Consultation Patient Name:SHEYLA LEA I.:2005 (Age: 18)Gender:FTaken:4Reported:02/08/2024hysician(s):Niki Hollis MD ([phone])Copy To: Rec. #:[id number]: #[id number] Final Pathologic Diagnosis 1. Duodenum, biopsy: Duodenal mucosa with no significant diagnostic abnormality. No evidence of celiac disease. 2. Stomach, antrum, biopsy: Gastric mucosa with mild reactive changes. No histological evidence of H. pylori infection on routine stain. 3. Distal esophagus, biopsy: Mildly reactive junctional mucosa without intestinal metaplasia. Report Electronically Signed Out 02/08/2024khai Cates MD Interpretation performed at [facility], [address] [place] [address], License number: [id number]. Clinical History Dysphagia. Gross Description 1. Received in formalin labeled, HOFACKER, duodenum are 8 pale-buckley delicate soft tissue fragments, 0.1-0.4 cm in greatest dimension. The specimens are submitted in single cassette. (1, ns, [id number], m8) TB 2. Received in formalin labeled, HOFACKER, antrum are 4 pale-buckley delicate soft tissue fragments, 0.1-0.3 cm in greatest dimension. The specimens are filtered and submitted a single cassette. (1, ns, [id number], m8) TB 3. Received in formalin labeled, HOFACKER, distal esophagus are 3 buckley delicate soft tissue fragments, 0.2-0.5 cm in greatest dimension. The specimens are filtered and submitted (1, ns, [id number], m8) TB tgb/4AO Specimen(s) Received 1: Duodenum biopsy 2: Antrum biopsy 3: Distal esophageal biopsy Fee Codes(s): 1; 36332 2; 91742 3; 18395 ALL CBC WITH AUTO DIFFon BASOPHILS ABSOLUTE AUTO 0.0 [facility] Basophils/100 WBC (Bld) 0.8 % 0.2 - 2.0 % [facility] Eosinophils/100 WBC (Bld) 1.7 % 0.9 - 7.0 % [facility] Erythrocyte distribution width (RBC) [Ratio] 13.2 % 11.0 - 15.0 % [facility] Hematocrit (Bld) [Volume fraction] 40.6 % 36.0 - 48.0 % [facility] Hemoglobin (Bld) [Mass/Vol] 13.6 g/dL 12.0 - 16.0 g/dL [facility] IMMATURE GRANULOCYTES ABS AUTO 0.01 [facility] Immature granulocytes/100 WBC (Bld) 0.2 % 0.0 - 0.5 % [facility] LYMPHOCYTES ABSOLUTE AUTO 1.9 [facility] Lymphocytes/100 WBC (Bld) 39.0 % 20.5 - 60.0 % [facility] MCH (RBC) [Entitic mass] 27.5 pg 26.7 - 34.0 pg [facility] MCHC (RBC) [Mass/Vol] 33.5 g/dL 29.9 - 35.2 g/dL [facility] MCV (RBC) [Entitic vol] 82.0 fL 81.0 - 99.0 fL [facility] MONOCYTES ABSOLUTE AUTO 0.5 [facility] Monocytes/100 WBC (Bld) 10.4 % 1.7 - 12.0 % [facility] NEUTROPHILS ABSOLUTE AUTO 2.3 [facility] Neutrophils/100 WBC (Bld) 47.9 % 43.0 - 75.0 % [facility] Platelet mean volume (Bld) [Entitic vol] 10.4 fL 9.5 - 13.5 fL [facility] EO # 0.1 [facility] PLT 223 [facility] TBH RBC 4.95 [facility] TBH WBC 4.8 [facility] CLINISYNC [facility] Jose 01-14-2024 L Specimen: Re ceived: 01/18/24 Status: VERO Dodson Num: [id number] Spec Type: Cytology Subm Dr: Gerardo Meredith Tissues: A ASCITES (PELVIC FLUID) Procedures: HE/2, Gross/Micro L4, Cyto Prepstain, PAPSTN Age/ Patient Sex Location Account Attending Physician Sheyla Lea I 18/F LABELL [id number] Gerardo Meredith SPEC NUM: RECD: 01/18/24 STATUS: VERO DODSON NUM: [id number] JAREK: 01/14/[address]: Gerardo Meredith ENTERED: 01/18/[address]: Anoop,Lab SPEC TYPE: Cytology DEPT: [facility] ENTERED BY: [id number] RECV BY: [id number] ORDERED: HE/2, Gross/Micro L4, Cyto Prepstain, PAPSTN ORDERED: HE/2, Gross/Micro L4, Cyto Prepstain, PAPSTN Pathological Diagnosis Pelvic fluid cytology: Negative for malignant cells. Gross Description Received fresh is 10 ml yellow clear unfixed fluid for cytology said to have been obtained as pelvic fluid. ThinPrep and cell block preparations are prepared for microscopic examination. (AR/ne) CPT Codes 89149 Specimen: [id number] Received: 01/18/24-1218 Status: VERO Dodson Num: [id number] Spec Type: Cytology Subm Dr: Gerardo Meredith Tissues: A ASCITES (PELVIC FLUID) Procedures: HE/2, Gross/Micro L4, Cyto Prepstain, PAPSTN Patient: Sheyla Lea I [id number] (Continued) Signed (signature on file) Cleo Beckford MD 01/19/24 1433 Normal [facility] Chlamydia/GC by PCR urineon 10-29-2023 Chlamydia sp DNA SWAPNA+probe Ql (Unsp spec) Negative Negative^Ne [facility] Comment on above: Chlamydia trachomatis not detected by nucleic acid amplification. This does not exclude the possibility of infection because results are dependent on adequate specimen collection. N. gonorrhoeae DNA SWAPNA+probe Ql (Unsp spec) Negative Negative^Ne [facility] Comment on above: Neisseria gonorrhoeae not detected by nucleic acid amplification. This does not exclude the possibility of infection because results are dependent on adequate specimen collection. Specimen source Nom (Unsp spec) CLEAN CATCH MIDSTREAM URINE [facility] Comprehensive metabolic pane jose 10-29-2023 Albumin [Mass/Vol] 4.4 g/dL 3.2 - 5.3 g/dL [facility] ALP [Catalytic activity/Vol] 64 U/L 39 - 130 U/L [facility] ALT No additional P-5'-P [Catalytic activity/Vol] 18 U/L 0 - 31 U/L [facility] Anion gap [Moles/Vol] 10 mmol/L 5 - 15 mmol/L [facility] AST [Catalytic activity/Vol] 16 U/L 0 - 41 U/L [facility] Bilirubin [Mass/Vol] 0.4 mg/dL 0.3 - 1.2 mg/dL [facility] Calcium [Mass/Vol] 9.8 mg/dL 8.5 - 10. 5 mg/dL [facility] Chloride [Moles/Vol] 102 mmol/L 98 - 109 mmol/L [facility] CO2 [Moles/Vol] 25 mmol/L 22 - 32 mmol/L [facility] Creatinine [Mass/Vol] 0.65 mg/dL 0.40 - 1.00 mg/dL [facility] Comment on above: METHOD TRACEABLE TO [facility] STANDARD eGFR (CKD-EPI)non-race dependent - PINF [facility] Comment on above: Reported eGFR is based on the CKD-EPI 2020 equation that does not use a race coefficient. Glucose [Mass/Vol] 80 mg/dL 65 - 99 mg/dL [facility] Potassium [Moles/Vol] 4.1 mmol/L 3.5 - 5.0 mmol/L [facility] Protein [Mass/Vol] 7.3 g/dL 6.0 - 8.0 g/dL [facility] Sodium [Moles/Vol] 137 mmol/L 134 - 146 mmol/L [facility] Urea nitrogen [Mass/Vol] 12 mg/dL 5 - 23 mg/dL [facility] Free T4 [Mass/Vol]on 024 [facility] Lipid 1996 panelon 4 Cholesterol [Mass/Vol] 157 mg/dL 150 - 200 mg/dL [facility] Cholesterol in HDL [Mass/Vol] 56 mg/dL 39 - PINF mg/dL [facility] Comment on above: HDL <40 mg/dL - High Risk HDL > or = 40mg/dL- Desirable HDL >60 mg/dL - Negative Risk Cholesterol in LDL [Mass/Vol] 85 mg/dL NINF - 130 mg/dL [facility] Comment on above: LDL <100 mg/dL - Desirable LDL >160 mg/dL - High Risk Cholesterol in VLDL [Mass/Vol] 16 mg/dL 0 - 30 mg/dL [facility] Cholesterol.total/ Cholesterol in HDL [Mass ratio] 2.8 {ratio} 1.0 - 5.0 [facility] Triglyceride [Mass/Vol] 80 mg/dL 27 - 150 mg/dL [facility] No Panel Informationon 10-28 [facility] T4, freeon 10-29-2023 Free T4 [Mass/Vol] 0.73 ng/dL 0.61 - 1. 60 ng/dL [facility] TSH with Reflexon 10-29-2023 Interpretation and review of laboratory results Abnormal [facility] TSH Qn 22.23 m[IU]/L [facility] Trichomonas by PCRon 024 Specimen source Nom (Body fld) CLEAN CATCH MIDSTREAM URINE [facility] T. vaginalis rRNA Probe Ql (Genital specimen) Not detected Not Detected^No t Detected [facility] Comment on above: Trichomonas vaginali s not detected NOTE Assay methodology is nucleic acid amplification by real-time PCR for detection of Trichomonas vaginalis DNA performed on [employer] Instrument System. [facility] POCT Influenza A/Influenza B /SARS-COV-2 Veritoron 09-28-2023 External Poct Influenza A Antigen Negative [facility] External Poct Influenza B Antigen Negative [facility] SARS-CoV-2 (COVID-19) Ag IA.rapid Ql (Resp) Negative [facility] CNOVon 09-09-2023 CNOV Office Visit (OTMNCA ) SHEYLA LEA ([id number]) 3 F Date Time Provider Department 09/09/23 [...] 0 THYROID STIMULATING HORMONE [SQTSH] Order #: [id number] FUTURE PTH INTACT [SQPTHI] Order #: [id number] FU (more content not included)... Normal [facility] Basic metabolic 2000 panelon 09-04-2023 Anion gap [Moles/Vol] 12 mmol/L Normal 9-18 [facility] Comment on above: Order Comment: Speci men Type: BLOOD SPECIMENOrdering Facility: [facility] Address: [address] [place] [address] Performed By: #### 2 777-1, 00706-2, ####[facility] [id number] [place] [address] [place] Calcium [Mass/Vol] 8.7 mg/dL Normal 8.5-10.2 [facility] Comment on above: Order Comment: Speci men Type: BLOOD SPECIMENOrdering Facility: [facility] Address: [address] [place] [address] Performed By: #### 2 777-1, 33889-9, ####[facility] LABCLIA [id number] [place] [address] [place] Chloride [Moles/Vol] 106 mmol/L High 97-105 [facility] Comment on above: Order Comment: Speci men Type: BLOOD SPECIMENOrdering Facility: [facility] Address: [address] [place], [place] [address] Performed By: #### 2 777-1, 40384-3, ####[facility] LABCLIA [id number] [place] [address] [place] CO2 [Moles/Vol] 21 mmol/L Low 22-30 [facility] Comment on above: Order Comment: Speci men Type: BLOOD SPECIMENOrdering Facility: [facility] Address: [address] [place] [address] Performed By: #### 2 777-1, 74854-6, ####[facility] LABCLIA [id number] [place] [address] [place] Creatinine [Mass/Vol] 0.59 mg/dL Normal 0.58-0.96 [facility] Comment on above: Order Comment: Speci men Type: BLOOD SPECIMENOrdering Facility: [facility] Address: [address] [place] [address] Performed By: #### 2 777-1, , ####[facility] LABIA [id number] [place] [address] [place] Creatinine and Glomerular filtration rate.predicted panel (S/P/Bld) 133 mL/min/1.73m??? Normal >=60 [facility] Comment on above: Order Comment: Speci men Type: BLOOD SPECIMENOrdering Facility: [facility] Address: [address] [place] [address] Result Comment: Akila mated Glomerular Filtration Rate [...] actual GFR. Performed By: #### 2 777-1, 08561-1, ####[facility] LABCLIA [id number] [place] [address] [place] Glucose [Mass/Vol] 85 mg/dL Normal 74-99 [facility] Comment on above: Order Comment: Speci men Type: BLOOD SPECIMENOrdering Facility: [facility] Address: [address] [place] [address] Result Comment: The [place] [employer] (ADA) provides guidance for cutoff [...] Standards of Medical Care in Diabetes 2016, [place] [employer]. Diabetes Care. 2016.39(Suppl 1). Performed By: #### 2 777-1, 07873-5, ####[facility] [id number] [place] [address] [place] Potassium [Moles/Vol] 3.9 mmol/L Normal 3.7-5.1 [facility] Comment on above: Order Comment: Speci men Type: BLOOD SPECIMENOrdering Facility: [facility] Address: [address] [place] [address] Performed By: #### 2 777-1, 94341-6, ####[facility] [id number] [place] [address] [place] Sodium [Moles/Vol] 139 mmol/L Normal 136-144 [facility] Comment on above: Order Comment: Speci men Type: BLOOD SPECIMENOrdering Facility: [facility] Address: [address] [place], [place] [address] Performed By: #### 2 777-1, , ####[facility] LABCLIA [id number] [address] [address] [place] Urea nitrogen [Mass/Vol] 6 mg/dL Low 7-21 [facility] Comment on above: Order Comment: Speci men Type: BLOOD SPECIMENOrdering Facility: [facility] Address: [address] [place] [address] Performed By: #### 2 777-1, 33243-6, 98860-2 ####[facility] LABCLIA [id number] [address] [address] [place] CBC panel Auto (Bld)on 09-03 Erythrocyte distribution width (RBC) [Ratio] 14.4 % Normal 11.5-15.0 [facility] Comment on above: Order Comment: Speci men Type: BLOOD SPECIMENOrdering Facility: [facility] Address: [address] [place] [address] Performed By: #### 5 8410-2 ####[facility] LABIA [id number] [place] [address] [place] Hematocrit (Bld) [Volume fraction] 38.9 % Normal 36.0-46.0 [facility] Comment on above: Order Comment: Speci men Type: BLOOD SPECIMENOrdering Facility: [facility] Address: [address] [place] [address] Performed By: #### 5 8410-2 ####[facility] LABCLIA [id number] [address] [address] [place] Hemoglobin (Bld) [Mass/Vol] 12.4 g/dL Normal 11.5-15.5 [facility] Comment on above: Order Comment: Speci men Type: BLOOD SPECIMENOrdering Facility: [facility] Address: [address] [place], [place] [address] Performed By: #### 5 8410-2 ####[facility] LABIA [id number] [address] [address] [place] MCH (RBC) [Entitic mass] 25.6 pg Low 26.0-34.0 [facility] Comment on above: Order Comment: Speci men Type: BLOOD SPECIMENOrdering Facility: [facility] Address: [address] [place] [address] Performed By: #### 5 8410-2 ####[facility] LABCLIA [id number] [place] [address] [place] MCHC (RBC) [Mass/Vol] 31.9 g/dL Normal 30.5-36.0 [facility] Comment on above: Order Comment: Speci men Type: BLOOD SPECIMENOrdering Facility: [facility] Address: [address] [place] [address] Performed By: #### 5 8410-2 ####[facility] LABCLIA [id number] [place] [address] [place] MCV (RBC) [Entitic vol] 80.2 fL Normal 80.0-100.0 [facility] Comment on above: Order Comment: Speci men Type: BLOOD SPECIMENOrdering Facility: [facility] Address: [address] [place] [address] Performed By: #### 5 8410-2 ####[facility] LABIA [id number] [place] [address] [place] Nucleated RBC (Bld) [#/Vol] 10*3/uL Normal <0.01 [facility] Comment on above: Order Comment: Speci men Type: BLOOD SPECIMENOrdering Facility: [facility] Address: [address] [place] [address] Performed By: #### 5 8410-2 ####[facility] LABCLIA [id number] [place] [address] [place] Platelet mean volume (Bld) [Entitic vol] 11.2 fL Normal 9.0-12.7 [facility] Comment on above: Order Comment: Speci men Type: BLOOD SPECIMENOrdering Facility: [facility] Address: [address] [place] [address] Performed By: #### 5 8410-2 ####[facility] LABIA [id number] [place] [address] [place] Platelets (Bld) [#/Vol] 241 10*3/uL Normal 150-400 [facility] Comment on above: Order Comment: Speci men Type: BLOOD SPECIMENOrdering Facility: [facility] Address: [address] [place] [address] Performed By: #### 5 8410-2 ####[facility] LABIA [id number] [place] [address] [place] RBC (Bld) [#/Vol] 4.85 10*6/uL Normal 3.90-5.20 [facility] Comment on above: Order Comment: Speci men Type: BLOOD SPECIMENOrdering Facility: [facility] Address: [address] [place] [address] Performed By: #### 5 8410-2 ####[facility] LABIA [id number] [place] [address] [place] WBC (Bld) [#/Vol] 6.31 10*3/uL Normal 3.70-11.00 [facility] Comment on above: Order Comment: Speci men Type: BLOOD SPECIMENOrdering Facility: [facility] Address: [address] [place] [address] Performed By: #### 5 8410-2 ####[facility] LABIA [id number] [place] [address] [place] Magnesium SerPl-mCncon 09-03 Magnesium [Mass/Vol] 2.1 mg/dL Normal 1.7-2.3 [facility] Comment on above: Order Comment: Speci men Type: BLOOD SPECIMENOrdering Facility: [facility] Address: [address] [place] [address] Performed By: #### 2 777-1, 10559-0, 53837-7 ####[facility] [id number] [place] [address] [place] Phosphate SerPl-mCncon 09-03 Phosphate [Mass/Vol] 3.3 mg/dL Normal 2.7-4.8 [facility] Comment on above: Order Comment: Speci men Type: BLOOD SPECIMENOrdering Facility: [facility] Address: [address] [place] [address] Performed By: #### 2 777-1, 53698-9, 84835-6 ####[facility] [id number] [address] [place] ANES POSTPROC EVALon 024 ANES POSTPROC EVAL HNO ID: [id number] Author: ITZEL ANTONY MD Service: ? Author Type: Physician Type: Anesthesia Postprocedure Evaluation Filed: 09/03/2023 12:57 Note Text: POST ANESTHESIA EVALUATION NOTE : 2005 Procedure Summary Date: 09/03/23 Room / Location: [address] Anesthesia Start: 721 Anesthesia Stop: 1222 [...] September 03, 2023 TIME: 12:57 PM CSN: [id number] Normal [facility] ANES PRE-OPon 09-03-2023 ANES PRE-OP HNO ID: [id number] Author: ITZEL ANTONY MD Service: ? Author Type: Physician Type: Anesthesia Preprocedure Evaluation Filed: 09/03/2023 07:25 Note Text: ANESTHESIOLOGY DAY OF SURGERY NOTE : 2005 Procedure Information Anesthesia Start Date/Time: 09/03/23721 Procedure: THYROIDECTOMY TOTAL (Bilateral: Thyroid) Location: [facility] Surgeons: Latasha Bobo MD [...] access. Vitals Value Taken Time BP 95/50 09/03/23551 Pulse 80 09/03/2352 Resp 18 09/03/23551 Temp 36.7 ?C (98.1 ?F) 09/03/23551 SpO2 98 % 09/03/23551 Facility-Administered Medications as of 09/03/2023 Medication Dose [...] September 03, 2023 TIME: 7:25 AM CSN: [id number] Normal [facility] BRIEF OP NOTon 09-03-2023 BRIEF OP NOT HNO ID: [id number] Author: JANINE SOLANO MD Service: Otolaryngology Author Type: Resident Type: Brief Op Note Filed: 09/03/2023 12:12 Note Text: BRIEF OP NOTE LOG ID: [id number] Surgery/Procedure Date: 09/03/2023 Incision/Procedure Start Time: 7:53 AM Incision Close/Procedure End Time: 12:06 PM Surgeon(s)/Proceduralist(s) and Brass Molder Helper(s): Surgeon(s) and Role: * Latasha Bobo MD [...] 03, 2023 TIME: 12:12 PM PAGER/CONTACT #: [phone] Normal [facility] Calcium.ionized [Moles/Vol]o n 09-03-2023 Calcium.ionized (Bld) [Mass/Vol] 1.28 mmol/L Normal 1.08-1.30 [facility] Comment on above: Order Comment: Harriet abernathy Type: BLOOD SPECIMENOrdering Facility: [facility] Address: [address] [place] [address] Performed By: #### 1 995-0 ####[facility] LABCLIA [id number] [place] [address] [place] Calcium.ionized adjusted to pH 7.4 (Bld) [Moles/Vol] 1.22 mmol/L Normal 1.08-1.30 [facility] Comment on above: Order Comment: Harriet abernathy Type: BLOOD SPECIMENOrdering Facility: [facility] Address: [address] [place] [address] Performed By: #### 1 995-0 ####[facility] KATHY [id number] [place] [address] [place] NURSING PROGon 09-03-2023 NURSING PROG HNO ID: [id number] Author: BRENNEN AVILA RN Service: Nursing Author [...] This note was completed by: Brennen Avila [facility] OPERATIVE NOon 09-03-2023 OPERATIVE NO HNO ID: [id number] Author: LATASHA BOBO MD Service: Otolaryngology Author Type: Physician Type: Operative Report Filed: 09/08/2023 23:04 Note Text: [place] [address] or (382) CC-CARE C O N F I D E N T I A L I N F O R M A T I O N -------- STANDARD [facility] DOCUMENT OPERATIVE REPORT Otolaryngology Head and Neck Surgery Name: Sheyla Lea [facility] #: [id number] Date: 09/03/2023 Date of : 2005 Pre [...] the clavicle. These were held back with [place] retractors. The midline raphae was was bisected [...] tissue melton (more content not included)... Normal [facility] PTH-Intact [facility] - Parathyrin.intact [Mass/Vol] 42 pg/mL Normal 15-65 [facility] Comment on above: Order Comment: Speci men Type: BLOOD SPECIMENOrdering Facility: [facility] Address: [address] [place] [address] Performed By: #### 2 731-8 ####[facility] LABCLIA [id number] [place] [address] [place] SURGICAL PATHOLOGYon 024 CASE REPORT Normal [facility] Comment on above: Order Comment: Speci men Type: TISSUE SPECIMENOrdering Facility: [facility] Address: [address] [place] [address] Result Comment: [facility]urg [facility] Pathology Report Case: [id number] Authorizing Provider: Latasha Bobo MD Collected: 09/03/2023 08:16 AM Ordering Location: Admitting Received: 09/03/2023 08:19 AM Pathologist: Javier Nick DMD Intraop: Joel Jeronimo MD Specimens: A) - Trachea, Biopsy, Pre tracheal node B) - Thyroid, Total, Thyroidectomy, stitch williamson left superior pole Performed By: #### S ####[facility] LABCLIA [id number] [address] OF [facility] CLINICAL HISTORY Normal [facility] Comment on above: Order Comment: Speci men Type: TISSUE SPECIMENOrdering Facility: [facility] Address: [address] [place] [address] Result Comment: Pre- op diagnosis: Thyroiditis [E06.9] Performed By: #### S ####[facility] LABCLIA [id number] [address] FINAL DIAGNOSIS Normal [facility] Comment on above: Order Comment: Speci men Type: TISSUE SPECIMENOrdering Facility: [facility] Address: [address] [place] [address] Result Comment: A. P retracheal lymph node, excision: - Fibroadipose tissue with one benign lymph node. B. 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 Performed By: #### S ####[facility] LABIA [id number] [address] FINAL PERFORMING LAB Normal [facility] Comment on above: Order Comment: Speci men Type: TISSUE SPECIMENOrdering Facility: [facility] Address: [address] [place] [address] Result Comment: Diag nostic interpretation performed at [facility], [address] [place] [address] CLIA# [id number] Outside Food Server: Remy Erickson M.D. Performed By: #### S ####[facility] [id number] [place] [address] [place] GROSS DESCRIPTION Normal [facility] Comment on above: Order Comment: Speci men Type: TISSUE SPECIMENOrdering Facility: [facility] Address: [address] [place] [address] Result Comment: Ijeoma samaniego, Biopsy Received fresh for frozen section designated pretracheal node is a pink-buckley lymph node that measures 0.4 x 0.4 x 0.3 cm. The specimen is entirely submitted for intraoperative consultation. WE September 03, 2023 8:26 AM [place] [address] B. Thyroid, Total, Thyroidectomy Labeled: Thyroid, total, [...] lobe Blue- external surface of left lobe [place]- external surface of isthmus Sectioning: The right [...] photograph: No Cassette code: B1: Right lobe, physician relations representative section B2: Left lobe, physician relations representative section B3: Isthmus, physician relations representative section [place] [address] CLIA# [id number] 09/06/23 1:33 PM Performed By: #### S ####[facility] LABIA [id number] [place] [address] [place] INTRAOPERATIVE DIAGNOSIS Normal [facility] Comment on above: Order Comment: Speci men Type: TISSUE SPECIMENOrdering Facility: [facility] Address: [address] [place] [address] Result Comment: Ijeoma samaniego, Biopsy FSA 1: Mostly fibroadipose tissue with rare lymphoid aggregate () September 03, 2023 8:35 AM Intraoperative diagnosis performed at [facility], [address] [place] [address] Performed By: #### S ####[facility] LABCLIA [id number] [place] [address] [place] CNCOon 08-27-2023 CNCO Letter Text Normal [facility] B-HCG SerPl-aCncon 4 HCG.beta subunit Qn m[IU]/mL Normal <5.0 [facility] Comment on above: Order Comment: Speci men Type: BLOOD SPECIMENOrdering Facility: [facility] Address: [address] [place] [address] Result Comment: Nega tive Performed By: #### 2 1198-7 ####[facility] LABIA [id number] [place] [address] [place] Basic metabolic 2000 panelon 08-25-2023 Anion gap [Moles/Vol] 10 mmol/L Normal 9-18 [facility] Comment on above: Order Comment: Speci men Type: BLOOD SPECIMENOrdering Facility: [facility] Address: [address] [place] [address] Performed By: #### 1 5067-2, 2243-4, DHEAS, 23424-0 ####[facility] LABIA [id number] [place] [address] [place] Calcium [Mass/Vol] 9.8 mg/dL Normal 8.5-10.2 [facility] Comment on above: Order Comment: Speci men Type: BLOOD SPECIMENOrdering Facility: [facility] Address: [address] [place] [address] Performed By: #### 1 5067-2, 2243-4, DHEAS, 75292-6 ####[facility] LABIA [id number] [place] [address] [place] Chloride [Moles/Vol] 106 mmol/L High 97-105 [facility] Comment on above: Order Comment: Speci men Type: BLOOD SPECIMENOrdering Facility: [facility] Address: [address] [place] [address] Performed By: #### 1 5067-2, 2243-4, DHEAS, 74023-0 ####[facility] [id number] [place] [address] [place] CO2 [Moles/Vol] 24 mmol/L Normal 22-30 [facility] Comment on above: Order Comment: Speci men Type: BLOOD SPECIMENOrdering Facility: [facility] Address: [address] [place] [address] Performed By: #### 1 5067-2, 2243-4, DHEAS, 38234-9 ####[facility] [id number] [place] [address] [place] Creatinine [Mass/Vol] 0.67 mg/dL Normal 0.58-0.96 [facility] Comment on above: Order Comment: Speci men Type: BLOOD SPECIMENOrdering Facility: [facility] Address: [address] [place] [address] Performed By: #### 1 5067-2, 2243-4, DHEAS, 67860-3 ####[facility] LABIA [id number] [place] [address] [place] Creatinine and Glomerular filtration rate.predicted panel (S/P/Bld) 129 mL/min/1.73m??? Normal >=60 [facility] Comment on above: Order Comment: Speci men Type: BLOOD SPECIMENOrdering Facility: [facility] Address: [address] [place] [address] Result Comment: Akila mated Glomerular Filtration Rate [...] actual GFR. Performed By: #### 1 5067-2, 3-4, DHEAS, 07877-0 ####[facility] LABIA [id number] [address] [address] [place] Glucose [Mass/Vol] 90 mg/dL Normal 74-99 [facility] Comment on above: Order Comment: Speci men Type: BLOOD SPECIMENOrdering Facility: [facility] Address: [address] [place] [address] Result Comment: The [place] Diabetes [employer] (ADA) provides guidance for cutoff [...] Standards of Medical Care in Diabetes 2016, [place] [employer]. Diabetes Care. 2016.39(Suppl 1). Performed By: #### 1 5067-2, 3-4, DHEAS, 02233-5 ####[facility] LABIA [id number] [place] [address] [place] Potassium [Moles/Vol] 4.0 mmol/L Normal 3.7-5.1 [facility] Comment on above: Order Comment: Speci men Type: BLOOD SPECIMENOrdering Facility: [facility] Address: [address] [place] [address] Performed By: #### 1 5067-2, 2243-4, DHEAS, 72634-1 ####[facility] LABCLIA [id number] [place] [address] [place] Sodium [Moles/Vol] 140 mmol/L Normal 136-144 [facility] Comment on above: Order Comment: Speci men Type: BLOOD SPECIMENOrdering Facility: [facility] Address: [address] [place] [address] Performed By: #### 1 5067-2, 2243-4, DHEAS, 85513-2 ####[facility] LABCLIA [id number] [place] [address] [place] Urea nitrogen [Mass/Vol] 10 mg/dL Normal 7-21 [facility] Comment on above: Order Comment: Speci men Type: BLOOD SPECIMENOrdering Facility: [facility] Address: [address] [place] [address] Performed By: #### 1 5067-2, 3-4, DHEAS, 94629-6 ####[facility] LABIA [id number] [place] [address] [place] CBC panel Auto (Bld)on 08-24 Erythrocyte distribution width (RBC) [Ratio] 14.3 % Normal 11.5-15.0 [facility] Comment on above: Order Comment: Speci men Type: BLOOD SPECIMENOrdering Facility: [facility] Address: [address] [place] [address] Performed By: #### 5 8410-2 ####[facility] LABIA [id number] [place] [address] [place] Hematocrit (Bld) [Volume fraction] 41.4 % Normal 36.0-46.0 [facility] Comment on above: Order Comment: Speci men Type: BLOOD SPECIMENOrdering Facility: [facility] Address: [address] [place] [address] Performed By: #### 5 8410-2 ####[facility] LABIA [id number] [place] [address] [place] Hemoglobin (Bld) [Mass/Vol] 13.1 g/dL Normal 11.5-15.5 [facility] Comment on above: Order Comment: Speci men Type: BLOOD SPECIMENOrdering Facility: [facility] Address: [address] [place] [address] Performed By: #### 5 8410-2 ####[facility] LABIA [id number] [place] [address] [place] MCH (RBC) [Entitic mass] 25.3 pg Low 26.0-34.0 [facility] Comment on above: Order Comment: Speci men Type: BLOOD SPECIMENOrdering Facility: [facility] Address: [address] [place] [address] Performed By: #### 5 8410-2 ####[facility] [id number] [place] [address] [place] MCHC (RBC) [Mass/Vol] 31.6 g/dL Normal 30.5-36.0 [facility] Comment on above: Order Comment: Speci men Type: BLOOD SPECIMENOrdering Facility: [facility] Address: [address] [place] [address] Performed By: #### 5 8410-2 ####[facility] LABIA [id number] [place] [address] [place] MCV (RBC) [Entitic vol] 80.1 fL Normal 80.0-100.0 [facility] Comment on above: Order Comment: Speci men Type: BLOOD SPECIMENOrdering Facility: [facility] Address: [address] [place] [address] Performed By: #### 5 8410-2 ####[facility] LABIA [id number] [place] [address] [place] Nucleated RBC (Bld) [#/Vol] 10*3/uL Normal <0.01 [facility] Comment on above: Order Comment: Speci men Type: BLOOD SPECIMENOrdering Facility: [facility] Address: [address] [place] [address] Performed By: #### 5 8410-2 ####[facility] LABCLIA [id number] [place] [address] [place] Platelet mean volume (Bld) [Entitic vol] 11.6 fL Normal 9.0-12.7 [facility] Comment on above: Order Comment: Speci men Type: BLOOD SPECIMENOrdering Facility: [facility] Address: [address] [place] [address] Performed By: #### 5 8410-2 ####[facility] LABCLIA [id number] [place] [address] [place] Platelets (Bld) [#/Vol] 256 10*3/uL Normal 150-400 [facility] Comment on above: Order Comment: Speci men Type: BLOOD SPECIMENOrdering Facility: [facility] Address: [address] [place] [address] Performed By: #### 5 8410-2 ####[facility] LABCLIA [id number] [place] [address] [place] RBC (Bld) [#/Vol] 5.17 10*6/uL Normal 3.90-5.20 [facility] Comment on above: Order Comment: Speci men Type: BLOOD SPECIMENOrdering Facility: [facility] Address: [address] [place] [address] Performed By: #### 5 8410-2 ####[facility] LABCLIA [id number] [place] [address] [place] WBC (Bld) [#/Vol] 3.93 10*3/uL Normal 3.70-11.00 [facility] Comment on above: Order Comment: Speci men Type: BLOOD SPECIMENOrdering Facility: [facility] Address: [address] [place] [address] Performed By: #### 5 8410-2 ####[facility] [id number] [place] [address] [place] DHEA-S BLDon 08-25-2023 DHEA-S [Mass/Vol] 365.3 ug/dL 65.1 - 368.0 ug/dL [facility] DHEA-S [Mass/Vol] 365.3 ug/dL Normal 65.1-368.0 [facility] Comment on above: Order Comment: Speci men Type: BLOOD SPECIMENOrdering Facility: [facility] Address: [address] [place] [address] Result Comment: Refe rence ranges are age and gender specific. For additional information, reference range tables can be found in the laboratory test directory. The normal values are based on the following source: Dehydroepiandrosterone sulfate (DHEA S) [package insert V 17.0 Tajik]. [facility], [place], [place]: December 2012. Performed By: #### 1 5067-2, 2243-4, DHEAS, 94044-4 ####[facility] LABIA [id number] [place] [address] [place] ECG COMPLETEon 08-25-2023 ECG COMPLETE Ventricular Rate : 7 0 BPM Atrial Rate : 70 BPM P-R Interval : 136 ms QRS Duration : 70 ms Q-T Interval : 404 ms QTC Calculation(Bazett) : 436 ms Calculated R Pool : 76 degrees Calculated T Pool : 56 degrees NORMAL SINUS RHYTHM NORMAL ECG Confirmed by MIRNA MICHAEL MD ([id number]) on 08/31/2023 8:27:21 PM NAME : SHEYLA LAE PID : [id number] : 2005 Gender : Female Race : ORD : [id number] Procedure Date : Aug 25 2023 08:09:41 Edit Date : Aug 31 2023 20:27:23 Diagnosis: NORMAL SINUS RHYTHM NORMAL ECG Confirmed by MIRNA MICHAEL MD ([id number]) on 08/31/2023 8:27:21 PM Test Reason : Location : 119 : A17 Overread By : MIRNA MICHAEL MD Edited By : MIRNA MICHAEL MD Referred By : LATASHA BOBO Acquired by : DARRIAN CONTRERAS [facility] ESTRADIOL-17B BLDon 08-25-19 24 E2 [Mass/Vol] 39 pg/mL [facility] Estradiol SerPl-mCncon 08-24 E2 [Mass/Vol] 39 pg/mL Normal [facility] Comment on above: Order Comment: Speci men Type: BLOOD SPECIMENOrdering Facility: [facility] Address: [address] [place] [address] Result Comment: This test is not suitable [...] 3243 pg/mL Second trimester : 1561 to 76388 pg/mL Third trimester : 8285 to >14270 pg/mL Post-menopausal Estradiol reference range: < 41 pg/mL Reference: 1. Estradiol - E2 (Estradiol III) [package insert V 3.0 [place]ik]. [facility], [place], [place], October 2015. Performed By: #### 1 5067-2, 2243-4, DHEAS, 96251-2 ####[facility] LABCLIA [id number] [facility] [id number] [address] [place] FSH BLDon 08-25-2023 Follitropin Qn 6.2 m[IU]/mL See comment mIU/mL [facility] FSH SerPl-aCncon 08-25-2023 Follitropin Qn 6.2 m[IU]/mL Normal See comment [facility] Comment on above: Order Comment: Speci men Type: BLOOD SPECIMENOrdering Facility: [facility] Address: [address] [place] [address] Result Comment: Refe rence range: Follicular: 3.5-12.5 mIU/mL Ovulation: 4.7-21.5 mIU/mL Luteal: 1.7-7.7 mIU/mL Postmenopausal: 25.8-134.8 mIU/mL Performed By: #### 1 5067-2, 2243-4, DHEAS, 25636-0 ####[facility] LABCLIA [id number] [place] [id number] [place] HCG QUANTITATIVEon 4 HCG.beta subunit Qn <5.0 mIU/mL [facility] HISTORY PHYSICALon 4 HISTORY PHYSICAL HNO ID: [id number] Author: JOHN HUMPHREY PA-C Service: ? Author Type: Physician Brass Molder Helper Type: H&P Filed: 08/26/2023 10:08 Note Text: [...] CAD, chest pain, CHF, DVT/PE, hypertension, recent [place], murmur/valvular heart disease and PVD. GI: Positive [...] Maternal Gra (more content not included)... Normal [facility] HYDROXYPROGESTERONE-17on 17-HYDROXYPROGESTE TSERING QUANTITATIVE BY HPLC-MS/MS, SERUM OR PLASMA 29.23 ng/dL Normal <=206.00 [facility] Comment on above: Order Comment: Speci men Type: BLOOD SPECIMENOrdering Facility: [facility] Address: [address] [place] [address] Result Comment: INTERPRETIVE INFORMATION for 17-Hydroxyprogesterone in females: Follicular 15 to 70 ng/dL Luteal 35 to 290 ng/dL REFERENCE INTERVAL: 17-Hydroxyprogesterone Qnt, HPLC-MS/MS Access complete set of age- and/or gender-specific reference intervals for this test in the [facility] Test Directory (Treatsie). This test was developed and its performance characteristics determined by [facility]. It has not been cleared or approved by the [place] Food and Drug Administration. This test was performed in a CLIA certified laboratory and is intended for clinical purposes. Performed By: [facility] [address] [place] [address] Outside Food Server: Jaden Fonseca MD, PhD CLIA Number: [id number] Performed By: #### H PROG ####[facility] [id number] [place] [id number] LH SerPl-aCncon 08-25-2023 Lutropin Qn 8.8 m[IU]/mL Normal See comment [facility] Comment on above: Order Comment: Speci men Type: BLOOD SPECIMENOrdering Facility: [facility] Address: [address] [place] [address] Result Comment: Refe rence range: Follicular: 2.4-12.6 mIU/mL Midcycle: 14.0-95.6 mIU/mL Luteal: 1.0-11.4 mIU/mL [place]: 7.7-58.5 mIU/mL Performed By: #### 2 842-3, 75838-8 ####[facility] LABIA [id number] [place] [address] [place] LUTEINIZING HORMONEon 2023 Lutropin Qn 8.8 m[IU]/mL See comment mIU/mL [facility] PROLACTIN BLDon 08-25-2023 Prolactin [Mass/Vol] 8.6 ng/mL 4.5 - 26.8 ng/mL [facility] Prolactin SerPl-mCncon 08-24 Prolactin [Mass/Vol] 8.6 ng/mL Normal 4.5-26.8 [facility] Comment on above: Order Comment: Speci men Type: BLOOD SPECIMENOrdering Facility: [facility] Address: [address] [place] [address] Result Comment: Prol actin test is performed using the [facility] Electrochemiluminescence Immunoassay method. Results obtained with different methods or kits cannot be used interchangeably. Performed By: #### 2 842-3, 25080-3 ####[facility] LABIA [id number] [place] [address] [place] TESTOSTERONE, FREE AND TOTAL on 08-25-2023 TESTOSTERONE, FREE, S 1.45 ng/dL High <0.13-1.08 [facility] Comment on above: Order Comment: Speci men Type: BLOOD SPECIMENOrdering Facility: [facility] Address: [address] [place] [address] Result Comment: ADDITIONAL INFORMATION This test was developed and its performance characteristics determined by [facility] in a manner consistent with CLIA requirements. This test has not been cleared or approved by the U.S. Food and Drug Administration. Performed By: #### T FTEST ####[facility] LAB[facility] [id number] [place] [address] TESTOSTERONE, TOTAL, S 56 ng/dL Normal 8-60 [facility] Comment on above: Order Comment: Speci men Type: BLOOD SPECIMENOrdering Facility: [facility] Address: [address] [place] [address] Result Comment: ADDITIONAL INFORMATION Testing performed by Liquid Chromatography-Tandem Mass Spectrometry (LC-MS/MS). This test was developed and its performance characteristics determined by [facility] in a manner consistent with CLIA requirements. This test has not been cleared or approved by the U.S. Food and Drug Administration. Test Performed by: [place] [id number] Commissary Worker: Yan Echols M.D. Ph.D.; CLIA# [id number] Performed By: #### T FTEST ####[facility] LABCLIA [id number] [place] [address] Alexsander 07-13-2023 CNPN Telephone (HNQ) SHEYLA LEA ([id number]) 3 F Date Time Provider Department 07/13/23 [...] to consider it. She will see her svp monetization which is a new svp monetization in August and then if still interested in pursuing thyroidectomy will reach out to me. In the meantime we can hold a surgical date. Latasha Bobo MD Allergies As of Date: 07/13/2023 (No Known Allergies) Date Reviewed: 04/23/2023 Reviewed by: Ayesha Maddox RN - Fully Assessed Reason for Visit: Results [95] Primary Visit Diagnosis:Thyroiditis [E06.9] Order(s):SURGICAL REQUEST - ELECTIVE (12/2019) [6028374] Order #: [id number]: 1 CBC [SQCBC] Order #: [id number] FUTURE BASIC METABOLIC PNL [SQBMP] Order #: [id number] FUTURE ECG COMPLETE [ECG01] Order #: [id number] FUTURE Prescriptions as of 08/02/2023 - omeprazole [...] Status:Closed by LATASHA BOBO on 08/02/23 Normal [facility] T4 Free SerPl-mCncon 024 Free T4 [Mass/Vol] 1.2 ng/dL Normal 0.9-1.7 [facility] [place] Comment on above: Order Comment: Harriet abernathy Type: BLOOD SPECIMENOrdering Facility: [facility] Address: [address] [place] [address] Performed By: #### 3 016-3, 3024-7 ####[facility] LABCLIA [id number] [place] [address] [place] THYROGLOBULIN ABon Thyroglobulin Ab Qn 91.0 [IU]/mL High <4.0 [facility] Comment on above: Order Comment: Harriet abernathy Type: BLOOD SPECIMENOrdering Facility: [facility] Address: [address] [place] [address] Result Comment: The Thyroglobulin Antibody test was performed using the Galeneael DXI paramagnetic particle chemiluminescent immunoassay method. Results obtained with different assay methods or kits cannot be used interchangeably. Performed By: #### T EVARISTO ####[facility]CLIA [id number] [place] [address] [place] THYROID PEROXIDASE ANTIBODY BLOODon 07-09-2023 TPO Ab Qn 249.5 [IU]/mL High <5.6 [facility] Comment on above: Order Comment: Harriet abernathy Type: BLOOD SPECIMENOrdering Facility: [facility] Address: [address] [place] [address] Result Comment: Thyr oid Peroxidase Antibody test is used as an aid in diagnosis of autoimmune thyroid disease. Clinical correlation is required. Performed By: #### M ICRO ####[facility] LABIA [id number] [place] [id number] [place] TSH SerPl-aCncon 07-09-2023 TSH Qn 2.600 m[IU]/L Normal 0.510-4.300 [facility] Comment on above: Order Comment: Speci men Type: BLOOD SPECIMENOrdering Facility: [facility] Address: [address] [place] [address] Result Comment: If t he patient is , TSH reference range varies by gestational period: First Trimester (weeks 9-12): 0.180-2.990 mIU/L Second Trimester: 0.110-3.980 mIU/L Third Trimester: 0.480-4.710 mIU/L Jose Fisher et al. A Practical Approach for the Verifications and Determination of Site- and Trimester-Specific Reference Intervals for Thyroid Function tests in . Thyroid, 2019:29:3:412-420. Loc E, et al. 2017 Guidelines of the [place] [employer] for the Diagnosis and Management of Thyroid Disease during and the . Thyroid, 2017:27:3:315-389. Reference ranges were not locally established for this patient's age group. The normal values are based on the following source: Jayla W, Tim Elam. Reference Ranges for Adults and Children: Pre-analytical Considerations. [facility] Performed By: #### 3 016-3, 3024-7 ####[facility] LABIA [id number] [place] [id number] [place] CNOVon 04-23-2023 CNOV Office Visit (OTOLMN ) SHEYLA LEA ([id number]) 3 F Date Time Provider Department 04/23/23 [...] mobility normal Neck Ultrasound: 05/17/2023 Ultrasound Machine: Medical Referral Source Transducer: Linear 11 MHz Regions examined: Thyroid [...] [E04.1] Order(s):US THYROID/PARATHYROID (POC) HNI USE ONLY? [4851001] Order #: [id number]. #:[id number]: 1 TSH BLD [SQTSH] Order #: [id number] FUTURE T4 FREE/FREE THYROX [SQFT4] Order #: [id number] FUTURE THYROID PEROXIDASE ANTIBODY BLOOD [SQMICRO] Order #: [id number] (more content not included)... Normal [facility] Coding Summaryon 02-05-2023 Coding Summary HTMLBase 64 LkbxwpybAQd3vMz+PGhlYWQ+PE1 CHGPtO70dpZLhrT2vE2WYLTqDNk ojDSGDPXhONaRogaAfVN5xtNJkX XJu IC8+PP1cYVNuYbhtkXIrj4P0aJG 6R12btp5sAFbjqRP8ENQxByPorp zhj9cidEu3JWwnJhbxCbVl HCCvxO03ZMB8fI91Bi76yVCkuUR nc7cxoMz3AqIjCAIkLTP7oXlaJP qxb0JqXDVfX78cuRPux8G9 NOVjtIyytLLxJoDvpYY9uS5bWZl aovsdi1eiytrqDpl3mx62oUBoq2 P3aKL2P6MoncX6WVXgtOMt KputwPPCeD3ipfuxb4zilghaOlU gIUEeUGn5CDc3CZFbpIcgLnPzLP 60SUZ5VQDfepHcA0MsIVUg kVmtObU0t9F4Yi8MC7CBRbjqX5Q NTUFSWTwvdGQ+XO77qc04F4GsJg hiCad6FDKbNLK9sDU2hA8p TVQuDLvgp8K5oLQ5C5QddfZpxo0 xa0ysGZGeEWyaD39nrSAjc0T1HJ CxwQF4AMTpwVoeHpNjeO92 Oyc+WZOwlWguy1YgXehuw4vmt7i bhWb4AvwyAWEehlAjpSskLSJ7e8 VuAd6oFIYsiUX2lOC9vU6d LoPxKjI3HFeyS060NaUhmBGsHny iY76pP1WmuKB+IVBfCbm3ZXQdxM vjMS5dY0IuAEUyxcivlIJp cAhiLX2uPLIpgcedVMWjpE4qOIA fN6i9KzPqBfQ4AQdhP2WbLTForo hhUn41qM6fSiPpSkJ6VEzc N5MmgyQ9JZZceBGgWDnnYXZ6V29 nj6O0WKJrDKIgVUV5lHM3vQ5elJ lnbjogbGVmdDsgdmVydGlj UYcjGUzeF453OEBckLwtKzDkGGz uZyBEYXRlOiAgMDkvMjIvMjAyMz wvdGQ+XJNoEUA0rZfvNJAw rVPvIPzqGb1cdQatwTaeBF1nWNW igwmiOQLriF7zFPGvrQAfxUowEK 2mXYLaqvfua395OlHmOQW2 KTDthDJjN1GppD0yLgJtCOIvXZA xY0QdbECiIZjsM266RGtwHkF8KM LamoJcO5ShEMJcqPvvMpO4 r4C9Eg4Zm8PafqvmT7CwsPDeCaC tRlrxOLd4V8RnEgmpvRD+PC90YW UiQD71PMv4NCB8oUdmURar HUFyQ8YxkV9yEaGsSLHaGHFwZsm +PHRhYmxlIHdpZHRoPScxMDAlJy GpfEubHI3eTx6dVCHmCVXx bUgagGSlFyBqi9qrGTRyRPrjEH1 cgXaoF2AghDZ1YZUwk3z6Df70E0 5eE9KefIW+AVCmhUD7iWW4 lJ5cGuLhJaB5SAymN759WpHdmVM uJkrdv4nqv5bcgEy0AhV9FHRzjm CzxZrjZJE9y9LxNj95K22d IHdpZHRoPSIxNSUiIHZhbGlnbj0 wyN9rWc6+FCZswXU7jTK4kJ9oKd PvAmL4BVmzH379FyBizHLf Ipjdw8wnh9pwkHk4FfVnIOJvgfA qnOqtHAZ6n8IqBd32T6YqvKudk7 RdMop6kv78eAPpd7C1uED2 Q8XjRLCgrumirSUgnQkhTR9jFPE irsxtABGdvB0jHBOyX9a6UoViOs Z7VPtbM3FkbyY2TBGnaCAj SWDueTEGgI5mmcwfy4eamyixTbG nUKMyNXc7XSq9YQPbxMyeUhErOT O4TjB2PQE1pSGymY9ifWeo akyssF2lHgj+JBA2dSJlmUVUPR3 lOjwvdGQ+MAQaNSM9wWxxCJzhTB VkwD6gCBQyX9g0YmXvWoZ4 BCzbK5DhzjP8ZJLsxTDbFIElqME KkN9jzknqj4ezrzioQnYaWRRyZW p3MKz4YINueMdpMoRxARD2 UkL9EOO6pCLogN7ytBhkasfnlO8 wOyc+GwmqsYmmQJM7VSh9M7AvDu h9CJXhyLqxMC7ywOTpFMvl Vv1baRqcnLvrKI9nZJCzywrkd00 0EoLsb0kuMGPrkDAtYCavFMQ4F2 1jv6Z3RJJgRWXdKSX8lYY4 mA5goDslhyotqNMdiGyhlnBbpKn eMHcqNHqsK883SZQsjAhxBnTdFJ c1B8TbQjg6OPWghYfwSF7m eZLyBUrtMi6uwXcubLqaDA5oEHD qukuzi650FlMxo7ytISAyjWApWK urJSM2V09zm1W7BBSkUHGt TTA5zZQ1bE3bnClzkjayuVKmdYv ohmKmvSyeKXpfZLwiB112NVQgjH qoPeDcpAv9G9ZnNrz8ACIw mZddEC9fpADyVAiqQj2teEqgnEt pRM0sNBNuqyrwk190JrBxh3afJY IkxYLvKHnnUMW0P92tu0Z4 DOUmTGObEAC4oAL2sZ3vfEsqvgx gbGVmdDsgdmVydGljYWwtYWxpZ2 46IHRvcDsnPlBhdGllbnQg ATkbPXv3G5ZmPohveXN+VQ67AMK yTQ12pOVteIVff5dolRx1QqZvQX FcYZW6bQmoLWbbm2ZwHWYe N49saNPcj6X0KNItxFszfXMgMmE qqRS0aD4sWKxtekwrk6erdecrAj brs1kilu37aC25R44lJLmy QPLsKTJaCKEeOAAekNhyiv0sjL2 wIi8+JBRopLU0xJT5wX6zHWRkQf D1SXydT849NqVuiCOpCnsv y0etk0awzDu8YnT7LIZulcMmtGq sQNV8v2XrRo88C87aKLfwRYNmVP PwZFPrIHFueEmamv4hxI7j Ii8+HLCtsPL3hOB7yR6nSbUvMjM 6REzjD937UpFprNUoQmntT13aM8 JvdXA+OPSxKjn1VUAadHgh RZ3wdZVeXQylIp7hPAP7JqOfPpJ jMDljG7GeGOTkdgnwgedixVH7XS YuLAFwxD26Ih0ioTeaJBMv xKSPiE4metrgm5rgogdyLeDbUSC xRNz8CNa2ZDLyuIyiOzWpBHI2Yk X3HRJ3iVKljL6vmLlrnaqw kJ1vU4WgOGYpwsdjNs56aU1uUxC xQuR7MTbqAvk+GH4ATNBXOLUkZX fHDl9XJLhKHLDWWImMLB5Q RlsGNJ30YZ03jIUkv2J4mTL3U6V cJAZsddsmfnfxiFV8PDSvPOPkzW 03gYPmTBlaIv4yn3H0o417 SRRrCBJwzS19Pf8ocTwsZMIvrTN CwT8dlccpl5hbjetiApStSRFaGB y8AIr6RMFleYhqEaLwZNF0 HqH1LHT3jQBkpM4efAlctnuabF0 wOyc+MDIvMDkvMjAwNTwvdGQ+PH CpSHL9cEkwHIclLYDlrS2h VZMqJ4t5FxKrVuF1MGezX4HhMIQ hysmiHz77lY9vPoKtAcY8PLuyD9 RqjfP3JZOngBWrMYnqPQR5 S27nk5P9LRZfFLOlFAD9eIN1wZ2 hbGlnbjogbGVmdDsgdmVydGljYW hqNXxeW706RIFyvUjyQlH4 TMnsEXFmLJ32UU21kUYnq9M1sYH 3G3NnEVTwwqxgohbpjKB4BNMbCM YahV39wEYoDAesRd7ud4N7 i491RUKlYOQoqW50Ic7mlMxuOQA deIECxL3qgsogt4bbmoejKvBpZR PmCCm9OVa3QKSabBgeGxZa RIN8OiX4ITR2jSIhiC9oaAwjgfe foG5nLpg+EkFPVLjSCC93XO58oC Mbs5Y5jQR6G2NcRKOqllal nemrfDM3SDMaYXIadW77sVIxFUu bCi8yu1H4u049LMCqMMCjjS58Mk 9jiWwiPITquLTWrK2knrst b3bcpbtiQxLmNHMcQVc3NGp3VLB nhRpvPbNtWRU8YiD6KBY7bCRkyJ 4wlNjletrscL6jJno+T1A8 C1UfCvlpvQG+CL87JSGqBR19lKA zoVBbz7hcrTb9EvNrRTOvCMJ9sZ kuKMckt4NmWBGrI07kjTJa q0U7GXUqaPbyjTVjVzWkeUS4fL3 dFDyluzeef7rpriwzSnamh1flqc 40eU72Y21gWKrdRBAkKFKi CJPrSLMafHnewi1suG0nRr5+PGN mgGN7zSD7tM2bIrSzLoO6AQxlM9 32KkTlxFOfBqaui1hyo9ye iMo6PuFpANAitrCysQxuENL0j6Q jFt72K59qBVlgPLLnCLJcCAPpWL EvkSnkxm0ztT9lTj0+PC9j o1xxye65qZ83wVE+XMLcGJC6rBg fYRyeASKttI2zPBtbUrY8RSBtQa SjiN80iUUkCYggIj0nzUho aNsiCY5sYIKcdiaxm322VbQyv8q tJRIivKMyHUzqXFH4W15yu4X4AA TtIRXwFGO8iQR7wP2okQxy bjogbGVmdDsgdmVydGljYWwtYWx tT489GOMrcZbaNuZqjMUuZ7hdfw DFBY6xWjbujZB+PHRkIHN0 jFgyUExgQQEngI0sNLFfS5p3UxT pUoX4DPsbM7NwfwT7PDDqsBGxOH SltKUUrC0zcnkff1ipjcvf PuTrOPNfKCz2WBf1JQFhlIwfLcU cFXL8UjR0KLE2rMJxnB3frEkowr fffW0dTkj+RklOOjwvdGQ+ OZJnVAB2wGisVWwuTTIeoI8yPSQ sQ2b3FaLxOoY9SAdeR0JcyaD8VO AhfIKrTOLbnHPDrJ2phprk i5ehgyazYoUuGDUzYYe8DWp6BMX yfUqgJiYrLPC4SgO5ADW7sUTpmL 8dmVuebjyllI3rBya+TVJO OjwvdGQ+KFHzBCW6gMtdZFdwKBM rbD0yVAOtW1z3ZdVcHaF1HIdeW7 ZlnjF1FMUexGFdXZTlzXMN xX4akzamk7rczysdHtUdZAIlCCe 2SYq7NEOpcWxaUsFzWDT1CdM9QB E2oAYfsA9ttQolohdfvJ6m Oyc+ZBK3CDR7XM22MG17X0AnFhe vdGFibGU+PHRhYmxlIHdpZHRoPS ebDRIlLpBwuTziSS4lPo5e ZGV (more content not included)... Normal [facility] ED Clinical Summaryon 2022 ED Clinical Summary [facility] ? Urgent Care [address] [place] [address] Clinical Summary PERSON INFORMATION Name: SHEYLA LEA Age: 17 Years Sex: FEMALE : 2005 MRN: Acct#: Visit Reason: General medical; HEADACHE, RUNNY NOSE Arrival: 01/27/2023 17:33:58 Discharge: 01/27/2023 19:00:00 LOS: 000 01:27 Check In: 01/27/2023 17:33:58 Checkout: 01/27/2023 19:00:00 Address: [address] [place] [address] PCP: Aime Goff DO PROVIDER INFORMATION Provider Role Assigned Unassigned Zara Fleming [employer] MAINTAINER Nurse 01/27/2023 17:38:07 Chetna Rodriguez PA-C ED [...] Follow-Up: With: Address: When: Aime Goff DO [address] [place] [address] DIAGNOSIS: 1:Viral upper respiratory illness Patient Understands: Comment: [facility] ED Note-Nursingon 01-27-2023 ED Note-Nursing covid back at time o f discharge. aware of results [facility] ED Patient Summaryon 023 ED Patient Summary [facility] ? Urgent Care [address] [place], [place] [id number] PATIENT DISCHARGE INSTRUCTIONS Patient Information Name: SHEYLA LEA Age: 17 Years Date of : 2005 Reason For Visit: General medical; HEADACHE, RUNNY NOSE Arrival Time: 01/27/2023 17:33:58 Primary Care Physician: Aime Goff DO Attending Physician: Chetna Rodriguez PA-C Comment: Patient Education With: Address: When: Aime Goff DO [address] [place] [address] Viral Respiratory Infection A respiratory infection is [...] home: Managing pain and congestion ? 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 ? Cover your mouth when you cough. [...] system, suc (more content not included)... Normal [facility] Coding Summaryon 01-20-2023 Coding Summary HTMLBase 64 XzjjqxznXJe7rHr+PGhlYWQ+PE1 IDVEbV00dxISojZ6qP0KZFZfJRg fpBBTRKHtAQuEittIlBC4kxGXmK XJu IC8+XI7yRYVwEpxorDUwc4B1uSN 2A32dkg7kRQizpTW0BQQiSlZsvr apu2zbiYe5FWnbIuexVeFw CATlaR67RKO3mT67Ui55zHKieWZ sb5bluIx5RsCeDRWmJIK0pNdtDI xrk1LoMNFhD44biYJnf4O5 AEMxyRywuSIdFaGboVQ8sL7iRXh nkfqxi5rpbjssHos8vz69cZPhw6 J2gHE9B7ZqhuX0WCVezLHt OnftwPQSeW2ehqizx0bwqvkpBtA qRXPuZUo6BNp8HKAuqFpbIcReLQ 38JIR3XSEssqQyJ2RwOPZh aRmjPkU6d7G8Np2IF7XITtdkR3U NTUFSWTwvdGQ+CM37gp99J8UbEr kqXpl9XRUcTNW4wZO3gI6u NJCpBEgni3G5cYZ4V6YbjtGyzp4 yg8feALLmOBbaR20juDLmv1A9YT CblWD5FJZmfWknErXusJ62 Oyc+YAVilIlrw9ThPlbmi9ywc8f dvDq0XdggTRNiekTinEdzATF8q7 OjRq6oPRFpzMA8tDD5iV8o NvDqBjS2GYvyH684ItNeyCHjDkv nB02bH3GfuNQ+OCFzEfg3OXTreY yeVY2aQ6EbZMXziicewSFr bBmwID0uDSLchcgpNVWygC6dMDO uF9t2JpGvYlB7VPmsD2OnENKbeq bvUm58wS8sHzAxEbH2TEcn I2QjzgY2YTGuiZWwJFzgLBZ5V84 ff9M5XIYzHIGgWJM1yBK7iH1raG lnbjogbGVmdDsgdmVydGlj BVxiIIeiN466CQIslIyzRwWcFFg uZyBEYXRlOiAgMDkvMDYvMjAyMz wvdGQ+SNZqNTZ8iPalHORe aJAoDKfwYd3ecRpqgUosEO7vQVH vwtqsWIHyeR9jTBTmiMDjlKmmGF 5cUCTmdktce767DzWnZAG7 FCBipMOwC6QakE2cFaSeGHOnRAJ kM4LmdHOyHEgsU058IFcnYjK6FQ VnoqWmW3CcIQNyiKujUmY2 i7Q6Bm9Yx6XyptiiB1WagHXzAnB lElqxNQk4E3GtGaaedOP+PC90YW JpNY42GKi7WHR2kZloQQuq QJOsF4GnsL9bMmDuORGjOKXnNpt +PHRhYmxlIHdpZHRoPScxMDAlJy LulWpnEX7wMq9qPATdIXLz lGmmkYDjJfGww7dyLNGmTIeiXY7 kkBjeV1GtaMR1EZRux7t0Od76B0 4tU3UdjQT+LDYusWP3oIE2 sV1wDiHqZiE9LQcgM867ZkCnmDR mKlbfh3dqy5ifrAe5IwD8QYTgeh ValRlwOIQ1q1FaWw21U37q IHdpZHRoPSIxNSUiIHZhbGlnbj0 ctW7jOb1+WPFjxKU7qZA9mV9uAo CyYoG4BRieA980HwSrcERp Ynglh2oub9odrRw8GyCrXTCqhrI itQsoMIB6z8TrKn06X8VzpXtxj4 XhTpp7aa44jUDed0K8vKW1 E6MgZSKnyfhcmFAreTyqZX1oCHF zdgbsQCJptT1bYURfI8r2XbYwLf Y5UGguH7BergX4PXKebWMg SSZkaWQRlJ4zfzrbk1snejviDmR uHNVhGXa2YYv9LGDltIenKrTrFL V7MsA9IIT0pPHhcY5ivMym cnrofZ0hHta+QNY4hLWizIZLYS2 lOjwvdGQ+EHAfXSB4xGlvYApqZN KlxI7gSOPwH8w8EyWwAoV5 XLamL7LehxU4LKMdbZFnHUQxaUY JwD0hgbmxj6qxcepqHjBtXCBeVY l7TWi5CLAtfSuwZvYhSUJ4 UuU8TYD1tIVwhS6jwBjkfxsxgP0 wOyc+PfkjtWszOIG2YBy5Q6NyCj r3ULYfrEuvOX0qsXXvNXgq Qx9wxLfpbYgxTV0zLAMuqhsdy93 2FuPzk2iuAAOseJCnIIpxDHE1A0 6ci0W0VJIgDSHlTWJ5rMJ6 rJ4igRedupzbrXCyaCkqiaXshAs cZXrjQLpqK150OFGfpIheCzPjSE l3O9LbBcj3SRHcmMxdVX1i cVUpVKycUa2pgGglqTerCW5sCSW mtqhpq972QiEdt3taYLXsqAYtAS gaQZK3S33nt8L4FNQpBXCl YJK3bFI2lK1ppCdfbncipONzzRy vkrIahYsbXIvjIXqoT443KXIpvQ zwJyQvpLw6J4FnHau5DRPw iLceBF7fhSRfZDjhLx7suUzfcGx jMZ0qUTSickzah869BvGzk7tqPH QbiYSbSJxcGIQ5S54cl2X3 RMOuPQBoYMX3cGJ6cZ6giVxdlms gbGVmdDsgdmVydGljYWwtYWxpZ2 46IHRvcDsnPlBhdGllbnQg LTarBEy4F6HxVechzGK+XA83OSD nNF55cGYmkVTdg1qpzCk0DmLmHB OaBLO1xWdgJGqze7FsIOTo O12jeHWrl7D1JYQdyRwnsLJvWlE giTP2iY7oDDvxukcra8tpfngaEi jba0uqap50lV01W98tRJaw QCPzWEGuDRPnTOEcpVhxut7poH7 wIi8+GQIadLN9fFM3oG3pGVWdLq X9HKuuT649DdUhaXGlSdgd g7jmn7cuxSx3UmQ2JTNdexAovPd aRXX2l0HcIo64F84vCBtpLTIoOO OwXVIoUWAjoZwqdg1vnS3l Ii8+NWWhbMF7rCJ1jX3gBoEqViC 8VIveU717GtUhkIYbIargB62cH4 JvdXA+AMKxCpb3JUBkyXgy XC9otFFrDRaoEe2sOUP3GzZvWqR cOAlhX1NmFJSplvtpnfrywIT2YG UpJJPwwU35Is0idGwgNVVc oHFByC9dhcwdt8bqndlsIsMlJCD hNVz4BOh0ENWqdBhkKfKvZRN1Wm V8CIB8lUYciL8ukVlxouvv kQ1sV8QkCRVkhfetIc56wF4pZbI mKaU7KNayZwa+CN4GCPGWBXJaLL jSVl4RRCiZZPBUMIoBGV4K AjuOJB01YL00zMVpx0P2rIJ7D9Y xEVXpittoenvzqJM2CLMyNARajC 23cPLhYRpjBi8oi3G2a521 RGErPPXspG22Rb0swBanHDTleHS NpT6ljbvnd7tdwoqzMfQfLGOpZW y9UEl5ZGYltRkyPfJjNCH6 ChR9ZLS5dEDlfX1qkOodrxpypH0 wOyc+MDIvMDkvMjAwNTwvdGQ+PH KpNCF7fXtjQNccTKFcuX2y UTEfV6u1XgXkCsH1NSlcV1BgOPK vussbEh03rY5gKqWnUwU1POsxR1 IoawS7KEHlkFZeFLnoPCY8 X47yg2X0IHPeKSCwSJV0gTX1fV1 hbGlnbjogbGVmdDsgdmVydGljYW hdFSpvP037SUBjpEgdGrF7 HVhzIGNuTJ29IL91bCVkf5Q7tMR 4Q2CoCNOwtexcpxzteHE2KIQtSE WccN72pFLyJLabNk0ry8Z8 x612KVBpITAigD71Fh2gcPccCIH arETZzQ1bocigr1qyvllwGbQyXP VaAWq8LSb6GRWamWchYlKo WCL5PxP7MTO1qPRipZ8qrQblhia quL0pSeu+BfCYUUuMRY00FK80xP Xdq8R6dHC9T1AwEEZmbvig myswwFE1ORBsCHKomC59zLByMSm aBt7bv8K2z695QNSxJUXafQ41Hi 0msDhbJDZthNUNzE9ojawb j6swbhckLoXdXTGvQPd2VQu2QDY ttXckMpXmMUL5KoI9JMG6jIWqiW 0eaLgbblndxG1hGpt+RW1l cntigkH4VB10ON66W5JsBfkefVE ibGU+PHRhYmxlIHdpZHRoPScxMD YnUlNomXkvQV7yHb4sUKUu WFAaoEeowXIiUpGtz1xpRFMkFRm nOT1uqQtfE7CknZI5QCCqa2p1Lm 48A33mP9LjfEW+PGNvbCB3 qWS6hP6gSaHkJiI0TOxhO691YtQ yyUIhZwzqr2zqw6gseKj0WrFxGY JjkoXmyDiwAYV9l5PpKl48 F18jVSthVXCfCTKcCBByBMYjqCs ste7ivC7xJe3+CKQulWQ6tMJ1uS 3cBaSzIeZ9KMpdH403LaRb yHAyEzgiW30eR0VlcCG+PHRyPjx 7JNPcpSnpMH1phIDdQHjoJj0wJY K8UtGzKiNrIYheH7FkZDLo atbvjzahgTT1JCCoYUEmvM82Rj1 cfOsaDi2yZCHpYRT6MEOlnUQxP5 XvcN2hSgYnIRFdGQWhD7Fp tHWiMEenK390SFesXzG0APDtdiX zI0HdCSBrtYvzCjL6a6P8Cw4DuV rrkOIfHA8tHaRqABi2O3Oe Oyk3QKEdnIlmOL5boBPzNRefWg9 ilJskoLaiWS4vAKEffyfex778Zu Ira9etQOHyjXXcCRbcXQH6 L51ri6E0SJQmQOOmTWK3aCH5iM0 hbGlnbjogbGVmdDsgdmVydGljYW xzCVztW164LWZxcLkeRuRR Giz1Z0ExQcv7VNYhhVhhZF9fyNY mBElyGl8rpWmkcIkcKA8qFBTamv zqg492HxWoc2gzCBHwlIKu UXqnQUQ2D51ll6G1CLDzWOUaMYT 5wWI7eT3rtRqncojzgOEgkOxwpm PciFhjIKybTWnfS876DSFc tFzsUn1YYrh0B4DcLts3DKLqtJg hFJ0zsGQxBWglOg0yjPqmgEikUE 6rGPNjsedug058KgFiu7wb SSUtdXRrVBbgAPG9F56iv6O6GSR nTULkSHL9zIV5tA4swNasfiprvS VmdDsgdmVydGljYWwtYWxp B218NZGsaDfwVlOwhODqVfkpsXU +LN68fe65Z6BiSfifTvr5BLJxZI G1yLR4qZ2uMQKmGMcws6O6 bGU (more content not included)... Normal [facility] C Urineon 01-08-2023 C Urine Urine Culture ordere d as a result of parameters set on specific urine dip and urine microsopic results. Mixed skin, or urogenital mar. Clinically insignificant Normal [facility] Comment on above: Performed By: #### 5 [id number], [id number], [id number], [id number] ####[facility] (DEFAULT)[address] [place] [address] .Auto Diff 01-06-2023 Auto [place] % 9 % Normal 05-[address] [facility] Comment on above: Performed By: #### 1 [id number], 5700808, 5904703598, 7019266415, 4760978827, [id number] ####[facility] (DEFAULT)[address] [place] [address] 12999 Baso Abs# 0.1 x10 Normal 0.0-0.[address] [facility] Comment on above: Performed By: #### 1 [id number], 5890403, 3353270349, 4461812891, 5531958942, [id number] ####[facility] (DEFAULT)[address] [place] [address] 22274 Basophils/100 WBC (Bld) 1.0 % Normal 0.2-2.[address] [facility] Comment on above: Performed By: #### 1 9278646, 2321382, 7947584229, 4885823013, 3416808801, [id number] ####[facility] (DEFAULT)[address] [place] [address] 84468 Eos Abs# 0.1 x10 Normal 0.0-0.[address] [facility] Comment on above: Performed By: #### 1 0779916, 7398301, 9098387665, 5411632509, 4146086577, 5560539227 ####[facility] (DEFAULT)[address] [place] [address] 90135 Eosinophils/100 WBC (Bld) 2.6 % Normal 0.9-4.[address] [facility] Comment on above: Performed By: #### 1 8471501, 1280685, 3318957651, 1177575489, 6863253725, 9295315076 ####[facility] (DEFAULT)[address] [place] [address] 52024 Lymph Abs# 2.5 x10 Normal 1.3-2.[address] [facility] Comment on above: Performed By: #### 1 7896126, 8048485, 8805928010, 4248923633, 0666162735, [id number] ####[facility] (DEFAULT)[address] [place] [address] 18678 Lymphocytes/100 WBC (Bld) 44 % Normal 14-[address] [facility] Comment on above: Performed By: #### 1 5524774, 3616028, 5819216116, 5632680106, 6964832868, 1736586901 ####[facility] (DEFAULT)[address] [place] [address] [place] Abs# 0.5 x10 Normal 0.0-0.[address] [facility] Comment on above: Performed By: #### 1 6072634, 9881638, 6002273228, 4641604451, 0650404560, [id number] ####[facility] (DEFAULT)[address] [place] [address] Neut Abs# 2.5 x10 Normal 1.5-9.[address] [facility] Comment on above: Performed By: #### 1 6926478, 9747078, 6748605577, 4814254969, 1070271197, 9868070600 ####[facility] (DEFAULT)[address] [place] [address] Neutrophils/100 WBC (Bld) 44 % Normal 44-[address] [facility] Comment on above: Performed By: #### 1 1971899, 8942083, 7426627014, 2079856333, 7581337023, 9810314110 ####[facility] (DEFAULT)[address] [place] [address] CBC w/ Auto Diffon 3 Erythrocyte distribution width (RBC) [Ratio] 15.2 % High 11.5-15.[address] [facility] Comment on above: Performed By: #### 1 9490650, 1928166, 6859315381, 7309628516, 9432706536, 6837060104 ####[facility] (DEFAULT)[address] [place] [address] Hematocrit (Bld) [Volume fraction] 39.4 % Normal 33.7-40.[address] [facility] Comment on above: Performed By: #### 1 1349610, 4414406, 7562517426, 5940293984, 3274792364, 1346722407 ####[facility] (DEFAULT)[address] [place] [address] Hemoglobin (Bld) [Mass/Vol] 13.0 g/dL Normal 11.3-15.[address] [facility] Comment on above: Performed By: #### 1 1367169, 7495210, 1858378415, 6473288645, 2467374048, 3311613471 ####[facility] (DEFAULT)[address] [place] [address] Man Diff? Auto Invalid Interpretation Code [facility] Comment on above: Performed By: #### 1 3111907, 5516400, 3367756323, 7471748795, 9820928664, 7634560722 ####[facility] (DEFAULT)[address] [place] [address] 74103 MCH (RBC) [Entitic mass] 26 pg Normal 24-[address] [facility] Comment on above: Performed By: #### 1 5252184, 6067817, 6022526474, 1388892674, 4348114833, 1711451631 ####[facility] (DEFAULT)[address] [place] [address] MCHC (RBC) [Mass/Vol] 33 g/dL Normal 26-[address] [facility] Comment on above: Performed By: #### 1 2240320, 8512967, 1231098630, 4515063128, 6034978045, 8642017788 ####[facility] (DEFAULT)[address] [place] [address] 82749 MCV (RBC) [Entitic vol] 78 fL Low 81-[address] [facility] Comment on above: Performed By: #### 1 5797387, 5560684, 5175933659, 4878038046, 5262446844, 2614646217 ####[facility] (DEFAULT)[address] [place] [address] 86002 Platelet 267 x10 Normal 138-[address] [facility] Comment on above: Performed By: #### 1 5902832, 7383536, 4883255653, 4353046322, 3823373777, 9136174236 ####[facility] (DEFAULT)[address] [place] [address] 13756 Platelet mean volume (Bld) [Entitic vol] 9.1 fL Normal 6.3-10.[address] [facility] Comment on above: Performed By: #### 1 3364249, 8155435, 1715311544, 0644282824, 9486541612, 3171721042 ####[facility] (DEFAULT)[address] [place] [address] 98570 RBC 5.05 x10 Normal 3.70-5.[address] [facility] Comment on above: Performed By: #### 1 8055012, 7166713, 9570060719, 4141859567, 3014917804, 9331811942 ####[facility] (DEFAULT)[address] [place] [address] 14453 WBC 5.7 x10 Normal 3.5-10.[address] [facility] Comment on above: Performed By: #### 1 0656082, 9858012, 2619746285, 3744705665, 3018094716, 5303016711 ####[facility] (DEFAULT)[address] [place] [address] 93582 CMP Standardon 01-06-2023 eGFR Non AA >60 Invalid Interpretation Code [facility] Comment on above: Performed By: #### 1 5743567, 7006040, 0433755708, 9322162813, 2813447167, 0997996456 ####[facility] (DEFAULT)[address] [place] [address] 86056 eGFR AA >60 Invalid Interpretation Code [facility] Comment on above: Performed By: #### 1 3499294, 1901745, 9832106477, 6121555454, 4852858125, 3637215484 ####[facility] (DEFAULT)[address] [place] [address] 13962 Albumin [Mass/Vol] 4.5 g/dL Normal 3.5-5.0 [facility] Comment on above: Performed By: #### 1 4927066, 4529551, 0174115837, 6648682096, 5000005834, 6396259076 ####[facility] (DEFAULT)[address] [place] [address] 66568 Albumin/Globulin [Mass ratio] 1.3 {ratio} Low 1.4-2.[address] [facility] Comment on above: Performed By: #### 1 3708269, 6646895, 6340638900, 0093667796, 6272462919, 6143624220 ####[facility] (DEFAULT)[address] [place] [address] 52309 Alk Phos 66 IU/L Normal 32-[address] [facility] Comment on above: Performed By: #### 1 8885005, 5964397, 9048562035, 6070820918, 1788020210, 2521268975 ####[facility] (DEFAULT)[address] [place] [address] 81493 ALT [Catalytic activity/Vol] 21.0 U/L Normal 8.0-29.[address] [facility] Comment on above: Performed By: #### 1 8688228, 7615742, 7159109900, 0240208520, 6641677338, 1506043045 ####[facility] (DEFAULT)[address] [place] [address] 61640 Anion gap [Moles/Vol] 9.5 mmol/L Normal 5.0-19.[address] [facility] Comment on above: Performed By: #### 1 4018472, 2031068, 0463183013, 6962112273, 8682081925, 2109052918 ####[facility] (DEFAULT)[address] [place] [address] 25701 AST [Catalytic activity/Vol] 20 U/L Normal 14-[address] [facility] Comment on above: Performed By: #### 1 5608274, 7001978, 3975489857, 7524557894, 5354775807, 8803933554 ####[facility] (DEFAULT)[address] [place] [address] 29625 Bili Total 0.4 mg/dL Normal 0.0-2.[address] [facility] Comment on above: Performed By: #### 1 0057019, 9721298, 0666081787, 9464863857, 1269910962, 2643506390 ####[facility] (DEFAULT)[address] [place] [address] 55031 Calcium [Mass/Vol] 9.0 mg/dL Normal 8.9-10.3 [facility] Comment on above: Performed By: #### 1 5900271, 9135159, 2378446358, [id number], [id number], [id number] ####[facility] (DEFAULT)[address] [place] [address] 37799 Chloride [Moles/Vol] 106 mmol/L Normal 101-[address] [facility] Comment on above: Performed By: #### 1 [id number], 4433133, [id number], [id number], [id number], [id number] ####[facility] (DEFAULT)[address] [place] [address] 15427 CO2 [Moles/Vol] 23 mmol/L Normal 21-[address] [facility] Comment on above: Performed By: #### 1 3929685, 8432748, [id number], [id number], [id number], [id number] ####[facility] (DEFAULT)[address] [place] [address] 43196 Creatinine [Mass/Vol] 0.73 mg/dL Normal 0.30-1.[address] [facility] Comment on above: Performed By: #### 1 [id number], 1160801, [id number], [id number], [id number], [id number] ####[facility] (DEFAULT)[address] [place] [address] 80821 Globulin (S) [Mass/Vol] 3.3 g/dL Normal 1.5-4.[address] [facility] Comment on above: Performed By: #### 1 8753358, 3427503, [id number], 4175100919, [id number], [id number] ####[facility] (DEFAULT)[address] [place] [address] 60218 Glucose [Mass/Vol] 95.0 mg/dL Normal 56.0-144.0 [facility] Comment on above: Performed By: #### 1 1105986, 0369162, [id number], [id number], [id number], [id number] ####[facility] (DEFAULT)[address] [place] [address] 77389 Osmolality 269 mOsm/L Invalid Interpretation Code [facility] Comment on above: Performed By: #### 1 9473238, 3175396, [id number], [id number], [id number], [id number] ####[facility] (DEFAULT)[address] [place] [address] 58873 Potassium [Moles/Vol] 3.5 mmol/L Low 3.6-5.[address] [facility] Comment on above: Performed By: #### 1 3900195, 0376198, [id number], 3752254941, [id number], [id number] ####[facility] (DEFAULT)[address] [place] [address] 41821 Protein [Mass/Vol] 7.8 g/dL Normal 6.1-8.0 [facility] Comment on above: Performed By: #### 1 7215918, 0416527, 4558586252, 1968439154, [id number], [id number] ####[facility] (DEFAULT)[address] [place] [address] 58704 Sodium [Moles/Vol] 135.0 mmol/L Low 136.0-144.0 [facility] Comment on above: Performed By: #### 1 5869022, 3602772, 3829468652, 5124780973, 3923845939, [id number] ####[facility] (DEFAULT)[address] [place] [address] 68775 Urea nitrogen [Mass/Vol] 10 mg/dL Normal 8-[address] [facility] Comment on above: Performed By: #### 1 8926989, 7558395, 2184023544, [id number], 4122093950, [id number] ####[facility] (DEFAULT)[address] [place] [address] 34818 Urea nitrogen/Creatinin e [Mass ratio] 13.6 mg/mg Normal 4.6-16.[address] [facility] Comment on above: Performed By: #### 1 7412690, 8980257, [id number], 1127013674, [id number], [id number] ####[facility] (DEFAULT)[address] [place] [address] 44581 ED Clinical Summaryon 2022 ED Clinical [address] [facility] - Emergency Department [address] [place] [address] 86834 ED Clinical Summary PERSON INFORMATION Name: ROLDANPEGGYSHEYLA FALK Age: 17 Years Sex: FEMALE : 2005 MRN: Acct#: Visit Reason: Abdominal pain; ABD PAIN Arrival: 01/06/2023 19:25:17 Discharge: 01/06/2023 20:52:00 LOS: 000 01:27 Check In: 01/06/2023 19:25:17 Checkout:01/06/2023 20:52:00 Address: [address] [place] [address] PCP: KEVIN STOKES PROVIDER INFORMATION Provider Role [...] Home PATIENT EDUCATION INFORMATION Instructions: Constipation, Adult, Uqoi-ui-Lirw; Abdominal Pain, Adult, Okhb-vh-Ngwj; Abdominal Bloating Follow-Up: With: Address: When: KEVIN STOKES [address] [place] [address] Within 3 to 5 days DIAGNOSIS: 1:Generalized abdominal pain; 2:Constipation Patient Understands: Yes - Patient/family/caregiver verbalizes understanding of instructions given Comment: Normal [facility] ED Patient Summaryon 023 ED Patient Summary [facility] - Emergency Department [address] [place] [address] PATIENT DISCHARGE INSTRUCTIONS Patient Information Name: SHEYLA LEA Age: 17 Years Date of : 2005 Reason For Visit: Abdominal pain; ABD PAIN Arrival Time: 01/06/2023 19:25:17 Primary Care Physician: KEVIN STOKES Attending Physician: Ean Solorzano MD Comment: Visit Diagnosis: Diagnoses This Visit Abdominal pain ([id number]) Constipation (K59.00) Generalized abdominal pain (R10.84) The Pharmacy at [facility] is open Wednesday through Wednesday from [...] alcohol and/or drug addiction problems; contact the [facility] 07/12 Crisis Hotline -Text 6IYRN js [id number]. If you received any narcotics, sedation, or [...] legal documents With: Address: When: KEVIN STOKES [address] [place], [place] [id number] Within 3 to 5 days Medication Information: The exam and treatment you received today in the [facility] Emergency Department were for an urgent problem and are not intended as complete care. It is important for you to follow up with a doctor, nurse practitioner, or physician?s medical receptionist medical assistant for ongoing care. If your symptoms [...] so we can reach you if necessary. [facility] Emergency Department has provided you with a complete list of medications post discharge. Please inform your opal miner/provider of your visit and for further instruction [...] in fat and sugar, such as: ? Frisian fries. ? Hamburgers. ? Cookies. ? Candy. ? Soda. ? Drink enough fluid to keep your pee (urine) pale yellow. General instructions ? Exercise regularly or as told by your doctor. Try to do 150 minutes of exercise each week. ? Go to the restroom when you feel like you need to poop. Do not hold it in. ? Take qhlo-krw-maeszox and prescription medicines only as told by your doctor. These include any fiber supplements. ? When you poop: ? Do deep breathing while relaxing your lower belly (abdomen). ? Relax your pelvic floor. The pe (more content not included)... Normal [facility] Extra Greenon 01-06-2023 Tube Collected Yes Invalid Interpretation Code [facility] Comment on above: Performed By: #### 1 [id number], 4100693, [id number], [id number], [id number], [id number] ####[facility] (DEFAULT)[address] [place] [address] 44262 Test Urine 1on U Preg Negative [facility] Comment on above: Performed By: #### 5 6628139, [id number], 990471834, [id number] ####[facility] (DEFAULT)[address] [place] [address] 70005 U Preg Internal Control Pass [facility] Comment on above: Performed By: #### 5 2514344, [id number], [id number], [id number] ####[facility] (DEFAULT)[address] [place] [address] 20767 UA Vrhgf5yh 01-06-2023 UA Bacteria Trace [facility] Comment on above: Order Comment: Urina lysis Microscopic order added on by [employer] Expert Rules system. Performed By: #### 5 9807514, [id number], 214905194, [id number] ####[facility] (DEFAULT)[address] [place] [address] 87386 UA RBC 3-5 [facility] Comment on above: Order Comment: Urina lysis Microscopic order added on by [employer] Expert Rules system. Performed By: #### 5 5557239, [id number], [id number], [id number] ####[facility] (DEFAULT)[address] [place] [address] 42780 UA Squam Epi Few [facility] Comment on above: Order Comment: Urina lysis Microscopic order added on by [employer] Expert Rules system. Performed By: #### 5 0742812, [id number], [id number], [id number] ####[facility] (DEFAULT)[address] [place] [address] 40795 UA WBC 15-20 [facility] Comment on above: Order Comment: Urina lysis Microscopic order added on by [employer] Expert Rules system. Performed By: #### 5 6775737, [id number], [id number], [id number] ####[facility] (DEFAULT)[address] [place], [place] [address] UA w Culture if Ind Standard on 01-06-2023 Breakpoint UA [facility] Comment on above: Performed By: #### 5 5954593, [id number], [id number], [id number] ####[facility] (DEFAULT)[address] [place] [address] Color (U) Yellow [facility] Comment on above: Performed By: #### 5 3769553, [id number], [id number], [id number] ####[facility] (DEFAULT)[address] [place] [address] Culture? Indicated Invalid Interpretation Code [facility] Comment on above: Result Comment: Resu lt created by rule GL_MAGR_ADD_UA_CULT Performed By: #### 5 [id number], [id number], [id number], [id number] ####[facility] (DEFAULT)[address] [place] [address] Glucose (U) [Mass/Vol] Negative [facility] Comment on above: Performed By: #### 5 0980340, [id number], [id number], [id number] ####[facility] (DEFAULT)[address] [place] [address] Ketones Ql (U) Negative [facility] Comment on above: Performed By: #### 5 0791071, [id number], 139730252, [id number] ####[facility] (DEFAULT)[address] [place] [address] Micro? Indicated Invalid Interpretation Code [facility] Comment on above: Result Comment: Resu lt created by rule GL_MAGR_ADD_UA_MICRO Result created by rule GL_MAGR_ADD_UA_MICRO Performed By: #### 5 9708593, [id number], 916663677, [id number] ####[facility] (DEFAULT)[address] [place] [address] UA Bilirubin Negative [facility] Comment on above: Performed By: #### 5 5457187, 7135403913, 590250740, [id number] ####[facility] (DEFAULT)[address] [place] [address] 53583 UA Blood Negative Normal NEGATIVE [facility] Comment on above: Performed By: #### 5 2596893, [id number], [id number], [id number] ####[facility] (DEFAULT)[address] [place] [address] 63635 UA Clarity CLEAR Normal CLEAR [facility] Comment on above: Performed By: #### 5 3532204, [id number], 534781677, [id number] ####[facility] (DEFAULT)[address] [place] [address] 85481 UA Leuk Est SMALL Abnormal NEGATIVE [facility] Comment on above: Performed By: #### 5 4013554, [id number], [id number], [id number] ####[facility] (DEFAULT)[address] [place] [address] 46549 UA Nitrite Negative Normal NEGATIVE [facility] Comment on above: Performed By: #### 5 3465915, 8247104673, 737728395, 3327579 ####[facility] (DEFAULT)[address] [place] [address] 52806 UA pH 7.5 Normal 5-[address] [facility] Comment on above: Performed By: #### 5 2372883, [id number], 814015886, 5557835 ####[facility] (DEFAULT)[address] [place] [address] 22008 UA Protein Negative Normal NEGATIVE [facility] Comment on above: Performed By: #### 5 3601457, [id number], [id number], 7666850 ####[facility] (DEFAULT)[address] [place] [address] 80532 UA Spec Grav 1.010 Normal 1.001-1.[address] [facility] Comment on above: Performed By: #### 5 8326368, 5057808844, 245130035, [id number] ####[facility] (DEFAULT)[address] [place] [address] 45751 UA Urobilinogen 0.2 mg/dL Normal 0.2-1.[address] [facility] Comment on above: Performed By: #### 5 9298138, [id number], 167797836, [id number] ####[facility] (DEFAULT)[address] [place] [address] Urine Source Clean Catch [facility] Comment on above: Performed By: #### 5 9422141, [id number], [id number], [id number] ####[facility] (DEFAULT)[address] [place] [address] XR Abdomen 2 Viewson 023 XR Abdomen [...] Maciel MD 01/06/23 9:29 pm Technologist: ELFEGO [facility] Coding Summaryon 12-21-2022 Coding Summary HTMLBase 64 PxfhpfvpUXb9uHl+PGhlYWQ+PE1 HIUTiV05boCJsqW2cU4CUWVbXGd htTXACWHpPQbPdlwOhIQ1geCBxS XJu IC8+SI7jVRSzEmmsmWVtl7O4pSR 2K09uer8oMBpfrAL4EFKgHyJoyr nka1vrcMz5QWgpJpjvRnEl JRPadB08XFU7aP51Eu45jMGgkVW am1hnxWp2ZaJqSJApRVB1aVrpFK uqf7CaPLQsO60mzQCal7Z3 TIKzoKyjuMWeKnUwpBW5bY0aBPj zrddop8ftqzsjWsy5ud23pGYhk8 E2zLX2H1EvofM6PWRqtWFz IixnwZNJnL4rrpdml8flthidFwC lYSAcCEv6FNc5FIBzjXchMoWqOJ 14QQU5OCZuwcKoG4WtJFIr dWdxIxX0i5W9Tr0GV7SHScgbK2I NTUFSWTwvdGQ+FJ02cl43N3JwMx ujAjd6IZJzSUJ7uCR7wN4a PKXfIKtec9U1fSF2O4OyzoCkxl8 qy0bdUVMjKIuvY16neAGwu5J1YV TisUX9PUAeqRubWnYvqN89 Oyc+FUOwkClmy6ZcEbmax2dse7o efSn7RjghOTZhnzKjbJhzPDF3j2 WkCt2uGLUjxGM6dGG1wB3t QfVeJuG2KWuaS732BrVldMFuKqr fN18pA6VyvDB+WXZeFci6IJQmvF yaPQ3mI7VnBZQxsezjlBIx sXjtSG8oGEMtbesbKOBmjA8wMDH pZ4n9WnArLdH4ZSynC6JoLLZkas zxOi43vP6fDmTcTtW7HZjg O5NhszN0ECXkrIHzNEffXKP9C87 lm7T4PRVrVESsUFW8fOO4pW7ovM lnbjogbGVmdDsgdmVydGlj MHybBExlQ839WHFwgHzyTzRkISa uZyBEYXRlOiAgMDgvMDcvMjAyMz wvdGQ+TJQjRTO0gYpoYXAk cYFbMPktYi0koOtrnSmgRZ4tHLI srwrxWPRvmC9aORKxvRZofUugZF 3pQNGlqxhjk330EaEyJSA1 VCWvgNIfN5YqtF1mDuPoUPCnRKG nP2RriFXeYLytI573ZQvvLwV9SI KnkkEfQ6PtIHHtvNfyEpW0 r1V7Cl0Et8VvupneS0YbxDHbWqV zIvmmVYr2Y2ThPqaxfBC+PC90YW QeGM34NOo6FVG0pNzuJBxj COSjB6UlrC9aAxUsXRWgMJFhTbq +PHRhYmxlIHdpZHRoPScxMDAlJy LrhKspBY6yIc3gLDMxTBQc cPbvoFLuIrErs1kfKSLpHPduZD2 eoTquO7DhjBY9SNFbn1d8Di16R0 4zV5BbeEU+JZZqvGZ6yEU4 pZ5gGuRkVxS4ZFnpN069WfEnlVE cQsjhn8hrg1vujRe4UbW4MFTpff KndIrxSTY3n1OpFg72D03f IHdpZHRoPSIxNSUiIHZhbGlnbj0 pqJ5yRl2+YKBqvMN5iFW1rB8bPf TkAiY0IBpvK809UvNaxIAl Nfopm0lgn9cphBj8EvWbJKEdanH mmWlmWXW9k9EyHx41S4DvxIgqb3 BnDck5mp65qYFvp1E4uQY0 Q6YzGWGukrglvKXlyOzjGI1vHYE auctjKSLccD0wGDCkG0v0TcHoLy L6LZivH4HvmdC7ETOqxMSe LJDjoFHAmQ1prkpxw7kvilklBnB jPMAkXQi7MDc1NELejWonHwBlOD D0JgK5MPH9sIEygT2gmZfn jqaknJ5fRxk+KBE6vBYvmTBFTG3 lOjwvdGQ+USAmWSB5wUasSBulBX RmgN0mFHQtP7h2YzOuGdY4 KNifG5FfcpG1QDOozHDfERPtmXJ LzE1qkvvxx9rfuytaXhWeNZXpAV q3HQl1WYYkmTycYtCaVOX6 ZcD9CIV2aHZkwV9ckTlzfkiodB0 wOyc+JvzphSbtRPA8OQp6M8TmQn r4RLNdxIumAF3nsHNfHPbm Yt3umWzewSwsXC3cFWNumnajt22 5XgTig9dnNDKpkNKeQZknRGY2Z5 2up1N0NOZxPHWiPWQ2sJD4 sM0bhHqxoqsluHZsaTinezQouXv yILoqWTnuV574HEYxhRbfEhLyIC g1Z9BfJpd1LOCtwMdmPQ7t zKPzBIehPu3acKeacRxdHJ9wRKQ wqavgf238QbQjw3zvOKSmcRNzNP cfVGS0T41sc5F8ELDeMOGu NQF1bDV7pC9quBbhcehxyKCbpXj jqfIboOufCVswOBncX100OGUkpC fcGjKvqCd4I2QmLdt6VKRe oKzlHF3zmWXxIAdfXs4egPczwNp pSH6kISRbhzase308YxJab3njYF JmzCGnLEpuAHL8Y44sp3Q6 YBYsUKXkPJG2lPT2aI4jmTbzmbu gbGVmdDsgdmVydGljYWwtYWxpZ2 46IHRvcDsnPlBhdGllbnQg MVwwXWk9A5DqZroshRD+XS41KDC dSG22eFFwuAKti9xpmNh8DrUhBA QdTVU0jZslRNqyh3UjYOAu H94dzNCad2N7LXKctLxysVSjZpY gdUL1uP9mWAbaiyfre7wlrdfvLr sig3yrjw24oF10I42lPCoh GBEuLDScKPNzHDAjvZxksn0xcE0 wIi8+ZUXizSF1cLK3wF7ySZUgEs D9LOrlY384AaXudMQzXdpo j2wko4uojIo4HuE9WGKbspWqpWe kFAA6o0UbZf59A70wVComVRTjDH BrMSTiNLNbiEvxir4jxO8b Ii8+MSIpjBK4nMT2wT9wBwDlKyE 5ZBobL365TyVieIGiLbcvN01bP8 JvdXA+UXGdYop2JKHxhOsl GK6saPDaQOygMg4pCOL0DaSfMeL qUXphN7IiCMKnjnpaqrglmYI4EA OiMABhlO71Pa5ylPhjTPHw mPZJpA5ijaqxu2mwscmaSkNuFUD rHVl3GYs1ZVHjlOulIhFfMVR0Yd P7QVS9zTClhS3guNnefflw bG2jX3SaWJOfumwdHn09eW9uXxB aCuM2BPjrKjf+KH9OYZZDTCMcQG mPHv2FDWfAULLQVYrHCX6C WlzYQA34AO26nJAzh5J3iJP1A5K jUBDgiukskpbfiPN6OJFdIZZwiV 64vVJiIUrrHk0mj9Z1u996 MQGkXOIowN21At6vnIeyZTJsrGA NtG1fxtksc4npoqydPpToLAJmHH j6DNt4VJWkxQlbXvZlUJS8 JdG9SCD9vUConQ7qoQvextuuwU6 wOyc+MDIvMDkvMjAwNTwvdGQ+PH GtKSZ2wZwwSFnuBCQkhL6p JCXcJ4j2UkSiHuX1VFweD5WmAYF ddceaCy82kN0mBgDwHsB9ZCexZ9 JkniN5JTVcnQThFEbsOFE8 O44yc3K4YLPdGJSlDPT7uMV2eK8 hbGlnbjogbGVmdDsgdmVydGljYW snROrmX451PWSeuDviJgB0 DCfdKRVeST76LN89vIGel5C7yKR 3Q0ByOUBjizwdlcfdxVD8CFKuNK IviL28pWVeZXazNw9qr5J8 k537ZDGtRSJqaG82Pr0sfVlyFEH ppHLEpE6emjswb6xbuvlxCrGuBM YfWEv4UHn0TFVucLxxDnPa VVI1OkR6WQX1hFNyeE0vuKasapa moC3oOpf+XnDRVYeZZH43RR21hE Dab1W3dQD3Q9VuBRFdklme pyupzCA5CDNyTBEzzA74sPSoMWd aGx9zb9E3k230YVHjGJAxpV20Vg 8brAleOELhfATJnE4uqaup y9swquraMeElQXSxIDh0IGv0QIW psIfcKgRiIML6YbX8RRZ4iGHuoS 4zvLtsejuyaA1gWzs+T1A8 I5HtKtwatNM+PF33JBUaYK68vJR lzKFek1pyaTo7CdMoSVTsYXJ6wO orLSykc9YnYLArF60jmTGt v7A7NXYxgZuamBLmWlSviXX9dR9 wSQelzqjun6ubflpeChqzj0hqoo 48zZ94W23wDBxsMYCrQUFj ENImYLCheFjqmr8ppQ7bGl4+PGN guIA0xUX9eX9iExIrZnH8WLjzG1 09QsHvpSXfVjunj5sod3fv gHs9GnZrUCAxlrXomMfqXEQ0x6U dPx25O59dHGdeTTWlPEQpQOCsPF NfbKxggd5uaG8qCo4+PC9j p3tuwv70tZ83wNJ+HYWrLLD4rPl eXZexMYPkmU6tCCohOnT3PCSqCy AqgP99jVTzDJdqWg3qhHao zHcjSV9eUBWxcusts374OcCyp7x tHLUxsYYySXenMHT0J47zl6R1IH YgRQAhUEG4dSP4mN1drSlx bjogbGVmdDsgdmVydGljYWwtYWx hJ246ESUulBxmYwAymPXxS1cnmv FVSA9zLdrytMJ+PHRkIHN0 hElpUZwbGBVppR9bOTZyR6u5QxJ eQvT0ATumI1TzetQ4NRWvzFZzUI PnyEMXdT9gpfoaf8uiaeqg ByKuHCRjFLp6OEv0YXNxfFcrDjF pQCW3KwQ2NKK0nXYcrX2szLpchd fztX1cAgk+RklOOjwvdGQ+ MFCkPLS6yFbwDLoqIPRytL9lIZS lQ0o1HiBrVrI2ZIqoG0RpcrA7VL SzsIBsNPDcgVYIdV0iaxmr i7arfchsXtFgLFUeUBl4IUm5QIE fsEscLxXfCJE8WmA7ATS4jNTuuK 9qdJgbioqjaW9pOuj+TVJO OjwvdGQ+FWLhHBF7zQmrUNjpSOS meM2lBITdL7n7SpIkHaS6IXjiD1 OidyN3IOYfyTNzKXCwfKTI sI2ylcpsi6mesjqcLgUzUCDqTXy 4UBf6BUUygRqhPbLcJBP6MbL7LW R0jWKtjH6bhLzynbwhjV2d Oyc+DOB3OAR0BW03CZ51K6NnGgk vdGFibGU+PHRhYmxlIHdpZHRoPS sqIAXqUiQxzHqhMQ4nNl8v ZGV (more content not included)... Normal [facility] ED Clinical Summaryon 2022 ED Clinical Summary [facility] ? Urgent Care [address] [place], [place] [id number] Clinical Summary PERSON INFORMATION Name: SHEYLA LEA Age: 17 Years Sex: FEMALE : 2005 MRN: Acct#: Visit Reason: UC - Ear Pain; RT EAR PAIN Arrival: 12/14/2022 18:12:52 Discharge: 12/14/2022 18:47:00 LOS: 000 00:35 Check In: 12/14/2022 18:12:52 Checkout: 12/14/2022 18:47:00 Address: [address] [place] [address] PCP: KEVIN STOKES PROVIDER INFORMATION Provider Role [...] Adult Follow-Up: With: Address: When: KEVIN STOKES [address] [place] [address] [phone] DIAGNOSIS: 1:Right otitis media with effusion; 2:Left otitis media Patient Understands: Yes - Patient/family/caregiver verbalizes understanding of instructions given Comment: Normal [facility] ED Patient Summaryon 023 ED Patient Summary [facility] ? Urgent Care [address] [place], [place] [id number] PATIENT DISCHARGE INSTRUCTIONS Patient Information Name: SHEYLA LEA Age: 17 Years Date of : 2005 Reason For Visit: UC - Ear Pain; RT EAR PAIN Arrival Time: 12/14/2022 18:12:52 Primary Care Physician: KEVIN STOKES Attending Physician: Chetna Rodriguez PA-C Comment: Patient Education With: Address: When: KEVIN STOKES [address] [place] [address] [phone] Otitis Media With Effusion, Adult Otitis media [...] weeks. Home care treatment may include: ? Uglr-xos-iqyecyf pain relievers. ? A warm, moist cloth placed over the ear. Severe cases may require a procedure to insert tubes in the ears (tympanostomy tubes) to drain the fluid. Follow these instructions at home: ? Take lfie-vym-vtzfygg and prescription medicines only as told by [...] provider. Document Revised: 08/28/2021 Document Reviewed: 08/28/2021 [facility] Patient Education ? 2022 [employer]. Antibiotic Medicine, Adult Antibiotic medicines are used to treat infections caused by bacteria, (more content not included)... [facility] 11-13-2022 [facility] Telephone (ENDOMN) SHEYLA LEA ([id number]) 3 F Date Time Provider Department 11/13/22 [...] Encounter Status:Closed by BRAXTON LAMB on 11/13/22 [facility] Coding Summaryon 10-30-2022 Coding Summary HTMLBase 64 UlhnsxncLAa0eZn+PGhlYWQ+PE1 GEKUqJ49nsLMpzT9oS7BXNFqTOr twKQANKStZMkApylIfTK7rtUEkP XJu IC8+HM2hLHKdDqahlJCmh3U3iSH 7A02psa9vGGsuiRD2PCQpQxEskf xls1jqeEr4SLytYshjQkBh ZWWoeX91YJU3mW89Jk86xCRrlYC wt7cwnDf1CsJlDZHoTFJ1lTooFG ydj0QbTOQrN56msQIbd8E0 HTLuzQajxEIgXdQxzXJ2xH1hQYn dxwbdx8iflvuqXns3pk33fVOxf3 I3pHP2N2AphdA0WDWplMOs DwklnPJXtR3cuqvwj4qebgsjZzA pWAHaBRz8WXk6HMKzsCfyYsHpIR 51QFE5UCIdxoYoU3VdCRGw oTfyIrM4k6S9Jj3ML4BOYhzbU5D NTUFSWTwvdGQ+RU41bj44Z4KjYu gvVin0SNFgSNK5vCQ6dX3h KWBkNTvya3G1jIM2K5BjfvOfij0 mx7orMIUxLHqyW66evZOsj0G2PM OgsHY2XIMyzVaxWqJvgW97 Oyc+RISypHsmw7MtKjada6qdr8x iaTq8RalsTVUlnvYpoLpcACM9y4 SmXk7wLEJptPB6pLE2aA2i EwCvXyO9QRnyF661YeTcgIZvOdi sL71kW8RikTB+PYLxShs8UTDeiR vlTO3aX3UmLTUcyxwwyJFs dXvvFI3vKVHxurjpXZTtcQ8bQNN tS9l3PlOlTgK5BBxkX8OiGEDkpo msHa39gI4oMxSaNeK7TBja Y7PxevG6SPAcdLWxUSlmIYS5Z42 xw7F9EBNtEVWmSXY5kDQ6eX4ezK lnbjogbGVmdDsgdmVydGlj JFlqIRqkM520YXHjnXnaEmNhNZx uZyBEYXRlOiAgMDYvMTYvMjAyMz wvdGQ+MOPjMGU4fSrpNVJs sULcLYrwUw3rsEclrXwlFQ2vNLM mfggoJSHlaP8vUNAbcYYuxSplMV 8iVBDhstfot728VcTuBHN8 EMEitWOsA4XepI9lTaAtKNAmVFS mN7OvrNHwYIrsZ527GHsxKwN1CK MlquSwD8LqPBVnxXsmYaH6 h4A5An2Ml3ZguwdoX3VsmFWrAoR kSvcgNCd4L2JbWlvtmTO+PC90YW HjII66OTi4KEV6jCopRVkw DBEmL5BdnA0dWjOqXEAhJSPbRjc +PHRhYmxlIHdpZHRoPScxMDAlJy GuyPyxSI9kHt8sRRBqYBOj zCfbgIVdKkCrl2ikJGDjLMhkUR5 clKkhC8VweUG8WEXpl7f7Zt00Q9 9uG7EhrHV+DEXtlEX0aYT3 iB9eLdKhMsH8LWmnS385CqZpeQJ dTojtv5wxq0yyyQw5SpC7WUAkgr WhvZqzMWS0g3VoDo97I46a IHdpZHRoPSIxNSUiIHZhbGlnbj0 laM8jKv2+UIAhxAG3lRI5kH0yKu WdYmO8IEpmC723LfKajKDh Debzw9ulg6cykGc5DjHySOFzxiT sdBjtOCM9d9GgBm23X0OivZclw8 EiBcu7jj06gDIbh7U2cTI5 U0ZbRBQbxnetiRZbnKffKG2mOQD ylwhrHGNjhW3yKDBgK5t5BtUcUr Q8SSheR2KjrxV7UCNihJOz ZGNddYDVlP2mcszzd4cgvbbtEwI zOLCtRPm3FJc2INQuqKcuTjHcYW F6YyI1NWD9mTOnkI2itYof wtdugR1zLzt+QDM6nKOuzRPHOI6 lOjwvdGQ+GQXlCRS7yDumPPrkYV HynI0vTZLtV2o2KmJwCfN9 SToyF7DaypH6DAIlqNPiZCMvgFI HlH0wzsufd4ivvwlzRuHzRIZoTT q8QUs2DDIsrHnyLlTdZJU6 AvJ2PHE7kGDudO2bcLiaomkazG0 wOyc+SadudTbiDFJ5JKi9I7HcCo n3FKEixNqjVN0ubJFeMQkj Zj2lxXutiIcvNA6sUOEyjnfxv56 1QxCmd7lbHUNdaQJqMXshUIC3Q1 9wg4N4GTWqEFDnLTF4vRA4 pS8abKjcjtkjgYLvlAdseoQxxYg tJPhhVOddS956DUQmhStvYqIrQO i6B2FsRac2OPMhjTjqTJ1t uLLdNOomEq0cnJyvvLhtBM6dLGQ zyuuum410XrFqr8emAOYruIXuJH ghHWV0M34ul7A2HDUuWXXl NTS4uDJ6nX6gqMtutwtsxDWgaBv glqTjsZabFQobQVrfQ411IFVpmJ pbYeAfaDn3X3KrFqp0BEKe aMbaPR7dwAXjFWytKr9sgLwjwPd xRQ6sYELxcizkc735OjMyu4qfSP HbbXSyXXthLSD7E98qx4Z7 VGXvOPXwIYV2tTO3nC6dqNjunib gbGVmdDsgdmVydGljYWwtYWxpZ2 46IHRvcDsnPlBhdGllbnQg MPbxWTu1V4EvVbvuqDI+YL28PHY qIE66lDNnfPJrs5gouAa9SbWbQJ CdOVJ0oMewNSria6IsOANl S95pdNWtc4H6VQKcyMermZSdJtA heUY8uH5kZIldxqwnn4sjyvlqWt wlc8dsyu64dJ14D41sIHth UMBcGKAbZHBwEICfpSodoq7fvL3 wIi8+VIYyaBJ2fQF0lI2nXJXqDl M8SMvvV171XfJwlPZoQqiv y5tin4hyjNj9AkD4BPWiwoTnqQb iREW9x4JwJb08X61qCEdqQJBsEF RtAZXnEIAhuDpojx7ajX0t Ii8+LHWtqTB8qOY7iE5wWsYtOjM 2BYboR831AiOelHIxZwwtY06wD8 JvdXA+AFVfYjy5YCEetJse QH3hhFWkHWacYo8oYRR1UePsGvX cMHkfF4UnQMMhztgfdtmnkNB1BO CyBWCorW50Op6lsZioKPOr rYXYgW4mjncet3pmmxypFwAgEIB iUGp9WDn9PPCurYjyMgWiTVZ9Jz W5CMS0jWQmoR5jpTmjovcd vB9fJ2JeTXMvigfaYu79nO2kDyB oHrW0ELpiDro+LI8VGNKEPUOdAN fDMy5WHYlXPNSOTPsOVW4E VzqQPB00LO11mFCvp5M4dHZ9M8D pNREkxjwkgpzfxPO8DHGqUXFsuM 84cKVwFVwxQj4fy3T7s114 WKOpJVSrvS03Lr3ciOofNYMpvYB UcK9vrtmnx1ynxmtqWeMpUAKhZN n7KVk8HYClbHuqZtIiCZM1 OvH2QSJ1lMRzfT1ceTeucnofzM4 wOyc+MDIvMDkvMjAwNTwvdGQ+PH OoPJT8yJppJXxrBYRjyP4l TPCxZ6c7HtSnMwO9EZrlW5JnVVM jmwusCb76xL9uPeYwEyB6PGfjC4 OjwiZ8IELybHYzJGtjNFG8 Y48pv0Z7JOXbJMKlYQP1fUW3eK8 hbGlnbjogbGVmdDsgdmVydGljYW gxNCokZ822KOPvnLguXmG2 OXzdSRIdQH29KA17pUElg5S1zWR 1J7XtYCWhdcpedqotzIM2ZDYrZG AynZ45vTLhBHqlRw3jp1A8 j283UNWcHNTqoX75Ho8yvBtaEEM qpPGEvB3znaowe4njusbuKrHhZD RvITc6KGg5NPDfuGyyNgAb SSK1CmO1PIK2pEFswI8owMvmwmf anB3tMzi+GrREAUxMLC70LL08kN Tlw9S0kLJ8N6EaRGVxkdlz afagrFE5JQImLSWbuO53dBRhXOh mKd1vm0K5m823TCJzOMMnjN39Fp 3yzJjtSQAefLTOxO3zcgaq v4isvkuhUhDjZLUbMOd0WDy5SVI nxJkmYqFbDTZ1XeB9ZQB6jQFjaX 3bfVpnlywoyR9fCkj+T1A8 H6QoVnvwvUI+QS64AIFgNK23cLB pzXDcy8bwzAz6FjYcEOIoZVF1zX geOUnjx3UtXSPnA11uyCYm m6F3NUEuwZbnsZPiUtSgyYR7mX3 hPTrktidiq0fpuvshZboww2gtaf 43kQ60E41fNNnaLFMzQBZo VJFuCZOeqAzkkh0moR6kLs4+PGN jxXY1sVU0mZ8tOqYmEiZ7OAvtO0 51SnEclOWnBsryp4miu8rb xNt1KyAeWZBmxeTrzXzuIPU2o3I xUk00Q65mTYfkQRLyGKNgJHLvBP GrpDpoin0emA2rEu1+PC9j b2swfs85fW80tRE+QKItRJU0vLs mCGpvAKVlcG3uECyiYyG0FCVmGo DkrQ32tAXmXUfvYu5kwUdd lBwyGA8vBROufskbb090DyRvr7e wIAZtcZNuIVhbIHI8M39jk4B7AU GsCYTjWQG8hBT2kT8vvWox bjogbGVmdDsgdmVydGljYWwtYWx pB031ICSxbZhvBpScyWPyF2mfdh DMJB7vCrqgvWT+PHRkIHN0 oOgqQWbbZSHbcB0bXKCxI7i5EkP pVrG3JJytG7DhuqX6RNQvbFRuGH VaaCFVmZ3zuznvx1vrzfom QgYiTPYaCAr2GWh1KOTqwLanKgQ oLDV8KbK4EAH7rRNpiR2yyGvojq eyoQ3bGzi+RklOOjwvdGQ+ TFAlHRG9hCydLMkmDENccW1pFEI iQ0e8BsLgXsC0SGokR5UegrN6DO EvcBZtMKRxcZVWdM5vlski j0bkledsZuRjGNNjHQt9LZx9JCF baCkfEnCxZEF4VhX5YXA6oGFepG 7prEjnkkhnvO8wDyv+TVJO OjwvdGQ+EZHnBWG6dUrnVMqfAUM kxW3hKZZnD4e4YcFlDbJ8HBpqP2 QlbsI4KUQswSVlJQRafXKV vB7qgfqsl5qbqmomYvKvMCMfFFg 6TXc1NTMtrKoiVzWnNIM0KqB7YT B7uCKoeU2ydRfepliycC3t Oyc+[id number] vdGFibGU+PHRhYmxlIHdpZHRoPS mpRQKdLtLxwGohJU9nJm7x ZGV (more content not included)... [facility] ED Clinical Summaryon 2022 ED Clinical Summary [facility] ? Urgent Care [address] [place] [id number] Clinical Summary PERSON INFORMATION Name: SHEYLA LEA Age: 17 Years Sex: FEMALE : 2005 MRN: Acct#: Visit Reason: Eye problem; UC - Eye Redness; LT EYE PROBLEM Arrival: 10/27/2022 17:44:34 Discharge: 10/27/2022 18:25:00 LOS: 000 00:41 Check In: 10/27/2022 17:44:34 Checkout: 10/27/2022 18:25:00 Address: [address] [place] [id number] PCP: KEVIN STOKES PROVIDER INFORMATION Provider Role Assigned Unassigned Power Ny ED PA 10/27/2022 17:45:56 Ellen Mac TANK SYSTEMS MAINTAINER Nurse 10/27/2022 17:46:07 VITALS INFORMATION Vital Sign Triage Latest Temperature Tympanic Temperature Temporal Artery Pulse Rate O2 Sat 99 % 99 % Respiratory Rate Blood Pressure /72 mmHg /72 mmHg MEDICAL INFORMATION Medications Given: Allergy Information: No Known Medication Allergies PHYSICIAN DOCUMENTATION DISCHARGE INFORMATION: Discharge Disposition: Home Discharge Location: Home PATIENT EDUCATION INFORMATION Instructions: Corneal Abrasion Follow-Up: With: Address: When: KEVIN STOKES [address] [place] [address] Business (1) Within 3 to 5 days [...] rub eyes. Please follow up with your green marketing specialist or Dr. Mcclendon's office rafael, please call for an appointment today. Wash hands prior to putting in eyedrops. If any significant blurred vision, worse in anyway return for additional medical care. DIAGNOSIS: Injury of conjunctiva and corneal abrasion without foreign body, left eye, initial encounter Patient Understands: Yes - Patient/family/caregiver verbalizes understanding of instructions given Comment: Normal [facility] ED Patient Summaryon [address] [facility] ? Urgent Care [address] [id number] PATIENT DISCHARGE INSTRUCTIONS Patient Information Name: SHEYLA LEA Age: 17 Years Date of : 2005 Reason For Visit: Eye problem; UC - Eye Redness; LT EYE PROBLEM Arrival Time: 10/27/2022 17:44:34 Primary Care Physician: KEVIN STOKES Attending Physician: Power Ny Comment: Patient Education With: Address: When: KEVIN STOKES [facility] [id number] Business (1) Within 3 to 5 days [...] rub eyes. Please follow up with your green marketing specialist or Dr. Mcclendon's office rafael, please [...] condition may be caused by: ? A surveyor chain helper the eye. ? A gritty or irritating [...] in diseases and conditions of the eye (motor brakeman). This condition may be diagnosed based on your medical history, symptoms, and an eye exam. Before the eye exam, numbing drops may be put into your eye. You may also have dye put in your eye with a dropper or a small paper strip. The dye makes the abrasion easy to see when your motor brakeman examines your eye with a light. Your motor brakeman may look at your eye through an [...] you start to feel better. ? Take zyoo-hii-rdcrsox and prescription medicines only as told by your health care provider. ? Ask your health care provider if the medicine prescribed to you: ? Requires you to avoid driving or using heavy machinery. ? Can cause constipation. You may need to take these actions to prevent or treat constipation: ? Drink enough fluid to keep your urine pale yellow. ? Take szaa-yil-umncuwb or prescription medicines. ? Eat foods that are high in fiber, such as beans, whole grains, and fresh fruits and vegetables. ? Limit foods that are high in fat and processed sugars, such as fried or sweet foods. Eye patch use ? If you have an eye patch, wear i (more content not included)... [facility] Urgent Care Note- Provideron 10-27-2022 Urgent [...] been selected or recorded.. Surgical history: Myringotomy ([id number]). History of tonsillectomy ([id number]).. Family history: No family history items have [...] given 2 (more content not included)... [facility] Care Recordon [address] [facility] ? Urgent Care [address] [place] [address] PATIENT DISCHARGE INSTRUCTIONS Patient Information Name: SHEYLA LEA Age: 17 Years Date of : 2005 Reason For Visit: Eye problem; UC - Eye Redness; LT EYE PROBLEM Arrival Time: 10/27/2022 17:44:34 Primary Care Physician: KEVIN STOKES Attending Physician: Power Ny Comment: Visit Diagnosis: Diagnoses This Visit Eye problem ([id number]) Injury of conjunctiva and corneal abrasion without foreign body, left eye, initial encounter (S05.02XA) UC - Eye Redness ([id number]) If you received any narcotics, sedation, or [...] documents With: Address: When: KEVIN STOKES [address] [place] [address] Business (1) Within 3 to 5 days [...] rub eyes. Please follow up with your green marketing specialist or Dr. Mcclendon's office rafael, please call for an appointment today. Wash hands prior to putting in eyedrops. If any significant blurred vision, worse in anyway return for additional medical care. Medication Information: The exam and treatment you received today in the [facility] were for an urgent problem and are not intended as complete care. It is important for you to follow up with a doctor, nurse practitioner, or physician?s medical receptionist medical assistant for ongoing care. If your symptoms [...] so we can reach you if necessary. [facility] has provided you with a complete list of medications post discharge. Please inform your opal miner/provider of your visit and for further instruction on these medications. Any specific questions regarding your chronic medications and dosages should be discussed with your primary care physician(s) and/or pharmacist. New Medications [id number], [address], [place] [id number], [phone] moxifloxacin ophthalmic (Vigamox 0.5% ophthalmic solution) 1 [...] a c (more content not included)... [facility] Coding Summaryon 08-06-2022 Coding Summary HTMLBase 64 XhpoqulvBUp3iVw+PGhlYWQ+PE1 KQLSsN86bkYFkpU3SP9tCVA5NEF LTPFDGJV8XZB9jnRI4RObbX6War iAv VegdyBYmHM33GLp7DFX0uJjkVVt wvF5pvANzO5t6ReAuUL97rA98BD fmBVPaWkS9JyTsjtmmyKGv X7ywKaNthZPkQgh+PHRhYmxlIHd vFCFsKZxaRWRlMaDhqYiaME9hGz 9yZGVyLWNvbGxhcHNlOiBj e2zgBTVkOGuuLI9qzGpmF1AivKA 9LPXht2p0Vk98vGL+WSIbAHH4vX fiAOjiq221EyYwe9hxPNJ1 rJFrHQcuBXY4V69gy7S6SFMdGFD fNJM4oJJ8aA1qeQhzmanzQ0YwtU TbPlV1VKY4nOWftS6lzQop ftefcT9kYvs+K59OQT6YMEJBDT1 OBgv8T4PcAypkxGD+LH28JROsFH 70pWLdsCXof1fxpVo3WbOw ISAbKSY0hKxnXEhdh8BiDJAnM12 seTRcb5L9OOMsiJkgdWQnNoEbvL J1eI4oNUdtmonyr9mjpnya Bkugq9oohh77qT33T54aTDfuNXE jAFQ8NSVqENIulPnwqr4taK6zMr 8+JYabj1ums9vsmQg7RkAp VMGwktSlgEnfQBI1b8JpHf93A4P fgOkpj8VrWkj8oa95jRIek5C4xG Y0SQxtYFQflM4bVZehOkN4 DGCdGcKfxV77lZCnWZjvHs0ciWb mzNebPP7iCJBhpiyfUQTdqY7mGA TxaSCwjOliWT2vQMFexcom n903VuJiYWT2WXNtzWAiW5FbzS9 vTzSpQNFhEAEpK2XhxHYxYNbrI8 42VUixOvU8QGAnavOqJ1Ct DLNylUitPoM7d2X6Sx6At4Qhhao uJZD5ICrzVVEbUmZnHqQaSxY1G3 SpLvw4QEAsuEtlDL3bY1Pm OABanzbkvreqgZM8YMFqYVUquU1 5rKNaZXulKp4xq1Q4u016XJWxFL ZwcZ30Pg3dlFqiUTMbgMTU gK8hohytp7wjjsjeHdItUNFiVEc 1UMs4FHDvhZgyBhRyXHJ9NnQ0UY X4sERlzO4swKekyneyqZ0b Oyc+S14kbS1bXTJ9MFC7naxeCFS tslKvZE42IC43Y4IeEetjbJJslR U+KKHwjcOutOeaLS2gRaSm c7vfo4QnACdoH1RgKGWnBJewFgg 1MAEjRDD7aNM4qO7eBRHzBWbkl4 U1sJG7W0EkanZwba4hb4um GRMbWOxuF33bvIDoh8V5OOVksMM 7ZZYbyIcgHiZjaU13Uwd+PGNvbG wht5NgSdhud7zkw7hdpKu9 ZsHhPSYwmtRyiTysBOE3c9PqEn0 2T02cLTeyACBuDRYkGRQuPDDqwI pjlq8zfE8bEx6+PGNvbCB3 bFP7gU3kGVQyPuT1YJhcX023RkX ryVNtAfppm6myw0elaBc5GhOvAS JkzlPwqDamOIR9e1WeZd14 L83gTZstEURmNWYlNPFcSKXdwSe rxd5pbC5xRb1+EP4yl5ijpt34mN 48dHI+URCqBRF2gHvuPTpk ZWEueI3dLBezKxO3UKNnBmVlpK6 3gWGvPVruVd6xrEiicRoqAP5sTY Zupkacd168GwScr7cnNPEj oNJtJLuhMYH6E20hg1Q5KAKfGRU jQWD9vEO3xY4dgKgmatwyeZHmiO hpemGuuSyjCRhoRAakK050 IHRvcDsnPlBhdGllbnQgTmFtZTo 3S6SaRfd9FFFtcYnfOT9mdXUkBP ayKl1npQwyuFhvKM7sHQMp bzpkc028GzRvg4ymPYRlgUHxFJl lYYF0J88sw0Y5LDIvRTSySLE2wU Z3wC3jvMavdflbeXNdfVpm mgRfgVggXWpjABnyX124DTCsjFg xVhFejaGuUUVecKS2SJ90TF81nX Kit8B4dGJ6R8GlBVYzltfr iufagQD5BPViUBPkkR09Qb1hwMm qBj2iEDOaPBL3SXIbnCPzJ6GozT 1sNtQvHRAzTPSeJ9ZyfXEy YAruF106QKirUeE5DWEntlEaW7H eKKFthYwiApB5s0C8Qc7CX2Y4TD 41MY67gOJkf8O2fNY3U6Co OBMdaifkfhblwHC9LIZqZYBrqM3 9Qk5qfLnaKf7lZKVvUNU0IZVelN KhU1SjwE7sAzKyYYMsCENu K7UpqZCqOZzxB557VMdjMjX7OTH fomLzC9EpTGVlbOgsSwC4n3D3Eb 7HRJj2NQ66VA61pDAjb0E5 tHD3A4CdMYHjddpcogldlWM0FTL uLOKaeJ78Pv5bdYicEs4jYMDoQU E8BBKzoRYpZ8RgsS7cCjPz LCSeMKTnH8GdfAHqYFtfL000VJa zDdN8BLWxirOmD8JfVCVywRkmRr H7d4J2Gg7CJMLqBA05LUG4 qWM0HY81SG02P9MpNfgqaOXndHL +PHRhYmxlIHdpZHRoPScxMDAlJy HppYfgFU5hXp8bJARhCWOr uCnesHZlDeAmk7hnKLTxFUdqYU4 ynLcaM8ZiaKQ4XWZms7w8Bf14G2 0gS1SieAW+KBCfbGY8cWG8 fM5nDsQeZhX4ZCbcS159PbJmpCY qEpjfk7dvq8xfjOi9UwI7FDWenb MhmHdzOXI3y9WuWk44R93f IHdpZHRoPSIxNSUiIHZhbGlnbj0 rhI4hNe0+EIBndAC5zGG2dK4qBm QoTzK9XAyvE193EbWqvZZl Vypgr5dsh7lkwNl9SzKpLWOtilX fzPrwGTW3m9VyXr96C4VkuCzez5 PrVul0xq59sOPzn3Z3lKQ2 A0VaZXQwasxrzFAxvJkoMF9iFLT ilgywGXQmjI6oNEXeC8q1IjAcSe P0DPelL4LfxcW5UYHudVBo ZLftPNQ6A64ay5T4UWUvIVWgQCO 0iSC3vX6drZsimysyrUObjFrusc LhcHhhIWhlVXxeF224GKRh lRbuYNIdyX2nTUStrLShmHayQL5 fADDnuiirZsqFHfMQE2CUBAPEJW 9VFJUHB8FLXFzZPZKVHBFD RTwvdGQ+TFWjEXE6bNnmHBmrJVM tjM0hZZBjU0a8DjRyQyQ5GJxyN8 JeXIJuquodCc33eT4pEuJe TiU5ARtuK0SgcmC5XXKkkAGgEVx aNXB2I85cp2U4AZBuJVYuVDS0mS F0xZ1caEwwiraxsJYcbVqs vtGycXcxTJfnGFweN047WAZllVw iQeEuApU1VjWqWNQ5Y6MwLdo4RV XwvXbsNL2laLYeFDehOi0y fOmbcIbeIX8uQKGtavbeVIQxoU7 rPKLkrNTpmQvsGU0qSBUlnbpwz0 21OvZiEIP1FVUfcIHuT4Dy fP9gMhCgOJQrVFJtC0HyhNAmXMz bB219CDqpBaN7VJJmjaMkG0ObQR RyiUelCgT4s5N0Tc9pBNRU ZWFyczwvdGQ+ZRVeXAX1yLwmOFb dDLCqzV7pEGYbZ6b5CcEdPeM7KP whP6BnUCTooksiSy35hA6a NtBiUdJ5CMxkI9LjwgA9LJPpoNM uEMulJKO5R36ra6L8WBGgELVyOI L6nTX8wY5xfSmubhgbtDBv eKwyzzVliPmbMQdaPEqiV441COC vcDsnPkZFTUFMRTwvdGQ+PHRkIH T2sQirPFjbIPTsrF6pVMSa H3r0XjDiTqA1CRhfS3JqLOLbtjt tOq52sK8tPbZvNtU7KMjmG7Qkrs O1EAWidWRvMDzeXUX0C17k n6V5LBFaLDBwLLX3cEB9fS8wfGg nbjogbGVmdDsgdmVydGljYWwtYW acL935WJNrfMxfJn8UPY79 CO51Q4LkFceiqODjjAS+PHRhYmx lIHdpZHRoPScxMDAlJyBzdHlsZT 9oZy1sJBUwYJNgiVumtVBg HhIki2znSPKvZUriGJ7cpXdpF6F vhMD4TBQxd6w3Xu16L16oQ7GclB A+YAXjjZW4hFN4pK8mLxRw DtM0OAywI266GjBxnTWdCwufd1i sy6palLg8JeJzZFGqhnPppEdtBV C4z9SxQd52X32jYWriRBNe LLBnGXSdJMXqiAcjou1xaT0uMw1 +NEGmlLK2kEO4yI1aWdMqPvD7XL zmX189QqLzyRPvIavrX85k F2NemAL+YYIvTlo2TCVqgAoePV0 jpMZhAYrlXl9jXEC3VfNxJsJjCV moW4ByPOVwpnnhonnkgSB8 TULvVXBjeF60Yn3ofGxwQy6hBTI cNEM8RHWamTBzG3OzxV5oLyJoWH NxUOKaJ5AlfNPpPCmlT180 CCjdLhZ5HVLopeKzA0GvUFMexRd gNgS2v0X9Ap6LbUqxeWWmHG0fEu RjTLk9K8WaHsh6DSDuwUnl RW5epIPrAKflUv9nuSedoHbfMB3 kNSOfaxgpm564IaYvg8zwWWQodL XnEPxuAPU1Z21vb9V5JKKy YQApATD3kXN8cT5zbJowyougoUE atFfqddOnmXpzIYmgXEenT254HI YkfKybZcZWRge9Y9RiUcz7 WQTzeFlzKV3qxVQqYPucOn4hjOd qcPgbDV3qUHWicquxu794DrGhp3 sfQFIvmMXnERxvVOA8A87p t2U0ZLDoGXSnOBG5rHF5yO8wlAx nbjogbGVmdDsgdmVydGljYWwtYW mcE814AOVibMicVw0NSpn6 H6NwGio3QWFvcLplZX8icTHoBYq tLc1cjHvntYpqMI3lFTNzindpp7 30WgAmq2mxDNWviMExSWpy BBB8E04gj8H7VWAyUMTwCDX6qSW 1rK4ljZltictybZKsdDvuljCvlA vwCSuiANynW848EKAkhEpv PlBheWVyOjwvdGQ+NC41fx59I3P bPjszBbl6EDJpBSC7oKA4gC1kBG DpOGtjo1O0zZF1Q1KhhmAs ci1 (more content not included)... [facility] Coding Summary HTMLBase 64 MoopfwdmREm5pQo+PGhlYWQ+PE1 CHLOmX82ktLGjvE2PC6fWRE0SFU ATEJGAAE5VCY4kfVL5KPxeO7Kbp iAv IghojPCiOL09MTc1NTR4eJxtGUt eqZ3yqTGfA7q4HqStRJ14aK68MM rkOXStFjU1NzMpjqxlfDRr B7cjBuQqzINgJie+PHRhYmxlIHd jYKEyICyfHNCaHuOrvCldFE1qFe 9yZGVyLWNvbGxhcHNlOiBj s0aaKZMaAVsyZR8weRfnC8KrfDZ 9MGTkd6x8Lt03xXP+OSYfNAR9iF lxXLzhc737LqWsb2faXNB8 kZUlQNomLMR2U22tb7Y3BKMgFMA cMXG9kQG8yE3mfCznejgxA7ZrfQ IxIgM9NNF5sAEdzN8inLzc zywyoE3qQsj+F75ZJO0EGQSECD0 LGkd4C3SlOiypuZD+UC08JUPkGS 00lOZkeHLno3skuFd2CfSi DSTlEUR1lOafCLarv8XsLUDvL79 unCZtl9O3LZBhjRayxBOfYeMqdI Z4yQ0qCZzcdwvel2qlvsqn Lugjo2hkhb96mM54X14mSPelNDI sYRP0LWIiNEAwiThopf0pcC9qFp 8+XSlby2kfo7tnuQs3CvBt XYDgijDksAiuXGD9n4DwNr43O6B boXzzd7NjIce8dk11yWHos8T3lB W3SAcdZTDipY8pFRqlByP8 DXDpFlCogC15kVDgJKjkLe6agEd kpXnoCT6sTWNvfyixXETebY6sIN HlcHFmmCxoAU8hQFEjtkri e290XbMdFJZ3WCVbsYSuK0VntB3 uHqFdYPZuXBVxQ6VqmQGsBAczA6 56FBzmTxY4RRWlzmFcD3Uy SBWnmEggRdL7b5W9Hi7Rw3Jkzot dADP8OTavWJUqMhTpRoJqJjX4V5 YjSln3SSMlmFwtOE0jJ5Es IOJwzxvzruzezSY7UDScWZNehG3 2tSEmTEzqDt3mk0U1f337NBCcJX CovD57Zk8vhBcrEWCldYUW sD8iovxxz4ddcgfeDcOjZTPsYVk 6YIr5BBDpnZdhKaAwLLY6VmD2AU M3qAZleF4vfUcobdzzvG5n Oyc+K12vtT7cLFN0QZW7ivaaDIP huyFdXH04DP41T0KwDcoxdNQrpW U+YYSfkjPdiKdpLW3hRnDm c8ppn7XwCUgqT8XkNDIpRRrkJev 5EMEwLMH3lSZ4tH7gFXNyQGtmy3 F2uRX4Y4TomfUnkv8cq1wv CRUwEZboB19qcTNzw3U9QWMlxAE 2KYOdyVtlKqGrqN05Zrn+PGNvbG wph0JyUzgpp0zbb2shwBu7 KvXhGYKgyvIvgCyjUNW4s6DxCs7 0C10qPFicTTFfZHFaWANtOFFdiF ujvb5osB8wIq5+PGNvbCB3 bQG1gZ7wOTMdGuO7ORzkO457MqB nkLOzLstbf4hjz3fejBc8OtErIL RixeXfxIviJPP2l2UeOm98 M69dMVbxRJQoHKCqMMBjCCTdcBs xpb7ijP1qSl6+UB2hu4viti70jH 48dHI+FCUrBGX1bSqfXLjs SOCdgS8fRNmeEdQ6EIInCuPhoS7 3aYWnIHmcRx5vmGxfiYcbYO0gGN Rtrjklq259KpMzk8vaTATm vRCmBYdyKTU5P45ad5I6IDXdKRN sWVT3oTU8fF3lcKrlpdmeiYRqdI diwoXigEwaKKpvDQydD191 IHRvcDsnPlBhdGllbnQgTmFtZTo 0R0LkKmx2AHDknMsdZY8yeMGrMU hqHj0miMownCqySH0aWDOm hlnpx158WlWlq9arSLRzfDDmTCs rWZP6S15oa7Y9JLMfVRYnIYK7yK R9wV6avRuopfcixUJdrQzs ceZhvTsfCJwsPXptC590LZYmzHy tAmZhehLfATBquYS0VK96QM17qP Wsz4T4uLV7G1XvYBEkarnn drzmnBS7NQElHSYxbV77Wj5jyHo aRi7sSYTfAXV8AMLooNRxT5YtiD 3uCgQqBNIcPKKfG2SidKOu RTabY745NJenIrT7KIKiuuIkW9B tISGbkRbrAmI3x9F3Vs1QO5Q5RU 70JN21gUIbf6B4lDZ8W2Mp WCVnkaaouebyeFX1PJIoLMMtsS3 3Dp8evIjfOx3qFVJaGCP7YYFtmG PbX0FuuS8pZdKsZQXlFVHk K5LuzUPpNMrbC642TEyoWtN1INT djkUdD7IlVGOagAkfXtR2w5U0Au 6WLTk8QS88RX58oYFos0D7 aSA6S4JfSVIckmbpvwfonJT6JHX sKHGleY16Rl2stCbbKn2kDZLzIN R8OIJfxXSiT8RooU5yRgEw VHImAUOrA3GbnDXqTZzdP807ISg cQmU6XXPihhMzQ0EkPOYkoWimQj J5b3I4Vt3HSYAqXZ15FVH1 sQD3YM13RA90X4AcZlanrWHpjMJ +PHRhYmxlIHdpZHRoPScxMDAlJy ZuyAhdUR9xMk7cBZEiNMKr cMjxkCOfWgQff9fnMSMhXMfnNB5 vrDnpR1CquVF0EPQux5v9Rl98O6 9bJ2BxjEO+NWSebME2oCY0 kX6lVnEjQiA6YGeqQ786EmPgvAO bHhunn6hly0cgaCb6WnV3FELbrj KhcRwlMSK4a6KoQv34H16x IHdpZHRoPSIxNSUiIHZhbGlnbj0 vbN0sZt0+SNIpkBD2oUS8mM1fYi AcNxI3TAnuV882CcQqwTJh Hzsow5vzi7gkhCp6ChRxXJNpthG asSxlFNR4j3SaOh44J1ZkpGtje8 UzIvq7hr68pAQre7F7eXB1 Q2GdZKHzvpawtZFgrTcsJF3uZCX slaecLVInjO5nXMGgN5m8CoAoMf Z6OCdgW4GyewS4SXWqlZHw KMwvDFC5N89uj7B2SGXiCZFbQOW 4vZJ7bG9cpXuqfnjrfOOjhXgqob AylFtjUPfwPPjmC154UQMh dOuaUIVefO3mGMMnpHRcuXroMJ8 zDFAhktblApjXCtLZH0JYOTHMTG 6SQAWIW8ILROsATFYPGPWU RTwvdGQ+RQMiAGL9oSzkQUffYBK kiU0rUXTzV8m5WqFsZyD0VEvaH6 ZuAXHjbhpcGu96xQ3fTyAe BhB5MScjH0FcjpP7SUPsaRJaTHa lJNU7J76ed9T2NMRwSQQnVKM3wJ D3dX0bgXitjjbzlOSpeWgj qaDfpPzlMWkeGNclB093CGDfuJq bNiGiDiY5LeHxGPJ5P1NyJpa2AR UtoArzIK0bfXAbQXyfVz6z mZxvhMhcIA6mMWXxcjltLJApeU9 tSVFgnQVlcQkxHA7lAEFdgswmf8 71FtWvTIE0VUDbaGCyJ3Zs dF5gZaEiLQLpCXXyO0QyoBDoQOf kB540OOrqSqQ1BYDaeuOjB7UaNG GsgHmhErJ8b4C5Ua4lUMIY ZWFyczwvdGQ+JFQfSVS4fVrcGTh lBVHywI4uDJWiZ3x3EcRhNrR9VS pgO2ZhKYQlmospMd56jP9w OsBrGyV7URcuD0NnouY7NYRvsED wPZvfPCW8H37kx2C9TBEnKKWeSS B7rVY1pZ0adNngbvpieCWf bDogayGmfWxyVLxyVRdlP776PKJ vcDsnPkZFTUFMRTwvdGQ+PHRkIH Y7aYcmNZzpPRCzaT9dCZCu F0l4AiFxEqL9QIbzD9JjBNZqyiv sTc60kO2lLaBtEpZ8PIfzT6Lvez A1ADTzrASgFLhjNZB3M40k f5K1FDIiIEWxAYQ7tKG0cI6idPh nbjogbGVmdDsgdmVydGljYWwtYW gyI555EGGvqBixEyCqCEYu OD1hgNkavXM+DN78hq63G3NwQzy lGuh3DSYqKGR8lDY6jG6qSPKyEQ tju5E6xTJ2F3PeykBjkm2c h4tqDDGhFSytK76ubJOzm1P4NIS gfPZ1PWVdvGrxIwEbkJ57Zhv+PG VceZase9EcJpvwz8tab2nr pIy5VmAvGPEwtmOvvWuzMMP6y3H kCh48B01cZUrjFEWjSQEtJTLaKG NbrLclgv1pfS2zJj5+PGNv mGN9wHV1mK4fUpYeStN2PRjfB91 8LlFzdMYcFzyxv8wwo4srePs2Dg AdAMTfyrUsqRlbLMU8n6Ay Ud66O7ZgeAntw2HuPng6zb33rLU ae8Q9vRH1O6XaLMHkitdazMAtiW ojHR4lKMQnbhabSBJkvU5g JRXuJ3p8UqXnGdS3EXdcC5YispZ 3SJLmxVOlUMVcaVBGdG7bxqlgo0 sfivbaBsMeWCYtSFd6RTe3 SPAigGrzUfWjSLL2IiM6BLV4dYJ iwG7kaUkmtbdnuJ9yZda+UGh5c2 uswWTiMW8vzIM4LV03VG17 zPWhv3N2nNG7X6GrJULqdpjfwnf hxOT7BTQlRLOdbF05Nu5vnJxpJz 5uAHTdAJF4RSManCBkA8Ie nI9uVwDqWLDaGWDvZ2AqgDQbGPr yO742YGwiRmD8UAPwzoMjT8DcIM DxgGofFxW2z2J5Ho9NYY90 BV79PR11jOUtz8U7rOT4Z6TrDUT bntnkcwoivXM1GTTlPWSqdZ97Rp 0vkDsmCk4oQOYvNXV5OVXt dPAwT9YfnK6pAiJrEYFbIQIyR8E kzNNvENehC010RNemKkA0UZXljw CiG6UbNVKzeXzjDdN0r7Q9 Xi4JYg28YQ13TI62gSFge4N9hAY 2F9ZnYVVfogzzktbejVO2MYCmCK WvsA80Yb8zuLhoBk5mMJFq EDY4KKTmrAOiI4XbaI8xWmYmSPF tKUFkO9FmmFJvJTapG654GVjbPa E2LWGrqyHwA5DtQZCltJvf BaR7t0B0Gi2FVGwwgca0R9NgTdm vdHI+NH74CTUlWB57pYLndRZhn4 ywpKu3IdLzWJEbDNZ9hHoe PSd (more content not included)... [facility] Coding Summary HTMLBase 64 UpifbsvdFWq5zZd+PGhlYWQ+PE1 WNGMdD21xoWCblC6LZ5hPWZ9OMA GDLCUZRH5HUS9sxUO2EDouT3Rzc iAv TnykdCVeGN07CRe8SFP3pRqoLCo mzJ9ogBGmJ1w0ThJoGW10pO43QS yfYNNbLqG4ZrCwzxjglMMx Z2noRdMeyEKfGpk+PHRhYmxlIHd aJAQeFMubAHRoLwVitHwoXM6wSf 9yZGVyLWNvbGxhcHNlOiBj f8ozFRTjBFrqOE2ncXteX1YjsWZ 2ODStz2o8Tw52sWT+XQYcKDQ3mD qbSIjll869WmYsf5veYUT1 bGCsYPrwHEP1W40ot5N5DSNqJVK pBMR7nDI9jG3qkIbvovgmN3AcnA InEtS5HAM7mILkvR9deFfu cakocS8qKai+J79XEI9WFYHMKM2 OSyn8U0HqCyvgjXO+QT80FJHoJG 75sCBsyFGzt9bwvJg5JiKs KPFkNGW9xSrdFLctf0VeBXUvW33 nmETeo3P7HIZpyOadoHXrNwJhfF M6yU1bEDudavftc3waelew Ipuvm9amjn42tQ03L61yXDkcYNE nLPS4BNYxYRXwzExbxe3ogP2kMd 8+ZCvzh5pbz5hdvBm7VtSt CPEredQpnUwoQSA0y5ZvLc01I6F cjIwiw7YzIws4kv61vYAst4A5mL H9JSrzDEWfcR4xUUfmYmX6 DVWmAwKehK14lWXxOVoeRf3cpEp yeNpyAE4tOMOjnuozLEFtiQ7cNK MjoRVmlJvuAT7cNACtvzfc g744ZeCtTMA2VYEkwCQzS2MquO9 eIiWtOXMfRJRgY9CddJYkDBnkQ0 93FWdfDjE3KHQndqLhA6Ym LVIzbYlbUuW1i0G8Jj7Qz4Vhrzo zGOP4KOszIZZsKyTaYnNfLaH5H3 GrTvd7WXTwcMbeOM8eI6Yu SPFtlwscqvjssHB7IBCqWXCbrO2 0cBGtUTalVw5gl1R4d726ANNhZC UsjU10Tn9suGrkOSGrbMGZ cH0iwzcwl9tktwzsBwXiJRGsCKd 7BTm6TKLcjNnuRuXmHQD3TgW8YF X1uTAcbB3rtSbzdszokW1o Oyc+J62iuF0zWZZ0STN3vupfPXR pgqNpRK94RS33M0FhOwimiXXhdZ U+TTRqcnNvtWqsSQ1fCsPq i8cne9NpOEpnM3OxISEdKBicQyz 5KGHtAAY5rVF2pI4oNZIfXKxkp7 G1hNS6L5GdthAckd1nz9xz KKSdWOwjW52pmCYpr5W9LWOfrPX 2QVJedVaaQuNpgD03Huf+PGNvbG wdc3CgTxyav0nny0okeOn9 TsZgBPXofdDijYgmAWO0x8XgJb9 2A89eWCxnKKMiEAFfSAVmPRQcmR muby6rfQ3pSz3+PGNvbCB3 bFD9dR0mWDCqIjN9EBdlL078LeW vuHLwNsqpb7bau2lctQw6JbFkMD HdgjGawYmoSQA2e6QhMn81 C69cYSmuJPPrSDIuTQPeMHSpuPr izs2drJ9qVs4+RZ9sk8poik75hO 48dHI+PKNxECR6qGkbHKwe SSAzvI4dONvdTxZ7AHWmRmXjwN3 6xCPzUUfhPo7mrEztjXchMU3qNN Gslkufo495FfZfv0pvWTXg kMWeWEsyWLP0G75qj5M4OUPvLLX dVOF1nOA0eZ6ujDnelogecPNnuL knlpNseAlySOtgRXuiP769 IHRvcDsnPlBhdGllbnQgTmFtZTo 7V7QoCgh8UHTbyTqsZL4omOVpHT neGq9sfMrktPixIC1tOBHz qmgdw604TiOom0nlOCEojPOmLZr nHCM4B58pp6W0IBLhHPBkFFY9vV X5gP7jlVhtwtgowBUbnVkk zbDitXgmRXbrVXggK873ODPfsPz oIqRbzcTwQGNrsKZ4GE78QZ02lT Hwj5J3mVM4F9CfRPOlsequ jtiljJW3XGFuDXOozF71Tf2njWb bOk3yBGErYLC9WHErmENvM0DorG 8gBkXbBYXaSNJhV2SggDIv HYvmD631VCtbXlU4NZJdeoJeG4J cFPKbmWhlEfV6o9U5Pz0CF6T2HT 92PI36kCCvm5U0uAU7C8Gb ONEjjhmewubhkRT8XHCdWJFmfN0 9Tg4viCjhPg4qDQSpEYS1NKVufZ UqX6VqcO0iLkKaVUDiLIYp B1SosDSlLGqzL126ZUbnKaJ2SKC jtdNvN4QgSNIeuToxSfO4s2N2Ah 5OMKy8VA95XS78dQCgp6V0 uSS2Q4GgYEXkzvdggooweMH7AIU pZFPdyA38Pt6hgIapLh2nWGJvHM G2AENrkGWcA2AfaD3uHlKd GPDnKOGkU0TmlLDpMUiyA085IPs sYtH2GMLaodPdV9FtLPQbvJcpFn X8i5R6Qi1UDWGgVW51WMT0 tJV3XI33TI29P5MpSujbvCLupMA +PHRhYmxlIHdpZHRoPScxMDAlJy IpwNjxFF2aSn2yAQUsSFCn nOfgtNZuMxXho2vvFAWjVXmnUD5 fmAjyV8UxbRS6QTGxf8j1Qn74J3 8mH7HpaMJ+ZOFgaXL1wBP1 xF1mWcCnFeO1DTwqV582KmKdwPY kDotlr9vso1vcyHk0IuI8KYVjwm QbdUprGSX7e8ByGv89X53d IHdpZHRoPSIxNSUiIHZhbGlnbj0 uwE6hDr8+LCHwmNK7dTK3yT6yNr ZoFcF5DWhlO253DtPcaOQk Wevik3kzr4lzrIp5PwLeMGUkopO kzBkqUHF1o1WmYq35B1CmgHivv8 OoSfu0dt85yFExa6M4mNR5 F8DnECNsqjjtzOEfcKfnYJ0rUXF acraxYSApuR1zBCQbR4d9GjJkMm H6KDugU6AsukI2YJSnsFJe JBuzSWK6W70zz1L7SIVlCZQxKMM 2sUJ1mI3cgPcqzeteaWXenFhjcb BvyOatIVpsOUqdR267WFSu eZhvBOJjzS0ePPYejOAjjCprTU0 sSDMfcsvrVntZJiWEF7CEMVWLCS 7XTENNK4JBGUjRENKGPVZE RTwvdGQ+EXFxLON7wVqjZSynYEU qzG5zORDnP1h1NyThLmP2UEqwO0 SoRQTbkxorUi68yI2pCcRu AzY0BRrqD4OdhaH8IVFcdBAiMMg vOFU3E51ho7E6MCXlLWXkNJJ3pO Y7zD5qfPkfolnreFQgdUsy uwVtxCvgZCciAZuoX327LKJkbOy zFnTcQlL7MxAiRAU5X4SrEly5PX WzdUfjSQ2jjFKpYNxlLb6p hUzgkQnqKT8iADXcttdfTQEscY5 dBVKyuEAsqOquXH5wJIKqcnmnj6 16SpJaATR4ANNbnZFuU1Iu yV3mAuHbVLTuSDGfS7WedKFwFLo iA018XMfsUgV5BBLrgbIlU4BmRN RdsMvuHjS7a7T4Ln3aFYFJ ZWFyczwvdGQ+GEOaGNN5zEaeJBa tBTEuzJ5mVXQuX5f0FyZiQyM1VA dbZ1NnFINneiucDd90oM8n ElBjGiI1AFojX1GhuqW7TOGpkOW nKDhmCSO2A29vt5C6TJNfWIQyRX Z2tOH4mJ7iyWmruwtvoMBn pHqtluAwbNgzPAxdRRjzA118WPJ vcDsnPkZFTUFMRTwvdGQ+PHRkIH S9dQjeSYalCZPxnF5eOZOi Q8x9GvDfWhP8XVbxV2SnBTQjisp aVe35eT6rVdIpDrH5LYxwP5Vhyp H6SVMnnASnEKyzLTM7A29o i8H2IXMhIXDuXNX0fFJ1tI8dxMf nbjogbGVmdDsgdmVydGljYWwtYW qiJ607VULbbSlfGkPeAQPu MB1wrNxtsOI+RI08cq30R2OrRzs xIjx7OHFfKPL8xQU0qN3jYIXbAW dkj1C9kFM9B9WfxeLzvw0x l1rtYSTxDCwhT40rcBYpj2G2HMB ocOD0BDEllWtbJkRqyA15Hmy+PG SnlEfka9KhLeohq2mul9az xBp7GpFvCZNwlcQwdPfaERV5u4Z aZy53C38yDZlwNVOoVTPeVGMnFQ PebXcytc6hvQ1yYj5+PGNv sLF8dGU2jA2oRoHnPuF3JAmkP64 4GoQteNQbFxxcc3eqt2tjiQq8Uo VqFQIfkwTwgOxeWKA9i9Zl Fp28O3NyxGign3OyYgl1bp40nUG wd7E6bLI7Z8FsAGOqbwotzXUziI ywVN1xWXJukmgjQMXnfC9p USYjW3p9RiAaUeD9SVzxT4EoraK 3RWGlnRTlZGNwuQXRoH4xpbcuj8 lwoyolIlHqBEDpNVc2VJx5 OEXilPpnHbBnQGT2XpO9MVP4rIP yfZ0bcNmpiiadlT1uMxg+UGh5c2 opqBIlUE2jdUP4AN58PR67 mFUlq9R2pQQ2A2VjLUUssmvzbuh anQX9UFTnGBTihL79Vb2hsBllLd 4iJHGeWFL4HEQubJQjR3Ov lG8fRyKwPTBpGBAlE0PszIHbAFa xP306DRhsYjO4MWIprqYhD0DeFK LuxZhyEzP3t1X8Fm1MZV98 MV47CY91mFTnm8T1sQP1V0DpUVC khgwhdvixgBX5DHOkMXDoyV40Tx 9qbRbiSd0vLSMpYOM4EKRj hTPuY4KanD6hVqKoDVHmDUWiR0J huTMvTLknB287VYciDsR1TRPlxr VyZ5HhTTCcwNfqWaO0u5M3 Xl0GQd62JM04SZ42xNWpt2V4vED 6Y5VqVGTwowzarcgofQK7NZHgWH TttN29Op1puBeyTq5vYRIf NVZ4LFGwoVNhH6MxtK8aEqGvTIA cUIMnX3FnnOJmASllB922LDwsNs A5HCIcpwOqP2EfBONxzXne EhW4x7R1Fo7GVMjwuyq2P1PxTrq vdHI+TZ14BYNwZS59jBEqxJMuf9 hywJy9RrQhRYIvZBH8nVwi PSd (more content not included)... Normal [facility] Consent Formson 08-03-2022 Consent Forms [id number] Normal [facility] .Auto Diff 1on 07-31-2022 Auto [place] % 8 % Normal 05-[address] [facility] Comment on above: Performed By: #### 1 [id number], [id number], [id number], [id number], [id number], [id number], [id number] ####[facility] (DEFAULT)[address] [place] [address] 90584 Baso Abs# 0.0 x10 Normal 0.0-0.[address] [facility] Comment on above: Performed By: #### 1 [id number], [id number], [id number], [id number], [id number], , ####[facility] (DEFAULT)[address] [place] [address] 55666 Basophils/100 WBC (Bld) 1.0 % Normal 0.2-2.[address] [facility] Comment on above: Performed By: #### 1 [id number], [id number], [id number], [id number], [id number], , ####[facility] (DEFAULT)[address] [place] [address] 07632 Eos Abs# 0.1 x10 Normal 0.0-0.[address] [facility] Comment on above: Performed By: #### 1 [id number], [id number], [id number], 5105134, [id number], [id number], ####[facility] (DEFAULT)[address] [place] [address] 07125 Eosinophils/100 WBC (Bld) 2.2 % Normal 0.9-4.[address] [facility] Comment on above: Performed By: #### 1 [id number], [id number], [id number], 5146592, [id number], [id number], ####[facility] (DEFAULT)[address] [place] [address] 76687 Lymph Abs# 1.5 x10 Normal 1.3-2.[address] [facility] Comment on above: Performed By: #### 1 [id number], [id number], [id number], 7154976, 2825991, [id number], [id number] ####[facility] (DEFAULT)[address] [place] [address] Lymphocytes/100 WBC (Bld) 35 % Normal 14-[address] [facility] Comment on above: Performed By: #### 1 [id number], [id number], [id number], 7152653, 3204805, [id number], [id number] ####[facility] (DEFAULT)[address] [place] [address] [place] Abs# 0.4 x10 Normal 0.0-0.[address] [facility] Comment on above: Performed By: #### 1 [id number], [id number], [id number], 9657933, 8975216, [id number], [id number] ####[facility] (DEFAULT)[address] [place] [address] 16828 Neut Abs# 2.3 x10 Normal 1.5-9.[address] [facility] Comment on above: Performed By: #### 1 [id number], [id number], [id number], 0263246, 4791156, [id number], [id number] ####[facility] (DEFAULT)[address] [place] [address] 32969 Neutrophils/100 WBC (Bld) 54 % Normal 44-[address] [facility] Comment on above: Performed By: #### 1 [id number], [id number], [id number], 3292741, 7604106, [id number], [id number] ####[facility] (DEFAULT)[address] [place] [address] CBC w/ Auto Diffon 3 Erythrocyte distribution width (RBC) [Ratio] 14.7 % Normal 11.5-15.[address] [facility] Comment on above: Performed By: #### 1 [id number], [id number], 4031230393, 5767141, 4200925, 4092353109, [id number] ####[facility] (DEFAULT)[address] [place] [address] Hematocrit (Bld) [Volume fraction] 39.8 % Normal 33.7-40.[address] [facility] Comment on above: Performed By: #### 1 2595975, 2838630418, 0896249003, 0236476, 5515875, [id number], ####[facility] (DEFAULT)[address] [place] [address] Hemoglobin (Bld) [Mass/Vol] 12.9 g/dL Normal 11.3-15.[address] [facility] Comment on above: Performed By: #### 1 1129908, 9908888068, 7652039095, 2040351, 6193629, 1448224824, ####[facility] (DEFAULT)[address] [place] [address] 33363 Man Diff? Auto Invalid Interpretation Code [facility] Comment on above: Performed By: #### 1 5648048, 8345998392, 7257946287, 4445326, 3947475, 9581922987, 0841538369 ####[facility] (DEFAULT)[address] [place] [address] 52351 MCH (RBC) [Entitic mass] 25 pg Normal 24-[address] [facility] Comment on above: Performed By: #### 1 5226801, 5076920785, 2101358683, 6143018, 3491137, 1971344941, ####[facility] (DEFAULT)[address] [place] [address] MCHC (RBC) [Mass/Vol] 32 g/dL Normal 26-[address] [facility] Comment on above: Performed By: #### 1 6650696, 8609278502, 8301784740, 7932471, 8347390, 9326265052, ####[facility] (DEFAULT)[address] [place] [address] 81431 MCV (RBC) [Entitic vol] 77 fL Low 81-[address] [facility] Comment on above: Performed By: #### 1 1813024, 1962958554, 3445027013, 4446781, 4948740, 8594548639, 2817867406 ####[facility] (DEFAULT)[address] [place] [address] Platelet 254 x10 Normal 138-[address] [facility] Comment on above: Performed By: #### 1 7690102, 5483008271, 5165584663, 3172494, 9151625, 2190042615, 8169286435 ####[facility] (DEFAULT)[address] [place] [address] 97652 Platelet mean volume (Bld) [Entitic vol] 8.8 fL Normal 6.3-10.[address] [facility] Comment on above: Performed By: #### 1 8046687, 5285169602, 7883585567, 3719933, 0686072, 1204250458, 4004952344 ####[facility] (DEFAULT)[address] [place] [address] RBC 5.14 x10 Normal 3.70-5.[address] [facility] Comment on above: Performed By: #### 1 5998440, 1730656985, 1010845786, 7977413, 7007684, 6733980247, 8476799560 ####[facility] (DEFAULT)[address] [place] [address] 32679 WBC 4.4 x10 Normal 3.5-10.[address] [facility] Comment on above: Performed By: #### 1 5169561, 6229004748, 4661375757, 9528196, 6153420, 9352881302, 2727309185 ####[facility] (DEFAULT)[address] [place] [address] 69743 CMP Standardon 07-31-2022 eGFR Non AA >60 Invalid Interpretation Code [facility] Comment on above: Performed By: #### 1 8264488, 0546540256, 3834923353, 9630653, 7126250, , ####[facility] (DEFAULT)[address] [place] [address] 95015 eGFR AA >60 Invalid Interpretation Code [facility] Comment on above: Performed By: #### 1 2893925, 6783512534, 0699766288, 2839201, 9304491, 1635945719, 5177479266 ####[facility] (DEFAULT)[address] [place] [address] 03504 Albumin [Mass/Vol] 4.5 g/dL Normal 3.5-5.0 [facility] Comment on above: Performed By: #### 1 9940891, 7298423839, 2143480822, 9647154, 3842356, 7531218326, 7977287031 ####[facility] (DEFAULT)[address] [place] [address] 19588 Alk Phos 70 IU/L Normal 32-[address] [facility] Comment on above: Performed By: #### 1 4178180, 6707630144, 1955630598, 2407819, 7761343, 6070252277, 7304874984 ####[facility] (DEFAULT)[address] [place] [address] 99864 ALT [Catalytic activity/Vol] 20.0 U/L Normal 8.0-29.[address] [facility] Comment on above: Performed By: #### 1 0512165, 5411385854, 6483159447, 6262887, 2947833, 7974014680, 3125470919 ####[facility] (DEFAULT)[address] [place] [address] 14108 AST [Catalytic activity/Vol] 19 U/L Normal 14-[address] [facility] Comment on above: Performed By: #### 1 5953911, 2771790866, 8911388953, 4718170, 8051363, 1284651443, 1230286562 ####[facility] (DEFAULT)[address] [place] [address] 98925 Bili Total 0.7 mg/dL Normal 0.0-2.[address] [facility] Comment on above: Performed By: #### 1 5434816, 6266923608, 1166757905, 7165566, 9721019, , ####[facility] (DEFAULT)[address] [place] [address] 38280 Calcium [Mass/Vol] 9.1 mg/dL Normal 8.9-10.3 [facility] Comment on above: Performed By: #### 1 6921303, 4499540033, 1972718612, 4469134, 2828672, , ####[facility] (DEFAULT)[address] [place] [address] 32307 Chloride [Moles/Vol] 105 mmol/L Normal 101-[address] [facility] Comment on above: Performed By: #### 1 5337105, 9855044178, 1783431448, 9601247, 2659579, 1952667958, ####[facility] (DEFAULT)[address] [place] [address] 95792 CO2 [Moles/Vol] 23 mmol/L Normal 21-[address] [facility] Comment on above: Performed By: #### 1 4058706, 1850792587, 4072961035, 1926941, 2286756, , ####[facility] (DEFAULT)[address] [place] [address] 10441 Creatinine [Mass/Vol] 0.64 mg/dL Normal 0.30-1.[address] [facility] Comment on above: Performed By: #### 1 4342633, 9690667064, 5753059071, 9303230, 4639200, , ####[facility] (DEFAULT)[address] [place] [address] 77463 Glucose [Mass/Vol] 92.0 mg/dL Normal 56.0-144.0 [facility] Comment on above: Performed By: #### 1 5312488, 9877264345, 7640357003, 7735882, 0554972, 7996234040, ####[facility] (DEFAULT)[address] [place] [address] 68570 Potassium [Moles/Vol] 3.5 mmol/L Low 3.6-5.[address] [facility] Comment on above: Performed By: #### 1 2165779, 8067728496, 2304445296, 7504895, 4322138, 3387898953, ####[facility] (DEFAULT)[address] [place] [address] 94402 Protein [Mass/Vol] 8.0 g/dL Normal 6.1-8.0 [facility] Comment on above: Performed By: #### 1 0053262, 1264727867, 2873668396, 7044171, 6966066, 3544920270, ####[facility] (DEFAULT)[address] [place] [address] 45360 Sodium [Moles/Vol] 133.0 mmol/L Low 136.0-144.0 [facility] Comment on above: Performed By: #### 1 5355105, 7730218184, 2289318815, 2923736, 3185651, 9120591344, ####[facility] (DEFAULT)[address] [place] [address] 30696 Urea nitrogen [Mass/Vol] 10 mg/dL Normal 8-[address] [facility] Comment on above: Performed By: #### 1 5742463, 9307631638, 5376869441, 2711903, 9296253, 9092633584, ####[facility] (DEFAULT)[address] [place] [address] 13415 Albumin/Globulin [Mass ratio] 1.2 {ratio} Low 1.4-2.[address] [facility] Comment on above: Performed By: #### 1 8071656, 7678921514, 3466064400, 2837262, 9586902, 2664639434, ####[facility] (DEFAULT)[address] [place] [address] 59448 Anion gap [Moles/Vol] 8.5 mmol/L Normal 5.0-19.[address] [facility] Comment on above: Performed By: #### 1 4370219, 9369523856, 9587706211, 4993392, 3242892, 7963425768, ####[facility] (DEFAULT)[address] [place] [address] Globulin (S) [Mass/Vol] 3.5 g/dL Normal 1.5-4.[address] [facility] Comment on above: Performed By: #### 1 0065910, 3926898780, 5189276310, 7045148, 8307349, 7568966106, 7557274188 ####[facility] (DEFAULT)[address] [place] [address] 17111 Osmolality 265 mOsm/L Invalid Interpretation Code [facility] Comment on above: Performed By: #### 1 6934399, 7760019637, 1710709238, 7435510, 2711954, 2146487492, 1906128833 ####[facility] (DEFAULT)[address] [place] [address] 96014 Urea nitrogen/Creatinin e [Mass ratio] 15.6 mg/mg Normal 4.6-16.[address] [facility] Comment on above: Performed By: #### 1 9989736, 2575495300, 2382308289, 2000472, 5846111, 2152045023, 2028753627 ####[facility] (DEFAULT)[address] [place] [address] 60805 CRPon 07-31-2022 CRP 0.6 mg/dL High <=0.[address] [facility] Comment on above: Performed By: #### 1 9207840, 3600342905, 8810567221, 1656362, 2362940, 8502216496, 0397456430 ####[facility] (DEFAULT)[address] [place] [address] Abdomen/Pelvis w/ Contras ton 07-31-2022 CT [...] MD 07/31/22 12:29 p Technologist: Natalia JI [facility] Comment on above: Order Comment: IV on ly ED Clinical Summaryon 2022 ED Clinical Summary [facility] - Emergency Department [address] [place] [address] ED Clinical Summary PERSON INFORMATION Name: SHEYLA LEA Age: 17 Years Sex: FEMALE : 2005 MRN: Acct#: Visit Reason: Abdominal pain; ABD PAIN Arrival: 07/31/2022 11:11:49 Discharge: 07/31/2022 13:07:00 LOS: 000 01:56 Check In: 07/31/2022 11:11:49 Checkout:07/31/2022 13:07:00 Address: [address] [place] [address] PCP: KEVIN STOKES PROVIDER INFORMATION Provider Role Assigned Unassigned KATHLEEN LUNDBERG ED PA 07/31/2022 11:14:51 Gila Solis [employer] MAINTAINER Nurse 07/31/2022 11:22:38 VITALS INFORMATION Vital Sign [...] - pharynx pink and moist. NECK: -Supple (wyei-js-ajnam): non-tender. CARD: -Rate and rhythm: Regular -Edema: [...] at 0.6, (more content not included)... Normal [facility] ED Note - Physicianon 2022 ED Note [...] - pharynx pink and moist. NECK: -Supple (imxr-uo-mqjov): non-tender. CARD: -Rate and rhythm: Regular -Edema: [...] 20.0 IU/L (more content not included)... Normal [facility] ED Patient Summaryon 023 ED Patient Summary [facility] - Emergency Department [address] [id number] PATIENT DISCHARGE INSTRUCTIONS Patient Information Name: SHEYLA LEA Age: 17 Years Date of : 2005 Reason For Visit: Abdominal pain; ABD PAIN Arrival Time: 07/31/2022 11:11:49 Primary Care Physician: KEVIN STOKES Attending Physician: Ean Solorzano MD Comment: Visit Diagnosis: Diagnoses This Visit Abdominal pain ([id number]) Abdominal pain (R10.9) Elevated blood pressure reading (R03.0) The Pharmacy at [facility] is open Wednesday through Wednesday from [...] alcohol and/or drug addiction problems; contact the [facility] 07/12 Crisis Hotline -Text 6ZFET ph [phone]. If you received any narcotics, sedation, or [...] legal documents With: Address: When: KEVIN STOKES [address] [place] [address] [phone] Business (1) Within 2 to 4 days [...] and treatment you received today in the [facility] Emergency Department were for an urgent problem and are not intended as complete care. It is important for you to follow up with a doctor, nurse practitioner, or physician?s medical receptionist medical assistant for ongoing care. If your symptoms [...] so we can reach you if necessary. [facility] Emergency Department has provided you with a complete list of medications post discharge. Please inform your opal miner/provider of your visit and for further instruction [...] heart throughout (more content not included)... Normal [facility] Extra Greenon 07-31-2022 Tube Collected Yes Invalid Interpretation Code [facility] Comment on above: Performed By: #### 1 [id number], 6324396411, 0075725067, 0804394, 2829863, 1854891406, 6403650660 ####[facility] (DEFAULT)[address] [place] [address] 09696 Extra Redon 07-31-2022 Tube Collected Yes Invalid Interpretation Code [facility] Comment on above: Performed By: #### 1 1680612, 8823238501, 3583575662, 4116797, 0976918, 6093768423, 4660377871 ####[facility] (DEFAULT)[address] [place] [address] 12239 Lactic Acidon 07-31-2022 Lactic Acid 6.5 mg/dL Normal 4.5-19.[address] [facility] Comment on above: Performed By: #### 2 866926 ####[facility] (DEFAULT)[address] [place] [address] 36157 Test Urine 1on U Preg Negative [facility] Comment on above: Performed By: #### 1 [id number], 85190666, 782338767 #### [facility] (DEFAULT) [address] [place] [address] 45209 U Preg Internal Control Pass Normal [facility] Comment on above: Performed By: #### 1 [id number], 25720122, 686495197 #### [facility] (DEFAULT) [address] [place] [address] 18764 UA Upojo9tc 07-31-2022 UA Bacteria None Normal [facility] Comment on above: Order Comment: Urina lysis Microscopic order added on by [employer] Rules system. Performed By: #### 1 [id number], 75062736, 797737191 #### [facility] (DEFAULT) [address] [place] [address] 11163 UA RBC 0-2 [facility] Comment on above: Order Comment: Urina lysis Microscopic order added on by [employer] Expert Rules system. Performed By: #### 1 884476288, 72272670, 232176932 #### [facility] (DEFAULT) [address] [place] [address] 53154 UA Squam Epi Rare [facility] Comment on above: Order Comment: Urina lysis Microscopic order added on by [employer] Expert Rules system. Performed By: #### 1 [id number], 38335147, 572672480 #### [facility] (DEFAULT) [address] [place] [address] UA WBC None Seen [facility] Comment on above: Order Comment: Urina lysis Microscopic order added on by [employer] Expert Rules system. Performed By: #### 1 [id number], 72910814, 887068542 #### [facility] (DEFAULT) [address] [place] [address] UA w Culture if Ind Standard on 07-31-2022 Breakpoint UA [facility] Comment on above: Performed By: #### 1 [id number], 85467694, 065528292 #### [facility] (DEFAULT) [address] [place] [address] 84165 Color (U) Yellow [facility] Comment on above: Performed By: #### 1 [id number], 03594760, 496698845 #### [facility] (DEFAULT) [address] [place] [address] 09567 Culture? No [facility] Comment on above: Result Comment: Resu lt created by rule GL_MAGR_ADD_UA_CULT Result created by rule GL_MAGR_ADD_UA_CULT1 Performed By: #### 1 [id number], 34670755, 541523210 #### [facility] (DEFAULT) [address] [place] [address] 32789 Glucose (U) [Mass/Vol] Negative [facility] Comment on above: Performed By: #### 1 [id number], 48074970, 447593732 #### [facility] (DEFAULT) [address] [place] [address] 05924 Ketones Ql (U) Negative Normal [facility] Comment on above: Performed By: #### 1 885063243, 94949792, 923381488 #### [facility] (DEFAULT) [address] [place] [address] Micro? Indicated Invalid Interpretation Code [facility] Comment on above: Result Comment: Resu lt created by rule GL_MAGR_ADD_UA_MICRO Performed By: #### 1 [id number], 68013645, [id number] #### [facility] (DEFAULT) [address] [place] [address] 11906 UA Bilirubin Negative Normal [facility] Comment on above: Performed By: #### 1 [id number], 50910620, 113846966 #### [facility] (DEFAULT) [address] [place] [address] 23879 UA Blood SMALL Abnormal NEGATIVE [facility] Comment on above: Performed By: #### 1 [id number], 10607586, 007111798 #### [facility] (DEFAULT) [address] [place] [address] 87103 UA Clarity CLEAR Normal CLEAR [facility] Comment on above: Performed By: #### 1 487164910, 78039704, [id number] #### [facility] (DEFAULT) [address] [place] [address] 25255 UA Leuk Est Negative Normal NEGATIVE [facility] Comment on above: Performed By: #### 1 387172984, 84723060, 456741366 #### [facility] (DEFAULT) [address] [place] [address] 60588 UA Nitrite Negative Normal NEGATIVE [facility] Comment on above: Performed By: #### 1 610289465, 91027935, 191196314 #### [facility] (DEFAULT) [address] [place] [address] 14693 UA pH 7.0 Normal 5-[address] [facility] Comment on above: Performed By: #### 1 [id number], 83306660, 586268231 #### [facility] (DEFAULT) [address] [place] [address] UA Protein Negative Normal NEGATIVE [facility] Comment on above: Performed By: #### 1 [id number], 20387541, 288182147 #### [facility] (DEFAULT) [address] [place] [address] UA Spec Grav 1.010 Normal 1.001-1.[address] [facility] Comment on above: Performed By: #### 1 [id number], 71182965, 820234387 #### [facility] (DEFAULT) [address] [place] [address] UA Urobilinogen 0.2 mg/dL Normal 0.2-1.[address] [facility] Comment on above: Performed By: #### 1 [id number], 74787461, [id number] #### [facility] (DEFAULT) [address] [place] [address] 14806 Urine Source Clean Catch Normal [facility] Comment on above: Performed By: #### 1 005805343, 77071612, [id number] #### [facility] (DEFAULT) [address] [place] [address] Coding Summaryon 07-11-2022 Coding Summary HTMLBase 64 DyshucieQZl3uUu+PGhlYWQ+PE1 AJNMaH53ltBElyQ5MD5gNVI3OVK KOOFPIMB2DKP9lsUX0UNnsC4Xjz iAv MnmyfSRkYL00MEb2XDJ8hWpdUMi fgV5buGXhB7e7PlRtIF78iN86CC lcMIVkLvJ4GcUiwupqaROe K9lvEaCzsCQgEpk+PHRhYmxlIHd mNPJrSWytCIZcTaHwpQpsIU8gKr 9yZGVyLWNvbGxhcHNlOiBj q6aiAVZlMOdzDT5cpYywR4OfuXI 5QUQdn9l5Fu38mKG+KUEcWUG1qT uqSByxc708GxJag0hjBDR5 uFLkCYmxHVJ1D47sl6O9ABSlCWE zTWY6oXK6gA6qkPzgwdubZ5DvhW BgQnA0JXT3rSAtlV7vjWcv gyaxbJ9mIsf+K62TEI2TIVHFWD3 FMhe6D0NiLtadiNE+FW08WIDxOS 84mFAniCQur3ispWl9XtPf DXPkTJC6uSluMKjel5EvRFDoG37 tqLCdc2Q2CGAyeGamtZVuLdWaoX I1pX2fKOtlgphwv5esrdon Ucaom2gadk11jH88V66xXSioYVQ mWRT1QFUqXLVfmMfajv3khU9cXc 8+RAmwt8xvb0lgbPm3LxVy QVFiudMlsXfeMJM3e8EvDn55E9X gmDqju0MqLak3uk07pTYsd0U6sS Q5VFdlIINgdC7vCEpmGvJ1 SSHzZzZodG24cHPjEIlzQr7ajUd gqVwjTC4dBYOqjknsUYUuiL7hQI SeiHLaeYqiJG2wYKJxdhxf d903BiZlHPJ2MJZrhSFfY8UbpL2 zXlSqYKTbKXKbX3FdhHUfLThlY0 40PLomPsL6VRSwbbKuM1La HMXytGisWuR0l9J5Bm0Vo0Kulwt xLAN2AJauLDHtWyS3KjSeEkX8C5 HbRly7UMQvuAadIN4mW7Gl CUVmrkxaurrwmXZ1IFBkFQUqwX7 0vIUrCDiiWl3sl5G4h473KFDhYU ShsR53It5ruZbzAKSfqJEF mD9cvttej3hhrbqbAsCsDXPoQFn 6PId1PWSjiYevRqUsHDI6UeX7MO X5iYKrxV2leQnkrdvsqJ7l Oyc+T21izP7tYCA3CBC7gcspPEV dhjHgXN60KR08S3HdDeykhDUblD U+NRAizvObsFcjGZ2kJrDd h3reb2YjIFdsT6RiBKMhLIjcSyn 8XYRzJRL1qQB6vW1lULQvMHyim4 L0kAW0U5BshxHloa6eh9xk FZDyWToeA67kqICqe2W3NEFgsIN 5ACNrwDulMsFhsP36Fbg+PGNvbG tup8JwMqdxh8dhn1zazRn0 JmMlRYVbtrOvyRwnKDB6w2BgBo4 7N54eCAvhAHNdBRIiAWAoTHNqzW lyyh8exY8fHb8+PGNvbCB3 lJR2iS8jVTGjVcO2KRdkN856JlA juSJfOgiaf8vgo3dirLx0EfFzKS HdtnJdmOjvNEX0i5HvJc67 E51hNBbxPZBtLRZzOCMiKJMuzGi bhc4hwA7dMr8+GT6pp2izaz49lX 48dHI+MOAbSAO9lMzyDEcw XEAuqN2aEPvjVhM9ENHhHkVwfA5 2kXEmSCbmNc4htFbemPejSX9cLB Msjytua553SuPmb8arKSAv hQBjOFjmGGM7D36rm4Z2PJEtPHN lXSD3jBO3nD7ltQvszwyixMCyjC kpveHciSzxREtjMKpuY273 IHRvcDsnPlBhdGllbnQgTmFtZTo 8K3EdFga0XWBxoOjiTD6mfLCjFH ziIp6guQpzuTyxLP0uXXQr yjixr766EcWfd2psDIWlmUVuJKb xPGO5L56hy8A0PKEiZGQbNDY6iM G1rK8lpVbxcpwmhTKbkIry qqAwsTvmOGjbDCvhQ096VFBikKs kWcHayfLwGLNyyBM1PA29DJ31oR Qea4N0yGL0N5FkHAVsfqjb ykbraHR7UDLgTMJarL31Ap5tpZt hUb0lBGPpIDH8RKMqgOHeW9ZpoF 5xMbWcDXTaZPXjE6XdaECr DZbhE961TAybAnW5KFHhsnEbH9D bHYThrJmhZrG3l5C9Nn3WS2T8ZO 93RQ88sRYfl4O6iMW4I3Pb CNMblbwefijurNW5NURmUUShpK3 4Mt3xeEtnFc8fEWJpZSI4XOUahP OsC6LynC1gUeOnULJkHOMg M4JyoXLbBAdbE876LFvcNvY1YZO arfCuI3WvKQXxpNyoJaE9v6R3Mp 2WXSv2XE98HE25rKNyx2X1 yMW4V6DbGZEbutukrrcrdSP8RCI eRDHxrH35Uw9dhVlgOd0wPAIfTW N3JOSpgZRiM2MgfO3iWfLz DWQaJWUdN4LtaGJvQZcbS893WUm aBwA6OTCzipTrF2WsVJVzvKgeQj Y3o7R6Fy8EXGHiAF87LSS0 tJU8UM72RQ18X7QcXjyizDPgeVL +PHRhYmxlIHdpZHRoPScxMDAlJy HstXwbTL9hPg3aWKHhPRJw zFkeeGMdJgEka4axJRSeMOzzCT4 rmYvpF3CreSE0OMFms8f9Cv66Z7 1uK8VsrAC+CIFqfLO5dAC4 dG4vRtEeEwE9ENcbQ814PhQyhQQ rLmjkk7yqk5jmtJh8YcX6GQClbv DrmGamJHZ9f7TgIp96I82l IHdpZHRoPSIxNSUiIHZhbGlnbj0 fqN4yVv9+PDBljQX3bVK5pW2rHg SeVhB6PFxsA413LbZqkTTj Befat6twc7cxnBk1MsMyUXFzxiR duEveEAE1v9UgHm63V7MuvKtgs3 WuHly9lf39tNQhn2H4zAQ5 M2NaTLWraxgtgEMfcIinDZ2fXVI wepibGPDdvK9uMEUjF4t7TvLtGj X0EZfgI4XbfdW3BXSsvTQo ZOqqELR5M06ne8Y4MSEmOFMqOUW 7fKY7kX4ayPqybwqxfPWthIvxsb JfrVmgVSttVYhbN087VHDy lFjjUGSpgG6iWSXphUSvnQtbTE1 lVGAhhojjQknPGoETT3KOBFURRW 1IWWLWV3VREHuKJEJIWMMW RTwvdGQ+SAKrIOH2rVlsFIahOJQ azK3yDPYrZ2y2UkToOoH0VRecB9 ShVPSxmsrzHu60jI4wFxPm ZgB3EIhuA9SnnsU7QZJecCSpUXs iOTQ7I78un2W7MJUyJCTvTDC1bA K6yY0igGrlaixwwLOksQjy bkAowFayBAizRIvvI441HWShhVa jPzQkNhC6UsIrKEU9X6ErEio6MC XudJiyEX4mxVBsEVroSf2q yOozkMelXW4pIIFtgweoFUVfyG5 zAHTumIQkqSgfMJ3rHRTdjskeb7 62JmOkTYL9BERqmGBmC2Qs uZ3hZsWrSXCiKQWzJ9LenPFrPOo nP423QSuaIxN4CUQpzrViR9RtYM XmrSqyZfD6o8E7Ei6lIAZI ZWFyczwvdGQ+LVZiOVP4hFmgNOl vGDZwqV5jBTRmQ2u6NsFlLhQ2KE mpF5XyZBVwllbjFx54eS3e FpHvHaC9WHttF0PstgA7UNEcxPY wOKvrXZA4H28ey0N6UTWjSCXmIE B7qWU2tT0piUwgvivssWRd jPbhyuHajUcnFMuuWVxlG193FJS vcDsnPkZFTUFMRTwvdGQ+PHRkIH I0rOukNQoeCAKhyA5hTOUr V5p4TvLqQqH7CQagH1RxJDEqjft gQl70eN9jPkYeZvI2EZevW6Degt A2ZHAppUScCVilITW9O16s i9W4KAZcVVXgVBJ8xIB1nR0gwOu nbjogbGVmdDsgdmVydGljYWwtYW qqN972DAEnaHlwMq0SMR98 XF00W4ZrCnmgkIEsjCZ+PHRhYmx lIHdpZHRoPScxMDAlJyBzdHlsZT 1bGn5nYRKxRJSxxCpokIIo JeYzg0vxFVLkBIhsYO5dhJqwF4W spJD5BSSok4b3Qo51K58fX8VkeA A+TGBfwVS7bVW9aO0uDxIm JdS6TStuE783QtSulKHfKrvwi1x fm5lixJl1NiPeHZEtbrAajWodYK V0g6QaSk38Q97mBZtvJHQd FBWrSCLaURWonAgaje6onT6cWt7 +RNWnqXT1iKF4eA5wXpXyNbO1SF fsA642OwUjcMCaTyfxC52r T2WnaLJ+NVPiDsf0ZEHfrXicTN2 qzBVaCCvtWc6qWJN6OqKcWbSnZF hrL2EdPIWdrypvrhijjLR5 NUEiABTcfI74Jt9suGpoJm1uYEO bFCS3JXLlgBErQ9MdtP0uGlAuXO GfOFDpS6JmcDYoOWavQ453 ATzbBrW3YWZstaXwT2DpGOYwrWe cZhR6z5T4Yx7FcJgcyHYlGY6lFj ZtWNg4E8LgWwo7QQYzbRnn JO2nwGXaYRccAc8oxRpyuIrfVP8 hGHEngkjiz358XwRqu9pxVOGcwB LuIDbnFSW4O67fj1R2POCw IQYxATI3eQG1zL3jwYjsslihdKM rdMcvibBtpQokXGyhNGxfX513OW DamVjmPsUPQza0N3SlBue4 VJHywYcmFO0qtDFcDScbOy5soMl fuNsoSN5fPZLszpiku819AlOvh7 jrQKQaoNDtRFaiTWI0Q33j q9E0ELJbHDWfPSZ8pYZ7gQ3xyWp nbjogbGVmdDsgdmVydGljYWwtYW uyJ019NRRitLcrCg6TOtq9 U5XtIda3RGXgdGudWL3wrFCnGMm aTh0pgMbiqTigPX7eTMCixagoo3 36VvLcz7uiBAYhbDWfKGnn WLI1E68wz4T0UOPkEKNgQYO5mFN 3qY2xaUibffksjSGjlJutkxTsaV xcCIcvQGyeN598NCNlqFpc PlBheWVyOjwvdGQ+ZO96mz36O7R cJojyHzl3LMXzVVR2oOJ8zL7tLZ VrJTntv4I5gNP1E2SjpvYm ci1 (more content not included)... Normal [facility] ED Clinical Summaryon 2022 ED Clinical Summary [facility] ? Urgent Care [address] [place] [address] [id number] Clinical Summary PERSON INFORMATION Name: SHEYLA LEA Age: 17 Years Sex: FEMALE : 2005 MRN: Acct#: Visit Reason: Ear pain; BI LAT EAR PAIN, FEVER Arrival: 07/08/2022 10:52:39 Discharge: 07/08/2022 11:26:00 LOS: 000 00:34 Check In: 07/08/2022 10:52:39 Checkout: 07/08/2022 11:26:00 Address: [address] [place], [place] [id number] PCP: KEVIN STOKES PROVIDER INFORMATION Provider Role Assigned Unassigned Arvind Doherty PA-C ED PA 07/08/2022 10:58:02 Levy Bee ED PA 07/08/2022 10:58:39 07/08/2022 10:58:42 Zara Fleming [employer]IN[employer]ER Nurse 07/08/2022 11:09:15 VITALS INFORMATION Vital Sign Triage Latest Temperature Tympanic Temperature Temporal Artery Pulse Rate O2 Sat 99 % 99 % Respiratory Rate Blood Pressure /60 mmHg /60 mmHg MEDICAL INFORMATION Medications Given: Allergy Information: No Known Medication Allergies PHYSICIAN DOCUMENTATION DISCHARGE INFORMATION: Discharge Disposition: Home Discharge Location: Home PATIENT EDUCATION INFORMATION Instructions: Otitis Media, Adult, [id number] Follow-Up: With: Address: When: KEVIN PAMLORISANDRAZaida [address] [place], [place] [id number] Business (1) Within 5 to 7 days DIAGNOSIS: Bilateral otitis media Patient Understands: Yes - Patient/family/caregiver verbalizes understanding of instructions given Comment: Normal [facility] ED Patient Summaryon 023 ED Patient Summary [facility] ? Urgent Care [address] [place], [place] [id number] PATIENT DISCHARGE INSTRUCTIONS Patient Information Name: SHEYLA LEA Age: 17 Years Date of : 2005 Reason For Visit: Ear pain; BI LAT EAR PAIN, FEVER Arrival Time: 07/08/2022 10:52:39 Primary Care Physician: KEVIN STOKES Attending Physician: Levy Bee Comment: Patient Education With: Address: When: KEVIN OROZCOGERMÁNZaida [address] [place], [place] [id number] Business (1) Within 5 to 7 days [...] Follow these instructions at home: ? Take mrqq-nnt-uqzjsqf and prescription medicines only as told by [...] provider. Document Revised: 08/11/2021 Document Reviewed: 08/11/2021 [employer] Patient Education ? 2021 [employer]. Medication Information: The exam and treatment you received today in the [facility] Emergency Department were for an urgent problem and are not intended as complete care. It is important for you to follow up with a doctor, nurse practitioner, or physician?s medical receptionist medical assistant for ongoing care. If your symptoms [...] have provided (more content not included)... Normal [facility] Urgent Care Note- Provideron 07-08-2022 Urgent Care [...] been selected or recorded.. Surgical history: Myringotomy ([id number]). History of tonsillectomy ([id number]).. Family history: No family history items have [...] Impression and Plan Diagnosis Bilateral otitis media (EVZ16-MT H66.93, Discharge, Medical) Plan Condition: Stable. Disposition: Discharged: Time 07/08/2022 11:20:00, to home. Prescriptions: Launch prescriptions Pharmacy: amoxicillin-clavulanate 875 mg-125 mg oral tablet (Prescribe): 1 tab(s), PO, q12hr, for 10 day(s), 20 tab(s), 0 Refill(s). Patient was given the following educational materials: Otitis Media, Adult, Wvxj-sa-Idun, Otitis Media, Adult, Oywi-ug-Divi. Follow up with: KEVIN STOKES Within 5 to 7 days. Counseled: Patient, Regarding diagnosis, Regarding treatment plan, Regarding prescription, Patient indicated understanding of instructions. Orders: Launch Orders Miscellaneous Request: Excuse from Work/School (Order): 07/08/2022 11:21 EST, No work or school today.. [Electronically Signed on: 07/08/2022 11:28 EST] Arvind Doherty PA-C [Verified on: 07/08/2022 11:28 EST] Arvind Doherty PA-C Normal [facility] Recordon [address] Urgent Care Record [facility] ? Urgent Care [address] [place] [address] PATIENT DISCHARGE INSTRUCTIONS Patient Information Name: SHEYLA LEA Age: 17 Years Date of : 2005 Reason For Visit: Ear pain; BI LAT EAR PAIN, FEVER Arrival Time: 07/08/2022 10:52:39 Primary Care Physician: KEVIN STOKES Attending Physician: Levy Bee Comment: Visit Diagnosis: Diagnoses This Visit Bilateral otitis media (H66.93) Ear pain ([id number]) If you received any narcotics, sedation, or [...] legal documents With: Address: When: KEVIN STOKES [address] [place] [address] Business (1) Within 5 to 7 days Medication Information: The exam and treatment you received today in the [facility] Care were for an urgent problem and are not intended as complete care. It is important for you to follow up with a doctor, nurse practitioner, or physician?s medical receptionist medical assistant for ongoing care. If your symptoms [...] so we can reach you if necessary. [facility] has provided you with a complete list of medications post discharge. Please inform your opal miner/provider of your visit and for further instruction on these medications. Any specific questions regarding your chronic medications and dosages should be discussed with your primary care physician(s) and/or pharmacist. New Medications [id number], [address], [place] [id number], [phone] amoxicillin-clavulanate (amoxicillin-clavulanate 875 mg-125 mg oral tablet) [...] in the (more content not included)... Normal [facility] US NECK (POC) HNI USE ONLYon 05-28-2022 [facility] US THYROID/PARATHYROIDon US THYROID/PARATHYROI D * * *Final Report* * * DATE [...] 2 points Echogenicity: Hypoechoic, 2 points Shape: Ocwyi-gohk-advc, 0 points Margin: Lobulated or irregular, 2 [...] WHICH MAY REPRESENT UNDERLYING DIFFUSE THYROID DISEASE. Email Operations Manager: PSCB Transcribe Date/Time: Apr 19 2022 8:34A Dictated by : UMU WHITAKER MD This examination was interpreted and the report reviewed and electronically signed by: UMU WHITAKER MD on Apr 19 2022 8:40AM EST [id number] Normal [facility] Cholesterol in LDL Direct as say [Mass/Vol]on 04-15-2022 Cholesterol in LDL [Mass/Vol] 95 mg/dL Normal <110 [facility] Comment on above: Order Comment: Harriet abernathy Type: BLOOD SPECIMEN Ordering Facility: [facility] Address: [address] [place] [address] Result Comment: <110 mg/dL, Acceptable 110-129 mg/dL, Borderline high >129 mg/dL, High Performed By: #### H DL1, 53459-1, 3016-3 #### [facility] CLIA [id number] [place] [address] [place] Cholesterol in LDL [Mass/Vol] 95 mg/dL <110 mg/dL [facility] HDL CHOLESTEROL BLDon 2021 Cholesterol in HDL [Mass/Vol] 42 mg/dL Low >45 [facility] Comment on above: Order Comment: Harriet abernathy Type: BLOOD SPECIMEN Ordering Facility: [facility] Address: [address] [place] [address] Result Comment: >45 mg/dL, Acceptable 40-45 mg/dL, Borderline <40 mg/dL, Low Reference: 1. Expert Panel on Integrated Guidelines for Cardiovascular Health and Risk Reduction in Children and Adolescents: National Heart, Lung and Blood [place]. Pediatrics. 2011: 128(Suppl 5):T291-704. Performed By: #### H DL1, 31381-8, 3016-3 #### [facility] CLIA [id number] [place] [address] [place] Cholesterol in HDL [Mass/Vol] 42 mg/dL Low >45 mg/dL [facility] HbA1c (Bld)on 04-15-2022 Average glucose Estimated from glycated hemoglobin (Bld) [Mass/Vol] 94 mg/dL [facility] HbA1c (Bld) [Mass fraction] 4.9 % 4.3 - 5.6 % [facility] Average glucose Estimated from glycated hemoglobin (Bld) [Mass/Vol] 94 mg/dL Normal [facility] Comment on above: Order Comment: Harriet abernathy Type: BLOOD SPECIMEN Ordering Facility: [facility] Address: [address] [place] [address] Result Comment: eAG: (Estimated average glucose) is a calculated value from HgbA1c and is physician relations representative of the average blood glucose level in the last 2-3 month period. Performed By: #### 5 5454-3 #### [facility] CLIA [id number] [address] [place] [address] STATES [place] [facility] HbA1c (Bld) [Mass fraction] 4.9 % Normal 4.3-5.6 [facility] Comment on above: Order Comment: Harriet abernathy Type: BLOOD SPECIMEN Ordering Facility: [facility] Address: [address] [place] [address] Result Comment: Amer ican Diabetes Association guidelines indicate that patients with HgbA1c in the range 5.7-6.4% are at increased risk for development of diabetes, and intervention by lifestyle modification may be beneficial. HgbA1c greater or equal to 6.5% is considered diagnostic of diabetes. Performed By: #### 5 5454-3 #### [facility] CLIA [id number] [address] [place] [address] OF [place] T4 FREE/FREE THYROXon 2021 Free T4 [Mass/Vol] 1.1 ng/dL 0.8 - 1.5 ng/dL [facility] T4 Free SerPl-mCncon 022 Free T4 [Mass/Vol] 1.1 ng/dL Normal 0.8-1.5 [facility] Comment on above: Order Comment: Harriet abernathy Type: BLOOD SPECIMEN Ordering Facility: [facility] Address: [address] [place] [address] Performed By: #### 3 024-7 #### [facility] CLIA [id number] [address] [facility] [address] [id number] [address] [place] TSH BLDon 04-15-2022 TSH Qn 1.950 m[IU]/L 0.510 - 4.300 mIU/L [facility] TSH SerPl-aCncon 04-15-2022 TSH Qn 1.950 m[IU]/L Normal 0.510-4.300 [facility] Comment on above: Order Comment: Speci men Type: BLOOD SPECIMEN Ordering Facility: [facility] Address: [address] [place] [address] Result Comment: If t he patient is , TSH reference range varies by gestational period: First Trimester (weeks 9-12): 0.180-2.990 mIU/L Second Trimester: 0.110-3.980 mIU/L Third Trimester: 0.480-4.710 mIU/L Jose Fsiher, et al. A Practical Approach for the Verifications and Determination of Site- and Trimester-Specific Reference Intervals for Thyroid Function tests in . Thyroid, 2019:29:3:412-420. Loc E, et al. 2017 Guidelines of the [place] Thyroid Association for the Diagnosis and Management of Thyroid Disease during and the . Thyroid, 2017:27:3:315-389. Reference ranges were not locally established for this patient's age group. The normal values are based on the following source: Jayla W, Tim V. Reference Ranges for Adults and Children: Pre-analytical Considerations. Celect Performed By: #### H DL1, 36988-6, 3016-3 #### [facility] CLIA [id number] [place] [address] [place] Coding Summaryon 02-24-2022 Coding Summary HTMLBase 64 QmzhyyxgMEt7lDs+PGhlYWQ+PE1 ZCLFhH21waOJtgF1QI7rUBQ7GWQ CZCKDMEI1AWK2vbRT8NJqsI5Xra iAv VzfdoWFmIJ56YHg0VOC2zMrnGJw ywA8zaBCjH1z3JvIwAO54nM79HR syEAWuVjD7GgOoxkogrTWq O5orNzPhcNPlZhd+PHRhYmxlIHd gGYUgUAnrOFWpInTakHpcDY2rQe 9yZGVyLWNvbGxhcHNlOiBj b8czMNLzBVwgHQ2nsKjaY8NszVN 4HCPil0m8Yu00tLZ+DDWxGRU0iP umQFjzc866ZcCwd0rcQED8 pNPoEPleISL9S14al5J9JNJwMSF oHSQ9bCN5tL9qwFyrbcscG5XspN SuOsA3TLQ4aSIjzL1mlZho uayksN9gLda+K92KJK8HZXXKHG3 UBqv7O7DrLtpanQE+CN65IWBmBY 71aDTkaKWda6uwlQf3TqVs GYHvYML0iSonZYeml5XmXDQlA23 iyKZgb8I9VHJuoTmozMWpSoYnpV T0kB4wSRdoczylx5ecrljo Muupn1owao30lS67S32kCGsxQSU fJXD3KGDfBUNpgMlixq7qaR3rNn 8+IGslw7bqx7joxEg2AxAz CYIqnlJvsHprAVS5n0PzTh52W0J euVrxm5AaAzn0ze83hPTqf5B4zV K2QEksLCDizL2rCSvrJdW2 CYWmVeEkyG58rAVyIXtgSl6nnSu duKfvGE5fZMDlshpcWJCamI2lLH VarJGlfEenCO7lIKMfjyak j681JhIaDHO2TJLlhWZaT3YyiG3 fYoFgMELnFUKxJ1GeeJDzLVhbN0 35TExeIkI3NBWjepHtA8Zm JRAfoFiaHxU5f8R9Sl7Tq2Xtigm aHIW7MTlgZSKpJsCgHiFsXoV0X6 MaEqn7MRDtsWurWW9eR5Rs MBFogkhmuqmgjXP1DVPrSYBjpB9 9xEEjZYozHx6ey3V8y788EZYrDM LquP68Kd6akFsyOSAfrZFA tT6sloxvw9hpljlpSlRyRBBkGAa 5UZr9SYBhyOzmXfRyEJG0EtM4QI Y0qXVasS7zaJnnmgryyS6d Oyc+S41eqC0jDZV2TYB7qoqvECU jglUwRL57KN20X1BjTknaxUYygA U+RADdhtGkhGydHA6bLwGm p8yij9KsGNebT4NyIDDsQLgsJwg 7AELmJQM2kIG9pB5qNCWrEBeje4 K9pTL2E6JlyyClow2bm3fw BOQfGQpdM04rtIHxh0Z3LWJxrLM 1IFOcqAskGkFwdS94Bqy+PGNvbG qit4WeGgekc3jix2sucCu0 YhXlRAMcknEefJdkXOP4d4KrYm0 5C71rHSgpCMSrTYFiTIDcUDVmqP dqts3dsQ6tNt1+PGNvbCB3 tHX3uZ6qCDWnLmZ1PBipA960SsQ suSQtTvxxc3wum9lskRx1NsTzAY DsofHjfLimELX7c6UwHf32 K31jKUjhVULiEGBbKCZpRBUvmVj pak8miN8gZd1+CE7yt3gobx95pM 48dHI+CSCqASC7yJfjZYkb IEWxfT0aPOlhCiB3OONlWvLlhM0 4dXPeLHlwRr2iyDuntCsnMZ1nTB Fclxlfl596TtTkb5tzDYCo eBGqXLyoAVK3J91oh0V7YAXoBMY vFNJ0sPJ9eL2xtZoxcazfgKEvaE emmgQlmGziBKyyYPsgE338 IHRvcDsnPlBhdGllbnQgTmFtZTo 7H9QhYan0PXPntBadWN4obKGpVF plCf8ruPgxwIyrRR9jDLVg xaspe351VpSbq4boKLInkBVhWYq iGGH5S15aj5Q7UKDzTWZzZBB1vI U2lO0wtHeyijathKEpuEfl ftIxjLufCWdjGZfnC090CLGtjGn vPsRookBsAYDbvET3AY23KR16pL Tlz8N5kZP5X2RiMIEbykkz akmdgZQ3CFSjHJFyiE59Mu1kcPw wXu7oAXSdVUZ7WPGdnOXaD3SzzM 6vYeUsETCzBNMtA9BubDZm POuhV328NCirIbU9XOQcgtJdQ0L pEGFepGkpRkT3d8X8Kg2EB4W4IW 25LI54qWKcg0I8vXX7O4Nn GBAtggawwelpeFY4HZWpKRXcmN9 3Uj8pvQkrGf5sFCEbXFE7NCSsgJ XvS8CqmN0wZoTbHLVxUHJj P3CvhUOxKFcvH633ATgcJiN5KSC clyIvY2XaESUizAtmWnC3d0H5Tk 1YXAd4JG29XJ72yLTmq4V0 rHW8B5LnBOOweswikkgkcSE0NHD qYLVczW76Yt3zvHkoLz7sOIMyQT W3ILFwqMTzE8ZxnY2fBpMm MKCbXRGtT5HscWBfVOxyF775UAp mZiW9UOQwlqHzA8MiLVTbkOwsRy N1t9S7Le5BETPwDN17XOC5 gKW2PO24IS69W7NqTvlfcVIvvPO +PHRhYmxlIHdpZHRoPScxMDAlJy PncBxuND2vMb5sZSGoDVZb rHmtxQWqJbTfa2qoOULjIFnsYZ0 vrBtiI0SdsZN0SSIux8t0Nd83X5 8aS5KcoFS+MUDpsTG3oKH3 cO4bLtMcIbU4OBlkC091WvXpqHM hDeuux3wpl0tqaPh8BtH4JPFpkr NkfXxkSOV4x8YbHz41W15g IHdpZHRoPSIxNSUiIHZhbGlnbj0 muL6kBz0+QQGigLB4rNN2vZ9cMg KfAvM8GSbpO497EiWmaOYm Eyztj0pgc4vbzHp1JtCyDNOuscO bfVkzTLM3c1UjZl61P3YekJmbw3 BwRyp3xo68pWUxg6R7kHZ4 D3LhQEIrjncnaZAfsEeyVT2hCHR tvpzbGGKacW4kASSqJ0h8XzVbYw I1AVfnU6PskkW1DGJtnXPs CLjlELR0E54el7Y5XBYzHHUbSCO 6oJM0aT2sxHoqqwnqcKTmaWdtyz PaoMncNGuwPWifC332KHOo aMbdDSXhbX8hWUNqfJJjvSjiNQ1 uTTIufugtLjeOAzMXF6BMPBNPCD 9MHZMSZ7VJHNyJDJDBLUSV RTwvdGQ+AIUeSKT4lOqeWWzpTQC qkS1vSKVhZ5r5CoAzGdU2DYzrS8 LjIEIzktwuIq33gQ7sCiPe JnK9SPmcI5NkygD9ASHgxHOjHBi rTEG5R15ts4N0AZHbFDOxSJE5eB U2oE0jjHjhnanjuMKpmFal olBrhNhgPDqyMQtrA497SIKqkPb gPoYlDzL8ByHaQCF6X6FoSfy7JS HsbStrZN0qzPUkBIgwWf6e kSpyhDyrVF5uWWEdjsqqLQOdqZ5 wVFDgyHQarCjwJX2dHIJvsnatk1 79UiHkNKU1DVFxmTHkY9Pi iE8eJhWmGDLqBLCbC0EtnUTgONh gX791ENfmRhI1ZQFyznWnO4BmKB SybZewGvS5a3V5So6jIzCU ZWFyczwvdGQ+NBBvJJI0jUhdUPy yPIZtxP3bZQIdB9w7DnOaCiO4AH poJ7ElHHIsjhbxVn29qH9t QuGhPrV5GKokR0HvkuM8DJXrlLP rGQkvUVZ1G49mn4L2RNSrLTRhNM F5wEC4vA7mxCffbxsmcGKp bFiziwQybJehXXwzLKlqZ726RQP vcDsnPkZFTUFMRTwvdGQ+PHRkIH Q5lNbcYCmaLIGtbQ0oLEXz K5i6DcStLgB0QSkzU5XiPTMwcor eCj00lN4mSlGnVcH3LVdsZ7Nbod J8KETxtBFfAJrlGYA4D68s d1D1WLNmUDZfWWN4oPN2hL2pzMp nbjogbGVmdDsgdmVydGljYWwtYW gmX850WDJlyGaaEg2XQV16 ET38S2AyCgqqqWHhwHP+PHRhYmx lIHdpZHRoPScxMDAlJyBzdHlsZT 6cFk9dQIVxWNXsjApqhAVh BmTfo2olDXEiOAueFR7hwAzhO3B maHV2MSEyj5g0Eu81F00tX3YraT A+DVAqqRD2iGE4qP6fEpLv RtT1ZWveR456QaKabEKtCkcms6r uv0mhgTr6YbGuWCSmdvRkfWppYT N5w2ToAn14B80sXOmwPPWy DQBfRMBySUEnjEybjo9dvY9pNq4 +EJAxjIW5aYF3cD1eEbEcEeZ7GK zbO013AsZvjBSjGxnwI21u X1JlyKI+JTSiJyg7IFFowWxmYA2 gsDGbUXekBt7hVUP6JkNoAqTsMQ fiO7AmBDIhuddedpmlqAY9 NVZuATRzhV01Qm2roKfoLk4fTEE uCSZ2FRRidVNgB0YixG8cMcOqSA WbDCPrT7LyvCAyJKxuV261 DMboBpW7ROPlzdVaG7DvSKLzqYg iTzV1a9L4Bn1InIiwrBLbDL1cHp DgARt2S0CoNlv3SOBvfNrn BE6lnQXzTZvdZt0liOvuhRucAI4 zVEVlpoezi482RdXjr7hyHRUoiA CbXTbkUOP6M33oh6M8YRAv MHDaYVZ2dMA2aA7awMsqzyveyBM npGmxdtQmhCwyNBykEIfdV499UR XgrHjvKdWOLgs6K1CwSpp5 GXGwyGgcYU7vxAIqEDycRs6pyYy buCcqVM3zASBrftqgx881YqSer5 tpMJPuzOArSAhaJYU6X63x w5S8SWJmOWTkEOH7xCP3uQ3erZy nbjogbGVmdDsgdmVydGljYWwtYW soD900FKSugMoqSt9CQpf0 Y4QxZqt6DVCoxBsxAL1uwGSiLBa vFr4aoZgraLryCF4rBLMwsdccz5 77QxVeo2jiSTXfrFYiJTgm VKQ9J25df3F3QEXhGYIePNR5mBW 2vJ2wmJyblbkkjNBwxTrrncCbsI yaWZloOTziX404TVUwbImn PlBheWVyOjwvdGQ+DF51gu64H1W vYmheQux9CLMlPFA3hSO6yH0uDT BkHFlhu0C0aBT1V8DecpIr ci1 (more content not included)... [facility] ED Clinical Summaryon 2021 ED Clinical Summary [facility] ? Urgent Care [address] [place] [id number] Clinical Summary PERSON INFORMATION Name: SHEYLA LEA Age: 16 Years Sex: FEMALE : 2005 MRN: Acct#: Visit Reason: UC - Ankle/Foot/Toe Pain or Swelling; UC - Foot/Toe Injury; RT FOOT PAIN Arrival: 02/19/2022 19:02:05 Discharge: 02/19/2022 20:18:00 LOS: 000 01:16 Check In: 02/19/2022 19:02:05 Checkout: 02/19/2022 20:18:00 Address: [address] [place] [address] PCP: KEVIN STOKES PROVIDER INFORMATION Provider Role Assigned Unassigned Ellen Mac TANK SYSTEMS MAINTAINER Nurse 02/19/2022 19:06:02 Levy Bee ED PA [...] Pain Follow-Up: With: Address: When: KEVIN STOKES [address] [place] [address] [phone] Business (1) Comments: Radiologist interpretation of the [...] pain continues recommended to follow-up with your community living specialist or can follow-up with our local community living specialist Dr. Ramírez's office is located at [address] [place] [address] [address] [phone] Continue on the acronym R.I.C.E. Rest, Ice Compression, Elevation this will help with pain Can ice for 15-20 minutes every 3 hours Can take 600mg of motrin/ibuprofen every 6-8 hours DIAGNOSIS: Ankle pain; Foot pain Patient Understands: Yes - Patient/family/caregiver verbalizes understanding of instructions given Comment: Normal [facility] ED Patient Summaryon 022 ED Patient Summary [facility] ? Urgent Care [address] [place] [address] PATIENT DISCHARGE INSTRUCTIONS Patient Information Name: SHEYLA LEA Age: 16 Years Date of : 2005 Reason For Visit: UC - Ankle/Foot/Toe Pain or Swelling; UC - Foot/Toe Injury; RT FOOT PAIN Arrival Time: 02/19/2022 19:02:05 Primary Care Physician: KEVIN STOKES Attending Physician: Levy Bee Comment: Patient Education With: Address: When: KEVIN STOKES [address] [place], [place] [phone] [facility] (1) Comments: Radiologist interpretation of the [...] pain continues recommended to follow-up with your community living specialist or can follow-up with our local community living specialist Dr. Ramírez's office is located at [address] [place] [address] Continue on the acronym R.I.C.E. Rest, Ice [...] clean and dry. General instructions ? Take smnt-ptx-wdwbzvs and prescription medicines only as told by [...] provider. Document Revised: 08/06/2021 Document Reviewed: 08/06/2021 [employer] Patient Education ? 2021 [employer] Ankle Pain The ankle joint holds [...] your an (more content not included)... Normal [facility] Urgent Care Note- Provideron 02-19-2022 Urgent [...] and ankle pain. States he jumped during mandaen today and landed awkwardly on her foot [...] been selected or recorded.. Surgical history: Myringotomy ([id number]). History of tonsillectomy ([id number]).. Family history: No family history items have [...] and full extension intact pre and post Eovn wrap. Impression and Plan Diagnosis Ankle pain (REJ40-RF M25.579, Discharge, Medical) Foot pain (AXT22-MT M79.673, Discharge, Medical) Plan Patient was given the following educational materials: Ankle Pain, Foot Pain, Foot Pain, Ankle Pain, Foot Pain, Ankle Pain. Follow up with: KEVIN LANTIGUA Radiologist interpretation of the x-rays negative for fracture or dislocation If the pain continues recommended to follow-up with your community living specialist or can follow-up with our local community living specialist Dr. Ramírez's office is located at [address] [place] [address] There is no obvious fracture or deformity on review the x-ray today. Official radiological interpretation will be available in the next 24-36 hours you will be notified of any discrepancy in the interpretation. No weightbearing for the next 2 days, can then slowly b (more content not included)... Normal [facility] [address] [facility] ? Urgent Care [address] [place], [place] [id number] PATIENT DISCHARGE INSTRUCTIONS Patient Information Name: SHEYLA LEA Age: 16 Years Date of : 2005 Reason For Visit: UC - Ankle/Foot/Toe Pain or Swelling; UC - Foot/Toe Injury; RT FOOT PAIN Arrival Time: 02/19/2022 19:02:05 Primary Care Physician: KEVIN STOKES Attending Physician: Levy Bee Comment: Visit Diagnosis: Diagnoses This Visit Ankle pain (M25.579) Foot pain (M79.673) UC - Ankle/Foot/Toe Pain or Swelling ([id number]) UC - Foot/Toe Injury ([id number]) If you received any narcotics, sedation, or [...] legal documents With: Address: When: KEVIN STOKES [address] [place] [address] Business (1) Comments: Radiologist interpretation of the [...] pain continues recommended to follow-up with your community living specialist or can follow-up with our local community living specialist Dr. Ramírez's office is located at [address] [place] [address] Continue on the acronym R.I.C.E. Rest, Ice Compression, Elevation this will help with pain Can ice for 15-20 minutes every 3 hours Can take 600mg of motrin/ibuprofen every 6-8 hours Medication Information: The exam and treatment you received today in the [facility] were for an urgent problem and are not intended as complete care. It is important for you to follow up with a doctor, nurse practitioner, or physician?s medical receptionist medical assistant for ongoing care. If your symptoms [...] so we can reach you if necessary. [facility] has provided you with a complete list of medications post discharge. Please inform your opal miner/provider of your visit and for further instruction [...] are safe fo (more content not included)... [facility] XR Ankle Complete Righton XR Ankle [...] Bynum MD 02/19/22 7:53 pm Technologist: REGAN [facility] XR Foot Complete Righton XR Foot [...] Tavo Bynum MD 02/19/22 8:01 pm Technologist: Minnie [facility] Vital Signs Date Time Vital Sign Value Performing Clinician Facility 01-31-2025 16:13-0400 Body mass index (BMI) [Ratio] 42.3 kg/m2 Nichelle NAVA Work Phone: [facility] 01-31-2025 16:13-0400 Body weight 108.32 kg Nichelle NAVA Work Phone: [facility] 01-31-2025 16:13-0400 Diastolic blood pressure 76 mm[Hg] Nichelle NAVA Work Phone: [facility] 01-31-2025 16:13-0400 Systolic blood pressure 120 mm[Hg] Nichelle NAVA Work Phone: [facility] 01-02-2025 11:39-0400 Body mass index (BMI) [Ratio] 41.45 kg/m2 Gerardo Viri DO Work Phone: [facility] 01-02-2025 11:39-0400 Body weight 106.14 kg Gerardo Viri DO Work Phone: [facility] 01-02-2025 11:39-0400 Diastolic blood pressure 70 mm[Hg] Gerardo Viri DO Work Phone: [facility] 01-02-2025 11:39-0400 Systolic blood pressure 108 mm[Hg] Gerardo Viri DO Work Phone: [facility] 12-29-2024 10:06-0400 Body height 160 cm Yuval Loya MD Work Phone: [facility] 12-29-2024 10:06-0400 Body mass index (BMI) [Ratio] 41.5 kg/m2 Yuval Loya MD Work Phone: [facility] 12-29-2024 10:06-0400 Body weight 106.23 kg Yuval Loya MD Work Phone: [facility] 12-29-2024 10:06-0400 Diastolic blood pressure 59 mm[Hg] Yuval Loya MD Work Phone: [facility] 12-29-2024 10:06-0400 Heart rate 86 /min uYval Loya MD Work Phone: [facility] 12-29-2024 10:06-0400 Systolic blood pressure 109 mm[Hg] Yuval Loya MD Work Phone: [facility] 12-19-2024 13:18-0400 Body mass index (BMI) [Ratio] 41.12 kg/m2 Gerardo Viri DO Work Phone: [facility] 12-19-2024 13:18-0400 Body weight 105.29 kg Gerardo Viri DO Work Phone: [facility] 12-19-2024 13:18-0400 Diastolic blood pressure 78 mm[Hg] Gerardo Viri DO Work Phone: [facility] 12-19-2024 13:18-0400 Systolic blood pressure 118 mm[Hg] Gerardo Viri DO Work Phone: [facility] 12-07-2024 15:22-0400 Body mass index (BMI) [Ratio] 41.24 kg/m2 Viri Ob [facility] 12-07-2024 15:22-0400 Body weight 105.6 kg Viri Ob [facility] 11-22-2024 13:45-0400 Body mass index (BMI) [Ratio] 40.23 kg/m2 Nichelle NAVA Work Phone: [facility] 11-22-2024 13:45-0400 Body weight 103.02 kg Nichelle Sanchez PA Work Phone: [facility] 11-22-2024 13:45-0400 Diastolic blood pressure 80 mm[Hg] Nichelle Sanchez PA Work Phone: [facility] 11-22-2024 13:45-0400 Systolic blood pressure 128 mm[Hg] Nichelle Sanchez PA Work Phone: [facility] 04-10-2024 09:35-0500 Body mass index (BMI) [Ratio] 36.99 kg/m2 Gerardo Viri DO Work Phone: [facility] 04-10-2024 09:35-0500 Body weight 94.71 kg Gerardo Viri DO Work Phone: [facility] 04-10-2024 09:35-0500 Diastolic blood pressure 74 mm[Hg] Gerardo Viri DO Work Phone: [facility] 04-10-2024 09:35-0500 Systolic blood pressure 120 mm[Hg] Gerardo Viri DO Work Phone: [facility] 03-31-2024 08:44-0500 Body height 160 cm Anita MORALES Work Phone: [facility] 03-31-2024 08:44-0500 Body mass index (BMI) [Ratio] 36.6 kg/m2 Anita Elmore APRN-PATIENT INTAKE REPRESENTATIVE Work Phone: [facility] 03-31-2024 08:44-0500 Body temperature 97.59 [degF] Anita Elmore GROCERY STOCK CLERK-PATIENT INTAKE REPRESENTATIVE Work Phone: [facility] 03-31-2024 08:44-0500 Body weight 93.71 kg Anita Elmore GROCERY STOCK CLERK-PATIENT INTAKE REPRESENTATIVE Work Phone: [facility] 03-31-2024 08:44-0500 Diastolic blood pressure 70 mm[Hg] Anita Elmore GROCERY STOCK CLERK-PATIENT INTAKE REPRESENTATIVE Work Phone: [facility] 03-31-2024 08:44-0500 Heart rate 90 /min Anita Elmore APRN-PATIENT INTAKE REPRESENTATIVE Work Phone: [facility] 03-31-2024 08:44-0500 Respiratory rate 18 /min Anita Elmore APRN-PATIENT INTAKE REPRESENTATIVE Work Phone: [facility] 03-31-2024 08:44-0500 SaO2% (BldA) [Mass fraction] 100 % Anita Elmore APRN-PATIENT INTAKE REPRESENTATIVE Work Phone: [facility] 03-31-2024 08:44-0500 Systolic blood pressure 116 mm[Hg] Anita Elmore APRN-PATIENT INTAKE REPRESENTATIVE Work Phone: [facility] 03-07-2024 14:44-0400 Body height 160 cm Gerardo Viri DO Work Phone: [facility] 03-07-2024 14:44-0400 Body mass index (BMI) [Ratio] 36.67 kg/m2 Gerardo Viri nanoRETE Work Phone: [facility] 03-07-2024 14:44-0400 Body weight 93.89 kg Gerardo Viri nanoRETE Work Phone: [facility] 03-07-2024 14:44-0400 Diastolic blood pressure 82 mm[Hg] Gerardo Viri DO Work Phone: [facility] 03-07-2024 14:44-0400 Systolic blood pressure 138 mm[Hg] Gerardo Viri DO Work Phone: [facility] 02-18-2024 11:58-0400 Body height 160 cm Anitalarry Elmore GROCERY STOCK CLERK-PATIENT INTAKE REPRESENTATIVE Work Phone: [facility] 02-18-2024 11:58-0400 Body mass index (BMI) [Ratio] 35.78 kg/m2 Anita Catarina GROCERY STOCK CLERK-PATIENT INTAKE REPRESENTATIVE Work Phone: [facility] 02-18-2024 11:58-0400 Body temperature 98.1 [degF] Anita Catarina GROCERY STOCK CLERK-PATIENT INTAKE REPRESENTATIVE Work Phone: [facility] 02-18-2024 11:58-0400 Body weight 91.63 kg Anita Elmore GROCERY STOCK CLERK-PATIENT INTAKE REPRESENTATIVE Work Phone: [facility] 02-18-2024 11:58-0400 Diastolic blood pressure 60 mm[Hg] Anita Catarina GROCERY STOCK CLERK-PATIENT INTAKE REPRESENTATIVE Work Phone: [facility] 02-18-2024 11:58-0400 Heart rate 79 /min Anitalarry Elmore GROCERY STOCK CLERK-PATIENT INTAKE REPRESENTATIVE Work Phone: [facility] 02-18-2024 11:58-0400 Respiratory rate 18 /min Anitalarry Elmore GROCERY STOCK CLERK-PATIENT INTAKE REPRESENTATIVE Work Phone: [facility] 02-18-2024 11:58-0400 SaO2% (BldA) [Mass fraction] 99 % Anita Catarina GROCERY STOCK CLERK-PATIENT INTAKE REPRESENTATIVE Work Phone: [facility] 02-18-2024 11:58-0400 Systolic blood pressure 100 mm[Hg] Anita Catarina GROCERY STOCK CLERK-PATIENT INTAKE REPRESENTATIVE Work Phone: [facility] 02-03-2024 13:24-0400 Body height 160 cm Anita Catarina GROCERY STOCK CLERK-PATIENT INTAKE REPRESENTATIVE Work Phone: [facility] 02-03-2024 13:24-0400 Body mass index (BMI) [Ratio] 35.76 kg/m2 Anita Elmore GROCERY STOCK CLERK-PATIENT INTAKE REPRESENTATIVE Work Phone: [facility] 02-03-2024 13:24-0400 Body temperature 98.8 [degF] Anita Elmore GROCERY STOCK CLERK-PATIENT INTAKE REPRESENTATIVE Work Phone: [facility] 02-03-2024 13:24-0400 Body weight 91.58 kg Anita Elmore GROCERY STOCK CLERK-PATIENT INTAKE REPRESENTATIVE Work Phone: [facility] 02-03-2024 13:24-0400 Diastolic blood pressure 70 mm[Hg] Anita Elmore GROCERY STOCK CLERK-PATIENT INTAKE REPRESENTATIVE Work Phone: [facility] 02-03-2024 13:24-0400 Heart rate 85 /min Anita Elmore GROCERY STOCK CLERK-PATIENT INTAKE REPRESENTATIVE Work Phone: [facility] 02-03-2024 13:24-0400 Respiratory rate 18 /min Anita Elmore GROCERY STOCK CLERK-PATIENT INTAKE REPRESENTATIVE Work Phone: [facility] 02-03-2024 13:24-0400 SaO2% (BldA) [Mass fraction] 99 % Anita Elmore GROCERY STOCK CLERK-PATIENT INTAKE REPRESENTATIVE Work Phone: [facility] 02-03-2024 13:24-0400 Systolic blood pressure 100 mm[Hg] Anita Elmore GROCERY STOCK CLERK-PATIENT INTAKE REPRESENTATIVE Work Phone: [facility] 01-25-2024 14:23-0400 Body mass index (BMI) [Ratio] 36.14 kg/m2 Gerardo Viri DO Work Phone: [facility] 01-25-2024 14:23-0400 Body weight 92.53 kg Gerardo Viri DO Work Phone: [facility] 01-25-2024 14:23-0400 Diastolic blood pressure 78 mm[Hg] Gerardo Viri DO Work Phone: [facility] 01-25-2024 14:23-0400 Systolic blood pressure 126 mm[Hg] Gerardo Meredith DO Work Phone: [facility] 11-23-2023 16:09-0400 Body height 160 cm Alphonso Furlong DO Work Phone: [facility] 11-23-2023 16:09-0400 Body mass index (BMI) [Ratio] 38.85 kg/m2 Alphonso Furlong DO Work Phone: [facility] 11-23-2023 16:09-0400 Body temperature 98.2 [degF] Alphonso Furlong DO Work Phone: [facility] 11-23-2023 16:090400 Body weight 99.47 kg Alphonso Furlong DO Work Phone: [facility] 11-23-2023 16:09-0400 Diastolic blood pressure 60 mm[Hg] Alphonso Furlong DO Work Phone: [facility] 11-23-2023 16:09-0400 Heart rate 82 /min Alphonso Furlong DO Work Phone: [facility] 11-23-2023 16:09-0400 Respiratory rate 20 /min Alphonso Furlong DO Work Phone: [facility] 11-23-2023 16:09-0400 SaO2% (BldA) [Mass fraction] 98 % Alphonso Furlong DO Work Phone: [facility] 11-23-2023 16:09-0400 Systolic blood pressure 114 mm[Hg] Alphonso Furlong DO Work Phone: [facility] 10-28-2023 16:31-0400 Body height 160 cm Anita Gutierresuch GROCERY STOCK CLERK-PATIENT INTAKE REPRESENTATIVE Work Phone: [facility] 10-28-2023 16:31-0400 Body mass index (BMI) [Ratio] 39.13 kg/m2 Anita Catarina GROCERY STOCK CLERK-PATIENT INTAKE REPRESENTATIVE Work Phone: [facility] 10-28-2023 16:31-0400 Body temperature 98.71 [degF] Anita Elmore GROCERY STOCK CLERK-PATIENT INTAKE REPRESENTATIVE Work Phone: [facility] 10-28-2023 16:31-0400 Body weight 100.2 kg Anita Elmore GROCERY STOCK CLERK-PATIENT INTAKE REPRESENTATIVE Work Phone: [facility] 10-28-2023 16:31-0400 Diastolic blood pressure 60 mm[Hg] Anita Elmore GROCERY STOCK CLERK-PATIENT INTAKE REPRESENTATIVE Work Phone: [facility] 10-28-2023 16:31-0400 Heart rate 71 /min Anita Elmore GROCERY STOCK CLERK-PATIENT INTAKE REPRESENTATIVE Work Phone: [facility] 10-28-2023 16:31-0400 Respiratory rate 18 /min Anita Elmore GROCERY STOCK CLERK-PATIENT INTAKE REPRESENTATIVE Work Phone: [facility] 10-28-2023 16:31-0400 SaO2% (BldA) [Mass fraction] 98 % Anita Elmore GROCERY STOCK CLERK-PATIENT INTAKE REPRESENTATIVE Work Phone: [facility] 10-28-2023 16:31-0400 Systolic blood pressure 94 mm[Hg] Anita Elmore GROCERY STOCK CLERK-PATIENT INTAKE REPRESENTATIVE Work Phone: [facility] 09-28-2023 11:36-0400 Body height 160 cm Lima Toussaint GROCERY STOCK CLERK-CHAIN HOOKER Work Phone: [facility] 09-28-2023 11:36-0400 Body mass index (BMI) [Ratio] 38.12 kg/m2 Lima Toussaint GROCERY STOCK CLERK-CHAIN HOOKER Work Phone: [facility] 09-28-2023 11:36-0400 Body temperature 98.6 [degF] Lima Toussaint GROCERY STOCK CLERK-CHAIN HOOKER Work Phone: [facility] 09-28-2023 11:36-0400 Body weight 97.61 kg Lima Toussaint GROCERY STOCK CLERK-CHAIN HOOKER Work Phone: [facility] 09-28-2023 11:36-0400 Diastolic blood pressure 60 mm[Hg] Lima Toussaint GROCERY STOCK CLERK-CHAIN HOOKER Work Phone: [facility] 09-28-2023 11:36-0400 Heart rate 86 /min Lima Toussaint GROCERY STOCK CLERK-CHAIN HOOKER Work Phone: [facility] 09-28-2023 11:36-0400 SaO2% (BldA) [Mass fraction] 98 % Lima Toussaint GROCERY STOCK CLERK-CHAIN HOOKER Work Phone: [facility] 09-28-2023 11:36-0400 Systolic blood pressure 110 mm[Hg] Lima Toussaint GROCERY STOCK CLERK-CHAIN HOOKER Work Phone: [facility] 08-25-2023 13:04-0400 Body height 160 cm Anitalarry Elmore GROCERY STOCK CLERK-PATIENT INTAKE REPRESENTATIVE Work Phone: [facility] 08-25-2023 13:04-0400 Body mass index (BMI) [Ratio] 38.48 kg/m2 Anitalarry Elmore GROCERY STOCK CLERK-PATIENT INTAKE REPRESENTATIVE Work Phone: [facility] 08-25-2023 13:04-0400 Body temperature 98.29 [degF] Anitalarry Elmore GROCERY STOCK CLERK-PATIENT INTAKE REPRESENTATIVE Work Phone: [facility] 08-25-2023 13:04-0400 Body weight 98.52 kg Anita Catarina GROCERY STOCK CLERK-PATIENT INTAKE REPRESENTATIVE Work Phone: [facility] 08-25-2023 13:04-0400 Diastolic blood pressure 62 mm[Hg] Anita Catarina GROCERY STOCK CLERK-PATIENT INTAKE REPRESENTATIVE Work Phone: [facility] 08-25-2023 13:04-0400 Heart rate 92 /min Anitalarry Elmore GROCERY STOCK CLERK-PATIENT INTAKE REPRESENTATIVE Work Phone: [facility] 08-25-2023 13:04-0400 SaO2% (BldA) [Mass fraction] 97 % Anita Catarina GROCERY STOCK CLERK-PATIENT INTAKE REPRESENTATIVE Work Phone: [facility] 08-25-2023 13:04-0400 Systolic blood pressure 110 mm[Hg] Anita Elmore GROCERY STOCK CLERK-PATIENT INTAKE REPRESENTATIVE Work Phone: [facility] 08-25-2023 07:09-0400 Body height 160 cm Pacc 3 Work Phone: [facility] 08-25-2023 07:09-0400 Body temperature 97.59 [degF] Pacc 3 Work Phone: [facility] 08-25-2023 07:09-0400 Body weight 98.7 kg Pacc 3 Work Phone: [facility] 08-25-2023 07:09-0400 Diastolic blood pressure 63 mm[Hg] Pacc 3 Work Phone: [facility] 08-25-2023 07:09-0400 Heart rate 66 /min Pacc 3 Work Phone: [facility] 08-25-2023 07:09-0400 SaO2% (BldA) [Mass fraction] 100 % Pacc 3 Work Phone: [facility] 08-25-2023 07:09-0400 Systolic blood pressure 116 mm[Hg] Pacc 3 Work Phone: [facility] 04-02-2023 07:15-0500 Body height 160.02 cm [employer] Other 04-02-2023 07:15-0500 Body mass index (BMI) [Ratio] 40.07 kg/m2 [employer] Other [employer] Other 04-02-2023 07:15-0500 Body temperature 99.1 [degF] [employer] Other [employer] Other 04-02-2023 07:15-0500 Body weight 102.6 kg Aime Schwerer Other [employer] Other 04-02-2023 07:15-0500 Diastolic blood pressure 78 mm[Hg] Aime Schwerer Other [employer] Other 04-02-2023 07:15-0500 SaO2% (BldA) [Mass fraction] 99 % Aime Schwerer Other [employer] Other 04-02-2023 07:15-0500 Systolic blood pressure 128 mm[Hg] Aime Schwerer Other [employer] Other 01-15-2023 10:45-0400 Body height 158.75 cm Aime Schwerer Other [employer] Other 01-15-2023 10:45-0400 Body mass index (BMI) [Ratio] 40.33 kg/m2 Aime Schwerer Other [employer] Other 01-15-2023 10:45-0400 Body weight 101.65 kg Aime Schwerer Other [employer] Other 01-15-2023 10:45-0400 Diastolic blood pressure 78 mm[Hg] Aime Schwerer Other [employer] Other 01-15-2023 10:45-0400 Respiratory rate 18 /min Aime Schwerer Other [employer] Other 01-15-2023 10:45-0400 SaO2% (BldA) [Mass fraction] 100 % Aime Schwerer Other [employer] Other 01-15-2023 10:45-0400 Systolic blood pressure 138 mm[Hg] Aime Goff Other [facility] [employer] Other 05-28-2022 08:32-0500 Body height 167.6 cm Latasha Bobo MD Work Phone: [facility] 05-28-2022 08:32-0500 Body mass index (BMI) [Percentile] Per age and sex 97.14 % Latasha Bobo MD Work Phone: [facility] 05-28-2022 08:32-0500 Body weight 93.44 kg Latasha Bobo MD Work Phone: [facility] 04-15-2022 14:01-0500 Body height 160 cm Mana Abiodunsuto GROCERY STOCK CLERK.PATIENT INTAKE REPRESENTATIVE Work Phone: [facility] 04-15-2022 14:01-0500 Body mass index (BMI) [Percentile] Per age and sex 98.09 % Mana Bjvissuto GROCERY STOCK CLERK.PATIENT INTAKE REPRESENTATIVE Work Phone: [facility] 04-15-2022 14:01-0500 Body weight 91.63 kg Mana Bjvissuto GROCERY STOCK CLERK.PATIENT INTAKE REPRESENTATIVE Work Phone: [facility] 04-15-2022 14:01-0500 Diastolic blood pressure 74 mm[Hg] Mana Bonvissuto GROCERY STOCK CLERK.PATIENT INTAKE REPRESENTATIVE Work Phone: [facility] 04-15-2022 14:01-0500 Heart rate 77 /min Mana Bonvissuto GROCERY STOCK CLERK.PATIENT INTAKE REPRESENTATIVE Work Phone: [facility] 04-15-2022 14:01-0500 Systolic blood pressure 124 mm[Hg] Mana Bonvissuto GROCERY STOCK CLERK.PATIENT INTAKE REPRESENTATIVE Work Phone: [facility] Encounters Encounter Date Encounter Type Care Provider Facility Start: 01-31-2025 End: 01-31-2025 flow sheet Nichelle NAVA Work Phone: [facility] Comment on above: 15 weeks gestation o f ([facility]); Second trimester ([facility]); Screening, , for anatomic survey ([facility]) Start: 01-31-2025 End: 01-31-2025 ambulatory NICHELLE SANCHEZ Not Available Start: 01-31-2025 End: 01-31-2025 Bamboo flowsheet Nichelle NAVA Work Phone: [facility] Start: 01-31-2025 End: 01-31-2025 Bamboo flowsheet Nichelle NAVA Work Phone: [facility] Start: 01-02-2025 End: 01-02-2025 Bamboo flowsheet Gerardo Viri DO Work Phone: [facility] Start: 01-02-2025 End: 01-03-2025 Bamboo flowsheet Gerardo Viri DO Work Phone: [facility] Start: 01-02-2025 End: 01-03-2025 External Result Encounter Gerardo Viri DO Work Phone: [facility] External Department Unsolicited Start: 01-02-2025 End: 01-02-2025 ambulatory GERARDO VIRI Not Available Start: 01-02-2025 End: 01-02-2025 flow sheet Gerardo Viri DO Work Phone: [facility] Comment on above: 11 weeks gestation o f ([facility]); First trimester ([facility]); Thyroid disease ; H/O thyroidectomy; Exposure to STD; Vaginal discharge; Constipation, unspecified constipation type Start: 12-29-2024 End: 12-29-2024 Orders Only Kanchan Guzmán RN [facility] Comment on above: Thyroid disease affe cting (Primary Dx) Start: 12-29-2024 End: 12-29-2024 Office consultation new/estab patient 60 min Anderws Harrison MD Work Phone: [facility] Comment on above: Thyroid disease affe cting (Primary Dx); Postoperative hypothyroidism Start: 12-28-2024 End: 12-28-2024 Chart abstracting Yuval Loya MD Work Phone: [facility] Start: 12-19-2024 End: 12-19-2024 Bamboo flowsheet Gerardo Viri DO Work Phone: [facility] Start: 12-19-2024 End: 12-19-2024 Bamboo flowsheet Gerardo Viri DO Work Phone: [facility] Start: 12-19-2024 End: 12-19-2024 flow sheet Gerardo Viri DO Work Phone: [facility] Comment on above: First trimester preg carlos ([facility] 9 weeks gestation of ([facility]); Encounter to discuss test results; headache, antepartum ([facility]); Nausea Start: 12-19-2024 End: 12-19-2024 ambulatory GERARDO VIRI Not Available Start: 12-18-2024 End: 12-18-2024 ambulatory NON STAFF Facility:[facility] Start: 12-16-2024 End: 12-16-2024 Clinisync Result Encounter [...] Available Start: 11-22-2024 End: 11-22-2024 Bamboo flowsheet iNchelle NAVA Work Phone: [facility] Start: 11-22-2024 End: 11-22-2024 Bamboo flowsheet Nichelle NAVA Work Phone: [facility] Start: 11-22-2024 End: 11-22-2024 ambulatory NICHELLE SANCHEZ Not Available Start: 11-22-2024 End: 11-22-2024 Office outpatient visit 15 minutes Nichelle NAVA Work Phone: [facility] Comment on above: Nausea (Primary Dx); Cramping affecting , antepartum ([facility]HS-HCC); Missed menses Start: 11-18-2024 End: 11-18-2024 Clinisync Result Encounter Gerardo Viri DO Work Phone: [facility] External Department Unsolicited Start: 11-18-2024 End: 11-18-2024 Clinisync Result Encounter Gerardo Viri DO Work Phone: [facility] External Department Unsolicited Start: 11-13-2024 End: 11-13-2024 Clinisync Result Encounter Gerardo Viri DO Work Phone: [facility] External Department Unsolicited Start: 11-13-2024 End: 11-13-2024 Clinisync Result Encounter Gerardo Viri DO Work Phone: [facility] External Department Unsolicited Start: 10-12-2024 End: 10-12-2024 [facility] Start: 05-09-2024 End: 05-09-2024 Bamboo flowsheet Loretta Winkler MD Work Phone: [facility] Start: 05-09-2024 End: 05-09-2024 Bamboo flowsheet Loretta Winkler MD Work Phone: [facility] Start: 05-09-2024 End: 05-09-2024 ambulatory LORETTA WINKLER Not Available Start: 04-26-2024 End: 05-01-2024 Refill Anita Elomre GROCERY STOCK CLERK-PATIENT INTAKE REPRESENTATIVE Work Phone: [facility] - [...] management Start: 04-03-2024 End: 04-03-2024 Orders Only Anitalarry Elmore GROCERY STOCK CLERK-PATIENT INTAKE REPRESENTATIVE Work Phone: [facility] Comment on above: Postoperative hypoth yroidism (Primary Dx) Start: 03-31-2024 End: 03-31-2024 ambulatory [facility] Start: 03-31-2024 End: 03-31-2024 Office outpatient visit 15 minutes Anitalarry Elmore GROCERY STOCK CLERK-PATIENT INTAKE REPRESENTATIVE Work Phone: [facility] Comment on above: Postoperative hypoth yroidism (Primary Dx); Acute nonintractable headache, unspecified headache type; Gastroesophageal reflux disease, unspecified whether esophagitis present; Immunization due Start: 03-31-2024 End: 03-31-2024 ambulatory [facility] Start: 03-20-2024 End: 03-20-2024 Clinisync Result Encounter Gerardo Viri DO Work Phone: [facility] External Department Unsolicited Start: 03-20-2024 End: 03-20-2024 Clinisync Result Encounter Gerardo Viri DO Work Phone: [facility] External Department Unsolicited Start: 03-18-2024 End: 03-20-2024 Refill Anita Elmore GROCERY STOCK CLERK-PATIENT INTAKE REPRESENTATIVE Work Phone: [facility] Start: 03-17-2024 End: 03-17-2024 Clinisync Result Encounter Gerardo Ivri DO Work Phone: [facility] External Department Unsolicited [...] Start: 03-13-2024 End: 03-13-2024 Orders Only Anita Elmore GROCERY STOCK CLERK-PATIENT INTAKE REPRESENTATIVE [facility] [...] gain Start: 03-07-2024 End: 03-07-2024 ambulatory GERARDO MEREDITH Not Available Start: 03-03-2024 End: 03-03-2024 ambulatory Brooke Conde Facility:[facility] Start: 03-01-2024 End: 03-02-2024 Refill Anita Natalia Elmore GROCERY STOCK CLERK-PATIENT INTAKE REPRESENTATIVE Work Phone: [facility] Start: 02-23-2024 End: 02-23-2024 Telephone encounter Asad Sam [facility] Start: 02-21-2024 End: 02-21-2024 Orders Only Anita Natalia Elmore GROCERY STOCK CLERK-PATIENT INTAKE REPRESENTATIVE Work Phone: [facility] Comment on above: Postoperative hypoth yroidism (Primary Dx) Start: 02-18-2024 End: 02-18-2024 ambulatory [facility] Start: 02-18-2024 End: 02-18-2024 Office outpatient visit 15 minutes Anita Natalia Elmore GROCERY STOCK CLERK-PATIENT INTAKE REPRESENTATIVE Work Phone: [facility] Comment on above: Gastroesophageal ref lux disease, unspecified whether esophagitis present (Primary Dx); Postoperative hypothyroidism; Acute hemorrhoid; Delayed gastric emptying; Influenza vaccination administered at current visit Start: 02-18-2024 End: 02-18-2024 ambulatory [facility] Start: 02-17-2024 End: 02-18-2024 Refill Anita Natalia Elmore GROCERY STOCK CLERK-PATIENT INTAKE REPRESENTATIVE Work Phone: [facility] Start: 02-10-2024 End: 02-10-2024 Orders Only Anita Natalia Elmore GROCERY STOCK CLERK-PATIENT INTAKE REPRESENTATIVE Work Phone: [facility] Comment on above: Esophageal dysphagia (Primary Dx); Gastroesophageal reflux disease without esophagitis Start: 02-04-2024 End: 02-04-2024 Orders Only Anita Natalia Elmore GROCERY STOCK CLERK-PATIENT INTAKE REPRESENTATIVE Work Phone: [facility] Start: 02-04-2024 End: 02-05-2024 Evaluation and management of inpatient [facility] Start: 02-03-2024 End: 02-03-2024 ambulatory NICHELLE SANCHEZ Not Available Start: 02-03-2024 End: 02-03-2024 Online digital e/m svc est pt <7 d 5-10 minutes Nichelle NAVA Work Phone: [facility] Comment on above: Weight gain (Primary Dx) Start: 02-03-2024 End: 02-03-2024 Bamboo flowsheet Nichelle NAVA Work Phone: [facility] Start: 02-03-2024 End: 02-03-2024 Bamboo flowsheet Nichelle NAVA Work Phone: [facility] Start: 02-03-2024 End: 02-03-2024 Office outpatient visit 25 minutes [facility] GROCERY STOCK CLERK-PATIENT INTAKE REPRESENTATIVE Work Phone: [facility] Comment on above: Gastroesophageal ref lux disease, unspecified whether esophagitis present (Primary Dx); Esophageal dysphagia; Allergic contact dermatitis, unspecified trigger; Chronic idiopathic constipation Start: 02-03-2024 End: 02-03-2024 ambulatory [facility] Start: 01-28-2024 End: 01-28-2024 Refill [facility] GROCERY STOCK CLERK-PATIENT INTAKE REPRESENTATIVE Work Phone: [facility] Start: 01-26-2024 End: 01-26-2024 Telephone encounter Roxana Han [facility] Start: 01-25-2024 End: 01-25-2024 Postop follow up visit related to original px Gerardoarya Meredith DO Work Phone: [facility] Comment on above: Anxiety, generalized (CMS/HCC) (Primary Dx); Postoperative visit; S/P laparoscopy; Encounter for repeat prescription of oral contraceptives Start: 01-25-2024 End: 01-25-2024 Bamboo flowsheet Gerardo Viri DO Work Phone: [facility] Start: 01-25-2024 End: 01-25-2024 Bamboo flowsheet Gerardo Viri DO Work Phone: [facility] Start: 01-23-2024 End: 01-26-2024 Refill Anita L Catarina GROCERY STOCK CLERK-PATIENT INTAKE REPRESENTATIVE Work Phone: [facility] Start: 01-14-2024 End: 01-14-2024 Clinisync Result Encounter Gerardo Viri DO Work Phone: [facility] Unsolicited Start: 01-14-2024 End: 01-14-2024 Clinisync Result Encounter Gerardo Viri DO Work Phone: [facility] Unsolicited Start: 01-14-2024 End: 01-14-2024 ambulatory Gerardo Viri Facility:[facility] Start: 12-27-2023 End: 12-29-2023 Refill Anita L Catarina GROCERY STOCK CLERK-PATIENT INTAKE REPRESENTATIVE Work Phone: [facility] Start: 12-07-2023 End: 12-07-2023 Orders Only Anita L Catarina GROCERY STOCK CLERK-PATIENT INTAKE REPRESENTATIVE Work Phone: [facility] Start: 12-06-2023 End: 12-06-2023 Orders Only Anita L Catarina GROCERY STOCK CLERK-PATIENT INTAKE REPRESENTATIVE Work Phone: [facility] Start: 11-25-2023 End: 11-25-2023 Refill Anita L Catarina GROCERY STOCK CLERK-PATIENT INTAKE REPRESENTATIVE Work Phone: [facility] Start: 11-23-2023 End: 11-23-2023 Office outpatient visit 15 minutes Alphonsomckayla Garcia DO Work Phone: [facility] Comment on above: Tinea pedis of both feet (Primary Dx) Start: 11-23-2023 End: 11-23-2023 ambulatory [place] [facility] Start: 10-29-2023 End: 10-29-2023 Orders Only Anita Elmore GROCERY STOCK CLERK-PATIENT INTAKE REPRESENTATIVE Work Phone: [facility] Comment on above: Postoperative hypoth yroidism (Primary Dx) Start: 10-28-2023 End: 10-28-2023 Patient encounter status Anita Elmore GROCERY STOCK CLERK-PATIENT INTAKE REPRESENTATIVE Work Phone: [facility] Work Phone: Start: 10-28-2023 End: 10-28-2023 Periodic preventive med est patient 18-39 yrs Anita Elmore GROCERY STOCK CLERK-PATIENT INTAKE REPRESENTATIVE Work Phone: [facility] Comment on above: Wellness examination (Primary Dx); Tinea pedis of right foot; Postoperative hypothyroidism; Generalized anxiety disorder; High risk heterosexual behavior Start: 10-28-2023 End: 10-28-2023 ambulatory [facility] Start: 10-04-2023 Refill Yesideclan Zepdea MD Work Phone: Endocrinology Comment on above: Refill Request Start: 09-28-2023 End: 09-28-2023 Office outpatient visit 15 minutes Lima Toussaint GROCERY STOCK CLERK-CHAIN HOOKER Work Phone: [facility] Comment on above: Flu-like symptoms (P rimary Dx); Acute non-recurrent frontal sinusitis; Yeast vaginitis Start: 09-28-2023 End: 09-28-2023 ambulatory LIMA SWAIN [facility] Start: 09-09-2023 End: 09-10-2023 ambulatory LATASHA BOBO Facility:[facility] Start: 09-09-2023 End: 09-10-2023 Patient encounter procedure Latasha Bobo MD Work Phone: Otolarynogology Comment on above: Hypothyroidism (acqu ired) (Primary Dx) Start: 09-03-2023 End: 09-04-2023 ambulatory LATASHA BOBO Facility:[facility] Start: 09-02-2023 Admission to same da y surgery center Latasha Bobo MD Work Phone: Otolaryngology Comment on above: surgery time Start: 09-02-2023 ambulatory Latasha lanza MD Work Phone: [facility] Start: 08-25-2023 End: 08-25-2023 Office outpatient new 45 minutes Anita Elmore GROCERY STOCK CLERK-PATIENT INTAKE REPRESENTATIVE Work Phone: [facility] Comment [...] 08-25-2023 End: 08-25-2023 Patient encounter status Anita Fisher [facility] GROCERY STOCK CLERK-PATIENT INTAKE REPRESENTATIVE Work Phone: [facility] Work Phone: Start: 08-25-2023 End: 08-25-2023 ambulatory [facility] Start: 08-25-2023 Encounter for genera l adult medical examination without abnormal findings [facility] Start: 08-25-2023 End: 08-26-2023 ambulatory LATASHA BOBO Facility:[facility] Start: 08-25-2023 End: 08-26-2023 [facility] Start: 08-25-2023 Encounter for other preprocedural examination ANITA ELMORE [facility] Start: 08-25-2023 End: 08-25-2023 Admission to establishment Pacc Main 3 Work Phone: [facility] Start: 08-25-2023 End: 08-25-2023 ambulatory Pacc Main 3 Work Phone: Pre Anesthesia Comment on above: Pre-op evaluation (P rimary Dx); Gastroesophageal reflux disease, unspecified whether esophagitis present; Obesity, pediatric, BMI greater than or equal 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 Start: 08-25-2023 End: 08-25-2023 Preprocedural examination done Pac Main 3 Work Phone: [facility] Work Phone: Start: 08-18-2023 End: 08-18-2023 ambulatory Yesi Zepeda MD Work Phone: Endocrinology Comment on above: PCOS (polycystic ova perla syndrome) (Primary Dx); Thyroid nodule Start: 08-18-2023 End: 08-18-2023 Telemedicine consultation with patient Yesi Zepeda MD Work Phone: [facility] Start: 07-13-2023 Telephone encounter Latasha Boob MD Work Phone: [facility] [place] Comment on above: Results Start: 07-09-2023 End: 07-09-2023 ambulatory LATASHA BOBO Facility:[facility] Start: 05-20-2023 End: 05-20-2023 ambulatory Aime Goff Other [employer] Other Start: 05-20-2023 Encounter by german Goff [facility] Start: 04-23-2023 End: 04-24-2023 ambulatory LATASHA BOBO Facility:[facility] Start: 04-02-2023 End: 04-02-2023 ambulatory Aime Goff Other [employer] Other Start: 04-02-2023 Office outpatient vi sit 25 minutes Aime Goff [facility] Start: 02-22-2023 Telephone encounter Aime Goff [facility] Start: 02-22-2023 End: 02-22-2023 ambulatory DO Kevin Stokes Work Phone: [employer] Other Start: 02-22-2023 End: 02-22-2023 Patient encounter procedure DO Kevin Stokes Work Phone: [facility] Vaccine Start: 01-30-2023 End: 01-30-2023 ambulatory Gerald Barboza Other [employer] Other Start: 01-30-2023 Telephone encounter Gerald Barboza [facility] Start: 01-27-2023 End: 01-27-2023 ambulatory Aime Goff Facility:[facility] Start: 01-15-2023 End: 01-15-2023 ambulatory Aime Schwerer Other [employer] Other Start: 01-15-2023 Office outpatient ne w 45 minutes Aime Longr [facility] Family Medicine [place] Start: 01-06-2023 End: 01-06-2023 Emergency department patient visit Africa Del Cid Facility:[facility] Start: 12-14-2022 End: 12-14-2022 ambulatory ELIJAH Rodriguez Facility:[facility] Start: 11-13-2022 Telephone encounter Davina Enriquez MD Work Phone: Endocrinology Comment on above: Appointment (LM that appt was rescheduled) Start: 10-27-2022 End: 10-27-2022 ambulatory Power MOYA Facility:[facility] Start: 07-31-2022 End: 07-31-2022 Emergency department patient visit KATHLEEN NAVA Facility:[facility] Start: 07-31-2022 End: 08-01-2022 ambulatory KATHLEEN NAVA Facility:[facility] Start: 07-08-2022 End: 07-08-2022 ambulatory KEVIN STOKES Facility:[facility] Start: 05-28-2022 End: 05-28-2022 Patient encounter procedure Latasha Bobo MD Work Phone: Otolarynogology Comment on above: Thyroid nodule (Prim rodriguez Dx); Abnormal thyroid blood test; History of thyroid nodule Start: 04-24-2022 Telephone encounter Mana Rincon APRN.CNP Work Phone: Peds Endocrinology Comment on above: Patient Update Start: 04-21-2022 Telephone encounter Mana Jonesmarjan HAYNES.PATIENT INTAKE REPRESENTATIVE Work Phone: Peds Endocrinology Comment on above: Results Start: 04-19-2022 ambulatory MANA BATISTAKARSTENVIVIENNE Facil ity:[facility] Start: 04-19-2022 End: 04-19-2022 Subsequent hospital visit by physician [facility] Work Phone: [facility] Radiology Ultrasound Comment on above: Abnormal thyroid blo od test [R79.89] Start: 04-16-2022 Telephone encounter Mana Jonesmarjan HAYNES.PATIENT INTAKE REPRESENTATIVE Work Phone: Peds Endocrinology Comment on above: Results Start: 04-15-2022 End: 04-16-2022 ambulatory MANA AGUILAR Facility:[facility] Start: 04-15-2022 End: 04-15-2022 Patient encounter procedure Mana Lorenzoalvin HAYNES.PATIENT INTAKE REPRESENTATIVE Work Phone: Pediatrics Comment on above: Abnormal thyroid blo od test (Primary Dx); History of thyroid nodule; Obesity, pediatric, BMI greater than or equal 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 Start: 02-19-2022 End: 02-19-2022 ambulatory KEVIN STOKES Facility:[facility] Procedures Date Procedure Procedure Detail Performing Clinician Start: 01-31-2025 Urnls dip stick/tabl et rgnt non-auto w/o micrscp Nichelle NAVA Work Phone: Start: 01-02-2025 RECURRENT VAGINITIS (HTRX) Gerardo Viri DO Work Phone: Start: 01-02-2025 Urnls dip stick/tabl et rgnt non-auto w/o micrscp Gerardo Viri DO Work Phone: Start: 12-27-2024 Assay of thyroid stimulating hormone tsh Not In System Ref Prov Start: 12-19-2024 Urnls dip stick/tabl et rgnt non-auto w/o micrscp Gerardo Viri DO Work Phone: Start: 12-18-2024 Assay of free thyroxine Not In System Ref Prov Start: 12-16-2024 Antibody rubella Not In System Ref Prov Start: 12-16-2024 Antibody screen Yuval Loya MD Work Phone: Start: 12-16-2024 Drug scrn 1+ class nonchromo Not In System Ref Prov Start: 12-16-2024 Hemoglobin glycosyla jessie a1c Gerardo R Viri DO Work Phone: Start: 12-16-2024 HIV 1&2 AB/AG SCREEN (P24 AG) Not In System Ref Prov Start: 12-16-2024 Iaad ia hepatitis b surface antigen Not In System Ref Prov Start: 12-16-2024 TYPE AND SCREEN Not In System Ref Prov Start: 12-16-2024 BOX TEST Gerardo Fazi o [...] Adult depression scr eening assessment Anita Elmore GROCERY STOCK CLERK-PATIENT INTAKE REPRESENTATIVE Work Phone: Start: 03-20-2024 [facility] PREG QUANT [...] 10-28-2023 Adult depression scr eening assessment Anita Gutierresuch GROCERY STOCK CLERK-PATIENT INTAKE REPRESENTATIVE Work Phone: Start: 09-28-2023 POCT INFLUENZA A/INF LUENZA B/SARS-COV-2 VERITOR Lima Toussaint GROCERY STOCK CLERK-CHAIN HOOKER Work Phone: Start: 09-28-2023 Adult depression scr eening assessment Lima Toussaint GROCERY STOCK CLERK-CHAIN HOOKER Work Phone: Start: 08-25-2023 Adult depression scr eening assessment Anita Catarina GROCERY STOCK CLERK-PATIENT INTAKE REPRESENTATIVE Work Phone: Start: 05-28-2022 US NECK (POC) HNI USE ONLY Salinas Tam MD Work Phone: Start: 04-19-2022 Us soft tissue head & neck real time imge docm Mana Aguilar APRN.PATIENT INTAKE REPRESENTATIVE Work Phone: Start: 07-12-2017 History of tonsillectomy S/P tonsill ectomy Mana Aguilar APRN.PATIENT INTAKE REPRESENTATIVE Work Phone: History of thyroidectomy H/O thyroidectom y Gerardo Burto DO Work Phone: Plan of Treatment Date Care Activity Detail Author Start: 12-29-2025 End: 12-29-2025 US MFM with or without consult US MFM with or without consult Imaging Routine Thyroid disease affecting Expected: 12/29/2025 (Approximate), Expires: 12/29/2025 [facility] Work Phone: Comment on above: Expected: 12/29/2025 (Approximate), Expi res: 12/29/2025 Start: 11-24-2025 DTaP,Tdap and Td Vaccines (7 - Td or Tdap) DTaP,Tdap and Td Vaccines (7 - Td or Tdap) [facility] Start: 11-24-2025 Urine microalbumin profile DTaP,Tdap,Td Vaccine (7 - T d or Tdap) [facility] Start: 10-12-2025 Adult BMI Screening Adult BMI Screening [facility] Start: 10-12-2025 Tobacco Screening Tobacco Screening [facility] Start: 03-31-2025 Adult BMI Screening Adult BMI Screening [facility] Start: 03-31-2025 Depression Screening Depression Screening [facility] Start: 02-28-2025 End: 02-28-2025 Patient encounter procedure 02/28/2025 2:00 PM EDT Routine EUGENIA MAYA [address] [place] [phone] Gerardo Meredith DO [address] [place] [address] EUGENIA MAYA Start: 02-17-2025 Adult BMI Screening Adult BMI Screening [facility] Start: 02-17-2025 Tobacco Screening Tobacco Screening [facility] Start: 02-03-2025 Adult BMI Screening Adult BMI Screening [facility] Start: 02-03-2025 Tobacco Screening Tobacco Screening [facility] Start: 02-02-2025 Adult BMI Screening Adult BMI Screening [facility] Start: 02-02-2025 Tobacco Screening Tobacco Screening [facility] Start: 01-31-2025 End: 01-31-2025 Patient encounter procedure EUGENIA Saldana Comment on above: Arrived Start: 01-31-2025 End: 03-02-2025 Alpha fetoprotein, maternal Alpha fetoprotein, materna l Lab Routine 15 weeks gestation of (HHS-HCC) Second trimester (HHS-HCC) Expected: 01/31/2025 (Approximate), Expires: 03/02/2025 [facility] Work Phone: Comment on above: Expected: 01/31/2025 (Approximate), Expi res: 03/02/2025 Start: 01-15-2025 Influenza vaccination [facility] Start: 01-02-2025 End: 01-02-2025 Patient encounter procedure [facility] Start: 12-29-2024 End: 12-29-2024 Patient encounter procedure 12/29/2024 10:00 AM EDT Office Visit Maternal- Medicine at [facility] [address] [place] [address] Andrews Harrison MD [address] [place] [address] Yuval Loya MD [address] [place] [address] Maternal- Medicine at [facility] Start: 12-19-2024 End: 12-19-2024 Patient encounter procedure 12/19/2024 1:00 PM EDT Routine [facility] [address] [place] [phone] Gerardo Meredith DO [address] [place], [place] [id number] Arrived [facility] Comment on above: Arrived Start: 12-07-2024 End: 12-07-2024 ambulatory 12/07/2024 2:30 PM EDT Initial [facility] [address] [place] [phone] [facility] Start: 12-07-2024 End: 12-07-2025 ABO/Rh ABO/Rh Lab Routine Missed menses , unspecified gestational age ([facility]) Expected: 12/07/2024 (Approximate), Expires: 12/07/2025 [facility] Comment on above: Expected: 12/07/2024 (Approximate), Expi res: 12/07/2025 Start: 12-07-2024 End: 12-07-2025 Blood type and Indirect antibody screen panel - Blood Type and screen Lab Routine Missed menses , unspecified gestational age ([facility]) Expected: 12/07/2024 (Approximate), Expires: 12/07/2025 [facility] Work Phone: Comment on above: Expected: 12/07/2024 (Approximate), Expi res: 12/07/2025 Start: 12-07-2024 End: 12-07-2025 Drugs of abuse panel - Urine by Screen method Rapid drug screen, urine Lab Routine , unspecified gestational age ([facility]) Encounter for supervision of normal first in first trimester ([facility]) Expected: 12/07/2024 (Approximate), Expires: 12/07/2025 [facility] Comment on above: Expected: 12/07/2024 (Approximate), Expi res: 12/07/2025 Start: 12-07-2024 End: 12-07-2024 Professional / ancillary services management 12/07/2024 2:00 PM EDT Ancillary Procedure [facility] [address] [place] [phone] [facility] Start: 11-30-2024 End: 11-30-2024 Professional / ancillary services management 11/30/2024 2:30 PM EDT Ancillary Procedure [facility] [address] [place] [phone] [facility] Start: 11-22-2024 Adult BMI Screening Adult BMI Screening [facility] Start: 11-22-2024 Depression Screening Depression Screening [facility] Start: 11-22-2024 Tobacco Screening Tobacco Screening [facility] Start: 11-22-2024 End: 02-22-2025 US Pelvis transvaginal US OB transvaginal Imaging Routine Missed menses Expected: 11/22/2024, Expires: 02/22/2025 [facility] Work Phone: Comment on above: Expected: 11/22/2024, Expires: Start: 11-22-2024 End: 11-22-2024 Patient encounter procedure 11/22/2024 1:30 PM EDT Off ice Visit [facility] [address] [address] Nichelle Sanchez PA [address] [place] [address] [facility] Start: 11-02-2024 End: 11-02-2024 Patient encounter procedure 11/02/2024 3:40 PM EDT Off ice Visit [facility] [address] [place] [address] Anita Elmore, GROCERY STOCK CLERK-PATIENT INTAKE REPRESENTATIVE [address] [place] [address] [facility] Start: 10-27-2024 Adult BMI Screening Adult BMI Screening [facility] Start: 10-27-2024 Depression Screening Depression Screening [facility] Start: 10-27-2024 Screening for Chlamydia trachomatis Chlamydia Screening [facility] Start: 10-27-2024 Tobacco Screening Tobacco Screening [facility] Start: 09-27-2024 Adult BMI Screening Adult BMI Screening [facility] Start: 09-27-2024 Depression Screening Depression Screening [facility] Start: 09-27-2024 Tobacco Screening Tobacco Screening [facility] Start: 08-24-2024 Adult BMI Screening Adult BMI Screening [facility] Start: 08-24-2024 Depression Screening Depression Screening [facility] Start: 06-01-2024 End: 06-01-2024 Patient encounter procedure 06/01/2024 8:40 AM EST Off ice Visit [facility] [address] [place] [address] Anita Elmore, GROCERY STOCK CLERK-PATIENT INTAKE REPRESENTATIVE [address] [place] [address] [facility] Start: 05-09-2024 End: 05-09-2024 Patient encounter procedure 05/09/2024 9:20 AM EST Off ice Visit [facility] [address] [place] [address] Loretta Winkler MD [address] [place] [address] Arrived [facility] Comment on above: Arrived Start: 05-08-2024 End: 05-08-2024 Patient encounter procedure 05/08/2024 8:30 AM EST Off ice Visit [facility] [address] [place] [phone] Nichelle Sanchez PA [address] [place], [place] [phone] [facility] Start: 05-03-2024 End: 04-03-2025 Thyrotropin [Units/volume] in Serum or Plasma TSH Lab Routine Postoperative hypothyroidism Expected: 05/03/2024 (Approximate), Expires: 04/03/2025 [employer] Work Phone: Comment on above: Expected: 05/03/2024 (Approximate), Expi res: 04/03/2025 Start: 05-03-2024 End: 04-03-2025 Thyroxine (T4) free [Mass/volume] in Serum or Plasma T4, free Lab Routine Postoperative hypothyroidism Expected: 05/03/2024 (Approximate), Expires: 04/03/2025 [facility] Comment on above: Expected: 05/03/2024 (Approximate), Expi res: 04/03/2025 Start: 04-10-2024 End: 04-10-2024 Patient encounter procedure 04/10/2024 9:10 AM EST [facility] ice [facility] [address] [place] [phone] Gerardo Meredith DO [address] [place], [place] [phone] [facility] Start: 03-31-2024 End: 03-31-2024 Patient encounter procedure 03/31/2024 8:40 AM EST Off ice Visit [facility] [address] [place] [address] Anita Elmore, GROCERY STOCK CLERK-PATIENT INTAKE REPRESENTATIVE [address] [place] [address] [facility] Start: 03-23-2024 End: 02-20-2025 Thyrotropin [Units/volume] in Serum or Plasma TSH Lab Routine Postoperative hypothyroidism Expected: 03/23/2024 (Approximate), Expires: 02/20/2025 [email or web address] Work Phone: Comment on above: Expected: 03/23/2024 (Approximate), Expi res: 02/20/2025 Start: 03-23-2024 End: 02-20-2025 Thyroxine (T4) free [Mass/volume] in Serum or Plasma T4, free Lab Routine Postoperative hypothyroidism Expected: 03/23/2024 (Approximate), Expires: 02/20/2025 [facility] Comment on above: Expected: 03/23/2024 (Approximate), Expi res: 02/20/2025 Start: 03-07-2024 End: 03-07-2024 Patient encounter procedure [facility] Comment on above: Arrived Start: 02-18-2024 End: 02-18-2024 Patient encounter procedure 02/18/2024 11:45 AM EDT [facility] [address] [place] [address] Anita Elmore, GROCERY STOCK CLERK-PATIENT INTAKE REPRESENTATIVE [address] [place] [address] [facility] Start: 02-15-2024 End: 02-15-2024 Patient encounter procedure 02/15/2024 2:30 PM EDT Off ice Visit [facility] [place] [phone] Aramis Trejo MD [address] [place] [phone] [facility] Start: 02-04-2024 End: 02-04-2024 Esophagogastroduodenoscopy transoral diagnostic ESOPHAGOGASTRODUODENOSCOPY DIAGNOSTIC dysphagia 02/04/2024 2:30 PM EDT [facility] Start: 01-25-2024 End: 01-25-2024 Patient encounter procedure [facility] Comment on above: Arrived Start: 01-16-2024 COVID-19 Vaccine ( season) COVID-19 Vaccine ( season) [facility] Start: 01-16-2024 COVID-19 Vaccine ( season) COVID-19 Vaccine ( season) [facility] Start: 01-16-2024 Influenza vaccination [facility] Start: 01-14-2024 End: 01-14-2024 Patient encounter procedure 01/14/2024 7:30 AM EDT Procedure Visit [facility] Gerardo Meredith, [address] [place] [address] [facility] Start: 10-29-2023 End: 11-28-2023 Thyrotropin [Units/volume] in Serum or Plasma TSH Lab Routine Postoperative hypothyroidism Expected: 10/29/2023 (Approximate), Expires: 11/28/2023 [facility] Work Phone: Comment on above: Expected: 10/29/2023 (Approximate), Expi res: 11/28/2023 Start: 10-28-2023 End: 10-28-2023 Patient encounter procedure 10/28/2023 4:20 PM EDT Off ice Visit [facility] [address] [place] [phone] Anita Elmore, GROCERY STOCK CLERK-PATIENT INTAKE REPRESENTATIVE [address] [place] [address] [facility] Start: 10-09-2023 End: 01-08-2024 Thyrotropin [Units/volume] in Serum or Plasma THYROID STIMULATING HORMONE Lab Routine Hypothyroidism (acquired) Expected: 10/09/2023, Expires: 01/08/2024 [facility] Work Phone: Comment on above: Expected: 10/09/2023, Expires: Start: 09-09-2023 End: 12-09-2023 Calcium [Mass/volume] in Serum or Plasma CALCIUM, TOTAL Lab Routine Hypothyroidism (acquired) Expected: 09/09/2023, Expires: 12/09/2023 [facility] Comment on above: Expected: 09/09/2023, Expires: Start: 09-09-2023 End: 12-09-2023 Parathyrin.intact [Mass/volume] in Serum or Plasma PTH INTACT Lab Routine Hypothyroidism (acquired) Expected: 09/09/2023, Expires: 12/09/2023 [facility] Comment on above: Expected: 09/09/2023, Expires: Start: 08-18-2023 End: 11-17-2023 17-Hydroxyprogesterone [Mass/volume] in Serum or Plasma HYDROXYPROGESTERONE-17 Lab Routine PCOS (polycystic ovarian syndrome) Expected: 08/18/2023, Expires: 11/17/2023 [facility] Work Phone: Comment on above: Expected: 08/18/2023, Expires: Start: 08-18-2023 End: 11-17-2023 TESTOSTERONE, FREE AND TOTAL TESTOSTERONE, FREE AND TO CLINT Lab Routine PCOS (polycystic ovarian syndrome) Expected: 08/18/2023, Expires: 11/17/2023 [facility] Work Phone: Comment on above: Expected: 08/18/2023, Expires: Start: 08-02-2023 End: 11-01-2023 Basic metabolic 2000 panel - Serum or Plasma BASIC METABOLIC PNL Lab Routine Thyroiditis Expected: 08/02/2023, Expires: 11/01/2023 [facility] Work Phone: Comment on above: Expected: 08/02/2023, Expires: 4 Start: 08-02-2023 End: 11-01-2023 CBC panel - Blood by Automated count CBC Lab Routine Thyroiditis Expected: 08/02/2023, Expires: 11/01/2023 [facility] Work Phone: Comment on above: Expected: 08/02/2023, Expires: 4 Start: 05-17-2023 Behavioral Health Screening Behavioral Health Screening [facility] Start: 05-17-2023 Depression Assessment Depression Assessment [facility] Start: 01-15-2023 Covid-19 Vaccine ( season) Covid-19 Vaccine ( season) [facility] Start: 01-15-2023 Influenza vaccination [facility] Start: 2022 Adult BMI Follow Up Plan Adult BMI Follow Up Plan [facility] Start: 2022 CHLAMYDIA SCREENING (18-24) CHLAMYDIA SCREENING (18-24) [facility] Start: 2022 GC (GONORRHEA) SCREENING (18-24) GC (GONORRHEA) SCREENING (18-24) [facility] Start: 2022 HEPATITIS C SCREENING HEPATITIS C SCREENING [facility] Start: 2022 Hepatitis C screening Hepatitis C Screening [facility] Start: 2022 HIV SCREENING HIV SCREENING [facility] Start: 2022 HIV screening HIV Screening [facility] Start: 2022 Screening for Chlamydia trachomatis Chlamydia Screening (18-24) [facility] Start: 05-17-2022 DEPRESSION ASSESSMENT DEPRESSION ASSESSMENT [facility] Start: 01-15-2022 Influenza vaccination INFLUENZA (#1) [facility] Start: 01-06-2021 COVID-19 VACCINE (3 - Booster for Pfizer series) COVID-19 VACCINE (3 - Booster for Pfizer series) [facility] Start: 2020 Meningococcal B Vaccine: Consider Based On Risk (1 of 2 - Patient Seeks Protection) Meningococcal B Vaccine: Consider Based On Risk (1 of 2 - Patient Seeks Protection) [facility] Start: 2020 MENINGOCOCCAL CONJUGATE (1 - 2-dose series) MENINGOCOCCAL CONJUGATE (1 - 2-dose series) [facility] Start: 2019 CHLAMYDIA SCREENING (<18) CHLAMYDIA SCREENING (<18) [facility] Start: 2019 GC (GONORRHEA) SCREENING (<18) GC (GONORRHEA) SCREENING (<18) [facility] Start: 2018 PEDS TO ADULT TRANSITION ANNUAL ASSESSMENT PEDS TO ADULT TRANSITION ANNUAL ASSESSMENT [facility] Start: 2016 Adult depression screening assessment DEPRESSION SCREENING [facility] Start: 2016 PEDS TO ADULT TRANSITION INITIAL DISCUSSION PEDS TO ADULT TRANSITION INITIAL DISCUSSION [facility] Start: 2016 Tobacco Screening Tobacco Screening [facility] Start: 2015 HPV VACCINE (1 - 2-dose series) HPV VACCINE (1 - 2-dose series) [facility] Start: 2014 MENINGOCOCCAL B: Consider based on risk (1 of 2 - Risk Bexsero 2-dose series) MENINGOCOCCAL B: Consider based on risk (1 of 2 - Risk Bexsero 2-dose series) [facility] Start: 2013 HPV VACCINE (1 - 2-dose series) HPV VACCINE (1 - 2-dose series) [facility] Start: 2011 Urine microalbumin profile DTAP,TDAP,TD (1 - Tdap) [facility] Start: 2005 MMR (1 of 2 - Standard series) MMR (1 of 2 - Standard series) [facility] Start: 2005 VARICELLA (1 of 2 - 2-dose childhood series) VARICELLA (1 of 2 - 2-dose childhood series) [facility] Start: 2004 POLIO (1 of 3 - 4-dose series) POLIO (1 of 3 - 4-dose series) [facility] Start: 2004 HEPATITIS B (1 of 3 - 3-dose series) HEPATITIS B (1 of 3 - 3-dose series) [facility] 17-Hydroxyprogestero ne [Mass/volume] in Serum or Plasma HYDROXYPROGESTERONE-17 Lab Routine PCOS (polycystic ovarian syndrome) 08/25/2023 8:23 AM EDT [facility] Work Phone: Bacteria identified in Urine by Culture Urine culture Microbiology Routine Missed menses Ordered: 12/07/2024 [facility] Comment on above: Ordered: 12/07/2024 CBC W Auto Different ial panel - Blood CBC and differential Lab Routine Missed menses , unspecified gestational age ([facility]) Ordered: 12/07/2024 [facility] Comment on above: Ordered: 12/07/2024 CHLAMYDIA TRACHOMATI S (GENITO/STI) CHLAMYDIA TRACHOMATIS (GENITO/STI) Lab Routine Exposure to STD Ordered: 01/02/2025 [facility] Comment on above: Ordered: 01/02/2025 End: 08-01-2024 ECG COMPLETE ECG COMPLETE ECG Routine Thyroiditis 1 Occurrences starting 08/02/2023 until 08/01/2024 [facility] Work Phone: Comment on above: 1 Occurrences starting 08/02/2023 until 08/01/2024 Hemoglobin A1c/Hemoglobin.total in Blood Hemoglobin A1c Lab Routine Missed menses , unspecified gestational age ([facility]) Ordered: 12/07/2024 [facility] Comment on above: Ordered: 12/07/2024 Hepatitis B virus melton rface Ag [Presence] in Serum or Plasma by Immunoassay Hepatitis B surface antigen Lab Routine Missed menses , unspecified gestational age ([facility]) Ordered: 12/07/2024 [facility] Comment on above: Ordered: 12/07/2024 Hepatitis C virus Ab [Presence] in Serum or Plasma by Immunoassay Hepatitis C antibody Lab Routine Missed menses , unspecified gestational age ([facility]) Ordered: 12/07/2024 [facility] Comment on above: Ordered: 12/07/2024 HIV-1/HIV-2 antigen/ antibody combination immunoassay HIV-1 and HIV-2 antibodies Lab Routine Missed menses , unspecified gestational age ([facility]) Ordered: 12/07/2024 [facility] Comment on above: Ordered: 12/07/2024 Neisseria gonorrhoea e DNA [Presence] in Unspecified specimen by SWAPNA with probe detection Neisseria gonorrhea DNA probe, direct Lab Routine Exposure to STD Ordered: 01/02/2025 [facility] Comment on above: Ordered: 01/02/2025 Reagin Ab [Presence] in Serum by RPR RPR Lab Routine Missed menses , unspecified gestational age ([facility]) Ordered: 12/07/2024 [facility] Comment on above: Ordered: 12/07/2024 Rubella antibody, IgG Rubella an tibody, IgG Lab Routine Missed menses , unspecified gestational age ([facility]) Ordered: 12/07/2024 [facility] Comment on above: Ordered: 12/07/2024 SURESWAB(R) ADVANCED VAGINITIS PLUS, TMA SURESWAB(R) ADVANCED VAGINITIS PLUS, TMA Pathology and Cytology Routine Vaginal discharge Ordered: 01/02/2025 [facility] Work Phone: Comment on above: Ordered: 01/02/2025 TESTOSTERONE, FREE AND TOTAL CAMRON TOSTERONE, FREE AND TOTAL Lab Routine PCOS (polycystic ovarian syndrome) 08/25/2023 8:23 AM EDT [facility] Work Phone: End: 01-02-2026 Thyrotropin [Units/volume] in Serum or Plasma TSH Lab Routine Thyroid disease H/O thyroidectomy [id number] for 10 Occurrences starting 01/02/2025 until 01/02/2026 [facility] Comment on above: [id number] for 10 Occurrences starting 12/15 until 01/02/2026 End: 11-28-2023 Thyroxine (T4) free [Mass/volume] in Serum or Plasma T4, free Lab Routine Postoperative hypothyroidism 1 Occurrences [facility] 10/29/2023 [facility]: 1 Occurrences starting 10/29/2023 until 11/28/2023 End: 03-31-2025 Thyroxine (T4) free [Mass/volume] in Serum or Plasma T4, free Lab Routine Postoperative hypothyroidism 1 Occurrences starting 03/31/2024 until 03/31/2025 [employer] Work Phone: Comment on above: 1 Occurrences starting 03/31/2024 until 03/31/2025 End: 05-15-2023 Us soft tissue head & neck real time imge docm US THYROID/PARATHYROID Radiology Routine Abnormal thyroid blood test History of thyroid nodule 1 Occurrences starting 04/15/2022 until 05/15/2023 [facility] Work Phone: Comment on above: 1 Occurrences starting 04/15/2022 until 05/15/2023 [facility] N Immunizations Immunization Date Immunization Notes Care Provider Peggy emery 03-31-2024 Covid-19, Mrna, Lnp- s, Pf,teresa-sucrose,30 Mcg/0.3ml Fall23 Anita Elmore [employer]ERY STOCK CLERK-[facility] Work Phone: [facility] 03-31-2024 Immunization, In Clinic,; Translations: [Drug or medicament (substance)] Anita Catarina [employer]OCERY STOCK CLERK-[facility] Work Phone: [facility] 02-18-2024 influenza, seasonal, injectable, preservative free Anita Elmore GROCERY STOCK CLERK-[facility] Work Phone: [facility] 02-18-2024 Immunization, In Clinic,; Translations: [Drug or medicament (substance)] Anita Elmore GROCERY STOCK CLERK-[facility] Work Phone: [facility] 02-18-2024 influenza virus vacc ine, unspecified formulation Gerardoarya Meredith Work Phone: [facility] 02-22-2023 influenza, injectabl e, quadrivalent, preservative free Anitalarry Gutierresuch GROCERY STOCK CLERK-[facility] Work Phone: [facility] 02-22-2023 influenza virus vacc ine, unspecified formulation Anita Catarina GROCERY STOCK CLERK-[facility] Work Phone: [facility] 12-26-2021 hepatitis A vaccine, pediatric/adolescent dosage, 2 dose schedule Anita Catarina GROCERY STOCK CLERK-[facility] Work Phone: [facility] 12-26-2021 Human Papillomavirus 9-valent vaccine Anita Catarina GROCERY STOCK CLERK-[facility] Work Phone: [facility] 12-26-2021 meningococcal oligosaccharide (groups A, C, Y and W-135) diphtheria toxoid conjugate vaccine (MCV4O) Anita Elmore GROCERY STOCK CLERK-[facility] Work Phone: [facility] 12-26-2021 tuberculin skin test ; purified protein derivative solution, intradermal Anita Elmore GROCERY STOCK CLERK-PATIENT INTAKE REPRESENTATIVE Work Phone: [facility] 12-19-2021 tuberculin skin test ; purified protein derivative solution, intradermal Anita Elmore GROCERY STOCK CLERK-PATIENT INTAKE REPRESENTATIVE Work Phone: [facility] 03-14-2020 influenza, injectabl e, quadrivalent, contains preservative Aime Schwerer Other [employer] Other 03-14-2020 influenza virus vacc ine, unspecified formulation [facility] Work Phone: [facility] 11-25-2015 tetanus toxoid, redu racheal diphtheria toxoid, and acellular pertussis vaccine, adsorbed Anita Elmore [employer]OC[employer] STOCK CLERK[facility] Work Phone: [facility] 11-25-2015 human papilloma viru s vaccine, quadrivalent Aime Schwerer Other [employer] Other 11-25-2015 meningococcal polysaccharide (groups A, C, Y and W-135) diphtheria toxoid conjugate vaccine (MCV4P) Aime Schwerer Other [employer] Other 09-09-2009 Diphtheria, tetanus toxoids and acellular pertussis vaccine, and poliovirus vaccine, inactivated Anita Elmore GROCERY STOCK CLERK[facility] Work Phone: [facility] 09-09-2009 measles, mumps and rubella virus vaccine Anita Elmore GROCERY STOCK CLERK-[facility] Work Phone: [facility] 09-09-2009 varicella virus vaccine Liliana Elmore GROCERY STOCK CLERK-[facility] Work Phone: [facility] 06-20-2007 diphtheria, tetanus toxoids and acellular pertussis vaccine Anita Elmore GROCERY STOCK CLERK-[facility] Work Phone: [facility] 09-13-2006 diphtheria, tetanus toxoids and acellular pertussis vaccine Anita Elmore [facility] Work Phone: [facility] 09-13-2006 haemophilus influenz ae type b vaccine, PRP-T conjugate Anita Elmore [facility] Work Phone: [facility] 09-13-2006 measles, mumps, rube lla, and varicella virus vaccine Anita Elmore [facility] Work Phone: [facility] 09-13-2006 pneumococcal conjuga te vaccine, 7 valent Anita Elmore [facility] Work Phone: [facility] 09-13-2006 poliovirus vaccine, inactivated Anitalarry Elmore [facility] Work Phone: [facility] 06-23-2005 diphtheria, tetanus toxoids and acellular pertussis vaccine Anitalarry Elmore [facility] Work Phone: [facility] 06-23-2005 haemophilus influenz ae type b conjugate and Hepatitis B vaccine [facility] Work Phone: [facility] 06-23-2005 influenza, seasonal, injectable Anita Elmore [facility] Work Phone: [facility] 06-23-2005 pneumococcal conjuga te vaccine, 7 valent Anita Elmore [facility] Work Phone: [facility] 06-23-2005 poliovirus vaccine, inactivated Anita Elmore [facility] Work Phone: [facility] 2004 diphtheria, tetanus toxoids and acellular pertussis vaccine [facility] Work Phone: [facility] 2004 haemophilus influenz ae type b conjugate and Hepatitis B vaccine [facility] Work Phone: [facility] 2004 pneumococcal conjuga te vaccine, 7 valent Anita Catarina GROCERY STOCK CLERK-PATIENT INTAKE REPRESENTATIVE [facility] 2004 poliovirus vaccine, inactivated Anita Elmore GROCERY STOCK CLERK-PATIENT INTAKE REPRESENTATIVE Work Phone[facility] 2004 hepatitis B vaccine, pediatric or pediatric/adolescent dosage Anita Elmore GROCERY STOCK CLERK-PATIENT INTAKE REPRESENTATIVE Work Phone: [facility] Payers Date Payer Category Payer Medicaid HMO [facility] [id number] 2024 Private Health Insurance [facility] MEDICAID Member Subscriber Plan / Payer (Effective 2024-Present) Name: Sheyla Lea Relation to Subscriber: Self Name: Sheyla Lea Payer ID: Not on file Group ID: Not on file Type: Not on file Address: [place] [id number] 2024 Medicaid [id number] 2024 Private Health Insurance [id number] 2024 Self-pay [id number] 2017 [place] Blue Shield [id number] 2017 [employer] - Other ANTHEM Member Subscriber Plan / Payer (Effective 2017-Present) Name: Sheyla Lea I Relation to Subscriber: Child Name: MIRNA SAMUEL Date of : 1975 Address: [address] [place] [address] Payer ID: [id number] (NAIC) Type: Not on file Address: [address] [place] [phone] [id number] 2017 Unknown [id number] 2014 [employer] - PPO ANTHEM Member Subscriber Plan / Payer (Effective 2014-Present) Name: Sheyla Lea I Relation to Subscriber: Child Name: MANA SAMUEL Date of : 1979 Address: [address] [place] [address] Payer ID: [id number] (NAIC) Type: Not on file Address: [address] [place] [id number] [id number] 2014 Unknown [id number] 2014 Unknown [id number] 2004 Unknown [id number] 2.16.840.1.327259.3.579. 2.718 2004 Unknown [id number] 2.16.840.1.876290.3.579. 2. 2004 Unknown [id number] 2.16.840.1.935728.3.579. 2. 2004 Unknown [id number] 2.16.840.1.657997.3.579. 2. 2004 Unknown [id number] 2.16.840.1.227133.3.579. 2. 2004 Unknown [id number] 2.16.840.1.842563.3.579. 2. 2004 Unknown [id number] 2.16.840.1.711179.3.579. 2. 2004 Unknown [id number] 2.16.840.1.816979.3.579. 2.1285 2004 Unknown [id number] 2.16840.1.994562.3.579. 2.1285 2004 Unknown [id number] 2.16840.1.303640.3.579. 2.1285 2004 Unknown [id number] 2.16.840.1.168552.3.579. 2.1285 2004 Unknown [id number] 2.16.840.1.199310.3.579. 2.1285 2004 Unknown [id number] 2.16.840.1.059991.3.579. 2.1285 2004 Unknown [id number] 2.16.840.1.175451.3.579. 2.1285 2004 Unknown [id number] 2.16.840.1.456591.3.579. 2.1285 2004 Unknown [id number] 2.16.840.1.276552.3.579. 2.1285 2004 Unknown [id number] 2.16.840.1.279373.3.579. 2.1285 2004 Unknown [id number] 2.16.840.1.370129.3.579. 2.1286 2004 Unknown [id number] 2.16.840.1.688999.3.579. 2.1286 2004 Unknown [id number] 2.16.840.1.540982.3.579. 2.1286 2004 Unknown [id number] 2.16.840.1.749364.3.579. 2.1286 2004 Unknown [id number] 2.16.840.1.125985.3.579. 2.1259 2004 Unknown [id number] 2.16.840.1.383640.3.579. 2.1258 2004 Unknown [id number] 2.16.840.1.440921.3.579. 2.1258 2004 Unknown [id number] 2.16.840.1.607216.3.579. 2.1258 2004 Unknown [id number] 2.16.840.1.399954.3.579. 2.9 2004 Unknown [id number] 2.16.840.1.422131.3.579. 2.1258 2004 Unknown [id number] 2.16.840.1.726523.3.579. 2.9 2004 Unknown [id number] 2.16.840.1.532875.3.579. 2.1258 2004 Unknown [id number] 2.16.840.1.399836.3.579. 2.1259 2004 Unknown [id number] 2.16.840.1.705290.3.579. 2.1258 2004 Unknown [id number] 2.16.840.1.532399.3.579. 2.1259 1978 Unknown [id number] 2.16.840.1.434621.3.579. 2.718 Unknown [facility] [id number] Unknown [id number] 2.16.840.1.786840.3.579. 2.531 Unknown [id number] 2.16.840.1.524106.3.579. 2.531 Unknown [id number] 2.16.840.1.813490.3.579. 2.531 Social History Date Type Detail Facility Start: 04-15-2022 End: 01-09-2023 Tobacco smoking status NHIS Never smoked tobacco [facility] History of tobacco use Passive smoker [facility] Start: 04-15-2022 End: 01-09-2023 Tobacco use and exposure Smokeless tobacco non-user [facility] Start: 04-15-2022 End: 02-18-2024 Alcohol intake Current non-drinker of alcohol (finding) [facility] Start: 04-15-2022 Tobacco Comment mom & dad both smoke in house [facility] Start: 2004 Sex Assigned At Not on file [facility] Start: 04-05-2022 End: 04-19-2022 Exposure to SARS-CoV-2 (event) Not sure [facility] Start: 04-15-2022 End: 01-25-[address] [facility] Start: [facility] Sex Assigned At Female [facility] Start: 04-15-2022 End: 01-25-2024 History of Social function [facility] National Score (1-100), lower number is lower risk Not on file [facility] Start: 01-25-2024 End: 01-02-2025 Alcoholic beverage intake Lifetime non-drinker (finding) [facility] Start: 01-05-2023 Gender identity Identifies as female gender (finding) [facility] Start: 04-29-2017 Sex Female (finding) [facility] Start: 10-28-2024 [facility] Start: 12-28-2024 End: 12-29-2024 Alcoholic beverage intake Ex-drinker (finding) [facility] Goals Date Patient Goal Desired Activity /State Personal health goal Personal health goal Clinical Notes 06-17-2017 to 01-31-2025 ELIJAH Martinez - 01/31/2025 4:00 PM Vane Strickland LPN - 01/02/2025 11:10 AM Yvonne Guzmán RN - 12/29/2024 10:00 AM Supa Loya MD - 12/29/2024 10:00 AM EDTPatient Instructions Note Date & Type Note Facility 01-31-2025 History of Presen t illness Narrative Reason for Appointment: Patient ID: Sheyla Lea is a 19 y.o. female who presents for No chief complaint on file. Patient presents today for Return OB appointment. [...] (PROTONIX) 40 mg, Daily before breakfast ALLERGIES No Known Allergies PROBLEMS Active Ambulatory [...] Hiatal hernia Ingrown toenail Irregular bleeding Irregular mens2019 Menorrhagia with irregular cycle Mild major depression [...] breath sounds. Abdominal: Palpations: Abdomen is soft. Musculoskeletal: General: Normal range of motion. Neurological: General: No focal deficit present. Mental Status: She is alert and oriented to person, place, and time. Psychiatric: Mood and Affect: Mood normal. Behavior: Behavior normal. Thought Content: Thought content normal. Judgment: Judgment normal. Vitals and nursing note reviewed. Vitals: Estimated body mass index is 42.3 kg/m as calculated from the following: Height as of 24: 5' 3 . Weight as of this encounter: 238 lb 12.8 oz. BP: 120/76 Patient's last menstrual period was 10/02/2024. ASSESSMENT & PLAN ICD-10-CM 1. 15 weeks gestation of ([facility]) Z3A.15 POCT urinalysis dipstick manually resulted Alpha fetoprotein, maternal Alpha fetoprotein, maternal 2. Second trimester ([facility]) Z34.92 POCT urinalysis dipstick manually resulted Alpha fetoprotein, maternal Alpha fetoprotein, maternal 3. Screening, , for anatomic survey ([facility]) Z36.89 CANCELED: US OB 14+ weeks anatomy scan Return OB: Patient presents today for a routine obstetrics appointment. Patient is currently 15w5d . Patient states she is doing well but has complaints of being tired due to current . Patient has verbalizes frequent movement. Orders Placed This Encounter Procedures Alpha fetoprotein, maternal POCT urinalysis dipstick manually resulted Follow Up: Patient is to return to office in 4 week for routine OB appointment. Documented by ELIJAH Martinez on behalf of: ELIJAH Martinez documented in this encounter [facility] 01-02-2025 History of Presen t illness Narrative Reason for Appointment: Patient ID: Sheyla Lea is a 19 y.o. female who presents for Routine Visit Patient presents today for STD Check. and Return OB appointment. MEDICATIONS Current Outpatient Medications Medication Instructions buPROPion SR (WELLBUTRIN SR) 150 mg, Oral, Daily, Take 1 tablet daily busPIRone (Buspar) 5 MG tablet 2 times daily levothyroxine (SYNTHROID, LEVOXYL) 175 mcg, Oral, Daily before breakfast liothyronine (CYTOMEL) 5 mcg, Oral, Daily magnesium oxide (MAG-OX) 400 mg, Oral, Daily pantoprazole (PROTONIX) 40 mg, Daily before breakfast ALLERGIES No Known Allergies PROBLEMS Active Ambulatory [...] Constitutional: Appearance: Normal appearance. She is well-developed. Genitourinary: Vulva normal. Cardiovascular: Rate and Rhythm: Normal rate and [...] nursing note reviewed. Exam conducted with a netbackup administrator present. Vitals: Estimated body mass index is 41.45 kg/m as calculated from the following: Height as of 05/09/24: 5' 3 . Weight as of this encounter: 234 lb. BP: 108/70 Patient's last menstrual period was 10/02/2024. ASSESSMENT & PLAN ICD-10-CM 1. 11 weeks gestation of ([facility]) Z3A.11 POCT urinalysis dipstick manually resulted 2. First trimester ([facility]) Z34.91 POCT urinalysis dipstick manually resulted 3. Thyroid disease E07.9 4. H/O thyroidectomy Z98.890 Z90.89 5. Exposure to STD Z20.2 CHLAMYDIA TRACHOMATIS (GENITO/STI) Neisseria gonorrhea DNA probe, direct 6. Vaginal discharge N89.8 SURESWAB(R) ADVANCED VAGINITIS PLUS, TMA Patient presents today for a routine obstetrics appointment. Patient is currently 11w3d with a Estimated Date of Delivery: 07/21/25. Cultures obtained. Pt has complaints of constipation, rx for dulcolax faxed to pharmacy. Pt to have tsh redrawn every 4 weeks. Pt to return in 4 weeks for scheduled OB appt. Documented by Bella Strickland LPN on behalf of: Gerardo Meredith DO documented in this encounter [facility] [facility] History of Presen t illness Narrative Headache/epigastric pain/blurry vision/swelling? No Cramping/contractions? Patient reports abdominal cramping overnight, states may be due to constipation Spotting/vaginal bleeding? No Loss or gush of fluid like your water may have broken? No Do you have cats at home? No Do you change the litter box (reason: risk of toxoplasmosis)? N/A Genetic testing done this here or other office? Yes Have you been seen here at [facility] in a previous ? No Recent ER visits or hospitalizations? Patient reports [facility] ED visit around 8/4, nausea, concern for thryroid function Bring blood sugar log or meter with you today? (Please bring them with you for every visit at [facility]) N/A Flu vaccine (Mar-July)? N/A Any concerns that you would like me to mention to the provider today? No REASON FOR CONSULTATION: Postsurgical hypothyroidism. HISTORY OF PRESENT ILLNESS: Sheyla Lea is a pleasant 19 y.o. G 1 P0. at 10w6d due on Estimated Date of Delivery: 07/21/25 . Patient was seen today due to the following 1. Postsurgical hypothyroidism. 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 Since then the patient has been under svp monetization treatment. However the patient now wants to switch svp monetization. She would prefer endocrinology from [place]. Most recent free T4 within normal limits. Elevated TSH Most likely due to surgical hypothyroidism 2. Maternal increased BMI and is a candidate for testing and growth ultrasounds at her local hospital. 3. Maternal anxiety depression currently on medication with good mood. Patient will need early visit to screen for depression. Currently the patient has no complaints. The patient denies nausea, vomiting, abdominal pain, vaginal bleeding, SOB or chest pain. Patient's PMH/PSH,SH,PSYCH Hx, MEDs, ALLERGIES, and ROS were all reviewed and updated in the appropriate sections. Patient Active Problem List Diagnosis Tonsillar hypertrophy History of otitis media Dysfunction of both eustachian tubes Nasal obstruction Thrush S/P tonsillectomy Epistaxis Abnormal thyroid blood test Generalized anxiety disorder GERD (gastroesophageal reflux disease) Moderate major depression (CMS-HCC) Thyroid nodule Postoperative hypothyroidism PCOS (polycystic ovarian syndrome) Pharyngoesophageal dysphagia Delayed gastric emptying Retained food in stomach Constipation Dyspepsia Gastroparesis Hemorrhoids Ingrown toenail Irregular bleeding Nausea Symptom associated with female genital organs Unintended weight loss Vomiting Past Medical History: Diagnosis Date Allergic seasonal Anxiety Depression Dysfunction of both eustachian tubes Dysmenorrhea Dyspepsia Dysphagia Epistaxis Gastroparesis GERD (gastroesophageal reflux disease) Hypothyroidism PCOS (polycystic ovarian syndrome) Visual impairment PAST OBSTETRICAL HISTORY: OB History 1 Para Term AB Living SAB IAB Ectopic Multiple Live Births SURGICAL HISTORY: Past Surgical History: Procedure Laterality Date ESOPHAGOGASTRODUODENOSCOPY DIAGNOSTIC N/A 02/04/2024 Performed by Niki Hollis DO at [facility] EUSTACHIAN TUBE DILATION Bilateral 06/28/2017 Performed by Abdullahi Cavazos MD at [facility] MYRINGOTOMY W/ TUBES 2010 PELVIC LAPAROSCOPY 01/28/2024 THYROIDECTOMY 09/03/2023 TONSILLECTOMY ADENOIDECTOMY Bilateral 06/28/2017 Performed by Abdullahi Cavazos MD at [facility] ALLERGIES: No Known Allergies CURRENT MEDICATIONS: Current Outpatient Medications: buPROPion SR (WELLBUTRIN SR) 150 mg 12 hr tablet, Take 1 tablet (150 mg total) by mouth in the morning., Disp: , Rfl: levothyroxine (SYNTHROID, LEVOTHROID) 175 MCG tablet, TAKE 1 TABLET BY MOUTH IN THE MORNING, Disp: 90 tablet, Rfl: 1 liothyronine (CYTOMEL) 5 MCG tablet, Take 1 tablet (5 mcg total) by mouth in the morning., Disp: , Rfl: magnesium oxide (MAGOX) 400 mg tablet, Take 1 tablet (400 mg total) by mouth in the morning., Disp: , Rfl: ondansetron ODT (ZOFRAN ODT) 4 mg disintegrating tablet, DISSOLVE 1 TABLET (4 MG TOTAL) ON TONGUE EVERY 8 HOURS NEEDED FOR NAUSEA AND VOMITING, Disp: 20 tablet, Rfl: 1 pantoprazole (PROTONIX) 20 mg EC tablet, TAKE 1 TABLET (20 MG TOTAL) BY MOUTH IN THE MORNING, Disp: 90 tablet, Rfl: 1 venlafaxine XR (EFFEXOR XR) 37.5 mg 24 hr capsule, Take 1 capsule (37.5 mg total) by mouth in the morning., Disp: , Rfl: clindamycin-benzoyl peroxide (BENZACLIN) gel, APPLY TO AFFECTED AREA TOPICALLY IN THE MORNING AND AT BEDTIME, Disp: 25 g, Rfl: 1 clobetasoL (TEMOVATE) 0.05 % cream, Apply 1 Application topically in the morning and 1 Application before bedtime., Disp: 30 g, Rfl: 0 metFORMIN (GLUCOPHAGE) 500 mg tablet, Take 2 tablets (1,000 mg total) by mouth in the morning. (Patient not taking: Reported on 12/29/2024), Disp: , Rfl: promethazine (PHENERGAN) 12.5 mg tablet, Take 1 tablet (12.5 mg total) by mouth every 6 (six) hours as needed for nausea or vomiting. (Patient not taking: Reported on 12/29/2024), Disp: , Rfl: FAMILY/GENETIC HISTORY: No family history of VTE, cardiac defects and mental retardation . RECENT HOSPITALIZATION: none I did review all the labs results available in addition to labs which were ordered by the primary care physician, and the other consultants, we search on epic and all the available care everywhere epic I did review all the imaging studies of the patient available on EMR, ordered by the primary care physician and the other heritage consultant HABITS: Patient activity no restrictions, diet no restrictions REVIEW OF SYSTEM: Head and Neck: Negative for any dizziness and headaches. Cardiovascular and Respiratory System: Denies any chest pain, shortness of breath, and coughing. Abdominal and System: Denies any abdominal pain, nausea, vomiting, vaginal bleeding, and vaginal discharge PHYSICAL EXAMINATION: BP 109/59 Pulse 86 Ht 160 cm (5' 2.99 ) Wt 106.2 kg (234 lb 3.2 oz) LMP 10/02/2024 BMI 41.50 kg/m . Gravid abdomen, Respirations not labored. Well oriented time place person, normal gait MEDICAL DECISION MAKING DISCUSSION: I explained there is a 1% incidence of hypothyroidism in the general population. The thyroid is important for normal growth and maintenance of lipid and carbohydrate metabolism. We discussed the pathophysiology of thyroid regulation including stimulation of the thyroid from TSH from the anterior pituitary. In , the physiology changes somewhat due to increased amounts of hormones such as estrogen which blocks the degradation of thyroid binding globulin and human chorionic gonadotropin which stimulates thyroid hormone secretion and suppresses TSH. Throughout , there is a 30-50% increase in the requirement of throxine. In the fetus, the small amount of thyroxine that crosses the placenta provides thyroid hormone until 10-12 weeks. After this time, the fetus begins to synthesis thyroid hormone. We also discussed hypothyroidism often occurs due to Hellen s thyroiditis. If this occurs, there can be antibodies circulating in the patient which cross the placenta and act on the fetus. The fetus can then develop a goiter. Although this is rare, but can be found if the maternal circulating antibodies are elevated. Some of the complications in associated with untreated or partially treated hypothyroidism are preeclampsia, abruption, and low weight. When the maternal free T4 is very low in , the is at risk for impaired psychomotor function and a significantly lower IQ. Therefore, recommendations are to maintain serum TSH 0.5-2.0 microIU/ml and Free T4 in the upper third of normal range. Measure TSH and Free T4 every 4 weeks and patient should go back to pre- dosing in the PP period. RECOMMENDATION: 1. Continue Synthroid and Cytomel with every 4 weeks free T4 2. Referral to Dr. Haji endocrinology at [facility]. 3. Targeted anatomy at 20 weeks gestation at our [facility] site. 4. Serial growth ultrasounds every 4 weeks at her OB office. 5. Initiate testing form once a week NST and BRADY at 32 weeks gestation. 6. Increase testing to twice weekly NST and weekly BRADY at 36 weeks gestation OB office. 7. Term spontaneous vaginal delivery at local hospital is anticipated with C section reserve for routine obstetrical indications. 8. Early visit for screening depression. DISPOSITION: At this point the patient is in complete care of her supervisor firearms. Patient does have ultrasound office visit scheduled with us. Thank you for allowing me to participate in Sheyla Lea . If there any questions please do not hesitate to contact us. Sincerely, YUVAL LOYA MD documented in this encounter [facility] 12-19-2024 History of Presen t illness Narrative [...] nursing note reviewed. Exam conducted with a netbackup administrator present. Vitals: Estimated body mass index is 41.12 kg/m as calculated from the following: Height as of 24: 5' 3 . Weight as of this encounter: 232 lb 1.9 oz. BP: 118/78 Patient's last menstrual period was 10/02/2024. ASSESSMENT & PLAN ICD-10-CM 1. First trimester ([facility]) Z34.91 POCT urinalysis dipstick manually resulted 2. 9 weeks gestation of ([facility]) Z3A.09 POCT urinalysis dipstick manually resulted 3. Encounter to discuss test results Z71.2 Pt is 9 weeks 3 days and was seen in ER for nausea and vomiting. Rx for antivert and mag oxide faxed to pharmacy. Pt being referred to [facility] for thyroid disease in and referred to [facility] for zofran pump. Pt to return in 4 weeks for scheduled OB appt. Documented by Bella Strickland LPN on behalf of: Gerardo Meredith DO documented in this encounter [facility] 12-07-2024 History of Presen t illness Narrative [...] or undercooked meat, and stay away from [facility]. Patient has also been advised to [...] Tabitha Rice LPN documented in this encounter [facility] 11-22-2024 History of Presen t illness [...] nursing note reviewed. Exam conducted with a netbackup administrator present. Vitals: Estimated body mass index is 40.23 kg/m as calculated from the following: Height as of 24: 5' 3 . Weight as of this encounter: 227 lb 1.9 oz. BP: 128/80 Patient's last menstrual period was 10/02/2024. ASSESSMENT & PLAN ICD-10-CM 1. Nausea R11.0 2. Cramping affecting , antepartum ([facility]) O26.899 POCT , urine manually resulted R10.9 [...] of: ELIJAH Martinez documented in this encounter [facility] 04-10-2024 History of Presen t illness [...] Past Medical History: Diagnosis Date Hypothyroidism (acquired) ([facility]) Irregular menses 2019 HISTORY PAST MEDICAL HISTORY [...] nursing note reviewed. Exam conducted with a netbackup administrator present. Vitals: Estimated body mass index is [...] Gerardo Meredith DO documented in this encounter [facility] 03-31-2024 History of Presen t illness Narrative [address] [place] [address] Patient: Sheyla Lea Date of : 2005 [...] hernia. She was sent to GI in [place] who ordered a gastric emptying study which [...] 02/04/2024 Performed by Niki Hollis DO at [facility] EUSTACHIAN TUBE DILATION Bilateral 06/28/2017 Performed by Abdullahi Cavazos MD at [facility] MYRINGOTOMY W/ TUBES 2010 PELVIC LAPAROSCOPY 01/28/2024 THYROIDECTOMY 09/03/2023 TONSILLECTOMY ADENOIDECTOMY Bilateral 06/28/2017 Performed by Abdullahi Cavazos MD at [facility] Current Outpatient Medications Medication Sig Dispense [...] EARL APRN-CNP 04/04/242143 documented in this encounter [facility] 03-07-2024 History of Presen t [...] nursing note reviewed. Exam conducted with a netbackup administrator present. Vitals: Estimated body mass index is [...] Gerardo Meredith DO documented in this encounter [facility] 02-23-2024 Miscellaneous Notes I called pt and read result note. Pt verbally states she understands. documented in this encounter [facility] 02-23-2024 Telephone encounter Note I called pt and read result note. Pt verbally states she understands. [facility] 02-18-2024 History of Presen t illness Narrative [address] [place] [address] Patient: Sheyla Lea Date of : 2005 Encounter Date: 02/18/2024 History of Present Illness: The patient is a 18 y.o. female, an established patient, and is here for Chief Complaint Patient presents with post op . HPI Patient is here to follow-up on her EGD results through Dr. Hollis. Patient saw GI in [place] 1 week ago and a gastric emptying [...] having more migraines lately to her right confucianist area when she moves her head and [...] 02/04/2024 Performed by Niki Hollis DO at [facility] EUSTACHIAN TUBE DILATION Bilateral 06/28/2017 Performed by Abdullahi Cavazos MD at [facility] MYRINGOTOMY W/ TUBES 2011 PELVIC LAPAROSCOPY 01/28/2024 THYROIDECTOMY 09/03/2023 TONSILLECTOMY ADENOIDECTOMY Bilateral 06/28/2017 Performed by Abdullahi Cavazos MD at [facility] Current Outpatient Medications Medication Sig Dispense [...] APRN-CNP 02/21/24 1427 documented in this encounter [email or web address] 02-03-2024 History of Presen t illness Narrative Reason for Appointment: Patient ID: Sheyla Lea is a 18 y.o. female who presents for No chief complaint on file. Patient presents today via telephone call for a telehealth appointment. Patients Phone #: [phone] (mobile) Current Medications: has a current medication list which includes the following prescription(s): hydroxyzine hcl, levothyroxine, metformin, minocycline, norgestimate-ethinyl estradiol, norgestimate-ethinyl estradiol, omeprazole, ondansetron odt, phentermine, sertraline, and venlafaxine xr. Medical History: Active Ambulatory Problems Diagnosis Date Noted No Active Ambulatory Problems Resolved Ambulatory Problems Diagnosis Date Noted No Resolved Ambulatory Problems Past Medical History: Diagnosis Date Hypothyroidism (acquired) ([facility]) Family History Problem Relation Name Age of [...] of: ELIJAH Martinez documented in this encounter [facility] 02-03-2024 History of Presen t illness Narrative [address] [facility] [id number] Patient: Sheyla Lea Date of : 2005 [...] 02/04/2024 Performed by Niki Hollis DO at [facility] EUSTACHIAN TUBE DILATION Bilateral 06/28/2017 Performed by Abdullahi Cavazos MD at [facility] MYRINGOTOMY W/ TUBES 2010 PELVIC LAPAROSCOPY 01/28/2024 THYROIDECTOMY 09/03/2023 TONSILLECTOMY ADENOIDECTOMY Bilateral 06/28/2017 Performed by Abdullahi Cavazos MD at [facility] Current Outpatient Medications Medication Sig Dispense [...] APRN-CNP 02/08/24 1639 documented in this encounter [facility] 01-26-2024 Miscellaneous Notes Patient was called and encouraged to not gerd medication and to take but as needed and to call and set wellness up. Patient scheduled next year for wellness and 03/31/24 for med visit. documented in this encounter [facility] 01-26-2024 Telephone encounter Note Patient was called and encouraged to not gerd medication and to take but as needed and to call and set wellness up. [facility] 01-26-2024 Telephone encounter Note Patient scheduled next year for wellness and 03/31/24 for med visit. [facility] 01-25-2024 History of Presen t [...] Past Medical History: Diagnosis Date Hypothyroidism (acquired) ([facility]) HISTORY PAST MEDICAL HISTORY SOCIAL HISTORY Past Medical History: Diagnosis Date Hypothyroidism (acquired) ([facility]) Social History Tobacco Use Smoking status: Never [...] Gerardo Meredith DO documented in this encounter [facility] 01-23-2024 Miscellaneous Notes I will give her a 90 day supply if that is cheaper but I do not want pt to continuously take this medication for long period. If she is still struggling w GERD when taking this PRN please set her up to see me - wellness if due if fine documented in this encounter [facility] 01-23-2024 Telephone encounter Note I will give her a 90 day supply if that is cheaper but I do not want pt to continuously take this medication for long period. If she is still struggling w GERD when taking this PRN please set her up to see me - wellness if due if fine [facility] 11-25-2023 Miscellaneous Notes Please remind pt, she cannot take hydroxyzine if she is Notified via [employer] documented in this encounter [facility] 11-25-2023 Telephone encounter Note Please remind pt, she cannot take hydroxyzine if she is [facility] 11-25-2023 Telephone encounter Note Notified via [employer] [facility] 11-25-2023 Miscellaneous Notes Please remind pt, she cannot take hydroxyzine if she is documented in this encounter [facility] 11-25-2023 Telephone encounter Note Please remind pt, she cannot take hydroxyzine if she is [facility] 11-23-2023 History of Presen t [...] as needed (heartburn). documented in this encounter [facility] [facility] 10-28-2023 History of Presen t illness [place] [address] Patient: Sheyla Lea Date of : 2005 [...] help regulate her menses. She sees her installer soft top again in 1 month and also has a transvaginal ultrasound scheduled for lower pelvic pain. She has a history of ovarian cysts. Her installer soft top thinks her lack of periods and irregular [...] 06/28/2017 Performed by Abdullahi Cavazos MD at [facility] MYRINGOTOMY W/ TUBES 2010 THYROIDECTOMY 09/03/2023 TONSILLECTOMY ADENOIDECTOMY Bilateral 06/28/2017 Performed by Abdullahi Cavazos MD at [facility] Current Outpatient Medications Medication Sig Dispense [...] APRN-CNP 11/02/23 1602 documented in this encounter [facility] 10-04-2023 Telephone encounter Note Requester: Patient Patients [...] No Patient is completely out of medication. [facility] 10-04-2023 Miscellaneous Notes Requester: Patient Patients last [...] out of medication. documented in this encounter [facility] 09-28-2023 History of Presen t illness Narrative Subjective Patient ID: Sheyla Lea is a 18 y.o. female. She is just recovering from a thyroidectomy on 4/19 Onset of these symptoms 2 days ago [...] Bartholomew 09/28/23 1300 documented in this encounter [facility] [facility] 09-09-2023 Note HNO ID: [id number] Author: LATASHA BOBO MD Service: ? Author Type: Physician Type: Progress Notes Filed: 10/15/2023 00:28 Note Text: [facility] Note CC: Post op of [...] aryepiglottic folds, pyriform sinuses, and lateral pharyngeal dmuont. True vocal cord movement was intact bilaterally. [...] findings and treatment plan. Latasha Bobo MD [facility] 09-09-2023 History of Presen t illness Narrative [facility] Note CC: Post op of [...] Latasha Bobo MD documented in this encounter [facility] 09-09-2023 Nurse Note Tobacco Use: Never Was smoking cessation packet given? N/A - Patient is a non-smoker or quit >1 year ago. Was a referral initiated?N/A Patient is a non-smoker [facility] 09-09-2023 Nurse Note Tobacco Use: Never Was smoking cessation packet given? N/A - Patient is a non-smoker or quit >1 year ago. Was a referral initiated?N/A Patient is a non-smoker documented in this encounter [facility] 09-04-2023 Note HNO ID: [id number] Author: PEG RICKETTS MD Service: Otolaryngology Author Type: Resident Type: Progress Notes Filed: 09/04/2023 08:34 Note Text: [facility] OT[facility] - HEAD AND NECK SURGERY PROGRESS NOTE PAGE [phone] AFTER 1700 AND ON WEEKENDS Patient Name: Sheyla Lea Age: [age] year old Sex: female Date: September 04, 2023 Admission Date: 09/03/2023 Hospital Day: 0 ASSESSMENT/PLAN: Sheyla Lea is a 18 year old female who has been followed for total thyroidectomy - DC drain - DC home Peg Ricketts MD PGY-2 Otolaryngology/Head and Neck Surgery [phone] Service Pager [phone] - please page after 5pm and on [...] 0659 09/04/23 07 - 09/05/23 0659 Shift [id number] 0895-9539 9808-4466 24 Hour Total 0343-8752 9970-4401 6410-6115 24 Hour Total INTAKE PO 200 200 PO 200 200 IV 2000 423 1122 3545 OR Crystalloid intake (mL) 1000 1000 Volume (mL) (ceFAZolin iv piggyback 2 g in D5W (iso-osmotic) 100 mL (ANCEF)) 100 100 Volume (mL) (lactated ringers iv infusion) 1000 1000 Volume (mL) (NaCl 0.9% iv infusion) 423 1022 1445 Shift Total 1999 623 1122 3745 OUTPUT Urine 109 441 1747 1650 Void (ml) 437 566 5983 1650 Tubes 17.5 10 27.5 Drain/Tube Output (Drain/Tube 09/03/23 1124 [facility] Niels [place] Midline Anterior Neck) 17.5 10 27.5 [...] active hospital problems. * thyroid POA: Yes [facility] 09-03-2023 Note HNO ID: [id number] Author: PATRICIA ARAGON APRN.NETBACKUP ADMINISTRATOR Service: ? Author Type: Nurse Apprentice Cook Type: Anesthesia Procedure Notes Filed: 09/03/2023 07:56 Note Text: ANESTHESIOLOGY PROCEDURE NOTE Airway General Information Procedure Start Time/Medication Administration: 09/03/2023 7:31 AM Procedure End Time: 09/03/2023 7:32 AM Patient location during procedure: OR Timeout Performed Pre-procedure: timeout performed Consent Obtained: Yes Patient identity confirmed: arm band and patient Staffing NETBACKUP ADMINISTRATOR: Patricia Aragon APRN.NETBACKUP ADMINISTRATOR Indications and Patient Condition Indications for airway management: anesthesia and airway protection Preoxygenated: yes anesthesia circuit Method: asleep Cricoid Pressure: No Manual In-Line Stabilization: No Difficult Mask: No Final Airway Details Final airway type: endotracheal airway Final Endotracheal Airway: NIM tube Cuffed: yes Successful intubation technique: video laryngoscopy Devices used: Terry Endotracheal tube insertion site: oral ETT size (mm): 7.0 Measured from: lips Measurement (cm): 22 Placement verified by: capnometry Cormack-Lehane Classification: grade I - full view of glottis Number of attempts at approach: 1 Failed airway: no Unrecognized esophageal intubation: no Airway not difficult SIGNATURE: Patricia Aragon APRN.CRNA PATIENT NAME: Sheyla Lea DATE: September 03, 2023 TIME: 7:55 AM CSN: [id number] [facility] 08-25-2023 Miscellaneous Notes Addended by: JOHN HUMPHREY on: 08/25/2023 02:01 PM Modules accepted: Orders documented in this encounter [facility] 08-25-2023 History of Presen t illness Narrative [address] [facility] [address] Patient: Sheyla Lea Date of : 2005 Encounter Date: 08/25/2023 History of Present Illness: The patient is a 18 y.o. female, an established patient, and is here for Chief Complaint Patient presents with New Patient . HPI Patient is here to establish care from [facility] where she saw Shanna hewitt nurse practitioner. She recently moved to [place] and this is a closer drive for her. 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 In the last several months her [...] thyroidectomy surgery scheduled for September 02 with [facility] for nodules, chronic pharyngitis and family [...] 06/28/2017 Performed by Abdullahi Cavazos MD at [facility] MYRINGOTOMY W/ TUBES 2010 TONSILLECTOMY ADENOIDECTOMY Bilateral 06/28/2017 Performed by Abdullahi Cavazos MD at [facility] Current Outpatient Medications Medication Sig Dispense [...] APRN-CNP 08/25/23 1410 documented in this encounter [facility] [facility] 08-25-2023 Instructions John Humphrey PA-C - 08/25/2023 7:49 AM EDT PATIENT PREOPERATIVE INSTRUCTIONS No ref. provider found has scheduled you for your procedure at this surgery center: [facility] Scheduling Office: [phone] --[address] [place] [address]. Please read below carefully for your personalized [...] taking for the 08/25/23 encounter (PAT) with [address] [place] [address]. If you start any new medications after [...] Procedures: - YOU MUST HAVE A RESPONSIBLE MUSHROOM CULTIVATOR TAKE YOU HOME. A PEDIATRICIAN OR CREPING MACHINE OPERATOR HELPER CANNOT BE MADE A RESPONSIBLE MUSHROOM CULTIVATOR. - We recommend that a responsible person [...] call the Wednesday before. Your surgeon s forms examiner will tell you what time to call the office. - If you have not reached the departmental forms examiner by 5 P.M., call [phone] after 5 P.M. the day before your surgery. Please be aware that emergency situations arise, which may delay or change your surgical time. If this happens, we will notify you as soon as possible and regret any inconvenience. If you already have an Advance Directive, please fax a copy to [phone] or email to for it to be [...] John Humphrey PA-C documented in this encounter [facility] 08-25-2023 History and physical note HISTORY AND [...] CAD, chest pain, CHF, DVT/PE, hypertension, recent [place], murmur/valvular heart disease and PVD. GI: Positive [...] or any previous visit (from the past [address]24 hour(s)). Instructions Given to Patient: Instructions located in the after visit summary. Patient given verbal and written preop instructions and voices comprehension and compliance. SIGNATURE: John Humphrey PA-C PATIENT NAME: Sheyla Lea DATE: August 25, 2023 TIME: 7:58 AM PAGER/CONTACT #: documented in this encounter [facility] 08-18-2023 Note HNO ID: [id number] Author: GRETEL STEVENS MD Service: ? Author [...] LH, estradiol - Consider pelvic US by SURVEILLANCE ANALYST - Weight loss recommendations: Advised about lifestyle [...] (H) ( Neck Ultrasound: 05/17/2023 Ultrasound Machine: Medical Referral Source Transducer: Linear 11 MHz Regions examined: Thyroid [...] * Physician Inter (more content not included)... [facility] 08-18-2023 History of Presen t illness [...] LH, estradiol - Consider pelvic US by SURVEILLANCE ANALYST - Weight loss recommendations: Advised about lifestyle [...] (H) ( Neck Ultrasound: 05/17/2023 Ultrasound Machine: Medical Referral Source Transducer: Linear 11 MHz Regions examined: Thyroid [...] 2 points Echogenicity: Hypoechoic, 2 points Shape: Tkmzl-wqac-tfch, 0 points Margin: Lobulated or irregular, 2 [...] QUANTITATIVE; Future This note was created using BitPoster dictation software. You may find errors that were missed during proofreading. They are purely unintentional and if there are any concerns regarding this dictation, please do not hesitate to contact the dictating provider for clarification. Discussed with Attending Staff, Dr. Cerda Addendum to follow. Yesi Pizano MD Clinical Fellow Endocrinology and Metabolism [place] Attending Note I evaluated the patient and personally participated in the mayer components. I agree with Dr. uRffin's findings and plan with the following revisions [...] Gretel Stevens MD documented in this encounter [facility] 08-02-2023 Miscellaneous Notes Spoke with patient her [...] to consider it. She will see her svp monetization which is a new svp monetization in August and then if still interested in pursuing thyroidectomy will reach out to me. In the meantime we can hold a surgical date. Latasha Bobo MD Pt calling for lab results. Please call documented in this encounter [facility] 05-20-2023 Evaluation note Encounter Date Diagnosis Assessment Notes May, Moderate major depression (ICD-10 - F32.1) May, Chronic GERD (ICD-10 - K21.9) [employer] Other 12-08-2023 NoteHNO ID: [id number] Author: Latasha Bobo MD Service: ? Author Type: Physician Type: Progress Notes Filed: 05/17/2023 1:09 AM Note Text: [facility] follow-up CC: thyroid nodules HPI: Sheyla [...] mobility normal Neck Ultrasound: 05/17/2023 Ultrasound Machine: Medical Referral Source Transducer: Linear 11 MHz Regions examined: Thyroid [...] Making Level: 3 - Low Latasha Bobo, [facility]11-17-2023 Evaluation note* Encounter Date Diagnosis Assessment Notes [...] left side of neck. will get US. [employer] Other 09-13-2023 NotePatient Education Materials Follows:Disease Viral [...] home: Managing pain and congestion ? Take ngql-vnv-sngylhb and prescription medicines only as told by [...] water are not available, use alcohol-based hand ballistics laboratory gunsmith. ? Cover your mouth when you cough. [...] against viruses. 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 Living on her [...] Weight gain (ICD-10 - R63.5) see above [employer] Other 08-23-2023 NoteEducation Materials Gastroenterology Constipation, Adult [...] in fat and sugar, such as: ? Frisian fries. ? Hamburgers. ? Cookies. ? Candy. ? Soda. ? Drink enough fluid to keep your pee (urine) pale yellow. General instructions ? Exercise regularly or as told by your doctor. Try to do 150 minutes of exercise each week. ? Go to the restroom when you feel like you need to poop. Do not hold it in. ? Take vepm-eal-demtiuu and prescription medicines only as told by [...] your pee (urine) pale yellow. ? Take lwgl-iks-wkbnaep and prescription medicines only as told by your doctor. These include any fiber supplements. This information is not intended to replace advice given to you by your health care provider. Make sure you discuss any questions you have with your health care provider. Document Revised: 03/20/2020 Document Reviewed: 03/20/2020 [employer] Medical Patient Education ? 2022 [employer]. Abdominal Pain, Adult Many things can cause belly (abdominal) pain. Most times, belly pain is not dangerous. Many cases of belly pain can be watched and treated at home. Sometimes, though, belly pain is serious. Your doctor will try to find the cause of your belly pain. Follow these instructions at home: Medicines ? Take ogvv-ohd-xfnqcdc and prescription medicines only as told by [...] belly pain for any changes. ? Take cupt-fuy-tuiotzn and prescription medicines only as told by [...] 09/11/2019 Document Reviewed: 09/11/19 (more content not included)...[facility] [id number] NotePatient Education Materials Follows: Antibiotic Medicine, Adult [...] Follow these instructions at home: ? Take eswf-wod-fbxfnze and prescription medicines as told by your health care provider. ? Return to your normal activities as told by your health care provider. Ask your health care provider what activities are safe for you. ? Keep all follow-up visits as told by your health care provider. This is important. Contact a health care provider if: ? (more content not included)...[facility] [id number] NotePatient Education Materials Follows: Corneal Abrasion A [...] condition may be caused by: ? A surveyor chain helper the eye. ? A gritty or irritating [...] in diseases and conditions of the eye (motor brakeman). This condition may be diagnosed based on your medical history, symptoms, and an eye exam. Before the eye exam, numbing drops may be put into your eye. You may also have dye put in your eye with a dropper or a small paper strip. The dye makes the abrasion easy to see when your motor brakeman examines your eye with a light. Your motor brakeman may look at your eye through an [...] you start to feel better. ? Take oeoy-syk-mqfrtcy and prescription medicines only as told by your health care provider. ? Ask your health care provider if the medicine prescribed to you: ? Requires you to avoid driving or using heavy machinery. ? Can cause constipation. You may need to take these actions to prevent or treat constipation: ? Drink enough fluid to keep your urine pale yellow. ? Take cnoc-ryn-kqdwacj or prescription medicines. ? Eat foods that [...] wearing an eye patch. Your ability to quality improvement engineer distances will beimpaired. ? Follow instructions from [...] You have vision loss (more content not included)...[facility] [id number] NoteEducation Materials Cardiovascular Hypertension, Adult High blood [...] without skin, beans, e (more content not included)...[facility] [id number] NotePatient Education Materials Follows: Otitis Media, Adult [...] Follow these instructions at home: ? Take zhas-cvn-wwtejrg and prescription medicines only as told by [...] provider. Document Revised: 08/11/2021 Document Reviewed: 08/11/2021 ElseNutzvieh[employer] Patient Education ? [address] [id number] Nurse Note* Carmela Pleitez Ma - 05/28/2022 8:31 AM EST Tobacco Use: Never Was smoking cessation packet given? N/A - Patient is a non-smoker or quit >1 year ago. Was a referral initiated?N/A Patient is a non-smoker [facility] History of Present illness Narrative* Latasha Bobo MD - 05/28/2022 8:24 AM EST [facility] Consult This consult was requested by [...] 2 points Echogenicity: Hypoechoic, 2 points Shape: Umzcv-frwj-hcnt, 0 points Margin: Lobulated or irregular, 2 [...] palpable lymphadenopathy Neck Ultrasound: 06/02/2022 Ultrasound Machine: Medical Referral Source Transducer: Linear 11 MHz Regions examined: Thyroid [...] to set up visit with a new svp monetization now that she is nearly an adult [...] Low Latasha Bobo MD [facility] Miscellaneous Notes* Telephone Encounter - Mana Aguilar APRN.CNP - 04/24/2022 11:27 AM EST Called mother to discuss follow up. Received voicemail with identification as Maan Lea. I left a voicemail stating that patient should follow up with adult ENT Dr. Latasha Bobo. Advised that if patient's mother has not heard from office to schedule by the middle of next week, she should call to set up the appointment. I left the scheduling line number for her to call if needed: [phone]. After discussion with Dr. Chaparro, the plan of care is for Sheyla to follow up with adult ENT first. She should be scheduled with Dr. Latasha Bobo. Consult to adult ENT placed with instructions to schedule with Dr. Latasha Bobo. Will send message to scheduling. No active mychart to send message to patient. documented in this encounter[facility] Miscellaneous Notes* Telephone Encounter - Mana Aguilar APRN.CNP - 04/21/2022 1:16 PM EST Called and spoke to mother of Sheyla about thyroid ultrasound results. Discussed that the nodules inthyroid have grown, which warrants further work up and evaluation to rule out any malignancy. I discussed with mother that Sheyla should follow up with Dr. [facility]arro in the [facility] for further evaluation. Discussed that there [...] schedule. Mana Aguilar APRN.CNP documented in this encounterUniversity [facility] Miscellaneous Notes* Telephone Encounter - Mana Aguilar [...] care. Mana Aguilar APRN.CNP documented in this encounterUniversity [facility]11-30-2022 Instructions* Patient Instructions* Mana Aguilar APRN.CNP - 04/15/2022 2:17 PM EST Please get labs Please schedule for ultrasound Follow up with nutrition for dietary guidance documented in this encounterUniversity [facility]11-[facility]-2022 History of Present illness Narrative* Mana Aguilar APRN.CNP - 04/15/2022 2:01 PM EST Images from the original note were not included. [facility] Division of Pediatrics CLINIC NOTE Pediatric and [...] note: Initial presentation was when she saw deputy treasurer Dr Pleitez for pelvic pain who noticed thyromegaly so ordered US and TFTs. US showed small nodule ([id number]) with benign features and gland was non [...] 0.8 - 2.1 ng/dL 1.1 [facility]: FSH 7, LH 3.3 [...] Height: 32 %ile (Z= -0.47) based on [facility] (Girls, 2-20 Years) Dhqrxpg-vhf-onu data based on Stature recorded on 04/15/2022. Weight: 98 %ile (Z= 2.01) based on [facility] (Girls, 2-20 Years) ihnnod-jdw-tdl data using vitals from 04/15/2022. BMI: 90% [...] for 30 minutes. Denies poly symptoms. Encouraged editorial writer visit. I spent a total of 40 minutes on the date of the service which included preparing to see the patient, xbzf-mv-zryk patient care, completing clinical documentation, obtaining and/or reviewing separately obtained history, performing a medically appropriate examination, counseling and educating the pat ient/family/caregiver, and ordering medications, tests, or procedures. Follow up in 6 months. Mana Aguilar APRN-JOSE LUIS cc: [place] [address] [address] [facility] [address] Parent of Sheyla Lea [address] [place] [id number] documented in this encounterUniversity Hospitals [facility]10-[facility]-2022 NotePatient Education Materials Follows: Foot Pain Many [...] clean and dry. General instructions ? Take uwla-lcg-cwtyznv and prescription medicines only as told by [...] provider. Document Revised: 08/06/2021 Document Reviewed: 08/06/2021 [employer] Medical Patient Education ? 2021 [employer] Ankle Pain The ankle joint holds [...] by your health care provider. ? Take mura-mqg-ctpmxbl and prescription medicines only as told by your health care provider. ? Keep all follow-up visits as told by your health care provider. This is important. (more content not included)...[facility] [id number] History general Narrative - Reported* Type Description Date Medical History Hx of ear infections Medical History ingrown toenail Surgical History tubes in bilateral ears 2011 Surgical History tonsillectomy and adenoidectomy 06/2017 Surgical History tubes in bilateral ears 06/2017 [facility] [employer] Other Evaluation note* Diagnosis Abnormal thyroid blood test- Primary Nonspecific abnormal results of thyroid function study History of thyroid nodule Personal history of other endocrine, metabolic, and immunity disorders Obesity, pediatric, BMI greater than or equal 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 documented in this encounter [facility] note* Diagnosis Abnormal thyroid blood test- Primary Nonspecific abnormal results of thyroid function study History of thyroid nodule Personal history of other endocrine, metabolic, and immunity disorders documented in this encounter [facility] note* Diagnosis Thyroid nodule- Primary Nontoxic uninodular goiter Abnormal thyroid blood test Nonspecific abnormal results of thyroid function study History of thyroid nodule Personal history of other endocrine, metabolic, and immunity disorders documented in this encounter [facility] noteNo InformationNortButler Memorial Hospital [employer] Other Evaluation noteNo assessment information [facility] Work Phone: Evaluation note* Diagnosis Abnormal thyroid blood test Nonspecific abnormal results of thyroid function study History of thyroid nodule Personal history of other endocrine, metabolic, and immunity disorders documented in this encounter [facility] note* Diagnosis Thyroiditis- Primary Thyroiditis, unspecified documented in this encounter [facility] note* Diagnosis Pre-op evaluation- Primary Preoperative examination, unspecified Gastroesophageal reflux disease, unspecified whether esophagitis present Obesity, pediatric, BMI greater than or equal 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 Thyroiditis Thyroiditis, unspecified documented in this encounter [facility] note* Diagnosis PCOS (polycystic ovarian syndrome)- Primary Polycystic ovaries Thyroid nodule Nontoxic uninodular goiter Thyroiditis Thyroiditis, unspecified documented in this encounter [facility] note* Diagnosis Hypothyroidism (acquired)- Primary Unspecified hypothyroidism documented in this encounter [facility] note* Diagnosis Mood disorder (CMS/HCC) Unspecified episodic mood disorder Anxious mood Anxiety state, unspecified Hormone imbalance Irregular periods Weight gain Other symptoms concerning nutrition, metabolism, and development [facility]* Diagnosis Encounter for weight management documented in this encounter [facility]* Diagnosis Anxiety, generalized ([facility])- Primary Postoperative visit S/P laparoscopy Other postprocedural status Encounter for repeat prescription of oral contraceptives documented in this encounter [facility]* Diagnosis Weight gain- Primary Other symptoms concerning nutrition, metabolism, and development documented in this encounter [facility]* Diagnosis Flu-like symptoms- Primary Acute non-recurrent frontal sinusitis Yeast vaginitis documented in this [facility]* Diagnosis Postoperative hypothyroidism- Primary Postsurgical hypothyroidism documented in this encounter [facility]* Diagnosis Wellness examination- Primary Tinea pedis of right foot Postoperative hypothyroidism Postsurgical hypothyroidism Generalized anxiety disorder High risk heterosexual behavior documented in this encounter [facility]* Diagnosis Tinea pedis of both feet- Primary documented in this encounter [facility]* Diagnosis Encounter for medical examination to establish care- Primary Class 2 obesity due to excess calories without serious comorbidity with body mass index (BMI) of 38.0 to 38.9 in adult Generalized anxiety disorder Moderate major depression ([facility]) Major depressive disorder, single episode, moderate Gastroesophageal reflux disease, unspecified whether esophagitis present Cystic acne Other acne Thyroid nodule Nontoxic uninodular goiter documented in this encounter [facility]* Diagnosis Postoperative hypothyroidism- Primary Postsurgical hypothyroidism documented in this encounter [facility]* Diagnosis Gastroesophageal reflux disease, unspecified whether esophagitis present- Primary Postoperative hypothyroidism Postsurgical hypothyroidism Acute hemorrhoid Delayed gastric emptying Dyspepsia and other specified disorders of function of stomach Influenza vaccination administered at current visit documented in this encounter [facility]* Diagnosis Gastroesophageal reflux disease, unspecified whether esophagitis present- Primary Esophageal dysphagia Dysphagia, pharyngoesophageal phase Allergic contact dermatitis, unspecified trigger Chronic idiopathic constipation Unspecified constipation documented in this encounter [facility]* Diagnosis Esophageal dysphagia- Primary Dysphagia, pharyngoesophageal phase Gastroesophageal reflux disease without esophagitis Esophageal reflux documented in this encounter [facility]* Diagnosis Postoperative hypothyroidism- Primary Postsurgical hypothyroidism documented in this encounter [facility]* Diagnosis Postoperative hypothyroidism- Primary Postsurgical hypothyroidism Acute nonintractable headache, unspecified headache type Gastroesophageal reflux disease, unspecified whether esophagitis present Immunization due [facility]* Diagnosis Nausea- Primary Nausea alone Cramping affecting , antepartum ([facility]) Missed menses [facility]* Diagnosis Missed menses , unspecified gestational age ([facility]) Encounter for supervision of normal first in first trimester ([facility]) documented [facility]* Diagnosis First trimester ([facility]) state, incidental 9 weeks gestation of ([facility]) Encounter to discuss test results Other specified counseling headache, antepartum ([facility]) Nausea Nausea alone documented [facility]* Diagnosis Thyroid disease affecting - Primary Postoperative hypothyroidism Postsurgical hypothyroidism [facility]* Diagnosis Thyroid disease affecting - Primary documented in this encounter [facility]* Diagnosis 11 weeks gestation of ([facility]) First trimester ([facility]) state, incidental Thyroid disease Unspecified disorder of thyroid H/O thyroidectomy Exposure to STD Vaginal discharge Leukorrhea, not specified as infective Constipation, unspecified constipation type documented [facility]* Diagnosis 15 weeks gestation of ([facility]) Second trimester ([facility]) state, incidental Screening, , for anatomic survey ([facility]) Encounter for anatomic survey documented in this encounter [facility] HealthcareInstructionsNot on filedocumented in this encounterProMonroe [facility] Hospital Health SystemInstructionsNot on filedocumented in this encounterProSt. Charles HospitalLamsa SystemInstructionsNot on filedocumented in this encounterProSt. Charles Hospitalca Health System InstructionsNot on filedocumented in this encounterProMedica Health System InstructionsNot on filedocumented in this encounterProMedica [facility] System InstructionsNot on filedocumented in this encounterRutland [facility] CenterMed[facility] Instructions* Attachments The following attachments cannot be sent through Care Everywhere. * Acid Reflux and GERD in Adults Discharge Instructions (Tajik) documented in this encounterProMonroe [facility] Hospital Health SystemInstructionsNot on file documented in this encounterProSt. Charles HospitalTinypay.me Health SystemInstructionsNot on file documented in this encounterProMonroe County Hospital Kollabora SystemInstructionsNot on file documented in this encounterProMonroe County Hospital Health SystemInstructionsNot on file documented in this encounterProOhiohealth [facility] SystemInstructions* Attachments The following attachments cannot be sent through Care Everywhere. * Acid Reflux and GERD in Adults Discharge Instructions (Tajik) documented in this encounterProMonroe County Hospital Health SystemInstructionsNot on file documented in this encounterProMonroe County Hospital Health SystemInstructionsNot on file documented in this encounterProMonroe County Hospital Health SystemInstructionsNot on file documented in this encounterProOhiohealth [facility] SystemInstructionsNot on file documented in this encounterProMonroe County Hospital Health SystemInstructionsNot on file documented in this encounterProMonroe County Hospital Health SystemInstructionsNot on file documented in this encounterProOhiohealth [facility] Hospital SystemInstructionsNot on file documented in this encounterProMedica [facility] SystemReason for referral (narrative)* Diagnostic Procedure Only (Routine) - Authorized Specialty Diagnoses / Procedures Referred By Rodger matute Referred To Contact US IMAGING Diagnoses Abnormal thyroid blood test History of thyroid nodule Procedures US THYROID/PARATHYROID US SOFT TISSUE HEAD & NECK REAL TIME IMGE DOCM Mana Aguilar APRN.CNP [address] [place] [id number] Us Imaging Referral ID Status Reason Start Date Expiration Date Visits Requested Visits Authorized [id number] Authorized Auto-Generat ed Referral 2 05/15/2023 1 1 * Consult, Test, Treat (Routine) - Authorized Specialty Diagnoses / Procedures Referred By Rodger matute Referred To Contact Pediatric Nutrition Diagnoses Obesity, pediatric, BMI greater than or equal 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 Procedures CONSULT TO PED NUTRITION OFFICE/OUTPATIENT [facility] 60-74 MINUTES Mana Aguilar APRN.CNP [address] [place] [address] Referral ID Status Reason Start Date Expiration Date Visits Requested Visits Authorized [id number] Authorized PCP Requested Referral 2 04/15/2023 1 1 [facility] Reason counseling - john if able, if not [facility] anxiety/depression/stress Diagnosis 1 Mild major depressio n (F32.0) Diagnosis 2 Generalized anxiety disorder (F41.1) Referral Organization [facility] Family Edyta M[place] Referring Provider First Name Aime Referring Provider Last Name [place] Referring Provider Specialty Family [facility] Referred Organization Unknown Facility Referred Provider Specialty Other Medica l Care Referral Priority Routine [facility] [employer] Other Reason for referral (narrative)* Diagnostic Procedure Only (Routine) - Closed Specialty Diagnoses / Procedures Referred By Rodger matute Referred To Contact US IMAGING Diagnoses Abnormal thyroid blood test History of thyroid nodule Procedures US THYROID/PARATHYROID US SOFT TISSUE HEAD & NECK REAL TIME IMGE DOCM Mana Aguilar APRN.JOSE LUIS [address] [place] [address] Us Imaging [place] [address] Referral ID Status Reason Start Date Expiration Date V isits Requested Visits Authorized [id number] Closed Auto-Generate d Referral 04/15/2022 05/15/2023 1 1 [facility] for referral (narrative)* Outpatient Procedure (Routine) - Pending Review Specialty Diagnoses / Procedures Referred By Rodger matute Referred To [facility] Diagnoses Thyroiditis Procedures ECG COMPLETE ECG ROUTINE ECG W/LEAST 12 LDS W/I&R Latasha Bobo MD [address] [place] [address] [facility] [place] [address] [place] [address] Referral ID Status Reason Start Date Expiration Date Visits Requested Visits Authorized [id number] Pending Review Auto-Generat ed Referral 08/02/2023 08/01/2024 1 1 [facility] for referral (narrative)* Consultation (Routine) - Pending Review Specialty Diagnoses / Procedures Referred By Rodger matute Referred To Contact Gastroenterology Diagnoses Esophageal dysphagia Gastroesophageal reflux disease without esophagitis Anita Elmore, GROCERY STOCK CLERK-PATIENT INTAKE REPRESENTATIVE [address] [place] [address] Meliton Dow MD [address] [address] Referral ID Status Reason Start Date Expiration Date Visits Requested Visits Authorized [id number] Pending Review Specialty Services Required 02/10/2024 02/09/2025 1 1 [facility] for visit Narrative* Diagnostic Procedure Only (Routine) - Closed Specialty Diagnoses / Procedures Referred By Rodger matute Referred To Contact US IMAGING Diagnoses Abnormal thyroid blood test History of thyroid nodule Procedures US THYROID/PARATHYROID US SOFT TISSUE HEAD & NECK REAL TIME IMGE DOCM Mana Aguilar APRN.CNP [address] [place] [address] Us Imaging [place] [address] Referral ID Status Reason Start Date Expiration Date V isits Requested Visits Authorized [id number] Closed Auto-Generate d Referral 04/15/2022 05/15/2023 1 1 [facility] Summary Purpose Family History No Family History [...] thyroid nodule Procedures CONSULT TO ENT OFFICE/OUTPATIENT [facility] 60-74 MINUTES Mana Aguilar APRN.PATIENT INTAKE REPRESENTATIVE [address] [place] [address] Referral ID Status Reason Start Date Expiration Date Visits Requested Visits Authorized [id number] Authorized PCP Requested Referral 04/24/2022 04/24/2023 1 [...] or prosecute any alcohol or drug abuse patient.[facility] CenterIn the event this information is protected by the Federal Confidentiality of Alcohol and Drug Abuse Patient Records regulations: The Federal rules restrict any use of the information to criminally investigate or prosecute any alcohol or drug abuse patient.[facility] CenterIn the event this information is protected by the Federal Confidentiality of Alcohol and Drug Abuse Patient Records regulations: The Federal rules restrict any use of the information to criminally investigate or prosecute any alcohol or drug abuse patient.[facility] CenterIn the event this information is protected by the Federal Confidentiality of Alcohol and Drug Abuse Patient Records regulations: The Federal rules restrict any use of the information to criminally investigate or prosecute any alcohol or drug abuse patient.[facility] CenterIn the event this information is protected by the Federal Confidentiality of Alcohol and Drug Abuse Patient Records regulations: The Federal rules restrict any use of the information to criminally investigate or prosecute any alcohol or drug abuse patient.[facility] CenterIn the event this information is protected by the Federal Confidentiality of Alcohol and Drug Abuse Patient Records regulations: The Federal rules restrict any use of the information to criminally investigate or prosecute any alcohol or drug abuse patient.[facility] CenterIn the event this information is protected by the Federal Confidentiality of Alcohol and Drug Abuse Patient Records regulations: The Federal rules restrict any use of the information to criminally investigate or prosecute any alcohol or drug abuse patient.[facility] CenterIn the event this information is protected by the Federal Confidentiality of Alcohol and Drug Abuse Patient Records regulations: The Federal rules restrict any use of the information to criminally investigate or prosecute any alcohol or drug abuse patient.[facility] CenterIn the event this information is protected by the Federal Confidentiality of Alcohol and Drug Abuse Patient Records regulations: The Federal rules restrict any use of the information to criminally investigate or prosecute any alcohol or drug abuse patient.[facility] CenterIn the event this information is protected by the Federal Confidentiality of Alcohol and Drug Abuse Patient Records regulations: The Federal rules restrict any use of the information to criminally investigate or prosecute any alcohol or drug abuse patient.[facility] CenterIn the event this information is protected by the Federal Confidentiality of Alcohol and Drug Abuse Patient Records regulations: The Federal rules restrict any use of the information to criminally investigate or prosecute any alcohol or drug abuse patient.[facility] CenterIn the event this information is protected by the Federal Confidentiality of Alcohol and Drug Abuse Patient Records regulations: The Federal rules restrict any use of the information to criminally investigate or prosecute any alcohol or drug abuse patient.[facility] CenterIn the event this information is protected by the Federal Confidentiality of Alcohol and Drug Abuse Patient Records regulations: The Federal rules restrict any use of the information to criminally investigate or prosecute any alcohol or drug abuse patient.[facility] Reason for Visit (unrecogniz ed section and [...] NEW HIGH MDM 60-74 MINUTES Mana Aguilar APRN.PATIENT INTAKE REPRESENTATIVE [address] [place] [address] [facility] [address] [place] [address] Referral ID Status Reason Start Date Expiration Date V isits Requested Visits Authorized [id number] Closed PCP Requested Referral 04/24/2022 04/24/2023 1 [...] Comments Amenorrhea Reason Comments Routine Visit Results Reason Comments Hx Thyroidectomy Reason Comments Routine Visit Care Teams (unrecognized sec tion and content) Crm Marketing Analyst Relationship Specialty Start Date End Date Jas Salgado [address] [place] [address] [place] [address] PCP - General Family Medicine 04/20/13 Crm Marketing Analyst Relationship Specialty Start Date End Date Jas Salgado [address] [address] [place] [address] PCP - General Family Medicine 04/20/13 Crm Marketing Analyst Relationship Specialty Start Date End Date Jas Salgado [address] [address] [place] [address] PCP - General Family Medicine 04/20/13 Crm Marketing Analyst Relationship Specialty Start Date End Date Jas Salgado [address] [place] [address] PCP - General Family Medicine 04/20/13 Crm Marketing Analyst Relationship Specialty Start Date End Date Jas Salgado [address] [address] [place] [address] PCP - General Family Medicine 04/20/13 Crm Marketing Analyst Relationship Specialty Start Date End Date Jas Salgado [address] [address] [place] [address] PCP - General Family Medicine 04/20/13 Team Status: Active Member Role Status Dates Kevin Stokes , DO Primary Care Provider Active Team Status: Inactive Member Role Status Dates Kevin Stokes , DO Primary Care Provider Active Braxton Toussaint , DO [facility] Attending Provider Active Crm Marketing Analyst Relationship Specialty Start Date End Date Jas Salgado [address] [place] [address] PCP - General Family Medicine 04/20/13 Crm Marketing Analyst Relationship Specialty Start Date End Date Aime Goff DO [address] [facility] [place] [address] PCP - General Family Medicine 07/09/23 Crm Marketing Analyst Relationship Specialty Start Date End Date Anita Elmore NP [address] [place] [address] PCP - General Family Medicine 08/17/23 Crm Marketing Analyst Relationship Specialty Start Date End Date Anita Elmore NP [address] [place] [address] PCP - General Family Medicine 08/17/23 Crm Marketing Analyst Relationship Specialty Start Date End Date Anita Elmore NP [address] [place] [address] PCP - General Family Medicine 08/17/23 Crm Marketing Analyst Relationship Specialty Start Date End Date Anita Elmore NP [address] [place] [address] PCP - General Family Medicine 08/17/23 Crm Marketing Analyst Relationship Specialty Start Date End Date Anita Elmore NP [address] [place] [address] PCP - General Family Medicine 08/17/23 Crm Marketing Analyst Relationship Specialty Start Date End Date Regino Santoro MD [address] [facility] [place] [address] PCP - General Family Medicine 04/07/24 Crm Marketing Analyst Relationship Specialty Start Date End Date Anita Elmore GROCERY STOCK CLERKPATIENT INTAKE REPRESENTATIVE [address] [place] [address] PCP - General Internal Medicine 08/25/23 Crm Marketing Analyst Relationship Specialty Start Date End Date Anita Elmore GROCERY STOCK CLERKPATIENT INTAKE REPRESENTATIVE [address] [place] [address] PCP - General Internal Medicine 08/25/23 Crm Marketing Analyst Relationship Specialty Start Date End Date Anita Elmore [facility] [address] [place] [address] PCP - General Internal Medicine 08/25/23 Crm Marketing Analyst Relationship Specialty Start Date End Date Anita Elmore GROCERY STOCK CLERK-[facility] [address] [place] [address] PCP - General Internal Medicine 08/25/23 Crm Marketing Analyst Relationship Specialty Start Date End Date Anita Elmore GROCERY STOCK CLERKPATIENT INTAKE REPRESENTATIVE [address] [place] [address] PCP - General Internal Medicine 08/25/23 Crm Marketing Analyst Relationship Specialty Start Date End Date Anita Elmore GROCERY STOCK CLERKPATIENT INTAKE REPRESENTATIVE [address] [place] [address] PCP - General Internal Medicine 08/25/23 Crm Marketing Analyst Relationship Specialty Start Date End Date Anita Elmore GROCERY STOCK CLERKPATIENT INTAKE REPRESENTATIVE [address] [place] [address] PCP - General Internal Medicine 08/25/23 Crm Marketing Analyst Relationship Specialty Start Date End Date Anita Elmore GROCERY STOCK CLERK-PATIENT INTAKE REPRESENTATIVE [address] [place] [address] PCP - General Internal Medicine 08/25/23 Crm Marketing Analyst Relationship Specialty Start Date End Date Anita Elmore GROCERY STOCK CLERKPATIENT INTAKE REPRESENTATIVE [address] [place] [address] PCP - General Internal Medicine 08/25/23 Crm Marketing Analyst Relationship Specialty Start Date End Date Anita Elmore GROCERY STOCK CLERKPATIENT INTAKE REPRESENTATIVE [address] [place] [address] PCP - General Internal Medicine 08/25/23 Crm Marketing Analyst Relationship Specialty Start Date End Date Anita Elmore GROCERY STOCK CLERKPATIENT INTAKE REPRESENTATIVE [address] [place] [address] PCP - General Internal Medicine 08/25/23 Crm Marketing Analyst Relationship Specialty Start Date End Date Anita Elmore APRNPATIENT INTAKE REPRESENTATIVE [address] [place] [address] PCP - General Internal Medicine 08/25/23 Crm Marketing Analyst Relationship Specialty Start Date End Date Anita Elmore GROCERY STOCK CLERK-PATIENT INTAKE REPRESENTATIVE [address] [place] [address] PCP - General Internal Medicine 08/25/23 Crm Marketing Analyst Relationship Specialty Start Date End Date Anita Elmore GROCERY STOCK CLERK-PATIENT INTAKE REPRESENTATIVE [address] [place] [address] PCP - General Internal Medicine 08/25/23 Crm Marketing Analyst Relationship Specialty Start Date End Date Anita Elmore, GROCERY STOCK CLERK-PATIENT INTAKE REPRESENTATIVE [address] [place] [address] PCP - General Internal Medicine 08/25/23 Crm Marketing Analyst Relationship Specialty Start Date End Date Anita Elmore, GROCERY STOCK CLERK-PATIENT INTAKE REPRESENTATIVE [address] [place] [address] PCP - General Internal Medicine 08/25/23 Crm Marketing Analyst Relationship Specialty Start Date End Date Anita Elmore, GROCERY STOCK CLERK-PATIENT INTAKE REPRESENTATIVE [address] [place] [address] PCP - General Internal Medicine 08/25/23 Crm Marketing Analyst Relationship Specialty Start Date End Date Regino Santoro MD PCP - General Family Medicine 04/07/24 Crm Marketing Analyst Relationship Specialty Start Date End Date Regino Santoro MD [address] [place] [address] PCP - General Family Medicine 04/07/24 Crm Marketing Analyst Relationship Specialty Start Date End Date Regino Santoro MD [address] [place] [address] PCP - General Family Medicine 04/07/24 Crm Marketing Analyst Relationship Specialty Start Date End Date Regino Santoro MD [address] [place] [address] PCP - General Family Medicine 04/07/24 Crm Marketing Analyst Relationship Specialty Start Date End Date Regino Santoro MD [address] [place] [address] PCP - General Family Medicine 04/07/24 Crm Marketing Analyst Relationship Specialty Start Date End Date Regino Santoro MD [address] [facility] [place] [address] PCP - General Family Medicine 04/07/24 Crm Marketing Analyst Relationship Specialty Start Date End Date Regino Santoro MD [address] [facility] [place] [address] PCP - General Family Medicine 10/12/24 Crm Marketing Analyst Relationship Specialty Start Date End Date Regino Santoro MD [address] [facility] [place] [address] PCP - General Family Medicine 10/12/24 Crm Marketing Analyst Relationship Specialty Start Date End Date Regino Santoro MD [address] [facility] [place] [address] PCP - General Family Medicine 10/12/24 Crm Marketing Analyst Relationship Specialty Start Date End Date Regino Santoro MD [address] [facility] [place] [address] PCP - General Family Medicine 04/07/24 Crm Marketing Analyst Relationship Specialty Start Date End Date Regino Santoro MD [address] [facility] [place] [address] PCP - General Family Medicine 04/07/24 INFORMATION SOURCE (unrecogn ized section and content) DATE CREATED AUTHOR 04/19/2022 [facility] DATE CREATED AUTHOR AUTHOR'S ORGANIZ ATION 02/07/2023 [facility] DATE CREATED AUTHOR AUTHOR'S ORGANIZ ATION 10/15/2023 [facility] DATE CREATED AUTHOR AUTHOR'S ORGANIZ ATION 04/02/2024 [facility] DATE CREATED AUTHOR AUTHOR'S ORGANIZ ATION 10/15/2024 [facility] DATE CREATED AUTHOR AUTHOR'S ORGANIZ ATION 12/21/2024 [facility] DATE CREATED AUTHOR AUTHOR'S ORGANIZ ATION 12/31/2024 [facility] DATE CREATED AUTHOR AUTHOR'S ORGANIZ ATION 02/02/2025 [facility] EPIC Goals (unrecognized section [...] BE BASED ON THE PRIMARY CLINICAL RECORDS. [employer] provides no warranty or guarantee of the accuracy or completeness of information in this document.
--- OUTSIDE RECORDS SUMMARY | 2025-02-28 15:22 | XMS_ITS | Encounter Summary ---
Author Organization [facility] Address [address] [place] [address] Care Team Providers Care Broomcorn Sorter Name Role Phone ShireenShayla morgantrish Haddad DO Primary Care Provider [phone]- [phone] Anita Sherwood NP Primary Care Provider [phone] Source Comments In the event this information is protected by the Federal Confidentiality of Alcohol and Drug AbusePatient Records regulations: The Federal rules restrict any use of the information to criminally investigate or prosecute any alcohol or drug abuse patient.[facility] Encounter Details Date Type Department Care Team (Late st Contact Info) Description 08/12/2023 Patient [facility] HB[facility] [place] [address] Martina Bettencourt RPh At your next appointment, choose [facility] Social History Tobacco Use Types [...] risk 9 01/07/2023 Data from: https://www.neighborhoodatlas.medicine.[facility].edu/. Last address used for calculation [address] [...] on filedocumented in this encounter Care Teams Broomcorn Sorter Relationship Specialty Start Date End Date Geeta Goff DO [address] [place] [address] PCP - General Family Medicine 07/09/23 08/16/23 Anita Sherwood NP [address] [place] [address] PCP - General Family Medicine 08/17/23 documented as of this encounter
--- OUTSIDE RECORDS SUMMARY | 2025-02-28 15:22 | XMS_ITS | Encounter Summary ---
Author Organization [facility] Address [address] [place] [address] Care Team Providers Care Claims Auditor Name Role Phone Hector Dai MD Primary Care Provider [phone] Encounter Details Date Type Department Care Team (Late st Contact Info) Description 11/24/2023 Abstract [facility] [address] [place] [id number] Gerardo Meredith DO [address] [place], [place] [address] Social History Tobacco Use Types Packs/Day Years [...] Info) Description 03/28/2025 10:50 AM EST Routine [facility]A [address] [place] [id number] Gerardo Meredith DO [address] [place], [place] [id number] documented as of this encounter Visit Diagnoses Not on filedocumented in this encounter Care Teams Claims Auditor Relationship Specialty Start Date End Date Hector Dai MD [address] [place] [address] PCP - General Family Medicine 04/07/24 documented as of this encounter
--- OUTSIDE RECORDS SUMMARY | 2025-02-28 15:22 | XMS_ITS | Encounter Summary ---
Author Organization [facility] Address [address] [place] [address] Care Team Providers Care Venereal Disease Control Head Name Role Phone Hector Dai MD Primary Care Provider [phone] Encounter Details Date Type Department Care Team (Late st Contact Info) Description 11/01/2023 Clinisync Result Encounter [facility] External Department Unsolicited Adolfo Meredith DO [address] [place] [address] Social History Tobacco Use Types Packs/Day Years [...] 03/28/2025 10:50 AM EST Routine [facility] [place] [facility] [address] [employer] [place] [phone] Adolfo Meredith DO [address] [place] [address] documented as of this encounter Procedures Procedure Name Priority Date/Time Associated Diagnosis Comments US PELVIS W/ TRANSVAGINAL 11/01/2023 6:49 AM EDT documented in this encounter Results * US PELVIS W/ TRANSVAGINAL (11/01/2023 6:49 AM EDT) Anatomical Region Laterality Modality Other 11/01/2023 6:49 AM EDT Narrative 11/01/2023 6:[place] [address] Ultrasound Report Signed Patient: SHEYLA LEA MR#: [id number] : 2005 Acct:[id number] Age/Sex: 18 / F ADM Date: 10/29/23 Loc: US Attending Dr: Adolfo Meredith D.O. Ordering Physician: Adolfo Meredith D.O. Date of Service: 10/29/23 Procedure(s): US pelvis w/ transvaginal Accession Number(s): [id number] cc: Adolfo Meredith D.O.; MAXWLEL ELMORE [place] [id number] Patient Name: SHEYLA LEA MRN: [id number] date: 2005 Sex: F Assigned Patient Location: Current Patient Location: Accession/Order Number: [id number] Exam Date: 10/29/2023 09:03 Report Date: 11/01/2023 [...] Posadas M.D. Signed By: 11/01/2352 DD/ TD/TT: Straight Slicing Machine Operator: Procedure Note Radiology, Radiologist, MD - 11/01/2023 [place] [address] Ultrasound Report Signed Patient: SHEYLA LEA IMMR#: [id number] : 2005Acct:[id number] Age/Sex: 18 / FADM Date: 10/29/23 Loc: US Attending Dr: Adolfo Meredith D.O. Ordering Physician: Adolfo Meredith D.O. Date of Service: 10/29/23 Procedure(s): US pelvis w/ transvaginal Accession Number(s): [id number] cc: Adolfo Meredith D.O.; MAXWELL ELMORE [address] [address] Patient Name: SHEYLA LEA MRN: [id number] date: 2005 Sex: F Assigned Patient Location: US Current Patient Location: Accession/Order Number: [id number] Exam Date: 10/29/2023 09:03 Report Date: 11/01/2023 [...] M.D. Signed By:11/01/23 0652 DD/ 0649 TD/TT: Straight Slicing Machine Operator: us Adolfo Viri DO [facility] Final Result documented in this encounter Visit Diagnoses Not on filedocumented in this encounter Care Teams Venereal Disease Control Head Relationship Specialty Start Date End Date Hector Dai MD [address] [place] [address] PCP - General Family Medicine 04/07/24 documented as of this encounter
--- OUTSIDE RECORDS SUMMARY | 2025-02-28 15:22 | XMS_ITS | Encounter Summary ---
Author Organization [facility] Address [address] [place] [address] Care Team Providers Care Bag Machine Adjuster Name Role Phone Hector Dai MD Primary Care Provider [phone] Encounter Details Date Type Department Care Team (Late st Contact Info) Description 12/31/2023 Clinisync Result Encounter [facility] External Department Unsolicited Adolfo Meredith DO [address] [place] [address] Social History Tobacco Use Types Packs/Day Years [...] 03/28/2025 10:50 AM EST Routine [facility] [place] [address] [place] [id number] Adolfo Meredith DO [address] [place] [address] documented as of this encounter Procedures Procedure Name Priority Date/Time Associated Diagnosis Comments ECG 12-LEAD 12/31/2023 10:35 AM EDT documented in this encounter Results * ECG 12-LEAD (12/31/2023 10:35 AM EDT) Anatomical Region Laterality Modality Other 12/31/2023 10:3 5 AM EDT Narrative 12/31/2023 6:35 [place] [address] Electrocardiograph Report Signed Patient: SACHA LEA IM MR#: [id number] : 2005 Acct:[id number] Age/Sex: 18 / F ADM Date: 12/31/23 Loc: PST Attending Dr: Adolfo Meredith D.O. Ordering Physician: Adolfo Meredith D.O. Date of Service: 12/31/23 Procedure(s): ECG 12 lead Accession Number(s): [id number] cc: [facility] Test Date: 2023-12-31 Pat Name: SACHA LEA Department: Room: - Gender: Female Painter And Grader [place]: : 2005 Requested By: ADOLFO MEREDITH Order Number: [id number] Reading MD: JUSTEN JONES Measurements Intervals [place] Rate: 78 P: 21 NH: 135 QRS: 66 QRSD: 83 T: 45 QT: 333 QTc: 380 Interpretive Statements SINUS RHYTHM No previous ECG available for comparison Electronically Signed On 12-31-2023 18:35:33 EDT by JUSTEN JONES Dictated By: Justen Jones D.O. Signed By: 12/31/23 1835 DD/ 1035 TD/TT: Hand Mold Maker: Procedure Note Radiology, Radiologist, MD - 12/31/2023 [facility] [place] [id number] Electrocardiograph Report Signed Patient: SACHA LEA IMMR#: [id number] : 2005Acct:[id number] Age/Sex: 18 / FADM Date: 12/31/23 Loc: PST Attending Dr: Adolfo Meredith D.O. Ordering Physician: Adolfo Meredith D.O. 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 Signed By:12/31/23 1835 DD/ 1035 TD/TT: Hand Mold Maker: us Adolfo Meredith DO [facility] Final Result documented in this encounter Visit Diagnoses Not on filedocumented in this encounter Care Teams Bag Machine Adjuster Relationship Specialty Start Date End Date Hector Dai MD [address] [place] [address] PCP - General Family Medicine 04/07/24 documented as of this encounter
--- OUTSIDE RECORDS SUMMARY | 2025-02-28 15:22 | XMS_ITS | Encounter Summary ---
Author Organization [facility] Address [address] [place] [address] Care Team Providers Care Machinery Dismantler Name Role Phone Hector Dai MD Primary Care Provider [phone] Encounter Details Date Type Department Care Team (Late st Contact Info) Description 12/18/2024 Abstract [facility] [address] [place] [address] Gerardo Meredith DO [address] [place], [place] [address] Social History Tobacco Use Types Packs/Day Years [...] Info) Description 03/28/2025 10:50 AM EST Routine [facility] [address] [place] [address] Gerardo Meredith DO [address] [place] [address] documented as of this encounter Goals Goal Patient Goal Type Associated Problems Recent Progress Patient-Stated? Author Reminders Care Plan OB Reminders No Open Scheduling, Background documented as of this encounter Visit Diagnoses Not on filedocumented in this encounter Additional Health Concerns Active Problems Noted Date Diagnosed Date OB Reminders 12/11/2024 documented as of this encounter Care Teams Machinery Dismantler Relationship Specialty Start Date End Date Hector Dai MD [address] [place] [address] PCP - General Family Medicine 04/07/24 documented as of this encounter
--- OUTSIDE RECORDS SUMMARY | 2025-02-28 15:22 | XMS_ITS | Encounter Summary ---
Author Organization [facility] Address [address] [place] [address] Care Team Providers Care Associate Merchandiser Name Role Phone Hector Dai MD Primary Care Provider [phone] Encounter Details Date Type Department Care Team (Late st Contact Info) Description 12/26/2024 Abstract [facility] [address] [place] [address] Gerardo Meredith DO [address] [place], [place] [address] Social History Tobacco Use Types Packs/Day Years [...] EST Routine [facility] [address] [place] [address] Gerardo Meredith DO [address] [place] [address] documented as of this encounter Goals Goal Patient Goal Type Associated Problems Recent Progress Patient-Stated? Author Reminders Care Plan OB Reminders No Open Scheduling, Background documented as of this encounter Visit Diagnoses Not on filedocumented in this encounter Additional Health Concerns Active Problems Noted Date Diagnosed Date OB Reminders 12/11/2024 documented as of this encounter Care Teams Associate Merchandiser Relationship Specialty Start Date End Date Hector Dai MD [address] [place] [address] PCP - General Family Medicine 04/07/24 documented as of this encounter
--- OUTSIDE RECORDS SUMMARY | 2025-02-28 15:22 | XMS_ITS | Encounter Summary ---
Author Organization [facility] Address [address] [place] [address] Care Team Providers Care Junction Maker Name Role Phone Hector Dai MD Primary Care Provider [phone] Encounter Details Date Type Department Care Team (Late st Contact Info) Description 01/03/2024 Abstract [facility] [address] [place] [phone] Gerardo Meredith DO [address] [place], [place] [address] Social History Tobacco Use Types Packs/Day Years [...] EST Routine [facility] [address] [place] [phone] Gerardo Meredith DO [address] [place], [place] [id number] documented as of this encounter Visit Diagnoses Not on filedocumented in this encounter Care Teams Junction Maker Relationship Specialty Start Date End Date Hector Dai MD [address] [place] [address] PCP - General Family Medicine 04/07/24 documented as of this encounter
--- OUTSIDE RECORDS SUMMARY | 2025-02-28 15:22 | XMS_ITS | Encounter Summary ---
Author Organization [facility] Address [id number] [address] [place] [address] Care Team Providers Care Supervising Airplane Pilot Name Role Phone Hector Dai MD Primary Care Provider [phone] Encounter Details Date Type Department Care Team (Late st Contact Info) Description 11/02/2023 Orders Only [facility] Internal Medicine - Family Medicine [address] [place] [address] External, Scanning Provider Social History [...] Upcoming Encounters Date Type Department Care Team ([facility] Contact Info) Description 03/09/2025 11:30 AM EDT Office Visit Maternal- Medicine at [place] [id number] [place] [address] Fatou Harper MD [address] [facility], [address] [place] [address] 03/13/2025 1:00 PM EDT Appointment [facility] - Ultrasound [address] [place] [address] documented as of this encounter Procedures Procedure [...] documented as of this encounter Care Teams Supervising Airplane Pilot Relationship Specialty Start Date End Date Hector Dai MD [address] [facility] [place] [address] PCP - General Family Medicine 10/12/24 documented as of this encounter
--- OUTSIDE RECORDS SUMMARY | 2025-02-28 15:22 | XMS_ITS | Encounter Summary ---
Author Organization [facility] Address [address] [place] [address] Care Team Providers Care Vegetable Picker Name Role Phone Hector Dai MD Primary Care Provider [phone] Encounter Details Date Type Department Care Team (Late st Contact Info) Description 01/14/2024 Abstract [facility] [address] [place] [phone] Gerardo Meredith DO [address], [place] [address] Social History Tobacco Use Types Packs/Day Years [...] EST Routine [facility] [address] [place] [phone] Gerardo Meredith DO [address] [place], [place] [id number] documented as of this encounter Visit Diagnoses Not on filedocumented in this encounter Care Teams Vegetable Picker Relationship Specialty Start Date End Date Hector Dai MD [address] [place] [address] PCP - General Family Medicine 04/07/24 documented as of this encounter
--- OUTSIDE RECORDS SUMMARY | 2025-02-28 15:22 | XMS_ITS | Encounter Summary ---
Author Organization [facility] Address [address] [place] [address] Care Team Providers Care Zig Zag Spring Machine Operator Name Role Phone Hector Dai MD Primary Care Provider [phone] Encounter Details Date Type Department Care Team (Late st Contact Info) Description 12/21/2024 Abstract [facility] [address] [facility] [address] Mara Bain MA Social History Tobacco [...] 10:50 AM EST Routine [facility] [address] [facility] [place] [place] [address] Gerardo Meredith DO [address] [place], [place] [id number] documented as of this encounter Goals Goal Patient Goal Type Associated Problems Recent Progress Patient-Stated? Author Reminders Care Plan OB Reminders No Open Scheduling, Background documented as of this encounter Visit Diagnoses Not on filedocumented in this encounter Additional Health Concerns Active Problems Noted Date Diagnosed Date OB Reminders 12/11/2024 documented as of this encounter Care Teams Zig Zag Spring Machine Operator Relationship Specialty Start Date End Date Hector Dai MD [address] [place] [address] PCP - General Family Medicine 04/07/24 documented as of this encounter
--- OUTSIDE RECORDS SUMMARY | 2025-02-28 15:22 | XMS_ITS | Encounter Summary ---
Author Organization [facility] Address [address] [place] [address] Care Team Providers Care Disc Pad Grinding Machine Feeder Name Role Phone Hector Dai MD Primary Care Provider [phone] Encounter Details Date Type Department Care Team (Late st Contact Info) Description 01/14/2024 Abstract [facility] [address] [place] [phone] Gerardo Meredith DO [address] [place], [place] [address] Social History Tobacco Use Types Packs/Day Years [...] EST Routine [facility] [address] [place] [address] Gerardo Meredith DO [address] [place], [place] [id number] documented as of this encounter Visit Diagnoses Not on filedocumented in this encounter Care Teams Disc Pad Grinding Machine Feeder Relationship Specialty Start Date End Date Hector Dai MD [address] [place] [address] PCP - General Family Medicine 04/07/24 documented as of this encounter
--- OUTSIDE RECORDS SUMMARY | 2025-02-28 15:22 | XMS_ITS | Encounter Summary ---
Author Organization [facility] Address [address] [place] [address] Care Team Providers Care Network Announcer Name Role Phone Hector Dai MD Primary Care Provider [phone] Encounter Details Date Type Department Care Team (Late st Contact Info) Description 12/25/2024 Abstract [facility] [address] [place] [address] Gerardo Meredith DO [address] [place], [place] [address] Social History Tobacco Use Types Packs/Day Years [...] EST Routine [facility] [address] [place] [address] Gerardo Meredith DO [address] [place] [address] documented as of this encounter Goals Goal Patient Goal Type Associated Problems Recent Progress Patient-Stated? Author Reminders Care Plan OB Reminders No Open Scheduling, Background documented as of this encounter Visit Diagnoses Not on filedocumented in this encounter Additional Health Concerns Active Problems Noted Date Diagnosed Date OB Reminders 12/11/2024 documented as of this encounter Care Teams Network Announcer Relationship Specialty Start Date End Date Hector Dai MD [address] [place] [address] PCP - General Family Medicine 04/07/24 documented as of this encounter
--- OUTSIDE RECORDS SUMMARY | 2025-02-28 15:23 | XMS_ITS | Encounter Summary ---
Author Organization [facility] Address [facility] [id number] [address] [place] [address] Care Team Providers Care Color Mixer Name Role Phone Hector Dai MD Primary Care Provider [phone] Encounter Details Date Type Department Care Team (Late st Contact Info) Description 02/03/2024 Orders Only [facility] - Family Medicine [address] [place] [address] Ref Prov, [place] [address] Social History Tobacco Use Types Packs/Day Years [...] Care Team (Late st Contact Info) Description 03/09/2025 11:30 AM EDT Office Visit Maternal- Medicine at [facility] [address] [place] [address] Fatou Harper MD [address] [facility], [address] [place] [address] 03/13/2025 1:00 PM EDT Appointment [facility] - Ultrasound [address] [place] [address] documented as of this encounter Procedures Procedure [...] documented as of this encounter Care Teams Color Mixer Relationship Specialty Start Date End Date Hector Dai MD [address] [place] [address] PCP - General Family Medicine 10/12/24 documented as of this encounter
--- OUTSIDE RECORDS SUMMARY | 2025-02-28 15:23 | XMS_ITS | Encounter Summary ---
Author Organization [facility] Address [address] [place] [address] Care Team Providers Care Helper Driver Name Role Phone Hector Dai MD Primary Care Provider [phone] Encounter Details Date Type Department Care Team (Late st Contact Info) Description 02/28/2025 Bamboo flowsheet [facility] [address] [place] [address] Gerardo Meredith DO [address] [place], [place] [address] Social History Tobacco Use Types Packs/Day Years [...] 03/28/2025 10:50 AM EST Routine [facility] [address] [place] [address] Gerardo Meredith DO [address] [place], [facility] documented as of this encounter Goals Goal Patient Goal Type Associated Problems Recent Progress Patient-Stated? Author Reminders Care Plan OB Reminders No Open Scheduling, Background documented as of this encounter Visit Diagnoses Not on filedocumented in this encounter Additional Health Concerns Active Problems Noted Date Diagnosed Date OB Reminders 12/11/2024 documented as of this encounter Care Teams Helper Driver Relationship Specialty Start Date End Date Hector Dai MD [address] [place] [address] PCP - General Family Medicine 04/07/24 documented as of this encounter
--- OUTSIDE RECORDS SUMMARY | 2025-02-28 15:23 | XMS_ITS | Clinical Summary ---
Author Organization [facility] Address [address] [place] [address] Care Team Providers Care Federal Agent Name Role Phone Hector Dai MD Primary Care Provider [phone] Allergies No known active allergies Medications pantoprazole (ProtoNix) 40 MG EC tablet Take 40 mg by mouth in the morning. Take before meals. Do not crush, chew, or split.. Active buPROPion SR (Wellbutrin SR) 150 MG 12 hr tabletIndications:M ood disorder,Anxious mood Take 1 tablet (150 mg) by mouth Daily Take 1 tablet daily 180 tablet 1 4 03/08/20 25 Active levothyroxine (Synthroid, Levoxyl) 175 MCG tabletIndications:P ostoperative hypothyroidism Take 1 tablet (175 mcg) by mouth in the morning. Take before meals. 90 tablet 1 4 Active busPIRone (Buspar) 5 MG tablet Take by mouth in the morning and before bedtime. Unsure of dose . Active liothyronine (Cytomel) 5 MCG tabletIndications:P ostoperative hypothyroidism TAKE 1 TABLET BY MOUTH DAILY. 90 tablet 1 5 Active magnesium oxide (Mag-Ox) 400 MG tabletIndications:P regnancy headache, antepartum ([facility]) Take 1 tablet (400 mg) by mouth Daily 30 tablet 6 5 12/20/19 26 Active calcium carbonate (Tums) 500 MG chewable tabletIndications:H eartburn during in second trimester ([facility]) Chew 1 tablet (500 mg) Daily 30 tablet 11 5 01/26/20 26 Active metoclopramide (Reglan) 10 MG tabletIndications:H eartburn during in second trimester ([facility]) Take 1 tablet (10 mg) by mouth in the morning and 1 tablet (10 mg) at noon and 1 tablet (10 mg) in the evening. Take before meals. Take 1 tablet by mouth 30 minutes prior to meals 3 times daily as needed for nausea. 90 tablet 5 Active levothyroxine (Synthroid, Levoxyl) 50 MCG tablet Take 50 mcg by mouth in the morning. Take before meals. 5 Active Encounters Date Type Department Care Team Description 02/28/2025 2:00 PM [place] [address] Gerardo Meredith DO Second trimester ([facility]); 19 weeks gestation of ([facility]); Thyroid disease 02/28/2025 [place] [address] Gerardo Meredith DO 02/27/2025 Travel 01/31/2025 4:00 PM [place] [address] Nichelle Sanchez PA 15 weeks gestation of ([facility]); Second trimester ([facility]); Screening, , for anatomic survey ([facility]) 01/31/2025 [place] [address] Nichelle Sanchez PA 01/29/2025 Travel 01/25/2025 [place] [address] Tabitha Rice LPN 01/19/2025 [place] [address] Mara Bain, [place] 01/17/2025 Abstract [facility] [address] [address] Mara [place], [place] 01/16/2025 Abstract [facility] [address] [address] Mara [place], [place] 01/09/2025 Abstract [facility] [address] [place] [phone] Gerardo Meredith, DO 01/04/2025 Telephone [facility] [address] [place] [address] [place] [address] Karolyn Fult[place], [place] 01/02/2025 11:10 AM EDT Routine [facility] [address] [place] [phone] Gerardo Meredith, 11 weeks gestation of ([facility]); First trimester ([facility]); Thyroid disease ; H/O thyroidectomy; Exposure to STD; Vaginal discharge; Constipation, unspecified constipation type 01/02/2025 External Result Encounter NOMS External Department Unsolicited Gerardo Meredith, DO 01/02/2025 Bamboo flowsheet [facility] [address] [place] [address] [place] [address] Gerardo Meredith, DO 12/29/2024 Abstract [facility] [address] [place] [address] Gerardo Meredith, DO 12/26/2024 Telephone [facility] [address] [place] [address] Tabitha Rice LPN 12/26/2024 Abstract [facility] [address] [place] [address] Gerardo Meredith, DO 12/25/2024 Abstract [facility] [address] [place] [address] Gerardo Meredith, DO 12/21/2024 Abstract [facility] [address] [place] [address] Mara Bain [place] 12/19/2024 1:00 PM EDT Routine [facility] [address] [place] [address] Gerardo Meredith, First trimester ([facility]); 9 weeks gestation of ([facility]); Encounter to discuss test results; headache, antepartum ([facility]); Nausea 12/19/2024 Bamboo flowsheet [facility] [address] [address] Gerardo Meredith, DO 12/18/2024 Abstract [facility] [address] [place] [address] Gerardo Meredith, DO 12/18/2024 Travel 12/18/2024 Telephone [facility] [address] [place] [address] Mara Bain [place] 12/16/2024 Clinisync Result Encounter NOMS External Department Unsolicited Gerardo Meredith, DO 12/14/2024 Refill [facility] [address] [place] [address] Loretta Winkler MD Postoperative hypothyroidism 12/07/2024 2:30 PM EDT Initial [facility] [address] [place] [address] [place]: 7w5d 12/06/2024 Travel 11/30/2024 2:30 PM EDT Ancillary Procedure [facility] [address] [place] [address] with abdominal cramping of lower quadrant, antepartum ([facility]) from Last 3 Months Family History Medical [...] Pressure 126/72 02/28/2025 2:28 PM EDT Pulse 84 05/09/2024 9:23 AM EST Temperature - - Respiratory Rate 18 05/09/2024 9:23 AM EST Oxygen Saturation - - Inhaled Oxygen Concentration - - Weight 110 kg (241 lb 8 oz) 02/28/2025 2:28 PM E DT Height 160 cm (5' 3 ) 05/09/2024 9:23 AM EST Body Mass Index 42.78 05/09/2024 9:23 AM EST Plan of Treatment Upcoming Encounters Date Type Department Care Team (Late st Contact Info) Description 03/28/2025 10:50 AM EST Routine [facility] [address] [phone] Gerardo Meredith, [address] [place], [place] [phone] Health Maintenance Due Date Last Done Comments Influenza Vaccine (#1) 2025 4, 02/22/2023, 03/14/2020, Additional history exists Goals Goal Patient Goal Type Associated Problems Recent Progress Patient-Stated? Author Reminders Care Plan OB Reminders No Open Scheduling, Background Procedures Procedure Name Priority Date/Time Associated Diagnosis Comments POCT URINALYSIS DIPSTICK Routine 02/28/2025 2:34 PM EDT Second trimester ([facility]) POCT URINALYSIS DIPSTICK Routine 01/31/2025 4:19 PM EDT 15 weeks gestation of ([facility]) Second trimester ([facility]) RECURRENT VAGINITIS (HTRX) Routine 01/02/2025 12:14 PM EDT POCT URINALYSIS DIPSTICK Routine 01/02/2025 11:49 AM EDT 11 weeks gestation of ([facility]) First trimester ([facility]) POCT URINALYSIS DIPSTICK Routine 12/19/2024 1:29 PM EDT First trimester ([facility]) 9 weeks gestation of ([facility]) HBSAG SCREEN Routine 12/16/2024 10:46 AM EDT [...] with abdominal cramping of lower quadrant, antepartum ([facility]) from Last 3 Months Results * (ABNORMAL) POCT urinalysis dipstick manually resulted (02/28/2025 2:34 PM EDT) Only the most recent of5 resultswithin the time period is included. Color, [...] ENTER/EDIT OR DERABLES Final Result * (ABNORMAL) RECURRENT VAGINITIS (HTRX) (01/02/2025 12:14 PM EDT) [facility] ATOPOBIUM VAGINAE 28.556(A) 19.961 - 24.689 ppm 01/03/2025 8:06 AM EDT [facility] ATOPOBIUM VAGINAE Detected(A) 19.961 - 24.689 ppm 01/03/2025 8:06 AM EDT [facility] BVAB 2,3 (BACTERIAL VAGINOSIS ASSOCIATED BACTERIA 2, 3); MOBILUNCUS SPP 24.03(A) 19.961 - 24.689 ppm 01/03/2025 8:06 AM EDT [facility] BVAB 2,3 (BACTERIAL VAGINOSIS ASSOCIATED BACTERIA 2, 3); MOBILUNCUS SPP Detected(A) 19.961 - 24.689 ppm 01/03/2025 8:06 AM EDT [facility] GENESIS ALBICANS, PARAPSILOSIS, TROPICALIS 0 23.000 - 30.347 ppm 01/03/2025 8:06 AM EDT [facility] GENESIS ALBICANS, PARAPSILOSIS, TROPICALIS Not Detected 23.000 - 30.347 ppm 01/03/2025 8:06 AM EDT [facility] GENESIS GLABRATA 0 23.000 - 31.618 ppm 01/03/2025 8:06 AM EDT [facility] GENESIS GLABRATA Not Detected 23.000 - 31.618 ppm 01/03/2025 8:06 AM EDT [facility] GENESIS KRUSEI 0 23.000 - 30.873 ppm 01/03/2025 8:06 AM EDT [facility] GENESIS KRUSEI Not Detected 23.000 - 30.873 ppm 01/03/2025 8:06 AM EDT [facility] CHLAMYDIA TRACHOMATIS 0 23.000 - 31.586 ppm 01/03/2025 8:06 AM EDT [facility] CHLAMYDIA TRACHOMATIS Not Detected 23.000 - 31.586 ppm 01/03/2025 8:06 AM EDT [facility] GARDNERELLA VAGINALIS 0 19.961 - 24.689 ppm 01/03/2025 8:06 AM EDT [facility] GARDNERELLA VAGINALIS Not Detected 19.961 - 24.689 ppm 01/03/2025 8:06 AM EDT [facility] MEGASPHAERA (TYPES 1, 2) 0 19.961 - 24.689 ppm 01/03/2025 8:06 AM EDT [facility] MEGASPHAERA (TYPES 1, 2) Not Detected 19.961 - 24.689 ppm 01/03/2025 8:06 AM EDT [facility] NEISSERIA GONORRHOEAE 0 23.000 - 32.587 ppm 01/03/2025 8:06 AM EDT [facility] NEISSERIA GONORRHOEAE Not Detected 23.000 - 32.587 ppm 01/03/2025 8:06 AM EDT [facility] TRICHOMONAS VAGINALIS 0 23.000 - 31.995 ppm 01/03/2025 8:06 AM EDT [facility] TRICHOMONAS VAGINALIS Not Detected 23.000 - 31.995 ppm 01/03/2025 8:06 AM EDT [facility] MYCOPLASMA GENITALIUM 0 19.961 - 24.689 ppm 01/03/2025 8:06 AM EDT [facility] MYCOPLASMA GENITALIUM Not Detected 19.961 - 24.689 ppm 01/03/2025 8:06 AM EDT [facility] Tissue 01/02/2025 12:1 4 PM EDT 01/03/2025 2:19 AM EDT us Gerardo Viri DO LAB BLOOD ORDERABLES Final Resul t [facility] [address] [address] * BOX TEST (12/16/2024 10:46 AM EDT) Pathologist [facility] BOX TEST SENT OUT [facility] [address]1 [facility] [address] 01/03/2025 [facility] 12/16/2024 10:4 6 AM EDT 12/16/2024 10:51 AM EDT Narrative [facility] - 12/16/2024 10:53 AM EDT Gerardo Viri DO LAB BLOOD ORDERABLES Final Resul t Performing Organization Address City/[facility]/ZIP Co de Phone Number [facility] * HBSAG SCREEN (12/16/2024 10:46 AM EDT) [facility] HBSAG SCREEN Negative Negative [facility] Comment: Performed at: [facility] [address] [id number] [employer] Developer: Sukhjinder Wong PhD, Phone: [phone] 12/16/2024 10:4 6 AM EDT 12/16/2024 10:51 AM EDT Narrative [facility] - 12/17/2024 11:09 AM EDT Gerardo Viri LAB BLOOD ORDERABLES Final Resul t Performing Organization Address [facility] Co de Phone Number [facility] * RAPID PLASMA REAGIN, QUANT (12/16/2024 10:46 AM EDT) [facility] RAPID PLASMA REAGIN, QUANT Non Reactive NonRea<1: 1 titer [facility] Comment: Please Note: This test does not meet current guidelines for screening and diagnosis of syphilis. This test is intended for following treatment response in patients being treated for syphilis infection. To screen for syphilis infection, a reflex cascade that includes both RPR and a treponema-specific assay should be utilized, such as Treponema pallidum (Syphilis) Screening [place] (596640) or Rapid Plasma Reagin (RPR) Test With Reflex to Quantitative RPR and Confirmatory Treponema pallidum Antibodies (228149). Performed at: [facility] [id number] [employer]: Sukhjinder Wong PhD, Phone: [phone] 12/16/2024 10:4 6 AM EDT 12/16/2024 10:51 AM EDT Narrative CLINISYNC - 12/17/2024 11:09 AM EDT us Gerardo Viri DO LAB BLOOD ORDERABLES Final Resul t Performing Organization Address [facility] de Phone Number [facility] * HIV AB/P24 AG WITH REFLEX (12/16/2024 10:46 AM EDT) HIV AB/P24 AG SCREEN Non Reactive Non Reactive [facility] Comment: HIV-1/HIV-2 antibodies and HIV-1 p24 antigen were NOT detected. There is no laboratory evidence of HIV infection. HIV Negative Performed at: [facility] [address] [id number] [employer]: Sukhjinder Wong PhD, Phone: [phone] 12/16/2024 10:4 6 AM EDT 12/16/2024 10:51 AM EDT Narrative CLINISYNC - 12/17/2024 9:08 AM EDT us DesignFace ITo DO LAB BLOOD ORDERABLES Final Resul t Performing Organization Address [facility] Phone Number [facility] * HCV ANTIBODY RFX TO QUANT PCR (12/16/2024 10:46 AM EDT) Pathologist [facility] HCV AB Non Reactive Non Reactive [facility] INTERPRETATION: Comment . [facility] Comment: Not infected with HCV unless early or acute infection is suspected (which may be delayed in an immunocompromised individual), or other evidence exists to indicate HCV infection. 12/16/2024 10:4 6 AM EDT 12/16/2024 10:51 AM EDT Narrative CLINISYNC - 12/17/2024 8:08 AM EDT us Gerardo Viri DO LAB BLOOD ORDERABLES Final Resul t Performing Organization Address [facility]/State/ZIP Co de Phone Number [facility] * MLR HEMOGLOBIN A1C (12/16/2024 10:46 AM EDT) GLYCOHEMOGLOBIN A1C 4.9 4.5 - 6.2 % [facility] Comment: ADA RECOMMENDED LIMIT 4.0 - 6.0 ADA THERAPEUTIC TARGET < 7.0 ACTION SUGGESTED > 7.0 ESTIMATED AVERAGE GLUCOSE 94 mg/dL [facility] 12/16/2024 10:4 6 AM EDT 12/16/2024 10:51 AM EDT Narrative CLINISYNC - 12/16/2024 11:19 AM EDT us Gerardo Viri DO CLINISYNC Final Result Performing Organization Address [facility] Co de Phone Number [facility] * ALL TYPE AND SCREEN (12/16/2024 10:46 AM EDT) Pathologist [facility] BLOOD TYPE A Positive [facility] ANTIBODY SCREEN NEGATIVE TB 12/16/2024 10:4 6 AM EDT 12/16/2024 10:51 AM EDT Narrative CLINISYNC - 12/16/2024 12:20 PM EDT [facility] , Gerardo Viri DO CLINISYNC Final Result Performing Organization Address [facility] Co de Phone Number [facility] TB * (ABNORMAL) ALL THYROID STIM HORMONE (12/16/2024 10:46 AM EDT) Pathologist [facility] THYROID STIMULATING HORMONE 50.067(H) 0.358 - 3.740 uIU/mL TB 12/16/2024 10:4 6 AM EDT 12/16/2024 10:51 AM EDT Narrative CLINISYNC - 12/16/2024 11:38 AM EDT Gerardo Viri DO CLINISYNC Final Result [facility] TB * ALL RUBELLA IGG AB (12/16/2024 10:46 AM EDT) [facility] RUBELLA ANTIBODIES, IGG 4.26 Immune >0.99 index [facility] Comment: Non-immune <0.90 Equivocal 0.90 - 0.99 Immune >0.99 Performed at: [address] [id number] [employer]: Sukhjinder Wong PhD, Phone: [phone] 12/16/2024 10:4 6 AM EDT 12/16/2024 10:51 AM EDT Narrative CLINISYNC - 12/17/2024 8:08 AM EDT us Gerardo Viri DO CLINISYNC Final Result [facility] * ALL CBC WITH AUTO DIFF (12/16/2024 10:46 AM EDT) [facility] TB WBC 6.3 4.0 - 11.0 10 3/uL [facility] TB RBC 4.68 4.20 - 5.40 10 6/uL [facility] TB HGB 13.4 12.0 - 16.0 g/dL TB TB HCT 39.7 36.0 - 48.0 % TB TB MCV 84.8 81.0 - 99.0 fL TB TB MCH 28.6 26.7 - 34.0 pg TBH TB MCHC 33.8 29.9 - 35.2 g/dL TB TB RDW 13.3 11.0 - 15.0 % TB[facility] TB PLT 238 150 - 450 10 3/uL TB TB MPV 11.2 9.5 - 13.5 fL TBH NEUTROPHILS PERCENT AUTO 69.1 43.0 - 75.0 % TBH LYMPHOCYTES PERCENT AUTO 23.6 20.5 - 60.0 % TB[facility] MONOCYTES PERCENT AUTO 4.9 1.7 - 12.0 % [facility]H TBH EO % 1.4 0.9 - 7.0 % TBH BASOPHILS PERCENT AUTO 0.8 0.2 - 2.0 % TB IMMATURE GRANULOCYTES PCT AUTO 0.2 0.0 - 0.5 % TB NEUTROPHILS ABSOLUTE AUTO 4.4 1.4 - 6.5 [...] CLINISYNC - 12/16/2024 11:05 AM EDT Gerardo Burto DO CLINISYNC Final Result [facility] * TB DRUG SCREEN RAPID (URINE) [...] Gerardo Viri DO [facility] Final Result [facility] * (ABNORMAL) POCT , urine manually resulted [...] BY: Nathen Brown MD us Marcia Naranjo NP IMG OB US PROCEDURES Final Re sult from Last 3 Months Additional Health Concerns Active Problems Noted Date Diagnosed Date OB Reminders 12/11/2024 Insurance [employer] Care Teams Federal Agent Relationship Specialty Start Date End Date Hector Dai MD [address] [place] [address] PCP - General Family Medicine 04/07/24
--- OUTSIDE RECORDS SUMMARY | 2025-02-28 15:23 | XMS_ITS | Encounter Summary ---
Author Organization [facility] Address [address] [place] [address] Care Team Providers Care Die Out Worker Name Role Phone Hector Dai MD Primary Care Provider [phone] Encounter Details Date Type Department Care Team (Late st Contact Info) Description 12/29/2024 Abstract [facility] [address] [place] [address] Gerardo Meredith DO [address], [place] [address] Social History Tobacco Use Types Packs/Day Years [...] EST Routine [facility] [address] [place] [address] Gerardo Meredith DO [address] [place] [address] documented as of this encounter Goals Goal Patient Goal Type Associated Problems Recent Progress Patient-Stated? Author Reminders Care Plan OB Reminders No Open Scheduling, Background documented as of this encounter Visit Diagnoses Not on filedocumented in this encounter Additional Health Concerns Active Problems Noted Date Diagnosed Date OB Reminders 12/11/2024 documented as of this encounter Care Teams Die Out Worker Relationship Specialty Start Date End Date Hector Dai MD [address] [place] [address] PCP - General Family Medicine 04/07/24 documented as of this encounter
--- OUTSIDE RECORDS SUMMARY | 2025-02-28 15:23 | XMS_ITS | Encounter Summary ---
Author Organization [employer] Address [id number] [address] [place] [address] Care Team Providers Care Attendant Sales Name Role Phone Hector Dai MD Primary Care Provider [phone] Reason for Visit * Reason Comments Med Refill Encounter Details Date Type Department Care Team (Late st Contact Info) Description 12/13/2023 Refill [facility] - Family Medicine [address] [place] [address] Anita Sherwood, TOOTH CUTTER SPUR-PLASTIC CABLEMAKING MACHINE OPERATOR [address] [place] [address] Social History Tobacco Use Types Packs/Day Years [...] Upcoming Encounters Date Type Department Care Team ([facility] st Contact Info) Description 03/09/2025 11:30 AM EDT Office Visit Maternal- Medicine at [facility] [address] [place] [address] Fatou Harper MD [address] [facility], [address] [place] [address] 03/13/2025 1:00 PM EDT Appointment [facility] - Ultrasound [address] [place] [address] documented as of this encounter Visit Diagnoses Not on filedocumented in this encounter Additional Health Concerns Assessment Noted Time PHQ-9 Depression Total Score: 0 11/23/19 4:08 PM EDT documented as of this encounter Care Teams Attendant Sales Relationship Specialty Start Date End Date Hector Dai MD [address] [facility] [place] [address] PCP - General Family Medicine 10/12/24 documented as of this encounter
--- OUTSIDE RECORDS SUMMARY | 2025-02-28 15:23 | XMS_ITS | Encounter Summary ---
Author Organization [facility] [employer] Address [id number] [address] [place] [address] Care Team Providers Care Net Developer Consultant Name Role Phone Hector Dai MD Primary Care Provider [phone] Encounter Details Date Type Department Care Team (Late st Contact Info) Description 03/03/2024 Orders Only [facility] - Family Medicine [address] [place] [address] Anita hSerwood, DIRECTOR [employer]-SUPERVISOR ASSEMBLY DEPARTMENT [address] [place] [address] Social History Tobacco Use Types Packs/Day Years [...] Upcoming Encounters Date Type Department Care Team ([facility] Contact Info) Description 03/09/2025 11:30 AM EDT Office Visit Maternal- Medicine at [facility] [address] [place] [address] Fatou Harper MD [address] [facility], [address] [place] [address] 03/13/2025 1:00 PM EDT Appointment [facility] - Ultrasound [address] [place] [address] documented as of this encounter Visit Diagnoses Not on filedocumented in this encounter Additional Health Concerns Assessment Noted Time PHQ-9 Depression Total Score: 0 11/23/19 24 4:08 PM EDT documented as of this encounter Care Teams Net Developer Consultant Relationship Specialty Start Date End Date Hector Dai MD [address] [facility] [place] [address] PCP - General Family Medicine 10/12/24 documented as of this encounter
--- OUTSIDE RECORDS SUMMARY | 2025-02-28 15:23 | XMS_ITS | Encounter Summary ---
Author Organization [facility] Address [address] [place] [address] Care Team Providers Care Professor Of History Name Role Phone Anita Sherwood SUMA Primary Care Provider [phone] Source Comments In the event this information is protected by the Federal Confidentiality of Alcohol and Drug AbusePatient Records regulations: The Federal rules restrict any use of the information to criminally investigate or prosecute any alcohol or drug abuse patient.[facility] Encounter Details Date Type Department Care Team (Late st Contact Info) Description 09/01/2023 Patient Msg Endocrinology [address] [phone] Yesi Pizano MD [address] [place] [address] Testosterone Social History Tobacco Use Types Packs/Day [...] is lower risk 9 01/07/2023 Data from: https://www.neighborhoodatlas.medicine.[facility].edu/. Last address used for calculation [address] 01/07/2023 Comments No Sex and Gender Information Value Date Recorded Sex Assigned at Not on file Legal Sex Female 3:42 PM EDT Gender Identity Not on file Sexual Orientation Not on file documented as of this encounter Plan of Treatment Not on file documented as of this encounter Visit Diagnoses Not on filedocumented in this encounter Care Teams Professor Of History Relationship Specialty Start Date End Date Anita Sherwood NP [address] [place] [phone] PCP - General Family Medicine 08/17/23 documented as of this encounter
--- OUTSIDE RECORDS SUMMARY | 2025-02-28 15:23 | XMS_ITS | Encounter Summary ---
Author Organization [facility] Address [facility] [place] [place] [address] Care Team Providers Care Service Tech Name Role Phone Anita Sherwood SUMA Primary Care Provider [phone] Source Comments In the event this information is protected by the Federal Confidentiality of Alcohol and Drug AbusePatient Records regulations: The Federal rules restrict any use of the information to criminally investigate or prosecute any alcohol or drug abuse patient.[facility] Encounter Details Date Type Department Care Team (Late st Contact Info) Description 09/10/2023 Patient Msg Head and Neck [place] [address] [place] [address] Provider, Rito CHRIS Social History Tobacco Use [...] is lower risk 9 01/07/2023 Data from: https://www.neighborhoodatlas.[facility]/. Last address used for calculation [address] [...] on filedocumented in this encounter Care Teams Service Tech Relationship Specialty Start Date End Date Anita Sherwood NP [address] [place] [address] PCP - General Family Medicine 08/17/23 documented as of this encounter
--- OUTSIDE RECORDS SUMMARY | 2025-02-28 15:23 | XMS_ITS | Encounter Summary ---
Author Organization [facility] Address [address] [facility] [place] [address] Care Team Providers Care Finished Hardware Erector Name Role Phone Hector Dai MD Primary Care Provider [phone] Encounter Details Date Type Department Care Team (Latest Contact Info) Description 02/27/2025 Travel Social History Tobacco Use Types Packs/Day [...] AM EST Routine [facility] [address] [facility] [place] [phone] Gerardo Meredith DO [address] [facility] [address] [place] [place], [place] [id number] documented as of this encounter Goals Goal Patient Goal Type Associated Problems Recent Progress Patient-Stated? Author Reminders Care Plan OB Reminders No Open Scheduling, Background documented as of this encounter Visit Diagnoses Not on filedocumented in this encounter Additional Health Concerns Active Problems Noted Date Diagnosed Date OB Reminders 12/11/2024 documented as of this encounter Care Teams Finished Hardware Erector Relationship Specialty Start Date End Date Hector Dai MD [address] [place] [address] PCP - General Family Medicine 04/07/24 documented as of this encounter
--- OUTSIDE RECORDS SUMMARY | 2025-02-28 15:23 | XMS_ITS | Encounter Summary ---
Author Organization [facility] Address [address] [place] [address] Care Team Providers Care Road Commissioner Name Role Phone Hector Dai MD Primary Care Provider [phone] Encounter Details Date Type Department Care Team (Late st Contact Info) Description 01/19/2025 Abstract [facility] [address] [facility] [place] [address] Mara Bain MA Social History Tobacco [...] 10:50 AM EST Routine [facility] [address] [facility] [place] [address] Gerardo Meredith DO [address] [place], [place] [id number] documented as of this encounter Goals Goal Patient Goal Type Associated Problems Recent Progress Patient-Stated? Author Reminders Care Plan OB Reminders No Open Scheduling, Background documented as of this encounter Visit Diagnoses Not on filedocumented in this encounter Additional Health Concerns Active Problems Noted Date Diagnosed Date OB Reminders 12/11/2024 documented as of this encounter Care Teams Road Commissioner Relationship Specialty Start Date End Date Hector Dai MD [address] [place] [address] PCP - General Family Medicine 04/07/24 documented as of this encounter
--- OUTSIDE RECORDS SUMMARY | 2025-02-28 15:23 | XMS_ITS | Encounter Summary ---
Author Organization [facility] Address [address] [place] [address] Care Team Providers Care New Autos Delivery Driver Name Role Phone Hector Dai MD Primary Care Provider [phone] Encounter Details Date Type Department Care Team (Late st Contact Info) Description 01/09/2025 Abstract [facility] [address] [place] [address] Gerardo Meredith DO [address] [place], [place] [address] Social History Tobacco Use Types Packs/Day Years [...] Routine [facility] [address] [place] [address] Gerardo Meredith DO [address] [place] [address] documented as of this encounter Goals Goal Patient Goal Type Associated Problems Recent Progress Patient-Stated? Author Reminders Care Plan OB Reminders No Open Scheduling, Background documented as of this encounter Visit Diagnoses Not on filedocumented in this encounter Additional Health Concerns Active Problems Noted Date Diagnosed Date OB Reminders 12/11/2024 documented as of this encounter Care Teams New Autos Delivery Driver Relationship Specialty Start Date End Date Hector Dai MD [address] [place] [address] PCP - General Family Medicine 04/07/24 documented as of this encounter
--- OUTSIDE RECORDS SUMMARY | 2025-02-28 15:23 | XMS_ITS | Encounter Summary ---
Author Organization [facility] tem Address [id number] [place] [address] Care Team Providers Care Front End Architect Name Role Phone Hector Dai MD Primary Care Provider [phone] Encounter Details Date Type Department Care Team (Late st Contact Info) Description 12/28/2024 Orders Only Maternal- Medicine at [facility] [address] [place] [address] Ref Prov, [place] [address] Social History Tobacco Use Types Packs/Day Years Used Date Smoking Tobacco: Never Smokeless Tobacco: Never Alcohol Use Standard Drinks/Week Comments Not Currently 0 (1 standard drink = 0.6 oz [...] got money to buy more. Never True 12/29/2024 Within the past 12 months th e food we bought just didn't last and we didn't have money to get more. Never True 12/29/2024 Purpose - Life Answer Date Recorded Purpose and direction in life Unknown Estimated Date of Delivery Comme nts Yes 07/21/2025 Based on Ultraso und Sex and Gender Information Value Date Recorded Sex Assigned at Not on file Legal Sex Female 2:44 PM EST Gender Identity Not on file Sexual Orientation Not on file documented as of this encounter Plan of Treatment Upcoming Encounters Date Type Department Care Team ([facility] st Contact Info) Description 03/09/2025 11:30 AM EDT Office Visit Maternal- Medicine at [facility] [address] [place] [address] Fatou Harper MD [address] [facility], [address]ST [place] [address] 03/13/2025 1:00 PM EDT Appointment [facility] - Ultrasound [address] [place] [address] documented as of this encounter Visit Diagnoses Not on filedocumented in this encounter Additional Health Concerns Assessment Noted Time PHQ-9 Depression Total Score: 0 03/31/20 24 8:44 AM EST documented as of this encounter Care Teams Front End Architect Relationship Specialty Start Date End Date Hector Dai MD [address] [facility] [address] PCP - General Family Medicine 10/12/24 documented as of this encounter
--- OUTSIDE RECORDS SUMMARY | 2025-02-28 15:23 | XMS_ITS | Encounter Summary ---
Author Organization [employer] [facility] Address [id number] [address] [place] [address] Care Team Providers Care Accounting Bookkeeper Name Role Phone Hector Dai MD Primary Care Provider [phone] Encounter Details Date Type Department Care Team (Late st Contact Info) Description 02/21/2024 [facility]phone [facility] [address] [place] [address] Asad Sam CMA Social History [...] AM EDT Office Visit Maternal- Medicine at [facility] [address] [place] [address] Fatou Harper MD [address] [facility], [address] [place] [address] 03/13/2025 1:00 PM EDT Appointment [facility] - Ultrasound [address] [place] [address] documented as of this encounter Visit Diagnoses Not on filedocumented in this encounter Additional Health Concerns Assessment Noted Time PHQ-9 Depression Total Score: 0 11/23/19 24 4:08 PM EDT documented as of this encounter Care Teams Accounting Bookkeeper Relationship Specialty Start Date End Date Hector Dai MD [address] [place] [address] PCP - General Family Medicine 10/12/24 documented as of this encounter
--- OUTSIDE RECORDS SUMMARY | 2025-02-28 15:23 | XMS_ITS | Clinical Summary ---
Author Organization [employer] [facility] Address [id number] [address] [place] [address] Care Team Providers Care Ship'S Electronic Warfare Officer Name Role Phone Hector Dai MD Primary Care Provider [phone] Allergies No known active allergies Medications ondansetron ODT (ZOFRAN ODT) 4 mg disintegrating [...] before bedtime. 30 g 10/13/19 25 Active liothyronine (CYTOMEL) 5 MCG tablet Take 1 tablet (5 mcg total) by mouth in the morning. Active magnesium oxide (MAGOX) 400 mg tablet Take 1 tablet (400 mg total) by mouth in the morning. Active promethazine (PHENERGAN) 12.5 mg tablet Take 1 tablet (12.5 mg total) by mouth every 6 (six) hours as needed for nausea or vomiting. Active Active Problems Problem Noted Date Diagnosed [...] both eustachian tubes 05/13/2017 Nasal obstruction 05/13/2017 Estimated Date of Delivery Comme nts Yes 07/21/2025 Based on Ultraso und Encounters Date Type Department Care Team Description 01/04/2025 Travel 12/29/2024 10:00 AM EDT Office Visit Maternal- Medicine at [facility] [address] [place] [address] Andrews Harrison MD Khurshid, Nauman, MD Thyroid disease affecting (Primary Dx); Postoperative hypothyroidism 12/29/2024 Orders Only Maternal- Medicine at [facility] [address] [place] [address] Kanchan Guzmán RN Thyroid disease affecting (Primary Dx) 12/29/2024 Travel 12/28/2024 Orders Only Maternal- Medicine at [facility] [address] [place] [address] Ref Prov, Not In System 12/28/2024 Abstract Maternal- Medicine at [facility] [address] [place] [address] Javier Jacobs MD from Last 3 Months Immunizations Immunization Administration [...] Family History Medical History Relation Name Comments Seizures Brother No Known Problems Father Breast cancer Maternal Grandmother Thyroid disease Maternal Grandmother No Known Problems Mother Breast cancer Paternal Grandmother Relation Name Status Comments Brother Father Alive Maternal Grandmother Mother Alive Paternal Grandmother Social History Tobacco Use Types Packs/Day Years Used Date Smoking Tobacco: Never Smokeless Tobacco: Never Tobacco Cessation:Counseling Given: Not Answered Alcohol Use Standard Drinks/Week Comments Not Currently [...] Sign Reading Time Taken Comments Blood Pressure 109/59 12/29/2024 10:06 AM EDT Pulse 86 12/29/2024 10:06 AM EDT Temperature 36.9 C (98.4 F) 10/12/2024 12:32 PM EDT Respiratory Rate 20 10/12/2024 12:3 2 PM EDT Oxygen Saturation 100% 10/12/2024 12: 32 PM EDT Inhaled Oxygen Concentration - - Weight 106.2 kg (234 lb 3.2 oz) 025 10:06 AM EDT Height 160 cm (5' 2.99 ) 12/29/2024 10: 06 AM EDT Body Mass Index 41.5 12/29/2024 10:06 AM EDT Plan of Treatment Upcoming Encounters Date Type Department Care Team (Late st Contact Info) Description 03/09/2025 11:30 AM EDT Office Visit Maternal- Medicine at [facility] [address] [place] [address] Fatou Harper MD [address] [facility], 1[address] [place] [address] 03/13/2025 1:[address] [facility] - Ultrasound [address] [address] Health Maintenance Due Date Last Done Comments Adult BMI Follow Up Plan 2022 Chlamydia Screening 10/27/2024 10/28/2023 Influenza Vaccine 01/15/2025 02/18/2024, , 03/14/2020, Additional history exists Depression Screening 03/31/2025 03/31/2024 DTaP,Tdap and Td Vaccines (7 - Td or Tdap) 11/24/2025 11/25/2015, 09/09/2009, 06/20/2007, Additional history exists Adult BMI Screening 12/29/2025 12/29/2024 Tobacco Screening 12/29/2025 12/29/2024 COVID-19 Vaccine Completed 03/31/2024, , 10/21/2020 Medical Devices Not on file Procedures Procedure Name Priority Date/Time Associated Diagnosis Comments TSH Routine 12/27/2024 T4, FREE Routine 12/18/2024 TYPE AND SCREEN Routine 12/16/2024 TSH Routine 12/16/2024 HEPATITIS B SURFACE ANTIGEN Routine 12/16/2024 HIV 1&2 AB/AG SCREEN (P24 AG) Routine 12/16/2024 RUBELLA IGG IMMUNE STATUS Routine 12/16/2024 HEMOGLOBIN A1C Routine 12/16/2024 DRUG SCREEN, URINE Routine 12/16/2024 CBC (NO DIFF) Routine 12/16/2024 from Last 3 Months Results * TSH (12/27/2024) Only the most recent of2 resultswithin the time period is included. Thyroid Stimulating (3Rd Generation) Hormone/ Tsh 42.135 MANUALLY TRANSCRIBED RESULTS Blood Venous blood / Unknown us Not In System Ref Prov LAB BLOOD ORDERABLES Kirsten l Result MANUALLY TRANSCRIBED RESULTS * T4, free (12/18/2024) T4 Free Free T4 0.81 MANUALLY TRANSCRIBED RESULTS Blood Venous blood / Unknown us Not In System Ref Prov LAB BLOOD ORDERABLES Kirsten l Result MANUALLY TRANSCRIBED RESULTS * HIV 1&2 AB/AG Screen (P24 AG) (12/16/2024) HIV 1&2 AB/AG Non Reactive MAN UALLY TRANSCRIBED RESULTS Blood Venous blood / Unknown us Not In System Ref Prov LAB BLOOD ORDERABLES Kirsten l Result MANUALLY TRANSCRIBED RESULTS * Rubella IGG immune status (12/16/2024) Rubella immune IgG 4.26 MANUALLY TRANSCRIBED RESULTS Blood Venous blood / Unknown us Not In System Ref Prov LAB BLOOD ORDERABLES Kirsten l Result Performing Organization Address [facility] Co de Phone Number MANUALLY TRANSCRIBED RESULTS * Drug Screen, Urine (12/16/2024) Ecstasy Negative MANUALLY TRANSCRIBED RESULTS Methadone Negative MANUALLY TRANSCRIBED RESULTS Opiates Negative MANUALLY TRANSCRIBED RESULTS Amphetamine/Methamp hetamine Negative MANUALLY TRANSCRIBED RESULTS Cocaine Metabolite Negative M ANUALLY TRANSCRIBED RESULTS Phencyclidine Negative MANUAL LY TRANSCRIBED RESULTS Thc Marijuana, Urine Negative MANUALLY TRANSCRIBED RESULTS Oxycodone Negative MANUALLY TRANSCRIBED RESULTS Barbiturates Negative MANUALL Y TRANSCRIBED RESULTS Benzodiazepines Negative MANU ALLY TRANSCRIBED RESULTS Urine us Not In System Ref Prov URINE ORDERABLES Final Re sult Performing Organization Address [facility] Co de Phone Number MANUALLY TRANSCRIBED RESULTS * Hepatitis B surface antigen (12/16/2024) Hepatitis B Surface Antigen Negative MANUALLY TRANSCRIBED RESULTS Blood Venous blood / Unknown us Not In System Ref Prov LAB BLOOD ORDERABLES Kirsten l Result Performing Organization Address [facility] Co de Phone Number MANUALLY TRANSCRIBED RESULTS * CBC without diff (12/16/2024) Hemoglobin 13.4 MANUALLY TRANSCRIBED RESULTS Hematocrit 39.7 MANUALLY TRANSCRIBED RESULTS Rbc Mcv (Fl) By Automated Count 84.8 MANUALLY TRANSCRIBED RESULTS Blood Venous blood / Unknown us Not In System Ref Prov LAB BLOOD ORDERABLES Kirsten l Result Performing Organization Address City/[facility]/ZIP Co de Phone Number MANUALLY TRANSCRIBED RESULTS * Type and screen (12/16/2024) Abo/Rh(D) A Positive MANUALLY TRANSCRIBED RESULTS Antibody Screen Negative MANUALLY TRANSCRIBED RESULTS Blood Venous blood / Unknown us Not In System Ref Prov BLOOD BANK TEST ORDERABLE S Final Result MANUALLY TRANSCRIBED RESULTS * Hemoglobin A1c (12/16/2024) Hemoglobin A1C 4.9 4.0 - 6.0 % MANUALLY TRANSCRIBED RESULTS Blood Venous blood / Unknown us Gerardo Meredith DO LAB BLOOD ORDERABLES Final Resu lt MANUALLY TRANSCRIBED RESULTS from Last 3 Months [facility] Member Subscriber Plan / Payer (Ef fective 2017-Present) Name:Sheyla Lea I Relation to Subscriber:Child Name:MIRNA SAMUEL Date of :1975 Address: [address] [place] [address] Payer ID:[id number] (NAIC) Type:Not on file Address: [facility] [id number] [place] [address] [place] [address] MEDICAID ANTHEM Care Teams Ship'S Electronic Warfare Officer Relationship Specialty Start Date End Date Hector Dai MD [address] [place] [address] PCP - General Family Medicine 10/12/24
--- OUTSIDE RECORDS SUMMARY | 2025-02-28 15:23 | XMS_ITS | Encounter Summary ---
Author Organization [facility] Address [address] [place] [address] Care Team Providers Care Director Of Regional Sales Name Role Phone Hector Dai MD Primary Care Provider [phone] Encounter Details Date Type Department Care Team (Late st Contact Info) Description 01/16/2025 Abstract [facility] [address] [facility] [place] [address] Mara Bain MA Social History Tobacco [...] 10:50 AM EST Routine [facility] [address] [facility] [place] [address] Gerardo Meredith DO [address] [place], [place] [id number] documented as of this encounter Goals Goal Patient Goal Type Associated Problems Recent Progress Patient-Stated? Author Reminders Care Plan OB Reminders No Open Scheduling, Background documented as of this encounter Visit Diagnoses Not on filedocumented in this encounter Additional Health Concerns Active Problems Noted Date Diagnosed Date OB Reminders 12/11/2024 documented as of this encounter Care Teams Director Of Regional Sales Relationship Specialty Start Date End Date Hector Dai MD [address] [place] [address] PCP - General Family Medicine 04/07/24 documented as of this encounter
--- OUTSIDE RECORDS SUMMARY | 2025-02-28 15:23 | XMS_ITS | Encounter Summary ---
Author Organization [employer] tem Address [id number] [address] [place] [address] Care Team Providers Care Mechanic Chief Name Role Phone Hector Dai MD Primary Care Provider [phone] Encounter Details Date Type Department Care Team (Late st Contact Info) Description 12/06/2023 [facility] [address] [place] [address] Angel, Barbara, PEANUT PICKER Social History Tobacco Use Types Packs/Day Years [...] AM EDT Office Visit Maternal- Medicine at [facility] [address] [place] [address] Fatuo Harper MD [address] [facility], [address] [place] [address] 03/13/2025 1:00 PM EDT Appointment [facility] - Ultrasound [address] [place] [address] documented as of this encounter Visit Diagnoses Not on filedocumented in this encounter Additional Health Concerns Assessment Noted Time PHQ-9 Depression Total Score: 0 11/23/19 24 4:08 PM EDT documented as of this encounter Care Teams Mechanic Chief Relationship Specialty Start Date End Date Hector Dai MD [address] [place] [address] PCP - General Family Medicine 10/12/24 documented as of this encounter
--- OUTSIDE RECORDS SUMMARY | 2025-02-28 15:23 | XMS_ITS | Clinical Summary ---
Author Organization [facility] Address [address] [place] [address] Care Team Providers Care Captain Room Service Name Role Phone Anita Sherwood NP Primary [...] is lower risk 9 05/12/2024 Data from: https://www.neighborhoodatlas.medicine.[facility].edu/. Last address used for calculation [address] 05/12/2024 Comments No Sex and Gender [...] C Screening 2022 Covid-19 Vaccine (3 - 2024-2 6 season) 2025 11/11/2020, 10/21/2020 Influenza Vaccine (#1) 2025 , 03/14/2020, 06/23/2005 DTaP,Tdap,Td Vaccine (7 - Td or Tdap) 11/24/2025 11/25/2015, 09/09/2009, 06/20/2007, Additional history exists Hepatitis B Vaccine Completed 06/23/2005, 2004, 2004 HPV Vaccine Completed 12/26/2021, 11/25/2015 Insurance BLUE CARD PPO OOS BLUE ACCESS PPO BLUE CARD PPO OOS BLUE ACCESS PPO Care Teams Captain Room Service Relationship Specialty Start Date End Date Anita Sherwood NP [address] [place] [address] PCP - General Family Medicine 08/17/23
--- OUTSIDE RECORDS SUMMARY | 2025-02-28 15:23 | XMS_ITS | Encounter Summary ---
Author Organization [facility] Address [address] [place] [address] Care Team Providers Care Corner Cutter Machine Operator Name Role Phone Hector Dai MD Primary Care Provider [phone] Encounter Details Date Type Department Care Team (Late st Contact Info) Description 01/19/2024 Abstract [facility] [address] [place] [address] Gerardo Meredith DO [address], [place] [address] Social History Tobacco Use Types Packs/Day Years [...] EST Routine [facility] [address] [place] [address] Gerardo Meredith DO [address] [place], [place] [id number] documented as of this encounter Visit Diagnoses Not on filedocumented in this encounter Care Teams Corner Cutter Machine Operator Relationship Specialty Start Date End Date Hector Dai MD [address] [place] [address] PCP - General Family Medicine 04/07/24 documented as of this encounter
--- OUTSIDE RECORDS SUMMARY | 2025-02-28 15:23 | XMS_ITS | Encounter Summary ---
Author Organization [facility] [employer] [facility] Address [id number] [address] [place] [address] Care Team Providers Care Coal Handler Name Role Phone Hector Dai MD Primary Care Provider [phone] Encounter Details Date Type Department Care Team (Late st Contact Info) Description 11/29/2023 Orders Only [facility] Internal Medicine - Family Medicine [address] [place] [address] Susy Lee CMA Postoperative hypothyroidism [...] Office Visit Maternal- Medicine at [facility] [address] [place] [address] Fatou Harper MD [address] [facility], [address] [place] [address] 03/13/2025 1:00 PM EDT Appointment [facility] - Ultrasound [address] [place] [address] documented as of this encounter Procedures Procedure Name Priority Date/Time Associated Diagnosis Comments TSH Routine 11/26/2023 Postoperative hypothyroidism documented in this encounter Results * TSH (11/26/2023) External Tsh 0.643 [facility]QUEST 11/26/2023 Anita Sherwood TESTBOARD OPERATOR-HAY CHOPPER LAB BLOOD ORDERABLES Fin al Result SUNQUEST documented in this encounter Visit Diagnoses Diagnosis Postoperative hypothyroidism Postsurgical hypothyroidism documented in this encounter Additional Health Concerns Assessment Noted Time PHQ-9 Depression Total Score: 0 11/23/19 24 4:08 PM EDT documented as of this encounter Care Teams Coal Handler Relationship Specialty Start Date End Date Hector Dai MD [address] [place] [address] PCP - General Family Medicine 10/12/24 documented as of this encounter
--- OUTSIDE RECORDS SUMMARY | 2025-02-28 15:23 | XMS_ITS | Encounter Summary ---
Author Organization [facility] Address [facility] [place] [address] Care Team Providers Care Mine Inspector Federal Name Role Phone Anita Sherwood SUMA Primary Care Provider [phone] Source Comments In the event this information is protected by the Federal Confidentiality of Alcohol and Drug AbusePatient Records regulations: The Federal rules restrict any use of the information to criminally investigate or prosecute any alcohol or drug abuse patient.[facility] Encounter Details Date Type Department Care Team (Late st Contact Info) Description 09/10/2023 Patient Msg Head and Neck [place] [address] [place] [address] Provider, Rito CHRIS Social History Tobacco Use [...] is lower risk 9 01/07/2023 Data from: https://www.neighborhoodatlas.[facility]/. Last address used for [...] on filedocumented in this encounter Care Teams Mine Inspector Federal Relationship Specialty Start Date End Date Anita Sherwood NP [address] [place] [address] PCP - General Family Medicine 08/17/23 documented as of this encounter
--- OUTSIDE RECORDS SUMMARY | 2025-02-28 15:23 | XMS_ITS | Patient Health Record ---
Author Organization [facility] in [place] Address [address] [place] [address] Care Team Providers Care Diploma Dental Assistant Name Role Phone Blair Dai Primary Care Provider Allergies No Known Allergies Results Component Value Reference Range Notes PREG QUANT HCG Reviewed date:11/18/2024 07:53:13 PM Interpretation: Performing Lab: Notes/Report: [facility] , HCG Quantitative 4630 10,000-100,000 5-6 WEEKS 100-5,000 2-3 WEEKS 500-10,000 3-4 WEEKS 5-50 0.2-1 WEEK 15,000-200,000 6-8 WEEKS 10,000-100,000 2-3 MONTHS 1,000-50,000 4-5 WEEKS 50-500 1-2 WEEKS Performing Lab: see note ML - [facility] LB CBC AUTO DIFF Reviewed date:07/04/2024 08:39:44 PM Interpretation: Performing Lab: Notes/Report: [facility] , White Blood Count 5.2 4.0-11.0 [...] 3/uL Performing Lab: see note ML - [facility] LB GLYCOHEMOGLOBIN A1C Reviewed date:07/04/2024 08:39:44 PM Interpretation: Performing Lab: Notes/Report: [facility] , Glycohemoglobin A1C 5.5 4.5-6.2 % ADA THERAPEUTIC TARGET < 7.0 > 7.0 ADA RECOMMENDED LIMIT 4.0 - 6.0 ACTION SUGGESTED Estimated Average Glucose 111 Performing Lab: see note ML - [facility] LB PREG QUANT HCG Reviewed date:11/15/2024 07:10:23 PM Interpretation: Performing Lab: Notes/Report: [facility] , HCG Quantitative 990 500-10,000 3-4 WEEKS 50-500 1-2 WEEKS 1,000-50,000 4-5 WEEKS 10,000-100,000 5-6 WEEKS 5-50 0.2-1 WEEK 15,000-200,000 6-8 WEEKS 10,000-100,000 2-3 MONTHS 100-5,000 2-3 WEEKS Performing Lab: see note ML - [facility] LB PROF 14(COMP METB) Reviewed date:11/15/2024 07:10:23 PM Interpretation: Performing Lab: Notes/Report: [facility] , Sodium 138 136-145 mmol/L Potassium [...] 1.2 Performing Lab: see note ML - [facility] LB UA (CLEAN or CATCH) INSTALLER APPRENTICE or M ICRO IF IND. Reviewed date:11/15/2024 07:10:23 PM Interpretation: Performing Lab: Notes/Report: [facility] , Color Urine LT. YELLOW YELLOW Clarity Urine CLEAR CLEAR Specific [place] Urine <=1.005 1.005-1.025 pH Urine 6.0 5.0-9.0 Protein Urine NEGATIVE NEG/TRACE mg/dL Glucose Urine UA NEGATIVE NEGATIVE mg/dL Bilirubin Urine NEGATIVE NEGATIVE Ketones Urine NEGATIVE NEGATIVE mg/dL Blood Urine NEGATIVE NEGATIVE Nitrite Urine NEGATIVE NEGATIVE Urobilinogen Urine 0.2 0.2-1.0 EU/dL Leukocyte Esterase Urine TRACE NEGATIVE Urine Microscopic Indicated YES Performing Lab: see note ML - [facility] LB URINE MICROSCOPIC ONLY Reviewed date:11/15/2024 07:10:23 PM Interpretation: Performing Lab: Notes/Report: [facility] , WBC Urine 2-5 NONE SEEN #/HPF RBC Urine 0-2 0-2 #/HPF Bacteria Urine TRACE NONE SEEN #/HPF Mucus Urine NONE SEEN NONE SEEN Squamous Epithelial Cell Urine FEW NONE/RARE #/LPF Crystals Seen? None Seen None Seen #/HPF Cast Seen? NONE SEEN NONE SEEN #/LPF Urine Culture Indicated NO Performing Lab: see note ML - [facility] LB WET PREP Reviewed date:11/15/2024 07:10:23 PM Interpretation: Performing Lab: Notes/Report: [facility] , Wet Prep Tric BV Catrina See Below For Report WP.BACT Bacteria^Bacteria Wet Prep Tric BV Catrina Wet Prep Tric BV Catrina MO Moderate^Moderate WP.BACT Bacteria^Bacteria Wet Prep Tric BV Catrina Wet Prep Tric BV Catrina WP.CLUE Clue Cells^Clue Cells WP.BACT Bacteria^Bacteria Wet Prep Tric BV [...] Catrina Wet Prep Tric BV Catrina WP.TRICH Trichomonas^Trichomon as WP.BACT Bacteria^Bacteria Wet Prep Tric BV Catrina Wet Prep Tric BV Catrina N None Seen^None Seen WP.BACT Bacteria^Bacteria Wet Prep Tric BV Catrina Wet Prep Tric BV Catrina WP.WBC WBC^WBC WP.BACT Bacteria^Bacteria Wet Prep Tric BV Catrina Wet Prep Tric BV Catrina F Few^Few WP.BACT Bacteria^Bacteria Wet Prep Tric BV Catrina Performing Lab: see note ML - [facility] US OB transvaginal Reviewed date:11/15/2024 07:10:23 PM Interpretation: Performing Lab: Notes/Report: Source Facility: [place] [address] [place] [address] Ultrasound Report Signed Patient: SHEYLA LEA MR#: [id number] : 2005 Acct:[id number] Age/Sex: 19 / F ADM Date: 11/15/24 Loc: ER Attending Dr: Ordering Physician: Chelsey King Date of Service: 11/15/24 Procedure(s): US OB transvaginal Accession Number(s): [id number] cc: Chelsey King; Hector Dai M.D. [facility] [address] Patient Name: SHEYLA LEA MRN: [id number] date: 2005 Sex: F Assigned Patient Location: ED.MAIN Current Patient Location: ED.MAIN Accession/Order Number: [id number] Exam Date: 11/15/2024 13:29 Report Date: 11/15/2024 [...] Jr., D.O. 11/15/2024 1:31 PM Dictation Location: [place] [address] Electronically authenticated by: [id number] Y Date: 11/15/2024 13:31 Dictated By: Nathen Chavez M.D. Signed By: 11/15/24 1334 DD/ 1331 TD/TT: Law Clerk: RUBELLA AB IGG Reviewed date:12/17/2024 07:59:11 PM Interpretation: Performing Lab: Notes/Report: [facility] , Rubella Antibodies, IgG 4.26 Immune > 0.99 index Immune >0.99 Card Filer: Sukhjinder Wong PhD, Phone: [phone] Equivocal 0.90 - 0.99 Non-immune <0.90 [address] [place], [place] [id number] [facility]formed at: [facility] Performing Lab: see note - [facility] LB HIV Ab/p24 Ag with Reflex Reviewed date:12/17/2024 07:59:11 PM Interpretation: Performing Lab: Notes/Report: [facility] , HIV Ab/p24 Ag Screen Non Reactive Non Reactive Performed at: [facility] detected. There is no laboratory evidence of HIV infection. HIV-1/HIV-2 antibodies and HIV-1 p24 antigen were NOT Card Filer: Sukhjinder Wong PhD, Phone: [phone] [address] [place] [phone] HIV Negative Performing Lab: see note - [facility] Rapid Plasma Reagin, Quant Reviewed date:12/17/2024 07:59:11 PM Interpretation: Performing Lab: Notes/Report: [facility] , Rapid Plasma Reagin, Quant Non Reactive NonRea<1:1 titer Card Filer: Sukhjinder Wong PhD, Phone: [phone] Treponema pallidum (Syphilis) Screening [place] ([id number]) or infection, a reflex cascade that includes both RPR and a Please Note: This test does not meet current guidelines for treated for syphilis infection. To screen for syphilis Performed at: [facility] ([id number]). intended for following treatment response in patients being treponema-specific assay should be utilized, such as screening and diagnosis of syphilis. This test is Rapid Plasma Reagin (RPR) Test With Reflex to Quantitative RPR and Confirmatory Treponema pallidum Antibodies [address] [place] [phone] Performing Lab: see note - [facility] LB HCV Antibody RFX to Quant PC R Reviewed date:12/17/2024 07:59:11 PM Interpretation: Performing Lab: Notes/Report: [facility] , HCV Ab Non Reactive Non Reactive Interpretation: Comment . individual), or other evidence exists to indicate HCV suspected (which may be delayed in an immunocompromised Not infected with HCV unless early or acute infection is infection. Performing Lab: see note - [facility] HBsAg Screen Reviewed date:12/17/2024 07:59:11 PM Interpretation: Performing Lab: Notes/Report: [facility] , HBsAg Screen Negative Negative Performed at: [address] [id number] Card Filer: Sukhjinder Wong PhD, Phone: [phone] Performing Lab: see note - [facility] Urine Culture, Routine Reviewed date:12/18/2024 08:34:56 AM Interpretation: Performing Lab: Notes/Report: [facility] , Urine Culture, Routine See Below For Report Urine Culture, Routine Urine Culture, Routine Mixed urogenital mar Urine Culture, Routine Urine Culture, Routine 50,000-100,000 co lony forming units per mL Urine Culture, Routine Urine Culture, Routine Performed at: [facility] Urine Culture, Routine Urine Culture, Routine [address] [place], [place] [phone] Urine Culture, Routine Urine Culture, Routine Card Filer: Dread Wong PhD, Phone: [phone] Urine Culture, Routine Performing Lab: see note LC - [facility] LB SEE REPORT - Tank Farm Operator Id information not found for OBX-specific producer arborist manager legend CBC AUTO DIFF Reviewed date:12/18/2024 01:02:30 PM Interpretation: Performing Lab: Notes/Report: [facility] , White Blood Count 4.8 4.0-11.0 10 3/uL Red Blood Count 4.71 4.20-5.40 10 6/uL Hemoglobin 13.7 12.0-16.0 g/dL Hematocrit 39.8 36.0-48.0 % Mean Corpuscular Volume 84.5 81.0-99.0 fL Mean Corpuscular Hemoglobin 29.1 26.7-34.0 pg Mean Corpuscular HGB Conc 34.4 29.9-35.2 g/dL Red Cell Distribution Width 13.2 11.0-15.0 % Platelet Count 226 150-450 10 3/uL Mean Platelet Volume 11.1 9.5-13.5 fL Neutrophils Percent Auto 59.3 43.0-75.0 % Lymphocytes Percent Auto 30.6 20.5-60.0 % Monocytes Percent Auto 6.0 1.7-12.0 % Eosinophils Percent Auto 2.9 0.9-7.0 % Basophils Percent Auto 0.8 0.2-2.0 % Immature Granulocytes Pct Auto 0.4 0.0-0.5 % Neutrophils Absolute Auto 2.9 1.4-6.5 10 3/uL Lymphocytes Absolute Auto 1.5 1.2-3.8 10 3/uL Monocytes Absolute Auto 0.3 0.3-0.8 10 3/uL Eosinophils Absolute Auto 0.1 0.0-0.7 10 3/uL Basophils Absolute Auto 0.0 0.0-0.1 10 3/uL Immature Granulocytes Abs Auto 0.02 0.00-0.03 10 3/uL Performing Lab: see note ML - [facility] FREE T4 Reviewed date:12/18/2024 01:11:28 PM Interpretation: Performing Lab: Notes/Report: [facility] , Free T4 0.81 0.76-1.46 ng/dL Performing Lab: see note ML - [facility] MAGNESIUM Reviewed date:12/18/2024 01:02:30 PM Interpretation: Performing Lab: Notes/Report: [facility] , Magnesium 1.8 1.8-2.4 mg/dL Performing Lab: see note - [facility] PROF 14(COMP METB) Reviewed date:12/18/2024 01:02:30 PM Interpretation: Performing Lab: Notes/Report: [facility] , Sodium 135 136-145 mmol/L Potassium 3.5 3.5-5.1 mmol/L Chloride 101 98-107 mmol/L Carbon Dioxide 24.3 21.0-32.0 mmol/L Anion Gap 13.2 Glucose 85 74-106 mg/dL Blood Urea Nitrogen 5.0 7.0-18.0 mg/dL Creatinine 0.53 0.55-1.02 mg/dL Estimated GFR ( Magda >60 >=60 mL/min/1.73m 2 Estimated GFR (Non- Kanchan >60 >=60 mL/min/1.73m 2 BUN Creatinine Ratio 9.4 Calcium 9.1 8.5-10.1 mg/dL Bilirubin Total 0.5 0.2-1.0 mg/dL Aspartate Amino Transferase 15 15-37 U/L Alanine Aminotransferase 23 14-59 U/L Alkaline Phosphatase 49 46-116 U/L Total Protein 7.2 6.4-8.2 g/dL Albumin Level 3.7 3.4-5.0 g/dL Globulin 3.5 Albumin Globulin Ratio 1.1 Performing Lab: see note ML - [facility] TSH W/ REFLEX FT4 Reviewed date:12/18/2024 01:02:30 PM Interpretation: Performing Lab: Notes/Report: [facility] , TSH W/ REFLEX FT4 66.281 0.358-3.740 uIU/mL Performing Lab: see note ML - [facility] UA Micro, reflex to culture Reviewed date:12/18/2024 01:02:30 PM Interpretation: Performing Lab: Notes/Report: [facility] , Color Urine LT. YELLOW YELLOW Clarity Urine CLEAR CLEAR Specific [place] Urine <=1.005 1.005-1.025 pH Urine 7.0 5.0-9.0 Protein Urine NEGATIVE NEG/TRACE mg/dL Glucose Urine UA NEGATIVE NEGATIVE mg/dL Bilirubin Urine NEGATIVE NEGATIVE Ketones Urine NEGATIVE NEGATIVE mg/dL Blood Urine NEGATIVE NEGATIVE Nitrite Urine NEGATIVE NEGATIVE Urobilinogen Urine 0.2 0.2-1.0 EU/dL Leukocyte Esterase Urine SMALL NEGATIVE WBC Urine 2-5 NONE SEEN #/HPF RBC Urine 0-2 0-2 #/HPF Bacteria Urine SMALL NONE SEEN #/HPF Mucus Urine NONE SEEN NONE SEEN Squamous Epithelial Cell Urine FEW NONE/RARE #/LPF Crystals Seen? None Seen None Seen #/HPF Cast Seen? NONE SEEN NONE SEEN #/LPF Urine Culture Indicated YES-[facility] Performing Lab: see note ML - [facility] Urine Culture - [facility] Reviewed date:12/24/2024 07:47:31 PM Interpretation: Performing Lab: Notes/Report: [facility] Urine Culture - [facility] See Below For Report 50,000 colonies/ml mixed Urine Culture - [facility] Urine Culture - [facility] bacterial skin contaminants 50,000 colonies/ml mixed Urine Culture - [facility] Urine Culture - FR 2 Days 50,000 colonies/ml mixed Urine Culture - [facility] Urine Culture - FR 50,000 colonies/ml mixed Urine Culture - [facility] Urine Culture - FR Testing performed a [facility] 50,000 colonies/ml mixed Urine Culture - [facility] Urine Culture - FR [address] [place] [address] 50,000 colonies/ml mixed Urine Culture - [facility] Performing Lab: see note ML - [facility] FREE T3 Reviewed date:12/27/2024 12:40:59 PM Interpretation: Performing Lab: Notes/Report: [facility] , Free T3 1.93 2.18-3.98 pg/mL Performing Lab: see note ML - [facility] LB T4 Reviewed date:12/27/2024 12:40:59 PM Interpretation: Performing Lab: Notes/Report: [facility] , T4 Thyroxine 9.50 4.80-13.90 ug/dL Performing Lab: see note ML - [facility] LB TSH Reviewed date:12/27/2024 12:40:59 PM Interpretation: Performing Lab: Notes/Report: [facility] , Thyroid Stimulating Hormone 42.135 0.358-3.740 uIU/mL Performing Lab: see note ML - [facility] LB Artemus Box Reviewed date:12/17/2024 07:59:11 PM Interpretation: Performing Lab: Notes/Report: [facility] , BOX Test Sent Out UNITY BOX Test Reference Lab UNITY BOX Test Date Sent 01/03/2025 Performing Lab: see note ML - [facility] LB Type and Screen Reviewed date:12/17/2024 07:59:11 PM Interpretation: Performing Lab: Notes/Report: [facility] , Blood Type A Positive Antibody Screen NEGATIVE TSH Reviewed date:12/17/2024 07:59:11 PM Interpretation: Performing Lab: Notes/Report: [facility] , Thyroid Stimulating Hormone 50.067 0.358-3.740 uIU/mL Performing Lab: see note ML - [facility] LB GLYCOHEMOGLOBIN A1C Reviewed date:12/17/2024 07:59:11 PM Interpretation: Performing Lab: Notes/Report: [facility] , Glycohemoglobin A1C 4.9 4.5-6.2 % ACTION SUGGESTED ADA THERAPEUTIC TARGET < 7.0 > 7.0 ADA RECOMMENDED LIMIT 4.0 - 6.0 Estimated Average Glucose 94 Performing Lab: see note ML - [facility] LB DRUG SCREEN RAPID (URINE) Reviewed date:12/17/2024 07:59:11 PM Interpretation: Performing Lab: Notes/Report: [facility] , Cannabinoid Screen Urine NEGATIVE NEGATIVE Phencyclidine Screen Urine NEGATIVE NEGATIVE Cocaine Screen Urine NEGATIVE NEGATIVE Methamphetamines Screen Urine NEGATIVE NEGATIVE Opiate Screen Urine NEGATIVE NEGATIVE Amphetamine Screen Urine NEGATIVE NEGATIVE Benzodiazepines Screen Urine NEGATIVE NEGATIVE Tricyclic Antidepressant Urine NEGATIVE NEGATIVE Methadone Screen Urine NEGATIVE NEGATIVE Barbiturates Screen Urine NEGATIVE NEGATIVE Oxycodone Screen Urine NEGATIVE NEGATIVE Buprenorphine Screen Urine NEGATIVE NEGATIVE OPI (Opiates): 100 ng/mL MTD (Methadone): 200 ng/mL TCA (Trycyclic Antidepressants): 300 ng/mL BZO (Benzodiazepines): 150 ng/mL PCP (Phencyclidine): 25 ng/mL DRUG CLASS TEST SYSTEM CUT-OFF CONCENTRATIONS ARE FOLLOWS: LILIA (Cocaine): 150 ng/mL THC (Cannabinoids): 50 ng/mL AMP (Amphetamine): 500 ng/mL BAR (Barbiturates): 200 ng/mL BUP (Buprenorphine): 10 ng/mL mAMP (Methamphetamine): 500 ng/mL OXY (Oxycodone): 100 ng/mL Performing Lab: see note ML - [facility] LB CBC AUTO DIFF Reviewed date:12/17/2024 07:59:11 PM Interpretation: Performing Lab: Notes/Report: [facility] , White Blood Count 6.3 4.0-11.0 10 [...] 3/uL Performing Lab: see note ML - [facility] LB Chlamydia/GC Amplification Reviewed date:11/17/2024 04:29:05 PM Interpretation: Performing Lab: Notes/Report: vaginal [facility] , Chlamydia trachomatis, SWAPNA Negative Negative Neisseria gonorrhoeae, SWAPNA Negative Negative [address] [place] [id number] Performed at: =[facility] Card Filer: Margret Patel MD, Phone: [phone] Performing Lab: see note LC - [facility] LB CBC AUTO DIFF Reviewed date:11/15/2024 07:10:23 PM Interpretation: Performing Lab: Notes/Report: [facility] , White Blood Count 5.4 4.0-11.0 [...] 3/uL Performing Lab: see note ML - [facility] LB TSH Reviewed date:11/13/2024 09:12:54 PM Interpretation: Performing Lab: Notes/Report: [facility] , Thyroid Stimulating Hormone 12.103 0.358-3.740 uIU/mL Performing Lab: see note ML - [facility] LB PREG QUANT HCG Reviewed date:11/13/2024 09:12:54 PM Interpretation: Performing Lab: Notes/Report: [facility] , HCG Quantitative 481 5-50 0.2-1 WEEK 100-5,000 2-3 WEEKS 10,000-100,000 2-3 MONTHS 10,000-100,000 5-6 WEEKS 500-10,000 3-4 WEEKS 15,000-200,000 6-8 WEEKS 50-500 1-2 WEEKS 1,000-50,000 4-5 WEEKS Performing Lab: see note ML - [facility] LB TSH Reviewed date:07/04/2024 08:39:44 PM Interpretation: Performing Lab: Notes/Report: [facility] , Thyroid Stimulating Hormone 1.491 0.358-3.740 uIU/mL Performing Lab: see note ML - [facility] LB T4 Reviewed date:07/04/2024 08:39:44 PM Interpretation: Performing Lab: Notes/Report: [facility] , T4 Thyroxine 9.40 4.80-13.90 ug/dL Performing Lab: see note ML - [facility] PROF 14(COMP METB) Reviewed date:07/04/2024 08:39:44 PM Interpretation: Performing Lab: Notes/Report: [facility] , Sodium 139 136-145 mmol/L Potassium [...] 1.1 Performing Lab: see note ML - [facility] LB FREE T3 Reviewed date:07/04/2024 08:39:44 PM Interpretation: Performing Lab: Notes/Report: [facility] , Free T3 3.75 2.18-3.98 pg/mL Performing Lab: see note ML - [facility] LB Reason For Referral Reason hypothyriod Diagnosis 1 Well adult (Z00.00) Diagnosis 2 Hypothyroid (E03.9) Referral Organization [facility] Referring Provider First Name Blair Referring Provider Last Name Suhas Referring Provider Speciality Family [facility] anatoliy Referred Provider Loretta Winkler Referred Provider Specialty Endocrinolog y Referral Priority Routine Medications Medication SIG (Take, Route, Frequency, Duration) Notes Start Date End Date Status Magnesium Oxide 400 MG 1 tablet with aguila d Orally Once a day 12/27/2024 Active Pantoprazole Sodium 40 MG TAKE 1 TABLET (20 MG TOTAL) BY MOUTH IN THE MORNING Oral; Duration: 90 days Active buPROPion HCl ER (SR) 150 MG TAKE 1 TABL ET BY MOUTH EVERY DAY Oral; Duration: 90 Days Active Levothyroxine Sodium 75 MCG 1 tablet in the morning on an empty stomach Orally Once a day 12/27/2024 Active Levothyroxine Sodium 200 MCG 1 tablet in the morning on an empty stomach Oral Once a day; Duration: 30 days Active busPIRone HCl 5 MG 1 tablet Orally Twic e a day 12/27/2024 Active Zofran PUMP Active Liothyronine Sodium 5 MCG 2 tablet on an empty stomach Orally Once a day 12/27/2024 Active Social History Tobacco Use: Social History [...] Status W/U Status Risk Notes Problem Hypothyroid (23402474) Hypothyroid (E03.9) Active confirmed Problem Acid reflux (087820828) Acid reflux (K21.9) Active confirmed Problem Gastroesophageal reflux disease (927075358) GERD without esophagitis (K21.9) Active confirmed Problem Well adult (131115723) Well adult (Z00.00) Active confirmed Problem Polycystic ovary syndrome (disorder) (882317854) PCOS (polycystic ovarian syndrome) (E28.2) Active confirmed Problem Irritable bowel (60154422) Irritable bowel (K58.9) Active confirmed Vital Signs Blood pressure diastolic 66 mm Hg 12/27/2024 BMI Percentile 97.98 % 07/05/2024 Height 63 in 12/27/2024 Blood pressure systolic 112 mm Hg 12/27/2024 Weight 231.6 lbs 12/27/2024 BMI 41.02 kg/m2 12/27/2024 Encounters Encounter Location Date Provider Diagnosis [facility] [address] [place] [address] 04/17/2024 [facility] [address] [place] [address] 05/22/2024 [facility] [address] [place] [address] 06/26/2024 [facility] [address] [place] [address] 10/10/2024 [facility] [address] [place] [address] 11/20/2024 [facility] [address] [place] [address] 12/28/2024 [facility] [address] [place] [address] 01/15/2025 [facility] [address] [place] [address] 02/15/2025 [facility] [address] [place] [address] 04/07/2024 Blair arya Well adult Z00.00 an d Hypothyroid E03.9 [facility] [address] [place] [address] 07/05/2024 Blair Dai Irritable bowel K58. 9 and GERD without esophagitis K21.9 [facility] [address] [place] [address] 12/27/2024 Blair Dai Hypothyroid E03.9 an d GERD without esophagitis K21.9 [place] [address] [place] [address] 05/22/2024 Blair Dai PCOS (polycystic ovarian syndrome) E28.2 ; Hypothyroid E03.9 ; Well adult Z00.00 and Encounter for long-term (current) use of other medications Z79.899 [place] [address] [place] [address] 07/04/2024 Blair Dai [place] [place] [address] 11/13/2024 Blair Dai [place] [address] [place] [address] 11/15/2024 Blair Dai Positive t est Z32.[address] [address] 12/18/2024 Blair Dai [address] [address] 12/27/2024 Blair Dai Assessments Encounter Date Diagnosis (ICD Code) Assessment Notes Treatment Notes Treatment Clinical Notes Section Notes 04/07/2024 Well adult (ICD-10 - Z00.00) 04/07/2024 Hypothyroid (ICD-10 - E03.9) 07/05/2024 Irritable bowel (ICD-10 - K58.9) 07/05/2024 GERD without esophagitis (ICD-10 - K21.9) 12/27/2024 Hypothyroid (ICD-10 - E03.9) 12/27/2024 GERD without esophagitis (ICD-10 - K21.9) 05/22/2024 [...] GLYCOHEMOGLOBIN A1C 05/22/2024 THYROID PANEL (T4/TSH/FREE T3) THYROID PANEL (T4/TSH/FREE T3) 5 Insurance Providers Payer Name Payer Address Payer Phone Subscriber Number Group Number Insured Name Patient Relationship to Insured Coverage Start Date Coverage End Date CHANELL ZIMMERO NAL [address] [place] [address] [id number] SAMUELKRIS Child - Insured has Financial Responsibility ANTHCORINNE MONTIELITIO NAL [address] [place] [address] [phone] [id number] Sheyla Lea Self - patient is the insured [employer] [address] [place] [address] [id number] Sheyla Lea Self - patient is the insured 5 MEDICAID [place] 2ND INS [address] [place], [place] [id number] Sheyla Lea Self - patient is the insured 5 5 Medical (General) History Medical History History ICD Code PCOS (polycystic ovarian syndrome) E28.2 Acid reflux K21.9 Surgical History Surgery Date(Month/Year) Tonsillectomy EGD 02/07 diagnostic lap 01/07 Thyroidectomy 09/07
--- OUTSIDE RECORDS SUMMARY | 2025-02-28 15:23 | XMS_ITS | Encounter Summary ---
Author Organization [employer] Address [facility]-[id number] [address] [place] [address] Care Team Providers Care Gas Tester Name Role Phone Hector Dai MD Primary Care Provider [phone] Encounter Details Date Type Department Care Team (Late st Contact Info) Description 03/[facility]2024 [facility] [address] [place] [address] Angel, Barbara, SEC REPORTING CONSULTANT Social History Tobacco Use Types Packs/Day Years [...] know if you can send orders to [facility] or can we draw her thyroid [...] EDT Office Visit Maternal- Medicine at [facility] [address] [place] [address] Fatou Harper MD [address], [address] [place] [address] 03/13/2025 1:00 PM EDT Appointment [facility] - Ultrasound [address] [place] [address] documented as of this encounter Visit Diagnoses Not on filedocumented in this encounter Additional Health Concerns Assessment Noted Time PHQ-9 Depression Total Score: 0 11/23/19 24 4:08 PM EDT documented as of this encounter Care Teams Gas Tester Relationship Specialty Start Date End Date Hector Dai MD [address] [place] [address] PCP - General Family Medicine 10/12/24 documented as of this encounter
--- OUTSIDE RECORDS SUMMARY | 2025-02-28 15:23 | XMS_ITS | Encounter Summary ---
Author Organization [employer] Address [facility]-[id number] [address] [place] [address] Care Team Providers Care Cook Chef Name Role Phone Hector Dai MD Primary Care Provider [phone] Encounter Details Date Type Department Care Team (Late st Contact Info) Description 02/04/2024 Telephone [facility] - Family Medicine [address] [place] [address] Susy Lee CMA Social History [...] AM EDT Office Visit Maternal- Medicine at [facility] [address] [place] [phone] Fatou Harper MD [address], [address] [place] [address] 03/13/2025 1:00 PM EDT Appointment [facility] - Ultrasound [address] [place] [address] documented as of this encounter Visit Diagnoses Not on filedocumented in this encounter Additional Health Concerns Assessment Noted Time PHQ-9 Depression Total Score: 0 11/23/19 4:08 PM EDT documented as of this encounter Care Teams Cook Chef Relationship Specialty Start Date End Date Hector Dai MD [address] [place] [address] PCP - General Family Medicine 10/12/24 documented as of this encounter
--- OUTSIDE RECORDS SUMMARY | 2025-02-28 15:23 | XMS_ITS | Encounter Summary ---
Author Organization [facility] Address [address] [place] [address] Care Team Providers Care Shaker Flatwork Name Role Phone Anita Sherwood SUMA Primary Care Provider Source Comments In the event this information is protected by the Federal Confidentiality of Alcohol and Drug AbusePatient Records regulations: The Federal rules restrict any use of the information to criminally investigate or prosecute any alcohol or drug abuse patient.[facility] Encounter Details Date Type Department Care Team (Late st Contact Info) Description 08/31/2023 Patient Msg Endocrinology [phone] [phone] Yesi Pizano MD [address] [place] [address] Results Social History Tobacco Use Types Packs/Day [...] is lower risk 9 01/07/2023 Data from: https://www.neighborhoodatlas.medicine.[facility].edu/. Last address used for calculation [...] on filedocumented in this encounter Care Teams Shaker Flatwork Relationship Specialty Start Date End Date Anita Sherwood NP [address] [place] [phone] PCP - General Family Medicine 08/17/23 documented as of this encounter
--- OUTSIDE RECORDS SUMMARY | 2025-02-28 15:23 | XMS_ITS | Encounter Summary ---
Author Organization [employer] Address [id number] [address] 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 CLERK Social History Tobacco Use Types Packs/Day Years [...] AM EDT Office Visit Maternal- Medicine at [facility] [address] [place] [phone] Fatou Harper MD [address] [facility], [address] [place] [address] 03/13/2025 1:00 PM EDT Appointment [facility] - [facility]ound [address] [place] [phone] documented as of this encounter Visit Diagnoses Not on filedocumented in this encounter Additional Health Concerns Assessment Noted Time PHQ-9 Depression Total Score: 0 11/23/19 24 4:08 PM EDT documented as of this encounter Care Teams Sba Underwriter Relationship Specialty Start Date End Date Hector Dai MD [address] [place] [address] PCP - General Family Medicine 10/12/24 documented as of this encounter
--- OUTSIDE RECORDS SUMMARY | 2025-02-28 15:23 | XMS_ITS | Encounter Summary ---
Author Organization [facility] Address [address] [place] [address] Care Team Providers Care Dental Technologist Name Role Phone Hector Dai MD Primary Care Provider [phone] Encounter Details Date Type Department Care Team (Late st Contact Info) Description 01/17/2025 Abstract [facility] [address] [address] Mara Bain MA Social History Tobacco [...] 10:50 AM EST Routine [facility] [address] [place] [address] Gerardo Meredith DO [address] [place], [place] [phone] documented as of this encounter Goals Goal Patient Goal Type Associated Problems Recent Progress Patient-Stated? Author Reminders Care Plan OB Reminders No Open Scheduling, Background documented as of this encounter Visit Diagnoses Not on filedocumented in this encounter Additional Health Concerns Active Problems Noted Date Diagnosed Date OB Reminders 12/11/2024 documented as of this encounter Care Teams Dental Technologist Relationship Specialty Start Date End Date Hector Dai MD [address] [place] [phone] PCP - General Family Medicine 04/07/24 documented as of this encounter
[2025-02-28 16:07] LABS: Thyroid Stimulating Hormone 78.307 uIU/mL (0.358-3.740)
== END 2025-02-28 15:08 | disposition home or self-care (01) ==
PROVIDERS: PCP Family Medicine; Visit Provider Obstetrics & Gynecology
DX: E07.9 Disorder of thyroid, unspecified (principal); Z98.890 Other specified postprocedural states; Z90.89 Acquired absence of other organs
CPT/HCPCS: 36415; 84443

== ENCOUNTER 2025-02-28 15:16 | Outpatient (OUT) | payer BC, OTHER, SELFPAY ==
--- OUTSIDE RECORDS SUMMARY | 2025-02-28 15:24 | XMS_ITS | CCD ---
Author Organization [facility] Care Team Providers Care Geography Department Chair Name Role Phone Damian Jas Hewitt Primary Care Provider [phone] MANA AGUILAR Referring Unavailable JAS SALGADO Primary [...] DO, Aime E Primary Care Provider Catarina SYSTEMS ENGINEER, [employer]anner Primary Care Provider Catarina SYSTEMS ENGINEER, [employer]anner Primary Care Provider [phone] CATARINA, ANITA Primary Care Unavailable YESI PIZANO [...] Unavailable CATARINA, ANITA L Referring Unavailable CATARINA, AINTA L Primary Care Unavailable CATARINA, ANITA L Attending Unavailable CATARINA, ANITA L Referring Unavailable CATARINA, ANITA L Primary Care Unavailable CATARINA, ANITA L Attending Unavailable CATARINA, ANITA L Referring Unavailable CATARINA, ANITA L Primary Care Unavailable Regino Santoro MD Primary Care Provider [phone] 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, Anita L Primary Care Provider NIKI HOLLIS Admitting Unavailable NIKI HOLLIS Attending Unavailable CATARINA, ANITA L Primary Care Unavailable NIKI HOLLIS Attending Unavailable NIKI HOLLIS Referring Unavailable CATARINA, ANITA L Primary Care Unavailable REGINO SANTORO Primary Care Unavailable Regino Santoro MD Primary Care Provider Regino Santoro MD Primary Care Provider [phone] Gerardo Meredith Admitting Unavailable Gerardo Meredith Attending Unavailable NON STAFF Admitting Unavailable NON STAFF Attending Unavailable Brooke Conde Attending Unavailable Catarina, Anita Primary Care Unavailable Brooke Conde Admitting Unavailable Regino Santoro MD Primary Care Provider [phone] CATARINA, ANITA L Referring Unavailable CATARINA, ANITA [...] Propensity to adverse reactions to drug (disorder) [facility] Repository Medications Current Medications Medication [...] tablet Indications: Heartburn during in second trimester ([facility]) Chew 1 tablet (500 mg) Daily 30 [...] Discharge) Start: 02-05-2023 take 1 capsule by [facility] every twenty-four hours Vistaril 25 MG 1 [...] days. 10 capsule 0 09/09/2023 09/14/2023 nystatin [id number] unt/ml oral suspension (1 source) Polyene Antifungal [...] UA Negative Negative - 4(70) +++ mg/dL [facility] Blood, UA Negative Negative - 50 Joshua/mcL [facility] Clarity, UA Clear [facility] Color, UA Yellow [facility] Glucose, UA Negative Negative - 2000(110) ++++ mg/dL [facility] Interpretation and review of laboratory results Normal [facility] Ketones, UA Negative Negative - 160(16) ++++ mg/dL [facility] Leukocytes, UA Negative Negative - 500+++ Diego/mcL [facility] Nitrite, UA Negative Negative - Positive [facility] pH, UA 7.5 5 - 9 [facility] Protein, UA Negative Negative - 1999(20) ++++ mg/dL [facility] Spec Grav, UA 1.01 1 - 1.03 [facility] Urobilinogen, UA 1.0 0.2 - 12 mg/dL [facility] RECURRENT VAGINITIS (HTRX)on 01-03-2025 ATOPOBIUM VAGINAE 28.556 Abnormal [facility] ATOPOBIUM VAGINAE Detected Abnormal [facility] BVAB 2,3 (BACTERIAL VAGINOSIS ASSOCIATED BACTERIA 2, 3); MOBILUNCUS SPP 24.03 Abnormal [facility] BVAB 2,3 (BACTERIAL VAGINOSIS ASSOCIATED BACTERIA 2, 3); MOBILUNCUS SPP Detected Abnormal [facility] GENESIS ALBICANS, PARAPSILOSIS, TROPICALIS 0 [facility] GENESIS ALBICANS, PARAPSILOSIS, TROPICALIS Not detected [facility] GENESIS GLABRATA 0 [facility] GENESIS GLABRATA Not detected [facility] GENESIS KRUSEI 0 [facility] GENESIS KRUSEI Not detected [facility] CHLAMYDIA TRACHOMATIS 0 [facility] CHLAMYDIA TRACHOMATIS Not detected [facility] GARDNERELLA VAGINALIS 0 [facility] GARDNERELLA VAGINALIS Not detected [facility] Interpretation and review of laboratory results Abnormal [facility] MEGASPHAERA (TYPES 1, 2) 0 [facility] MEGASPHAERA (TYPES 1, 2) Not detected [facility] MYCOPLASMA GENITALIUM 0 [facility] MYCOPLASMA GENITALIUM Not detected [facility] NEISSERIA GONORRHOEAE 0 [facility] NEISSERIA GONORRHOEAE Not detected [facility] TRICHOMONAS VAGINALIS 0 [facility] TRICHOMONAS VAGINALIS Not detected [facility] Urinalysis macro (dipstick) panel (U)on 01-02-2025 Bilirubin, UA Negative Negative - 4(70) +++ mg/dL [facility] Blood, UA Negative Negative - 50 Joshua/mcL [facility] Clarity, UA Clear [facility] Color, UA Yellow [facility] Glucose, UA Negative Negative - 1999(110) ++++ mg/dL [facility] Interpretation and review of laboratory results Normal [facility] Ketones, UA Negative Negative - 160(16) ++++ mg/dL [facility] Leukocytes, UA Negative Negative - 500+++ Diego/mcL [facility] Nitrite, UA Negative Negative - Positive [facility] pH, UA 7.5 5 - 9 [facility] Protein, UA Negative Negative - 1999(20) ++++ mg/dL [facility] Spec Grav, UA 1.01 1 - 1.03 [facility] Urobilinogen, UA 1.0 0.2 - 12 mg/dL [facility] TSHon 12-27-2024 Thyroid Stimulating (3Rd Generation) Hormone/ Tsh 42.135 [facility] Urinalysis macro (dipstick) panel (U)on 12-19-2024 Bilirubin, UA Negative Negative - 4(70) +++ mg/dL [facility] Blood, UA Negative Negative - 50 Joshua/mcL [facility] Clarity, UA Clear [facility] Color, UA Yellow [facility] Glucose, UA Negative Negative - 1999(110) ++++ mg/dL [facility] Interpretation and review of laboratory results Abnormal [facility] Ketones, UA Negative Negative - 160(16) ++++ mg/dL [facility] Leukocytes, UA Positive Negative - 500+++ Diego/mcL [facility] Nitrite, UA Negative Negative - Positive [facility] pH, UA 5.5 5 - 9 [facility] Protein, UA Negative Negative - 1999(20) ++++ mg/dL [facility] Spec Grav, UA 1.015 1 - 1.03 [facility] Urobilinogen, UA 1.0 0.2 - 12 mg/dL [facility] T4, freeon 12-18-2024 T4 Free Free T4 0.81 [facility] Urine Cultureon 12-18-2024 Bacteria identified Cx Nom (U) 50,000 colonies/ml mixed bacterial skin contaminants 2 Days PERFORMED BY: [facility] [address] [place] [address] PATHOLOGIST ENGINEERING TECHNICAL WRITER BRIA LOUIS M.D. Normal [facility] Comment on above: Performed By: #### C UU #### [facility] [address] BOX TESTon 12-16-2024 BOX TEST SENT OUT [facility] [address] [facility] [address] 01/03/2025 [facility] CBC without diffOrdered By: Ting Forte on 12-16-2024 Hematocrit (Bld) [Volume fraction] 39.7 % [facility] Hemoglobin (Bld) [Mass/Vol] 13.4 g/dL [facility] Rbc Mcv (Fl) By Automated Count 84.8 [facility] Drug Screen, Urineon 025 Amphetamine/Metham phetamine Negative [facility] Barbiturates Negative [facility] Benzodiazepines Negative [facility] Cocaine Metabolite Negative [facility] Ecstasy Negative [facility] Methadone Negative [facility] Opiates Negative [facility] Oxycodone Negative [facility] Phencyclidine Negative [facility] Thc Marijuana, Urine Negative [facility] HBV surface Ag IA Qlon 12-16 Hepatitis B Surface Antigen Negative [facility] HIV 1+2 Ab+HIV1 p24 Ag IA Ql on 12-16-2024 HIV 1&2 AB/AG Non-Reactive [facility] Hemoglobin A1con 12-16-2024 HbA1c (Bld) [Mass fraction] 4.9 % 4.0 - 6.0 % [facility] No Panel Informationon 12-16 [facility] Rubella IGG immune statuson 12-16-2024 Rubella immune IgG 4.26 [facility] TSHon 12-16-2024 Thyroid Stimulating (3Rd Generation) Hormone/ Tsh 50.067 [facility] Type and screenon 12-16-2024 Abo/Rh(D) Positive [facility] HCG ( test) Ql (U)o n 12-07-2024 Interpretation and review of laboratory results Abnormal [facility] Preg Test, Ur Positive Negative [facility] Urinalysis macro (dipstick) panel (U)on 12-07-2024 Bilirubin, UA Negative Negative - 4(70) +++ mg/dL [facility] Blood, UA Negative Negative - 50 Joshua/mcL [facility] Clarity, UA Clear [facility] Color, UA Yellow [facility] Glucose, UA Negative Negative - 2000(110) ++++ mg/dL [facility] Interpretation and review of laboratory results Normal [facility] Ketones, UA Negative Negative - 160(16) ++++ mg/dL [facility] Leukocytes, UA Negative Negative - 500+++ Diego/mcL [facility] Nitrite, UA Negative Negative - Positive [facility] pH, UA 6.5 5 - 9 [facility] Protein, UA Negative Negative - 2000(20) ++++ mg/dL [facility] Spec Grav, UA 1.025 1 - 1.03 [facility] Urobilinogen, UA 1.0 0.2 - 12 mg/dL [facility] US OB TRANSVAGINALon 025 US OB TRANSVAGINAL [...] Interpretation and review of laboratory results Abnormal [facility] Preg Test, Ur Positive Negative [facility] Urinalysis macro (dipstick) panel (U)on 11-22-2024 Bilirubin, UA Negative Negative - 4(70) +++ mg/dL [facility] Blood, UA Negative Negative - 50 Joshua/mcL [facility] Clarity, UA Clear [facility] Color, UA Yellow [facility] Glucose, UA Negative Negative - 1999(110) ++++ mg/dL [facility] Interpretation and review of laboratory results Normal [facility] Ketones, UA Negative Negative - 160(16) ++++ mg/dL [facility] Leukocytes, UA Negative Negative - 500+++ Diego/mcL [facility] Nitrite, UA Negative Negative - Positive [facility] pH, UA 6 5 - 9 [facility] Protein, UA Negative Negative - 1999(20) ++++ mg/dL [facility] Spec Grav, UA 1.01 1 - 1.03 [facility] Urobilinogen, UA 1.0 0.2 - 12 mg/dL [facility] PREG QUANT HCGon 025 HCG QUANTITATIVE 4630 mIU/mL [facility] Comment on above: 5-50 0.2-1 WEEK 50-500 1-2 WEEKS 100-5,000 2-3 WEEKS 500-10,000 3-4 WEEKS 1,000-50,000 4-5 WEEKS 10,000-100,000 5-6 WEEKS 15,000-200,000 6-8 WEEKS 10,000-100,000 2-[facility] STIM HORMONEon 0 11-13-2024 Interpretation and review of laboratory results Abnormal [facility] TSH Qn 12.103 m[IU]/L High [facility] No Panel Informationon 11-13 [facility] H[facility]on 11-13- 025 HCG QUANTITATIVE 481 mIU/mL [facility] Comment on above: 5-50 0.2-1 WEEK 50-500 1-2 WEEKS 100-5,000 2-3 WEEKS 500-10,000 3-4 WEEKS 1,000-50,000 4-5 WEEKS 10,000-100,000 5-6 WEEKS 15,000-200,000 6-8 WEEKS 10,000-100,000 2-3 MONTHS FREE T4on 03-31-2024 Free T4 [Mass/Vol] 0.93 ng/dL Normal 0.61-1.60 [facility] Comment on above: Performed By: #### 3 024-7 #### [facility] ([id number]) [address], [address] [place] [address] TSHon 03-31-2024 TSH Qn 11.47 m[IU]/L High [facility] TSH Qnon 03-31-2024 Interpretation and review of laboratory results Abnormal [facility] TSH 11.47 uIU/mL High 0.49-4.67 [facility] Comment on above: Performed By: #### 3 016-3 #### [facility] ([id number]) [address], [address] [place] [address] TB PREG QUANT HCGon 024 HCG QUANTITATIVE <1 mIU/mL [facility] Comment on above: 5-50 0.2-1 WEEK 50-500 1-2 WEEKS 100-5,000 2-3 WEEKS 500-10,000 3-4 WEEKS 1,000-50,000 4-5 WEEKS 10,000-100,000 5-6 WEEKS 15,000-200,000 6-8 WEEKS 10,000-100,000 2-3 MONTHS [facility] PREG QUANT HCGon 024 HCG QUANTITATIVE <1 mIU/mL [facility] Comment on above: 5-50 0.2-1 WEEK 50-500 1-2 WEEKS 100-5,000 2-3 WEEKS 500-10,000 3-4 WEEKS 1,000-50,000 4-5 WEEKS 10,000-100,000 5-6 WEEKS 15,000-200,000 6-8 WEEKS 10,000-100,000 2-3 MONTHS [facility] PREG QUANT HCGon 024 HCG QUANTITATIVE <1 mIU/mL [facility] Comment on above: 5-50 0.2-1 WEEK 50-500 1-2 WEEKS 100-5,000 2-3 WEEKS 500-10,000 3-4 WEEKS 1,000-50,000 4-5 WEEKS 10,000-100,000 5-6 WEEKS 15,000-200,000 6-8 WEEKS 10,000-100,000 2-[facility] P[facility] QUANT HCGon 024 HCG QUANTITATIVE <1 mIU/mL [facility] Comment on above: 5-50 0.2-1 WEEK 50-500 1-2 WEEKS 100-5,000 2-3 WEEKS 500-10,000 3-4 WEEKS 1,000-50,000 4-5 WEEKS 10,000-100,000 5-6 WEEKS 15,000-200,000 6-8 WEEKS 10,000-100,000 2-3 MONTHS [facility] HCG,Urineon 03-03-2024 Beta HCG ( test) Ql (U) Negative Normal [facility] Comment on above: Result Comment: PERF ORMED BY: [place] [address] PATHOLOGIST ENGINEERING TECHNICAL WRITER MAIK BARNES M.D. Performed By: #### U HCG #### [address] gastric emptying studyon 03-03-2024 [place] gastric emptying study [facility] [place] [address] Nuclear Medicine Report Signed Patient: Sheyla Lea I MR#: [id number] : 2005 Acct:[id number] Age/Sex: 18 / F ADM Date: 03/03/24 Loc: [place] Room: Type: [facility] Attending Dr: Brooke Conde DO Copies [...] Salinas Adams M.D.03/03/2024 1:04 PM Dictation Location: [place] [address] Transcribed By: [facility] 03/03/24 1304 Dictated By: Salinas Adams II, MD 03/03/24 1302 Signed By: 03/03/24 1304 Normal [facility] FREE T4on 02-18-2024 Free T4 [Mass/Vol] 1.48 ng/dL Normal 0.61-1.60 [facility] Comment on above: Performed By: #### 3 016-3, 3024-7 #### [facility] ([id number]) [address], [address] [place] [address] Free T4 [Mass/Vol]on 024 [facility] T4, freeon 02-18-2024 Free T4 [Mass/Vol] 1.48 ng/dL 0.61 - 1. 60 ng/dL [facility] TSHon 02-18-2024 TSH Qn 0.01 m[IU]/L Low [facility] TSH Qnon 02-18-2024 Interpretation and review of laboratory results Abnormal [facility] TSH 0.01 uIU/mL Low 0.49-4.67 [facility] Comment on above: Performed By: #### 3 016-3, 3024-7 #### [facility] ([id number]) [address], [address] [place] [address] HCG ( test) Ql (U)o n 02-04-2024 Beta HCG ( test) Ql (U) Negative Normal NEG [facility] Comment on above: Performed By: #### 2 106-3 #### [facility] ([id number]) [address] [place] [address] Surgical Pathologyon 024 Surgical Pathology Normal [facility] Comment on above: Result Comment: [facility] [address] [place] [address] Surgical Pathology Consultation Patient Name:SHEYLA LEA I.:2005 (Age: 18)Gender:FTaken:4Reported:02/08/2024hysician(s):Niki Hollis MD ([phone])Copy To: Rec. #:[id number]: #[id number] Final Pathologic Diagnosis 1. Duodenum, biopsy: Duodenal mucosa with no significant diagnostic abnormality. No evidence of celiac disease. 2. Stomach, antrum, biopsy: Gastric mucosa with mild reactive changes. No histological evidence of H. pylori infection on routine stain. 3. Distal esophagus, biopsy: Mildly reactive junctional mucosa without intestinal metaplasia. Report Electronically Signed Out 02/08/2024khai Cates MD Interpretation performed at [facility], [address] [place] [address], License number: [id number]. Clinical History Dysphagia. Gross Description 1. Received in formalin labeled, HOFACKER, duodenum are 8 pale-buckley delicate soft tissue fragments, 0.1-0.4 cm in greatest dimension. The specimens are submitted in single cassette. (1, ns, [id number], m8) TB 2. Received in formalin labeled, HOFACKER, antrum are 4 pale-buckley delicate soft tissue fragments, 0.1-0.3 cm in greatest dimension. The specimens are filtered and submitted a single cassette. (1, ns, [id number], m8) TB 3. Received in formalin labeled, HOFACKER, distal esophagus are 3 buckley delicate soft tissue fragments, 0.2-0.5 cm in greatest dimension. The specimens are filtered and submitted (1, ns, [id number], m8) TB tgb/4AO Specimen(s) Received 1: Duodenum biopsy 2: Antrum biopsy 3: Distal esophageal biopsy Fee Codes(s): 1; 85229 2; 10623 3; 07283 ALL CBC WITH AUTO DIFFon BASOPHILS ABSOLUTE AUTO 0.0 [facility] Basophils/100 WBC (Bld) 0.8 % 0.2 - 2.0 % [facility] Eosinophils/100 WBC (Bld) 1.7 % 0.9 - 7.0 % [facility] Erythrocyte distribution width (RBC) [Ratio] 13.2 % 11.0 - 15.0 % [facility] Hematocrit (Bld) [Volume fraction] 40.6 % 36.0 - 48.0 % [facility] Hemoglobin (Bld) [Mass/Vol] 13.6 g/dL 12.0 - 16.0 g/dL [facility] IMMATURE GRANULOCYTES ABS AUTO 0.01 [facility] Immature granulocytes/100 WBC (Bld) 0.2 % 0.0 - 0.5 % [facility] LYMPHOCYTES ABSOLUTE AUTO 1.9 [facility] Lymphocytes/100 WBC (Bld) 39.0 % 20.5 - 60.0 % [facility] MCH (RBC) [Entitic mass] 27.5 pg 26.7 - 34.0 pg [facility] MCHC (RBC) [Mass/Vol] 33.5 g/dL 29.9 - 35.2 g/dL [facility] MCV (RBC) [Entitic vol] 82.0 fL 81.0 - 99.0 fL [facility] MONOCYTES ABSOLUTE AUTO 0.5 [facility] Monocytes/100 WBC (Bld) 10.4 % 1.7 - 12.0 % [facility] NEUTROPHILS ABSOLUTE AUTO 2.3 [facility] Neutrophils/100 WBC (Bld) 47.9 % 43.0 - 75.0 % [facility] Platelet mean volume (Bld) [Entitic vol] 10.4 fL 9.5 - 13.5 fL [facility] EO # 0.1 [facility] PLT 223 [facility] TBH RBC 4.95 [facility]H WBC 4.8 [facility] Jose 01-14-2024 L Specimen: Re ceived: 01/18/24 Status: VERO Dodson Num: [id number] Spec Type: Cytology Subm Dr: Gerardo Meredith Tissues: A ASCITES (PELVIC FLUID) Procedures: HE/2, Gross/Micro L4, Cyto Prepstain, PAPSTN Age/ Patient Sex Location Account Attending Physician Sheyla Lea I 18/F LABELL [id number] Gerardo Meredith SPEC NUM: RECD: 01/18/24 STATUS: VERO DODSON NUM: [id number] JAREK: 01/14/[address]: Gerardo Meredith ENTERED: 01/18/[address]: Anoop,Lab SPEC TYPE: Cytology DEPT: [facility] ENTERED BY: [id number] RECV BY: [id number] ORDERED: HE/2, Gross/Micro L4, Cyto Prepstain, PAPSTN ORDERED: HE/2, Gross/Micro L4, Cyto Prepstain, PAPSTN Pathological Diagnosis Pelvic fluid cytology: Negative for malignant cells. Gross Description Received fresh is 10 ml yellow clear unfixed fluid for cytology said to have been obtained as pelvic fluid. ThinPrep and cell block preparations are prepared for microscopic examination. (MI/fl) CPT Codes 98463 Specimen: [id number] Received: 01/18/24-1218 Status: VERO Dodson Num: [id number] Spec Type: Cytology Subm Dr: Gerardo Meredith Tissues: A ASCITES (PELVIC FLUID) Procedures: HE/2, Gross/Micro L4, Cyto Prepstain, PAPSTN Patient: Sheyla Lea I [id number] (Continued) Signed (signature on file) Cleo Beckford MD 01/19/24 1433 Normal [facility] Chlamydia/GC by PCR urineon 10-29-2023 Chlamydia sp DNA SWAPNA+probe Ql (Unsp spec) Negative Negative^Ne [facility] Comment on above: Chlamydia trachomatis not detected by nucleic acid amplification. This does not exclude the possibility of infection because results are dependent on adequate specimen collection. N. gonorrhoeae DNA SWAPNA+probe Ql (Unsp spec) Negative Negative^Ne [facility] Comment on above: Neisseria gonorrhoeae not detected by nucleic acid amplification. This does not exclude the possibility of infection because results are dependent on adequate specimen collection. Specimen source Nom (Unsp spec) CLEAN CATCH MIDSTREAM URINE [facility] Comprehensive metabolic pane jose 10-29-2023 Albumin [Mass/Vol] 4.4 g/dL 3.2 - 5.3 g/dL [facility] ALP [Catalytic activity/Vol] 64 U/L 39 - 130 U/L [facility] ALT No additional P-5'-P [Catalytic activity/Vol] 18 U/L 0 - 31 U/L [facility] Anion gap [Moles/Vol] 10 mmol/L 5 - 15 mmol/L [facility] AST [Catalytic activity/Vol] 16 U/L 0 - 41 U/L [facility] Bilirubin [Mass/Vol] 0.4 mg/dL 0.3 - 1.2 mg/dL [facility] Calcium [Mass/Vol] 9.8 mg/dL 8.5 - 10. 5 mg/dL [facility] Chloride [Moles/Vol] 102 mmol/L 98 - 109 mmol/L [facility] CO2 [Moles/Vol] 25 mmol/L 22 - 32 mmol/L [facility] Creatinine [Mass/Vol] 0.65 mg/dL 0.40 - 1.00 mg/dL [facility] Comment on above: METHOD TRACEABLE TO [facility] STANDARD eGFR (CKD-EPI)non-race dependent - PINF [facility] Comment on above: Reported eGFR is based on the CKD-EPI 2020 equation that does not use a race coefficient. Glucose [Mass/Vol] 80 mg/dL 65 - 99 mg/dL [facility] Potassium [Moles/Vol] 4.1 mmol/L 3.5 - 5.0 mmol/L [facility] Protein [Mass/Vol] 7.3 g/dL 6.0 - 8.0 g/dL [facility] Sodium [Moles/Vol] 137 mmol/L 134 - 146 mmol/L [facility] Urea nitrogen [Mass/Vol] 12 mg/dL 5 - 23 mg/dL [facility] Free T4 [Mass/Vol]on 024 [facility] Lipid 1996 panelon 4 Cholesterol [Mass/Vol] 157 mg/dL 150 - 200 mg/dL [facility] Cholesterol in HDL [Mass/Vol] 56 mg/dL 39 - PINF mg/dL [facility] Comment on above: HDL <40 mg/dL - High Risk HDL > or = 40mg/dL- Desirable HDL >60 mg/dL - Negative Risk Cholesterol in LDL [Mass/Vol] 85 mg/dL NINF - 130 mg/dL [facility] Comment on above: LDL <100 mg/dL - Desirable LDL >160 mg/dL - High Risk Cholesterol in VLDL [Mass/Vol] 16 mg/dL 0 - 30 mg/dL [facility] Cholesterol.total/ Cholesterol in HDL [Mass ratio] 2.8 {ratio} 1.0 - 5.0 [facility] Triglyceride [Mass/Vol] 80 mg/dL 27 - 150 mg/dL [facility] No Panel Informationon 10-28 [facility] T4, freeon 10-29-2023 Free T4 [Mass/Vol] 0.73 ng/dL 0.61 - 1. 60 ng/dL [facility] TSH with Reflexon 10-29-2023 Interpretation and review of laboratory results Abnormal [facility] TSH Qn 22.23 m[IU]/L High [facility] Trichomonas by PCRon 024 Specimen source Nom (Body fld) CLEAN CATCH MIDSTREAM URINE [facility] T. vaginalis rRNA Probe Ql (Genital specimen) Not detected Not Detected^No t Detected [facility] Comment on above: Trichomonas vaginali s not detected NOTE Assay methodology is nucleic acid amplification by real-time PCR for detection of Trichomonas vaginalis DNA performed on [employer]. [facility] POCT Influenza A/Influenza B /SARS-COV-2 Veritoron 09-28-2023 External Poct Influenza A Antigen Negative [facility] External Poct Influenza B Antigen Negative [facility] SARS-CoV-2 (COVID-19) Ag IA.rapid Ql (Resp) Negative [facility] CNOVon 09-09-2023 CNOV Office Visit (OTMNCA ) SHEYLA LEA ([id number]) 3 F Date Time Provider Department 09/09/23 [...] 0 THYROID STIMULATING HORMONE [SQTSH] Order #: [id number] FUTURE PTH INTACT [SQPTHI] Order #: [id number] FU (more content not included)... Normal [facility] Basic metabolic 2000 panelon 09-04-2023 Anion gap [Moles/Vol] 12 mmol/L Normal 9-18 [facility] Comment on above: Order Comment: Speci men Type: BLOOD SPECIMENOrdering Facility: [facility] Address: [address] [place] [address] Performed By: #### 2 777-1, 91041-3, ####[facility] [id number] [place] [address] [place] Calcium [Mass/Vol] 8.7 mg/dL Normal 8.5-10.2 [facility] Comment on above: Order Comment: Speci men Type: BLOOD SPECIMENOrdering Facility: [facility] Address: [address] [place] [address] Performed By: #### 2 777-1, 52181-9, ####[facility] LABCLIA [id number] [place] [address] [place] Chloride [Moles/Vol] 106 mmol/L High 97-105 [facility] Comment on above: Order Comment: Speci men Type: BLOOD SPECIMENOrdering Facility: [facility] Address: [address] [place], [place] [address] Performed By: #### 2 777-1, 90944-5, ####[facility] LABCLIA [id number] [place] [id number] [place] CO2 [Moles/Vol] 21 mmol/L Low 22-30 [facility] Comment on above: Order Comment: Speci men Type: BLOOD SPECIMENOrdering Facility: [facility] Address: [address] [place] [address] Performed By: #### 2 777-1, 93859-7, ####[facility] LABCLIA [id number] [place] [address] [place] Creatinine [Mass/Vol] 0.59 mg/dL Normal 0.58-0.96 [facility] Comment on above: Order Comment: Speci men Type: BLOOD SPECIMENOrdering Facility: [facility] Address: [address] [place] [address] Performed By: #### 2 777-1, , ####[facility] LABIA [id number] [place] [address] [place] Creatinine and Glomerular filtration rate.predicted panel (S/P/Bld) 133 mL/min/1.73m??? Normal >=60 [facility] Comment on above: Order Comment: Speci men Type: BLOOD SPECIMENOrdering Facility: [facility] Address: [address] [place] [address] Result Comment: Akila mated Glomerular Filtration Rate [...] actual GFR. Performed By: #### 2 777-1, 89829-1, ####[facility] LABCLIA [id number] [place] [address] [place] Glucose [Mass/Vol] 85 mg/dL Normal 74-99 [facility] Comment on above: Order Comment: Speci men Type: BLOOD SPECIMENOrdering Facility: [facility] Address: [address] [place] [address] Result Comment: The [place] Diabetes Association (ADA) provides guidance for cutoff [...] Standards of Medical Care in Diabetes 2016, [place] [employer]. Diabetes Care. 2016.39(Suppl 1). Performed By: #### 2 777-1, 40819-4, ####[facility] [id number] [place] [address] [place] Potassium [Moles/Vol] 3.9 mmol/L Normal 3.7-5.1 [facility] Comment on above: Order Comment: Speci men Type: BLOOD SPECIMENOrdering Facility: [facility] Address: [address] [place] [address] Performed By: #### 2 777-1, 04391-4, ####[facility] [id number] [place] [address] [place] Sodium [Moles/Vol] 139 mmol/L Normal 136-144 [facility] Comment on above: Order Comment: Speci men Type: BLOOD SPECIMENOrdering Facility: [facility] Address: [address] [place], [place] [address] Performed By: #### 2 777-1, , ####[facility] LABCLIA [id number] [address] [address] [place] Urea nitrogen [Mass/Vol] 6 mg/dL Low 7-21 [facility] Comment on above: Order Comment: Speci men Type: BLOOD SPECIMENOrdering Facility: [facility] Address: [address] [place] [address] Performed By: #### 2 777-1, 63768-4, 78476-8 ####[facility] LABCLIA [id number] [address] [address] [place] CBC panel Auto (Bld)on 09-03 Erythrocyte distribution width (RBC) [Ratio] 14.4 % Normal 11.5-15.0 [facility] Comment on above: Order Comment: Speci men Type: BLOOD SPECIMENOrdering Facility: [facility] Address: [address] [place] [address] Performed By: #### 5 8410-2 ####[facility] LABIA [id number] [place] [address] [place] Hematocrit (Bld) [Volume fraction] 38.9 % Normal 36.0-46.0 [facility] Comment on above: Order Comment: Speci men Type: BLOOD SPECIMENOrdering Facility: [facility] Address: [address] [place] [address] Performed By: #### 5 8410-2 ####[facility] LABCLIA [id number] [address] [address] [place] Hemoglobin (Bld) [Mass/Vol] 12.4 g/dL Normal 11.5-15.5 [facility] Comment on above: Order Comment: Speci men Type: BLOOD SPECIMENOrdering Facility: [facility] Address: [address] [place], [place] [address] Performed By: #### 5 8410-2 ####[facility] LABIA [id number] [address] [address] [place] MCH (RBC) [Entitic mass] 25.6 pg Low 26.0-34.0 [facility] Comment on above: Order Comment: Speci men Type: BLOOD SPECIMENOrdering Facility: [facility] Address: [address] [place] [address] Performed By: #### 5 8410-2 ####[facility] LABCLIA [id number] [place] [address] [place] MCHC (RBC) [Mass/Vol] 31.9 g/dL Normal 30.5-36.0 [facility] Comment on above: Order Comment: Speci men Type: BLOOD SPECIMENOrdering Facility: [facility] Address: [address] [place] [address] Performed By: #### 5 8410-2 ####[facility] LABCLIA [id number] [place] [address] [place] MCV (RBC) [Entitic vol] 80.2 fL Normal 80.0-100.0 [facility] Comment on above: Order Comment: Speci men Type: BLOOD SPECIMENOrdering Facility: [facility] Address: [address] [place] [address] Performed By: #### 5 8410-2 ####[facility] LABIA [id number] [place] [address] [place] Nucleated RBC (Bld) [#/Vol] 10*3/uL Normal <0.01 [facility] Comment on above: Order Comment: Speci men Type: BLOOD SPECIMENOrdering Facility: [facility] Address: [address] [place] [address] Performed By: #### 5 8410-2 ####[facility] LABCLIA [id number] [place] [address] [place] Platelet mean volume (Bld) [Entitic vol] 11.2 fL Normal 9.0-12.7 [facility] Comment on above: Order Comment: Speci men Type: BLOOD SPECIMENOrdering Facility: [facility] Address: [address] [place] [address] Performed By: #### 5 8410-2 ####[facility] LABIA [id number] [place] [address] [place] Platelets (Bld) [#/Vol] 241 10*3/uL Normal 150-400 [facility] Comment on above: Order Comment: Speci men Type: BLOOD SPECIMENOrdering Facility: [facility] Address: [address] [place] [address] Performed By: #### 5 8410-2 ####[facility] LABIA [id number] [place] [address] [place] RBC (Bld) [#/Vol] 4.85 10*6/uL Normal 3.90-5.20 [facility] Comment on above: Order Comment: Speci men Type: BLOOD SPECIMENOrdering Facility: [facility] Address: [address] [place] [address] Performed By: #### 5 8410-2 ####[facility] LABIA [id number] [place] [address] [place] WBC (Bld) [#/Vol] 6.31 10*3/uL Normal 3.70-11.00 [facility] Comment on above: Order Comment: Speci men Type: BLOOD SPECIMENOrdering Facility: [facility] Address: [address] [place] [address] Performed By: #### 5 8410-2 ####[facility] LABIA [id number] [place] [address] [place] Magnesium SerPl-mCncon 09-03 Magnesium [Mass/Vol] 2.1 mg/dL Normal 1.7-2.3 [facility] Comment on above: Order Comment: Speci men Type: BLOOD SPECIMENOrdering Facility: [facility] Address: [address] [place] [address] Performed By: #### 2 777-1, 68160-0, 92313-7 ####[facility] [id number] [place] [address] [place] Phosphate SerPl-mCncon 09-03 Phosphate [Mass/Vol] 3.3 mg/dL Normal 2.7-4.8 [facility] Comment on above: Order Comment: Speci men Type: BLOOD SPECIMENOrdering Facility: [facility] Address: [address] [place] [id number] Performed By: #### 2 777-1, 96912-6, 87248-1 ####[facility] [id number] [address] [place] ANES POSTPROC EVALon 024 ANES POSTPROC EVAL HNO ID: [id number] Author: ITZEL ANTONY MD Service: ? Author Type: Physician Type: Anesthesia Postprocedure Evaluation Filed: 09/03/2023 12:57 Note Text: POST ANESTHESIA EVALUATION NOTE : 2004 Procedure Summary Date: 09/03/23 Room / Location: [address] Anesthesia Start: 721 Anesthesia Stop: 1222 [...] September 03, 2023 TIME: 12:57 PM CSN: [id number] Normal [facility] ANES PRE-OPon 09-03-2023 ANES PRE-OP HNO ID: [id number] Author: ITZEL ANTONY MD Service: ? Author Type: Physician Type: Anesthesia Preprocedure Evaluation Filed: 09/03/2023 07:25 Note Text: ANESTHESIOLOGY DAY OF SURGERY NOTE : 2004 Procedure Information Anesthesia Start Date/Time: 09/03/23721 Procedure: THYROIDECTOMY TOTAL (Bilateral: Thyroid) Location: MAIN [facility] Surgeons: Latasha Bobo MD [...] and consent discussed: yes. Patient / Responsible Libertarian agrees to proceed: yes Patient / Surrogate [...] September 03, 2023 TIME: 7:25 AM CSN: [id number] Normal [facility] BRIEF OP NOTon 09-03-2023 BRIEF OP NOT HNO ID: [id number] Author: JANINE SOLANO MD Service: Otolaryngology Author Type: Resident Type: Brief Op Note Filed: 09/03/2023 12:12 Note Text: BRIEF OP NOTE LOG ID: [id number] Surgery/Procedure Date: 09/03/2023 Incision/Procedure Start Time: 7:53 AM Incision Close/Procedure End Time: 12:06 PM Surgeon(s)/Proceduralist(s) and Stitcher Special Machine(s): Surgeon(s) and Role: * Latasha Bobo MD [...] 03, 2023 TIME: 12:12 PM PAGER/CONTACT #: [phone] Normal [facility] Calcium.ionized [Moles/Vol]o n 09-03-2023 Calcium.ionized (Bld) [Mass/Vol] 1.28 mmol/L Normal 1.08-1.30 [facility] Comment on above: Order Comment: Harriet abernathy Type: BLOOD SPECIMENOrdering Facility: [facility] Address: [address] [place] [address] Performed By: #### 1 995-0 ####[facility] LABCLIA [id number] [place] [address] [place] Calcium.ionized adjusted to pH 7.4 (Bld) [Moles/Vol] 1.22 mmol/L Normal 1.08-1.30 [facility] Comment on above: Order Comment: Harriet abernathy Type: BLOOD SPECIMENOrdering Facility: [facility] Address: [address] [place] [address] Performed By: #### 1 995-0 ####[facility] KATHY [id number] [place] [address] [place] NURSING PROGon 09-03-2023 NURSING PROG HNO ID: [id number] Author: BRENNEN AVILA RN Service: Nursing Author [...] This note was completed by: Brennen Avila [facility] OPERATIVE NOon 09-03-2023 OPERATIVE NO HNO ID: [id number] Author: LATASHA BOBO MD Service: Otolaryngology Author Type: Physician Type: Operative Report Filed: 09/08/2023 23:04 Note Text: [place] [address] or (410) CC-CARE C O N F I D E N T I A L I N F O R M A T I O N -------- STANDARD [facility] DOCUMENT OPERATIVE REPORT Otolaryngology Head and Neck Surgery Name: Sheyla Lea [facility] #: [id number] Date: 09/03/2023 Date of : 2005 Pre [...] the clavicle. These were held back with [place] retractors. The midline raphae was was bisected [...] tissue melton (more content not included)... Normal [facility] PTH-Intact [facility] - Parathyrin.intact [Mass/Vol] 42 pg/mL Normal 15-65 [facility] Comment on above: Order Comment: Speci men Type: BLOOD SPECIMENOrdering Facility: [facility] Address: [address] [place] [address] Performed By: #### 2 731-8 ####[facility] LABCLIA [id number] [place] [address] [place] SURGICAL PATHOLOGYon 024 CASE REPORT Normal [facility] Comment on above: Order Comment: Speci men Type: TISSUE SPECIMENOrdering Facility: [facility] Address: [address] [place] [address] Result Comment: Surg [facility] Pathology Report Case: [id number] Authorizing Provider: Latasha Bobo MD Collected: 09/03/2023 08:16 AM Ordering Location: Admitting Received: 09/03/2023 08:19 AM Pathologist: Javier Nick DMD Intraop: Joel Jeronimo MD Specimens: A) - Trachea, Biopsy, Pre tracheal node B) - Thyroid, Total, Thyroidectomy, stitch williamson left superior pole Performed By: #### S ####[facility] LABCLIA [id number] [address] OF [facility] CLINICAL HISTORY Normal [facility] Comment on above: Order Comment: Speci men Type: TISSUE SPECIMENOrdering Facility: [facility] Address: [address] [place] [address] Result Comment: Pre- op diagnosis: Thyroiditis [E06.9] Performed By: #### S ####[facility] LABCLIA [id number] [address] FINAL DIAGNOSIS Normal [facility] Comment on above: Order Comment: Speci men Type: TISSUE SPECIMENOrdering Facility: [facility] Address: [address] [place] [address] Result Comment: A. P retracheal lymph node, excision: - Fibroadipose tissue with one benign lymph node. B. 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 Performed By: #### S ####[facility] LABIA [id number] [address] FINAL PERFORMING LAB Normal [facility] Comment on above: Order Comment: Speci men Type: TISSUE SPECIMENOrdering Facility: [facility] Address: [address] [place] [address] Result Comment: Diag nostic interpretation performed at [facility], [address] [place] [address] CLIA# [id number] Associate Pastor: Remy Erickson M.D. Performed By: #### S ####[facility] [id number] [place] [address] [place] GROSS DESCRIPTION Normal [facility] Comment on above: Order Comment: Speci men Type: TISSUE SPECIMENOrdering Facility: [facility] Address: [address] [place] [address] Result Comment: Ijeoma samaniego, Biopsy Received fresh for frozen section designated pretracheal node is a pink-buckley lymph node that measures 0.4 x 0.4 x 0.3 cm. The specimen is entirely submitted for intraoperative consultation. WE September 03, 2023 8:26 AM [place] [address] B. Thyroid, Total, Thyroidectomy Labeled: Thyroid, total, [...] lobe Blue- external surface of left lobe [place]- external surface of isthmus Sectioning: The right [...] photograph: No Cassette code: B1: Right lobe, financial sales representative section B2: Left lobe, financial sales representative section B3: Isthmus, financial sales representative section [place] [address] CLIA# [id number] 09/06/23 1:33 PM Performed By: #### S ####[facility] LABIA [id number] [place] [address] [place] INTRAOPERATIVE DIAGNOSIS Normal [facility] Comment on above: Order Comment: Speci men Type: TISSUE SPECIMENOrdering Facility: [facility] Address: [address] [place] [address] Result Comment: Ijeoma samaniego, Biopsy FSA 1: Mostly fibroadipose tissue with rare lymphoid aggregate () September 03, 2023 8:35 AM Intraoperative diagnosis performed at [facility], [address] [place] [address] Performed By: #### S ####[facility] LABCLIA [id number] [place] [address] [place] CNCOon 08-27-2023 CNCO Letter Text Normal [facility] B-HCG SerPl-aCncon 4 HCG.beta subunit Qn m[IU]/mL Normal <5.0 [facility] Comment on above: Order Comment: Speci men Type: BLOOD SPECIMENOrdering Facility: [facility] Address: [address] [place] [address] Result Comment: Nega tive Performed By: #### 2 1198-7 ####[facility] LABIA [id number] [place] [address] [place] Basic metabolic 2000 panelon 08-25-2023 Anion gap [Moles/Vol] 10 mmol/L Normal 9-18 [facility] Comment on above: Order Comment: Speci men Type: BLOOD SPECIMENOrdering Facility: [facility] Address: [address] [place] [address] Performed By: #### 1 5067-2, 2243-4, DHEAS, 09083-4 ####[facility] LABIA [id number] [place] [address] [place] Calcium [Mass/Vol] 9.8 mg/dL Normal 8.5-10.2 [facility] Comment on above: Order Comment: Speci men Type: BLOOD SPECIMENOrdering Facility: [facility] Address: [address] [place] [address] Performed By: #### 1 5067-2, 2243-4, DHEAS, 81617-6 ####[facility] LABIA [id number] [place] [address] [place] Chloride [Moles/Vol] 106 mmol/L High 97-105 [facility] Comment on above: Order Comment: Speci men Type: BLOOD SPECIMENOrdering Facility: [facility] Address: [address] [place] [address] Performed By: #### 1 5067-2, 2243-4, DHEAS, 59514-6 ####[facility] [id number] [place] [address] [place] CO2 [Moles/Vol] 24 mmol/L Normal 22-30 [facility] Comment on above: Order Comment: Speci men Type: BLOOD SPECIMENOrdering Facility: [facility] Address: [address] [place] [address] Performed By: #### 1 5067-2, 2243-4, DHEAS, 09546-2 ####[facility] [id number] [place] [address] [place] Creatinine [Mass/Vol] 0.67 mg/dL Normal 0.58-0.96 [facility] Comment on above: Order Comment: Speci men Type: BLOOD SPECIMENOrdering Facility: [facility] Address: [address] [place] [address] Performed By: #### 1 5067-2, 2243-4, DHEAS, 66339-3 ####[facility] LABIA [id number] [place] [address] [place] Creatinine and Glomerular filtration rate.predicted panel (S/P/Bld) 129 mL/min/1.73m??? Normal >=60 [facility] Comment on above: Order Comment: Speci men Type: BLOOD SPECIMENOrdering Facility: [facility] Address: [address] [place] [address] Result Comment: Akila mated Glomerular Filtration Rate [...] Performed By: #### 1 5067-2, 3-4, DHEAS, 00903-8 ####[facility] LABIA [id number] [address] [address] [place] Glucose [Mass/Vol] 90 mg/dL Normal 74-99 [facility] Comment on above: Order Comment: Speci men Type: BLOOD SPECIMENOrdering Facility: [facility] Address: [address] [place] [address] Result Comment: The [place] Diabetes [employer] (ADA) provides guidance for cutoff [...] Standards of Medical Care in Diabetes 2016, [place] [employer]. Diabetes Care. 2016.39(Suppl 1). Performed By: #### 1 5067-2, 3-4, DHEAS, 79123-1 ####[facility] LABIA [id number] [place] [id number] [place] Potassium [Moles/Vol] 4.0 mmol/L Normal 3.7-5.1 [facility] Comment on above: Order Comment: Speci men Type: BLOOD SPECIMENOrdering Facility: [facility] Address: [address] [place] [address] Performed By: #### 1 5067-2, 2243-4, DHEAS, 76939-3 ####[facility] LABCLIA [id number] [place] [id number] [place] Sodium [Moles/Vol] 140 mmol/L Normal 136-144 [facility] Comment on above: Order Comment: Speci men Type: BLOOD SPECIMENOrdering Facility: [facility] Address: [address] [place] [address] Performed By: #### 1 5067-2, 2243-4, DHEAS, 79428-2 ####[facility] LABCLIA [id number] [place] [address] [place] Urea nitrogen [Mass/Vol] 10 mg/dL Normal 7-21 [facility] Comment on above: Order Comment: Speci men Type: BLOOD SPECIMENOrdering Facility: [facility] Address: [address] [place] [address] Performed By: #### 1 5067-2, 3-4, DHEAS, 29015-5 ####[facility] LABIA [id number] [place] [address] [place] CBC panel Auto (Bld)on 08-24 Erythrocyte distribution width (RBC) [Ratio] 14.3 % Normal 11.5-15.0 [facility] Comment on above: Order Comment: Speci men Type: BLOOD SPECIMENOrdering Facility: [facility] Address: [address] [place] [address] Performed By: #### 5 8410-2 ####[facility] LABIA [id number] [place] [address] [place] Hematocrit (Bld) [Volume fraction] 41.4 % Normal 36.0-46.0 [facility] Comment on above: Order Comment: Speci men Type: BLOOD SPECIMENOrdering Facility: [facility] Address: [address] [place] [address] Performed By: #### 5 8410-2 ####[facility] LABIA [id number] [place] [address] [place] Hemoglobin (Bld) [Mass/Vol] 13.1 g/dL Normal 11.5-15.5 [facility] Comment on above: Order Comment: Speci men Type: BLOOD SPECIMENOrdering Facility: [facility] Address: [address] [place] [address] Performed By: #### 5 8410-2 ####[facility] LABIA [id number] [place] [address] [place] MCH (RBC) [Entitic mass] 25.3 pg Low 26.0-34.0 [facility] Comment on above: Order Comment: Speci men Type: BLOOD SPECIMENOrdering Facility: [facility] Address: [address] [place] [address] Performed By: #### 5 8410-2 ####[facility] [id number] [place] [address] [place] MCHC (RBC) [Mass/Vol] 31.6 g/dL Normal 30.5-36.0 [facility] Comment on above: Order Comment: Speci men Type: BLOOD SPECIMENOrdering Facility: [facility] Address: [address] [place] [address] Performed By: #### 5 8410-2 ####[facility] LABIA [id number] [place] [address] [place] MCV (RBC) [Entitic vol] 80.1 fL Normal 80.0-100.0 [facility] Comment on above: Order Comment: Speci men Type: BLOOD SPECIMENOrdering Facility: [facility] Address: [address] [place] [address] Performed By: #### 5 8410-2 ####[facility] LABIA [id number] [place] [address] [place] Nucleated RBC (Bld) [#/Vol] 10*3/uL Normal <0.01 [facility] Comment on above: Order Comment: Speci men Type: BLOOD SPECIMENOrdering Facility: [facility] Address: [address] [place] [address] Performed By: #### 5 8410-2 ####[facility] LABCLIA [id number] [place] [address] [place] Platelet mean volume (Bld) [Entitic vol] 11.6 fL Normal 9.0-12.7 [facility] Comment on above: Order Comment: Speci men Type: BLOOD SPECIMENOrdering Facility: [facility] Address: [address] [place] [address] Performed By: #### 5 8410-2 ####[facility] LABCLIA [id number] [place] [address] [place] Platelets (Bld) [#/Vol] 256 10*3/uL Normal 150-400 [facility] Comment on above: Order Comment: Speci men Type: BLOOD SPECIMENOrdering Facility: [facility] Address: [address] [place] [address] Performed By: #### 5 8410-2 ####[facility] LABCLIA [id number] [place] [address] [place] RBC (Bld) [#/Vol] 5.17 10*6/uL Normal 3.90-5.20 [facility] Comment on above: Order Comment: Speci men Type: BLOOD SPECIMENOrdering Facility: [facility] Address: [address] [place] [address] Performed By: #### 5 8410-2 ####[facility] LABCLIA [id number] [place] [address] [place] WBC (Bld) [#/Vol] 3.93 10*3/uL Normal 3.70-11.00 [facility] Comment on above: Order Comment: Speci men Type: BLOOD SPECIMENOrdering Facility: [facility] Address: [address] [place] [address] Performed By: #### 5 8410-2 ####[facility] [id number] [place] [address] [place] DHEA-S BLDon 08-25-2023 DHEA-S [Mass/Vol] 365.3 ug/dL 65.1 - 368.0 ug/dL [facility] DHEA-S [Mass/Vol] 365.3 ug/dL Normal 65.1-368.0 [facility] Comment on above: Order Comment: Speci men Type: BLOOD SPECIMENOrdering Facility: [facility] Address: [address] [place] [address] Result Comment: Refe rence ranges are age and gender specific. For additional information, reference range tables can be found in the laboratory test directory. The normal values are based on the following source: Dehydroepiandrosterone sulfate (DHEA S) [package insert V 17.0 Macedonian]. [facility], [place], [place]: December 2012. Performed By: #### 1 5067-2, 2243-4, DHEAS, 80641-8 ####[facility] LABIA [id number] [place] [address] [place] ECG COMPLETEon 08-25-2023 ECG COMPLETE Ventricular Rate : 7 0 BPM Atrial Rate : 70 BPM P-R Interval : 136 ms QRS Duration : 70 ms Q-T Interval : 404 ms QTC Calculation(Bazett) : 436 ms Calculated R [place] : 76 degrees Calculated T [place] : 56 degrees NORMAL SINUS RHYTHM NORMAL ECG Confirmed by MIRNA MICHAEL MD ([id number]) on 08/31/2023 8:27:21 PM NAME : SHEYLA LEA PID : [id number] : 2005 Gender : Female Race : ORD : [id number] Procedure Date : Aug 25 2023 08:09:41 Edit Date : Aug 31 2023 20:27:23 Diagnosis: NORMAL SINUS RHYTHM NORMAL ECG Confirmed by MIRNA MICHAEL MD ([id number]) on 08/31/2023 8:27:21 PM Test Reason : Location : 119 : A17 Overread By : MIRNA MICHAEL MD Edited By : MIRNA MICHAEL MD Referred By : LATASHA BOBO Acquired by : DARRIAN CONTRERAS [facility] ESTRADIOL-17B BLDon 08-25-19 24 E2 [Mass/Vol] 39 pg/mL [facility] Estradiol SerPl-mCncon 08-24 E2 [Mass/Vol] 39 pg/mL Normal [facility] Comment on above: Order Comment: Speci men Type: BLOOD SPECIMENOrdering Facility: [facility] Address: [address] [place] [address] Result Comment: This test is not suitable [...] 3243 pg/mL Second trimester : 1561 to 17716 pg/mL Third trimester : 8285 to >38151 pg/mL Post-menopausal Estradiol reference range: < 41 pg/mL Reference: 1. Estradiol - E2 (Estradiol III) [package insert V 3.0 Macedonian]. [facility], [place], [place], October 2015. Performed By: #### 1 5067-2, 2243-4, DHEAS, 90084-5 ####[facility] LABCLIA [id number] [facility] [id number] [address] [place] FSH BLDon 08-25-2023 Follitropin Qn 6.2 m[IU]/mL See comment mIU/mL [facility] FSH SerPl-aCncon 08-25-2023 Follitropin Qn 6.2 m[IU]/mL Normal See comment [facility] Comment on above: Order Comment: Speci men Type: BLOOD SPECIMENOrdering Facility: [facility] Address: [address] [place] [address] Result Comment: Refe rence range: Follicular: 3.5-12.5 mIU/mL Ovulation: 4.7-21.5 mIU/mL Luteal: 1.7-7.7 mIU/mL Postmenopausal: 25.8-134.8 mIU/mL Performed By: #### 1 5067-2, 2243-4, DHEAS, 64873-2 ####[facility] LABCLIA [id number] [place] [id number] [place] HCG QUANTITATIVEon 4 HCG.beta subunit Qn <5.0 mIU/mL [facility] HISTORY PHYSICALon 4 HISTORY PHYSICAL HNO ID: [id number] Author: JOHN HUMPHREY PA-C Service: ? Author Type: Physician Stitcher Special Machine Type: H&P Filed: 08/26/2023 10:08 Note Text: [...] CAD, chest pain, CHF, DVT/PE, hypertension, recent MD, murmur/valvular heart disease and PVD. GI: Positive [...] Maternal Gra (more content not included)... Normal [facility] HYDROXYPROGESTERONE-17on 17-HYDROXYPROGESTE TSERING QUANTITATIVE BY HPLC-MS/MS, SERUM OR PLASMA 29.23 ng/dL Normal <=206.00 [facility] Comment on above: Order Comment: Speci men Type: BLOOD SPECIMENOrdering Facility: [facility] Address: [address] [place] [address] Result Comment: INTERPRETIVE INFORMATION for 17-Hydroxyprogesterone in females: Follicular 15 to 70 ng/dL Luteal 35 to 290 ng/dL REFERENCE INTERVAL: 17-Hydroxyprogesterone Qnt, HPLC-MS/MS Access complete set of age- and/or gender-specific reference intervals for this test in the [employer] [facility] Test Directory (Keniu). This test was developed and its performance characteristics determined by [facility]. It has not been cleared or approved by the [place] Food and Drug Administration. This test was performed in a CLIA certified laboratory and is intended for clinical purposes. Performed By: [facility] [address] [place] [address] Associate Pastor: Jaden Fonseca MD, PhD CLIA Number: [id number] Performed By: #### H PROG ####[facility] LABORATORIESCLIA [id number] [place] [id number] LH SerPl-aCncon 08-25-2023 Lutropin Qn 8.8 m[IU]/mL Normal See comment [facility] Comment on above: Order Comment: Speci men Type: BLOOD SPECIMENOrdering Facility: [facility] Address: [address] [place] [address] Result Comment: Refe rence range: Follicular: 2.4-12.6 mIU/mL Midcycle: 14.0-95.6 mIU/mL Luteal: 1.0-11.4 mIU/mL Post [place]: 7.7-58.5 mIU/mL Performed By: #### 2 842-3, 66570-1 ####[facility] LABIA [id number] [place] [address] [place] LUTEINIZING HORMONEon 2023 Lutropin Qn 8.8 m[IU]/mL See comment mIU/mL [facility] PROLACTIN BLDon 08-25-2023 Prolactin [Mass/Vol] 8.6 ng/mL 4.5 - 26.8 ng/mL [facility] Prolactin SerPl-mCncon 08-24 Prolactin [Mass/Vol] 8.6 ng/mL Normal 4.5-26.8 [facility] Comment on above: Order Comment: Speci men Type: BLOOD SPECIMENOrdering Facility: [facility] Address: [address] [place] [address] Result Comment: Prol actin test is performed using the [facility] Electrochemiluminescence Immunoassay method. Results obtained with different methods or kits cannot be used interchangeably. Performed By: #### 2 842-3, 74622-4 ####[facility] LABIA [id number] [place] [address] [place] TESTOSTERONE, FREE AND TOTAL on 08-25-2023 TESTOSTERONE, FREE, S 1.45 ng/dL High <0.13-1.08 [facility] Comment on above: Order Comment: Speci men Type: BLOOD SPECIMENOrdering Facility: [facility] Address: [address] [place] [address] Result Comment: ADDITIONAL INFORMATION This test was developed and its performance characteristics determined by [facility] in a manner consistent with CLIA requirements. This test has not been cleared or approved by the U.S. Food and Drug Administration. Performed By: #### T FTEST ####[facility] LABCLIA [id number] [place] [address] TESTOSTERONE, TOTAL, S 56 ng/dL Normal 8-60 [facility] Comment on above: Order Comment: Speci men Type: BLOOD SPECIMENOrdering Facility: [facility] Address: [address] [place] [address] Result Comment: ADDITIONAL INFORMATION Testing performed by Liquid Chromatography-Tandem Mass Spectrometry (LC-MS/MS). This test was developed and its performance characteristics determined by [facility] in a manner consistent with CLIA requirements. This test has not been cleared or approved by the U.S. Food and Drug Administration. Test Performed by: [place] [id number] Cuff Knitter: Yan Echols M.D. Ph.D.; CLIA# [id number] Performed By: #### T FTEST ####[facility] LABCLIA [id number] [place] [address] Alexsander 07-13-2023 CNPN Telephone (HNQ) SHEYLA LEA ([id number]) 3 F Date Time Provider Department 07/13/23 [...] to consider it. She will see her merchandise flow associate which is a new merchandise flow associate in August and then if still interested in pursuing thyroidectomy will reach out to me. In the meantime we can hold a surgical date. Latasha Bobo MD Allergies As of Date: 07/13/2023 (No Known Allergies) Date Reviewed: 04/23/2023 Reviewed by: Ayesha Maddox RN - Fully Assessed Reason for Visit: Results [95] Primary Visit Diagnosis:Thyroiditis [E06.9] Order(s):SURGICAL REQUEST - ELECTIVE (12/2019) [4691844] Order #: [id number]: 1 CBC [SQCBC] Order #: [id number] FUTURE BASIC METABOLIC PNL [SQBMP] Order #: [id number] FUTURE ECG COMPLETE [ECG01] Order #: [id number] FUTURE Prescriptions as of 08/02/2023 - omeprazole [...] Status:Closed by LATASHA BOBO on 08/02/23 Normal [facility] T4 Free SerPl-mCncon 024 Free T4 [Mass/Vol] 1.2 ng/dL Normal 0.9-1.7 [facility] Comment on above: Order Comment: Harriet abernathy Type: BLOOD SPECIMENOrdering Facility: [facility] Address: [address] [place] [address] Performed By: #### 3 016-3, 3024-7 ####[facility] LABCLIA [id number] [place] [address] [place] THYROGLOBULIN ABon Thyroglobulin Ab Qn 91.0 [IU]/mL High <4.0 [facility] Comment on above: Order Comment: Harriet abernathy Type: BLOOD SPECIMENOrdering Facility: [facility] Address: [address] [place] [address] Result Comment: The Thyroglobulin Antibody test was performed using the [employer] DXI paramagnetic particle chemiluminescent immunoassay method. Results obtained with different assay methods or kits cannot be used interchangeably. Performed By: #### T EVARISTO ####[facility] LABCLIA [id number] [place] [address] [place] THYROID PEROXIDASE ANTIBODY BLOODon 07-09-2023 TPO Ab Qn 249.5 [IU]/mL High <5.6 [facility] Comment on above: Order Comment: Harriet abernathy Type: BLOOD SPECIMENOrdering Facility: [facility] Address: [address] [place] [address] Result Comment: Thyr oid Peroxidase Antibody test is used as an aid in diagnosis of autoimmune thyroid disease. Clinical correlation is required. Performed By: #### M ICRO ####[facility] LABIA [id number] [place] [id number] [place] TSH SerPl-aCncon 07-09-2023 TSH Qn 2.600 m[IU]/L Normal 0.510-4.300 [facility] Comment on above: Order Comment: Speci men Type: BLOOD SPECIMENOrdering Facility: [facility] Address: [address] [place] [address] Result Comment: If t he patient is , TSH reference range varies by gestational period: First Trimester (weeks 9-12): 0.180-2.990 mIU/L Second Trimester: 0.110-3.980 mIU/L Third Trimester: 0.480-4.710 mIU/L Jose Fisher et al. A Practical Approach for the Verifications and Determination of Site- and Trimester-Specific Reference Intervals for Thyroid Function tests in . Thyroid, 2019:29:3:412-420. Loc E, et al. 2017 Guidelines of the [place] Thyroid Association for the Diagnosis and Management of Thyroid Disease during and the . Thyroid, 2017:27:3:315-389. Reference ranges were not locally established for this patient's age group. The normal values are based on the following source: Jayla W, Tim Elam. Reference Ranges for Adults and Children: Pre-analytical Considerations. [facility] Performed By: #### 3 016-3, 3024-7 ####[facility] LABIA [id number] [place] [id number] [place] CNOVon 04-23-2023 CNOV Office Visit (OTOLMN ) SHEYLA LEA ([id number]) 3 F Date Time Provider Department 04/23/23 [...] mobility normal Neck Ultrasound: 05/17/2023 Ultrasound Machine: MadeiraCloud Transducer: Linear 11 MHz Regions examined: Thyroid [...] [E04.1] Order(s):US THYROID/PARATHYROID (POC) HNI USE ONLY? [[id number]] Order #: [id number]. #:[id number]: 1 TSH BLD [SQTSH] Order #: [id number] FUTURE T4 FREE/FREE THYROX [SQFT4] Order #: [id number] FUTURE THYROID PEROXIDASE ANTIBODY BLOOD [SQMICRO] Order #: [id number] (more content not included)... Normal [facility] Coding Summaryon 02-05-2023 Coding Summary HTMLBase 64 EtldgqfxOFk0hCb+PGhlYWQ+PE1 SPZBeU77rfCRrgM2gZ9MLOUbWBr prFOGDKVvGFnUqchAbSK1ilVUlP XJu IC8+NH6rJIDcUxsrkPWyc8J9aZN 2S61rur5rSWyxdCH4CYHqPpBztc ark9nlkPc8EYjoIvorZvAe LPNzvK99RNA6gM53Tz87sZNnbNR eg3bzzIm0RxQmJWDvWGV2lCsqTE ybe2UzQAIyY01zkUVip7L9 QDAkhHsrsMPgOpWgwAK9iH6bBIi wkysci5exsjvdEvv3np12sCIaq4 A6zCR0Q2ZtbaY2BQXhqBPm BmbqzWBPqV7jhftfe4pqsjhdVdH hAVSbAUm5XDy8PZXyaAbrXcEoLA 32SCA9PCZtrjHpR8HsJRTs hDunSaI5n7X6Jl5RJ0MFQueyX6U NTUFSWTwvdGQ+MO67la56N5AiNb wpXul9IDDbUYB5eFN5iZ2t YPZvGYspb7G1aXF3F8RixdRwni2 td3bxBQOxZPzhP44zkHTwp8D5UD SqyJT5PPBywJeuUoXxvE43 Oyc+KNQqxUmtx1ZjTqfjg0cac3t puAz5JfnlKWTbvzWawEknKYL1w4 UdJc9nUFNbcDF8cSL5wW8g IlXvIoM0MIobS708JeJrxPRuBpf dF35aP8BfdDK+GJMbCdw9NWUlzY yrYQ9yG3GuXNQetorzaYVm rDgcQX0fGQHcgqkoDSXcsM0fCLX uP5m3VuZmWvJ7TTcqO4JjDKMwef kvHp83fI1jToUoXcH7EFnm S7EqegP0HKSbiLPzSVobRUA1Q65 ur1L6OBUtHRYdGHN4tOI2gK6ljY lnbjogbGVmdDsgdmVydGlj QHcnDPdyZ834ZZOrpFyqKcQxYKh uZyBEYXRlOiAgMDkvMjIvMjAyMz wvdGQ+TNOfIWF3fCumZTLh nEZqXAttPw6lyZgnyUneVQ3rKSF rmllqPUOvsJ2kDHPujWFztDgrHZ 9gOOWefpndg611UsIdRQU2 FHHmwNQmL8TqzK2kPmMwKYDvHDJ hV5AkgCFpBRncQ236XLcxVbA9LL UdgyGrI7CyUYUaeUfiPuR5 y3D7Is5Il7HlfwmkB7HazTIaDhG yAfknPNo4U5ViHyoncIA+PC90YW KhTR84EKf0ADS3gLrzIBdt CZNuK0ZkbR2lUuIkZWNtDFUkNbz +PHRhYmxlIHdpZHRoPScxMDAlJy FizWheJX2kTo1rFFTgFVDr nHvbmGXfOfWaq9usKZCeQIeuUR5 dtQciY4XfrFG2CZPxb0p0Nq27C3 1xA9ZatVD+ZZIpeHK8iRH8 pH9hOpVjNwL4RXjiJ478RwGikNN nZxead0jpo8tnsJq7RgD2CMCuxh EezYphOGG6s4XoPz82U38a IHdpZHRoPSIxNSUiIHZhbGlnbj0 vfQ3xOk9+WRPscAD8xSI4zS3kBp LdEtZ7YOawP053OrEafANf Ktnvx2ort1ysjVx6NgNpXRZbpaR nqEwoNYG1h7EnOm07V0KjbJehp8 NeQbu2lv15dZFhe0N8kUZ4 R4NfXFAqxnlgzZCgdRwoQR8kQXR hnxamCUAozL7yXLBdH1z1BrEwJf G6ZJuaX9HhohI7YVJyrUQh OEJbfLBDnC3diijmk9vdqqwsZbX yIWDiHVy3GXi0EOAhxIblOjRxEA J7MuR0HPN6zECyhP2jjEyr uqlyvG7iBej+XVN7tVCrhKVDTV1 lOjwvdGQ+ATHpXST3bOshFZyfHS JvdF9wUJUyV6y1SvUkHrA0 MOkaR8LbzeF8PEPxuHVySRQsjNA AhL4miayif0cyrkxhVyQzWMDeSD d0ULx9ZTJmkMxlEjGvVJH7 JeA8MZK9gFOfqV6jfHyyzmzotS2 wOyc+MjnioPmvBAR0NKd8U9NnUm x3NORycRtfPC7zrFCnEEwx Qz0ooHjxoUpyKS9cACUtphpbg95 0UkNez7ekUSKmuQKrJBjeZNV5F4 0qe0A2BJZfFLWjYIM4aVM3 vA2hpWkavnwtnGLunIkasqYccFx wQAqtCOdjR014RDXvmYadCvQpPN u1D7MdYcb7AUOqzVskQZ0x hKLkDPzvCn5vaWyexLefER1dCJB tlcabd277NfTse6jvICVniAQpSA rjOKI7Q23rg3X8INYsRIYo YGT4pZA7aA8vzOudvprghKXiuCr zqpFqfVnvVGndSUbgL101BIFkhB zvCaRwoUt2A7VdTov1CNNe kBsuEP5npBDsCQlfGr1znSqumQy sNT7dIMJtsfidm733EkLop9tuRU XyuFUmODhtNER5A30sv5Y7 KIFlJEUdAFO5vKK2tA7ihUbpeok gbGVmdDsgdmVydGljYWwtYWxpZ2 46IHRvcDsnPlBhdGllbnQg NZsiCFn2Q2YyFvvfqRF+WR18TSF jEA27qETswTBlz9ftqGt0VkAyJY HmUDC9nImqUJaka5CsZUXu Q39kjVIfh5L4NVWpiDqvuYExXjK ghZC7fT2zTQtusscfh8bbdmhvZy wra2gtkx30jT35P27xQIty GLEdFUVjHXDxOIYhnRrgoz0jkU7 wIi8+PWRooEH8rYV8cM5lKYUlXy J3IMfzR733ZfYfyRKcGjcp b6ucz4foxZj5MeB0XHQdltPhcAi oIJX7g8LiKw28R45rWCwpMTLlTS YnFBMoQZQwvVcduu0osA5x Ii8+HRKksGR0mSN6uM7hFtNbGmM 5PEfsS237HuIwtOWpZkwjL96cR2 JvdXA+UAQzQni6CPUwvUtl HF8nsEFsDAfnVj7dUDF9YcFiRdK rOLpwD4CdHKLyjqsnzkurqCD8ON JeRRPpvH15Rd7uoDpgYCAf dKVAgJ2tltxmk1gpdyvcRyLlBDA fRAj7FNt3BMVqzQxoWxYyVMJ0Nx S6ROG9vNWwzV7lsHkelcam kS6zC5MtRMRiztjoZn26qU4bTdH xHhI4UGayLzr+DI7BSKEBOORzEP jZQe6GQRqEJANTTQwNKD3M AgyAMY81LQ48hVPvs0B2eZR8C7O sNMAgaqmpyyqidGL8GNKyCOWvzT 48sEOjTCkgJz0vx1Y2d041 THJhNJYndM41Ci9rjXvjULKapML DeH3tagzzx1skrozcGjZrPLVoTG x8NMu2CMJqwWmwLuDqUEY8 WsW0HRW5nJYkkG8tzPdvxiuchM0 wOyc+MDIvMDkvMjAwNTwvdGQ+PH PhCXG2hQjcIAbtYDWjfS8r VBGpX2g6UuEoDtZ7WTetY1VqBUX biwaxCx71jX1xXkZxDrB7BBwdX1 IknjM0EWMvsMNgYTixMIL2 H94fp5Q3FBMoZCZvIYF2qUW5rM9 hbGlnbjogbGVmdDsgdmVydGljYW doBBghF390AFGnvAbrPpD0 ZJheXCToRM30EJ44iFAiy3X4uUV 6C7CiARYiwixmbmtifGO8GQKzNS ZyqW97rHEcTOjeFg6gg1T8 c062ULKkGCFbkZ25Oe7tqSvaZMO mzUKMrS4ficsvs8torpcgUlVwRM SxMHc7RBi4ZBPrpUuxMmLy KTY2UbW6ENB4yEIwyE7rnSaenkw bnL4nGzu+NxKBLYbBHT10EB16cC Nhj7Q5gIG3E1BnAGKsscbs xvvysKH2EKWvNUVeaD62xUQpEMc tSz5ps3V8j020ADJzACMpzR89Ew 1wlRxkXSChtVTJcX9zdidb p0jqjjehIwBwBDHlZBu6EJb6CIJ ucRzoJeFeKNG9DwF1ACF4mHKlbU 4kpOinmuvpjC9jWoa+T1A8 X3WrCrmqeBY+PC60NHEnXQ06iHG npGVoe7bzrDt9FzEuUZQcQTD2zK kuEAtwu8TqKDTvK93akVZl m6N3UVLwzOnflTIgTxMihAB2bJ6 bKJxeheijd5lnlljrEoohc0cgkj 15hS81W53mQShcTSQtVRTp JMRkDLQdfXklij5syG8lDs7+PGN qtGU5nOR9oJ1vEhEoAaH4LLkcA0 67EnOnjSAiJujdo5sup7mk aHp8XfKsPUBtrpEsiJxvZJP1e7J sZy40Z02iUTzaUIRmTGKrHJIgNS KzeMnrvo8eeX2wDh0+PC9j b2whbm73eI36rVD+DPIqGRO7aBh qQGxfVUUeqR4wWYsbKaR0FBRpHk TtbL30vSBsVCefJp7kbPtu cPdeZL6oPEDsaugtv136RwHqf3c iZXPulWHlVCdlKTT8Q01sj1A2QQ EpQXDtTYJ3sJK2uC0nfIis bjogbGVmdDsgdmVydGljYWwtYWx jR886OKMznRrhQhAdgJWgV3jukh TDTS5hMubicUQ+PHRkIHN0 bNtyUKxwLFSieI1sKPCuT5k1ElQ pEzS1BZuwG5VhagV2ZODcyAJjCN UwaYTZuV9woqvmq8rnjafk RdXdXTNkNWo0CRa4SAXsmBdkLhQ dZWO0JfL3TME9mUNroS8fvMctws nvgO7uQyq+RklOOjwvdGQ+ JFPgRXJ7nGsvUVlvIZIrxM9lWGG zW1y7BzFfLpR6KPhcP0NxezG7DV YldNDzKGGzqHTTsT6ecmjw s1kqlsjrMkOrGHXfNKv8NNk0FMW atEylWgLcFZB3PhX7PSQ1xTVreR 0ztKwesmzaaA1jBfm+TVJO OjwvdGQ+XFGkJEZ3uVcfMSykYDR lhH1nUFWyY2c8ApBsEaO7RZndK9 OkujD1PQHelZWzIWSviCVG eH2pcfrri8qnojvaCpUoPMOpISo 2YKk0FKBgdEunFjVxCSF2KyD1PI S5pWHvgC1zhKrhinwhwZ5g Oyc+FGE5JFF4CC01GN06V9DnRjg vdGFibGU+PHRhYmxlIHdpZHRoPS fbGYQcSgZuzCwdFE2dPv8z ZGV (more content not included)... Normal [facility] ED Clinical Summaryon 2022 ED Clinical Summary [facility] ? Urgent Care [address] [place] [address] Clinical Summary PERSON INFORMATION Name: SHEYLA LEA Age: 17 Years Sex: FEMALE : 2005 MRN: Acct#: Visit Reason: General medical; HEADACHE, RUNNY NOSE Arrival: 01/27/2023 17:33:58 Discharge: 01/27/2023 19:00:00 LOS: 000 01:27 Check In: 01/27/2023 17:33:58 Checkout: 01/27/2023 19:00:00 Address: [address] [place] [address] PCP: Aime Goff DO PROVIDER INFORMATION Provider Role Assigned Unassigned Zara Fleming DATA DESIGNER Nurse 01/27/2023 17:38:07 Chetna Rodriguez PA-C ED [...] With: Address: When: Aime Goff DO [address] [place] [address] DIAGNOSIS: 1:Viral upper respiratory illness Patient Understands: Comment: [facility] ED Note-Nursingon 01-27-2023 ED Note-Nursing covid back at time o f discharge. aware of results [facility] ED Patient Summaryon 023 ED Patient Summary [facility] ? Urgent Care [address] [place], [place] [id number] PATIENT DISCHARGE INSTRUCTIONS Patient Information Name: SHEYLA LEA Age: 17 Years Date of : 2005 Reason For Visit: General medical; HEADACHE, RUNNY NOSE Arrival Time: 01/27/2023 17:33:58 Primary Care Physician: Aime Goff DO Attending Physician: Chetna Rodriguez PA-C Comment: Patient Education With: Address: When: Aime Goff DO [address] [place] [address] Viral Respiratory Infection A respiratory infection is [...] home: Managing pain and congestion ? Take veta-ohy-fpdugmj and prescription medicines only as told by [...] water are not available, use alcohol-based hand dentistry teacher. ? Cover your mouth when you cough. [...] system, suc (more content not included)... Normal [facility] Coding Summaryon 01-20-2023 Coding Summary HTMLBase 64 BfhdudmsAEb9mNb+PGhlYWQ+PE1 OPDEoA72glJKicZ6nU7XBJBtNYz xkXFCIGZqJZdXncuOuCO9zmZTdD XJu IC8+MD2aPOFdYnktbVPlz2H0bUS 2L25two5sSHnjmPN8SESiCjVsea svb6dfeRt6ELwsEpdfTmYb KFOcdS27ZGK3jG80Kh94mDZxiWN my5ohmEd7EtQiZZZpFYF9cBwrPT blq4QfOJNiR07ioZQbg6S0 GFSorImoqCPePfKjtPY9fX3mYCw nkoeez5zwpmywFeo1sg39rRPhf0 V9hAL0W4RqptJ5LXWglMRm HiokwWWNiN8jumbnw7mhunbuSbI uKVEoCZm2NDp9JXFjlOowQyPgED 31EFV9RJBlfhYlL2CuTLMt dIcqRcB6n5J3Cw6II2AWJlnyD0O NTUFSWTwvdGQ+EZ25by92P7WvNy lzCnl1NOGtUNT9bQC0vR2g FBMtUXkyy7Y1pLT4L7JzegBqhf6 wn9ieTZChKRsvN27agFIgv4W1HZ VzcBP6WKGkjSevTfHiaI05 Oyc+FQVkxSngi9FfRhtsl5zxz6e dhTm0FlvoWMSmsqFfyJrtLMU4n2 WtSp3kRTGkkKM3wRA2wK9w BdMeIrF5TAkpH623DqTdnQHeGox tG33rE2XhqDZ+NDFpVbj7JMZwmK vhLX5zK2VvOFSktdumxKMr tZitKI1fHOBvdceuZEFkfD0kGMH tU7y9IdDtJjQ3IDzlW0FkXHZhdf orVe58hH9aHiSfGfZ1UBtw C3EitqN4XHCoeHEzIWrbCSK3C68 wh7Z4GCJgIJThIIY0hQD8nG8gzS lnbjogbGVmdDsgdmVydGlj ORqnFNqdC061IOCijJlpUwHlVEw uZyBEYXRlOiAgMDkvMDYvMjAyMz wvdGQ+MOFnFAW3zVwqRCKf dUQcCFetOx6uaKpjpJlwMZ5iCEG bfeivSXTavV1zJUUtoHCqrKqsIX 3tSLCehhqfz569EqCnWRI3 ASKfbPHpQ8AtoZ3sLsIrSNIsXRN vX9NbhTYkDJxpC231LPnvZcG2NL YasoOxM0NdXPOilRvdBvJ1 t3Y7Hu8Kb3WaalazG3KbnAIvWbU wAkroAFg7A0AsDdqfwLA+PC90YW NoZS57VYh7VOI3cParREpr MDKfH4AokB6wMdOcBKEnSOPqPhp +PHRhYmxlIHdpZHRoPScxMDAlJy TbeJemQR7mTc9fDLNrAXYy yYiglDOhMmGuo7nsUHFwSSioOK9 utLjcP3PhtUL3BHQoa4v4Nd19L5 0yA7MepCK+VJSasCT9lBN7 fX4cZvJgSkT4SOuyD005KeVjlEG tQagxw3jxf2xvvRi7BdD9DNDrss IzhBudTUK7n0MpHx23H54r IHdpZHRoPSIxNSUiIHZhbGlnbj0 qoZ2iWq9+JWUrhYP1bJQ9iA3xXk DnKkQ7SPfrR177UxZhcIFy Ygaxa9djq4hzzDn9DxPzXMQxcaH pnNkwNIE9r3GgDx51V7TehSbnj0 FhEik2yw48iCQvf2R9gNC0 Q4WwYJPszmeriDBniPgpAZ0eVAM ucgygWJXyqY6eSUBiS6x3ZyLsTs E0NSeeC6XannG7JUKgyCPl WJExyKCEvD2xbixfy3isvqxbZcS fMCAmCVb7GIm6KGUksNhcLyQfRR O2NnZ5URF3hBCfnC9kxAhd zvgnjE5cYcp+LCY2dRFbfPSJFR0 lOjwvdGQ+RJXnOSO1yTuwCYhbNV TtmI8kDFZlE2o1FeWoZhZ7 GTxnP2IyprD3OFOylSHmTYEoiRY RbL8kkcatm0hjziheRrLkYXLeRF c4VGv4GZMdsNbsRnEbZTS9 XmS7IKB8bJEkzV5glUhzmrkacT5 wOyc+VewohOziUXZ2WVe8D1RbAb b9WWYanBcdUK3mlQTvLAwn Nd2kfMvmfYnxJK7lGTZdzqqjd64 9YtAzh5xsKAErvWHcTMzfIGL9U3 0uz4M8CBCyLYVpXRG9dXB8 bK8zfKbivqtocWKycQipijZayIg zDJmlABxjV262WLGbbMwyWkKhOT j4F4PwRrd3SGQklLqmGZ7f oUOpOEjsAi7yrQkgrWpaUO1eWSZ zdzzbl024PwZym4mxDDOjsXHaFZ ujYSO1S66lx2P5CINvOIEg OXE1gWK6hL1rbYdosumhvFLfpGx hknBbxFasBCyiNTgpK052BEXycT lnCzAniLk6Y7JiOri4QWEz hMyzJE9kiDPtXGczQb3ngTdfkGb bEO0mOXLohtxkb792PfXur0ynAH OtgHKcDThxQMR8O51zh8U8 LDHfTVYhMEH2cSM3dP9xcFhkshr gbGVmdDsgdmVydGljYWwtYWxpZ2 46IHRvcDsnPlBhdGllbnQg UUuyDRw8U4IxXtfvhHY+EU58KZN eSZ81bZEeyPUqn7zxdKu9SjGhXW WzEEI7vTtfRQfcq1LuKDAf Q64ejWCly2N3GXUmsZmesUBoAgQ jmXU4dA2aYHwsstzkr1ugxjmbFk sgt2bjlk03mL02R35wFBbp NOAnOPGbIUVkTBZgmUtyjf3lwO8 wIi8+BHHwuFP4lLL5gJ9cPWDiUu Y0CBmcG983UoFwjGRoAmfr f9jmx5bmrTi3EpG8WPQbayVszJx eQNC6z3PdEo64L31jWVmaCCWyWQ AdPGJbRTLwrDeixm1jdR9t Ii8+NDZbiBA3vPQ9mX3uUmNhVsS 9WXwhG642MmYhqQCjXyqzC84eM2 JvdXA+VBAvVdi4NWMyuYtm GE2lrIVmEAwgMs2uNNP9XtRtThE wHIqjQ4RmFIQojlbhkxnjqAP9QJ LpVNPdqE42Ve5jjMqiWJQv iSOEwN4uxhfko7yvebuoGmAqMEJ fWCe7RXq2NLSdzDgvDdLxWZA5Wm E2WKB9lHQmdA3efRhrdzuy cT0mZ9AjRMCpabmeAx49hM7bKbK qDtJ7OYaeTte+ER7FYODEOLDpQA qPPg0TNMrOCZMYNDsGKV7O QcvILT75VM18sBDbj8Z1qWQ5F1Q hTDGifvyynsacsIN8QHHdKJOirZ 66vZKnELceXp5kb6J8j485 CQGsXDEmwD44Fx2clCfsSCCpoXJ OoJ3qqnftv9xjwrqvTtVaKRUvGO f0HWk1KHAhkVamGpBkEAA7 CkS9QOZ3lVHsgZ9jrKmuveysnL6 wOyc+MDIvMDkvMjAwNTwvdGQ+PH IfZQN1nZdeGAsdDCHpmP9n SRIsC6g2VvOeHeQ1XUhaH6FpRBS xgirkSt23sA9fSeJpGlA6VWicE2 DvmcI3ZQDpcHQqXBmsUQE4 R03tw3L1WLHaTIMiUEM8fGV8dI0 hbGlnbjogbGVmdDsgdmVydGljYW jnYRihO997IFYkcLaxNaD8 CEmoWVRtEU83WF36cJIff9L6aVG 1Y0GeBVSjhlcrmaaskVK4YMFfKF JfeQ42kUHvTZbqAo2oh9E0 a559RFCcHRRzqJ21Yw9sqEduZBM iuJKWsE2itdgxn4wfnifmNnThTH UlMLv7LBh0RYAohCskPkVe EFO1BxT3YER6xEUjzQ8gwGyopxz zkJ5vHem+PsTODJvXHI42HF53cG Gcw9T1mVH6Z9YbMKRuoiyh nqzjvTH8QBOrQTCwyM03eNPmQDr fHi9bx0T1j054LSClDWUfkR87Mv 7nuMsbDMQnePZLbO6nfixd l7hibjgmQoAuYFTyHAs8FOe2FLM uxEytLeZgOYO2YkQ5YKV5zTZkxS 5wfCiqvgopsW6xCtn+RW1l hrpczwL5FW87YR34N6IvZckibDV ibGU+PHRhYmxlIHdpZHRoPScxMD RrGuMkkFzsUM3sNa8oEZPa EVVneJajmQIpBcSbo1ljFMTqRXq oIY2dfMmbW5XkkVF4GEVme2x5Aa 75N49uX0WpiDP+PGNvbCB3 wFS2zC9eAyKkNcY6JHlmP704YdC fkWQzOferg1fek4rblJj1NyZvOM PbfnOguWclJWG8q9DcNu51 X50qIIbaEMVlBVHnSSDgNAHyqMt qyj5ceC6rLo1+FEThkTV5lXT3eF 5vPxMiYtW9NPxvM127MiYd qOKxPrpvA53cJ8XbwEJ+PHRyPjx 0SOQcsBqpWF3nhSNxYSeoEd2qIW D5KzHtBvIrUKzkN3JwAJQt qdhruyfjbYQ6EZMpYJGgpY29Ql8 kdGikKu6vXIAiSGQ0OMMenOOiB3 NdwG1tEdUrPLGpHGKfZ0Uj bSGxLWxbC646YWanUqY1TFHpehT zL0VqIGYufGjzImO5x0A2Ls6IxO lerCBnMJ9mOoAbNOu5Q7Yw Jcl0EIWdiApwKF8hcGSqEGohBw4 ssLsnrSntJQ8oQGPgijnqz119Pz Bpj9faILNejJGpIFohGJS1 K91hf8C6PWPtUTXwLIK5aTQ6fP4 hbGlnbjogbGVmdDsgdmVydGljYW ekZQiaX641KAElsElwSoAH Oqj1M1YaVbu6QOLelEtcGV2quLA eCVqpAt3ylDrpuNdyZB9hFPNrvy vxd852ZjMxv2hkBNMmrNWm TZtmEDL4P56jd0L8XTGlKJQpRKV 5cXU6iK6juRsyovugtBDwwOdxrf WkeDyjNUrcTFytC652DNOt tAxlZj3QKer7J7AgZtf6TETbiSh yLB2qhRAbEPexBy3ypFkobBuwJD 7yKPNokrcni524NqZzy8js IUZxxXHePWwyDKI7M94kk2I0UBT yERZjCRH1lIS2wH2bdQkznyyhxJ VmdDsgdmVydGljYWwtYWxp H367OYUolKztTzKceUEhDlwpjGT +JN69ah11Q3SnKztwQfm0AXVkFO S1wYE4mR1fDYImMAdzn6K3 bGU (more content not included)... Normal [facility] C Urineon 01-08-2023 C Urine Urine Culture ordere d as a result of parameters set on specific urine dip and urine microsopic results. Mixed skin, or urogenital mar. Clinically insignificant Normal [facility] Comment on above: Performed By: #### 5 1107316, [id number], [id number], [id number] ####[facility] (DEFAULT)[address] [place] [address] .Auto Diff 01-06-2023 Auto Uinta % 9 % Normal 05-28 [facility] Comment on above: Performed By: #### 1 4884887, 1564069, 0601658046, 9612848722, 2377276918, 7779874261 ####[facility] (DEFAULT)[address] [place] [address] 09357 Baso Abs# 0.1 x10 Normal 0.0-0.2 [facility] Comment on above: Performed By: #### 1 7791059, 8232008, 0945999096, 8789058807, 2944011718, 2482064853 ####[facility] (DEFAULT)[address] [place] [address] 61391 Basophils/100 WBC (Bld) 1.0 % Normal 0.2-2.0 [facility] Comment on above: Performed By: #### 1 7073874, 8324477, 3768698337, 8601874360, 4511954980, 4393853062 ####[facility] (DEFAULT)[address] [place] [address] 59492 Eos Abs# 0.1 x10 Normal 0.0-0.4 [facility] Comment on above: Performed By: #### 1 5396963, 8574122, 1371332158, 1247678705, 2378577898, 3364107841 ####[facility] (DEFAULT)[address] [place] [address] 19117 Eosinophils/100 WBC (Bld) 2.6 % Normal 0.9-4.0 [facility] Comment on above: Performed By: #### 1 1783699, 4543088, 9511024484, 0458257710, 5459838900, 2787191156 ####[facility] (DEFAULT)[address] [place] [address] 19776 Lymph Abs# 2.5 x10 Normal 1.3-2.9 [facility] Comment on above: Performed By: #### 1 8077383, 1048784, 9941419201, 7837316883, 2265894496, 2980945434 ####[facility] (DEFAULT)[address] [place] [address] 11985 Lymphocytes/100 WBC (Bld) 44 % Normal 14-48 [facility] Comment on above: Performed By: #### 1 4977621, 2485937, 9551991635, 3483968599, 1205646832, 8681872170 ####[facility] (DEFAULT)[address] [place] [address] Uinta Abs# 0.5 x10 Normal 0.0-0.8 [facility] Comment on above: Performed By: #### 1 6799649, 9804456, 3023837002, 7571986458, 4053672473, 6631573285 ####[facility] (DEFAULT)[address] [place] [address] Neut Abs# 2.5 x10 Normal 1.5-9.2 [facility] Comment on above: Performed By: #### 1 1377946, 4294561, 2422711666, 4870873719, 2350163740, 3058288460 ####[facility] (DEFAULT)[address] [place] [address] Neutrophils/100 WBC (Bld) 44 % Normal 44-88 [facility] Comment on above: Performed By: #### 1 9666311, 3920813, 1852510369, 0629358245, 6746732437, 8814924664 ####[facility] (DEFAULT)[address] [place] [address] CBC w/ Auto Diffon 3 Erythrocyte distribution width (RBC) [Ratio] 15.2 % High 11.5-15.0 [facility] Comment on above: Performed By: #### 1 7617140, 7323653, 5839340097, 2007510260, 4354904184, 5010250986 ####[facility] (DEFAULT)[address] [place] [address] Hematocrit (Bld) [Volume fraction] 39.4 % Normal 33.7-40.4 [facility] Comment on above: Performed By: #### 1 4198384, 2643674, 4902690636, 6882270184, 7560889066, 6573642110 ####[facility] (DEFAULT)[address] [place] [address] Hemoglobin (Bld) [Mass/Vol] 13.0 g/dL Normal 11.3-15.9 [facility] Comment on above: Performed By: #### 1 1587253, 9335734, 3141018991, 3303872371, 9980143550, 8107791983 ####[facility] (DEFAULT)[address] [place] [address] Man Diff? Auto Invalid Interpretation Code [facility] Comment on above: Performed By: #### 1 9477984, 5931120, 1295168759, 6344372446, 4659846906, 6703582160 ####[facility] (DEFAULT)[address] [place] [address] 86783 MCH (RBC) [Entitic mass] 26 pg Normal 24-34 [facility] Comment on above: Performed By: #### 1 7156367, 7252814, 2858515397, 0523144575, 1281102937, 1468948918 ####[facility] (DEFAULT)[address] [place] [address] MCHC (RBC) [Mass/Vol] 33 g/dL Normal 26-37 [facility] Comment on above: Performed By: #### 1 7520636, 0367218, 5647479670, 0117619474, 0916289296, 0928638846 ####[facility] (DEFAULT)[address] [place] [address] 22949 MCV (RBC) [Entitic vol] 78 fL Low 81-100 [facility] Comment on above: Performed By: #### 1 6061813, 7314849, 0920349262, 7759942666, 8853321927, 7164180891 ####[facility] (DEFAULT)[address] [place] [address] 57201 Platelet 267 x10 Normal 138-427 [facility] Comment on above: Performed By: #### 1 5857353, 9602275, 9892843891, 7560038363, 0150755058, 8890543079 ####[facility] (DEFAULT)[address] [place] [address] 22285 Platelet mean volume (Bld) [Entitic vol] 9.1 fL Normal 6.3-10.2 [facility] Comment on above: Performed By: #### 1 0906102, 6478493, 9062748129, 7792326108, 1277644842, 7020308331 ####[facility] (DEFAULT)[address] [place] [address] 75542 RBC 5.05 x10 Normal 3.70-5.30 [facility] Comment on above: Performed By: #### 1 9219436, 1390375, 4396801828, 1949990881, 9623002972, 4784434989 ####[facility] (DEFAULT)[address] [place] [address] 68490 WBC 5.7 x10 Normal 3.5-10.5 [facility] Comment on above: Performed By: #### 1 6931950, 8617538, 0980463952, 6150898991, 6146114154, 6894697050 ####[facility] (DEFAULT)[address] [place] [address] 32909 CMP Standardon 01-06-2023 eGFR Non AA >60 Invalid Interpretation Code [facility] Comment on above: Performed By: #### 1 6355317, 5353311, 4490766664, 7884627718, 8623682637, 2114904247 ####[facility] (DEFAULT)[address] [place] [address] 12208 eGFR AA >60 Invalid Interpretation Code [facility] Comment on above: Performed By: #### 1 0410633, 4143271, 5886962952, 1492097848, 9126098749, 2922897615 ####[facility] (DEFAULT)[address] [place] [address] 36966 Albumin [Mass/Vol] 4.5 g/dL Normal 3.5-5.0 [facility] Comment on above: Performed By: #### 1 3391085, 0886353, 4982383434, 2616560048, 3597982261, 9726855412 ####[facility] (DEFAULT)[address] [place] [address] 73156 Albumin/Globulin [Mass ratio] 1.3 {ratio} Low 1.4-2.6 [facility] Comment on above: Performed By: #### 1 7033239, 5254683, 1340460581, 8753199548, 2959562541, 4635852507 ####[facility] (DEFAULT)[address] [place] [address] 18039 Alk Phos 66 IU/L Normal 32-91 [facility] Comment on above: Performed By: #### 1 7492441, 2223212, 8882401811, 0485462542, 0833340635, 2004976286 ####[facility] (DEFAULT)[address] [place] [address] 24022 ALT [Catalytic activity/Vol] 21.0 U/L Normal 8.0-29.0 [facility] Comment on above: Performed By: #### 1 6090208, 8238356, 7400443516, 6899024412, 3202018086, 0370227854 ####[facility] (DEFAULT)[address] [place] [address] 06496 Anion gap [Moles/Vol] 9.5 mmol/L Normal 5.0-19.0 [facility] Comment on above: Performed By: #### 1 8197633, 4128962, 8209682712, 1336138598, 9087656769, 7556014059 ####[facility] (DEFAULT)[address] [place] [address] 03988 AST [Catalytic activity/Vol] 20 U/L Normal 14-37 [facility] Comment on above: Performed By: #### 1 2807477, 7983077, 4039464948, 4606474468, 1344298498, 0409463850 ####[facility] (DEFAULT)[address] [place] [address] 33891 Bili Total 0.4 mg/dL Normal 0.0-2.0 [facility] Comment on above: Performed By: #### 1 2318771, 1534186, 9032518103, 7770556282, 9951593314, 4824431992 ####[facility] (DEFAULT)[address] [place] [address] 70516 Calcium [Mass/Vol] 9.0 mg/dL Normal 8.9-10.3 [facility] Comment on above: Performed By: #### 1 5584777, 2529273, 1866184667, 5668662002, 6344864255, 0209826039 ####[facility] (DEFAULT)[address] [place] [address] 99540 Chloride [Moles/Vol] 106 mmol/L Normal 101-111 [facility] Comment on above: Performed By: #### 1 5307690, 2301603, 7102461741, 2962646334, 3625598522, 6772589983 ####[facility] (DEFAULT)[address] [place] [address] 48195 CO2 [Moles/Vol] 23 mmol/L Normal 21-32 [facility] Comment on above: Performed By: #### 1 6424321, 1261303, 7400991458, 1916233440, 5950776241, 4052468984 ####[facility] (DEFAULT)[address] [place] [address] 79615 Creatinine [Mass/Vol] 0.73 mg/dL Normal 0.30-1.00 [facility] Comment on above: Performed By: #### 1 3536286, 3457109, 7403731230, 9881347537, 5391744214, 3111814752 ####[facility] (DEFAULT)[address] [place] [address] 48935 Globulin (S) [Mass/Vol] 3.3 g/dL Normal 1.5-4.3 [facility] Comment on above: Performed By: #### 1 7458246, 0629012, 9991953232, 1192619693, 6949017511, 6152761353 ####[facility] (DEFAULT)[address] [place] [address] 54778 Glucose [Mass/Vol] 95.0 mg/dL Normal 56.0-144.0 [facility] Comment on above: Performed By: #### 1 8066792, 6812575, 4798885005, 7604551391, 8451096278, 7806890345 ####[facility] (DEFAULT)[address] [place] [address] 31396 Osmolality 269 mOsm/L Invalid Interpretation Code [facility] Comment on above: Performed By: #### 1 3380466, 1939834, 6742008269, 4146473485, 6073102549, 9658836360 ####[facility] (DEFAULT)[address] [place] [address] 24206 Potassium [Moles/Vol] 3.5 mmol/L Low 3.6-5.1 [facility] Comment on above: Performed By: #### 1 8265120, 3919496, 5299796026, 1330394204, 4191750159, 0002116852 ####[facility] (DEFAULT)[address] [place] [address] 55554 Protein [Mass/Vol] 7.8 g/dL Normal 6.1-8.0 [facility] Comment on above: Performed By: #### 1 0376936, 5800691, 6661121684, 6521089481, 9422395163, 9335428265 ####[facility] (DEFAULT)[address] [place] [address] 38997 Sodium [Moles/Vol] 135.0 mmol/L Low 136.0-144.0 [facility] Comment on above: Performed By: #### 1 3733249, 8191246, 1078264663, 0636116581, 6079336782, 2180697648 ####[facility] (DEFAULT)[address] [place] [address] 51177 Urea nitrogen [Mass/Vol] 10 mg/dL Normal 8-26 [facility] Comment on above: Performed By: #### 1 7113205, 7091890, 3303746306, 8152994387, 0280384745, 6651046920 ####[facility] (DEFAULT)[address] [place] [address] 94278 Urea nitrogen/Creatinin e [Mass ratio] 13.6 mg/mg Normal 4.6-16.2 [facility] Comment on above: Performed By: #### 1 3645939, 4995465, 5101155679, 5777753385, 9099993381, 2349923927 ####[facility] (DEFAULT)[address] [place] [address] 15765 ED Clinical Summaryon 2022 ED Clinical Summary [facility] - Emergency Department [address] [place] [address] 71282 ED Clinical Summary PERSON INFORMATION Name: ROLDANPEGGYSHEYLA FALK Age: 17 Years Sex: FEMALE : 2005 MRN: Acct#: Visit Reason: Abdominal pain; ABD PAIN Arrival: 01/06/2023 19:25:17 Discharge: 01/06/2023 20:52:00 LOS: 000 01:27 Check In: 01/06/2023 19:25:17 Checkout:01/06/2023 20:52:00 Address: [address] [place] [address] PCP: KEVIN STOKES PROVIDER INFORMATION Provider Role [...] Home PATIENT EDUCATION INFORMATION Instructions: Constipation, Adult, Klvb-kj-Rctb; Abdominal Pain, Adult, Mwew-ec-Ojin; Abdominal Bloating Follow-Up: With: Address: When: KEVIN STOKES [address] [place] [address] Within 3 to 5 days DIAGNOSIS: 1:Generalized abdominal pain; 2:Constipation Patient Understands: Yes - Patient/family/caregiver verbalizes understanding of instructions given Comment: Normal [facility] ED Patient Summaryon 023 ED Patient Summary [facility] - Emergency Department [address] [place] [address] PATIENT DISCHARGE INSTRUCTIONS Patient Information Name: SHEYLA LEA Age: 17 Years Date of : 2005 Reason For Visit: Abdominal pain; ABD PAIN Arrival Time: 01/06/2023 19:25:17 Primary Care Physician: KEVIN STOKES Attending Physician: Ean Solorzano MD Comment: Visit Diagnosis: Diagnoses This Visit Abdominal pain ([id number]) Constipation (K59.00) Generalized abdominal pain (R10.84) The Pharmacy at [facility] is open Wednesday through Wednesday from 9A [...] and/or drug addiction problems; contact the [facility] 07/12 Crisis Hotline -Text 6IMXI zl [phone]. If you received any narcotics, sedation, or [...] legal documents With: Address: When: KEVIN STOKES [address] [place], [place] [id number] Within 3 to 5 days Medication Information: The exam and treatment you received today in the [facility] Emergency Department were for an urgent problem and are not intended as complete care. It is important for you to follow up with a doctor, nurse practitioner, or physician?s educational assistant for ongoing care. If your symptoms [...] so we can reach you if necessary. [facility] Emergency Department has provided you with a complete list of medications post discharge. Please inform your date puller/provider of your visit and for further instruction [...] in fat and sugar, such as: ? Yoruba fries. ? Hamburgers. ? Cookies. ? Candy. ? Soda. ? Drink enough fluid to keep your pee (urine) pale yellow. General instructions ? Exercise regularly or as told by your doctor. Try to do 150 minutes of exercise each week. ? Go to the restroom when you feel like you need to poop. Do not hold it in. ? Take frlp-acc-mmltlwb and prescription medicines only as told by your doctor. These include any fiber supplements. ? When you poop: ? Do deep breathing while relaxing your lower belly (abdomen). ? Relax your pelvic floor. The pe (more content not included)... Normal [facility] Extra Greenon 01-06-2023 Tube Collected Yes Invalid Interpretation Code [facility] Comment on above: Performed By: #### 1 3728918, 2495904, 7967730962, 7312131476, 6127481713, 8458670042 ####[facility] (DEFAULT)[address] [place] [address] 73973 Test Urine 1on U Preg Negative [facility] Comment on above: Performed By: #### 5 2023102, 8934801397, 193811408, 2202025 ####[facility] (DEFAULT)[address] [place] [address] 73706 U Preg Internal Control Pass [facility] Comment on above: Performed By: #### 5 1436426, 9320215557, 271698347, 2066010 ####[facility] (DEFAULT)[address] [place] [address] 69674 UA Tmiil9iq 01-06-2023 UA Bacteria Trace [facility] Comment on above: Order Comment: Urina lysis Microscopic order added on by [employer] Expert Rules system. Performed By: #### 5 4032752, 0878602454, 998014198, 9683021 ####[facility] (DEFAULT)[address] [place] [address] 48895 UA RBC 3-5 [facility] Comment on above: Order Comment: Urina lysis Microscopic order added on by [employer] Rules system. Performed By: #### 5 9351431, 3730960705, 028329077, 2327863 ####[facility] (DEFAULT)[address] [place] [address] 89874 UA Squam Epi Few [facility] Comment on above: Order Comment: Urina lysis Microscopic order added on by [employer] Rules system. Performed By: #### 5 8334307, 6341546732, 719596087, 6098282 ####[facility] (DEFAULT)[address] [place] [address] 04072 UA WBC 15-20 [facility] Comment on above: Order Comment: Urina lysis Microscopic order added on by [employer] Rules system. Performed By: #### 5 4507285, 3662837814, 628469191, 3050155 ####[facility] (DEFAULT)[address] [place], [place] [address] UA w Culture if Ind Standard on 01-06-2023 Breakpoint UA [facility] Comment on above: Performed By: #### 5 0103868, 7610965761, 475631484, 7877632 ####[facility] (DEFAULT)[address] [place] [address] Color (U) Yellow [facility] Comment on above: Performed By: #### 5 0452357, 2392763663, 252338235, 8755013 ####[facility] (DEFAULT)[address] [place] [address] Culture? Indicated Invalid Interpretation Code [facility] Comment on above: Result Comment: Resu lt created by rule GL_MAGR_ADD_UA_CULT Performed By: #### 5 1011820, 8613775594, 625111226, 8172416 ####[facility] (DEFAULT)[address] [place] [address] Glucose (U) [Mass/Vol] Negative [facility] Comment on above: Performed By: #### 5 5753722, 1377951534, 175733554, 3684206 ####[facility] (DEFAULT)[address] [place] [address] Ketones Ql (U) Negative [facility] Comment on above: Performed By: #### 5 9346953, 5732584449, 320915398, 7066979 ####[facility] (DEFAULT)[address] [place] [address] Micro? Indicated Invalid Interpretation Code [facility] Comment on above: Result Comment: Resu lt created by rule GL_MAGR_ADD_UA_MICRO Result created by rule GL_MAGR_ADD_UA_MICRO Performed By: #### 5 3731622, 9125485583, 236953869, 6163171 ####[facility] (DEFAULT)[address] [place] [address] UA Bilirubin Negative [facility] Comment on above: Performed By: #### 5 3285444, 7943358488, 586640361, 0095881 ####[facility] (DEFAULT)[address] [place] [address] 10640 UA Blood Negative Normal NEGATIVE [facility] Comment on above: Performed By: #### 5 8550397, 5434510765, 111371596, 0498263 ####[facility] (DEFAULT)[address] [place] [address] 94360 UA Clarity CLEAR Normal CLEAR [facility] Comment on above: Performed By: #### 5 7171994, 4644281569, 773133100, 5852306 ####[facility] (DEFAULT)[address] [place] [address] 70277 UA Leuk Est SMALL Abnormal NEGATIVE [facility] Comment on above: Performed By: #### 5 4147823, 3802838728, 736091688, 3033673 ####[facility] (DEFAULT)[address] [place] [address] 09053 UA Nitrite Negative Normal NEGATIVE [facility] Comment on above: Performed By: #### 5 7284134, 9611880285, 266050297, 4913670 ####[facility] (DEFAULT)[address] [place] [address] 55512 UA pH 7.5 Normal 5-8 [facility] Comment on above: Performed By: #### 5 8001614, 6115775430, 872248807, 9785384 ####[facility] (DEFAULT)[address] [place] [address] 24083 UA Protein Negative Normal NEGATIVE [facility] Comment on above: Performed By: #### 5 6347201, 7602532387, 220164347, 7975567 ####[facility] (DEFAULT)[address] [place] [address] 48380 UA Spec Grav 1.010 Normal 1.001-1.035 [facility] Comment on above: Performed By: #### 5 7215864, 7249941956, 058234614, 5246451 ####[facility] (DEFAULT)[address] [place] [address] 97248 UA Urobilinogen 0.2 mg/dL Normal 0.2-1.0 [facility] Comment on above: Performed By: #### 5 5666260, 7229980482, 181946829, 8957626 ####[facility] (DEFAULT)[address] [place] [address] Urine Source Clean Catch [facility] Comment on above: Performed By: #### 5 6736172, 2752052521, 384892293, 5313144 ####[facility] (DEFAULT)[address] [place] [address] XR Abdomen 2 Viewson 023 XR Abdomen [...] Maciel MD 01/06/23 9:29 pm Technologist: ELFEGO [facility] Coding Summaryon 12-21-2022 Coding Summary HTMLBase 64 EuqtnslqLFt0eAy+PGhlYWQ+PE1 TMXZjS21hzOEkyF7gL8SBUBfBHv auDHTAXQvNIoLmwbMqFP0vkYKnB XJu IC8+LO1bEDElLwhcqFBcg4L3kOA 2I76ium4jOCpayZU4IHMlWfGlaq vot9zauUj1PRsyRknmJsTp RNYraG94EYL9vM38Wf86qOYxqNY dm5pcnPi4NbClYEFdINA7zZwiGN bsk9BuKGRtA54lsXZut2U1 WFWdkWtooXDzNaZigHW1sJ6wUTs mtnenx2frernuEsl5nr22rUUny4 W5iXF7Y7IesgG5AALbvAOn QvnfpLPIuB6atmrdq7xhbwcyOfQ aHLLeBCs4PUa6HXKveKhbFcXtED 33VHN0ETHietQzK5GaFIDr pOguNzY7o2N3Ek9FJ7FUKepsP2L NTUFSWTwvdGQ+JR14ze44R3KpXs rsOix4VSGmLPN9zRY4xW4x TAAkVQzwx1L9gJI8B9JxybPjlo2 ce6rxDPMvHWnjD84uvRBdh6Y7AP YbkVS8HNTmhYtaNfRokV55 Oyc+KWFfyJhxu5XdHrbsr9jvf1x jqJq1TndwPJLilgDkdDaqNQK0l2 SfXl2eJFMmpSX1mLD1iQ7x YoAhPmJ4WIfxO338UfMvsCTaKxi fC35tL9VzkVA+CKUxVve9RDSskV jiZL9jB8IwGRNuenszoFAw tYqgYH2mZKJqdkvqYIAfkE1iZXQ pG2l9UmUyVhA3GSumL4OsEVNiyf twAf07yR3sBzTkWbA2FNtl V3OvvhX9EOYvpTGeOGmmBQV5D75 rm7Q5FOYqXIYnLPN7mDH4kF1vkF lnbjogbGVmdDsgdmVydGlj IZteOLqkO477SNJwkPtyQuQmTZh uZyBEYXRlOiAgMDgvMDcvMjAyMz wvdGQ+ERQiXKL8tJqdRZAs fQPhSKyuFr6sfXspjHkzFT8sKKZ flwxbQPUvaX8hKFSbbMLwrRtsZE 4xUMLalmuac997DtNpBPS9 JWVyoMNqK7JzuN3dMtJbHXWiFUF nQ0YreRWmNUfbN475BVfdGrD4WE OhqoTuF1EgMAJobIoqXhL5 z3J2Pu6Ih8NnirrmW8BzqTTxEdJ uZeehPLx8D4PhDoappXS+PC90YW EvYL55BYd6BZY1nGtlNNxq NUShQ0PueW1vUqIvXXKvEXGcUxo +PHRhYmxlIHdpZHRoPScxMDAlJy YjaWrdEW8fNr3tWLLsIANw iXzzuSHeJkDss0dkAYFmTAbrED7 ebIyfT8LcwEG0GLSdp3o2Nv17L6 8rT8RhgTG+VIJnsHD6kAP8 gO8jXnNvGqF5WCnwL308SqCepUS kHtvqr8zvf7ewzGb7UcF3BPXxqs BrrVzzESH8e3EvSl18V41r IHdpZHRoPSIxNSUiIHZhbGlnbj0 waC4gIe2+LSGcrHL5qEA9uF1jPs XcLuA0RLahM458ZiCteUTg Jxrzr4wfq3mhoBo6TiLxQLEcvuR cnYikUQM4c4SiMb74F1RdtKpdx9 CrCln0oe89mCYus2X4iCA0 D2TgNIDipformIXciWtkRG4hLAU iwdttBSPwiR7jRJLgM3j1QqFoHv Z2ZRorE9ZfmfN7QMLppJBy WYQvfZJQhJ9dilmhi2nyutmvByH sLNCqWZv6EBz2PCTlpCcmDjIqUC R3BfR9RGN0mHAjoZ0bvArl pcthsW5mExp+OCN9tNWluODLXX4 lOjwvdGQ+ZRTsCOG7bHsnQUtvVL XnsV2qDLOsZ0z5VbPgHcT0 HPuuH4JjpbP9VRWxfDLtPSGdxVN ExP1bczmxk7pjltlvOaGjIRIdGK z4EOd8UHWqhQowNqJiXVE7 RrA4RBS5uPKaxA9cxOlnlfhtuI9 wOyc+BhdpcMjwGXL7PNy3M7PmXd o4EBNtuHqoDC9viYVsMKgt Sj1ogZqnmNzbAJ1tUNSbfjqvq33 8AvIek2mcJTYddJAtEGsyKOY9U2 1sj4B4BYFrWPHaRCQ2bAN6 vN2vjMslxuuusJVuqUpeblIauLl uKYweUCtpJ549IHMfqSqkAmBiVB k1O5MfPuy2VRFyzYjhSH8b rABgNAwtZi2vyOfiqLxtXY2wQTT bncbqw757DpFgk2jxGJXnjWFzGZ ofVRQ5X94yl1R1MQWfFPLo WWC4oJF7aE0xtAmndckimPKnnBo tceCvkVgkZQmmNPfkF221MOPnyH ppRkKqtHu5K8VaMnd6CKDa bFkoCR5lfIJuIYbcGe9aaEktcDd eFT4oNBQnurclx552AtJzd1eeVK NdoLQdSWmpGGC0H74px8W1 AIJeAYGfDQT4qLP1jL6faZcoksy gbGVmdDsgdmVydGljYWwtYWxpZ2 46IHRvcDsnPlBhdGllbnQg QEheXWy9Q2StXuegrVY+CT70YAR tIF20rQXmeCAri4snzAc2NkJpUK WdPVE7cZbiNHmtn1PxIDZj L44qeCFal8O5JIGytPmwqXTcEiO taJB0mQ2wTGjogerrx6opkfpvEk ezw3ljxz92gX79C54cIUuk DXVhWJDvCLDsGEBcvAhczq3ioY5 wIi8+IJMdqWP9tJJ5yP6xWIByUz N6LSrjE278ZcUezDSyPbpm x6dms8rwjUu1UpC6RPMsgrLfaZm sGWG3z7UdFf78T44kSWsyEZDpFQ QwSNDeEQUzuVnvgz6yhA8n Ii8+JYItaRP6nTN0bJ8mXfUbHsR 8MReeI213JsLftZGfLlhvZ85iQ8 JvdXA+TUVzQmt3TSRdtOrg MK6xbVFuBVqiRu6yQJH0TjRhNjR mPMlzJ7TrUYRygrngfvbqyIL2AA SzEWAiwI14Cr7rnChyZIAj eMGIxH5nifvhm3pvbelqDlCrORD eWVk8MQp3IYSpjZfaZoImYZG9Zm O9WQU2rFVvmT2zdGebijop cA2eN1VbEJQsxmzwJs28pM3aXuK pPhS8CWhbOqa+LB0OUSPLZBIqKE xNBw3CRCnUSGBZUQlCZR8D YddFEK49NO94bDZyu9N6bVX5F7C kGKLjfucrjykwfUA2VLRaQVAogE 68qBErPBxjEq9lq3A2w637 YZChOJSvuY08Sk0rpTwkNMZltFC TcO7xcddkb5orfxevBfSfDMRsYR c1JZk1RMZfxSrwSiVdIQJ5 WrO5RTO2vRJecS9doHltfjqbgC6 wOyc+MDIvMDkvMjAwNTwvdGQ+PH BkGZP8aZoyMHpiIVMkoC8v RXCrM5l0XdUeVcV1RNumT0YwQWN vacamUk93wW5sIoAsFaV3QNyxZ5 TcicZ1OECqrSWaJAckUZQ1 G28pz2C1XBRqOKDvDPR9vDS1qT1 hbGlnbjogbGVmdDsgdmVydGljYW ciQGzgQ681MUTjiVfoYrL1 NSbdKIMyPA45WK03hHIgs9U3xVX 8I2RmFPBobjaqpjngyHK8RKXpCJ TzuJ91xOHvWLrzWa5mc0A1 v390ZABwINElsV34Yi6fsClgLZX biLGCtY5qntnzh2lzyyksBbHfNT IfKEm7MVh5LDZoeDbpEdPt ZNL0YlW4MRV1oYHoaC5ddFqsvsc etG3jDzn+YbMXQTtJTM01PT18uT Hed0P7mFE7N5RqJCCxizxr eyuzdKO3OZSoXWDzfA21rSYgRSe kSe2wn0S7q420KAPdMGQuaW03Tz 8ksKthHKZexSMApP7rchaq z4mdhpebNvYiPOYsIRe2FVy4LVI raMlkBcBaCWJ3ObH6IDO5fYEpzE 2auNpmktecrB9cTgv+T1A8 D6WsUfzanXB+TX86ENNeJC69cHB kvRIyx7gswVi1OyEwNJCyJTE7gQ daWWpjr5YzRJElD61uvQHk j9P2CIDgeLrpqIWcKgLmrED6cW4 yDRxwecmkc2yfbjpwIdxot2isdi 55fR90C87zHGwoQKHoZFIk XFMmLGXvfLvbdj6qwB4fXz6+PGN cjMP7xQD4tC9oUnJvNsR9WEimV1 69MvYvqNIeUxfek3isf3cz aAk3XkPcFBCiybTmvFagQYN5f9F kWq65K58wJJvcYCKnNAAdDKKlRU JjhShutb2erT0lVd9+PC9j m7gjdx77bA31kXM+XYKfOPV3aDt pLZzxMRPouT4zFBthYuE8UBUgYu CrxR53uNHzDHdwRe5nbRqx eCgaTF5nYSCpzgktm920AjFrc7n aFZGbyFUrAOaeQOA5Y11vh9D8TN NrTVVbFTR5vIA9rS4qjHkb bjogbGVmdDsgdmVydGljYWwtYWx mJ903BRVigPrpLiKdeRSzQ7budj KBLW1yPvorfLQ+PHRkIHN0 vOojZGwnGJOxhH7zCIKeF4f2LeG gKgA4OOzlE0SwfoD1OUEanUZwEY KsaSZRaR7vdboik2wvqctb XkWaRWWfLAd1BGa2EIOglLupMvW gLAG3ZpU5MJR1vCJkqM8qtRfpjc zapI4eZds+RklOOjwvdGQ+ MUPuOLA7bQyeGUirHFYsmJ2nKGJ pY9p3QqVyHaW1RWqgZ8HafmR3ZV BfzCRaDSNggTSLjC1hzmcv r2wvsdqwGfLeEWApSZl4ZIi6TFO ljJejSbYsVKR1PfF8WGX1lMRlpQ 6kjFuxzpfdkV0mSfv+TVJO OjwvdGQ+NDOkUKZ1sWadPCsjYIM mvL2bCANaX9l1HrTbIsU1CVrqP8 PyrsD5BKCuoWWnIKMosGPN oJ7pjjljo6psmgkyKtZpXARnFRp 1GWb9RQHhxHgaEpGqMQR9TcI6MA F1wCTwuG0rwAjfqsmmqD1q Oyc+ZRB6ZOT2HV59AJ91H5PoHox vdGFibGU+PHRhYmxlIHdpZHRoPS gwEAHiNuZlpPnoJW0nPm4e ZGV (more content not included)... Normal [facility] ED Clinical Summaryon 2022 ED Clinical Summary [facility] ? Urgent Care [address] [place], [place] [id number] Clinical Summary PERSON INFORMATION Name: SHEYLA LEA Age: 17 Years Sex: FEMALE : 2005 MRN: Acct#: Visit Reason: UC - Ear Pain; RT EAR PAIN Arrival: 12/14/2022 18:12:52 Discharge: 12/14/2022 18:47:00 LOS: 000 00:35 Check In: 12/14/2022 18:12:52 Checkout: 12/14/2022 18:47:00 Address: [address] [place] [address] PCP: KEVIN STOKES PROVIDER INFORMATION Provider Role [...] Adult Follow-Up: With: Address: When: KEVIN STOKES [address] [place] [address] [phone] DIAGNOSIS: 1:Right otitis media with effusion; 2:Left otitis media Patient Understands: Yes - Patient/family/caregiver verbalizes understanding of instructions given Comment: Normal [facility] ED Patient Summaryon 023 ED Patient Summary [facility] ? Urgent Care [address] [place], [place] [id number] PATIENT DISCHARGE INSTRUCTIONS Patient Information Name: SHEYLA LEA Age: 17 Years Date of : 2005 Reason For Visit: UC - Ear Pain; RT EAR PAIN Arrival Time: 12/14/2022 18:12:52 Primary Care Physician: KEVIN STOKES Attending Physician: Chetna Rodriguez PA-C Comment: Patient Education With: Address: When: KEVIN STOKES [address] [place] [address] [phone] Otitis Media With Effusion, Adult Otitis media [...] weeks. Home care treatment may include: ? Ihfw-gsb-qrgnxfa pain relievers. ? A warm, moist cloth placed over the ear. Severe cases may require a procedure to insert tubes in the ears (tympanostomy tubes) to drain the fluid. Follow these instructions at home: ? Take oobr-bts-ybsyxrs and prescription medicines only as told by [...] provider. Document Revised: 08/28/2021 Document Reviewed: 08/28/2021 [employer] Patient Education ? 2022 edjing. Antibiotic Medicine, Adult Antibiotic medicines are used to treat infections caused by bacteria, (more content not included)... [facility] 11-13-2022 [facility] Telephone (ENDOMN) SHEYLA LEA ([id number]) 3 F Date Time Provider Department 11/13/22 [...] Encounter Status:Closed by BRAXTON LAMB on 11/13/22 [facility] Coding Summaryon 10-30-2022 Coding Summary HTMLBase 64 UnoyyjerAOj6qPv+PGhlYWQ+PE1 AXEFcU73zdQNdkM9uG9PGEElATi ybPKYYNXrKWyNullTqWH8yzEGwK XJu IC8+RX3zXEIySmvnnLCgv8J6yBP 8Y02hnx6oCRtvrHX0OGMtSmHayj fyu3icdPu6ASffCzseKvCy FHDhuH95RDX9vD81Vk75iTClyLJ nv1endYm2AoDdJMTrYBL1bScoII ipk7RgIFYvO33qbRSmm5G7 XCLfaQxwkUFjCqUwnBP3zV9nEXo vvklpe9vbbvbcRqo3mn68wTMfk3 W4cZA8U5QlxzK0WIPksYYp SbinyAXOcA4wbevtb7stxekuFpY qFVXcTFx1BBu9XLSqpRzzBkQeCB 03IZU7SCUyboEsX9HtVZZb wCluQwS3t3D1Bv8XZ0SYVyqtZ1L NTUFSWTwvdGQ+EG44bb98J8HfZs geCku2BCUsZDV2kAY5zO9m YUVkGIzvm7Q1wUK0C2IcpxTuzj3 ej3rzVGFwBSfeC50xbHOzx4Z7PO FciCJ8ZIQkoOokKgSzsB76 Oyc+WHCqpFypq6HdGhqsl2xge0r pbIg8NvecRRLwenGqnKcgRXC7d8 ObHk3cUGOqaOA2tIP9iR5n ZlPjFtW4EHziQ041EdFeeCFrXcj hZ67xP5KmgMI+YIKxXno7PODebW bzZR7zS2OwTQBxrpndnMJt qQdgZG1jQDVjkkppPJQrxD8xXNN rX6f0HzWjQyT1YFsdR6TxJDPcvl cmJl26jI1mWtSaUtW0ZVte X0QwahJ7ZUBgvFNwNJsmAQX8K31 li6C4HZTzXTUjDGW7yVQ5iI4bfJ lnbjogbGVmdDsgdmVydGlj FGmbSMmeN798UKQjcLlqGpFrCAg uZyBEYXRlOiAgMDYvMTYvMjAyMz wvdGQ+ERAsQEU5cIhwHAXm tBDxNDbkHc8twAynhIxrLT2oXZY vwcbvPETdqR9rHUPocVBlfCbvIS 7tTYTsjnegm505AwViDPG5 WJFzlNPyA2HlpG0uMqGcFGTmVJR fW1GehOGrSNwsY665RSpxVuR6ZH JoouKmQ8IhTLLtxHueHyR4 o6P9Nc2Ab7EjnoiaM5HiyAYfWyY aQheuCCs4Z8LwWpsvyYA+PC90YW BkXP27SOo4BOG8tCfqTQec AXArJ9AarX7iEuQsALOqXRYuZnu +PHRhYmxlIHdpZHRoPScxMDAlJy NjfMktOI1oDz0sAUCjJWJy eZakwIIoSmYth3rrYXZeKTnhCS9 trYlwJ5VfgBR1BNVev3q4Xk08E7 6sY0WldTN+OCMfwDD1gFZ5 dS9aUiZrPxA6OSexZ128JdBrqLL tGjgth3suv1sbmUs6DbV5DAUjdk EpqTodRXJ3h9YxTa34R78i IHdpZHRoPSIxNSUiIHZhbGlnbj0 mtA5rBv9+EYHvdPN7aPE2iK4aWz GdZdB3UBltO938OoZzbLLu Jgvkd3dms9uynDb6MhAlNDUiviX zwZuxJHC8d6KyTp92M5VbyQzrb4 LwNey2yk39cAPeh8I6nPD4 Q0FjJRUzennchSAceWljWX1fITE vprwlDJZexM8bXNFpB0a5JaTeFp P1BOljG9LwtaB9TPTbcUVg ZMHgbHTHoX6yagkgp8cnaxzoCsC xMXHsXWa4GMw8FWGcrVblDwTnUE E4YgN8DEK7qHKtgW6eoDbx wnmkxB9hBwj+WBR4cMVryFMFLS8 lOjwvdGQ+LGGrBXJ1mVqxGJmfFO XcyJ9bCGAwE6e9PvBaAiH8 VYwjD7GtkkU5ERZghZBdUNJdeTK NpL7ohcwng2ztzhakDaWlEJFkUH l3ZEc4XVUowIaaHvGsLBJ6 ImG7ZQM6wSPsoL0ewOndtviytI7 wOyc+GelywDfoXLF9TOj1G7KpNb f7AETsjEkxRT6xwOCpUNvx Bd0cdAcqzLqyFZ7kDOVooztiq46 0JeNqy2knXBDioFYfWEkjSJM7A6 4nu9F4UPJcHWIiOVK2hRG2 oI6duHehfazkkIEuoBlidtAesGv yJCvvOGenC843PNIgkJeiCtAaTK u4D2LsYyi0TQIlwHefWK4z rMFxJKdePq5ftGizqKehRK8tMKY nsbyki349TqGnf7agPXZvfUPaCC yxPOJ1G11ev1W8BIDnAZDb WKN6jZQ9pY0wsSngolmbsGIklWf ajvFnfBaxNGtnSBhqG427BKMatV mtBnRxaRz6V5GoFky8DNDg cApzSB1rmLNgBRdoAd6hsNzgsQq rJN4dMYLqnfoek750AkYsa9uaIH HimAGtRMcwREG3I02pe4A9 UGSaKATfGEN2bMI1mU2enBtxjde gbGVmdDsgdmVydGljYWwtYWxpZ2 46IHRvcDsnPlBhdGllbnQg WZmvXSx4T8OmCueuqCD+EL72GNE cNQ55aRDucRHpn8edtHv1PgKhYA ElZGO7jRpdQCexf8IuKQXw E68bcMEmi7W1XDHvbTjaoJEbQtZ ipVN5lA0iWObejrzlk8weonerIr zky1odnt54fF37J25rJTaa BZAdBXZdPQSyPDCtfSvfnb2vlX4 wIi8+RWKogPV0aLU6kP3vTNFrMg U7ZDwcA273FtKnoISwTcxx r5zun0amgBt7IjP0ECJsojSzhWf cGJD3d4SuBb48R09uNQpkNVNdIC KhSBUiPDZptFqupo3yvM6g Ii8+DINviAT8rOF5fV1cAaFzPaI 7RBtdI043PwEjbZHvGvxrK28nP7 JvdXA+KYNpPhr5JOJwjWdp HS6lqSQhLDcnKo2oIHH6YjAxJkW eRFtnA8MvQPBthfjypwpkqOR8XQ WfIRHwtW62Ij9gqNfwNWIy gOERuY9nthmon8mkygzqHdPiQPP qXCm0USk6HUMyeMsuAeMxMPM9Cc J5ALD8lPYjuJ2dtReemwjb vM4mD4AnWMIpsbriOv29pJ9gTeL mSoG3RMphTrd+YQ8HFQJWVQAdBZ sKRb2GWIfRUJTPGDjBQX0U UemQTB17HN42vGGct1V8vPC2V1R uPIYpcqzoqxamjVN9FFCsVGJdbM 52cMVoHUslHi9yp4R5d464 JDSlHJCfuS39Pr7zrOzmOCEsgSX YoQ3zikdhr2pmcfwoFpVdNDBeKT o7DRs4YNGodJwgWhYtNTY4 SeV3CDH3fZYgeB3ieYpukwbvcH8 wOyc+MDIvMDkvMjAwNTwvdGQ+PH BrLBU8iDktSIadESAypH4a UBNkQ8o0DlPgKwX1FMmdM9PsSPC moqcuKq29bK4sZnUcVlS2YGfbZ9 TnvnZ9ETWymASxRTqdLZS4 O38rj0W2OBOoZMEtTPS5sXH9bU2 hbGlnbjogbGVmdDsgdmVydGljYW ieUBzjF396HMRpiEndAaQ6 BSirMGHmQS97PA99rPBwg5E0jBM 3R5CeZHHgxybagugosDK8FVSmHC XuhD88lOXeZEctUj0xu0A3 o687RVPcUDFxwU54Bn9swNwcTHZ isOIQsR4ktuoqz1bkvyokJmMaIM XbTWd2FLu3JEOhmJhcQhGx LLQ3TvV7MOX5sWDsjL6sgQgerur psI7vFec+RsVZKWgTAK46NS96eC Bvi5U6yCQ6D6YrJLZdbwbi uqfwkCT6AZKpPSCahD80pBDgCIu gXe8nn1I4x873ANWkGCQnfW54Ww 7phHoxMSMteXFYpA9dykgp g0tieqnyBmIpIHGzUQx6XAs5FHZ mfZbqXiVxDBV6FkA4STV3vGMzyU 8stZlkdpqhaH3iIhl+T1A8 F4QfDoefkEC+GC70HRFlZC41mHL luFDwv9gcpYx5QrQdXKMvRHV0mK kdCKbpq3CpPVKhK40msUYv b0X9GOEzqKhwrTBgOfUhoYK1uZ1 vXRsgnixpr0jgxfufOrjzh9iosr 64jB85B04jBDrxHQHiSZFh MZCzAAXyyWaxpz2uxG8oTm5+PGN dkWV8vFT3cW1sKtNgOjF5PGzfD7 28VsGpvCHwKbxbu9osq2ml hYn4SiPqRXJjdeTfgMgvZVG0u1G mNn74W44rIDhaURVpUMHlECEuTF VtyBssrh2seG4qCq7+PC9j z9ugxe59mV52yEC+BQFuLXF7fGg wHTwdNCMnjY4uGEsxMsF8TVZkBn MdtM39uQNoLZksOb4ixTqk jBtzFF0aWQKixpmac771TxFck0x zCTSevZUhYZldVXR4D03sa6M3YP BfNRIxIUB3uCP2vS2imHxd bjogbGVmdDsgdmVydGljYWwtYWx mZ701VIRxoQmsFkCpdNJwH9ijxo ENMG8gEwqnhMM+PHRkIHN0 gOhwOUhhZCRbbX9jOQZlT5p8NsZ jFjL0HNwgR2DoaqI0WBRzqUNoYP AsqHMKtT5asqjwb6jmyusu VfWdXPIgROp8ZEm4PJIyrIikXdE gVXV9UbY2CPF5bBXauK5hcZxbdy prkX8kZds+RklOOjwvdGQ+ YAEqEXI7zQesLFolLOWqoM7rWJL pS9m8AhTcTrW9ITvpE2BsxsO4ZO CdrKGxGNKwaIKEnR2hcgxk c5rgydfdSoMvCZRnFQk5QQm3BPM byDkoEtTwGQO0CbW1WWI9eHWgmY 7dfKbiffgziE3xSve+TVJO OjwvdGQ+LIIsIPY9sPvuJBymACR amI5bAYQsI3q3SlBfBwU6WCfuC6 AyuwL6ZPGfmRFlFWAwdLJU bK3hvydth8ukzvmsGoKwTTBbIDc 0UYi5KCDffYlbQyJnGGL0IgS9FP S5uNDhuR7odZaqvvagjV0v Oyc+TXD9JDU1QJ84KF45Z2ZwJxj vdGFibGU+PHRhYmxlIHdpZHRoPS ryMWBgLbGibYjvYN3gZb0p ZGV (more content not included)... Normal [facility] ED Clinical Summaryon 2022 ED Clinical Summary [facility] ? Urgent Care [address] [place] [id number] Clinical Summary PERSON INFORMATION Name: SHEYLA LEA Age: 17 Years Sex: FEMALE : 2005 MRN: Acct#: Visit Reason: Eye problem; UC - Eye Redness; LT EYE PROBLEM Arrival: 10/27/2022 17:44:34 Discharge: 10/27/2022 18:25:00 LOS: 000 00:41 Check In: 10/27/2022 17:44:34 Checkout: 10/27/2022 18:25:00 Address: [address] [place] [address] PCP: KEVIN STOKES PROVIDER INFORMATION Provider Role Assigned Unassigned Power Ny ED PA 10/27/2022 17:45:56 Ellen Mac DATA DESIGNER Nurse 10/27/2022 17:46:07 VITALS INFORMATION Vital Sign Triage Latest Temperature Tympanic Temperature Temporal Artery Pulse Rate O2 Sat 99 % 99 % Respiratory Rate Blood Pressure /72 mmHg /72 mmHg MEDICAL INFORMATION Medications Given: Allergy Information: No Known Medication Allergies PHYSICIAN DOCUMENTATION DISCHARGE INFORMATION: Discharge Disposition: Home Discharge Location: Home PATIENT EDUCATION INFORMATION Instructions: Corneal Abrasion Follow-Up: With: Address: When: KEVIN STOKES [address] [place] [address] Business (1) Within 3 to [...] rub eyes. Please follow up with your inspector eyeglass frames or Dr. Mcclendon's office rafael, please call for an appointment today. Wash hands prior to putting in eyedrops. If any significant blurred vision, worse in anyway return for additional medical care. DIAGNOSIS: Injury of conjunctiva and corneal abrasion without foreign body, left eye, initial encounter Patient Understands: Yes - Patient/family/caregiver verbalizes understanding of instructions given Comment: Normal [facility] ED Patient Summaryon 023 ED Patient Summary [facility] ? Urgent Care [address] [id number] PATIENT DISCHARGE INSTRUCTIONS Patient Information Name: SHEYLA LEA Age: 17 Years Date of : 2005 Reason For Visit: Eye problem; UC - Eye Redness; LT EYE PROBLEM Arrival Time: 10/27/2022 17:44:34 Primary Care Physician: KEVIN SOTKES Attending Physician: Power Ny Comment: Patient Education With: Address: When: KEVIN STOKES [facility] [phone] Business (1) Within 3 to 5 days [...] rub eyes. Please follow up with your inspector eyeglass frames or Dr. Mcclendon's office rafael, please call [...] condition may be caused by: ? A educational fundraising director the eye. ? A gritty or irritating [...] in diseases and conditions of the eye (turn down worker). This condition may be diagnosed based on your medical history, symptoms, and an eye exam. Before the eye exam, numbing drops may be put into your eye. You may also have dye put in your eye with a dropper or a small paper strip. The dye makes the abrasion easy to see when your turn down worker examines your eye with a light. Your turn down worker may look at your eye through an [...] you start to feel better. ? Take xipb-mjj-iyppkaw and prescription medicines only as told by your health care provider. ? Ask your health care provider if the medicine prescribed to you: ? Requires you to avoid driving or using heavy machinery. ? Can cause constipation. You may need to take these actions to prevent or treat constipation: ? Drink enough fluid to keep your urine pale yellow. ? Take homo-sub-mmiklas or prescription medicines. ? Eat foods that are high in fiber, such as beans, whole grains, and fresh fruits and vegetables. ? Limit foods that are high in fat and processed sugars, such as fried or sweet foods. Eye patch use ? If you have an eye patch, wear i (more content not included)... Normal [facility] Urgent Care Note- Provideron 10-27-2022 [...] been selected or recorded.. Surgical history: Myringotomy ([id number]). History of tonsillectomy ([id number]).. Family history: No family history items have [...] given 2 (more content not included)... Normal [facility] Urgent Care [place] 023 Urgent Care Record [facility] ? Urgent Care [address] [place] [address] PATIENT DISCHARGE INSTRUCTIONS Patient Information Name: SHEYLA LEA Age: 17 Years Date of : 2005 Reason For Visit: Eye problem; UC - Eye Redness; LT EYE PROBLEM Arrival Time: 10/27/2022 17:44:34 Primary Care Physician: KEVIN STOKES Attending Physician: Power Ny Comment: Visit Diagnosis: Diagnoses This Visit Eye problem ([id number]) Injury of conjunctiva and corneal abrasion without foreign body, left eye, initial encounter (S05.02XA) UC - Eye Redness ([id number]) If you received any narcotics, sedation, or [...] documents With: Address: When: KEVIN STOKES [address] [place] [address] Business (1) Within 3 to 5 days [...] rub eyes. Please follow up with your inspector eyeglass frames or Dr. Mcclendon's office rafael, please call for an appointment today. Wash hands prior to putting in eyedrops. If any significant blurred vision, worse in anyway return for additional medical care. Medication Information: The exam and treatment you received today in the [facility] were for an urgent problem and are not intended as complete care. It is important for you to follow up with a doctor, nurse practitioner, or physician?s educational assistant for ongoing care. If your symptoms [...] so we can reach you if necessary. [facility] has provided you with a complete list of medications post discharge. Please inform your date puller/provider of your visit and for further instruction on these medications. Any specific questions regarding your chronic medications and dosages should be discussed with your primary care physician(s) and/or pharmacist. New Medications [id number], [address], [place] [id number], [phone] moxifloxacin ophthalmic (Vigamox [...] a c (more content not included)... Normal [facility] Coding Summaryon 08-06-2022 Coding Summary HTMLBase 64 JwlirvhdAHx0oUt+PGhlYWQ+PE1 DMBJeM80deKIlaC3NF8pLDX0URA RQFJVIBX0LVO0ibWG1EYjcO3Gky iAv ExfeqDReVU28ERo9SIH8gNwvJFq xzH8fyHHlC4h1RcMvLU39cB75KI qrNVQtTrI0KvBlanlazVDm P3qdNzLukNHoAfv+PHRhYmxlIHd hRKMxGEajHYXbLhFxzJjgLC4fQf 9yZGVyLWNvbGxhcHNlOiBj k7kbYLFiYOmmIU8fuNbmK8ColJE 0FSQga9i4Js00hBR+MOLvNSJ1oU meXXlwf280SrUqe2lsSNM8 cOMbYHucWGE7U01gr1I4PDEsEXM yKOQ3sKA7aJ4pjRvheuxeQ5OkiE AuLaN4ALZ8bDIrtD7mwOdd ywpqmQ2mTdn+W35XAO9BESYTET0 WPqh0K3MnGtwqqOP+EF72UJWwYF 71cGTymFOzw6oxlBq8HsMd LNJfHTQ1qPbuGSfxg3WmVJXrT07 xjQOwc4K5PMYegBcryAKaQjSliW U6lC3iLKeyzfccr0xdhvkc Aobdc4sbig04mV16A72gMSvfSEW fAGE9EFUpRXXcnLxaem0hiR6cYr 8+NKgdd2qzd1mhqWe7YtEv MWBkjhTimYyyOPV4u5EqMq19R3P ohNyvc8EsSeh3ad19bRJiz3P2qV Q0RCraTBSufB6dKRfyKkP2 OMMbQwEugF39qMSzVJorZr8aiUv crWnsCJ2zMMIirlzgIRSxvY4uSH RvlGVghXukBC9zDDMwipwl x781YxCvYQY1NLYudAMzT1EqzE1 pLyOtICEwEIPcL6KscSFjWUnmS2 06AJooOzK1UDDnbyInT3Vc JTSjyOceGaS0n6W8Sd0Qm1Jtzjh aHBC1DAwnCZHvBbGhHnUaLcR5V7 ZwUmn0DLMhdQvmQO0zK2Pt PFKqcrtgztqzdHV8SPSdYZXvsV3 7tDOpVTsfQi3qo8N6t072RKTuPA VvaB73Jg7weQmeUFDkvTKX dW3zufneo8zrjylmJnNtURBgMOq 8QXp2CPIujZqfEeQtTUV1OyH0LC L2mDYymI7meDtmtdofwS7g Oyc+J04hyZ5aFGT3XQC7ndtyMCL xvsTlBI09LX33K3AkXsmdmUMerD U+ZFFxwrSfxHozUM2qHbJd d7tda9BrYZwyP8CdNSPxQAqwGak 0FQTwSIU7bHH9aS1aAAQuGMgyp2 V2yYK0K5KwavVnrq3ow3si RTNkBRgcR16mvNPeq7S6XLXcuBF 9BALeoHdnVyEwwL20Bgn+PGNvbG kxs8XdHswwp9epm2fofRw1 MdJqTFNlouYtaKczCNK6b4JoYx8 8D09cVHyhPYVrRFHxFIGoQGQimZ xctm0moK8uLc2+PGNvbCB3 fZG9fZ9xOHUsLxJ2GMyjZ060EoY gmEHqWccsw9avl5heaHj4GxWnSL AxssZtdOywGVH3q7OsEo91 G49dBRniHJHzLRXyKEQqQTQenVm wka9qiS2kRl3+KE7vq7zswl76cQ 48dHI+CIOtHKD3hMmrBBnn QBFgfA7sVRslPeF2TBGdMsZobT5 3dCBqYYwiUu3avRxntGibIN1iZG Tkilncg910JcUmd2smPFHb jRIbQXvjIRT9U34vl0Y6CUBcZEC mYGA3lKH4iV0acSujssldeSNkmI tcdcMnxXusUVrgUEruU360 IHRvcDsnPlBhdGllbnQgTmFtZTo 9Q3OyTzv6RKDyfYswAB4lzRMjYN igQf4eiHikpQtaQM7nJZMf ycnuf560JsFdf2hqEJYpqYWeMJu dRJT2G48yw5C5CYMqVJElJGN4mZ I0uX3gdWstrfvtnWNrkHdu btArvDtuCLjyQWnzG640BKTvsYd pOkZrnrIdKJDywWP1IF73AJ56vO Zen7D9eVQ9F6WcICZpigvm qruydCO2EQDqNQJshZ49Rt3imRe wVa8hFUMdBRW3DVMbyKFfG3MqbI 1dTtRxFGCjTBZuQ1KrxWJs RPfdJ417TApqFkP4NEJmuqTnP2Q uZKRdzFqmCfA9i4W4Jc4VV5Q4EG 97IE15qJJlc4L0mSP2X3We LWAsjomxqnlltFZ3EIPrRGOufN0 7No7caIrkCi8mGVXvKYF4PVYteA LdN9MhvB2qJwSmZXOeWYMs U8YzdMKbHRhiI537USxvEpU3JJF nvwSeN6AiSKYoiLrnDtN0u6U7Kl 9KMLd3UA53WN67bXDiw7P1 tYX2E4ZnPQCvsxvmojvkcEX2SBQ vEKRcjM80Ke3xnXjqHt2tPLGoNZ N7EXUugCFsY0YyuJ9sYrKq JDPfWMRpZ8KelYEoHPvaC445HFm eUoS0GXEiysSzN0IkCBNgwAbzLg Q3a5B9Gc7WMRYlCN56AMN4 rPG3WL41OQ27E6MxRfgjlZHmpOY +PHRhYmxlIHdpZHRoPScxMDAlJy YvnWvyNG4dAt0xBNNmFWFu fFavjUGzFzPvc8tpLREvYAwnQN3 vaRqhO5TqpJZ0PNFnr8j2Wl29V5 9qN3AjbVU+JAUvdZQ0fCE3 fY0zQvQmDdK5SAjrA520DkFwvYS dAwsod7wed9ektCi0MmA9NGShdc MvhYmaTZO4c4GjBc63W14t IHdpZHRoPSIxNSUiIHZhbGlnbj0 otV7lMo7+QGAokJA9qKA9qA0dFf JaWuK1VMnyL635FwWysOUi Oqpgr4tba7kdvIr8RjRtBQRimfD hhBocFPU3t8UrEx01B1QtqEuur5 SjWld2bu92dNCqn5D6wQA2 R8NnHVFdbslisVAoyVkrCW7fJKT koeuzNOZvtL1jDNIzQ8p2SdQyJo D3LSqgC5XkylJ3UHLcfVEl PSuhQUZ2I24vf2C8MQOpKOSuZDA 5zEA0jF1lvPgbuutudMPcfZyvhm HncVlwSZxpTDuuT537OMHw sJuwJAIamY3jOGHvcEMalGslLS4 zHSUqtuxaVkvXXqTAH8TBVLPLWW 3HNDATJ4TDVVhVHTVUJMFF RTwvdGQ+BBMiDNS6oRukTKqlZCD nvR8yVMLqZ3x0CdNdYqW0VXkaM4 HaOVPiqownOp86oE4nJdQa HvX7ANcgH8DxymE2ZXWlpFHtZGy xCGQ1R93vx0M1TSJeMHXnIJN9vJ H6qK5obDdohfchyJRseCto bgBzzQrhAEgvTKxzX827KMPufEh aSbIrVsZ5BwCxJRO4Z9AwYhq9XZ NvyWfhQH0thMVeVPioZq2y fLcukOrdNE3cAQTxbruaYYObsF4 fBCGuoBOgbVqdGL2vRHBypdjlm2 27WiHvOSJ4QCZwiQPvB1Bi pP8pCgZcBIHwESBgF2AffRWqSLu rI096YEctPyE7PJAkpoJtU8FrCP MnaQokPxT1n3V3Zr1xCWCM ZWFyczwvdGQ+HMFvAKA5mTyjYMh kIXBrzG8oCZOfW1o2QvTkNzO8JO xwU0HfCXCatqwwIi90qT7p CaVoNkF6VPdnH2NpxbD2UWMrqAS yTFcfDYN9M51ji8U4EHBjTPIxAX N6mDH8kU7kdEubuvbmtFOg aCwkisSucSbuNOwoKIctO501RXB vcDsnPkZFTUFMRTwvdGQ+PHRkIH K8iJgzHEcuNHBugZ6zEBQe L5o8GbZqQaO0YComG9JdTEOzttl fYr64aX0gGyAjOpK9ANjpR4Iqje Q4JYNooKQnLZflMZX4Z91i x6A8FESiWXFwTQP1hNG0pP6plAx nbjogbGVmdDsgdmVydGljYWwtYW uaK617BNDbhFxoVu7SKH58 BA93F0NqEgtnwZEbrKW+PHRhYmx lIHdpZHRoPScxMDAlJyBzdHlsZT 1rYb8bNPIkETNelXnimCNa ZaVtd1dtAZOfETetUS9uyShjK8D fyUH2OSHvu6u5Km64A12qV2UbeH A+LRCtuHP1gGQ2iK1mHuSf LtR4TMmeY337DtEboNCzXiexn2x ic5xxmXs5EeMaREZzyuZuoFdmJI L3f2XbCb45Y82yJDqgQISl KKYjBQWpQESgyDxarg3zxT1lZm6 +YNFewAM9kKD1jI2pGnCvUdN4LO fbF837GsLfjPHxPyfgN35m J9XznKU+WMMpBsx5MEPifZkiQH0 edLSmHRbsRd4fBMN9OnOgTdIiQT saH0MkAEBhsekyjbjdpSO3 WGOyKOMpyL06Ms5xjTqrAp0zALS fXYG0WLDsdPXkN4LdfA9lJrXnJR YoPPZcW8DsvCDvRSwaD831 LGtmUqL4TPGdibHrK5VvKNYdbIf gPxQ7l3P1Ia1FcLovbWCuRU2xSj LnEIg5B2WoRhm5YQXhnJhn YA6hbDFzOOcxJz3gvSqjaFmmOV1 gQFEgakmwf549ZjTlt8pzMTPmiA UeRXynNJZ0M00mo8R1DHTk WCVcGHV3cLU3gI5qsLdfiiuojAK btVusksTxgXpmJMuqTYczK496ZS PvvIvkIrZEFlw7U0BvIhv3 NLTadPudVK2hfOLpAOhdEx4yvUn hpLctFI1uJLUfzsfmw644YcAsi7 pcJGOxoEPnUVxyBSF4A15j y8Q2YCKcKZNoVOJ5oLK4gW1maBl nbjogbGVmdDsgdmVydGljYWwtYW qoJ552JHPjzHqrNj5LHzq6 P9TbKkm2KOHojAvfMP2pbMCqDXo jPw7clKfzeHmqNI8gBTKeymsjo8 20NkIyz4gpJPUewQMiYQwg FJI1R85lc0Q8MYBvBCAqSQJ6lEH 7uE1opKvuzukhwQRxpTrjexZobU xdBXokBNjtV574LSGgoRud PlBheWVyOjwvdGQ+MU22sk83P8X lIqbwJpc1XRNzCTC6vUG9bC6sNT LyBVwvz7O9xOH3Y4YwrsPj ci1 (more content not included)... [facility] Coding Summary HTMLBase 64 QkygxhisMOv9cAh+PGhlYWQ+PE1 FWAOzW47gtGYbwU8ZQ1yQFG6QBM JBQJBMKN2DKI2vqWV0HDpaZ3Fjw iAv FfjmiEFcNU32VKu1JWS4xJhmYAf klM0mmHKgT3y0UgMeCK71bV73SU soWCQfEhE1HoQeoawukURa L6ekTpQyxAFrSfg+PHRhYmxlIHd bFDHpNNcxUMMiIoBuoFibFZ5zMo 9yZGVyLWNvbGxhcHNlOiBj n2mqRAKpUNgoJL3hsIptL4DlcHB 6IWRtc2x2Fx83lPR+ZDNlAEP8lW vaFQkah777DxJnv4sjKTE8 iRSiNLnnCEX1U41nj5T0DHBxUFW rQEY9dDT4gT8jrZiqlzkxK0JpuW PhRwX0RRH9aGUfqZ8xnSdr odvqgC8nSze+T29BEI1ECKIFFS1 ZByw2Y5YtYvljwEN+IL89BFDgEI 57dAHrsNAky0cblVg9QpAe BPZrXIV0bPsoVNtfk0UiBWWhC23 rrWJuf4Z8MBSndOcwxWYzNxOeaM C1fI2jSQndwarne8sgtagw Zaaop2glcq02sU12K58kNRfcMHJ kRZL1CECcRZNiiVbhyh3ynK2sKk 8+OUmuj0owu6nfgIi8HsTt QNVoliOhzEalATM6t3NwXa87U2Z ieLzrd2AvXtu8kr39dTDpa5J5vC S6BKheTEDadF6gNFlwVtG0 VBDzOfIkoO40sABcVDiwMh5naHo puWsvQY4pPYMfmbgsOKQefS4zGS RzqZIbxPbxGJ5hFHUcugic c470WbPtAGI4EILkrNDoZ5RigC2 sGbJpTJFkSZQoI0VwfYLaEZssY2 17QSeuMiP2DLWymdWmX6Za WDHqwPddVgS2t4R0Od7Ra5Viqpx vSFR8AAgiWIDeCsViDrBaPrN3V5 MiDat3YKOzbBgkFI9uV5Sv UZQjmozfsdboeAY8JRTsCNUzlG0 1oLIgZIwwUe4nk0U9m148QRPrPR QjuV52Tr3faFxjJRTtdJCS nQ5lblper2ztvfnnNkGjPVQgOUd 7FVb8QNFmaGxeGzHdDEJ4QgM4LU A0rDZptM1ydHexbbaswT6o Oyc+Q55wgW9tKUQ2XDC1ntkuOBH vkwSrKQ93QE92J1HnUgjpiGWmyM U+YBIsaxWktVxjXY6pAiUq v8idq0PuBSxzT2YeLFOoYTnuHbf 4SJYjMCS7eMM4hU2bYCUkZQtpa3 C4lCJ7U1HgtwWwls0wx6dx HDBzWYswJ11oiWSrg9Y2RSWmyJH 2BIPvjYuqJzVmeE45Vig+PGNvbG qme9MnQfrlp4qcb5wqhXm7 ZqNaKSThfkZcjEzdYTS1m1KnHf9 9R93kNNkpBEJyRPLrTJBiJSQknF mdof2eiL5kUw8+PGNvbCB3 bGJ7xZ5eMMXlLcV0HEtiO936UuE sxVLlVacuc6tcq6dieKy9DkUxIN OwvbKehIfjYFP4y9JqDx50 H72cRHiyLPXyCCCxAFDdPEMcvFr ycp4xuB0cXb0+NF2ce2vnya18oV 48dHI+VLTuNSM6rOufMAts KDOoxN6xSIslOgU6QQLeEfCwbG8 2lTRpGBwgEz7yiLdndTvnDK5aFJ Slzmwkr078AkFmr0djWGYh lVXtHAnaHHK0P53ga5J7LAOoZGE tISQ8eYJ4gQ1lvOupuhlkiNDmfT oogpVcfScpPQbqVBdfD782 IHRvcDsnPlBhdGllbnQgTmFtZTo 5Z9IbJtx6RKXyhOnkXC8flYEcBW egTp5ljSeipEbtGT1mFABf infnv775WzDkz6efBFMgrVVdRPd zTKQ6X41tj0X0ACUhGDMwJRE1hK B3kJ1pyJiuviszkBBkhCry vkFusIeqTKlsRAjlS577OKShcOm rPhYyplTdUZMkxRH0QN81MP51kX Woh3A0eSB0O5AcICMoolfi clxgvVT5IXQyIYVttQ60Rc0lnCg sRn4aCBHfKKI1BCLjfZCfD8EofI 2sZgGfMEGdGOKqI8QesLDr VKitC604WWrqVsG3NMXmdiFsD8Q gPOAhlXcgZrM3f2C0Zf3UA7G9EM 63GY21fKKjl4X0jDA6L0Fz ICYjuwdsevwnrRP8GSHdCFDgrN8 6Lb2kvFonFv5iYMRlHYK5WEQbkU IwO5VeuU5dNlRrFJTtPBUm A2DdcSYwVHjuC914DJwbFuX3TEI ncoFfX3QvNQMksHenJyR5c4A6Hz 3NDSw5VK82BY42kCVdx2I6 mEI9F7BsIBSzuhanejmixKA7ZKG oOKNgmP53Wx3vsAvvHk2dGEXtFD B6JLYegSKrO8DilB4tQoNd DMVpNNDsH6YqxMDvFZvnY882MZr gUkJ0NDXlgnRtP5ObLEJgzEmtCe C3a8J7Dz7PNPGrOG63GLL5 tLA1FW18ZO03P4UfKiplhIDryCK +PHRhYmxlIHdpZHRoPScxMDAlJy VheSmzSM0tYv3dBXPpFMBk hJyglSOcNtFbe6xcOIBvFGnqOB1 lpKmcM1QaiXR5UIAqm1c8Eh05A5 4zG1QiqIU+AYSjtAQ7rDA8 kF0uShMaFbV0LPcsW974GjRmoZM eWanyl6ove2ljhTu2JbQ0VFQgpx LvgQbjTLJ0a1XqOx74J62j IHdpZHRoPSIxNSUiIHZhbGlnbj0 jrS3vRq6+XTXhdVS0zTN4fQ7dAx UeBsM6KLhrZ094TgQepCNl Pribz4hcd5vqcLy4FlRfJIFuhxV slWdxTQY7z2GkBf32Y5CvgKrua3 JaRyu2vh46kCCiy7J9qYU0 P1YvZATzqpkwsSVurPikHY7nKSZ ikjzpCGOaoV0pMDAcJ9d5UhLlBy C1ONuaY3OmhoK1KPPmqOQc WOdoRHT9Y41ie4L6IDMbYLSeXIY 8xWS1qM6ivAnkmdnohSMdrBhymm UrkZrdRFvwXSexY837HFBd lXfqHIDaoU9fKDXywSYixSioDS0 dHSSmfphqOufMExHEM4YGBAODEL 7ARLVER6MBSCeKYVBMJXAK RTwvdGQ+EPIzDLM9fZdaGUjnEMH tyJ1fCTHvH1p9FrWoTkG7HFfmV7 SrLFMvxmtjPg62cV6vIrJy LuR4PXnyK3GzlyV2QBMfmNFhZSy jJUS4A51gx4O9MWIiPRHeJDK4pZ R9iG4ugYrtwugneGFejDmu cwGlgXljDOpvWTsoF545YNBcrYi mOvUmBaD8FeMrSYK8M0NsRwl9ZP QejIlsXR0unILaJYdsDm8b xLlxjHdwKW7lKXDxkuqgATDxaO0 jVKFvfXCbpFlvKS8yIRHonxjqr5 61QeZnLTC0QAUbgUZlM6Ng bA8nBuZnLNSoHIOfY4DheZZwAQd uJ038NTsiQzN4GUTnrgUjC6YuAW PprFrnEeS9h3F4Te8lFJVL ZWFyczwvdGQ+ZMMuAFY0wTmzSKc tFXGbtL7eKKNhN4g5IkWkPtP3DO jmO9TfHORveshzBm35kC9n NsKgEoC9EHudV9JdeuB7WMOkoCR hCQlyVVO2G47ao5T3UBTkOUCjBX N4lVF3aQ3mkYyqwzciePOn lPsjcdZhpAvmJJatYLjcD545SGL vcDsnPkZFTUFMRTwvdGQ+PHRkIH O2eWltTUlqNZWykD0uNYVn X7q0RhItGyT2QSjkT5QbTEBzzca fEx18kX9aBiLlJgR7FOurM2Mjcs W2OETvjFDdFBabTOB8N08f a7G7BNNlJCLeGZK7qAJ6hL8bmRf nbjogbGVmdDsgdmVydGljYWwtYW saM324IVDcvLeqRiBwSNMv DS3yoJqamQD+HE14vz88F0SnTmj mZan0FRMiOTI7nPO2yJ8mQMHqKY zhz9Y2yCN1S0QbjjEwnq8d r9omTFKqTTxuU09fzQLje4H6XFZ nlDS9CZWfaEywSaGcjK28Far+PG PidPjio4HeHiynh3ejq8ca bEi8SvPeCDSdbyCqeOjxZSB4e9I fAy86Y26zGYyqKWApZZKmCQHoER SucHejrs3zeX0pEy3+PGNv dTQ8nMO2oH4vOhGgUxL2BJknZ39 2MsDajRRpQjbbk1ljf4xqhNk4Vz PuKHTnwiOfyNvgUKG3h0Dd Rj28Q6ThyXbbq1TdOwr0gr57xYA pl7L1zVL2M8LqIIOgjkztlXRpiB bmGW8jMRFcefpvTGGblV7o OCShA1c9MeMaEiF9PGsgN9ErnlZ 3ARCaxNQtNSFvjDQGkC5wskeeb9 ryftqmWoSxBDMzHNm8JAt7 UFXirZknKzBqSYI8AqB4FKO9hKX ruV3jkNbbhckkuM0sQon+UGh5c2 ojaMRgNM4elQE8ER59KN20 aODtj3U4uFE5J0NkVUYuinoxwdv kaAI7OKTcDSBgfT35Wr2qoBcaVh 8wNPUbOLM9NOLuxJNiO4Zv jD0lTtNlEHCxZVFqZ0LaxFGxJAq xG073AVvlGiY3NNVluwDmL5LuXO ZotOmxTfP4e9X6Ek6EJD46 XV42IH69tGVfk4W0kSX8L0LsPGG ipkqvvsjxgOS6PJIhMACloV78Er 5vjNesHi1zHXLtUOV2EUJd bPUjD8VpkJ9gVxHsLLEzWZWjS3I osIPuVJmtP485HGgeVaF8QEMxvt QrW9RrVADlzXjuSgB5f6Q8 He5RZx71XR53AX25mOBcp4I3tQJ 1X4HkJABqsmurfijbrRF4DCIwPR OkhG32Er0lcMetTh3nGDPm JCZ4QKZauXNlA8RjeK6xVlYjPQX bLUMrE3WbdSGwZPgpK911BLbwJx Z0TGUjqzVvL7SeKVIdyFon LrS2i9J4Bx7HXMurmyq9B4UbBbd vdHI+HO63VOLfCY83dKIgsVOrp3 bvqUt9AxUkKGWrIEK9fOmc PSd (more content not included)... [facility] Coding Summary HTMLBase 64 WbewluseORo8hDh+PGhlYWQ+PE1 AUMTbU20feTYzsN0YN0ePRT1MJG XLKTMORA0CSV9slDU2OFagC1Tah iAv UaeiyXGwHI36RMj6VYS7hUpwULk tjH4slLCaG7p1FhFjGC62pW89ZL ovKQHwEcW6ZiDzstmrpCAr L9wmWpBgyYHdHdy+PHRhYmxlIHd rJTZqGAyfDCFzGcKykBusNL8sFg 9yZGVyLWNvbGxhcHNlOiBj f5hqMKScTOlgMC5txMdnI8HfoNJ 5EFLug9l5Qo99eCC+XDOvIHH3lQ xbODhfw970KaGtx2vmFMU0 iYOxXQigYED4M98hx1L0XPFuVMZ uIRR8dFE1sR1rpLerhsecR6VinD RpBxU7AIT8qPTouN2buXgf nkebaC7tDlm+M29VTH3MFOVGMT2 VHrf4R9PaXafdiJB+AI51IYBmFW 01zEFniESxw9ywjUw7EmJd HNSwVBX1pUmjHNlkz0AfPOTgW39 pvGVfl8W8KHZigRgkcOPjMvYjrD Y8xF5uFNvrjsqdz1khhxqc Gvjhf3yjkt56bT77G20lAGgoICB yUMT1YFGoHQVriBkmop8wzM1oEo 8+IMnxo9vol5qguXc2XrFj BFNejkKmbMfhNUM1q9ByRg75H0M gxQhsc9UqJyg8jn37vFErj5K2iA J0CVhoBZEthT9xOAtiHyQ7 NZCrBiFezH31hPLqXOihEu7twMw jcPreDU7mKMDahqpeETMbtE1jGU HdkUBlwSyfVP7mDPLhjkcm b290RbXxCWS5AMPycXQaX3YmkX3 bYbClILZuYZNbN4GywLWlCJbbE9 47MLciMmZ7KYDoorNmB8Do CECzmDxeVyM8j2K5Ad4Zu4Ibvja kZCP4FVrvHNOoMsGfZqKvWdS5X3 ErRwm2SDFahFqcER8eT2Dp SMKfoxuqiblqbHS7AIJxTTAecR7 5uLGcHRxcZi7og4R3b053KDGcHI ItjR91Zs5ulOgnEYKfvYTX bC0xrkkxn0pvrjffYrJhHNQdHGg 0REr0LKYszMgeTfMwXTI4ReM1NR M9dHQpxK0phQottmjjgM6k Oyc+N53pfQ0wZJO1JUG4banfDKU fpvAeTS30LF78D8TfHdsvdWUveI U+IZOepwDtjQrhOQ4nEiAh z4ytq9FeTIpjC6UqGMYlQJjwJuy 2RXSoMVG4tGB8nL8qZUCiUFagc2 W0hYP5P8ButaLtaj1ea6ea GGAiERdeI62bfTBvp3T1AOIvxSV 6UQLocFtmTvDsbB26Gme+PGNvbG lkc2YiInvum9kzj1bwaSf2 VxLxCSLulkYrgAlvIOM5s6WjKc4 5M17eLYkeLTTkHGVtNMHyUEKrcQ rmsm1peY9eMr2+PGNvbCB3 dBJ6yY9xTVOuBlK1XCqzQ510BeO rsKDyFwkjd9olt3jquGe5CpVgLQ XeyvCqrEabTRI5v2HhYg20 V75eBDqzYHPtINLrVDJmOIZmdEg sxy2jyV9oGw3+XF6sm7rhyo91bM 48dHI+RJXuTQB8wXtwAFhb HSRaxY9cKXrzLhQ9ZHVyUuEnvY6 2pBGiUOtbZg3zdKkgwIsvHG4fCJ Fzbpssb712WwBae2ryHTRo nIDlWZjaMAP5E03mr9Z2IQRlKHF iJSF3cIU1qG4ufAmedxlghSGuyK wbbmSpdKhxOVenSRfpG752 IHRvcDsnPlBhdGllbnQgTmFtZTo 5J6SaZjt1FFWhxYmdAL2hkRJbKE dnCk1seLqmjLceSS3vBWVe gzyhc222OpIqn8giDMDqwUMjHXc rGUE0H64zk5D4ZLXcNJPrVXQ1iZ S7qR2lsKiufzaysCCgfJft ycJfsJvkVXxlNWylU738BXOoiGi kZeDgapEvLRQscYJ1HM51ZT92rR Ine2Z9bKZ5Z4XpOHTrwfwq uukudWW7TBGbZPRavT57Eo8mpNg yTw3nJULkGLR6SRMptWXbM4RuhI 4jClTzHEKiYPMfB9OmfPPk IPciF619JCzgNwK1DVAztoQmD3R mZENvySkgZaN6j8F5Ry0LS2I5MG 22DQ27vLJye5N7zPN8P8Rw OOFufxkndiradUU0BQTyNLRlcY8 0Ip4ldZflAz4vQIGlMQZ6PIToaZ PgS6CrtB2rHlCjDRRxTSYy Z5KzmPWkPGkfR780VYojIdG6ATT kpeJaE2VsAULfsGqdLiP3t9J0Zc 7SYXs4DN79QH16yFWuy5H7 hHD2W6NuBXPqkmjkmypxgPG4OPL vKQFfaA22Je4pzDuqLo5pJGExDO K5TQDnxCPyP1SjpQ4oHdTr YPRdGMHuN5CytSXnUOctG981GUa gHbI6JXEaeiOsZ4BnFUBxwQbuTt R2p9F2Iy1TJHLhER18FIT5 lOI6OT96DE17Y2YjDmpkwUStdOB +PHRhYmxlIHdpZHRoPScxMDAlJy RgzAjaFL2bOc5wQFImNLQn pBtsvILnJbHcs5atQINtJKwvQV7 byCqsE8UxaIY7URXll7s1Rb81N9 3uH9CqqIP+WKTjhZB5sTN9 pH7qRrJnJiM6ABshS754WqRncEU jJtcut0kzo6rfbJo5YtF4QOHeov CzyDnkUFX6p0MeJa08G42a IHdpZHRoPSIxNSUiIHZhbGlnbj0 rrE2bIc5+WIBzfEB3lQM7tU8lUg VfXvN8GEokW974GwPudDCi Xpckq0ygx5zxvXn4OaHbGAVoqpA oeFcfQOD5b8QkVv03T4ObmKykx8 HxZov4be13wFRbk2D9lSO3 X5QjHGPttoereZCtnSiaGH9wEOG kcvdsJHIylN0vFAHwN1j2NkWjVd A9LTyeN2FlgoO1LCTjdFBf RKmvOJY6A96dc8W5JCYmDQBcOJD 2cRY0wK9rhJmoahvoeNLxxIxuhe ZevSkbZZtzOPiuQ896DDAa eRluQFNjvM1rFFQwwMItmSfaFJ9 eOVPmxhedKryLZjWZR7RCVWDZUX 0WHBMDQ7BZBDuIVKWSOQZR RTwvdGQ+MNHnGVU2fTozPHikUTQ cyF9iWGQtX5d4QlLdAeF4BWluN5 IaBHCwiqelGy82lF7iDlMf IjU5HHngZ2LhhiL1VQRrzUVhODt wLGL6J20qa1Q1MCNuZZXeSJO7qJ A6aP3yoWepbnbmyBYpvYjy vsUooZapDVjlWHxfT396HEGnyGk yUiLtDlR7GePoVOH4Z0OgPbt7EP MesTgsKW1ehUHgZSuvGv1u rWlzbMbuER6wYKNalwgdVWOxoQ3 qALQcoHMymJurMQ5iZWJgylnwa4 22YoSwTJX8BDXscCMaZ3Lb nK7zQjHfZBPnTOKoZ2AonHLrUXi dJ177BRbfRvH5OUZvojQpO8InCY HdxMieNpG2y5O0Yv0fPOBW ZWFyczwvdGQ+KTPoDHF5aMskSNy hVCJtiJ3iOCGoA1h5MsCgKyX6TU kuO0EgHLWhmezgNm28uP0e QgVjQoD8XCpfM4WpvyJ2BQLfkIM zSNcaFYB7L37yd0V4IUWdGTEfGT U5zUA2sV5tzYfspuyqjINc pXylmgOgfTlhIXhbQTkbN935DCD vcDsnPkZFTUFMRTwvdGQ+PHRkIH Y5zPytSTokZKXziR2iIZXm L6b9EqYzZgM3JKgpA6TuBNHnjlw gYf85sD3nJfUsLgT5LLqkX7Eigh K0IESffQGpKNhtDZS5X50u h0U7QZVlJSBbYDS7rPN2iQ9utGq nbjogbGVmdDsgdmVydGljYWwtYW wbQ460GCVydSevVfQtKRRs IS7gzBiysQE+AW33ta59L7VhMyo vRio3KRVkNPK2mLM8zO9vWOMeVN kvz0R4yQU5H0SwoiWiws4w c1pqGBQgDZrgL96nzGChg1T9WPN kqHM3UVHzcLbwVaTloC06Rmo+PG AmvKivb1CuIsqsd0ira5cg rIg9WnJoMYUoeiRyfUdrZCL1v8J zQr58G31oEVlgOWTyZBWgRFWnWJ ZutSwoph8shE2gDq0+PGNv fBI5zXA9vQ8yBiYpRdB2ZQulW96 4JxIsnVFrDfnhi5nqf4qleBc0Gb QnURBjfeHvlLprUSX7z1Wd Xh36D4ZwiUipq3ZgVrm6ju50fOR ib9G4rQO1M6AgRKOxxhbanMYrwL eaUW9bPYExukppIIAppH9s KVSkP5z3LxHbLrH4TVozS7PptfT 7LQGnzMKrTOOliNEHdW9rwadxk9 zhbmtgArMoAYYxJXr5QGf9 XTIzyQaaVjPrGRE8StI8XVY8gYR daI5gxOdcbsinqD5cVvg+UGh5c2 mnjIKgIY6rtDK2TR07OJ91 oOWpn5X0lVO3Q1IqCBWogbbmszm sbUP4AMOsYGRiwR37Zl8wxKbtQq 8rLDTnDWE5HYHftGWhE0Ul bO4mNuJkCNWbPVQoS1TttQBtTNl sK350NGmpFqW0KYMzxaXlQ5GmEM ZmfWhbBgC6o5Y0Ej8LCG35 DL84UH51jARbg8I6uIE7V2DzSSH myntkcedodNA4LPZjQJWhlF23Db 7vfPhxWf9aTJCaSEG5NFRw pKObI7MoeP8eJnVlUTAnNVGaS0K ppCHiOInhH066CMudLnO1QJWtov WqH5SyXVBoeXjpUqM0w2R7 Ib8DFe27IX39ZY50iOSts5I0jMQ 3S2OrPOOaisxlebgxgXR8BOUgJK OawC55Ub0fzJlpQz9bRESk CPP3KNKdyVUtV8UhiA8bWbJxQZV hTLLtI0KuyTZaMDtfG403OOuhJq R0AFNxzbFwZ0AyKAUnhZza YdF2l4C3Zz2NZJxzoov8P8LkDln vdHI+AT73MXWeEW57yTIzeNMxu3 qeaOc2PqQzMHBvACL3bBnj PSd (more content not included)... Normal [facility] Consent Formson 08-03-2022 Consent Forms [id number] Normal [facility] .Auto Diff 1on 07-31-2022 Auto [place] % 8 % Normal 05-28 [facility] Comment on above: Performed By: #### 1 [id number], [id number], [id number], 1593955, 9207881, [id number], [id number] ####[facility] (DEFAULT)[address] [place] [address] 42857 Baso Abs# 0.0 x10 Normal 0.0-0.2 [facility] Comment on above: Performed By: #### 1 [id number], [id number], [id number], 1803307, 3977746, , ####[facility] (DEFAULT)[address] [place] [address] 86302 Basophils/100 WBC (Bld) 1.0 % Normal 0.2-2.0 [facility] Comment on above: Performed By: #### 1 [id number], [id number], 2477781079, 0078209, 6546339, , ####[facility] (DEFAULT)[address] [place] [address] 87002 Eos Abs# 0.1 x10 Normal 0.0-0.4 [facility] Comment on above: Performed By: #### 1 [id number], [id number], 6376754471, 7878349, 5951282, [id number], ####[facility] (DEFAULT)[address] [place] [address] 14330 Eosinophils/100 WBC (Bld) 2.2 % Normal 0.9-4.0 [facility] Comment on above: Performed By: #### 1 [id number], [id number], 7546521651, 0685059, 9303426, [id number], ####[facility] (DEFAULT)[address] [place] [address] 27665 Lymph Abs# 1.5 x10 Normal 1.3-2.9 [facility] Comment on above: Performed By: #### 1 9771573, [id number], 1032270358, 6735373, 7450812, 8734174185, [id number] ####[facility] (DEFAULT)[address] [place] [address] Lymphocytes/100 WBC (Bld) 35 % Normal 14-48 [facility] Comment on above: Performed By: #### 1 0779301, [id number], 9003853969, 0314420, 5049743, 5806990489, 0623159069 ####[facility] (DEFAULT)[address] [place] [address] 64869 Uinta Abs# 0.4 x10 Normal 0.0-0.8 [facility] Comment on above: Performed By: #### 1 6407569, [id number], 5198226406, 8923026, 1500399, [id number], [id number] ####[facility] (DEFAULT)[address] [place] [address] 58221 Neut Abs# 2.3 x10 Normal 1.5-9.2 [facility] Comment on above: Performed By: #### 1 3770564, [id number], [id number], 1500800, 5645611, 2522113921, [id number] ####[facility] (DEFAULT)[address] [place] [address] 37395 Neutrophils/100 WBC (Bld) 54 % Normal 44-88 [facility] Comment on above: Performed By: #### 1 8160466, 0100123775, 5308494657, 7117319, 2613625, 5007224720, [id number] ####[facility] (DEFAULT)[address] [place] [address] CBC w/ Auto Diffon 3 Erythrocyte distribution width (RBC) [Ratio] 14.7 % Normal 11.5-15.0 [facility] Comment on above: Performed By: #### 1 7091410, [id number], 3841984104, 2917138, 0791648, 5465825552, 0499262448 ####[facility] (DEFAULT)[address] [place] [address] Hematocrit (Bld) [Volume fraction] 39.8 % Normal 33.7-40.4 [facility] Comment on above: Performed By: #### 1 4282647, [id number], 1563172067, 5681488, 9676310, [id number], ####[facility] (DEFAULT)[address] [place] [address] Hemoglobin (Bld) [Mass/Vol] 12.9 g/dL Normal 11.3-15.9 [facility] Comment on above: Performed By: #### 1 7142837, [id number], 4026604790, 1746170, 1426469, 3161003084, ####[facility] (DEFAULT)[address] [place] [address] 17523 Man Diff? Auto Invalid Interpretation Code [facility] Comment on above: Performed By: #### 1 2120738, [id number], 3173487301, 1466329, 1732382, 6745397138, [id number] ####[facility] (DEFAULT)[address] [place] [address] 21685 MCH (RBC) [Entitic mass] 25 pg Normal 24-34 [facility] Comment on above: Performed By: #### 1 0852439, 3511447715, 0366873183, 7506444, 9931975, 9541848588, ####[facility] (DEFAULT)[address] [place] [address] MCHC (RBC) [Mass/Vol] 32 g/dL Normal 26-37 [facility] Comment on above: Performed By: #### 1 8950647, 0948507521, 4799363716, 2018932, 7061957, [id number], ####[facility] (DEFAULT)[address] [place] [address] 85430 MCV (RBC) [Entitic vol] 77 fL Low 81-100 [facility] Comment on above: Performed By: #### 1 7404720, 3618445789, 0098528057, 1753621, 1537213, 7070530238, [id number] ####[facility] (DEFAULT)[address] [place] [address] Platelet 254 x10 Normal 138-427 [facility] Comment on above: Performed By: #### 1 6399085, 4992912662, 7898576685, 4787649, 7320979, 0367751441, 5833823189 ####[facility] (DEFAULT)[address] [place] [address] 17664 Platelet mean volume (Bld) [Entitic vol] 8.8 fL Normal 6.3-10.2 [facility] Comment on above: Performed By: #### 1 2813748, 7430402590, 5563714035, 7173998, 8184458, 1306408767, [id number] ####[facility] (DEFAULT)[address] [place] [address] RBC 5.14 x10 Normal 3.70-5.30 [facility] Comment on above: Performed By: #### 1 4000946, 7902242782, 7726730949, 3729272, 4303765, 7613580283, 3913968933 ####[facility] (DEFAULT)[address] [place] [address] 02132 WBC 4.4 x10 Normal 3.5-10.5 [facility] Comment on above: Performed By: #### 1 4694134, 6425205342, 3575881650, 9332593, 0055740, 6223022289, 7722151670 ####[facility] (DEFAULT)[address] [place] [address] 47509 CMP Standardon 07-31-2022 eGFR Non AA >60 Invalid Interpretation Code [facility] Comment on above: Performed By: #### 1 2492404, [id number], 8435431301, 2640895, 2227578, , ####[facility] (DEFAULT)[address] [place] [address] 58236 eGFR AA >60 Invalid Interpretation Code [facility] Comment on above: Performed By: #### 1 5779538, [id number], 0668823113, 0394154, 9501836, 2331366867, [id number] ####[facility] (DEFAULT)[address] [place] [address] 12564 Albumin [Mass/Vol] 4.5 g/dL Normal 3.5-5.0 [facility] Comment on above: Performed By: #### 1 3787275, 1654724367, 5828535932, 0741857, 6650929, 5130197493, 9472700469 ####[facility] (DEFAULT)[address] [place] [address] 20248 Alk Phos 70 IU/L Normal 32-91 [facility] Comment on above: Performed By: #### 1 2479782, [id number], 0318223846, 2536290, 8997901, 5468748096, 3640299444 ####[facility] (DEFAULT)[address] [place] [address] 65068 ALT [Catalytic activity/Vol] 20.0 U/L Normal 8.0-29.0 [facility] Comment on above: Performed By: #### 1 [id number], [id number], [id number], 0564245, 4160014, [id number], [id number] ####[facility] (DEFAULT)[address] [place] [address] 69850 AST [Catalytic activity/Vol] 19 U/L Normal 14-37 [facility] Comment on above: Performed By: #### 1 [id number], [id number], 8210668320, 6941013, 2672243, 2444902694, [id number] ####[facility] (DEFAULT)[address] [place] [address] 35229 Bili Total 0.7 mg/dL Normal 0.0-2.0 [facility] Comment on above: Performed By: #### 1 7127954, 3286158605, 9260157072, 8595625, 3569046, , ####[facility] (DEFAULT)[address] [place] [address] 44664 Calcium [Mass/Vol] 9.1 mg/dL Normal 8.9-10.3 [facility] Comment on above: Performed By: #### 1 6334542, [id number], 8748294161, 4576369, 7617392, , ####[facility] (DEFAULT)[address] [place] [address] 70298 Chloride [Moles/Vol] 105 mmol/L Normal 101-111 [facility] Comment on above: Performed By: #### 1 6511134, 5133334039, 0929353716, 1190172, 3640925, 9451275503, ####[facility] (DEFAULT)[address] [place] [address] 48802 CO2 [Moles/Vol] 23 mmol/L Normal 21-32 [facility] Comment on above: Performed By: #### 1 5339345, 6818095039, 4887764675, 4616424, 7527202, , ####[facility] (DEFAULT)[address] [place] [address] 54847 Creatinine [Mass/Vol] 0.64 mg/dL Normal 0.30-1.00 [facility] Comment on above: Performed By: #### 1 5876495, 4867032766, 7053128434, 0994598, 1028612, , ####[facility] (DEFAULT)[address] [place] [address] 64918 Glucose [Mass/Vol] 92.0 mg/dL Normal 56.0-144.0 [facility] Comment on above: Performed By: #### 1 8894567, 9895120014, 7014238673, 4956982, 8978629, 6760676576, ####[facility] (DEFAULT)[address] [place] [address] 25528 Potassium [Moles/Vol] 3.5 mmol/L Low 3.6-5.1 [facility] Comment on above: Performed By: #### 1 2450025, 4743157040, 0487633391, 3492243, 9947435, 8742047153, ####[facility] (DEFAULT)[address] [place] [address] 00482 Protein [Mass/Vol] 8.0 g/dL Normal 6.1-8.0 [facility] Comment on above: Performed By: #### 1 4363470, 6582364781, 5305931591, 1785118, 4082431, 4576557212, ####[facility] (DEFAULT)[address] [place] [address] 03293 Sodium [Moles/Vol] 133.0 mmol/L Low 136.0-144.0 [facility] Comment on above: Performed By: #### 1 6279436, 4045621702, 0564336590, 2019410, 8470603, 3703436950, ####[facility] (DEFAULT)[address] [place] [address] 53190 Urea nitrogen [Mass/Vol] 10 mg/dL Normal 8-26 [facility] Comment on above: Performed By: #### 1 7616266, 7381958444, 2882888044, 6607678, 8610485, 4305743868, ####[facility] (DEFAULT)[address] [place] [address] 96922 Albumin/Globulin [Mass ratio] 1.2 {ratio} Low 1.4-2.6 [facility] Comment on above: Performed By: #### 1 1044783, 7683350159, 0462533140, 3421136, 9574708, 6872612292, ####[facility] (DEFAULT)[address] [place] [address] 64311 Anion gap [Moles/Vol] 8.5 mmol/L Normal 5.0-19.0 [facility] Comment on above: Performed By: #### 1 6028468, 4392010602, 4242565383, 9066523, 7312082, 2845489528, ####[facility] (DEFAULT)[address] [place] [address] Globulin (S) [Mass/Vol] 3.5 g/dL Normal 1.5-4.3 [facility] Comment on above: Performed By: #### 1 2916667, 2689837018, 7483719654, 3635179, 4821843, 6233922886, 3743350739 ####[facility] (DEFAULT)[address] [place] [address] 87690 Osmolality 265 mOsm/L Invalid Interpretation Code [facility] Comment on above: Performed By: #### 1 3199862, 8027478262, 4155290785, 1545390, 4153871, 2523564684, 7569467647 ####[facility] (DEFAULT)[address] [place] [address] 64718 Urea nitrogen/Creatinin e [Mass ratio] 15.6 mg/mg Normal 4.6-16.2 [facility] Comment on above: Performed By: #### 1 5961295, 0954867066, 2211854803, 7779998, 8867205, 4121092227, 1747249113 ####[facility] (DEFAULT)[address] [place] [address] 03916 CRPon 07-31-2022 CRP 0.6 mg/dL High <=0.5 [facility] Comment on above: Performed By: #### 1 3347993, 3404834111, 6900535113, 2991391, 5271103, 7036627969, 3812569532 ####[facility] (DEFAULT)[address] [place] [address] Abdomen/Pelvis w/ Contras ton 07-31-2022 CT [...] MD 07/31/22 12:29 p Technologist: Natalia JI [facility] Comment on above: Order Comment: IV on ly ED Clinical Summaryon 2022 ED Clinical Summary [facility] - Emergency Department [address] [place] [address] ED Clinical Summary PERSON INFORMATION Name: SHEYLA LEA Age: 17 Years Sex: FEMALE : 2005 MRN: Acct#: Visit Reason: Abdominal pain; ABD PAIN Arrival: 07/31/2022 11:11:49 Discharge: 07/31/2022 13:07:00 LOS: 000 01:56 Check In: 07/31/2022 11:11:49 Checkout:07/31/2022 13:07:00 Address: [address] [place] [address] PCP: KEVIN STOKES PROVIDER INFORMATION Provider Role Assigned Unassigned KATHLEEN LUNDBERG ED PA 07/31/2022 11:14:51 Gila Solis DATA DESIGNER Nurse 07/31/2022 11:22:38 VITALS INFORMATION Vital Sign [...] - pharynx pink and moist. NECK: -Supple ([id number]): non-tender. CARD: -Rate and rhythm: Regular -Edema: [...] at 0.6, (more content not included)... Normal [facility] ED Note - Physicianon 2022 [...] - pharynx pink and moist. NECK: -Supple ([id number]): non-tender. CARD: -Rate and rhythm: Regular -Edema: [...] 20.0 IU/L (more content not included)... Normal [facility] ED Patient Summaryon 023 ED Patient Summary [facility] - Emergency Department [address] [id number] PATIENT DISCHARGE INSTRUCTIONS Patient Information Name: SHEYLA LEA Age: 17 Years Date of : 2005 Reason For Visit: Abdominal pain; ABD PAIN Arrival Time: 07/31/2022 11:11:49 Primary Care Physician: KEVIN STOKES Attending Physician: Ean Solorzano MD Comment: Visit Diagnosis: Diagnoses This Visit Abdominal pain ([id number]) Abdominal pain (R10.9) Elevated blood pressure reading (R03.0) The [facility] is open Wednesday through Wednesday from 9A [...] and/or drug addiction problems; contact the [facility] 07/12 Crisis Hotline -Text 0JZUK [place] [phone]. If you received any narcotics, sedation, or [...] legal documents With: Address: When: KEVIN STOKES [address] [place] [address] [phone] Business (1) Within 2 to 4 days [...] and treatment you received today in the [facility] Emergency Department were for an urgent problem and are not intended as complete care. It is important for you to follow up with a doctor, nurse practitioner, or physician?s educational assistant for ongoing care. If your symptoms [...] so we can reach you if necessary. [facility] Emergency Department has provided you with a complete list of medications post discharge. Please inform your date puller/provider of your visit and for further instruction [...] heart throughout (more content not included)... Normal [facility] Extra Greenon 07-31-2022 Tube Collected Yes Invalid Interpretation Code [facility] Comment on above: Performed By: #### 1 [id number], [id number], 6661011366, 6664908, 7601164, [id number], [id number] ####[facility] (DEFAULT)[address] [place] [address] 70343 Extra Redon 07-31-2022 Tube Collected Yes Invalid Interpretation Code [facility] Comment on above: Performed By: #### 1 [id number], [id number], 8240098024, 4693203, 4357995, 1128913403, [id number] ####[facility] (DEFAULT)[address] [place] [address] 20580 Lactic Acidon 07-31-2022 Lactic Acid 6.5 mg/dL Normal 4.5-19.8 [facility] [facility] Comment on above: Performed By: #### 2 [id number] ####[facility] (DEFAULT)[address] [place] [address] 62466 Test Urine 1on U Preg Negative [facility] Comment on above: Performed By: #### 1 [id number], [id number], [id number] #### [facility] (DEFAULT) [address] [place] [address] 16249 U Preg Internal Control Pass Normal [facility] Comment on above: Performed By: #### 1 [id number], [id number], [id number] #### [facility] (DEFAULT) [address] [place] [address] 69176 UA Shrir2rx 07-31-2022 UA Bacteria None Normal [facility] Comment on above: Order Comment: Urina lysis Microscopic order added on by Discern Expert Rules system. Performed By: #### 1 [id number], [id number], [id number] #### [facility] (DEFAULT) [address] [place] [address] 58876 UA RBC 0-2 [facility] Comment on above: Order Comment: Urina lysis Microscopic order added on by Ion Torrent Expert Rules system. Performed By: #### 1 [id number], [id number], [id number] #### [facility] (DEFAULT) [address] [place] [address] 33736 UA Squam Epi Rare [facility] Comment on above: Order Comment: Urina lysis Microscopic order added on by Ion Torrent Expert Rules system. Performed By: #### 1 [id number], [id number], [id number] #### [facility] (DEFAULT) [address] [place] [address] UA WBC None Seen [facility] Comment on above: Order Comment: Urina lysis Microscopic order added on by Ion Torrent Expert Rules system. Performed By: #### 1 [id number], [id number], [id number] #### [facility] (DEFAULT) [address] [place] [address] UA w Culture if Ind Standard on 07-31-2022 Breakpoint UA [facility] Comment on above: Performed By: #### 1 [id number], [id number], [id number] #### [facility] (DEFAULT) [address] [place] [address] 77583 Color (U) Yellow [facility] Comment on above: Performed By: #### 1 [id number], [id number], [id number] #### [facility] (DEFAULT) [address] [place] [address] 42610 Culture? No [facility] Comment on above: Result Comment: Resu lt created by rule GL_MAGR_ADD_UA_CULT Result created by rule GL_MAGR_ADD_UA_CULT1 Performed By: #### 1 [id number], [id number], [id number] #### [facility] (DEFAULT) [address] [place] [address] 88295 Glucose (U) [Mass/Vol] Negative [facility] Comment on above: Performed By: #### 1 [id number], [id number], [id number] #### [facility] (DEFAULT) [address] [place] [address] 07431 Ketones Ql (U) Negative Normal [facility] Comment on above: Performed By: #### 1 [id number], [id number], [id number] #### [facility] (DEFAULT) [address] [place] [address] Micro? Indicated Invalid Interpretation Code [facility] Comment on above: Result Comment: Resu lt created by rule GL_MAGR_ADD_UA_MICRO Performed By: #### 1 [id number], [id number], [id number] #### [facility] (DEFAULT) [address] [place] [address] 80892 UA Bilirubin Negative Normal [facility] Comment on above: Performed By: #### 1 [id number], [id number], [id number] #### [facility] (DEFAULT) [address] [place] [address] 28820 UA Blood SMALL Abnormal NEGATIVE [facility] Comment on above: Performed By: #### 1 [id number], [id number], [id number] #### [facility] (DEFAULT) [address] [place] [address] 76046 UA Clarity CLEAR Normal CLEAR [facility] Comment on above: Performed By: #### 1 [id number], [id number], [id number] #### [facility] (DEFAULT) [address] [place] [address] 23915 UA Leuk Est Negative Normal NEGATIVE [facility] Comment on above: Performed By: #### 1 [id number], [id number], [id number] #### [facility] (DEFAULT) [address] [place] [address] 67313 UA Nitrite Negative Normal NEGATIVE [facility] Comment on above: Performed By: #### 1 [id number], [id number], [id number] #### [facility] (DEFAULT) [address] [place] [address] 11923 UA pH 7.0 Normal 5-8 [facility] Comment on above: Performed By: #### 1 [id number], [id number], [id number] #### [facility] (DEFAULT) [address] [place] [address] UA Protein Negative Normal NEGATIVE [facility] Comment on above: Performed By: #### 1 [id number], [id number], [id number] #### [facility] (DEFAULT) [address] [place] [address] UA Spec Grav 1.010 Normal 1.001-1.035 [facility] Comment on above: Performed By: #### 1 [id number], [id number], [id number] #### [facility] (DEFAULT) [address] [place] [address] UA Urobilinogen 0.2 mg/dL Normal 0.2-1.0 [facility] Comment on above: Performed By: #### 1 [id number], [id number], [id number] #### [facility] (DEFAULT) [address] [place] [address] 93655 Urine Source Clean Catch Normal [facility] Comment on above: Performed By: #### 1 [id number], [id number], [id number] #### [facility] (DEFAULT) [address] [place] [address] Coding Summaryon 07-11-2022 Coding Summary HTMLBase 64 PfkzwgmmYDc6sWt+PGhlYWQ+PE1 FLEOvF78ypXMqkX3BR5tSED4UHY MIEAAAGQ8PWD3zbVM6LTypG1Dml iAv SczqoLEgER34FGo6YNU4nGuuIEu hsW1ixHZzO7s9CsLxGR39vT35IU gdAGMmFaK9LaSyferenMXc E6rtQmLayNTyZpj+PHRhYmxlIHd cSDMcIJpxSVEgMoEglHsxEE4qBa 9yZGVyLWNvbGxhcHNlOiBj m4zuSORkVNbvIT5yxYviS2JodAH 0TIFih9a4Mq82iNS+ICXiIZH0nT cjPOodd906BbXwc1uaSJJ3 aBXuSRhzRYV1C01ic2O6TNSnUQZ jYFQ4rJT0hW0nzLyslmqnH7DlhL RoMlN3WJA8zCTjmH5rkMmh wakilQ3bFsf+N16FUM1JVYDXJP7 HGxf3Y9XfBsmerHG+SJ96QFGzXR 65uYCgxRIoz2smeVr6QvVc MFYkRFM3dJhjXLrsl9UhSRIdE71 dvIHxp6O2TWYssNjveURoUaNmmM K5iL5cGBlwlrngb4vjzsss Rjymi7loer28fJ00E39rNZhrCTF hVMC9VLIwZVEvkXmlil7omO9yOq 8+TZsrc2zlq0dfpPk5VoKb ODRjioDxjEuqZZS4r4EkBk56R0J neUbny5UrNnb0vr76oAZnh5D8wL K2LFmjMDFnjY9dKGsaLuL1 CHUkPyFlcF59uNMeCZplTv2mpCq qhWtkHQ6oXULngnwnKBJlmF4mUC CzbJMhsYcnUP4vEZDkwssj h729GeDxYFI5CZUhvJOcJ3JylP7 gFjOmITYoASUyI1EkaYBjCWdgI9 47FFswKfL1VHYjtjUdI1Ng ZBEhpJqsFwV0a9M3Mf4Fg9Diejb cGLR5ECtmSZIrCtW0VvDxCbV7Y4 KwVxk2AJYteVzdVM2eX3Tg VCPvbhgovguutTF2UJXhNFGmcP4 3oVKyGZstPn8mr9M4g651FMClNJ EwzQ35Uq2faWyhFJKkvWHW lS8opajpf1bpgmuxQqCpTCMbXHh 5QIm8BQOynEqzJoCkIFM2VdK3OQ M8cMOswV7ivRhbgttvqJ5o Oyc+G69fhE2oHUP9BXF4mfmdCQX cwwAmXA81KE22U3IkYybvpHPjqA U+ZDLqinNygTuqCX7dBqZz q6abu0DdUBvhK5IvEDNsINxgEfg 2ZCLiLVM1dZJ9iV4vLGLyKKpji2 J8dJP4W0IzhdQneu0wn5mx ZQAaHNccG31huZTsw1T3POYpgHG 3PDLssYlcDaBdrK10Zrn+PGNvbG fmk4UnNfvjp3rht3oihWl7 MvCjCAElgzWvhLvrDWZ9x5EaUo9 4E41mSVftAZGaZCYxBWEsMUMfzD nhxi7tdE6jAs6+PGNvbCB3 nZJ9vS9vSYAhGjP3HXzuS527HoM biMDzAkvvq7zak6cgeRm9TzKgMG CofbGxzGfzDFO0s0XzPe25 E11iRQrqNPToEZLkLLJaIZDgrSb dbo4zfE5yHb4+TZ4ob4hlag94bD 48dHI+LTBhDYR2qUwsLCqu IONznN1iIHquZcC0TESnSiAthH0 9cUYsBXtuNu4viMhifTvdSX5tNH Mntcpoz342GmDfw0fyUPDu wSZrFYxiEZO8G00cg3H8HYYtPKY vMQP3dXT6sE0csSceshxobLXciP ruzeWtjLnsRTqrBFlnB290 IHRvcDsnPlBhdGllbnQgTmFtZTo 6R9FuRfw0UDJudSspES4mvWKcJS uwKl1yxYcbfGzqSH5wUMCp pgmvs796WyMcq3lwXQNyzYTaFAh eAQU2U24iy4J8MHCoUTKeDGJ7fN F5jC1iiYzpnxfcaLFttAtg uqRcxNfzSJghPTgfQ615SBJfmMd qFuHkzhWbPRPgaOM9MI10GW18pD Bca4M8dRM4V4LpYSTjpnrh facwdGQ5LVViDZDbvS69Ft8ubEs lYy1iZZKnWVG9TNFpuYHxF0BkyU 5hEqHuSLCtBVTzM5VzlJEl TKbnY992DNmvDaQ3ZHEccnAjK6I hWFSujAvuGnQ7h2N9Qp6XS2G9SP 12HX99eEPod4I2aYI4Y3Qe ZFIguangbizzrQT6WFFjFUUraI3 7Iq8dpLkiQk5dKYXuGDD9ALOlmU FtB0YrzX1rVaZlLVZbRIBq P7MzgWOpLGmbI389KIzcJiW8ZVC sfwPoW0LhBCYsbCjjEqK3d7U9Iu 3KQZz9IL04PX21dQYde8L4 gQN5Y5WjKUXvnsaqijuhmTP4NAB oHFMhkG09Bn1pfNynNj6vCYKfIK D6PYKxeRRfJ8KwhM7jKqOu TPYiRUMsD1TmrENdUCpoR179JJi mYyC5WCTjctSbT2RjZYMlnCutKn N8j2E6Cv4HQFZfQA47RQW3 zHL3CI43HD03L9JlOloroANhmZY +PHRhYmxlIHdpZHRoPScxMDAlJy IoiOkkBH3tNb4jRPXrYQPe iStrzSCqNvGdt8lzBTWjCUvzDV9 ybGxkL5MkzMJ6DUHor0n6Bl68H7 9bM3RxdBH+YPCsyXO6xNQ4 lY2dEhYuAiP7WMpgL161RfAqeUB iKtsdp2wzs5ckkXr7EvS4SGCakj KboZzeFDX9p5UfVl30Z08u IHdpZHRoPSIxNSUiIHZhbGlnbj0 cyH6vQd6+ZSRpjZF9hNN8xC3qTn RpTtR0HJdrS895TjPpbIFq Ezttf3xhv9gfvKs7KbNjCHYanxT ebAhgBFF4x6DkCh33W4BlnJpmm9 AkOgb3wm02jQTrp8E9kCT1 N9EdPROpsqnirQTwnUmcDZ0fZZC hydveHRPujP8tMFFvB4k4DfHoCx S4MXuhX2IllzV4YZRwrSUu AIkuLUG7F53bi2S5XRSrEYNfCVA 2lNC9vS6erVayycqsfQPbbSwebh AyxHoqGTdsLJfnH586GHJk xPxsSUInqW1jZHBbrIWuxQuwQW7 gXSPlzyekJkhFHuPCK5WAQHQFAU 8VMPFMT4SKKCtJCDLLOIQB RTwvdGQ+AFOgKQK8sXekLLvbSFO xuO1kDQVhE5p2PgUfUyO2CPosS4 UhOHVfeoftNv40wP9kGfRz AhT1IPmoK3CdjgQ0VMIxsIDwTGr rBAN1C36tn2O2RAYlKKVmHWC9fI D7jF5ooNjvufzlqQKrjAre gzFpxMknNOzqZPvyN972UQOucQi wUcOeDtE8AqHsZEM5R8PsZng9XF BpnKgaMN1zlXCkYZpxVn5j pDgwkUewMG6lJYWwdryiVKZarE6 hXAVhmOTswQgqGG5iQVOpwvcjk5 92XfDuMYT7GNJhqSDtZ1Kq uJ0cTdHnCCAeYVFuF0RmaQAnTJm yH169XNymAdS3WLGrzfBlC4UeSV CwdYzaGgO8i1S3Kr5dZWPS ZWFyczwvdGQ+NCYmFHP4rRhvSVo qMUNvfY4gGFChF0b6AaXtOcL2PM zeL9BfAIOchngpOv42cE2t VkImBjK4JNpwR0IbwuP0IVLpmDD nNXpbDTZ9R52lm4R2HRPlICAjBS S9tXA2sA1htKjaexrlhSWa hAdjbyDpePgwHHatXLugS717KIJ vcDsnPkZFTUFMRTwvdGQ+PHRkIH Q7mKaeMQmqIRTtfO5iUFIm A1v1WmYjMlP6GGffG5CsIUFwnmt iSz47xJ9yWxDyVlC0XWtgL5Twmd X2SMIrdHIkADpwRYP3O97m j0L6YJWnHNJsIRW2dOR6wG4mwTi nbjogbGVmdDsgdmVydGljYWwtYW bfP801BXMqiSmeQd1WQW03 RT90A3TsZbtskTSmqOE+PHRhYmx lIHdpZHRoPScxMDAlJyBzdHlsZT 1dJy1tHTWwOCDjrLqxqAWx YsVtb1plAJGiHQamFY6szDtbG9V biJW8MSHag3i8Rt05R68uB4XcmH A+RVXdeRZ1iLB5iS3wHqPb RsW7UJntS205TiNasJUaJzgca1d zy2tmfTk0RaLuYQAmkdYduJcyGM S1r2SeGc18J43tTNxgPXZx BCVaFLUaOCSyfIsksf2dcZ8dAo7 +WHQvyIA8wFU1oP5wHeCsClC7YS caE716SzNcnJFwYebnV86k T3RgtVF+SNFpKct2HMDybFjeJH0 weCFrFJtnKr7cMBE7GoQkEcAcMG riZ0RbDODwfjaexnftsNJ5 SBXvSEShuN12Tk0phDgoTa1uVMZ bXHT8KWAxfYSpG0TosC8iUhPdZL GeYDWdB6ZklDClHWuiT369 EWriJvK8KPBhihJlR9BeCNLsgDk bBfE1s4C7Af6QzUwovTUkKG1nIu IvPWh2I7DdOgk2SSMhoPbc RE5rzXCrUXudMw2jyZebfOfyJO0 pLEDekgmig988VaNti3neWJLyfV NmHEuiFDB1N80cq4V8NKAl GLQoKZN6rAF6aF2emFcegffsxSW ucFejhyZfsDfhTXffVKobZ177PX XynQdoEjUEIje3N7UxKai9 FWYvtXbvVR9kqPZiEZgqJc8xsDh yuAzxCA1eQGGijdibr272GcZnb0 haXFGfgAAvZLijGLE4U93k y9Z7CVAqRIXfXQY4gYJ6rJ7ooOn nbjogbGVmdDsgdmVydGljYWwtYW idU313LXBdcUacVm2SHat9 J2EzZcr5RPYrzYpxGK7hmCXtFVh pJn5kwBnmqJfsFF3gHIWdwagkd2 36GsNod6xtCAHxyEClPUlk EQZ9L17sn5F2DGUpCFPeKKO6hKT 5fJ0vkRjlsomshLOamZkqrhBxgN yyIUhiQOfjF625OPQotOli PlBheWVyOjwvdGQ+OZ30xo76O3W bZujpJmy3SFOpDWJ7wEF4dI5vUW ItRSktn9R6qTM8H3ZxhfTy ci1 (more content not included)... Normal [facility] ED Clinical Summaryon 2022 ED Clinical Summary [facility] ? Urgent Care [address] [place] [address] [id number] Clinical Summary PERSON INFORMATION Name: SHEYLA LEA Age: 17 Years Sex: FEMALE : 2005 MRN: Acct#: Visit Reason: Ear pain; BI LAT EAR PAIN, FEVER Arrival: 07/08/2022 10:52:39 Discharge: 07/08/2022 11:26:00 LOS: 000 00:34 Check In: 07/08/2022 10:52:39 Checkout: 07/08/2022 11:26:00 Address: [address] [place], [place] [id number] PCP: KEVIN STOKES PROVIDER INFORMATION Provider Role Assigned Unassigned Arvind Doherty PA-C ED PA 07/08/2022 10:58:02 Levy Bee ED PA 07/08/2022 10:58:39 07/08/2022 10:58:42 Zara Fleming DATA DESIGNER Nurse 07/08/2022 11:09:15 VITALS INFORMATION Vital Sign Triage Latest Temperature Tympanic Temperature Temporal Artery Pulse Rate O2 Sat 99 % 99 % Respiratory Rate Blood Pressure /60 mmHg /60 mmHg MEDICAL INFORMATION Medications Given: Allergy Information: No Known Medication Allergies PHYSICIAN DOCUMENTATION DISCHARGE INFORMATION: Discharge Disposition: Home Discharge Location: Home PATIENT EDUCATION INFORMATION Instructions: Otitis Media, Adult, Nmfv-mp-Exmv Follow-Up: With: Address: When: KEVIN PAMLORISANDRAZaida [address] [place], [place] [id number] Business (1) Within 5 to 7 days DIAGNOSIS: Bilateral otitis media Patient Understands: Yes - Patient/family/caregiver verbalizes understanding of instructions given Comment: Normal [facility] ED Patient Summaryon 023 ED Patient Summary [facility] ? Urgent Care [address] [place], [place] [id number] PATIENT DISCHARGE INSTRUCTIONS Patient Information Name: SHEYLA LEA Age: 17 Years Date of : 2005 Reason For Visit: Ear pain; BI LAT EAR PAIN, FEVER Arrival Time: 07/08/2022 10:52:39 Primary Care Physician: KEVIN STOKES Attending Physician: Levy Bee Comment: Patient Education With: Address: When: KEVIN OROZCOGERMÁNZaida [address] [place], [place] [phone] Business (1) Within 5 to 7 days [...] Follow these instructions at home: ? Take aoic-pqu-xnvbgjz and prescription medicines only as told by [...] provider. Document Revised: 08/11/2021 Document Reviewed: 08/11/2021 [employer] Patient Education ? 2021 edjing. Medication Information: The exam and treatment you received today in the [facility] were for an urgent problem and are not intended as complete care. It is important for you to follow up with a doctor, nurse practitioner, or physician?s educational assistant for ongoing care. If your symptoms [...] have provided (more content not included)... Normal [facility] Urgent Care Note- Provideron 07-08-2022 [...] been selected or recorded.. Surgical history: Myringotomy ([id number]). History of tonsillectomy ([id number]).. Family history: No family history items have [...] Impression and Plan Diagnosis Bilateral otitis media ([id number] H66.93, Discharge, Medical) Plan Condition: Stable. Disposition: Discharged: Time 07/08/2022 11:20:00, to home. Prescriptions: Launch prescriptions Pharmacy: amoxicillin-clavulanate 875 mg-125 mg oral tablet (Prescribe): 1 tab(s), PO, q12hr, for 10 day(s), 20 tab(s), 0 Refill(s). Patient was given the following educational materials: Otitis Media, Adult, Wynw-ix-Vijy, Otitis Media, Adult, Avqm-mb-Pebt. Follow up with: KEVIN STOKES Within 5 to 7 days. Counseled: Patient, Regarding diagnosis, Regarding treatment plan, Regarding prescription, Patient indicated understanding of instructions. Orders: Launch Orders Miscellaneous Request: Excuse from Work/School (Order): 07/08/2022 11:21 EST, No work or school today.. [Electronically Signed on: 07/08/2022 11:28 EST] Arvind Doherty PA-C [Verified on: 07/08/2022 11:28 EST] Arvind Doherty PA-C Normal [facility] Urgent Care [place] 023 Urgent Care Record [facility] ? Urgent Care [address] [place] [address] PATIENT DISCHARGE INSTRUCTIONS Patient Information Name: SHEYLA LEA Age: 17 Years Date of : 2005 Reason For Visit: Ear pain; BI LAT EAR PAIN, FEVER Arrival Time: 07/08/2022 10:52:39 Primary Care Physician: KEVIN STOKES Attending Physician: Levy Bee Comment: Visit Diagnosis: Diagnoses This Visit Bilateral otitis media (H66.93) Ear pain ([id number]) If you received any narcotics, sedation, or [...] legal documents With: Address: When: KEVIN STOKES [address] [place] [phone] Business (1) Within 5 to 7 days Medication Information: The exam and treatment you received today in the [facility] were for an urgent problem and are not intended as complete care. It is important for you to follow up with a doctor, nurse practitioner, or physician?s educational assistant for ongoing care. If your symptoms [...] so we can reach you if necessary. [facility] has provided you with a complete list of medications post discharge. Please inform your date puller/provider of your visit and for further instruction on these medications. Any specific questions regarding your chronic medications and dosages should be discussed with your primary care physician(s) and/or pharmacist. New Medications [id number], [address], [place] [id number], [phone] amoxicillin-clavulanate (amoxicillin-clavulanate 875 mg-125 mg oral tablet) [...] in the (more content not included)... Normal [facility] US NECK (POC) HNI USE ONLYon 05-28-2022 [facility] US THYROID/PARATHYROIDon US THYROID/PARATHYROI D * * *Final Report* * * DATE OF EXAM: Apr 19 2022 8:15AM [facility] 1048 - US THYROID/PARATHYROID / PROCEDURE REASON: [...] 2 points Echogenicity: Hypoechoic, 2 points Shape: Ckisn-diua-fson, 0 points Margin: Lobulated or irregular, 2 [...] WHICH MAY REPRESENT UNDERLYING DIFFUSE THYROID DISEASE. Oriental Rug Stretcher: PSCB Transcribe Date/Time: Apr 19 2022 8:34A Dictated by : UMU WHITAKER MD This examination was interpreted and the report reviewed and electronically signed by: UMU WHITAKER MD on Apr 19 2022 8:40AM EST [id number] Normal [facility] Cholesterol in LDL Direct as say [Mass/Vol]on 04-15-2022 Cholesterol in LDL [Mass/Vol] 95 mg/dL Normal <110 [facility] Comment on above: Order Comment: Harriet abernathy Type: BLOOD SPECIMEN Ordering Facility: [facility] Address: [address] [place] [address] Result Comment: <110 mg/dL, Acceptable 110-129 mg/dL, Borderline high >129 mg/dL, High Performed By: #### H DL1, 92610-0, 3016-3 #### [facility] CLIA [id number] [place] [address] [place] Cholesterol in LDL [Mass/Vol] 95 mg/dL <110 mg/dL [facility] HDL CHOLESTEROL BLDon 2021 Cholesterol in HDL [Mass/Vol] 42 mg/dL Low >45 [facility] Comment on above: Order Comment: Harriet abernathy Type: BLOOD SPECIMEN Ordering Facility: [facility] Address: [address] [place] [address] Result Comment: >45 mg/dL, Acceptable 40-45 mg/dL, Borderline <40 mg/dL, Low Reference: 1. Expert Panel on Integrated Guidelines for Cardiovascular Health and Risk Reduction in Children and Adolescents: National Heart, Lung and Blood Monon. Pediatrics. 2011: 128(Suppl 5):B334-632. Performed By: #### H DL1, 89972-8, 3016-3 #### [facility] CLIA [id number] [place] [address] [place] Cholesterol in HDL [Mass/Vol] 42 mg/dL Low >45 mg/dL [facility] HbA1c (Bld)on 04-15-2022 Average glucose Estimated from glycated hemoglobin (Bld) [Mass/Vol] 94 mg/dL [facility] HbA1c (Bld) [Mass fraction] 4.9 % 4.3 - 5.6 % [facility] Average glucose Estimated from glycated hemoglobin (Bld) [Mass/Vol] 94 mg/dL Normal [facility] Comment on above: Order Comment: Harriet abernathy Type: BLOOD SPECIMEN Ordering Facility: [facility] Address: [address] [place] [address] Result Comment: eAG: (Estimated average glucose) is a calculated value from HgbA1c and is financial sales representative of the average blood glucose level in the last 2-3 month period. Performed By: #### 5 5454-3 #### [facility] CLIA [id number] [address] [place] [address] [place] [facility] HbA1c (Bld) [Mass fraction] 4.9 % Normal 4.3-5.6 [facility] Comment on above: Order Comment: Harriet abernathy Type: BLOOD SPECIMEN Ordering Facility: [facility] Address: [address] [place] [address] Result Comment: Amer ican Diabetes Association guidelines indicate that patients with HgbA1c in the range 5.7-6.4% are at increased risk for development of diabetes, and intervention by lifestyle modification may be beneficial. HgbA1c greater or equal to 6.5% is considered diagnostic of diabetes. Performed By: #### 5 5454-3 #### [facility] CLIA [id number] [address] [place] [address] [place] T4 FREE/FREE THYROXon 2021 Free T4 [Mass/Vol] 1.1 ng/dL 0.8 - 1.5 ng/dL [facility] T4 Free SerPl-mCncon 022 Free T4 [Mass/Vol] 1.1 ng/dL Normal 0.8-1.5 [facility] Comment on above: Order Comment: Harriet abernathy Type: BLOOD SPECIMEN Ordering Facility: [facility] Address: [address] [place] [address] Performed By: #### 3 024-7 #### [facility] CLIA [id number] [facility] [place] [address] [place] TSH BLDon 04-15-2022 TSH Qn 1.950 m[IU]/L 0.510 - 4.300 mIU/L [facility] TSH SerPl-aCncon 04-15-2022 TSH Qn 1.950 m[IU]/L Normal 0.510-4.300 [facility] Comment on above: Order Comment: Speci men Type: BLOOD SPECIMEN Ordering Facility: [facility] Address: [address] [place] [address] Result Comment: If t he patient is , TSH reference range varies by gestational period: First Trimester (weeks 9-12): 0.180-2.990 mIU/L Second Trimester: 0.110-3.980 mIU/L Third Trimester: 0.480-4.710 mIU/L Jose Fisher, et al. A Practical Approach for the Verifications and Determination of Site- and Trimester-Specific Reference Intervals for Thyroid Function tests in . Thyroid, 2019:29:3:412-420. Loc E, et al. 2017 Guidelines of the [place] Thy[employer] for the Diagnosis and Management of Thyroid Disease during and the . Thyroid, 2017:27:3:315-389. Reference ranges were not locally established for this patient's age group. The normal values are based on the following source: Jayla W, Tim V. Reference Ranges for Adults and Children: Pre-analytical Considerations. [employer] Performed By: #### H DL1, 11743-9, 3016-3 #### [facility] CLIA [id number] [place] [address] [place] Coding Summaryon 02-24-2022 Coding Summary HTMLBase 64 PrqrcfpoXTg3iNi+PGhlYWQ+PE1 UEPMoQ96avRRrvG3SO3tJLF1XJZ YLKRVTYO4PAE8rbPU4OLiwZ8Wgq iAv DqtsoYNkOB64MOy4SBO2eShtHHq gwT7ioGHcR9a2ZvTuBD61pM44FY wtBPHeSbW8KdQleiwakUBy S3bzQeRnlOXqOfe+PHRhYmxlIHd xJWCeTJjzJZYgUdZayHcbWX7eAo 9yZGVyLWNvbGxhcHNlOiBj j8wuCNEpUKcsPU7wpApaV9ErcPO 9ICAwj0j8Ly83qQI+VLAiRWZ0oU pmAQndb751FiWqc5aaECM8 bVFmUNlsAPL9U03kt5W0MDArSBM aTRD9uXN2iS0aoCywbgpiJ8RyeN CwQqF2FOB3fNTxsV9sxPzh dnlipU7dWfx+P83LIT4IEHYLXP0 WUda3F4QlLahnpMF+XW40OSWpJR 67mBWvjQUnd8xirQm1DcVd NBCwXPC2vZtdNInib7AvHDZtY42 hqYQjy2Q4CWTyaUaiwGTnJoYddU D4uQ8vXBecbpwzg4kobbmr Fnjdu1ttdw66aN01R88fCJusRHD cCSA3BBZqBQKsaUhpym7ccU8iQl 8+QLfth9hub7tkoTu6YzEr UGDlciLtkBtySZV6d9IkCx39I7S owTeap2QsCtz5or97fYUag7S4jU A2URhoXULorA7lBSlyRzR9 TPWjHsBvvS41zKCeFDvrJv2qdYj mhWgcGJ9hPXNoxlrvDHLzpU9iOB HadDCnhZalQI0vCZSuhofq c819ZxVoRHH0MCKgcZZnS0BywW1 qKuVzFEQwKGSfI8KedZNiDJdrY1 38DXiaJgM9ZGZjfiJbS3Xu BFUtoEaeLiT2r8G7Tt9Xe9Jxtwi oRJC2UNydRQYmPbKzXbPzLoZ7P7 BhKig3UDJxfLjoEZ1xK2Js QIUghevtrsgbfHB0YCKnPOResU3 1nQHiXPcbFf1tu5C5q609ATWtSQ BltB05Am4olJsaUTJroIOE yS7rgeapd3samxutXmSsSMOzRRs 7OSd0TERtgGtoBiCuMWJ8DsU0GM R0jQPeaZ3ajSxlsgodyN2r Oyc+Q94zbL4dEJO1GSD7hmviGXV nteMzLO17CR39V8JaOvlkxBIraB U+JHBbgbZsbRqnAC0qWqBu e8cvw9VjQHjdB0BvNXVcPBnoAgp 7SZLhRQB8lWU6kN7bAGTmYQrse9 V6eFP1C4GbjmZwet1cy1wy ZBKaYXziW68kcCIrp5J4PBPywBT 4PTHpoRicMpYdvC19Ubi+PGNvbG iwd7YbVmmys0nze0dfgYa6 QpOnRVHiblRaxPvbGBM3n8UzRu6 7D83lSLnuACFgWJRwJIRfMJFnbT dggg0ysX2fLk6+PGNvbCB3 sHM8cK4kLCCsJlD9IBwyP735NwH ayHItBmcdw7iqr9dcyIi3YhYyUH LnvfDopRcxOXG5u7BtNu07 S41xIGuuFNAgOMMuZGHwXKExcPl iyy9lrP1cZv2+MQ6up0sclp37gK 48dHI+OQAkTZW9dWosAQmv FSYsmE1uFMhtBoQ5DJTpOlAnyH9 9bMXvSBblFh7foElisSrjPE5zMY Bhkddju133ZjBtk2haKNCx dGOkVRgnEOV6M64wy0L4RBZpPKS wSCO6aLK6rS3yhSeulwvloTIyzX plqhNtyQjwJCleWNcrC242 IHRvcDsnPlBhdGllbnQgTmFtZTo 3C3UwGgx6HITfxXduTB0mdINyPF guDs5tfNlnnAkjLU7cQNAb knphj350JwVwj0gjDLJxdWIgGHt sVWM0I22ws4N8AZZnLQAxKEU3bR A1sI3whOucshcumHKrwDav zfDygEqeAPdeBPfzO466MHOffZs tIeIrpkSdUHWldDC8DY06FR73sG Svd0S6rHM2Y4VuIIFxlehh gfuxhVD1HPFjSAOldV91Cn7rwSx sDi9iDWFiEJO6TWVesRUbG0HfwA 3aPrSxMMRyCVJsV5BgzOTt TUwmT959SVydXhG8RYEqfuAtP3N nZNSheHwcRgN8a1Z7Aq8ZV4Z6YU 28JE49cZHuo2H1jSZ7N8Gy DLBtspfhiupiiRU2ZMPkVGCykS1 9Hp6vhZxpMv0jWPZpZIQ8RWYtqT DjX5RgcH2vAqZrOZGnEMWv E3RkwDKhCOxzN143RFpbSzT0OIO xksEjG0FyRLUlyVpaIzK9n0V2Ab 8CJFh4RJ25CY04dTAdj9F1 yDG3O6FaWMIresjphlzmlNS9SWK rAQVvaN75Ro5hfHlnTs6eBDFcEC F3TVXtwMPrG4DxwS8aGfXk KOBqHSByS5JkmVXgHXdsZ327CPp uCyJ1CWWxjaOrZ7EhCJZowVnzEj Q7n3I1Fo3YPYFuFR16JCF3 oWO4TA37GW58S9OeYajpwSQjyUD +PHRhYmxlIHdpZHRoPScxMDAlJy ZlxYdwNN8iFz3wUVKfVOJu qRvphNCkSnCmk0kxMWOdJEcsWM3 rwOcfA3PcvKP8OIRsq4k6Qg24L2 8mQ8NgaUL+JOZzvQQ7jMF2 lH6bUqNkFmK6YZsrB755NvEaaAO xCykab1bej6eboHb8AoA5SKNmgp QarBnlBPU3x0EvLi97L47r IHdpZHRoPSIxNSUiIHZhbGlnbj0 ftN3rSa1+KAXhgUM3tRW1uF6vQt UmTkE1HQdsJ247RbAgbJGr Tnkvc8che5oblOy6KwAdMBWeesI hbEyvHLP2e9GaXo94D8KnnVcpp9 AyTpp2cf79eJIpp4C6yHT8 D7RzXZDcndodaFLrnEpuHT6pEQX uqcgeJSHjfP0oEHSeO0c8BrNbVi F7XRytG2NksjR4ZXRrnSUp YXmjGOH1E76te5D2MNTjCVHoSXA 2cSS1kE8spHieomxcpZAvcEknoe NojJljPVvqBUieR814MPMl zPebFWOjuM5pZCIjsSJckRbbTJ1 rEWRwuiakCtvHEqGFY7PDLOODUB 1LDRGBT9YYNWyPNLQRCSOW RTwvdGQ+VLAsWVF8fGidRSwaWFY aaV6lCXXrZ1c5IzPcUkO4GAfqN4 OmYKPwqybeWo48iW7zDpJc KfH4UEjkE9XaoqV7CPVhnLMhTKb hWLF2I42mb6J8WRMsOENvDBN8oT D5qY8xzJbyiuwisUOntBva jdJweHtsODtaSCplY916UFVqkTf wBoNhElV9UmOrNPF1A7XrNgi8AD WdtJosYO5atELrFOiaQp8x pTfipCtlLQ4uEKTddrpiQWIjyA3 nWHVyyIYetWarKW1jDWEqpyhut9 37RcPzNOK7CCSjqNPcE5Gt zU0xRmPqPECbEABkP8MkzBJaCBt jM846PJkrPlM0XQDvtrEgO3AlMF UdzQgaSqA2e6Z7Xo2iAmIU ZWFyczwvdGQ+QMTwMKJ5iSgmHCg gFRAfiZ7zZNDfB1w2PvHfVjV2DI djD0RcRZLwddchXo48nV1o SkYfNoX2PSxtU8EbccN3JVLsaFH wMWdmORP8O56zd6K4GJRzLREkJO Q7aAN4gB8adAergxbqdWBk iYflpiAkeJjoASuxTBujU236RRO vcDsnPkZFTUFMRTwvdGQ+PHRkIH L6vCiwOZddYFHtuQ0xFTMl V5a5UtMaAsJ3IKhqL8NeDQNnfnc lKi96fX7vGmSeBmO1LSaxV4Bnkc H9WDDpyXHzWRmgZPK8F65x p7Q1BLNxVUAbAES3zXS4cN8guLh nbjogbGVmdDsgdmVydGljYWwtYW oyK030KWGqtXpiZv3LYA45 GS29K5OwBgkebOTvbEG+PHRhYmx lIHdpZHRoPScxMDAlJyBzdHlsZT 1yNp4sEEHkITNnaAtsjNEq QqQfl1jvQJMbGFgpLT9vbRhvB8S mxVB7HZVoh2s9Vp06W49bR4UxhS A+LUDczEQ3dDZ2sL3zKtJs PwV6FFnfC469IjMolNAlYeqse5j sl6navPg5LgZvUSRxxxIbnNjmDH O6y1CoWl34F87uLTqhQQVx SDSsUPGjMOXmqJaecu8tpQ4bLd6 +WWItpIL2wPU7zN0kDbIgXhA5DA aeG602VaLrbQYqLxtyB52l L3TycUX+SIMdTmo7AKLtwHhuHO5 ruQYnQHyjRx0jEWS7XhTxDcEdSO qlQ7WhKKJxxebjsswpqTL8 FTEpTIUqsQ67Gg9kjFqvRq9kQLZ vEOD7OKGliIHiL7QvqM4dJsBxKY UuXRJbL5TkuLFgLPljB814 QEdqKtE3ZDKqvtJjB2XwPNGyzRi lXkM5o3M3Qd9MvYoazGLeFF6wPk LfMSs0A8BeUzh5GUNyaFvj ZR6mdNFiFTxoUg0lpOhzzQrvNS3 tPUJayorco726GuRnp2jsWWEbpQ LtVNxpWJT6I42le4Z2CSOc NREeYYA9tYQ5uY2oeWgvkjqzbLZ mhLxnlnZxuAgxGBskBRqaQ479ZV EqlZbsPnUCOoj1I3HnTwm6 TJHjkZffKM4viBRoYWudKs4ktHb uwCmvYH2oAEHjhrgwr675EfRnd4 gqXSCvwKHbNTjiVTY4Q39p h9D4CFCaOKZiNUB6uDT6rB1waKk nbjogbGVmdDsgdmVydGljYWwtYW ixG045RZUtlEclAa3UGox9 C5WbXgc2XHTaaVvtIF8drOZuIYf hIk7xuChjkUfhZK2jORAnwwsjb8 27WkCyz1hkXZIktNMvPRbi YKC6R14jt4G8FCOfCNGoDHY9bRA 1rA9ayKgeknfeuWWopNhlofFijJ vhJJouBLrpE796IYBqhJah PlBheWVyOjwvdGQ+YT26sx23T6U qRiriKqf9LBGzYLC3tPF3gY9iWG VcDUnbe7J0aCU7R2VznsUb ci1 (more content not included)... [facility] ED Clinical Summaryon 2021 ED Clinical Summary [facility] ? Urgent Care [address] [place] [id number] Clinical Summary PERSON INFORMATION Name: SHEYLA LEA Age: 16 Years Sex: FEMALE : 2005 MRN: Acct#: Visit Reason: UC - Ankle/Foot/Toe Pain or Swelling; UC - Foot/Toe Injury; RT FOOT PAIN Arrival: 02/19/2022 19:02:05 Discharge: 02/19/2022 20:18:00 LOS: 000 01:16 Check In: 02/19/2022 19:02:05 Checkout: 02/19/2022 20:18:00 Address: [address] [place] [address] PCP: KEVIN STOKES PROVIDER INFORMATION Provider Role Assigned Unassigned Ellen Mac DATA DESIGNER Nurse 02/19/2022 19:06:02 Levy Bee ED PA [...] Pain Follow-Up: With: Address: When: KEVIN STOKES [address] [place] [address] [phone] Business (1) Comments: Radiologist interpretation of the [...] continues recommended to follow-up with your orthopedic coder or can follow-up with our local orthopedic coder Dr. Ramírez's office is located at [address] [place] [address] [address] [phone] Continue on the acronym R.I.C.E. Rest, Ice Compression, Elevation this will help with pain Can ice for 15-20 minutes every 3 hours Can take 600mg of motrin/ibuprofen every 6-8 hours DIAGNOSIS: Ankle pain; Foot pain Patient Understands: Yes - Patient/family/caregiver verbalizes understanding of instructions given Comment: Normal [facility] ED Patient Summaryon 022 ED Patient Summary [facility] ? Urgent Care [address] [place] [address] PATIENT DISCHARGE INSTRUCTIONS Patient Information Name: SHEYLA LEA Age: 16 Years Date of : 2005 Reason For Visit: UC - Ankle/Foot/Toe Pain or Swelling; UC - Foot/Toe Injury; RT FOOT PAIN Arrival Time: 02/19/2022 19:02:05 Primary Care Physician: KEVIN STOKES Attending Physician: Levy Bee Comment: Patient Education With: Address: When: KEVIN STOKES [address] [place], [place] [id number] [facility] (1) Comments: Radiologist interpretation of the x-rays [...] continues recommended to follow-up with your orthopedic coder or can follow-up with our local orthopedic coder Dr. Ramírez's office is located at [address] [place] [address] Continue on the acronym R.I.C.E. Rest, Ice [...] clean and dry. General instructions ? Take eiqk-trj-fxcimxg and prescription medicines only as told by [...] provider. Document Revised: 08/06/2021 Document Reviewed: 08/06/2021 [employer] Patient Education ? 2021 [employer] Ankle Pain The ankle joint holds [...] your an (more content not included)... Normal [facility] Urgent Care Note- Provideron 02-19-2022 Urgent Care Note- Provider Patient: SHEYLA LEA Age: 16 years Sex: FEMALE : 2005 Associated Diagnoses: Ankle pain; Foot pain Author: Levy Bee Basic Information Time seen: Date & time 02/19/2022 19:06:00. History source: Patient. History limitation: None. History of Present Illness Patient is a 16-year-old female complaint of right foot and ankle pain. States he jumped during advent today and landed awkwardly on her foot [...] been selected or recorded.. Surgical history: Myringotomy ([id number]). History of tonsillectomy ([id number]).. Family history: No family history items have [...] wrap. Impression and Plan Diagnosis Ankle pain ([id number] M25.579, Discharge, Medical) Foot pain (UIV91-QF M79.673, Discharge, Medical) Plan Patient was given the following educational materials: Ankle Pain, Foot Pain, Foot Pain, Ankle Pain, Foot Pain, Ankle Pain. Follow up with: KEVIN LANTIGUA Radiologist interpretation of the x-rays negative for fracture or dislocation If the pain continues recommended to follow-up with your orthopedic coder or can follow-up with our local orthopedic coder Dr. Ramírez's office is located at [address] [place] [address] There is no obvious fracture or deformity on review the x-ray today. Official radiological interpretation will be available in the next 24-36 hours you will be notified of any discrepancy in the interpretation. No weightbearing for the next 2 days, can then slowly b (more content not included)... Normal [facility] Urgent Care [place] 022 Urgent Care Record [facility] ? Urgent Care [address] [place], [place] [id number] PATIENT DISCHARGE INSTRUCTIONS Patient Information Name: SHEYLA LEA Age: 16 Years Date of : 2005 Reason For Visit: UC - Ankle/Foot/Toe Pain or Swelling; UC - Foot/Toe Injury; RT FOOT PAIN Arrival Time: 02/19/2022 19:02:05 Primary Care Physician: KEVIN STOKES Attending Physician: Levy Bee Comment: Visit Diagnosis: Diagnoses This Visit Ankle pain (M25.579) Foot pain (M79.673) UC - Ankle/Foot/Toe Pain or Swelling ([id number]) UC - Foot/Toe Injury ([id number]) If you received any narcotics, sedation, or [...] legal documents With: Address: When: KEVIN STOKES [address] [place] [address] Business (1) Comments: Radiologist interpretation of the [...] continues recommended to follow-up with your orthopedic coder or can follow-up with our local orthopedic coder Dr. Ramírez's office is located at [address] [place] [address] Continue on the acronym R.I.C.E. Rest, Ice Compression, Elevation this will help with pain Can ice for 15-20 minutes every 3 hours Can take 600mg of motrin/ibuprofen every 6-8 hours Medication Information: The exam and treatment you received today in the [facility] were for an urgent problem and are not intended as complete care. It is important for you to follow up with a doctor, nurse practitioner, or physician?s educational assistant for ongoing care. If your symptoms [...] so we can reach you if necessary. [facility] has provided you with a complete list of medications post discharge. Please inform your date puller/provider of your visit and for further instruction [...] are safe fo (more content not included)... [facility] XR Ankle Complete Righton XR [...] Bynum MD 02/19/22 7:53 pm Technologist: REGAN [facility] XR Foot Complete Righton XR [...] Bynum MD 02/19/22 8:01 pm Technologist: Minnie [facility] Vital Signs Date Time Vital Sign Value Performing Clinician Facility 01-31-2025 16:13-0400 Body mass index (BMI) [Ratio] 42.3 kg/m2 Nichelle NAVA Work Phone: [facility] 01-31-2025 16:13-0400 Body weight 108.32 kg Nichelle NAVA Work Phone: [facility] 01-31-2025 16:13-0400 Diastolic blood pressure 76 mm[Hg] Nihcelle NAVA Work Phone: [facility] 01-31-2025 16:13-0400 Systolic blood pressure 120 mm[Hg] Nichelle NAVA Work Phone: [facility] 01-02-2025 11:39-0400 Body mass index (BMI) [Ratio] 41.45 kg/m2 Gerardo Viri DO Work Phone: [facility] 01-02-2025 11:39-0400 Body weight 106.14 kg Gerardo Viri DO Work Phone: [facility] 01-02-2025 11:39-0400 Diastolic blood pressure 70 mm[Hg] Gerardo Viri DO Work Phone: [facility] 01-02-2025 11:39-0400 Systolic blood pressure 108 mm[Hg] Gerardo Viri DO Work Phone: [facility] 12-29-2024 10:06-0400 Body height 160 cm Yuval Loya MD Work Phone: [facility] 12-29-2024 10:06-0400 Body mass index (BMI) [Ratio] 41.5 kg/m2 Yuval Loya MD Work Phone: [facility] 12-29-2024 10:06-0400 Body weight 106.23 kg Yuval Loya MD Work Phone: [facility] 12-29-2024 10:06-0400 Diastolic blood pressure 59 mm[Hg] Yuavl Loya MD Work Phone: [facility] 12-29-2024 10:06-0400 Heart rate 86 /min Yuval Loya MD Work Phone: [facility] 12-29-2024 10:06-0400 Systolic blood pressure 109 mm[Hg] Yuval Loya MD Work Phone: [facility] 12-19-2024 13:18-0400 Body mass index (BMI) [Ratio] 41.12 kg/m2 Gerardo Viri DO Work Phone: [facility] 12-19-2024 13:18-0400 Body weight 105.29 kg Gerardo Viri DO Work Phone: [facility] 12-19-2024 13:18-0400 Diastolic blood pressure 78 mm[Hg] Gerardo Viri DO Work Phone: [facility] 12-19-2024 13:18-0400 Systolic blood pressure 118 mm[Hg] Gerardo Viri DO Work Phone: [facility] 12-07-2024 15:22-0400 Body mass index (BMI) [Ratio] 41.24 kg/m2 Viri Ob [facility] 12-07-2024 15:22-0400 Body weight 105.6 kg Viri Ob [facility] 11-22-2024 13:45-0400 Body mass index (BMI) [Ratio] 40.23 kg/m2 Nichelle NAVA Work Phone: [facility] 11-22-2024 13:45-0400 Body weight 103.02 kg Nichelle Sanchez PA Work Phone: [facility] 11-22-2024 13:45-0400 Diastolic blood pressure 80 mm[Hg] Nichelle Sanchez PA Work Phone: [facility] 11-22-2024 13:45-0400 Systolic blood pressure 128 mm[Hg] Nichelle Sanchez PA Work Phone: [facility] 04-10-2024 09:35-0500 Body mass index (BMI) [Ratio] 36.99 kg/m2 Gerardo Viri DO Work Phone: [facility] 04-10-2024 09:35-0500 Body weight 94.71 kg Gerardo Viri DO Work Phone: [facility] 04-10-2024 09:35-0500 Diastolic blood pressure 74 mm[Hg] Gerardo Viri DO Work Phone: [facility] 04-10-2024 09:35-0500 Systolic blood pressure 120 mm[Hg] Gerardo Viri DO Work Phone: [facility] 03-31-2024 08:44-0500 Body height 160 cm Anita MORALES Work Phone: [facility] 03-31-2024 08:44-0500 Body mass index (BMI) [Ratio] 36.6 kg/m2 Anita Elmore APRN-CYBER DEFENSE INCIDENT RESPONDER Work Phone: [facility] 03-31-2024 08:44-0500 Body temperature 97.59 [degF] Anita Elmore [employer] SUPERVISOR-CYBER DEFENSE INCIDENT RESPONDER Work Phone: [facility] 03-31-2024 08:44-0500 Body weight 93.71 kg Anita Elmore [employer] SUPERVISOR-CYBER DEFENSE INCIDENT RESPONDER Work Phone: [facility] 03-31-2024 08:44-0500 Diastolic blood pressure 70 mm[Hg] Anita Elmore [employer] SUPERVISOR-CYBER DEFENSE INCIDENT RESPONDER Work Phone: [facility] 03-31-2024 08:44-0500 Heart rate 90 /min Anita Elmore APRN-CYBER DEFENSE INCIDENT RESPONDER Work Phone: [facility] 03-31-2024 08:44-0500 Respiratory rate 18 /min Anita Elmore APRN-CYBER DEFENSE INCIDENT RESPONDER Work Phone: [facility] 03-31-2024 08:44-0500 SaO2% (BldA) [Mass fraction] 100 % Anita Elmore APRN-CYBER DEFENSE INCIDENT RESPONDER Work Phone: [facility] 03-31-2024 08:44-0500 Systolic blood pressure 116 mm[Hg] Anita Elmore APRN-CYBER DEFENSE INCIDENT RESPONDER Work Phone: [facility] 03-07-2024 14:44-0400 Body height 160 cm Gerardo Viri DO Work Phone: [facility] 03-07-2024 14:44-0400 Body mass index (BMI) [Ratio] 36.67 kg/m2 Gerardo Viri [employer] Work Phone: [facility] 03-07-2024 14:44-0400 Body weight 93.89 kg Gerardo Viri [employer] Work Phone: [facility] 03-07-2024 14:44-0400 Diastolic blood pressure 82 mm[Hg] Gerardo Viri DO Work Phone: [facility] 03-07-2024 14:44-0400 Systolic blood pressure 138 mm[Hg] Gerardo Viri DO Work Phone: [facility] 02-18-2024 11:58-0400 Body height 160 cm Anitalarry Elmore [employer] SUPERVISOR-CYBER DEFENSE INCIDENT RESPONDER Work Phone: [facility] 02-18-2024 11:58-0400 Body mass index (BMI) [Ratio] 35.78 kg/m2 Anita 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 Work Phone: [facility] 02-18-2024 11:58-0400 Body temperature 98.1 [degF] Anita 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 Work Phone: [facility] 02-18-2024 11:58-0400 Body weight 91.63 kg Anita Elmore [employer] SUPERVISOR-CYBER DEFENSE INCIDENT RESPONDER Work Phone: [facility] 02-18-2024 11:58-0400 Diastolic blood pressure 60 mm[Hg] Anita 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 Work Phone: [facility] 02-18-2024 11:58-0400 Heart rate 79 /min Anitalarry Elmore [employer] SUPERVISOR-CYBER DEFENSE INCIDENT RESPONDER Work Phone: [facility] 02-18-2024 11:58-0400 Respiratory rate 18 /min Anitalarry Elmore [employer] SUPERVISOR-CYBER DEFENSE INCIDENT RESPONDER Work Phone: [facility] 02-18-2024 11:58-0400 SaO2% (BldA) [Mass fraction] 99 % Anita 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 Work Phone: [facility] 02-18-2024 11:58-0400 Systolic blood pressure 100 mm[Hg] Anita 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 Work Phone: [facility] 02-03-2024 13:24-0400 Body height 160 cm Anita 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 Work Phone: [facility] 02-03-2024 13:24-0400 Body mass index (BMI) [Ratio] 35.76 kg/m2 Anita Elmore [employer] SUPERVISOR-CYBER DEFENSE INCIDENT RESPONDER Work Phone: [facility] 02-03-2024 13:24-0400 Body temperature 98.8 [degF] Anita Elmore [employer] SUPERVISOR-CYBER DEFENSE INCIDENT RESPONDER Work Phone: [facility] 02-03-2024 13:24-0400 Body weight 91.58 kg Anita Elmore [employer] SUPERVISOR-CYBER DEFENSE INCIDENT RESPONDER Work Phone: [facility] 02-03-2024 13:24-0400 Diastolic blood pressure 70 mm[Hg] Anita Elmore [employer] SUPERVISOR-CYBER DEFENSE INCIDENT RESPONDER Work Phone: [facility] 02-03-2024 13:24-0400 Heart rate 85 /min Anita Elmore [employer] SUPERVISOR-CYBER DEFENSE INCIDENT RESPONDER Work Phone: [facility] 02-03-2024 13:24-0400 Respiratory rate 18 /min Anita Elmore [employer] SUPERVISOR-CYBER DEFENSE INCIDENT RESPONDER Work Phone: [facility] 02-03-2024 13:24-0400 SaO2% (BldA) [Mass fraction] 99 % Anita Elmore [employer] SUPERVISOR-CYBER DEFENSE INCIDENT RESPONDER Work Phone: [facility] 02-03-2024 13:24-0400 Systolic blood pressure 100 mm[Hg] Anita Elmore [employer] SUPERVISOR-CYBER DEFENSE INCIDENT RESPONDER Work Phone: [facility] 01-25-2024 14:23-0400 Body mass index (BMI) [Ratio] 36.14 kg/m2 Gerardo Viri DO Work Phone: [facility] 01-25-2024 14:23-0400 Body weight 92.53 kg Gerardo Viri DO Work Phone: [facility] 01-25-2024 14:23-0400 Diastolic blood pressure 78 mm[Hg] Gerardo Viri DO Work Phone: [facility] 01-25-2024 14:23-0400 Systolic blood pressure 126 mm[Hg] Gerardo Meredith DO Work Phone: [facility] 11-23-2023 16:09-0400 Body height 160 cm Alphonso Furlong DO Work Phone: [facility] 11-23-2023 16:09-0400 Body mass index (BMI) [Ratio] 38.85 kg/m2 Alphonso Furlong DO Work Phone: [facility] 11-23-2023 16:09-0400 Body temperature 98.2 [degF] Alphonso Furlong DO Work Phone: [facility] 11-23-2023 16:090400 Body weight 99.47 kg Alphonso Furlong DO Work Phone: [facility] 11-23-2023 16:09-0400 Diastolic blood pressure 60 mm[Hg] Alphonso Furlong DO Work Phone: [facility] 11-23-2023 16:09-0400 Heart rate 82 /min Alphonso Furlong DO Work Phone: [facility] 11-23-2023 16:09-0400 Respiratory rate 20 /min Alphonso Furlong DO Work Phone: [facility] 11-23-2023 16:09-0400 SaO2% (BldA) [Mass fraction] 98 % Alphonso Furlong DO Work Phone: [facility] 11-23-2023 16:09-0400 Systolic blood pressure 114 mm[Hg] Alphonso Furlong DO Work Phone: [facility] 10-28-2023 16:31-0400 Body height 160 cm Anita Gutierresuch [employer] SUPERVISOR-CYBER DEFENSE INCIDENT RESPONDER Work Phone: [facility] 10-28-2023 16:31-0400 Body mass index (BMI) [Ratio] 39.13 kg/m2 Anita 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 Work Phone: [facility] [employer] [facility] 10-28-2023 16:31-0400 Body temperature 98.71 [degF] Anita Elmore [employer] SUPERVISOR-CYBER DEFENSE INCIDENT RESPONDER Work Phone: [facility] 10-28-2023 16:31-0400 Body weight 100.2 kg Anita Elmore [employer] SUPERVISOR-CYBER DEFENSE INCIDENT RESPONDER Work Phone: [facility] 10-28-2023 16:31-0400 Diastolic blood pressure 60 mm[Hg] Anita Elmore [employer] SUPERVISOR-CYBER DEFENSE INCIDENT RESPONDER Work Phone: [facility] [employer] [facility] 10-28-2023 16:31-0400 Heart rate 71 /min Anita Elmore [employer] SUPERVISOR-CYBER DEFENSE INCIDENT RESPONDER Work Phone: [facility] 10-28-2023 16:31-0400 Respiratory rate 18 /min Anita Elmore [employer] SUPERVISOR-CYBER DEFENSE INCIDENT RESPONDER Work Phone: [facility] 10-28-2023 16:31-0400 SaO2% (BldA) [Mass fraction] 98 % Anita Elmore [employer] SUPERVISOR-CYBER DEFENSE INCIDENT RESPONDER Work Phone: [facility] [employer] [facility] 10-28-2023 16:31-0400 Systolic blood pressure 94 mm[Hg] Anita Elmore [employer] SUPERVISOR-CYBER DEFENSE INCIDENT RESPONDER Work Phone: [facility] 09-28-2023 11:36-0400 Body height 160 cm Lima Toussaint [employer] SUPERVISOR-FOXING CUTTING MACHINE OPERATOR Work Phone: [facility] 09-28-2023 11:36-0400 Body mass index (BMI) [Ratio] 38.12 kg/m2 Lima Toussaint [employer] SUPERVISOR-FOXING CUTTING MACHINE OPERATOR Work Phone: [facility] [employer] [facility] 09-28-2023 11:36-0400 Body temperature 98.6 [degF] Lima Toussaint [employer] SUPERVISOR-FOXING CUTTING MACHINE OPERATOR Work Phone: [facility] [employer] [facility] 09-28-2023 11:36-0400 Body weight 97.61 kg Lima Toussaint [employer] SUPERVISOR-FOXING CUTTING MACHINE OPERATOR Work Phone: [facility] [employer] [facility] 09-28-2023 11:36-0400 Diastolic blood pressure 60 mm[Hg] Lima Toussaint [employer] SUPERVISOR-FOXING CUTTING MACHINE OPERATOR Work Phone: [facility] 09-28-2023 11:36-0400 Heart rate 86 /min Lima Toussaint [employer] SUPERVISOR-FOXING CUTTING MACHINE OPERATOR Work Phone: [facility] 09-28-2023 11:36-0400 SaO2% (BldA) [Mass fraction] 98 % Lima Toussaint [employer] SUPERVISOR-FOXING CUTTING MACHINE OPERATOR Work Phone: [facility] [employer] [facility] 09-28-2023 11:36-0400 Systolic blood pressure 110 mm[Hg] Lima Toussaint [employer] SUPERVISOR-FOXING CUTTING MACHINE OPERATOR Work Phone: [facility] 08-25-2023 13:04-0400 Body height 160 cm Anitalarry Elmore [employer] SUPERVISOR-CYBER DEFENSE INCIDENT RESPONDER Work Phone: [facility] 08-25-2023 13:04-0400 Body mass index (BMI) [Ratio] 38.48 kg/m2 Anitalarry Elmore [employer] SUPERVISOR-CYBER DEFENSE INCIDENT RESPONDER Work Phone: [facility] 08-25-2023 13:04-0400 Body temperature 98.29 [degF] Anitalarry Elmore [employer] SUPERVISOR-CYBER DEFENSE INCIDENT RESPONDER Work Phone: [facility] [employer] [facility] 08-25-2023 13:04-0400 Body weight 98.52 kg Anita 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 Work Phone: [facility] 08-25-2023 13:04-0400 Diastolic blood pressure 62 mm[Hg] Anita 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 Work Phone: [facility] 08-25-2023 13:04-0400 Heart rate 92 /min Anitalarry Elmore [employer] SUPERVISOR-CYBER DEFENSE INCIDENT RESPONDER Work Phone: [facility] 08-25-2023 13:04-0400 SaO2% (BldA) [Mass fraction] 97 % Anita 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 Work Phone: [facility] 08-25-2023 13:04-0400 Systolic blood pressure 110 mm[Hg] Anita Elmore [employer] SUPERVISOR-CYBER DEFENSE INCIDENT RESPONDER Work Phone: [facility] 08-25-2023 07:09-0400 Body height 160 cm Pacc 3 Work Phone: [facility] 08-25-2023 07:09-0400 Body temperature 97.59 [degF] Pacc 3 Work Phone: [facility] 08-25-2023 07:09-0400 Body weight 98.7 kg Pacc 3 Work Phone: [facility] 08-25-2023 07:09-0400 Diastolic blood pressure 63 mm[Hg] Pacc 3 Work Phone: [facility] 08-25-2023 07:09-0400 Heart rate 66 /min Pacc 3 Work Phone: [facility] 08-25-2023 07:09-0400 SaO2% (BldA) [Mass fraction] 100 % Pacc 3 Work Phone: [facility] 08-25-2023 07:09-0400 Systolic blood pressure 116 mm[Hg] Pacc 3 Work Phone: [facility] 04-02-2023 07:15-0500 Body height 160.02 cm Aime [employer] Other [employer] Other 04-02-2023 07:15-0500 Body mass index (BMI) [Ratio] 40.07 kg/m2 [employer] Other [employer] Other 04-02-2023 07:15-0500 Body temperature 99.1 [degF] [employer] Other [employer] Other 04-02-2023 07:15-0500 Body weight 102.6 kg Aime Schwerer Other [employer] Other 04-02-2023 07:15-0500 Diastolic blood pressure 78 mm[Hg] Aime Schwerer Other [employer] Other 04-02-2023 07:15-0500 SaO2% (BldA) [Mass fraction] 99 % Aime Schwerer Other [employer] Other 04-02-2023 07:15-0500 Systolic blood pressure 128 mm[Hg] Aime Schwerer Other [employer] Other 01-15-2023 10:45-0400 Body height 158.75 cm Aime Schwerer Other [employer] Other 01-15-2023 10:45-0400 Body mass index (BMI) [Ratio] 40.33 kg/m2 Aime Schwerer Other [employer] Other 01-15-2023 10:45-0400 Body weight 101.65 kg Aime Schwerer Other [employer] Other 01-15-2023 10:45-0400 Diastolic blood pressure 78 mm[Hg] Aime Schwerer Other [employer] Other 01-15-2023 10:45-0400 Respiratory rate 18 /min Aime Schwerer Other [employer] Other 01-15-2023 10:45-0400 SaO2% (BldA) [Mass fraction] 100 % Aime Schwerer Other [employer] Other 01-15-2023 10:45-0400 Systolic blood pressure 138 mm[Hg] Aime Goff Other [facility] [employer] Other 05-28-2022 08:32-0500 Body height 167.6 cm Latasha Bobo MD Work Phone: [facility] 05-28-2022 08:32-0500 Body mass index (BMI) [Percentile] Per age and sex 97.14 % Latasha Bobo MD Work Phone: [facility] 05-28-2022 08:32-0500 Body weight 93.44 kg Latasha Bobo MD Work Phone: [facility] 04-15-2022 14:01-0500 Body height 160 cm Mana Abiodunsuto [employer] SUPERVISOR.CYBER DEFENSE INCIDENT RESPONDER Work Phone: [facility] 04-15-2022 14:01-0500 Body mass index (BMI) [Percentile] Per age and sex 98.09 % Mana Bjvissuto [employer] SUPERVISOR.CYBER DEFENSE INCIDENT RESPONDER Work Phone: [facility] 04-15-2022 14:01-0500 Body weight 91.63 kg Mana Bjvissuto [employer] SUPERVISOR.CYBER DEFENSE INCIDENT RESPONDER Work Phone: [facility] 04-15-2022 14:01-0500 Diastolic blood pressure 74 mm[Hg] Mana Bonvissuto [employer] SUPERVISOR.CYBER DEFENSE INCIDENT RESPONDER Work Phone: [facility] 04-15-2022 14:01-0500 Heart rate 77 /min Mana Bonvissuto [employer] SUPERVISOR.CYBER DEFENSE INCIDENT RESPONDER Work Phone: [facility] 04-15-2022 14:01-0500 Systolic blood pressure 124 mm[Hg] Mana Bonvissuto [employer] SUPERVISOR.CYBER DEFENSE INCIDENT RESPONDER Work Phone: [facility] Encounters Encounter Date Encounter Type Care Provider Facility Start: 01-31-2025 End: 01-31-2025 flow sheet Nichelle NAVA Work Phone: [facility] Comment on above: 15 weeks gestation o f ([facility]); Second trimester ([facility]); Screening, , for anatomic survey ([facility]) Start: 01-31-2025 End: 01-31-2025 ambulatory NICHELLE SANCHEZ [...] on above: 11 weeks gestation o f ([facility]); First trimester ([facility]); Thyroid disease ; H/O thyroidectomy; Exposure to STD; Vaginal discharge; Constipation, unspecified constipation type Start: 12-29-2024 End: 12-29-2024 Orders Only Kanchan Guzmán RN [facility] Comment on above: Thyroid disease affe cting (Primary Dx) Start: 12-29-2024 End: 12-29-2024 Office consultation new/estab patient 60 min Andrews Harrison MD Work Phone: [facility] Comment on above: Thyroid disease affe cting (Primary Dx); Postoperative hypothyroidism Start: 12-28-2024 End: 12-28-2024 Chart abstracting Yuval Loya MD Work Phone: [facility] Start: 12-19-2024 End: 12-19-2024 Bamboo flowsheet Gerardo Viri DO Work Phone: [facility] Start: 12-19-2024 End: 12-19-2024 Bamboo flowsheet Gerardo Viri DO Work Phone: [facility] Start: 12-19-2024 End: 12-19-2024 flow sheet Gerardo Viri DO Work Phone: [facility]ASUT[facility] Comment on above: First trimester preg carlos ([facility]); 9 weeks gestation of ([facility]); Encounter to discuss test results; headache, antepartum ([facility]); Nausea Start: 12-19-2024 End: 12-19-2024 ambulatory GERARDO VIRI Not Available Start: 12-18-2024 End: 12-18-2024 ambulatory NON STAFF Facility:[facility] Start: 12-16-2024 End: 12-16-2024 Clinisync Result Encounter [...] 11-22-2024 Bamboo flowsheet Nichelle NAVA Work Phone: [facility] Start: 11-22-2024 End: 11-22-2024 Bamboo flowsheet Nichelle NAVA Work Phone: [facility] Start: 11-22-2024 End: 11-22-2024 ambulatory NICHELLE SANCHEZ Not Available Start: 11-22-2024 End: 11-22-2024 Office outpatient visit 15 minutes Nichelle NAVA Work Phone: [facility] Comment on above: Nausea (Primary Dx); Cramping affecting , antepartum ([facility]-HCC); Missed menses Start: 11-18-2024 End: 11-18-2024 Clinisync Result Encounter Gerardo Viri DO Work Phone: [facility] External Department Unsolicited Start: 11-18-2024 End: 11-18-2024 Clinisync Result Encounter Gerardo Viri DO Work Phone: [facility] External Department Unsolicited Start: 11-13-2024 End: 11-13-2024 Clinisync Result Encounter Gerardo Viri DO Work Phone: [facility] External Department Unsolicited Start: 11-13-2024 End: 11-13-2024 Clinisync Result Encounter Gerardo Viri DO Work Phone: [facility] External Department Unsolicited Start: 10-12-2024 End: 10-12-2024 [facility] Start: 05-09-2024 End: 05-09-2024 Bamboo flowsheet Loretta Winkler MD Work Phone: [facility] Start: 05-09-2024 End: 05-09-2024 Bamboo flowsheet Loretta Winkler MD Work Phone: [facility] Start: 05-09-2024 End: 05-09-2024 ambulatory LORETTA WINKLER Not Available Start: 04-26-2024 End: 05-01-2024 Refill Anita Elmore [employer] SUPERVISOR-CYBER DEFENSE INCIDENT RESPONDER Work Phone: [facility] Start: 04-10-2024 End: 04-10-2024 Bamboo flowsheet Gerardo Vrii DO Work Phone: [facility] Start: 04-10-2024 End: 04-10-2024 Bamboo flowsheet Gerardo Viri DO Work Phone: [facility] Start: 04-10-2024 End: 04-10-2024 ambulatory GERARDO VIRI Not Available Start: 04-10-2024 End: 04-10-2024 Office outpatient visit 15 minutes Gerardo Viri DO Work Phone: [facility] Comment on above: Encounter for weight management Start: 04-03-2024 End: 04-03-2024 Orders Only Anitalarry Elmore [employer] SUPERVISOR-CYBER DEFENSE INCIDENT RESPONDER Work Phone: [facility] Comment on above: Postoperative hypoth yroidism (Primary Dx) Start: 03-31-2024 End: 03-31-2024 ambulatory [facility] Start: 03-31-2024 End: 03-31-2024 Office outpatient visit 15 minutes Anitalarry Elmore [employer] SUPERVISOR-CYBER DEFENSE INCIDENT RESPONDER Work Phone: [facility] Comment on above: Postoperative hypoth yroidism (Primary Dx); Acute nonintractable headache, unspecified headache type; Gastroesophageal reflux disease, unspecified whether esophagitis present; Immunization due Start: 03-31-2024 End: 03-31-2024 ambulatory [facility] Start: 03-20-2024 End: 03-20-2024 Clinisync Result Encounter Gerardo Viri DO Work Phone: [facility] External Department Unsolicited Start: 03-20-2024 End: 03-20-2024 Clinisync Result Encounter Gerardo Viri DO Work Phone: [facility] External Department Unsolicited Start: 03-18-2024 End: 03-20-2024 Refill Anita Elmore [employer] SUPERVISOR-CYBER DEFENSE INCIDENT RESPONDER Work Phone: [facility] [...] 03-13-2024 End: 03-13-2024 Orders Only Anita Elmore [employer] SUPERVISOR-CYBER DEFENSE INCIDENT RESPONDER [facility] [...] Start: 03-03-2024 End: 03-03-2024 ambulatory Brooke Conde Facility:[facility] Start: 03-01-2024 End: 03-02-2024 Refill Anita Natalia Elmore [employer] SUPERVISOR-CYBER DEFENSE INCIDENT RESPONDER Work Phone: [facility] Start: 02-23-2024 End: 02-23-2024 Telephone encounter Asad Sam [facility] Start: 02-21-2024 End: 02-21-2024 Orders Only Anita Natalia Elmore [employer] SUPERVISOR-CYBER DEFENSE INCIDENT RESPONDER Work Phone: [facility] Comment on above: Postoperative hypoth yroidism (Primary Dx) Start: 02-18-2024 End: 02-18-2024 ambulatory [facility] Start: 02-18-2024 End: 02-18-2024 Office outpatient visit 15 minutes Anita Natalia Elmore [employer] SUPERVISOR-CYBER DEFENSE INCIDENT RESPONDER Work Phone: [facility] Comment on above: Gastroesophageal ref lux disease, unspecified whether esophagitis present (Primary Dx); Postoperative hypothyroidism; Acute hemorrhoid; Delayed gastric emptying; Influenza vaccination administered at current visit Start: 02-18-2024 End: 02-18-2024 ambulatory [facility] Start: 02-17-2024 End: 02-18-2024 Refill Anita Natalia Elmore [employer] SUPERVISOR-CYBER DEFENSE INCIDENT RESPONDER Work Phone: [facility] Start: 02-10-2024 End: 02-10-2024 Orders Only Anita Natalia Elmore [employer] SUPERVISOR-CYBER DEFENSE INCIDENT RESPONDER Work Phone: [facility] Comment on above: Esophageal dysphagia (Primary Dx); Gastroesophageal reflux disease without esophagitis Start: 02-04-2024 End: 02-04-2024 Orders Only Anita Natalia Elmore [employer] SUPERVISOR-CYBER DEFENSE INCIDENT RESPONDER Work Phone: [facility] Start: 02-04-2024 End: 02-05-2024 Evaluation and management of inpatient [facility] Start: 02-03-2024 End: 02-03-2024 ambulatory NICHELLE SANCHEZ Not Available Start: 02-03-2024 End: 02-03-2024 Online digital e/m svc est pt <7 d 5-10 minutes Nichelle NAVA Work Phone: [facility] Comment on above: Weight gain (Primary Dx) Start: 02-03-2024 End: 02-03-2024 Bamboo flowsheet Nichelle NAVA Work Phone: [facility] Start: 02-03-2024 End: 02-03-2024 Bamboo flowsheet Nichelle NAVA Work Phone: [facility] Start: 02-03-2024 End: 02-03-2024 Office outpatient visit 25 minutes [facility] [employer] SUPERVISOR-CYBER DEFENSE INCIDENT RESPONDER Work Phone: [facility] Comment on above: Gastroesophageal ref lux disease, unspecified whether esophagitis present (Primary Dx); Esophageal dysphagia; Allergic contact dermatitis, unspecified trigger; Chronic idiopathic constipation Start: 02-03-2024 End: 02-03-2024 ambulatory [facility] Start: 01-28-2024 End: 01-28-2024 Refill [facility] [employer] SUPERVISOR-CYBER DEFENSE INCIDENT RESPONDER Work Phone: [facility] Start: 01-26-2024 End: 01-26-2024 Telephone encounter Roxana Han [facility] Start: 01-25-2024 End: 01-25-2024 Postop follow up visit related to original px Gerardoarya Meredith DO Work Phone: [facility] Comment on above: Anxiety, generalized (CMS/HCC) (Primary Dx); Postoperative visit; S/P laparoscopy; Encounter for repeat prescription of oral contraceptives Start: 01-25-2024 End: 01-25-2024 Bamboo flowsheet Gerardo Viri DO Work Phone: [facility] Start: 01-25-2024 End: 01-25-2024 Bamboo flowsheet Gerardo Viri DO Work Phone: [facility] Start: 01-23-2024 End: 01-26-2024 Refill Anita L 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 Work Phone: [facility] Start: 01-14-2024 End: 01-14-2024 Clinisync Result Encounter Gerardo Viri DO Work Phone: [facility] External Department Unsolicited Start: 01-14-2024 End: 01-14-2024 Clinisync Result Encounter Gerardo Viri DO Work Phone: [facility] External Department Unsolicited Start: 01-14-2024 End: 01-14-2024 ambulatory Gerardo Viri Facility:[facility] Start: 12-27-2023 End: 12-29-2023 Refill Anita L 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 Work Phone: [facility] Start: 12-07-2023 End: 12-07-2023 Orders Only Anita L 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 [facility] Start: 12-06-2023 End: 12-06-2023 Orders Only Anita L 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 Work Phone: [facility] Start: 11-25-2023 End: 11-25-2023 Refill Anita L 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 [facility] Start: 11-23-2023 End: 11-23-2023 Office outpatient visit 15 minutes Alphonsomckayla Garcia DO Work Phone: [facility] Comment on above: Tinea pedis of both feet (Primary Dx) Start: 11-23-2023 End: 11-23-2023 ambulatory JENNER Shanel [facility] Start: 10-29-2023 End: 10-29-2023 Orders Only Anita Elmore [employer] SUPERVISOR-CYBER DEFENSE INCIDENT RESPONDER Work Phone: [facility] Comment on above: Postoperative hypoth yroidism (Primary Dx) Start: 10-28-2023 End: 10-28-2023 Patient encounter status Anita Elmore [employer] SUPERVISOR-CYBER DEFENSE INCIDENT RESPONDER Work Phone: [facility] Work Phone: Start: 10-28-2023 End: 10-28-2023 Periodic preventive med est patient 18-39 yrs Anita Elmore [employer] SUPERVISOR-CYBER DEFENSE INCIDENT RESPONDER Work Phone: [facility] Comment on above: Wellness examination (Primary Dx); Tinea pedis of right foot; Postoperative hypothyroidism; Generalized anxiety disorder; High risk heterosexual behavior Start: 10-28-2023 End: 10-28-2023 ambulatory [facility] Start: 10-04-2023 Refill Yesideclan Zepeda MD Work Phone: Endocrinology Comment on above: Refill Request Start: 09-28-2023 End: 09-28-2023 Office outpatient visit 15 minutes Lima Toussaint [employer] SUPERVISOR-FOXING CUTTING MACHINE OPERATOR Work Phone: [facility] Comment on above: Flu-like symptoms (P rimary Dx); Acute non-recurrent frontal sinusitis; Yeast vaginitis Start: 09-28-2023 End: 09-28-2023 ambulatory LIMA SWAIN [facility] Start: 09-09-2023 End: 09-10-2023 ambulatory LATASHA BOBO Facility:[facility] Start: 09-09-2023 End: 09-10-2023 Patient encounter procedure Latasha Bobo MD Work Phone: Otolarynogology Comment on above: Hypothyroidism (acqu ired) (Primary Dx) Start: 09-03-2023 End: 09-04-2023 ambulatory LATASHA BOBO Facility:[facility] Start: 09-02-2023 Admission to same da y surgery center Latasha Bobo MD Work Phone: Otolaryngology Comment on above: surgery time Start: 09-02-2023 ambulatory Latasha lanza MD Work Phone: [facility] Start: 08-25-2023 End: 08-25-2023 Office outpatient new 45 minutes Anita Elmore [employer] SUPERVISOR-CYBER DEFENSE INCIDENT RESPONDER Work Phone: [facility] Comment [...] End: 08-25-2023 Patient encounter status Anita Fisher [facility] [employer] SUPERVISOR-CYBER DEFENSE INCIDENT RESPONDER Work Phone: [facility] Work Phone: Start: 08-25-2023 End: 08-25-2023 ambulatory [facility] Start: 08-25-2023 Encounter for genera l adult medical examination without abnormal findings [facility] Start: 08-25-2023 End: 08-26-2023 ambulatory LATASHA BOBO Facility:[facility] Start: 08-25-2023 End: 08-26-2023 [facility] Start: 08-25-2023 Encounter for other preprocedural examination ANITA ELMORE [facility] Start: 08-25-2023 End: 08-25-2023 Admission to establishment Pacc Main 3 Work Phone: [facility] Start: 08-25-2023 End: 08-25-2023 ambulatory Pacc Main 3 Work Phone: Pre Anesthesia Comment on above: Pre-op evaluation (P rimary Dx); Gastroesophageal reflux disease, unspecified whether esophagitis present; Obesity, pediatric, BMI greater than or equal 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 Start: 08-25-2023 End: 08-25-2023 Preprocedural examination done Pac Main 3 Work Phone: [facility] Work Phone: Start: 08-18-2023 End: 08-18-2023 ambulatory Yesi Zepeda MD Work Phone: Endocrinology Comment on above: PCOS (polycystic ova perla syndrome) (Primary Dx); Thyroid nodule Start: 08-18-2023 End: 08-18-2023 Telemedicine consultation with patient Yesi Zepeda MD Work Phone: [facility] Start: 07-13-2023 Telephone encounter Latasha Bobo MD Work Phone: [facility] Comment on above: Results Start: 07-09-2023 End: 07-09-2023 ambulatory LATASHA BOBO Facility:[facility] Start: 05-20-2023 End: 05-20-2023 ambulatory Aime Goff Other [employer] Other Start: 05-20-2023 Encounter by german Goff [facility] Start: 04-23-2023 End: 04-24-2023 ambulatory LATASHA BOBO Facility:[facility] Start: 04-02-2023 End: 04-02-2023 ambulatory Aime Goff Other [employer] Other Start: 04-02-2023 Office outpatient vi sit 25 minutes Aime Goff [facility] Start: 02-22-2023 Telephone encounter Aime Goff [facility] Start: 02-22-2023 End: 02-22-2023 ambulatory DO Kevin Stokes Work Phone: [employer] Other Start: 02-22-2023 End: 02-22-2023 Patient encounter procedure DO Kevin Stokes Work Phone: [facility]-Flu Vaccine Start: 01-30-2023 End: 01-30-2023 ambulatory Gerald Barboza Other [employer] Other Start: 01-30-2023 Telephone encounter Gerald Barboza [facility] Urgent Care [facility] Start: 01-27-2023 End: 01-27-2023 ambulatory Aime Goff Facility:[facility] Start: 01-15-2023 End: 01-15-2023 ambulatory Aime Schwerer Other [employer] Other Start: 01-15-2023 Office outpatient ne w 45 minutes Aime Longr [facility] Family Medicine Lexi Start: 01-06-2023 End: 01-06-2023 Emergency department patient visit Africa Del Cid Facility:[facility] Start: 12-14-2022 End: 12-14-2022 ambulatory ELIJAH Rodriguez Facility:[facility] Start: 11-13-2022 Telephone encounter Davina Enriquez MD Work Phone: Endocrinology Comment on above: Appointment (LM that appt was rescheduled) Start: 10-27-2022 End: 10-27-2022 ambulatory Power MOYA Facility:[facility] Start: 07-31-2022 End: 07-31-2022 Emergency department patient visit KATHLEEN NAVA Facility:[facility] Start: 07-31-2022 End: 08-01-2022 ambulatory KATHLEEN NAVA Facility:[facility] Start: 07-08-2022 End: 07-08-2022 ambulatory KEVIN STOKES Facility:[facility] Start: 05-28-2022 End: 05-28-2022 Patient encounter procedure Latasha Bobo MD Work Phone: Otolarynogology Comment on above: Thyroid nodule (Prim rodriguez Dx); Abnormal thyroid blood test; History of thyroid nodule Start: 04-24-2022 Telephone encounter Mana Rincon APRN.CNP Work Phone: Peds Endocrinology Comment on above: Patient Update Start: 04-21-2022 Telephone encounter Mana Jonesmarjan HAYNES.CYBER DEFENSE INCIDENT RESPONDER Work Phone: Peds Endocrinology Comment on above: Results Start: 04-19-2022 ambulatory MANA BATISTAKARSTENVIVIENNE Facil ity:[facility] Start: 04-19-2022 End: 04-19-2022 Subsequent hospital visit by physician [facility] Work Phone: [facility] Radiology Ultrasound Comment on above: Abnormal thyroid blo od test [R79.89] Start: 04-16-2022 Telephone encounter Mana Jonesmarjan HAYNES.CYBER DEFENSE INCIDENT RESPONDER Work Phone: Peds Endocrinology Comment on above: Results Start: 04-15-2022 End: 04-16-2022 ambulatory MANA AGUILAR Facility:[facility] Start: 04-15-2022 End: 04-15-2022 Patient encounter procedure Mana Lorenzoalvin HAYNES.CYBER DEFENSE INCIDENT RESPONDER Work Phone: Pediatrics Comment on above: Abnormal thyroid blo od test (Primary Dx); History of thyroid nodule; Obesity, pediatric, BMI greater than or equal 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 Start: 02-19-2022 End: 02-19-2022 ambulatory KEVIN STOKES Facility:[facility] Procedures Date Procedure Procedure Detail [...] Adult depression scr eening assessment Anita Elmore [employer] SUPERVISOR-CYBER DEFENSE INCIDENT RESPONDER Work Phone: Start: 03-20-2024 [facility] PREG QUANT [...] Adult depression scr eening assessment Anita Gutierresuch [employer] SUPERVISOR-CYBER DEFENSE INCIDENT RESPONDER Work Phone: Start: 09-28-2023 POCT INFLUENZA A/INF LUENZA B/SARS-COV-2 VERITOR Lima Toussaint [employer] SUPERVISOR-FOXING CUTTING MACHINE OPERATOR Work Phone: Start: 09-28-2023 Adult depression scr eening assessment Lima Toussaint [employer] SUPERVISOR-FOXING CUTTING MACHINE OPERATOR Work Phone: Start: 08-25-2023 Adult depression scr eening assessment Anita 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 Work Phone: Start: 05-28-2022 US NECK (POC) HNI USE ONLY Salinas Tam MD Work Phone: Start: 04-19-2022 Us soft tissue head & neck real time imge docm Mana Aguilar APRN.CYBER DEFENSE INCIDENT RESPONDER Work Phone: Start: 07-12-2017 History of tonsillectomy S/P tonsill ectomy Mana Aguilar APRN.CYBER DEFENSE INCIDENT RESPONDER Work Phone: History of thyroidectomy H/O thyroidectom [...] Td Vaccines (7 - Td or Tdap) [facility] Start: 11-24-2025 Urine microalbumin profile DTaP,Tdap,Td Vaccine (7 - T d or Tdap) [facility] Start: 10-12-2025 Adult BMI Screening Adult BMI Screening [facility] Start: 10-12-2025 Tobacco Screening Tobacco Screening [facility] Start: 03-31-2025 Adult BMI Screening Adult BMI Screening [facility] Start: 03-31-2025 Depression Screening Depression Screening [facility] Start: 02-28-2025 End: 02-28-2025 Patient encounter procedure 02/28/2025 2:00 PM EDT Routine EUGENIA MAYA [address] [place] [phone] Gerardo Meredith DO [address] [place] [address] EUGENIA MAYA Start: 02-17-2025 Adult BMI Screening Adult BMI Screening [facility] Start: 02-17-2025 Tobacco Screening Tobacco Screening [facility] Start: 02-03-2025 Adult BMI Screening Adult BMI Screening [facility] Start: 02-03-2025 Tobacco Screening Tobacco Screening [facility] Start: 02-02-2025 Adult BMI Screening Adult BMI Screening [facility] Start: 02-02-2025 Tobacco Screening Tobacco Screening [facility] Start: 01-31-2025 End: 01-31-2025 Patient encounter procedure [...] AM EDT Office Visit [facility]- [facility] at [facility] [address] [place] [address] Andrews Harrison MD [address], [address] [place] [address] Yuval Loya MD [address], [address] [place] [address] [facility] Start: 12-19-2024 End: 12-19-2024 Patient encounter procedure 12/19/2024 1:00 PM EDT Routine [facility] [address] [facility] [place] [phone] Gerardo Meredith DO [address] [place], [place] [phone] Arrived [facility] Comment on above: Arrived Start: 12-07-2024 End: 12-07-2024 ambulatory 12/07/2024 2:30 PM EDT Initial [facility] [address] [facility] [address] [place] [phone] [facility] Start: 12-07-2024 End: 12-07-2025 ABO/Rh ABO/Rh Lab Routine Missed menses , unspecified gestational age ([facility]) Expected: 12/07/2024 (Approximate), Expires: 12/07/2025 [facility] Comment on above: Expected: 12/07/2024 (Approximate), Expi res: 12/07/2025 Start: 12-07-2024 End: 12-07-2025 Blood type and Indirect antibody screen panel - Blood Type and screen Lab Routine Missed menses , unspecified gestational age ([facility]) Expected: 12/07/2024 (Approximate), Expires: 12/07/2025 [facility] Work Phone: Comment on above: Expected: 12/07/2024 (Approximate), Expi res: 12/07/2025 Start: 12-07-2024 End: 12-07-2025 Drugs of abuse panel - Urine by Screen method Rapid drug screen, urine Lab Routine , unspecified gestational age ([facility]) Encounter for supervision of normal first in first trimester ([facility]) Expected: 12/07/2024 (Approximate), Expires: 12/07/2025 [facility] Comment on above: Expected: 12/07/2024 (Approximate), Expi res: 12/07/2025 Start: 12-07-2024 End: 12-07-2024 Professional / ancillary services management 12/07/2024 2:00 PM EDT Ancillary Procedure [facility] [address] [facility] [address] [place] [phone] [facility] Start: 11-30-2024 End: 11-30-2024 Professional / ancillary services management 11/30/2024 2:30 PM EDT Ancillary Procedure [facility] [address] [facility] [address] [place] [phone] [facility] Start: 11-22-2024 Adult BMI Screening Adult BMI Screening [facility] Start: 11-22-2024 Depression Screening Depression Screening [facility] Start: 11-22-2024 Tobacco Screening Tobacco Screening [facility] Start: 11-22-2024 End: 02-22-2025 US Pelvis transvaginal US OB transvaginal Imaging Routine Missed menses Expected: 11/22/2024, Expires: 02/22/2025 [facility] Work Phone: Comment on above: Expected: 11/22/2024, Expires: Start: 11-22-2024 End: 11-22-2024 Patient encounter procedure 11/22/2024 1:30 PM EDT Off ice Visit [facility] [address] [facility] [address] [phone] Nichelle Sanchez PA [address] [place] [address] [facility] Start: 11-02-2024 End: 11-02-2024 Patient encounter procedure 11/02/2024 3:40 PM EDT Off ice Visit [facility] [address] [place] [address] Anita Elmore, [employer] SUPERVISOR-[employer] INCIDENT RESPONDER [address] [place] [address] [facility] Start: 10-27-2024 Adult BMI Screening Adult BMI Screening [facility] Start: 10-27-2024 Depression Screening Depression Screening [facility] Start: 10-27-2024 Screening for Chlamydia trachomatis Chlamydia Screening [facility] Start: 10-27-2024 Tobacco Screening Tobacco Screening [facility] Start: 09-27-2024 Adult BMI Screening Adult BMI Screening [facility] Start: 09-27-2024 Depression Screening Depression Screening [facility] Start: 09-27-2024 Tobacco Screening Tobacco Screening [facility] Start: 08-24-2024 Adult BMI Screening Adult BMI Screening [facility] Start: 08-24-2024 Depression Screening Depression Screening [facility] Start: 06-01-2024 End: 06-01-2024 Patient encounter procedure 06/01/2024 8:40 AM EST Off ice Visit [facility] [address] [place] [address] Anita Elmore, [employer] SUPERVISOR-[employer]ENSE INCIDENT RESPONDER [address] [place] [address] [facility] Start: 05-09-2024 End: 05-09-2024 Patient encounter procedure 05/09/2024 9:20 AM EST [facility] [address] [place] [address] Loretta Winkler MD [address] [place] [address] Arrived [facility] Comment on above: Arrived Start: 05-08-2024 End: 05-08-2024 Patient encounter procedure 05/08/2024 8:30 AM EST Off ice Visit [facility] [address] [facility] [address] [place] [phone] Nichelle Sanchez PA [address] [facility] [address] [place], [place] [phone] [facility] Start: 05-03-2024 End: 04-03-2025 Thyrotropin [Units/volume] in Serum or Plasma TSH Lab Routine Postoperative hypothyroidism Expected: 05/03/2024 (Approximate), Expires: 04/03/2025 [facility] Work Phone: Comment on above: Expected: 05/03/2024 (Approximate), Expi res: 04/03/2025 Start: 05-03-2024 End: 04-03-2025 Thyroxine (T4) free [Mass/volume] in Serum or Plasma T4, free Lab Routine Postoperative hypothyroidism Expected: 05/03/2024 (Approximate), Expires: 04/03/2025 [facility] Comment on above: Expected: 05/03/2024 (Approximate), Expi res: 04/03/2025 Start: 04-10-2024 End: 04-10-2024 Patient encounter procedure 04/10/2024 9:10 AM EST Off ice Visit [facility] [address] [facility] [address] [phone] Gerardo Meredith DO [address] [facility] [address] [place], [place] [phone] [facility] Start: 03-31-2024 End: 03-31-2024 Patient encounter procedure 03/31/2024 8:40 AM EST Off ice Visit [facility] [address] [place] [address] Anita Elmore, [employer] SUPERVISOR-[employer] INCIDENT RESPONDER [address] [place] [address] [facility] Start: 03-23-2024 End: 02-20-2025 Thyrotropin [Units/volume] in Serum or Plasma TSH Lab Routine Postoperative hypothyroidism Expected: 03/23/2024 (Approximate), Expires: 02/20/2025 [facility] Work Phone: Comment on above: Expected: 03/23/2024 (Approximate), Expi res: 02/20/2025 Start: 03-23-2024 End: 02-20-2025 Thyroxine (T4) free [Mass/volume] in Serum or Plasma T4, free Lab Routine Postoperative hypothyroidism Expected: 03/23/2024 (Approximate), Expires: 02/20/2025 [facility] Comment on above: Expected: 03/23/2024 (Approximate), Expi res: 02/20/2025 Start: 03-07-2024 End: 03-07-2024 Patient encounter procedure [facility] Comment on above: Arrived Start: 02-18-2024 End: 02-18-2024 Patient encounter procedure 02/18/2024 11:45 AM EDT [facility] [address] [place] [address] Ainta Elmore, [employer] SUPERVISOR-[employer]ENSE INCIDENT RESPONDER [address] [place] [address] [facility] Start: 02-15-2024 End: 02-15-2024 Patient encounter procedure 02/15/2024 2:30 PM EDT [facility] [place] [phone] Aramis Trejo MD [address] [place] [phone] [facility] Start: 02-04-2024 End: 02-04-2024 Esophagogastroduodenoscopy transoral diagnostic ESOPHAGOGASTRODUODENOSCOPY DIAGNOSTIC dysphagia 02/04/2024 2:30 PM EDT [facility] Start: 01-25-2024 End: 01-25-2024 Patient encounter procedure [facility] Comment on above: Arrived Start: 01-16-2024 COVID-19 Vaccine ( season) COVID-19 Vaccine ( season) [facility] Start: 01-16-2024 COVID-19 Vaccine ( season) COVID-19 Vaccine ( season) [facility] Start: 01-16-2024 Influenza vaccination [facility] Start: 01-14-2024 End: 01-14-2024 Patient encounter procedure 01/14/2024 7:30 AM EDT Procedure Visit [facility] Gerardo Meredith, [address] [place] [address] [facility] Start: 10-29-2023 End: 11-28-2023 Thyrotropin [Units/volume] in Serum or Plasma TSH Lab Routine Postoperative hypothyroidism Expected: 10/29/2023 (Approximate), Expires: 11/28/2023 [facility] Work Phone: Comment on above: Expected: 10/29/2023 (Approximate), Expi res: 11/28/2023 Start: 10-28-2023 End: 10-28-2023 Patient encounter procedure 10/28/2023 4:20 PM EDT Off ice Visit [facility] [address] [place] [phone] Anita Elmore, [employer] SUPERVISOR-[employer] INCIDENT RESPONDER [address] [place] [address] [facility] Start: 10-09-2023 End: 01-08-2024 Thyrotropin [Units/volume] in Serum or Plasma THYROID STIMULATING HORMONE Lab Routine Hypothyroidism (acquired) Expected: 10/09/2023, Expires: 01/08/2024 [facility] Work Phone: Comment on above: Expected: 10/09/2023, Expires: Start: 09-09-2023 End: 12-09-2023 Calcium [Mass/volume] in Serum or Plasma CALCIUM, TOTAL Lab Routine Hypothyroidism (acquired) Expected: 09/09/2023, Expires: 12/09/2023 [facility] Comment on above: Expected: 09/09/2023, Expires: Start: 09-09-2023 End: 12-09-2023 Parathyrin.intact [Mass/volume] in Serum or Plasma PTH INTACT Lab Routine Hypothyroidism (acquired) Expected: 09/09/2023, Expires: 12/09/2023 [facility] Comment on above: Expected: 09/09/2023, Expires: Start: 08-18-2023 End: 11-17-2023 17-Hydroxyprogesterone [Mass/volume] in Serum or Plasma HYDROXYPROGESTERONE-17 Lab Routine PCOS (polycystic ovarian syndrome) Expected: 08/18/2023, Expires: 11/17/2023 [facility] Work Phone: Comment on above: Expected: 08/18/2023, Expires: Start: 08-18-2023 End: 11-17-2023 TESTOSTERONE, FREE AND TOTAL TESTOSTERONE, FREE AND TO CLINT Lab Routine PCOS (polycystic ovarian syndrome) Expected: 08/18/2023, Expires: 11/17/2023 [facility] Work Phone: Comment on above: Expected: 08/18/2023, Expires: Start: 08-02-2023 End: 11-01-2023 Basic metabolic 2000 panel - Serum or Plasma BASIC METABOLIC PNL Lab Routine Thyroiditis Expected: 08/02/2023, Expires: 11/01/2023 [facility] Work Phone: Comment on above: Expected: 08/02/2023, Expires: 4 Start: 08-02-2023 End: 11-01-2023 CBC panel - Blood by Automated count CBC Lab Routine Thyroiditis Expected: 08/02/2023, Expires: 11/01/2023 [facility] Work Phone: Comment on above: Expected: 08/02/2023, Expires: 4 Start: 05-17-2023 Behavioral Health Screening Behavioral Health Screening [facility] Start: 05-17-2023 Depression Assessment Depression Assessment [facility] Start: 01-15-2023 Covid-19 Vaccine ( season) Covid-19 Vaccine ( season) [facility] Start: 01-15-2023 Influenza vaccination [facility] Start: 2022 Adult BMI Follow Up Plan Adult BMI Follow Up Plan [facility] Start: 2022 CHLAMYDIA SCREENING (18-24) CHLAMYDIA SCREENING (18-24) [facility] Start: 2022 GC (GONORRHEA) SCREENING (18-24) GC (GONORRHEA) SCREENING (18-24) [facility] Start: 2022 HEPATITIS C SCREENING HEPATITIS C SCREENING [facility] Start: 2022 Hepatitis C screening Hepatitis C Screening [facility] Start: 2022 HIV SCREENING HIV SCREENING [facility] Start: 2022 HIV screening HIV Screening [facility] Start: 2022 Screening for Chlamydia trachomatis Chlamydia Screening (18-24) [facility] Start: 05-17-2022 DEPRESSION ASSESSMENT DEPRESSION ASSESSMENT [facility] Start: 01-15-2022 Influenza vaccination INFLUENZA (#1) [facility] Start: 01-06-2021 COVID-19 VACCINE (3 - Booster for Pfizer series) COVID-19 VACCINE (3 - Booster for Pfizer series) [facility] Start: 2020 Meningococcal B Vaccine: Consider Based On Risk (1 of 2 - Patient Seeks Protection) Meningococcal B Vaccine: Consider Based On Risk (1 of 2 - Patient Seeks Protection) [facility] Start: 2020 MENINGOCOCCAL CONJUGATE (1 - 2-dose series) MENINGOCOCCAL CONJUGATE (1 - 2-dose series) [facility] Start: 2019 CHLAMYDIA SCREENING (<18) CHLAMYDIA SCREENING (<18) [facility] Start: 2019 GC (GONORRHEA) SCREENING (<18) GC (GONORRHEA) SCREENING (<18) [facility] Start: 2018 PEDS TO ADULT TRANSITION ANNUAL ASSESSMENT PEDS TO ADULT TRANSITION ANNUAL ASSESSMENT [facility] Start: 2016 Adult depression screening assessment DEPRESSION SCREENING [facility] Start: 2016 PEDS TO ADULT TRANSITION INITIAL DISCUSSION PEDS TO ADULT TRANSITION INITIAL DISCUSSION [facility] Start: 2016 Tobacco Screening Tobacco Screening [facility] Start: 2015 HPV VACCINE (1 - 2-dose series) HPV VACCINE (1 - 2-dose series) [facility] Start: 2014 MENINGOCOCCAL B: Consider based on risk (1 of 2 - Risk Bexsero 2-dose series) MENINGOCOCCAL B: Consider based on risk (1 of 2 - Risk Bexsero 2-dose series) [facility] Start: 2013 HPV VACCINE (1 - 2-dose series) HPV VACCINE (1 - 2-dose series) [facility] Start: 2011 Urine microalbumin profile DTAP,TDAP,TD (1 - Tdap) [facility] Start: 2005 MMR (1 of 2 - Standard series) MMR (1 of 2 - Standard series) [facility] Start: 2005 VARICELLA (1 of 2 - 2-dose childhood series) VARICELLA (1 of 2 - 2-dose childhood series) [facility] Start: 2004 POLIO (1 of 3 - 4-dose series) POLIO (1 of 3 - 4-dose series) [facility] Start: 2004 HEPATITIS B (1 of 3 - 3-dose series) HEPATITIS B (1 of 3 - 3-dose series) [facility] 17-Hydroxyprogestero ne [Mass/volume] in Serum or Plasma HYDROXYPROGESTERONE-17 Lab Routine PCOS (polycystic ovarian syndrome) 08/25/2023 8:23 AM EDT [facility] Work Phone: Bacteria identified in Urine by Culture Urine culture Microbiology Routine Missed menses Ordered: 12/07/2024 [facility] Comment on above: Ordered: 12/07/2024 CBC W Auto Different ial panel - Blood CBC and differential Lab Routine Missed menses , unspecified gestational age ([facility]) Ordered: 12/07/2024 [facility] Comment on above: Ordered: 12/07/2024 CHLAMYDIA TRACHOMATI S (GENITO/STI) CHLAMYDIA TRACHOMATIS (GENITO/STI) Lab Routine Exposure to STD Ordered: 01/02/2025 [facility] Comment on above: Ordered: 01/02/2025 End: 08-01-2024 ECG COMPLETE ECG COMPLETE ECG Routine Thyroiditis 1 Occurrences starting 08/02/2023 until 08/01/2024 [facility] Work Phone: Comment on above: 1 Occurrences starting 08/02/2023 until 08/01/2024 Hemoglobin A1c/Hemoglobin.total in Blood Hemoglobin A1c Lab Routine Missed menses , unspecified gestational age ([facility]) Ordered: 12/07/2024 [facility] Comment on above: Ordered: 12/07/2024 Hepatitis B virus melton rface Ag [Presence] in Serum or Plasma by Immunoassay Hepatitis B surface antigen Lab Routine Missed menses , unspecified gestational age ([facility]) Ordered: 12/07/2024 [facility] Comment on above: Ordered: 12/07/2024 Hepatitis C virus Ab [Presence] in Serum or Plasma by Immunoassay Hepatitis C antibody Lab Routine Missed menses , unspecified gestational age ([facility]) Ordered: 12/07/2024 [facility] Comment on above: Ordered: 12/07/2024 HIV-1/HIV-2 antigen/ antibody combination immunoassay HIV-1 and HIV-2 antibodies Lab Routine Missed menses , unspecified gestational age ([facility]) Ordered: 12/07/2024 [facility] Comment on above: Ordered: 12/07/2024 Neisseria gonorrhoea e DNA [Presence] in Unspecified specimen by SWAPNA with probe detection Neisseria gonorrhea DNA probe, direct Lab Routine Exposure to STD Ordered: 01/02/2025 [facility] Comment on above: Ordered: 01/02/2025 Reagin Ab [Presence] in Serum by RPR RPR Lab Routine Missed menses , unspecified gestational age ([facility]) Ordered: 12/07/2024 [facility] Comment on above: Ordered: 12/07/2024 Rubella antibody, IgG Rubella an tibody, IgG Lab Routine Missed menses , unspecified gestational age ([facility]) Ordered: 12/07/2024 [facility] Comment on above: Ordered: 12/07/2024 SURESWAB(R) ADVANCED VAGINITIS PLUS, TMA SURESWAB(R) ADVANCED VAGINITIS PLUS, TMA Pathology and Cytology Routine Vaginal discharge Ordered: 01/02/2025 [facility] Work Phone: Comment on above: Ordered: 01/02/2025 TESTOSTERONE, FREE AND TOTAL CAMRON TOSTERONE, FREE AND TOTAL Lab Routine PCOS (polycystic ovarian syndrome) 08/25/2023 8:23 AM EDT [facility] Work Phone: End: 01-02-2026 Thyrotropin [Units/volume] in Serum or Plasma TSH Lab Routine Thyroid disease H/O thyroidectomy [id number] for 10 Occurrences starting 01/02/2025 until 01/02/2026 [facility] Comment on above: [id number] for 10 Occurrences starting 12/15 until 01/02/2026 End: 11-28-2023 Thyroxine (T4) free [Mass/volume] in Serum or Plasma T4, free Lab Routine Postoperative hypothyroidism 1 Occurrences starting 10/29/2023 until 11/28/2023 [facility] on above: 1 Occurrences starting 10/29/2023 until 11/28/2023 End: 03-31-2025 Thyroxine (T4) free [Mass/volume] in Serum or Plasma T4, free Lab Routine Postoperative hypothyroidism 1 Occurrences starting 03/31/2024 until 03/31/2025 [facility] Work Phone: Comment on above: 1 Occurrences starting 03/31/2024 until 03/31/2025 End: 05-15-2023 Us soft tissue head & neck real time imge docm US THYROID/PARATHYROID Radiology Routine Abnormal thyroid blood test History of thyroid nodule 1 Occurrences starting 04/15/2022 until 05/15/2023 [facility] Work Phone: Comment on above: 1 Occurrences starting 04/15/2022 until 05/15/[facility] Immunizations Immunization Date Immunization Notes Care Provider Peggy emery 03-31-2024 Covid-19, Mrna, Lnp- s, Pf,teresa-sucrose,30 Mcg/0.3ml Fall23 Anita Elmore STOCKRO[employer] SUPERVISOR-[facility] Work Phone: [facility] 03-31-2024 Immunization, In Clinic,; Translations: [Drug or medicament (substance)] Anita Catarina [employer] SUPERVISOR[employer] Work Phone: [facility] 02-18-2024 influenza, seasonal, injectable, preservative free Anita Elmore [employer] SUPERVISOR[employer] Work Phone: [facility] 02-18-2024 Immunization, In Clinic,; Translations: [Drug or medicament (substance)] Anita Elmore ST[employer] SUPERVISOR-[facility] Work Phone: [facility] 02-18-2024 influenza virus vacc ine, unspecified formulation Gerardoarya Meredith Work Phone: [facility] 02-22-2023 influenza, injectabl e, quadrivalent, preservative free Anitalarry Gutierresuch [employer] SUPERVISOR-[facility] Work Phone: [facility] 02-22-2023 influenza virus vacc ine, unspecified formulation Anita Catarina [employer] SUPERVISOR-[facility] Work Phone: [facility] 12-26-2021 hepatitis A vaccine, pediatric/adolescent dosage, 2 dose schedule Anita Catarina [employer] SUPERVISOR-[facility] Work Phone: [facility] 12-26-2021 Human Papillomavirus 9-valent vaccine Anita Catarina [employer] SUPERVISOR-[facility] Work Phone: [facility] 12-26-2021 meningococcal oligosaccharide (groups A, C, Y and W-135) diphtheria toxoid conjugate vaccine (MCV4O) Anita Elmore [employer] SUPERVISOR-[facility] Work Phone: [facility] 12-26-2021 tuberculin skin test ; purified protein derivative solution, intradermal Anita Elmore [employer] SUPERVISOR-[employer] INCIDENT RESP[employer]DER Work Phone: [facility] 12-19-2021 tuberculin skin test ; purified protein derivative solution, intradermal Anita Elmore [employer] SUPERVISOR-[employer]ENSE INCIDENT RESPONDER Work Phone: [facility] 03-14-2020 influenza, injectabl e, quadrivalent, contains preservative Aime Schwerer Other [employer] Other 03-14-2020 influenza virus vacc ine, unspecified formulation [facility] Work Phone: [facility] 11-25-2015 tetanus toxoid, redu racheal diphtheria toxoid, and acellular pertussis vaccine, adsorbed Anita Elmore [employer] SUPERVISOR[employer] Work Phone: [facility] 11-25-2015 human papilloma viru s vaccine, quadrivalent Aime Schwerer Other [employer] Other 11-25-2015 meningococcal polysaccharide (groups A, C, Y and W-135) diphtheria toxoid conjugate vaccine (MCV4P) Aime Schwerer Other [employer] Other 09-09-2009 Diphtheria, tetanus toxoids and acellular pertussis vaccine, and poliovirus vaccine, inactivated Anita Elmore [employer] SUPERVISOR-[facility] Work Phone: [facility] 09-09-2009 measles, mumps and rubella virus vaccine Anita Elmore [employer] SUPERVISOR[facility] Work Phone: [facility] 09-09-2009 varicella virus vaccine Liliana Elmore [employer] SUPERVISOR[employer] Work Phone: [facility] [facility] 06-20-2007 diphtheria, tetanus toxoids and acellular pertussis vaccine Anita Elmore [employer]-[facility] Work Phone: [facility] 09-13-2006 diphtheria, tetanus toxoids and acellular pertussis vaccine Anita Elmore [facility] Work Phone: [facility] 09-13-2006 haemophilus influenz ae type b vaccine, PRP-T conjugate Anita Elmore [facility] Work Phone: [facility] 09-13-2006 measles, mumps, rube lla, and varicella virus vaccine Anita Elmore [facility] Work Phone: [facility] 09-13-2006 pneumococcal conjuga te vaccine, 7 valent Anita Elmore [facility] Work Phone: [facility] 09-13-2006 poliovirus vaccine, inactivated Anitalarry Elmore [facility] Work Phone: [facility] 06-23-2005 diphtheria, tetanus toxoids and acellular pertussis vaccine Anitalarry Elmore [facility] Work Phone: [facility] 06-23-2005 haemophilus influenz ae type b conjugate and Hepatitis B vaccine [facility] Work Phone: [facility] 06-23-2005 influenza, seasonal, injectable Anita Elmore [facility] Work Phone: [facility] 06-23-2005 pneumococcal conjuga te vaccine, 7 valent Anita Elmore [facility] Work Phone: [facility] 06-23-2005 poliovirus vaccine, inactivated Anita Elmore [facility] Work Phone: [facility] 2004 diphtheria, tetanus toxoids and acellular pertussis vaccine [facility] Work Phone: [facility] 2004 haemophilus influenz ae type b conjugate and Hepatitis B vaccine [facility] Work Phone: [facility] 2004 pneumococcal conjuga te vaccine, 7 valent Anita 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 [facility] Phone: [facility] 2004 poliovirus vaccine, inactivated Anita Elmore [employer] SUPERVISOR-[employer]ENSE INCIDENT RESPONDER Work Phone: [facility] 2004 hepatitis B vaccine, pediatric or pediatric/adolescent dosage Anita Elmore [employer] SUPERVISOR-[employer] INCIDENT RESPONDER Work Phone: [facility] Payers Date Payer Category Payer Medicaid HMO [facility] MEDICAID [id number] 2024 Private Health Insurance [facility] MEDICAID Member Subscriber Plan / Payer (Effective 2024-Present) Name: Sheyla Lea Relation to Subscriber: Self Name: Sheyla Lea Payer ID: Not on file Group ID: Not on file Type: Not on file Address: [place] [id number] 2024 Medicaid [id number] 2024 Private Health Insurance [id number] 2024 Self-pay [id number] 2017 [place] Blue Shield [id number] 2017 [employer] - Other ANTHEM Member Subscriber Plan / Payer (Effective 2017-Present) Name: Sheyla Lea I Relation to Subscriber: Child Name: MIRNA SAMUEL Date of : 1975 Address: [address] [place] [address] Payer ID: [id number] (NAIC) Type: Not on file Address: [address] [place] [phone] 2017 Unknown [id number] 2014 [employer] - PPO ANTHEM Member Subscriber Plan / Payer (Effective 2014-Present) Name: Sheyla Lea I Relation to Subscriber: Child Name: MANA SAMUEL Date of : 1979 Address: [address] [place] [address] Payer ID: [id number] (NAIC) Type: Not on file Address: [address] [place] [phone] [id number] 2014 Unknown [id number]. [id number] 2014 Unknown [id number] 2004 Unknown [id number] 2.16.840.1.500694.3.579. 2.718 2004 Unknown [id number] 2.16.840.1.560535.3.579. 2. 2004 Unknown [id number] 2.16.840.1.132362.3.579. 2. 2004 Unknown [id number] 2.16.840.1.391954.3.579. 2. 2004 Unknown [id number] 2.16.840.1.164019.3.579. 2. 2004 Unknown [id number] 2.16.840.1.015256.3.579. 2. 2004 Unknown [id number] 2.16.840.1.253724.3.579. 2. 2004 Unknown [id number] 2.16.840.1.574889.3.579. 2.1285 2004 Unknown [id number] 2.16840.1.228914.3.579. 2.1285 2004 Unknown [id number] 2.16840.1.237955.3.579. 2.1285 2004 Unknown [id number] 2.16.840.1.807590.3.579. 2.1285 2004 Unknown [id number] 2.16.840.1.229544.3.579. 2.1285 2004 Unknown [id number] 2.16.840.1.475652.3.579. 2.1285 2004 Unknown [id number] 2.16.840.1.014728.3.579. 2.1285 2004 Unknown [id number] 2.16.840.1.235497.3.579. 2.1285 2004 Unknown [id number] 2.16.840.1.484663.3.579. 2.1285 2004 Unknown [id number] 2.16.840.1.547826.3.579. 2.1285 2004 Unknown [id number] 2.16.840.1.397268.3.579. 2.1286 2004 Unknown [id number] 2.16.840.1.458619.3.579. 2.1286 2004 Unknown [id number] 2.16.840.1.258382.3.579. 2.1286 2004 Unknown [id number] 2.16.840.1.469198.3.579. 2.1286 2004 Unknown [id number] 2.16.840.1.286267.3.579. 2.1259 2004 Unknown [id number] 2.16.840.1.428403.3.579. 2.1258 2004 Unknown [id number] 2.16.840.1.411001.3.579. 2.1258 2004 Unknown [id number] 2.16.840.1.054610.3.579. 2.1258 2004 Unknown [id number] 2.16.840.1.775634.3.579. 2.9 2004 Unknown [id number] 2.16.840.1.530134.3.579. 2.1258 2004 Unknown [id number] 2.16.840.1.492027.3.579. 2.9 2004 Unknown [id number] 2.16.840.1.787697.3.579. 2.1258 2004 Unknown [id number] 2.16.840.1.939181.3.579. 2.1259 2004 Unknown [id number] 2.16.840.1.080386.3.579. 2.1258 2004 Unknown [id number] 2.16.840.1.561570.3.579. 2.1259 1978 Unknown [id number] 2.16.840.1.794241.3.579. 2.718 Unknown [facility] [id number] Unknown [id number] 2.16.840.1.587882.3.579. 2.531 Unknown [id number] 2.16.840.1.519495.3.579. 2.531 Unknown [id number] 2.16.840.1.016314.3.579. 2.531 Social History Date Type Detail Facility Start: 04-15-2022 End: 01-09-2023 Tobacco smoking status NHIS Never smoked tobacco [facility] History of tobacco use Passive smoker [facility] Start: 04-15-2022 End: 01-09-2023 Tobacco use and exposure Smokeless tobacco non-user [facility] Start: 04-15-2022 End: 02-18-2024 Alcohol intake Current non-drinker of alcohol (finding) [facility] Start: 04-15-2022 Tobacco Comment mom & dad both smoke in house [facility] Start: 2004 Sex Assigned At Not on file [facility] Start: 04-05-2022 End: 04-19-2022 Exposure to SARS-CoV-2 (event) Not sure [facility] Start: 04-15-2022 End: 01-25-2024 [facility] Start: [facility] Sex Assigned At Female F [facility] Start: 04-15-2022 End: 01-25-2024 History of Social function [facility] National Score (1-100), lower number is lower risk Not on file [facility] Start: 01-25-2024 End: 01-02-2025 Alcoholic beverage intake Lifetime non-drinker (finding) [facility] Start: 01-05-2023 Gender identity Identifies as female gender (finding) [facility] Start: 04-29-2017 Sex Female (finding) [facility] Start: 10-28-2024 [facility] Start: 12-28-2024 End: 12-29-2024 Alcoholic beverage intake Ex-drinker (finding) [facility] Goals Date Patient Goal Desired Activity [...] Grandmother indra samuel Breast cancer Paternal Grandmother lAesha Lea SURGICAL HISTORY Past Surgical History: Procedure [...] PLAN ICD-10-CM 1. 15 weeks gestation of ([facility]) Z3A.15 POCT urinalysis dipstick manually resulted Alpha fetoprotein, maternal Alpha fetoprotein, maternal 2. Second trimester ([facility]) Z34.92 POCT urinalysis dipstick manually resulted Alpha fetoprotein, maternal Alpha fetoprotein, maternal 3. Screening, , for anatomic survey ([facility]) Z36.89 CANCELED: US OB 14+ weeks anatomy [...] of: ELIJAH Martinez documented in this encounter [facility] 01-02-2025 History of Presen t illness Narrative [...] nursing note reviewed. Exam conducted with a dry curer present. Vitals: Estimated body mass index is 41.45 kg/m as calculated from the following: Height as of 05/09/24: 5' 3 . Weight as of this encounter: 234 lb. BP: 108/70 Patient's last menstrual period was 10/02/2024. ASSESSMENT & PLAN ICD-10-CM 1. 11 weeks gestation of ([facility]) Z3A.11 POCT urinalysis dipstick manually resulted 2. First trimester ([facility]) Z34.91 POCT urinalysis dipstick manually resulted 3. [...] Gerardo Meredith DO documented in this encounter [facility] 12-29-2024 History of Presen t illness Narrative [...] Yes Have you been seen here at [facility] in a previous ? No Recent ER visits or hospitalizations? Patient reports [facility] ED visit around 8/4, nausea, concern for thryroid function Bring blood sugar log or meter with you today? (Please bring them with you for every visit at [facility]) N/A Flu vaccine (Mar-July)? 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 However the patient now wants to switch merchandise flow associate. She would prefer endocrinology from [place]. Most recent free T4 within normal limits. [...] 02/04/2024 Performed by Niki Hollis DO at [facility] EUSTACHIAN TUBE DILATION Bilateral 06/28/2017 Performed by Abdullahi Cavazos MD at [facility] MYRINGOTOMY W/ TUBES 2010 PELVIC LAPAROSCOPY 01/28/2024 THYROIDECTOMY 09/03/2023 TONSILLECTOMY ADENOIDECTOMY Bilateral 06/28/2017 Performed by Abdullahi Cavazos MD at [facility] ALLERGIES: No Known Allergies CURRENT MEDICATIONS: [...] the primary care physician and the other weight loss consultant HABITS: Patient activity no restrictions, diet [...] 2. Referral to Dr. Haji endocrinology at [place]. 3. Targeted anatomy at 20 weeks gestation at our [facility] site. 4. Serial growth ultrasounds every [...] patient is in complete care of her biology faculty member. Patient does have ultrasound office visit scheduled with us. Thank you for allowing me to participate in Sheyla Lea . If there any questions please do not hesitate to contact us. Sincerely, YUVAL LOYA MD documented in this encounter [facility] 12-19-2024 History of Presen t illness Narrative [...] disorder) Brother Breast cancer Maternal Grandmother indra saumel Thyroid disease Maternal Grandmother indra samuel Breast [...] nursing note reviewed. Exam conducted with a dry curer present. Vitals: Estimated body mass index is 41.12 kg/m as calculated from the following: Height as of 24: 5' 3 . Weight as of this encounter: 232 lb 1.9 oz. BP: 118/78 Patient's last menstrual period was 10/02/2024. ASSESSMENT & PLAN ICD-10-CM 1. First trimester ([facility]) Z34.91 POCT urinalysis dipstick manually resulted 2. 9 weeks gestation of ([facility]) Z3A.09 POCT urinalysis dipstick manually resulted 3. Encounter to discuss test results Z71.2 Pt is 9 weeks 3 days and was seen in ER for nausea and vomiting. Rx for antivert and mag oxide faxed to pharmacy. Pt being referred to [facility] for thyroid disease in and referred to [facility] for zofran pump. Pt to return in 4 weeks for scheduled OB appt. Documented by Bella Strickland LPN on behalf of: Gerardo Meredith DO documented in this encounter [facility] 12-07-2024 History of Presen t illness Narrative [...] or undercooked meat, and stay away from [facility]. Patient has also been advised to [...] Tabitha Rice LPN documented in this encounter [facility] 11-22-2024 History of Presen t illness Narrative [...] nursing note reviewed. Exam conducted with a dry curer present. Vitals: Estimated body mass index is 40.23 kg/m as calculated from the following: Height as of 24: 5' 3 . Weight as of this encounter: 227 lb 1.9 oz. BP: 128/80 Patient's last menstrual period was 10/02/2024. ASSESSMENT & PLAN ICD-10-CM 1. Nausea R11.0 2. Cramping affecting , antepartum ([facility]) O26.899 POCT , urine manually resulted [...] of: ELIJAH Martinez documented in this encounter [facility] 04-10-2024 History of Presen t illness Narrative [...] Past Medical History: Diagnosis Date Hypothyroidism (acquired) ([facility]) Irregular menses 2019 HISTORY PAST MEDICAL HISTORY [...] nursing note reviewed. Exam conducted with a dry curer present. Vitals: Estimated body mass index is [...] Gerardo Meredith DO documented in this encounter [facility] 03-31-2024 History of Presen t illness Narrative [address] [place] [address] Patient: Sheyla Lea Date of : 2005 [...] hernia. She was sent to GI in [place] who ordered a gastric emptying study which [...] 02/04/2024 Performed by Niki Hollis DO at [facility] EUSTACHIAN TUBE DILATION Bilateral 06/28/2017 Performed by Abdullahi Cavazos MD at [facility] MYRINGOTOMY W/ TUBES 2010 PELVIC LAPAROSCOPY 01/28/2024 THYROIDECTOMY 09/03/2023 TONSILLECTOMY ADENOIDECTOMY Bilateral 06/28/2017 Performed by Abdullahi Cavazos MD at [facility] Current Outpatient Medications Medication Sig Dispense [...] EARL APRN-CNP 04/04/242143 documented in this encounter [facility] 03-07-2024 History of Presen t illness Narrative [...] nursing note reviewed. Exam conducted with a dry curer present. Vitals: Estimated body mass index is [...] Gerardo Meredith DO documented in this encounter [facility] 02-23-2024 Miscellaneous Notes I called pt and read result note. Pt verbally states she understands. documented in this encounter [facility] 02-23-2024 Telephone encounter Note I called pt and read result note. Pt verbally states she understands. [facility] 02-18-2024 History of Presen t illness Narrative [address] [place] [address] Patient: Sheyla Lea Date of : 2005 Encounter Date: 02/18/2024 History of Present Illness: The patient is a 18 y.o. female, an established patient, and is here for Chief Complaint Patient presents with post op . HPI Patient is here to follow-up on her EGD results through Dr. Hollis. Patient saw GI in [place] 1 week ago and a gastric emptying [...] having more migraines lately to her right adventist area when she moves her head and [...] 02/04/2024 Performed by Niki Hollis DO at [facility] EUSTACHIAN TUBE DILATION Bilateral 06/28/2017 Performed by Abdullahi Cavazos MD at [facility] MYRINGOTOMY W/ TUBES 2011 PELVIC LAPAROSCOPY 01/28/2024 THYROIDECTOMY 09/03/2023 TONSILLECTOMY ADENOIDECTOMY Bilateral 06/28/2017 Performed by Abdullahi Cavazos MD at [facility] Current Outpatient Medications Medication Sig Dispense [...] APRN-CNP 02/21/24 1427 documented [facility] 02-03-2024 History of Presen t illness Narrative Reason for Appointment: Patient ID: Sheyla Lea is a 18 y.o. female who presents for No chief complaint on file. Patient presents today via telephone call for a telehealth appointment. Patients Phone #: [phone] (mobile) Current Medications: has a current medication list which includes the following prescription(s): hydroxyzine hcl, levothyroxine, metformin, minocycline, norgestimate-ethinyl estradiol, norgestimate-ethinyl estradiol, omeprazole, ondansetron odt, phentermine, sertraline, and venlafaxine xr. Medical History: Active Ambulatory Problems Diagnosis Date Noted No Active Ambulatory Problems Resolved Ambulatory Problems Diagnosis Date Noted No Resolved Ambulatory Problems Past Medical History: Diagnosis Date Hypothyroidism (acquired) ([facility]) Family History Problem Relation Name Age [...] of: ELIJAH Martinez documented in this encounter [facility] 02-03-2024 History of Presen t illness Narrative [address] [facility] [id number] Patient: Sheyla Lea Date of : 2005 [...] 02/04/2024 Performed by Niki Hollis DO at [facility] EUSTACHIAN TUBE DILATION Bilateral 06/28/2017 Performed by Abdullahi Cavazos MD at [facility] MYRINGOTOMY W/ TUBES 2010 PELVIC LAPAROSCOPY 01/28/2024 THYROIDECTOMY 09/03/2023 TONSILLECTOMY ADENOIDECTOMY Bilateral 06/28/2017 Performed by Abdullahi Cavazos MD at [facility] Current Outpatient Medications Medication Sig Dispense [...] APRN-CNP 02/08/24 1639 documented in this encounter [facility] 01-26-2024 Miscellaneous Notes Patient was called and encouraged to not gerd medication and to take but as needed and to call and set wellness up. Patient scheduled next year for wellness and 03/31/24 for med visit. documented in this encounter [facility] 01-26-2024 Telephone encounter Note Patient was called and encouraged to not gerd medication and to take but as needed and to call and set wellness up. [facility] 01-26-2024 Telephone encounter Note Patient scheduled next year for wellness and 03/31/24 for med visit. [facility] 01-25-2024 History of Presen t illness [...] Past Medical History: Diagnosis Date Hypothyroidism (acquired) ([facility]) HISTORY PAST MEDICAL HISTORY SOCIAL HISTORY Past Medical History: Diagnosis Date Hypothyroidism (acquired) ([facility]) Social History Tobacco Use Smoking status: [...] Gerardo Meredith DO documented in this encounter [facility] 01-23-2024 Miscellaneous Notes I will give her a 90 day supply if that is cheaper but I do not want pt to continuously take this medication for long period. If she is still struggling w GERD when taking this PRN please set her up to see me - wellness if due if fine documented in this encounter [facility] 01-23-2024 Telephone encounter Note I will give her a 90 day supply if that is cheaper but I do not want pt to continuously take this medication for long period. If she is still struggling w GERD when taking this PRN please set her up to see me - wellness if due if fine [facility] 11-25-2023 Miscellaneous Notes Please remind pt, she cannot take hydroxyzine if she is Notified via [employer] documented in this encounter [facility] 11-25-2023 Telephone encounter Note Please remind pt, she cannot take hydroxyzine if she is [facility] 11-25-2023 Telephone encounter Note Notified via [employer] [facility] 11-25-2023 Miscellaneous Notes Please remind pt, she cannot take hydroxyzine if she is documented in this encounter [facility] 11-25-2023 Telephone encounter Note Please remind pt, she cannot take hydroxyzine if she is [facility] 11-23-2023 History of Presen t illness [...] as needed (heartburn). documented in this encounter [facility] 10-28-2023 History of Presen t [place] [address] Patient: Sheyla Lea Date of : 2005 [...] help regulate her menses. She sees her sales department clerk again in 1 month and also has a transvaginal ultrasound scheduled for lower pelvic pain. She has a history of ovarian cysts. Her sales department clerk thinks her lack of periods and irregular [...] 06/28/2017 Performed by Abdullahi Cavazos MD at [facility] MYRINGOTOMY W/ TUBES 2010 THYROIDECTOMY 09/03/2023 TONSILLECTOMY ADENOIDECTOMY Bilateral 06/28/2017 Performed by Abdullahi Cavazos MD at [facility] Current Outpatient Medications Medication Sig Dispense [...] APRN-CNP 11/02/23 1602 documented in this encounter [facility] 10-04-2023 Telephone encounter Note Requester: Patient [...] No Patient is completely out of medication. [facility] 10-04-2023 Miscellaneous Notes Requester: Patient Patients [...] out of medication. documented in this encounter [facility] 09-28-2023 History of Presen t illness [...] Bartholomew 09/28/23 1300 documented in this encounter [facility] 09-09-2023 Note HNO ID: [id number] Author: LATASHA BOBO MD Service: ? Author Type: Physician Type: Progress Notes Filed: 10/15/2023 00:28 Note Text: [facility] Note CC: Post op of [...] findings and treatment plan. Latasha Bobo MD [facility] 09-09-2023 History of Presen t illness Narrative [facility] Note CC: Post op of [...] Latasha Bobo MD documented in this encounter [facility] 09-09-2023 Nurse Note Tobacco Use: Never Was smoking cessation packet given? N/A - Patient is a non-smoker or quit >1 year ago. Was a referral initiated?N/A Patient is a non-smoker [facility] 09-09-2023 Nurse Note Tobacco Use: Never Was smoking cessation packet given? N/A - Patient is a non-smoker or quit >1 year ago. Was a referral initiated?N/A Patient is a non-smoker documented in this encounter [facility] 09-04-2023 Note HNO ID: [id number] Author: PEG RICKETST MD Service: Otolaryngology Author Type: Resident Type: Progress Notes Filed: 09/04/2023 08:34 Note Text: [facility] - HEAD AND NECK SURGERY PROGRESS NOTE PAGE [phone] AFTER 1700 AND ON WEEKENDS Patient Name: Sheyla Lea Age: [age] year old Sex: female Date: September 04, 2023 Admission Date: 09/03/2023 Hospital Day: 0 ASSESSMENT/PLAN: Sheyla Lea is a 18 year old female who has been followed for total thyroidectomy - DC drain - DC home Peg Ricketts MD PGY-2 Otolaryngology/Head and Neck Surgery [phone] Service Pager [phone] - please page after 5pm and on [...] 0659 09/04/23 07 - 09/05/23 0659 Shift 9455-0555 1356-2477 9435-5100 24 Hour Total 4093-6825 1175-1755 8042-2928 24 Hour Total INTAKE PO 200 200 PO 200 200 IV 2000 423 1122 3545 OR Crystalloid intake (mL) 1000 1000 Volume (mL) (ceFAZolin iv piggyback 2 g in D5W (iso-osmotic) 100 mL (ANCEF)) 100 100 Volume (mL) (lactated ringers iv infusion) 1000 1000 Volume (mL) (NaCl 0.9% iv infusion) 423 1022 1445 Shift Total 1999 623 1122 3745 OUTPUT Urine 464 452 1653 1650 Void (ml) 101 414 6870 1650 Tubes 17.5 10 27.5 Drain/Tube Output (Drain/Tube 09/03/23 1124 [facility] [place] Midline Anterior Neck) [...] active hospital problems. * thyroid POA: Yes [facility] 09-03-2023 Note HNO ID: [id number] Author: PATRICIA ARAGON APRN.SUBCONTRACT ADMINISTRATOR Service: ? Author Type: Nurse Private Equity Analyst Type: Anesthesia Procedure Notes Filed: 09/03/2023 07:56 Note Text: ANESTHESIOLOGY PROCEDURE NOTE Airway General Information Procedure Start Time/Medication Administration: 09/03/2023 7:31 AM Procedure End Time: 09/03/2023 7:32 AM Patient location during procedure: OR Timeout Performed Pre-procedure: timeout performed Consent Obtained: Yes Patient identity confirmed: arm band and patient Staffing SUBCONTRACT ADMINISTRATOR: Patricia Aragon APRN.SUBCONTRACT ADMINISTRATOR Indications and Patient Condition Indications for [...] September 03, 2023 TIME: 7:55 AM CSN: [id number] [facility] 08-25-2023 Miscellaneous Notes Addended by: JOHN HUMPHREY on: 08/25/2023 02:01 PM Modules accepted: Orders documented in this encounter [facility] 08-25-2023 History of Presen t illness Narrative [address] [facility] [id number] Patient: Sheyla Lea Date of : 2005 Encounter Date: 08/25/2023 History of Present Illness: The patient is a 18 y.o. female, an established patient, and is here for Chief Complaint Patient presents with New Patient . HPI Patient is here to establish care from [facility] where she saw Shanna hewitt nurse practitioner. She recently moved to [place] and this is a closer drive for her. 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 In the last several months her [...] thyroidectomy surgery scheduled for September 02 with [facility] for nodules, chronic pharyngitis [...] 06/28/2017 Performed by Abdullahi Cavazos MD at [facility] MYRINGOTOMY W/ TUBES 2010 TONSILLECTOMY ADENOIDECTOMY Bilateral 06/28/2017 Performed by Abdullahi Cavazos MD at [facility] Current Outpatient Medications Medication Sig Dispense [...] APRN-CNP 08/25/23 1410 documented in this encounter [facility] 08-25-2023 Instructions John Humphrey PA-C - 08/25/2023 7:49 AM EDT PATIENT PREOPERATIVE INSTRUCTIONS No ref. provider found has scheduled you for your procedure at this surgery center: [facility] [place] [facility] Scheduling Office: [phone] --[address] [place] [address]. Please read below carefully for your personalized [...] taking for the 08/25/23 encounter (PAT) with [address] [place] [address]. If you start any new medications after [...] Procedures: - YOU MUST HAVE A RESPONSIBLE GPS NAVIGATION INSTALLER TAKE YOU HOME. A LINING STUFFER OR GROCERY STOCK CLERK CANNOT BE MADE A RESPONSIBLE GPS NAVIGATION INSTALLER. - We recommend that a responsible person [...] call the Wednesday before. Your surgeon s sequencing machine operator will tell you what time to call the office. - If you have not reached the departmental sequencing machine operator by 5 P.M., call [phone] after 5 P.M. the day before your surgery. Please be aware that emergency situations arise, which may delay or change your surgical time. If this happens, we will notify you as soon as possible and regret any inconvenience. If you already have an Advance Directive, please fax a copy to [phone] or email to for it to be [...] John Humphrey PA-C documented in this encounter [facility] 08-25-2023 History and physical note HISTORY [...] CAD, chest pain, CHF, DVT/PE, hypertension, recent MD, murmur/valvular heart disease and PVD. GI: Positive [...] or any previous visit (from the past 91277 hour(s)). Instructions Given to Patient: Instructions located in the after visit summary. Patient given verbal and written preop instructions and voices comprehension and compliance. SIGNATURE: John Humphrey PA-C PATIENT NAME: Sheyla Lea DATE: August 25, 2023 TIME: 7:58 AM PAGER/CONTACT #: documented in this encounter [facility] 08-18-2023 Note HNO ID: [id number] Author: GRETEL STEVENS MD Service: ? Author [...] LH, estradiol - Consider pelvic US by SATELLITE MANAGER - Weight loss recommendations: Advised about lifestyle [...] (H) ( Neck Ultrasound: 05/17/2023 Ultrasound Machine: MadeiraCloud Transducer: Linear 11 MHz Regions examined: Thyroid [...] * Physician Inter (more content not included)... [facility] 08-18-2023 History of Presen t illness Narrative [...] LH, estradiol - Consider pelvic US by SATELLITE MANAGER - Weight loss recommendations: Advised about lifestyle [...] (H) ( Neck Ultrasound: 05/17/2023 Ultrasound Machine: MadeiraCloud Transducer: Linear 11 MHz Regions examined: Thyroid [...] DATE OF EXAM: Apr 19 2022 8:15AM [facility] 1048 - US THYROID/PARATHYROID / PROCEDURE REASON: [...] 2 points Echogenicity: Hypoechoic, 2 points Shape: Covur-oibs-shib, 0 points Margin: Lobulated or irregular, 2 [...] QUANTITATIVE; Future This note was created using [employer] dictation software. You may find errors that were missed during proofreading. They are purely unintentional and if there are any concerns regarding this dictation, please do not hesitate to contact the dictating provider for clarification. Discussed with Attending Staff, Dr. Cerda Addendum to follow. Yesi Pizano MD Clinical Fellow Endocrinology and Metabolism [place] Attending Note I evaluated the patient and [...] Gretel Stevens MD documented in this encounter [facility] 08-02-2023 Miscellaneous Notes Spoke with patient [...] to consider it. She will see her merchandise flow associate which is a new merchandise flow associate in August and then if still interested in pursuing thyroidectomy will reach out to me. In the meantime we can hold a surgical date. Latasha Bobo MD Pt calling for lab results. Please call documented in this encounter [facility] 05-20-2023 Evaluation note Encounter Date Diagnosis Assessment Notes May, Moderate major depression (ICD-10 - F32.1) May, Chronic GERD (ICD-10 - K21.9) [employer] [facility] Other 12-08-2023 NoteHNO ID: [id number] Author: Latasha Bobo MD Service: ? Author Type: Physician Type: Progress Notes Filed: 05/17/2023 1:09 AM Note Text: [place] [facility] follow-up CC: thyroid nodules HPI: Sheyla [...] mobility normal Neck Ultrasound: 05/17/2023 Ultrasound Machine: MadeiraCloud Transducer: Linear 11 MHz Regions examined: Thyroid [...] Making Level: 3 - Low Latasha Bobo, [facility]11-17-2023 Evaluation note* Encounter Date Diagnosis Assessment [...] left side of neck. will get US. [employer] [facility] Other 09-13-2023 NotePatient Education Materials Follows:Disease Viral [...] home: Managing pain and congestion ? Take fuvd-mrw-nbsslpi and prescription medicines only as told by [...] water are not available, use alcohol-based hand dentistry teacher. ? Cover your mouth when you cough. [...] against viruses. 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 Living on her [...] Weight gain (ICD-10 - R63.5) see above [employer] [facility] Other 08-23-2023 NoteEducation Materials Gastroenterology Constipation, Adult [...] in fat and sugar, such as: ? Yoruba fries. ? Hamburgers. ? Cookies. ? Candy. ? Soda. ? Drink enough fluid to keep your pee (urine) pale yellow. General instructions ? Exercise regularly or as told by your doctor. Try to do 150 minutes of exercise each week. ? Go to the restroom when you feel like you need to poop. Do not hold it in. ? Take wxwo-eym-evlvqtz and prescription medicines only as told by [...] your pee (urine) pale yellow. ? Take okqj-znp-xryfqvm and prescription medicines only as told by your doctor. These include any fiber supplements. This information is not intended to replace advice given to you by your health care provider. Make sure you discuss any questions you have with your health care provider. Document Revised: 03/20/2020 Document Reviewed: 03/20/2020 [employer] Patient Education ? 2022 edjing. Abdominal Pain, Adult Many things can cause belly (abdominal) pain. Most times, belly pain is not dangerous. Many cases of belly pain can be watched and treated at home. Sometimes, though, belly pain is serious. Your doctor will try to find the cause of your belly pain. Follow these instructions at home: Medicines ? Take yoih-bqz-ynbqhqt and prescription medicines only as told by [...] belly pain for any changes. ? Take horj-zug-mplsbbe and prescription medicines only as told by [...] 09/11/2019 Document Reviewed: 09/11/19 (more content not included)...[facility] [id number] NotePatient Education Materials Follows: Antibiotic Medicine, Adult [...] Follow these instructions at home: ? Take lxcy-srx-ilkrwjz and prescription medicines as told by your health care provider. ? Return to your normal activities as told by your health care provider. Ask your health care provider what activities are safe for you. ? Keep all follow-up visits as told by your health care provider. This is important. Contact a health care provider if: ? (more content not included)...[facility] [id number] NotePatient Education Materials Follows: Corneal Abrasion A [...] condition may be caused by: ? A educational fundraising director the eye. ? A gritty or irritating [...] in diseases and conditions of the eye (turn down worker). This condition may be diagnosed based on your medical history, symptoms, and an eye exam. Before the eye exam, numbing drops may be put into your eye. You may also have dye put in your eye with a dropper or a small paper strip. The dye makes the abrasion easy to see when your turn down worker examines your eye with a light. Your turn down worker may look at your eye through an [...] you start to feel better. ? Take bkuc-fcx-nkzhlat and prescription medicines only as told by your health care provider. ? Ask your health care provider if the medicine prescribed to you: ? Requires you to avoid driving or using heavy machinery. ? Can cause constipation. You may need to take these actions to prevent or treat constipation: ? Drink enough fluid to keep your urine pale yellow. ? Take jgkf-uuw-nzznpfd or prescription medicines. ? Eat foods that [...] wearing an eye patch. 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 ? Follow instructions from [...] You have vision loss (more content not included)...[facility] [id number] NoteEducation Materials Cardiovascular Hypertension, Adult High blood [...] without skin, beans, e (more content not included)...[facility] [id number] NotePatient Education Materials Follows: Otitis Media, Adult [...] Follow these instructions at home: ? Take uxkb-iyj-juhmldv and prescription medicines only as told by [...] provider. Document Revised: 08/11/2021 Document Reviewed: 08/11/2021 Else[employer] Patient Education ? 2021 edjing.[facility] [id number] Nurse Note* Carmela Pleitez Ma - 05/28/2022 8:31 AM EST Tobacco Use: Never Was smoking cessation packet given? N/A - Patient is a non-smoker or quit >1 year ago. Was a referral initiated?N/A Patient is a non-smoker [facility] History of Present illness Narrative* Latasha [...] 2 points Echogenicity: Hypoechoic, 2 points Shape: Kkvww-quxm-gqex, 0 points Margin: Lobulated or irregular, 2 [...] palpable lymphadenopathy Neck Ultrasound: 06/02/2022 Ultrasound Machine: MadeiraCloud Transducer: Linear 11 MHz Regions examined: Thyroid [...] to set up visit with a new merchandise flow associate now that she is nearly an adult [...] Low Latasha Bobo MD [facility] Miscellaneous Notes* Telephone Encounter - Mana [...] number for her to call if needed: [phone]. After discussion with Dr. Chaparro, the plan of care is for Sheyla to follow up with adult ENT first. She should be scheduled with Dr. Latasha Bobo. Consult to adult ENT placed with instructions to schedule with Dr. Latasha Bobo. Will send message to scheduling. No active mychart to send message to patient. [facility] Miscellaneous Notes* Telephone Encounter - Mana Aguilar APRN.CNP - 04/21/2022 1:16 PM EST Called and spoke to mother of Sheyla about thyroid ultrasound results. Discussed that the nodules inthyroid have grown, which warrants further work up and evaluation to rule out any malignancy. I discussed with mother that Sheyla should follow up with Dr. Chaparro in the [facility] for further evaluation. Discussed that there is [...] schedule. Mana Aguilar APRN.CNP [facility] Miscellaneous Notes* Telephone Encounter - Mana [...] care. Mana Aguilar APRN.CNP [facility] Instructions* Patient Instructions* Mana Aguilar APRN.CNP - 04/15/2022 2:17 PM EST Please get labs Please schedule for ultrasound Follow up with nutrition for dietary guidance [facility] History of Present illness Narrative* Mana Aguilar APRN.CNP - 04/15/2022 2:01 PM EST Images from the original note were not included. [facility] Division of Pediatrics CLINIC NOTE Pediatric and [...] note: Initial presentation was when she saw antisqueak filler Dr Pleitez for pelvic pain who noticed thyromegaly so ordered US and TFTs. US showed small nodule (0o2y3ed) with benign features and gland was non [...] 0.8 - 2.1 ng/dL 1.1 Scanned into [facility] from 06/08/2018: FSH 7, LH 3.3 Testosterone [...] Height: 32 %ile (Z= -0.47) based on [facility] (Girls, 2-20 Years) Nshukro-gsi-qju data based on Stature recorded on 04/15/2022. Weight: 98 %ile (Z= 2.01) based on [facility] (Girls, 2-20 Years) qqdkmo-lbv-yhv data using vitals from 04/15/2022. BMI: 90% [...] for 30 minutes. Denies poly symptoms. Encouraged tax assistant visit. I spent a total of 40 minutes on the date of the service which included preparing to see the patient, tans-xl-argn patient care, completing clinical documentation, obtaining and/or reviewing separately obtained history, performing a medically appropriate examination, counseling and educating the pat ient/family/caregiver, and ordering medications, tests, or procedures. Follow up in 6 months. Mana Aguilar APRN-JOSE LUIS cc: [place] [id number] [facility] [address] [facility] [address] Parent of Sheyla Lea [address] [place] [id number] documented in this encounterGrant Hospital10-[facility]-2022 NotePatient Education Materials Follows: Foot Pain [...] clean and dry. General instructions ? Take iukr-rqy-moqiwvc and prescription medicines only as told by [...] provider. Document Revised: 08/06/2021 Document Reviewed: 08/06/2021 [employer] Patient Education ? 2021 [employer] Inc. Ankle Pain The ankle joint holds [...] by your health care provider. ? Take wbpt-aly-eiwuzay and prescription medicines only as told by your health care provider. ? Keep all follow-up visits as told by your health care provider. This is important. (more content not included)...Keli [id number] History general Narrative - Reported* Type Description Date Medical History Hx of ear infections Medical History ingrown toenail Surgical History tubes in bilateral ears 2011 Surgical History tonsillectomy and adenoidectomy 06/2017 Surgical History tubes in bilateral ears 06/2017 [facility] Other Evaluation note* Diagnosis Abnormal thyroid blood test- Primary Nonspecific abnormal results of thyroid function study History of thyroid nodule Personal history of other endocrine, metabolic, and immunity disorders Obesity, pediatric, BMI greater than or equal 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 documented in this encounter [facility] note* Diagnosis Abnormal thyroid blood test- Primary Nonspecific abnormal results of thyroid function study History of thyroid nodule Personal history of other endocrine, metabolic, and immunity disorders documented in this encounter [facility] note* Diagnosis Thyroid nodule- Primary Nontoxic uninodular goiter Abnormal thyroid blood test Nonspecific abnormal results of thyroid function study History of thyroid nodule Personal history of other endocrine, metabolic, and immunity disorders documented in this encounter [facility] noteNo InformationNortSt. Mary Medical Center [place] Other Evaluation noteNo assessment information [facility] Work Phone: Evaluation note* Diagnosis Abnormal thyroid blood test Nonspecific abnormal results of thyroid function study History of thyroid nodule Personal history of other endocrine, metabolic, and immunity disorders documented in this encounter [facility] note* Diagnosis Thyroiditis- Primary Thyroiditis, unspecified documented in this encounter [facility] note* Diagnosis Pre-op evaluation- Primary Preoperative examination, unspecified Gastroesophageal reflux disease, unspecified whether esophagitis present Obesity, pediatric, BMI greater than or equal 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 Thyroiditis Thyroiditis, unspecified documented in this encounter [facility] note* Diagnosis PCOS (polycystic ovarian syndrome)- Primary Polycystic ovaries Thyroid nodule Nontoxic uninodular goiter Thyroiditis Thyroiditis, unspecified documented in this encounter [facility] note* Diagnosis Hypothyroidism (acquired)- Primary Unspecified hypothyroidism documented in this encounter [facility] note* Diagnosis Mood disorder (CMS/HCC) Unspecified episodic mood disorder Anxious mood Anxiety state, unspecified Hormone imbalance Irregular periods Weight gain Other symptoms concerning nutrition, metabolism, and development [facility]* Diagnosis Encounter for weight management documented in [facility] encounter [facility]* Diagnosis Anxiety, generalized (CMS/[facility])- Primary Postoperative visit S/P laparoscopy Other postprocedural status Encounter for repeat prescription of oral contraceptives documented in this encounter [facility]* Diagnosis Weight gain- Primary Other symptoms concerning nutrition, metabolism, and development documented in this encounter [facility] note* Diagnosis Flu-like symptoms- Primary Acute non-recurrent frontal sinusitis Yeast vaginitis [facility] Diagnosis Postoperative hypothyroidism- Primary Postsurgical hypothyroidism [facility]* Diagnosis Wellness examination- Primary Tinea [...] adult Generalized anxiety disorder Moderate major depression ([facility]) Major depressive disorder, single episode, moderate [...] present Immunization due documented in [facility] encounter [facility]* Diagnosis Nausea- Primary Nausea alone Cramping affecting , antepartum ([facility]) Missed menses documented [facility]* Diagnosis Missed menses , unspecified gestational age ([facility]) Encounter for supervision of normal first in first trimester ([facility]) documented [facility] this [facility]* Diagnosis First trimester ([facility]) state, incidental 9 weeks gestation of ([facility]) Encounter to discuss test results Other specified counseling headache, antepartum ([facility]) Nausea Nausea alone documented [facility]* Diagnosis Thyroid disease affecting - Primary Postoperative hypothyroidism Postsurgical hypothyroidism documented in this encounter [facility]* Diagnosis Thyroid disease affecting - Primary [facility]* Diagnosis 11 weeks gestation of ([facility]) First trimester ([facility]) state, incidental Thyroid disease Unspecified disorder of thyroid H/O thyroidectomy Exposure to STD Vaginal discharge Leukorrhea, not specified as infective Constipation, unspecified constipation type documented [facility] encounter [facility]* Diagnosis 15 weeks gestation of ([facility]) Second trimester ([facility]) state, incidental Screening, , for anatomic survey ([facility]) Encounter for anatomic survey documented in this encounter [facility] HealthcareInstructionsNot on filedocumented in this encounterProRussellville Hospital Health SystemInstructionsNot on filedocumented in this encounterProNorwalk Memorial HospitalGamma Medica SystemInstructionsNot on filedocumented in this encounterProNorwalk Memorial Hospitalca Health System InstructionsNot on filedocumented in this encounterProMedica Health System InstructionsNot on filedocumented in this encounterProMedica Health System InstructionsNot on filedocumented in this encounterPorter Medical CenterMedica Health System Instructions* Attachments The following attachments cannot be sent through Care Everywhere. * Acid Reflux and GERD in Adults Discharge Instructions (Macedonian) documented in this encounterProRussellville Hospital Health SystemInstructionsNot on file documented in this encounterProNorwalk Memorial HospitalEARTHTORY Health SystemInstructionsNot on file documented in this encounterProRussellville Hospital Advanced [employer] SystemInstructionsNot on file documented in this encounterProRussellville Hospital Health SystemInstructionsNot on file documented in this encounterProPremier Health [facility] SystemInstructions* Attachments The following attachments cannot be sent through Care Everywhere. * Acid Reflux and GERD in Adults Discharge Instructions (Macedonian) documented in this encounterProRussellville Hospital Health SystemInstructionsNot on file documented in this encounterProRussellville Hospital Health SystemInstructionsNot on file documented in this encounterProRussellville Hospital Health SystemInstructionsNot on file documented in this encounterProPremier Health [facility] SystemInstructionsNot on file documented in this encounterProRussellville Hospital Health SystemInstructionsNot on file documented in this encounterProRussellville Hospital Health SystemInstructionsNot on file documented in this encounterProPremier Health [facility] SystemInstructionsNot on file documented in this encounterCleveland Clinic SystemReason for referral (narrative)* Diagnostic Procedure Only (Routine) - Authorized Specialty Diagnoses / Procedures Referred By Rodger matute Referred To Contact US IMAGING Diagnoses Abnormal thyroid blood test History of thyroid nodule Procedures US THYROID/PARATHYROID US SOFT TISSUE HEAD & NECK REAL TIME IMGE DOCM Mana Aguilar APRN.CNP [address] [id number] Us Imaging Referral ID Status Reason Start Date Expiration Date Visits Requested Visits Authorized [id number] Authorized Auto-Generat ed Referral 2 05/15/2023 1 1 * Consult, Test, Treat (Routine) - Authorized Specialty Diagnoses / Procedures Referred By Rodger matute Referred To Contact Pediatric Nutrition Diagnoses Obesity, pediatric, BMI greater than or equal 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 Procedures CONSULT TO PED NUTRITION OFFICE/OUTPATIENT [facility] 60-74 MINUTES Mana Aguilar APRN.CNP [address] [place] [address] Referral ID Status Reason Start Date Expiration Date Visits Requested Visits Authorized [id number] Authorized PCP Requested Referral 2 04/15/2023 1 1 [facility] Reason counseling - john if able, if not [facility] anxiety/depression/stress Diagnosis 1 Mild major depressio n (F32.0) Diagnosis 2 Generalized anxiety disorder (F41.1) Referral Organization [facility] Family Edyta Mccoy Referring Provider First Name Aime Referring Provider Last Name [place] Referring Provider Specialty Family [facility] Referred Organization Unknown Facility Referred Provider Specialty Other Medica l Care Referral Priority Routine [facility] CO-Value Other Reason for referral (narrative)* Diagnostic Procedure Only (Routine) - Closed Specialty Diagnoses / Procedures Referred By Rodger matute Referred To Contact US IMAGING Diagnoses Abnormal thyroid blood test History of thyroid nodule Procedures US THYROID/PARATHYROID US SOFT TISSUE HEAD & NECK REAL TIME IMGE DOCM Mana Aguilar APRN.JOSE LUIS [address] [place] [address] [facility] [place] [address] Referral ID Status Reason Start Date Expiration Date V isits Requested Visits Authorized [id number] Closed Auto-Generate d Referral 04/15/2022 05/15/2023 1 1 [facility] for referral (narrative)* Outpatient Procedure (Routine) - Pending Review Specialty Diagnoses / Procedures Referred By Rodger matute Referred To Contact [facility] Diagnoses Thyroiditis Procedures ECG COMPLETE ECG ROUTINE ECG W/LEAST 12 LDS W/I&R Latasha Bobo MD [address] [place] [address] [facility] [address] [place] [address] Referral ID Status Reason Start Date Expiration Date Visits Requested Visits Authorized [id number] Pending Review Auto-Generat ed Referral 08/02/2023 08/01/2024 1 1 [facility] for referral (narrative)* Consultation (Routine) - Pending Review Specialty Diagnoses / Procedures Referred By Rodger matute Referred To Contact Gastroenterology Diagnoses Esophageal dysphagia Gastroesophageal reflux disease without esophagitis Anita Elmore, [employer] SUPERVISOR-[employer]ENSE INCIDENT RESPONDER [address] [place] [address] Meliton Dow MD [address] [address] Referral ID Status Reason Start Date Expiration Date Visits Requested Visits Authorized [id number] Pending Review Specialty Services Required 02/10/2024 02/09/2025 1 1 [facility] for visit Narrative* Diagnostic Procedure Only (Routine) - Closed Specialty Diagnoses / Procedures Referred By Rodger matute Referred To Contact US IMAGING Diagnoses Abnormal thyroid blood test History of thyroid nodule Procedures US THYROID/PARATHYROID US SOFT TISSUE HEAD & NECK REAL TIME IMGE DOCM Mana Aguilar APRN.CNP [address] [place] [address] [facility] [place] [address] Referral ID Status Reason Start Date Expiration Date V isits Requested Visits Authorized [id number] Closed Auto-Generate d Referral 04/15/2022 05/15/2023 1 1 [facility] Summary Purpose Family History No Family [...] thyroid nodule Procedures CONSULT TO ENT OFFICE/OUTPATIENT [facility] 60-74 MINUTES Mana Aguilar APRN.[employer] INCIDENT RESPONDER [address] [place] [address] Referral ID Status Reason Start Date Expiration Date Visits Requested Visits Authorized [id number] Authorized PCP Requested Referral 04/24/2022 04/24/2023 1 [...] or prosecute any alcohol or drug abuse patient.[facility] Hospital[facility] the event this information is protected by the Federal Confidentiality of Alcohol and Drug Abuse Patient Records regulations: The Federal rules restrict any use of the information to criminally investigate or prosecute any alcohol or drug abuse patient.[facility] HospitalIn the event this information is protected by the Federal Confidentiality of Alcohol and Drug Abuse Patient Records regulations: The Federal rules restrict any use of the information to criminally investigate or prosecute any alcohol or drug abuse patient.[facility] HospitalIn the event this information is protected by the Federal Confidentiality of Alcohol and Drug Abuse Patient Records regulations: The Federal rules restrict any use of the information to criminally investigate or prosecute any alcohol or drug abuse patient.[facility] HospitalIn the event this information is protected by the Federal Confidentiality of Alcohol and Drug Abuse Patient Records regulations: The Federal rules restrict any use of the information to criminally investigate or prosecute any alcohol or drug abuse patient.[facility] HospitalIn the event this information is protected by the Federal Confidentiality of Alcohol and Drug Abuse Patient Records regulations: The Federal rules restrict any use of the information to criminally investigate or prosecute any alcohol or drug abuse patient.[facility] HospitalIn the event this information is protected by the Federal Confidentiality of Alcohol and Drug Abuse Patient Records regulations: The Federal rules restrict any use of the information to criminally investigate or prosecute any alcohol or drug abuse patient.[facility] HospitalIn the event this information is protected by the Federal Confidentiality of Alcohol and Drug Abuse Patient Records regulations: The Federal rules restrict any use of the information to criminally investigate or prosecute any alcohol or drug abuse patient.[facility] HospitalIn the event this information is protected by the Federal Confidentiality of Alcohol and Drug Abuse Patient Records regulations: The Federal rules restrict any use of the information to criminally investigate or prosecute any alcohol or drug abuse patient.[facility] HospitalIn the event this information is protected by the Federal Confidentiality of Alcohol and Drug Abuse Patient Records regulations: The Federal rules restrict any use of the information to criminally investigate or prosecute any alcohol or drug abuse patient.[facility] HospitalIn the event this information is protected by the Federal Confidentiality of Alcohol and Drug Abuse Patient Records regulations: The Federal rules restrict any use of the information to criminally investigate or prosecute any alcohol or drug abuse patient.[facility] HospitalIn the event this information is protected by the Federal Confidentiality of Alcohol and Drug Abuse Patient Records regulations: The Federal rules restrict any use of the information to criminally investigate or prosecute any alcohol or drug abuse patient.[facility] HospitalIn the event this information is protected by the Federal Confidentiality of Alcohol and Drug Abuse Patient Records regulations: The Federal rules restrict any use of the information to criminally investigate or prosecute any alcohol or drug abuse patient.[facility] Reason for Visit (unrecogniz ed section [...] NEW HIGH MDM 60-74 MINUTES Mana Aguilar APRN.[employer] INCIDENT RESPONDER [address] [place] [address] [facility] [address] [place] [address] Referral ID Status Reason Start Date Expiration Date V isits Requested Visits Authorized [id number] Closed PCP Requested Referral 04/24/2022 04/24/2023 1 [...] Care Teams (unrecognized sec tion and content) Geography Department Chair Relationship Specialty Start Date End Date Jas Salgaod [address] [place] [address] [place] [address] PCP - General Family Medicine 04/20/13 Geography Department Chair Relationship Specialty Start Date End Date Jas Salgado [address] [address] [place] [address] PCP - General Family Medicine 04/20/13 Geography Department Chair Relationship Specialty Start Date End Date Jas Salgado [address] [address] [place] [address] PCP - General Family Medicine 04/20/13 Geography Department Chair Relationship Specialty Start Date End Date Jas Salgado [address] [address] [place] [address] PCP - General Family Medicine 04/20/13 Geography Department Chair Relationship Specialty Start Date End Date Jas Salgado [address] [address] [place] [address] PCP - General Family Medicine 04/20/13 Geography Department Chair Relationship Specialty Start Date End Date Jas Salgado [address] [address] [place] [address] PCP - General Family Medicine 04/20/13 Team Status: Active Member Role Status Dates Kevin Stokes , DO Primary Care Provider Active Team Status: Inactive Member Role Status Dates Kevin Stokes , DO Primary Care Provider Active Braxton Toussaint , DO [facility] Attending Provider Active Geography Department Chair Relationship Specialty Start Date End Date Jas Salgado [address] [place] [address] PCP - General Family Medicine 04/20/13 Geography Department Chair Relationship Specialty Start Date End Date Aime Goff DO [address] [facility] [place] [address] PCP - General Family Medicine 07/09/23 Geography Department Chair Relationship Specialty Start Date End Date Anita Elmore NP [address] [place] [address] PCP - General Family Medicine 08/17/23 Geography Department Chair Relationship Specialty Start Date End Date Anita Elmore NP [address] [place] [address] PCP - General Family Medicine 08/17/23 Geography Department Chair Relationship Specialty Start Date End Date Anita Elmore NP [address] [place] [address] PCP - General Family Medicine 08/17/23 Geography Department Chair Relationship Specialty Start Date End Date Anita Elmore NP [address] [place] [address] PCP - General Family Medicine 08/17/23 Geography Department Chair Relationship Specialty Start Date End Date Anita Elmore NP [address] [place] [address] PCP - General Family Medicine 08/17/23 Geography Department Chair Relationship Specialty Start Date End Date Regino Santoro MD [address] [facility] [place] [address] PCP - General Family Medicine 04/07/24 Geography Department Chair Relationship Specialty Start Date End Date Anita Elmore [employer]OCK[employer] SUPERVISORCYBER DEFENSE INCIDENT RESPONDER [address] [place] [address] PCP - General Internal Medicine 08/25/23 Geography Department Chair Relationship Specialty Start Date End Date Anita Elmore [employer] SUPERVISORCYBER DEFENSE INCIDENT RESPONDER [address] [place] [address] PCP - General Internal Medicine 08/25/23 Geography Department Chair Relationship Specialty Start Date End Date Anita Elmore [facility] [address] [place] [address] PCP - General Internal Medicine 08/25/23 Geography Department Chair Relationship Specialty Start Date End Date Anita Elmore STOCKROOM SUPERVISOR-[facility] [address] [place] [address] PCP - General Internal Medicine 08/25/23 Geography Department Chair Relationship Specialty Start Date End Date Anita Elmore [employer] SUPERVISORCYBER DEFENSE INCIDENT RESPONDER [address] [place] [address] PCP - General Internal Medicine 08/25/23 Geography Department Chair Relationship Specialty Start Date End Date Anita Elmore [employer] SUPERVISORCYBER DEFENSE INCIDENT RESPONDER [address] [place] [address] PCP - General Internal Medicine 08/25/23 Geography Department Chair Relationship Specialty Start Date End Date Anita Elmore [employer]OCKRO[employer] SUPERVISORCYBER DEFENSE INCIDENT RESPONDER [address] [place] [address] PCP - General Internal Medicine 08/25/23 Geography Department Chair Relationship Specialty Start Date End Date Anita Elmore [employer]OCK[employer]OM SUPERVISOR-CYBER DEFENSE INCIDENT RESPONDER [address] [place] [address] PCP - General Internal Medicine 08/25/23 Geography Department Chair Relationship Specialty Start Date End Date Anita Elmore [employer]OCKRO[employer] SUPERVISORCYBER DEFENSE INCIDENT RESPONDER [address] [place] [address] PCP - General Internal Medicine 08/25/23 Geography Department Chair Relationship Specialty Start Date End Date Anita Elmore [employer] SUPERVISORCYBER DEFENSE INCIDENT RESPONDER [address] [place] [address] PCP - General Internal Medicine 08/25/23 Geography Department Chair Relationship Specialty Start Date End Date Anita Elmore [employer]OCKRO[employer] SUPERVISORCYBER DEFENSE INCIDENT RESPONDER [address] [place] [address] PCP - General Internal Medicine 08/25/23 Geography Department Chair Relationship Specialty Start Date End Date Anita Elmore APRNCYBER DEFENSE INCIDENT RESPONDER [address] [place] [address] PCP - General Internal Medicine 08/25/23 Geography Department Chair Relationship Specialty Start Date End Date Anita Elmore STOCKROOM SUPERVISOR-CYBER DEFENSE INCIDENT RESPONDER [address] [place] [address] PCP - General Internal Medicine 08/25/23 Geography Department Chair Relationship Specialty Start Date End Date Anita Elmore [employer] SUPERVISOR-CYBER DEFENSE INCIDENT RESPONDER [address] [place] [address] PCP - General Internal Medicine 08/25/23 Geography Department Chair Relationship Specialty Start Date End Date Anita Elmore, STOCKROOM SUPERVISOR-CYBER DEFENSE INCIDENT RESPONDER [address] [place] [address] PCP - General Internal Medicine 08/25/23 Geography Department Chair Relationship Specialty Start Date End Date Anita Elmore, STOCKROOM SUPERVISOR-CYBER DEFENSE INCIDENT RESPONDER [address] [place] [address] PCP - General Internal Medicine 08/25/23 Geography Department Chair Relationship Specialty Start Date End Date Anita Elmore, STOCKROOM SUPERVISOR-CYBER DEFENSE INCIDENT RESPONDER [address] [place] [address] PCP - General Internal Medicine 08/25/23 Geography Department Chair Relationship Specialty Start Date End Date Regino Santoro MD PCP - General Family Medicine 04/07/24 Geography Department Chair Relationship Specialty Start Date End Date Regino Santoro MD [address] [place] [address] PCP - General Family Medicine 04/07/24 Geography Department Chair Relationship Specialty Start Date End Date Regino Santoro MD [address] [place] [address] PCP - General Family Medicine 04/07/24 Geography Department Chair Relationship Specialty Start Date End Date Regino Santoro MD [address] [place] [address] PCP - General Family Medicine 04/07/24 Geography Department Chair Relationship Specialty Start Date End Date Regino Santoro MD [address] [place] [address] PCP - General Family Medicine 04/07/24 Geography Department Chair Relationship Specialty Start Date End Date Regino Santoro MD [address] [facility] [place] [address] PCP - General Family Medicine 04/07/24 Geography Department Chair Relationship Specialty Start Date End Date Regino Santoro MD [address] [facility] [place] [place] [address] PCP - General Family Medicine 10/12/24 Geography Department Chair Relationship Specialty Start Date End Date Regino Santoro MD [address] [facility] [place] [address] PCP - General Family Medicine 10/12/24 Geography Department Chair Relationship Specialty Start Date End Date Regino Santoro MD [address] [facility] [place] [place] [address] PCP - General Family Medicine 10/12/24 Geography Department Chair Relationship Specialty Start Date End Date Regino Santoro MD [address] [facility] [place] [address] PCP - General Family Medicine 04/07/24 Geography Department Chair Relationship Specialty Start Date End Date Regino Santoro MD [address] [facility] [place] [address] PCP - General Family Medicine 04/07/24 INFORMATION SOURCE (unrecogn ized section and content) DATE CREATED AUTHOR 04/19/2022 [facility] DATE CREATED AUTHOR AUTHOR'S ORGANIZ ATION 02/07/2023 [facility] DATE CREATED AUTHOR AUTHOR'S ORGANIZ ATION 10/15/2023 [facility] DATE CREATED AUTHOR AUTHOR'S ORGANIZ ATION 04/02/2024 [facility] DATE CREATED AUTHOR AUTHOR'S ORGANIZ ATION 10/15/2024 [facility] DATE CREATED AUTHOR AUTHOR'S ORGANIZ ATION 12/21/2024 [facility] DATE CREATED AUTHOR AUTHOR'S ORGANIZ ATION 12/31/2024 [facility] DATE CREATED AUTHOR AUTHOR'S ORGANIZ ATION 02/02/2025 [facility] EPIC Goals (unrecognized [...] BE BASED ON THE PRIMARY CLINICAL RECORDS. [employer] provides no warranty or guarantee of the accuracy or completeness of information in this document.
== END 2025-02-28 15:17 | disposition home or self-care (01) ==
LOC: LAB 15:17
PROVIDERS: PCP Family Medicine; Visit Provider Physician Assistant
DX: Z34.92 Encounter for supervision of normal pregnancy, unspecified, second trimester (principal); E07.9 Disorder of thyroid, unspecified; Z98.890 Other specified postprocedural states; Z90.89 Acquired absence of other organs
CPT/HCPCS: 36415; 82105; 84443

== ENCOUNTER 2025-04-21 09:31 | Outpatient (OUT) | payer BC, OTHER, SELFPAY ==
--- OUTSIDE RECORDS SUMMARY | 2025-04-17 12:49 | XMS_ITS | Encounter Summary ---
Author Organization [employer] tem Address [id number] [address] [place] [address] Care Team Providers Care Telecom Field Technician Name Role Phone Hector Dai MD Primary Care Provider [phone] Reason for Referral * Diagnostic Imaging (Routine) - Pending ReviewSpecialtyDiagnoses / Procedures Referred By ContactReferred To ContactMaternal and Medicine Diagnoses Encounter for other screening follow-up Procedures US MFM with or without consult Javier Loya MD [address] [place] [address] Phone: tel: fax: Maternal- Medicine at [facility] [address] [place] [address] Phone: tel: fax: Referral IDStatusReasonStart DateExpiration DateVisits RequestedVisits [id number] Reason for Visit * Diagnostic Imaging (Routine) - Pending ReviewSpecialtyDiagnoses / Procedures Referred By ContactReferred To ContactMaternal and Medicine Diagnoses Encounter for other screening follow-up Procedures US MFM with or without consult Javier Loya MD [address] [place] [address] Phone: tel: fax: Maternal- Medicine at [facility] [address] [place] [address] Phone: tel: fax: Referral IDStatusReasonStart DateExpiration DateVisits RequestedVisits [id number] Encounter Details DateTypeDepartmentCare Team (Latest Contact Info)Ullukyfgjao29/02/2025 12:49 PM EST - 04/17/2025 11:59 PM ESTHospital Encounter [facility]ound [address] [place] [address] Encounter for other screening follow-up Discharge Disposition: Home Social History Tobacco UseTypesPacks/DayYears UsedDateSmoking Tobacco: NeverSmokeless Tobacco: NeverAlcohol UseStandard Drinks/WeekCommentsNot Currently0 (1 standard drink = 0.6 oz pure alcohol)Overall Financial Resource Strain (CARDIA)AnswerDate RecordedHow hard is it for you to pay for the very basics like food, housing, medical care, and heating?Not hard at all08/25/2023HQ-2AnswerDate RecordedTotal Psoug99505/31/2023RAPARE - TransportationAnswerDate RecordedIn the past 12 months, has lack of transportation kept you from medical appointments or from getting medications?No08/25/2023In the past 12 months, has lack of transportation kept you from meetings, work, or from getting things needed for daily living?No08/25/2023Housing InstabilityAnswerDate RecordedAre you worried or concerned that in the next two months you may not have stable housing that you own, rent or stay in as a part of a household?No4ChildcareAnswer Date PcsgyghcZahwpgxxjWmqubbw26/06/2019EmploymentAnswerDate RecordedEmployment Pqewput1110/20/2018Hunger ScreeningAnswerDate RecordedWithin the past 12 months we worried whether our food would run out before we got money to buy more.Never True12/29/2024Within the past 12 months the food we bought just didn't last and we didn't have money to get more.Never True12/29/2024Purpose - LifeAnswerDate RecordedPurpose and direction in tfuaDtcwtwb93/11/2021Estimated Date of YchsfafmMhkajopqGom57/07/2026Based on UltrasoundSex and Gender InformationValue Date RecordedSex Assigned at BirthNot on fileLegal EtjCwzgne49/14/2017 2:44 PM ESTGender IdentityNot on fileSexual OrientationNot on filedocumented as of this encounter Medications at Time of Discharge MedicationSigDispense QuantityRefillsLast FilledStart DateEnd Date buPROPion SR (WELLBUTRIN SR) 150 mg 12 hr tablet Take 1 tablet (150 mg total) by mouth in the morning.03/08/2024 clindamycin-benzoyl peroxide (BENZACLIN) gel APPLY TO AFFECTED AREA TOPICALLY IN THE MORNING AND AT BEDTIME 25 g clobetasoL (TEMOVATE) 0.05 % cream Apply 1 Application topically in the morning and 1 Application before bedtime. 30 g 10/12/2024 levothyroxine (SYNTHROID, LEVOTHROID) 175 MCG tablet TAKE 1 TABLET BY MOUTH IN THE MORNING 90 tablet liothyronine (CYTOMEL) 5 MCG tablet Take 1 tablet (5 mcg total) by mouth in the morning. magnesium oxide (MAGOX) 400 mg tablet Take 1 tablet (400 mg total) by mouth in the morning. ondansetron ODT (ZOFRAN ODT) 4 mg disintegrating tablet DISSOLVE 1 TABLET (4 MG TOTAL) ON TONGUE EVERY 8 HOURS NEEDED FOR NAUSEA AND VOMITING 20 tablet pantoprazole (PROTONIX) 20 mg EC tablet TAKE 1 TABLET (20 MG TOTAL) BY MOUTH IN THE MORNING 90 tablet promethazine (PHENERGAN) 12.5 mg tablet Take 1 tablet (12.5 mg total) by mouth every 6 (six) hours as needed for nausea or vomiting.documented as of this encounter Plan of Treatment Not on file documented as of this encounter Procedures Procedure NamePriorityDate/TimeAssociated DiagnosisCommentsUS MFM OB FOLLOW-UP, 1 GRZYQRaphvkj56/02/2025 2:06 PM EST Encounter for other screening follow-up documented in this encounter Results * US MFM OB FOLLOW-UP, 1 FETUS (04/17/2025 2:06 PM EST)Anatomical Region LateralityModalityOB-GYNUltrasoundSpecimen (Source)Anatomical Location / LateralityCollection Method / VolumeCollection TimeReceived Time04/17/2025 1:00 PM EST Narrative 04/18/2025 5:23 PM EST NAME: ??DILCIA GONCALVES I : 2005 SEX: F Accession Number: [id number] ORDERING PHYSICIAN: JAVIER LOYA REFERRING PHYSICIAN: ADOLFO JAIN Coding Procedures ? 80982: Ultrasound, uterus, real time with image documentation, follow up,transabdominal ? approach per fetus Indication Screening for follow-up survey, Obesity in , Hypothyroidism. History OB History ? 1 Current Cell free DNA ?low risk analysis Maternal Assessment Physical Exam ??Height 157 cm, 5 ft 2 in. Initial weight 106 kg, 234 lb. Initial BMI 42.80 kg/m?? Method Transabdominal ultrasound examination. Lemos . Number of fetuses: 1 Dating LMP on: ?10/02/2024 GA by LMP ?28 w + 1 d BROOKE by LMP: ?07/09/2025 Previous Ultrasound on: ?11/30/2024 Type of prior assessment: ?GA GA at prior assessment date ?6 w + 5 d GA by previous U/S ? 26 w + 3 d BROOKE by previous Ultrasound: ?07/21/2025 Ultrasound examination on: ? 04/17/2025 GA by U/S based upon: ??AC, BPD, Femur, HC GA by U/S ?27 w + 2 d BROOKE by U/S: ?07/15/2025 Assigned: ?based on ultrasound (GA), selected on 03/13/2025 Assigned GA (weeks days) ? 26 w + 3 d Assigned BROOKE: ??07/21/2025 General Evaluation Cardiac activity Present. FHR 141 bpm. Presentation: cephalic Placenta: Placental site: anterior, away from cervical os Umbilical cord: Cord vessels: 3 vessel cord. Insertion site: documented previously Amniotic fluid: Amount of AF: normal amount. MVP 7.0 cm Biometry Standard BPD ?67.7 mm 27w 2d 68% Hadlock OFD 91.7 mm 29w 4d >99% Opal HC ? 254.9 mm ?27w 5d 67% Hadlock Cerebellum tr ??30.1 mm 26w 1d 52% Hill AC ? 235.3 mm ?27w 6d 82% Hadlock Femur ??48.9 mm 26w 3d 36% Hadlock Humerus ?45.7 mm 27w 0d 64% Opal HC / AC ?1.08 EFW ?1,058 g ??74% Hadlock EFW (lb) ? 2 lb EFW (oz) ? 5 oz EFW by: ?Hadlock ([id number]) Extended Tibia ??42.9 mm 26w 4d 51% Opal Materials Buyer ? 7.2 mm CM ? 5.2 mm ?? 17% Nicolaides Head / Face / Neck Cephalic index 0.74 ? 10% Nicolaides Nasal bone: ?present Extremities / Bony Struc FL / BPD ? 0.72 FL / HC ?0.19 FL / AC ?0.21 Other Structures FHR ?141 bpm Anatomy The following structures appear normal: Head/Neck: Cranium. Lateral ventricles. Midline falx. Cavum septi pellucidi. Cerebellum. Cisterna magna. Parenchyma. ? Vermis. ? Neck. Face: Lips. Profile. Nose. Nasal bone. Maxilla. Mandible. Orbits. Heart/Thorax: 4-chamber view. RVOT view. LVOT view. 3-vessel view. 9-zemzlh-krihiyi view. Situs. Ductal arch view. ? Interventricular septum. Great vessels. Cardiac position. Cardiac axis. Cardiac size. Cardiac rhythm. ? Right lung. Left lung. Diaphragm. Abdomen: Stomach. Kidneys. Bladder. The following structures were documented previously: Head / Neck ?Choroid plexus. Heart / Thorax Aortic arch view. Bicaval view. Abdomen ?Abdom. wall. Cord insertion. Right renal artery. Left renal artery. Genitals. Spine: Cervical spine. Thoracic spine. Lumbar spine. Sacral spine. Extremities/Skeleton: Right upper arm. Right forearm. Right hand. Left upper arm. Left forearm. Left hand. Right upper leg. ? Right lower leg. Right foot. Left upper leg. Left lower leg. Left foot. Maternal Structures Uterus Visualized Cervix Suboptimal Right Ovary ?Not visualized Left Ovary ? Not visualized [place] ? Visualized Impression Single live intrauterine at 26w 3d. Normal growth. EFW measures at the 74%, AC measures at the 82%. anatomic survey did not reveal sonographic evidence of any gross structural abnormalities. Amniotic fluid MVP measures 7 cm.p Recommendations Please see [facility] recommendations from prior clinical and/or ultrasound report documentation. Follow up growth ultrasounds to be done in referring OB office. Subsequent follow up or other follow up as clinically determined by primary OB provider unless otherwise specified by [facility]. Results forwarded to ordering provider so they can follow up with the patient as necessary. Procedure Note Norma Andrews MD - 04/18/2025 NAME: DILCIA GONCALVES I : 2005 SEX: F Accession Number: [id number] ORDERING PHYSICIAN: JAVIER LOYA REFERRING PHYSICIAN: ADOLFO JAIN Coding Procedures 84125: Ultrasound, uterus, real time with image documentation, follow up, transabdominal approach per fetus Indication Screening for follow-up survey, Obesity in , Hypothyroidism. History OB History 1 Current Cell free DNA low risk analysis Maternal Assessment Physical Exam Height 157 cm, 5 ft 2 in. Initial weight 106 kg, 234 lb.Initial BMI 42.80 kg/m?? Method Transabdominal ultrasound examination. Lemos . Number of fetuses: 1 Dating LMP on: 10/02/2024 GA by LMP 28 w + 1 d BROOKE by LMP: 07/09/2025 Previous Ultrasound on: 11/30/2024 Type of prior assessment: GA GA at prior assessment date 6 w + 5 d GA by previous U/S 26 w + 3 d BROOKE by previous Ultrasound: 07/21/2025 Ultrasound examination on: 04/17/2025 GA by U/S based upon: AC, BPD, Femur, HC GA by U/S 27 w + 2 d BROOKE by U/S: 07/15/2025 Assigned: based on ultrasound (GA), selected on 03/13/2025 Assigned GA (weeks days) 26 w + 3 d Assigned BROOKE: 07/21/2025 General Evaluation Cardiac activity Present. FHR 141 bpm. Presentation: cephalic Placenta: Placental site: anterior, away from cervical os Umbilical cord: Cord vessels: 3 vessel cord. Insertion site: documented previously Amniotic fluid: Amount of AF: normal amount. MVP 7.0 cm Biometry Standard BPD 67.7 mm 27w 2d 68% Hadlock OFD 91.7 mm 29w 4d >99% Opal HC 254.9 mm 27w 5d 67% Hadlock Cerebellum tr 30.1 mm 26w 1d 52% Hill AC 235.3 mm 27w 6d 82% Hadlock Femur 48.9 mm 26w 3d 36% Hadlock Humerus 45.7 mm 27w 0d 64% Opal HC / AC 1.08 EFW 1,058 g 74% Hadlock EFW (lb) 2 lb EFW (oz) 5 oz EFW by: Hadlock ([id number]-FL) Extended Tibia 42.9 mm 26w 4d 51% Opal Materials Buyer 7.2 mm CM 5.2 mm 17% Nicolaides Head / Face / Neck Cephalic index 0.74 10% Nicolaides Nasal bone: present Extremities / Bony Struc FL / BPD 0.72 FL / HC 0.19 FL / AC 0.21 Other Structures FHR 141 bpm Anatomy The following structures appear normal: Head/Neck: Cranium. Lateral ventricles. Midline falx. Cavum septipellucidi. Cerebellum. Cisterna magna. Parenchyma. Vermis. Neck. Face: Lips. Profile. Nose. Nasal bone. Maxilla. Mandible. Orbits. Heart/Thorax: 4-chamber view. RVOT view. LVOT view. 3-vessel view. 4-cqmtsx-pgrcyfg view. Situs. Ductal arch view. Interventricular septum. Great vessels. Cardiac position. Cardiacaxis. Cardiac size. Cardiac rhythm. Right lung. Left lung. Diaphragm. Abdomen: Stomach. Kidneys. Bladder. The following structures were documented previously: Head / Neck Choroid plexus. Heart / Thorax Aortic arch view. Bicaval view. Abdomen Abdom. wall. Cord insertion. Right renal artery. Left renalartery. Genitals. Spine: Cervical spine. Thoracic spine. Lumbar spine. Sacral spine. Extremities/Skeleton: Right upper arm. Right forearm. Right hand. Leftupper arm. Left forearm. Left hand. Right upper leg. Right lower leg. Right foot. Left upper leg. Left lower leg. Leftfoot. Maternal Structures Uterus Visualized Cervix Suboptimal Right Ovary Not visualized Left Ovary Not visualized Cul de Sac Visualized Impression Single live intrauterine at 26w 3d. Normal growth. EFW measures at the 74%, AC measures at the 82%. anatomic survey did not reveal sonographic evidence of any grossstructural abnormalities. Amniotic fluid MVP measures 7 cm.p Recommendations Please see [facility] recommendations from prior clinical and/or ultrasoundreport documentation. Follow up growth ultrasounds to be done in referring OB office. Subsequent follow up or other follow up as clinically determined byprimary OB provider unless otherwise specified by [facility]. Results forwarded to ordering provider so they can follow up with thepatient as necessary. Authorizing ProviderResult TypeResult StatusJavier JACKSON US ORDERABLES Final Result documented in this encounter Visit Diagnoses Diagnosis Encounter for other screening follow-up documented in this encounter Additional Health Concerns AssessmentNoted TimePHQ-9 Depression Total Score: 8:44 AM EST documented as of this encounter Care Teams Team MemberRelationshipSpecialtyStart DateEnd Hector Dai MD [address] [place] [address] PCP - GeneralFamily Medicine10/12/24documented as of this encounter
--- OUTSIDE RECORDS SUMMARY | 2025-04-21 09:36 | XMS_ITS | CCD ---
Author Organization [facility] Care Team Providers Care Sas Programmer Remote Name Role Phone Damian Jas Hewitt Primary Care Provider SEAN AGUILAR Referring Unavailable JAS SALGADO Primary Care Unavailable SEAN AGUILAR Referring Unavailable DAMIAN JAS Hewitt Primary Care Unavailable Aime Goff Unavailable Gerald Barboza Unavailable Angelique PACPower Attending Unavailable KEVIN STOKES Primary Care Unavailable oPwer [place] Admitting Unavailable ELIJAH Rodriguez Admitting Unavailable ELIJAH Rodriguez Attending Unavailable KEVIN STOKES Primary Care Unavailable Aime Goff Primary Care Unavailable ELIJAH Rodriguez Admitting Unavailable [...] Unavailabl DO Kevin Price Primary Care Provider [phone] DO Braxton Toussaint Attending Provider Schwerer DO, Aime E Primary Care Provider Catarina UPHOLSTERY PARTS SORTER, [facility] Primary Care Provider Catarina UPHOLST[employer] PARTS SORTER, [facility] Primary Care Provider [phone] CATARINA, ANITA Primary Care Unavailable YESI PIZANO [...] SCHWERER, AIME E Primary Care Unavailable PRENDES, ALTASHA L Admitting Unavailable Unavailable Primary Care Provider [...] Unavailable Regino Santoro MD Primary Care Provider [phone] Catarina ENGAGEMENT LEAD-LEGAL ASSISTANT, Anita L Primary Care Provider Regino aSntoro MD Primary Care Provider [phone] Regino Santoro MD Primary Care Provider [phone] Gerardo Meredith Admitting Unavailable Gerardo Meredith Attending Unavailable NON STAFF Admitting Unavailable NON STAFF Attending Unavailable Brooke Conde Attending Unavailable Catarina, Anita Primary Care Unavailable Brooke Conde Admitting Unavailable Regino Santoro MD Primary Care Provider [phone] CATARINA, ANITA L Referring Unavailable CATARINA, ANITA L Primary Care Unavailable CATARIAN, ANITA L Referring Unavailable CATARINA, ANITA L Primary Care Unavailable CATARINA, ANITA L Referring Unavailable CATARINA, ANITA L Primary Care Unavailable YUVAL LOYA Attending Unavailable VIRI, GERARDO R Referring Unavailable REGINO SANTORO Primary Care Unavailable Regino Santoro MD Primary Care Provider [phone] REGINO SANTORO Primary Care Unavailable VIRI, GERARDO R Referring Unavailable REGINO SANTORO Primary Care Unavailable NICHELLE SANCEHZ Attending Unavailable VIRI, GERARDO Attending Unavailable VIRI, GERARDO Attending Unavailable NICHELLE SANCHEZ Attending Unavailable VIRI, GERARDO Attending Unavailable VIRI, GERARDO Attending Unavailable VIRI, GERARDO Attending Unavailable LORETTA WINKLER Attending Unavailable REGINO SANTORO Referring Unavailable Allergies Allergy ClassificationReported Allergen(s)Allergy TypeDate of OnsetReaction(s) Facility (1 source)No Known Medication Allergies; Translations: [No Known Medication Allergies]Propensity to adverse reactions to drug (disorder)[facility] Medications Current Medications MedicationDrug Class(es)DatesSig (Normalized)Sig (Original)0.25 MG, 0.5 MG Dose 3 ML semaglutide 0.68 MG/ML Pen Injector [Ozempic] (3 sources)Start: 66-31-7708ekdlns 0.25 mg by subcutaneous injection every week, then inject 0.5 mg by subcutaneous injection every weekOzempic (0.25 or 0.5 MG/DOSE) 2 MG/3ML as directed Subcutaneous weekly for 30 days 0.25mg x weekly x 4 weeks then 0.5mg weekly Jan, Activeamoxicillin 875 mg / clavulanate 125 mg oral tablet (1 source)Penicillin-class AntibacterialStart: 09-28-2023 End: 84-06-8099wjjm 1 tablet by mouth once in the morningamoxicillin-pot clavulanate (AUGMENTIN) 875-125 mg per tablet Indications: Acute non-recurrent frontal sinusitis Take 1 tablet by mouth in the morning and 1 tablet before bedtime. Do all this for 7 days. 14 tablet 09/28/2023 10/05/2023 Activebenzoyl peroxide 0.05 mg/mg / clindamycin 0.01 mg/mg topical gel (20 sources)Lincosamide AntibacterialStart: 98-83-3044gvybhpnoxhy-benzoyl peroxide (BENZACLIN) gel APPLY TO AFFECTED AREA TOPICALLY IN THE MORNING AND AT BEDTIME 25 g 1 05/02/2024 ActiveStart: 12-29-2023 End: 07-56-6739pzvlntyngrr-benzoyl peroxide (BENZACLIN) gel APPLY TO AFFECTED AREA TOPICALLY IN THE MORNING AND ATBEDTIME 25 g 1 02/18/2024 ActiveStart: 08-25-2023 End: 67-37-4455sdkiwfjuuov-benzoyl peroxide (BENZACLIN) gel Apply 1 Application topically in the morning and 1 Application before bedtime. 25 g 1 11/25/2023 12/27/2023 Discontinued (Reorder)bisacodyl 10 mg rectal suppository (3 sources)Stimulant LaxativeStart: 01-02-2025 End: 43-58-0269ntbmfhpge (Dulcolax) 10 MG suppository Indications: Constipation, unspecified constipation type Insert 1 suppository (10 mg) into the rectum Daily for 10 days 10 suppository 01/02/2025 01/12/2025 Pkiziv18 hr buPROPion hydrochloride 150 mg extended release oral tablet (20 sources)AminoketoneStart: 03-08-2024 End: 98-80-3704chvj 1 tablet by mouth once daily, then take 1 tablet by mouth once dailybuPROPion SR (Wellbutrin SR) 150 MG 12 hr tablet Indications: Mood disorder , Anxious mood Take 1 tablet (150 mg) by mouth Daily Take 1 tablet daily 180 tablet 1 03/08/2024 ActiveStart: 62-51-9103hpzb 1 tablet by mouth every twelve hours in the morningbuPROPion SR (WELLBUTRIN SR) 150 mg 12 hr tablet Take 1 tablet (150 mg total) by mouth in the morning. 03/08/2024 Active busPIRone hydrochloride 5 mg oral tablet (18 sources)take 1 tablet by mouth at bedtimebusPIRone (Buspar) 5 MG tablet Take by mouth in the morning and before bedtime. Unsure of dose . Activecalcium carbonate 500 mg chewable tablet (9 sources)Start: 01-25-2025 End: 50-89-0291aqwdvje carbonate (Tums) 500 MG chewable tablet Indications: Heartburn during in second trimester ([facility]) Chew 1 tablet (500 mg) Daily 30 tablet 11 01/25/2025 01/25/2026 Activecephalexin 500 mg oral capsule (1 source)Cephalosporin AntibacterialStart: 71-02-4525ifun 1 capsule by mouth every twelve hoursCephalexin 500 MG 1 capsule Orally every 12 hrs for 10 days Jan, Activeclindamycin 20 mg/ml vaginal cream (1 source)Lincosamide AntibacterialStart: 03-13-2024 End: 86-65-9678jzjiyuffaun (CLEOCIN) 2 % vaginal cream Insert 1 applicator into the vagina nightly for 3 days. 40 g 03/13/2024 03/16/2024 Activeclobetasol propionate 0.5 mg/ml topical cream (3 sources)CorticosteroidStart: 70-85-7427kxsfuzgfbU (TEMOVATE) 0.05 % cream Apply 1 Application topically in the morning and 1 Application before bedtime. 30 g 10/12/2024 Activeethinyl estradiol 0.035 mg / norgestimate 0.25 mg oral tablet (20 sources)Progestin, EstrogenStart: 11-24-2023 End: 56-73-9199wvhv 1 tablet by mouth once dailynorgestimate-ethinyl estradiol (Sprintec 28) 0.25-35 MG-MCG tablet Indications: Encounter for repeat prescription of oral contraceptives Take 1 tablet by mouth Daily 28 tablet 12 01/25/2024 01/24/2025 ActiveStart: 11-24-2023 End: 70-85-8907agyv 1 tablet by mouth once in the morningnorgestimate-ethinyl estradioL (ORTHO TRI-CYCLEN,TRINESSA) 0.18/0.215/0.25 mg-35 mcg (28) per tablet Take 1 tablet by mouth in the morning. 11/24/2023 02/18/2024 Discontinued (Therapy completed)Start: 11-24-2023 End: 44-64-2550xkdq 1 tablet by mouth once in the morningnorgestimate-ethinyl estradioL (ORTHO TRI-CYCLEN,TRINESSA) 0.18/0.215/0.25 mg-35 mcg (28) per tablet Take 1 tablet by mouth in the morning. 11/24/2023 01/24/2025 ActiveStart: 06-02-2018 End: 84-75-5469Uvgjklyjumci-Ethinyl Estradiol 0.18/0.215/0.25 mg-35 mcg (28) tab Start: 49-49-2641Jpruiypoqfww-Ethinyl Estradiol 0.18/0.215/0.25 mg-35 mcg (28) tablevothyroxine sodium 0.1 mg oral tablet (20 sources)l-ThyroxineStart: 03-01-2025 End: 91-98-4871wsrj 1 tablet by mouth before mealtimelevothyroxine (Synthroid, Levoxyl) 100 MCG tablet Indications: Thyroid disease Take 1 tablet (100 mcg) by mouth in the morning. Take before meals. 30 tablet 2 03/01/2025 03/31/2025 ActiveStart: 76-00-7018dsma 1 tablet by mouth before mealtimelevothyroxine (Synthroid, Levoxyl) 50 MCG tablet Take 50 mcg by mouth in the morning. Take before meals. 01/25/2025 ActiveStart: 12-26-2024 End: 91-40-7549zbeu 1 tablet by mouth once before mealtimelevothyroxine (Synthroid) 200 MCG tablet Indications: H/O thyroidectomy , Thyroid disease Take 1 tablet (200 mcg) by mouth in the morning. Take before meals. 30 tablet 11 12/26/2024 01/02/2025 DiscontinuedStart: 12-26-2024 End: 25-37-9722nudy 1 tablet by mouth once before mealtimelevothyroxine (Synthroid) 75 MCG tablet Indications: H/O thyroidectomy , Thyroid disease Take 1 tablet (75 mcg) by mouth in the morning. Take before meals. 30 tablet 11 12/26/2024 01/02/2025 DiscontinuedStart: 11-14-2024 End: 99-83-3265yvwh 1 tablet by mouth once before mealtimelevothyroxine (Synthroid) 50 MCG tablet Indications: H/O thyroidectomy Take 1 tablet (50 mcg) by mouth in the morning. Take before meals. 30 tablet 11 11/14/2024 01/02/2025 DiscontinuedStart: 66-42-7926hutk 1 tablet by mouth before mealtimelevothyroxine (Synthroid, Levoxyl) 175 MCG tablet Indications: Postoperative hypothyroidism Take 1 tablet (175 mcg) by mouth in the morning. Take before meals. 90 tablet 1 05/09/2024 ActiveStart: 04-03-2024 End: 17-11-9901ftss 1 tablet by mouth in the morninglevothyroxine (SYNTHROID, LEVOTHROID) 175 MCG tablet TAKE 1 TABLET BY MOUTH IN THE MORNING 90 tablet 1 05/01/2024 ActiveStart: 02-21-2024 End: 59-68-4250gcys 1 tablet by mouth in the morninglevothyroxine (SYNTHROID, LEVOTHROID) 150 MCG tablet TAKE 1 TABLET (150 MCG) BY MOUTH IN THE MORNING 30 tablet 03/20/2024 04/03/2024 Discontinued (Therapy completed)Start: 10-29-2023 End: 37-09-9556ithh 1 tablet by mouth in the morninglevothyroxine (SYNTHROID) 200 MCG tablet Take 1 tablet (200 mcg total) by mouth in the morning. 90 tablet 1 12/07/2023 ActiveStart: 10-04-2023 End: 41-79-5669qzminhjocxyht (Synthroid, Levoxyl) 150 MCG tablet Take 200 mcg by mouth in the morning. Take beforemeals. 10/04/2023 04/10/2024 Discontinued Start: 09-04-2023 End: 01-83-9998jhcarehezqsjm (SYNTHROID, LEVOTHROID) 150 MCG tablet Take 1 tablet (150 mcg total) by mouth. 09/04/2023 10/29/2023 Discontinued (Therapy completed)liothyronine sodium 0.005 mg oral tablet (20 sources)l-TriiodothyronineStart: 68-69-0288dglc 1 tablet by mouth once daily liothyronine (Cytomel) 5 MCG tablet Indications: Postoperative hypothyroidism TAKE 1 TABLET BY MOUTH DAILY. 90 tablet 1 12/14/2024 ActiveStart: 05-09-2024 End: 36-88-6714qtor 1 tablet by mouth once dailyliothyronine (Cytomel) 5 MCG tablet Indications: Postoperative hypothyroidism Take 1 tablet (5 mcg)by mouth Daily 90 tablet 1 05/09/2024 12/07/2024 Discontinued (Other)magnesium oxide 400 mg oral tablet (18 sources)Start: 12-19-2024 End: 11-28-9733scab 1 tablet by mouth once dailymagnesium oxide (Mag-Ox) 400 MG tablet Indications: headache, antepartum ([facility]) Take 1tablet (400 mg) by mouth Daily 30 tablet 6 12/19/2024 12/19/2025 Activemeclizine hydrochloride 25 mg oral tablet (4 sources)AntiemeticStart: 12-19-2024 End: 43-86-6930wzpv 1 tablet by mouth three times daily as needed for dizziness meclizine (Antivert) 25 MG tablet Indications: headache, antepartum ([facility]) , Nausea Take 1 tablet (25 mg) by mouth 3 (three) times a day as needed for dizziness for up to 10 days 30 tablet 12/19/2024 01/02/2025 DiscontinuedmetFORMIN hydrochloride 500 mg oral tablet (20 sources)BiguanideStart: 03-07-2024 End: 17-40-6267qtcc 2 tablets by mouth in the morningmetFORMIN (GLUCOPHAGE) 500 mg tablet Take 2 tablets (1,000 mg total) by mouth in the morning. 03/07/2024 03/07/2025 ActiveStart: 10-27-2023 End: 24-61-1565dreu 1 tablet by mouth at mealtimemetFORMIN (Glucophage) 500 MG tablet Indications: Hormone imbalance , Irregular periods , Weight gain Take 1 tablet (500 mg) by mouth in the morning. Take with meals. 30 tablet 11 12/27/2023 03/07/2024 Discontinuedmetoclopramide 10 mg oral tablet (9 sources)Dopamine-2 Receptor AntagonistStart: 01-25-2025 End: 22-68-1582zubtszcyzuehip (Reglan) 10 MG tablet Indications: Heartburn during in second trimester ([facility]) Take 1 tablet (10 mg) by mouth in the morning and 1 tablet (10 mg) at noon and 1 tablet (10 mg) in the evening. Take before meals. Take 1 tablet by mouth 30 minutes prior to meals 3 times daily as needed for nausea. 90 tablet 01/25/2025 Activenaproxen 500 mg oral tablet (1 source)Nonsteroidal Anti-inflammatory DrugStart: 82-96-7039kkxa 1 tablet by mouth twice dailyNaproxen (Naprosyn) 500 mg tablet Active 500 MG PO Twice daily December 08, 2017 12:00amondansetron 4 mg disintegrating oral tablet (20 sources)Serotonin-3 Receptor AntagonistStart: 12-29-2023 End: 60-30-0888rbjiktebnmd ODT (ZOFRAN ODT) 4 mg disintegrating tablet DISSOLVE 1 TABLET (4 MG TOTAL) ON TONGUE EVERY 8 HOURS NEEDED FOR NAUSEA AND VOMITING 20 tablet 1 02/18/2024 ActiveStart: 08-25-2023 End: 16-64-3438wsnl 1 tablet by mouth every eight hours as needed for nausea and vomitingondansetron ODT (ZOFRAN ODT) 4 mg disintegrating tablet Dissolve 1 tablet (4 mg total) on tongue every 8 (eight) hours as needed for nausea or vomiting. 20 tablet 1 11/25/2023 12/27/2023 Discontinued(Reorder)Start: 38-58-3970xjqj 1 tablet by mouth three times daily as needed for nausea Ondansetron 4 MG 1 tablet on the tongue and allow to dissolve Orally TID PRN nausea for 5 days Mar, ActiveStart: 94-51-5291Novoajpzyxx (Zofran Odt) 4 mg Tablet,Disintegrating Active 4 MG PO 2-3 TIMES PER DAY December 08, 2017 12:00amStart: 12-08-2017 End: 95-70-9445laqa 1 tablet by mouth every eight hoursOndansetron Hcl (Zofran) 4 mg tablet Discontinued 4 MG PO Q8H 15 5 December 08, 2017 12:00am December 13, 2017 12:01am End: 31-20-6129frsivismfmn ODT (Zofran-ODT) 4 MG disintegrating tablet Take 4 mg by mouth every 12 (twelve) hours if needed for nausea 11/22/2024 Discontinued Comment on above:Take 4 mg by mouth every 8 hours as needed for nausea/vomiting. pantoprazole 20 mg delayed release oral tablet (20 sources)Proton Pump InhibitorStart: 02-03-2024 End: 34-38-9049agrb 1 tablet by mouth in the morningpantoprazole (PROTONIX) 20 mg EC tablet TAKE 1 TABLET (20 MG TOTAL) BY MOUTH IN THE MORNING 90 tablet 1 03/02/2024 Activetake 1 tablet by mouth before mealtimepantoprazole (ProtoNix) 40 MG EC tablet Take 40 mg by mouth in the morning. Take before meals. Do not crush, chew, or split.. ActivepredniSONE 20 mg oral tablet (1 source)Start: 09-28-2023 End: 40-84-3885bwtc 1 tablet by mouth in the morningpredniSONE (DELTASONE) 20 mg tablet Indications: Acute non-recurrent frontal sinusitis Take 1 tablet (20 mg total) by mouth in the morning for 7 days. 7 tablet 09/28/2023 10/05/2023 Active promethazine hydrochloride 12.5 mg oral tablet (11 sources)PhenothiazineStart: 11-24-2024 End: 59-41-8365knzd 1 tablet by mouth every four hours for nausea and nausea promethazine (Phenergan) 12.5 MG tablet Indications: Nausea Take 1 tablet (12.5 mg) by mouth every 4 (four) hours 180 tablet 1 11/24/2024 01/02/2025 Discontinuedtake 1 tablet by mouth every six hours as needed for nausea and vomitingpromethazine (PHENERGAN) 12.5 mg tablet Take 1 tablet (12.5 mg total) by mouth every 6 (six) hours as needed for nausea or vomiting. Activesertraline 100 mg oral tablet (20 sources)Serotonin Reuptake InhibitorStart: 08-25-2023 End: 03-37-4431tiok 1 tablet by mouth in the morningsertraline (ZOLOFT) 100 mg tablet Take 1 tablet (100 mg total) by mouth in the morning. 90 tablet 1 11/25/2023 ActiveStart: 04-02-2023 End: 35-11-3583mqpu 1 tablet by mouth every twenty-four hoursZoloft 50 MG 1 tablet Orally Once a day for 90 days Mar, ActiveStart: 81-99-6599yoro 0.5 tablet by mouth once daily, then take 1 tablet by mouth once dailyZoloft 50 MG as directed Orally Once a day for 30 days 0.5 tablets PO daily x 1 week then 1 full tablet daily. Mar, ActiveComment on above:Take 50 mg by mouth once daily.24 hr venlafaxine 37.5 mg extended release oral capsule (20 sources)Serotonin and Norepinephrine Reuptake InhibitorStart: 01-25-2024 End: 07-08-5346kexo 1 capsule by mouth every twenty-four hours in the morning venlafaxine XR (EFFEXOR XR) 37.5 mg 24 hr capsule Take 1 capsule (37.5 mg total) by mouth in the morning. 01/25/2024 01/24/2025 ActiveStart: 01-25-2024 End: 68-42-6428mmrm 1 capsule by mouth once dailyvenlafaxine XR (Effexor XR) 37.5 MG 24 hr capsule Indications: Anxiety, generalized TAKE 1 CAPSULE BY MOUTH DAILY DO NOT CRUSH OR CHEW. 90 capsule 2 02/17/2024 12/07/2024 Discontinued (Other) Completed/Discontinued Medications MedicationDrug Class(es)DatesSig (Normalized)Sig (Original)betamethasone 0.5 mg/ml / clotrimazole 10 mg/ml topical cream (3 sources)Azole Antifungal, CorticosteroidStart: 10-28-2023 End: 55-88-1618sskizgraviap-betamethasone (LOTRISONE) cream Apply 1 Application topically in the morning and 1 Application before bedtime. Apply to affected area 2 times daily. 45 g 1 10/28/2023 11/23/2023 Discontinued (Therapy completed)cyclobenzaprine (1 source)Muscle Relaxant End: 36-96-8465rxnn 25 mg by mouth once daily as needed for sleepcyclobenzaprine HCl (FLEXERIL ORAL) Take 25 mg by mouth nightly as needed (sleep). 08/25/2023 Discontinued (Contact Move - Error)fluconazole 150 mg oral tablet (1 source)Azole AntifungalStart: 09-28-2023 End: 30-48-3048qenx 1 tablet by mouth oncefluconazole (DIFLUCAN) 150 mg tablet Indications: Yeast vaginitis Take 1 tablet (150 mg total) by mouth once for 1 dose. 1 tablet 09/28/2023 09/28/2023 Expiredhydrocortisone acetate 10 mg/ml / pramoxine hydrochloride 10 mg/ml rectal foam (7 sources)CorticosteroidStart: 02-18-2024 End: 31-47-7559wpswynhktvnhbd-pramoxine (PROCTOFOAM-HS) rectal foam Insert 1 applicator into the rectum in the morning and 1 applicator before bedtime. 10 g 02/18/2024 03/31/2024 Discontinued (Patient Stopped On Own)hydrOXYzine hydrochloride 10 mg oral tablet (20 sources)AntihistamineStart: 08-25-2023 End: 92-36-8726jnyq 1 tablet by mouth once daily as neededhydrOXYzine (ATARAX) 10 mg tablet TAKE 1 TABLET BY MOUTH NIGHTLY NEEDED FOR ITCHING. 30 tablet 02/04/2024 Discontinued (Stop Taking at Discharge)Start: 50-67-6311uoaq 1 capsule by mouth every twenty-four hoursVistaril 25 MG 1 capsule at bedtime as needed Orally Once a day Jan, ActiveComment on above:Take 25 mg by mouth once daily.levothyroxine (SYNTHROID, LEVOTHROID) 25 mcg/mL suspension (3 sources)Start: 02-04-2024 End: 81-70-8908hsjw 8 mL by mouth in the morninglevothyroxine (SYNTHROID, LEVOTHROID) 25 mcg/mL suspension Take 8 mL (200 mcg total) by mouth in the morning for 30 days. 240 mL 02/04/2024 02/18/2024 Discontinued (Therapy completed)Start: 02-04-2024 End: 04-50-7869sioc 8 mL by mouth in the morninglevothyroxine (SYNTHROID, LEVOTHROID) 25 mcg/mL suspension Take 8 mL (200 mcg total) by mouth in the morning for 30 days. 240 mL 02/04/2024 03/05/2024 ActivemedroxyPROGESTERone acetate 10 mg oral tablet (13 sources)ProgestinStart: 10-27-2023 End: 08-65-6788ssuw 1 tablet by mouth in the morningmedroxyPROGESTERone (PROVERA) 10 mg tablet Take 1 tablet (10 mg total) by mouth in the morning. 10/1502/03/2024 Discontinued (Therapy completed)minocycline 50 mg oral capsule (20 sources)Tetracycline-class DrugStart: 12-13-2023 End: 19-27-9956pmkz 1 capsule by mouth in the morningminocycline 50 MG capsule Indications: Acne, unspecified acne type TAKE 1 CAPSULE BY MOUTH IN THE MORNING and ONE CAPSULE BY MOUTH BEFORE bedtime 60 capsule 3 12/13/2023 12/07/2024 Discontinued (Other)Start: 10-27-2023 End: 10-16-3978bntt 1 tablet by mouth in the morning, then take 1 tablet by mouth at bedtimeminocycline (DYNACIN) 50 MG tablet Take 1 tablet (50 mg total) by mouth in the morning and 1 tablet(50 mg total) before bedtime. 10/27/2023 12/26/2023 Activemupirocin 0.02 mg/mg topical ointment (1 source)RNA Synthetase Inhibitor AntibacterialStart: 07-12-2017 End: 78-12-5284vzjomjfzm (BACTROBAN) 2 % ointment Indications: Epistaxis Apply intranasally bilat BID 15 g 07/12/2017 08/25/2023 Discontinued (Therapy completed)nitrofurantoin, macrocrystals 25 mg / nitrofurantoin, monohydrate 75 mg oral capsule (1 source)Nitrofuran AntibacterialStart: 09-09-2023 End: 46-43-8062ckbi 1 capsule by mouth twice dailynitrofurantoin monohydrate and macrocrystal (MACROBID) 100 mg capsule Take 1 capsule by mouth two times a day for 5 days. 10 capsule 0 09/09/2023 09/14/2023 Expirednystatin 503283 unt/ml oral suspension (1 source)Polyene AntifungalStart: 07-12-2017 End: 25-92-5406gqcq 5 mL by mouth four times dailynystatin (MYCOSTATIN) 100,000 unit/mL suspension Indications: Thrush Take 5 mL (500,000 Units total) by mouth 4 (four) times a day. 200 mL 07/12/2017 08/25/2023 Discontinued (Therapy completed)omeprazole 40 mg delayed release oral capsule (20 sources)Proton Pump InhibitorStart: 01-26-2024 End: 18-39-2618ersg 1 capsule by mouth once daily as needed for gastroesophageal reflux diseaseomeprazole (PriLOSEC) 40 mg capsule TAKE 1 CAPSULE BY MOUTH EVERY DAY NEEDED FOR HEARTBURN 90 capsule 1 01/26/2024 02/03/2024 Discontinued (Therapy completed)Start: 04-02-2023 End: 56-06-3618kudr 1 capsule by mouth once daily as needed for gastroesophageal reflux diseaseomeprazole (PriLOSEC) 40 mg capsule Take 1 capsule (40 mg total) by mouth daily as needed (heartburn). 30 capsule 1 12/29/2023 01/26/2024 DiscontinuedComment on above:Take 40 mg by mouth once daily.oxyCODONE hydrochloride 5 mg oral tablet (1 source)Opioid AgonistStart: 09-04-2023 End: 48-64-9043dwdn 1 tablet by mouth every six hours as neededoxyCODONE IR (ROXICODONE) 5 mg immediate release tablet Indications: Post-op pain Take 1 tablet by mouth every 6 hours as needed for up to 5 days. 15 tablet 0 09/04/2023 09/09/2023 Expiredphentermine hydrochloride 37.5 mg oral tablet (20 sources)Sympathomimetic Amine AnorecticStart: 12-20-2023 End: 64-96-4251oqfk 1 tablet by mouth before mealtimephentermine (Adipex-P) 37.5 MG tablet Indications: Encounter for weight management Take 1 tablet (37.5 mg) by mouth in the morning. Take before meals. 30 tablet 04/10/2024 12/07/2024 Discontinued (Other)terbinafine hydrochloride 10 mg/ml topical cream (12 sources)Allylamine AntifungalStart: 11-23-2023 End: 62-91-4670zzcecptexvv (LamISIL AT) 1 % cream Apply 1 Application topically in the morning and 1 Application before bedtime. 30 g 1 11/23/2023 02/04/2024 Discontinued (Stop Taking at Discharge) Problems Active Problems Problem ClassificationProblemDateDocumented DateEpisodic/ChronicAcute and chronic tonsillitis (20 sources)Hypertrophy of tonsils; Translations: [Hypertrophy of tonsils]Onset: [id number] disorders (20 sources)Generalized anxiety disorder; Translations: [Generalized anxiety disorder]Onset: 83-58-3491RcttnylZyyhpdtarrkkt of surgical procedures or medical care (20 sources)Postprocedural hypothyroidism; Translations: [Postoperative hypothyroidism]Onset: [id number]yzlv and procreative management (6 sources)Patient encounter status; Translations: [Persons encountering health services in other specified circumstances]35-92-4146RgoahyuuBvqjraehkk disorders (20 sources)Gastroesophageal reflux disease; Translations: [Gastro-esophageal reflux disease without esophagitis]Onset: 76-20-0039PgpbcsdIzcbzbwzvybbu and screening for infectious disease (5 sources)Encounter for immunization; Translations: [Influenza vaccination given]Onset: [id number]p disorders (20 sources)Irregular periods; Translations: [Irregular menstruation, unspecified]Onset: [id number] disorders (20 sources)Mild major depression; Translations: [Major depressive disorder, single episode, mild]Onset: 05-64-7930NatqewwKgcda complications of (2 sources)Uterine contractions problem; Translations: [Other specified related conditions, unspecified trimester]72-95-4921OznwrdpbPfmjh complications of (2 sources)Headache; Translations: [Other specified related conditions, unspecified trimester]60-71-6290OnvstcwoCzruy complications of (4 sources)Thyroid disease in mother complicating , childbirth AND/OR puerperium; Translations: [Endocrine, nutritional and metabolic diseases complicating , unspecified trimester]74-69-4518OutfmyyeRdvwd complications of (2 sources)Endocrine, nutritional and metabolic diseases complicating , unspecified trimester; Translations: [Endocrine, nutritional and metabolic diseases complicating , unspecified trimester]Onset: 19-85-3284Wtragvgm Other disorders of stomach and duodenum (1 source)Functional dyspepsia; Translations: [Functional dyspepsia]Onset: 77-86-5287ZzbgmhbaOxyof endocrine disorders (17 sources)Polycystic ovary syndrome; Translations: [Polycystic ovarian syndrome]Onset: 470584-29-1290PrjmggsIrnca endocrine disorders (1 source)Polycystic ovarian syndrome; Translations: [PCOS (polycystic ovarian syndrome)]Onset: 50-91-4934LuoaqjmNqipx endocrine disorders (2 sources)Disorder of endocrine system; Translations: [Endocrine disorder, unspecified]19-11-0745AvtopvcmXrmvm female genital disorders (2 sources)Vaginal discharge; Translations: [Other specified noninflammatory disorders of vagina]75-43-3667NfyrfnnwDgiso gastrointestinal disorders (1 source)Chronic idiopathic constipation; Translations: [Chronic idiopathic constipation]45-40-4242PzruroyJfmdw gastrointestinal disorders (1 source)Other dysphagia; Translations: [Other dysphagia]Onset: 02-03-2024 EpisodicOther gastrointestinal disorders (15 sources)Constipation; Translations: [Constipation, unspecified]Onset: 159839-92-4258OtdhlqrpQirlq nervous system disorders (1 source)Other acute postprocedural pain; Translations: [Post-op pain]Onset: 92-13-7842AfxlfxdmDdptz nutritional; endocrine; and metabolic disorders (15 sources)Obese; Translations: [Obesity, unspecified]Onset: 64-72-4504Bufkony Other nutritional; endocrine; and metabolic disorders (2 sources)Obesity, unspecified; Translations: [Obesity, pediatric, BMI greater than or equal 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]Onset: 23-23-9308GhownftAiush nutritional; endocrine; and metabolic disorders (5 sources)Body mass index 40+ - severely obese; Translations: [Body mass index (BMI) 40.0-44.9, adult]ChronicOther nutritional; endocrine; and metabolic disorders (2 sources)Body mass index (BMI) 40.0-44.9, adultChronicOther nutritional; endocrine; and metabolic disorders (1 source)Other obesity due to excess calories; Translations: [Other obesity due to excess calories]Onset: 56-87-2015UvtqqorXsanc nutritional; endocrine; and metabolic disorders (1 source)Body mass index (BMI) 38.0-38.9, adult; Translations: [Body mass index (BMI) 38.0-38.9, adult]Onset: 42-94-8114JwsiuqwXrmut nutritional; endocrine; and metabolic disorders (1 source)Obesity caused by energy imbalance; Translations: [Other obesity due to excess calories]06-47-5982OleiyidRoquo nutritional; endocrine; and metabolic disorders (1 source)Personal history of other endocrine, nutritional and metabolic disease; Translations: [History of thyroid nodule]Onset: 45-27-0011UtmrwrrfMkoov nutritional; endocrine; and metabolic disorders (1 source)Abnormal weight gainEpisodicOther nutritional; endocrine; and metabolic disorders (4 sources)Weight increased; Translations: [Abnormal weight gain]03-07-2024 EpisodicOther and delivery including normal (12 sources); Translations: [Encounter for supervision of normal , unspecified, unspecified trimester]84-91-1406GndqljqnIajtx screening for suspected conditions (not mental disorders or infectious disease) (20 sources)Thyroid function tests abnormal; Translations: [Other specified abnormal findings of blood chemistry]Onset: 64-42-0214UtgqhiqnLdkyy skin disorders (1 source)Localized swelling, mass and lump, neckEpisodicResidual codes; unclassified (2 sources)Gestation period, 9 weeks; Translations: [9 weeks gestation of ]23-99-9477CjnvjvlgCxodfths codes; unclassified (2 sources)Gestation period, 11 weeks; Translations: [11 weeks gestation of ]17-85-2075RfvmepckYcdprhtu codes; unclassified (2 sources)Gestation period, 15 weeks; Translations: [15 weeks gestation of ]05-86-1462HymqvolkSkdesgka codes; unclassified (2 sources)Gestation period, 19 weeks; Translations: [19 weeks gestation of ]88-94-5747MgdjwhjaLxcisxap codes; unclassified (2 sources)Gestation period, 23 weeks; Translations: [23 weeks gestation of ]26-08-0709VszfxhcfYedffvh disorders (20 sources)Thyroid nodule; Translations: [Nontoxic single thyroid nodule]Onset: 564291-95-6097UiwaqhqKwbthng disorders (6 sources)Disorder of thyroid, unspecified; Translations: [Disorder of thyroid gland]Onset: 646589-42-5025MgshkpubVlaoavlzxugh (1 source)athletes foot spread to hands. skin crackingOnset: 11-23-2023 Unclassified (1 source)Annual ExamOnset: 60-30-2774Eyeajcnvatat (1 source)Acute candidiasis of vulva and vagina; Translations: [Acute candidiasis of vulva and vagina]Onset: 19-47-8664Exilcnufocea (1 source)Generalized Body AchesOnset: 21-47-9444Yznjixjewtpn (1 source)New PatientOnset: 95-76-5722Kuodciuofkly (17 sources)OB RemindersOnset: 148715-13-3907Aowuvhvljusx (2 sources)PM MYCHART PREG BODY CHANGESOnset: 900048-41-1742Cwsmbjapmfjn (1 source)Hx ThyroidectomyOnset: 92-88-7113Dnvgtbaabmbc (1 source)Insect BiteOnset: 49-30-1709Smrkrhitobqn (1 source)Bug BiteOnset: 10-12-2024 Past or Other Problems Problem ClassificationProblemDateDocumented DateEpisodic/ChronicAbdominal pain (13 sources)Indigestion; Translations: [Epigastric pain]Onset: 02-18-2024 59-18-6269OphmwsmzJktfkhon reactions (2 sources)Allergic contact dermatitis; Translations: [Allergic contact dermatitis, unspecified cause]Onset: 993392-23-2387BclrjjzoAbdoq of unknown origin (1 source)FeverOnset: 37-82-4352PadydzbaAebjbixy; including migraine (1 source)Acute headache; Translations: [Acute nonintractable headache, unspecified headache type]76-62-3874JluuvhosDjkuqvhelrf (15 sources)Unspecified hemorrhoids; Translations: [Hemorrhoids]Onset: 286876-01-8084QovntqukEdou disorders (20 sources)Mood disordersOnset: 09-28-2023 Resolved: 670682-27-9897Exanjvw (20 sources)Tinea pedis; Translations: [Candidiasis of vagina]Onset: 07-12-2017 17-38-4521JyvakovzDhgjjo and vomiting (20 sources)Nausea; Translations: [Nausea]Onset: 176658-24-6207Ikwacfxe Other aftercare (2 sources)Postoperative visit; Translations: [Encounter for other specified surgical aftercare]49-93-4866GcefscyjWdxig disorders of stomach and duodenum (16 sources)Delayed gastric emptying; Translations: [Functional dyspepsia]Onset: 568312-66-5618QhmjecneMkxfg disorders of stomach and duodenum (15 sources)Disorder of function of stomach; Translations: [Other diseases of stomach and duodenum]Onset: 237420-37-5035CdgnnyayFvviu disorders of stomach and duodenum (13 sources)Gastroparesis syndrome; Translations: [Gastroparesis]Onset: 885962-89-0270HnssodnlXykqe disorders of stomach and duodenum (1 source)Gastroparesis; Translations: [Gastroparesis]Onset: 68-52-4535Lyuiclxo Other female genital disorders (18 sources)Female genital organ symptoms; Translations: [Unspecified condition associated with female genital organs and menstrual cycle]Onset: 02-18-2024 41-54-3112MufwbbbxDfmyc gastrointestinal disorders (15 sources)Dysphagia; Translations: [Dysphagia, pharyngoesophageal phase]Onset: 574583-90-2663UufujhueKzyyx gastrointestinal disorders (2 sources)Esophageal dysphagia; Translations: [Other dysphagia]02-03-2024 EpisodicOther lower respiratory disease (1 source)CoughOnset: 13-26-0849YvaeszuqGlfte nervous system disorders (20 sources)History of otitis media; Translations: [Personal history of other diseases of the nervous system and sense organs]Onset: EpisodicOther nutritional; endocrine; and metabolic disorders (17 sources)H/O: thyroid disorder; Translations: [Personal history of other endocrine, nutritional and metabolic disease]Onset: 57-76-6533DwmtfjwiFzfoj nutritional; endocrine; and metabolic disorders (2 sources)Body mass index (BMI) pediatric, greater than or equal 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; Translations: [Obesity, pediatric, BMI greater than or equal 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]Onset: 56-96-3674HlsvmkssHmyjz nutritional; endocrine; and metabolic disorders (13 sources)Unintentional weight loss; Translations: [Abnormal weight loss] Onset: 925881-57-5356HywzuvzrFzbyi skin disorders (1 source)Cystic acne; Translations: [Acne vulgaris]56-07-0494DjawlfepFbief skin disorders (13 sources)Ingrowing toenail; Translations: [Ingrowing nail]Onset: 02-18-2024 04-64-7174RerxjmrkQqmuv upper respiratory disease (1 source)Pain in throatOnset: 56-96-8040VtccexfoDklsp upper respiratory disease (1 source)Nasal congestionOnset: 34-15-0292JwjvwdgsJzpzz upper respiratory disease (20 sources)Nasal obstruction; Translations: [Other specified disorders of nose and nasal sinuses]Onset: 680461-13-2850CpsnnhkySgqwj upper respiratory disease (20 sources)Bleeding from nose; Translations: [Epistaxis]Onset: 07-12-2017 38-87-5199KvuutxjkRvnwf upper respiratory infections (2 sources)Acute frontal sinusitis, unspecified; Translations: [Acute frontal sinusitis]Onset: 129829-42-8674DgxcouwtNcynqx media and related conditions (20 sources)Dysfunction of bilateral eustachian tubes; Translations: [Other specified disorders of Eustachian tube, bilateral]Onset: EpisodicResidual codes; unclassified (13 sources)FH: Thyroid disorder; Translations: [Family history of other endocrine, nutritional and metabolic diseases]Onset: EpisodicResidual codes; unclassified (1 source)High risk heterosexual behavior; Translations: [High risk heterosexual behavior]Onset: 39-70-9607GvlmvguwNbllaviu codes; unclassified (1 source)Other general symptoms and signs; Translations: [Other general symptoms and signs]Onset: 04-55-8703ZdqyklriYdakbvso codes; unclassified (2 sources)History of laparoscopy; Translations: [Other specified postprocedural states]80-98-6751QkkpuuhfXkphudqw codes; unclassified (1 source)Viral syndrome; Translations: [Other general symptoms and signs] 90-35-3875OzhqxdorUuletqnu codes; unclassified (1 source)High risk heterosexual behavior; Translations: [High risk heterosexual behavior]25-18-5668Cicupeiy Results Test NameValueInterpretationReference RangeFacilityUrinalysis macro (dipstick) panel (U)on 41-79-8517Enevnhsdl, UANegativeNegative - 4(70) +++ mg/dLNOMS HealthcareBlood, UANegativeNegative - 50 Joshua/mcLNOMS HealthcareClarity, UAClear NOMS HealthcareColor, UAYellowNOMS HealthcareGlucose, UANegativeNegative - 1999(110) ++++ mg/dLNOMS HealthcareInterpretation and review of laboratory resultsNormalNOMS HealthcareKetones, UANegativeNegative - 160(16) ++++ mg/dLNOMS HealthcareLeukocytes, UANegativeNegative - 500+++ Diego/mcLNOMS HealthcareNitrite, UANegativeNegative - PositiveNOMS HealthcarepH, UA6.05 - 9N[facility] Protein, UANegativeNegative - 1999(20) ++++ mg/dLNOMS HealthcareSpec Grav, UA 1.0151 - 1.03NOMS HealthcareUrobilinogen, UA1.00.2 - 12 mg/dLNOMS HealthcareNOMS HealthcareUrinalysis macro (dipstick) panel (U)on 46-85-7265Wmqyuwgxq, UA NegativeNegative - 4(70) +++ mg/dLNOMS HealthcareBlood, UANegativeNegative - 50 Joshua/mcLNOMS HealthcareClarity, UAClearNOMS HealthcareColor, UAYellowNOMS HealthcareGlucose, UANegativeNegative - 1999(110) ++++ mg/dLNOMS Healthcare Interpretation and review of laboratory resultsAbnormalNOMS HealthcareKetones, UANegativeNegative - 160(16) ++++ mg/dLNOMS HealthcareLeukocytes, UATrace Negative - 500+++ Diego/mcLNOMS HealthcareNitrite, UANegativeNegative - Positive NOMS HealthcarepH, UA6.05 - 9NOMS HealthcareProtein, UANegativeNegative - 1999(20) ++++ mg/dLNOMS HealthcareSpec Grav, UA1.0201 - 1.03[facility] Urobilinogen, UA0.20.2 - 12 mg/dLNOMS HealthcareNOMS HealthcareUrinalysis macro (dipstick) panel (U)on 12-91-5677Hioaokkzp, UANegativeNegative - 4(70) +++ mg/dL NOMS HealthcareBlood, UANegativeNegative - 50 Joshua/mcLNOMS HealthcareClarity, UA ClearNOMS HealthcareColor, UAYellowNODE HealthcareGlucose, UANegativeNegative - 1999(110) ++++ mg/dLNODE HealthcareInterpretation and review of laboratory resultsNormalNODE HealthcareKetones, UANegativeNegative - 160(16) ++++ mg/dLNODE HealthcareLeukocytes, UANegativeNegative - 500+++ Diego/mcLNOMS HealthcareNitrite, UANegativeNegative - PositiveNOMS HealthcarepH, UA7.55 - 9[facility] Protein, UANegativeNegative - 1999(20) ++++ mg/dLNODE HealthcareSpec Grav, UA 1.011 - 1.03NODE HealthcareUrobilinogen, UA1.00.2 - 12 mg/dLNODE HealthcareNODE HealthcareRECURRENT VAGINITIS (HTRX)on 49-25-6842WAPNBNAKD CYXPEEI24.556Abnormal NOMS HealthcareATOPOBIUM VAGINAEDetectedAbnormalNODE HealthcareBVAB 2,3 (BACTERIAL VAGINOSIS ASSOCIATED BACTERIA 2, 3); MOBILUNCUS SPP24.03AbnormalNODE HealthcareBVAB 2,3 (BACTERIAL VAGINOSIS ASSOCIATED BACTERIA 2, 3); MOBILUNCUS SPPDetectedAbnormalNODE HealthcareCANDIDA ALBICANS, PARAPSILOSIS, TROPICALIS0 NOMS HealthcareCANDIDA ALBICANS, PARAPSILOSIS, TROPICALISNot detectedNOMS HealthcareCANDIDA OBGQWFKU1BSAH HealthcareCANDIDA GLABRATANot detectedNOMS HealthcareCANDIDA UQBUYH3WJHA HealthcareCANDIDA KRUSEINot detectedNOMS HealthcareCHLAMYDIA EZNSVYLYBMR3DBIB HealthcareCHLAMYDIA TRACHOMATISNot detected NOMS HealthcareGARDNERELLA MAXURVCCY7FHUE HealthcareGARDNERELLA VAGINALISNot detectedNOMS HealthcareInterpretation and review of laboratory resultsAbnormal NOMS HealthcareMEGASPHAERA (TYPES 1, 2)0NOMS HealthcareMEGASPHAERA (TYPES 1, 2) Not detectedNOMS HealthcareMYCOPLASMA OQRJSKWJIT9MEVT HealthcareMYCOPLASMA GENITALIUMNot detectedNOMS HealthcareNEISSERIA HZPBQYJWOXE3WKSF Healthcare NEISSERIA GONORRHOEAENot detectedNOMS HealthcareTRICHOMONAS QGXIOXEIA0UFSD HealthcareTRICHOMONAS VAGINALISNot detectedNOMS HealthcareNOMS Healthcare Urinalysis macro (dipstick) panel (U)on 16-50-0792Mslvaztyx, UANegativeNegative - 4(70) +++ mg/dLNOMS HealthcareBlood, UANegativeNegative - 50 Joshua/mcLNOMS HealthcareClarity, UAClearNOMS HealthcareColor, UAYellowNOMS HealthcareGlucose, UANegativeNegative - 2000(110) ++++ mg/dLNOMS HealthcareInterpretation and review of laboratory resultsNormalNOMS HealthcareKetones, UANegativeNegative - 160(16) ++++ mg/dLNOMS HealthcareLeukocytes, UANegativeNegative - 500+++ Diego/mcL NOMS HealthcareNitrite, UANegativeNegative - PositiveNOMS HealthcarepH, UA7.55 - 9NOMS HealthcareProtein, UANegativeNegative - 1999(20) ++++ mg/dLNOMS Healthcare Spec Grav, UA1.011 - 1.03NOMS HealthcareUrobilinogen, UA1.00.2 - 12 mg/dLNOMS HealthcareNOMS HealthcareTSHon 06-71-6404Gomiknz Stimulating (3Rd Generation) Hormone/ Tsh42.135[facility] SystemProPromedica Memorial Hospital SystemUrinalysis macro (dipstick) panel (U)on 26-86-5446Bhpfnwiwt, UANegativeNegative - 4(70) +++ mg/dL NOMS HealthcareBlood, UANegativeNegative - 50 Joshua/mcLNOMS HealthcareClarity, UA ClearNOMS HealthcareColor, UAYellowNOMS HealthcareGlucose, UANegativeNegative - 1999(110) ++++ mg/dLNOMS HealthcareInterpretation and review of laboratory resultsAbnormalNOMS HealthcareKetones, UANegativeNegative - 160(16) ++++ mg/dL NOMS HealthcareLeukocytes, UAPositiveNegative - 500+++ Diego/mcLNOMS Healthcare Nitrite, UANegativeNegative - PositiveNOMS HealthcarepH, UA5.55 - 9NOMS HealthcareProtein, UANegativeNegative - 2000(20) ++++ mg/dLNOMS HealthcareSpec Grav, UA1.0151 - 1.03NOMS HealthcareUrobilinogen, UA1.00.2 - 12 mg/dLNOMS HealthcareNOMS HealthcareT4, freeon 12-53-6522S9 Free Free T40.81ProPromedica Memorial Hospital SystemProPromedica Memorial Hospital SystemUrine Cultureon 06-28-1128Gkxtoezd identified Cx Nom (U)50,000 colonies/ml mixed bacterial skin contaminants 2 Days PERFORMED BY: [facility] [address] [place] [address] PATHOLOGIST PASTEURIZING SUPERVISOR BRIA LOUIS M.D.NormalHca Florida West Marion Hospital Physician GroupComment on above: Performed By: #### CUU #### [facility] [address] [id number] USABOX TESTon 48-44-7701BPB TEST SENT OUTSevier Valley Hospital QUS6UUJSNLENDSevier Valley HospitalBOXColumbia Regional HospitalCLINISYNCCBC without diff Ordered By: Ting Forte on 97-73-2897Rarczfiprj (Bld) [Volume fraction]39.7 %[facility] Medical CenterHemoglobin (Bld) [Mass/Vol]13.4 g/dLCincinnati Children's Hospital Medical CenterRb Mcv (Fl) By Automated Count84.8[facility] Medical CenterDrug Screen, Urineon 54-10-4544Kskozcpgrsm/MethamphetamineNegativeSouth[facility] System BarbituratesNegativeOhioHealth [facility] Health SystemBenzodiazepinesNegativeSouth[facility] Medical Center SystemCocaine MetaboliteNegativeSouthview Medical Center SystemEcstasyNegative [facility] SystemMethadoneNegativeSouthview Medical Center SystemOpiatesNegative [facility] SystemOxycodoneNegativeSouthview Medical Center SystemPhencyclidine NegativeCincinnati Children's Hospital Medical CenterTh Marijuana, UrineNegativeSouthview Medical Center SystemHBV surface Ag IA Qlon 03-16-6874Dbmuvhjeb B Surface AntigenNegative [facility] Medical CenterHIV 1+2 Ab+HIV1 p24 Ag IA Qlon 46-32-9846PUQ 1&2 AB/AG Non-ReactiveCincinnati Children's Hospital Medical CenterHemoglobin A1con 88-56-2077KlU9t (Bld) [Mass fraction]4.9 %4.0 - 6.0 %[facility] SystemNo Panel Informationon 00-87-3758NUYCColumbia Regional HospitalRubella IGG immune statuson 63-97-8516Djzzqqc immune IgG4.26ProPromedica Memorial Hospital SystemTSHon 03-48-5796Lkjczgc Stimulating (3Rd Generation) Hormone/ Tsh50.067ProPromedica Memorial Hospital SystemType and screenon 90-16-5611Zks/Rh(D)PositiveProThe Christ HospitalHCG ( test) Ql (U)on 16-20-9169Qbvpfejqhtpnop and review of laboratory resultsAbnormalNODE Healthcare Preg Test, UrPositiveNegativeNOMS HealthcareNOMS HealthcareUrinalysis macro (dipstick) panel (U)on 94-69-2925Asebewqeq, UANegativeNegative - 4(70) +++ mg/dL NOMS HealthcareBlood, UANegativeNegative - 50 Joshua/mcLNOMS HealthcareClarity, UA ClearNOMS HealthcareColor, UAYellowNOMS HealthcareGlucose, UANegativeNegative - 2000(110) ++++ mg/dLNOMS HealthcareInterpretation and review of laboratory resultsNormalNOMS HealthcareKetones, UANegativeNegative - 160(16) ++++ mg/dLNOMS HealthcareLeukocytes, UANegativeNegative - 500+++ Diego/mcLNOMS HealthcareNitrite, UANegativeNegative - PositiveNOMS HealthcarepH, UA6.55 - 9[facility] Protein, UANegativeNegative - 2000(20) ++++ mg/dLNOMS HealthcareSpec Grav, UA 1.0251 - 1.03NOMS HealthcareUrobilinogen, UA1.00.2 - 12 mg/dLNOMS HealthcareNOMS HealthcareUS OB TRANSVAGINALon 50-72-7040AX OB TRANSVAGINALFINDINGS: A single intrauterine gestational sac is present. [...] 21, 2025. TRANSCRIBED BY: ELECTRONICALLY SIGNED BY: Isha Stoner AvailableComment on above:Order Comment: US OB TRANSVAGINAL Patient's last menstrual period was 10/02/2024.HCG ( test) Ql (U)on 48-71-7748Ffndxechxrihip and review of laboratory resultsAbnoKensington Hospital Preg Test, UrPositiveNegativeNOResearch Medical Center-Brookside [facility] HealthcareUrinalysis macro (dipstick) panel (U)on 73-08-3371Xnuwbjtdx, UANegativeNegative - 4(70) +++ mg/dL NOMS HealthcareBlood, UANegativeNegative - 50 Joshua/mcLNOMS HealthcareClarity, UA ClearNOMS HealthcareColor, UAYellowNOMS HealthcareGlucose, UANegativeNegative - 2000(110) ++++ mg/dLNODE HealthcareInterpretation and review of laboratory resultsNormWilson Street Hospital HealthcareKetones, UANegativeNegative - 160(16) ++++ mg/dLNODE HealthcareLeukocytes, UANegativeNegative - 500+++ Diego/mcLNODE HealthcareNitrite, UANegativeNegative - PositiveNOMS HealthcarepH, UA65 - 9NOMS HealthcareProtein, UANegativeNegative - 2000(20) ++++ mg/dLNOMS HealthcareSpec Grav, UA1.011 - 1.03 NOMS HealthcareUrobilinogen, UA1.00.2 - 12 mg/dLNOMS HealthcareNODE Healthcare TBH PREG QUANT HCGon 06-85-0688WGQ EDRPENUZPUCS0263pKV/mLNOMS HealthcareComment on above:5-50 0.2-1 WEEK 50-500 1-2 WEEKS 100-5,000 2-3 WEEKS 500-10,000 3-4 WEEKS 1,000-50,000 4-5 WEEKS 10,000-100,000 5-6 WEEKS 15,000-200,000 6-8 WEEKS 10,000-100,000 2-3 MONTHS CLINISYNCNOPhelps HealthALL THYROID STIM HORMONEon 36-30-2076Zrkkphmmsizwow and review of laboratory resultsAbTrinity Health Livonia Qn12.103 m[IU]/LHighNODE HealthcareNo Panel Informationon 05-57-0557PPYSLWUMABGLZ HealthcareTB PREG QUANT HCGon 61-18-0992XKE DRZOBOTOTTTH051nBL/mLNOMS HealthcareComment on above: 5-50 0.2-1 WEEK 50-500 1-2 WEEKS 100-5,000 2-3 WEEKS 500-10,000 3-4 WEEKS 1,000-50,000 4-5 WEEKS 10,000-100,000 5-6 WEEKS 15,000-200,000 6-8 WEEKS 10,000-100,000 2-3 MONTHS FREE T4on 40-79-7753Jhyv T4 [Mass/Vol]0.93 ng/dLNormal0.61-1.60[facility] - AndersonComment on above:Performed By: #### 3024-7 #### [facility] ([id number]) [address] [place] [address], [address] [place], [place] [address]DTQql 30-24-5344HCV Qn11.47 m[IU]/[facility] TSH Qnon 63-37-6774Mmgtfxipqrdusd and review of laboratory resultsAbnormal [facility] NortheastTSH11.47 uIU/mLHigh0.49-4.67 [facility] - AndersonComment on above:Performed By: #### 3016-3 #### [facility] ([id number]) [address] [place] [address], [address] [place], [place] [address]CBY PREG QUANT HCGon 29-18-9981GMF QUANTITATIVE<1mIU/mLNOMS HealthcareComment on above:5-50 0.2-1 WEEK 50-500 1-2 WEEKS 100-5,000 2-3 WEEKS 500-10,000 3-4 WEEKS 1,000-50,000 4-5 WEEKS 10,000-100,000 5-6 WEEKS 15,000-200,000 6-8 WEEKS 10,000-100,000 2-3 MONTHS CLINISYNCNOMS HealthcareTBH PREG QUANT HCGon 84-92-5739VYR QUANTITATIVE<1mIU/mL NOMS HealthcareComment on above:5-50 0.2-1 WEEK 50-500 1-2 WEEKS 100-5,000 2-3 WEEKS 500-10,000 3-4 WEEKS 1,000-50,000 4-5 WEEKS 10,000-100,000 5-6 WEEKS 15,000-200,000 6-8 WEEKS 10,000-100,000 2-3 MONTHS CLINISYNCNOMS HealthcareTBH PREG QUANT HCGon 49-62-4563FMA QUANTITATIVE<1mIU/mL NOMS HealthcareComment on above:5-50 0.2-1 WEEK 50-500 1-2 WEEKS 100-5,000 2-3 WEEKS 500-10,000 3-4 WEEKS 1,000-50,000 4-5 WEEKS 10,000-100,000 5-6 WEEKS 15,000-200,000 6-8 WEEKS 10,000-100,000 2-3 MONTHS CLINISYNCNOMS HealthcareTB PREG QUANT HCGon 51-30-3586NWJ QUANTITATIVE<1mIU/mL NOMS HealthcareComment on above:5-50 0.2-1 WEEK 50-500 1-2 WEEKS 100-5,000 2-3 WEEKS 500-10,000 3-4 WEEKS 1,000-50,000 4-5 WEEKS 10,000-100,000 5-6 WEEKS 15,000-200,000 6-8 WEEKS 10,000-100,000 2-3 MONTHS CLINISYCTNODE HealthcareHCG,Urineon 13-07-8887Bhja HCG ( test) Ql (U) NegativeNormHCA Florida Capital Hospital Physician GroupComment on above:Result Comment: PERFORMED BY: [place] [address] PATHOLOGIST PASTEURIZING SUPERVISOR MAIK BARNES M.D.Performed By: #### UHCG #### [address] gastric emptying studyon 54-41-6950MW gastric emptying studyFAIRFIELD [place] [address] Nuclear Medicine Report Signed Patient: Sheyla Lea I MR#: [id number] : 2005 Acct:[id number] Age/Sex: 18 / F ADM Date: 03/03/24 Loc: [place] Room: [facility] Attending [facility]: Brooke Conde DO Copies to: Brooke Conde, DO Salinas Adams II, MD Ordering Provider: Brooke Conde DO Date of Service: 03/03/24 ND/ND gastric emptying study: K31.84 - Gastroparesis ND gastric emptying study 03/03/2024 6:41 AM SIGNS [...] material is retained within the gastric lumen. ND/ND gastric emptying study IMPRESSION: Normal gastric emptying study. Impression dictated by: Salinas Adams M.D.03/03/2024 1:04 PM Dictation Location: [place] [address] Transcribed By: [facility] 03/03/24 1304 Dictated By: Salinas Adams II, MD 03/03/24 1302 Signed By: 03/03/24 1304[facility] Physician GroupFREE T4on 40-37-2137Pqgs T4 [Mass/Vol]1.48 ng/dLNormal0.61-1.60ProParkview Health Bryan HospitalComment on above: Performed By: #### 3016-3, 3024-7 #### [facility] ([id number]) [address], [address] [place], [place] [address]Bwkg T4 [Mass/Vol]on 48-00-1356UqjZubebwTriHealthT4, freeon 22-29-1432Xbcn T4 [Mass/Vol]1.48 ng/dL0.61 - 1.60 ng/dLCincinnati Children's Hospital Medical Center TSHon 23-05-5568MGT Qn0.01 m[IU]/LLowProFormerly [facility] Qnon 02-18-2024 Interpretation and review of laboratory resultsAbnormalCincinnati Children's Hospital [facility] Center ProMGalion Community HospitalTSH0.01 uIU/mLLow0.49-4.67[facility] Comment on above:Performed By: #### 3016-3, 3024-7 #### [facility] ([id number]) [address], [address] [place], [place] [address]KKM CBC WITH AUTO DIFFon 11-77-4001FFIOCPUZN ABSOLUTE AUTO0.0 NOMS HealthcareBasophils/100 WBC (Bld)0.8 %0.2 - 2.0 %[facility] Eosinophils/100 WBC (Bld)1.7 %0.9 - 7.0 %NOMS HealthcareErythrocyte distribution width (RBC) [Ratio]13.2 %11.0 - 15.0 %NOMS HealthcareHematocrit (Bld) [Volume fraction]40.6 %36.0 - 48.0 %NOM HealthcareHemoglobin (Bld) [Mass/Vol]13.6 g/dL 12.0 - 16.0 g/dLNOPhelps HealthIMMATURE GRANULOCYTES ABS AUTO0.01[facility] Immature granulocytes/100 WBC (Bld)0.2 %0.0 - 0.5 %NOMS HealthcareLYMPHOCYTES ABSOLUTE AUTO1.9NOMS HealthcareLymphocytes/100 WBC (Bld)39.0 %20.5 - 60.0 %NOMHawthorn Children'S Psychiatric HospitalMCH (RBC) [Entitic mass]27.5 pg26.7 - 34.0 pgNOPhelps HealthMCHC (RBC) [Mass/Vol]33.5 g/dL29.9 - 35.2 g/dLNOPhelps HealthMCV (RBC) [Entitic vol]82.0 fL 81.0 - 99.0 fLNODE HealthcareMONOCYTES ABSOLUTE AUTO0.5[facility] Monocytes/100 WBC (Bld)10.4 %1.7 - 12.0 %NOMS HealthcareNEUTROPHILS ABSOLUTE AUTO2.3NOMS HealthcareNeutrophils/100 WBC (Bld)47.9 %43.0 - 75.0 %NOMS HealthcarePlatelet mean volume (Bld) [Entitic vol]10.4 fL9.5 - 13.5 fLNOMS HealthcareTBH EO #0.1NOMS HealthcareTBH [id number] HealthcareTBH RBC4.95NOMS HealthcareTBH WBC4.8NOMS HealthcareCLINISYNCNOMS HealthcareLon 01-14-2024 Specimen: Received: 01/18/24 Status: VERO Cheathamchristina Num: [id number] Spec Type: Cytology Subm Dr: Gerardo Meredith Tissues: A ASCITES (PELVIC FLUID) Procedures: HE/2, Gross/Micro L4, Cyto Prepstain, PAPSTN Age/ Patient Sex Location Account Attending Physician Sheyla Lea I 18/F LABELL [id number] Gerardo Meredith SPEC NUM: [id number] RECD: 01/18/24 STATUS: VERO CHEATHAMChristina NUM: [id number] JAREK: 01/14/[address]: Gerardo Meredith ENTERED: 01/18/[address] [facility] [address]: Anoop,Lab SPEC TYPE: Cytology DEPT: [facility] ENTERED BY: [id number] RECV BY: [id number] ORDERED: HE/2, Gross/Micro L4, Cyto Prepstain, PAPSTN ORDERED: HE/2, Gross/Micro L4, Cyto Prepstain, PAPSTN Pathological Diagnosis Pelvic fluid cytology: Negative for malignant cells. Gross Description Received fresh is 10 ml yellow clear unfixed fluid for cytology said to have been obtained as pelvic fluid. ThinPrep and cell block preparations are prepared for microscopic examination. ([place]/ga) CPT Codes 06698 Specimen: [id number] Received: 01/18/24-1217 Status: VERO He Num: [id number] Spec Type: Cytology Subm Dr: Gerardo Meredith Tissues: A ASCITES (PELVIC FLUID) Procedures: HE/2, Gross/Micro L4, Cyto Prepstain, PAPSTN Patient: Sheyla Lea I [id number] (Continued) Signed (signature on file) Cleo Beckford MD 01/19/[address] [place] [address] Physician GroupECG 12-LEADon [id number] [address] Electrocardiograph Report Signed Patient: SHEYLA LEA MR#: [id number] : 2005 Acct:[id number] Age/Sex: 18 / F ADM Date: 12/31/23 Loc: PST Attending Dr: Gerardo Meredith D.O. Ordering Physician: Gerardo Meredith D.O. 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 Signed By: 12/31/231834 DD/ 34 TD/TT: Occ Therapist:KYLEHRadiologarya, Radiologist, - 12/31/2023 [place] [address] Electrocardiograph Report Signed Patient: SHEYLA LEA MR#: [id number] : 2005 Acct:[id number] Age/Sex: 18 / F ADM Date: 12/31/23 Loc: PST Attending Dr: Gerardo Meredith D.O. Ordering Physician: Gerardo Meredith D.O. Date of Service: 12/31/23 Procedure(s): ECG 12 lead Accession Number(s): [id number] cc: 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 Signed By: 12/31/231834 DD/ 1035 TD/TT: Occ Therapist: EUGENIA HealthcareRadiology Study observation (narrative)[facility] 12-LEAD Ordered By: Radiologist Radiology on 04-12-1552JOVM Healthcare Work Phone: US PELVIS W/ TRANSVAGINALon [id number], [place] [address] Ultrasound Report Signed Patient: SHEYLA LEA MR#: [id number] : 2005 Acct:[id number] Age/Sex: 18 / F ADM Date: 10/29/23 Loc: US Attending Dr: Gerardo Meredith D.O. Ordering Physician: Gerardo Meredith D.O. Date of Service: 10/29/23 Procedure(s): US pelvis w/ transvaginal Accession Number(s): [id number] cc: Gerardo Meredith D.O.; ANITA ELMORE [place] [address] Patient Name: SHEYLA LEA MRN: [id number] date: 2005 Sex: F Assigned Patient Location: US Current Patient Location: Accession/Order Number: [id number] Exam Date: 10/29/2023 09:03 Report Date: 11/01/2023 06:49 At the request of: GERARDO MEREDITH Procedure: US pelvis w/ transvaginal EXAMINATION: [...] account for patient's symptoms. Electronically authenticated by: NICOLASA WRAY Date: 11/01/2023 06:49 Dictated By: Nicolasa Wray M.D. Signed By: 11/01/2352 DD/ TD/TT: Occ Therapist:TBHRadiology, Radiologist, MD - 11/01/2023 [place] [address] Ultrasound Report Signed Patient: SHEYLA LEA MR#: [id number] : 2005 Acct:[id number] Age/Sex: 18 / F ADM Date: 10/29/23 Loc: US Attending Dr: Gerardo Meredith D.O. Ordering Physician: Gerardo Meredith D.O. Date of Service: 10/29/23 Procedure(s): US pelvis w/ transvaginal Accession Number(s): [id number] cc: Gerardo Meredith D.O.; ANITA ELMORE [place] [id number] Patient Name: SHEYLA LEA MRN: [id number] date: 2005 Sex: F Assigned Patient Location: US Current Patient Location: Accession/Order Number: [id number] Exam Date: 10/29/2023 09:03 Report Date: 11/01/2023 06:49 At the request of: GERARDO MEREDITH Procedure: US pelvis w/ transvaginal EXAMINATION: [...] account for patient's symptoms. Electronically authenticated by: NICOLASA WRAY Date: 11/01/2023 06:49 Dictated By: Nicolasa Wray M.D. Signed By: 11/01/2352 DD/ TD/TT: Occ Therapist: EUGENIA HealthcareRadiology Study observation (narrative)NOMS HealthcareUS PELVIS W/ TRANSVAGINALOrdered By: Radiologist Radiology on 93-47-4651HFIF Healthcare Work Phone: chlamydia/GC by PCR urineon 53-66-4719Ibpcqtrit sp DNA SWAPNA+probe Ql (Unsp spec)NegativeNegative^NegativeOhioHealth Southeastern Medical Center Health SystemComment on above: Chlamydia trachomatis not detected by nucleic acid amplification. This does not exclude the possibility of infection because results are dependent on adequate specimen collection. N. gonorrhoeae DNA SWAPNA+probe Ql (Unsp spec)NegativeNegative^NegativeProRiverview Regional Medical Center Health SystemComment on above: Neisseria gonorrhoeae not detected by nucleic acid amplification. This does not exclude the possibility of infection because results are dependent on adequate specimen collection. Specimen source Nom (Unsp spec)CLEAN CATCH MIDSTREAM URINEProMedica Health SystemProMedica Health SystemComprehensive metabolic panelon 41-61-5612Enyiqpe [Mass/Vol]4.4 g/dL3.2 - 5.3 g/dLProMedica Health SystemALP [Catalytic activity/Vol]64 U/L39 - 130 U/LProMedica Health SystemALT No additional P-5'-P [Catalytic activity/Vol]18 U/L0 - 31 U/LProMedica Health SystemAnion gap [Moles/Vol]10 mmol/L5 - 15 mmol/LProMedica Health SystemAST [Catalytic activity/Vol]16 U/L0 - 41 U/[facility] SystemBilirubin [Mass/Vol]0.4 mg/dL0.3 - 1.2 mg/dLCincinnati Children's Hospital Medical CenterCalcium [Mass/Vol]9.8 mg/dL8.5 - 10.5 mg/dLCincinnati Children's Hospital Medical CenterChloride [Moles/Vol]102 mmol/L98 - 109 mmol/L [facility] CenterCO2 [Moles/Vol]25 mmol/L22 - 32 mmol/[facility] SystemCreatinine [Mass/Vol]0.65 mg/dL0.40 - 1.00 mg/dLCincinnati Children's Hospital Medical Center Comment on above:METHOD TRACEABLE TO [facility] STANDARDeGFR (CKD-EPI)non-race dependent- [facility] WilliamsburgComment on above: Reported eGFR is based on the CKD-EPI 2020 equation that does not use a race coefficient. Glucose [Mass/Vol]80 mg/dL65 - 99 mg/dLCincinnati Children's Hospital Medical CenterPotassium [Moles/Vol]4.1 mmol/L3.5 - 5.0 mmol/[facility] SystemProtein [Mass/Vol] 7.3 g/dL6.0 - 8.0 g/dLDuke University Hospitalodium [Moles/Vol]137 mmol/L134 - 146 mmol/[facility] SystemUrea nitrogen [Mass/Vol]12 mg/dL5 - 23 mg/dL [facility] Medical CenterFree T4 [Mass/Vol]on 77-03-9764XwlUspmgzTriHealth Lipid 1996 panelon 21-94-4164Cmazjkxoumw [Mass/Vol]157 mg/dL150 - 200 mg/dL [facility] CenterCholesterol in HDL [Mass/Vol]56 mg/dL39 - PINF mg/dL [facility] Medical CenterComment on above: HDL <40 mg/dL - High Risk HDL > or = 40mg/dL- Desirable HDL >60 mg/dL - Negative Risk Cholesterol in LDL [Mass/Vol]85 mg/dLNINF - 130 mg/dLCincinnati Children's Hospital Medical Center Comment on above: LDL <100 mg/dL - Desirable LDL >160 mg/dL - High Risk Cholesterol in VLDL [Mass/Vol]16 mg/dL0 - 30 mg/dLCincinnati Children's Hospital Medical Center Cholesterol.total/Cholesterol in HDL [Mass ratio]2.8 {ratio}1.0 - 5.0C[facility] Medical CenterTriglyceride [Mass/Vol]80 mg/dL27 - 150 mg/dLCincinnati Children's Hospital Medical CenterNo Panel Informationon 11-44-5553XdsDxryqpTriHealthT4, freeon 91-75-3126Bubc T4 [Mass/Vol]0.73 ng/dL0.61 - 1.60 ng/dLCincinnati Children's Hospital Medical Center TSH with Reflexon 28-13-5012Vqlurxxtjeswxj and review of laboratory results AbnormalCincinnati Children's Hospital Medical CenterTSH Qn22.23 m[IU]/LHighEncompass HealthTrichomonas by PCRon 11-92-0505Ncipdexc source Nom (Body fld)CLEAN CATCH MIDSTREAM URINECincinnati Children's Hospital Medical CenterT. vaginalis rRNA Probe Ql (Genital specimen)Not detectedNot Detected^Not DetectedCincinnati Children's Hospital Medical Center Comment on above:Trichomonas vaginalis not detected NOTE Assay methodology is nucleic acid amplification by real-time PCR for detection of Trichomonas vaginalis DNA performed on [employer] System. [facility] Medical CenterPOCT Influenza A/Influenza B/SARS-COV-2 Veritoron 71-86-6213Cyongisv Poct Influenza A AntigenNegativeCincinnati Children's Hospital Medical Center External Poct Influenza B AntigenNegativeDuke University HospitalARS-CoV-2 (COVID-19) Ag IA.rapid Ql (Resp)NegativeJefferson Health NortheastCNOVon 66-87-8595VZLHJdukkz Visit (OTMNCA) SHEYLA LEA ([id number]) 3 F Date Time Provider Department 09/09/23 [...] 0 THYROID STIMULATING HORMONE [SQTSH] Order #: [id number] FUTURE PTH INTACT [SQPTHI] Order #: [id number] FU (more content not included)...Normal [facility] metabolic 2000 panelon 72-45-4114Ezjig gap [Moles/Vol]12 mmol/LNormal9-18[facility] on above:Order Comment: Specimen Type: BLOOD SPECIMENOrdering Facility: [facility] Address:[address] [place], [place] [address]Performed By: #### 2777- 1, 20076-5, ####[facility] LABCLIA [id number] [place] [address] [place] OF AMERICACalcium [Mass/Vol]8.7 mg/dLNormal8.5-10.2CParma Community General Hospital on above: Order Comment: Specimen Type: BLOOD SPECIMENOrdering Facility: [facility] Address:[address] [place], [place] [address]Performed By: #### 2777- 1, 80074-5, ####[facility] LABCLIA [id number] [place] [address] [place] AMERICAChloride [Moles/Vol]106 mmol/NAuwl28-101GomodxhcbACMC [facility] System [facility] on above:Order Comment: Specimen Type: BLOOD SPECIMENOrdering Facility: [facility] Address:[address] [place], [place] [address]Performed By: #### 2777- 1, 39887-7, ####[facility] LABCLIA [id number] [address]EDES[address] [place], [place] [address] [place] OF AMERICACO2 [Moles/Vol] 21 mmol/DNhz29-20EhvncwvwhACMC Healthcare System [facility] on above:Order Comment: Specimen Type: BLOOD SPECIMENOrdering Facility: [facility] Address:[address] [place], [place] [address]Performed By: #### 2777-1, 33029-3, ####[facility] LABCLIA [id number] [place] [address] [place] AMERICACreatinine [Mass/Vol]0.59 mg/dL Normal0.58-0.96[facility] on above:Order Comment: Specimen Type: BLOOD SPECIMENOrdering Facility: [facility] Address:[address] [place], [place] [address]Performed By: #### 2777-1, 43278-6, ####[facility] LABCLIA [id number] OF [facility] HOSPITALCreatinine and Glomerular filtration rate.predicted panel (S/P/Bld)133 mL/min/1.73m???Normal>=60[facility] on above:Order Comment: Specimen Type: BLOOD SPECIMENOrdering Facility: [facility] Address:[address] [place], [place] [address]Result Comment: Estimated Glomerular Filtration Rate (eGFR) is calculated using the 2020 CKD-EPI creatinine equation. This equation utilizes serum creatinine, sex, and age as parameters. The creatinine assay has traceable calibration to isotope dilution-mass spectrometry. Refer to KDIGO guidelines for clinical interpretation. In patients with unstable renal function, e.g. those with acute kidney injury, the eGFR may not accurately reflect actual GFR.Performed By: #### 2777-1, 82649-9, ####[facility] LABCLIA [id number] [place] [address] [place] OF AMERICAGlucose [Mass/Vol]85 mg/dDTlhdnj34-21NyxoawacaACMC Healthcare System [facility] on above:Order Comment: Specimen Type: BLOOD SPECIMENOrdering Facility: [facility] Address:[facility] [place], [place] [address]Result Comment: The Stateless Diabetes Association (ADA) provides guidance for cutoff [...] Standards of Medical Care in Diabetes 2016, Stateless Diabetes Association. Diabetes Care. 2016.39(Suppl 1).Performed By: #### 2777-1, 41467-5, ####[facility] LABCLIA [id number] [address] [place] AMERICAPotassium [Moles/Vol] 3.9 mmol/LNormal3.7-5.1CParma Community General Hospital on above:Order Comment: Specimen Type: BLOOD SPECIMENOrdering Facility: [facility] Address:[address] [place], [place] [address]Performed By: #### 2777-1, , ####[facility] LABCLIA [id number][place] [address] [place] AMERICASodium [Moles/Vol]139 mmol/L Atppqq845-464GssuxvgelACMC [facility] on above:Order Comment: Specimen Type: BLOOD SPECIMENOrdering Facility: [facility] Address:[address] [place], [place] [address]Performed By: #### 2777-1, , ####[facility] LABCLIA [id number] [place] [address] [place] OF AMERICAUrea nitrogen [Mass/Vol]6 mg/dL Low7-21[facility] on above:Order Comment: Specimen Type: BLOOD SPECIMENOrdering Facility: [facility] Address:[address] [place], [place] [address]Performed By: #### 2777-1, 03802-0, 54057-8 ####[facility] LABCLIA [id number] OF [facility] HOSPITALCBC panel Auto (Bld)on 09-04-2023 Erythrocyte distribution width (RBC) [Ratio]14.4 %Kiwrwd15.5-15.0[facility] Medical Centerment on above:Order Comment: Specimen Type: BLOOD SPECIMENOrdering Facility: [facility] Address:[address] [place], [place] [address]Performed By: #### 35484-1 ####[facility] LABIA [id number] [address] STATES OF [facility]IAL HOSPITALHematocrit (Bld) [Volume fraction]38.9 %Slftrx52.0-46.0[facility] on above:Order Comment: Specimen Type: BLOOD SPECIMENOrdering Facility: [facility] Address:[address] [place], [place] [address]Performed By: #### 28197-2 ####[facility] LABIA [id number] [address] [place] Hemoglobin (Bld) [Mass/Vol]12.4 g/aFMxjaxt24.5-15.5CRegional Medical Center Comment on above:Order Comment: Specimen Type: BLOOD SPECIMENOrdering Facility: [facility] Address:[address] [place] [address] Performed By: #### 82721-1 ####[facility] LABIA [id number] [place] [address] [place] MCH (RBC) [Entitic mass]25.6 pgLow26.0-34.0[facility] on above:Order Comment: Specimen Type: BLOOD SPECIMENOrdering Facility: [facility] Address:[address] [place], [place] [address]Performed By: #### 43958-6 ####[facility] LABCLIA [id number] [address]ETMCHC (RBC) [Mass/Vol] 31.9 g/bLVlzxhh67.5-36.0[facility] on above:Order Comment: Specimen Type: BLOOD SPECIMENOrdering Facility: [facility] Address:[address] [place], [place] [address]Performed By: #### 58830- 2 ####[facility] LABCLIA [id number] [address]REETMCV (RBC) [Entitic vol]80.2 fL Alpbrs77.0-100.0[facility] on above:Order Comment: Specimen Type: BLOOD SPECIMENOrdering Facility: [facility] Address:[address] [place], [place] [address]Performed By: #### 26782-4 ####[facility] LABIA [id number] [address]ETucleated RBC (Bld) [#/Vol] 10*3/uLNormal<0.01[facility] on above:Order Comment: Specimen Type: BLOOD SPECIMENOrdering Facility: [facility] Address:[address] [place], [place] [address]Performed By: #### 75133-9 ####[facility] LABCLIA [id number] [address] STREETPlatelet mean volume (Bld) [Entitic vol]11.2 fLNormal9.0-12.7CParma Community General Hospital on above: Order Comment: Specimen Type: BLOOD SPECIMENOrdering Facility: [facility] Address:[address] [place], [place] [address]Performed By: #### 94855- 2 ####[facility] LABCLIA [id number] [place] [address] [place] OF AMERICAPlatelets (Bld) [#/Vol]241 10*3/vDBdophu669-770ZguwwehsxACMC [facility] on above:Order Comment: Specimen Type: BLOOD SPECIMENOrdering Facility: [facility] Address:[address] [place], [place] [address]Performed By: #### 77904-6 ####[facility] LABCLIA [id number] [address] STATES OF AMERICARBC (Bld) [#/Vol]4.85 10*6/uL Normal3.90-5.20[facility] on above:Order Comment: Specimen Type: BLOOD SPECIMENOrdering Facility: [facility] Address:[address] [place], [place] [address]Performed By: #### 87547-6 ####[facility] LABIA [id number] [address] STATES OF AMERICAWBC (Bld) [#/Vol]6.31 10*3/uL Normal3.70-11.00[facility] on above:Order Comment: Specimen Type: BLOOD SPECIMENOrdering Facility: [facility] Address:[address] [place], [place] [address]Performed By: #### 61158-9 ####[facility] LABIA [id number] [place] [address] [place] AMERICAMagnesium SerPl-mCncon 09-04-2023 Magnesium [Mass/Vol]2.1 mg/dLNormal1.7-2.3CParma Community General Hospital on above:Order Comment: Specimen Type: BLOOD SPECIMENOrdering Facility: [facility] Address:[address] [place], [place] [address]Performed By: #### 2777-1, 87832-6, 49557-3 ####[facility] LABCLIA [id number] VIL[place] [id number] [place] Phosphate SerPl-mCncon 97-47-2319Jwncvkihl [Mass/Vol]3.3 mg/dLNormal2.7-4.8 [facility] HospitalComment on above:Order Comment: Specimen Type: BLOOD SPECIMENOrdering Facility: [facility] Address:[address] [place], [place] [address]Performed By: #### 2777-1, 92026-1, 20337-3 ####[facility] LABCLIA [id number] [place] [address] [place] OF AMERICAANES POSTPROC EVALon 68-85-4350HTEJ POSTPROC EVAL HNO ID: [id number] Author: ITZEL ANTONY MD Service: ? Author Type: Physician Type: Anesthesia Postprocedure Evaluation Filed: 09/03/2023 12:57 Note Text: POST ANESTHESIA EVALUATION NOTE : 2005 Procedure Summary Date: 09/03/23 [address] An[address]hesia Start: 721 Anesthesia Stop: 1223 Procedure: [...] September 03, 2023 TIME: 12:57 PM CSN: [id number] [facility] Hospital PRE-OPon 32-92-5136AZTO PRE-OPHNO ID: [id number] Author: ITZEL ANTONY MD Service: ? Author Type: Physician Type: Anesthesia Preprocedure Evaluation Filed: 09/03/2023 07:25 Note Text: ANESTHESIOLOGY DAY OF SURGERY NOTE : 2005 Procedure Information Anesthesia Start Date/Time: 09/03/23721 Procedure: THYROIDECTOMY TOTAL (Bilateral: Thyroid) Location: [facility] Surgeons: Latasha Bobo [...] September 03, 2023 TIME: 7:25 AM CSN: [id number] [facility] OP NOTon 77-66-8518ONPSU OP NOTHNO ID: [id number] Author: JANINE SOLANO MD Service: Otolaryngology Author Type: Resident Type: Brief Op Note Filed: 09/03/2023 12:12 Note Text: BRIEF OP NOTE LOG ID: [id number] Surgery/Procedure Date: 09/03/2023 Incision/Procedure Start Time: 7:53 AM Incision Close/Procedure End Time: 12:06 PM Surgeon(s)/Proceduralist(s) and Program Consultant(s): Surgeon(s) and Role: * Latasha Bobo MD [...] 03, 2023 TIME: 12:12 PM PAGER/CONTACT #: [id number] [facility] Calcium.ionized [Moles/Vol]on 65-90-0948Mpdwasx.ionized (Bld) [Mass/Vol]1.28 mmol/LNormal1.08-1.30[facility] on above:Order Comment: Specimen Type: BLOOD SPECIMENOrdering Facility: [facility] Address:[address] [place], [place] [address]Performed By: #### ####[facility] LABCLIA [id number] [place] [address], [place] [address] [place] AMERICACalcium.ionized adjusted to pH 7.4 (Bld) [Moles/Vol]1.22 mmol/LNormal1.08-1.30[facility] on above:Order Comment: Specimen Type: BLOOD SPECIMENOrdering Facility: [facility] Address:[address] [place] [address] Performed By: #### ####[facility] LABCLIA [id number] [facility] WESTTIBZOIFSPFK42XBXOMGIGE[place] [address] [facility] NURSING PROGon 84-56-7149YTHAHAD PROGHNO ID: [id number] Author: BRENNEN HOPKINS RN Service: Nursing Author [...] night. This note was completed by: Brennen RuizTogus [facility] OPERATIVE NOon 50-70-2529CRWFXOWQW NOHNO ID: [id number] Author: LATASHA BOBO MD Service: Otolaryngology Author Type: Physician Type: Operative Report Filed: 09/08/2023 23:04 Note Text: The [facility] [address] [place] [address] or (256) PSY[facility]IATRIC-[facility] C O N F I D E N T I A L I N F O R M A T I O N STANDARD [facility] DOCUMENT OPERATIVE REPORT Otolaryngology Head and Neck Surgery Name: Sheyla Lea PSYCHIATRIC #: [id number] Date: 09/03/2023 Date of : 2005 Pre [...] the clavicle. These were held back with [place] retractors. The midline raphae was was bisected [...] from surrounding tissue melton (more content not included)...NormalGlenbeigh HospitalPTH-Intact SerPl-mCncon 61-19-4235Ykjctxhiid.intact [Mass/Vol]42 pg/mL Fouhfq12-27TudvtbjsvGlenbeigh HospitalComment on above:Order Comment: Specimen Type: BLOOD SPECIMENOrdering Facility: [facility] Address:[address] [place], [place] [address]Performed By: #### 2731-8 ####[facility] LABCLIA [id number] [facility] [id number], [place] [address] [facility] MEDICAL CENTERSURGICAL PATHOLOGYon [id number] REPORTNormal Glenbeigh HospitalComment on above:Order Comment: Specimen Type: TISSUE SPECIMENOrdering Facility: [facility] Address: [address] [place] [id number] Comment: Surgical Pathology Report Case: [id number] Authorizing Provider: Latasha Bobo MD Collected: 09/03/2023 08:16 AM Ordering Location: Admitting Received: 09/03/2023 08:19 AM Pathologist: Javier Nick DMD Intraop: Joel Jeronimo MD Specimens: A) - Trachea, Biopsy, Pre tracheal node B) - Thyroid, Total, Thyroidectomy, stitch williamson left superior polePerformed By: #### S ####[facility] LABCLIA [id number] [address]CLINICAL HISTORYNormal [facility] on above:Order Comment: Specimen Type: TISSUE SPECIMENOrdering Facility: [facility] Address: [address] [place], [place] [address]Result Comment: Pre-op diagnosis: Thyroiditis [E06.9]Performed By: #### S ####[facility] LABCLIA [id number] [address] DIAGNOSISNormalCParma Community General Hospital on above:Order Comment: Specimen Type: TISSUE SPECIMENOrdering Facility: [facility] Address: [address] [place], [place] [address]Result Comment: A. Pretracheal lymph node, excision: - Fibroadipose tissue with one benign lymph node. B. 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 Performed By: #### S ####[facility] LABCLIA [id number] [address]FINOR PERFORMING LAB NormalACMC Healthcare System [facility] on above:Order Comment: Specimen Type: TISSUE SPECIMENOrdering Facility: [facility] Address: [address] [place], [place] [address]Result Comment: Diagnostic interpretation performed at [facility], [address] [place] [address] CLIA# [id number] [employer] Station Chief: Remy H. Henricks, M.D.Performed By: #### S ####[facility] LABCLIA [id number] [place] [address] [place] OF AMERICAGROSS DESCRIPTIONNoBucyrus Community Hospital Comment on above:Order Comment: Specimen Type: TISSUE SPECIMENOrdering Facility: [facility] Address: [address] [place], [place] [address]Result Comment: A. Trachea, Biopsy Received fresh for frozen section designated pretracheal node is a pink-buckley lymph node that measures 0.4 x 0.4 x 0.3 cm. The specimen is entirely submitted for intraoperative consultation. WE September 03, 2023 8:26 AM Gross examination performed at [facility], [address] [place] [address] B. Thyroid, Total, Thyroidectomy Labeled: Thyroid, total, [...] lobe Blue- external surface of left lobe Cherry- external surface of isthmus Sectioning: The right and left lobes are serially section from superior to inferior. The isthmus isserially section from right to left. Number of discrete nodules: 0 Background thyroid parenchyma: Buckley-brown to brown in color, with lobulated configuration. Attached skeletal muscle: Not identified Attached lymph nodes: Not identified Attached parathyroid: Not identified Gross photograph: No Cassette code: B1: Right lobe, procurement representative section B2: Left lobe, procurement representative section B3: Isthmus, procurement representative section Gross examination performed at [facility], [address] [place], [place] [address]IA# [id number] 09/06/23 1:33 PMPerformed By: #### S ####[facility] LABIA [id number] [address] STATES OF AMERICAINTRAOPERATIVE DIAGNOSISNoBucyrus Community HospitalComment on above: Order Comment: Specimen Type: TISSUE SPECIMENOrdering Facility: [facility] Address: [address] [place], [place] [address]Result Comment: A. Trachea, Biopsy FSA 1: Mostly fibroadipose tissue with rare lymphoid aggregate () September 03, 2023 8:35 AM Intraoperative diagnosis performed at [facility], [address] [place], [place] [address]Performed By: #### S ####[facility] LABIA [id number] [place] [address] [place] CNCOon 86-39-5871DQSHUhtujw TextNormalCRegional Medical CenterB-HCG SerPl-aCnc on 10-02-2235IZD.beta subunit Qnm[IU]/mLNormal<5.0[facility] Comment on above:Order Comment: Specimen Type: BLOOD SPECIMENOrdering Facility: [facility] Address:[address] [place], [place] [address]Result Comment: NegativePerformed By: #### 57835-8 ####[facility] LABIA [id number] [place] [address] [place] OF AMERICABasic metabolic 2000 panelon 89-63-1369Rgbkg gap [Moles/Vol]10 mmol/L Normal9-18[facility] HospitalCommymichigan medical center west branch on above:Order Comment: Specimen Type: BLOOD SPECIMENOrdering Facility: [facility] Address:[address] [place], [place] [address]Performed By: #### 18436-4, 2243-4, DHEAS, 11121- 2 ####[facility] LABIA [id number] [place] [address] [place] AMERICACalcium [Mass/Vol]9.8 mg/dLNormal 8.5-10.2CRegional Medical CenterCommymichigan medical center west branch on above:Order Comment: Specimen Type: BLOOD SPECIMENOrdering Facility: [facility] Address:[address] [place], [place] [address]Performed By: #### 86589-9, 2243-4, DHEAS, 76563- 2 ####[facility] LABIA [id number] [address] [address] [place] OF AMERICAChloride [Moles/Vol]106 mmol/L Dniy12-169PynuxeytjACMC Healthcare System [facility] on above:Order Comment: Specimen Type: BLOOD SPECIMENOrdering Facility: [facility] Address:[address] [place], [place] [address]Performed By: #### 65524-3, 2243-4, DHEAS, 71982- 2 ####[facility] CENTERIA [id number] [place] [address] [place] AMERICACO2 [Moles/Vol]24 mmol/LNormal 22-30[facility] on above:Order Comment: Specimen Type: BLOOD SPECIMENOrdering Facility: [facility] Address:[address] [place], [place] [address]Performed By: #### 77279-7, 3-4, DHEAS, 87185-5 ####[facility] CENTERIA [id number] [place] [address] [place] AMERICACreatinine [Mass/Vol]0.67 mg/dL Normal0.58-0.96[facility] on above:Order Comment: Specimen Type: BLOOD SPECIMENOrdering Facility: [facility] Address:[address] [place], [place] [address]Performed By: #### 78747-6, 3-4, DHEAS, 44505-7 ####[facility] LABIA [id number] [place] [address] [place] AMERICACreatinine and Glomerular filtration rate.predicted panel (S/P/Bld)129 mL/min/1.73m???Normal >=60[facility] on above:Order Comment: Specimen Type: BLOOD SPECIMENOrdering Facility: [facility] Address:[address] [place], [place] [address]Result Comment: Estimated Glomerular Filtration Rate (eGFR) is calculated using the 2021 CKD-EPI creatinine equation. This equation utilizes serum creatinine, sex, and age as parameters. The creatinine assay has traceable calibration to isotope dilution-mass spectrometry. Refer to KDIGO guidelines for clinical interpretation. In patients with unstable renal function, e.g. those with acute kidney injury, the eGFR may not accurately reflect actual GFR.Performed By: #### 43835-8, 3-4, DHEAS, 73131-4 ####[facility] LABCLIA [id number] [place] [address] [place] AMERICAGlucose [Mass/Vol]90 mg/dLNormal 74-99[facility] on above:Order Comment: Specimen Type: BLOOD SPECIMENOrdering Facility: [facility] Address:[address] [place], [place] [address]Result Comment: The Stateless Diabetes Association (ADA) provides guidance for cutoff [...] Standards of Medical Care in Diabetes 2016, Stateless Diabetes Association. Diabetes Care. 2016.39(Suppl 1).Performed By: #### 20599-5, 2242-4, DHEAS, 62629-0 ####[facility] LABCLIA [id number] [place] [id number] [place] OF AMERICAPotassium [Moles/Vol] 4.0 mmol/LNormal3.7-5.1CParma Community General [facility] on above:Order Comment: Specimen Type: BLOOD SPECIMENOrdering Facility: [facility] Address:[address] [place], [place] [address]Performed By: #### 98684-8, 2242-4, DHEAS, 28454-2 ####[facility] LABCLIA [id number] [place] [address] [place] AMERICASodium [Moles/Vol]140 mmol/GVenecz046-112JyqcyrnqhACMC Healthcare System [facility] on above:Order Comment: Specimen Type: BLOOD SPECIMENOrdering Facility: [facility] Address:[address] [place], [place] [address]Performed By: #### 48863-5, 2243-4, DHEAS, 05193-0 ####[facility] LABIA [id number] [place] [address] [place] AMERICAUrea nitrogen [Mass/Vol]10 mg/dLNormal7-21[facility] on above:Order Comment: Specimen Type: BLOOD SPECIMENOrdering Facility: [facility] Address:[address] [place], [place] [address]Performed By: #### 42795- 2, 3-4, DHEAS, 84470-5 ####[facility] LABIA [id number] [place] [address] [place] AMERICACBC panel Auto (Bld)on 89-92-3404Uezdehmcdug distribution width (RBC) [Ratio]14.3 % Mfbgbs91.5-15.0[facility] on above:Order Comment: Specimen Type: BLOOD SPECIMENOrdering Facility: [facility] Address:[address] [place], [place] [address]Performed By: #### 90724-9 ####[facility] LABIA [id number] [place] [address] [place] AMERICAHematocrit (Bld) [Volume fraction]41.4 %Gzbzur69.0-46.0[facility] on above:Order Comment: Specimen Type: BLOOD SPECIMENOrdering Facility: [facility] Address:[address] [place], [place] [address]Performed By: #### 24309- 2 ####[facility] LABIA [id number] [address] STATES OF W[facility] MEM[facility]IAL HOSPITALHemoglobin (Bld) [Mass/Vol]13.1 g/yLIzrzbx34.5-15.5CRegional Medical CenterCommymichigan medical center west branch on above:Order Comment: Specimen Type: BLOOD SPECIMENOrdering Facility: [facility] Address:[address] [place], [place] [address]Performed By: #### 41843-5 ####[facility] LABIA [id number] [address]ETMCH (RBC) [Entitic mass]25.3 pg Low26.0-34.0[facility] HospitalComment on above:Order Comment: Specimen Type: BLOOD SPECIMENOrdering Facility: [facility] Address:[address] [place], [place] [address]Performed By: #### 89391-5 ####[facility] LABIA [id number] [place] [address] [place] WYAND[facility] MEMORIAL HOSPITALMCHC (RBC) [Mass/Vol]31.6 g/sFDittxm03.5-36.0[facility] HospitalCommymichigan medical center west branch on above:Order Comment: Specimen Type: BLOOD SPECIMENOrdering Facility: [facility] Address:[address] [place], [place] [address]Performed By: #### 04115-3 ####[facility] LABIA [id number] [address] STATES OF DETRO[facility] RECEIVING HOSPITALV (RBC) [Entitic vol]80.1 gVEfwuub51.0-100.0[facility] Comment on above:Order Comment: Specimen Type: BLOOD SPECIMENOrdering Facility: [facility] Address:[address] [place] [address] Performed By: #### 26236-4 ####[facility] LABIA [id number] [place] [address] [place] Nucleated RBC (Bld) [#/Vol]10*3/uLNormal<0.01[facility] on above:Order Comment: Specimen Type: BLOOD SPECIMENOrdering Facility: [facility] Address:[address] [place] [address] Performed By: #### 83792-8 ####[facility] LABCLIA [id number] [place] [address] [place] Platelet mean volume (Bld) [Entitic vol]11.6 fLNormal9.0-12.7CParma Community General Hospital on above:Order Comment: Specimen Type: BLOOD SPECIMENOrdering Facility: [facility] Address:[address] [place], [place] [address]Performed By: #### 91455-4 ####[facility] LABCLIA [id number] [place] [address] [place] Platelets (Bld) [#/Vol]256 10*3/hBGryuhl798-108NnwnyvdbcACMC Healthcare [facility] on above:Order Comment: Specimen Type: BLOOD SPECIMENOrdering Facility: [facility] Address:[address] [place] [address] Performed By: #### 21900-8 ####[facility] LABIA [id number] [place] [address] [place] RBC (Bld) [#/Vol]5.17 10*6/uLNormal3.90-5.20[facility] on above:Order Comment: Specimen Type: BLOOD SPECIMENOrdering Facility: [facility] Address:[address] [place], [place] [address]Performed By: #### 45168-2 ####[facility] LABIA [id number] [place] [address] [place] AMERICAWBC (Bld) [#/Vol]3.93 10*3/uLNormal3.70-11.00[facility] on above:Order Comment: Specimen Type: BLOOD SPECIMENOrdering Facility: [facility] Address:[address] [place], [place] [address]Performed By: #### 83905-8 ####[facility] CENTERIA [id number] [place] [address] [place] AMERICADHEA-S BLDon 42-17-1024BLEW-S [Mass/Vol]365.3 ug/dL65.1 - 368.0 ug/dLSamaritan HospitalDHEA-S [Mass/Vol]365.3 ug/eUArxhqb15.1-368.0[facility] HospitalComment on above:Order Comment: Specimen Type: BLOOD SPECIMENOrdering Facility: [facility] Address:[address] [place], [place] [address]Result Comment: Reference ranges are age and gender specific. For additional information, referencerange tables can be found in the laboratory test directory. The normal values are based on the following source: Dehydroepiandrosterone sulfate (DHEA S) [package insert V 17.0 Bhutanese]. [facility], [place], [place]: December 2012.Performed By: #### 85458-9, 2243-4, DHEAS, 14730-2 ####[facility] LABIA [id number] [place] [address] [place] AMERICAECG COMPLETEon 07-97-3316JOO COMPLETEVentricular Rate : 70 BPM Atrial Rate : 70 BPM P-R Interval : 136 ms QRS Duration : 70 ms Q-T Interval : 404 ms QTC Calculation(Bazett) : 436 ms Calculated R Tipton : 76 degrees Calculated T Tipton : 56 degrees NORMAL SINUS RHYTHM NORMAL ECG Confirmed by MIRNA MICHAEL MD ([id number]) on 08/31/2023 8:27:21 PM NAME : SHEYLA LEA PID : [id number] : 2005 Gender : Female Race : ORD : [id number] Procedure Date : Aug 25 2023 08:09:41 Edit Date : Aug 31 2023 20:27:23 Diagnosis: NORMAL SINUS RHYTHM NORMAL ECG Confirmed by MIRNA MICHAEL MD ([id number]) on 08/31/2023 8:27:21 PM Test Reason : Location : 119 : A17 Overread By : MIRNA MICHAEL MD Edited By : MIRNA MICHAEL MD Referred By : LATASHA BOBO Acquired by : Jessy CONTRERASRegional Medical CenterESTRADIOL-17B BLDon 58-81-7018I7 [Mass/Vol]39 pg/mLCleveland ClinicEstradiol SerPl-mCncon 08-25-2023 E2 [Mass/Vol]39 pg/mLNormalGlenbeigh HospitalComment on above:Order Comment: Specimen Type: BLOOD SPECIMENOrdering Facility: [facility] Address:[address] [place], [place] [address]Result Comment: This test is not suitable for [...] 3243 pg/mL Second trimester : 1561 to 07143 pg/mL Third trimester : 8285 to >56423 pg/mL Post-menopausal Estradiol reference range: < 41 pg/mL Reference: 1. Estradiol - E2 (Estradiol III) [package insert V 3.0 Bhutanese]. [facility], [place], [place], October 2015.Performed By: #### 00521-0, 2243- 4, DHEAS, 50062-7 ####[facility] LABCLIA [id number] [address] STATES OF [facility] BLDon 08-25-2023 Follitropin Qn6.2 m[IU]/mLSee comment mIU/mLCTwin City Hospital SerPl-aCncon 24-44-2216Afylktkigpj Qn6.2 m[IU]/mLNormalSee commentGlenbeigh Hospital Comment on above:Order Comment: Specimen Type: BLOOD SPECIMENOrdering Facility: [facility] Address:[address] [place], [place] [address]Result Comment: Reference range: Follicular: 3.5-12.5 mIU/mL Ovulation: 4.7-21.5 mIU/mL Luteal: 1.7-7.7 mIU/mL Postmenopausal: 25.8-134.8 mIU/mLPerformed By: #### 41031-2, 2243-4, DHEAS, 45633-9 ####[facility] LABCLIA [id number] [place] [address] [place] AMERICAHCG QUANTITATIVEon 11-06-3684SGO.beta subunit Qn<5.0 mIU/mLCleveland ClinicHISTORY PHYSICALon 94-93-7956FOMSJXL PHYSICALHNO ID: [id number] Author: JOHN HUMPHREY PA-C Service: ? Author Type: Physician Program Consultant Type: H&P Filed: 08/26/2023 10:08 Note Text: [...] CAD, chest pain, CHF, DVT/PE, hypertension, recent OH, murmur/valvular heart disease and PVD. GI: Positive [...] other (ALS) Maternal Gra (more content not included)...NormalGlenbeigh HospitalHYDROXYPROGESTERONE-17on 44-20-930460520420-NMSTWEWZEYCIEHILEKH QUANTITATIVE BY HPLC-MS/MS, SERUM OR HQXIBN93.23 ng/dLNormal<=206.00[facility] on above:Order Comment: Specimen Type: BLOOD SPECIMENOrdering Facility: [facility] Address:[address] [place], [place] [address]Result Comment: INTERPRETIVE INFORMATION for 17-Hydroxyprogesterone in females: Follicular 15 to 70 ng/dL Luteal 35 to 290 ng/dL REFERENCE INTERVAL: 17-Hydroxyprogesterone Qnt, HPLC-MS/MS Access complete set of age- and/or gender-specific reference intervals for this test in the [employer] Laboratory Test Directory (Zenbox). This test was developed and its performance characteristics determined by [facility]. It has not been cleared or approved by the US Food and Drug Administration. This test was performed in a CLIA certified laboratory and is intended for clinical purposes. Performed By: [facility] [address] [place] [address] Hydroelectric Station Chief: Jaden Fonseca MD, PhD CLIA Number: [id number] By: #### HPROG ####[email or web address] LABORATORIESIA [id number] [place], [place] [address]LB SerPl-aCncon 08-25-2023 Lutropin Qn8.8 m[IU]/mLNormalSee commentACMC Healthcare System Glen[facility]igh on above:Order Comment: Specimen Type: BLOOD SPECIMENOrdering Facility: [facility] Address:[address] [place], [place] [address]Result Comment: Reference range: Follicular: 2.4-12.6 mIU/mL Midcycle: 14.0-95.6 mIU/mL Luteal: 1.0-11.4 mIU/mL [place]: 7.7-58.5 mIU/mLPerformed By: #### 2842-3, 68848-9 ####[facility] LABIA [id number] [place] [address] [place] AMERICALUTEINIZING HORMONEon 67-48-4245Fvepwxnn Qn8.8 m[IU]/mLSee comment mIU/mLCleveland ClinicPROLACTIN BLDon 26-89-2293Echzcsmbu [Mass/Vol]8.6 ng/mL4.5 - 26.8 ng/mLCleveland ClinicProlactin SerPl-mCncon 75-33-9765Jcrfvwcht [Mass/Vol]8.6 ng/mLNormal4.5-26.8[facility] Comment on above:Order Comment: Specimen Type: BLOOD SPECIMENOrdering Facility: [facility] Address:[address] [place], [place] [address]Result Comment: Prolactin test is performed using the [facility] Electrochemiluminescence Immunoassay method. Results obtained with different methods or kits cannot be used interchangeably.Performed By: #### 2842-3, 99807- 5 ####[facility] LABIA [id number] [place] [address] [place] AMERICATESTOSTERONE, FREE AND TOTALon 83-08-7468OWKDSUZHPQDD, FREE, S1.45 ng/dLHigh<0.13-1.08[facility] HospitalComment on above:Order Comment: Specimen Type: BLOOD SPECIMENOrdering Facility: [facility] Address:[address] [place], [place] [address]Result Comment: ADDITIONAL INFORMATION This test was developed and its performance characteristics determined by [facility] in a manner consistent with CLIA requirements. This test has not been cleared or approved by the U.S. Food and Drug Administration.Performed By: #### TFTEST ####[facility] REFERENCE LABCLIA [id number] [place], [place] [address]FPLOTFXMSCRI, TOTAL, S56 ng/dLNormal8-60[facility] on above:Order Comment: Specimen Type: BLOOD SPECIMENOrdering Facility: [facility] Address:[address] [place], [place] [address]Zakfyv Comment: ADDITIONAL INFORMATION Testing performed by Liquid Chromatography-Tandem Mass Spectrometry (LC-MS/MS). This test was developed and its performance characteristics determined by [facility] in a manner consistent with CLIA requirements. This test has not been cleared or approved by the U.S. Food and Drug Administration. Test Performed by: [facility] [address] [place] [address] Senior Energy Consultant: Yan Echols M.D. Ph.D.; CLIA# [id number] By: #### TFTEST ####[facility] REFERENCE LABCLIA [id number] [place], [place] [address]WMLQsh 84-12-7629QJFJZkitzkpxh (HNQ) SHEYLA LEA ([id number]) [birth year] F Date Time Provider Department 07/13/23 [...] to consider it. She will see her lead quality control technician which is a new lead quality control technician in August and then if still interested in pursuing thyroidectomy will reach out to me. In the meantime we can hold a surgical date. Ltaasha Bobo MD Allergies As of Date: 07/13/2023 (No Known Allergies) Date Reviewed: 04/23/2023 Reviewed by: Ayesha Maddox RN - Fully Assessed Reason for Visit: Results [95] Primary Visit Diagnosis:Thyroiditis [E06.9] Order(s):SURGICAL REQUEST - ELECTIVE (12/2019) [4088073] Order #: [id number]: 1 CBC [SQCBC] Order #: [id number] FUTURE BASIC METABOLIC PNL [SQBMP] Order #: [id number] FUTURE ECG COMPLETE [ECG01] Order #: [id number] FUTURE Prescriptions as of 08/02/2023 - omeprazole [...] t*04/15/2022 Encounter Status:Closed by LATASHA BOBO on 08/02/23NormalCLisa [place] [address] Free SerPl-mCncon 45-99-6711Lmya T4 [Mass/Vol]1.2 ng/dLNormal0.9-1.7 [facility] on above:Order Comment: Specimen Type: BLOOD SPECIMENOrdering Facility: [facility] Address:[address] [place], [place] [address]Performed By: #### 3016-3, 3024-7 ####[facility] LABCLIA [id number] [place] [address] [place] AMERICATHYROGLOBULIN ABon 93-69-8425Ydvavckdjgrnh Ab Qn91.0 [IU]/mL High<4.0[facility] on above:Order Comment: Specimen Type: BLOOD SPECIMENOrdering Facility: [facility] Address:[address] [place], [place] [address]Result Comment: The Thyroglobulin Antibody test was performed using the i[employer] DXI paramagnetic particle chemiluminescent immunoassay method. Results obtained with different assay meth ods or kits cannot be used interchangeably.Performed By: #### TGAB ####[facility] LABCLIA [id number] [place] [address] [place] AMERICATHYROID PEROXIDASE ANTIBODY BLOODon 80-41-5476PTT Ab Qn249.5 [IU]/mLHigh<5.6CParma Community General Hospital on above:Order Comment: Specimen Type: BLOOD SPECIMENOrdering Facility: [facility] Address:[address] [place], [place] [address]Result Comment: Thyroid Peroxidase Antibody test is used as an aid in diagnosis of autoimmune thyroid disease. Clinical correlation is required.Performed By: #### MICRO ####[facility]ENTERIA [id number] [address] SerPl-aCncon 82-85-6328BKJ Qn2.600 m[IU]/L Normal0.510-4.300Glenbeigh HospitalComment on above:Order Comment: Specimen Type: BLOOD SPECIMENOrdering Facility: [facility] Address:[address] [place], [place] [address]Result Comment: If the patient is , TSH reference range varies by gestational period: First Trimester (weeks 9-12): 0.180-2.990 mIU/L Second Trimester: 0.110-3.980 mIU/L Third Trimester: 0.480-4.710 mIU/L Jose Fisher et al. A Practical Approach for the Verifications and Determination of Site- and Trimester-Specific Reference Intervals for Thyroid Function tests in . Thyroid, 2019:29:3:412-420.Loc E, et al. 2017 Guidelines of the Stateless Thyroid Association for the Diagnosis and Management of Thyroid Disease during and the . Thyroid, 2017:27:3:315-389. Reference ranges were not locally established for this patient's age group. The normal values are based on the following source: Jayla W, Tim V. Reference Ranges for Adults and Children: Pre-analytical Considerations. [facility] DiagnosticsPerformed By: #### 3016-3, 3024-7 ####[facility] CENTERIA [id number] [place] [id number] [facility]–MONTGOMERYCNOVon 94-47-0177QJLGIlqwzq Visit (OTOLMN) SHEYLA [id number]) 3 F Date Time Provider Department 04/23/23 [...] Latasha Bobo MD 05/17/2023 1:09 AM Signed [place] [facility] follow-up CC: thyroid nodules HPI: Sheyla [...] mobility normal Neck Ultrasound: 05/17/2023 Ultrasound Machine: [email or web address] Transducer: Linear 11 MHz Regions examined: Thyroid [...] [E04.1] Order(s):US THYROID/PARATHYROID (POC) HNI USE ONLY? [[id number]] Order #: [id number]. #:[id number]: 1 TSH BLD [SQTSH] Order #: [id number] FUTURE T4 FREE/FREE THYROX [SQFT4] Order #: [id number] FUTURE THYROID PEROXIDASE ANTIBODY BLOOD [SQMICRO] Order #: [id number] (more content not included)...NormalParkview Health Montpel[facility] Summaryon 63-19-2405Qfulgd SummaryMLBase 64 FyauhqyuXCa2uJa+PGhlYWQ+FA6FADJdM60cwPQfuN2bA5ALEFcAPzcyQAFCKXkVJiRvvuIxHG4heGDn ZXJu [file] ZGV (more content not included)...[facility] HospitalED Clinical Summaryon 85-78-3675RX Clinical [facility] ? Urgent Care [address] [place] [address] Clinical Summary PERSON INFORMATION Name: SHEYLA LEA Age: 17 Years Sex: FEMALE : 2005 MRN: Acct#: Visit Reason: General medical; HEADACHE, RUNNY NOSE Arrival: 01/27/2023 17:33:58 Discharge: 01/27/2023 19:00:00 LOS: 000 01:27 Check In: 01/27/2023 17:33:58 Checkout: 01/27/2023 19:00:00 Address: [address] [place] [address] PCP: Aime Gfof DO PROVIDER INFORMATION Provider Role Assigned Unassigned Zara Fleming IT ARCHITECTURE CONSULTANT Nurse 01/27/2023 17:38:07 Chetna Rodriguez PA-C ED [...] With: Address: When: Aime Goff DO [address] [place] [address] DIAGNOSIS: 1:Viral upper respiratory illness Patient Understands: Comment:[facility] HospitalED Note-Nursingon 91-94-8321YI Note-Nursingcovid back at time of discharge. aware of results oM[facility] HospitalED Patient Summaryon 71-28-2800AD Patient [facility] ? Urgent Care [address] [place] [address] PATIENT DISCHARGE INSTRUCTIONS Patient Information Name: SHEYLA LEA Age: 17 Years Date of : 2005 Reason For Visit: General medical; HEADACHE, RUNNY NOSE Arrival Time: 01/27/2023 17:33:58 Primary Care Physician: Aime Goff DO Attending Physician: Chetna Rodriguez PA-C Comment: Patient Education With: Address: When: Aime Goff DO [address] [place] [address] Viral Respiratory Infection A respiratory infection is [...] home: Managing pain and congestion ? Take jbyb-nun-agonvjf and prescription medicines only as told by [...] water are not available, use alcohol-based hand football pad repairer. ? Cover your mouth when you cough. [...] the respiratory system, suc (more content not included)...[facility] HospitalCoding Summary on 64-27-9209Rbxvig SummaryHTMLBase 64 IxvdjyudEYw8qHb+PGhlYWQ+SH9DHYHsO46szNNlfU2gF0PHKVkCKhpgKNUCMGePCbRtcxGzBC3aqPWn ZXJu [file] bGU (more content not included)...[facility] Urineon 01-08-2023 UrineUrine Culture ordered as a result of parameters set on specific urine dip and urine microsopic results. Mixed skin, or urogenital amr. Clinically insignificantTriHealth Bethesda North Hospital Comment on above:Performed By: #### [id number], [id number], 844741681, [id number] ####[facility] (DEFAULT)[address] [place] [address].Auto Diff 178-15-7013Mphs Beadle %9 %[address] Brown StreetComment on above: Performed By: #### [id number], 0436610, 9172345310, 1047985143, 5047350408, 8486786415 ####[facility] (DEFAULT)[address] [place] [address] 10144Enfv Abs#0.1 f27Evawkv6.0-0.2Magruder HospitalComment on above:Performed By: #### 40027862, 9667125, 7998418545, 3047592695, 3958763226, 8470549505 ####[facility] (DEFAULT)[address] [place] [address] 86603 Basophils/100 WBC (Bld)1.0 %Normal0.2-2.0Magruder HospitalComment on above: Performed By: #### 37579614, 4929817, 0774798564, 6291970064, 3049606278, 1119385048 ####[facility] (DEFAULT)[address] [place] [address] 10587Fzx Abs#0.1 q00Frltqw3.0-0.4Magruder HospitalComment on above:Performed By: #### 98758262, 8528309, 5094947069, 9354712818, 4362539432, 2122411717 ####[facility] (DEFAULT)[address] [place] [address] 86771 Eosinophils/100 WBC (Bld)2.6 %Normal0.9-4.0Magruder HospitalComment on above: Performed By: #### 50121464, 9081395, 9968657942, 5777037338, 6370726377, 9911644798 ####[facility] (DEFAULT)[address] [place] [address] 00734Zsnvn Abs#2.5 g74Erzsdv0.3-2.9Magruder HospitalComment on above:Performed By: #### 97029341, 2360216, 2153016668, 8414152543, 3289757563, 5423638828 ####[facility] (DEFAULT)[address] [place] [address] 21851 Lymphocytes/100 WBC (Bld)44 %Gpgwuj89-34Khzrhzda HospitalComment on above: Performed By: #### 33400343, 5677755, 0842991777, 0801355017, 9025063032, 8458007034 ####[facility] (DEFAULT)[address] [place] [address] 94981Yquc Abs#0.5 y57Geepcy7.0-0.8[facility] HospitalComment on above:Performed By: #### 90158256, 6926609, 7342731204, 3317850144, 9191401379, 5631808284 ####[facility] (DEFAULT)[address] [place] [address] 30141Qygf Abs# 2.5 m56Vnqgoe4.5-9.2Mfirelands regional medical center HospitalComment on above:Performed By: #### 48219203, 3858499, 5685508990, 7784491548, 6429710393, 1740854802 ####[facility] (DEFAULT)[address] [place] [address] 36354Qwfrkbvcohc/100 WBC (Bld)44 %Ipdolj38-35Lyfbggmk HospitalComment on above:Performed By: #### 35281364, 0976524, 6238258951, 7809820240, 6490913349, 5931462665 ####[facility] (DEFAULT)[address] [place] [address] 94807MJV w/ Auto Diffon 68-36-2365Ilwocdjgkgv distribution width (RBC) [Ratio]15.2 %High11.5-15.0 [facility] HospitalComment on above:Performed By: #### 66540712, 3074593, 3955667434, 0002226249, 7243463614, 7342835203 ####[facility] (DEFAULT)[address] [place] [address] 71779Hoagifezfl (Bld) [Volume fraction]39.4 %Pimpyj37.7-40.4[facility] HospitalComment on above:Performed By: #### 78627848, 6683506, 9796963174, 3154757159, 0692784069, 7577817321 ####[facility] (DEFAULT)[address] [place] [address] 65204Azeazzvosp (Bld) [Mass/Vol]13.0 g/bEFglkja52.3-15.9[facility] HospitalComment on above: Performed By: #### 60408317, 8520988, 1194348965, 0773021571, 2662644241, 6647535966 ####[facility] (DEFAULT)[address] [place] [address] 73371Mge Diff?AutoInvalid Interpretation CodeOhiohealth Doctors Hospital HospitalComment on above: Performed By: #### 19388296, 7283931, 2097599073, 0098498556, 0632478686, 2977311131 ####[facility] (DEFAULT)[address] [place] [address] 83855UDV (RBC) [Entitic mass]26 ukIhpfjz33-54Fkcpciir HospitalComment on above: Performed By: #### 72031469, 0771951, 4590570613, 9426313827, 5890813742, 5738419246 ####[facility] (DEFAULT)[address] [place] [address] 81517MZAU (RBC) [Mass/Vol]33 g/zBHjdfap28-42Vprlpiyq HospitalComment on above: Performed By: #### 46936121, 9606961, 2834354135, 8530651842, 4075728044, 7643227577 ####[facility] (DEFAULT)[address] [place] [address] 22291SCR (RBC) [Entitic vol]78 eQDhn90-301Pozabsky HospitalComment on above: Performed By: #### 96662042, 5343216, 0371445634, 0010426889, 1048702812, 3302569051 ####[facility] (DEFAULT)[address] [place] [address] 97170Oagvfgci579 a69Ykuuec222-187Vcstnzfi HospitalComment on above:Performed By: #### 76957508, 5662735, 6182198127, 7514782492, 6114474334, 6454602488 ####[facility] (DEFAULT)[address] [place] [address] 54615Canaiasl mean volume (Bld) [Entitic vol]9.1 fLNormal6.3-10.2Mfirelands regional medical center HospitalComment on above:Performed By: #### 20279263, 0838705, 5094686160, 7473380352, 9356298182, 0087542257 ####[facility] (DEFAULT)[address] [place] [address] 88813NFI7.05 i62Cpcsrf4.70-5.30[facility] HospitalComment on above:Performed By: #### 54804543, 8601979, 4840974902, 8184490539, 3153435577, 8871473329 ####[facility] (DEFAULT)[address] [place] [address] 99842RKN7.7 x10 Normal3.5-10.5[facility] HospitalComment on above:Performed By: #### 26919671, 3059035, 6242541245, 6432675986, 7518156958, 2027810597 ####[facility] (DEFAULT)[address] [place] [address] 77851XJQ Standardon 80-43-0988vXVA Non AA>60Invalid Interpretation [facility] HospitalComment on above:Performed By: #### 07160140, 1105309, 4951420336, 1904861732, 3274069420, 2887117857 ####[facility] (DEFAULT)[address] [place] [address] 34589lWKP AA>60 Invalid Interpretation [facility] HospitalComment on above:Performed By: #### 73514740, 9985364, 3332243245, 5308191562, 1779539503, 2356820642 ####[facility] (DEFAULT)[address] [place] [address] 57084Mlnautg [Mass/Vol]4.5 g/dLNormal3.5-5.0[facility] HospitalComment on above:Performed By: #### 15145961, 4625384, 0405415144, 0863983261, 9992388492, 8236185654 ####[facility] (DEFAULT)[address] [place] [address] 48161Xalebru/Globulin [Mass ratio]1.3 {ratio}Low1.4-2.6Mfirelands regional medical center HospitalComment on above:Performed By: #### 14169280, 3281604, 8805076529, 6181731188, 3834928317, 4467372986 ####[facility] (DEFAULT)[address] [place] [address] 22154Vjp Phos66 IU/JRawosq17-23 [facility] HospitalComment on above:Performed By: #### 71875839, 3200123, 6151854534, 3015012632, 7694949327, 2479368264 ####[facility] (DEFAULT)[address] [place] [address] 57955KLI [Catalytic activity/Vol]21.0 U/LNormal8.0-29.0[facility] HospitalComment on above:Performed By: #### 49564282, 7825315, 6632379065, 4824396556, 4863717465, 5206584688 ####[facility] (DEFAULT)[address] [place] [address] 28149Qohin gap [Moles/Vol]9.5 mmol/L Normal5.0-19.0[facility] HospitalComment on above:Performed By: #### 38657164, 7022103, 8153311436, 0972867075, 4344899435, 9544359491 ####[facility] (DEFAULT)[address] [place] [address] 11891FJN [Catalytic activity/Vol]20 U/LQlgunr91-73Eduletso HospitalComment on above:Performed By: #### 32601855, 9415357, 4606837613, 8441563462, 4600153221, 6480481374 ####[facility] (DEFAULT)[address] [place] [address] 84062Ggbv Total0.4 mg/dLNormal0.0-2.0 [facility] HospitalComment on above:Performed By: #### 61542812, 9367347, 7158192139, 8625637997, 0718274391, 0796832330 ####[facility] (DEFAULT)[address] [place] [address] 57243Czwkuiq [Mass/Vol]9.0 mg/dL Normal8.9-10.3M[facility] HospitalComment on above:Performed By: #### 75298681, 5789164, 5890662764, 3147574652, 9465475020, 1355507992 ####[facility] (DEFAULT)[address] [place] [address] 38120Qliyqtuo [Moles/Vol]106 mmol/L Ktdbmb888-379Ssrhsadt HospitalComment on above:Performed By: #### 46799057, 1451353, 4020860469, 4234951112, 2828021565, 4861775303 ####[facility] (DEFAULT)[address] [place] [address] 74721SG4 [Moles/Vol]23 mmol/LNormal 21-32[facility] HospitalComment on above:Performed By: #### 90956625, 0376076, 8550260685, 3448838826, 1319647044, 5607773478 ####[facility] (DEFAULT)[address] [place] [address] 68757Cunbwdyedy [Mass/Vol]0.73 mg/dL Normal0.30-1.00[facility] HospitalComment on above:Performed By: #### 06296543, 5600537, 6212845658, 5224708889, 4729556954, 2267664717 ####[facility] (DEFAULT)[address] [place] [address] 40169Zypqjjhh (S) [Mass/Vol]3.3 g/dL Normal1.5-4.3M[facility] HospitalComment on above:Performed By: #### 97893939, 9208185, 5171430390, 6561458197, 7458817319, 8086396342 ####[facility] (DEFAULT)[address] [place] [address] 06988Ruqzdme [Mass/Vol]95.0 mg/dL Yombwj46.0-144.0[facility] HospitalComment on above:Performed By: #### 12034010, 5708060, 3471133632, 8417214600, 2963684674, 2023911810 ####[facility] (DEFAULT)[address] [place] [address] 93690Pwbvuvinhg869 mOsm/LInvalid Interpretation CodeOhiohealth Doctors Hospital HospitalComment on above:Performed By: #### 80768366, 6382191, 9995563613, 5419032854, 4921935380, 4038136348 ####[facility] (DEFAULT)[address] [place] [address] 02408Udaauzhdx [Moles/Vol] 3.5 mmol/LLow3.6-5.1[facility] HospitalComment on above:Performed By: #### 23626681, 1121963, 7181625349, 5826249537, 6400123404, 5053943514 ####[facility] (DEFAULT)[address] [place] [address] 43638Zavgmvy [Mass/Vol]7.8 g/dLNormal6.1-8.0[facility] HospitalComment on above:Performed By: #### 45786545, 8129361, 4296235092, 8328630657, 2746143236, 8330247645 ####[facility] (DEFAULT)[address] [place] [address] 50758Jaqsst [Moles/Vol]135.0 mmol/L Gxf849.0-144.0[facility] HospitalComment on above:Performed By: #### 41350482, 7800876, 0090407574, 0081218408, 7624886144, 6925131027 ####[facility] (DEFAULT)[address] [place] [address] 02848Ktgc nitrogen [Mass/Vol]10 mg/dL Normal8-26[facility] HospitalComment on above:Performed By: #### 56906070, 7169917, 8215110648, 3549684809, 7081256436, 0294876655 ####[facility] (DEFAULT)[address] [place] [address] 88428Mpxr nitrogen/Creatinine [Mass ratio]13.6 mg/mgNormal4.6-16.2M[facility] HospitalComment on above:Performed By: #### 76957925, 9560141, 8477664691, 5586053629, 8737784310, 0337005537 ####[facility] ([facility])[address] [place] [address] 96534OJ Clinical Summaryon 35-59-9922LY [facility] [address] [place] [address] ED Clinical Summary PERSON INFORMATION Name: SHEYLA LEA Age: 17 Years Sex: FEMALE : 2005 MRN: Acct#: Visit Reason: Abdominal pain; ABD PAIN Arrival: 01/06/2023 19:25:17 Discharge: 01/06/2023 20:52:00 LOS: 000 01:27 Check In: 01/06/2023 19:25:17 Checkout:01/06/2023 20:52:00 Address: [address] [place] [address] PCP: KEVIN STOKES PROVIDER INFORMATION Provider Role [...] Home PATIENT EDUCATION INFORMATION Instructions: Constipation, Adult, Ftoi-xt-Rfjw; Abdominal Pain, Adult, Zccf-hc-Jgxk; Abdominal Bloating Follow-Up: With: Address: When: KEVIN STOKES [address] [place] [address] Within 3 to 5 days DIAGNOSIS: 1:Generalized abdominal pain; 2:Constipation Patient Understands: Yes - Patient/family/caregiver verbalizes understanding of instructions given Comment:[facility]ED Patient Summaryon 95-74-8221YE Patient Summary [facility] Emergency Department [address] [place] [address] PATIENT DISCHARGE INSTRUCTIONS Patient Information Name: SHEYLA LEA Age: 17 Years Date of : 2005 [facility]: [id number] Reason For Visit: Abdominal pain; ABD PAIN Arrival Time: 01/06/2023 19:25:17 Primary Care Physician: KEVIN STOKES Attending Physician: Ean Solorzano MD Comment: Visit Diagnosis: Diagnoses This Visit Abdominal pain ([id number]-P5V0-1M1N70LV2YX2) Constipation (K59.00) Generalized abdominal pain (R10.84) The [facility]acy at [facility] is open Wednesday through Wednesday from 9A to 6P and Wednesday and Wednesday from 9A to 5P Prescription Information: If you have been given a prescription for narcotics, seek immediate medical attention if you have any difficulty breathing or any sudden status changes such as confusion andsleepiness. If you or anyone you know is experiencing suicidal thoughts, mental health, alcohol and/or drug addiction problems; contact the [facility] 07/12 Crisis Hotline -Lzxa 7SDKO zs [phone]. If you received any narcotics, sedation, or [...] documents With: Address: When: KEVIN STOKES [address] [place] [address] Within 3 to 5 days Medication Information: The exam and treatment you received today in the [facility] Emergency Department were for an urgent problem and are not intended as complete care. It is important for you to follow up with a doctor, nurse practitioner, or physician?s clinical trial assistant for ongoing care. If your symptoms become worse or you donot improve as expected and you are unable [...] so we can reach you if necessary. [facility] Emergency Department has provided you with a complete list of medications post discharge. Please inform your i&c tech/provider of your visit and for further instruction [...] in fat and sugar, such as: ? Icelandic fries. ? Hamburgers. ? Cookies. ? Candy. ? Soda. ? Drink enough fluid to keep your pee (urine) pale yellow. General instructions ? Exercise regularly or as told by your doctor. Try to do 150 minutes of exercise each week. ? Go to the restroom when you feel like you need to poop. Do not hold it in. ? Take yifo-zfn-djiiicq and prescription medicines only as told by your doctor. These include any fiber supplements. ? When you poop: ? Do deep breathing while relaxing your lower belly (abdomen). ? Relax your pelvic floor. The pe (more content not included)...[facility] HospitalExtra Greenon 32-59-1489Giax CollectedYesInvalid Interpretation Code [facility] HospitalComment on above:Performed By: #### 60749747, 8846708, 6499800033, 9165977740, 9081095372, 0298340782 ####[facility] (DEFAULT)[address] [place] [address] 61629Xcenpfozk Test Urine 1on 01-06-2023U PregNegativeTriHealth Bethesda North HospitalComment on above:Performed By: #### 53287974, 9582916429, 530305780, 3182328 ####[facility] (DEFAULT)[address] [place] [address] 48498X Preg Internal ControlPassTriHealth Bethesda North HospitalComment on above:Performed By: #### 64836108, 6853207382, 592767783, 1070052 ####[facility] (DEFAULT)[address] [place] [address] 76180MG Lnuut3zx 94-64-5735OW BacteriaTraceTriHealth Bethesda North HospitalComment on above:Order Comment: Urinalysis Microscopic order added on by Discern Expert Rules system. Performed By: #### 40561476, 1677257577, 851755085, 4959043 ####[facility] (DEFAULT)[address] [place] [address] 37980DU RBC3-5NoMiddletown HospitalComment on above:Order Comment: Urinalysis Microscopic order added on by Discern Expert Rules system.Performed By: #### 56246067, 8769134255, 371623628, 5876920 ####[facility] (DEFAULT)[address] [place] [address] 37162IM Squam EpiFewCleveland Clinic Akron General HospitalComment on above:Order Comment: Urinalysis Microscopic order added on by [employer] Expert Rules system.Performed By: #### 59511966, 6971691290, 870662133, 0990175 ####[facility] (DEFAULT)[address] [place] [address] 99553FL TRQ40-99UujzhiNrzwdtst HospitalComment on above:Order Comment: Urinalysis Microscopic order added on by Discern Expert Rules system.Performed By: #### 87798796, 8710034221, 204266610, 8439437 ####[facility] (DEFAULT)[address] [place], [place] [address]UA w Culture if Ind Standardon 92-13-2515Ifgstrmqqd UATriHealth Bethesda North Hospital Comment on above:Performed By: #### 09041122, 4806463249, 731782860, 6230215 ####[facility] (DEFAULT)[address] [place] [address] 31279Fspto (U) YellowTriHealth Bethesda North HospitalComment on above:Performed By: #### 66634192, 8666577830, 769834861, 5556823 ####[facility] (DEFAULT)[address] [place] [address] 43606Oqtfpnz?IndicatedInvalid Interpretation [facility] – JacksonComment on above:Result Comment: Result created by rule GL_MAGR_ADD_UA_CULTPerformed By: #### 78792220, 2822589465, 127759912, 0472092 ####[facility] (DEFAULT)[address] [place] [address] 18570Mviiweb (U) [Mass/Vol]NegativeTriHealth Bethesda North HospitalComment on above:Performed By: #### 98904490, 8825908537, 644207713, 6567213 ####[facility] (DEFAULT)[address] [place] [address] 08503Syxchwq Ql (U)NegativeTriHealth Bethesda North Hospital Comment on above:Performed By: #### 63075645, 8186416538, 494450854, 6237639 ####[facility] (DEFAULT)[address] [place] [address] 77039Asjlt? IndicatedInvalid Interpretation CodeMagruder HospitalComment on above:Result Comment: Result created by rule GL_MAGR_ADD_UA_MICRO Result created by rule GL_MAGR_ADD_UA_MICROPerformed By: #### 00559560, 8265420944, 831977838, 2353213 ####[facility] (DEFAULT)[address] [place] [address] 07864GG BilirubinNegativeNormalMagruder HospitalComment on above:Performed By: #### 83843877, 1535824024, 358182871, 1808125 ####[facility] (DEFAULT)[address] [place] [address] 93265KL BloodNegativeNormalNEGATIVEMagruder HospitalComment on above:Performed By: #### 74783585, 5885682004, 853313437, 7142604 ####[facility] (DEFAULT)[address] [place] [address] 09768JA ClarityCLEARNormalCLEARWagrselect medical clevel[facility], beachwood HospitalComment on above:Performed By: #### 65229679, 7439278388, 394077706, 9169074 ####[facility] (DEFAULT)[address] [place] [address] 74971JO Leuk EstSMALLAbnormalNEGATIVEKindred Hospital Daytonuder HospitalComment on above:Performed By: #### 31559502, 0530796263, 805545667, 6150299 ####[facility] (DEFAULT)[address] [place] [address] 55613YG NitriteNegativeNormalNEGATIVEMagruder HospitalComment on above:Performed By: #### 53313177, 1266531130, 132545192, 9753058 ####[facility] (DEFAULT)[address] [place] [address] 80432IC pH7.7Yeliyd2-1Tuisnbkj HospitalComment on above:Performed By: #### 52006844, 9062057551, 774016694, 4902294 ####[facility] (DEFAULT)[address] [place], [place] [address]GM ProteinNegative NormalNEGATIVEPaulding County HospitalComment on above:Performed By: #### 26823728, 7026759518, 651160573, 6846011 ####[facility] (DEFAULT)[address] [place] [address] 28693ZO Spec Grav1.512Zcwzur5.001-1.035[facility] Hospital Comment on above:Performed By: #### 85577798, 9497321601, 315594953, 7102458 ####[facility] (DEFAULT)[address] [place] [address] 16184AH Urobilinogen0.2 mg/dLNormal0.2-1.0[facility] HospitalComment on above:Performed By: #### 02385200, 4009223457, 863293759, 6370162 ####[facility] (DEFAULT)[address] [place] [address] 85823Ylgsb SourceClean CatchNormal [facility] HospitalComment on above:Performed By: #### 29162771, 7771193141, 156614308, 5258793 ####[facility] (DEFAULT)[address] [place] [address] 09919XG Abdomen 2 Viewson 97-41-5122SF Abdomen 2 ViewsExamination: KUB History: Lower abdominal pain Comparison: None [...] Jordi Maciel MD 01/06/23 9:29 pm Technologist: Doctors HospitalCoding Summaryon 75-74-1630Clyeqz Summary HTMLBase 64 NbvlmfvaWZw2vGh+PGhlYWQ+FB0XEJYvA44cqNIbnR2mS6RAOChGFbjxJZEYYHxUJgAmifNqRA7nhJMq ZXJu [file] ZGV (more content not included)...[facility] HospitalED Clinical Summaryon 83-30-7249LJ Clinical SummaryPaulding County Hospital ? Urgent Care [address] [place], [place] [address] Clinical Summary PERSON INFORMATION Name: SHEYLA LEA Age: 17 Years Sex: FEMALE : 2005 MRN: Acct#: Visit Reason: UC - Ear Pain; RT EAR PAIN Arrival: 12/14/2022 18:12:52 Discharge: 12/14/2022 18:47:00 LOS: 000 00:35 Check In: 12/14/2022 18:12:52 Checkout: 12/14/2022 18:47:00 Address: [address] [place] [address] PCP: KEVIN STOKES PROVIDER INFORMATION Provider Role [...] Adult Follow-Up: With: Address: When: KEVIN STOKES [address] [place], [place] [address] DIAGNOSIS: 1:Right otitis media with effusion; 2:Left otitis media Patient Understands: Yes - Patient/family/caregiver verbalizes understanding of instructions given Comment:[facility] HospitalED Patient Summaryon 16-40-7323AO Patient Summary [facility] ? Urgent Care [address] [place] [id number] PATIENT DISCHARGE INSTRUCTIONS Patient Information Name: SHEYLA LEA Age: 17 Years Date of : 2005 Reason For Visit: UC - Ear Pain; RT EAR PAIN Arrival Time: 12/14/2022 18:12:52 Primary Care Physician: KEVIN STOKES Attending Physician: Chetna Rodriguez PA-C Comment: Patient Education With: Address: When: PAMGERMÁNZaidaKEVIN [facility] [place] [id number] Otitis Media With Effusion, Adult Otitis media with effusion (OME) is inflammation and fluid (effusion) in the middle ear without having an ear infection. The middle ear is the space behind the eardrum. The middle ear is connected tothe back of the throat by a narrow [...] signs and symptoms of the condition. Your providerwill also do a physical exam to check [...] weeks. Home care treatment may include: ? Hsih-wju-ialrgkg pain relievers. ? A warm, moist cloth placed over the ear. Severe cases may require a procedure to insert tubes in the ears (tympanostomy tubes) to drain the fluid. Follow these instructions at home: ? Take rfof-ong-jvigrjh and prescription medicines only as told by [...] provider. Document Revised: 08/28/2021 Document Reviewed: 08/28/2021 [employer] Patient Education ? 2022 [employer] Antibiotic Medicine, Adult Antibiotic medicines are used to treat infections caused by bacteria, (more content not included)...[facility] HospitalCNPNon 04-36-5379MIVXPgfjmsovo (ENDOMN) ROLDANSHEYLA DOEWLL ([id number]) 3 F Date Time Provider Department 11/13/22 [...] t*04/15/2022 Encounter Status:Closed by BRAXTON LAMB on 11/13/22[facility] Summaryon 33-09-7601Enlehz SummaryBLUE MOUNTAIN HOSPITALBase 64 FkkqqyyfYYz6nZl+PGhlYWQ+BB4QXARaN63lgUOzbF2uN7KVDKoXAjyfPCOETAuYOoNbtkMrNF3umDZt ZXJu [file] ZGV (more content not included)...[facility] HospitalED Clinical Summaryon [id number] [facility] [address] [place] [address] Clinical Summary PERSON INFORMATION Name: SHEYLA LEA Age: 17 Years Sex: FEMALE : 2005 MRN: Acct#: Visit Reason: Eye problem; UC - Eye Redness; LT EYE PROBLEM Arrival: 10/27/2022 17:44:34 Discharge: 10/27/2022 18:25:00 LOS: 000 00:41 Check In: 10/27/2022 17:44:34 Checkout: 10/27/2022 18:25:00 Address: [address] [place] [address] PCP: KEVIN STOKES PROVIDER INFORMATION Provider Role Assigned Unassigned Power Ny ED PA 10/27/2022 17:45:56 Ellen Mac IT ARCHITECTURE CONSULTANT Nurse 10/27/2022 17:46:07 VITALS INFORMATION Vital Sign Triage Latest Temperature Tympanic Temperature Temporal Artery Pulse Rate O2 Sat 99 % 99 % Respiratory Rate Blood Pressure /72 mmHg /72 mmHg MEDICAL INFORMATION Medications Given: Allergy Information: No Known Medication Allergies PHYSICIAN DOCUMENTATION DISCHARGE INFORMATION: Discharge Disposition: Home Discharge Location: Home PATIENT EDUCATION INFORMATION Instructions: Corneal Abrasion Follow-Up: With: Address: When: KEVIN STOKES [address] [place] [address] [phone] Business (1) Within 3 to 5 days [...] rub eyes. Please follow up with your oncology rep specialist or Dr. Mcclendon's office rafael, please call for an appointment today. Wash hands prior to putting in eyedrops. If any significant blurred vision, worse in anyway return for additional medical care. DIAGNOSIS: Injury of conjunctiva and corneal abrasion without foreign body, left eye, initial encounter Patient Understands: Yes - Patient/family/caregiver verbalizes understanding of instructions given Comment:[facility] HospitalED Patient Summaryon [id number] Patient Summary [facility] ? Urgent Care [address] [place] [address] PATIENT DISCHARGE INSTRUCTIONS Patient Information Name: SHEYLA LEA Age: 17 Years Date of : 2005 Reason For Visit: Eye problem; UC - Eye Redness; LT EYE PROBLEM Arrival Time: 10/27/2022 17:44:34 Primary Care Physician: KEVIN STOKES Attending Physician: Power Ny Comment: Patient Education With: Address: When: KEVIN STOKES [address] [place] [address] [phone] Business (1) Within 3 to 5 days [...] rub eyes. Please follow up with your oncology rep specialist or Dr. Mcclendon's office rafael, please [...] condition may be caused by: ? A shot grinder operator the eye. ? A gritty or irritating [...] in diseases and conditions of the eye (diabetes territory manager). This condition may be diagnosed based on your medical history, symptoms, and an eye exam. Before the eye exam, numbing drops may be put into your eye. You may also have dye put in your eye with a dropper or a small paper strip. The dye makes the abrasion easy to see when your diabetes territory manager examines your eye with a light. Your diabetes territory manager may look at your eye through an [...] you start to feel better. ? Take lird-ixl-cvosvyj and prescription medicines only as told by your health care provider. ? Ask your health care provider if the medicine prescribed to you: ? Requires you to avoid driving or using heavy machinery. ? Can cause constipation. You may need to take these actions to prevent or treat constipation: ? Drink enough fluid to keep your urine pale yellow. ? Take kftc-oku-fwzrjlp or prescription medicines. ? Eat foods that are high in fiber, such as beans, whole grains, and fresh fruits and vegetables. ? Limit foods that are high in fat and processed sugars, such as fried or sweet foods. Eye patch use ? If you have an eye patch, wear i (more content not included)...[facility] HospitalUr[facility] Note- Provideron 70-67-3660Vpivdf Care Note- Provider Patient: SHEYLA LEA Age: [...] and has not noticed any sort of foreignbody. Denies blurred vision, headache, purulence. No h/o [...] been selected or recorded.. Surgical history: Myringotomy ([id number]). History of tonsillectomy ([id number]).. Family history: No family history items have [...] eversion done, Tetracaine applied, Eyelids: Left, upper andlower, erythema, clear watery drainage, mild, clear tearing, pain with blinking is present. Prefersto keep eye shut, Eyelids everted and there [...] was started on Vigamox. Symptoms improved significantly whenshe given 2 (more content not included)...[facility] HospitalUrgent Care Recordon 65-04-8106Gglckd Care [facility] ? Urgent Care [address] [place] [address] PATIENT DISCHARGE INSTRUCTIONS Patient Information Name: SHEYLA LEA Age: 17 Years Date of : 2005 Reason For Visit: Eye problem; UC - Eye Redness; LT EYE PROBLEM Arrival Time: 10/27/2022 17:44:34 Primary Care Physician: KEVIN STOKES Attending Physician: Power Ny Comment: Visit Diagnosis: Diagnoses This Visit Eye problem ([id number]) Injury of conjunctiva and corneal abrasion without foreign body, left eye, initial encounter (S05.02XA) UC - Eye Redness ([id number]) If you received any narcotics, sedation, or [...] legal documents With: Address: When: KEVIN STOKES [address] [place] [address] Business (1) Within 3 to 5 days [...] rub eyes. Please follow up with your oncology rep specialist or Dr. Mcclendon's office rafael, please call for an appointment today. Wash hands prior to putting in eyedrops. If any significant blurred vision, worse in anyway return for additional medical care. Medication Information: The exam and treatment you received today in the [facility] were for an urgent problem and are not intended as complete care. It is important for you to follow up with a doctor, nurse practitioner, or physician?s clinical trial assistant for ongoing care. If your symptoms [...] so we can reach you if necessary. [facility] has provided you with a complete list of medications post discharge. Please inform your i&c tech/provider of your visit and for further instruction on these medications. Any specific questions regarding your chronic medications and dosages should be discussed with your primary care physician(s) and/or pharmacist. New Medications [id number], [address], [place] [id number], [phone] moxifloxacin ophthalmic (Vigamox 0.5% ophthalmic solution) 1 [...] painful. If a c (more content not included)...[facility] HospitalCoding Summaryon 35-21-2286Gslknz SummaryMLBase 64 ObyfdbddASo5bQx+PGhlYWQ+AQ5DUDIdG71qaBYunP4VB2jTAX0OFOHNXSTJCE7NED2ftJD9PYlaS9As biAv [file] ci1 (more content not included)...[facility] HospitalCoding SummaryHTMLBase 64 DpmbptssBLp6tLe+PGhlYWQ+CI6DFNMdP75zrCXpmT1AA2cCWP2SSNMDOUXGFR0RFF3doQT7MOnaN2Gz biAv [file] PSd (more content not included)...[facility] HospitalCoding SummaryHTMLBase 64 LiindfytNQc6xPk+PGhlYWQ+XB2HMKQzB21mpBWilS2CB8eSEG4GOYNZIOEOWQ8YGF6loJN9ONeuT2Hv biAv [file] PSd (more content not included)...[facility] HospitalConsent Formson 83-33-5988Xizyrfg [id number]#1.00OTGTIFFNoal [facility].Auto Diff 1on 99-97-9402Mzsu Beadle %8 %Normal1-12[facility] County HospitalComment on above:Performed By: #### [id number], [id number], 5517800138, 1672831, 3928334, 0806695172, [id number] ####[facility] (DEFAULT)[address] [place], [place] [address]Zzvt Abs#0.0 d68Edcych7.0-0.2M[facility] HospitalComment on above:Performed By: #### [id number], 2213871786, 4622537670, 2473397, 0208695, , ####[facility] (DEFAULT)[address] [place] [address] 97104Rlaauqxho/100 WBC (Bld)1.0 %Normal0.2-2.0 [facility] HospitalComment on above:Performed By: #### [id number], 4857934514, 4460927061, 1757649, 0309222, , ####[facility] (DEFAULT)[address] [place] [address] 19014Epf Abs#0.1 h95Mbyceg4.0-0.4 [facility] HospitalComment on above:Performed By: #### [id number], 6085530977, 2495666118, 5916379, 4540659, , ####[facility] (DEFAULT)[address] [place] [address] 32820Nvyabuhovgi/100 WBC (Bld)2.2 % Normal0.9-4.0[facility] HospitalComment on above:Performed By: #### 02381145, 6843995194, 2912566308, 9683923, 7579445, , ####[facility] (DEFAULT)[address] [place] [address] 72462Tpouu Abs#1.5 v09Adgsrm 1.3-2.9[facility] HospitalComment on above:Performed By: #### 69454676, 4088600197, 8564006344, 9127857, 0857362, , ####[facility] (DEFAULT)[address] [place] [address] 61048Tredoiexycs/100 WBC (Bld)35 %Tcyqgq14-83Dskkyqcb HospitalComment on above:Performed By: #### 59507415, 5059239951, 8134261602, 5850999, 7715082, 8553342822, ####[facility] (DEFAULT)[address] [place] [address] 64986Zypa Abs# 0.4 d50Ycyvha4.0-0.8[facility] HospitalComment on above:Performed By: #### 69029327, 4124758278, 4700861467, 0599920, 2246539, 2926290819, 8027260553 ####[facility] (DEFAULT)[address] [place] [address] 52943Iuom Abs# 2.3 k35Tqpnwe0.5-9.2[facility] HospitalComment on above:Performed By: #### 65999780, 3663791549, 1823907365, 0101042, 8407483, 5045739379, 0506468609 ####[facility] (DEFAULT)[address] [place] [address] 34821 Neutrophils/100 WBC (Bld)54 %Cbnxzw58-42Vexfrlis HospitalComment on above: Performed By: #### 19992100, 3158789363, 1358000452, 9464007, 7989798, 8416354171, 2836936228 ####[facility] (DEFAULT)[address] [place] [address] 895[address]VMI w/ Auto Diffon 87-80-9815Iutqaiulhzv distribution width (RBC) [Ratio]14.7 %Oinfho13.5-15.0[facility] HospitalComment on above:Performed By: #### 11152232, 9661480082, 4444714039, 5448177, 0813572, 8290864777, 5856139100 ####[facility] (DEFAULT)[address] [place] [address] 50545Qswszvofkb (Bld) [Volume fraction]39.8 %Ulwqni27.7-40.4[facility] Comment on above:Performed By: #### 16051933, 8665936840, 5651489024, 9616708, 0889488, 9234691160, 0235344251 ####[facility] (DEFAULT)[address] [place] [address] 27901Oylihsuped (Bld) [Mass/Vol]12.9 g/xPZlroud40.3-15.9 [facility] HospitalComment on above:Performed By: #### 08893631, 7707296663, 9511489861, 7199682, 0991445, 4458997446, ####[facility] (DEFAULT)[address] [place], [place] [address]Man Diff?AutoInvalid Interpretation CodeOhiohealth Doctors Hospital HospitalComment on above:Performed By: #### 89765979, 4421699115, 9260732850, 1676560, 2272807, 9150869196, ####[facility] (DEFAULT)[address] [place], [place] [address]MCH (RBC) [Entitic mass]25 xmVfrzvt40-71Conafnyp HospitalComment on above:Performed By: #### 77852588, 2240294594, 8625632799, 8907412, 0061490, 5807333806, 0968735982 ####[facility] (DEFAULT)[address] [place], [place] [address]HC (RBC) [Mass/Vol]32 g/mAZhhrls25-38Nywamdis HospitalComment on above:Performed By: #### 40524942, 5423089504, 5005572275, 8707961, 0983367, 9584795221, ####[facility] (DEFAULT)[address] [place] [address] 25841ZTI (RBC) [Entitic vol]77 eUFsj12-988Lfyxoico HospitalComment on above:Performed By: #### 24563799, 5912110892, 8194889967, 0706219, 2540144, 7830405129, ####[facility] (DEFAULT)[address] [place] [address] 95663Dscpwsus 254 a07Gjauix351-491Xgikhmfl HospitalComment on above:Performed By: #### 60892086, 5195466554, 3067918123, 8896574, 8391902, 0875123154, 6861346640 ####[facility] (DEFAULT)[address] [place] [address] 03865Ietosvhy mean volume (Bld) [Entitic vol]8.8 fLNormal6.3-10.2[facility] HospitalComment on above:Performed By: #### 72629978, 3818673995, 6722423799, 0790914, 1369204, 6623846180, 2115221983 ####[facility] (DEFAULT)[address] [place] [address] 17342IFJ7.14 a30Ovjvbu2.70-5.30Maselect [facility] HospitalComment on above: Performed By: #### 72794900, 6327853760, 0346132377, 5169166, 9863413, 9613505915, 2077844495 ####[facility] (DEFAULT)[address] [place] [address] 01797VQU0.4 p74Xxpbhu1.5-10.5[facility] HospitalComment on above: Performed By: #### 47208691, 6064091202, 6172197962, 1832482, 7162471, 1285461344, 6660282707 ####[facility] (DEFAULT)[address] [place] [address] 58262YHG Standardon 28-09-7571hRGA Non AA>60Invalid Interpretation CodeOhiohealth Doctors Hospital HospitalComment on above:Performed By: #### 99300933, 2786560070, 0416312548, 9120941, 2936546, 5894856090, 7851013160 ####[facility] (DEFAULT)[address] [place] [address] 00719uXEO AA>60Invalid Interpretation CodeOhiohealth Doctors Hospital HospitalComment on above:Performed By: #### 05019705, 3155064826, 4240973445, 4182706, 9335973, 1446745921, 3382211133 ####[facility] (DEFAULT)[address] [place] [address] 72459Hobvavi [Mass/Vol]4.5 g/dLNormal 3.5-5.0[facility] HospitalComment on above:Performed By: #### 43832622, 4553866696, 6361228670, 4078821, 3085688, 2836237289, 8693183755 ####[facility] (DEFAULT)[address] [place] [address] 55520Ien Phos70 IU/LNormal 32-91[facility] HospitalComment on above:Performed By: #### 28708811, 3863523243, 7527656737, 4309977, 1704621, 1525826323, ####[facility] (DEFAULT)[address] [place] [address] 15701UQY [Catalytic activity/Vol]20.0 U/LNormal8.0-29.0[facility] HospitalComment on above:Performed By: #### 69217721, 2274752109, 9946143878, 5280454, 8519786, , ####[facility] (DEFAULT)[address] [place] [address] 19373QIN [Catalytic activity/Vol]19 U/MNwlgai63-00Zkpzizgt HospitalComment on above:Performed By: #### 29900874, 8601447605, 0131717406, 3612539, 9279988, , ####[facility] (DEFAULT)[address] [place] [address] 86280Srof Total 0.7 mg/dLNormal0.0-2.0[facility] HospitalComment on above:Performed By: #### 51043081, 0385621971, 5794365405, 2782628, 2603212, , ####[facility] (DEFAULT)[address] [place] [address] 29525Enwcegp [Mass/Vol]9.1 mg/dLNormal8.9-10.3[facility] HospitalComment on above:Performed By: #### 25243253, 9426719083, 3000301707, 7875216, 3570647, 8942400380, ####[facility] (DEFAULT)[address] [place] [address] 12308Iqdxjzpm [Moles/Vol]105 mmol/ZVomfuw184-045Bljjvwwa HospitalComment on above:Performed By: #### 90740047, 0937684149, 5478641234, 5415122, 5675141, , ####[facility] (DEFAULT)[address] [place] [address] 77791HZ9 [Moles/Vol]23 mmol/ZUjydal66-03Lgwshvns HospitalComment on above: Performed By: #### 70198531, 7257994958, 8166663232, 8459096, 3745603, , ####[facility] (DEFAULT)[address] [place] [address] 21435Xlasqhtmrf [Mass/Vol]0.64 mg/dLNormal0.30-1.00[facility] Comment on above:Performed By: #### 12112952, 0654283909, 0133926205, 3631754, 1261789, 7638599326, ####[facility] (DEFAULT)[address] [place] [address] 02228Ecwhyzx [Mass/Vol]92.0 mg/eERiyigy36.0-144.0[facility] HospitalComment on above:Performed By: #### 85902741, 9019226547, 2802108230, 0166989, 2584820, , ####[facility] (DEFAULT)[address] [place] [address] 08608Dpwdeiroo [Moles/Vol]3.5 mmol/LLow3.6-5.1 [facility] HospitalComment on above:Performed By: #### 37677335, 9746114383, 9803418964, 2126568, 4874472, 6759751419, ####[facility] (DEFAULT)[address] [place] [address] 30089Ffjquvj [Mass/Vol]8.0 g/dLNormal 6.1-8.0[facility] HospitalComment on above:Performed By: #### 14228485, 8142873806, 8346709090, 9262985, 3447109, 6996139686, ####[facility] (DEFAULT)[address] [place] [address] 90522Aiyzwm [Moles/Vol]133.0 mmol/RMxp012.0-144.0[facility] HospitalComment on above:Performed By: #### 73567051, 1927735536, 2347929174, 1733469, 9399949, 4335821653, ####[facility] (DEFAULT)[address] [place] [address] 24154Iamk nitrogen [Mass/Vol]10 mg/dLNormal8-26[facility] HospitalComment on above:Performed By: #### 71418883, 4051071406, 4628762451, 6156442, 8660697, , ####[facility] (DEFAULT)[address] [place] [address] 50518Bucksjd/Globulin [Mass ratio]1.2 {ratio}Low1.4-2.6[facility] HospitalComment on above:Performed By: #### 11994253, 3265554230, 0409436965, 1150454, 8573637, , ####[facility] (DEFAULT)[address] [place] [address] 21721Narez gap [Moles/Vol]8.5 mmol/LNormal5.0-19.0[facility] Hospital Comment on above:Performed By: #### 25916338, 8408117935, 5725595151, 6550374, 3849900, 4905028540, ####[facility] (DEFAULT)[address] [place] [address] 99914Zozzhllr (S) [Mass/Vol]3.5 g/dLNormal1.5-4.3[facility] HospitalComment on above:Performed By: #### 86785498, 2747661942, 9644645378, 6105734, 4239839, 5100980685, ####[facility] (DEFAULT)[address] [place] [address] 33622Plbsryrbqv538 mOsm/LInvalid Interpretation CodeOhiohealth Doctors Hospital HospitalComment on above:Performed By: #### 63638211, 3639567816, 5112540833, 2682317, 4817453, 6934176373, 8142220040 ####[facility] (DEFAULT)[address] [place] [address] 84103Xibf nitrogen/Creatinine [Mass ratio]15.6 mg/mgNormal4.6-16.2MVeterans Health AdministrationComment on above:Performed By: #### 75764827, 8607825932, 5243726229, 7360299, 6367155, 0081470383, 9414480852 ####[facility] (DEFAULT)[address] [place] [address] 77222ZPFcb 82-68-1378NAS8.6 mg/dLHigh<=0.5[facility] HospitalComment on above:Performed By: #### 96442236, 2988030290, 6670347205, 5520446, 9175035, 6440618079, 1083526038 ####[facility] (DEFAULT)[address] [place] [address] 29584KF Abdomen/Pelvis w/ Contraston 47-60-5458DO Abdomen/Pelvis w/ ContrastEXAMINATION: CT Abdomen/Pelvis w/ Contrast, 07/31/2022 12:12 PM [...] Azar Sellers MD 07/31/22 12:29 p Technologist: AROLDO JIBethesda North HospitalComment on above:Order Comment: IV onlyED Clinical Summaryon [id number] Clinical [facility] Emergency Department [address] [place] [address] ED Clinical Summary PERSON INFORMATION Name: SHEYLA LEA Age: 17 Years Sex: FEMALE : 2005 MRN: Acct#: Visit Reason: Abdominal pain; ABD PAIN Arrival: 07/31/2022 11:11:49 Discharge: 07/31/2022 13:07:00 LOS: 000 01:56 Check In: 07/31/2022 11:11:49 Checkout:07/31/2022 13:07:00 Address: [address] [place] [address] PCP: KEVIN STOKES PROVIDER INFORMATION Provider Role Assigned Unassigned KATHLEEN LUNDBERG ED PA 07/31/2022 11:14:51 Gila Solis IT ARCHITECTURE CONSULTANT Nurse 07/31/2022 11:22:38 VITALS INFORMATION Vital Sign [...] the last week. She states she experiences thismostly at nighttime when she is ready to go to bed, states this does cause her to vomit a few timesover the last week. She denies food making a difference with pain and states this has been constantevery night sometimes in the morning. She states she is having pain in the right lower quadrant of her abdomen at this time. She denies any fevers, chest pains, shortness of breath, denies any issueswith bowels or bladder, states she does have [...] - pharynx pink and moist. NECK: -Supple (azxv-ip-oyqjd): non-tender. CARD: -Rate and rhythm: Regular -Edema: [...] of abdomen pelvis, patient was in agreement. Patient'sblood work shows sodium of 133 with potassium of 3.5, CRP is very mildly elevated at 0.6, (more content not included)...[facility] HospitalED Note - Physicianon [id number] Note - PhysicianPatient: SHEYLA LEA Age: 17 years Sex: FEMALE [...] the last week. She states she experiences thismostly at nighttime when she is ready to go to bed, states this does cause her to vomit a few timesover the last week. She denies food making a difference with pain and states this has been constantevery night sometimes in the morning. She states she is having pain in the right lower quadrant of her abdomen at this time. She denies any fevers, chest pains, shortness of breath, denies any issueswith bowels or bladder, states she does have [...] - pharynx pink and moist. NECK: -Supple (foze-yk-lhnlj): non-tender. CARD: -Rate and rhythm: Regular -Edema: [...] of abdomen pelvis, patient was in agreement. Patient'sblood work shows sodium of 133 with potassium [...] IU/L ALT/SGPT 20.0 IU/L (more content not included)...[facility] HospitalED Patient Summaryon 90-75-8310OG [facility] - [facility] [address] [place] [address] PATIENT DISCHARGE INSTRUCTIONS Patient Information Name: SHEYLA LEA Age: 17 Years Date of : 2005 Reason For Visit: Abdominal pain; ABD PAIN Arrival Time: 07/31/2022 11:11:49 Primary Care Physician: KEVIN STOKES Attending Physician: Ean Solorzano MD Comment: Visit Diagnosis: Diagnoses This Visit Abdominal pain ([id number]) Abdominal pain (R10.9) Elevated blood pressure reading (R03.0) The Pharmacy at [facility] is open Wednesday through Wednesday from 9A to 6P and Wednesday and Wednesday from 9A to 5P Prescription Information: If you have been given a prescription for narcotics, seek immediate medical attention if you have any difficulty breathing or any sudden status changes such as confusion andsleepiness. If you or anyone you know is experiencing suicidal thoughts, mental health, alcohol and/or drug addiction problems; contact the [facility] 07/12 Crisis Hotline -Text 8KLGA po 275881. If you received any narcotics, sedation, or [...] legal documents With: Address: When: KEVIN STOKES [address] [place], [place] [id number] Business (1) Within 2 to 4 days [...] and treatment you received today in the [facility] Emergency Department were for an urgent problem and are not intended as complete care. It is important for you to follow up with a doctor, nurse practitioner, or physician?s clinical trial assistant for ongoing care. If your symptoms become worse or you donot improve as expected and you are unable [...] so we can reach you if necessary. [facility] has provided you with a complete list of medications post discharge. Please inform your i&c tech/provider of your visit and for further instruction [...] from the heart throughout (more content not included)...[facility] 79-78-7703Rmaq CollectedYesInvalid Interpretation [facility] – JacksonComment on above:Performed By: #### [id number], [id number], 0885818874, 3255201, 0881776, 4226913442, [id number] ####[facility] (DEFAULT)[address] [place] [address] 34550Ykabe Redon 69-28-3425Avgi CollectedYes Invalid Interpretation CodePaulding County HospitalComment on above:Performed By: #### [id number], [id number], [id number], [id number], [id number], [id number], [id number] ####[facility] (DEFAULT)[address] [place] [address] 30289Qnawxz Acidon 01-80-7054Hzvbes Acid6.5 mg/dLNormal4.5-19.8Paulding County HospitalComment on above:Performed By: #### [id number] ####[facility] (DEFAULT)[address] [place] [address] 33334Eijddswld Test Urine 1on 07-31-2022U PregNegative NormalPaulding County HospitalComment on above:Performed By: #### [id number], [id number], [id number] #### [facility] (DEFAULT) [address] [place] [address] 52495R Preg Internal ControlPassNoMiddletown HospitalComment on above:Performed By: #### [id number], [id number], [id number] #### [facility] (DEFAULT) [address] [place] [address] 09903RA Ytegz0wz 91-77-8481SW BacteriaNoneNormCleveland Clinic FoundationComment on above:Order Comment: Urinalysis Microscopic order added on by [employer] Expert Rules system.Performed By: #### [id number], [id number], [id number] #### [facility] (DEFAULT) [address] [place] [address] 32593RW RBC0-2NormalOhiohealth Doctors Hospital HospitalComment on above:Order Comment: Urinalysis Microscopic order added on by [employer] Expert Rules system. Performed By: #### [id number], [id number], [id number] #### [facility] (DEFAULT) [address] [place] [address] 61661SE Squam EpiRareNormalMagruder HospitalComment on above: Order Comment: Urinalysis Microscopic order added on by [employer] Expert Rules system.Performed By: #### [id number], [id number], [id number] #### [facility] (DEFAULT) [address] [place] [address] 54504WT WBCNone SeenTriHealth Bethesda North HospitalComment on above: Order Comment: Urinalysis Microscopic order added on by [employer] Expert Rules system.Performed By: #### [id number], [id number], [id number] #### [facility] (DEFAULT) [address] [place] [address] 69564EP w Culture if Ind Standardon 53-76-4031Apqzkyovpy UA [facility] Bethesda North HospitalComment on above:Performed By: #### [id number], [id number], [id number] #### [facility] (DEFAULT) [address] [place] [address] 68664Wrhwb (U)YellowTriHealth Bethesda North HospitalComment on above: Performed By: #### [id number], [id number], [id number] #### [facility] (DEFAULT) [address] [place] [address] 62330Pwjznrh?NoNormalPaulding County HospitalComment on above:Result Comment: Result created by rule GL_MAGR_ADD_UA_CULT Result created by rule GL_MAGR_ADD_UA_CULT1Performed By: #### [id number], [id number], [id number] #### [facility] (DEFAULT) [address] [place] [address] 28844Jksheon (U) [Mass/Vol]NegativeTriHealth Bethesda North Hospital Comment on above:Performed By: #### [id number], [id number], [id number] #### [facility] (DEFAULT) [address] [place] [address] 95350Kktsvtr Ql (U)NegativeTriHealth Bethesda North HospitalComment on above:Performed By: #### [id number], [id number], [id number] #### [facility] (DEFAULT) [address] [place] [address] 35120Hurtz?IndicatedInvalid Interpretation CodeMagruder HospitalComment on above:Result Comment: Result created by rule GL_MAGR_ADD_UA_MICROPerformed By: #### [id number], [id number], [id number] #### [facility] (DEFAULT) [address] [place] [address] 00501HN BilirubinNegativeNormalMagruder HospitalComment on above:Performed By: #### [id number], [id number], [id number] #### [facility] (DEFAULT) [address] [place] [address] 47548HT BloodSMALLAbnormalNEGATIVEMagruder HospitalComment on above:Performed By: #### [id number], [id number], [id number] #### [facility] (DEFAULT) [address] [place] [address] 00915ON ClarityCLEARNormalCLEARMagruder HospitalComment on above:Performed By: #### [id number], [id number], [id number] #### [facility] (DEFAULT) [address] [place] [address] 29080XA Leuk EstNegativeNormalNEGATIVEMagruder HospitalComment on above:Performed By: #### [id number], [id number], [id number] #### [facility] (DEFAULT) [address] [place] [address] 61186ZT NitriteNegativeNormalNEGATIVEMagruder HospitalComment on above:Performed By: #### [id number], [id number], [id number] #### [facility] (DEFAULT) [address] [place] [address] 30300YU pH7.4Ycfuaw6-6Rysibfng HospitalComment on above: Performed By: #### [id number], [id number], [id number] #### [facility] (DEFAULT) [address] [place] [address] 43277AJ ProteinNegativeNormalNEGATIVEMagruder HospitalComment on above:Performed By: #### [id number], [id number], [id number] #### [facility] (DEFAULT) [address] [place], [place] [address]TB Spec Grav1.759Hfmdus6.001-1.035Paulding County HospitalComment on above:Performed By: #### [id number], [id number], [id number] #### [facility] (DEFAULT) [address] [place] [address] 38635DB Urobilinogen0.2 mg/dLNormal0.2-1.0[facility] Comment on above:Performed By: #### [id number], [id number], [id number] #### [facility] (DEFAULT) [address] [place] [address] 47213Soevz SourceClean CatchTriHealth Bethesda North HospitalComment on above:Performed By: #### [id number], [id number], [id number] #### [facility] (DEFAULT) [address] [place] [address] 29487Akaqlc Summaryon 00-75-3894Eusqry SummaryHTMLBase 64 UrwvhzjkNWl1eSu+PGhlYWQ+PC1WMQFgI99ibOXixZ2TQ4gAXN4CDQDDNSOSXP1ISD8yoJS4GBcmS2Jh biAv [file] ci1 (more content not included)...[facility]da North HospitalED Clinical Summaryon 44-90-0420BA Clinical [facility] ? Urgent Care [address] [place], [place] [address] Clinical Summary PERSON INFORMATION Name: SHEYLA LEA Age: 17 Years Sex: FEMALE : 2005 MRN: Acct#: Visit Reason: Ear pain; BI LAT EAR PAIN, FEVER Arrival: 07/08/2022 10:52:39 Discharge: 07/08/2022 11:26:00 LOS: 000 00:34 Check In: 07/08/2022 10:52:39 Checkout: 07/08/2022 11:26:00 Address: [address] [place] [address] PCP: KEVIN STOKES PROVIDER INFORMATION Provider Role Assigned Unassigned Arvind Doherty PA-C ED PA 07/08/2022 10:58:02 Levy Bee ED PA 07/08/2022 10:58:39 07/08/2022 10:58:42 Zara Fleming IT ARCHITECTURE CONSULTANT Nurse 07/08/2022 11:09:15 VITALS INFORMATION Vital Sign Triage Latest Temperature Tympanic Temperature Temporal Artery Pulse Rate O2 Sat 99 % 99 % Respiratory Rate Blood Pressure /60 mmHg /60 mmHg MEDICAL INFORMATION Medications Given: Allergy Information: No Known Medication Allergies PHYSICIAN DOCUMENTATION DISCHARGE INFORMATION: Discharge Disposition: Home Discharge Location: Home PATIENT EDUCATION INFORMATION Instructions: Otitis Media, Adult, Qgrs-uq-Tlda Follow-Up: With: Address: When: KEVIN STOKES [address] [place], [place] [phone] Business (1) Within 5 to 7 days DIAGNOSIS: Bilateral otitis media Patient Understands: Yes - Patient/family/caregiver verbalizes understanding of instructions given Comment:[facility] North HospitalED Patient Summary 70-67-3016SF Patient Summary [facility] [address] [place], [place] [address] PATIENT DISCHARGE INSTRUCTIONS Patient Information Name: SHEYLA LEA Age: 17 Years Date of : 2005 Reason For Visit: Ear pain; BI LAT EAR PAIN, FEVER Arrival Time: 07/08/2022 10:52:39 Primary Care Physician: KEVIN STOKES Attending Physician: Levy Bee Comment: Patient Education With: Address: When: KEVIN DIVYA [address] [place], [place] [phone] Business (1) Within 5 to 7 days [...] Follow these instructions at home: ? Take ingr-tgd-vtnbupn and prescription medicines only as told by [...] provider. Document Revised: 08/11/2021 Document Reviewed: 08/11/2021 [email or web address] Patient Education ? 2021 [employer]. Medication Information: The exam and treatment you received today in the [facility] Emergency Department were for an urgent problem and are not intended as complete care. It is important for you to follow up with a doctor, nurse practitioner, or physician?s clinical trial assistant for ongoing care. If your symptoms become worse or you donot improve as expected and you are unable [...] sure you have provided (more content not included)...[facility] North HospitalUrgent Care Note- Provideron 75-91-7347Rkrgvd Care Note- ProviderPatient: SHEYLA LEA Age: 17 years Sex: FEMALE [...] a history of PE tubes and ear infections,but none in the past couple of years. This reminds her of that, however. Health Status Allergies: Allergic Reactions (Selected) No Known Medication Allergies. Medications: (Selected) Documented Medications Documented Nexplanon 68 mg subcutaneous implant: 68 mg = 1 EA, SubQ. Past Medical/ Family/ Social History Medical history: No active or resolved past medical history items have been selected or recorded.. Surgical history: Myringotomy ([id number]). History of tonsillectomy ([id number]).. Family history: No family history items have [...] Impression and Plan Diagnosis Bilateral otitis media (IKN87-XN H66.93, Discharge, Medical) Plan Condition: Stable. Disposition: Discharged: Time 07/08/2022 11:20:00, to home. Prescriptions: Launch prescriptions Pharmacy: amoxicillin-clavulanate 875 mg-125 mg oral tablet (Prescribe): 1 tab(s), PO, q12hr, for 10 day(s), 20 tab(s), 0 Refill(s). Patient was given the following educational materials: Otitis Media, Adult, Ieru-hu-Uyno, Otitis Media, Adult, Nfrp-pw-Ggbn. Follow up with: KEVIN STOKES Within 5 to 7 days. Counseled: Patient, Regarding diagnosis, Regarding treatment plan, Regarding prescription, Patient indicated understanding of instructions. Orders: Launch Orders Miscellaneous Request: Excuse from Work/School (Order): 07/08/2022 11:21 EST, No work or school today.. [Electronically Signed on: 07/08/2022 11:28 EST] Arvind Doherty PA-C [Verified on: 07/08/2022 11:28 EST] Arvind DohertyWadsworth-Rittman HospitalUrgent Care Recordon 91-84-4343ZbjtvnFranciscan Health ? Urgent Care [address] [place] [address] PATIENT DISCHARGE INSTRUCTIONS Patient Information Name: SHEYLA LEA Age: 17 Years Date of : 2005 Reason For Visit: Ear pain; BI LAT EAR PAIN, FEVER Arrival Time: 07/08/2022 10:52:39 Primary Care Physician: KEVIN STOKES Attending Physician: Levy Bee Comment: Visit Diagnosis: Diagnoses This Visit Bilateral otitis media (H66.93) Ear pain ([id number]) If you received any narcotics, sedation, or [...] documents With: Address: When: KEVIN STOKES [address] [place] [address] [phone] Business (1) Within 5 to 7 days Medication Information: The exam and treatment you received today in the [facility] were for an urgent problem and are not intended as complete care. It is important for you to follow up with a doctor, nurse practitioner, or physician?s clinical trial assistant for ongoing care. If your symptoms [...] so we can reach you if necessary. [facility] has provided you with a complete list of medications post discharge. Please inform your i&c tech/provider of your visit and for further instruction on these medications. Any specific questions regarding your chronic medications and dosages should be discussed with your primary care physician(s) and/or pharmacist. New Medications [id number], [address], [place] [id number], [phone] amoxicillin-clavulanate (amoxicillin-clavulanate 875 mg-125 mg oral tablet) [...] an opening in the (more content not included)...NormalMagruder HospitalUS NECK (POC) HNI USE ONLYon 49-97-9814Oqbcyoxbb ClinicUS THYROID/PARATHYROIDon 60-99-4306AO THYROID/PARATHYROID* * *Final Report* * * DATE OF EXAM: Apr 19 2022 8:15AM [facility] 1048 - US THYROID/PARATHYROID / PROCEDURE REASON: [...] 2 points Echogenicity: Hypoechoic, 2 points Shape: Lijhq-bwcu-jexx, 0 points Margin: Lobulated or irregular, 2 [...] WHICH MAY REPRESENT UNDERLYING DIFFUSE THYROID DISEASE. Occ Therapist: NIKO Transcribe Date/Time: Dec 4 2022 8:34A Dictated by : UMU WHITAKER MD This examination was interpreted and the report reviewed and electronically signed by: UMU WHITAKER MD on Apr 19 2022 8:40AM EST [id number] Mental Health CenterClewilson memorial hospital ClinicCholesterol in LDL Direct assay [Mass/Vol]on 04-57-8335Gjalvtgsbin in LDL [Mass/Vol]95 mg/dLNormal <110Avon HospitalComment on above:Order Comment: Specimen Type: BLOOD SPECIMEN Ordering Facility: [facility] Address: [address] [place], [place] [address]Result Comment: <110 mg/dL, Acceptable 110-129 mg/dL, Borderline high >129 mg/dL, HighPerformed By: #### HDL1, 59393-2, 3016-3 #### [facility] CLIA [id number] [facility] [place] [address] [place] AMERICACholesterol in LDL [Mass/Vol]95 mg/dL<110 mg/dLSamaritan HospitalHDL CHOLESTEROL BLDon 60-24-3114Sgmmmxxbiml in HDL [Mass/Vol]42 mg/dLLow>45Avon HospitalComment on above:Order Comment: Specimen Type: BLOOD SPECIMEN Ordering Facility: [facility] Address: [address] [place], [place] [address] Comment: >45 mg/dL, Acceptable 40-45 mg/dL, Borderline <40 mg/dL, Low Reference: 1. Expert Panel on Integrated Guidelines for Cardiovascular Health and Risk Reduction in Children and Adolescents: National Heart, Lung and Blood [place]. Pediatrics. 2011: 128(Suppl 5):Q105-838.Performed By: #### HDL1, 39414-8, 3016- 3 #### [facility] CLIA [id number] [facility] [place] [address] [place] AMERICACholesterol in HDL [Mass/Vol]42 mg/dLLow >45 mg/dLSamaritan HospitalHbA1c (Bld)on 28-40-6277Tpkwmzx glucose Estimated from glycated hemoglobin (Bld) [Mass/Vol]94 mg/dLSamaritan HospitalHbA1c (Bld) [Mass fraction]4.9 %4.3 - 5.6 %[facility] glucose Estimated from glycated hemoglobin (Bld) [Mass/Vol]94 mg/dLSaint Elizabeth EdgewoodComment on above:Order Comment: Specimen Type: BLOOD SPECIMEN Ordering Facility: [facility] Address: [address] [place], [place] [address] Comment: eAG: (Estimated average glucose) is a calculated value from HgbA1c and is representa tive of the average blood glucose level in the last 2-3 month period.Performed By: #### 43409-3 #### [facility] [place] [id number] [address] [place] [address] [place] JMNERASNcE7w (Bld) [Mass fraction] 4.9 %Normal4.3-5.6ASteward Health Care SystemComment on above:Order Comment: Specimen Type: BLOOD SPECIMEN Ordering Facility: [facility] Address: [address] [place] [address]Result Comment: Stateless Diabetes Association guidelines indicate that patients with HgbA1c in the range 5.7-6.4% are at increased risk for development of diabetes, and intervention by lifestyle modification may be beneficial. HgbA1c greater or equal to 6.5% is considered diagnostic of diabetes.Performed By: #### 80066-8 #### [facility] [place] [id number] [address] [place] [address] [place] OF AMERICAT4 FREE/FREE THYROXon 19-43-2870Jqxr T4 [Mass/Vol]1.1 ng/dL0.8 - 1.5 ng/dLSamaritan HospitalT Free SerPl-mCncon 10-62-8075Igwy T4 [Mass/Vol]1.1 ng/dLLiberty Hospitalal0.8-1.5ASteward Health Care System Comment on above:Order Comment: Specimen Type: BLOOD SPECIMEN Ordering Facility: [facility] Address: [address] [place], [place] [address]Performed By: #### 3024-7 #### [facility] [place] [id number] [address] [place], [place] [address] [facility] BLDon 65-10-5126MLE Qn 1.950 m[IU]/L0.510 - 4.300 mIU/LCKettering Health – [facility] SerPl-aCncon 46-47-4224UAN Qn1.950 m[IU]/LNormal0.510-4.300Jonesboro HospitalComment on above:Order Comment: Specimen Type: BLOOD SPECIMEN Ordering Facility: [facility] Address: [address] [place] [address] [place] [address]Uqphvv Comment: If the patient is , TSH reference range varies by gestational period: First Trimester (weeks 9-12): 0.180-2.990 mIU/L Second Trimester: 0.110-3.980 mIU/L Third Trimester: 0.480-4.710 mIU/L Jose Fisher et al. A Practical Approach for the Verifications and Determination of Site- and Trimester-Specific Reference Intervals for Thyroid Function tests in . Thyroid, 2019:29:3:412-420.Loc Haddad, et al. 2017 Guidelines of the Stateless Thyroid Association for the Diagnosis and Management of Thyroid Disease during and the . Thyroid, 2017:27:3:315-389. Reference ranges were not locally established for this patient's age group. The normal values are based on the following source: Jayla W, Tim Elam. Reference Ranges for Adults and Children: Pre-analytical Considerations. [employer] DiagnosticsPerformed By: #### HDL1, 82610-5, 3016-3 #### [facility] CLIA [id number] [facility] [place] [address] [facility]–MONTGOMERYCoding Summaryon 73-00-9346Ugsjrj Summary HTMLBase 64 QvinemuzTDf4kRp+PGhlYWQ+SH3NLNPnM60hmFBhqR4PV0zZSL3RKLRRBFKKXK4SQT2nhOF2XRhhC2Lb biAv [file] ci1 (more content not included)...[facility] HospitalED Clinical Summaryon 74-67-2566YZ Clinical [facility] ? Urgent Care [address] [place] [address] Clinical Summary PERSON INFORMATION Name: SHEYLA LEA Age: 16 Years Sex: FEMALE : 2005 MRN: Acct#: Visit Reason: UC - Ankle/Foot/Toe Pain or Swelling; UC - Foot/Toe Injury; RT FOOT PAIN Arrival: 02/19/2022 19:02:05 Discharge: 02/19/2022 20:18:00 LOS: 000 01:16 Check In: 02/19/2022 19:02:05 Checkout: 02/19/2022 20:18:00 Address: [address] [place] [address] PCP: KEVIN STOKES PROVIDER INFORMATION Provider Role Assigned Unassigned Ellen Mac IT ARCHITECTURE CONSULTANT Nurse 02/19/2022 19:06:02 Estela PA, Levy ED PA 02/19/2022 19:16:21 VITALS INFORMATION [...] Follow-Up: With: Address: When: KEVIN STOKES [address] [place] [address] [phone] Business (1) Comments: Radiologist interpretation of the [...] pain continues recommended to follow-up with your reporting specialist or can follow-up with our local reporting specialist Dr. Ramírez's office is located at [address] [place] [address] [phone] Continue on the acronym R.I.C.E. Rest, Ice Compression, Elevation this will help with pain Can ice for 15-20 minutes every 3 hours Can take 600mg of motrin/ibuprofen every 6-8 hours DIAGNOSIS: Ankle pain; Foot pain Patient Understands: Yes - Patient/family/caregiver verbalizes understanding of instructions given Comment:[facility] HospitalED Patient Summaryon 15-28-2232ED Patient Summary [facility] ? Urgent Care [address] [place] [address] PATIENT DISCHARGE INSTRUCTIONS Patient Information Name: SHEYLA LEA Age: 16 Years Date of : 2005 Reason For Visit: UC - Ankle/Foot/Toe Pain or Swelling; UC - Foot/Toe Injury; RT FOOT PAIN Arrival Time: 02/19/2022 19:02:05 Primary Care Physician: KEVIN STOKES Attending Physician: Levy Bee Comment: Patient Education With: Address: When: KEVIN DIVYA [address] [place], [place] [phone] Business (1) Comments: Radiologist interpretation of the [...] pain continues recommended to follow-up with your reporting specialist or can follow-up with our local reporting specialist Dr. Ramírez's office is located at [address] [place] [address] Continue on the acronym R.I.C.E. Rest, Ice [...] clean and dry. General instructions ? Take btia-iff-cvfmzft and prescription medicines only as told by [...] provider. Document Revised: 08/06/2021 Document Reviewed: 08/06/2021 [email or web address] Patient Education ? 2021 [email or web address] Ankle Pain The ankle joint holds [...] to move your an (more content not included)...[facility] Note- Provideron 84-34-6590Hltysx Care Note- ProviderPatient: SHEYLA LEA Age: 16 years Sex: FEMALE : 2005 Associated Diagnoses: Ankle pain; Foot pain Author: Levy Bee Basic Information Time seen: Date & time 02/19/2022 19:06:00. History source: Patient. History limitation: None. History of Present Illness Patient is a 16-year-old female complaint of right foot and ankle pain. States he jumped during christianity today and landed awkwardly on her foot [...] been selected or recorded.. Surgical history: Myringotomy ([id number]). History of tonsillectomy ([id number]).. Family history: No family history items have [...] crutches. School note provided for tomorrow per mom'srequest. MSPS intact, capillary refill less than 2 seconds, full flexion and full extension intact pre and post Evon wrap. Impression and Plan Diagnosis Ankle pain (NGA18-SE M25.579, Discharge, Medical) Foot pain (ZVI87-TU M79.673, Discharge, Medical) Plan Patient was given the following educational materials: Ankle Pain, Foot Pain, Foot Pain, Ankle Pain, Foot Pain, Ankle Pain. Follow up with: KEVIN STOKES, KEVIN STOKES Radiologist interpretation of the x-rays negative for fracture or dislocation If the pain continues recommended to follow-up with your reporting specialist or can follow-up with our local reporting specialist Dr. Ramírez's office is located at [address] [place] [address] There is no obvious fracture or deformity on review the x-ray today. Official radiological interpretation will be available in the next 24-36 hours you will be notified of any discrepancy in the interpretation. No weightbearing for the next 2 days, can then slowly b (more content not included)...[facility] HospitalUrge Care [place] 79-56-8784SkucwpFranciscan Health ? Urgent Care [address] [place] [address] PATIENT DISCHARGE INSTRUCTIONS Patient Information Name: SHEYLA LEA Age: 16 Years Date of : 2005 Reason For Visit: UC - Ankle/Foot/Toe Pain or Swelling; UC - Foot/Toe Injury; RT FOOT PAIN Arrival Time: 02/19/2022 19:02:05 Primary Care Physician: KEVIN STOKES Attending Physician: Levy Bee Comment: Visit Diagnosis: Diagnoses This Visit Ankle pain (M25.579) Foot pain (M79.673) UC - Ankle/Foot/Toe Pain or Swelling ([id number]) UC - Foot/Toe Injury ([id number]-3335D9L44Y5P) If you received any narcotics, sedation, or [...] legal documents With: Address: When: KEVIN STOKES [address] [place] [address] Business (1) Comments: Radiologist interpretation of the [...] pain continues recommended to follow-up with your reporting specialist or can follow-up with our local reporting specialist Dr. Ramírez's office is located at [address] [place] [address] Continue on the acronym R.I.C.E. Rest, Ice Compression, Elevation this will help with pain Can ice for 15-20 minutes every 3 hours Can take 600mg of motrin/ibuprofen every 6-8 hours Medication Information: The exam and treatment you received today in the [facility] were for an urgent problem and are not intended as complete care. It is important for you to follow up with a doctor, nurse practitioner, or physician?s clinical trial assistant for ongoing care. If your symptoms [...] so we can reach you if necessary. [facility] has provided you with a complete list of medications post discharge. Please inform your i&c tech/provider of your visit and for further instruction [...] activities are safe fo (more content not included)...[facility] HospitalXR Ankle Complete Righton 41-37-4589VM Ankle Complete RightX-RAY OF THE right ankle HISTORY: fall today [...] Tavo Bynum MD 02/19/22 7:53 pm Technologist: [facility]XR Foot Complete Righton 66-98-4410RQ Foot Complete RightX-RAY OF THE right foot HISTORY: fall today [...] Tavo Bynum MD 02/19/22 8:01 pm Technologist: [facility] Vital Signs Date TimeVital SignValuePerforming HgxrhcauzRqkgxrsk68-85-0589 14:08-0500Body mass index (BMI) [Ratio]43.6 kg/t2Qgtob [place] [employer] DO Work Phone: [facility] HospitalBsfjqvwrmw93-78-2298 14:08-0500Body tneljy688.64 kgCorey Viri DO Work Phone: [phone]9[place] [facility] HospitalTajycqdnce49-58-2405 14:08-0500Diastolic blood mm[Hg]Navegg Work Phone: [phone]-[facility] HospitalNjgsfwcsha98-99-9930 14:08-0500Systolic blood ymnjaunt653 mm[Hg]Navegg Work Phone: 1(740)759-[facility] HospitalQdzkaxzzjq85-50-1598 14:28-0400Body mass index (BMI) [Ratio]42.78 kg/a3Joxej Viri DO Work Phone: 1(104)449-[facility] HospitalNiqlgyinnd93-25-1690 14:28-0400Body feylqg229.54 kgCorey Viri DO Work Phone: [phone])667-[address] [place], [place] [address]Pxcoqavnul96-41-7673 14:28-0400Diastolic blood eufiooca28 mm[Hg]Gerardo Viri DO Work Phone: 1(542)841-[address] [place], [place] [address]Chifmwkghk84-54-1759 14:28-0400Systolic blood aejzlhpv300 mm[Hg]Gerardo Viri DO Work Phone: 1([phone])696-[address] [place], [place] [address]Hdhoiydgso06-60-9006 16:13-0400Body mass index (BMI) [Ratio]42.3 kg/m2Nichelle Sanchez ELIJAH Work Phone: 1(950)873-[address] [place], [place] [address]Zaeukatdjz87-97-7645 16:13-0400Body ixguow848.32 kgNichelle Peraltanazario NAVA Work Phone: 1(273)918-[address] [place], [place] [address]Estjyvnvfs97-43-2066 16:13-0400Diastolic blood lowfftsc66 mm[Hg]Nichelle Peraltaey PA Work Phone: [phone])[phone] [place], [place] [address]Uxeatcylso41-96-7526 16:13-0400Systolic blood srtsgfeh151 mm[Hg]Nichelle Peraltaey PA Work Phone: 1(040)608-[address] [place], [place] [address]Fwebyxwimc55-08-8689 11:39-0400Body mass index (BMI) [Ratio]41.45 kg/m1Poauu Viri DO Work Phone: [phone] [place], [place] [address]Ovyewlaykk30-77-0680 11:39-0400Body tahids228.14 kgCorey Viri DO Work Phone: 1(041)671-[address] [place] [address]-19-2025 11:39-0400Diastolic blood gthoipmu84 mm[Hg]Gerardo Viri DO Work Phone: 1(951)[facility] [place] [address]-19-2025 11:39-0400Systolic blood dhmshzzy251 mm[Hg]Gerardo Viri DO Work Phone: 1(478)[facility] [place] [address]-15-2025 10:06-0400Body riorub214 cm Yuval Reynaldo MD Work Phone: 1(266)[address] [place], [place] 2420108-15-2025 10:06-0400Body mass index (BMI) [Ratio]41.5 kg/j4UrjxatYuval Loya MD Work Phone: 1(983)[address] [place], [place] 2420108-15-2025 10:06-0400Body .23 kgYuval Loya MD Work Phone: 1(419)[address] [place], [place] 2420108-15-2025 10:06-0400Diastolic blood resggqnd01 mm[Hg]Yuval Loya MD Work Phone: 1(654)[address] [place], [place] [address]20108-15-2025 10:06-0400Heart rate 86 /minYuval Loya MD Work Phone: 1(468)[address] [place], [place] 2420108-15-2025 10:06-0400Systolic blood ucdbpsrz660 mm[Hg]Yuval Loya MD Work Phone: 1(461)[address] [place], [place] 2420108-05-2025 13:18-0400Body mass index (BMI) [Ratio]41.12 kg/v6Whyzv Viri DO Work Phone: 1(747)406-[address] [place], [place] [address]Mbduklulsf23-61-8089 13:18-0400Body uulpcl199.29 kgCorey Viri DO Work Phone: 1(004)381-[address] [place], [place] [address]Bfwdeiabod96-65-4680 13:18-0400Diastolic blood uggumdzr83 mm[Hg]Gerardo Viri DO Work Phone: 1(144)762-[address] [place], [place] [address]Xbpquvgsfc48-55-8110 13:18-0400Systolic blood xwnljmeh207 mm[Hg]Gerardo Viri DO Work Phone: 1(214)338-[address] [place], [place] [address]Ygfobspkfy16-10-0517 15:22-0400Body mass index (BMI) [Ratio]41.24 kg/h1[facility]wvN[facility]07-24-2025 15:22-0400Body weight 105.6 kgNuv[facility] Health07-09-2025 13:45-0400Body mass index (BMI) [Ratio]40.23 kg/m2Amy Dover PA Work Phone: [facility] HospitalIspgwiegin56-17-7481 13:45-0400Body ridjvz837.02 kgNichelle Sanchez PA Work Phone: [facility] HospitalXaxzafvwah53-80-3350 13:45-0400Diastolic blood mm[Hg]Nichelle Sanchez PA Work Phone: [facility] HospitalKuukcspmch73-91-1757 13:45-0400Systolic blood iohksbon540 mm[Hg]Nichelle Sanchez PA Work Phone: [place] [address]Voqisnygos89-46-8780 09:35-0500Body mass index (BMI) [Ratio]36.99 kg/v2Ujutd Viri DO Work Phone: [facility] HospitalTytbmlpkve90-43-0315 09:35-0500Body qxjydr94.71 kgCorey Viri DO Work Phone: [facility] HospitalLmvatmhcqf22-83-7146 09:35-0500Diastolic blood mm[Hg]Gerardo Viri DO Work Phone: [place] [address]Coovazndli53-27-6231 09:35-0500Systolic blood yhpigmml603 mm[Hg]Gerardo Viri DO Work Phone: [place] [address]Bgvbxrudhg98-42-1261 08:44-0500Body qhdypz086 cm Anita Catarina ENGAGEMENT LEAD-LEGAL ASSISTANT Work Phone: [facility]11-15-2024 08:44-0500Body mass index (BMI) [Ratio]36.6 kg/a7Nzvkeu Catarina ENGAGEMENT LEAD-LEGAL ASSISTANT Work Phone: [facility]11-15-2024 08:44-0500Body tcajtfkvvov66.59 [degF]Anita Catarina ENGAGEMENT LEAD-LEGAL ASSISTANT Work Phone: [facility]11-15-2024 08:44-0500Body ikciyq52.71 kgDalialarry Catarina ENGAGEMENT LEAD-LEGAL ASSISTANT Work Phone: [facility]11-15-2024 08:44-0500Diastolic blood bltqtuxc10 mm[Hg]Anita Catarina ENGAGEMENT LEAD-LEGAL ASSISTANT Work Phone: [facility]11-15-2024 08:44-0500Heart rate 90 /minBrlarry Elmore ENGAGEMENT LEAD-LEGAL ASSISTANT Work Phone: [facility]11-15-2024 08:44-0500 Respiratory rate18 /minBrlarry Elmore ENGAGEMENT LEAD-LEGAL ASSISTANT Work Phone: [facility]11-15-2024 08:44-8693VyY5% (BldA) [Mass fraction]100 %Anita Elmore ENGAGEMENT LEAD-LEGAL ASSISTANT Work Phone: [facility]11-15-2024 08:44-0500Systolic blood pymxipqc433 mm[Hg]Anita Elmore ENGAGEMENT LEAD-LEGAL ASSISTANT Work Phone: [facility]10-22-2024 14:44-0400Body cmCorey Viri DO Work Phone: [facility] HospitalAtafvqfkuy63-57-7646 14:44-0400Body mass index (BMI) [Ratio]36.67 kg/e2Cpjss Viri DO Work Phone: [facility] HospitalXxqbtcxpfl65-73-8294 14:44-0400Body omjghu81.89 kgCorey Viri DO Work Phone: [facility] HospitalZmjwujeyne83-20-6050 14:44-0400Diastolic blood iaagwcpv59 mm[Hg]Gerardo Viri DO Work Phone: [facility] HospitalSizwebsjso23-93-0322 14:44-0400Systolic blood jslzomzd871 mm[Hg]Gerardo Viri DO Work Phone: [facility] HospitalVpxvmwurwr09-64-2854 11:58-0400Body vspoih060 cm Anita Elmore ENGAGEMENT LEAD-LEGAL ASSISTANT Work Phone: [facility]10-04-2024 11:58-0400Body mass index (BMI) [Ratio]35.78 kg/n7LxkmigAnita Elmore ENGAGEMENT LEAD-LEGAL ASSISTANT Work Phone: [facility] [place] Vpknmo84-42-0532 11:58-0400Body sdkeykdrbdt16.1 [degF]Anita Elmore APRN-LEGAL ASSISTANT Work Phone: [facility]10-04-2024 11:58-0400Body .63 kgAnita Elmore APRN-LEGAL ASSISTANT Work Phone: [facility] [place] Nhompc01-45-6179 11:58-0400Diastolic blood pvamvjgx35 mm[Hg]Anita Elmore APRN-LEGAL ASSISTANT Work Phone: [facility] [place] Gqrvbm67-45-8753 11:58-0400Heart rate 79 /minAnita Elmore APRN-LEGAL ASSISTANT Work Phone: [facility]10-04-2024 11:58-0400 Respiratory rate18 /minAnita Elmore APRN-LEGAL ASSISTANT Work Phone: [facility] [place] Fmbseg04-83-9228 11:58-0863AnP2% (BldA) [Mass fraction]99 %Anita Elmore APRN-LEGAL ASSISTANT Work Phone: [facility] [place] Uzgghb57-33-7729 11:58-0400Systolic blood pokdegin233 mm[Hg]Anita Elmore APRN-LEGAL ASSISTANT Work Phone: [facility] [place] Lcavkx86-44-3255 13:24-0400Body vyiwiq028 cmAnita Elmore APRN-LEGAL ASSISTANT Work Phone: [facility] [place] Xivybw53-02-7460 13:24-0400Body mass index (BMI) [Ratio]35.76 kg/s6TlmhsgAnita Elmore ENGAGEMENT LEAD-LEGAL ASSISTANT Work Phone: [facility] [place] Iotoea83-90-5618 13:24-0400Body fcemrqkqnvk56.8 [degF]Anita Elmore APRN-LEGAL ASSISTANT Work Phone: [facility] [place] Eruakq58-06-3919 13:24-0400Body psxins72.58 kgBrlarry Elmore ENGAGEMENT LEAD-LEGAL ASSISTANT Work Phone: [facility]09-19-2024 13:24-0400Diastolic blood etbzmvkh30 mm[Hg]Anita Elmore ENGAGEMENT LEAD-LEGAL ASSISTANT Work Phone: [facility]09-19-2024 13:24-0400Heart rate 85 /minBrlarry Elmore ENGAGEMENT LEAD-LEGAL ASSISTANT Work Phone: [facility] [place] Xlkarg93-14-3317 13:24-0400 Respiratory rate18 /minBrlarry Elmore ENGAGEMENT LEAD-LEGAL ASSISTANT Work Phone: [facility]09-19-2024 13:24-8195XeI8% (BldA) [Mass fraction]99 %Anita Elmore ENGAGEMENT LEAD-LEGAL ASSISTANT Work Phone: [facility]09-19-2024 13:24-0400Systolic blood lemulotl709 mm[Hg]Anita Elmore ENGAGEMENT LEAD-LEGAL ASSISTANT Work Phone: [facility]09-10-2024 14:23-0400Body mass index (BMI) [Ratio]36.14 kg/k4Izhod Viri DO Work Phone: [facility] HospitalCjaeulhiti39-64-7376 14:23-0400Body afacxa98.53 kgCorey Viri DO Work Phone: [facility] HospitalDjxtteqtwc60-32-2537 14:23-0400Diastolic blood pcirahhx27 mm[Hg]Gerardo Viri DO Work Phone: [facility] HospitalZubpuoeiee60-55-0922 14:23-0400Systolic blood asszxnxr620 mm[Hg]Gerardo Viri DO Work Phone: [facility] HospitalYhkkaqspye16-53-1913 16:09-0400Body ecigne566 cm Alphonsomckayla PyleloAvalara DO Work Phone: [facility]07-09-2024 16:09-0400Body mass index (BMI) [Ratio]38.85 kg/z7Bdloby Furlong DO Work Phone: [facility]07-09-2024 16:09-0400Body zkkheisezhy89.2 [degF]Alphonso Garcia DO Work Phone: [facility]07-09-2024 16:0400Body .47 kgAlphonso Garcia DO Work Phone: [facility] Uwkorr65-43-2554 16:0400Diastolic blood wgyonddy45 mm[Hg]Alphonso Garcia DO Work Phone: [facility] [facility] Jymjon70-62-5045 16:0400Heart rate 82 /Obdulio Santanang DO Work Phone: [facility]07-09-2024 16:0400 Respiratory rate20 /Obdulio Garcia DO Work Phone: [facility] Ajoyxh58-12-3804 16:7497EnJ6% (BldA) [Mass fraction]98 %Alphonso Garcia DO Work Phone: [facility] Jgpmsh32-83-1908 16:Systolic blood qkcinsai944 mm[Hg]Alphonso Garcia DO Work Phone: [facility] Ftoqce34-55-0878 16:31-0400Body styevn736 cmAnita MORALES Work Phone: [facility] Otxffu32-87-9359 16:31-0400Body mass index (BMI) [Ratio]39.13 kg/s6ToesakAnita Elmore APRN-LEGAL ASSISTANT Work Phone: [facility] Vbfvvq42-63-8676 16:31-0400Body lpxoimqoxbe60.71 [degF]Anita Elmore APRN-LEGAL ASSISTANT Work Phone: [facility] [facility] Lootsr56-08-6333 16:31-0400Body wmhqeu846.2 kgAnita Elmore APRN-LEGAL ASSISTANT Work Phone: [facility] [facility] Vvkeet68-86-2450 16:31-0400Diastolic blood yzqrnysa57 mm[Hg]Anita Catarina ENGAGEMENT LEAD-LEGAL ASSISTANT Work Phone: [facility] [place] Ffddbq77-91-2945 16:31-0400Heart rate 71 /minAnita Elmore APRN-LEGAL ASSISTANT Work Phone: [facility]06-13-2024 16:31-0400 Respiratory rate18 /minAnita Elmore ENGAGEMENT LEAD-LEGAL ASSISTANT Work Phone: [facility]06-13-2024 16:31-9362RqV3% (BldA) [Mass fraction]98 %Anita Elmore APRN-LEGAL ASSISTANT Work Phone: [facility] [place] Ncovow62-61-0041 16:31-0400Systolic blood wfwohpxx57 mm[Hg]Anita Elmore APRN-LEGAL ASSISTANT Work Phone: [facility]05-14-2024 11:36-0400Body vfjarp387 cmLima Toussaint ENGAGEMENT LEAD-ENROLLED AGENT Work Phone: [facility]05-14-2024 11:36-0400Body mass index (BMI) [Ratio]38.12 kg/m2Lima Toussaint ENGAGEMENT LEAD-ENROLLED AGENT Work Phone: [facility] [place] Yvocqg94-24-0568 11:36-0400Body qigyhyixnic75.6 [degF]Lima Toussaint APRN-ENROLLED AGENT Work Phone: [facility] [place] Ftqyoa65-84-8643 11:36-0400Body wpdonn27.61 kgLima Toussaint ENGAGEMENT LEAD-ENROLLED AGENT Work Phone: [facility] [place] Fumgqc66-80-7107 11:36-0400Diastolic blood bduvcknt71 mm[Hg]Lima Toussaint APRN-ENROLLED AGENT Work Phone: [facility]05-14-2024 11:36-0400Heart rate 86 /minLima Toussaint APRN-ENROLLED AGENT Work Phone: [facility]05-14-2024 11:36-3449WaF5% (BldA) [Mass fraction]98 %Lima WELLSENROLLED AGENT Work Phone: [facility]05-14-2024 11:36-0400Systolic blood mswzybqi942 mm[Hg]Lima Toussaint APRN-ENROLLED AGENT Work Phone: [facility]04-10-2024 13:04-0400Body rpkdyt706 cmAnita Elmore APRN-LEGAL ASSISTANT Work Phone: [facility]04-10-2024 13:04-0400Body mass index (BMI) [Ratio]38.48 kg/y5UzcfounAita Elmore APRN-LEGAL ASSISTANT Work Phone: [facility]04-10-2024 13:04-0400Body aflqrohdhhb66.29 [degF]Anita Elmore ENGAGEMENT LEAD-LEGAL ASSISTANT Work Phone: [facility]04-10-2024 13:04-0400Body wyldrg59.52 kgAnita Elmore APRN-LEGAL ASSISTANT Work Phone: [facility]04-10-2024 13:04-0400Diastolic blood mozqdecu44 mm[Hg]Anita Elmore APRN-LEGAL ASSISTANT Work Phone: [facility]04-10-2024 13:04-0400Heart rate 92 /minBrlarry Elmore APRN-LEGAL ASSISTANT Work Phone: [facility]04-10-2024 13:04-1469UxE1% (BldA) [Mass fraction]97 %Anita Elmore APRN-LEGAL ASSISTANT Work Phone: [facility]04-10-2024 13:04-0400Systolic blood rgtjfveb225 mm[Hg]Anita Elmore APRN-LEGAL ASSISTANT Work Phone: [facility]04-10-2024 07:09-0400Body cmPacc 3 Work Phone: [facility]04-10-2024 07:09-0400Body temperature 97.59 [degF]Pac 3 Work Phone: [facility]04-10-2024 07:09-0400Body .7 kgPa 3 Work Phone: [phone]04-10-2024 07:09-0400Diastolic blood weiaztdj61 mm[Hg]Pac 3 Work Phone: [phone] [address]-10-2024 07:09-0400Heart rate66 /min Pac 3 Work Phone: [phone]04-10-2024 07:09-3485BeZ9% (BldA) [Mass fraction]100 %Pac 3 Work Phone: [facility]04-10-2024 07:09-0400Systolic blood mm[Hg][facility] 3 Work Phone: [facility]11-17-2023 07:15-0500Body ktlnjy340.02 cmShaylaitlin Schwerer Other [employer] Other 11-17-2023 07:15-0500Body mass index (BMI) [Ratio] 40.07 kg/j5Rubbwyg Schwerer Other [employer] Other 11-17-2023 07:15-0500Body cvnruchahkc59.1 [degF] Aime Schwerer Other [employer] Other 11-17-2023 07:15-0500Body ytblnw908.6 kgKaitlin Schwerer Other [employer] Other 11-17-2023 07:15-0500Diastolic blood wojpupey62 mm[Hg] Aime Schwerer Other [employer] Other 11-17-2023 07:15-3696BqN6% (BldA) [Mass fraction]99 % Aime Schwerer Other [employer] Other 11-17-2023 07:15-0500Systolic blood pcpvuszf084 mm[Hg] Aime Schwerer Other [employer] Other 09-01-2023 10:45-0400Body mbximd111.75 cmKaitlin Schwerer Other [employer] Other 09-01-2023 10:45-0400Body mass index (BMI) [Ratio] 40.33 kg/y7Hadpwtn Schwerer Other [employer] Other 09-01-2023 10:45-0400Body kzizqa891.65 kgKaitlin Schwerer Other [employer] Other 09-01-2023 10:45-0400Diastolic blood iwufimvw96 mm[Hg] Aime Schwerer Other [employer] Other 09-01-2023 10:45-0400Respiratory rate18 /minKaitlin Schwerer Other [employer] Other 09-01-2023 10:45-2937ZeY8% (BldA) [Mass fraction]100 % Aime Schwerer Other [employer] Other 09-01-2023 10:45-0400Systolic blood sfwjymnz281 mm[Hg] Aime Schwerer Other [employer] Other 01-12-2023 08:32-0500Body .6 cmLatasha Bobo MD Work Phone: [facility]01-12-2023 08:32-0500Body mass index (BMI) [Percentile] Per age and sex97.14 %Latasha Bobo MD Work Phone: [facility]01-12-2023 08:32-0500Body vxtuuy49.44 kgLatasha Bobo MD Work Phone: [facility]11-30-2022 14:01-0500Body cm Sean Bjvissuto ENGAGEMENT LEAD.LEGAL ASSISTANT Work Phone: [phone]11-30-2022 14:01-0500Body mass index (BMI) [Percentile] Per age and sex98.09 %Sean Rasconsuto ENGAGEMENT LEAD.LEGAL ASSISTANT Work Phone: [phone]11-30-2022 14:01-0500Body .63 kgSean Rasconsuto ENGAGEMENT LEAD.LEGAL ASSISTANT Work Phone: [phone]11-30-2022 14:01-0500Diastolic blood anjwyxti88 mm[Hg]Sean Bonvissuto ENGAGEMENT LEAD.LEGAL ASSISTANT Work Phone: [phone]11-30-2022 14:01-0500Heart rate77 /min Sean Bjvissuto ENGAGEMENT LEAD.LEGAL ASSISTANT Work Phone: [phone]11-30-2022 14:01-0500Systolic blood xwtwfohd605 mm[Hg]Sean Bonvissuto ENGAGEMENT LEAD.LEGAL ASSISTANT Work Phone: [phone] Encounters Encounter DateEncounter TypeCare ProviderFacilityStart: 03-26-2025 End: 80-50-3467zarmwogkwlWPQLO FAZIONot AvailableStart: 03-26-2025 End: 80-79-5081Rehsvf flowsheetCorey Viri DO Work Phone: [facility]BGYNStart: 03-26-2025 End: 62-91-6507Otznoo flowsheetCorey Viri DO Work Phone: [facility] [place] OBGYNStart: 03-26-2025 End: 35-45-9880Mizkbktk flow sheetCorey Viri DO Work Phone: [facility] OBGYNComment on above:Second trimester ([facility]); 23 weeks gestation of ([facility]); Diabetes mellitus screeningStart: 03-13-2025 End: 97-13-0018hxgnxubjcjNYOPL R [facility] HospitalStart: 02-28-2025 End: 60-44-8785jrclcblgvhKLCYB FAZIONot AvailableStart: 02-28-2025 End: 82-98-7741Govtsj flowsheetCorey Viri DO Work Phone: [facility]BGYNStart: 02-28-2025 End: 03-83-7864Zhffux flowsheetCorey Viri DO Work Phone: [facility]BGYNStart: 02-28-2025 End: 27-31-1894Watnwdnk flow sheetCorey Viri DO Work Phone: [facility] OBGYNComment on above:Second trimester ([facility]); 19 weeks gestation of ([facility]); Thyroid diseaseStart: 01-31-2025 End: 06-12-6971Oskpqjnh flow Christopher NAVA Work Phone: [facility] OBGYNComment on above:15 weeks gestation of ([facility]); Second trimester ([facility]); Screening, , for anatomic survey ([facility])Start: 01-31-2025 End: 62-22-7148hngxbquikoVZZ RAMEYNot AvailableStart: 01-31-2025 End: 14-97-8128Nouzjd Lamberto NAVA Work Phone: [facility]BGYNStart: 01-31-2025 End: 79-54-0186Rwxhlv Lamberto NAVA Work Phone: [facility] [place] OBGYNStart: 01-02-2025 End: 15-04-4121Nvidvw flowsheetCorey Viri DO Work Phone: [facility] [place] OBGYNStart: 01-02-2025 End: 98-43-2870Dvyfqw flowsheetCorey Viri DO Work Phone: [facility] [place] OBGYNStart: 01-02-2025 End: 30-86-4471Xfoidxwh Result EncounterCorey Viri DO Work Phone: [facility] External Department UnsolicitedStart: 01-02-2025 End: 18-59-3991undtavnjrwJSXTK FAZIONot AvailableStart: 01-02-2025 End: 29-37-8171Yviymcxc flow sheetCorey Viri DO Work Phone: [facility] OBGYNComment on above:11 weeks gestation of ([facility]); First trimester ([facility]); Thyroid disease ; H/O thyroidectomy; Exposure to STD; Vaginal discharge; Constipation, unspecified constipation typeStart: 12-29-2024 End: 71-71-9757QtkgtdCasie Guzmán RNMaternal- [facility] at [facility] AndersonComment on above:Thyroid disease affecting (Primary Dx) Start: 12-29-2024 End: 39-88-8159Tietba consultation new/estab patient 59 Anitha Harrison MD Work Phone: [phone]-Lbszx Medicine at [facility] Comment on above:Thyroid disease affecting (Primary Dx); Postoperative hypothyroidismStart: 12-28-2024 End: 49-95-0719Rtjrd Maggie Loya MD Work Phone: [phone]-Guqyv [facility] Start: 12-19-2024 End: 27-44-5648Uirdff flowsheetCorey Viri DO Work Phone: [facility] OBGYNStart: 12-19-2024 End: 08-17-9221Xhwpmz flowsheetCorey Viri DO Work Phone: [facility]BGYNStart: 12-19-2024 End: 05-93-2695Qipxsjip flow sheetCorey Viri DO Work Phone: [facility] OBGYNComment on above:First trimester ([facility]); 9 weeks gestation of ([facility]); Encounter to discuss test results; headache, antepartum ([facility]); NauseaStart: 12-19-2024 End: 68-30-2066galyvubkvkUCUGF FAZIONot AvailableStart: 12-18-2024 End: 71-85-9663afapskagtrBXE STAFFFacility:[facility] Start: 12-16-2024 End: 24-57-9090Usqatdujz Result EncounterCorey Viri DO Work Phone: no[facility] External Department UnsolicitedStart: 12-16-2024 End: 97-00-7119Eosyrqjvd Result EncounterCorey Viri DO Work Phone: noMS External Department UnsolicitedStart: 12-07-2024 End: 45-00-7892Gfmxqg outpatient visit 5 minutesFajesus Evans [facility] Bcp ObNOMS BCP OBComment on above:GA: 0x7iPfogr: 12-07-2024 End: 10-13-7508rssjlyymfvRDW RAMEYNot AvailableStart: 11-30-2024 End: 89-30-2002dkyeuykoxtESB RAMEYNot AvailableStart: 11-22-2024 End: 56-11-9350Xzuihq Lamberto NAVA Work Phone: [facility] BCP OBStart: 11-22-2024 End: 99-48-6598Xolihr Lamberto NAVA Work Phone: [facility] BCP OBStart: 11-22-2024 End: 14-81-0484owfnqmpzabBCG RAMEYNot AvailableStart: 11-22-2024 End: 58-70-4164Kfvcvy outpatient visit 15 minutesNichelle NAVA Work Phone: [facility] BCP OBComment on above:Nausea (Primary Dx); Cramping affecting , antepartum ([facility]); Missed mensesStart: 11-18-2024 End: 97-27-7965Vartzeqem Result EncounterCorey Viri DO Work Phone: NOZS External Department UnsolicitedStart: 11-18-2024 End: 45-30-9500Sglqlgtyg Result EncounterCorey Viri DO Work Phone: NOD[facility] External Department UnsolicitedStart: 11-13-2024 End: 46-91-0909Olisnpcul Result EncounterCorey Viri DO Work Phone: [facility] External Department UnsolicitedStart: 11-13-2024 End: 50-77-0189Kscsogbeg Result EncounterCorey Viri DO Work Phone: [facility] External Department UnsolicitedStart: 10-12-2024 End: 30-18-0059Wydlvserr department patient visitDOKettering Health Greene Memorialtart: 05-09-2024 End: 03-72-8270Klaapo flowsheetLoretta Winkler MD Work Phone: [facility] ENDOCRINOLOGYStart: 05-09-2024 End: 27-41-5393Ipdfqg Paula Winkler MD Work Phone: [facility] ENDOCRINOLOGYStart: 05-09-2024 End: 92-47-8955jmgdzrrilhQUQCM F SABBAGHNot AvailableStart: 04-26-2024 End: 39-90-7667MlccrsLoxavz L Rauch APRN-JOSE LUIS Work Phone: [facility] Internal Medicine - Family MedicineStart: 04-10-2024 End: 43-86-8372Pfpfgi flowsheetCorey Viri DO Work Phone: [facility] BCP OBStart: 04-10-2024 End: 58-37-9127Wnfzxi flowsheetCorey Viri DO Work Phone: [facility] BCP OBStart: 04-10-2024 End: 92-29-5128yradwnlqzjSJGBZ FAZIONot AvailableStart: 04-10-2024 End: 51-91-2549Pkcexg outpatient visit 15 minutesCorey Viri DO Work Phone: [facility] OBComment on above:Encounter for weight managementStart: 04-03-2024 End: 91-77-7351Riiqar OnlyAnita Elmore ENGAGEMENT LEAD-LEGAL ASSISTANT Work Phone: [facility] Internal Medicine - Family MedicineComment on above:Postoperative hypothyroidism (Primary Dx)Start: 03-31-2024 End: 17-67-7475huqajiayedZALDDZ L RAUCHMercy Health St[facility] HospitalStart: 03-31-2024 End: 99-08-2141Mpmzza outpatient visit 15 minutesAnita Elmore ENGAGEMENT LEAD-LEGAL ASSISTANT Work Phone: [facility] Internal Medicine - Family MedicineComment on above:Postoperative hypothyroidism (Primary Dx); Acute nonintractable headache, unspecified headache type; Gastroesophageal reflux disease, unspecified whether esophagitis present; Immunization dueStart: 03-31-2024 End: 26-29-6921xalpnjmroqXLSYCW L [facility]CH[facility] PPGStart: 03-20-2024 End: 94-27-1843Xehboonmb Result EncounterCorey Viri DO Work Phone: noms External Department UnsolicitedStart: 03-20-2024 End: 99-58-4645Tytolxwjf Result EncounterCorey Viri DO Work Phone: noms External Department UnsolicitedStart: 03-18-2024 End: 91-62-7118CpiliqSvjnyz L Rauch ENGAGEMENT LEAD-LEGAL ASSISTANT Work Phone: [facility] - Family MedicineStart: 03-17-2024 End: 34-22-8774Syhdffzsq Result EncounterCorey Viri DO Work Phone: noms External Department UnsolicitedStart: 03-17-2024 End: 92-53-0625Yrmvojori Result EncounterCorey Viri DO Work Phone: noms External Department UnsolicitedStart: 03-15-2024 End: 68-77-6961Qnqtpwmkb Result EncounterCorey Viri DO Work Phone: noms External Department UnsolicitedStart: 03-15-2024 End: 60-29-2623Rtwewyxgy Result EncounterCorey Viri DO Work Phone: [facility] External Department UnsolicitedStart: 03-14-2024 End: 45-11-8760Ocvqpjupv Result EncounterCorey Viri DO Work Phone: noms External Department UnsolicitedStart: 03-14-2024 End: 92-78-3208Nkfsufsvx Result EncounterCorey Viri DO Work Phone: noms External Department UnsolicitedStart: 03-13-2024 End: 03-59-3783Fecdtr [place] Elmore ENGAGEMENT LEAD-LEGAL ASSISTANT Work Phone: [facility] - [facility] MedicineStart: 03-07-2024 End: 58-09-9421Gylcvk flowsheetCorey Viri DO Work Phone: noms BCP OBStart: 03-07-2024 End: 74-44-1711Hnqkfc flowsheetCorey Viri DO Work Phone: noms BCP OBStart: 03-07-2024 End: 12-45-3067Wffbad outpatient visit 15 minutesCorey Viir DO Work Phone: NOMT BCP OBComment on above:Mood disorder (CMS/HCC); Anxious mood; Hormone imbalance; Irregular periods; Weight gainStart: 03-03-2024 End: 69-64-7227eicqxtvvzoHmlpflopn L LyFacility:[facility] Toledotart: 03-01-2024 End: 64-23-2245CtoqwrDwaihr L Rauch ENGAGEMENT LEAD-LEGAL ASSISTANT Work Phone: [facility] MedicineStart: 02-23-2024 End: 46-10-0427Dkfvnlvtm encounterAsad Sam CMAProMedica Physicians Internal Medicine - Family MedicineStart: 02-21-2024 End: 78-31-0164Cmtodm [place] ENGAGEMENT LEAD-LEGAL ASSISTANT Work Phone: [facility] Physicians Internal Medicine - Family MedicineComment on above:Postoperative hypothyroidism (Primary Dx)Start: 02-18-2024 End: 23-77-9080gzepvwjqeuZXLEWR L RAUCHAultman Hospitaltart: 02-18-2024 End: 26-48-2982Ubfmub outpatient visit 15 minutesAnita Elmore ENGAGEMENT LEAD-LEGAL ASSISTANT Work Phone: [facility] MedicineComment on above:Gastroesophageal reflux disease, unspecified whether esophagitis present (Primary Dx); Postoperative hypothyroidism; Acute hemorrhoid; Delayed gastric emptying; Influenza vaccination administered at current visitStart: 02-18-2024 End: 07-80-4881zwexfdskxvRWYQZYEllis Hospital Ambulatory PPGStart: 02-17-2024 End: 60-14-0458AyhsweHkmrro L Rauch ENGAGEMENT LEAD-LEGAL ASSISTANT Work Phone: [facility] MedicineStart: 02-10-2024 End: 60-26-2360Irslmi [place] ENGAGEMENT LEAD-LEGAL ASSISTANT Work Phone: [facility] - [facility] MedicineComment on above:Esophageal dysphagia (Primary Dx); Gastroesophageal reflux disease without esophagitisStart: 02-04-2024 End: 28-86-3473Pybqfe [place] El[place] ENGAGEMENT LEAD-LEGAL ASSISTANT Work Phone: [facility] MedicineStart: 02-03-2024 End: 66-94-7151Hfrmti digital e/m svc est pt <7 d 5-10 minutesNichelle NAVA Work Phone: noms BCP OBComment on above:Weight gain (Primary Dx) Start: 02-03-2024 End: 91-96-1815Nsabxw flowsheetNichelle NAVA Work Phone: NOMS BCP OBStart: 02-03-2024 End: 11-43-9090Eilacy flowsheetNichelle NAVA Work Phone: noms [facility] OBStart: 02-03-2024 End: 33-61-0027Uohqon outpatient visit [address] [employer] boysAnita Elmore ENGAGEMENT LEADOrgenesis Work Phone: [facility] Internal Medicine - [facility] MedicineComment on above:Gastroesophageal reflux disease, unspecified whether esophagitis present (Primary Dx); Esophageal dysphagia; Allergic contact dermatitis, unspecified trigger; Chronic idiopathic constipationStart: 02-03-2024 End: 42-62-1575zpyyqgflxkJJTCWGOklahoma [facility]nsic Center [facility] PPGStart: 01-28-2024 End: 00-17-1493GirnlwDokvbi L Rauch ENGAGEMENT LEADOrgenesis Work Phone: [facility] Internal Medicine - [facility] MedicineStart: 01-26-2024 End: 46-07-1511Zptzjldbm encounterNicole Guille [facility] Physicians Internal Medicine - [facility] MedicineStart: 01-25-2024 End: 46-88-9736Pkugyy follow up visit related to original pxCorey Viri DO Work Phone: noms [facility] OBComment on above:Anxiety, generalized (CMS/HCC) (Primary Dx); Postoperative visit; S/P laparoscopy; Encounter for repeat prescription of oral contraceptivesStart: 01-25-2024 End: 53-86-2160Hrhihq flowsheetCorey Viri DO Work Phone: NOMS [facility] OBStart: 01-25-2024 End: 15-73-0009Gllbdx flowsheetCorey Viri DO Work Phone: noMS [facility] OBStart: 01-23-2024 End: 34-56-7734BkamuiUinyol L Rauch ENGAGEMENT LEADOrgenesis Work Phone: [facility] Physicians Internal Medicine [facility] MedicineStart: 01-14-2024 End: 80-36-1610Pndkbigcn Result EncounterCorey Viri DO Work Phone: noms External Department UnsolicitedStart: 01-14-2024 End: 98-69-0868Tzwcrqrwo Result EncounterCorey Viri DO Work Phone: noms External Department UnsolicitedStart: 01-14-2024 End: 56-25-2231rhdfskrgbbPiyrb FazioFacility:[facility] Start: 12-31-2023 End: 40-11-6029Ymcojfmcd Result EncounterCorey Viri DO Work Phone: noms External Department UnsolicitedStart: 12-31-2023 End: 20-26-8728Riolapqdo Result EncounterCorey Viri DO Work Phone: noms External Department UnsolicitedStart: 12-27-2023 End: 85-59-4954XssmpiDrausl L Catarina ENGAGEMENT LEAD-LEGAL ASSISTANT Work Phone: [facility] Internal Medicine - Family MedicineStart: 12-07-2023 End: 07-41-8388Untnja OnlyBriana L Catarina ENGAGEMENT LEAD-LEGAL ASSISTANT Work Phone: [facility] Internal Medicine - Family MedicineStart: 12-06-2023 End: 61-72-8243Jjnyfx OnlyBriana L Catarina ENGAGEMENT LEAD-LEGAL ASSISTANT Work Phone: [facility] Internal Medicine - Family MedicineStart: 11-25-2023 End: 81-66-5671LoirtpFkbysr L Catarina ENGAGEMENT LEAD-LEGAL ASSISTANT Work Phone: [facility] Internal Medicine - Family MedicineStart: 11-23-2023 End: 66-88-6129Zjvfcb outpatient visit 15 minutesAlphonso [facility] DO Work Phone: [facility] Internal Medicine - Family MedicineComment on above:Tinea pedis of both feet (Primary Dx)Start: 11-23-2023 End: 21-53-8174qtjadxbbsoIOUAWX [facility] Ambulatory PPGStart: 11-01-2023 End: 99-16-5500Skrvhulfr Result EncounterCorey Viri DO Work Phone: noms External Department UnsolicitedStart: 11-01-2023 End: 40-03-4357Vhcqujnve Result EncounterCorearya Meredith DO Work Phone: noms External Department UnsolicitedStart: 10-29-2023 End: 03-99-2438Iyhkai OnlyAnita Elmore ENGAGEMENT LEAD-LEGAL ASSISTANT Work Phone: [facility] Physicians Internal Medicine - Family MedicineComment on above:Postoperative hypothyroidism (Primary Dx)Start: 10-28-2023 End: 43-63-0343Fpwgmyy encounter statusAnita Elmore ENGAGEMENT LEAD-LEGAL ASSISTANT Work Phone: [facility] Work Phone: Start: 10-28-2023 End: 27-07-2770Iqwliatk preventive med est patient 18-39 yrsAnita Elmore ENGAGEMENT LEAD-LEGAL ASSISTANT Work Phone: [facility] Physicians Internal Medicine - Family MedicineComment on above:Wellness examination (Primary Dx); Tinea pedis of right foot; Postoperative hypothyroidism; Generalized anxiety disorder; High risk heterosexual behaviorStart: 10-28-2023 End: 78-35-9252ytklogwoidHPLHAQMendocino [facility] Ambulatory PPGStart: 97-24-7948GltmvtVdhmbdug Madrigal Loria MD Work Phone: EndocrinologyComment on above:Refill RequestStart: 09-28-2023 End: 93-00-0599Pgfrps outpatient visit 15 minutesLima Toussaint APRN-ENROLLED AGENT Work Phone: [facility] Physicians Internal Medicine - Family MedicineComment on above:Flu-like symptoms (Primary Dx); Acute non-recurrent frontal sinusitis; Yeast vaginitisStart: 09-28-2023 End: 93-88-6280hldtcjnkmdRWRKSt. [facility] Ambulatory PPGStart: 09-09-2023 End: 21-82-4226unqdjeslmpIYBHKXH L PRENDESFacility:[facility] Start: 09-09-2023 End: 07-86-1832Qivoqut encounter Korin Bobo MD Work Phone: OtolarynogologyComment on above:Hypothyroidism (acquired) (Primary Dx)Start: 09-03-2023 End: 20-84-5343fzqlxazyibXDCXUGW L PRENDESFacility:[facility] Start: 44-04-9217Zninarmzr to same day surgery centerLatasha Bobo MD Work Phone: OtolaryngologyComment on above:surgery timeStart: 73-95-0244qnevmhiujsZxjnkdzCharli Bobo MD Work Phone: [facility]INStart: 08-25-2023 End: 96-80-7003Blnwld outpatient new 45 minutesAnita Elmore ENGAGEMENT LEAD-LEGAL ASSISTANT Work Phone: [facility] Physicians Internal Medicine - Family MedicineComment on above:Encounter for medical examination to establish care (Primary Dx); Class 2 obesity due to excess calories without serious comorbidity with body mass index (BMI) of 38.0 to 38.9 in adult; Generalized anxiety disorder; Moderate major depression (CMS-HCC); Gastroesophageal reflux disease, unspecified whether esophagitis present; Cystic acne; Thyroid noduleStart: 08-25-2023 End: 80-30-7326Vldakxc encounter statusAnita Elmore ENGAGEMENT LEAD-LEGAL ASSISTANT Work Phone: [facility] Work Phone: Start: 08-25-2023 End: 25-49-4319verspzsaccFFYBIQNYU [facility] Ambulatory PPGStart: 00-81-9961Rmpnahtdx for general adult medical examination without abnormal findingsSt. [facility] Ambulatory PPGStart: 08-25-2023 End: 81-15-3193hqkawyiejbFQLXZICCharli Tylercility:[facility] Start: 08-25-2023 End: 91-26-7956elzgnxqxdpPJFJZR [facility] Centertart: 09-81-5656Jradlekrj for other preprocedural examinationDALIAParkview Health Bryan HospitalStart: 08-25-2023 End: 24-88-5895Edsoeyuvj to [place] [address] Work Phone: ccf [facility] MAINStart: 08-25-2023 End: 04-64-3580wdygfqlayyImnf [address] Work Phone: Pre AnesthesiaComment on above:Pre-op evaluation (Primary Dx); Gastroesophageal reflux disease, unspecified whether esophagitis present; Obesity, pediatric, BMI greater than or equal 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Start: 08-25-2023 End: 41-62-1946Nstppprzagoyv examination [facility] 3 Work Phone: [facility] Work Phone: Start: 08-18-2023 End: 18-11-6382soeufhndmpHrttbyjiMercedes Zepeda MD Work Phone: EndocrinologyComment on above:PCOS (polycystic ovarian syndrome) (Primary Dx); Thyroid noduleStart: 08-18-2023 End: 36-61-2381Jnfgnpiukgwb consultation with Krala Zepeda MD Work Phone: ccf [facility] MAINStart: 30-75-7553Ffxpdxsvk Seb Bobo MD Work Phone: [facility] Neck InstituteComment on above:ResultsStart: 07-09-2023 End: 95-07-8752irytdlftjjDGJXMMK L PRENDESFacility:[facility] Start: 05-20-2023 End: 89-53-8778frpwqxcahyRvuzknd Schwerer Other [employer] Other Start: 03-93-2672Jzqtommud by computer [facility] SandwinooskiyStart: 04-23-2023 End: 33-70-9794oathbnxmcsAODUBJD L PRENDESFacility:[facility] Start: 04-02-2023 End: 97-83-4824brqdhaxupaEhnckhd Schwerer Other [employer] Other Start: 60-28-2098Aohkfh outpatient visit 25 minutes [facility]ime [facility]yStart: 31-53-8142Azkgrzmfs encounter Aime IyerSanta Marta HospitalyStart: 02-22-2023 End: 78-70-3533tqrzazgyjvFH Kevin Stokes Work Phone: [facility] [employer] Other Start: 02-22-2023 End: 16-17-3852Ydikgvt encounter procedureDO Kevin Hallannie Work Phone: [facility]-Flu VaccineStart: 01-30-2023 End: 89-37-7703inlpmfquuyEgaqyu Lewis Other [facility] [employer] Other Start: 01-08-3039Zxyamypuf encounterGerald Charles Urgent Care Baton Rouge RoadStart: 01-27-2023 End: 30-83-5959faeztwtalxLrensch E SchwererFacility:[facility] HospitalStart: 01-15-2023 End: 09-73-9887mukdyhmkooKfpogcf Schweretori Other [facility] [employer] Other Start: 81-77-4511Vqqwfq outpatient new 45 minutes [facility]yStart: 01-06-2023 End: 62-64-6173Wmjcwazco department patient visitCharity Natalia Del Cid Facility:[facility]tart: 12-14-2022 End: 30-84-4304dylzqkiktqHLKali RodriguezFacility:[facility] Hospitaltart: 56-63-1226Qirjsrqok encounterDavina Enriquez MD Work Phone: EndocrinologyComment on above:Appointment (LM that appt was rescheduled)Start: 10-27-2022 End: 30-44-8352lhbdixxjceDotqwu N Hayes PACFacility:[facility] HospitalStart: 07-31-2022 End: 69-09-2987Drtrkssve department patient visitKATHLEEN NAVA Facility:[facility] Hospitaltart: 07-31-2022 End: 23-15-5727iobbfslfgpAETUMN H BOWLUS PAFacility:[facility] Hospitaltart: 07-08-2022 End: 01-84-0212ahwqimvxgtSWYMMVK A BRANIEIFacility:[facility] Hospitaltart: 05-28-2022 End: 78-16-7420Bxckaod encounter procedureLatasha Bobo MD Work Phone: OtolarynogologyComment on above:Thyroid nodule (Primary Dx); Abnormal thyroid blood test; History of thyroid noduleStart: 05-80-0428Gmhcqpifq encounterAngela Bjvissuto LEGAL ASSISTANT Work Phone: peds EndocrinologyComment on above:Patient Update Start: 06-61-5211Nxvoizvnb encounterAngela Bjvissuto ENGAGEMENT LEAD.LEGAL ASSISTANT Work Phone: peds EndocrinologyComment on above:ResultsStart: 05-24-0228xdgtzcdnrmMMCNTD BONVISSUTOFacility:[facility]ertart: 04-19-2022 End: 47-86-5303Gymbhlsxnm hospital visit by [facility] Work Phone: [facility] Radiology UltrasoundComment on above: Abnormal thyroid blood test [R79.89]Start: 33-89-4487Pajttnewd encounterAngela Bonvissuto [place].LEGAL ASSISTANT Work Phone: peds EndocrinologyComment on above:ResultsStart: 04-15-2022 End: 32-67-3052vkdvjirbsqQRIRBD BONVISSUTOFacility:[facility] Centertart: 04-15-2022 End: 33-03-6149Iipvbeb encounter procedureAngela Bonvissuto ENGAGEMENT LEAD.LEGAL ASSISTANT Work Phone: PediatricsComment on above:Abnormal thyroid blood test (Primary Dx); History of thyroid nodule; Obesity, pediatric, BMI greater than or equal 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Start: 02-19-2022 End: 84-91-1171nqoelzviyvGGALZRI A BRANIECKIFacility:[facility] Procedures DateProcedureProcedure DetailPerforming ClinicianStart: 43-18-3296Gbopm dip stick/tablet rgnt non-auto w/o micrscpCorey Viri DO Work Phone: Start: 98-63-9534Ajean dip stick/tablet rgnt non-auto w/o micrscpCorey Viri DO Work Phone: Start: 61-75-9790Vqpth dip stick/tablet rgnt non-auto w/o micrscpAmy Daniel NAVA Work Phone: Start: 78-54-5478JWBHRPSQO VAGINITIS (HTRX)Gerardo Viri DO Work Phone: Start: 21-22-9342Yxabu dip stick/tablet rgnt non-auto w/o micrscpCorey Viri DO Work Phone: Start: 21-88-6983Qbeqx of thyroid stimulating hormone tshNot In System Ref ProvStart: 65-88-4893Wcpcm dip stick/tablet rgnt non-auto w/o micrscpCorey Viri DO Work Phone: Start: 07-38-8239Qmuva of free thyroxineNot In System Ref ProvStart: 45-51-1856Bwxqmqko rubellaNot In System Ref ProvStart: 12-16-2024 Antibody screenYuval Loya MD Work Phone: Start: 53-83-2823Cqey scrn 1+ class nonchromoNot In System Ref ProvStart: 22-18-2299Mvwfpazyko glycosylated z1sKfpfu R Viri DO Work Phone: Start: 83-65-7118EKP 1&2 AB/AG SCREEN (P24 AG)Not In System Ref ProvStart: 61-59-3882Ywvc ia hepatitis b surface antigenNot In System Ref ProvStart: 32-39-2077EYJD AND SCREENNot In System Ref ProvStart: 12-16-2024 BOX TESTCorey Viri DO Work Phone: Start: 39-18-6946Ynysv dip stick/tablet rgnt non-auto w/o micrscpCorey Viri DO Work Phone: Start: 84-28-4782Hirtr dip stick/tablet rgnt non-auto w/o micrscpAmy Daniel NAVA Work Phone: Start: 40-67-7316KHH PREG QUANT HCGCorey Viri DO Work Phone: Start: 56-48-2026DSK THYROID STIM HORMONECorey Viri DO Work Phone: Start: 81-84-1979CGT PREG QUANT HCGCorey Viri DO Work Phone: Start: 57-68-9119Qbpdb depression screening assessment Anita Elmore ENGAGEMENT LEAD-[facility] Work Phone: Start: 40-58-3712EGH PREG QUANT HCGCorey Viri DO Work Phone: Start: 16-43-3074HOK PREG QUANT HCGCorey Viri DO Work Phone: Start: 42-67-3408WJR PREG QUANT HCGCorey Viri DO Work Phone: Start: 60-22-1291MEE PREG QUANT HCGCorey Viri DO Work Phone: Start: 59-50-8234ZLT CBC WITH AUTO DIFFCorey Viri DO Work Phone: Start: 62-90-8482JEY 12-LEADCorey Viri DO Work Phone: Start: 18-18-5339Hybfk depression screening assessment Alphonso Pylelong DO Work Phone: Start: 65-99-5808NE PELVIS W/ TRANSVAGINALCorey Viri DO Work Phone: Start: 49-15-0515Pqeqr depression screening assessment Anita Elmore ENGAGEMENT LEAD-[facility] Work Phone: Start: 54-96-8460LBLZ INFLUENZA A/INFLUENZA B/SARS-COV-2 Boni Toussaint ENGAGEMENT LEAD-ENROLLED AGENT Work Phone: Start: 38-07-7017Ypuvc depression screening assessment Lima Toussaint ENGAGEMENT LEAD-ENROLLED AGENT Work Phone: Start: 33-38-6050Jwmon depression screening assessment Anita Elmore ENGAGEMENT LEAD-LEGAL ASSISTANT Work Phone: Start: 00-08-1591AQ NECK (POC) HNI USE ONLYSalinas Tam MD Work Phone: Start: 21-49-1661Oe soft tissue head & neck real time imge Augustina Aguilar APRN.LEGAL ASSISTANT Work Phone: Start: 83-81-1192Rldepei of tonsillectomyS/P tonsillectomyAngela Minor MIRAMONTESLEGAL ASSISTANT Work Phone: History of thyroidectomyH/O thyroidectomyGerardo Meredith DO Work Phone: Plan of Treatment DateCare ActivityDetailAuthorStart: 12-29-2025 End: 84-32-3705WN MFM with or without consultUS MFM with or without consult Imaging Routine Thyroid disease affecting Expected: 12/29/2025 (Approximate), Expires: 12/29/2025[facility] Work Phone: comment on above:Expected: 12/29/2025 (Approximate), Expires: 12/29/2025Start: 60-34-1457VKbC,Tdap and Td Vaccines (7 - Td or Tdap) DTaP,Tdap and Td Vaccines (7 - Td or Tdap)[facility] SystemStart: 70-06-5919Ywskn microalbumin profileDTaP,Tdap,Td Vaccine (7 - Td or Tdap) [facility]: 19-89-7606Aqqms BMI ScreeningAdult BMI ScreeningProPromedica Memorial Hospital SystemStart: 05-41-7925Kykfawo ScreeningTobacco ScreeningProPromedica Memorial Hospital SystemStart: 04-24-2025 End: 91-71-9534Nxqeboz encounter /09/2025 1:30 PM EST Routine [facility] [address] [place], [id number] Nichelle Sanchez PA [address] [place] [address] [address] [place] OBGYNStart: 31-97-6726Idwci BMI ScreeningAdult BMI ScreeningProPromedica Memorial Hospital SystemStart: 03-31-2025 Depression ScreeningDepression ScreeningProPromedica Memorial Hospital SystemStart: 03-28-2025 End: 86-26-3255Gcpivfk encounter habveukkx44/12/2025 10:50 AM EST Routine [facility] [address] [place] [id number] Gerardo Meredith DO [address] [place] [address] EUGENIA [place] OBGYNStart: 03-26-2025 End: 25-78-0431LQT panel - Blood by Automated countCBC Lab Routine Second trimester ([facility]) Diabetes mellitus screening Expected: 03/26/2025 (Approximate), Expires: 03/26/2026NODE HealthcareComment on above:Expected: 03/26/2025 (Approximate), Expires: 03/26/2026Start: 03-26-2025 End: 64-39-5447Osyvyakowli of glucose 1 hour after glucose challenge for glucose tolerance testGlucose tolerance, 1 hour Lab Routine Second trimester ([facility]) Diabetes mellitus screening Expected: 03/26/2025 (Approximate), Expires: 03/26/2026NODE HealthcareComment on above:Expected: 03/26/2025 (Approximate), Expires: 03/26/2026Start: 02-28-2025 End: 16-31-9952Tebqnbi encounter ffnjzyzir96/15/2025 2:00 PM EDT Routine [facility] [address] [place], [id number] Gerardo Meredith, DO [address] [place] [address] [address] [place] OBGYNStart: 45-96-6748Vzjwh BMI ScreeningAdult BMI ScreeningProClinton Memorial Hospitalca Health SystemStart: 64-69-2088Iuxhjyq ScreeningTobacco ScreeningProMedica Health SystemStart: 73-30-6274Qbgib BMI ScreeningAdult BMI ScreeningProMedica Health SystemStart: 58-23-9336Odglxqk ScreeningTobacco ScreeningProClinton Memorial Hospitalca Health SystemStart: 67-18-7917Eblnj BMI ScreeningAdult BMI ScreeningProClinton Memorial Hospitalca Health SystemStart: 07-54-8696Tfyywlv ScreeningTobacco ScreeningSelect Medical [facility], Beachwoodca Health SystemStart: 01-31-2025 End: 86-98-9736Txdjydw encounter procedureNO Anoop OBGYNComment on above: ArrivedStart: 01-31-2025 End: 95-08-4164Xnzzb fetoprotein, maternalAlpha fetoprotein, maternal Lab Routine 15 weeks gestation of ([facility]) Second trimester ([facility]) Expected: 01/31/2025 (Approximate), Expires: 03/02/2025[facility] Work Phone: comment on above:Expected: 01/31/2025 (Approximate), Expires: 03/02/2025Start: 86-43-5513EZZIR-19 Vaccine ( season)COVID- 19 Vaccine ( season)[facility] HealthcareStart: 45-64-1398Csfxnoqgi vaccinationNOMS HealthcareStart: 01-02-2025 End: 83-99-4626Jcaecdx encounter procedureNOMS BCP OBStart: 12-29-2024 End: 48-29-7229Fbpffur encounter kxbfjsaaf74/15/2025 10:00 AM EDT Office Visit Maternal- Medicine at [facility] [address] [place] [address] Andrews Harrison MD [address], [address] [place] [address] Yuval Loya MD [address], [address] [place] [address] [facility]: 12-19-2024 End: 51-87-0805Icxlyvm encounter hnheswhbc36/05/2025 1:00 PM EDT Routine [facility] [address] [place], [id number] Gerardo Meredith DO [address] [place], [place] [id number] ArrivedNOMS Anoop OBGYNComment on above:ArrivedStart: 12-07-2024 End: 22-40-2476elilfyrbjr73/24/2025 2:30 PM EDT Initial [facility] BCP OB [address] [place] [address] NOMS BCP OBStart: 12-07-2024 End: 62-66-6112HPW/RhABO/Rh Lab Routine Missed menses , unspecified gestational age ([facility]) Expected: 12/07/2024 (Approximate), Expires: 12/07/2025NODE HealthcareComment on above:Expected: 12/07/2024 (Approximate), Expires: 12/07/2025Start: 12-07-2024 End: 83-08-0652Tnnic type and Indirect antibody screen panel - BloodType and screen Lab Routine Missed menses , unspecified gestational age ([facility]) Expected: 12/07/2024 (Approximate), Expires: 12/07/2025[facility] Work Phone: comment on above:Expected: 12/07/2024 (Approximate), Expires: 12/07/2025Start: 12-07-2024 End: 41-68-5874Vvodz of abuse panel - Urine by Screen methodRapid drug screen, urine Lab Routine , unspecified gestational age ([facility]) Encounter for supervision of normal first in first trimester ([facility]) Expected: 12/07/2024 (Approximate), Expires: 12/07/2025NODE HealthcareComment on above: Expected: 12/07/2024 (Approximate), Expires: 12/07/2025Start: 12-07-2024 End: 14-02-5789Rxskvddskggd / ancillary services eooavptqhu57/24/2025 2:00 PM EDT Ancillary Procedure [facility] OB [address] [place] [address] [facility] B[facility] OBStart: 11-30-2024 End: 45-81-7405Aaayqnglhcac / ancillary services uitfenyzlb50/17/2025 2:30 PM EDT Ancillary Procedure [facility] OB [address] [place] [address] [facility] BCP OBStart: 58-14-1570Ealwr BMI ScreeningAdult BMI ScreeningProPromedica Memorial Hospital SystemStart: 12-03-9754Oyromykeqg ScreeningDepression ScreeningProPromedica Memorial Hospital SystemStart: 07-96-6980Pwnmohm ScreeningTobacco ScreeningProPromedica Memorial Hospital SystemStart: 11-22-2024 End: 61-90-5406HE Pelvis transvaginalUS OB transvaginal Imaging Routine Missed menses Expected: 11/22/2024, Expires: 02/22/2025[facility] Work Phone: comment on above:Expected: 11/22/2024, Expires: 02/22/2025Start: 11-22-2024 End: 99-20-4824Vvgbuzy encounter ybbgrkcnd29/09/2025 1:30 PM EDT Office Visit [facility] OB [address] [place] [address] Nichelle Sanchez PA [address] [place], [place] [id number] [facility] BCP OBStart: 11-02-2024 End: 58-59-2545Ulfzoeb encounter yximpryei97/19/2025 3:40 PM EDT Office Visit [facility] [address] [place] [address] Anita Elmore, ENGAGEMENT LEAD-LEGAL ASSISTANT [address] [place] [address] [facility] MedicineStart: 91-90-6143Kohpj BMI ScreeningAdult BMI ScreeningProPromedica Memorial Hospital SystemStart: 35-29-2776Hbcvnzqfbj ScreeningDepression ScreeningSouthview Medical Center SystemStart: 02-23-7248Qwceexstz for Chlamydia trachomatisChlamydia ScreeningSouthview Medical Center SystemStart: 81-88-0735Xltydkc ScreeningTobacco ScreeningSouthview Medical Center SystemStart: 87-41-9041Sphak BMI ScreeningAdult BMI ScreeningSouthview Medical Center SystemStart: 09-70-3832Nwrsqwmeut ScreeningDepression ScreeningProPromedica Memorial Hospital SystemStart: 96-02-4788Oblhtqd ScreeningTobacco ScreeningSouthview Medical Center SystemStart: 71-08-7180Uplxw BMI ScreeningAdult BMI ScreeningSouthview Medical Center SystemStart: 19-92-3521Mktualvagn ScreeningDepression ScreeningSouthview Medical Center SystemStart: 06-01-2024 End: 98-24-8397Servxtd encounter teybzscfe20/16/2025 8:40 AM EST Office Visit [facility] [address] [place] [address] Anita Elmore, ENGAGEMENT LEAD-LEGAL ASSISTANT [address] [place] [address] [facility] 05-09-2024 End: 24-31-7148Xedswom encounter rhexsxwnu17/24/2024 9:20 AM EST Office Visit [facility] [address] [place] [phone] Loretta Winkler MD [address], [address] [place] [address] ArrivedNOWASHINGTON COUNTY MEMORIAL [facility] ENDOCRINOLOGYComment on above:Arrived Start: 05-08-2024 End: 56-99-9930Qqqnnie encounter sxrtgidej47/23/2024 8:30 AM EST Office Visit [facility] [address] [place] [address] Nichelle Sanchez PA [address] [place], [place] [id number] [facility] BCP OBStart: 05-03-2024 End: 71-34-2091Knobdiccpyk [Units/volume] in Serum or PlasmaTSH Lab Routine Postoperative hypothyroidism Expected: 05/03/2024 (Approximate), Expires: 04/03/2025[facility] Work Phone: Comment on above:Expected: 05/03/2024 (Approximate), Expires: 04/03/2025Start: 05-03-2024 End: 33-27-9379Cjxlkgkcq (T4) free [Mass/volume] in Serum or PlasmaT4, free Lab Routine Postoperative hypothyroidism Expected: 05/03/2024 (Approximate), Expires: 04/03/2025[facility] SystemComment on above:Expected: 05/03/2024 (Approximate), Expires: 04/03/2025Start: 04-10-2024 End: 13-55-7525Onuybit encounter /25/2024 9:10 AM EST Office Visit [facility] [address] [place] [address] Gerardo Meredith DO [address] [place], [place] [id number] [facility] BCP OBStart: 03-31-2024 End: 82-42-0005Hcgrdml encounter zyhrdfokb00/15/2024 8:40 AM EST Office Visit [facility] [address] [place] [address] Anita Elmore, ENGAGEMENT LEAD-LEGAL ASSISTANT [address] [place] [address] [facility] - [facility] MedicineStart: 03-23-2024 End: 95-05-2713Aujzzvwvlfn [Units/volume] in Serum or PlasmaTSH Lab Routine Postoperative hypothyroidism Expected: 03/23/2024 (Approximate), Expires: 02/20/2025[facility] Work Phone: Comment on above:Expected: 03/23/2024 (Approximate), Expires: 02/20/2025Start: 03-23-2024 End: 36-33-2379Kkwdcrafu (T4) free [Mass/volume] in Serum or PlasmaT4, free Lab Routine Postoperative hypothyroidism Expected: 03/23/2024 (Approximate), Expires: 02/20/2025ProClinton [facility] HospitalKingfish Labs Health SystemComment on above:Expected: 03/23/2024 (Approximate), Expires: 02/20/2025Start: 03-07-2024 End: 44-94-8500Lfydqda encounter procedureNOMS BCP OBComment on above:Arrived Start: 02-18-2024 End: 77-67-1868Qikgpkb encounter mtseqeyvn20/04/2024 11:45 AM EDT Office Visit [facility] [address] [place] [address] Anita Elmore, ENGAGEMENT LEAD-LEGAL ASSISTANT [address] [place] [address] [facility] - [facility] MedicineStart: 02-15-2024 End: 46-41-3120Ykidubc encounter lrtfftaov13/01/2024 2:30 PM EDT Office Visit [facility] [address] [place], [id number] Aramis Trejo MD [address] [place] [address] [facility] SurgeryStart: 02-04-2024 End: 61-75-4387Vhbtfenfdskjlwrevjmacranye transoral diagnostic ESOPHAGOGASTRODUODENOSCOPY DIAGNOSTIC dysphagia 02/04/2024 2:30 PM EDTFREMONT ENDOSCOPYStart: 01-25-2024 End: 74-45-2072Shdtdng encounter procedureN[facility]S [facility] OBComment on above:Arrived Start: 09-62-3131HKIVA-19 Vaccine ()COVID-19 Vaccine ()[facility]: 05-83-3217YQDWT-19 Vaccine ()COVID-19 Vaccine ()[facility] System Start: 83-63-0449Bdhkpixrb vaccinationNOPhelps HealthStart: 01-14-2024 End: 57-51-7724Mdnmyfh encounter gxruupfsh57/30/2024 7:30 AM EDT Procedure Visit [facility]P Gerardo Meredith, [address] [place] [address] [facility] EXT DEPStart: 10-29-2023 End: 99-04-3841Huwofrpqzix [Units/volume] in Serum or PlasmaTSH Lab Routine Postoperative hypothyroidism Expected: 10/29/2023 (Approximate), Expires: 11/28/2023[facility] Work Phone: Comment on above:Expected: 10/29/2023 (Approximate), Expires: 11/28/2023Start: 10-28-2023 End: 73-07-2762Hifvopn encounter /13/2024 4:20 PM EDT Office Visit [facility] [address] [place] [address] Anita Elmore, ENGAGEMENT LEAD-LEGAL ASSISTANT [address] [place] [address] [facility] - Family MedicineStart: 10-09-2023 End: 24-64-1223Wdztlpycajl [Units/volume] in Serum or PlasmaTHYROID STIMULATING HORMONE Lab Routine Hypothyroidism (acquired) Expected: 10/09/2023, Expires: [facility] Work Phone: Comment on above:Expected: 10/09/2023, Expires: 01/08/2024Start: 09-09-2023 End: 15-30-1397Dodurhg [Mass/volume] in Serum or PlasmaCALCIUM, TOTAL Lab Routine Hypothyroidism (acquired) Expected: 09/09/2023, Expires: 12/09/2023 [facility]:Expected: 09/09/2023, Expires: 12/09/2023Start: 09-09-2023 End: 69-21-7024Rluithlqlm.intact [Mass/volume] in Serum or PlasmaPTH INTACT Lab Routine Hypothyroidism (acquired) Expected: 09/09/2023, Expires: 12/09/2023 [facility] HospitalComment on above:Expected: 09/09/2023, Expires: 12/09/2023Start: 08-18-2023 End: 87-52-317731096237-Neduivgswyxahkmwvga [Mass/volume] in Serum or Plasma HYDROXYPROGESTERONE-17 Lab Routine PCOS (polycystic ovarian syndrome) Expected: 08/18/2023, Expires: 11/17/2023[facility] Work Phone: Comment on above:Expected: 08/18/2023, Expires: 11/17/2023Start: 08-18-2023 End: 16-45-9695ZQCJZEDNCESE, FREE AND TOTALTESTOSTERONE, FREE AND TOTAL Lab Routine PCOS (polycystic ovarian syndrome) Expected: 08/18/2023, Expires: 11/17/2023[facility] Work Phone: Comment on above:Expected: 08/18/2023, Expires: 11/17/2023Start: 08-02-2023 End: 66-59-8448Mnbfw metabolic 2000 panel - Serum or PlasmaBASIC METABOLIC PNL Lab Routine Thyroiditis Expected: 08/02/2023, Expires: 11/01/2023[facility] Work Phone: Comment on above:Expected: 08/02/2023, Expires: 11/01/2023Start: 08-02-2023 End: 05-16-9291ULS panel - Blood by Automated countCBC Lab Routine Thyroiditis Expected: 08/02/2023, Expires: 11/01/2023[facility] Work Phone: Comment on above:Expected: 08/02/2023, Expires: 11/01/2023Start: 49-17-3877Easngtbscn Health ScreeningBehavioral Health ScreeningCleOhioHealth Doctors Hospitaltart: 19-08-9533Yoqfelmmgj AssessmentDepression AssessmentAultman Hospitaltart: 61-56-2690Pzmoj-19 Vaccine ( season) Covid-19 Vaccine ()[facility]: 21-36-4693Dynvvzlct vaccinationAultman Hospitaltart: 78-20-6055Txmed BMI Follow Up PlanAdult BMI Follow Up PlanSouthview Medical Center SystemStart: 62-78-4400YZFCHATXQ SCREENING (18-24)CHLAMYDIA SCREENING (18-24)[facility]: 45-94-1921GU (GONORRHEA) SCREENING (18-24)GC (GONORRHEA) SCREENING (18-24)[facility] Start: 09-26-6305ZNKWAQEVP C SCREENINGHEPATITIS C SCREENINGSamaritan Hospital Start: 98-68-8360Rsorshznd C screeningHepatitis C ScreeningSamaritan Hospital Start: 48-43-7118USI SCREENINGHIV SCREENINGAultman Hospitaltart: 87-55-0981RGA screeningHIV ScreeningAultman Hospitaltart: 78-69-8641Pvgiasmzy for Chlamydia trachomatisChlamydia Screening (18-)[facility]: 05-17-2022 DEPRESSION ASSESSMENTDEPRESSION ASSESSMENTAultman Hospitaltart: 01-15-2022 Influenza vaccinationINFLUENZA (#1)[facility]: 62-48-8210DHUBT-19 VACCINE (3 - Booster for Pfizer series)COVID-19 VACCINE (3 - Booster for Pfizer series)[facility]: 03-31-8134Ddnybboeqhnyg B Vaccine: Consider Based On Risk (1 of 2 - Patient Seeks Protection)Meningococcal B Vaccine: Consider Based On Risk (1 of 2 - Patient Seeks Protection)[facility]: 41-28-2620ZFQQQYYTTMFZO CONJUGATE (1 - 2-dose series)MENINGOCOCCAL CONJUGATE (1 - 2-dose series)[facility]: 46-93-4047NQDOUKALC SCREENING (<18) CHLAMYDIA SCREENING (<18)[facility]: 66-63-0743FO (GONORRHEA) SCREENING (<18)GC (GONORRHEA) SCREENING (<18)[facility]: 2018 PEDS TO ADULT TRANSITION ANNUAL ASSESSMENTPEDS TO ADULT TRANSITION ANNUAL ASSESSMENTAultman Hospitaltart: 94-02-5694Wvcut depression screening assessment DEPRESSION SCREENINGAultman Hospitaltart: 76-19-1961YHMM TO ADULT TRANSITION INITIAL DISCUSSIONPEDS TO ADULT TRANSITION INITIAL DISCUSSIONSamaritan Hospital Start: 61-51-8162Ofsfshi ScreeningTobacco ScreeningSouthview Medical Center SystemStart: 41-26-3931KRY VACCINE (1 - 2-dose series)HPV VACCINE (1 - 2-dose series) [facility]: 97-30-3877WEXQXOIVCOWIA B: Consider based on risk (1 of 2 - Risk Bexsero 2-dose series)MENINGOCOCCAL B: Consider based on risk (1 of 2 - Risk Bexsero 2-dose series)[facility]: 32-83-6240XSL VACCINE (1 - 2- dose series)HPV VACCINE (1 - 2-dose series)[facility]: 2011 Urine microalbumin profileDTAP,TDAP,TD (1 - Tdap)[facility]: 97-67-0362MTG (1 of 2 - Standard series)MMR (1 of 2 - Standard series)[facility]: 43-65-6865XFTXXDEAT (1 of 2 - 2-dose childhood series)VARICELLA (1 of 2 - 2-dose childhood series)[facility]: 81-64-3453CGVFY (1 of 3 - 4-dose series)POLIO (1 of 3 - 4-dose series)[facility]: 2004 HEPATITIS B (1 of 3 - 3-dose series)HEPATITIS B (1 of 3 - 3-dose series) [facility] HospitalVqzwnj69-Sbmvbnezfjtfabpziwf [Mass/volume] in Serum or Plasma HYDROXYPROGESTERONE-17 Lab Routine PCOS (polycystic ovarian syndrome) 08/25/2023 8:23 AM [facility] Work Phone: Alanine aminotransferase [Enzymatic activity/volume] in Serum or PlasmaALT Lab Routine Second trimester ([facility]) Ordered: 03/26/2025[facility] Work Phone: comment on above:Ordered: 03/26/2025spartate aminotransferase [Enzymatic activity/volume] in Serum or PlasmaAST Lab Routine Second trimester ([facility]) Ordered: 03/26/2025[facility] HealthcareComment on above:Ordered: 03/26/2025acteria identified in Urine by CultureUrine culture Microbiology Routine Missed menses Ordered: 12/07/2024[facility] HealthcareComment on above:Ordered: 12/07/2024BC W Auto Differential panel - BloodCBC and differential Lab Routine Missed menses , unspecified gestational age ([facility]) Ordered: 12/07/2024[facility] HealthcareComment on above:Ordered: 12/07/2024 CHLAMYDIA TRACHOMATIS (GENITO/STI)CHLAMYDIA TRACHOMATIS (GENITO/STI) Lab Routine Exposure to STD Ordered: 01/02/2025[facility] HealthcareComment on above:Ordered: 01/02/2025 End: 86-89-8014VQH COMPLETEECG COMPLETE ECG Routine Thyroiditis 1 Occurrences starting 08/02/[address] [place] [address] Work Phone: Comment on above:1 Occurrences starting 08/02/2023 until 08/01/2024Hemoglobin A1c/Hemoglobin.total in BloodHemoglobin A1c Lab Routine Missed menses , unspecified gestational age ([facility]) Ordered: 12/07/2024[facility] HealthcareComment on above:Ordered: 12/07/2024Hepatitis B virus surface Ag [Presence] in Serum or Plasma by ImmunoassayHepatitis B surface antigen Lab Routine Missed menses , unspecified gestational age ([facility]) Ordered: 12/07/2024[facility] HealthcareComment on above:Ordered: 12/07/2024 Hepatitis C virus Ab [Presence] in Serum or Plasma by ImmunoassayHepatitis C antibody Lab Routine Missed menses , unspecified gestational age ([facility]) Ordered: 12/07/2024[facility] HealthcareComment on above:Ordered: 12/07/2024 HIV-1/HIV-2 antigen/antibody combination immunoassayHIV-1 and HIV-2 antibodies Lab Routine Missed menses , unspecified gestational age ([facility]) Ordered: 12/07/2024[facility] HealthcareComment on above:Ordered: 12/07/2024Neisseria gonorrhoeae DNA [Presence] in Unspecified specimen by SWAPNA with probe detection Neisseria gonorrhea DNA probe, direct Lab Routine Exposure to STD Ordered: 01/02/2025[facility] HealthcareComment on above:Ordered: 01/02/2025Reagin Ab [Presence] in Serum by RPRRPR Lab Routine Missed menses , unspecified gestational age ([facility]) Ordered: 12/07/2024[facility] HealthcareComment on above: Ordered: 12/07/2024Rubella antibody, IgGRubella antibody, IgG Lab Routine Missed menses , unspecified gestational age ([facility]) Ordered: 12/07/2024[facility] HealthcareComment on above:Ordered: 12/07/2024SURESWAB(R) ADVANCED VAGINITIS PLUS, TMASURESWAB(R) ADVANCED VAGINITIS PLUS, TMA Pathology and Cytology Routine Vaginal discharge Ordered: 01/02/2025[facility] Work Phone: comment on above:Ordered: 01/02/2025TESTOSTERONE, FREE AND TOTALTESTOSTERONE, FREE AND TOTAL Lab Routine PCOS (polycystic ovarian syndrome) 08/25/2023 8:23 AM [facility] Work Phone: End: 95-14-9471Nbdhglzbbok [Units/volume] in Serum or PlasmaTSH Lab Routine Thyroid disease H/O thyroidectomy j8jxfpu for 10 Occurrences starting 01/02/2025 until 01/02/2026[facility] HealthcareComment on above:b5wzerp for 10 Occurrences starting 01/02/2025 until 01/02/2026 End: 95-37-1545Mzrqykujd (T4) free [Mass/volume] in Serum or PlasmaT4, free Lab Routine Postoperative hypothyroidism 1 Occurrences starting 10/29/2023 until 11/28/2023[facility]Comment [facility] above:1 Occurrences starting 10/29/2023 until 11/28/2023 End: 10-69-5778Ixvjnrtkw (T4) free [Mass/volume] in Serum or PlasmaT4, free Lab Routine Postoperative hypothyroidism 1 Occurrences starting 03/31/2024 until 03/31/2025[facility] Work Phone: Comment on above:1 Occurrences starting 03/31/2024 until 03/31/2025 End: 85-59-7152Og soft tissue head & neck real time imge docmUS THYROID/PARATHYROID Radiology Routine Abnormal thyroid blood test History of thyroid nodule 1 Occurrences starting 04/15/2022 until 05/15/2023[facility] Work Phone: Comment on above:1 Occurrences starting 04/15/2022 until 05/15/2023[facility] Immunizations Immunization DateImmunizationNotesCare OeiganghXyqnwqcv38-71-1222Ewwvo-97, Mrna, Lnp-s, Pf,teresa-sucrose,30 Mcg/0.3ml Qacw50Cjlisv Rauch ENGAGEMENT LEAD-LEGAL ASSISTANT Work Phone: [facility] CenterTzeprl20-88-1871Xdzkgoeundwb, In Clinic,; Translations: [Drug or medicament (substance)]Anita Elmore ENGAGEMENT LEAD-LEGAL ASSISTANT Work Phone: [facility] CenterJrptxo31-54-0003jninhpkxt, seasonal, injectable, preservative freeAnita Elmore ENGAGEMENT LEAD-LEGAL ASSISTANT Work Phone: [facility] CenterVwrvyf72-47-2311Ftttbbzldtcx, In Clinic,; Translations: [Drug or medicament (substance)]Anita Elmore ENGAGEMENT LEAD-LEGAL ASSISTANT Work Phone: [facility] CenterDqidtv88-11-1205xsahfmrot virus vaccine, unspecified formulationCorey Viri DO Work Phone: [facility] HospitalUlpzvflgws14-47-8954obsmgkldl, injectable, quadrivalent, preservative freeAnita GutierresUNC Health Rockingham Work Phone: [facility] CenterWqevrq31-42-7411fbwhkohbl virus vaccine, unspecified formulationlarry [facility] Work Phone: [facility] CenterNeyedo38-41-4245gpytgpzst A vaccine, pediatric/adolescent dosage, 2 dose schedulelarry Catarina [facility] Work Phone: [facility]08-12-2022Human Papillomavirus 9-valent vaccineHackensack University Medical Center Work Phone: [facility] CenterKpuoev80-15-9870wcannwvdnhekz oligosaccharide (groups A, C, Y and W-135) diphtheria toxoid conjugate vaccine (MCV4O)Anita [facility] Work Phone: [facility] CenterWvtvti42-61-4655pbofmeubls skin test; purified protein derivative solution, intradermalNemours Foundation-[facility] Work Phone: [facility] CenterQnpqkp56-97-2413xubuqnbrmw skin test; purified protein derivative solution, intradermalHackensack University Medical Center Work Phone: [facility] CenterMmkosc92-77-0380ifghsqmlr, injectable, quadrivalent, contains preservativeKaitlin Schwerer Other [facility] [employer] Other 1848343-32-5823gitccruty virus vaccine, unspecified formulationUlt[facility] Work Phone: [facility] HospitalLxyajh10-73-0391txooois toxoid, reduced diphtheria toxoid, and acellular pertussis vaccine, adsorbedBrCarolina Pines Regional Medical Center Work Phone: [facility]07-11-2016human papilloma virus vaccine, quadrivalentKaitlin Schwerer Other [employer] Other [id number]ldq polysaccharide (groups A, C, Y and W-135) diphtheria toxoid conjugate vaccine (MCV4P)Aime Goff Other [place] [employer] Other [id number], tetanus toxoids and acellular pertussis vaccine, and poliovirus vaccine, inactivatedBrlarry [facility] Work Phone: [facility] HospitalLongfan [facility] [place] Ntuwlx68-87-3004plbsdzx, mumps and rubella virus vaccineiana [facility] Work Phone: [facility] [employer] Rdabwx28-46-7290dqchdvbnh virus vaccineHackensack University Medical Center Work Phone: [facility] [employer] Kgkdev60-08-2500krzvtwbexj, tetanus toxoids and acellular pertussis vaccinelarry [facility] Work Phone: [facility] CenterYlejep08-89-0855qckhzddccx, tetanus toxoids and acellular pertussis vaccineiana [facility] Work Phone: [facility] [employer] Jmcjen30-72-8784kuvogqyumuu influenzae type b vaccine, PRP-T conjugatelarry [facility] Work Phone: [facility] [employer] Bmskzh49-87-8500yexauyv, mumps, rubella, and varicella virus vaccineBriana [facility] Work Phone: [facility] [employer] Glxhis78-65-7959noiboupqwtqb conjugate vaccine, 7 valentBriana Catarina [facility] Work Phone: [facility] HospitalLongfan [facility] [place] Lrnvmy80-89-4458dzpfmvvvqo vaccine, inactivatedAnita [facility] Work Phone: [facility] [employer] Aqhhfg87-49-6705lqpylzrxxq, tetanus toxoids and acellular pertussis vaccinelarry [facility] Work Phone: [facility] CenterPnbqyt63-66-7370zszdxvblpph influenzae type b conjugate and Hepatitis B vaccineBriana Catarina ENGAGEMENT LEAD-LEGAL ASSISTANT Work Phone: [facility] CenterLbafdy80-44-0054orhayjwql, seasonal, injectableBriana Catarina ENGAGEMENT LEAD-LEGAL ASSISTANT Work Phone: [facility] CenterPkqyem14-95-4946bucujblckwcx conjugate vaccine, 7 valentBriana Catarina ENGAGEMENT LEAD-LEGAL ASSISTANT Work Phone: [facility] CenterCxssdi52-77-1012dzicxbwisq vaccine, inactivatedBriana Catarina ENGAGEMENT LEAD-LEGAL ASSISTANT Work Phone: [facility] CenterWyxluo41-48-5443ytfgddzxgg, tetanus toxoids and acellular pertussis vaccineBriana Catarina ENGAGEMENT LEAD-LEGAL ASSISTANT Work Phone: [facility] CenterIyjrrq96-90-6194cufkeaqwfve influenzae type b conjugate and Hepatitis B vaccineBriana Catarina ENGAGEMENT LEAD-LEGAL ASSISTANT Work Phone: [facility] CenterEknbyg69-85-5051nckfnjklwkun conjugate vaccine, 7 valentBriana Catarina ENGAGEMENT LEAD-LEGAL ASSISTANT Work Phone: [facility] CenterXjtzwa35-85-2643ysmhzupuss vaccine, inactivatedBriana Catarina ENGAGEMENT LEAD-LEGAL ASSISTANT Work Phone: [facility] CenterJsjekb98-65-7887suyuszlfq B vaccine, pediatric or pediatric/adolescent dosageBriana Catarina ENGAGEMENT LEAD-LEGAL ASSISTANT Work Phone: [facility] Payers DatePayer CategoryPayerPolicy [id number] [facility] Member Subscriber Plan / Payer (Effective 2024-Present) Name: CharsheronbarSheyla I Relation to Subscriber: Self Name: Sheyla Lea Zaida Payer ID: [id number] (NAIC) Group ID: [id number] Type: Not on file Address: [address] [id number] Health InsuranceBUCYR[facility] MEDICA[facility] Member Subscriber Plan / Payer (Effective 2024-Present) Name: Sheyla Lea Relation to Subscriber: Self Name: Sheyla Lea Payer ID: Not on file Group ID: Not on file Type: Not on file Address: [address] [place] [id number] [id number] Private Health [id number]-zus [id number] Cross Blue [facility] [id number] Clinic Luther[facility] Managed Care - OtherANTHEM Member Subscriber Plan / Payer (Effective 2017- Present) Name: Sheyla Lea I MemberID: [id number] Relation to Subscriber: Child Name: MIRNA SAMUEL Date of : 1976 Address: [address] [place] [address] Payer ID: [id number] (NAIC) Type: Not on file Address: [address] [place] [id number] Cross Blue Shield Managed Care - PPOANTHEM Member Subscriber Plan / Payer (Effective 2014-Present) Name: Sheyla Lea I MemberID: [id number] Relation to Subscriber: Child Name: SEAN SAMUEL Date of : 1979 Address: [address] [place] [address] Payer ID: [id number] (NAIC) Type: Not on file Address: [facility] [id number] [place] [id number] 1.2.840.894602.1.13.159.2.7.3.716700.71348-45-1158DepnwchQOBQU914524067-34-2284 [id number] 2.16.840.1.572212.3.57[id number] 2.16840.1.990983.3.57[id number] 2.16840.1.744814.3.57[id number] 2.16840.1.011157.3.57[id number] 2.16840.1.379144.3.57[id number] 2.16840.1.560907.3.579.2.39896-08-7594Cwrdtqe22007568 2.16.840.1.017387.3.57[id number] 2.16840.1.684716.3.579.[id number] 2.16840.1.965416.3.579.[id number] 2.840.1.716738.3.579.2.520739-39-6578Pignigo16042143 2.840.1.170091.3.579.2.7[id number] 2.840.1.972384.3.579.2.236776-50-9937Oorzzwv37793691 2.0.1.110846.3.579.2.[id number] 2.0.1.769119.3.579.2.7[id number] 2.0.1.478706.3.57[id number] 2.0.1.460734.3.579.2.6[id number] 2.0.1.117800.3.579.[id number] 2..1.210739.3.579.2.776255-01-9782Urngkjc415076125 2.0.1.944692.3.579.2.[id number] 2.0.1.986045.3.579.2.461808-09-9034Mieaher38023373 2.840.1.849759.3.579.2.504955-88-8291Fgdjzlm95181310 2.840.1.578128.3.579.2.[id number] 2.16.840.1.510989.3.579.2.679875-19-7644Ntkgleq69133493 2.16.840.1.369088.3.579.[id number] 2.16.840.1.334446.3.579.2.596299-02-1955Vmjdamw75341890 2..840.1.527654.3.579.2.497058-33-6490Dhyfrkv46123690 2..840.1.091304.3.579.2.046381-55-5776Jystfic16768377 2..840.1.565324.3.579.2.[id number] 2.0.1.681576.3.579.2.915327-18-5531Qacfskj7699905 2.0.1.386113.3.579.2.793764-35-7006Jmrvecw0256271 2.0.1.901020.3.579.2.059975-47-3080Ykhqphu3506793 2.840.1.317333.3.579.2.718UnknownReverify Xuslajpvl323-68-1080 ba43cn0k-0190-65kf-cwf0-[id number] 2.840.1.394[id number] 2.0.1.156806.3.579.2.531 [id number] 2.0.1.131924.3.579.2.531 Social History DateTypeDetailFacilityStart: 04-15-2022 End: 98-60-0857Tncifgv smoking status NHISNever smoked tobaccoSamaritan Hospital History of tobacco usePassive smokerAultman Hospitaltart: 04-15-2022 End: 17-46-2252Mnejrol use and exposureSmokeless tobacco non-userAultman Hospitaltart: 04-15-2022 End: 01-70-8350Vrmwahc intakeCurrent non-drinker of alcohol (finding)[facility]: 56-97-0412Aqxaetj Commentmom & dad both smoke in houseAultman Hospitaltart: 64-46-6684Tow Assigned At BirthNot on fileAultman Hospitaltart: 04-05-2022 End: 23-02-1216Zeyawtgn to SARS-CoV-2 (event)Not sureAultman Hospitaltart: 04-15-2022 End: 49-95-8353Wlk Assigned At BirthDuke University Hospitaltart: 67-50-3155Etz Assigned At BirthOhioHealth Shelby Hospitaltart: 04-15-2022 End: 52-46-8222Xdmwadl of Social functionDuke University Hospitaltart: 53-54-2604Yepfzcnh Score (1-100), lower number is lower riskNot on [facility] Hospitalt[facility]: 01-25-2024 End: 58-15-2849Moglthtor beverage intakeLifetime non-drinker (finding)[facility] HealthcareStart: 35-25-0414Dmggbh identityIdentifies as female gender (finding) [facility] HospitalStart: 89-93-3800SndYbemyb (finding)[facility]: 73-21-1386OtmyhpcasIGGD HealthcareStart: 12-28-2024 End: 53-16-6331Wbzyxhmrd beverage intakeEx-drinker (finding)[facility] Goals DatePatient GoalDesired Activity/StatePersonal health goalPersonal health goal Clinical Notes 06-17-2017 to 03-26-2025 Note Date & PuurGuxqWehadtnx24-86-0835 History of Present illness Narrative* Aline Newberry LPN - 03/26/2025 2:00 PM EST Reason for Appointment: Patient ID: Sheyla Lea [...] Oral, Daily before breakfast levothyroxine (SYNTHROID, LEVOXYL) 100 mcg, Oral, Daily before breakfast liothyronine (CYTOMEL) [...] History Problem Relation Name Age of Onset Thyroid disease Mother sean samuel Other (Seizure disorder) Brother Breast cancer Maternal Grandmother indra samuel Thyroid disease Maternal Grandmother indra samuel Cancer Maternal Grandmother indra samuel Breast cancer Paternal Grandmother Alesha Hofacker Seizures Brother Gonzalo Samuel Seizures Brother Gonzalo Samuel Seizures Brother Gonzalo Samuel Seizures Brother Gonzalo Samuel SURGICAL HISTORY Past Surgical History: Procedure Laterality [...] nursing note reviewed. Exam conducted with a calender runner present. Vitals: Estimated body mass index is 43.6 kg/m as calculated from the following: Height as of 24: 5' 3 . Weight as of this encounter: 246 lb 1.9 oz. BP: 120/70 Patient's last menstrual period was 10/02/2024. Assessment/Plan ICD-10-CM 1. Second trimester ([facility]) Z34.92 2. 23 weeks gestation of ([facility]) Z3A.23 POCT urinalysis dipstick manually resulted Patient presents today for a routine obstetrics appointment. Patient is currently 23w2d with a Estimated Date of Delivery: 07/21/25. Will order AST/ALT/1* Gtt/CBC. Patient to return to clinic in 4 weeks for routine OB appointment. Documented by Aline Newberry LPN on behalf of: Gerardo Meredith DO documented in this encounterColumbia Regional HospitalImlgrhfuej94-01-9922 History of Present illness Narrative* Bella StricklandVALERIA - 02/28/2025 2:00 PM EDT Reason for [...] nursing note reviewed. Exam conducted with a calender runner present. Vitals: Estimated body mass index is 42.78 kg/m as calculated from the following: Height as of 24: 5' 3 . Weight as of this encounter: 241 lb 8 oz. BP: 126/72 Patient's last menstrual period was 10/02/2024. ASSESSMENT & PLAN ICD-10-CM 1. Second trimester ([facility]) Z34.92 POCT urinalysis dipstick manually resulted 2. 19 weeks gestation of ([facility]) Z3A.19 3. Thyroid disease E07.9 Patient presents today for a routine obstetrics appointment. Patient is currently 19w4d with a Estimated Date of Delivery: 07/21/25. Pt advised to have tsh drawn every 4 weeks during . Pt to have anatomy scan at [facility] on 03/13. Pt to start baby aspirin [...] samuel Breast cancer Paternal Grandmother Alesha Lea [4] Past Surgical History: Procedure Laterality Date ADENOIDECTOMY LAPAROSCOPY DIAGNOSTIC / BIOPSY / ASPIRATION / LYSIS 01/14/2024 OTHER SURGICAL HISTORY 12/28/2019 nexplanon insertion THYROIDECTOMY 09/03/2023 TONSILLECTOMY documented in this encounterColumbia Regional HospitalVgprrdzgtj41-33-8850 History of Present illness Narrative* ELIJAH Martinez - 01/31/2025 4:00 PM EDT Reason for Appointment: Patient ID: [...] PLAN ICD-10-CM 1. 15 weeks gestation of ([facility]) Z3A.15 POCT urinalysis dipstick manually resulted Alpha fetoprotein, maternal Alpha fetoprotein, maternal 2. Second trimester ([facility]) Z34.92 POCT urinalysis dipstick manually resulted Alpha fetoprotein, maternal Alpha fetoprotein, maternal 3. Screening, , for anatomic survey ([facility]) Z36.89 CANCELED: US OB 14+ weeks [...] behalf of: ELIJAH Martinez documented in this encounterColumbia Regional HospitalElbcqzlxph06-81-1981 History of Present illness Narrative* Bella Strickland, VALERIA - 01/02/2025 11:10 AM EDT Reason for Appointment: Patient ID: Sheyla [...] nursing note reviewed. Exam conducted with a calender runner present. Vitals: Estimated body mass index is 41.45 kg/m as calculated from the following: Height as of 24: 5' 3 . Weight as of this encounter: 234 lb. BP: 108/70 Patient's last menstrual period was 10/02/2024. ASSESSMENT & PLAN ICD-10-CM 1. 11 weeks gestation of ([facility]) Z3A.11 POCT urinalysis dipstick manually resulted 2. First trimester ([facility]) Z34.91 POCT urinalysis dipstick manually resulted 3. [...] of: Gerardo Meredith DO documented in this encounterColumbia Regional HospitalKstgtoklyi20-83-0693 History of Present illness Narrative* Kanchan Guzmán RN - 12/29/2024 10:00 AM EDT Headache/epigastric pain/blurry vision/swelling? No Cramping/contractions? Patient reports [...] Yes Have you been seen here at [facility] in a previous ? No Recent ER visits or hospitalizations? Patient reports Anoop ED visit around 8/4, nausea, concernfor thryroid function Bring blood sugar log or meter with you today? (Please bring them with you for every visit at [facility]) N/A Flu vaccine (Mar-July)? N/A Any concerns that you would like me to mention to the provider today? No * Yuval Loya MD - 12/29/2024 10:00 AM EDT REASON FOR CONSULTATION: Postsurgical hypothyroidism. HISTORY OF [...] Since then the patient has been under lead quality control technician treatment. However the patient now wants to switch lead quality control technician. She would prefer endocrinology from [place]. Most recent free T4 within normal limits. [...] Date ESOPHAGOGASTRODUODENOSCOPY DIAGNOSTIC N/A 02/04/2024 Performed by Rene Pittman DO at [facility] EUSTACHIAN TUBE DILATION Bilateral 06/28/2017 Performed by Abdullahi Cavazos MD at [facility] MYRINGOTOMY W/ TUBES 2010 PELVIC LAPAROSCOPY 01/28/2024 THYROIDECTOMY 09/03/2023 TONSILLECTOMY ADENOIDECTOMY Bilateral 06/28/2017 Performed by Abdullahi Cavazos MD at [facility] ALLERGIES: No Known Allergies CURRENT MEDICATIONS: Current [...] mg total) by mouth in the morning., Disp:, Rfl: ondansetron ODT (ZOFRAN ODT) 4 mg disintegrating tablet, DISSOLVE 1 TABLET (4 MG TOTAL) ON TONGUE EVERY 8 HOURS NEEDED FOR NAUSEA AND VOMITING, Disp: 20 tablet, Rfl: 1 pantoprazole (PROTONIX) 20 mg EC tablet, TAKE 1 TABLET (20 MG TOTAL) BY MOUTH IN THE MORNING, Disp:90 tablet, Rfl: 1 venlafaxine XR (EFFEXOR XR) [...] mg total) by mouth every 6 (six) hoursas needed for nausea or vomiting. (Patient not taking: Reported on 12/29/2024), Disp: , Rfl: FAMILY/GENETIC HISTORY: No family history of VTE, cardiac defects and mental retardation . RECENT HOSPITALIZATION: none I did review all the labs results available in addition to labs which were ordered by the primary care physician, and the other consultants, we search on [employer] and all the available care everywhere epic I did review all the imaging studies of the patient available on EMR, ordered by the primary care physician and the other lifestyle consultant HABITS: Patient activity no restrictions, diet [...] to Hellen s thyroiditis. If this occurs, therecan be antibodies circulating in the patient which cross the placenta and act on the fetus. The fetus can then develop a goiter. Although this is rare, but can be found if the maternal circulating antibodies are elevated. Some of the complications in associated with untreated or partially treated hypothyroidism are preeclampsia, abruption, and low weight. When the maternal free T4 is verylow in , the is at risk for impaired psychomotor function and a significantly lowerIQ. Therefore, recommendations are to maintain serum TSH 0.5-2.0 microIU/ml and Free T4 in the upper third of normal range. Measure TSH and Free T4 every 4 weeks and patient should go back to pre- dosing in the PP period. RECOMMENDATION: 1. Continue Synthroid and Cytomel with every 4 weeks free T4 2. Referral to Dr. Haji endocrinology at [place]. 3. Targeted anatomy at 20 weeks gestation at our [facility] site. 4. Serial growth ultrasounds every 4 [...] patient is in complete care of her wound care center consultant. Patient does have ultrasound office visit scheduled with us. Thank you for allowing me to participate in Sheyla Lea . If there any questions please do nothesitate to contact us. Sincerely, YUVAL LOYA MD documented in this encounterCincinnati Children's Hospital Medical Center08-05-2025 History of Present illness Narrative* Bella Strickland, VALERIA - 12/19/2024 1:00 PM [...] nursing note reviewed. Exam conducted with a calender runner present. Vitals: Estimated body mass index is 41.12 kg/m as calculated from the following: Height as of 05/09/24: 5' 3 . Weight as of this encounter: 232 lb 1.9 oz. BP: 118/78 Patient's last menstrual period was 10/02/2024. ASSESSMENT & PLAN ICD-10-CM 1. First trimester ([facility]) Z34.91 POCT urinalysis dipstick manually resulted 2. 9 weeks gestation of ([facility]) Z3A.09 POCT urinalysis dipstick manually resulted 3. Encounter to discuss test results Z71.2 Pt is 9 weeks 3 days and was seen in ER for nausea and vomiting. Rx for antivert and mag oxide faxed to pharmacy. Pt being referred to [facility] for thyroid disease in and referred to [facility] for zofran pump. Pt to return in 4 weeks for scheduled OB appt. Documented by Bella Strickland LPN on behalf of: Gerardo Meredith DO documented in this encounterColumbia Regional HospitalGxghhencpz80-04-8003 History of Present illness Narrative* Tabitha Rice LPN - 12/07/2024 2:30 PM [...] dipstick manually resulted , unspecified gestational age ([facility]) - Type and screen; Future - ABO/Rh; Future - CBC and differential - Hemoglobin A1c - RPR - Rubella antibody, IgG - Hepatitis B surface antigen - Hepatitis C antibody - HIV-1 and HIV-2 antibodies - Rapid drug screen, urine; Future Encounter for supervision of normal first in first trimester ([facility]) - Rapid drug screen, urine; Future Nurse [...] or undercooked meat, and stay away from [facility]. Patient has also been advised to not [...] by: Tabitha Rice LPN documented in this encounterColumbia Regional HospitalQrfjzeyihn87-59-8748 History of Present illness Narrative* ELIJAH Martinez - 11/22/2024 1:30 PM EDT Reason for Appointment: Patient ID: [...] nursing note reviewed. Exam conducted with a calender runner present. Vitals: Estimated body mass index is 40.23 kg/m as calculated from the following: Height as of 24: 5' 3 . Weight as of this encounter: 227 lb 1.9 oz. BP: 128/80 Patient's last menstrual period was 10/02/2024. ASSESSMENT & PLAN ICD-10-CM 1. Nausea R11.0 2. Cramping affecting , antepartum ([facility]) O26.899 POCT , urine manually resulted R10.9 [...] behalf of: ELIJAH Martinez documented in this encounterColumbia Regional HospitalLbxyxbmsoj93-93-6541 History of Present illness Narrative* Bella Strickland LPN - 04/10/2024 9:10 AM EST Reason for Appointment: Patient ID: Sheyla Lea [...] nursing note reviewed. Exam conducted with a calender runner present. Vitals: Estimated body mass index is [...] focused. Pt to return in 4 weeks for3rd script. Documented by Bella Strickland LPN on behalf of: Gerardo Meredith DO documented in this encounterColumbia Regional HospitalJcufaiphuv29-46-5709 History of Present illness Narrative* Anita Elmore APRN-LEGAL ASSISTANT - 03/31/2024 8:40 AM EST [address] [place] [address] Patient: Sheyla Lea Date of : 2005 [...] the conversation she noted she is considering apossible soon. Patient has been struggling with GERD [...] cutting down on caffeine but she still findsherself taking Tums. Patient is also here to [...] past medical history, past social history, past surgicalhistory and problem list. Past Medical History: Diagnosis Date Allergic seasonal Anxiety Depression Hypothyroidism PCOS (polycystic ovarian syndrome) Visual impairment Past Surgical History: Procedure Laterality Date ESOPHAGOGASTRODUODENOSCOPY DIAGNOSTIC N/A 02/04/2024 Performed by Rene Pittman DO at [facility] EUSTACHIAN TUBE DILATION Bilateral 06/28/2017 Performed by Abdullahi Cavazos MD at [facility] MYRINGOTOMY W/ TUBES 2010 PELVIC LAPAROSCOPY 01/28/2024 THYROIDECTOMY 09/03/2023 TONSILLECTOMY ADENOIDECTOMY Bilateral 06/28/2017 Performed by Abdullahi Cavazos MD at [facility] Current Outpatient Medications Medication Sig Dispense Refill buPROPion SR (WELLBUTRIN SR) 150 mg 12 hr tablet Take 1 tablet (150 mg total) by mouth in the morning. clindamycin-benzoyl peroxide (BENZACLIN) gel APPLY TO AFFECTED AREA TOPICALLY IN THE MORNING AND ATBEDTIME 25 g 1 metFORMIN (GLUCOPHAGE) 500 mg [...] patient can not stop as symptoms are notwell controlled. She was offered a 2nd opinion [...] ANDREW EARL APRN-CNP 04/04/242143 documented in this encounterSelect Medical [facility], BeachwoodIntellio10-22-2024 History of Present illness Narrative* Bella Strickland LPN - 03/07/2024 1:50 PM EDT Reason for Appointment: Patient ID: [...] Past Medical History: Diagnosis Date Hypothyroidism (acquired) ([facility]) Irregular menses 2019 HISTORY PAST MEDICAL HISTORY SOCIAL HISTORY Past Medical History: Diagnosis Date Hypothyroidism (acquired) ([facility]) Irregular menses 2019 Social History Tobacco Use [...] nursing note reviewed. Exam conducted with a calender runner present. Vitals: Estimated body mass index is [...] the last two months. Discussed adding wellbutrin vsincreasing effexor. Pt to add wellbutrin to see if helps with mood. Discussed Adipex and wanting toconceive. Pt currently on control to regulate periods. Pt to stop OCP. Pt to return in 4 weeks for scheduled adipex. Documented by Bella Strickland LPN on behalf of: Gerardo Meredith DO documented in this encounterColumbia Regional HospitalBzfmmgkgqb47-15-2520 Miscellaneous Notes* Telephone Encounter - Asad Sam CMA - 02/23/2024 10:54 AM EDT I called pt and read result note. Pt verbally states she understands. documented in this encounterCincinnati Children's Hospital Medical Center10-09-2024 Telephone encounter Note* Telephone Encounter - Asad Sam CMA - 02/23/2024 10:54 AM EDT I called pt and read result note. Pt verbally states she understands. The [facility]ull[facility] medical centerCamerborn Dexwcv64-82-6463 History of Present illness Narrative* Anita Elmore APRN-JOSE LUIS - 02/18/2024 11:45 AM EDT [address] [place] [address] Patient: Sheyla Lea Date of : 2005 Encounter Date: 02/18/2024 History of Present Illness: The patient is a 18 y.o. female, an established patient, and is here for Chief Complaint Patient presents with post op . HPI Patient is here to follow-up on her EGD results through Dr. Pittman. Patient saw GI in [place] 1 [...] having more migraines lately to her right rastafarian area when she moves her head and [...] past medical history, past social history, past surgicalhistory and problem list. Past Medical History: Diagnosis Date Allergic seasonal Anxiety Depression Hypothyroidism PCOS (polycystic ovarian syndrome) Visual impairment Past Surgical History: Procedure Laterality Date ESOPHAGOGASTRODUODENOSCOPY DIAGNOSTIC N/A 02/04/2024 Performed by Rene Pittman DO at [facility] EUSTACHIAN TUBE DILATION Bilateral 06/28/2017 Performed by Abdullahi Cavazos MD at [facility] MYRINGOTOMY W/ TUBES 2010 PELVIC LAPAROSCOPY 01/28/2024 THYROIDECTOMY 09/03/2023 TONSILLECTOMY ADENOIDECTOMY Bilateral 06/28/2017 Performed by Abdullahi Cavazos MD at [facility] Current Outpatient Medications Medication Sig Dispense [...] AFFECTED AREA TOPICALLY IN THE MORNING AND ATBEDTIME 25 g 1 hydrocortisone-pramoxine (PROCTOFOAM-HS) rectal foam [...] could be getting HAs from being on both.She will stop the zoloft. Re-check TFTs as cause of symptoms as well. Take PPI for 6 wks and follow strict anti-reflux precautions and continue to try to lose weight. Recommended to stay off adipex for now. Recommended 6 small meals per day instead of 3 larger ones. Nosnacking in between. More recommendations by her GI although she would like to see another provider. She will let me know who she wants to see after her gastric emptying study is complete. F/u in 1 mo. ANDREW EARL APRN-CNP 02/21/24 1427 documented in this encounterCincinnati Children's Hospital [facility] Center09-19-2024 History of Present illness Narrative* ELIJAH Martinez - 02/03/2024 2:40 PM EDT Reason for Appointment: Patient ID: Sheyla Lea is a 18 y.o. female who presents for No chief complaint on file. Patient presents today via telephone call for a telehealth appointment. Patients Phone #: [phone] (mobile) Current Medications: has a current medication [...] behalf of: ELIJAH Martinez documented in this encounterColumbia Regional HospitalFigmibznld97-97-0353 History of Present illness Narrative* Anita Elmore, [place]-LEGAL ASSISTANT - 02/03/2024 1:20 PM EDT [address] [facility] [address] Patient: Sheyla Lea Date of : 2005 [...] metformin to help with weight loss and PCOS.Her OBGYN is currently weaning her off of her Zoloft for the last 2 weeks and had started Effexor to help with her moods. Patient does have history of GERD which has been becoming worse despite treatment with PPI for last90 days. Pt also struggles with chronic constipation. She has #1 on Stool scale and strains to have BM q 3-5days. She tries Miralax q am without significant [...] past medical history, past social history, past surgicalhistory and problem list. Past Medical History: Diagnosis Date Allergic seasonal Anxiety Depression Hypothyroidism PCOS (polycystic ovarian syndrome) Visual impairment Past Surgical History: Procedure Laterality Date ESOPHAGOGASTRODUODENOSCOPY DIAGNOSTIC N/A 02/04/2024 Performed by Rene Pittman DO at [facility] EUSTACHIAN TUBE DILATION Bilateral 06/28/2017 Performed by Abdullahi Cavazos MD at [facility] MYRINGOTOMY W/ TUBES 2010 PELVIC LAPAROSCOPY 01/28/2024 THYROIDECTOMY 09/03/2023 TONSILLECTOMY ADENOIDECTOMY Bilateral 06/28/2017 Performed by Abdullahi Cavazos MD at [facility] Current Outpatient Medications Medication Sig Dispense [...] MOUTH TWICE A DAY (IN THE MORNING ANDBEFORE BEDTIME) pantoprazole (PROTONIX) 20 mg EC tablet [...] set pt up with EGD with Dr. Pittman and change PPI to protonix. She should [...] treatment and review of outside provider notes. ANITA ELMORE APRN-ANDREW Pacheco 02/08/24 1639 documented in this [facility]09-11-2024 Miscellaneous Notes* Telephone Encounter - Roxana Han CMA - 01/26/2024 9:44 AM EDT Patient was called and encouraged to not gerd medication and to take but as needed and to call and set wellness up. * Telephone Encounter - Miley Sahu - 01/26/2024 9:44 AM EDT Patient scheduled next year for wellness and 03/31/24 for med visit. documented in this encounterCincinnati Children's Hospital [facility] Center09-11-2024 Telephone encounter Note* Telephone Encounter - Roxana Han CMA - 01/26/2024 9:44 AM EDT Patient was called and encouraged to not gerd medication and to take but as needed and to call and set wellness up. [facility]09-11-2024 Telephone encounter Note* Telephone Encounter - Miley Sahu - 01/26/2024 9:44 AM EDT Patient scheduled next year for wellness and 03/31/24 for med visit. [facility]09-10-2024 History of Present illness Narrative* ELIJAH Martinez - 01/25/2024 2:10 PM EDT Reason for Appointment: Patient ID: Sheyla Lea is a 18 y.o. female who presents for Post-op Visit (Pt present today forpost op visit. S/p dx lap 01/14/2024) Patient [...] Past Medical History: Diagnosis Date Hypothyroidism (acquired) ([facility]) HISTORY PAST MEDICAL HISTORY SOCIAL HISTORY Past Medical History: Diagnosis Date Hypothyroidism (acquired) ([facility]) Social History Tobacco Use Smoking status: Never [...] Pt states she does not feel her zoloftis working. Pt is going to wean off zoloft and start taking ellexor. Jpt to follow up in 2 weeks via telehealth for adipex refill, pt will be able to have 90 dya supply. Documented by ELIJAH Martinez on behalf of: Gerardo Meredith DO documented in this encounterColumbia Regional [id number] Miscellaneous Notes* Telephone Encounter - ANDREW Earl - 01/23/2024 9:30 AM EDT I will give her a 90 day supply if that is cheaper but I do not want pt to continuously take this medication for long period. If she is still struggling w GERD when taking this PRN please set her up to see me - wellness if due if fine documented in this encounterC[facility]09-[facility] Telephone encounter Note* Telephone Encounter - ANDREW Earl - 01/23/2024 9:30 AM EDT I will give her a 90 day supply if that is cheaper but I do not want pt to continuously take this medication for long period. If she is still struggling w GERD when taking this PRN please set her up to see me - wellness if due if fine [facility]07-11-2024 Miscellaneous Notes* Telephone Encounter - Realien Aggarwal - 11/25/2023 11:17 AM EDT Please remind pt, she cannot take hydroxyzine if she is * [facility] 11/25/2023 11:17 AM EDT Notified via [employer] documented in this encounterCincinnati [facility]07-11-2024 Telephone encounter Note* Telephone Encounter - [facility] Jasen - 11/25/2023 11:17 AM EDT Please remind pt, she cannot take hydroxyzine if she is [facility]07-11-2024 Telephone encounter Note* Telephone Encounter - Realien Aggarwal - 11/25/2023 11:17 AM EDT Notified via [employer] [facility]07-11-2024 Miscellaneous Notes* Telephone Encounter - ANDREW Earl - 11/25/2023 6:38 AM EDT Please remind pt, she cannot take hydroxyzine if she is documented in this encounterCincinnati [facility]07-11-2024 Telephone encounter Note* Telephone Encounter - ANDREW Earl - 11/25/2023 6:38 AM EDT Please remind pt, she cannot take hydroxyzine if she is [facility]07-09-2024 History of Present illness Narrative* Alphonsomckayla Pylemarileefelipe, - 11/23/2023 4:00 PM EDT Subjective Patient ID: Sheyla Lea is a [...] past medical history, past social history, past surgicalhistory, problem list, and medication reconciliation was completed including current medication andpost discharge medication. Review of Systems Objective Physical [...] daily as needed (heartburn). documented in this encounterCincinnati [facility] Center06-13-2024 History of Present illness Narrative* Anita Elmore, DALLAS-LEGAL ASSISTANT - 10/28/2023 4:20 PM EDT [address] [place] [id number] Patient: Sheyla Lea Date of : 2005 [...] help regulate her menses. She sees her roads and parking lots sweeper operator again in 1 month and also has a transvaginal ultrasound scheduled for lower pelvic pain. She has a history of ovarian cysts. Her roads and parking lots sweeper operator thinks her lack of periods and irregular [...] past medical history, past social history, past surgicalhistory and problem list. Past Medical History: Diagnosis Date Allergic seasonal Anxiety Depression Hypothyroidism PCOS (polycystic ovarian syndrome) Visual impairment Past Surgical History: Procedure Laterality Date EUSTACHIAN TUBE DILATION Bilateral 06/28/2017 Performed by Abdullahi Cavazos MD at [facility] MYRINGOTOMY W/ TUBES 2010 THYROIDECTOMY 09/03/2023 TONSILLECTOMY ADENOIDECTOMY Bilateral 06/28/2017 Performed by Abdullahi Cavazos MD at [facility] Current Outpatient Medications Medication Sig Dispense [...] by mouth in the morning and 1 tablet(50 mg total) before bedtime. omeprazole (PriLOSEC) 40 [...] 71 Temp 37.1 C (98.7 F) (Oral) Resp18 Ht 160 cm (5' 3 ) Wt [...] Her OBGYN is handling her contraception care. Self- breast exams were recommended. She may start Lotrisone cream as above for her athlete's foot. She should keep the foot very dry and protect from son. She was cautioned that steroid cream can thin the skin as well. Recheck thyroid function tests as above. She was encouraged to seek counseling as she already has an established counselor. If counseling isnot helping in the next few weeks she should return to the office and we will consider medication therapy for her anxiety/PTSD symptoms. ANDREW EARL APRN-CNP 11/02/23 1602 documented in this encounterCincinnati [facility]05-20-2024 Telephone encounter Note* Telephone Encounter - Luis Antonio Cavazosjamari - 10/04/2023 1:26 PM EDT Requester: Patient Patients last Endocrinology visit occurred [...] No Patient is completely out of medication. [facility]05-20-2024 Miscellaneous Notes* Telephone Encounter - Lenin Cavazos - 10/04/2023 1:26 PM EDT Requester: Patient Patients last Endocrinology visit occurred [...] completely out of medication. documented in this encounterSamaritan [facility]05-14-2024 History of Present illness Narrative* Lima Toussaint, DALLAS-DHRUV - 09/28/2023 11:20 AM EDT Subjective Patient ID: Sheyla Lea is a [...] past medical history, past social history, past surgicalhistory, problem list, and medication reconciliation was completed including current medication andpost discharge medication. Review of Systems Constitutional: Positive [...] RANJIT Bartholomew 09/28/23 1300 documented in this encounterCincinnati [facility]'s [facility]04-25-2024 NoteHNO ID: [id number] Author: LATASHA BOBO MD Service: ? Author Type: Physician Type: Progress Notes Filed: 10/15/2023 00:28 Note Text: [facility] Note CC: Post op of [...] documented findings and treatment plan. Latasha Bobo [facility]04-25-2024 History of Present illness Narrative* Latasha Bobo MD - 09/09/2023 4:43 PM EDT [facility] Note CC: Post op of [...] of time for anesthesia/vasoconstriction to become effective, aflexible laryngoscope was passed through the left nasal passage. Findings: The nasal cavity and nasopharynx were normal. No masses or lesions were visualized at thebase of tongue, vallecula, epiglottis, aryepiglottic folds, pyriform sinuses, and lateral pharyngeal dumont. True vocal cord movement was intact bilaterally. The patient's airway was widely patent with no evidence of obstruction. Patient tolerated the procedure well, and there were no complications.The procedure was performed by me. I was [...] patient's management with the resident. I agree withthe documented findings and treatment plan. Latasha Bobo MD documented in this encounterSam[facility]04-25-2024 Nurse Note* Georgia Lazcano OCCA - 09/09/2023 4:08 PM EDT Tobacco Use: Never Was smoking cessation packet given? N/A - Patient is a non-smoker or quit >1 year ago. Was a referral initiated?N/A Patient is a non-smoker [facility]04-25-2024 Nurse Note* Georgia Lazcano OCCA - 09/09/2023 4:08 PM EDT Tobacco Use: Never Was smoking cessation packet given? N/A - Patient is a non-smoker or quit >1 year ago. Was a referral initiated?N/A Patient is a non-smoker documented in this encounterSamaritan Hospital04-20-2024 NoteHNO ID: [id number] Author: PEG RICKETTS MD Service: Otolaryngology Author Type: Resident Type: Progress Notes Filed: 09/04/2023 08:34 Note Text: [facility] - HEAD AND NECK SURGERY PROGRESS NOTE PAGE [id number] AFTER 1700 AND ON WEEKENDS Patient Name: Sheyla Lea Age: [age] year old Sex: female Date: September 04, 2023 Admission Date: 09/03/2023 Hospital Day: 0 ASSESSMENT/PLAN: Sheyla Lea is a 18 year old female who has been followed for total thyroidectomy - DC drain - DC home Peg Ricketts MD PGY-2 Otolaryngology/Head and Neck Surgery [phone] Service Pager [phone] - please page after 5pm and on [...] 100% Ins AND Outs: Date 09/03/23699 - 09/04/2365809/04/23 07 - 09/05/23 0659 Shift 3023-3058 5415-8476 4137-6012 24 Hour Total 0820-3562 1574-0620 0905-3385 24 Hour Total INTAKE PO 200 200 PO 200 200 IV 1999 423 1122 3545 OR Crystalloid intake (mL) 1000 1000 Volume (mL) (ceFAZolin iv piggyback 2 g in D5W (iso-osmotic) 100 mL (ANCEF)) 100 100 Volume (mL) (lactated ringers iv infusion) 1000 1000 Volume (mL) (NaCl 0.9% iv infusion) 423 1022 1445 Shift Total 1999 623 1122 3745 OUTPUT Urine 011 059 3522 1650 Void (ml) 571 414 4329 1650 Tubes 17.5 10 27.5 Drain/Tube Output (Drain/Tube 09/03/23 1124 [facility] Midline Anterior Neck) 17.5 10 [...] No active hospital problems. * thyroid [facility]A: [facility]04-[facility]24 NoteHNO ID: [id number] Author: PATRICIA ARAGON APRN.GUNNER MATE Service: ? Author Type: Nurse Community Development Coordinator Type: Anesthesia Procedure Notes Filed: 09/03/2023 07:56 Note Text: ANESTHESIOLOGY PROCEDURE NOTE Airway General Information Procedure Start Time/Medication Administration: 09/03/2023 7:31 AM Procedure End Time: 09/03/2023 7:32 AM Patient location during procedure: OR Timeout Performed Pre-procedure: timeout performed Consent Obtained: Yes Patient identity confirmed: arm band and patient Staffing GUNNER MATE: Patricia Aragon APRN.GUNNER MATE Indications and Patient Condition Indications for airway management: anesthesia and airway protection Preoxygenated: yes anesthesia circuit Method: asleep Cricoid Pressure: No Manual In-Line Stabilization: No Difficult Mask: No Final Airway Details Final airway type: endotracheal airway Final Endotracheal Airway: NIM tube Cuffed: yes Successful intubation technique: video laryngoscopy Devices used: [email or web address] Endotracheal tube insertion site: oral ETT size (mm): 7.0 Measured from: lips Measurement (cm): 22 Placement verified by: capnometry Cormack-Lehane Classification: grade I - full view of glottis Number of attempts at approach: 1 Failed airway: no Unrecognized esophageal intubation: no Airway not difficult SIGNATURE: Patricia Aragon APRN.GUNNER MATE PATIENT NAME: Sheyla Lea DATE: September 03, 2023 TIME: 7:55 AM CSN: [id number] Hospital04-10-2024 Miscellaneous Notes* Addendum Note - John Humphrey PA-C - 08/25/2023 2:01 PM EDTAddended by: JOHN HUMPHREY on: 08/25/2023 02:01 PM Modules accepted: Orders documented in this encounterSamaritan Hospital04-10-2024 History of Present illness Narrative* ANDREW Earl - 08/25/2023 1:00 PM EDT [address] [facility] [id number] Patient: Sheyla Lea Date of : 2005 Encounter Date: 08/25/2023 History of Present Illness: The patient is a 18 y.o. female, an established patient, and is here for Chief Complaint Patient presents with New Patient . HPI Patient is here to establish care from [facility] where she saw Shanna a nurse practitioner. She recently moved to [place] and this is a closer drive for her. 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 In the last several months her PCP started Zoloft for anxiety and depression and patient feels her symptoms are 50-75% improved. During breakthrough episodes of anxiety and to help her sleep she takes 25 mg of hydroxyzine at night which helps with her panic symptoms. She has no adverse side effectsto either these medications. Patient's last menstrual period [...] thyroidectomy surgery scheduled for September 02 with [facility] ENT for nodules, chronic pharyngitis and [...] the last 3 months she has been erjbsp97 mg of Prilosec daily with some Zofran [...] past medical history, past social history, past surgicalhistory and problem list. Past Medical History: Diagnosis Date Allergic seasonal Past Surgical History: Procedure Laterality Date EUSTACHIAN TUBE DILATION Bilateral 06/28/2017 Performed by Abdullahi Cavazos MD at [facility] MYRINGOTOMY W/ TUBES 2010 TONSILLECTOMY ADENOIDECTOMY Bilateral 06/28/2017 Performed by Abdullahi Cavazos MD at [facility] Current Outpatient Medications Medication Sig Dispense [...] Dissolve 1 tablet (4 mg total) on tongueevery 8 (eight) hours as needed for nausea or vomiting. Follow-up: Patient is working on weight loss through exercise and portion control and counting calories. It was also recommended that she could start weight watchers and that we offer medically monitored weightloss here. This would have to be after her thyroidectomy. Goal body mass index of less than 25%. Increase Zoloft to 100 mg. She is tolerating the medicine without side effects and may benefit fromthe higher dose with goal of 75% improvement in her depression/ anxiety symptoms. She is involved in counseling every 2 weeks through telehealth. Continue her PPI until after surgery in 10 days and then start to wean off to every other day for 1week then every 3rd day for a week [...] EARL APRN-CNP 08/25/23 1410 documented in this encounterSelect Medical Cleveland Clinic Rehabilitation Hospital, BeachwoodAeroGrow International [id number] Instructions* Patient Instructions* John Humphrey PA-C - 08/25/2023 7:49 AM EDT PATIENT PREOPERATIVE INSTRUCTIONS No ref. provider found has scheduled you for your procedure at this surgery center: [facility] [place] Scheduling Office: [phone] --[address] [place] [address]. Please read below carefully for your personalized [...] taking for the 08/25/23 encounter (PAT) with [address] [place] [address]. If you start any new medications after [...] Procedures: - YOU MUST HAVE A RESPONSIBLE KIER HAND TAKE YOU HOME. A CHICKEN HANDLER OR HAIR PREPARER CANNOT BE MADE A RESPONSIBLE KIER HAND. - We recommend that a responsible person stays with you overnight to take care of you. - You cannot stay in a hotel alone after outpatient surgery. You will not be permitted to have yoursurgery, if you do not have someone to take care of you. Arrival Time for Surgery: - To obtain your arrival time for surgery, call your physician's office the day before your surgery. - If your surgery is scheduled for Wednesday, call the Wednesday before. Your surgeon s desk lieutenant will tell you what time to call the office. - If you have not reached the departmental desk lieutenant by 5 P.M., call [phone] after 5 P.M. the day before your surgery. Please be aware that emergency situations arise, which may delay or change your surgical time. If this happens, we will notify you as soon as possible and regret any inconvenience. If you already have an Advance Directive, please fax a copy to [phone] or email to for it to be added to your chart. If you do not have an Advance Directive, you can find the appropriate form and more information at [email or web address]. We recommend that youcomplete the Advance Directive form found on the website and bring it with you the day of your surgery. It can be witnessed and scanned into your chart that day. John Humphrey PA-C documented in this encounterSam[facility]04-10-2024 History and physical note * John Humphrey PA-C - 08/25/2023 7:30 AM EDT HISTORY AND PHYSICAL EXAMINATION SERVICE DATE: 08/25/2023 [...] COVID-19 original vaccine, age 12+ yr, monovalent (PFIZER- BIONTECH - PURPLE TOP) 10/21/2020 Imm Admin: COVID-19 original vaccine, age 12+ yr, monovalent (PFIZER- BIONTECH - PURPLE TOP) CHIEF COMPLAINT: Pre-op evaluation HPI: Patient is a 18 year old year old female who is scheduled for above case on 09/03/2023. Patienthas a painful thyroid and antithyroid antibodies are [...] CAD, chest pain, CHF, DVT/PE, hypertension, recent OH, murmur/valvular heart disease and PVD. GI: Positive [...] or any previous visit (from the past 23226 hour(s)). Instructions Given to Patient: Instructions located in the after visit summary. Patient given verbal and written preop instructions and voices comprehension and compliance. SIGNATURE: John Humphrey PA-C PATIENT NAME: Sheyla Lea DATE: August 25, 2023 TIME: 7:58 AM PAGER/CONTACT #: documented in this encounterSamaritan Hospital04-03-2024 NoteHNO ID: [id number] Author: GRETEL STEVENS MD Service: ? Author [...] LH, estradiol - Consider pelvic US by WAREHOUSE ORDER PULLER - Weight loss recommendations: Advised about lifestyle [...] (H) ( Neck Ultrasound: 05/17/2023 Ultrasound Machine: [email or web address] Transducer: Linear 11 MHz Regions examined: Thyroid [...] DATE OF EXAM: Apr 19 2022 8:15AM [facility] 1048 - US THYROID/PARATHYROID / PROCEDURE REASON: multiple diagnoses * * * * Physician Inter (more content not included)...[facility] 08-18-2023 History of Present illness Narrative* Yesi Pizano MD - 08/18/2023 3:00 PM EDT Images from the original note were not [...] today August 18, 2023 for a new consultationregarding thyroid nodule who is she is undergoing [...] LH, estradiol - Consider pelvic US by WAREHOUSE ORDER PULLER - Weight loss recommendations: Advised about lifestyle [...] (H) ( Neck Ultrasound: 05/17/2023 Ultrasound Machine: [email or web address] Transducer: Linear 11 MHz Regions examined: Thyroid Sagittal and transverse views were obtained. Color and power Doppler were applied when indicated. Left Thyroid Lobe: lobe measures 1.88 X1.53 X 3.71 cm Right Thyroid Lobe: lobe measures 1.85 X 1.60 X 3.76 cm Isthmus - 1.58 X 0.43 cm The thyroid bilaterally is fairly homogeneous without honeycomb appearance, there are no concerningnodules based on my ultrasound today. Procedure performed by Latasha Bobo MD * * *Final Report* * * DATE OF EXAM: Apr 19 2022 8:15AM [facility] 1048 - US THYROID/PARATHYROID / PROCEDURE REASON: [...] 2 points Echogenicity: Hypoechoic, 2 points Shape: Yjmxq-ximi-azqy, 0 points Margin: Lobulated or irregular, 2 [...] QUANTITATIVE; Future This note was created using [employer] dictation software. You may find errors that were missed during proofreading. They are purely unintentional and if there are any concerns regarding this dictation, please do not hesitate to contact the dictating provider for clarification. Discussed with Attending Staff, Dr. Cerda Addendum to follow. Yesi Pizano MD Clinical Fellow Endocrinology and Metabolism [place] Attending Note I evaluated the patient and personally participated in the mayer components. I agree with Dr. Ruffin's findings and plan with the following revisions and/or additions: 18 y/o F here for evaluation of thyroid disease. She has a grandmother with thyroid cancer. She metwith ENT and is planned for thyroidectomy. No [...] androgens. Gretel Stevens MD documented in this encounterSamaritan Hospital03-18-2024 Miscellaneous Notes* Telephone Encounter - Latasha Bobo MD - 08/02/2023 4:10 PM EDT Spoke with patient her antithyroid antibodies are [...] that this is not standard treatment for Hlelen's although in some patients with pain related to her thyroiditis it can be helpful. There are risks and it may not be the most straightforward thyroidectomy. She would like to consider it. She will see her lead quality control technician which is a new lead quality control technician in August and then if still interested in pursuing thyroidectomy will reach out to me. In the meantime we can hold a surgical date. Latasha Bobo MD * Telephone Encounter - Henrietta Mccormick - 07/13/2023 3:12 PM EST Pt calling for lab results. Please call documented in this encounterSamaritan Hospital01-04-2024 Evaluation note* Encounter Date Diagnosis Assessment Notes Treatment Notes Treatment Clinical Notes May, Moderate major depression (ICD-1 0 - F32.1) May,hronic GERD (ICD-10 - K21.9) [employer] Other 12-08-2023 NoteHNO ID: [id number] Author: Latasha Bobo MD Service: ? Author [...] mobility normal Neck Ultrasound: 05/17/2023 Ultrasound Machine: [email or web address] Transducer: Linear 11 MHz Regions examined: Thyroid [...] Making Level: 3 - Low Latasha Bobo, [facility]11-17-2023 Evaluation note* Encounter Date Diagnosis Assessment Notes Treatment Notes Treatment Clinical Notes Mar, Moderate major depression (ICD-1 0 - F32.1) will add zoloft-she will continue with conuseing, i did warn of nausea and SI. Mar,MI 40.0-44.9, adult (ICD-10 - Z68.41) Mar,eneralized anxiety disorder (ICD-10 - F41.1)will continue with vistaril and start zoloft. Mar,hronic GERD (ICD-10 - K21.9)lots of nausea at night- i do think that is related to GERD, will start omeprazole and follow up in4 weeks-she voices understanding. Mar,Neck fullness (ICD-10 - R22.1)fullness on right side of neck on my exam, she feels lump on left side of neck. will get US. [employer] Other 09-13-2023 NotePatient Education Materials Follows:Disease Viral [...] home: Managing pain and congestion ? Take jtgz-zmq-jmujrtg and prescription medicines only as told by [...] water are not available, use alcohol-based hand football pad repairer. ? Cover your mouth when you cough. [...] against viruses. This informati (more content not included)...[facility] HospitalIrpkcmsi50-78-4869 Evaluation note* Encounter Date Diagnosis Assessment Notes Treatment Notes Treatment Clinical Notes Jan, BMI 40.0-44.9, adult (ICD-10 - Z 68.41) she reports she continues to gain weight, strong hx of obesity in family. we will try for ozempic. she agrees. we did discuss weight management did not feel she would have the time right now due to work. 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 Living on her own with her boyfriend. Stressed about money. Looking to buy a house. Feels she has a lot going on. She feels she holds emotions in, does not have a close support system. Needs someone to talk to instaed of holding in emotions. she is agreeable to counseling. denies SI. Jan,Mild major depression (ICD-10 - F32.0)see above Jan,Weight gain (ICD-10 - R63.5)see above [employer] Other 08-23-2023 NoteEducation Materials Gastroenterology Constipation, Adult [...] in fat and sugar, such as: ? Icelandic fries. ? Hamburgers. ? Cookies. ? Candy. ? Soda. ? Drink enough fluid to keep your pee (urine) pale yellow. General instructions ? Exercise regularly or as told by your doctor. Try to do 150 minutes of exercise each week. ? Go to the restroom when you feel like you need to poop. Do not hold it in. ? Take qlpf-xxw-wbegdff and prescription medicines only as told by [...] your pee (urine) pale yellow. ? Take yquq-dzf-pslajxf and prescription medicines only as told by your doctor. These include any fiber supplements. This information is not intended to replace advice given to you by your health care provider. Make sure you discuss any questions you have with your health care provider. Document Revised: 03/20/2020 Document Reviewed: 03/20/2020 [email or web address] Patient Education ? 2022 [email or web address] Abdominal Pain, Adult Many things can cause belly (abdominal) pain. Most times, belly pain is not dangerous. Many cases of belly pain can be watched and treated at home. Sometimes, though, belly pain is serious. Your doctor will try to find the cause of your belly pain. Follow these instructions at home: Medicines ? Take udlm-oyv-cnrujkw and prescription medicines only as told by [...] belly pain for any changes. ? Take etry-stm-ruxktpg and prescription medicines only as told by [...] 09/11/2019 Document Reviewed: 09/11/19 (more content not included)...[facility] HospitalBgapaiho86-77-2862 NotePatient Education Materials Follows: Antibiotic Medicine, Adult [...] Follow these instructions at home: ? Take amku-fka-slqfevn and prescription medicines as told by your health care provider. ? Return to your normal activities as told by your health care provider. Ask your health care provider what activities are safe for you. ? Keep all follow-up visits as told by your health care provider. This is important. Contact a health care provider if: ? (more content not included)...[facility] HospitalDvfmhldi85-12-9388 NotePatient Education Materials Follows: Corneal Abrasion A [...] condition may be caused by: ? A shot grinder operator the eye. ? A gritty or irritating [...] in diseases and conditions of the eye (diabetes territory manager). This condition may be diagnosed based on your medical history, symptoms, and an eye exam. Before the eye exam, numbing drops may be put into your eye. You may also have dye put in your eye with a dropper or a small paper strip. The dye makes the abrasion easy to see when your diabetes territory manager examines your eye with a light. Your diabetes territory manager may look at your eye through an [...] you start to feel better. ? Take gwlb-ogm-yvavogy and prescription medicines only as told by your health care provider. ? Ask your health care provider if the medicine prescribed to you: ? Requires you to avoid driving or using heavy machinery. ? Can cause constipation. You may need to take these actions to prevent or treat constipation: ? Drink enough fluid to keep your urine pale yellow. ? Take avdw-xcl-gplxnea or prescription medicines. ? Eat foods that [...] wearing an eye patch. Your ability to joint terminal attack controller distances will beimpaired. ? Follow instructions from [...] You have vision loss (more content not included)...[facility] [id number] NoteEducation Materials Cardiovascular Hypertension, Adult High blood [...] without skin, beans, e (more content not included)...[facility] HospitalSvpoyubb13-07-0225 NotePatient Education Materials Follows: Otitis Media, Adult [...] Follow these instructions at home: ? Take lvke-eob-ypyzwqu and prescription medicines only as told by [...] provider. Document Revised: 08/11/2021 Document Reviewed: 08/11/2021 [email or web address] Patient Education ? 2021 [employer].[facility] [id number] Nurse Note* Carmela Pleitez Ma - 05/28/2022 8:31 AM EST Tobacco Use: Never Was smoking cessation packet given? N/A - Patient is a non-smoker or quit >1 year ago. Was a referral initiated?N/A Patient is a non-smoker documented [facility] encounter[facility] History of Present illness Narrative* Latasha Bobo MD - 05/28/2022 8:24 AM EST [facility] Consult This consult was requested by Sean Aguilar, SANGEETHA* for an opinion regarding thyroid [...] 2 points Echogenicity: Hypoechoic, 2 points Shape: Udqso-epjm-afms, 0 points Margin: Lobulated or irregular, 2 [...] palpable lymphadenopathy Neck Ultrasound: 06/02/2022 Ultrasound Machine: [email or web address] Transducer: Linear 11 MHz Regions examined: Thyroid [...] to set up visit with a new lead quality control technician now that she is nearly an adult [...] Low Latasha Bobo MD documented in this encounterSam[facility] Hospital12-09-2022 Miscellaneous Notes* Telephone Encounter - Sean Aguilar APRN.CNP - 04/24/2022 11:27 AM EST Called mother to discuss follow up. Received voicemail with identification as Sean Venu. I left a voicemail stating that patient should follow up with adult ENT Dr. Latasha Bobo. Advised that if patient's mother has not heard from office to schedule by the middle of next week, she should call to set up the appointment. I left the scheduling line number for her to call if needed: [phone]. After discussion with Dr. Chaparro, the plan of care is for Sheyla to follow up with adult ENT first. She should be scheduled with Dr. Latasha Bobo. Consult to adult ENT placed with instructions to schedule with Dr. Latasha Bobo. Will send message to scheduling. No active mychart to send message to patient. documented in this encounterSamaritan Hospital12-06-2022 Miscellaneous Notes* Telephone Encounter - Sean Aguilar APRN.CNP - 04/21/2022 1:16 PM EST Called and spoke to mother of Sheyla about thyroid ultrasound results. Discussed that the nodules inthyroid have grown, which warrants further work up and evaluation to rule out any malignancy. I discussed with mother that Sheyla should follow up with Dr. Chaparro in the [facility] for further evaluation. Discussed that there [...] to reach out to patient to schedule. Sean Aguilar APRN.CNP documented in this encounterSamaritan Hospital12-01-2022 Miscellaneous Notes* Telephone Encounter - Sean Aguilar APRN.CNP - 04/16/2022 1:40 PM EST [...] and is agreeable to plan of care. Sean Aguilar APRN.CNP documented in this encounterSamaritan Hospital11-30-2022 Instructions* Patient Instructions* Sean Aguilar APRN.CNP - 04/15/2022 2:17 PM EST Please get labs Please schedule for ultrasound Follow up with nutrition for dietary guidance documented in this encounterSamaritan Hospital11-30-2022 History of Present illness Narrative* Sean Aguilar APRN.CNP - 04/15/2022 2:01 PM EST Images from the original note were not included. [facility] Division of Pediatrics CLINIC NOTE Pediatric [...] note: Initial presentation was when she saw wardrobe coordinator Dr Pleitez for pelvic pain who noticed thyromegaly so ordered US and TFTs. US showed small nodule ([id number]) with benign features and gland was non [...] 0.8 - 2.1 ng/dL 1.1 Scanned into [employer] from 06/08/2018: FSH 7, LH 3.3 Testosterone [...] -0.47) based on CDC (Girls, 2-20 Years) Qvlwqiz-aku-lyi data based on Stature recorded on 04/15/2022. Weight: 98 %ile (Z= 2.01) based on CDC (Girls, 2-20 Years) efdmlw-lpg-wiw data using vitals from 04/15/2022. BMI: 90% [...] for 30 minutes. Denies poly symptoms. Encouraged boat canvas maker and installer visit. I spent a total of 40 minutes on the date of the service which included preparing to see the patient, clvh-fy-uhqh patient care, completing clinical documentation, obtaining and/or reviewing separately obtained history, performing a medically appropriate examination, counseling and educating the pat ient/family/caregiver, and ordering medications, tests, or procedures. Follow up in 6 months. Sean Aguilar APRN-JOSE LUIS cc: [place] [address] [facility] [address] [facility] [address] Parent of Sheyla Lea [address] [place] [id number] documented in this encounterSamaritan Hospital10-06-2022 NotePatient Education Materials Follows: Foot Pain [...] clean and dry. General instructions ? Take vhcb-ehp-vftyyvu and prescription medicines only as told by [...] provider. Document Revised: 08/06/2021 Document Reviewed: 08/06/2021 [employer] Patient Education ? 2021 [email or web address] Ankle Pain The ankle joint holds [...] by your health care provider. ? Take wysj-wct-khqqrxb and prescription medicines only as told by your health care provider. ? Keep all follow-up visits as told by your health care provider. This is important. (more content not included)...[facility] [id number] History general Narrative - Reported* Type Description Date Medical History Hx of ear infections Medical Historyingrown toenailSurgical Historytubes in bilateral [id number] Surgical Historytonsillectomy and hjmmsprssmxeq61/2018Surgical Historytubes in bilateral ears06/2017 [facility] [employer] Other Evaluation note* Diagnosis Abnormal thyroid blood [...] encounter [facility] noteNo InformationNortS[facility] [employer] Other Evaluation noteNo assessment information [facility] Work Phone: Evaluation note* Diagnosis Abnormal [...] Primary Unspecified hypothyroidism [facility] Mood disorder ([facility]) Unspecified episodic mood disorder Anxious mood Anxiety state, unspecified Hormone imbalance Irregular periods Weight gain Other symptoms concerning nutrition, metabolism, and development documented in this encounter [facility]* Diagnosis Encounter for weight management documented in this encounter [facility]* Diagnosis Anxiety, generalized (CMS/HCC)- Primary Postoperative visit S/P laparoscopy Other postprocedural status Encounter for repeat prescription of oral contraceptives documented in this encounter [facility]* Diagnosis Weight gain- Primary Other symptoms concerning nutrition, metabolism, and development documented in this encounter [facility]* Diagnosis Flu-like symptoms- Primary Acute non-recurrent frontal sinusitis Yeast vaginitis documented [facility] this encounter [facility]* Diagnosis Postoperative hypothyroidism- Primary Postsurgical hypothyroidism [facility]* Diagnosis Wellness examination- Primary Tinea pedis of right foot Postoperative hypothyroidism Postsurgical hypothyroidism Generalized anxiety disorder High risk heterosexual behavior documented in this encounter [facility]* Diagnosis Tinea pedis of both feet- Primary documented in this encounter [facility]* Diagnosis Encounter for medical examination to establish care- Primary Class 2 obesity due to excess calories without serious comorbidity with body mass index (BMI) of 38.0 to 38.9 in adult Generalized anxiety disorder Moderate major depression ([facility]) Major depressive disorder, single episode, moderate Gastroesophageal reflux disease, unspecified whether esophagitis present Cystic acne Other acne Thyroid nodule Nontoxic uninodular goiter documented in this encounter [facility]* Diagnosis Postoperative hypothyroidism- Primary Postsurgical hypothyroidism documented in this encounter [facility]* Diagnosis Gastroesophageal reflux disease, unspecified whether esophagitis present- Primary Postoperative hypothyroidism Postsurgical hypothyroidism Acute hemorrhoid Delayed gastric emptying Dyspepsia and other specified disorders of function of stomach Influenza vaccination administered at current visit documented in this encounter [facility]* Diagnosis Gastroesophageal reflux disease, unspecified whether esophagitis present- Primary Esophageal dysphagia Dysphagia, pharyngoesophageal phase Allergic contact dermatitis, unspecified trigger Chronic idiopathic constipation Unspecified constipation documented in this encounter [facility]* Diagnosis Esophageal dysphagia- Primary Dysphagia, pharyngoesophageal phase Gastroesophageal reflux disease without esophagitis Esophageal reflux documented in this encounter [facility]* Diagnosis Postoperative hypothyroidism- Primary Postsurgical hypothyroidism documented in this encounter [facility]* Diagnosis Postoperative hypothyroidism- Primary Postsurgical hypothyroidism Acute nonintractable headache, unspecified headache type Gastroesophageal reflux disease, unspecified whether esophagitis present Immunization due documented in this [facility]* Diagnosis Nausea- Primary Nausea alone Cramping affecting , antepartum ([facility]) Missed menses documented in this encounter [facility]* Diagnosis Missed menses , unspecified gestational age ([facility]) [facility]counter for supervision of normal first in first trimester ([facility]) documented in [facility] encounter [facility]* Diagnosis First trimester ([facility]) state, incidental 9 weeks gestation of ([facility]) Encounter to discuss test results Other specified counseling headache, antepartum ([facility]) Nausea Nausea alone documented in this encounter [facility]* Diagnosis Thyroid disease affecting - Primary Postoperative hypothyroidism Postsurgical hypothyroidism documented in this encounter [facility]* Diagnosis Thyroid disease affecting - Primary documented in this encounter [facility]* Diagnosis 11 weeks gestation of ([facility]) First trimester ([facility]) state, incidental Thyroid disease Unspecified disorder of thyroid H/O thyroidectomy Exposure to STD Vaginal discharge Leukorrhea, not specified as infective Constipation, unspecified constipation type documented in this encounter [facility] note* Diagnosis 15 weeks gestation of ([facility]) Second trimester ([facility]) state, incidental Screening, , for anatomic survey ([facility]) Encounter for anatomic survey documented in this encounter [facility]* Diagnosis Second trimester ([facility]) state, incidental 19 weeks gestation of ([facility]) Thyroid disease Unspecified disorder of thyroid documented in this encounter [facility]* Diagnosis Second trimester ([facility]) state, incidental 23 weeks gestation of ([facility]) Diabetes mellitus screening Screening for diabetes mellitus documented in this encounter [facility] HealthcareInstructionsNot on filedocumented in this encounterProMediri Health SystemInstructionsNot on filedocumented in this encounterProMedica Health SystemInstructionsNot on filedocumented in this encounterProMediAeroGrow International System InstructionsNot on filedocumented in this [facility]AeroGrow International System InstructionsNot on filedocumented in this encounterSelect Medical [facility], BeachwoodAeroGrow International System InstructionsNot on filedocumented in this encounterSelect Medical [facility], BeachwoodAeroG[facility] International System Instructions* Attachments The following attachments cannot be sent through Care Everywhere. * Acid Reflux and GERD in Adults Discharge Instructions (Bhutanese) documented in this encounterProClinton Memorial HospitalKingfish Labs Health SystemInstructionsNot on file documented in this encounterProClinton Memorial HospitalKingfish Labs Health SystemInstructionsNot on file documented in this encounterProClinton Memorial HospitalKingfish Labs Health SystemInstructionsNot on file documented in this encounterProClinton Memorial HospitalKingfish Labs Health SystemInstructionsNot on file documented in this encounterProClinton Memorial HospitalAeroGrow International SystemInstructions* Attachments The following attachments cannot be sent through Care Everywhere. * Acid Reflux and GERD in Adults Discharge Instructions (Bhutanese) documented in this encounterProClinton Memorial HospitalKingfish Labs Health SystemInstructionsNot on file documented in this encounterProClinton Memorial HospitalKingfish Labs Health SystemInstructionsNot on file documented in this encounterProClinton Memorial HospitalAeroGrow International SystemInstructionsNot on file documented in this encounterProClinton Memorial HospitalAeroGrow International SystemInstructionsNot on file documented in this encounterProClinton Memorial HospitalKingfish Labs Health SystemInstructionsNot on file documented in this encounterProSpotster SystemInstructionsNot on file documented in this encounterProClinton Memorial HospitalAeroGrow International SystemInstructionsNot on file documented in this encounterSelect Medical [facility], BeachwoodAeroGrow International SystemReason for referral (narrative)* Diagnostic Procedure Only (Routine) - AuthorizedSpecialtyDiagnoses / ProceduresReferred By ContactReferred To ContactUS IMAGING Diagnoses Abnormal thyroid blood test History of thyroid nodule Procedures US THYROID/PARATHYROID US SOFT TISSUE HEAD & NECK REAL TIME IMGE Sean Marquez APRN.CNP [address] [place] [address] [facility] Referral IDStatusReasonStart DateExpiration DateVisits RequestedVisits [id number] Auto-Generated Referral * Consult, Test, Treat (Routine) - AuthorizedSpecialtyDiagnoses / Procedures Referred By ContactReferred To ContactPediatric Nutrition Diagnoses Obesity, pediatric, BMI greater than or equal 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 Procedures CONSULT TO PED NUTRITION OFFICE/OUTPATIENT [facility] 60-74 MINUTES Sean Aguilar APRN.CNP [address] [id number] Referral IDStatusReasonStart DateExpiration DateVisits RequestedVisits [id number] PCP Requested Referral [facility] for referral (narrative)* Reason counseling - john if able, if not [facility] anxiety/depression/stress Diagnosis 1 Mild major depressio n (F32.0) Diagnosis 2 Generalized anxiety disorder (F41.1) Referral Organization [facility] [place] Referring Provider First Name Aime Referring Provider Last Name Ethan Referring Provider Specialty [facility] Referred Organization Unknown Facility Referred Provider Specialty Other Medica l Care Referral Priority Routine [place] [employer] Other Reason for referral (narrative)* Diagnostic Procedure Only (Routine) - ClosedSpecialtyDiagnoses / ProceduresReferred By Contact Referred To ContactUS IMAGING Diagnoses Abnormal thyroid blood test History of thyroid nodule Procedures US THYROID/PARATHYROID US SOFT TISSUE HEAD & NECK REAL TIME IMGE DOC Sean Aguilar APRN.CNP [address] [place] [address] [facility] [place] [address] Referral IDStatusReasonStart DateExpiration DateVisits RequestedVisits [id number] Auto-Generated Referral [facility] for referral (narrative)* Outpatient Procedure (Routine) - Pending ReviewSpecialtyDiagnoses / ProceduresReferred By ContactReferred To ContactFAYETTE COUNTY [facility] Diagnoses Thyroiditis Procedures ECG COMPLETE ECG ROUTINE ECG W/LEAST 12 LDS W/I&R Latasha Bobo MD [address] [place] [address] [facility] [place] [address] [place] [address] Referral IDStatusReasonStart DateExpiration DateVisits RequestedVisits [id number] Review Auto-Generated Referral / [facility] HospitalReason for referral (narrative)* Consultation (Routine) - Pending ReviewSpecialtyDiagnoses / ProceduresReferred By ContactReferred To ContactGastroenterology Diagnoses Esophageal dysphagia Gastroesophageal reflux disease without esophagitis Anita Elmore APRN-LEGAL ASSISTANT [address] [place] [address] Meliton Dow MD [address] [address] Referral IDStatusReasonStart DateExpiration DateVisits RequestedVisits [id number] Review Specialty Services Required / [facility] CenterResaint [facility] Narrative* Diagnostic Procedure Only (Routine) - ClosedSpecialtyDiagnoses / ProceduresReferred By ContactReferred To ContactUS IMAGING Diagnoses Abnormal thyroid blood test History of thyroid nodule Procedures US THYROID/PARATHYROID US SOFT TISSUE HEAD & NECK REAL TIME IMGE DOCM Sean Aguilar APRN.LEGAL ASSISTANT [address] [place] [address] [facility] Referral IDStatusReasonStart DateExpiration DateVisits RequestedVisits [id number] Auto-Generated Referral [facility] Summary Purpose Family History No Family History Records FoundNo Family History Records FoundNo Family History Records FoundNo Family History Records FoundNo Family History Records FoundNo Family History Records FoundNo Family History Records FoundNo Family History Records Found Advance Directives Advance Directive Response Recorded Date/ Time Advance Directives No December 08 12:51pm Reason for Referral SpecialtyDiagnoses / ProceduresReferred By ContactReferred To ContactEnt - Otolaryngology Diagnoses Abnormal thyroid blood test History of thyroid nodule Procedures CONSULT TO ENT OFFICE/OUTPATIENT [facility] HIGH MDM 60-74 MINUTES Sean Aguilar APRN.LEGAL ASSISTANT [address] [place] [address] Referral IDStatusReasonStart DateExpiration DateVisits RequestedVisits [id number] PCP Requested Referral Chief Complaint and Reason for Visit Chief Complaint flu vaccine Additional Source Comments Source Comments (unrecognize d section and content) In the event this informatio n is protected by the Federal Confidentiality of Alcohol and Drug Abuse Patient Records regulations: The Federal rules restrict any use of the information to criminally investigate or prosecute any alcohol or drug abuse patient.[facility] HospitalIn the event this information is protected by the Federal Confidentiality of Alcohol and Drug Abuse Patient Records regulations: The Federal rules restrict any use of the information to criminally investigate or prosecute any alcohol or drug abuse patient.[facility] HospitalIn the event this information is protected by the Federal Confidentiality of Alcohol and Drug Abuse Patient Records regulations: The Federal rules restrict any use of the information to criminally investigate or prosecute any alcohol or drug abuse patient.[facility] HospitalIn the event this information is protected by the Federal Confidentiality of Alcohol and Drug Abuse Patient Records regulations: The Federal rules restrict any use of the information to criminally investigate or prosecute any alcohol or drug abuse patient.[facility] HospitalIn the event this information is protected by the Federal Confidentiality of Alcohol and Drug Abuse Patient Records regulations: The Federal rules restrict any use of the information to criminally investigate or prosecute any alcohol or drug abuse patient.[facility] HospitalIn the event this information is protected by the Federal Confidentiality of Alcohol and Drug Abuse Patient Records regulations: The Federal rules restrict any use of the information to criminally investigate or prosecute any alcohol or drug abuse patient.[facility] HospitalIn the event this information is protected by the Federal Confidentiality of Alcohol and Drug Abuse Patient Records regulations: The Federal rules restrict any use of the information to criminally investigate or prosecute any alcohol or drug abuse patient.[facility] HospitalIn the event this information is protected by the Federal Confidentiality of Alcohol and Drug Abuse Patient Records regulations: The Federal rules restrict any use of the information to criminally investigate or prosecute any alcohol or drug abuse patient.[facility] HospitalIn the event this information is protected by the Federal Confidentiality of Alcohol and Drug Abuse Patient Records regulations: The Federal rules restrict any use of the information to criminally investigate or prosecute any alcohol or drug abuse patient.[facility] HospitalIn the event this information is protected by the Federal Confidentiality of Alcohol and Drug Abuse Patient Records regulations: The Federal rules restrict any use of the information to criminally investigate or prosecute any alcohol or drug abuse patient.[facility] HospitalIn the event this information is protected by the Federal Confidentiality of Alcohol and Drug Abuse Patient Records regulations: The Federal rules restrict any use of the information to criminally investigate or prosecute any alcohol or drug abuse patient.[facility] HospitalIn the event this information is protected by the Federal Confidentiality of Alcohol and Drug Abuse Patient Records regulations: The Federal rules restrict any use of the information to criminally investigate or prosecute any alcohol or drug abuse patient.[facility] HospitalIn the event this information is protected by the Federal Confidentiality of Alcohol and Drug Abuse Patient Records regulations: The Federal rules restrict any use of the information to criminally investigate or prosecute any alcohol or drug abuse patient.[facility] Reason for Visit (unrecogniz ed section and content) ReasonCommentsThyroid ProblemReasonCommentsResultsReasonCommentsPatient Update ReasonCommentsNew PatientNodule in thyroidSpecialtyDiagnoses / Procedures Referred By ContactReferred To [facility] Diagnoses Abnormal thyroid blood test History of thyroid nodule Procedures CONSULT TO ENT OFFICE/OUTPATIENT NEW HIGH MDM 60-74 MINUTES Sean Aguilar, ENGAGEMENT LEAD.LEGAL ASSISTANT [address] [place] [phone] [facility] [address] [place] [address] Referral IDStatusReasonStart DateExpiration DateVisits RequestedVisits [id number] PCP Requested Referral [id number]hUZ that appt was rescheduledReason CommentsResultsReasonCommentsPre-Op VisitReasonCommentsThyroid ProblemReason Onset DateCommentsRefill Wercgji09/20/2024ReasonCommentsFollow UpPost opReason CommentsMedication VisitReasonCommentsencounter for weight lossReasonComments Post-op VisitPt present today for post op visit. S/p dx lap 4Reason CommentsSore ThroatNasal CongestionGeneralized Body AchesFeverCoughReason CommentsAnnual ExamReasonCommentsathletes foot spread to hands. skin cracking ReasonOnset DateCommentsMed Ipoocj184ReasonOnset DateCommentsMed Refill 4ReasonCommentsNew PatientReasonCommentsMed RefillReasonCommentspost op ReasonCommentsMed Change RequestReasonCommentsswallowing issuesReasonComments discussion medicationsReasonCommentsER Follow-upCramping in Early ReasonCommentsAmenorrheaReasonCommentsRoutine VisitResultsReason CommentsHx ThyroidectomyReasonCommentsRoutine Visit Care Teams (unrecognized sec tion and content) Team MemberRelationshipSpecialtyStart DateEnd Date Jas Salgado [address] [place] [phone] PCP - GeneralFamily Dzabbhxy84/5/13Team MemberRelationshipSpecialtyStart DateEnd Date Jas Salgado [address] [place] [phone] PCP - GeneralBen[facility] Cbyxghip88/5/13Team MemberRelationshipSpecialtyStart DateEnd Date Jas Salgado [address] [place] [address] PCP - GeneralFamily Hsbahvvd18/5/13Team MemberRelationshipSpecialtyStart DateEnd Date Jas Salgado [address] [place] [address] PCP - GeneralFamily Pozrosbe28/5/13Team MemberRelationshipSpecialtyStart DateEnd Date Jas Salgado [address] [place] [address] PCP - GeneralFamily Xqinjufq34/5/13Team MemberRelationshipSpecialtyStart DateEnd Date Jas Salgado [address] [place] [address] PCP - Generalmily Fyhpclmo39/5/13 Team Status: Active Member Role Status Dates Kevin Stokes , DO Primary Care Provider Active Team Status: Inactive Member Role Status Dates Kevin Stokes , DO Primary Care Provider Active Braxton Toussaint , DO CHCAttending ProviderActiveTeam MemberRelationshipSpecialty Start DateEnd Date Jas Salgado [address] [place] [address] PCP - GeneralFamily Nykbdiez83/5/13Team MemberRelationshipSpecialtyStart DateEnd Date Aime Goff DO [address] [place] [address] PCP - GeneralFamily Medicine07/09/23Team MemberRelationshipSpecialtyStart DateEnd Date Anita Elmore, SUMA [address] [place] [phone] PCP - GeneralFamily Medicine08/17/23Team MemberRelationshipSpecialtyStart DateEnd Date Anita Elmore, SUMA [address] [place] [address] PCP - GeneralFamily Medicine08/17/23Team MemberRelationshipSpecialtyStart DateEnd Date Anita Elmore, SUMA [address] [place] [address] PCP - GeneralFamily Medicine08/17/23Team MemberRelationshipSpecialtyStart DateEnd Date Anita Elmore NP [address] [place] [address] PCP - GeneralFamily Medicine08/17/23Team MemberRelationshipSpecialtyStart DateEnd Date Anita Elmore, UPHOL[employer]ERY [employer] SORTER [address] [place] [address] PCP - GeneralFamily Medicine08/17/23Team MemberRelationshipSpecialtyStart DateEnd Date Regino Santoro MD [address] [place] [phone] PCP - GeneralFamily Mdpyietb89/22/24Team MemberRelationshipSpecialtyStart Date End Date Anita Elmore ENGAGEMENT LEAD-LEGAL ASSISTANT [address] [place] [address] PCP - GeneralInternal Medicine08/25/23Team MemberRelationshipSpecialtyStart Date End Date Anita Elmore ENGAGEMENT LEAD-LEGAL ASSISTANT [address] [place] [address] PCP - GeneralInternal Medicine08/25/23Team MemberRelationshipSpecialtyStart Date End Date CatarinaAnita [facility] [address] [place] [address] PCP - GeneralInternal Medicine08/25/23Te MemberRelationshipSpecialtyStart Date End Date Anita Elmore [facility] [address] [place] [address] PCP - GeneralAri[facility] Hospitalnal Medicine08/25/23Te MemberRelationshipSpecialtyStart Date End Date Anita Elmore [facility] [address] [place] [address] PCP - GeneralArizona [facility]ine [facility] Joint Hospitalnal Medicine08/25/23Te MemberRelationshipSpecialtyStart Date End Date Anita Elmore [facility] [address] [place] [address] PCP - GeneralInternal Medicine08/25/23Te MemberRelationshipSpecialtyStart Date End Date Anita Elmore [facility] [address] [place] [address] PCP - GeneralInternal Medicine08/25/23Te MemberRelationshipSpecialtyStart Date End Date Anita Elmore [facility] [address] [place] [address] PCP - GeneralInternal Medicine08/25/23Team MemberRelationshipSpecialtyStart Date End Date Anita Elmore, ENGAGEMENT LEAD-[facility] [address] [place] [address] PCP - GeneralArizona Spine And Joint Hospitalnal Medicine08/25/23 MemberRelationshipSpecialtyStart Date End Date Anita Elmore ENGAGEMENT LEAD-[facility] [address] [place] [address] PCP - GeneralArizona Spine And Joint Hospitalnal Medicine08/25/23Te MemberRelationshipSpecialtyStart Date End Date Anita Elmore [facility]AGEMENT [facility] [address] [place] [address] PCP - [facility]08/25/23Te MemberRelationshipSpecialtyStart Date End Date Anita Elmore, ENGAGEMENT LEAD-[facility] [address] [place] [address] PCP - [facility]08/25/23Te MemberRelationshipSpecialtyStart Date End Date Anita Elmore ENGAGEMENT LEAD-[facility] [address] [place] [address] PCP - GeneralAri[facility] Joint Hospitalnal Medicine08/25/23Te MemberRelationshipSpecialtyStart Date End Date Anita Elmore, ENGAGEMENT LEAD-LEGAL ASSISTANT [address] [place] [address] PCP - GeneralAri[facility] Hospitalnal Medicine08/25/23Te MemberRelationshipSpecialtyStart Date End Date Anita Elmore ENGAGEMENT LEAD-LEGAL ASSISTANT [address] [place] [address] PCP - GeneralInternal Medicine08/25/23Team MemberRelationshipSpecialtyStart Date End Date Catarina Anita Fisher, ENGAGEMENT LEAD-[facility] [address] [place] [address] PCP - GeneralInternal Medicine08/25/23Team MemberRelationshipSpecialtyStart Date End Date Anita Elmore, ENGAGEMENT LEAD-LEGAL ASSISTANT [address] [place] [address] PCP - GeneralInternal Medicine08/25/23Team MemberRelationshipSpecialtyStart Date End Date Regino Santoro MD PCP - GeneralFamily Qiziffaz80/22/24Team MemberRelationshipSpecialtyStart Date End Date Regino Santoro MD [address] [facility] [place] [address] PCP - [facility]04/07/24Team MemberRelationshipSpecialtyStart Date End Date Regino Santoro MD [address] [facility] [place] [address] [facility] - [facility]04/07/24Team MemberRelationshipSpecialtyStart Date End Date Regino Santoro MD [address] [facility] [place] [address] PCP - Generalmi Ufcaedgp04/22/24Team MemberRelationshipSpecialtyStart Date End Date Regino Santoro MD [address] [facility] [place] [address] PCP - GeneralFamily Tgwyenpw09/22/24Team MemberRelationshipSpecialtyStart Date End Date Regino Santoro MD [address] [facility] [place] [address] PCP - GeneralFamily Klxxieav57/22/24Team MemberRelationshipSpecialtyStart Date End Date Regino Santoro MD [address] [place] [facility] [place] [address] PCP - GeneralFamily Medicine10/12/24Team MemberRelationshipSpecialtyStart DateEnd Date Regino Santoro MD [address] [facility] [place] [address] PCP - GeneralFamily Medicine10/12/24Team MemberRelationshipSpecialtyStart DateEnd Date Regino Santoro MD [address] [facility] [place] [address] PCP - GeneralFamily Medicine10/12/24Team MemberRelationshipSpecialtyStart DateEnd Date Regino Santoro MD [address] [facility] [place] [address] PCP - GeneralFamily Qxcgovkm58/22/24Team MemberRelationshipSpecialtyStart Date End Date Regino Santoro MD [address] [facility] [place] [address] PCP - GeneralFamily Liafwmym01/22/24Team MemberRelationshipSpecialtyStart Date End Date Regino Santoro MD [address] [facility] [place] [address] PCP - [facility]04/07/24Te MemberRelationshipSpecialtyStart Date End Date Regino Santoro MD [address] [place] [address] PCP - [facility]04/07/24Te MemberRelationshipSpecialtyStart Date End Date Regino Santoro MD [address] [facility] [place] [address] PCP - [facility]04/07/24 INFORMATION SOURCE (unrecogn ized section and content) DATE CREATED AUTHOR 04/19/2022 [facility] DATE CREATED AUTHOR AUTHOR'S ORGANIZ ATION 02/07/2023 [facility] DATE CREATED AUTHOR AUTHOR'S ORGANIZ ATION 10/15/2023 [facility] DATE CREATED AUTHOR AUTHOR'S ORGANIZ ATION 04/02/2024 [facility] DATE CREATED AUTHOR AUTHOR'S ORGANIZ ATION 12/21/2024 [facility] DATE CREATED AUTHOR AUTHOR'S ORGANIZ ATION 12/31/2024 [facility] DATE CREATED AUTHOR AUTHOR'S ORGANIZ ATION 03/15/2025 [facility] DATE CREATED AUTHOR AUTHOR'S ORGANIZ ATION 03/27/[address] [facility] EPIC Goals (unrecognized section and content) [...] BE BASED ON THE PRIMARY CLINICAL RECORDS. [facility]. provides no warranty or guarantee of the accuracy or completeness of information in this document.
--- OUTSIDE RECORDS SUMMARY | 2025-04-21 09:37 | XMS_ITS | Clinical Summary ---
Author Organization Address [address] [place] [address] Care Team Providers Care Cork Grinder Name Role Phone Anita Sherwood NP Primary Care Provider Allergies No known active allergies Medications MedicationSigDispense QuantityRefillsLast FilledStart DateEnd DateStatus omeprazole (PRILOSEC) 40 mg capsule Take 40 mg by mouth once daily.Active ondansetron (ZOFRAN) 4 mg tablet Take 4 mg by mouth every 8 hours as needed for nausea/vomiting.Active hydrOXYzine pamoate (VISTARIL) 25 mg capsule Take 25 mg by mouth once daily.Active sertraline (ZOLOFT) 50 mg tablet Take 50 mg by mouth once daily.Active levothyroxine (SYNTHROID) 150 mcg tablet Take 1 tablet by mouth daily at 6 am. 30 tablet 10/04/2023ctive Active Problems ProblemNoted DateDiagnosed DateHypothyroidism (acquired)10/15/2023GERD (gastroesophageal reflux disease)08/25/2023 Assessment & Plan (08/25/2023 7:58 AM EDT): Currently controlled with dietary and lifestyle modifications. Abnormal thyroid blood test04/15/2022History of thyroid pcgyfb3704/15/2022besity, pediatric, BMI greater than or equal 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1104/15/2022 Assessment & Plan (08/25/2023 7:58 AM EDT): Body mass index is 38.55 kg/m??. Thyroid qdekwg9606/23/2018Family history of thyroid xmwpyhw5506/23/2018S/P bmmiphoorccrr17/26/2018Dysfunction of both eustachian tubes05/13/2017History of otitis media05/13/2017Tonsillar /28/2017 Family History Medical HistoryRelationCommentsHypertensionFatherObesityFatherALSMaternal GrandfatherHypertensionMaternal GrandfatherObesityMaternal Grandmotherwt was >300lbs prior to bariatric surgeryThyroid CancerMaternal GrandmotherObesity MotherThyroidMotherhyperthyroidPaternal GrandmotherAnesthesia ProblemsNo Family HistoryRelationStatusCommentsFatherMaternal GrandfatherMaternal Grandmother MotherPaternal Grandmother Social History Tobacco UseTypesPacks/DayYears UsedDateSmoking Tobacco: NeverPassive Smoke Exposure: YesSmokeless Tobacco: Never Tobacco Cessation:Counseling Given: Not Answered Comments:mom & dad both smoke in house Alcohol UseStandard Drinks/WeekCommentsNo0 (1 standard drink = 0.6 oz pure alcohol)Area Deprivation IndexAnswerDate RecordedNational Score (1-100), lower number is lower pisy423905/12/2024State Score (1-10), lower number is lower risk9 05/12/2024ata from: https://www.neighborhoodatlas.medicine.[facility].edu/. Last address used for gbskyahjoue[address]05/12/2024CommentsNoSex and Gender InformationValueDate RecordedSex Assigned at BirthNot on fileLegal Sex Daicpb2303/16/2013 3:42 PM EDTGender IdentityNot on fileSexual OrientationNot on file Last Filed Vital Signs Vital SignReadingTime TakenCommentsBlood Fhntqjkm284/6704 5:50 AM EDT Sarmw9735 5:50 AM TTMJlxqrcurlgs47.8 ??C (98.3 ??F)09/04/2023 5:50 AM EDTRespiratory Yhxl7164 5:50 AM EDTOxygen Viauayrknw324%09/04/2023 5:50 AM EDTInhaled Oxygen Concentration--Tzuaaf79.7 kg (217 lb 9.5 oz)08/25/2023 7:09 AM YLCDvuqed163 cm (5' 3 )08/25/2023 7:09 AM EDTBody Mass Index38.55008/25/2023 7:09 AM EDT Plan of Treatment Health MaintenanceDue DateLast DoneCommentsPeds To Adult Transition Initial Cvbmbtcabw80/09/2017Peds To Adult Transition Annual Gfbstippru95/09/2019 Meningococcal B Vaccine (1 of 2 - Standard)2020nnual PCP Team Chronic Disease Visit3Anxiety Ttocddhlc00/09/2023hlamydia Screening (18-) 3Depression Gllhqjabx63/09/2023C (Gonorrhea) Screening (18-) 2022HIV Guaynyida20/09/2023Hepatitis C Noakdfxpd30/09/2023ovid-19 Vaccine ( - season)/, 10/21/2020Influenza Vaccine (#1) 2023, 03/14/2020, 06/23/2005DTaP,Tdap,Td Vaccine (7 - Td or Tdap)6011/25/2015, 09/09/2009, 06/20/2007, Additional history exists Hepatitis B XpxpjeuRwoubzxrt70/07/2006, 2004, 2004HPV Vaccine Oijnhpjxn21/12/2022, 11/25/2015 Insurance Care Teams Team MemberRelationshipSpecialtyStart DateEnd Date Anita Sherwood NP [address] [place] [phone] [facility]CP - [facility]08/17/23
--- OUTSIDE RECORDS SUMMARY | 2025-04-21 09:37 | XMS_ITS | Clinical Summary ---
Author Organization [facility] Address [address] [place] [address] Care Team Providers Care Supervisor Stone Name Role Phone Hector Dai MD Primary Care Provider [phone] Allergies No known active allergies Medications MedicationSigDispense QuantityRefillsLast FilledStart DateEnd DateStatus pantoprazole (ProtoNix) 40 MG EC tablet Take 40 mg by mouth in the morning. Take before meals. Do not crush, chew, or split..Active buPROPion SR (Wellbutrin SR) 150 MG 12 hr tablet Indications:Mood disorder,Anxious moodTake 1 tablet (150 mg) by mouth Daily Take 1 tablet daily 180 tablet ctive busPIRone (Buspar) 5 MG tablet Take by mouth in the morning and before bedtime. Unsure of dose .Active magnesium oxide (Mag-Ox) 400 MG tablet Indications: headache, antepartum ([facility])Take 1 tablet (400 mg) by mouth Daily 30 tablet 608/676934/ctive calcium carbonate (Tums) 500 MG chewable tablet Indications:Heartburn during in second trimester ([facility])Chew 1 tablet (500 mg) Daily 30 tablet /ctive metoclopramide (Reglan) 10 MG tablet Indications:Heartburn during in second trimester ([facility])Take 1 tablet (10 mg) by mouth in the morning and 1 tablet (10 mg) at noon and 1 tablet (10 mg) in the evening. Take before meals. Take 1 tablet by mouth 30 minutes prior to meals 3 times daily as needed for nausea. 90 tablet 5Active levothyroxine (Synthroid, Levoxyl) 100 MCG tablet Indications:Thyroid diseaseTake 1 tablet (100 mcg) by mouth in the morning. Take before meals. 30 tablet 5Active levothyroxine (Synthroid, Levoxyl) 175 MCG tablet Indications:Postoperative hypothyroidismTake 1 tablet (175 mcg) by mouth in the morning. Take before meals. 90 tablet /6Active liothyronine (Cytomel) 5 MCG tablet Indications:Postoperative hypothyroidismTake 1 tablet (5 mcg) by mouth Daily 90 tablet 5Active levothyroxine (Synthroid, Levoxyl) 175 MCG tablet Indications:Postoperative hypothyroidismTake 1 tablet (175 mcg) by mouth in the morning. Take before meals. 90 tablet /07/2024Discontinued(Reorder) liothyronine (Cytomel) 5 MCG tablet Indications:Postoperative hypothyroidismTAKE 1 TABLET BY MOUTH DAILY. 90 tablet Discontinued(Reorder) Encounters DateTypeDepartmentCare AeicZwlfqkcoewu07/03/2025Refill [facility] [address] [place] [address] Loretta Winkler MD Postoperative hrfcuecwvolqhu08/10/2025 2:00 PM ESTRoutine [facility] [address] [place] [address] Gerardo Merdeith, DO Second trimester ([facility]); 23 weeks gestation of ([facility]); Diabetes mellitus vkwazkuke54/10/2025amboo flowsheet [facility] [address] [place] [place] [address] Gerardo Meredith, 03/25/20259659Vuvmig06/29/2025bstract [facility] [address] [place] [address] Gerardo Meredith, DO 03/01/2025bstract [facility] [address] [facility] [place] [address] Gerardo Meredith, DO 03/01/2025Telephone [facility] [address] [place] [phone] Gerardo Meredith, DO 02/28/2025 2:00 PM EDTRoutine [facility] [address] [place] [address] Gerardo Meredith, DO Second trimester ([facility]); 19 weeks gestation of ([facility]); Thyroid iwwgmjp4802/28/2025amboo flowsheet [facility] [address] [place] [address] Gerardo Meredith, DO 02/27/20257423Hnqkun10/17/2025 4:00 PM EDTRoutine [facility] [address] [place] [address] Nichelle Sanchez PA 15 weeks gestation of ([facility]); Second trimester ([facility]); Screening, , for anatomic survey ([facility])01/31/2025amboo flowsheet [facility] [address] [place] [address] Nichelle Sanchez PA 01/29/20257924Ulonep43/11/2025Telephone [facility] [address] [place] [address] Tabitha Rice LPN from Last 3 Months Family History Medical HistoryRelationNameCommentsSeizure disorderBrother 1SeizuresBrother 7 Gonzalo WheelerSeizuresBrother 8Dylan WheelerSeizuresBrother 9Dylan Whiting SeizuresBrother 10Dylan WheelerBreast cancerMaternal Grandmotherkelley whiting CancerMaternal Grandmotherkelley wheelerThyroid diseaseMaternal Grandmother indra wheelerThyroid diseaseMotherangela wheelerBreast cancerPaternal GrandmotherSandi HofackerRelationNameStatusCommentsBrother 1AliveBrother 2Alive Brother 3AliveBrother 4AliveBrother 5AliveBrother 6AliveBrother 7Dylan Whiting AliveBrother 8Dylan WheelerAliveBrother 9Dylan WheelerAliveBrother 10Dylan WheelerAliveFatherAliveMaternal Grandmotherindra wheelerMotherangela whiting AlivePaternal GrandmotherSandi HofackerSister 1AliveSister 2AliveSister 3Alive Social History Tobacco UseTypesPacks/DayYears UsedDateSmoking Tobacco: NeverSmokeless Tobacco: Never Tobacco Cessation:Counseling Given: Not Answered Alcohol UseStandard Drinks/WeekCommentsNever0 (1 standard drink = 0.6 oz pure alcohol)Estimated Date of QxlvamafWccggueqCuh56/07/2026ased on UltrasoundSex and Gender InformationValueDate RecordedSex Assigned at BirthNot on fileLegal EphMivzts47/15/2023 10:12 PM EDTGender WumjfmkhEddczm31/22/2023 12:00 PM EDTSexual OrientationNot on file Last Filed Vital Signs Vital SignReadingTime TakenCommentsBlood Hjskepep171/7011 2:08 PM EST Pxtrd688705/09/2024 9:23 AM ESTTemperature--Respiratory Zdei121807/10/2023 9:23 AM ESTOxygen Saturation--Inhaled Oxygen Concentration--Gpbsnn416 kg (246 lb 1.9 oz) 03/26/2025 2:08 PM YNKIynyix574 cm (5' 3 )05/09/2024 9:23 AM ESTBody Mass Index 43.612 9:23 AM EST Plan of Treatment DateTypeDepartmentCare Team (Latest Contact Info)Wigdsnseiss97/11/2025 3:00 PM ESTRoutine [facility] [address] [place] [address] Marcia Naranjo, NETBACKUP ADMINISTRATOR [address] [place] [address] Health MaintenanceDue DateLast DoneCommentsCOVID-19 Vaccine (2024- season) , 11/11/2020, 10/21/2020Influenza Vaccine (#1)2025 02/18/2024, 02/22/2023, 03/14/2020, Additional history existsPneumococcal Vaccine: Pediatrics (0 to 5 Years) and At-Risk Patients (6 to 64 Years)Aged Out No longer eligible based on patient's age to complete this topic Goals GoalPatient Goal TypeAssociated ProblemsRecent ProgressPatient-Stated?Author Reminders Care PlanOB RemindersNoOpen Scheduling, Background Procedures Procedure NamePriorityDate/TimeAssociated DiagnosisCommentsPOCT URINALYSIS EXIUIYLOUktzoip00/10/2025 2:23 PM EST 23 weeks gestation of ([facility]) POCT URINALYSIS KUDOKPVIPffxpwl76/15/2025 2:34 PM EDT Second trimester ([facility]) POCT URINALYSIS KHSLMFFSLalwllv44/17/2025 4:19 PM EDT 15 weeks gestation of ([facility]) Second trimester ([facility]) from Last 3 Months Results * POCT urinalysis dipstick manually resulted (03/26/2025 2:23 PM EST) Only the most recent of3 resultswithin the time period is included. ComponentValueRef RangeTest MethodAnalysis TimePerformed AtPathologist Signature Color, UAYellowClarity, UAClearGlucose, UANegativeNegative - 2000(110) ++++ mg/dLBilirubin, UANegativeNegative - 4(70) +++ mg/dLKetones, UANegativeNegative - 160(16) ++++ mg/dLSpec Grav, UA1.0151 - 1.03Blood, UANegativeNegative - 50 Joshua/mcLpH, UA6.05 - 9Protein, UANegativeNegative - 2000(20) ++++ mg/dL Urobilinogen, UA1.00.2 - 12 mg/dLLeukocytes, UANegativeNegative - 500+++ Diego/mcL Nitrite, UANegativeNegative - PositiveSpecimen (Source)Anatomical Location / LateralityCollection Method / VolumeCollection TimeReceived YehrVtkjk36/10/2025 2:23 PM EST Narrative Authorizing ProviderResult TypeResult StatusCorey Viri DOPOINT OF CARE TEST ENTER/EDIT ORDERABLESFinal Result from Last 3 Months Additional Health Concerns Active ProblemsNoted DateDiagnosed DateOB Dajnfhfyb59/28/2025 Insurance Care Teams Team MemberRelationshipSpecialtyStart DateEnd Hector Dai MD [address] [place] [address] [facility] Twmnfzoj83/22/24
--- OUTSIDE RECORDS SUMMARY | 2025-04-21 09:37 | XMS_ITS ---
Author Organization [facility] Source Produ ction (ClinicalSummary Clone) Address Unknown Care Team Providers Care Electrical Line Mechanic Name Role Phone Unavailable Primary Care Physician Unavailab le Results * [UNITY] ANEUPLOIDY NIPT Performed by: [employer] Component Value Range Date Fraction 5.0% 12/25/2024 04:40 am UTCRh(D) NIPTRhD OCWFPVQQ57/11/2025 04:40 am UTCSex Chromosome AneuploidyNOT LPKHWGUY80/11/2025 04:40 am UTCMonosomy XLOW RISK <1 in 04:40 am UTCTrisomy 13LOW RISK <1 in 04:40 am UTCTrisomy 18LOW RISK <1 in 04:40 am UTCTrisomy 21LOW RISK <1 in 04:40 am UTCFetal ArqOOQE7812/25/2024 04:40 am UTCPregnancy UapklihsgDCQYKMKAK61/11/2025 04:40 am UTCFor detailed report, see PDFSee PDF 12/25/2024 04:40 am UTC12/25/2024 04:40 am UTC Social History Observation Value Start Date End Date
--- OUTSIDE RECORDS SUMMARY | 2025-04-21 09:37 | XMS_ITS | Clinical Summary ---
Author Organization [employer] tem Address [id number] [address] 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 Name Role Phone Hector Dai MD Primary Care Provider [phone] Allergies No known active allergies Medications MedicationSigDispense QuantityRefillsLast FilledStart DateEnd DateStatus ondansetron ODT (ZOFRAN ODT) 4 mg disintegrating tablet DISSOLVE 1 TABLET (4 MG TOTAL) ON TONGUE EVERY 8 HOURS NEEDED FOR NAUSEA AND VOMITING 20 tablet ctive pantoprazole (PROTONIX) 20 mg EC tablet TAKE 1 TABLET (20 MG TOTAL) BY MOUTH IN THE MORNING 90 tablet ctive buPROPion SR (WELLBUTRIN SR) 150 mg 12 hr tablet Take 1 tablet (150 mg total) by mouth in the morning.03/08/2024ctive levothyroxine (SYNTHROID, LEVOTHROID) 175 MCG tablet TAKE 1 TABLET BY MOUTH IN THE MORNING 90 tablet ctive clindamycin-benzoyl peroxide (BENZACLIN) gel APPLY TO AFFECTED AREA TOPICALLY IN THE MORNING AND AT BEDTIME 25 g 4Active clobetasoL (TEMOVATE) 0.05 % cream Apply 1 Application topically in the morning and 1 Application before bedtime. 30 g 5Active liothyronine (CYTOMEL) 5 MCG tablet Take 1 tablet (5 mcg total) by mouth in the morning.Active magnesium oxide (MAGOX) 400 mg tablet Take 1 tablet (400 mg total) by mouth in the morning.Active promethazine (PHENERGAN) 12.5 mg tablet Take 1 tablet (12.5 mg total) by mouth every 6 (six) hours as needed for nausea or vomiting.Active Active Problems ProblemNoted DateDiagnosed IpzpNymxpvywcinf88/04/1555Pdzivukyi84/04/2024 Htotowyreczwt34/04/5002Uusyamktoea99/04/2024Ingrown frppzwe86/04/2024Irregular oxoafxti98/04/1693Keeoqz46/04/2024Symptom associated with female genital organs 02/18/2024Unintended weight loss02/18/20247136Hwemzagl42/04/2024haryngoesophageal ybeyvhplr35/20/2024elayed gastric jggigihx32/20/2024etained food in stomach 02/04/2024COS (polycystic ovarian syndrome)12/31/2023ostoperative onjdksvalkncvk27/13/2024Generalized anxiety rgqfhaoq14/10/2024GERD (gastroesophageal reflux disease)08/25/2023 Overview (08/25/2023): Last Assessment & Plan: Currently controlled with dietary and lifestyle modifications. Moderate major vutjfsptih25/10/2024bnormal thyroid blood test04/15/2022Thyroid opyqcv5006/23/20184685Gvghfy84/26/2018S/P jbzdneaytndlx07/26/9949Lpqnfpchs11/26/2018 Tonsillar otunjhmmxrv33/28/2017History of otitis media05/13/2017Dysfunction of both eustachian tubes05/13/2017Nasal hjitlyddbuw99/28/2017Estimated Date of YwxziemmBjqoqqpjIhu22/07/2026ased on Ultrasound Encounters DateTypeDepartmentCare MrvaOjaoheomduq84/02/2025 12:49 PM EST - 04/17/2025 11:59 PM ESTHospital Encounter [facility] [address] [place] [id number] Encounter for other screening follow-up Discharge Disposition: Home04/15/20258984Eqgulm49/ 12:40 PM EDT - 03/13/2025 11:59 PM EDTHospital Encounter [facility] [address] [place] [address] Thyroid disease affecting Discharge Disposition: Home03/12/2025Travelfrom Last 3 Months Immunizations ImmunizationAdministration DatesNext DueCovid-19, Mrna, Lnp-s, Pf,teresa- sucrose,30 Mcg/0.3ml Mcephmpw98/15/8007IYdF51/04/2008,09/13/2006,06/23/2005, 2004DTaP / IPV09/09/2009HPV Cvtxtkbdejda73/11/8621LZQ631Hep A, 2 Dose12/26/2021Hep B / HIB06/23/2005,2004Hep B, Adolescent or Pediatric 2004Hib (PRP-T)09/13/2006IPV09/13/2006,06/23/2005,2004Influenza (IM) Preservative Free02/18/2024Influenza, Im Trivalent Ovlhdmwzniog87/07/2006 Influenza, Injectable, Yvcwsgcuiwaa22/29/2020Influenza, Injectable, quadrivalent (PF)02/22/2023MMR09/09/2009MMRV09/13/2006Meningococcal Ucvilrmfh95/12/2022 Meningococcal BZU7B3311/25/2015PPD Test12/26/2021,2Pneumococcal Conjugate 09/13/2006,06/23/2005,2004Tdap11/25/20158136Houoklrtl88/26/2010 Family History Medical HistoryRelationNameCommentsSeizuresBrotherNo Known ProblemsFatherBreast cancerMaternal GrandmotherThyroid diseaseMaternal GrandmotherNo Known Problems MotherBreast cancerPaternal GrandmotherRelationNameStatusCommentsBrotherFather AliveMaternal GrandmotherMotherAlivePaternal Grandmother Social History Tobacco UseTypesPacks/DayYears UsedDateSmoking Tobacco: NeverSmokeless Tobacco: Never Tobacco Cessation:Counseling Given: Not Answered Alcohol UseStandard Drinks/WeekCommentsNot Currently0 (1 standard drink = 0.6 oz pure alcohol)Overall Financial Resource Strain (CARDIA)AnswerDate RecordedHow hard is it for you to pay for the very basics like food, housing, medical care, and heating?Not hard at all08/25/2023HQ-2AnswerDate RecordedTotal Score0 4PRAPARE - TransportationAnswerDate RecordedIn the past 12 months, has lack of transportation kept you from medical appointments or from getting medications?No08/25/2023In the past 12 months, has lack of transportation kept you from meetings, work, or from getting things needed for daily living?No 08/25/2023Housing InstabilityAnswerDate RecordedAre you worried or concerned that in the next two months you may not have stable housing that you own, rent or stay in as a part of a household?No4ChildcareAnswerDate Recorded YduiwxenkXgaabib26/06/2019EmploymentAnswerDate RecordedEmploymentUnknown 10/20/2018Hunger ScreeningAnswerDate RecordedWithin the past 12 months we worried whether our food would run out before we got money to buy more.Never True12/29/2024Within the past 12 months the food we bought just didn't last and we didn't have money to get more.Never True12/29/2024Purpose - LifeAnswerDate RecordedPurpose and direction in ahvjNbeavkm63/11/2021Estimated Date of AudphmhqUbjdutzyCew81/07/2026Based on UltrasoundSex and Gender InformationValue Date RecordedSex Assigned at BirthNot on fileLegal BbiXhcfgy75/14/2017 2:44 PM ESTGender IdentityNot on fileSexual OrientationNot on file Last Filed Vital Signs Vital SignReadingTime TakenCommentsBlood Cvfkrhqo328/59012/29/2024 10:06 AM EDT Zdtwt485712/29/2024 10:06 AM DKYDbzadvmzlst48.9 ??C (98.4 ??F)10/12/2024 12:32 PM EDTRespiratory Blcq253510/12/2024 12:32 PM EDTOxygen Gpqxgvxmjj703%10/12/2024 12:32 PM EDTInhaled Oxygen Concentration--Sykatd129.2 kg (234 lb 3.2 oz) 12/29/2024 10:06 AM DKFVczmwf585 cm (5' 2.99 )12/29/2024 10:06 AM EDTBody Mass Index41.5012/29/2024 10:06 AM EDT Plan of Treatment Health MaintenanceDue DateLast DoneCommentsAdult BMI Follow Up Plan2022 Chlamydia Hicozwkwx66/OVID-19 Vaccine ( season) , 11/11/2020, 10/21/2020Influenza Qowhonn5801/15/2025 02/18/2024, 02/22/2023, 03/14/2020, Additional history existsDepression Lcefftlfa774RSV ( or age 60+ yrs) (1 - Risk 1- dose series)05/26/2025DTaP,Tdap and Td Vaccines (7 - Td or Tdap)11/24/2025 11/25/2015, 09/09/2009, 06/20/2007, Additional history existsAdult BMI Screening Tobacco Frfcmknck00 Medical Devices Not on file Procedures Procedure NamePriorityDate/TimeAssociated DiagnosisCommentsUS [facility] OB FOLLOW[facility]UP, 1 EBOYMSbhiadg47/02/2025 2:06 PM EST Encounter for other screening follow-up [facility] COMPREHENSIVE ANATOMIC YHLOVHWhesjnq80/28/2025 2:08 PM EDT Thyroid disease affecting from Last 3 Months Results * [facility] OB FOLLOW-UP, 1 FETUS (04/17/2025 2:06 PM EST) Only the most recent of2 resultswithin the time period is included. Anatomical RegionLateralityModalityOB-GYNUltrasoundSpecimen (Source)Anatomical Location / LateralityCollection Method / VolumeCollection TimeReceived Time 04/17/2025 1:00 PM EST Narrative 04/18/2025 5:23 PM EST NAME: ??DILCIA GONCALVES I : 2005 SEX: F Accession Number: [id number] ORDERING PHYSICIAN: JAVIER LOYA REFERRING PHYSICIAN: ADOLFO JAIN Coding Procedures ? [id number]: Ultrasound, uterus, real time with image documentation, [...] (oz) ? 5 oz EFW by: ?Hadlock (IBA-WN-BY-FL) Extended Tibia ??42.9 mm 26w 4d 51% Opal Metal Mine Inspector ? 7.2 mm CM ? 5.2 mm [...] view. RVOT view. LVOT view. 3-vessel view. 1-lqtoam-petkhma view. Situs. Ductal arch view. ? Interventricular [...] MVP measures 7 cm.p Recommendations Please see [facility] recommendations from prior clinical and/or ultrasound report documentation. Follow up growth ultrasounds to be done in referring OB office. Subsequent follow up or other follow up as clinically determined by primary OB provider unless otherwise specified by [facility]. Results forwarded to ordering provider so they can follow up with the patient as necessary. Procedure Note Norma Andrews MD - 04/18/2025 NAME: DILCIA GONCALVES I : 2005 SEX: F Accession Number: [id number] ORDERING PHYSICIAN: JAVIER LOYA REFERRING PHYSICIAN: ADOLFO JAIN Coding Procedures [id number]: Ultrasound, uterus, real time with image documentation, [...] EFW (oz) 5 oz EFW by: Hadlock (VFX-OR-OK-FL) Extended Tibia 42.9 mm 26w 4d 51% Opal Metal Mine Inspector 7.2 mm CM 5.2 mm 17% Nicolaides [...] view. RVOT view. LVOT view. 3-vessel view. 7-lvarlq-itzqggj view. Situs. Ductal arch view. Interventricular septum. [...] MVP measures 7 cm.p Recommendations Please see M recommendations from prior clinical and/or ultrasoundreport documentation. Follow up growth ultrasounds to be done in referring OB office. Subsequent follow up or other follow up as clinically determined byprimary OB provider unless otherwise specified by M[facility]. Results forwarded to ordering provider so they can follow up with thepatient as necessary. Authorizing ProviderResult TypeResult RomeroJavier Reynaldo MEEHANIMShanel US ORDERABLES Final Result from Last 3 Months Insurance Care Teams Team MemberRelationshipSpecialtyStart DateEnd Date Hector Dai MD [address] [place] [address] PCP - GeneralFamily Medicine10/12/24
--- OUTSIDE RECORDS SUMMARY | 2025-04-21 09:37 | XMS_ITS | Encounter Summary ---
Author Organization [employer] tem Address [id number] [address] 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 Name Role Phone Hector Dai MD Primary Care Provider [phone] Encounter Details DateTypeDepartmentCare Team (Latest Contact Info)Yyhaskbzhyn24/30/2025Travel Social History Tobacco UseTypesPacks/DayYears UsedDateSmoking Tobacco: NeverSmokeless Tobacco: NeverAlcohol UseStandard Drinks/WeekCommentsNot Currently0 (1 standard drink = 0.6 oz pure alcohol)Overall Financial Resource Strain (CARDIA)AnswerDate RecordedHow hard is it for you to pay for the very basics like food, housing, medical care, and heating?Not hard at all08/25/2023HQ-2AnswerDate RecordedTotal Oqfxh52305/31/2023RAPARE - TransportationAnswerDate RecordedIn the past 12 months, [...] stay in as a part of a household?No08/25/2023hildcareAnswer Date AuvdexfmYtntptcmcGoacdtw97/06/2019EmploymentAnswerDate RecordedEmployment Lynwafc0810/20/2018Hunger ScreeningAnswerDate RecordedWithin the past 12 months we worried whether our food would run out before we got money to buy more.Never True12/29/2024Within the past 12 months the food we bought just didn't last and we didn't have money to get more.Never True12/29/2024Purpose - LifeAnswerDate RecordedPurpose and direction in vcplSzzlqpk74/11/2021Estimated Date of JritrhxcVpknwshwGkc93/07/2026Based on UltrasoundSex and Gender InformationValue Date RecordedSex Assigned at BirthNot on fileLegal TacAwkbhx18/14/2017 2:44 PM ESTGender IdentityNot on fileSexual OrientationNot on filedocumented as of this encounter Plan of Treatment Not on file documented as of this encounter Visit Diagnoses Not on filedocumented in this encounter Additional Health Concerns AssessmentNoted TimePHQ-9 Depression Total Score: 8:44 AM EST documented as of this encounter Care Teams Team MemberRelationshipSpecialtyStart DateEnd Date Hector Dai MD [address] [place] [address] PCP - GeneralFamily Medicine10/12/24documented as of this encounter
--- OUTSIDE RECORDS SUMMARY | 2025-04-21 09:37 | XMS_ITS | Encounter Summary ---
Author Organization [facility] Address [address] [place] [address] Care Team Providers Care Pewter Fabricator Name Role Phone Hector Dai MD Primary Care Provider [phone] Reason for Visit * ReasonOnset DateCommentsMed Scguve6404/18/2025 Encounter Details DateTypeDepartmentCare Team (Latest Contact Info)Oslqwmrufpx81/03/2025Refill [facility] [place] [facility] [address] [place] [address] Loretta Winkler MD [address] [place] [address] Postoperative hypothyroidism Social History Tobacco UseTypesPacks/DayYears UsedDateSmoking Tobacco: NeverSmokeless Tobacco: NeverAlcohol UseStandard Drinks/WeekCommentsNever0 (1 standard drink = 0.6 oz pure alcohol)Estimated Date of CqegcirvMdqpjaofKrg68/07/2026Based on UltrasoundSex and Gender InformationValueDate RecordedSex Assigned at BirthNot on fileLegal YldAqfdfs25/15/2023 10:12 PM EDTGender VqfuoprkZvgxct06/22/2023 12:00 PM EDTSexual OrientationNot on filedocumented as of this encounter Miscellaneous Notes * Telephone Encounter - Karrie Brandon LPN - 04/18/2025 1:21 PM EST MEDICATION SENT TO PHARMACY. documented in this encounter Plan of Treatment DateTypeDepartmentCare Team (Latest Contact Info)Zsgwamfwhxm10/11/2025 3:00 PM ESTRoutine [facility] [address] [place] [address] Marcia Naranjo, SUMA [address] [place] [address] documented as of this encounter Goals GoalPatient Goal TypeAssociated ProblemsRecent ProgressPatient-Stated?Author Reminders Care PlanOB RemindersNoOpen Scheduling, Backgrounddocumented as of this encounter Visit Diagnoses Diagnosis Postoperative hypothyroidism Postsurgical hypothyroidism documented in this encounter Additional Health Concerns Active ProblemsNoted DateDiagnosed DateOB Hpjmvgdvo86/28/2025 documented as of this encounter Care Teams Team MemberRelationshipSpecialtyStart DateEnd Date Hector Dai MD [address] [facility] [place] [id number] PCP - GeneralFamily Kxpcogct66/22/24documented as of this encounter
[2025-04-21 11:00] LABS: Hematocrit 33.8 % (36.0-48.0); Hemoglobin 10.9 g/dL (12.0-16.0); Immature Granulocytes Abs Auto 0.10 10^3/uL (0.00-0.03); Immature Granulocytes Pct Auto 1.3 % (0.0-0.5); Lymphocytes Absolute Auto 1.6 10^3/uL (1.2-3.8); Mean Corpuscular HGB Conc 32.2 g/dL (29.9-35.2); Mean Corpuscular Hemoglobin 28.0 pg (26.7-34.0); Mean Corpuscular Volume 86.9 fL (81.0-99.0); Platelet Count 209 10^3/uL (150-450); Red Blood Count 3.89 10^6/uL (4.20-5.40); White Blood Count 7.5 10^3/uL (4.0-11.0)
[2025-04-21 11:10] LABS: Glucose 1 Hour 105 mg/dL (<130)
== END 2025-04-21 09:32 | disposition home or self-care (01) ==
LOC: LAB 09:33
PROVIDERS: PCP Family Medicine; Visit Provider Obstetrics & Gynecology
DX: Z34.92 Encounter for supervision of normal pregnancy, unspecified, second trimester (principal); E07.9 Disorder of thyroid, unspecified; Z98.890 Other specified postprocedural states; Z90.89 Acquired absence of other organs; Z13.1 Encounter for screening for diabetes mellitus
CPT/HCPCS: 36415; 82950; 84443; 85025